=== PATIENT | female | born 1940 | race Caucasian/White ===

== ENCOUNTER 2016-08-16 11:20 | Outpatient (RCR) | payer MEDICARE, OTHER ==
[~2016-08-16] VITALS: Ht 160 cm; Wt 77.1 kg
[~2016-08-16 11:20] MED LIST: ASCO-281 PO; ASCO500T20 PO; ASP325T; ASP81TEC PO; ATRV10T; ATRV10T PO; C250T; CALC600T; CEPH500C PO; CLD600T PO; CYAN10006 PO; CYAN500L PO; DCS100C PO; DULA1.5P2 SQ; EZET10TA5 PO; FENO145T2; FENO48TA2; FRSM40T PO; FURO40TA4; FURO40TA4 PO; LEVO25TA5 PO; LORA1TAB59 PO; LOSA25TA21 PO; LRT10T; LVT.05T PO; METF-380 PO; MNTL10T PO; MTF500T; MTF500T PO; MTP25TSR PO; MULT-963 PO; NF-ESOM40C; NF-ESOM40C PO; NF-PILO5T PO; OMG1KC; OMG1KC PO; OXAZ10CA25 PO; PILOCARPINE HCL 5 MG; POTA10CA43 PO; PROBIOTIC1 EACH PO; RMP2.5C; ROSU5TAB PO; SCR1T1; VENL150C53 PO; VENL150T PO; VENL75CA93 PO; VENL75TA2 PO; VNL75T; VRP240TCR; [UNRECOGNIZED DRUG - OTHER]
== END 2016-11-14 | disposition home or self-care (01) ==
LOC: DSME 11:20
PROVIDERS: ATTEND Nurse Practitioner Family
DX: E11.65 Type 2 diabetes mellitus with hyperglycemia (principal); I10 Essential (primary) hypertension

== ENCOUNTER → 2016-11-06 | Outpatient (CLI) | payer MEDICARE, OTHER ==
[~2016-11-06] VITALS: Ht 160 cm; Wt 75.7 kg
[~2016-11-06] MED LIST changes: +NS IV 1000 ML 1,000 ML IV NR; +NS IV 1000 ML 1,000 ML ONE
[2016-11-06 17:05] VITALS: BP 134/71
[2016-11-06 17:12] VITALS: BP 134/71
[2016-11-06 17:31] VITALS: BP 134/71
--- NOTE | 2016-11-06 17:37 | Diagnostic Imaging Report ---
INDICATION: Malaise, fatigue, dehydration. FINDINGS: The lungs are clear. Heart size and vascularity are within normal limits. There is no failure, effusion, or pneumothorax. No free air beneath the diaphragms. No change from study of 04/11/2016. IMPRESSION: Stable negative chest. Dictated by: Dictated on workstation # [id number]
[2016-11-06 17:38] LABS: MEAN PLATELET VOLUME 9.6 FL (7.4-10.4); RED BLOOD COUNT 4.95 10^6/uL (4.35-5.85); RED CELL DISTRIBUTION WIDTH 15.1 % (10.0-14.5); WHITE BLOOD COUNT 7.2 10^3/uL (4.3-11.0)
[2016-11-06 17:58] LABS: ALBUMIN 4.5 G/DL (3.2-4.5); BILIRUBIN,TOTAL 0.4 MG/DL (0.1-1.0); CALCIUM 10.4 MG/DL (8.5-10.1); CREATININE SERUM 1.18 MG/DL (0.60-1.30); POTASSIUM 3.9 MMOL/L (3.6-5.0); TOTAL PROTEIN 7.3 G/DL (6.4-8.2)
[2016-11-06 18:12] LABS: BILIRUBIN,URINE NEGATIVE (NEGATIVE); KETONES,URINE NEGATIVE (NEGATIVE); LEUKOCYTE ESTERASE ,URINE NEGATIVE (NEGATIVE); NITRITE,URINE NEGATIVE (NEGATIVE); PH,URINE 6.5 (5-9); PROTEIN,URINE NEGATIVE (NEGATIVE); UROBILINOGEN,URINE NORMAL (NORMAL)
[2016-11-06 18:20] LABS: SQUAMOUS EPITHELIAL CELL,UR RARE /HPF
[2016-11-06 18:35] VITALS: BP 134/71
== END ==
LOC: SDC 16:51
PROVIDERS: ATTEND Nurse Practitioner Family
DX: E86.0 Dehydration (principal); R53.81 Other malaise; R53.83 Other fatigue
CPT/HCPCS: 36415; 71020; 80053; 81000; 82607; 83735; 85027; 96361; 96365

== ENCOUNTER → 2018-01-14 | Outpatient (CLI) | payer MEDICARE, OTHER ==
[~2018-01-14] MED LIST changes: -NS IV 1000 ML 1,000 ML IV NR; -NS IV 1000 ML 1,000 ML ONE
== END ==
LOC: CARD 14:38
PROVIDERS: ATTEND Internal Medicine Cardiovascular Disease
DX: R00.2 Palpitations (principal); R06.02 Shortness of breath
CPT/HCPCS: 93225; 93226

== ENCOUNTER 2018-04-16 19:48 | Outpatient (CLI) | payer MEDICARE, OTHER ==
[~2018-04-16 19:48] MED LIST changes: -LOSA25TA21 PO; +LOSA25TA6 PO
== END 2018-04-17 06:15 | disposition home or self-care (01) ==
LOC: SLEEP 19:48
PROVIDERS: ATTEND Family Medicine
DX: G47.33 Obstructive sleep apnea (adult) (pediatric) (principal); G47.36 Sleep related hypoventilation in conditions classified elsewhere; R06.83 Snoring; I10 Essential (primary) hypertension; G47.10 Hypersomnia, unspecified
CPT/HCPCS: 95810

== ENCOUNTER → 2018-05-27 | Outpatient (CLI) | payer MEDICARE, OTHER ==
--- NOTE | 2018-05-27 11:26 | Diagnostic Imaging Report ---
INDICATION: Cough. PA and lateral views of the chest were obtained. FINDINGS: Heart size is normal. Mediastinum is unremarkable. Lungs are clear. There is no pleural effusion or pneumothorax. IMPRESSION: No acute cardiopulmonary abnormality. Mild cardiomegaly. Dictated by: Dictated on workstation # [id number]
== END ==
LOC: RAD 10:49
PROVIDERS: ATTEND Nurse Practitioner Family
DX: I51.7 Cardiomegaly (principal); R05 Cough
CPT/HCPCS: 71046

== ENCOUNTER → 2018-12-23 | Outpatient (CLI) | payer MEDICARE, OTHER ==
[~2018-12-23] MED LIST changes: +LOSA25TA41 PO; -LOSA25TA6 PO
--- NOTE | 2018-12-23 17:12 | Diagnostic Imaging Report ---
INDICATION: Fall. Pain. COMPARISON: None. FINDINGS: Frontal and lateral views of the thoracic spine were obtained. Visualization of the upper thoracic spine is limited on the lateral projection. Alignment and vertebral heights are maintained. There is no fracture or destructive process. There are no large paraspinal masses. Mild multilevel degenerative disease is noted in the thoracic spine. Limited views of the lungs are clear. IMPRESSION: 1. No acute fracture or dislocation of the thoracic spine. 2. Mild multilevel degenerative changes. Dictated by: Dictated on workstation # [id number]
--- NOTE | 2018-12-23 17:14 | Diagnostic Imaging Report ---
INDICATION: Fall. Pain. COMPARISON: None. FINDINGS: Three views of the right ribs were obtained. There is no fracture, dislocation, or other acute bony abnormality identified. Visualized portions of the right lung are clear. The surrounding soft tissues appear unremarkable. No radiopaque foreign bodies are seen. IMPRESSION: No healing or displaced right-sided rib fractures. Dictated by: Dictated on workstation # [id number]
== END ==
LOC: RAD 14:12
PROVIDERS: ATTEND Family Medicine
DX: M47.814 Spondylosis without myelopathy or radiculopathy, thoracic region (principal); R07.81 Pleurodynia; W19.XXXA Unspecified fall, initial encounter
CPT/HCPCS: 71100; 72072

== ENCOUNTER 2019-05-07 12:48 | Outpatient (RCR) | payer MEDICARE, OTHER ==
[~2019-05-07 12:48] MED LIST changes: +CYAN-41 PO; -CYAN10006 PO
== END 2019-08-05 | disposition home or self-care (01) ==
LOC: CARD 12:48
PROVIDERS: ATTEND Physician Assistant
DX: I07.1 Rheumatic tricuspid insufficiency (principal); I10 Essential (primary) hypertension; E78.2 Mixed hyperlipidemia; R00.2 Palpitations
CPT/HCPCS: 93306

== ENCOUNTER 2019-07-18 13:27 | Emergency (ER) | payer MEDICARE, OTHER ==
[~2019-07-18] VITALS: Ht 163 cm; Wt 75.0 kg
--- NOTE | 2019-07-18 13:57 | ED Fall/Injury ---
General Chief Complaint: Trauma-Non Activation Stated Complaint: FALL Nursing Triage Note: Patient reports falling and hitting her head. she is unsure of what caused her to fall or the events that happened after. Source: patient Exam Limitations: no limitations History of Present Illness Date Seen by Provider: Jul 18, 2019 Time Seen by Provider: 13:33 Initial Comments Patient presents to ER by EMS, [place] with chief complaint of a fall. She does not remember the fall. She is never going up to pay a water bill and then woke up to people standing over her. No history of syncope. No chest pain shortness of breath nausea but she did lose continence of bowel and bladder. No history of epilepsy. EMS reports she has a large hematoma over her left eyebrow. She is on aspirin but no other blood thinners. She denies dysuria, fevers, chills. She has a history of cervical spinal surgery with rods placed. Dr. Jacobo was the surgeon. Allergies and Home Medications Allergies Coded Allergies: ramipril (Unverified Allergy, Mild, 01/22/09) No Known Drug Allergies (Verified , 02/26/08) Home Medications Ascorbic Acid 1,000 Mg Tablet, 1,000 MG PO DAILY, (Reported) Aspirin 81 Mg Tablet, 81 MG PO DAILY, (Reported) Cyanocobalamin (Vitamin B-12) 1,000 Mcg Tablet, 2,000 MCG PO DAILY, (Reported) Docusate Sodium 100 Mg Capsule, 100 MG PO HS, (Reported) Dulaglutide 1.5 Mg/0.5 Ml Pen.injctr, 1.5 MG SQ Th, (Reported) Esomeprazole Mag Trihydrate 40 Mg Capsule.dr, 40 MG PO BID, (Reported) Ezetimibe 10 Mg Tablet, 10 MG PO HS, (Reported) Furosemide 40 Mg Tablet, 40 MG PO Q48H, (Reported) Furosemide 40 Mg Tablet, 20 MG PO Q48H, (Reported) TAKES 1/2 (40MG) TABLET Levothyroxine Sodium 25 Mcg Tablet, 25 MCG PO DAILY, (Reported) Loratadine/Pseudoephedrine Sul 1 Each Tab.sr.12h, 1 TAB PO BID, (Reported) Losartan Potassium 25 Mg Tablet, 25 MG PO HS, (Reported) Metoprolol Succinate 25 Mg Tab.sr.24h, 25 MG PO HS, (Reported) Montelukast Sodium 10 Mg Tablet, 10 MG PO DAILY, (Reported) Multivitamin 1 Each Tablet, 1 TAB PO DAILY, (Reported) Alpine 3 Polyunsat Fatty Acids 1,000 Mg Cap, 2,000 MG PO BID, (Reported) TAKES 2 (1000MG) CAPSULES Pilocarpine Hcl 5 Mg Tablet, 5 MG PO BID, (Reported) Potassium Chloride 10 Meq Capsule.sa, 10 MEQ PO DAILY, (Reported) Venlafaxine HCl 75 Mg Cap.er.24h, 75 MG PO DAILY, (Reported) Patient Home Medication List Home Medication List Reviewed: Yes Review of Systems Review of Systems Constitutional: No chills, No fever Eyes: Denies Blindness, Denies Blurred Vision Ears, Nose, Mouth, Throat: denies ear pain, denies ear discharge Respiratory: No cough, No short of breath Cardiovascular: No chest pain, No edema, No Hx of Intervention, No palpitations Gastrointestinal: No abdominal pain, No constipation, No diarrhea, No nausea, No vomiting Genitourinary: No discharge, No dysuria Musculoskeletal: see HPI, back pain; No neck pain Skin: No pruritus, No rash Psychiatric/Neurological: Denies Anxiety, Denies Depressed All Other Systems Reviewed Negative Unless Noted: Yes Past Fmbijbv-Oolcsc-Qpydcd Hx Patient Social History Alcohol Use: Denies Use Recreational Drug Use: No Smoking Status: Never a Smoker Former Smoker, Quit: Apr 11, 1993 Recent Foreign Travel: No Contact w/Someone Who Travel: No Recent Infectious Disease Expo: No Recent Hopitalizations: Yes Immunizations Up To Date Date of Pneumonia Vaccine: Apr 11, 2013 Date of Influenza Vaccine: Sep 07, 2016 Past Medical History Surgeries: Yes (HYSTERECTOMY,R ROTATOR CUFF,IMPLANTS IN GUMS) Respiratory: No Cardiac: Yes Neurological: Yes Reproductive Disorders: No Gastrointestinal: No Colitis Musculoskeletal: Yes Endocrine: Yes Cancer: Yes (breast) Breast Psychosocial: Yes Blood Disorders: Yes Physical Exam Vital Signs Vital Signs - First Documented 07/18/19 13:44 Temp 36.8 Pulse 72 Resp 18 B/P (MAP) 122/65 (84) Pulse Ox 95 Capillary Refill : Less Than 3 Seconds Height, Weight, BMI Height: 5'3.00" Weight: 167lbs. 0.0oz. 75.559696rw; 28.00 BMI Method: General Appearance: WD/WN, mild distress HEENT: PERRL/EOMI (3 mm bilateral, symmetric), normal ENT inspection, TMs normal, pharynx normal, other (negative for Myrick sign or hemotympanum. She has a large soft tissue hematoma on the superior lateral portion of her left orbit) Neck: non-tender, other (c-collar precautions are in place) Cardiovascular: normal peripheral pulses, regular rate, rhythm Respiratory: chest non-tender, lungs clear, normal breath sounds, no respiratory distress, no accessory muscle use Peripheral Pulses: 2+ Dorsalis Pedis (R), 2+ Left Dors-Pedis (L), 2+ Radial Pulses (R), 2+ Radial Pulses (L) Gastrointestinal: normal bowel sounds, non tender, soft Back: normal inspection, vertebral tenderness (mild midline tenderness in the thoracic and upper lumbar spine) Neurologic/Psychiatric: transmission operator II-XII nml as tested, no motor/sensory deficits, alert, normal mood/affect, oriented x 3, other (GCS 14. Eyes closed at rest) Skin: ecchymosis (left orbit) Eden Coma Score Best Eye Response: (3) Open to Voice Best Verbal Response: (5) Oriented Best Motor Response: (6) Obeys Commands Progress/Results/Core Measures Results/Orders Lab Results Laboratory Tests Test 07/18/19 13:50 07/18/19 13:52 Range/Units White Blood Count 5.4 4.3-11.0 10^3/uL Red Blood Count 4.04 L 4.35-5.85 10^6/uL Hemoglobin 11.1 L 11.5-16.0 G/DL Hematocrit 33 L 35-52 % Mean Corpuscular Volume 83 80-99 FL Mean Corpuscular Hemoglobin 27 25-34 PG Mean Corpuscular Hemoglobin Concent 33 32-36 G/DL Red Cell Distribution Width 15.1 H 10.0-14.5 % Platelet Count 291 130-400 10^3/uL Mean Platelet Volume 8.8 7.4-10.4 FL Neutrophils (%) (Auto) 74 42-75 % Lymphocytes (%) (Auto) 18 12-44 % Monocytes (%) (Auto) 7 0-12 % Eosinophils (%) (Auto) 1 0-10 % Basophils (%) (Auto) 1 0-10 % Neutrophils # (Auto) 4.0 1.8-7.8 X 10^3 Lymphocytes # (Auto) 1.0 1.0-4.0 X 10^3 Monocytes # (Auto) 0.4 0.0-1.0 X 10^3 Eosinophils # (Auto) 0.1 0.0-0.3 10^3/uL Basophils # (Auto) 0.0 0.0-0.1 10^3/uL Sodium Level 141 135-145 MMOL/L Potassium Level 4.1 3.6-5.0 MMOL/L Chloride Level 105 98-107 MMOL/L Carbon Dioxide Level 27 21-32 MMOL/L Anion Gap 9 5-14 MMOL/L Blood Urea Nitrogen 15 7-18 MG/DL Creatinine 1.06 0.60-1.30 MG/DL Estimat Glomerular Filtration Rate 50 BUN/Creatinine Ratio 14 Glucose Level 100 70-105 MG/DL Calcium Level 10.0 8.5-10.1 MG/DL Corrected Calcium 9.7 8.5-10.1 MG/DL Total Bilirubin 0.3 0.1-1.0 MG/DL Aspartate Amino Transf (AST/SGOT) 18 5-34 U/L Alanine Aminotransferase (ALT/SGPT) 15 0-55 U/L Alkaline Phosphatase 45 40-136 U/L Troponin I < 0.028 <0.028 NG/ML C-Reactive Protein High Sensitivity 0.11 0.00-0.50 MG/DL B-Type Natriuretic Peptide 38.0 <100.0 PG/ML Total Protein 6.8 6.4-8.2 GM/DL Albumin 4.4 3.2-4.5 GM/DL Serum Alcohol < 10 <10 MG/DL Glucometer 104 70-110 MG/DL My Orders Orders - DANA CANCINO Ct Thoracic/Lumbar Spine Wo (07/18/19 13:50) Ed Iv/Invasive Line Start (07/18/19 13:50) Chest 1 View, Ap/Pa Only (07/18/19 13:50) Alcohol (07/18/19 13:50) BNP (07/18/19 13:50) Cbc With Automated Diff (07/18/19 13:50) Comprehensive Metabolic Panel (07/18/19 13:50) Hs C Reactive Protein (07/18/19 13:50) Drug Screen Stat (Urine) (07/18/19 13:50) Ua Culture If Indicated (07/18/19 13:50) Troponin I (07/18/19 13:50) Ekg Tracing (07/18/19 13:50) Continuous Ekg Monitoring (07/18/19 13:50) Accucheck Stat ONCE (07/18/19 13:50) Ct Head/Face/Cervical Wo (07/18/19 14:03) Dipht,Pertuss(Acell),Tet Adult (Boostrix (07/18/19 15:45) Fentanyl Injection (Sublimaze Injection (07/18/19 15:45) Ondansetron Injection (Zofran Injectio (07/18/19 15:52) Vital Signs/I&O 07/18/19 07/18/19 13:44 16:03 Temp 36.8 Pulse 72 79 Resp 18 12 B/P (MAP) 122/65 (84) 119/68 Pulse Ox 95 98 Blood Pressure Mean: 84 POS Progress Progress Note #1: Time: 14:[address] of the head, C-spine and facial bones. CT of the thoracic and lumbar spine as well as x-ray of the chest. She is resting comfortably with family at her bedside. We'll check urine and blood including a BNP, troponin, EKG as a syncopal workup potentially. Unknown whether she had a syncopal episode and then fell or she fell and then had a syncopal episode. No one saw any seizure like activity. Progress Note #2: Time: 15:30 Progress Note C-collar removed by clinical and radiologic exam. Patient is still neurovascularly intact GCS 15. Family at bedside and updated. Discussed transit to [place] for neurosurgery consult and she agrees to do this. Dr. García is the surgeon who did her neck. She's having a headache related to the swelling and bruising of her left face over to give her an ice pack and a 50 g dose of fentanyl. We will get her up-to-date with her tetanus shot. We'll clean up the small skin tear on her left hand ulnar side. Initial ECG Impression Date: Jul 18, 2019 Initial ECG Impression Time: 13:45 Initial ECG Rate: 81 Initial ECG Intervals: PA (252) Initial ECG Impression: Nonspecific Changes Comment First-degree AV block with QTC of [address] elevation or depression. Diagnostic Imaging Diagonstic Imaging: Xray Plain Films/CT/US/NM/MRI: chest (1v) Comments NAME: NICKOLAS DEE [facility] REC#: [id number] PT STATUS: REG ER : 1940 PHYSICIAN: DANA CANCINO MD ADMIT DATE: 07/18/19/ER Signed POSDate of Exam:07/18/19 CHEST 1 VIEW, AP/PA ONLY EXAMINATION: Chest 1 view HISTORY: Fall. Mid thoracic pain. COMPARISON: 05/27/2018. FINDINGS: The lung volumes are normal. No focal consolidation is seen. No large pleural effusion or pneumothorax is seen. The cardiomediastinal silhouette is normal in size and contour. No acute osseous abnormality is seen. IMPRESSION: 1. No acute pleuroparenchymal process. Dictated by: Dictated on workstation # [id number] Dict: 07/18/19 1504 Trans: 07/18/19 1504 [facility] [id number] Interpreted by: HÉCTOR ROJAS DO Electronically signed by: HÉCTOR ROJAS DO 07/18/19 1504 Reviewed: Reviewed by Nc Diagonstic Imaging: CT (without IV contrast) Plain Films/CT/US/NM/MRI: facial bones, c-spine, head Comments NAME: NICKOLAS DEE [facility] REC#: [id number] PT STATUS: [facility] ER : 1940 PHYSICIAN: DANA CANCINO MD ADMIT DATE: 07/18/19/ER Draft POSDate of Exam:07/18/19 CT HEAD/FACE/CERVICAL WO PROCEDURE: CT head, face, and cervical spine without contrast. TECHNIQUE: Multiple contiguous axial images were obtained through the head, neck, and facial bones without the use of intravenous contrast. Sagittal and coronal reformations through the cervical spine and facial bones were also performed. Auto Exposure Controls were utilized during the CT exam to meet ALARA standards for radiation dose reduction. INDICATION: Fall. Head and neck injury. Facial pain. COMPARISON: None. CT head: There is a tiny bilateral superior parietal subarachnoid hemorrhage. There is likely a tiny focus of subarachnoid hemorrhage in the left anterior frontal lobe. The ventricular size is normal. No extra-axial fluid collection is identified. There is no midline shift or mass effect. Large left frontal scalp hematoma is seen. There is no underlying skull fracture. Visualized globes are intact. Paranasal sinuses and mastoids are clear. IMPRESSION: 1. Left frontal and biparietal trace subarachnoid hemorrhage. The pattern is compatible with trauma. 2. No midline shift, mass effect or extra-axial fluid collection. 3. No skull fracture. CT face: Nasal septum is well aligned. The orbits are symmetric. No facial fracture is seen. There is minimal mucosal thickening in the maxillary sinuses. The mandible is intact. IMPRESSION: No facial fracture identified. CT cervical spine: Alignment is normal. There are postoperative changes involving the left lamina at C4, C5 and C6. Moderate degenerative changes are present. There is no osseous lesion or paraspinous mass. IMPRESSION: No traumatic malalignment or fracture. Report called to the Emergency Room. Dictated on workstation # [id number] Dict: 07/18/19 1446 Trans: 07/18/19 1457 [facility] [id number] Interpreted by: SABINO KEYS Electronically signed by: Reviewed: Reviewed by Me Diagonstic Imaging: CT Plain Films/CT/US/NM/MRI: other (thoracolumbar spine) Comments NAME: NICKOLAS DEE [facility] REC#: [id number] PT STATUS: REG ER : 1940 PHYSICIAN: DANA CANCINO MD ADMIT DATE: 07/18/19/ER Signed POSDate of Exam:07/18/19 CHEST 1 VIEW, AP/PA ONLY EXAMINATION: Chest 1 view HISTORY: Fall. Mid thoracic pain. COMPARISON: 05/27/2018. FINDINGS: The lung volumes are normal. No focal consolidation is seen. No large pleural effusion or pneumothorax is seen. The cardiomediastinal silhouette is normal in size and contour. No acute osseous abnormality is seen. IMPRESSION: 1. No acute pleuroparenchymal process. Dictated by: Dictated on workstation # [id number] Dict: 07/18/19 1504 Trans: 07/18/19 1504 PC1 [id number] Interpreted by: HÉCTOR ROJAS DO Electronically signed by: HÉCTOR ROJAS DO 07/18/19 1504 Reviewed: Reviewed by Me Consults : Consulting Physician: JULIÁN DE PAZ MD Consults Notes Discussed case lab imaging findings with Dr. De Paz, trauma surgery and he agrees with transfer to appropriate facility with neurology such as [facility]. Departure Impression Primary Impression: Fall Qualified Codes: W19.XXXA - Unspecified fall, initial encounter Additional Impressions: Amnesia (retrograde) Syncope Qualified Codes: R55 - Syncope and collapse Traumatic hematoma of face Qualified Codes: S00.83XA - Contusion of other part of head, initial encounter Disposition: 02 XFER SHT-TRM HOSP Condition: Stable Transfer Transfer Reason: Exceeds level of care (Neurosurgery Consult) Time Spoke to Accepting Phy: 15:20 Transfer Progress Notes 1505: Paged Dr García, Neurosurgery. [facility] [place] 1512: Discussed with [facility] and they accepted to ER. ED Dr Edmond. 1520: Discussed case with Dr. Germain, ED doctor and he agrees to accept the patient. Transfer Time: 16:20 [place] [facility] [place] Method of Transfer: [facility] Departure-Patient Inst. Referrals: VINOD SERNA MD (PCP/Family) Primary Care Physician DANA CANCINO Jul 18, 2019 13:57 POS
[2019-07-18 14:01] LABS: BASOPHILS % (AUTO) 1 % (0-10); EOSINOPHILS # (AUTO) 0.1 10^3/uL (0.0-0.3); EOSINOPHILS % (AUTO) 1 % (0-10); HEMATOCRIT 33 % (35-52); HEMOGLOBIN 11.1 G/DL (11.5-16.0); LYMPHOCYTES % (AUTO) 18 % (12-44); MEAN CORPUSCULAR HGB CONC 33 G/DL (32-36); MEAN CORPUSCULAR VOLUME 83 FL (80-99); MEAN PLATELET VOLUME 8.8 FL (7.4-10.4); MONOCYTES # (AUTO) 0.4 X 10^3 (0.0-1.0); MONOCYTES % (AUTO) 7 % (0-12); NEUTROPHILS % (AUTO) 74 % (42-75); PLATELET COUNT 291 10^3/uL (130-400); RED CELL DISTRIBUTION WIDTH 15.1 % (10.0-14.5); WHITE BLOOD COUNT 5.4 10^3/uL (4.3-11.0)
[2019-07-18 14:06] LABS: MEAN CORPUSCULAR HEMOGLOBIN 27 PG (25-34)
[2019-07-18 14:23] LABS: ALANINE AMINOTRANSFERASE 15 U/L (0-55); ALBUMIN 4.4 GM/DL (3.2-4.5); ALKALINE PHOSPHATASE 45 U/L (40-136); BILIRUBIN,TOTAL 0.3 MG/DL (0.1-1.0); BUN/CREATININE RATIO 14; CARBON DIOXIDE 27 MMOL/L (21-32); CHLORIDE 105 MMOL/L (98-107); CREATININE SERUM 1.06 MG/DL (0.60-1.30); GFR ESTIMATED 50; GLUCOSE 100 MG/DL (70-105); POTASSIUM 4.1 MMOL/L (3.6-5.0); SODIUM 141 MMOL/L (135-145); TOTAL PROTEIN 6.8 GM/DL (6.4-8.2)
--- NOTE | 2019-07-18 14:58 | Diagnostic Imaging Report ---
PROCEDURE: CT head, face, and cervical spine without contrast. TECHNIQUE: Multiple contiguous axial images were obtained through the head, neck, and facial bones without the use of intravenous contrast. Sagittal and coronal reformations through the cervical spine and facial bones were also performed. Auto Exposure Controls were utilized during the CT exam to meet ALARA standards for radiation dose reduction. INDICATION: Fall. Head and neck injury. Facial pain. COMPARISON: None. CT head: There is a tiny bilateral superior parietal subarachnoid hemorrhage. There is likely a tiny focus of subarachnoid hemorrhage in the left anterior frontal lobe. The ventricular size is normal. No extra-axial fluid collection is identified. There is no midline shift or mass effect. Large left frontal scalp hematoma is seen. There is no underlying skull fracture. Visualized globes are intact. Paranasal sinuses and mastoids are clear. IMPRESSION: 1. Left frontal and biparietal trace subarachnoid hemorrhage. The pattern is compatible with trauma. 2. No midline shift, mass effect or extra-axial fluid collection. 3. No skull fracture. CT face: Nasal septum is well aligned. The orbits are symmetric. No facial fracture is seen. There is minimal mucosal thickening in the maxillary sinuses. The mandible is intact. IMPRESSION: No facial fracture identified. CT cervical spine: Alignment is normal. There are postoperative changes involving the left lamina at C4, C5 and C6. Moderate degenerative changes are present. There is no osseous lesion or paraspinous mass. IMPRESSION: No traumatic malalignment or fracture. Report called to the Emergency Room. Dictated by: Dictated on workstation # [id number]
--- NOTE | 2019-07-18 15:06 | Diagnostic Imaging Report ---
EXAMINATION: Chest 1 view HISTORY: Fall. Mid thoracic pain. COMPARISON: 05/27/2018. FINDINGS: The lung volumes are normal. No focal consolidation is seen. No large pleural effusion or pneumothorax is seen. The cardiomediastinal silhouette is normal in size and contour. No acute osseous abnormality is seen. IMPRESSION: 1. No acute pleuroparenchymal process. Dictated by: Dictated on workstation # [id number]
--- NOTE | 2019-07-18 15:23 | Diagnostic Imaging Report ---
PROCEDURE: CT thoracic and lumbar spine without contrast. TECHNIQUE: Multiple contiguous axial images were obtained through the thoracic and lumbar spine without the use of intravenous contrast. Sagittal and coronal reformations were then performed. INDICATION: Fall. Back pain. Subarachnoid hemorrhage. COMPARISON: None. FINDINGS: Alignment of the thoracolumbar column is normal. There is no subluxation or fracture. No osseous lesion is seen. Postoperative changes are seen involving the lamina on the left at C7. No paraspinous mass is identified. Central canal is grossly normal. [id number] degenerative changes are present. The SI joints are symmetric. IMPRESSION: No traumatic malalignment or fracture. Please note sagittal and coronal images of the lumbar spine were not provided. If there is concern for a lumbar compression deformity, consider additional imaging. Dictated by: Dictated on workstation # [id number]
[2019-07-18] MEDS ORDERED: fentaNYL INJECTION 100 MCG/2 ML AMP IVP ONE (15:45)
[2019-07-18] MEDS ORDERED: TETANUS,DIPTH,PERTUSS P/F (BOOSTRIX) 0.5 ML VIAL IM ONE (15:45)
[2019-07-18] MEDS ORDERED: ONDANSETRON 4 MG/2 ML (SDV) Z0FRAN ONE (15:52)
[2019-07-18 16:03] VITALS: BP 119/68
--- OUTSIDE RECORDS SUMMARY | 2019-08-12 22:37 | XMS REPORT | CCD ---
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 Name Role Phone PP Unavailable CCM Unavailable Summary Purpose Interface Exchange Insurance Providers Payer name Policy type / Coverage type Covered libertarian ID Effective Begin Date Effective End Date WPS Medicare Part B Medicare Part B [id number] Unknown GEHA Medicare Part B [id number] Unknown Family history Father Diagnosis Age At Onset No Family Disease Entered N/A Daughter Diagnosis Age At Onset No Family Disease Entered N/A Daughter Diagnosis Age At Onset No Family Disease Entered N/A Daughter Diagnosis Age At Onset No Family Disease Entered N/A Mother Diagnosis Age At Onset No Family Disease Entered N/A Sister Diagnosis Age At Onset No Family Disease Entered N/A Brother Diagnosis Age At Onset No Family Disease Entered N/A Sister Diagnosis Age At Onset No Family Disease Entered N/A Social History Social History Element Codes Description Effective Dates Marital status Unknown W idowed 11/23/2015 Living arrangements Unknown House 06/17/2011 Employment Unknown Retir ed 06/17/2011 Allergies, Adverse Reactions, Alerts Substance Reaction Codes Entered Date Inactivated Date Status * NO KNOWN DRUG JOLENE RGIES Unknown 06/05/2011 No Inactive Date Active * NO KNOWN FOOD JOLENE RGIES Unknown 06/09/2012 No Inactive Date Active Seasonal Unknown 04/14/2014 No In active Date Active Past Medical History Illness Codes Condition Status Onset Date Resolved Date Essential (primary) hypertension ICD-9: 401.1 ICD-10: I10 Active 11/15/2016 Unknown Major depressive dis order, recurrent, mild ICD-9: 296.31 ICD-10: F33.0 Active 02/16/2019 Unknown Other allergic rhinitis ICD-9: 477.9 ICD-10: J30.89 Active 02/16/2019 Unknown 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 ICD-9: 250.00 ICD-10: E11.9 Active 11/15/2016 Unknown Benign paroxysmal ve rtigo, bilateral ICD-9: 386.11 ICD-10: H81.13 Active 02/10/2019 Unknown Dizziness and giddiness ICD-9: 780.4 ICD-10: R42 Active 02/10/2019 Unknown Muscle spasm of back ICD-9: 724.8 ICD-10: M62.830 Active 02/10/2019 Unknown Other allergic rhinitis ICD-9: 477.8 ICD-10: J30.89 Active 02/10/2019 Unknown Pain in thoracic spine ICD-9: 724.1 ICD-10: M54.6 Active 12/23/2018 Unknown Pleurodynia ICD-9: 786.50 ICD-10: R07.81 Active 12/23/2018 Unknown Gastro-esophageal re flux disease without esophagitis ICD-9: 530.81 ICD-10: K21.9 Active 05/26/2018 Unknown Type 2 diabetes quinten itus with hyperglycemia ICD-9: 250.02 ICD-10: E11.65 Active 04/14/2014 Unknown Cough ICD-9: 786.2 ICD-10: R05 Active 05/26/2018 Unknown 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 Active 04/01/2018 Unknown Obstructive sleep ap lorie (adult) (pediatric) ICD-9: 327.23 ICD-10: G47.33 Active 04/01/2018 Unknown Candidal stomatitis ICD- 9: 112.0 ICD-10: B37.0 Active 03/29/2017 Unknown Mixed hyperlipidemia ICD-9: 272.4 ICD-10: E78.2 Active 09/18/2017 Unknown Encounter for immuni zation ICD-9: V06.6 ICD-10: Z23 Active 05/02/2017 Unknown Hypothyroidism, unsp ecified ICD-9: 244.9 ICD-10: E03.9 Active 06/03/2016 Unknown Other fatigue ICD-9: 780.79 ICD-10: R53.83 Active 11/06/2016 Unknown Other malaise ICD-9: 780.79 ICD-10: R53.81 Active 11/06/2016 Unknown Weakness ICD-9: 780.79 ICD-10: R53.1 Active 11/06/2016 Unknown Essential (primary) hypertension ICD-9: 401.9 ICD-10: I10 Active 04/14/2014 Unknown Gastroparesis ICD-9: 536.3 ICD-10: K31.84 Active 07/01/2016 Unknown Adjustment disorder with mixed anxiety and depressed mood ICD-9: 309.28 ICD-10: F43.23 Active 11/22/2015 Unknown Panic disorder [epis odic paroxysmal anxiety] without agoraphobia ICD-9: 300.01 ICD-10: F41.0 Active 10/13/2015 Unknown ESOPHAGEAL REFLUX ICD-9: 530.81 Active 03/30/2015 Unknown DEPRESSIVE DISORDER NEC ICD-9: 311 Active 08/31/2014 Unknown Abdominal pain ICD-9: 789.00 Active 08/10/2014 Unknown Constipation - funct ional ICD-9: 564.09 Active Unknown DIABETES TYPE II ICD-9: 250.00 Active 08/10/2014 Unknown Chronic allergic rhi nitis ICD-9: 477.9 Active 04/19 Unknown Flu vaccine need ICD-9: V04.81 Active 05/06/2014 Unknown DM W/O COMPLICATION TYPE II, UNCONTROLLED ICD-9: 250.02 Active 04/14/2014 Unknown ESSENTIAL HYPERTENSION ICD-9: 401.9 Active 04/14/2014 Unknown GENERALIZED ANXIETY DISEASE ICD-9: 300.02 Active Unknown Neck pain ICD-9: 723.1 Active 04/14/2014 Unknow n Iliotibial band synd lukas ICD-9: 728.89 Active Unknown ENCNTR LONG-RX USE NEC ICD-9: V58.69 Active 01/26/2013 Unknown Polymyalgia ICD-9: 725 Active 12/23/2012 Unknow n Bruising ICD-9: 924.9 Active 10/22/2012 Unknow n Hip pain ICD-9: 719.45 Active 10/22/2012 Unknow n Acute sinusitis ICD-9: 461.9 Active 02/12/2012 Unknown Hemorrhoids ICD-9: 455.6 Active 02/05/2012 Unknow n Otalgia of both ears ICD-9: 388.70 Active 02/05/2012 Unknown Rectal or anal pain ICD- 9: 569.42 Active 02/05/2012 Unknown Dysuria ICD-9: 788.1 Active 11/14/2011 Unknow n FEVER NOS ICD-9: 780.60 Active 10/08/2011 Unknow n IMPACTED CERUMEN ICD-9: 380.4 Active 08/28/2011 Unknown Recurrent sinusitis ICD- 9: 473.9 Active 08/28/2011 Unknown Back pain ICD-9: 724.5 Active 08/27/2011 Unknow n Acute maxillary sinu sitis ICD-9: 461.0 Inactive Unknown Cough ICD-9: 786.2 Inactive 08/27/2011 Unkn own HYPERLIPIDEMIA ICD-9: 272.4 Active 07/24/2011 Unknown Hematochezia ICD-9: 578.1 Active 06/19/2011 Unknown Breast cancer Unknown Active 06/05/2011 Unknow n Depression Unknown Active 06/05/2011 Unknow n Diabetes Unknown Active 06/05/2011 Unknow n Gastroesophageal ref lux disease Unknown Active 1 Unknown Hyperlipidemia Unknown Active 06/05/2011 Unknow n Hypertension Unknown Active 06/05/2011 Unknow n Hypothryroidism Unknown Active 06/05/2011 Unknow n Migraines Unknown Active 06/05/2011 Unknow n other Unknown Active 06/05/2011 Unknow n shingles Unknown Active 06/05/2011 Unknow n Peripheral neuropath y, secondary to drugs or chemicals ICD-9: 357.7 Active 06/05/2011 Unknown Problems Condition Codes Effectiv e Dates Condition Status Essential (primary) hypertension ICD-9: 401.1 ICD-10: I10 11/15/2016 Active Major depressive dis order, recurrent, mild ICD-9: 296.31 ICD-10: F33.0 02/16/2019 Active Other allergic rhinitis ICD-9: 477.9 ICD-10: J30.89 02/16/2019 Active 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 ICD-9: 250.00 ICD-10: E11.9 11/15/2016 Active Benign paroxysmal ve rtigo, bilateral ICD-9: 386.11 ICD-10: H81.13 02/10/2019 Active Dizziness and giddiness ICD-9: 780.4 ICD-10: R42 02/10/2019 Active Muscle spasm of back ICD-9: 724.8 ICD-10: M62.830 02/10/2019 Active Other allergic rhinitis ICD-9: 477.8 ICD-10: J30.89 02/10/2019 Active Pain in thoracic spine ICD-9: 724.1 ICD-10: M54.6 12/23/2018 Active Pleurodynia ICD-9: 786.50 ICD-10: R07.81 12/23/2018 Active Gastro-esophageal re flux disease without esophagitis ICD-9: 530.81 ICD-10: K21.9 05/26/2018 Active Type 2 diabetes quinten itus with hyperglycemia ICD-9: 250.02 ICD-10: E11.65 04/14/2014 Active Cough ICD-9: 786.2 ICD-10: R05 05/26/2018 Active 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 04/01/2018 Active Obstructive sleep ap lorie (adult) (pediatric) ICD-9: 327.23 ICD-10: G47.33 04/01/2018 Active Candidal stomatitis ICD- 9: 112.0 ICD-10: B37.0 03/29/2017 Active Mixed hyperlipidemia ICD-9: 272.4 ICD-10: E78.2 09/18/2017 Active Encounter for immuni zation ICD-9: V06.6 ICD-10: Z23 05/02/2017 Active Hypothyroidism, unsp ecified ICD-9: 244.9 ICD-10: E03.9 06/03/2016 Active Other fatigue ICD-9: 780.79 ICD-10: R53.83 11/06/2016 Active Other malaise ICD-9: 780.79 ICD-10: R53.81 11/06/2016 Active Weakness ICD-9: 780.79 ICD-10: R53.1 11/06/2016 Active Essential (primary) hypertension ICD-9: 401.9 ICD-10: I10 04/14/2014 Active Gastroparesis ICD-9: 536.3 ICD-10: K31.84 07/01/2016 Active Adjustment disorder with mixed anxiety and depressed mood ICD-9: 309.28 ICD-10: F43.23 11/22/2015 Active Panic disorder [epis odic paroxysmal anxiety] without agoraphobia ICD-9: 300.01 ICD-10: F41.0 10/13/2015 Active ESOPHAGEAL REFLUX ICD-9: 530.81 03/30/2015 Active DEPRESSIVE DISORDER NEC ICD-9: 311 08/31/2014 Active Abdominal pain ICD-9: 789.00 08/10/2014 Active Constipation - funct ional ICD-9: 564.09 08/10/2014 Active DIABETES TYPE II ICD-9: 250.00 08/10/2014 Active Chronic allergic rhi nitis ICD-9: 477.9 05/06/2014 Active Flu vaccine need ICD-9: V04.81 05/06/2014 Active DM W/O COMPLICATION TYPE II, UNCONTROLLED ICD-9: 250.02 04/14/2014 Active ESSENTIAL HYPERTENSION ICD-9: 401.9 04/14/2014 Active GENERALIZED ANXIETY DISEASE ICD-9: 300.02 04/14/2014 Active Neck pain ICD-9: 723.1 04/14/2014 Active Iliotibial band synd lukas ICD-9: 728.89 11/10/2013 Active ENCNTR LONG-RX USE NEC ICD-9: V58.69 01/26/2013 Active Polymyalgia ICD-9: 725 12/23/2012 Active Bruising ICD-9: 924.9 10/22/2012 Active Hip pain ICD-9: 719.45 10/22/2012 Active Acute sinusitis ICD-9: 461.9 02/12/2012 Active Hemorrhoids ICD-9: 455.6 02/05/2012 Active Otalgia of both ears ICD-9: 388.70 02/05/2012 Active Rectal or anal pain ICD- 9: 569.42 02/05/2012 Active Dysuria ICD-9: 788.1 11/14/2011 Active FEVER NOS ICD-9: 780.60 10/08/2011 Active IMPACTED CERUMEN ICD-9: 380.4 08/28/2011 Active Recurrent sinusitis ICD- 9: 473.9 08/28/2011 Active Back pain ICD-9: 724.5 08/27/2011 Active Acute maxillary sinu sitis ICD-9: 461.0 08/27/2011 Inactive Cough ICD-9: 786.2 08/27/2011 Inactive HYPERLIPIDEMIA ICD-9: 272.4 07/24/2011 Active Hematochezia ICD-9: 578.1 06/19/2011 Active Breast cancer Unknown 06/05/2011 Active Depression Unknown 06/05/2011 Active Diabetes Unknown 06/05/2011 Active Gastroesophageal ref lux disease Unknown 06/05/2011 Activ e Hyperlipidemia Unknown 06/05/2011 Active Hypertension Unknown 06/05/2011 Active Hypothryroidism Unknown 06/05/2011 Active Migraines Unknown 06/05/2011 Active other Unknown 06/05/2011 Active shingles Unknown 06/05/2011 Active Peripheral neuropath y, secondary to drugs or chemicals ICD-9: 357.7 06/05/2011 Active Medications Medication Codes Instruc tions Start Date Stop Date Sta tus Fill Instructions Trulicity 1.5 mg/0.5 mL subcutaneous pen injector RxNorm: 6379828 Milliliter(s) INJECT 0.5ML SUBCUTANEOUSLY EVERY WEEK 04/09/2019 07/01/2020 Active 90 day supply fluticasone propiona te 50 mcg/actuation nasal spray,suspension RxNorm: 5379063 [place] USE ONE SPRAY IN EACH NOSTRIL TWICE A DAY 04/09/2019 04/02/2020 Active 90 day supply cyclobenzaprine 5 mg tablet RxNorm: 467407 1 Tablet(s) PO TID x 3 days then as needed for muscle spasms 02/10/2019 02/19/2019 Inactive meclizine 25 mg tablet RxNorm: 980471 1 Tablet(s) PO TID as needed Dizziness 02/10/2019 02/19/2019 In active prednisone 20 mg tablet RxNorm: 676895 2 Tablet(s) PO daily 02/10/2019 02/14/2019 Inactive fluticasone propiona te 50 mcg/actuation nasal spray,suspension RxNorm: 1018146 [place] USE ONE SPRAY IN EACH NOSTRIL TWICE A DAY 02/10/2019 04/08/2019 Inactive levothyroxine 25 mcg tablet RxNorm: 546977 Tablet(s) TAKE 1 TABL ET DAILY 01/16/2019 07/14/2019 Ac tive mesalamine 800 mg ta blet,delayed release RxNorm: 842896 Tablet(s) TAKE 1 TABL ET TWICE A DAY 01/15/2019 01/09/2020 Active metformin 500 mg tablet RxNorm: 826313 TAKE 1 AND 1/2 TABLETS TWICE DAILY 01/15/2019 01/09/2020 Ac tive Nexium 40 mg capsule ,delayed release RxNorm: 556790 TAKE 1 CAPSULE TWICE DAILY 01/15/2019 01/09/2020 Ac tive Lialda 1.2 gram tabl et,delayed release RxNorm: 502594 2 Tablet(s) PO daily 12/23/2018 No Stop Date Active Kenalog 40 mg/mL elizabeth pension for injection RxNorm: 8978708 Milliliter(s) Inj 12/23/2018 12/23/2018 In active cyclobenzaprine 5 mg tablet RxNorm: 326048 1 Tablet(s) PO TID x 3 days then as needed for muscle spasms 12/23/2018 01/01/2019 Inactive furosemide 40 mg tablet RxNorm: 894028 TAKE 1 TABLET DAILY 12/01/2018 08/27/2019 Active Effexor XR 75 mg cap alma,extended release RxNorm: 969957 1 Capsule(s) PO daily 09/16/2018 09/10/2019 Ac tive levothyroxine 25 mcg tablet RxNorm: 123444 Tablet(s) TAKE 1 TABL ET DAILY 08/26/2018 01/15/2019 In active montelukast 10 mg ta blet RxNorm: 049125 TAKE 1 TABLET DAILY 07/21/2018 07/15/2019 Active Augmentin 500 mg-125 mg tablet RxNorm: 745296 1 Tablet(s) PO TID 05/27/2018 05/26/2018 Inactive Augmentin 500 mg-125 mg tablet RxNorm: 232917 1 Tablet(s) PO TID 05/27/2018 06/02/2018 Inactive Kenalog 40 mg/mL elizabeth pension for injection RxNorm: 0086422 1 Milliliter(s) Inj 05/26/2018 05/26/2018 In active pilocarpine 5 mg tablet RxNorm: 5540567 Tablet(s) TAKE 4 TABLETS DAILY 04/22/2018 07/15/2019 Ac tive Trulicity 1.5 mg/0.5 mL subcutaneous pen injector RxNorm: 0579230 INJECT 0.5ML SUBCUTANEOUSLY EVERY WEEK 02/24/2018 04/08/2019 Inactive levothyroxine 25 mcg tablet RxNorm: 728827 TAKE 1 TABLET DAILY 02/13/2018 08/11/2018 Inactive mesalamine 800 mg ta blet,delayed release RxNorm: 126573 TAKE 1 TABLET TWICE A DAY 12/10/2017 12/03/2018 In active metformin 500 mg tablet RxNorm: 472930 1.5 Tablet(s) PO BID 11/25/2017 11/19/2018 Inactive levothyroxine 25 mcg tablet RxNorm: 889983 TAKE 1 TABLET DAILY 11/19/2017 02/12/2018 Inactive Nexium 40 mg capsule ,delayed release RxNorm: 580827 TAKE 1 CAPSULE TWICE DAILY 11/15/2017 11/09/2018 In active Effexor XR 75 mg cap alma,extended release RxNorm: 030969 1 Capsule(s) PO daily 10/14/2017 09/15/2018 In active Bactroban 2 % topica l cream RxNorm: 733098 1 Application TOP TID 09/18/2017 09/27/2017 Inactive nystatin 100,000 uni t/mL oral suspension RxNorm: 328207 5 Milliliter(s) PO TI D 09/18/2017 09/27/2017 In active oxazepam 10 mg capsule RxNorm: 699618 1 Capsule(s) PO TID as needed anxiety 09/02/2017 02/28/2018 In active oxazepam 10 mg capsule RxNorm: 033777 1 Capsule(s) PO TID as needed anxiety 08/29/2017 09/01/2017 In active fluticasone 50 mcg/a ctuation nasal spray,suspension RxNorm: 7752809 [place] USE ONE SPRAY IN EACH NOSTRIL TWICE A DAY 08/29/2017 12/26/2017 Inactive furosemide 40 mg tablet RxNorm: 088480 TAKE 1 TABLET DAILY 08/26/2017 08/20/2018 Inactive pilocarpine 5 mg tablet RxNorm: 6732398 TAKE 4 TABLETS DAILY 08/26/2017 04/21/2018 Inactive metformin 500 mg tablet RxNorm: 685531 TAKE 1 TABLET TWICE A DAY 08/20/2017 11/24/2017 Inactive Claritin-D 12 Hour 5 mg-120 mg tablet,extended release RxNorm: 6209454 Tablet(s) TAKE ONE (1) TABLET BY MOUTH TWICE DAILY 07/29/2017 12/22/2018 Inactive fluticasone 50 mcg/a ctuation nasal spray,suspension RxNorm: 4363923 [place] USE ONE SPRAY IN EACH NOSTRIL TWICE A DAY 07/25/2017 07/24/2017 Inactive fluticasone 50 mcg/a ctuation nasal spray,suspension RxNorm: 8299775 [place] USE ONE SPRAY IN EACH NOSTRIL TWICE A DAY 07/25/2017 08/28/2017 Inactive fluticasone 50 mcg/a ctuation nasal spray,suspension RxNorm: 5180757 [place] USE ONE SPRAY IN EACH NOSTRIL TWICE A DAY 06/04/2017 07/24/2017 Inactive montelukast 10 mg ta blet RxNorm: 819418 TAKE 1 TABLET DAILY 06/03/2017 05/28/2018 Inactive levothyroxine 25 mcg tablet RxNorm: 825778 TAKE 1 TABLET DAILY 05/13/2017 11/08/2017 Inactive Voltaren 1 % topical gel RxNorm: 901542 2 Gram(s) TOP QID 05/02/2017 2017 Inactive nystatin 100,000 uni t/mL oral suspension RxNorm: 796281 5 Milliliter(s) PO QI D 03/29/2017 04/11/2017 In active Diflucan 150 mg tablet RxNorm: 743567 1 Tablet(s) PO daily 03/29/2017 05/01/2017 Inactive Trulicity 1.5 mg/0.5 mL subcutaneous pen injector RxNorm: 2518312 INJECT 0.5ML SUBCUTANEOUSLY EVERY WEEK 02/28/2017 01/29/2018 Inactive levothyroxine 25 mcg tablet RxNorm: 717842 1 Tablet(s) PO daily 11/19/2016 11/18/2016 Inactive levothyroxine 25 mcg tablet RxNorm: 677658 1 Tablet(s) PO daily 11/19/2016 05/12/2017 Inactive Claritin 10 mg tablet RxNorm: 166704 1 Tablet(s) PO daily 11/07/2016 11/06/2016 Inactive Claritin 10 mg tablet RxNorm: 796184 1 Tablet(s) PO daily 11/07/2016 12/06/2016 Inactive Zithromax Z-Ankit 250 mg tablet RxNorm: 587689 1 Tablet(s) PO UD 11/07/2016 05/01/2017 Inactive oxazepam 10 mg capsule RxNorm: 792499 1 Capsule(s) PO TID as needed anxiety 11/01/2016 12/30/2016 In active Nexium 40 mg capsule ,delayed release RxNorm: 725381 1 Capsule(s) PO BID 10/25/2016 10/19/2017 In active Claritin-D 12 Hour 5 mg-120 mg tablet,extended release RxNorm: 1576718 Tablet(s) TAKE ONE (1) TABLET BY MOUTH TWICE DAILY 10/25/2016 12/23/2016 Inactive mesalamine 800 mg ta blet,delayed release RxNorm: 861051 1 Tablet(s) PO BID 09/18/2016 09/17/2016 In active mesalamine 800 mg ta blet,delayed release RxNorm: 858752 1 Tablet(s) PO BID 09/18/2016 06/14/2017 In active Effexor XR 75 mg cap alma,extended release RxNorm: 085967 1 Capsule(s) PO daily 08/30/2016 08/24/2017 In active metformin 500 mg tablet RxNorm: 081564 1 Tablet(s) PO BID 08/17/2016 08/11/2017 Inactive oxazepam 10 mg capsule RxNorm: 299646 1 Capsule(s) PO TID as needed anxiety 08/17/2016 10/15/2016 In active Claritin-D 12 Hour 5 mg-120 mg tablet,extended release RxNorm: 7857391 TAKE ONE (1) TABLET BY MOUTH TWICE DAILY... 08/16/2016 10/24/2016 Inactive furosemide 40 mg tablet RxNorm: 715582 1 Tablet(s) daily TAKE 1 TABLET DAILY 08/14/2016 08/08/2017 In active Effexor XR 75 mg cap alma,extended release RxNorm: 423828 1 Capsule(s) PO daily 08/14/2016 08/29/2016 In active pilocarpine 5 mg tablet RxNorm: 5737399 4 Tablet(s) PO daily TAKE 4 TABLETS YARI Y 08/14/2016 08/08/2017 In active metoclopramide 5 mg tablet RxNorm: 295140 1/2 to 1 Tablet(s) PO TID for nause and GI dysmotility 07/02/2016 11/14/2016 Inactive Effexor XR 75 mg cap alma,extended release RxNorm: 753417 1 Capsule(s) PO daily 07/02/2016 08/13/2016 In active metformin 500 mg tablet RxNorm: 971543 1/2 TABLET(S) PO BID X2 WEEKS THEN INCRE ASE TO 1 TABLET PO BID THEREAFTER 06/26/2016 08/16/2016 Inactive 30 day supply Claritin-D 12 Hour 5 mg-120 mg tablet,extended release RxNorm: 3321164 1 Tablet(s) PO BID 06/18/2016 08/15/2016 Inactive montelukast 10 mg ta blet RxNorm: 939544 1 Tablet(s) PO daily 06/13/2016 06/02/2017 Inactive metformin 500 mg tablet RxNorm: 643251 1/2 Tablet(s) PO BID x2 weeks then incre ase to 1 Tablet PO BID thereafter 06/07/2016 06/06/2016 Inactive 30 day supply metformin 500 mg tablet RxNorm: 617691 1/2 Tablet(s) PO BID x2 weeks then incre ase to 1 Tablet PO BID thereafter 06/07/2016 06/25/2016 Inactive 30 day supply Diflucan 150 mg tablet RxNorm: 841832 1 Tablet(s) PO daily 03/27/2016 04/02/2016 Inactive nystatin 100,000 uni t/mL oral suspension RxNorm: 082766 5 Milliliter(s) PO QI D 03/27/2016 04/05/2016 In active nystatin 100,000 uni t/mL oral suspension RxNorm: 374640 5 Milliliter(s) PO QI D 03/27/2016 03/26/2016 In active Diflucan 150 mg tablet RxNorm: 411742 1 Tablet(s) PO daily 03/27/2016 03/26/2016 Inactive Effexor XR 75 mg cap alma,extended release RxNorm: 334773 1 Capsule(s) PO daily 03/26/2016 07/01/2016 In active this replaces the 150mg dose - we are we aning down her dose Trulicity 1.5 mg/0.5 mL subcutaneous pen injector RxNorm: 9163629 0.5 Milliliter(s) SQ QW 03/26/2016 02/27/2017 Inactive Trulicity 0.75 mg/0. 5 mL subcutaneous pen injector RxNorm: 7751432 1 injection SQ QW 03/13/2016 06/03/2016 Inactive Trulicity 0.75 mg/0. 5 mL subcutaneous pen injector RxNorm: 6576696 1/2 Milliliter(s) SQ QW 03/13/2016 03/12/2016 Inactive glyburide 2.5 mg tablet RxNorm: 733704 1/2 Tablet(s) PO BID 03/13/2016 03/25/2016 Inactive glyburide 2.5 mg tablet RxNorm: 568294 1/2 Tablet(s) PO BID 03/13/2016 03/12/2016 Inactive Claritin-D 12 Hour 5 mg-120 mg tablet,extended release RxNorm: 4853478 1 Tablet(s) PO BID 02/03/2016 10/24/2016 Inactive Synthroid 25 mcg tablet RxNorm: 875978 1 Tablet(s) PO daily 01/23/2016 11/18/2016 Inactive Synthroid 25 mcg tablet RxNorm: 005096 1 Tablet(s) PO daily 01/23/2016 01/22/2016 Inactive Claritin-D 12 Hour 5 mg-120 mg tablet,extended release RxNorm: 8152235 1 Tablet(s) PO BID 12/05/2015 05/31/2016 Inactive Effexor XR 150 mg ca psule,extended release RxNorm: 379068 TAKE 1 CAPSULE DAILY 12/05/2015 03/25/2016 In active Bydureon 2 mg/0.65 m L subcutaneous pen injector RxNorm: 0634572 2 Milligram(s) SQ QW 10/14/2015 03/12/2016 Inactive oxazepam 10 mg capsule RxNorm: 516883 1 Capsule(s) PO TID PRN as needed anxiet y 10/14/2015 04/10/2016 In active Nexium 40 mg capsule ,delayed release RxNorm: 933635 1 Capsule(s) BID TAKE 1 CAPSULE DAILY 10/14/2015 10/07/2016 Inactive this is a new RX - fill the twice daily dose instead of once daily dose Effexor XR 150 mg ca psule,extended release RxNorm: 531418 1 Capsule(s) PO daily TAKE 1 CAPSULE DAILY 10/03/2015 03/25/2016 Inactive pilocarpine 5 mg tablet RxNorm: 3532319 4 Tablet(s) PO daily TAKE 4 TABLETS YARI Y 08/09/2015 02/04/2016 In active pilocarpine 5 mg tablet RxNorm: 9233584 4 Tablet(s) PO daily TAKE 4 TABLETS YARI Y 07/26/2015 08/08/2015 In active Claritin-D 12 Hour 5 mg-120 mg tablet,extended release RxNorm: 9265836 1 Tablet(s) PO BID 05/02/2015 10/24/2016 Inactive furosemide 40 mg tablet RxNorm: 790675 1 Tablet(s) daily TAKE 1 TABLET DAILY 03/31/2015 03/24/2016 In active Nexium 40 mg capsule ,delayed release RxNorm: 172175 1 Capsule(s) BID TAKE 1 CAPSULE DAILY 03/31/2015 10/13/2015 Inactive this is a new RX - fill the twice daily dose instead of once daily dose Nexium 40 mg capsule ,delayed release RxNorm: 775516 1 Capsule(s) daily TA KE 1 CAPSULE DAILY 03/31/2015 03/30/2015 Inactive montelukast 10 mg ta blet RxNorm: 828062 1 Tablet(s) PO daily 03/31/2015 03/24/2016 Inactive Synthroid 25 mcg tablet RxNorm: 981825 1 Tablet(s) PO daily 01/17/2015 01/11/2016 Inactive Synthroid 25 mcg tablet RxNorm: 305004 1 Tablet(s) PO daily 01/03/2015 01/16/2015 Inactive Claritin-D 12 Hour 5 mg-120 mg tablet,extended release RxNorm: 9604746 1 Tablet(s) PO BID 12/29/2014 05/01/2015 Inactive Synthroid 25 mcg tablet RxNorm: 154831 1 Tablet(s) PO daily 12/20/2014 01/02/2015 Inactive Synthroid 25 mcg tablet RxNorm: 875007 1 Tablet(s) PO daily 12/07/2014 12/19/2014 Inactive Effexor XR 150 mg ca psule,extended release RxNorm: 016581 1 Capsule(s) PO daily TAKE 1 CAPSULE DAILY 11/30/2014 10/02/2015 Inactive Nexium 40 mg capsule ,delayed release RxNorm: 695917 Capsule(s) TAKE 1 CAP ALMA DAILY 11/30/2014 03/30/2015 In active fenofibric acid (cho line) 135 mg capsule,delayed release RxNorm: 953873 1 Capsule(s) PO daily 08/31/2014 08/25/2015 Inactive Bydureon 2 mg subcut aneous extended release suspension RxNorm: 1936065 1 injection SQ QW 07/21/2014 07/15/2015 Inactive fluticasone 50 mcg/a ctuation nasal spray,suspension RxNorm: 9657236 USE ONE SPRAY IN EACH NOSTRIL TWICE A DAY 07/06/2014 06/03/2017 Inactive Lipitor 10 mg tablet RxNorm: 500878 TAKE 1 TABLET AT BEDTIME 06/15/2014 10/13/2015 Inactive furosemide 40 mg tablet RxNorm: 682054 TAKE 1 TABLET DAILY 06/15/2014 03/30/2015 Inactive oxazepam 10 mg capsule RxNorm: 858547 1 Capsule(s) PO TID PRN as needed anxiet y 06/11/2014 12/07/2014 In active montelukast 10 mg ta blet RxNorm: 755159 1 Tablet(s) PO daily 05/25/2014 03/30/2015 Inactive oxazepam 10 mg capsule RxNorm: 823054 1 Capsule(s) PO TID PRN as needed anxiet y 05/06/2014 06/10/2014 In active montelukast 10 mg ta blet RxNorm: 333370 1 Tablet(s) PO daily 05/04/2014 05/24/2014 Inactive Nexium 40 mg capsule ,delayed release RxNorm: 151923 TAKE 1 CAPSULE DAILY 03/25/2014 11/29/2014 In active Nexium 40 mg capsule ,delayed release RxNorm: 338029 1 Capsule(s) PO daily TAKE 1 CAPSULE DAILY 03/02/2014 03/24/2014 Inactive oxazepam 10 mg capsule RxNorm: 365779 1 Capsule(s) PO TID PRN as needed 02/24/2014 04/24/2014 In active pilocarpine 5 mg tablet RxNorm: 8841041 TAKE 4 TABLETS DAILY 02/01/2014 07/25/2015 Inactive Claritin-D 12 Hour 5 mg-120 mg tablet,extended release RxNorm: 2669309 1 Tablet(s) PO BID 12/24/2013 10/24/2016 Inactive Effexor XR 150 mg ca psule,extended release RxNorm: 000390 1 Capsule(s) PO daily TAKE 1 CAPSULE DAILY 12/24/2013 11/29/2014 Inactive Klor-Con 10 mEq tabl et,extended release RxNorm: 351548 1 Tablet(s) PO daily 12/24/2013 10/13/2015 In active Bydureon 2 mg subcut aneous extended release suspension RxNorm: 3087045 1 injection SQ QW 12/07/2013 07/20/2014 Inactive Synthroid 25 mcg tablet RxNorm: 148416 1 Tablet(s) PO daily 12/02/2013 11/26/2014 Inactive Klor-Con 10 mEq tabl et,extended release RxNorm: 913261 1 Tablet(s) PO daily take 2 daily x 1 week then one daily thereafter 12/02/2013 12/23/2013 Inactive oxazepam 10 mg capsule RxNorm: 141723 1 Capsule(s) PO TID PRN 11/10/2013 01/08/2014 Inactive omeprazole 20 mg cap [place],delayed release RxNorm: 980680 1 Capsule(s) PO daily 11/10/2013 04/13/2014 In active Synthroid 50 mcg tablet RxNorm: 649047 Tablet(s) PO TAKE 1 TABLET DAILY 09/21/2013 12/01/2013 In active furosemide 40 mg tablet RxNorm: 957048 Tablet(s) PO TAKE 1 TABLET DAILY 09/21/2013 06/14/2014 In active Bydureon 2 mg subcut aneous extended release suspension RxNorm: 8530794 1 injection SQ QW 07/22/2013 12/06/2013 Inactive Bydureon 2 mg subcut aneous extended release suspension RxNorm: 2773082 1 injection SQ QW 07/14/2013 07/21/2013 Inactive Nexium 40 mg capsule ,delayed release RxNorm: 704068 Capsule(s) PO TAKE 1 CAPSULE DAILY 06/18/2013 11/09/2013 Inactive fluticasone 50 mcg/a ctuation nasal spray,suspension RxNorm: 532506 1 [place] NASAL BID 06/18/2013 07/05/2014 Inactive Lipitor 10 mg tablet RxNorm: 369725 Tablet(s) PO every other day 1 tablet qo d 06/18/2013 06/12/2014 In active losartan 25 mg tablet RxNorm: 316935 1 Tablet(s) PO daily 1 daily for blood p ressure 06/18/2013 10/15/2013 Inactive Toprol XL 25 mg tabl et,extended release RxNorm: 048503 1 Tablet(s) PO daily 06/18/2013 06/12/2014 In active Toprol XL 25 mg tabl et,extended release RxNorm: 502311 1 Tablet(s) PO daily 06/12/2013 06/17/2013 In active losartan 25 mg tablet RxNorm: 602128 1 Tablet(s) PO daily 1 daily for blood p ressure 06/12/2013 06/17/2013 Inactive Lipitor 10 mg tablet RxNorm: 017140 Tablet(s) PO every other day 1 tablet qo d 06/12/2013 06/17/2013 In active Effexor XR 150 mg ca psule,extended release RxNorm: 488177 1 Capsule(s) PO daily TAKE 1 CAPSULE DAILY 05/27/2013 12/23/2013 Inactive Bydureon 2 mg subcut aneous extended release suspension RxNorm: 8610009 1 injection SQ QW 05/20/2013 07/13/2013 Inactive Lipitor 10 mg tablet RxNorm: 886667 Tablet(s) PO every other day 1 tablet qo d 05/20/2013 06/11/2013 In active Pen Needle 32 x 5/32" RxNorm: Miscellaneous use with byetta pen 05/07/2013 09/03/2013 Inactive Effexor XR 150 mg ca psule,extended release RxNorm: 135775 1 Capsule(s) PO daily TAKE 1 CAPSULE DAILY 05/07/2013 05/26/2013 Inactive Pen Needle 32 x 5/32" RxNorm: Miscellaneous use with byetta pen 05/06/2013 05/06/2013 Inactive Pen Needle 32 x 5/32" RxNorm: Miscellaneous use with byetta pen 05/06/2013 05/05/2013 Inactive Byetta 5 mcg/0.02 mL per dose Sub-Q Pen Injector RxNorm: 834439 1 Unit Dose SQ BID 04/29/2013 05/19/2013 In active metformin ER 500 mg tablet,extended release 24 hr RxNorm: 911388 1 Tablet(s) PO BID 04/28/2013 06/19/2013 In active Byetta 5 mcg/0.02 mL per dose Sub-Q Pen Injector RxNorm: 649876 1 Unit Dose SQ BID 04/28/2013 04/27/2013 In active Byetta 5 mcg/0.02 mL per dose Sub-Q Pen Injector RxNorm: 910161 1 Unit Dose SQ BID 04/28/2013 04/28/2013 In active Influenza Virus Vacc ine 0.5 mL RxNorm: IM 04/27/2013 04/27/2013 Inactive glyburide 2.5 mg tablet RxNorm: 973304 1 Tablet(s) PO BID 04/27/2013 04/27/2013 Inactive glyburide 2.5 mg tablet RxNorm: 127186 1/2 Tablet(s) PO daily 04/13/2013 04/26/2013 Inactive glyburide 2.5 mg tablet RxNorm: 996800 1 Tablet(s) PO daily 04/09/2013 04/12/2013 Inactive metformin ER 500 mg tablet,extended release 24 hr RxNorm: 072514 2 Tablet(s) PO BID 04/09/2013 04/27/2013 In active Lipitor 10 mg tablet RxNorm: 026891 Tablet(s) PO TAKE 1 TABLET AT BEDTIME 03/17/2013 05/19/2013 In active losartan 25 mg tablet RxNorm: 159701 1 Tablet(s) PO daily 02/12/2013 06/11/2013 Inactive montelukast 10 mg ta blet RxNorm: 725926 1 Tablet(s) PO daily 02/09/2013 02/08/2013 Inactive montelukast 10 mg ta blet RxNorm: 050684 1 Tablet(s) PO daily 02/09/2013 02/03/2014 Inactive losartan 25 mg tablet RxNorm: 955417 1 Tablet(s) PO daily 02/09/2013 02/11/2013 Inactive losartan 25 mg tablet RxNorm: 911060 1 Tablet(s) PO daily 01/26/2013 02/08/2013 Inactive Effexor XR 150 mg ca psule,extended release RxNorm: 590331 Capsule(s) PO TAKE 1 CAPSULE DAILY 12/24/2012 05/06/2013 Inactive metformin ER 500 mg tablet,extended release 24 hr RxNorm: 153250 Tablet(s) PO TAKE 2 TABLETS TWICE A DAY 12/24/2012 04/08/2013 Inactive pilocarpine 5 mg tablet RxNorm: 8882173 Tablet(s) PO TAKE 4 TABLETS DAILY 12/24/2012 01/31/2014 In active levofloxacin 500 mg tablet RxNorm: 519266 1 Tablet(s) PO daily 12/15/2012 12/19/2012 Inactive Nexium 40 mg capsule ,delayed release RxNorm: 586036 Capsule(s) PO daily T MILO 1 CAPSULE DAILY 11/03/2012 06/17/2013 Inactive Claritin-D 12 Hour 5 mg-120 mg tablet,extended release RxNorm: 0188697 1 Tablet(s) PO BID 10/29/2012 10/23/2013 Inactive TAKE 1 TABLET BY MOUTH TWICE DAILY fluticasone 50 mcg/a ctuation nasal spray,suspension RxNorm: 7852624 1 [place] NASAL BID 10/08/2012 06/17/2013 Inactive Claritin-D 12 Hour 5 mg-120 mg tablet,extended release RxNorm: 4319063 1 Tablet(s) PO BID 09/09/2012 2012 Inactive TAKE 1 TABLET BY MOUTH TWICE DAILY montelukast 10 mg ta blet RxNorm: 077608 1 Tablet(s) PO daily 08/20/2012 02/08/2013 Inactive Synthroid 50 mcg tablet RxNorm: 798565 Tablet(s) PO TAKE 1 TABLET DAILY 08/18/2012 09/20/2013 In active Nexium 40 mg capsule ,delayed release RxNorm: 321792 Capsule(s) PO TAKE 1 CAPSULE DAILY 08/18/2012 11/02/2012 Inactive furosemide 40 mg tablet RxNorm: 025109 Tablet(s) PO TAKE 1 TABLET DAILY 08/18/2012 09/20/2013 In active Klor-Con 10 mEq tabl et,extended release RxNorm: 773869 Tablet(s) PO TAKE 1 T ABLET DAILY 08/18/2012 12/01/2013 Inactive Xanax 0.5 mg tablet RxNorm: 500153 1 Tablet(s) PO Q6 PRN 07/17/2012 10/13/2015 Inactive Zithromax 250 mg tablet RxNorm: 212406 Tablet(s) PO 07/14/2012 11/10/2013 Inactive disp one z ankit fluticasone 50 mcg/a ctuation Nasal [place], Susp RxNorm: 3211329 1 [place] NASAL BID 06/27/2012 10/07/2012 In active Anusol-HC 25 mg Supp ository RxNorm: 2182482 1 Suppository RTL QD AY PRN 06/09/2012 12/22/2018 In active daily x 3 days then prnno longer than 10 days in row use Claritin-D 12 Hour 5 mg-120 mg tablet,extended release RxNorm: 3165471 1 Tablet(s) PO BID 05/22/2012 05/22/2012 Inactive TAKE 1 TABLET BY MOUTH TWICE DAILY Claritin-D 12 Hour 5 mg-120 mg tablet,extended release RxNorm: 5726007 Tablet(s) PO 05/12/2012 05/21/2012 In active TAKE 1 TABLET BY MOUTH TWICE DAILY fluticasone 50 mcg/a ctuation Nasal [place], Susp RxNorm: 0878994 1 [place] NASAL BID 05/06/2012 06/26/2012 In active Rocephin 500 mg Solu tion for Injection RxNorm: 9850870 Inj 01/1802/12/2012 Inactive metronidazole 500 mg Tab RxNorm: 479241 1 Tablet(s) PO TID 02/12/2012 02/18/2012 Inactive Kenalog 40 mg/mL [place] p for Injection RxNorm: 0559116 Milliliter(s) Inj 02/12/2012 02/12/2012 In active fluticasone 50 mcg/a ctuation Nasal [place], Susp RxNorm: 6805131 1 [place] NASAL BID 02/12/2012 05/05/2012 In active cefdinir 300 mg Cap RxNorm: 677941 1 Capsule(s) PO BID 02/12/2012 02/21/2012 Inactive Effexor XR 150 mg ca psule,extended release RxNorm: 061182 1 Capsule(s) PO daily 12/17/2011 12/10/2012 In active metformin ER 500 mg tablet,extended release 24 hr RxNorm: 731558 2 Tablet(s) PO BID 12/17/2011 05/14/2012 In active pilocarpine 5 mg tablet RxNorm: 7521924 4 Tablet(s) PO daily 12/17/2011 03/15/2012 Inactive Singulair 10 mg Tab RxNorm: 616086 1 Tablet(s) PO daily 11/27/2011 08/19/2012 Inactive Nexium 40 mg capsule ,delayed release RxNorm: 991260 1 Capsule(s) PO daily 11/26/2011 03/24/2012 In active Claritin-D 12 Hour 5 mg-120 mg tablet,extended release RxNorm: 8813347 1 Tablet(s) PO BID 11/14/2011 05/11/2012 Inactive Claritin-D 12 Hour 5 mg-120 mg Tab RxNorm: 3629425 1 Tablet(s) PO BID 10/31/2011 11/13/2011 In active Claritin-D 12 Hour 5 mg-120 mg Tab RxNorm: 3095192 1 Tablet(s) PO BID 10/29/2011 2011 In active Claritin-D 12 Hour 5 mg-120 mg Tab RxNorm: 8103437 1 Tablet(s) PO BID 10/29/2011 10/30/2011 In active Claritin-D 24 Hour 1 0 mg-240 mg Tab RxNorm: 7348121 1 Tablet(s) PO daily 10/23/2011 2011 In active levofloxacin 500 mg Tab RxNorm: 719453 1 Tablet(s) PO daily 08/28/2011 09/03/2011 Inactive Nasonex 50 mcg/actua tion [place] RxNorm: 339248 1 [place] NASAL BID 08/28/2011 11/25/2011 Inactive promethazine 25 mg/m L Injection RxNorm: 920081 1 Millil[place](s) Inj 08/23/2011 07/14/2013 Inactive glyburide 2.5 mg tablet RxNorm: 001245 1 Tablet(s) PO daily 08/23/2011 04/08/2013 Inactive Rocephin 500 mg Solu tion for Injection RxNorm: 5029437 1 Milliliter(s) Inj 08/23/2011 08/28/2011 In active Klor-Con 10 10 mEq t ablet,extended release RxNorm: 750834 1 Tablet(s) PO daily 08/06/2011 07/30/2012 In active Nexium 40 mg Capsule , delayed release RxNorm: 134160 1 Capsule(s) PO daily 08/06/2011 11/25/2011 In active furosemide 40 mg tablet RxNorm: 107914 1 Tablet(s) PO daily 08/06/2011 07/30/2012 Inactive Cymbalta 30 mg Cap RxNorm: 901341 1 Capsule(s) PO daily 07/26/2011 08/28/2011 Inactive Synthroid 50 mcg tablet RxNorm: 387437 Tablet(s) PO 06/21/2011 08/17/2012 Inactive TAKE 1 TABLET DAILY Neurontin 100 mg Cap RxNorm: 305237 2 Capsule(s) PO TID 06/19/2011 08/28/2011 Inactive ciprofloxacin 500 mg Tab RxNorm: 056771 1 Tablet(s) PO BID 06/19/2011 08/28/2011 Inactive Neurontin 100 mg Cap RxNorm: 758347 1 Capsule(s) PO QID 06/05/2011 06/18/2011 Inactive oxazepam 10 mg Cap RxNorm: 212823 1 Capsule(s) PO Q6 PRN 06/05/2011 10/02/2011 Inactive Influenza Virus Vacc ine 0.5 mL RxNorm: IM 06/05/2011 06/05/2011 Inactive hydrocodone-acetamin ophen 5 mg-500 mg Tab RxNorm: 841797 1 Tablet(s) PO Q6 PRN No Start Date Active Fish Oil 1,000 mg Cap RxNorm: 2 Capsule(s) PO BID No Start Date Active Zenpep 40,000-136,00 0-218,000 unit capsule,delayed release RxNorm: 5975111 1 Capsule(s) PO QID No Start Date Active Multiple Vitamins ch ewable tablet RxNorm: 1 Tablet(s) PO daily No Start Date Active mesalamine 4 gram/60 mL enema RxNorm: 217343 1 Milliliter(s) RTL d aily No Start Date Active aspirin 81 mg Cap, D elayed Release RxNorm: 929697 1 Capsule(s) PO daily No Start Date Active Vitamin B-12 1,000 m cg Tab RxNorm: 596819 2 Tablet(s) PO daily No Start Date Active Vitamin C With Darlyn Hips 1,000 mg Tab RxNorm: 045775 1 Tablet(s) PO daily No Start Date Active Lipitor 10 mg Tab RxNorm: 564877 1 Tablet(s) PO HS No Start Date 04/10/2011 Inactive EnteraGam 5 gram ora l powder packet RxNorm: 1 PO daily No S tart Date 12/22/2018 Inactive Lipitor 20 mg Tab RxNorm: 223190 1 Tablet(s) PO HS No Start Date 08/28/2011 Inactive Zithromax 250 mg tablet RxNorm: 070416 Tablet(s) PO No Start Date 07/13/2012 Inactive disp one z ankit Effexor XR 150 mg 24 hr Cap RxNorm: 373693 1 Capsule(s) PO daily No Start Date 12/16/2011 Inactive Bydureon 2 mg/0.65 m L subcutaneous pen injector RxNorm: 8869555 Milliliter(s) SQ QW No Start Date 10/13/2015 Inactive Centrum Ultra Women' s 18 mg-400 mcg Tab RxNorm: 1 Tablet(s) PO daily No Start Date 12/22/2018 Inactive furosemide 40 mg Tab RxNorm: 523763 1 Tablet(s) PO daily No Start Date 08/05/2011 Inactive Synthroid 25 mcg tablet RxNorm: 923091 1 Tablet(s) PO daily No Start Date 12/01/2013 Inactive Januvia 50 mg tablet RxNorm: 567611 1 Tablet(s) PO daily samples No Start Date 04/27/2013 Inactive Lipitor 10 mg tablet RxNorm: 905221 1 Tablet(s) PO daily No Start Date 03/16/2013 Inactive Crestor 10 mg tablet RxNorm: 530695 1 Tablet(s) PO QHS No Start Date 03/25/2016 Inactive Asacol HD 800 mg Tab RxNorm: 039560 2 Tablet(s) PO daily No Start Date 10/13/2015 Inactive pilocarpine 5 mg Tab RxNorm: 4576795 4 Tablet(s) PO daily No Start Date 12/16/2011 Inactive glyburide 2.5 mg Tab RxNorm: 510786 1 Tablet(s) PO BID No Start Date 08/22/2011 Inactive Claritin-D 24 Hour 1 0 mg-240 mg Tab RxNorm: 6312648 1 Tablet(s) PO daily No Start Date 10/22/2011 Inactive Vitamin D 1,000 unit Tab RxNorm: 166406 1 Tablet(s) PO daily No Start Date 10/13/2015 Inactive Tricor 145 mg Tab RxNorm: 117385 1 Tablet(s) PO daily No Start Date 10/14/2015 Inactive Zithromax Z-Ankit 250 mg tablet RxNorm: 623449 1 Tablet(s) PO UD No Start Date 11/06/2016 Inactive Synthroid 25 mcg tablet RxNorm: 711842 1 Tablet(s) PO daily No Start Date 05/01/2017 Inactive Claritin-D 12 Hour 5 mg-120 mg tablet,extended release RxNorm: 0319802 1 Tablet(s) PO BID No Start Date 12/23/2013 Inactive Singulair 10 mg Tab RxNorm: 565926 1 Tablet(s) PO daily No Start Date 11/26/2011 Inactive Linzess 290 mcg capsule RxNorm: 4981890 1 Capsule(s) PO daily No Start Date 12/22/2018 Inactive Calcium 600 + D(3) 6 00 mg (1,500)-200 unit Tab RxNorm: 053412 1 Tablet(s) PO daily No Start Date 10/13/2015 Inactive Lialda 1.2 gram tabl et,delayed release RxNorm: 339690 2 Tablet(s) PO daily No Start Date 09/17/2016 Inactive Effexor XR 150 mg 24 hr Cap RxNorm: 773754 1 Capsule(s) PO daily No Start Date 08/28/2011 Inactive aspirin 325 mg Tab RxNorm: 142468 1 Tablet(s) PO daily No Start Date 08/28/2011 Inactive Toprol XL 25 mg tabl et,extended release RxNorm: 366800 1 Tablet(s) PO daily No Start Date 06/11/2013 Inactive lisinopril 10 mg tablet RxNorm: 738989 1 Tablet(s) PO daily No Start Date 01/25/2013 Inactive Cymbalta 60 mg Cap RxNorm: 216546 1 Capsule(s) PO daily No Start Date 08/28/2011 Inactive Nexium 40 mg Cap RxNorm: 326858 1 Capsule(s) PO daily No Start Date 08/05/2011 Inactive dicyclomine 10 mg Cap RxNorm: 135763 1 Capsule(s) PO daily No Start Date 07/13/2013 Inactive Synthroid 50 mcg Tab RxNorm: 140225 1 Tablet(s) PO daily No Start Date 06/20/2011 Inactive metformin ER 500 mg 24 hr Tab RxNorm: 292218 2 Tablet(s) PO BID No Start Date 12/16/2011 Inactive Anusol-HC 25 mg Supp ository RxNorm: 6779223 1 Suppository RTL No Start Date 06/08/2012 Inactive daily x 3 days then prnno longer than 10 days in row use Medication Administered Medication Codes Instruc tions Start Date Status Kenalog 40 mg/mL suspension for injection RxNorm: 0014238 Milliliter 12/23/2018 No longer Active Kenalog 40 mg/mL suspension for injection RxNorm: 6183246 1Milliliter 05/26/2018 N o longer Active Influenza Virus Vaccine 0.5 mL RxNorm: 04/27/2013 No longer Active Rocephin 500 mg Solution for Injection RxNorm: 9700003 02/12/2012 No longer A ctive Kenalog 40 mg/mL Susp for Injection RxNorm: 2092780 Milliliter 02/12/2012 No longer Active Influenza Virus Vaccine 0.5 mL RxNorm: 06/05/2011 No longer Active Immunizations Vaccine Codes Date Status Influenza CVX: 141 05/02 completed Pneumococcal (Adult) CVX: 133 05/02/2017 completed Influenza CVX: 141 05/06 completed Influenza CVX: 141 04/27 completed Influenza CVX: 141 08/28 completed Influenza CVX: 141 06/05 completed Pneumococcal CVX: 33 completed Assessments Condition Codes Effectiv e Dates Other allergic rhinitis ICD-10: J30. 89 ICD-9: 477.9 02/16/2019 Major depressive disorder, recurrent, mild ICD-10: F33.0 ICD-9: 296.31 02/16/2019 Benign paroxysmal vertigo, bilateral ICD-10: H81.13 ICD-9: 386.11 02/10/2019 Other allergic rhinitis ICD-10: J30. 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 ICD-10: F51.13 ICD-9: 327.15 04/01/2018 Type 2 diabetes mell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 ICD-10: E11.9 ICD-9: 250.00 04/01/2018 Obstructive sleep apnea (adult) (pediatric) ICD-10: G47.33 ICD-9: 327.23 04/01/2018 Type 2 diabetes mellitus with hyperglycemia ICD-10: E11.65 ICD-9: 250.02 03/31/2018 Candidal stomatitis ICD-10: B37.0 ICD-9: 112.0 09/18/2017 Mixed hyperlipidemia ICD-10: E78.2 ICD-9: 272.4 09/18/2017 Encounter for immunization ICD-10: Z 23 ICD-9: V06.6 05/02/2017 Other malaise ICD-10: R53.81 ICD-9: 780.79 11/06/2016 Other fatigue ICD-10: R53.83 ICD-9: 780.79 11/06/2016 Weakness ICD-10: R53.1 ICD-9: 780.79 11/06/2016 Essential (primary) hypertension ICD -10: I10 ICD-9: 401.9 09/19/2016 Hypothyroidism, unspecified ICD-10: E03.9 ICD-9: 244.9 09/19/2016 Gastroparesis ICD-10: K31.84 ICD-9: 536.3 07/02/2016 Adjustment disorder with mixed anxiety and depressed m ood ICD- 10: F43.23 ICD-9: 309.28 11/23/2015 Panic disorder [episodic paroxysmal anxi ety] without agoraphobia ICD-10: F41.0 ICD-9: 300.01 10/14/2015 GENERALIZED ANXIETY DISEASE ICD-9: 300.02 03/31/2015 DIABETES TYPE II ICD-9: 250.00 03/31/2015 ESOPHAGEAL REFLUX ICD-9: 530.81 03/31/2015 ESSENTIAL HYPERTENSION ICD-9: 401.9 03/31/2015 DEPRESSIVE DISORDER NEC ICD-9: 311 08/31/2014 DM W/O COMPLICATION TYPE II, UNCONTROLLED ICD-9: 250.02 08/31/2014 Constipation - functional ICD-9: 564.09 08/10/2014 Abdominal pain ICD-9: 789.00 08/10/2014 Chronic allergic rhinitis ICD-9: 477.9 05/06/2014 Flu vaccine need ICD-9: V04.81 05/06/2014 Neck pain ICD-9: 723.1 0 05/06/2014 Iliotibial band syndrome ICD-9: 728.89 11/10/2013 HYPERLIPIDEMIA ICD-9: 272.4 04/09/2013 IMPACTED CERUMEN ICD-9: 380.4 01/26/2013 ENCNTR LONG-RX USE NEC ICD-9: V58.69 01/26/2013 Polymyalgia ICD-9: 725 0 12/23/2012 ACUTE MAXILLARY SINUSITIS ICD-9: 461.0 12/15/2012 COUGH ICD-9: 786.2 12/15 Hip pain ICD-9: 719.45 0 10/22/2012 ANAL OR RECTAL PAIN ICD-9: 569.42 10/22/2012 Bruising ICD-9: 924.9 Acute sinusitis ICD-9: 461.9 02/12/2012 FEVER NOS ICD-9: 780.60 02/12/2012 Hemorrhoids ICD-9: 455.6 02/05/2012 Otalgia of both ears ICD-9: 388.70 02/05/2012 CHRONIC SINUSITIS ICD-9: 473.9 02/05/2012 Dysuria ICD-9: 788.1 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 07/24/2011 Hematochezia ICD-9: 578.1 06/19/2011 Back pain ICD-9: 724.5 1 08/19/2010 Reason For Visit Reason For Visit Effective Dates Notes dizziness 02/16/2019 dizziness 02/10/2019 back pain 12/23/2018 cough 06/12/2018 cough 05/26/2018 diabetes mellitus 04/01/2018 diabetes mellitus 11/25/2017 diabetes mellitus 09/18/2017 diabetes mellitus 05/02/2017 oral pain 03/29/2017 shortness of breath 11/15/2016 shortness of breath 11/06/2016 diabetes mellitus 08/01/2016 diabetes mellitus 07/02/2016 diabetes mellitus 06/04/2016 bleeding from the rectum hypertension 03/26/2016 bleeding from the rectum hypertension 11/23/2015 diabetes mellitus 10/14/2015 diabetes mellitus 03/31/2015 stiff neck diabetes mellitus 08/31/2014 stiff neck diabetes mellitus 08/10/2014 [facility] nurse advised her to get Mag Citrate, but she hasnt done that yet. neck pain 05/06/2014 hip pain 04/14/2014 hip pain 11/10/2013 diabetes mellitus 07/14/2013 diabetes mellitus 06/12/2013 diabetes mellitus 05/20/2013 vaccination against influenza 04/27/2013 pain, generalized 04/09/2013 cough 01/26/2013 hip pain 12/23/2012 cough 12/15/2012 pain, generalized 10/22/2012 diabetes mellitus 08/21/2012 diabetes mellitus 07/17/2012 disturbances of memory 07/08/2012 hypertension 06/09/2012 diabetes mellitus 02/12/2012 dizziness, ears feel full, throat sore, cough earache 02/05/2012 sore throat 11/14/2011 p t takes claritin d daily cough 10/08/2011 constipation 08/28/2011 nasal discharge 08/23/2011 diabetes mellitus 07/24/2011 sinusitis 06/19/2011 hand pain 06/05/2011 Results Observation Observation Code Item Item Code Result Date Metabolic Ord15 NA 140 mEq/L 04/24/2019 Metabolic Ord15 K 4.1 mEq/L 04/24/2019 Metabolic Ord15 CL 101 mEq/L 04/24/2019 Metabolic Ord15 CO2 32.0 mEq/L 04/24/2019 Metabolic Ord15 GLUCOSE 74 mg/dL 04/24/2019 Metabolic Ord15 BUN 17 mg/dL 04/24/2019 Metabolic Ord15 Creat 0.9 mg/dL 04/24/2019 Metabolic Ord15 B/C Ratio 20.0 Ratio 04/24/2019 Metabolic Ord15 eGFR 68 ml/min/1.73m2 04/24/2019 Metabolic Ord15 Osmo 280 mOsmo 04/24/2019 Metabolic Ord15 ANION GAP 11 04/24/2019 Metabolic Ord15 CALCIUM 10.0 mg/dL 04/24/2019 %Hba1C Oyc647 % HbA1c 26694-8 6.6 % 04/01/2018 %Hba1C Iqe945 Gluc Ave 143 mg/dL 04/01/2018 Lipid Ord30 CHOL 178 mg/dL 04/01/2018 Lipid Ord30 HDL 50.0 mg/dl 04/01/2018 Lipid Ord30 TRIG 221 mg/dL 04/01/2018 Lipid Ord30 LDL 84 mg/dL 04/01/2018 Lipid Ord30 C/HDL 3.6 Ratio 04/01/2018 %Hba1C Orq570 % HbA1c 32143-8 6.7 % 11/25/2017 %Hba1C Fnl213 Gluc Ave 146 mg/dL 11/25/2017 Comp Metabolic Tig805 NA 144 mEq/L 04/30/2017 Comp Metabolic Ftb321 K 4.3 mEq/L 04/30/2017 Comp Metabolic Irm629 CL 105 mEq/L 04/30/2017 Comp Metabolic Zcu418 CO2 29.0 mEq/L 04/30/2017 Comp Metabolic Sqs258 AN ION GAP 14 04/30/2017 Comp Metabolic Nvm462 GL UCOSE 109 mg/dL 04/30/2017 Comp Metabolic Gwa408 Cr eat 1.0 mg/dL 04/30/2017 Comp Metabolic Vwi782 eG FR 58 ml/min/1.73m2 04/30 Comp Metabolic Cwx333 BUN 17 mg/dL 04/30/2017 Comp Metabolic Amn778 B/ C Ratio 17.3 Ratio 04/30/2017 Comp Metabolic Hrs791 CA LCIUM 10.1 mg/dL 04/30/2017 Comp Metabolic Hhq594 AL K PHOS 47 U/L 04/30/2017 Comp Metabolic Hff343 T(SGOT) 16 U/L 04/30/2017 Comp Metabolic Ntt957 AL T(SGPT) 16 U/L 04/30/2017 Comp Metabolic Lzd484 BI LI T 0.4 mg/dL 04/30/2017 Comp Metabolic Ykp025 AL BUMIN 4.5 g/dL 04/30/2017 Comp Metabolic Tte325 TP RO 6.7 g/dL 04/30/2017 Comp Metabolic Dpf299 GL OB 2.2 g/dL 04/30/2017 Comp Metabolic Bwl439 A/ G Ratio 2.0 Ratio 04/30/2017 Comp Metabolic Tut625 Os mo 289 mOsmo 04/30/2017 Cbc With Differential Ord2 WBC 3.68 K/ul 04/30/2017 Cbc With Differential Ord2 RBC 4.39 M/ul 04/30/2017 Cbc With Differential Ord2 HGB 12.4 g/dl 04/30/2017 Cbc With Differential Ord2 HCT 37.9 % 04/30/2017 Cbc With Differential Ord2 Neut% 60.7 % 04/30/2017 Cbc With Differential Ord2 MCV 86.3 fl 04/30/2017 Cbc With Differential Ord2 Lymph% 30.4 % 04/30/2017 Cbc With Differential Ord2 MCH 28.2 pg 04/30/2017 Cbc With Differential Ord2 Long% 6.5 % 04/30/2017 Cbc With Differential Ord2 MCHC 32.7 pg 04/30/2017 Cbc With Differential Ord2 Eos% 1.6 % 04/30/2017 Cbc With Differential Ord2 PLT 289 K/ul 04/30/2017 Cbc With Differential Ord2 Baso% 0.8 % 04/30/2017 Cbc With Differential Ord2 RDW 15.2 % 04/30/2017 Cbc With Differential Ord2 Neut ABS# 2.23 K/ul 04/30/2017 Cbc With Differential Ord2 Lymph ABS# 1.12 K/ul 04/30/2017 Cbc With Differential Ord2 Long ABS# 0.2 K/ul 04/30/2017 Cbc With Differential Ord2 Eos ABS# 0.1 K/ul 04/30/2017 Cbc With Differential Ord2 Baso ABS# 0.0 K/ul 04/30/2017 %Hba1C Tze793 % HbA1c 65463-9 6.7 % 04/30/2017 %Hba1C Vpt791 Gluc Ave 146 mg/dL 04/30/2017 Tsh Ord6 hTSH II 1.36 uIU/mL 04/30/2017 Lipid Ord30 CHOL 160 mg/dL 04/30/2017 Lipid Ord30 HDL 51.0 mg/dl 04/30/2017 Lipid Ord30 TRIG 195 mg/dL 04/30/2017 Lipid Ord30 LDL 70 mg/dL 04/30/2017 Lipid Ord30 C/HDL 3.1 Ratio 04/30/2017 Free T4 Ray639 FREE T4 0.75 ng/dL 04/30/2017 Ferritin Ord22 FERRITIN 89.9 ng/mL 11/09/2016 Parathyroid Hormone Mni747 PTH 36.20 pg/ml 11/09/2016 Tibc Ord40 Iron 75 ug/dl 11/08/2016 Tibc Ord40 UIBC 325 ug/dL 11/08/2016 Tibc Ord40 TIBC 400 ug/dL 11/08/2016 Tibc Ord40 Fe-%Sat 18.8 % 11/08/2016 Comp Metabolic Ufj170 NA 139 mEq/L 09/25/2016 Comp Metabolic Qwu467 K 4.3 mEq/L 09/25/2016 Comp Metabolic Oeq640 CL 101 mEq/L 09/25/2016 Comp Metabolic Mxk546 CO2 31.0 mEq/L 09/25/2016 Comp Metabolic Qcz521 AN ION GAP 11 09/25/2016 Comp Metabolic Ery696 GL UCOSE 116 mg/dL 09/25/2016 Comp Metabolic Fdn655 Cr eat 1.1 mg/dL 09/25/2016 Comp Metabolic Pjn926 eG FR 53 ml/min/1.73m2 09/25 Comp Metabolic Veh196 BUN 22 mg/dL 09/25/2016 Comp Metabolic Kde532 B/ C Ratio 20.8 Ratio 09/25/2016 Comp Metabolic Njg749 CA LCIUM 10.3 mg/dL 09/25/2016 Comp Metabolic Fzn840 AL K PHOS 52 U/L 09/25/2016 Comp Metabolic Phf162 T(SGOT) 16 U/L 09/25/2016 Comp Metabolic Qdf213 AL T(SGPT) 17 U/L 09/25/2016 Comp Metabolic Cem879 BI LI T 0.3 mg/dL 09/25/2016 Comp Metabolic Ewq447 AL BUMIN 4.7 g/dL 09/25/2016 Comp Metabolic Fnq423 TP RO 6.9 g/dL 09/25/2016 Comp Metabolic Cuw620 GL OB 2.2 g/dL 09/25/2016 Comp Metabolic Pgw695 A/ G Ratio 2.1 Ratio 09/25/2016 Comp Metabolic Jxe642 Os mo 282 mOsmo 09/25/2016 Lipid Ord30 CHOL 182 mg/dL 09/25/2016 Lipid Ord30 HDL 55.0 mg/dl 09/25/2016 Lipid Ord30 TRIG 168 mg/dL 09/25/2016 Lipid Ord30 LDL 93 mg/dL 09/25/2016 Lipid Ord30 C/HDL 3.3 Ratio 09/25/2016 %Hba1C Rxr731 % HbA1c 71633-4 7.0 % 09/25/2016 %Hba1C Nvb148 Gluc Ave 154 mg/dL 09/25/2016 Free T4 Rah721 FREE T4 0.80 ng/dL 09/25/2016 Cbc With Differential Ord2 WBC 4.16 K/ul 09/25/2016 Cbc With Differential Ord2 RBC 4.63 M/ul 09/25/2016 Cbc With Differential Ord2 HGB 13.1 g/dl 09/25/2016 Cbc With Differential Ord2 HCT 39.5 % 09/25/2016 Cbc With Differential Ord2 Neut% 59.9 % 09/25/2016 Cbc With Differential Ord2 MCV 85.3 fl 09/25/2016 Cbc With Differential Ord2 Lymph% 31.0 % 09/25/2016 Cbc With Differential Ord2 MCH 28.3 pg 09/25/2016 Cbc With Differential Ord2 Long% 8.2 % 09/25/2016 Cbc With Differential Ord2 MCHC 33.2 pg 09/25/2016 Cbc With Differential Ord2 Eos% 0.2 % 09/25/2016 Cbc With Differential Ord2 PLT 294 K/ul 09/25/2016 Cbc With Differential Ord2 Baso% 0.7 % 09/25/2016 Cbc With Differential Ord2 RDW 14.9 % 09/25/2016 Cbc With Differential Ord2 Neut ABS# 2.49 K/ul 09/25/2016 Cbc With Differential Ord2 Lymph ABS# 1.29 K/ul 09/25/2016 Cbc With Differential Ord2 Long ABS# 0.3 K/ul 09/25/2016 Cbc With Differential Ord2 Eos ABS# 0.0 K/ul 09/25/2016 Cbc With Differential Ord2 Baso ABS# 0.0 K/ul 09/25/2016 Tsh Ord6 hTSH II 1.01 uIU/mL 09/25/2016 Tsh Ord6 hTSH II 1.35 uIU/mL 06/04/2016 Comp Metabolic Azc731 NA 135 mEq/L 06/04/2016 Comp Metabolic Voj742 K 3.8 mEq/L 06/04/2016 Comp Metabolic Eja195 CL 99 mEq/L 06/04/2016 Comp Metabolic Xim670 CO2 30.0 mEq/L 06/04/2016 Comp Metabolic Rww547 AN ION GAP 10 06/04/2016 Comp Metabolic Ihk518 GL UCOSE 171 mg/dL 06/04/2016 Comp Metabolic Bop865 Cr eat 1.0 mg/dL 06/04/2016 Comp Metabolic Dva201 eG FR 59 ml/min/1.73m2 06/04 Comp Metabolic Urg393 BUN 22 mg/dL 06/04/2016 Comp Metabolic Gpc540 B/ C Ratio 22.4 Ratio 06/04/2016 Comp Metabolic Fvt227 CA LCIUM 10.4 mg/dL 06/04/2016 Comp Metabolic Bbl566 AL K PHOS 68 U/L 06/04/2016 Comp Metabolic Xrl715 T(SGOT) 22 U/L 06/04/2016 Comp Metabolic Xql084 AL T(SGPT) 25 U/L 06/04/2016 Comp Metabolic Chd320 BI LI T 0.4 mg/dL 06/04/2016 Comp Metabolic Qha396 AL BUMIN 4.5 g/dL 06/04/2016 Comp Metabolic Zkp520 TP RO 7.0 g/dL 06/04/2016 Comp Metabolic Lpi375 GL OB 2.5 g/dL 06/04/2016 Comp Metabolic Sfb678 A/ G Ratio 1.8 Ratio 06/04/2016 Comp Metabolic Qoi676 Os mo 277 mOsmo 06/04/2016 Cbc With Differential Ord2 WBC 6.57 K/ul 06/04/2016 Cbc With Differential Ord2 RBC 4.47 M/ul 06/04/2016 Cbc With Differential Ord2 HGB 13.0 g/dl 06/04/2016 Cbc With Differential Ord2 HCT 38.7 % 06/04/2016 Cbc With Differential Ord2 Neut% 66.4 % 06/04/2016 Cbc With Differential Ord2 MCV 86.6 fl 06/04/2016 Cbc With Differential Ord2 Lymph% 24.0 % 06/04/2016 Cbc With Differential Ord2 MCH 29.1 pg 06/04/2016 Cbc With Differential Ord2 Long% 7.9 % 06/04/2016 Cbc With Differential Ord2 MCHC 33.6 pg 06/04/2016 Cbc With Differential Ord2 Eos% 0.8 % 06/04/2016 Cbc With Differential Ord2 PLT 289 K/ul 06/04/2016 Cbc With Differential Ord2 Baso% 0.9 % 06/04/2016 Cbc With Differential Ord2 RDW 15.3 % 06/04/2016 Cbc With Differential Ord2 Neut ABS# 4.36 K/ul 06/04/2016 Cbc With Differential Ord2 Lymph ABS# 1.58 K/ul 06/04/2016 Cbc With Differential Ord2 Long ABS# 0.5 K/ul 06/04/2016 Cbc With Differential Ord2 Eos ABS# 0.1 K/ul 06/04/2016 Cbc With Differential Ord2 Baso ABS# 0.1 K/ul 06/04/2016 %Hba1C Lcu099 % HbA1c 07690-3 8.7 % 06/04/2016 %Hba1C Bed618 Gluc Ave 203 mg/dL 06/04/2016 Free T4 Iwn877 FREE T4 0.84 ng/dL 06/04/2016 Lipid Ord30 CHOL 111 mg/dL 06/04/2016 Lipid Ord30 HDL 51.0 mg/dl 06/04/2016 Lipid Ord30 TRIG 185 mg/dL 06/04/2016 Lipid Ord30 LDL 23 mg/dL 06/04/2016 Lipid Ord30 C/HDL 2.2 Ratio 06/04/2016 Microalbumin Jqx505 Micr oAlb <0.7 mg/dL 06/04/2016 Comp Metabolic Hon886 NA 142 mEq/L 03/12/2016 Comp Metabolic Xsg065 K 4.1 mEq/L 03/12/2016 Comp Metabolic Lyp537 CL 103 mEq/L 03/12/2016 Comp Metabolic Ypm049 CO2 30.0 mEq/L 03/12/2016 Comp Metabolic Twc907 AN ION GAP 13 03/12/2016 Comp Metabolic Leo875 GL UCOSE 138 mg/dL 03/12/2016 Comp Metabolic Tns441 Cr eat 0.8 mg/dL 03/12/2016 Comp Metabolic Qal221 eG FR 75 ml/min/1.73m2 03/12 Comp Metabolic Jcv528 BUN 18 mg/dL 03/12/2016 Comp Metabolic Qll430 B/ C Ratio 22.8 Ratio 03/12/2016 Comp Metabolic Pis314 CA LCIUM 9.8 mg/dL 03/12/2016 Comp Metabolic Gwb108 AL K PHOS 83 U/L 03/12/2016 Comp Metabolic Xrr694 T(SGOT) 15 U/L 03/12/2016 Comp Metabolic Imy602 AL T(SGPT) 20 U/L 03/12/2016 Comp Metabolic Kga428 BI LI T 0.4 mg/dL 03/12/2016 Comp Metabolic Jdb146 AL BUMIN 4.2 g/dL 03/12/2016 Comp Metabolic Htd124 TP RO 6.4 g/dL 03/12/2016 Comp Metabolic Hoo612 GL OB 2.2 g/dL 03/12/2016 Comp Metabolic Oog583 A/ G Ratio 1.9 Ratio 03/12/2016 Comp Metabolic Zwk303 Os mo 287 mOsmo 03/12/2016 %Hba1C Jrp645 % HbA1c 63204-2 7.2 % 03/12/2016 %Hba1C Pbt184 Gluc Ave 160 mg/dL 03/12/2016 Comp Metabolic Jro288 NA 138 mEq/L 10/18/2015 Comp Metabolic Pqk359 K 4.1 mEq/L 10/18/2015 Comp Metabolic Vra031 CL 97 mEq/L 10/18/2015 Comp Metabolic Zlr947 CO2 32.0 mEq/L 10/18/2015 Comp Metabolic Fay847 AN ION GAP 13 10/18/2015 Comp Metabolic Woa317 GL UCOSE 145 mg/dL 10/18/2015 Comp Metabolic Cbx604 Cr eat 1.1 mg/dL 10/18/2015 Comp Metabolic Cce254 eG FR 50 ml/min/1.73m2 10/17 Comp Metabolic Bwa191 BUN 23 mg/dL 10/18/2015 Comp Metabolic Cqc693 B/ C Ratio 20.4 Ratio 10/18/2015 Comp Metabolic Oco994 CA LCIUM 10.3 mg/dL 10/18/2015 Comp Metabolic Oka179 AL K PHOS 59 U/L 10/18/2015 Comp Metabolic Iyl793 T(SGOT) 17 U/L 10/18/2015 Comp Metabolic Rkg440 AL T(SGPT) 21 U/L 10/18/2015 Comp Metabolic Pop442 BI LI T 0.4 mg/dL 10/18/2015 Comp Metabolic Bbd113 AL BUMIN 4.6 g/dL 10/18/2015 Comp Metabolic Ynn840 TP RO 7.1 g/dL 10/18/2015 Comp Metabolic Led430 GL OB 2.5 g/dL 10/18/2015 Comp Metabolic Sce881 A/ G Ratio 1.9 Ratio 10/18/2015 Comp Metabolic Nho713 Os mo 282 mOsmo 10/18/2015 Tsh Ord6 hTSH II 1.81 uIU/mL 10/18/2015 %Hba1C Wyl319 % HbA1c 19474-8 7.3 % 10/18/2015 %Hba1C Kae912 Gluc Ave 163 mg/dL 10/18/2015 Iron Ord72 Iron 90 ug/dl 10/18/2015 Free T4 Oti543 FREE T4 0.75 ng/dL 10/18/2015 Cbc With Differential Ord2 WBC 7.37 K/ul 10/18/2015 Cbc With Differential Ord2 RBC 4.59 M/ul 10/18/2015 Cbc With Differential Ord2 HGB 13.3 g/dl 10/18/2015 Cbc With Differential Ord2 HCT 40.6 % 10/18/2015 Cbc With Differential Ord2 Neut% 63.3 % 10/18/2015 Cbc With Differential Ord2 MCV 88.5 fl 10/18/2015 Cbc With Differential Ord2 Lymph% 26.2 % 10/18/2015 Cbc With Differential Ord2 MCH 29.0 pg 10/18/2015 Cbc With Differential Ord2 Long% 6.8 % 10/18/2015 Cbc With Differential Ord2 MCHC 32.8 pg 10/18/2015 Cbc With Differential Ord2 Eos% 3.0 % 10/18/2015 Cbc With Differential Ord2 PLT 360 K/ul 10/18/2015 Cbc With Differential Ord2 Baso% 0.7 % 10/18/2015 Cbc With Differential Ord2 RDW 14.9 % 10/18/2015 Cbc With Differential Ord2 Neut ABS# 4.67 K/ul 10/18/2015 Cbc With Differential Ord2 Lymph ABS# 1.93 K/ul 10/18/2015 Cbc With Differential Ord2 Long ABS# 0.5 K/ul 10/18/2015 Cbc With Differential Ord2 Eos ABS# 0.2 K/ul 10/18/2015 Cbc With Differential Ord2 Baso ABS# 0.1 K/ul 10/18/2015 Cbc With Differential Ord2 New Analyzer Notice Please note new ref ranges s tarting 08-31-2015 due to implemntation of new five part differential hematolgy analyzer. 10/18/2015 Lipid Ord30 CHOL 140 mg/dL 10/18/2015 Lipid Ord30 HDL 60.0 mg/dl 10/18/2015 Lipid Ord30 TRIG 206 mg/dL 10/18/2015 Lipid Ord30 LDL 39 mg/dL 10/18/2015 Lipid Ord30 C/HDL 2.3 Ratio 10/18/2015 TSH 4026469 TSH 1.042 uIU/ML 12/24/2012 A1C HPLC [id number] A1C HPLC 60086-9 7.6 % 12/24/2012 ESR 1181774 ESR 2 MM/HR 12/23/2012 CHEM 14 5220653 AST 20 U/L 12/23/2012 CHEM 14 3370426 ALT 24 IU/L 12/23/2012 CHEM 14 5846888 BUN 16 MG/DL 12/23/2012 CHEM 14 2595620 ALBUMIN 4.7 GM/DL 12/23/2012 CHEM 14 7941116 CHLORIDE 102 MMOL/L 12/23/2012 CHEM 14 1700533 BILI TOT 0.3 MG/DL 12/23/2012 CHEM 14 5423930 ALK PHOS 109 U/L 12/23/2012 CHEM 14 7503936 SODIUM 142 MMOL/L 12/23/2012 CHEM 14 2355623 CREATINI NE 0.93 MG/DL 12/23/2012 CHEM 14 1194227 CALCIUM 10.0 MG/DL 12/23/2012 CHEM 14 5088864 POTASSIUM 3.7 MMOL/L 12/23/2012 CHEM 14 8903122 PROT TOT 7.2 GM/DL 12/23/2012 CHEM 14 4105738 GLUCOSE 116 MG/DL 12/23/2012 CHEM 14 2217321 BICARB 32 MMOL/L 12/23/2012 CHEM 14 9729966 ANION GAP 8 MEQ/L 12/23/2012 GFR CALC 0828234 GFR AA >60 ML/MIN 12/23/2012 GFR CALC 4310288 GFR NON -AA 59.0L ML/MIN 3 CBC 6823920 WBC 5.5 10e9/L 12/23/2012 CBC 7420758 RBC 4.90 10e12/L 12/23/2012 CBC 6519357 HGB 14.1 g/dL 12/23/2012 CBC 3409593 HCT DET 42.4 % 12/23/2012 CBC [id number] MCV 86.5 fL 12/23/2012 CBC 9781915 MCH 28.8 pg 12/23/2012 CBC 6004737 MCHC 33.3 g/dL 12/23/2012 CBC 8925363 PLT 320 10e9/L 12/23/2012 CBC 6660552 MPV 9.9 fL 12/23/2012 CBC 4873360 BRANDIE % 63.7 % 12/23/2012 CBC 0030958 LY % 24.6 % 12/23/2012 CBC 1193892 MON % 6.3 % 12/23/2012 CBC 5043984 EOS % 4.7 % 12/23/2012 CBC 0854544 BASO % 0.7 % 12/23/2012 CBC 0662686 RDW 15.0 % 12/23/2012 CBC 9662697 ABS BRANDIE 3.50 10e9/L 12/23/2012 CBC 1505449 ABS LYMPH 1.35 10e9/L 12/23/2012 CBC [id number] ABS MONO 0.35 10e9/L 12/23/2012 CBC [id number] ABS EOS 0.26 10e9/L 12/23/2012 CBC 5807770 ABS BASO 0.04 10e9/L 12/23/2012 CBC 3942504 RDW-SD 47.1 fL 12/23/2012 CRP 20071212 CRP 0.1 MG/DL 12/23/2012 URINALYSIS NONAUTO W/O SCOPE 31067 Specific Baker 1.005 DateTime(Free Text in Aprima) URINALYSIS NONAUTO W/O SCOPE 80350 PH 7.5 DateTime(Free Mina t in Aprima) URINALYSIS NONAUTO W/O SCOPE 08275 GLUCOSE NEG DateTime(Free Mina t in Apr) URINALYSIS NONAUTO W/O SCOPE 53035 Protein NEG DateTime(Free Mina t in Apr) URINALYSIS NONAUTO W/O SCOPE 87011 Blood NEG DateTime(Free Mina t in Apr) URINALYSIS NONAUTO W/O SCOPE 22905 Bilirubin NEG DateTime(Free Mina t in Apr) URINALYSIS NONAUTO W/O SCOPE 60179 Ketones NEG DateTime(Free Mina t in Apr) URINALYSIS NONAUTO W/O SCOPE 41802 Urobilinogen NEG DateTime(Free Text in Apr) URINALYSIS NONAUTO W/O SCOPE 23465 Nitrite NEG DateTime(Free Mnia t in ) URINALYSIS NONAUTO W/O SCOPE 74713 Leukocytes NEG DateTime(Free Text in ) Review of Systems System Result Effective Dates Constitutional recent illness 02/16/2019 Constitutional No chills 02/16/2019 Constitutional No diaphoresis 02/16/2019 Constitutional No fever 02/16/2019 Eyes No blindness 2018 Ears/Nose/Throat/Neck dizziness 02/16/2019 Ears/Nose/Throat/Neck nasal allergies 02/16/2019 Ears/Nose/Throat/Neck nasal discharge 02/16/2019 Ears/Nose/Throat/Neck postnasal drip 02/16/2019 Ears/Nose/Throat/Neck No sore throat 02/16/2019 Cardiovascular No chest pain/pressure 02/16/2019 Cardiovascular No dyspnea 02/16/2019 Respiratory No chest congestion 02/16/2019 Respiratory cough 2018 Respiratory No dyspnea 0 02/16/2019 Gastrointestinal No abdominal pain 02/16/2019 Gastrointestinal No constipation 02/16/2019 Gastrointestinal No diarrhea 02/16/2019 Gastrointestinal No nausea 02/16/2019 Gastrointestinal No vomiting 02/16/2019 Dermatologic No rash 08/2018 Neurologic No alteration of consciousness 02/16/2019 Neurologic No mental status change 02/16/2019 Psychiatric No anxiety 0 02/16/2019 Psychiatric depression 0 02/16/2019 Musculoskeletal No stiffness 02/16/2019 Musculoskeletal No back pain 02/16/2019 Constitutional recent illness 02/10/2019 Constitutional No chills 02/10/2019 Constitutional No diaphoresis 02/10/2019 Constitutional No fever 02/10/2019 Eyes No eye erythema Ears/Nose/Throat/Neck nasal allergies 02/10/2019 Ears/Nose/Throat/Neck nasal discharge 02/10/2019 Ears/Nose/Throat/Neck postnasal drip 02/10/2019 Ears/Nose/Throat/Neck No sore throat 02/10/2019 Cardiovascular No chest pain/pressure 02/10/2019 Cardiovascular No dyspnea 02/10/2019 Respiratory No chest congestion 02/10/2019 Respiratory cough 2018 Respiratory No dyspnea 0 02/10/2019 Gastrointestinal No abdominal pain 02/10/2019 Gastrointestinal No constipation 02/10/2019 Gastrointestinal No diarrhea 02/10/2019 Gastrointestinal No nausea 02/10/2019 Gastrointestinal No vomiting 02/10/2019 Dermatologic No rash Neurologic No alteration of consciousness 02/10/2019 Neurologic No mental status change 02/10/2019 Ears/Nose/Throat/Neck dizziness 02/10/2019 Constitutional No recent illness 12/23/2018 Constitutional No fatigue 12/23/2018 Constitutional No fever 12/23/2018 Musculoskeletal stiffness 12/23/2018 Musculoskeletal back pain 12/23/2018 Psychiatric No anxiety 0 12/23/2018 Psychiatric No depression 12/23/2018 Dermatologic No sores Dermatologic No rash 02/2019 Dermatologic ecchymosis 12/23/2018 Respiratory No cough 02/2019 Respiratory No chest tightness 12/23/2018 Respiratory No wheezing 12/23/2018 Respiratory No stridor 0 12/23/2018 Respiratory pleuritic pain 12/23/2018 Cardiovascular No dyspnea 12/23/2018 Cardiovascular No fatigue 12/23/2018 Constitutional No night sweats 06/12/2018 Constitutional No chills 06/12/2018 Constitutional No diaphoresis 06/12/2018 Constitutional fatigue 1 Constitutional No fever 06/12/2018 Constitutional No insomnia 06/12/2018 Constitutional malaise 1 Eyes No blindness 2017 Eyes No eye discharge Eyes No eye erythema Eyes No vision change Ears/Nose/Throat/Neck No dental pain 06/12/2018 Ears/Nose/Throat/Neck No dizziness 06/12/2018 Ears/Nose/Throat/Neck No dysphagia 06/12/2018 Ears/Nose/Throat/Neck No headache 06/12/2018 Ears/Nose/Throat/Neck No hearing loss 06/12/2018 Ears/Nose/Throat/Neck No nasal allergies 06/12/2018 Ears/Nose/Throat/Neck No sore throat 06/12/2018 Ears/Nose/Throat/Neck No postnasal drip 06/12/2018 Ears/Nose/Throat/Neck No sinus congestion 06/12/2018 Ears/Nose/Throat/Neck No sinusitis 06/12/2018 Cardiovascular No chest pain/pressure 06/12/2018 Cardiovascular No dyspnea 06/12/2018 Cardiovascular No edema 06/12/2018 Cardiovascular No exercise intolerance 06/12/2018 Cardiovascular fatigue 1 Cardiovascular No near-syncope/dizziness 06/12/2018 Respiratory No productive sputum 06/12/2018 Respiratory apneic events 06/12/2018 Respiratory No chest congestion 06/12/2018 Respiratory No chest tightness 06/12/2018 Respiratory No cigarette smoking 06/12/2018 Respiratory cough 2017 Respiratory No dyspnea 1 Respiratory No pedal edema 06/12/2018 Respiratory snoring 05/20 Respiratory No wheezing 06/12/2018 Gastrointestinal abdominal pain 06/12/2018 Gastrointestinal No constipation 06/12/2018 Gastrointestinal No diarrhea 06/12/2018 Gastrointestinal dyspepsia 06/12/2018 Gastrointestinal gastroesophageal reflux 06/12/2018 Gastrointestinal No melena 06/12/2018 Gastrointestinal No nausea 06/12/2018 Gastrointestinal No vomiting 06/12/2018 Genitourinary/Nephrology No nocturia 06/12/2018 Musculoskeletal No stiffness 06/12/2018 Musculoskeletal No swelling 06/12/2018 Musculoskeletal bone pain 06/12/2018 Musculoskeletal No muscle weakness 06/12/2018 Musculoskeletal No myalgias 06/12/2018 Dermatologic No rash Neurologic No ataxia Neurologic No dizziness 06/12/2018 Neurologic No pain, facial 06/12/2018 Neurologic No syncope Psychiatric anxiety 05/20 Psychiatric depression 1 Endocrine diabetes mellitus type 2 06/12/2018 Constitutional recent illness 06/12/2018 Constitutional recent illness 05/26/2018 Constitutional No anorexia 05/26/2018 Constitutional No night sweats 05/26/2018 Constitutional No chills 05/26/2018 Constitutional No diaphoresis 05/26/2018 Constitutional fatigue 1 Constitutional No fever 05/26/2018 Constitutional No insomnia 05/26/2018 Constitutional No malaise 05/26/2018 Constitutional No weight loss 05/26/2018 Constitutional No weight gain 05/26/2018 Eyes No eye discharge Eyes No eye erythema 03/2018 Ears/Nose/Throat/Neck headache 05/26/2018 Ears/Nose/Throat/Neck nasal allergies 05/26/2018 Ears/Nose/Throat/Neck No otalgia 05/26/2018 Ears/Nose/Throat/Neck sinus congestion 05/26/2018 Cardiovascular No chest pain/pressure 05/26/2018 Respiratory No productive sputum 05/26/2018 Respiratory chest congestion 05/26/2018 Respiratory cough 2017 Gastrointestinal gastroesophageal reflux 05/26/2018 Gastrointestinal No abdominal pain 05/26/2018 Gastrointestinal constipation 05/26/2018 Gastrointestinal No diarrhea 05/26/2018 Genitourinary/Nephrology No dysuria 05/26/2018 Musculoskeletal No joint complaint 05/26/2018 Dermatologic No rash 03/2018 Neurologic No alteration of consciousness 05/26/2018 Constitutional No night sweats 04/01/2018 Constitutional No chills 04/01/2018 Constitutional No diaphoresis 04/01/2018 Constitutional fatigue 0 04/01/2018 Constitutional No fever 04/01/2018 Constitutional No insomnia 04/01/2018 Constitutional malaise 0 04/01/2018 Eyes No blindness 2017 Eyes No eye discharge Eyes No eye erythema Eyes No vision change Ears/Nose/Throat/Neck No dental pain 04/01/2018 Ears/Nose/Throat/Neck No dizziness 04/01/2018 Ears/Nose/Throat/Neck No dysphagia 04/01/2018 Ears/Nose/Throat/Neck No headache 04/01/2018 Ears/Nose/Throat/Neck No hearing loss 04/01/2018 Ears/Nose/Throat/Neck No nasal allergies 04/01/2018 Ears/Nose/Throat/Neck No sore throat 04/01/2018 Ears/Nose/Throat/Neck No postnasal drip 04/01/2018 Ears/Nose/Throat/Neck No sinus congestion 04/01/2018 Ears/Nose/Throat/Neck No sinusitis 04/01/2018 Cardiovascular No chest pain/pressure 04/01/2018 Cardiovascular No dyspnea 04/01/2018 Cardiovascular No edema 04/01/2018 Cardiovascular No exercise intolerance 04/01/2018 Cardiovascular fatigue 0 04/01/2018 Cardiovascular No near-syncope/dizziness 04/01/2018 Respiratory No productive sputum 04/01/2018 Respiratory No chest congestion 04/01/2018 Respiratory No chest tightness 04/01/2018 Respiratory No cigarette smoking 04/01/2018 Respiratory cough 2017 Respiratory No dyspnea 0 04/01/2018 Respiratory No pedal edema 04/01/2018 Respiratory snoring 03/19 Respiratory No wheezing 04/01/2018 Gastrointestinal abdominal pain 04/01/2018 Gastrointestinal No constipation 04/01/2018 Gastrointestinal No diarrhea 04/01/2018 Gastrointestinal dyspepsia 04/01/2018 Gastrointestinal gastroesophageal reflux 04/01/2018 Gastrointestinal No melena 04/01/2018 Gastrointestinal No nausea 04/01/2018 Gastrointestinal No vomiting 04/01/2018 Genitourinary/Nephrology No dysuria 04/01/2018 Genitourinary/Nephrology No nocturia 04/01/2018 Genitourinary/Nephrology No urinary incontinence 04/01/2018 Musculoskeletal No stiffness 04/01/2018 Musculoskeletal No swelling 04/01/2018 Musculoskeletal bone pain 04/01/2018 Musculoskeletal No muscle weakness 04/01/2018 Musculoskeletal No myalgias 04/01/2018 Dermatologic No rash Neurologic No ataxia Neurologic No dizziness 04/01/2018 Neurologic No pain, facial 04/01/2018 Neurologic No syncope Psychiatric anxiety 03/19 Psychiatric depression 0 04/01/2018 Endocrine diabetes mellitus type 2 04/01/2018 Respiratory apneic events 04/01/2018 Constitutional No night sweats 11/25/2017 Constitutional No chills 11/25/2017 Constitutional No diaphoresis 11/25/2017 Constitutional fatigue 0 11/25/2017 Constitutional No fever 11/25/2017 Constitutional No insomnia 11/25/2017 Constitutional malaise 0 11/25/2017 Eyes No blindness 2017 Eyes No eye discharge Eyes No eye erythema 04/2018 Eyes No vision change Ears/Nose/Throat/Neck No dental pain 11/25/2017 Ears/Nose/Throat/Neck No dizziness 11/25/2017 Ears/Nose/Throat/Neck No dysphagia 11/25/2017 Ears/Nose/Throat/Neck No headache 11/25/2017 Ears/Nose/Throat/Neck No hearing loss 11/25/2017 Ears/Nose/Throat/Neck No nasal allergies 11/25/2017 Ears/Nose/Throat/Neck No sore throat 11/25/2017 Ears/Nose/Throat/Neck No postnasal drip 11/25/2017 Ears/Nose/Throat/Neck No sinus congestion 11/25/2017 Ears/Nose/Throat/Neck No sinusitis 11/25/2017 Cardiovascular No chest pain/pressure 11/25/2017 Cardiovascular No dyspnea 11/25/2017 Cardiovascular No edema 11/25/2017 Cardiovascular No exercise intolerance 11/25/2017 Cardiovascular fatigue 0 11/25/2017 Cardiovascular No near-syncope/dizziness 11/25/2017 Respiratory No productive sputum 11/25/2017 Respiratory No chest congestion 11/25/2017 Respiratory No chest tightness 11/25/2017 Respiratory No cigarette smoking 11/25/2017 Respiratory cough 2017 Respiratory No dyspnea 0 11/25/2017 Respiratory No pedal edema 11/25/2017 Respiratory No snoring 0 11/25/2017 Respiratory No wheezing 11/25/2017 Gastrointestinal abdominal pain 11/25/2017 Gastrointestinal No constipation 11/25/2017 Gastrointestinal No diarrhea 11/25/2017 Gastrointestinal dyspepsia 11/25/2017 Gastrointestinal gastroesophageal reflux 11/25/2017 Gastrointestinal No melena 11/25/2017 Gastrointestinal No nausea 11/25/2017 Gastrointestinal No vomiting 11/25/2017 Genitourinary/Nephrology No dysuria 11/25/2017 Genitourinary/Nephrology No nocturia 11/25/2017 Genitourinary/Nephrology No urinary incontinence 11/25/2017 Musculoskeletal No stiffness 11/25/2017 Musculoskeletal No swelling 11/25/2017 Musculoskeletal bone pain 11/25/2017 Musculoskeletal No muscle weakness 11/25/2017 Musculoskeletal No myalgias 11/25/2017 Dermatologic No rash 04/2018 Neurologic No ataxia 04/2018 Neurologic No dizziness 11/25/2017 Neurologic No pain, facial 11/25/2017 Neurologic No syncope Psychiatric anxiety 04/04/2018 Psychiatric depression 0 11/25/2017 Endocrine diabetes mellitus type 2 11/25/2017 Constitutional No night sweats 09/18/2017 Constitutional No chills 09/18/2017 Constitutional No diaphoresis 09/18/2017 Constitutional fatigue 0 09/18/2017 Constitutional No fever 09/18/2017 Constitutional No insomnia 09/18/2017 Constitutional malaise 0 09/18/2017 Eyes No blindness 2017 Eyes No eye discharge Eyes No eye erythema Eyes No vision change Ears/Nose/Throat/Neck No dental pain 09/18/2017 Ears/Nose/Throat/Neck No dizziness 09/18/2017 Ears/Nose/Throat/Neck No dysphagia 09/18/2017 Ears/Nose/Throat/Neck No headache 09/18/2017 Ears/Nose/Throat/Neck No hearing loss 09/18/2017 Ears/Nose/Throat/Neck No nasal allergies 09/18/2017 Ears/Nose/Throat/Neck sore throat 09/18/2017 Ears/Nose/Throat/Neck No postnasal drip 09/18/2017 Ears/Nose/Throat/Neck No sinus congestion 09/18/2017 Ears/Nose/Throat/Neck No sinusitis 09/18/2017 Cardiovascular No chest pain/pressure 09/18/2017 Cardiovascular No dyspnea 09/18/2017 Cardiovascular No edema 09/18/2017 Cardiovascular No exercise intolerance 09/18/2017 Cardiovascular fatigue 0 09/18/2017 Cardiovascular No near-syncope/dizziness 09/18/2017 Respiratory No productive sputum 09/18/2017 Respiratory No chest congestion 09/18/2017 Respiratory No chest tightness 09/18/2017 Respiratory No cigarette smoking 09/18/2017 Respiratory cough 2017 Respiratory No dyspnea 0 09/18/2017 Respiratory No pedal edema 09/18/2017 Respiratory No snoring 0 09/18/2017 Respiratory No wheezing 09/18/2017 Gastrointestinal abdominal pain 09/18/2017 Gastrointestinal No constipation 09/18/2017 Gastrointestinal No diarrhea 09/18/2017 Gastrointestinal dyspepsia 09/18/2017 Gastrointestinal gastroesophageal reflux 09/18/2017 Gastrointestinal No melena 09/18/2017 Gastrointestinal No nausea 09/18/2017 Gastrointestinal No vomiting 09/18/2017 Genitourinary/Nephrology No dysuria 09/18/2017 Genitourinary/Nephrology No nocturia 09/18/2017 Genitourinary/Nephrology No urinary incontinence 09/18/2017 Musculoskeletal No stiffness 09/18/2017 Musculoskeletal No swelling 09/18/2017 Musculoskeletal bone pain 09/18/2017 Musculoskeletal No muscle weakness 09/18/2017 Musculoskeletal No myalgias 09/18/2017 Dermatologic No rash Neurologic No ataxia Neurologic No dizziness 09/18/2017 Neurologic No pain, facial 09/18/2017 Neurologic No syncope Psychiatric anxiety 08/21 Psychiatric depression 0 09/18/2017 Endocrine diabetes mellitus type 2 09/18/2017 Constitutional No night sweats 05/02/2017 Constitutional No chills 05/02/2017 Constitutional No diaphoresis 05/02/2017 Constitutional fatigue 0 05/02/2017 Constitutional No fever 05/02/2017 Constitutional No insomnia 05/02/2017 Constitutional malaise 0 05/02/2017 Eyes No blindness 2016 Eyes No eye discharge Eyes No eye erythema Eyes No vision change Ears/Nose/Throat/Neck No dental pain 05/02/2017 Ears/Nose/Throat/Neck No dizziness 05/02/2017 Ears/Nose/Throat/Neck No dysphagia 05/02/2017 Ears/Nose/Throat/Neck No headache 05/02/2017 Ears/Nose/Throat/Neck No hearing loss 05/02/2017 Ears/Nose/Throat/Neck No nasal allergies 05/02/2017 Ears/Nose/Throat/Neck No sore throat 05/02/2017 Ears/Nose/Throat/Neck No postnasal drip 05/02/2017 Ears/Nose/Throat/Neck No sinus congestion 05/02/2017 Ears/Nose/Throat/Neck No sinusitis 05/02/2017 Cardiovascular No chest pain/pressure 05/02/2017 Cardiovascular No dyspnea 05/02/2017 Cardiovascular No edema 05/02/2017 Cardiovascular No exercise intolerance 05/02/2017 Cardiovascular fatigue 0 05/02/2017 Cardiovascular No near-syncope/dizziness 05/02/2017 Respiratory No productive sputum 05/02/2017 Respiratory No chest congestion 05/02/2017 Respiratory No chest tightness 05/02/2017 Respiratory No cigarette smoking 05/02/2017 Respiratory cough 2016 Respiratory No dyspnea 0 05/02/2017 Respiratory No pedal edema 05/02/2017 Respiratory No snoring 0 05/02/2017 Respiratory No wheezing 05/02/2017 Gastrointestinal abdominal pain 05/02/2017 Gastrointestinal No constipation 05/02/2017 Gastrointestinal No diarrhea 05/02/2017 Gastrointestinal dyspepsia 05/02/2017 Gastrointestinal gastroesophageal reflux 05/02/2017 Gastrointestinal No melena 05/02/2017 Gastrointestinal No nausea 05/02/2017 Gastrointestinal No vomiting 05/02/2017 Genitourinary/Nephrology No dysuria 05/02/2017 Genitourinary/Nephrology No nocturia 05/02/2017 Genitourinary/Nephrology No urinary incontinence 05/02/2017 Musculoskeletal No stiffness 05/02/2017 Musculoskeletal No swelling 05/02/2017 Musculoskeletal bone pain 05/02/2017 Musculoskeletal No muscle weakness 05/02/2017 Musculoskeletal No myalgias 05/02/2017 Dermatologic No rash Neurologic No ataxia Neurologic No dizziness 05/02/2017 Neurologic No pain, facial 05/02/2017 Neurologic No syncope Psychiatric anxiety 04/19 Psychiatric depression 0 05/02/2017 Endocrine diabetes mellitus type 2 05/02/2017 Constitutional recent illness 03/29/2017 Constitutional No anorexia 03/29/2017 Constitutional No night sweats 03/29/2017 Constitutional No chills 03/29/2017 Constitutional No diaphoresis 03/29/2017 Constitutional fatigue 0 03/29/2017 Constitutional No fever 03/29/2017 Constitutional No insomnia 03/29/2017 Constitutional No malaise 03/29/2017 Constitutional No weight loss 03/29/2017 Constitutional No weight gain 03/29/2017 Ears/Nose/Throat/Neck nasal allergies 03/29/2017 Ears/Nose/Throat/Neck oral pain 03/29/2017 Respiratory cough 2016 Gastrointestinal No abdominal pain 03/29/2017 Genitourinary/Nephrology No dysuria 03/29/2017 Musculoskeletal No joint complaint 03/29/2017 Dermatologic No rash 06/2017 Dermatologic No sores Neurologic No alteration of consciousness 03/29/2017 Constitutional No night sweats 11/15/2016 Constitutional No chills 11/15/2016 Constitutional No diaphoresis 11/15/2016 Constitutional fatigue 0 11/15/2016 Constitutional No fever 11/15/2016 Constitutional No insomnia 11/15/2016 Constitutional malaise 0 11/15/2016 Eyes No blindness 2016 Eyes No eye discharge Eyes No eye erythema Eyes No vision change Ears/Nose/Throat/Neck No dental pain 11/15/2016 Ears/Nose/Throat/Neck No dizziness 11/15/2016 Ears/Nose/Throat/Neck No dysphagia 11/15/2016 Ears/Nose/Throat/Neck No headache 11/15/2016 Ears/Nose/Throat/Neck No hearing loss 11/15/2016 Ears/Nose/Throat/Neck No nasal allergies 11/15/2016 Ears/Nose/Throat/Neck No sore throat 11/15/2016 Ears/Nose/Throat/Neck No postnasal drip 11/15/2016 Ears/Nose/Throat/Neck No sinus congestion 11/15/2016 Ears/Nose/Throat/Neck No sinusitis 11/15/2016 Cardiovascular No chest pain/pressure 11/15/2016 Cardiovascular No dyspnea 11/15/2016 Cardiovascular No edema 11/15/2016 Cardiovascular No exercise intolerance 11/15/2016 Cardiovascular fatigue 0 11/15/2016 Cardiovascular No near-syncope/dizziness 11/15/2016 Respiratory No productive sputum 11/15/2016 Respiratory No chest congestion 11/15/2016 Respiratory No chest tightness 11/15/2016 Respiratory No cigarette smoking 11/15/2016 Respiratory cough 2016 Respiratory No dyspnea 0 11/15/2016 Respiratory No pedal edema 11/15/2016 Respiratory No snoring 0 11/15/2016 Respiratory No wheezing 11/15/2016 Gastrointestinal abdominal pain 11/15/2016 Gastrointestinal No constipation 11/15/2016 Gastrointestinal No diarrhea 11/15/2016 Gastrointestinal dyspepsia 11/15/2016 Gastrointestinal gastroesophageal reflux 11/15/2016 Gastrointestinal No melena 11/15/2016 Gastrointestinal No nausea 11/15/2016 Gastrointestinal No vomiting 11/15/2016 Genitourinary/Nephrology No dysuria 11/15/2016 Genitourinary/Nephrology No nocturia 11/15/2016 Genitourinary/Nephrology No urinary incontinence 11/15/2016 Musculoskeletal No stiffness 11/15/2016 Musculoskeletal No swelling 11/15/2016 Musculoskeletal bone pain 11/15/2016 Musculoskeletal No muscle weakness 11/15/2016 Musculoskeletal No myalgias 11/15/2016 Dermatologic No rash Neurologic No ataxia Neurologic No dizziness 11/15/2016 Neurologic No pain, facial 11/15/2016 Neurologic No syncope Psychiatric anxiety 10/19 Psychiatric depression 0 11/15/2016 Endocrine diabetes mellitus type 2 11/15/2016 Constitutional No chills 11/06/2016 Constitutional diaphoresis 11/06/2016 Constitutional fatigue 0 11/06/2016 Constitutional No fever 11/06/2016 Constitutional malaise 0 11/06/2016 Eyes No eye erythema Eyes No eye discharge Eyes No eye erythema Eyes No vision change Ears/Nose/Throat/Neck nasal allergies 11/06/2016 Ears/Nose/Throat/Neck No sinusitis 11/06/2016 Cardiovascular No chest pain/pressure 11/06/2016 Cardiovascular fatigue 0 11/06/2016 Respiratory No chest congestion 11/06/2016 Respiratory cough 2016 Respiratory No dyspnea 0 11/06/2016 Gastrointestinal No vomiting 11/06/2016 Dermatologic No rash Psychiatric anxiety 10/18 Psychiatric depression 0 11/06/2016 Endocrine diabetes mellitus type 2 11/06/2016 Ears/Nose/Throat/Neck No nasal discharge 11/06/2016 Respiratory dyspnea on exertion 11/06/2016 Gastrointestinal No nausea 11/06/2016 Gastrointestinal No constipation 11/06/2016 Genitourinary/Nephrology No dysuria 11/06/2016 Neurologic No alteration of consciousness 11/06/2016 Neurologic No mental status change 11/06/2016 Constitutional No night sweats 08/01/2016 Constitutional No chills 08/01/2016 Constitutional No diaphoresis 08/01/2016 Constitutional fatigue 1 10/02/2015 Constitutional No fever 08/01/2016 Constitutional No insomnia 08/01/2016 Constitutional malaise 1 10/02/2015 Eyes No blindness 2015 Eyes No eye discharge Eyes No eye erythema Eyes No vision change Ears/Nose/Throat/Neck No dental pain 08/01/2016 Ears/Nose/Throat/Neck No dizziness 08/01/2016 Ears/Nose/Throat/Neck No dysphagia 08/01/2016 Ears/Nose/Throat/Neck No headache 08/01/2016 Ears/Nose/Throat/Neck No hearing loss 08/01/2016 Ears/Nose/Throat/Neck No nasal allergies 08/01/2016 Ears/Nose/Throat/Neck No sore throat 08/01/2016 Ears/Nose/Throat/Neck No postnasal drip 08/01/2016 Ears/Nose/Throat/Neck No sinus congestion 08/01/2016 Ears/Nose/Throat/Neck No sinusitis 08/01/2016 Cardiovascular No chest pain/pressure 08/01/2016 Cardiovascular No dyspnea 08/01/2016 Cardiovascular No edema 08/01/2016 Cardiovascular No exercise intolerance 08/01/2016 Cardiovascular fatigue 1 10/02/2015 Cardiovascular No near-syncope/dizziness 08/01/2016 Respiratory No productive sputum 08/01/2016 Respiratory No chest congestion 08/01/2016 Respiratory No chest tightness 08/01/2016 Respiratory No cigarette smoking 08/01/2016 Respiratory cough 2015 Respiratory No dyspnea 1 10/02/2015 Respiratory No pedal edema 08/01/2016 Respiratory No snoring 1 10/02/2015 Respiratory No wheezing 08/01/2016 Gastrointestinal abdominal pain 08/01/2016 Gastrointestinal No constipation 08/01/2016 Gastrointestinal No diarrhea 08/01/2016 Gastrointestinal dyspepsia 08/01/2016 Gastrointestinal gastroesophageal reflux 08/01/2016 Gastrointestinal No melena 08/01/2016 Gastrointestinal No nausea 08/01/2016 Gastrointestinal No vomiting 08/01/2016 Genitourinary/Nephrology No dysuria 08/01/2016 Genitourinary/Nephrology No nocturia 08/01/2016 Genitourinary/Nephrology No urinary incontinence 08/01/2016 Musculoskeletal No stiffness 08/01/2016 Musculoskeletal No swelling 08/01/2016 Musculoskeletal bone pain 08/01/2016 Musculoskeletal No muscle weakness 08/01/2016 Musculoskeletal No myalgias 08/01/2016 Dermatologic No rash Neurologic No ataxia Neurologic No dizziness 08/01/2016 Neurologic No pain, facial 08/01/2016 Neurologic No syncope Psychiatric anxiety 07/19 Psychiatric depression 1 10/02/2015 Endocrine diabetes mellitus type 2 08/01/2016 Constitutional No night sweats 07/02/2016 Constitutional No chills 07/02/2016 Constitutional No diaphoresis 07/02/2016 Constitutional fatigue 1 09/01/2015 Constitutional No fever 07/02/2016 Constitutional No insomnia 07/02/2016 Constitutional malaise 1 09/01/2015 Eyes No eye erythema Eyes No vision change Ears/Nose/Throat/Neck No dental pain 07/02/2016 Ears/Nose/Throat/Neck No dizziness 07/02/2016 Ears/Nose/Throat/Neck No dysphagia 07/02/2016 Ears/Nose/Throat/Neck No headache 07/02/2016 Ears/Nose/Throat/Neck No hearing loss 07/02/2016 Ears/Nose/Throat/Neck No nasal allergies 07/02/2016 Ears/Nose/Throat/Neck No sore throat 07/02/2016 Ears/Nose/Throat/Neck No postnasal drip 07/02/2016 Ears/Nose/Throat/Neck No sinus congestion 07/02/2016 Ears/Nose/Throat/Neck No sinusitis 07/02/2016 Cardiovascular No chest pain/pressure 07/02/2016 Cardiovascular No dyspnea 07/02/2016 Cardiovascular No edema 07/02/2016 Cardiovascular No exercise intolerance 07/02/2016 Cardiovascular fatigue 1 09/01/2015 Cardiovascular No near-syncope/dizziness 07/02/2016 Respiratory No productive sputum 07/02/2016 Respiratory No chest congestion 07/02/2016 Respiratory No chest tightness 07/02/2016 Respiratory No cigarette smoking 07/02/2016 Respiratory cough 2015 Respiratory No dyspnea 1 09/01/2015 Respiratory No pedal edema 07/02/2016 Respiratory No snoring 1 09/01/2015 Respiratory No wheezing 07/02/2016 Gastrointestinal abdominal pain 07/02/2016 Gastrointestinal dyspepsia 07/02/2016 Gastrointestinal gastroesophageal reflux 07/02/2016 Gastrointestinal No melena 07/02/2016 Gastrointestinal nausea 07/02/2016 Gastrointestinal No vomiting 07/02/2016 Genitourinary/Nephrology No dysuria 07/02/2016 Genitourinary/Nephrology No nocturia 07/02/2016 Genitourinary/Nephrology No urinary incontinence 07/02/2016 Musculoskeletal No stiffness 07/02/2016 Musculoskeletal No swelling 07/02/2016 Musculoskeletal bone pain 07/02/2016 Musculoskeletal No muscle weakness 07/02/2016 Musculoskeletal No myalgias 07/02/2016 Neurologic No alteration of consciousness 07/02/2016 Neurologic No ataxia Neurologic No dizziness 07/02/2016 Neurologic headache 06/19 Neurologic No pain, facial 07/02/2016 Neurologic neck pain Neurologic No syncope Psychiatric anxiety 06/19 Psychiatric depression 1 09/01/2015 Endocrine diabetes mellitus type 2 07/02/2016 Constitutional No night sweats 06/04/2016 Constitutional No chills 06/04/2016 Constitutional No diaphoresis 06/04/2016 Constitutional fatigue 1 Constitutional No fever 06/04/2016 Constitutional No insomnia 06/04/2016 Constitutional malaise 1 Eyes No blindness 2015 Eyes No eye discharge Eyes No eye erythema Eyes No vision change Ears/Nose/Throat/Neck No dental pain 06/04/2016 Ears/Nose/Throat/Neck No dizziness 06/04/2016 Ears/Nose/Throat/Neck No dysphagia 06/04/2016 Ears/Nose/Throat/Neck No headache 06/04/2016 Ears/Nose/Throat/Neck No hearing loss 06/04/2016 Ears/Nose/Throat/Neck No nasal allergies 06/04/2016 Ears/Nose/Throat/Neck No sore throat 06/04/2016 Ears/Nose/Throat/Neck No postnasal drip 06/04/2016 Ears/Nose/Throat/Neck No sinus congestion 06/04/2016 Ears/Nose/Throat/Neck No sinusitis 06/04/2016 Cardiovascular No chest pain/pressure 06/04/2016 Cardiovascular No dyspnea 06/04/2016 Cardiovascular No edema 06/04/2016 Cardiovascular No exercise intolerance 06/04/2016 Cardiovascular fatigue 1 Cardiovascular No near-syncope/dizziness 06/04/2016 Respiratory No productive sputum 06/04/2016 Respiratory No chest congestion 06/04/2016 Respiratory No chest tightness 06/04/2016 Respiratory No cigarette smoking 06/04/2016 Respiratory cough 2015 Respiratory No dyspnea 1 Respiratory No pedal edema 06/04/2016 Respiratory No snoring 1 Respiratory No wheezing 06/04/2016 Gastrointestinal abdominal pain 06/04/2016 Gastrointestinal No constipation 06/04/2016 Gastrointestinal No diarrhea 06/04/2016 Gastrointestinal dyspepsia 06/04/2016 Gastrointestinal gastroesophageal reflux 06/04/2016 Gastrointestinal No melena 06/04/2016 Gastrointestinal No nausea 06/04/2016 Gastrointestinal No vomiting 06/04/2016 Genitourinary/Nephrology No dysuria 06/04/2016 Genitourinary/Nephrology No nocturia 06/04/2016 Genitourinary/Nephrology No urinary incontinence 06/04/2016 Musculoskeletal No stiffness 06/04/2016 Musculoskeletal No swelling 06/04/2016 Musculoskeletal bone pain 06/04/2016 Musculoskeletal No muscle weakness 06/04/2016 Musculoskeletal No myalgias 06/04/2016 Dermatologic No rash Neurologic No alteration of consciousness 06/04/2016 Neurologic No ataxia Neurologic No dizziness 06/04/2016 Neurologic headache 05/19 Neurologic No pain, facial 06/04/2016 Neurologic neck pain Neurologic No syncope Psychiatric anxiety 05/19 Psychiatric depression 1 Endocrine diabetes mellitus type 2 06/04/2016 Constitutional No night sweats 03/26/2016 Constitutional No chills 03/26/2016 Constitutional No diaphoresis 03/26/2016 Constitutional fatigue 0 03/26/2016 Constitutional No fever 03/26/2016 Constitutional No insomnia 03/26/2016 Constitutional malaise 0 03/26/2016 Eyes No blindness 2015 Eyes No eye discharge Eyes No eye erythema 03/2016 Eyes No vision change Ears/Nose/Throat/Neck No dental pain 03/26/2016 Ears/Nose/Throat/Neck No dizziness 03/26/2016 Ears/Nose/Throat/Neck No dysphagia 03/26/2016 Ears/Nose/Throat/Neck No headache 03/26/2016 Ears/Nose/Throat/Neck No hearing loss 03/26/2016 Ears/Nose/Throat/Neck No nasal allergies 03/26/2016 Ears/Nose/Throat/Neck No sore throat 03/26/2016 Ears/Nose/Throat/Neck No postnasal drip 03/26/2016 Ears/Nose/Throat/Neck No sinus congestion 03/26/2016 Ears/Nose/Throat/Neck No sinusitis 03/26/2016 Cardiovascular No chest pain/pressure 03/26/2016 Cardiovascular No dyspnea 03/26/2016 Cardiovascular No edema 03/26/2016 Cardiovascular No exercise intolerance 03/26/2016 Cardiovascular fatigue 0 03/26/2016 Cardiovascular No near-syncope/dizziness 03/26/2016 Respiratory No productive sputum 03/26/2016 Respiratory No chest congestion 03/26/2016 Respiratory No chest tightness 03/26/2016 Respiratory No cigarette smoking 03/26/2016 Respiratory cough 2015 Respiratory No dyspnea 0 03/26/2016 Respiratory No pedal edema 03/26/2016 Respiratory No snoring 0 03/26/2016 Respiratory No wheezing 03/26/2016 Gastrointestinal abdominal pain 03/26/2016 Gastrointestinal No constipation 03/26/2016 Gastrointestinal No diarrhea 03/26/2016 Gastrointestinal dyspepsia 03/26/2016 Gastrointestinal gastroesophageal reflux 03/26/2016 Gastrointestinal No melena 03/26/2016 Gastrointestinal No nausea 03/26/2016 Gastrointestinal No vomiting 03/26/2016 Genitourinary/Nephrology No dysuria 03/26/2016 Genitourinary/Nephrology No nocturia 03/26/2016 Genitourinary/Nephrology No urinary incontinence 03/26/2016 Musculoskeletal No stiffness 03/26/2016 Musculoskeletal No swelling 03/26/2016 Musculoskeletal bone pain 03/26/2016 Musculoskeletal No muscle weakness 03/26/2016 Musculoskeletal No myalgias 03/26/2016 Dermatologic No rash 03/2016 Neurologic No alteration of consciousness 03/26/2016 Neurologic No ataxia 03/2016 Neurologic No dizziness 03/26/2016 Neurologic headache 0 03/2016 Neurologic No pain, facial 03/26/2016 Neurologic neck pain 03/2016 Neurologic No syncope Psychiatric anxiety 03/2016 Psychiatric depression 0 03/26/2016 Endocrine diabetes mellitus type 2 03/26/2016 Constitutional No night sweats 11/23/2015 Constitutional No chills 11/23/2015 Constitutional No diaphoresis 11/23/2015 Constitutional fatigue 0 11/23/2015 Constitutional No fever 11/23/2015 Constitutional No insomnia 11/23/2015 Constitutional malaise 0 11/23/2015 Eyes No blindness 2015 Eyes No eye discharge Eyes No eye erythema 01/2016 Eyes No vision change Ears/Nose/Throat/Neck No dental pain 11/23/2015 Ears/Nose/Throat/Neck No dizziness 11/23/2015 Ears/Nose/Throat/Neck No dysphagia 11/23/2015 Ears/Nose/Throat/Neck No headache 11/23/2015 Ears/Nose/Throat/Neck No hearing loss 11/23/2015 Ears/Nose/Throat/Neck No nasal allergies 11/23/2015 Ears/Nose/Throat/Neck No sore throat 11/23/2015 Ears/Nose/Throat/Neck No postnasal drip 11/23/2015 Ears/Nose/Throat/Neck No sinus congestion 11/23/2015 Ears/Nose/Throat/Neck No sinusitis 11/23/2015 Cardiovascular No chest pain/pressure 11/23/2015 Cardiovascular No dyspnea 11/23/2015 Cardiovascular No edema 11/23/2015 Cardiovascular No exercise intolerance 11/23/2015 Cardiovascular fatigue 0 11/23/2015 Cardiovascular No near-syncope/dizziness 11/23/2015 Respiratory No productive sputum 11/23/2015 Respiratory No chest congestion 11/23/2015 Respiratory No chest tightness 11/23/2015 Respiratory No cigarette smoking 11/23/2015 Respiratory cough 2015 Respiratory No dyspnea 0 11/23/2015 Respiratory No pedal edema 11/23/2015 Respiratory No snoring 0 11/23/2015 Respiratory No wheezing 11/23/2015 Gastrointestinal abdominal pain 11/23/2015 Gastrointestinal No constipation 11/23/2015 Gastrointestinal No diarrhea 11/23/2015 Gastrointestinal dyspepsia 11/23/2015 Gastrointestinal gastroesophageal reflux 11/23/2015 Gastrointestinal No melena 11/23/2015 Gastrointestinal No nausea 11/23/2015 Gastrointestinal No vomiting 11/23/2015 Genitourinary/Nephrology No dysuria 11/23/2015 Genitourinary/Nephrology No nocturia 11/23/2015 Genitourinary/Nephrology No urinary incontinence 11/23/2015 Musculoskeletal No stiffness 11/23/2015 Musculoskeletal No swelling 11/23/2015 Musculoskeletal bone pain 11/23/2015 Musculoskeletal No muscle weakness 11/23/2015 Musculoskeletal No myalgias 11/23/2015 Dermatologic No rash 01/2016 Neurologic No alteration of consciousness 11/23/2015 Neurologic No ataxia 01/2016 Neurologic No dizziness 11/23/2015 Neurologic headache 04/0 01/2016 Neurologic No pain, facial 11/23/2015 Neurologic neck pain 01/2016 Neurologic No syncope Psychiatric anxiety 04/0 01/2016 Psychiatric depression 0 11/23/2015 Endocrine diabetes mellitus type 2 11/23/2015 Constitutional No night sweats 10/14/2015 Constitutional No chills 10/14/2015 Constitutional No diaphoresis 10/14/2015 Constitutional fatigue 0 10/14/2015 Constitutional No fever 10/14/2015 Constitutional No insomnia 10/14/2015 Constitutional malaise 0 10/14/2015 Eyes No blindness 2015 Eyes No eye discharge Eyes No eye erythema Eyes No vision change Ears/Nose/Throat/Neck No dental pain 10/14/2015 Ears/Nose/Throat/Neck No dizziness 10/14/2015 Ears/Nose/Throat/Neck No dysphagia 10/14/2015 Ears/Nose/Throat/Neck No headache 10/14/2015 Ears/Nose/Throat/Neck No hearing loss 10/14/2015 Ears/Nose/Throat/Neck No nasal allergies 10/14/2015 Ears/Nose/Throat/Neck No sore throat 10/14/2015 Ears/Nose/Throat/Neck No postnasal drip 10/14/2015 Ears/Nose/Throat/Neck No sinus congestion 10/14/2015 Ears/Nose/Throat/Neck No sinusitis 10/14/2015 Cardiovascular No chest pain/pressure 10/14/2015 Cardiovascular No dyspnea 10/14/2015 Cardiovascular No edema 10/14/2015 Cardiovascular No exercise intolerance 10/14/2015 Cardiovascular fatigue 0 10/14/2015 Cardiovascular No near-syncope/dizziness 10/14/2015 Respiratory No productive sputum 10/14/2015 Respiratory No chest congestion 10/14/2015 Respiratory No chest tightness 10/14/2015 Respiratory No cigarette smoking 10/14/2015 Respiratory cough 2015 Respiratory No dyspnea 0 10/14/2015 Respiratory No pedal edema 10/14/2015 Respiratory No snoring 0 10/14/2015 Respiratory No wheezing 10/14/2015 Gastrointestinal abdominal pain 10/14/2015 Gastrointestinal No constipation 10/14/2015 Gastrointestinal No diarrhea 10/14/2015 Gastrointestinal dyspepsia 10/14/2015 Gastrointestinal gastroesophageal reflux 10/14/2015 Gastrointestinal No melena 10/14/2015 Gastrointestinal No nausea 10/14/2015 Gastrointestinal No vomiting 10/14/2015 Genitourinary/Nephrology No dysuria 10/14/2015 Genitourinary/Nephrology No nocturia 10/14/2015 Genitourinary/Nephrology No urinary incontinence 10/14/2015 Musculoskeletal No stiffness 10/14/2015 Musculoskeletal No swelling 10/14/2015 Musculoskeletal bone pain 10/14/2015 Musculoskeletal No muscle weakness 10/14/2015 Musculoskeletal No myalgias 10/14/2015 Dermatologic No rash Neurologic No alteration of consciousness 10/14/2015 Neurologic No ataxia Neurologic No dizziness 10/14/2015 Neurologic headache 09/20 Neurologic No pain, facial 10/14/2015 Neurologic neck pain Neurologic No syncope Psychiatric anxiety 09/20 Psychiatric depression 0 10/14/2015 Endocrine diabetes mellitus type 2 10/14/2015 Constitutional No night sweats 03/31/2015 Constitutional No chills 03/31/2015 Constitutional No diaphoresis 03/31/2015 Constitutional fatigue 0 03/31/2015 Constitutional No fever 03/31/2015 Constitutional No insomnia 03/31/2015 Constitutional malaise 0 03/31/2015 Eyes No blindness 2014 Eyes No eye discharge Eyes No eye erythema Eyes No vision change Ears/Nose/Throat/Neck No dental pain 03/31/2015 Ears/Nose/Throat/Neck No dizziness 03/31/2015 Ears/Nose/Throat/Neck No dysphagia 03/31/2015 Ears/Nose/Throat/Neck No headache 03/31/2015 Ears/Nose/Throat/Neck No hearing loss 03/31/2015 Ears/Nose/Throat/Neck No nasal allergies 03/31/2015 Ears/Nose/Throat/Neck No sore throat 03/31/2015 Ears/Nose/Throat/Neck No postnasal drip 03/31/2015 Ears/Nose/Throat/Neck No sinus congestion 03/31/2015 Ears/Nose/Throat/Neck No sinusitis 03/31/2015 Cardiovascular No chest pain/pressure 03/31/2015 Cardiovascular No dyspnea 03/31/2015 Cardiovascular No edema 03/31/2015 Cardiovascular No exercise intolerance 03/31/2015 Cardiovascular fatigue 0 03/31/2015 Cardiovascular No near-syncope/dizziness 03/31/2015 Respiratory No productive sputum 03/31/2015 Respiratory No chest congestion 03/31/2015 Respiratory No chest tightness 03/31/2015 Respiratory No cigarette smoking 03/31/2015 Respiratory cough 2014 Respiratory No dyspnea 0 03/31/2015 Respiratory No pedal edema 03/31/2015 Respiratory No snoring 0 03/31/2015 Respiratory No wheezing 03/31/2015 Gastrointestinal abdominal pain 03/31/2015 Gastrointestinal No constipation 03/31/2015 Gastrointestinal No diarrhea 03/31/2015 Gastrointestinal dyspepsia 03/31/2015 Gastrointestinal gastroesophageal reflux 03/31/2015 Gastrointestinal No melena 03/31/2015 Gastrointestinal No nausea 03/31/2015 Gastrointestinal No vomiting 03/31/2015 Genitourinary/Nephrology No dysuria 03/31/2015 Genitourinary/Nephrology No nocturia 03/31/2015 Genitourinary/Nephrology No urinary incontinence 03/31/2015 Musculoskeletal No stiffness 03/31/2015 Musculoskeletal No swelling 03/31/2015 Musculoskeletal bone pain 03/31/2015 Musculoskeletal No muscle weakness 03/31/2015 Musculoskeletal No myalgias 03/31/2015 Dermatologic No rash Neurologic No alteration of consciousness 03/31/2015 Neurologic No ataxia Neurologic No dizziness 03/31/2015 Neurologic headache 03/19 Neurologic No pain, facial 03/31/2015 Neurologic neck pain Neurologic No syncope Psychiatric anxiety 03/19 Psychiatric depression 0 03/31/2015 Endocrine diabetes mellitus type 2 03/31/2015 Constitutional recent illness 08/31/2014 Constitutional No anorexia 08/31/2014 Constitutional No night sweats 08/31/2014 Constitutional No chills 08/31/2014 Constitutional No diaphoresis 08/31/2014 Constitutional No fatigue 08/31/2014 Constitutional No fever 08/31/2014 Constitutional No insomnia 08/31/2014 Constitutional No malaise 08/31/2014 Eyes No blindness 2014 Eyes No eye discharge Eyes No eye erythema Eyes No vision change Ears/Nose/Throat/Neck No dental pain 08/31/2014 Ears/Nose/Throat/Neck No dizziness 08/31/2014 Ears/Nose/Throat/Neck No dysphagia 08/31/2014 Ears/Nose/Throat/Neck No headache 08/31/2014 Ears/Nose/Throat/Neck No hearing loss 08/31/2014 Ears/Nose/Throat/Neck No nasal allergies 08/31/2014 Ears/Nose/Throat/Neck No sore throat 08/31/2014 Ears/Nose/Throat/Neck No postnasal drip 08/31/2014 Ears/Nose/Throat/Neck No sinus congestion 08/31/2014 Ears/Nose/Throat/Neck No sinusitis 08/31/2014 Cardiovascular No chest pain/pressure 08/31/2014 Cardiovascular No dyspnea 08/31/2014 Cardiovascular No edema 08/31/2014 Cardiovascular No exercise intolerance 08/31/2014 Cardiovascular No fatigue 08/31/2014 Cardiovascular No near-syncope/dizziness 08/31/2014 Cardiovascular No syncope 08/31/2014 Respiratory No productive sputum 08/31/2014 Respiratory No chest congestion 08/31/2014 Respiratory No chest tightness 08/31/2014 Respiratory No cigarette smoking 08/31/2014 Respiratory No cough Respiratory No dyspnea 0 08/31/2014 Respiratory No pedal edema 08/31/2014 Respiratory No snoring 0 08/31/2014 Respiratory No wheezing 08/31/2014 Gastrointestinal No hemorrhoids 08/31/2014 Gastrointestinal No abdominal pain 08/31/2014 Gastrointestinal No constipation 08/31/2014 Gastrointestinal No diarrhea 08/31/2014 Gastrointestinal No dyspepsia 08/31/2014 Gastrointestinal No gastroesophageal reflu x 08/31/2014 Gastrointestinal No melena 08/31/2014 Gastrointestinal No nausea 08/31/2014 Gastrointestinal No vomiting 08/31/2014 Genitourinary/Nephrology No dysuria 08/31/2014 Genitourinary/Nephrology No nocturia 08/31/2014 Genitourinary/Nephrology No urinary incontinence 08/31/2014 Musculoskeletal No stiffness 08/31/2014 Musculoskeletal No swelling 08/31/2014 Musculoskeletal bone pain 08/31/2014 Musculoskeletal No muscle weakness 08/31/2014 Musculoskeletal No myalgias 08/31/2014 Dermatologic No rash Neurologic No alteration of consciousness 08/31/2014 Neurologic No ataxia Neurologic No dizziness 08/31/2014 Neurologic headache 08/19 Neurologic No pain, facial 08/31/2014 Neurologic neck pain Neurologic No syncope Psychiatric anxiety 08/19 Psychiatric depression 0 08/31/2014 Constitutional No anorexia 08/10/2014 Constitutional No night sweats 08/10/2014 Constitutional No chills 08/10/2014 Constitutional No diaphoresis 08/10/2014 Constitutional No fatigue 08/10/2014 Constitutional No fever 08/10/2014 Constitutional No insomnia 08/10/2014 Constitutional No malaise 08/10/2014 Eyes No blindness 2013 Eyes No eye discharge Eyes No eye erythema Eyes No vision change Ears/Nose/Throat/Neck No dental pain 08/10/2014 Ears/Nose/Throat/Neck No dizziness 08/10/2014 Ears/Nose/Throat/Neck No dysphagia 08/10/2014 Ears/Nose/Throat/Neck No headache 08/10/2014 Ears/Nose/Throat/Neck No hearing loss 08/10/2014 Ears/Nose/Throat/Neck No nasal allergies 08/10/2014 Ears/Nose/Throat/Neck No sore throat 08/10/2014 Ears/Nose/Throat/Neck No postnasal drip 08/10/2014 Ears/Nose/Throat/Neck No sinus congestion 08/10/2014 Ears/Nose/Throat/Neck No sinusitis 08/10/2014 Cardiovascular No chest pain/pressure 08/10/2014 Cardiovascular No dyspnea 08/10/2014 Cardiovascular No edema 08/10/2014 Cardiovascular No exercise intolerance 08/10/2014 Cardiovascular No fatigue 08/10/2014 Cardiovascular No near-syncope/dizziness 08/10/2014 Cardiovascular No syncope 08/10/2014 Respiratory No productive sputum 08/10/2014 Respiratory No chest congestion 08/10/2014 Respiratory No chest tightness 08/10/2014 Respiratory No cigarette smoking 08/10/2014 Respiratory No cough Respiratory No dyspnea 1 10/11/2013 Respiratory No pedal edema 08/10/2014 Respiratory No snoring 1 10/11/2013 Respiratory No wheezing 08/10/2014 Gastrointestinal No hemorrhoids 08/10/2014 Gastrointestinal abdominal pain 08/10/2014 Gastrointestinal constipation 08/10/2014 Gastrointestinal No diarrhea 08/10/2014 Gastrointestinal dyspepsia 08/10/2014 Gastrointestinal No gastroesophageal reflu x 08/10/2014 Gastrointestinal No melena 08/10/2014 Gastrointestinal No nausea 08/10/2014 Gastrointestinal No vomiting 08/10/2014 Genitourinary/Nephrology No dysuria 08/10/2014 Genitourinary/Nephrology No nocturia 08/10/2014 Genitourinary/Nephrology No urinary incontinence 08/10/2014 Musculoskeletal No stiffness 08/10/2014 Musculoskeletal No swelling 08/10/2014 Musculoskeletal bone pain 08/10/2014 Musculoskeletal No muscle weakness 08/10/2014 Musculoskeletal No myalgias 08/10/2014 Dermatologic No rash Neurologic No alteration of consciousness 08/10/2014 Neurologic No ataxia Neurologic No dizziness 08/10/2014 Neurologic headache 07/20 Neurologic No pain, facial 08/10/2014 Neurologic neck pain Neurologic No syncope Psychiatric anxiety 07/20 Psychiatric depression 1 10/11/2013 Constitutional recent illness 05/06/2014 Constitutional No anorexia 05/06/2014 Constitutional No night sweats 05/06/2014 Constitutional No chills 05/06/2014 Constitutional No diaphoresis 05/06/2014 Constitutional No fatigue 05/06/2014 Constitutional No fever 05/06/2014 Constitutional No insomnia 05/06/2014 Constitutional No malaise 05/06/2014 Eyes No blindness 2013 Eyes No eye discharge Eyes No eye erythema Eyes No vision change Ears/Nose/Throat/Neck No dental pain 05/06/2014 Ears/Nose/Throat/Neck No dizziness 05/06/2014 Ears/Nose/Throat/Neck No dysphagia 05/06/2014 Ears/Nose/Throat/Neck No headache 05/06/2014 Ears/Nose/Throat/Neck No hearing loss 05/06/2014 Ears/Nose/Throat/Neck No nasal allergies 05/06/2014 Ears/Nose/Throat/Neck No sore throat 05/06/2014 Ears/Nose/Throat/Neck No postnasal drip 05/06/2014 Ears/Nose/Throat/Neck No sinus congestion 05/06/2014 Ears/Nose/Throat/Neck No sinusitis 05/06/2014 Cardiovascular No chest pain/pressure 05/06/2014 Cardiovascular No dyspnea 05/06/2014 Cardiovascular No edema 05/06/2014 Cardiovascular No exercise intolerance 05/06/2014 Cardiovascular No fatigue 05/06/2014 Cardiovascular No near-syncope/dizziness 05/06/2014 Cardiovascular No syncope 05/06/2014 Respiratory No productive sputum 05/06/2014 Respiratory No chest congestion 05/06/2014 Respiratory No chest tightness 05/06/2014 Respiratory No cigarette smoking 05/06/2014 Respiratory No cough Respiratory No dyspnea 0 05/06/2014 Respiratory No pedal edema 05/06/2014 Respiratory No snoring 0 05/06/2014 Respiratory No wheezing 05/06/2014 Gastrointestinal No hemorrhoids 05/06/2014 Gastrointestinal No abdominal pain 05/06/2014 Gastrointestinal No constipation 05/06/2014 Gastrointestinal No diarrhea 05/06/2014 Gastrointestinal No dyspepsia 05/06/2014 Gastrointestinal No gastroesophageal reflu x 05/06/2014 Gastrointestinal No melena 05/06/2014 Gastrointestinal No nausea 05/06/2014 Gastrointestinal No vomiting 05/06/2014 Genitourinary/Nephrology No dysuria 05/06/2014 Genitourinary/Nephrology No nocturia 05/06/2014 Genitourinary/Nephrology No urinary incontinence 05/06/2014 Musculoskeletal No stiffness 05/06/2014 Musculoskeletal No swelling 05/06/2014 Musculoskeletal bone pain 05/06/2014 Musculoskeletal No muscle weakness 05/06/2014 Musculoskeletal No myalgias 05/06/2014 Dermatologic No rash Neurologic No alteration of consciousness 05/06/2014 Neurologic No ataxia Neurologic No dizziness 05/06/2014 Neurologic headache 04/19 Neurologic No pain, facial 05/06/2014 Neurologic neck pain Neurologic No syncope Psychiatric anxiety 04/19 Psychiatric depression 0 05/06/2014 Constitutional No anorexia 04/14/2014 Constitutional No night sweats 04/14/2014 Constitutional No chills 04/14/2014 Constitutional No diaphoresis 04/14/2014 Constitutional No fatigue 04/14/2014 Constitutional No fever 04/14/2014 Eyes No eye discharge Eyes No eye erythema Ears/Nose/Throat/Neck No sinusitis 04/14/2014 Cardiovascular No chest pain/pressure 04/14/2014 Cardiovascular No dyspnea 04/14/2014 Cardiovascular No edema 04/14/2014 Cardiovascular No fatigue 04/14/2014 Cardiovascular No syncope 04/14/2014 Respiratory No productive sputum 04/14/2014 Respiratory No chest congestion 04/14/2014 Respiratory No chest tightness 04/14/2014 Respiratory No cigarette smoking 04/14/2014 Respiratory No cough Respiratory No dyspnea 0 04/14/2014 Respiratory No wheezing 04/14/2014 Gastrointestinal No abdominal pain 04/14/2014 Gastrointestinal No constipation 04/14/2014 Gastrointestinal No diarrhea 04/14/2014 Gastrointestinal No dyspepsia 04/14/2014 Gastrointestinal No nausea 04/14/2014 Gastrointestinal No vomiting 04/14/2014 Dermatologic No rash Neurologic No alteration of consciousness 04/14/2014 Neurologic No ataxia Neurologic No dizziness 04/14/2014 Neurologic No pain, facial 04/14/2014 Neurologic headache 03/20 Neurologic neck pain Neurologic No syncope Constitutional recent illness 04/14/2014 Constitutional No insomnia 04/14/2014 Constitutional No malaise 04/14/2014 Eyes No blindness 2013 Eyes No vision change Ears/Nose/Throat/Neck No dental pain 04/14/2014 Ears/Nose/Throat/Neck No dizziness 04/14/2014 Ears/Nose/Throat/Neck No dysphagia 04/14/2014 Ears/Nose/Throat/Neck No headache 04/14/2014 Ears/Nose/Throat/Neck No hearing loss 04/14/2014 Ears/Nose/Throat/Neck No nasal allergies 04/14/2014 Ears/Nose/Throat/Neck No sore throat 04/14/2014 Ears/Nose/Throat/Neck No postnasal drip 04/14/2014 Ears/Nose/Throat/Neck No sinus congestion 04/14/2014 Cardiovascular No exercise intolerance 04/14/2014 Cardiovascular No near-syncope/dizziness 04/14/2014 Respiratory No pedal edema 04/14/2014 Respiratory No snoring 0 04/14/2014 Gastrointestinal No hemorrhoids 04/14/2014 Gastrointestinal No gastroesophageal reflu x 04/14/2014 Gastrointestinal No melena 04/14/2014 Genitourinary/Nephrology No dysuria 04/14/2014 Genitourinary/Nephrology No nocturia 04/14/2014 Genitourinary/Nephrology No urinary incontinence 04/14/2014 Musculoskeletal No stiffness 04/14/2014 Musculoskeletal No swelling 04/14/2014 Musculoskeletal No muscle weakness 04/14/2014 Musculoskeletal No myalgias 04/14/2014 Musculoskeletal bone pain 04/14/2014 Psychiatric anxiety 03/20 Psychiatric depression 0 04/14/2014 Constitutional No anorexia 11/10/2013 Constitutional No night sweats 11/10/2013 Constitutional No chills 11/10/2013 Constitutional No diaphoresis 11/10/2013 Constitutional No fatigue 11/10/2013 Constitutional No fever 11/10/2013 Eyes No eye discharge Eyes No eye erythema Ears/Nose/Throat/Neck No sinusitis 11/10/2013 Cardiovascular No chest pain/pressure 11/10/2013 Cardiovascular No dyspnea 11/10/2013 Cardiovascular No edema 11/10/2013 Cardiovascular No fatigue 11/10/2013 Cardiovascular No syncope 11/10/2013 Respiratory No productive sputum 11/10/2013 Respiratory No chest congestion 11/10/2013 Respiratory No chest tightness 11/10/2013 Respiratory No cigarette smoking 11/10/2013 Respiratory No cough Respiratory No dyspnea 0 11/10/2013 Respiratory No wheezing 11/10/2013 Gastrointestinal No abdominal pain 11/10/2013 Gastrointestinal No constipation 11/10/2013 Gastrointestinal No diarrhea 11/10/2013 Gastrointestinal No dyspepsia 11/10/2013 Gastrointestinal No nausea 11/10/2013 Gastrointestinal No vomiting 11/10/2013 Dermatologic No rash Neurologic No alteration of consciousness 11/10/2013 Neurologic No ataxia Neurologic No dizziness 11/10/2013 Neurologic No pain, facial 11/10/2013 Constitutional No anorexia 07/14/2013 Constitutional No night sweats 07/14/2013 Constitutional No chills 07/14/2013 Constitutional No diaphoresis 07/14/2013 Constitutional No fatigue 07/14/2013 Constitutional No fever 07/14/2013 Eyes No eye discharge Eyes No eye erythema Ears/Nose/Throat/Neck No sinusitis 07/14/2013 Cardiovascular No chest pain/pressure 07/14/2013 Cardiovascular No dyspnea 07/14/2013 Cardiovascular No edema 07/14/2013 Cardiovascular No fatigue 07/14/2013 Cardiovascular No syncope 07/14/2013 Respiratory No productive sputum 07/14/2013 Respiratory No chest congestion 07/14/2013 Respiratory No chest tightness 07/14/2013 Respiratory No cigarette smoking 07/14/2013 Respiratory No cough Respiratory No dyspnea 1 09/13/2012 Respiratory No wheezing 07/14/2013 Gastrointestinal No abdominal pain 07/14/2013 Gastrointestinal No constipation 07/14/2013 Gastrointestinal No diarrhea 07/14/2013 Gastrointestinal No dyspepsia 07/14/2013 Gastrointestinal No nausea 07/14/2013 Gastrointestinal No vomiting 07/14/2013 Dermatologic No rash Neurologic No alteration of consciousness 07/14/2013 Neurologic No ataxia Neurologic No dizziness 07/14/2013 Neurologic No pain, facial 07/14/2013 Constitutional No anorexia 06/12/2013 Constitutional No night sweats 06/12/2013 Constitutional No chills 06/12/2013 Constitutional No diaphoresis 06/12/2013 Constitutional No fatigue 06/12/2013 Constitutional No fever 06/12/2013 Eyes No eye discharge Eyes No eye erythema Ears/Nose/Throat/Neck No sinusitis 06/12/2013 Cardiovascular No chest pain/pressure 06/12/2013 Cardiovascular No dyspnea 06/12/2013 Cardiovascular No edema 06/12/2013 Cardiovascular No fatigue 06/12/2013 Cardiovascular No syncope 06/12/2013 Respiratory No productive sputum 06/12/2013 Respiratory No chest congestion 06/12/2013 Respiratory No chest tightness 06/12/2013 Respiratory No cigarette smoking 06/12/2013 Respiratory No cough Respiratory No dyspnea 1 Respiratory No wheezing 06/12/2013 Gastrointestinal No abdominal pain 06/12/2013 Gastrointestinal No constipation 06/12/2013 Gastrointestinal No diarrhea 06/12/2013 Gastrointestinal No dyspepsia 06/12/2013 Gastrointestinal No nausea 06/12/2013 Gastrointestinal No vomiting 06/12/2013 Dermatologic No rash Neurologic No alteration of consciousness 06/12/2013 Neurologic No ataxia Neurologic No dizziness 06/12/2013 Neurologic No pain, facial 06/12/2013 Constitutional No anorexia 05/20/2013 Constitutional No night sweats 05/20/2013 Constitutional No chills 05/20/2013 Constitutional No diaphoresis 05/20/2013 Constitutional No fatigue 05/20/2013 Constitutional No fever 05/20/2013 Eyes No eye discharge Eyes No eye erythema 09/2012 Ears/Nose/Throat/Neck No sinusitis 05/20/2013 Cardiovascular No chest pain/pressure 05/20/2013 Cardiovascular No dyspnea 05/20/2013 Cardiovascular No edema 05/20/2013 Cardiovascular No fatigue 05/20/2013 Cardiovascular No syncope 05/20/2013 Respiratory No productive sputum 05/20/2013 Respiratory No chest congestion 05/20/2013 Respiratory No chest tightness 05/20/2013 Respiratory No cigarette smoking 05/20/2013 Respiratory No cough 09/2012 Respiratory No dyspnea 1 Respiratory No wheezing 05/20/2013 Gastrointestinal No abdominal pain 05/20/2013 Gastrointestinal No constipation 05/20/2013 Gastrointestinal No diarrhea 05/20/2013 Gastrointestinal No dyspepsia 05/20/2013 Gastrointestinal No nausea 05/20/2013 Gastrointestinal No vomiting 05/20/2013 Dermatologic No rash 09/2012 Neurologic No alteration of consciousness 05/20/2013 Neurologic No ataxia 09/2012 Neurologic No dizziness 05/20/2013 Neurologic No pain, facial 05/20/2013 Constitutional No anorexia 04/09/2013 Constitutional No night sweats 04/09/2013 Constitutional No chills 04/09/2013 Constitutional No diaphoresis 04/09/2013 Constitutional No fatigue 04/09/2013 Constitutional No fever 04/09/2013 Eyes No eye discharge Eyes No eye erythema Ears/Nose/Throat/Neck No sinusitis 04/09/2013 Cardiovascular No chest pain/pressure 04/09/2013 Cardiovascular No dyspnea 04/09/2013 Cardiovascular No edema 04/09/2013 Cardiovascular No fatigue 04/09/2013 Cardiovascular No syncope 04/09/2013 Respiratory No productive sputum 04/09/2013 Respiratory No chest congestion 04/09/2013 Respiratory No chest tightness 04/09/2013 Respiratory No cigarette smoking 04/09/2013 Respiratory No cough Respiratory No dyspnea 0 04/09/2013 Respiratory No wheezing 04/09/2013 Gastrointestinal No abdominal pain 04/09/2013 Gastrointestinal No constipation 04/09/2013 Gastrointestinal No diarrhea 04/09/2013 Gastrointestinal No dyspepsia 04/09/2013 Gastrointestinal No nausea 04/09/2013 Gastrointestinal No vomiting 04/09/2013 Dermatologic No rash Neurologic No alteration of consciousness 04/09/2013 Neurologic No ataxia Neurologic No dizziness 04/09/2013 Neurologic No pain, facial 04/09/2013 Constitutional recent illness 01/26/2013 Constitutional No anorexia 01/26/2013 Constitutional No night sweats 01/26/2013 Constitutional No chills 01/26/2013 Constitutional No diaphoresis 01/26/2013 Constitutional No fatigue 01/26/2013 Constitutional No fever 01/26/2013 Eyes No eye discharge Eyes No eye erythema 05/2013 Ears/Nose/Throat/Neck No sinusitis 01/26/2013 Cardiovascular No chest pain/pressure 01/26/2013 Cardiovascular No dyspnea 01/26/2013 Cardiovascular No edema 01/26/2013 Cardiovascular No fatigue 01/26/2013 Cardiovascular No syncope 01/26/2013 Gastrointestinal No abdominal pain 01/26/2013 Gastrointestinal No constipation 01/26/2013 Gastrointestinal No diarrhea 01/26/2013 Gastrointestinal No dyspepsia 01/26/2013 Gastrointestinal No nausea 01/26/2013 Gastrointestinal No vomiting 01/26/2013 Dermatologic No rash 05/2013 Neurologic No alteration of consciousness 01/26/2013 Neurologic No ataxia 05/2013 Neurologic No dizziness 01/26/2013 Neurologic No pain, facial 01/26/2013 Constitutional recent illness 12/23/2012 Constitutional No anorexia 12/23/2012 Constitutional No night sweats 12/23/2012 Constitutional No chills 12/23/2012 Constitutional No diaphoresis 12/23/2012 Constitutional No fatigue 12/23/2012 Constitutional No fever 12/23/2012 Neurologic No dizziness 12/23/2012 Neurologic No pain, facial 12/23/2012 Eyes No eye discharge Eyes No eye erythema 02/2013 Ears/Nose/Throat/Neck No sinusitis 12/23/2012 Cardiovascular No chest pain/pressure 12/23/2012 Cardiovascular No dyspnea 12/23/2012 Cardiovascular No edema 12/23/2012 Cardiovascular No fatigue 12/23/2012 Cardiovascular No syncope 12/23/2012 Respiratory No productive sputum 12/23/2012 Respiratory No chest congestion 12/23/2012 Respiratory No chest tightness 12/23/2012 Respiratory No cigarette smoking 12/23/2012 Respiratory No cough 02/2013 Respiratory No dyspnea 0 12/23/2012 Respiratory No wheezing 12/23/2012 Gastrointestinal No abdominal pain 12/23/2012 Gastrointestinal No constipation 12/23/2012 Gastrointestinal No diarrhea 12/23/2012 Gastrointestinal No dyspepsia 12/23/2012 Gastrointestinal No nausea 12/23/2012 Gastrointestinal No vomiting 12/23/2012 Dermatologic No rash 02/2013 Neurologic No alteration of consciousness 12/23/2012 Neurologic No ataxia 02/2013 Constitutional recent illness 12/15/2012 Constitutional No chills 12/15/2012 Constitutional fatigue 0 12/15/2012 Constitutional No fever 12/15/2012 Constitutional malaise 0 12/15/2012 Eyes No vision change Cardiovascular No chest pain/pressure 12/15/2012 Cardiovascular No dyspnea 12/15/2012 Cardiovascular No edema 12/15/2012 Respiratory chest congestion 12/15/2012 Respiratory chest tightness 12/15/2012 Respiratory cough 2012 Gastrointestinal No abdominal pain 12/15/2012 Gastrointestinal No constipation 12/15/2012 Gastrointestinal No diarrhea 12/15/2012 Musculoskeletal No stiffness 12/15/2012 Musculoskeletal No arthralgia(s) 12/15/2012 Musculoskeletal muscle weakness 12/15/2012 Musculoskeletal myalgias 12/15/2012 Neurologic paresthesia 0 12/15/2012 Neurologic weakness 11/18 Psychiatric No anxiety 0 12/15/2012 Psychiatric depression 0 12/15/2012 Constitutional No anorexia 10/22/2012 Constitutional No night sweats 10/22/2012 Constitutional No chills 10/22/2012 Constitutional No fatigue 10/22/2012 Constitutional No fever 10/22/2012 Cardiovascular No chest pain/pressure 10/22/2012 Cardiovascular No dyspnea 10/22/2012 Cardiovascular No edema 10/22/2012 Cardiovascular No fatigue 10/22/2012 Cardiovascular No syncope 10/22/2012 Respiratory No productive sputum 10/22/2012 Respiratory No chest congestion 10/22/2012 Respiratory No chest tightness 10/22/2012 Respiratory No cigarette smoking 10/22/2012 Respiratory No cough 01/2013 Respiratory No dyspnea 0 10/22/2012 Respiratory No wheezing 10/22/2012 Gastrointestinal No abdominal pain 10/22/2012 Gastrointestinal No constipation 10/22/2012 Gastrointestinal No diarrhea 10/22/2012 Gastrointestinal No dyspepsia 10/22/2012 Gastrointestinal No nausea 10/22/2012 Gastrointestinal No vomiting 10/22/2012 Dermatologic No rash 01/2013 Constitutional recent illness 08/21/2012 Constitutional No anorexia 08/21/2012 Constitutional No night sweats 08/21/2012 Constitutional No chills 08/21/2012 Constitutional No diaphoresis 08/21/2012 Constitutional No fatigue 08/21/2012 Constitutional No fever 08/21/2012 Eyes No eye discharge Eyes No eye erythema 10/2012 Ears/Nose/Throat/Neck No sinusitis 08/21/2012 Cardiovascular No chest pain/pressure 08/21/2012 Cardiovascular No dyspnea 08/21/2012 Cardiovascular No edema 08/21/2012 Cardiovascular No fatigue 08/21/2012 Cardiovascular No syncope 08/21/2012 Respiratory No productive sputum 08/21/2012 Respiratory No chest congestion 08/21/2012 Respiratory No chest tightness 08/21/2012 Respiratory No cigarette smoking 08/21/2012 Respiratory No cough 10/2012 Respiratory No dyspnea 0 08/21/2012 Respiratory No wheezing 08/21/2012 Gastrointestinal No abdominal pain 08/21/2012 Gastrointestinal No constipation 08/21/2012 Gastrointestinal No diarrhea 08/21/2012 Gastrointestinal No dyspepsia 08/21/2012 Gastrointestinal No nausea 08/21/2012 Gastrointestinal No vomiting 08/21/2012 Musculoskeletal No muscle weakness 08/21/2012 Musculoskeletal No myalgias 08/21/2012 Dermatologic No rash 10/2012 Neurologic No alteration of consciousness 08/21/2012 Neurologic No ataxia 10/2012 Neurologic No dizziness 08/21/2012 Neurologic No pain, facial 08/21/2012 Cardiovascular No dyspnea 07/17/2012 Cardiovascular No edema 07/17/2012 Cardiovascular No fatigue 07/17/2012 Cardiovascular No syncope 07/17/2012 Constitutional recent illness 07/17/2012 Constitutional No anorexia 07/17/2012 Constitutional No night sweats 07/17/2012 Constitutional No chills 07/17/2012 Constitutional No diaphoresis 07/17/2012 Constitutional No fatigue 07/17/2012 Constitutional No fever 07/17/2012 Ears/Nose/Throat/Neck No sinusitis 07/17/2012 Gastrointestinal No constipation 07/17/2012 Gastrointestinal No dyspepsia 07/17/2012 Musculoskeletal No muscle weakness 07/17/2012 Musculoskeletal No myalgias 07/17/2012 Neurologic No ataxia Neurologic No dizziness 07/17/2012 Neurologic No pain, facial 07/17/2012 Respiratory No chest tightness 07/17/2012 Respiratory No cigarette smoking 07/17/2012 Respiratory No dyspnea 1 09/16/2011 Respiratory No wheezing 07/17/2012 Eyes No eye discharge Eyes No eye erythema Cardiovascular No chest pain/pressure 07/17/2012 Respiratory No productive sputum 07/17/2012 Respiratory No chest congestion 07/17/2012 Respiratory No cough Gastrointestinal No abdominal pain 07/17/2012 Gastrointestinal No diarrhea 07/17/2012 Gastrointestinal No nausea 07/17/2012 Gastrointestinal No vomiting 07/17/2012 Dermatologic No rash Neurologic No alteration of consciousness 07/17/2012 Constitutional recent illness 07/08/2012 Constitutional No anorexia 07/08/2012 Constitutional No night sweats 07/08/2012 Constitutional No chills 07/08/2012 Constitutional No diaphoresis 07/08/2012 Constitutional No fatigue 07/08/2012 Constitutional No fever 07/08/2012 Eyes No eye discharge Eyes No eye erythema Ears/Nose/Throat/Neck No sinusitis 07/08/2012 Respiratory No productive sputum 07/08/2012 Respiratory No chest congestion 07/08/2012 Respiratory No chest tightness 07/08/2012 Respiratory No cigarette smoking 07/08/2012 Respiratory No cough Respiratory No dyspnea 1 09/07/2011 Respiratory No wheezing 07/08/2012 Gastrointestinal No abdominal pain 07/08/2012 Gastrointestinal No constipation 07/08/2012 Gastrointestinal No diarrhea 07/08/2012 Gastrointestinal No dyspepsia 07/08/2012 Gastrointestinal No nausea 07/08/2012 Gastrointestinal No vomiting 07/08/2012 Musculoskeletal No muscle weakness 07/08/2012 Musculoskeletal No myalgias 07/08/2012 Dermatologic No rash Neurologic No alteration of consciousness 07/08/2012 Neurologic No ataxia Neurologic No dizziness 07/08/2012 Neurologic No pain, facial 07/08/2012 Constitutional No anorexia 06/09/2012 Constitutional No chills 06/09/2012 Constitutional insomnia 06/09/2012 Respiratory No chest congestion 06/09/2012 Respiratory No chest tightness 06/09/2012 Respiratory No cough Gastrointestinal abdominal pain 06/09/2012 Gastrointestinal diarrhea 06/09/2012 Gastrointestinal hematochezia 06/09/2012 Genitourinary/Nephrology No urinary urgenc y 06/09/2012 Genitourinary/Nephrology No urinary frequency 06/09/2012 Musculoskeletal arthralgia(s) 06/09/2012 Musculoskeletal myalgias 06/09/2012 Dermatologic No rash Dermatologic No sores Neurologic paresthesia 1 Psychiatric anxiety 05/20 Psychiatric depression 1 Constitutional night sweats 02/12/2012 Constitutional No chills 02/12/2012 Constitutional fatigue 0 02/12/2012 Constitutional No fever 02/12/2012 Eyes No vision change Cardiovascular No chest pain/pressure 02/12/2012 Cardiovascular No dyspnea 02/12/2012 Cardiovascular No edema 02/12/2012 Respiratory chest congestion 02/12/2012 Respiratory chest tightness 02/12/2012 Respiratory cough 2011 Musculoskeletal No stiffness 02/12/2012 Musculoskeletal No arthralgia(s) 02/12/2012 Psychiatric No anxiety 0 02/12/2012 Psychiatric depression 0 02/12/2012 Constitutional recent illness 02/12/2012 Constitutional malaise 0 02/12/2012 Gastrointestinal No abdominal pain 02/12/2012 Gastrointestinal No constipation 02/12/2012 Gastrointestinal No diarrhea 02/12/2012 Musculoskeletal muscle weakness 02/12/2012 Musculoskeletal myalgias 02/12/2012 Neurologic paresthesia 0 02/12/2012 Neurologic weakness 01/18 Constitutional No night sweats 02/05/2012 Constitutional No chills 02/05/2012 Constitutional No fatigue 02/05/2012 Cardiovascular No chest pain/pressure 02/05/2012 Cardiovascular No dyspnea 02/05/2012 Cardiovascular No edema 02/05/2012 Cardiovascular No fatigue 02/05/2012 Respiratory No chest congestion 02/05/2012 Respiratory No chest tightness 02/05/2012 Respiratory No cough Genitourinary/Nephrology No dysuria 02/05/2012 Genitourinary/Nephrology No urinary urgenc y 02/05/2012 Genitourinary/Nephrology No urinary frequency 02/05/2012 Genitourinary/Nephrology No urinary incontinence 02/05/2012 Genitourinary/Nephrology No urinary retention/hesitancy 02/05/2012 Genitourinary/Nephrology No vaginal discharge 02/05/2012 Musculoskeletal No arthralgia(s) 02/05/2012 Musculoskeletal back pain 02/05/2012 Neurologic No ataxia Neurologic No dizziness 02/05/2012 Neurologic No headache 0 02/05/2012 Psychiatric anxiety 01/17 Psychiatric No depression 02/05/2012 Cardiovascular No fatigue 11/14/2011 Cardiovascular No syncope 11/14/2011 Respiratory No chest tightness 11/14/2011 Respiratory No cigarette smoking 11/14/2011 Respiratory No dyspnea 0 11/14/2011 Respiratory No wheezing 11/14/2011 Gastrointestinal No constipation 11/14/2011 Gastrointestinal No dyspepsia 11/14/2011 Musculoskeletal No muscle weakness 11/14/2011 Musculoskeletal No myalgias 11/14/2011 Neurologic No ataxia Neurologic No dizziness 11/14/2011 Neurologic No pain, facial 11/14/2011 Psychiatric No anxiety 0 11/14/2011 Psychiatric No depression 11/14/2011 Constitutional No anorexia 11/14/2011 Constitutional No night sweats 11/14/2011 Constitutional No chills 11/14/2011 Constitutional No diaphoresis 11/14/2011 Constitutional No fever 11/14/2011 Eyes No eye discharge Eyes No eye erythema Respiratory No productive sputum 11/14/2011 Respiratory No chest congestion 11/14/2011 Gastrointestinal No abdominal pain 11/14/2011 Gastrointestinal No vomiting 11/14/2011 Neurologic No alteration of consciousness 11/14/2011 Constitutional recent illness 11/14/2011 Constitutional No fatigue 11/14/2011 Cardiovascular No chest pain/pressure 11/14/2011 Respiratory No cough Gastrointestinal No diarrhea 11/14/2011 Gastrointestinal No nausea 11/14/2011 Dermatologic No rash Ears/Nose/Throat/Neck No sinusitis 11/14/2011 Cardiovascular No dyspnea 11/14/2011 Cardiovascular No edema 11/14/2011 Constitutional recent illness 10/08/2011 Constitutional night sweats 10/08/2011 Constitutional chills Constitutional fatigue 0 10/08/2011 Constitutional fever Constitutional malaise 0 10/08/2011 Ears/Nose/Throat/Neck No dizziness 10/08/2011 Ears/Nose/Throat/Neck No headache 10/08/2011 Ears/Nose/Throat/Neck sore throat 10/08/2011 Ears/Nose/Throat/Neck postnasal drip 10/08/2011 Ears/Nose/Throat/Neck sinus congestion 10/08/2011 Cardiovascular No chest pain/pressure 10/08/2011 Cardiovascular No dyspnea 10/08/2011 Gastrointestinal No abdominal pain 10/08/2011 Gastrointestinal No constipation 10/08/2011 Gastrointestinal No diarrhea 10/08/2011 Psychiatric No anxiety 0 10/08/2011 Psychiatric depression 0 10/08/2011 Musculoskeletal No arthralgia(s) 10/08/2011 Musculoskeletal myalgias 10/08/2011 Musculoskeletal muscle weakness 10/08/2011 Neurologic weakness 09/20 Neurologic paresthesia 0 10/08/2011 Constitutional night sweats 08/28/2011 Constitutional No chills 08/28/2011 Constitutional fatigue 0 08/28/2011 Constitutional No fever 08/28/2011 Eyes No vision change Cardiovascular No chest pain/pressure 08/28/2011 Cardiovascular No dyspnea 08/28/2011 Cardiovascular No edema 08/28/2011 Respiratory chest congestion 08/28/2011 Respiratory chest tightness 08/28/2011 Respiratory cough 2011 Musculoskeletal No stiffness 08/28/2011 Musculoskeletal No arthralgia(s) 08/28/2011 Psychiatric anxiety 08/19 Psychiatric depression 0 08/28/2011 Constitutional night sweats 08/23/2011 Constitutional No chills 08/23/2011 Constitutional fatigue 0 08/23/2011 Constitutional No fever 08/23/2011 Eyes No vision change Cardiovascular No chest pain/pressure 08/23/2011 Cardiovascular No dyspnea 08/23/2011 Cardiovascular No edema 08/23/2011 Respiratory cough 2011 Respiratory chest tightness 08/23/2011 Respiratory chest congestion 08/23/2011 Psychiatric anxiety 12/2011 Psychiatric depression 0 08/23/2011 Musculoskeletal No stiffness 08/23/2011 Musculoskeletal No arthralgia(s) 08/23/2011 Constitutional No anorexia 07/24/2011 Constitutional No chills 07/24/2011 Gastrointestinal diarrhea 07/24/2011 Gastrointestinal abdominal pain 07/24/2011 Gastrointestinal hematochezia 07/24/2011 Cardiovascular No chest pain/pressure 07/24/2011 Cardiovascular No dyspnea 07/24/2011 Cardiovascular No edema 07/24/2011 Respiratory No chest congestion 07/24/2011 Respiratory No chest tightness 07/24/2011 Respiratory No cough 01/2011 Genitourinary/Nephrology No urinary urgenc y 07/24/2011 Genitourinary/Nephrology No urinary frequency 07/24/2011 Dermatologic No rash 01/2011 Dermatologic No sores Psychiatric anxiety 12/0 01/2011 Musculoskeletal arthralgia(s) 07/24/2011 Musculoskeletal myalgias 07/24/2011 Psychiatric depression 1 09/24/2010 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 Neurologic paresthesia 1 09/24/2010 Neurologic No dizziness 06/19/2011 Neurologic No headache 1 08/19/2010 Psychiatric anxiety 11/0 08/2010 Psychiatric No depression 06/19/2011 Constitutional No night sweats 06/19/2011 Constitutional No chills 06/19/2011 Constitutional No fatigue 06/19/2011 Cardiovascular No chest pain/pressure 06/19/2011 Cardiovascular No dyspnea 06/19/2011 Cardiovascular No edema 06/19/2011 Cardiovascular No fatigue 06/19/2011 Respiratory No chest congestion 06/19/2011 Respiratory No chest tightness 06/19/2011 Respiratory No cough 08/2010 Genitourinary/Nephrology No urinary urgenc y 06/19/2011 Genitourinary/Nephrology No urinary frequency 06/19/2011 Genitourinary/Nephrology No urinary incontinence 06/19/2011 Genitourinary/Nephrology No urinary retention/hesitancy 06/19/2011 Genitourinary/Nephrology No vaginal discharge 06/19/2011 Genitourinary/Nephrology No dysuria 06/19/2011 Musculoskeletal back pain 06/19/2011 Musculoskeletal No arthralgia(s) 06/19/2011 Neurologic No ataxia 08/2010 Constitutional No anorexia 06/05/2011 Constitutional No chills 06/05/2011 Constitutional No fatigue 06/05/2011 Musculoskeletal stiffness 06/05/2011 Musculoskeletal swelling 06/05/2011 Musculoskeletal arthralgia(s) 06/05/2011 Musculoskeletal bone pain 06/05/2011 Cardiovascular No chest pain/pressure 06/05/2011 Cardiovascular No dyspnea 06/05/2011 Cardiovascular No edema 06/05/2011 Cardiovascular No fatigue 06/05/2011 Respiratory No chest congestion 06/05/2011 Respiratory No chest tightness 06/05/2011 Respiratory No cough Gastrointestinal No constipation 06/05/2011 Gastrointestinal No diarrhea 06/05/2011 Neurologic No dizziness 06/05/2011 Psychiatric No depression 06/05/2011 Psychiatric No anxiety 1 Physical Exam Exam Name System Name It em Name Status Result Effective Dates Notes Full Exam - General 1994 Constitutional general appearance Overall: well developed 02/16/2019 None Full Exam - General 1994 Constitutional general appearance Overall: in no acute distress 02/16/2019 None Full Exam - General 1994 Constitutional general appearance Overall: well nourished 02/16/2019 None Full Exam - General 1994 Eyes pupils and irises Overall: pupils equal, round, reactive to light and accomodation 02/16/2019 None Full Exam - General 1994 Ears/Nose/Throat otoscopic exam Overall: external auditory canals clear 02/16/2019 None Full Exam - General 1994 Ears/Nose/Throat otoscopic exam Overall: tympanic membranes clear 02/16/2019 None Full Exam - General 1994 Ears/Nose/Throat oral cavity/pharynx/larynx Overall: oral mucosa clear 02/16/2019 None Full Exam - General 1995 Ears/Nose/Throat oral cavity/pharynx/larynx Overall: oropharyngeal mucosa clear 02/16/2019 None Full Exam - General 1994 Ears/Nose/Throat oral cavity/pharynx/larynx Overall: no masses 02/16/2019 None Full Exam - General 1994 Respiratory auscultation Overall: breath sounds clear bilaterally 02/16/2019 None Full Exam - General 1994 Respiratory respiratory effort/rhythm Overall: no retractions 02/16/2019 None Full Exam - General 1994 Respiratory respiratory effort/rhythm Overall: normal rate 02/16/2019 None Full Exam - General 1994 Cardiovascular auscultation of heart Overall: regular rate 02/16/2019 None Full Exam - General 1994 Cardiovascular auscultation of heart Overall: normal heart sounds 02/16/2019 None Full Exam - General 1994 Cardiovascular auscultation of heart Overall: no murmurs 02/16/2019 None Full Exam - General 1994 Abdomen abdominal exam Overall: no tenderness 02/16/2019 None Full Exam - General 1994 Abdomen abdominal exam Overall: normal bowel sounds 02/16/2019 None Full Exam - General 1994 Lymphatic neck nodes Overall: anterior cervical chain benign 02/16/2019 None Full Exam - General 1994 Lymphatic neck nodes Overall: posterior cervical chain benign 02/16/2019 None Full Exam - General 1994 Neurologic gait Overall: no ataxia, no unsteadiness 02/16/2019 None Full Exam - General 1994 Psychiatric orientation/consciousness Overall: oriented to person, place and time 02/16/2019 None Full Exam - General 1994 Psychiatric mood and affect Mood: depressed 02/16/2019 None Full Exam - General 1994 Psychiatric mood and affect Affect: mood congruent 02/16/2019 None Full Exam - ENT Constitutional general appearance Overall: well nourished 02/10/2019 None Full Exam - ENT Constitutional general appearance Overall: well developed 02/10/2019 None Full Exam - ENT Constitutional general appearance Overall: in no acute distress 02/10/2019 None Full Exam - ENT Ears/Nose/Throat otoscopic exam Overall: external auditory canals normal 02/10/2019 None Full Exam - ENT Ears/Nose/Throat otoscopic exam Left tympanic membrane: air-fluid le emiliano 02/10/2019 None Full Exam - ENT Ears/Nose/Throat otoscopic exam Right tympanic membrane: air-fluid level 02/10/2019 None Full Exam - ENT Ears/Nose/Throat nasal mucosa, septum, turbinates Drainage: clear 02/10/2019 None Full Exam - ENT Ears/Nose/Throat nasal mucosa, septum, turbinates Drainage: yellow 02/10/2019 None Full Exam - ENT Ears/Nose/Throat lips/teeth/gingiva Overall: benign lips 02/10/2019 None Full Exam - ENT Ears/Nose/Throat oropharynx Posterior Pharynx: clear post nasal drainage 02/10/2019 None Full Exam - ENT Face and Head palpation Left maxillary sinus: tender 02/10/2019 None Full Exam - ENT Face and Head palpation Right maxillary sinus: tender 02/10/2019 None Full Exam - ENT Respiratory inspection Overall: no retractions 02/10/2019 None Full Exam - ENT Respiratory inspection Overall: normal rate None Full Exam - ENT Respiratory auscultation Overall: breath sounds clear bilater ally 02/10/2019 None Full Exam - ENT Cardiovascular auscultation of heart Overall: regular rate 02/10/2019 None Full Exam - ENT Cardiovascular auscultation of heart Overall: normal heart sounds 02/10/2019 None Full Exam - ENT Lymphatic palpation of lymph nodes Overall: anterior cervical chain benign 02/10/2019 None Full Exam - ENT Lymphatic palpation of lymph nodes Overall: posterior cervical chain benign 02/10/2019 None Full Exam - ENT Neurologic mood and affect Overall: normal mood 02/10/2019 None Full Exam - ENT Neurologic mood and affect Overall: normal affect 02/10/2019 None Full Exam - ENT Neurologic orientation Overall: oriented to person, place a nd time 02/10/2019 None Full Exam - General 1994 Constitutional general appearance Overall: well nourished 12/23/2018 None Full Exam - General 1994 Constitutional general appearance Overall: well developed 12/23/2018 None Full Exam - General 1994 Constitutional general appearance Overall: in no acute distress 12/23/2018 None Full Exam - General 1994 Ears/Nose/Throat oral cavity/pharynx/larynx Overall: oropharyngeal mucosa clear 12/23/2018 None Full Exam - General 1994 Ears/Nose/Throat oral cavity/pharynx/larynx Overall: no masses 12/23/2018 None Full Exam - General 1994 Ears/Nose/Throat oral cavity/pharynx/larynx Overall: oral mucosa clear 12/23/2018 None Full Exam - General 1994 Respiratory auscultation Overall: breath sounds clear bilaterally 12/23/2018 None Full Exam - General 1994 Respiratory respiratory effort/rhythm Overall: normal rate 12/23/2018 None Full Exam - General 1994 Respiratory respiratory effort/rhythm Overall: no retractions 12/23/2018 None Full Exam - General 1994 Cardiovascular auscultation of heart Overall: regular rate 12/23/2018 None Full Exam - General 1994 Cardiovascular auscultation of heart Overall: normal heart sounds 12/23/2018 None Full Exam - General 1994 Cardiovascular auscultation of heart Overall: no murmurs 12/23/2018 None Full Exam - General 1994 Psychiatric orientation/consciousness Overall: oriented to person, place and time 12/23/2018 None Full Exam - General 1994 Psychiatric mood and affect Mood: happy 12/23/2018 None Full Exam - General 1994 Psychiatric mood and affect Overall: normal mood and affect 12/23/2018 None Full Exam - General 1994 Musculoskeletal spine, ribs and pelvis Posture: lordosis 12/23/2018 None Full Exam - General 1994 Musculoskeletal spine, ribs and pelvis Spine: tender @ thoracic spine 12/23/2018 aroudn T3 - near scapula Full Exam - General 1994 Musculoskeletal head and neck Overall: head atraumatic 12/23/2018 None Full Exam - General 1994 Musculoskeletal head and neck Overall: cervical spine benign 12/23/2018 None Full Exam - General 1994 Constitutional general appearance Overall: well developed 06/12/2018 None Full Exam - General 1994 Constitutional general appearance Overall: in no acute distress 06/12/2018 None Full Exam - General 1994 Constitutional general appearance Overall: well nourished 06/12/2018 None Full Exam - General 1994 Eyes pupils and irises Overall: pupils equal, round, reactive to light and accomodation 06/12/2018 None Full Exam - General 1994 Ears/Nose/Throat external ear Overall: normal appearance 06/12/2018 None Full Exam - General 1994 Ears/Nose/Throat otoscopic exam Overall: external auditory canals clear 06/12/2018 None Full Exam - General 1994 Ears/Nose/Throat otoscopic exam Overall: tympanic membranes clear 06/12/2018 None Full Exam - General 1994 Ears/Nose/Throat oral cavity/pharynx/larynx Overall: oral mucosa clear 06/12/2018 None Full Exam - General 1994 Ears/Nose/Throat oral cavity/pharynx/larynx Overall: oropharyngeal mucosa clear 06/12/2018 None Full Exam - General 1994 Ears/Nose/Throat oral cavity/pharynx/larynx Overall: no masses 06/12/2018 None Full Exam - General 1994 Respiratory auscultation Overall: breath sounds clear bilaterally 06/12/2018 None Full Exam - General 1994 Respiratory respiratory effort/rhythm Overall: no retractions 06/12/2018 None Full Exam - General 1994 Respiratory respiratory effort/rhythm Overall: normal rate 06/12/2018 None Full Exam - General 1994 Cardiovascular auscultation of heart Overall: regular rate 06/12/2018 None Full Exam - General 1994 Cardiovascular auscultation of heart Overall: normal heart sounds 06/12/2018 None Full Exam - General 1994 Cardiovascular auscultation of heart Overall: no murmurs 06/12/2018 None Full Exam - General 1994 Abdomen abdominal exam Overall: no tenderness 06/12/2018 None Full Exam - General 1994 Abdomen abdominal exam Overall: normal bowel sounds 06/12/2018 None Full Exam - General 1994 Neurologic gait Overall: no ataxia, no unsteadiness 06/12/2018 None Full Exam - General 1994 Psychiatric orientation/consciousness Overall: oriented to person, place and time 06/12/2018 None Full Exam - General 1994 Psychiatric mood and affect Mood: depressed 06/12/2018 None Full Exam - General 1994 Psychiatric mood and affect Affect: mood congruent 06/12/2018 None Full Exam - General 1994 Constitutional general appearance Overall: well developed 05/26/2018 None Full Exam - General 1994 Constitutional general appearance Overall: in no acute distress 05/26/2018 None Full Exam - General 1994 Constitutional general appearance Overall: well nourished 05/26/2018 None Full Exam - General 1994 Eyes pupils and irises Overall: pupils equal, round, reactive to light and accomodation 05/26/2018 None Full Exam - General 1994 Ears/Nose/Throat external ear Overall: normal appearance 05/26/2018 None Full Exam - General 1994 Ears/Nose/Throat otoscopic exam Overall: external auditory canals clear 05/26/2018 None Full Exam - General 1994 Ears/Nose/Throat otoscopic exam Overall: tympanic membranes clear 05/26/2018 None Full Exam - General 1994 Ears/Nose/Throat oral cavity/pharynx/larynx Overall: oral mucosa clear 05/26/2018 None Full Exam - General 1994 Ears/Nose/Throat oral cavity/pharynx/larynx Overall: oropharyngeal mucosa clear 05/26/2018 None Full Exam - General 1994 Ears/Nose/Throat oral cavity/pharynx/larynx Overall: no masses 05/26/2018 None Full Exam - General 1994 Respiratory auscultation Overall: breath sounds clear bilaterally 05/26/2018 None Full Exam - General 1994 Respiratory respiratory effort/rhythm Overall: no retractions 05/26/2018 None Full Exam - General 1994 Respiratory respiratory effort/rhythm Overall: normal rate 05/26/2018 None Full Exam - General 1994 Cardiovascular auscultation of heart Overall: regular rate 05/26/2018 None Full Exam - General 1994 Cardiovascular auscultation of heart Overall: normal heart sounds 05/26/2018 None Full Exam - General 1994 Cardiovascular auscultation of heart Overall: no murmurs 05/26/2018 None Full Exam - General 1994 Abdomen abdominal exam Overall: no tenderness 05/26/2018 None Full Exam - General 1994 Abdomen abdominal exam Overall: normal bowel sounds 05/26/2018 None Full Exam - General 1994 Lymphatic neck nodes Overall: anterior cervical chain benign 05/26/2018 None Full Exam - General 1994 Lymphatic neck nodes Overall: posterior cervical chain benign 05/26/2018 None Full Exam - General 1994 Neurologic gait Overall: no ataxia, no unsteadiness 05/26/2018 None Full Exam - General 1994 Psychiatric orientation/consciousness Overall: oriented to person, place and time 05/26/2018 None Full Exam - General 1994 Psychiatric mood and affect Mood: depressed 05/26/2018 None Full Exam - General 1994 Psychiatric mood and affect Affect: mood congruent 05/26/2018 None Full Exam - General 1994 Constitutional general appearance Overall: well developed 04/01/2018 None Full Exam - General 1994 Constitutional general appearance Overall: in no acute distress 04/01/2018 None Full Exam - General 1994 Constitutional general appearance Overall: well nourished 04/01/2018 None Full Exam - General 1994 Eyes pupils and irises Overall: pupils equal, round, reactive to light and accomodation 04/01/2018 None Full Exam - General 1994 Ears/Nose/Throat external ear Overall: normal appearance 04/01/2018 None Full Exam - General 1994 Ears/Nose/Throat otoscopic exam Overall: external auditory canals clear 04/01/2018 None Full Exam - General 1994 Ears/Nose/Throat otoscopic exam Overall: tympanic membranes clear 04/01/2018 None Full Exam - General 1994 Ears/Nose/Throat oral cavity/pharynx/larynx Overall: oral mucosa clear 04/01/2018 None Full Exam - General 1994 Ears/Nose/Throat oral cavity/pharynx/larynx Overall: oropharyngeal mucosa clear 04/01/2018 None Full Exam - General 1994 Ears/Nose/Throat oral cavity/pharynx/larynx Overall: no masses 04/01/2018 None Full Exam - General 1994 Respiratory auscultation Overall: breath sounds clear bilaterally 04/01/2018 None Full Exam - General 1994 Respiratory respiratory effort/rhythm Overall: no retractions 04/01/2018 None Full Exam - General 1994 Respiratory respiratory effort/rhythm Overall: normal rate 04/01/2018 None Full Exam - General 1994 Cardiovascular auscultation of heart Overall: regular rate 04/01/2018 None Full Exam - General 1994 Cardiovascular auscultation of heart Overall: normal heart sounds 04/01/2018 None Full Exam - General 1994 Cardiovascular auscultation of heart Overall: no murmurs 04/01/2018 None Full Exam - General 1994 Abdomen abdominal exam Overall: no tenderness 04/01/2018 None Full Exam - General 1994 Abdomen abdominal exam Overall: normal bowel sounds 04/01/2018 None Full Exam - General 1994 Lymphatic neck nodes Overall: anterior cervical chain benign 04/01/2018 None Full Exam - General 1994 Lymphatic neck nodes Overall: posterior cervical chain benign 04/01/2018 None Full Exam - General 1994 Neurologic gait Overall: no ataxia, no unsteadiness 04/01/2018 None Full Exam - General 1994 Psychiatric orientation/consciousness Overall: oriented to person, place and time 04/01/2018 None Full Exam - General 1994 Psychiatric mood and affect Mood: depressed 04/01/2018 None Full Exam - General 1994 Psychiatric mood and affect Affect: mood congruent 04/01/2018 None Full Exam - General 1994 Constitutional general appearance Overall: well developed 11/25/2017 None Full Exam - General 1994 Constitutional general appearance Overall: in no acute distress 11/25/2017 None Full Exam - General 1994 Constitutional general appearance Overall: well nourished 11/25/2017 None Full Exam - General 1994 Eyes pupils and irises Overall: pupils equal, round, reactive to light and accomodation 11/25/2017 None Full Exam - General 1994 Ears/Nose/Throat external ear Overall: normal appearance 11/25/2017 None Full Exam - General 1994 Ears/Nose/Throat otoscopic exam Overall: external auditory canals clear 11/25/2017 None Full Exam - General 1994 Ears/Nose/Throat otoscopic exam Overall: tympanic membranes clear 11/25/2017 None Full Exam - General 1994 Ears/Nose/Throat oral cavity/pharynx/larynx Overall: oral mucosa clear 11/25/2017 None Full Exam - General 1994 Ears/Nose/Throat oral cavity/pharynx/larynx Overall: oropharyngeal mucosa clear 11/25/2017 None Full Exam - General 1994 Ears/Nose/Throat oral cavity/pharynx/larynx Overall: no masses 11/25/2017 None Full Exam - General 1994 Respiratory auscultation Overall: breath sounds clear bilaterally 11/25/2017 None Full Exam - General 1994 Respiratory respiratory effort/rhythm Overall: no retractions 11/25/2017 None Full Exam - General 1994 Respiratory respiratory effort/rhythm Overall: normal rate 11/25/2017 None Full Exam - General 1994 Cardiovascular auscultation of heart Overall: regular rate 11/25/2017 None Full Exam - General 1994 Cardiovascular auscultation of heart Overall: normal heart sounds 11/25/2017 None Full Exam - General 1994 Cardiovascular auscultation of heart Overall: no murmurs 11/25/2017 None Full Exam - General 1994 Abdomen abdominal exam Overall: no tenderness 11/25/2017 None Full Exam - General 1994 Abdomen abdominal exam Overall: normal bowel sounds 11/25/2017 None Full Exam - General 1994 Lymphatic neck nodes Overall: anterior cervical chain benign 11/25/2017 None Full Exam - General 1994 Lymphatic neck nodes Overall: posterior cervical chain benign 11/25/2017 None Full Exam - General 1994 Neurologic gait Overall: no ataxia, no unsteadiness 11/25/2017 None Full Exam - General 1994 Psychiatric orientation/consciousness Overall: oriented to person, place and time 11/25/2017 None Full Exam - General 1994 Psychiatric mood and affect Mood: depressed 11/25/2017 None Full Exam - General 1994 Psychiatric mood and affect Affect: mood congruent 11/25/2017 None Full Exam - General 1994 Constitutional general appearance Overall: well developed 09/18/2017 None Full Exam - General 1994 Constitutional general appearance Overall: in no acute distress 09/18/2017 None Full Exam - General 1994 Constitutional general appearance Overall: well nourished 09/18/2017 None Full Exam - General 1994 Eyes pupils and irises Overall: pupils equal, round, reactive to light and accomodation 09/18/2017 None Full Exam - General 1994 Ears/Nose/Throat external ear Overall: normal appearance 09/18/2017 None Full Exam - General 1994 Ears/Nose/Throat otoscopic exam Overall: external auditory canals clear 09/18/2017 None Full Exam - General 1994 Ears/Nose/Throat otoscopic exam Overall: tympanic membranes clear 09/18/2017 None Full Exam - General 1994 Ears/Nose/Throat oral cavity/pharynx/larynx Overall: no masses 09/18/2017 None Full Exam - General 1994 Respiratory auscultation Overall: breath sounds clear bilaterally 09/18/2017 None Full Exam - General 1994 Respiratory respiratory effort/rhythm Overall: no retractions 09/18/2017 None Full Exam - General 1994 Respiratory respiratory effort/rhythm Overall: normal rate 09/18/2017 None Full Exam - General 1994 Cardiovascular auscultation of heart Overall: regular rate 09/18/2017 None Full Exam - General 1994 Cardiovascular auscultation of heart Overall: normal heart sounds 09/18/2017 None Full Exam - General 1994 Cardiovascular auscultation of heart Overall: no murmurs 09/18/2017 None Full Exam - General 1994 Abdomen abdominal exam Overall: no tenderness 09/18/2017 None Full Exam - General 1994 Abdomen abdominal exam Overall: normal bowel sounds 09/18/2017 None Full Exam - General 1994 Lymphatic neck nodes Overall: anterior cervical chain benign 09/18/2017 None Full Exam - General 1994 Lymphatic neck nodes Overall: posterior cervical chain benign 09/18/2017 None Full Exam - General 1994 Neurologic gait Overall: no ataxia, no unsteadiness 09/18/2017 None Full Exam - General 1994 Psychiatric orientation/consciousness Overall: oriented to person, place and time 09/18/2017 None Full Exam - General 1994 Psychiatric mood and affect Mood: depressed 09/18/2017 None Full Exam - General 1994 Psychiatric mood and affect Affect: mood congruent 09/18/2017 None Full Exam - General 1994 Ears/Nose/Throat oral cavity/pharynx/larynx Oral mucosa: dry 09/18/2017 None Full Exam - General 1994 Constitutional general appearance Overall: well developed 05/02/2017 None Full Exam - General 1994 Constitutional general appearance Overall: in no acute distress 05/02/2017 None Full Exam - General 1994 Constitutional general appearance Overall: well nourished 05/02/2017 None Full Exam - General 1994 Eyes pupils and irises Overall: pupils equal, round, reactive to light and accomodation 05/02/2017 None Full Exam - General 1994 Ears/Nose/Throat external ear Overall: normal appearance 05/02/2017 None Full Exam - General 1994 Ears/Nose/Throat otoscopic exam Overall: external auditory canals clear 05/02/2017 None Full Exam - General 1994 Ears/Nose/Throat otoscopic exam Overall: tympanic membranes clear 05/02/2017 None Full Exam - General 1994 Ears/Nose/Throat oral cavity/pharynx/larynx Overall: oral mucosa clear 05/02/2017 None Full Exam - General 1994 Ears/Nose/Throat oral cavity/pharynx/larynx Overall: oropharyngeal mucosa clear 05/02/2017 None Full Exam - General 1994 Ears/Nose/Throat oral cavity/pharynx/larynx Overall: no masses 05/02/2017 None Full Exam - General 1994 Respiratory auscultation Overall: breath sounds clear bilaterally 05/02/2017 None Full Exam - General 1994 Respiratory respiratory effort/rhythm Overall: no retractions 05/02/2017 None Full Exam - General 1994 Respiratory respiratory effort/rhythm Overall: normal rate 05/02/2017 None Full Exam - General 1994 Cardiovascular auscultation of heart Overall: regular rate 05/02/2017 None Full Exam - General 1994 Cardiovascular auscultation of heart Overall: normal heart sounds 05/02/2017 None Full Exam - General 1994 Cardiovascular auscultation of heart Overall: no murmurs 05/02/2017 None Full Exam - General 1994 Abdomen abdominal exam Overall: no tenderness 05/02/2017 None Full Exam - General 1994 Abdomen abdominal exam Overall: normal bowel sounds 05/02/2017 None Full Exam - General 1994 Lymphatic neck nodes Overall: anterior cervical chain benign 05/02/2017 None Full Exam - General 1994 Lymphatic neck nodes Overall: posterior cervical chain benign 05/02/2017 None Full Exam - General 1994 Neurologic gait Overall: no ataxia, no unsteadiness 05/02/2017 None Full Exam - General 1994 Psychiatric orientation/consciousness Overall: oriented to person, place and time 05/02/2017 None Full Exam - General 1994 Psychiatric mood and affect Mood: depressed 05/02/2017 None Full Exam - General 1994 Psychiatric mood and affect Affect: mood congruent 05/02/2017 None Full Exam - ENT Constitutional general appearance Overall: well nourished 03/29/2017 None Full Exam - ENT Constitutional general appearance Overall: well developed 03/29/2017 None Full Exam - ENT Constitutional general appearance Overall: in no acute distress 03/29/2017 None Full Exam - ENT Neurologic orientation Overall: oriented to person, place a nd time 03/29/2017 None Full Exam - ENT Integument inspection of skin Overall: no rash, lesions 03/29/2017 None Full Exam - ENT Ears/Nose/Throat otoscopic exam Overall: tympanic membranes normal 03/29/2017 None Full Exam - ENT Ears/Nose/Throat otoscopic exam Overall: external auditory canals normal 03/29/2017 None Full Exam - ENT Ears/Nose/Throat oropharynx Oral mucosa: thrush 03/29/2017 None Full Exam - ENT Respiratory auscultation Overall: breath sounds clear bilater ally 03/29/2017 None Full Exam - ENT Respiratory inspection Overall: no retractions 03/29/2017 None Full Exam - ENT Respiratory inspection Overall: normal rate 06/2017 None Full Exam - ENT Cardiovascular auscultation of heart Overall: regular rate 03/29/2017 None Full Exam - ENT Cardiovascular auscultation of heart Overall: normal heart sounds 03/29/2017 None Full Exam - ENT Cardiovascular auscultation of heart Overall: no murmurs 03/29/2017 None Full Exam - General 1994 Constitutional general appearance Overall: well developed 11/15/2016 None Full Exam - General 1994 Constitutional general appearance Overall: in no acute distress 11/15/2016 None Full Exam - General 1994 Constitutional general appearance Overall: well nourished 11/15/2016 None Full Exam - General 1994 Eyes pupils and irises Overall: pupils equal, round, reactive to light and accomodation 11/15/2016 None Full Exam - General 1994 Ears/Nose/Throat external ear Overall: normal appearance 11/15/2016 None Full Exam - General 1994 Ears/Nose/Throat otoscopic exam Overall: external auditory canals clear 11/15/2016 None Full Exam - General 1994 Ears/Nose/Throat otoscopic exam Overall: tympanic membranes clear 11/15/2016 None Full Exam - General 1994 Ears/Nose/Throat oral cavity/pharynx/larynx Overall: oral mucosa clear 11/15/2016 None Full Exam - General 1994 Ears/Nose/Throat oral cavity/pharynx/larynx Overall: oropharyngeal mucosa clear 11/15/2016 None Full Exam - General 1994 Ears/Nose/Throat oral cavity/pharynx/larynx Overall: no masses 11/15/2016 None Full Exam - General 1994 Respiratory auscultation Overall: breath sounds clear bilaterally 11/15/2016 None Full Exam - General 1994 Respiratory respiratory effort/rhythm Overall: no retractions 11/15/2016 None Full Exam - General 1994 Respiratory respiratory effort/rhythm Overall: normal rate 11/15/2016 None Full Exam - General 1994 Cardiovascular auscultation of heart Overall: regular rate 11/15/2016 None Full Exam - General 1994 Cardiovascular auscultation of heart Overall: normal heart sounds 11/15/2016 None Full Exam - General 1994 Cardiovascular auscultation of heart Overall: no murmurs 11/15/2016 None Full Exam - General 1994 Abdomen abdominal exam Overall: no tenderness 11/15/2016 None Full Exam - General 1994 Abdomen abdominal exam Overall: normal bowel sounds 11/15/2016 None Full Exam - General 1994 Neurologic gait Overall: no ataxia, no unsteadiness 11/15/2016 None Full Exam - General 1994 Psychiatric orientation/consciousness Overall: oriented to person, place and time 11/15/2016 None Full Exam - General 1994 Psychiatric mood and affect Mood: depressed 11/15/2016 None Full Exam - General 1994 Psychiatric mood and affect Affect: mood congruent 11/15/2016 None Full Exam - General 1994 Lymphatic neck nodes Overall: anterior cervical chain benign 11/15/2016 None Full Exam - General 1994 Lymphatic neck nodes Overall: posterior cervical chain benign 11/15/2016 None Full Exam - General 1994 Constitutional general appearance Overall: well developed 11/06/2016 None Full Exam - General 1994 Constitutional general appearance Overall: in no acute distress 11/06/2016 None Full Exam - General 1994 Constitutional general appearance Overall: well nourished 11/06/2016 None Full Exam - General 1994 Ears/Nose/Throat otoscopic exam Overall: external auditory canals clear 11/06/2016 None Full Exam - General 1994 Ears/Nose/Throat otoscopic exam Overall: tympanic membranes clear 11/06/2016 None Full Exam - General 1994 Ears/Nose/Throat oral cavity/pharynx/larynx Overall: oral mucosa clear 11/06/2016 None Full Exam - General 1994 Ears/Nose/Throat oral cavity/pharynx/larynx Overall: oropharyngeal mucosa clear 11/06/2016 None Full Exam - General 1994 Respiratory auscultation Overall: breath sounds clear bilaterally 11/06/2016 None Full Exam - General 1994 Respiratory respiratory effort/rhythm Overall: no retractions 11/06/2016 None Full Exam - General 1994 Respiratory respiratory effort/rhythm Overall: normal rate 11/06/2016 None Full Exam - General 1994 Cardiovascular auscultation of heart Overall: regular rate 11/06/2016 None Full Exam - General 1994 Cardiovascular auscultation of heart Overall: normal heart sounds 11/06/2016 None Full Exam - General 1994 Abdomen abdominal exam Overall: no tenderness 11/06/2016 None Full Exam - General 1994 Abdomen abdominal exam Overall: normal bowel sounds 11/06/2016 None Full Exam - General 1994 Lymphatic neck nodes Overall: anterior cervical chain benign 11/06/2016 None Full Exam - General 1994 Lymphatic neck nodes Overall: posterior cervical chain benign 11/06/2016 None Full Exam - General 1994 Neurologic gait Overall: no ataxia, no unsteadiness 11/06/2016 None Full Exam - General 1994 Psychiatric orientation/consciousness Overall: oriented to person, place and time 11/06/2016 None Full Exam - General 1994 Psychiatric mood and affect Mood: depressed 11/06/2016 None Full Exam - General 1994 Psychiatric mood and affect Affect: mood congruent 11/06/2016 None Full Exam - General 1994 Eyes conjunctiva/eyelids Overall: conjunctiva clear 11/06/2016 None Full Exam - General 1994 Eyes conjunctiva/eyelids Overall: eyelids normal 11/06/2016 None Full Exam - General 1994 Ears/Nose/Throat lips/teeth/gingiva Overall: benign lips 11/06/2016 None Full Exam - General 1994 Constitutional general appearance Overall: well developed 08/01/2016 None Full Exam - General 1994 Constitutional general appearance Overall: in no acute distress 08/01/2016 None Full Exam - General 1994 Constitutional general appearance Overall: well nourished 08/01/2016 None Full Exam - General 1994 Eyes pupils and irises Overall: pupils equal, round, reactive to light and accomodation 08/01/2016 None Full Exam - General 1994 Ears/Nose/Throat external ear Overall: normal appearance 08/01/2016 None Full Exam - General 1994 Ears/Nose/Throat otoscopic exam Overall: external auditory canals clear 08/01/2016 None Full Exam - General 1994 Ears/Nose/Throat otoscopic exam Overall: tympanic membranes clear 08/01/2016 None Full Exam - General 1994 Ears/Nose/Throat oral cavity/pharynx/larynx Overall: oral mucosa clear 08/01/2016 None Full Exam - General 1994 Ears/Nose/Throat oral cavity/pharynx/larynx Overall: oropharyngeal mucosa clear 08/01/2016 None Full Exam - General 1994 Ears/Nose/Throat oral cavity/pharynx/larynx Overall: no masses 08/01/2016 None Full Exam - General 1994 Respiratory auscultation Overall: breath sounds clear bilaterally 08/01/2016 None Full Exam - General 1994 Respiratory respiratory effort/rhythm Overall: no retractions 08/01/2016 None Full Exam - General 1994 Respiratory respiratory effort/rhythm Overall: normal rate 08/01/2016 None Full Exam - General 1994 Cardiovascular auscultation of heart Overall: regular rate 08/01/2016 None Full Exam - General 1994 Cardiovascular auscultation of heart Overall: normal heart sounds 08/01/2016 None Full Exam - General 1994 Cardiovascular auscultation of heart Overall: no murmurs 08/01/2016 None Full Exam - General 1994 Abdomen abdominal exam Overall: no tenderness 08/01/2016 None Full Exam - General 1994 Abdomen abdominal exam Overall: normal bowel sounds 08/01/2016 None Full Exam - General 1994 Neurologic gait Overall: no ataxia, no unsteadiness 08/01/2016 None Full Exam - General 1994 Psychiatric orientation/consciousness Overall: oriented to person, place and time 08/01/2016 None Full Exam - General 1994 Psychiatric mood and affect Mood: depressed 08/01/2016 None Full Exam - General 1994 Psychiatric mood and affect Affect: mood congruent 08/01/2016 None Full Exam - General 1994 Constitutional general appearance Overall: well developed 07/02/2016 None Full Exam - General 1994 Constitutional general appearance Overall: in no acute distress 07/02/2016 None Full Exam - General 1994 Constitutional general appearance Overall: well nourished 07/02/2016 None Full Exam - General 1994 Eyes pupils and irises Overall: pupils equal, round, reactive to light and accomodation 07/02/2016 None Full Exam - General 1994 Ears/Nose/Throat external ear Overall: normal appearance 07/02/2016 None Full Exam - General 1994 Ears/Nose/Throat otoscopic exam Overall: external auditory canals clear 07/02/2016 None Full Exam - General 1994 Ears/Nose/Throat otoscopic exam Overall: tympanic membranes clear 07/02/2016 None Full Exam - General 1994 Ears/Nose/Throat oral cavity/pharynx/larynx Overall: oral mucosa clear 07/02/2016 None Full Exam - General 1994 Ears/Nose/Throat oral cavity/pharynx/larynx Overall: oropharyngeal mucosa clear 07/02/2016 None Full Exam - General 1994 Ears/Nose/Throat oral cavity/pharynx/larynx Overall: no masses 07/02/2016 None Full Exam - General 1994 Respiratory auscultation Overall: breath sounds clear bilaterally 07/02/2016 None Full Exam - General 1994 Respiratory respiratory effort/rhythm Overall: no retractions 07/02/2016 None Full Exam - General 1994 Respiratory respiratory effort/rhythm Overall: normal rate 07/02/2016 None Full Exam - General 1994 Cardiovascular auscultation of heart Overall: regular rate 07/02/2016 None Full Exam - General 1994 Cardiovascular auscultation of heart Overall: normal heart sounds 07/02/2016 None Full Exam - General 1994 Cardiovascular auscultation of heart Overall: no murmurs 07/02/2016 None Full Exam - General 1994 Abdomen abdominal exam Overall: no tenderness 07/02/2016 None Full Exam - General 1994 Abdomen abdominal exam Overall: normal bowel sounds 07/02/2016 None Full Exam - General 1994 Musculoskeletal head and neck Overall: head atraumatic 07/02/2016 None Full Exam - General 1994 Musculoskeletal head and neck Cervical Spine: tender 07/02/2016 along musculature of neck Full Exam - General 1994 Musculoskeletal head and neck Cervical Spine: presence of a scar 07/02/2016 None Full Exam - General 1994 Musculoskeletal head and neck Cervical Spine: decreased flexion 07/02/2016 None Full Exam - General 1994 Musculoskeletal head and neck Cervical Spine: decreased extension 07/02/2016 None Full Exam - General 1994 Neurologic deep tendon reflexes Overall: deep tendon reflexes intact 07/02/2016 None Full Exam - General 1994 Neurologic sensation Overall: intact to touch, pin, proprioception 07/02/2016 None Full Exam - General 1994 Neurologic gait Overall: no ataxia, no unsteadiness 07/02/2016 None Full Exam - General 1994 Psychiatric orientation/consciousness Overall: oriented to person, place and time 07/02/2016 None Full Exam - General 1994 Psychiatric mood and affect Mood: depressed 07/02/2016 None Full Exam - General 1994 Psychiatric mood and affect Affect: mood congruent 07/02/2016 None Full Exam - General 1994 Constitutional general appearance Overall: well developed 06/04/2016 None Full Exam - General 1994 Constitutional general appearance Overall: in no acute distress 06/04/2016 None Full Exam - General 1994 Constitutional general appearance Overall: well nourished 06/04/2016 None Full Exam - General 1994 Eyes pupils and irises Overall: pupils equal, round, reactive to light and accomodation 06/04/2016 None Full Exam - General 1994 Ears/Nose/Throat external ear Overall: normal appearance 06/04/2016 None Full Exam - General 1994 Ears/Nose/Throat otoscopic exam Overall: external auditory canals clear 06/04/2016 None Full Exam - General 1994 Ears/Nose/Throat otoscopic exam Overall: tympanic membranes clear 06/04/2016 None Full Exam - General 1994 Ears/Nose/Throat oral cavity/pharynx/larynx Overall: oral mucosa clear 06/04/2016 None Full Exam - General 1994 Ears/Nose/Throat oral cavity/pharynx/larynx Overall: oropharyngeal mucosa clear 06/04/2016 None Full Exam - General 1994 Ears/Nose/Throat oral cavity/pharynx/larynx Overall: no masses 06/04/2016 None Full Exam - General 1994 Respiratory auscultation Overall: breath sounds clear bilaterally 06/04/2016 None Full Exam - General 1994 Respiratory respiratory effort/rhythm Overall: no retractions 06/04/2016 None Full Exam - General 1994 Respiratory respiratory effort/rhythm Overall: normal rate 06/04/2016 None Full Exam - General 1994 Cardiovascular auscultation of heart Overall: regular rate 06/04/2016 None Full Exam - General 1994 Cardiovascular auscultation of heart Overall: normal heart sounds 06/04/2016 None Full Exam - General 1994 Cardiovascular auscultation of heart Overall: no murmurs 06/04/2016 None Full Exam - General 1994 Abdomen abdominal exam Overall: no tenderness 06/04/2016 None Full Exam - General 1994 Abdomen abdominal exam Overall: normal bowel sounds 06/04/2016 None Full Exam - General 1994 Musculoskeletal head and neck Overall: head atraumatic 06/04/2016 None Full Exam - General 1994 Musculoskeletal head and neck Cervical Spine: tender 06/04/2016 along musculature of neck Full Exam - General 1994 Musculoskeletal head and neck Cervical Spine: presence of a scar 06/04/2016 None Full Exam - General 1994 Musculoskeletal head and neck Cervical Spine: decreased flexion 06/04/2016 None Full Exam - General 1994 Musculoskeletal head and neck Cervical Spine: decreased extension 06/04/2016 None Full Exam - General 1994 Neurologic deep tendon reflexes Overall: deep tendon reflexes intact 06/04/2016 None Full Exam - General 1994 Neurologic sensation Overall: intact to touch, pin, proprioception 06/04/2016 None Full Exam - General 1994 Neurologic gait Overall: no ataxia, no unsteadiness 06/04/2016 None Full Exam - General 1994 Psychiatric orientation/consciousness Overall: oriented to person, place and time 06/04/2016 None Full Exam - General 1994 Psychiatric mood and affect Mood: depressed 06/04/2016 None Full Exam - General 1994 Psychiatric mood and affect Affect: mood congruent 06/04/2016 None Full Exam - General 1994 Constitutional general appearance Overall: well developed 03/26/2016 None Full Exam - General 1994 Constitutional general appearance Overall: in no acute distress 03/26/2016 None Full Exam - General 1994 Constitutional general appearance Overall: well nourished 03/26/2016 None Full Exam - General 1994 Eyes pupils and irises Overall: pupils equal, round, reactive to light and accomodation 03/26/2016 None Full Exam - General 1994 Ears/Nose/Throat external ear Overall: normal appearance 03/26/2016 None Full Exam - General 1994 Ears/Nose/Throat otoscopic exam Overall: external auditory canals clear 03/26/2016 None Full Exam - General 1994 Ears/Nose/Throat otoscopic exam Overall: tympanic membranes clear 03/26/2016 None Full Exam - General 1994 Ears/Nose/Throat oral cavity/pharynx/larynx Overall: oral mucosa clear 03/26/2016 None Full Exam - General 1994 Ears/Nose/Throat oral cavity/pharynx/larynx Overall: oropharyngeal mucosa clear 03/26/2016 None Full Exam - General 1994 Ears/Nose/Throat oral cavity/pharynx/larynx Overall: no masses 03/26/2016 None Full Exam - General 1994 Respiratory auscultation Overall: breath sounds clear bilaterally 03/26/2016 None Full Exam - General 1994 Respiratory respiratory effort/rhythm Overall: no retractions 03/26/2016 None Full Exam - General 1994 Respiratory respiratory effort/rhythm Overall: normal rate 03/26/2016 None Full Exam - General 1994 Cardiovascular auscultation of heart Overall: regular rate 03/26/2016 None Full Exam - General 1994 Cardiovascular auscultation of heart Overall: normal heart sounds 03/26/2016 None Full Exam - General 1994 Cardiovascular auscultation of heart Overall: no murmurs 03/26/2016 None Full Exam - General 1994 Abdomen abdominal exam Overall: no tenderness 03/26/2016 None Full Exam - General 1994 Abdomen abdominal exam Overall: normal bowel sounds 03/26/2016 None Full Exam - General 1994 Musculoskeletal head and neck Overall: head atraumatic 03/26/2016 None Full Exam - General 1994 Musculoskeletal head and neck Cervical Spine: tender 03/26/2016 along musculature of neck Full Exam - General 1994 Musculoskeletal head and neck Cervical Spine: presence of a scar 03/26/2016 None Full Exam - General 1994 Musculoskeletal head and neck Cervical Spine: decreased flexion 03/26/2016 None Full Exam - General 1994 Musculoskeletal head and neck Cervical Spine: decreased extension 03/26/2016 None Full Exam - General 1994 Neurologic deep tendon reflexes Overall: deep tendon reflexes intact 03/26/2016 None Full Exam - General 1994 Neurologic sensation Overall: intact to touch, pin, proprioception 03/26/2016 None Full Exam - General 1994 Neurologic gait Overall: no ataxia, no unsteadiness 03/26/2016 None Full Exam - General 1994 Psychiatric orientation/consciousness Overall: oriented to person, place and time 03/26/2016 None Full Exam - General 1994 Psychiatric mood and affect Mood: depressed 03/26/2016 None Full Exam - General 1994 Psychiatric mood and affect Affect: mood congruent 03/26/2016 None Full Exam - General 1994 Constitutional general appearance Overall: well developed 11/23/2015 None Full Exam - General 1994 Constitutional general appearance Overall: in no acute distress 11/23/2015 None Full Exam - General 1994 Constitutional general appearance Overall: well nourished 11/23/2015 None Full Exam - General 1994 Eyes pupils and irises Overall: pupils equal, round, reactive to light and accomodation 11/23/2015 None Full Exam - General 1994 Ears/Nose/Throat external ear Overall: normal appearance 11/23/2015 None Full Exam - General 1994 Ears/Nose/Throat otoscopic exam Overall: external auditory canals clear 11/23/2015 None Full Exam - General 1994 Ears/Nose/Throat otoscopic exam Overall: tympanic membranes clear 11/23/2015 None Full Exam - General 1994 Ears/Nose/Throat oral cavity/pharynx/larynx Overall: oral mucosa clear 11/23/2015 None Full Exam - General 1994 Ears/Nose/Throat oral cavity/pharynx/larynx Overall: oropharyngeal mucosa clear 11/23/2015 None Full Exam - General 1994 Ears/Nose/Throat oral cavity/pharynx/larynx Overall: no masses 11/23/2015 None Full Exam - General 1994 Respiratory auscultation Overall: breath sounds clear bilaterally 11/23/2015 None Full Exam - General 1994 Respiratory respiratory effort/rhythm Overall: no retractions 11/23/2015 None Full Exam - General 1994 Respiratory respiratory effort/rhythm Overall: normal rate 11/23/2015 None Full Exam - General 1994 Cardiovascular auscultation of heart Overall: regular rate 11/23/2015 None Full Exam - General 1994 Cardiovascular auscultation of heart Overall: normal heart sounds 11/23/2015 None Full Exam - General 1994 Cardiovascular auscultation of heart Overall: no murmurs 11/23/2015 None Full Exam - General 1994 Abdomen abdominal exam Overall: no tenderness 11/23/2015 None Full Exam - General 1994 Abdomen abdominal exam Overall: normal bowel sounds 11/23/2015 None Full Exam - General 1994 Musculoskeletal head and neck Overall: head atraumatic 11/23/2015 None Full Exam - General 1994 Musculoskeletal head and neck Cervical Spine: tender 11/23/2015 along musculature of neck Full Exam - General 1994 Musculoskeletal head and neck Cervical Spine: presence of a scar 11/23/2015 None Full Exam - General 1994 Musculoskeletal head and neck Cervical Spine: decreased flexion 11/23/2015 None Full Exam - General 1994 Musculoskeletal head and neck Cervical Spine: decreased extension 11/23/2015 None Full Exam - General 1994 Neurologic deep tendon reflexes Overall: deep tendon reflexes intact 11/23/2015 None Full Exam - General 1994 Neurologic sensation Overall: intact to touch, pin, proprioception 11/23/2015 None Full Exam - General 1994 Neurologic gait Overall: no ataxia, no unsteadiness 11/23/2015 None Full Exam - General 1994 Psychiatric orientation/consciousness Overall: oriented to person, place and time 11/23/2015 None Full Exam - General 1994 Psychiatric mood and affect Mood: depressed 11/23/2015 None Full Exam - General 1994 Psychiatric mood and affect Affect: mood congruent 11/23/2015 None Full Exam - General 1994 Constitutional general appearance Overall: well developed 10/14/2015 None Full Exam - General 1994 Constitutional general appearance Overall: in no acute distress 10/14/2015 None Full Exam - General 1994 Constitutional general appearance Overall: well nourished 10/14/2015 None Full Exam - General 1994 Eyes pupils and irises Overall: pupils equal, round, reactive to light and accomodation 10/14/2015 None Full Exam - General 1994 Ears/Nose/Throat external ear Overall: normal appearance 10/14/2015 None Full Exam - General 1994 Ears/Nose/Throat otoscopic exam Overall: external auditory canals clear 10/14/2015 None Full Exam - General 1994 Ears/Nose/Throat otoscopic exam Overall: tympanic membranes clear 10/14/2015 None Full Exam - General 1994 Ears/Nose/Throat oral cavity/pharynx/larynx Overall: oral mucosa clear 10/14/2015 None Full Exam - General 1994 Ears/Nose/Throat oral cavity/pharynx/larynx Overall: oropharyngeal mucosa clear 10/14/2015 None Full Exam - General 1994 Ears/Nose/Throat oral cavity/pharynx/larynx Overall: no masses 10/14/2015 None Full Exam - General 1994 Respiratory auscultation Overall: breath sounds clear bilaterally 10/14/2015 None Full Exam - General 1994 Respiratory respiratory effort/rhythm Overall: no retractions 10/14/2015 None Full Exam - General 1994 Respiratory respiratory effort/rhythm Overall: normal rate 10/14/2015 None Full Exam - General 1994 Cardiovascular auscultation of heart Overall: regular rate 10/14/2015 None Full Exam - General 1994 Cardiovascular auscultation of heart Overall: normal heart sounds 10/14/2015 None Full Exam - General 1994 Cardiovascular auscultation of heart Overall: no murmurs 10/14/2015 None Full Exam - General 1994 Abdomen abdominal exam Overall: no tenderness 10/14/2015 None Full Exam - General 1994 Abdomen abdominal exam Overall: normal bowel sounds 10/14/2015 None Full Exam - General 1994 Musculoskeletal head and neck Overall: head atraumatic 10/14/2015 None Full Exam - General 1994 Musculoskeletal head and neck Cervical Spine: tender 10/14/2015 along musculature of neck Full Exam - General 1994 Musculoskeletal head and neck Cervical Spine: presence of a scar 10/14/2015 None Full Exam - General 1994 Musculoskeletal head and neck Cervical Spine: decreased flexion 10/14/2015 None Full Exam - General 1994 Musculoskeletal head and neck Cervical Spine: decreased extension 10/14/2015 None Full Exam - General 1994 Neurologic deep tendon reflexes Overall: deep tendon reflexes intact 10/14/2015 None Full Exam - General 1994 Neurologic sensation Overall: intact to touch, pin, proprioception 10/14/2015 None Full Exam - General 1994 Neurologic gait Overall: no ataxia, no unsteadiness 10/14/2015 None Full Exam - General 1994 Psychiatric orientation/consciousness Overall: oriented to person, place and time 10/14/2015 None Full Exam - General 1994 Psychiatric mood and affect Mood: depressed 10/14/2015 None Full Exam - General 1994 Psychiatric mood and affect Affect: mood congruent 10/14/2015 None Full Exam - General 1994 Constitutional general appearance Overall: well developed 03/31/2015 None Full Exam - General 1994 Constitutional general appearance Overall: in no acute distress 03/31/2015 None Full Exam - General 1994 Constitutional general appearance Overall: well nourished 03/31/2015 None Full Exam - General 1994 Eyes pupils and irises Overall: pupils equal, round, reactive to light and accomodation 03/31/2015 None Full Exam - General 1994 Ears/Nose/Throat external ear Overall: normal appearance 03/31/2015 None Full Exam - General 1994 Ears/Nose/Throat otoscopic exam Overall: external auditory canals clear 03/31/2015 None Full Exam - General 1994 Ears/Nose/Throat otoscopic exam Overall: tympanic membranes clear 03/31/2015 None Full Exam - General 1994 Ears/Nose/Throat oral cavity/pharynx/larynx Overall: oral mucosa clear 03/31/2015 None Full Exam - General 1994 Ears/Nose/Throat oral cavity/pharynx/larynx Overall: oropharyngeal mucosa clear 03/31/2015 None Full Exam - General 1994 Ears/Nose/Throat oral cavity/pharynx/larynx Overall: no masses 03/31/2015 None Full Exam - General 1994 Respiratory auscultation Overall: breath sounds clear bilaterally 03/31/2015 None Full Exam - General 1994 Respiratory respiratory effort/rhythm Overall: no retractions 03/31/2015 None Full Exam - General 1994 Respiratory respiratory effort/rhythm Overall: normal rate 03/31/2015 None Full Exam - General 1994 Cardiovascular auscultation of heart Overall: regular rate 03/31/2015 None Full Exam - General 1994 Cardiovascular auscultation of heart Overall: normal heart sounds 03/31/2015 None Full Exam - General 1994 Cardiovascular auscultation of heart Overall: no murmurs 03/31/2015 None Full Exam - General 1994 Abdomen abdominal exam Overall: no tenderness 03/31/2015 None Full Exam - General 1994 Abdomen abdominal exam Overall: normal bowel sounds 03/31/2015 None Full Exam - General 1994 Musculoskeletal head and neck Overall: head atraumatic 03/31/2015 None Full Exam - General 1994 Musculoskeletal head and neck Cervical Spine: tender 03/31/2015 along musculature of neck Full Exam - General 1994 Musculoskeletal head and neck Cervical Spine: presence of a scar 03/31/2015 None Full Exam - General 1994 Musculoskeletal head and neck Cervical Spine: decreased flexion 03/31/2015 None Full Exam - General 1994 Musculoskeletal head and neck Cervical Spine: decreased extension 03/31/2015 None Full Exam - General 1994 Neurologic deep tendon reflexes Overall: deep tendon reflexes intact 03/31/2015 None Full Exam - General 1994 Neurologic sensation Overall: intact to touch, pin, proprioception 03/31/2015 None Full Exam - General 1994 Neurologic gait Overall: no ataxia, no unsteadiness 03/31/2015 None Full Exam - General 1994 Psychiatric orientation/consciousness Overall: oriented to person, place and time 03/31/2015 None Full Exam - General 1994 Psychiatric mood and affect Mood: depressed 03/31/2015 None Full Exam - General 1994 Psychiatric mood and affect Affect: mood congruent 03/31/2015 None Full Exam - General 1994 Constitutional general appearance Overall: well developed 08/31/2014 None Full Exam - General 1994 Constitutional general appearance Overall: in no acute distress 08/31/2014 None Full Exam - General 1994 Constitutional general appearance Overall: well nourished 08/31/2014 None Full Exam - General 1994 Eyes pupils and irises Overall: pupils equal, round, reactive to light and accomodation 08/31/2014 None Full Exam - General 1994 Ears/Nose/Throat external ear Overall: normal appearance 08/31/2014 None Full Exam - General 1994 Ears/Nose/Throat otoscopic exam Overall: external auditory canals clear 08/31/2014 None Full Exam - General 1994 Ears/Nose/Throat otoscopic exam Overall: tympanic membranes clear 08/31/2014 None Full Exam - General 1994 Ears/Nose/Throat oral cavity/pharynx/larynx Overall: oral mucosa clear 08/31/2014 None Full Exam - General 1994 Ears/Nose/Throat oral cavity/pharynx/larynx Overall: oropharyngeal mucosa clear 08/31/2014 None Full Exam - General 1994 Ears/Nose/Throat oral cavity/pharynx/larynx Overall: no masses 08/31/2014 None Full Exam - General 1994 Respiratory auscultation Overall: breath sounds clear bilaterally 08/31/2014 None Full Exam - General 1994 Respiratory respiratory effort/rhythm Overall: no retractions 08/31/2014 None Full Exam - General 1994 Respiratory respiratory effort/rhythm Overall: normal rate 08/31/2014 None Full Exam - General 1994 Cardiovascular auscultation of heart Overall: regular rate 08/31/2014 None Full Exam - General 1994 Cardiovascular auscultation of heart Overall: normal heart sounds 08/31/2014 None Full Exam - General 1994 Cardiovascular auscultation of heart Overall: no murmurs 08/31/2014 None Full Exam - General 1994 Abdomen abdominal exam Overall: no tenderness 08/31/2014 None Full Exam - General 1994 Abdomen abdominal exam Overall: normal bowel sounds 08/31/2014 None Full Exam - General 1994 Musculoskeletal head and neck Overall: head atraumatic 08/31/2014 None Full Exam - General 1994 Musculoskeletal head and neck Cervical Spine: tender 08/31/2014 along musculature of neck Full Exam - General 1994 Musculoskeletal head and neck Cervical Spine: presence of a scar 08/31/2014 None Full Exam - General 1994 Musculoskeletal head and neck Cervical Spine: decreased flexion 08/31/2014 None Full Exam - General 1994 Musculoskeletal head and neck Cervical Spine: decreased extension 08/31/2014 None Full Exam - General 1994 Neurologic deep tendon reflexes Overall: deep tendon reflexes intact 08/31/2014 None Full Exam - General 1994 Neurologic sensation Overall: intact to touch, pin, proprioception 08/31/2014 None Full Exam - General 1994 Neurologic gait Overall: no ataxia, no unsteadiness 08/31/2014 None Full Exam - General 1994 Psychiatric orientation/consciousness Overall: oriented to person, place and time 08/31/2014 None Full Exam - General 1994 Psychiatric mood and affect Mood: depressed 08/31/2014 None Full Exam - General 1994 Psychiatric mood and affect Affect: mood congruent 08/31/2014 None Full Exam - General 1994 Constitutional general appearance Overall: well developed 08/10/2014 None Full Exam - General 1994 Constitutional general appearance Overall: in no acute distress 08/10/2014 None Full Exam - General 1994 Constitutional general appearance Overall: well nourished 08/10/2014 None Full Exam - General 1994 Eyes pupils and irises Overall: pupils equal, round, reactive to light and accomodation 08/10/2014 None Full Exam - General 1994 Ears/Nose/Throat external ear Overall: normal appearance 08/10/2014 None Full Exam - General 1994 Ears/Nose/Throat otoscopic exam Overall: external auditory canals clear 08/10/2014 None Full Exam - General 1994 Ears/Nose/Throat otoscopic exam Overall: tympanic membranes clear 08/10/2014 None Full Exam - General 1994 Ears/Nose/Throat oral cavity/pharynx/larynx Overall: oral mucosa clear 08/10/2014 None Full Exam - General 1994 Ears/Nose/Throat oral cavity/pharynx/larynx Overall: oropharyngeal mucosa clear 08/10/2014 None Full Exam - General 1994 Ears/Nose/Throat oral cavity/pharynx/larynx Overall: no masses 08/10/2014 None Full Exam - General 1994 Respiratory auscultation Overall: breath sounds clear bilaterally 08/10/2014 None Full Exam - General 1994 Respiratory respiratory effort/rhythm Overall: no retractions 08/10/2014 None Full Exam - General 1994 Respiratory respiratory effort/rhythm Overall: normal rate 08/10/2014 None Full Exam - General 1994 Cardiovascular auscultation of heart Overall: regular rate 08/10/2014 None Full Exam - General 1994 Cardiovascular auscultation of heart Overall: normal heart sounds 08/10/2014 None Full Exam - General 1994 Cardiovascular auscultation of heart Overall: no murmurs 08/10/2014 None Full Exam - General 1994 Abdomen abdominal exam Overall: no tenderness 08/10/2014 None Full Exam - General 1994 Abdomen abdominal exam Overall: normal bowel sounds 08/10/2014 None Full Exam - General 1994 Musculoskeletal head and neck Overall: head atraumatic 08/10/2014 None Full Exam - General 1994 Musculoskeletal head and neck Cervical Spine: tender 08/10/2014 along musculature of neck Full Exam - General 1994 Musculoskeletal head and neck Cervical Spine: presence of a scar 08/10/2014 None Full Exam - General 1994 Musculoskeletal head and neck Cervical Spine: decreased flexion 08/10/2014 None Full Exam - General 1994 Musculoskeletal head and neck Cervical Spine: decreased extension 08/10/2014 None Full Exam - General 1994 Neurologic deep tendon reflexes Overall: deep tendon reflexes intact 08/10/2014 None Full Exam - General 1994 Neurologic sensation Overall: intact to touch, pin, proprioception 08/10/2014 None Full Exam - General 1994 Neurologic gait Overall: no ataxia, no unsteadiness 08/10/2014 None Full Exam - General 1994 Psychiatric orientation/consciousness Overall: oriented to person, place and time 08/10/2014 None Full Exam - General 1994 Psychiatric mood and affect Mood: depressed 08/10/2014 None Full Exam - General 1994 Psychiatric mood and affect Affect: mood congruent 08/10/2014 None Full Exam - General 1994 Constitutional general appearance Overall: well developed 05/06/2014 None Full Exam - General 1994 Constitutional general appearance Overall: in no acute distress 05/06/2014 None Full Exam - General 1994 Constitutional general appearance Overall: well nourished 05/06/2014 None Full Exam - General 1994 Eyes pupils and irises Overall: pupils equal, round, reactive to light and accomodation 05/06/2014 None Full Exam - General 1994 Ears/Nose/Throat external ear Overall: normal appearance 05/06/2014 None Full Exam - General 1994 Ears/Nose/Throat otoscopic exam Overall: external auditory canals clear 05/06/2014 None Full Exam - General 1994 Ears/Nose/Throat otoscopic exam Overall: tympanic membranes clear 05/06/2014 None Full Exam - General 1994 Ears/Nose/Throat oral cavity/pharynx/larynx Overall: oral mucosa clear 05/06/2014 None Full Exam - General 1994 Ears/Nose/Throat oral cavity/pharynx/larynx Overall: oropharyngeal mucosa clear 05/06/2014 None Full Exam - General 1994 Ears/Nose/Throat oral cavity/pharynx/larynx Overall: no masses 05/06/2014 None Full Exam - General 1994 Respiratory auscultation Overall: breath sounds clear bilaterally 05/06/2014 None Full Exam - General 1994 Respiratory respiratory effort/rhythm Overall: no retractions 05/06/2014 None Full Exam - General 1994 Respiratory respiratory effort/rhythm Overall: normal rate 05/06/2014 None Full Exam - General 1994 Cardiovascular auscultation of heart Overall: regular rate 05/06/2014 None Full Exam - General 1994 Cardiovascular auscultation of heart Overall: normal heart sounds 05/06/2014 None Full Exam - General 1994 Cardiovascular auscultation of heart Overall: no murmurs 05/06/2014 None Full Exam - General 1994 Abdomen abdominal exam Overall: no tenderness 05/06/2014 None Full Exam - General 1994 Abdomen abdominal exam Overall: normal bowel sounds 05/06/2014 None Full Exam - General 1994 Musculoskeletal head and neck Overall: head atraumatic 05/06/2014 None Full Exam - General 1994 Musculoskeletal head and neck Cervical Spine: tender 05/06/2014 along musculature of neck Full Exam - General 1994 Musculoskeletal head and neck Cervical Spine: presence of a scar 05/06/2014 None Full Exam - General 1994 Musculoskeletal head and neck Cervical Spine: decreased flexion 05/06/2014 None Full Exam - General 1994 Musculoskeletal head and neck Cervical Spine: decreased extension 05/06/2014 None Full Exam - General 1994 Neurologic deep tendon reflexes Overall: deep tendon reflexes intact 05/06/2014 None Full Exam - General 1994 Neurologic sensation Overall: intact to touch, pin, proprioception 05/06/2014 None Full Exam - General 1994 Neurologic gait Overall: no ataxia, no unsteadiness 05/06/2014 None Full Exam - General 1994 Psychiatric orientation/consciousness Overall: oriented to person, place and time 05/06/2014 None Full Exam - General 1994 Psychiatric mood and affect Mood: depressed 05/06/2014 None Full Exam - General 1994 Psychiatric mood and affect Affect: mood congruent 05/06/2014 None Full Exam - General 1994 Constitutional general appearance Overall: well developed 04/14/2014 None Full Exam - General 1994 Constitutional general appearance Overall: in no acute distress 04/14/2014 None Full Exam - General 1994 Constitutional general appearance Overall: well nourished 04/14/2014 None Full Exam - General 1994 Eyes pupils and irises Overall: pupils equal, round, reactive to light and accomodation 04/14/2014 None Full Exam - General 1994 Ears/Nose/Throat otoscopic exam Overall: external auditory canals clear 04/14/2014 None Full Exam - General 1994 Ears/Nose/Throat otoscopic exam Overall: tympanic membranes clear 04/14/2014 None Full Exam - General 1994 Ears/Nose/Throat oral cavity/pharynx/larynx Overall: oral mucosa clear 04/14/2014 None Full Exam - General 1994 Ears/Nose/Throat oral cavity/pharynx/larynx Overall: oropharyngeal mucosa clear 04/14/2014 None Full Exam - General 1994 Ears/Nose/Throat oral cavity/pharynx/larynx Overall: no masses 04/14/2014 None Full Exam - General 1994 Respiratory auscultation Overall: breath sounds clear bilaterally 04/14/2014 None Full Exam - General 1994 Respiratory respiratory effort/rhythm Overall: no retractions 04/14/2014 None Full Exam - General 1994 Respiratory respiratory effort/rhythm Overall: normal rate 04/14/2014 None Full Exam - General 1994 Cardiovascular auscultation of heart Overall: regular rate 04/14/2014 None Full Exam - General 1994 Cardiovascular auscultation of heart Overall: normal heart sounds 04/14/2014 None Full Exam - General 1994 Cardiovascular auscultation of heart Overall: no murmurs 04/14/2014 None Full Exam - General 1994 Abdomen abdominal exam Overall: no tenderness 04/14/2014 None Full Exam - General 1994 Abdomen abdominal exam Overall: normal bowel sounds 04/14/2014 None Full Exam - General 1994 Musculoskeletal head and neck Overall: head atraumatic 04/14/2014 None Full Exam - General 1994 Neurologic deep tendon reflexes Overall: deep tendon reflexes intact 04/14/2014 None Full Exam - General 1994 Neurologic sensation Overall: intact to touch, pin, proprioception 04/14/2014 None Full Exam - General 1994 Neurologic gait Overall: no ataxia, no unsteadiness 04/14/2014 None Full Exam - General 1994 Psychiatric orientation/consciousness Overall: oriented to person, place and time 04/14/2014 None Full Exam - General 1994 Psychiatric mood and affect Mood: depressed 04/14/2014 None Full Exam - General 1994 Psychiatric mood and affect Affect: mood congruent 04/14/2014 None Full Exam - General 1994 Ears/Nose/Throat external ear Overall: normal appearance 04/14/2014 None Full Exam - General 1994 Musculoskeletal head and neck Cervical Spine: presence of a scar 04/14/2014 None Full Exam - General 1994 Musculoskeletal head and neck Cervical Spine: decreased flexion 04/14/2014 None Full Exam - General 1994 Musculoskeletal head and neck Cervical Spine: decreased extension 04/14/2014 None Full Exam - General 1994 Musculoskeletal head and neck Cervical Spine: tender 04/14/2014 along musculature of neck Full Exam - General 1994 Constitutional general appearance Overall: well developed 11/10/2013 None Full Exam - General 1994 Constitutional general appearance Overall: in no acute distress 11/10/2013 None Full Exam - General 1994 Constitutional general appearance Overall: well nourished 11/10/2013 None Full Exam - General 1994 Eyes pupils and irises Overall: pupils equal, round, reactive to light and accomodation 11/10/2013 None Full Exam - General 1994 Ears/Nose/Throat otoscopic exam Overall: external auditory canals clear 11/10/2013 None Full Exam - General 1994 Ears/Nose/Throat otoscopic exam Overall: tympanic membranes clear 11/10/2013 None Full Exam - General 1994 Ears/Nose/Throat oral cavity/pharynx/larynx Overall: oral mucosa clear 11/10/2013 None Full Exam - General 1994 Ears/Nose/Throat oral cavity/pharynx/larynx Overall: oropharyngeal mucosa clear 11/10/2013 None Full Exam - General 1994 Ears/Nose/Throat oral cavity/pharynx/larynx Overall: no masses 11/10/2013 None Full Exam - General 1994 Respiratory auscultation Overall: breath sounds clear bilaterally 11/10/2013 None Full Exam - General 1994 Respiratory respiratory effort/rhythm Overall: no retractions 11/10/2013 None Full Exam - General 1994 Respiratory respiratory effort/rhythm Overall: normal rate 11/10/2013 None Full Exam - General 1994 Cardiovascular auscultation of heart Overall: regular rate 11/10/2013 None Full Exam - General 1994 Cardiovascular auscultation of heart Overall: normal heart sounds 11/10/2013 None Full Exam - General 1994 Cardiovascular auscultation of heart Overall: no murmurs 11/10/2013 None Full Exam - General 1994 Abdomen abdominal exam Overall: no tenderness 11/10/2013 None Full Exam - General 1994 Abdomen abdominal exam Overall: normal bowel sounds 11/10/2013 None Full Exam - General 1994 Musculoskeletal spine, ribs and pelvis Overall: ribs benign 11/10/2013 None Full Exam - General 1994 Musculoskeletal spine, ribs and pelvis Overall: spine benign 11/10/2013 None Full Exam - General 1994 Musculoskeletal head and neck Overall: head atraumatic 11/10/2013 None Full Exam - General 1994 Musculoskeletal head and neck Overall: cervical spine benign 11/10/2013 None Full Exam - General 1994 Neurologic deep tendon reflexes Overall: deep tendon reflexes intact 11/10/2013 None Full Exam - General 1994 Neurologic gait Overall: no ataxia, no unsteadiness 11/10/2013 None Full Exam - General 1994 Psychiatric orientation/consciousness Overall: oriented to person, place and time 11/10/2013 None Full Exam - General 1994 Psychiatric mood and affect Mood: depressed 11/10/2013 None Full Exam - General 1994 Psychiatric mood and affect Affect: mood congruent 11/10/2013 None Full Exam - General 1994 Musculoskeletal spine, ribs and pelvis Palpation: tender along femur 11/10/2013 lateral over greater trochanter and iliotibial band region from hip to knee bilaterally Full Exam - General 1994 Neurologic sensation Overall: intact to touch, pin, proprioception 11/10/2013 None Full Exam - General 1994 Constitutional general appearance Overall: well developed 07/14/2013 None Full Exam - General 1994 Constitutional general appearance Overall: in no acute distress 07/14/2013 None Full Exam - General 1994 Constitutional general appearance Overall: well nourished 07/14/2013 None Full Exam - General 1994 Eyes pupils and irises Overall: pupils equal, round, reactive to light and accomodation 07/14/2013 None Full Exam - General 1994 Ears/Nose/Throat otoscopic exam Overall: external auditory canals clear 07/14/2013 None Full Exam - General 1994 Ears/Nose/Throat otoscopic exam Overall: tympanic membranes clear 07/14/2013 None Full Exam - General 1994 Ears/Nose/Throat oral cavity/pharynx/larynx Overall: oral mucosa clear 07/14/2013 None Full Exam - General 1994 Ears/Nose/Throat oral cavity/pharynx/larynx Overall: oropharyngeal mucosa clear 07/14/2013 None Full Exam - General 1994 Ears/Nose/Throat oral cavity/pharynx/larynx Overall: no masses 07/14/2013 None Full Exam - General 1994 Respiratory auscultation Overall: breath sounds clear bilaterally 07/14/2013 None Full Exam - General 1994 Respiratory respiratory effort/rhythm Overall: no retractions 07/14/2013 None Full Exam - General 1994 Respiratory respiratory effort/rhythm Overall: normal rate 07/14/2013 None Full Exam - General 1994 Cardiovascular auscultation of heart Overall: regular rate 07/14/2013 None Full Exam - General 1994 Cardiovascular auscultation of heart Overall: normal heart sounds 07/14/2013 None Full Exam - General 1994 Cardiovascular auscultation of heart Overall: no murmurs 07/14/2013 None Full Exam - General 1994 Abdomen abdominal exam Overall: no tenderness 07/14/2013 None Full Exam - General 1994 Abdomen abdominal exam Overall: normal bowel sounds 07/14/2013 None Full Exam - General 1994 Musculoskeletal spine, ribs and pelvis Overall: ribs benign 07/14/2013 None Full Exam - General 1994 Musculoskeletal spine, ribs and pelvis Overall: spine benign 07/14/2013 None Full Exam - General 1994 Musculoskeletal spine, ribs and pelvis Overall: good posture 07/14/2013 None Full Exam - General 1994 Musculoskeletal head and neck Overall: head atraumatic 07/14/2013 None Full Exam - General 1994 Musculoskeletal head and neck Overall: cervical spine benign 07/14/2013 None Full Exam - General 1994 Neurologic deep tendon reflexes Overall: deep tendon reflexes intact 07/14/2013 None Full Exam - General 1994 Neurologic gait Overall: no ataxia, no unsteadiness 07/14/2013 None Full Exam - General 1994 Psychiatric orientation/consciousness Overall: oriented to person, place and time 07/14/2013 None Full Exam - General 1994 Psychiatric mood and affect Mood: depressed 07/14/2013 None Full Exam - General 1994 Psychiatric mood and affect Affect: mood congruent 07/14/2013 None Full Exam - General 1994 Constitutional general appearance Overall: well developed 06/12/2013 None Full Exam - General 1994 Constitutional general appearance Overall: in no acute distress 06/12/2013 None Full Exam - General 1994 Constitutional general appearance Overall: well nourished 06/12/2013 None Full Exam - General 1994 Eyes pupils and irises Overall: pupils equal, round, reactive to light and accomodation 06/12/2013 None Full Exam - General 1995 Ears/Nose/Throat otoscopic exam Overall: external auditory canals clear 06/12/2013 None Full Exam - General 1995 Ears/Nose/Throat otoscopic exam Overall: tympanic membranes clear 06/12/2013 None Full Exam - General 1994 Ears/Nose/Throat oral cavity/pharynx/larynx Overall: oral mucosa clear 06/12/2013 None Full Exam - General 1995 Ears/Nose/Throat oral cavity/pharynx/larynx Overall: oropharyngeal mucosa clear 06/12/2013 None Full Exam - General 1994 Ears/Nose/Throat oral cavity/pharynx/larynx Overall: no masses 06/12/2013 None Full Exam - General 1994 Respiratory auscultation Overall: breath sounds clear bilaterally 06/12/2013 None Full Exam - General 1994 Respiratory respiratory effort/rhythm Overall: no retractions 06/12/2013 None Full Exam - General 1994 Respiratory respiratory effort/rhythm Overall: normal rate 06/12/2013 None Full Exam - General 1994 Cardiovascular auscultation of heart Overall: regular rate 06/12/2013 None Full Exam - General 1994 Cardiovascular auscultation of heart Overall: normal heart sounds 06/12/2013 None Full Exam - General 1994 Cardiovascular auscultation of heart Overall: no murmurs 06/12/2013 None Full Exam - General 1994 Abdomen abdominal exam Overall: no tenderness 06/12/2013 None Full Exam - General 1994 Abdomen abdominal exam Overall: normal bowel sounds 06/12/2013 None Full Exam - General 1994 Musculoskeletal spine, ribs and pelvis Overall: ribs benign 06/12/2013 None Full Exam - General 1994 Musculoskeletal spine, ribs and pelvis Overall: spine benign 06/12/2013 None Full Exam - General 1994 Musculoskeletal spine, ribs and pelvis Overall: good posture 06/12/2013 None Full Exam - General 1994 Musculoskeletal head and neck Overall: head atraumatic 06/12/2013 None Full Exam - General 1994 Musculoskeletal head and neck Overall: cervical spine benign 06/12/2013 None Full Exam - General 1994 Neurologic deep tendon reflexes Overall: deep tendon reflexes intact 06/12/2013 None Full Exam - General 1994 Neurologic gait Overall: no ataxia, no unsteadiness 06/12/2013 None Full Exam - General 1994 Psychiatric orientation/consciousness Overall: oriented to person, place and time 06/12/2013 None Full Exam - General 1994 Psychiatric mood and affect Mood: depressed 06/12/2013 None Full Exam - General 1994 Psychiatric mood and affect Affect: mood congruent 06/12/2013 None Full Exam - General 1994 Constitutional general appearance Overall: well developed 05/20/2013 None Full Exam - General 1994 Constitutional general appearance Overall: in no acute distress 05/20/2013 None Full Exam - General 1994 Constitutional general appearance Overall: well nourished 05/20/2013 None Full Exam - General 1994 Eyes pupils and irises Overall: pupils equal, round, reactive to light and accomodation 05/20/2013 None Full Exam - General 1994 Ears/Nose/Throat otoscopic exam Overall: external auditory canals clear 05/20/2013 None Full Exam - General 1994 Ears/Nose/Throat otoscopic exam Overall: tympanic membranes clear 05/20/2013 None Full Exam - General 1994 Ears/Nose/Throat oral cavity/pharynx/larynx Overall: oral mucosa clear 05/20/2013 None Full Exam - General 1994 Ears/Nose/Throat oral cavity/pharynx/larynx Overall: oropharyngeal mucosa clear 05/20/2013 None Full Exam - General 1994 Ears/Nose/Throat oral cavity/pharynx/larynx Overall: no masses 05/20/2013 None Full Exam - General 1994 Respiratory auscultation Overall: breath sounds clear bilaterally 05/20/2013 None Full Exam - General 1995 Respiratory respiratory effort/rhythm Overall: no retractions 05/20/2013 None Full Exam - General 1995 Respiratory respiratory effort/rhythm Overall: normal rate 05/20/2013 None Full Exam - General 1995 Cardiovascular auscultation of heart Overall: regular rate 05/20/2013 None Full Exam - General 1995 Cardiovascular auscultation of heart Overall: normal heart sounds 05/20/2013 None Full Exam - General 1994 Cardiovascular auscultation of heart Overall: no murmurs 05/20/2013 None Full Exam - General 1995 Abdomen abdominal exam Overall: no tenderness 05/20/2013 None Full Exam - General 1995 Abdomen abdominal exam Overall: normal bowel sounds 05/20/2013 None Full Exam - General 1995 Musculoskeletal spine, ribs and pelvis Overall: ribs benign 05/20/2013 None Full Exam - General 1994 Musculoskeletal spine, ribs and pelvis Overall: spine benign 05/20/2013 None Full Exam - General 1994 Musculoskeletal spine, ribs and pelvis Overall: good posture 05/20/2013 None Full Exam - General 1994 Musculoskeletal head and neck Overall: head atraumatic 05/20/2013 None Full Exam - General 1994 Musculoskeletal head and neck Overall: cervical spine benign 05/20/2013 None Full Exam - General 1994 Neurologic deep tendon reflexes Overall: deep tendon reflexes intact 05/20/2013 None Full Exam - General 1994 Neurologic gait Overall: no ataxia, no unsteadiness 05/20/2013 None Full Exam - General 1994 Psychiatric orientation/consciousness Overall: oriented to person, place and time 05/20/2013 None Full Exam - General 1994 Psychiatric mood and affect Overall: normal mood and affect 05/20/2013 None Full Exam - General 1994 Constitutional general appearance Overall: well developed 04/09/2013 None Full Exam - General 1994 Constitutional general appearance Overall: in no acute distress 04/09/2013 None Full Exam - General 1994 Constitutional general appearance Overall: well nourished 04/09/2013 None Full Exam - General 1994 Eyes pupils and irises Overall: pupils equal, round, reactive to light and accomodation 04/09/2013 None Full Exam - General 1994 Ears/Nose/Throat otoscopic exam Overall: external auditory canals clear 04/09/2013 None Full Exam - General 1994 Ears/Nose/Throat otoscopic exam Overall: tympanic membranes clear 04/09/2013 None Full Exam - General 1994 Ears/Nose/Throat oral cavity/pharynx/larynx Overall: oral mucosa clear 04/09/2013 None Full Exam - General 1995 Ears/Nose/Throat oral cavity/pharynx/larynx Overall: oropharyngeal mucosa clear 04/09/2013 None Full Exam - General 1995 Ears/Nose/Throat oral cavity/pharynx/larynx Overall: no masses 04/09/2013 None Full Exam - General 1994 Respiratory auscultation Overall: breath sounds clear bilaterally 04/09/2013 None Full Exam - General 1994 Respiratory respiratory effort/rhythm Overall: no retractions 04/09/2013 None Full Exam - General 1994 Respiratory respiratory effort/rhythm Overall: normal rate 04/09/2013 None Full Exam - General 1994 Cardiovascular auscultation of heart Overall: regular rate 04/09/2013 None Full Exam - General 1994 Cardiovascular auscultation of heart Overall: normal heart sounds 04/09/2013 None Full Exam - General 1994 Cardiovascular auscultation of heart Overall: no murmurs 04/09/2013 None Full Exam - General 1994 Abdomen abdominal exam Overall: no tenderness 04/09/2013 None Full Exam - General 1994 Abdomen abdominal exam Overall: normal bowel sounds 04/09/2013 None Full Exam - General 1994 Musculoskeletal spine, ribs and pelvis Overall: ribs benign 04/09/2013 None Full Exam - General 1994 Musculoskeletal spine, ribs and pelvis Overall: spine benign 04/09/2013 None Full Exam - General 1994 Musculoskeletal spine, ribs and pelvis Overall: good posture 04/09/2013 None Full Exam - General 1994 Musculoskeletal head and neck Overall: head atraumatic 04/09/2013 None Full Exam - General 1994 Musculoskeletal head and neck Overall: cervical spine benign 04/09/2013 None Full Exam - General 1994 Neurologic deep tendon reflexes Overall: deep tendon reflexes intact 04/09/2013 None Full Exam - General 1994 Neurologic gait Overall: no ataxia, no unsteadiness 04/09/2013 None Full Exam - General 1994 Psychiatric orientation/consciousness Overall: oriented to person, place and time 04/09/2013 None Full Exam - General 1994 Psychiatric mood and affect Overall: normal mood and affect 04/09/2013 None Full Exam - General 1994 Constitutional general appearance Overall: well developed 01/26/2013 None Full Exam - General 1994 Constitutional general appearance Overall: in no acute distress 01/26/2013 None Full Exam - General 1994 Constitutional general appearance Overall: well nourished 01/26/2013 None Full Exam - General 1994 Eyes pupils and irises Overall: pupils equal, round, reactive to light and accomodation 01/26/2013 None Full Exam - General 1995 Ears/Nose/Throat otoscopic exam Overall: tympanic membranes clear 01/26/2013 None Full Exam - General 1995 Ears/Nose/Throat oral cavity/pharynx/larynx Overall: oral mucosa clear 01/26/2013 None Full Exam - General 1995 Ears/Nose/Throat oral cavity/pharynx/larynx Overall: oropharyngeal mucosa clear 01/26/2013 None Full Exam - General 1995 Ears/Nose/Throat oral cavity/pharynx/larynx Overall: no masses 01/26/2013 None Full Exam - General 1994 Respiratory auscultation Overall: breath sounds clear bilaterally 01/26/2013 None Full Exam - General 1994 Respiratory respiratory effort/rhythm Overall: no retractions 01/26/2013 None Full Exam - General 1994 Respiratory respiratory effort/rhythm Overall: normal rate 01/26/2013 None Full Exam - General 1994 Cardiovascular auscultation of heart Overall: regular rate 01/26/2013 None Full Exam - General 1994 Cardiovascular auscultation of heart Overall: normal heart sounds 01/26/2013 None Full Exam - General 1994 Cardiovascular auscultation of heart Overall: no murmurs 01/26/2013 None Full Exam - General 1994 Abdomen abdominal exam Overall: no tenderness 01/26/2013 None Full Exam - General 1994 Abdomen abdominal exam Overall: normal bowel sounds 01/26/2013 None Full Exam - General 1994 Musculoskeletal spine, ribs and pelvis Overall: ribs benign 01/26/2013 None Full Exam - General 1994 Musculoskeletal spine, ribs and pelvis Overall: spine benign 01/26/2013 None Full Exam - General 1994 Musculoskeletal spine, ribs and pelvis Overall: good posture 01/26/2013 None Full Exam - General 1994 Musculoskeletal head and neck Overall: head atraumatic 01/26/2013 None Full Exam - General 1994 Musculoskeletal head and neck Overall: cervical spine benign 01/26/2013 None Full Exam - General 1994 Neurologic deep tendon reflexes Overall: deep tendon reflexes intact 01/26/2013 None Full Exam - General 1994 Neurologic gait Overall: no ataxia, no unsteadiness 01/26/2013 None Full Exam - General 1994 Psychiatric orientation/consciousness Overall: oriented to person, place and time 01/26/2013 None Full Exam - General 1994 Psychiatric mood and affect Overall: normal mood and affect 01/26/2013 None Full Exam - General 1995 Ears/Nose/Throat otoscopic exam External auditory canal: partial cerumen occlusion 01/26/2013 None Full Exam - General 1995 Musculoskeletal spine, ribs and pelvis Overall: spine benign 12/23/2012 None Full Exam - General 1995 Musculoskeletal spine, ribs and pelvis Overall: good posture 12/23/2012 None Full Exam - General 1995 Musculoskeletal head and neck Overall: head atraumatic 12/23/2012 None Full Exam - General 1994 Musculoskeletal head and neck Overall: cervical spine benign 12/23/2012 None Full Exam - General 1995 Neurologic deep tendon reflexes Overall: deep tendon reflexes intact 12/23/2012 None Full Exam - General 1994 Neurologic gait Overall: no ataxia, no unsteadiness 12/23/2012 None Full Exam - General 1994 Psychiatric orientation/consciousness Overall: oriented to person, place and time 12/23/2012 None Full Exam - General 1994 Psychiatric mood and affect Overall: normal mood and affect 12/23/2012 None Full Exam - General 1994 Ears/Nose/Throat otoscopic exam Overall: external auditory canals clear 12/23/2012 None Full Exam - General 1995 Ears/Nose/Throat otoscopic exam Overall: tympanic membranes clear 12/23/2012 None Full Exam - General 1995 Ears/Nose/Throat oral cavity/pharynx/larynx Overall: oral mucosa clear 12/23/2012 None Full Exam - General 1995 Ears/Nose/Throat oral cavity/pharynx/larynx Overall: oropharyngeal mucosa clear 12/23/2012 None Full Exam - General 1995 Ears/Nose/Throat oral cavity/pharynx/larynx Overall: no masses 12/23/2012 None Full Exam - General 1994 Respiratory auscultation Overall: breath sounds clear bilaterally 12/23/2012 None Full Exam - General 1994 Respiratory respiratory effort/rhythm Overall: no retractions 12/23/2012 None Full Exam - General 1994 Respiratory respiratory effort/rhythm Overall: normal rate 12/23/2012 None Full Exam - General 1994 Cardiovascular auscultation of heart Overall: regular rate 12/23/2012 None Full Exam - General 1994 Cardiovascular auscultation of heart Overall: normal heart sounds 12/23/2012 None Full Exam - General 1994 Cardiovascular auscultation of heart Overall: no murmurs 12/23/2012 None Full Exam - General 1994 Abdomen abdominal exam Overall: no tenderness 12/23/2012 None Full Exam - General 1994 Abdomen abdominal exam Overall: normal bowel sounds 12/23/2012 None Full Exam - General 1994 Musculoskeletal spine, ribs and pelvis Overall: ribs benign 12/23/2012 None Full Exam - General 1994 Constitutional general appearance Overall: well developed 12/23/2012 None Full Exam - General 1994 Constitutional general appearance Overall: in no acute distress 12/23/2012 None Full Exam - General 1994 Constitutional general appearance Overall: well nourished 12/23/2012 None Full Exam - General 1994 Eyes pupils and irises Overall: pupils equal, round, reactive to light and accomodation 12/23/2012 None Full Exam - General 1994 Constitutional general appearance Overall: well developed 12/15/2012 None Full Exam - General 1994 Constitutional general appearance Overall: in no acute distress 12/15/2012 None Full Exam - General 1994 Constitutional general appearance Overall: well nourished 12/15/2012 None Full Exam - General 1994 Eyes pupils and irises Overall: pupils equal, round, reactive to light and accomodation 12/15/2012 None Full Exam - General 1994 Ears/Nose/Throat otoscopic exam Overall: external auditory canals clear 12/15/2012 None Full Exam - General 1995 Ears/Nose/Throat otoscopic exam Tympanic membrane: air-fluid level 12/15/2012 None Full Exam - General 1994 Ears/Nose/Throat oral cavity/pharynx/larynx Overall: oral mucosa clear 12/15/2012 None Full Exam - General 1995 Ears/Nose/Throat oral cavity/pharynx/larynx Overall: oropharyngeal mucosa clear 12/15/2012 None Full Exam - General 1994 Ears/Nose/Throat oral cavity/pharynx/larynx Overall: no masses 12/15/2012 None Full Exam - General 1994 Respiratory auscultation Upper lung field: a normal exam 12/15/2012 None Full Exam - General 1994 Respiratory auscultation Lower lung field: crackles 12/15/2012 None Full Exam - General 1994 Respiratory respiratory effort/rhythm Overall: no retractions 12/15/2012 None Full Exam - General 1994 Respiratory respiratory effort/rhythm Overall: normal rate 12/15/2012 None Full Exam - General 1994 Cardiovascular extremities Overall: no clubbing 12/15/2012 None Full Exam - General 1994 Cardiovascular auscultation of heart Overall: regular rate 12/15/2012 None Full Exam - General 1994 Cardiovascular auscultation of heart Overall: normal heart sounds 12/15/2012 None Full Exam - General 1995 Cardiovascular auscultation of heart Overall: no murmurs 12/15/2012 None Full Exam - General 1995 Lymphatic neck nodes Overall: shotty lymphadenopathy 12/15/2012 None Full Exam - General 1995 Musculoskeletal head and neck Cervical Spine: tender 12/15/2012 bilaterally Full Exam - General 1995 Integument inspection of skin Overall: no rash, lesions 12/15/2012 None Full Exam - General 1995 Psychiatric orientation/consciousness Overall: oriented to person, place and time 12/15/2012 None Full Exam - General 1995 Psychiatric mood and affect Overall: normal mood and affect 12/15/2012 None Full Exam - General 1995 Psychiatric mood and affect Mood: happy 12/15/2012 None Full Exam - General 1995 Constitutional general appearance Overall: well developed 10/22/2012 None Full Exam - General 1995 Constitutional general appearance Overall: in no acute distress 10/22/2012 None Full Exam - General 1995 Constitutional general appearance Overall: well nourished 10/22/2012 None Full Exam - General 1994 Eyes pupils and irises Overall: pupils equal, round, reactive to light and accomodation 10/22/2012 None Full Exam - General 1995 Ears/Nose/Throat otoscopic exam Overall: external auditory canals clear 10/22/2012 None Full Exam - General 1995 Ears/Nose/Throat otoscopic exam Overall: tympanic membranes clear 10/22/2012 None Full Exam - General 1995 Ears/Nose/Throat oral cavity/pharynx/larynx Overall: oral mucosa clear 10/22/2012 None Full Exam - General 1995 Ears/Nose/Throat oral cavity/pharynx/larynx Overall: oropharyngeal mucosa clear 10/22/2012 None Full Exam - General 1995 Ears/Nose/Throat oral cavity/pharynx/larynx Overall: no masses 10/22/2012 None Full Exam - General 1994 Respiratory auscultation Overall: breath sounds clear bilaterally 10/22/2012 None Full Exam - General 1994 Respiratory respiratory effort/rhythm Overall: no retractions 10/22/2012 None Full Exam - General 1995 Respiratory respiratory effort/rhythm Overall: normal rate 10/22/2012 None Full Exam - General 1994 Cardiovascular auscultation of heart Overall: regular rate 10/22/2012 None Full Exam - General 1994 Cardiovascular auscultation of heart Overall: normal heart sounds 10/22/2012 None Full Exam - General 1994 Cardiovascular auscultation of heart Overall: no murmurs 10/22/2012 None Full Exam - General 1995 Abdomen abdominal exam Overall: no tenderness 10/22/2012 None Full Exam - General 1995 Abdomen abdominal exam Overall: normal bowel sounds 10/22/2012 None Full Exam - General 1995 Musculoskeletal spine, ribs and pelvis Overall: ribs benign 10/22/2012 None Full Exam - General 1995 Musculoskeletal spine, ribs and pelvis Overall: spine benign 10/22/2012 None Full Exam - General 1995 Musculoskeletal spine, ribs and pelvis Overall: good posture 10/22/2012 None Full Exam - General 1995 Musculoskeletal head and neck Overall: head atraumatic 10/22/2012 None Full Exam - General 1995 Musculoskeletal head and neck Overall: cervical spine benign 10/22/2012 None Full Exam - General 1995 Neurologic deep tendon reflexes Overall: deep tendon reflexes intact 10/22/2012 None Full Exam - General 1994 Neurologic gait Overall: no ataxia, no unsteadiness 10/22/2012 None Full Exam - General 1994 Psychiatric orientation/consciousness Overall: oriented to person, place and time 10/22/2012 None Full Exam - General 1994 Psychiatric mood and affect Overall: normal mood and affect 10/22/2012 None Full Exam - General 1994 Constitutional general appearance Overall: well developed 08/21/2012 None Full Exam - General 1994 Constitutional general appearance Overall: in no acute distress 08/21/2012 None Full Exam - General 1994 Constitutional general appearance Overall: well nourished 08/21/2012 None Full Exam - General 1994 Eyes pupils and irises Overall: pupils equal, round, reactive to light and accomodation 08/21/2012 None Full Exam - General 1994 Ears/Nose/Throat otoscopic exam Overall: external auditory canals clear 08/21/2012 None Full Exam - General 1995 Ears/Nose/Throat otoscopic exam Overall: tympanic membranes clear 08/21/2012 None Full Exam - General 1994 Ears/Nose/Throat oral cavity/pharynx/larynx Overall: oral mucosa clear 08/21/2012 None Full Exam - General 1995 Ears/Nose/Throat oral cavity/pharynx/larynx Overall: oropharyngeal mucosa clear 08/21/2012 None Full Exam - General 1995 Ears/Nose/Throat oral cavity/pharynx/larynx Overall: no masses 08/21/2012 None Full Exam - General 1994 Respiratory auscultation Overall: breath sounds clear bilaterally 08/21/2012 None Full Exam - General 1995 Respiratory respiratory effort/rhythm Overall: no retractions 08/21/2012 None Full Exam - General 1995 Respiratory respiratory effort/rhythm Overall: normal rate 08/21/2012 None Full Exam - General 1995 Cardiovascular auscultation of heart Overall: regular rate 08/21/2012 None Full Exam - General 1995 Cardiovascular auscultation of heart Overall: normal heart sounds 08/21/2012 None Full Exam - General 1994 Cardiovascular auscultation of heart Overall: no murmurs 08/21/2012 None Full Exam - General 1995 Abdomen abdominal exam Overall: no tenderness 08/21/2012 None Full Exam - General 1995 Abdomen abdominal exam Overall: normal bowel sounds 08/21/2012 None Full Exam - General 1995 Musculoskeletal spine, ribs and pelvis Overall: ribs benign 08/21/2012 None Full Exam - General 1995 Musculoskeletal spine, ribs and pelvis Overall: spine benign 08/21/2012 None Full Exam - General 1995 Musculoskeletal spine, ribs and pelvis Overall: good posture 08/21/2012 None Full Exam - General 1994 Musculoskeletal head and neck Overall: head atraumatic 08/21/2012 None Full Exam - General 1994 Musculoskeletal head and neck Overall: cervical spine benign 08/21/2012 None Full Exam - General 1994 Neurologic deep tendon reflexes Overall: deep tendon reflexes intact 08/21/2012 None Full Exam - General 1994 Neurologic gait Overall: no ataxia, no unsteadiness 08/21/2012 None Full Exam - General 1994 Psychiatric orientation/consciousness Overall: oriented to person, place and time 08/21/2012 None Full Exam - General 1994 Psychiatric mood and affect Overall: normal mood and affect 08/21/2012 None Full Exam - General 1994 Constitutional general appearance Overall: well nourished 07/17/2012 None Full Exam - General 1994 Constitutional general appearance Overall: well developed 07/17/2012 None Full Exam - General 1994 Constitutional general appearance Overall: in no acute distress 07/17/2012 None Full Exam - General 1994 Eyes pupils and irises Overall: pupils equal, round, reactive to light and accomodation 07/17/2012 None Full Exam - General 1994 Ears/Nose/Throat otoscopic exam Overall: external auditory canals clear 07/17/2012 None Full Exam - General 1994 Ears/Nose/Throat otoscopic exam Overall: tympanic membranes clear 07/17/2012 None Full Exam - General 1994 Ears/Nose/Throat oral cavity/pharynx/larynx Overall: oral mucosa clear 07/17/2012 None Full Exam - General 1994 Ears/Nose/Throat oral cavity/pharynx/larynx Overall: oropharyngeal mucosa clear 07/17/2012 None Full Exam - General 1994 Ears/Nose/Throat oral cavity/pharynx/larynx Overall: no masses 07/17/2012 None Full Exam - General 1994 Respiratory auscultation Overall: breath sounds clear bilaterally 07/17/2012 None Full Exam - General 1994 Neurologic gait Overall: no ataxia, no unsteadiness 07/17/2012 None Full Exam - General 1994 Psychiatric orientation/consciousness Overall: oriented to person, place and time 07/17/2012 None Full Exam - General 1994 Psychiatric mood and affect Overall: normal mood and affect 07/17/2012 None Full Exam - General 1994 Respiratory respiratory effort/rhythm Overall: no retractions 07/17/2012 None Full Exam - General 1994 Respiratory respiratory effort/rhythm Overall: normal rate 07/17/2012 None Full Exam - General 1994 Cardiovascular auscultation of heart Overall: regular rate 07/17/2012 None Full Exam - General 1994 Cardiovascular auscultation of heart Overall: normal heart sounds 07/17/2012 None Full Exam - General 1994 Cardiovascular auscultation of heart Overall: no murmurs 07/17/2012 None Full Exam - General 1994 Abdomen abdominal exam Overall: no tenderness 07/17/2012 None Full Exam - General 1994 Abdomen abdominal exam Overall: normal bowel sounds 07/17/2012 None Full Exam - General 1994 Musculoskeletal head and neck Overall: head atraumatic 07/17/2012 None Full Exam - General 1994 Musculoskeletal head and neck Overall: cervical spine benign 07/17/2012 None Full Exam - General 1994 Musculoskeletal spine, ribs and pelvis Overall: good posture 07/17/2012 None Full Exam - General 1994 Musculoskeletal spine, ribs and pelvis Overall: ribs benign 07/17/2012 None Full Exam - General 1994 Musculoskeletal spine, ribs and pelvis Overall: spine benign 07/17/2012 None Full Exam - General 1994 Neurologic deep tendon reflexes Overall: deep tendon reflexes intact 07/17/2012 None Full Exam - General 1994 Constitutional general appearance Overall: well developed 07/08/2012 None Full Exam - General 1994 Constitutional general appearance Overall: in no acute distress 07/08/2012 None Full Exam - General 1994 Constitutional general appearance Overall: well nourished 07/08/2012 None Full Exam - General 1994 Eyes pupils and irises Overall: pupils equal, round, reactive to light and accomodation 07/08/2012 None Full Exam - General 1994 Ears/Nose/Throat otoscopic exam Overall: external auditory canals clear 07/08/2012 None Full Exam - General 1994 Ears/Nose/Throat otoscopic exam Overall: tympanic membranes clear 07/08/2012 None Full Exam - General 1994 Ears/Nose/Throat oral cavity/pharynx/larynx Overall: oral mucosa clear 07/08/2012 None Full Exam - General 1994 Ears/Nose/Throat oral cavity/pharynx/larynx Overall: oropharyngeal mucosa clear 07/08/2012 None Full Exam - General 1994 Ears/Nose/Throat oral cavity/pharynx/larynx Overall: no masses 07/08/2012 None Full Exam - General 1994 Respiratory auscultation Overall: breath sounds clear bilaterally 07/08/2012 None Full Exam - General 1994 Respiratory respiratory effort/rhythm Overall: no retractions 07/08/2012 None Full Exam - General 1994 Respiratory respiratory effort/rhythm Overall: normal rate 07/08/2012 None Full Exam - General 1994 Cardiovascular auscultation of heart Overall: regular rate 07/08/2012 None Full Exam - General 1994 Cardiovascular auscultation of heart Overall: normal heart sounds 07/08/2012 None Full Exam - General 1994 Cardiovascular auscultation of heart Overall: no murmurs 07/08/2012 None Full Exam - General 1994 Abdomen abdominal exam Overall: no tenderness 07/08/2012 None Full Exam - General 1994 Abdomen abdominal exam Overall: normal bowel sounds 07/08/2012 None Full Exam - General 1994 Musculoskeletal spine, ribs and pelvis Overall: ribs benign 07/08/2012 None Full Exam - General 1994 Musculoskeletal spine, ribs and pelvis Overall: spine benign 07/08/2012 None Full Exam - General 1994 Musculoskeletal spine, ribs and pelvis Overall: good posture 07/08/2012 None Full Exam - General 1994 Musculoskeletal head and neck Overall: head atraumatic 07/08/2012 None Full Exam - General 1994 Musculoskeletal head and neck Overall: cervical spine benign 07/08/2012 None Full Exam - General 1994 Neurologic deep tendon reflexes Overall: deep tendon reflexes intact 07/08/2012 None Full Exam - General 1994 Neurologic gait Overall: no ataxia, no unsteadiness 07/08/2012 None Full Exam - General 1994 Psychiatric orientation/consciousness Overall: oriented to person, place and time 07/08/2012 None Full Exam - General 1994 Psychiatric mood and affect Overall: normal mood and affect 07/08/2012 None Full Exam - General 1994 Constitutional general appearance Overall: well nourished 06/09/2012 None Full Exam - General 1994 Constitutional general appearance Overall: well developed 06/09/2012 None Full Exam - General 1994 Constitutional general appearance Overall: in no acute distress 06/09/2012 None Full Exam - General 1994 Eyes pupils and irises Overall: pupils equal, round, reactive to light and accomodation 06/09/2012 None Full Exam - General 1994 Ears/Nose/Throat otoscopic exam Overall: external auditory canals clear 06/09/2012 None Full Exam - General 1994 Ears/Nose/Throat otoscopic exam Overall: tympanic membranes clear 06/09/2012 None Full Exam - General 1994 Ears/Nose/Throat oral cavity/pharynx/larynx Overall: oral mucosa clear 06/09/2012 None Full Exam - General 1994 Ears/Nose/Throat oral cavity/pharynx/larynx Overall: oropharyngeal mucosa clear 06/09/2012 None Full Exam - General 1994 Ears/Nose/Throat oral cavity/pharynx/larynx Overall: no masses 06/09/2012 None Full Exam - General 1994 Respiratory auscultation Overall: breath sounds clear bilaterally 06/09/2012 None Full Exam - General 1994 Respiratory respiratory effort/rhythm Overall: no retractions 06/09/2012 None Full Exam - General 1994 Respiratory respiratory effort/rhythm Overall: normal rate 06/09/2012 None Full Exam - General 1994 Cardiovascular auscultation of heart Overall: regular rate 06/09/2012 None Full Exam - General 1994 Cardiovascular auscultation of heart Overall: normal heart sounds 06/09/2012 None Full Exam - General 1994 Cardiovascular auscultation of heart Overall: no murmurs 06/09/2012 None Full Exam - General 1994 Abdomen abdominal exam Overall: no tenderness 06/09/2012 None Full Exam - General 1994 Abdomen abdominal exam Overall: normal bowel sounds 06/09/2012 None Full Exam - General 1994 Musculoskeletal head and neck Overall: head atraumatic 06/09/2012 None Full Exam - General 1994 Musculoskeletal head and neck Overall: cervical spine benign 06/09/2012 None Full Exam - General 1994 Musculoskeletal spine, ribs and pelvis Overall: good posture 06/09/2012 None Full Exam - General 1994 Musculoskeletal spine, ribs and pelvis Overall: ribs benign 06/09/2012 None Full Exam - General 1995 Musculoskeletal spine, ribs and pelvis Overall: spine benign 06/09/2012 None Full Exam - General 1995 Neurologic deep tendon reflexes Overall: deep tendon reflexes intact 06/09/2012 None Full Exam - General 1995 Neurologic gait Overall: no ataxia, no unsteadiness 06/09/2012 None Full Exam - General 1995 Psychiatric orientation/consciousness Overall: oriented to person, place and time 06/09/2012 None Full Exam - General 1994 Psychiatric mood and affect Overall: normal mood and affect 06/09/2012 None Full Exam - General 1995 Constitutional general appearance Overall: well nourished 02/12/2012 None Full Exam - General 1995 Constitutional general appearance Overall: well developed 02/12/2012 None Full Exam - General 1994 Constitutional general appearance Overall: in no acute distress 02/12/2012 None Full Exam - General 1994 Eyes pupils and irises Overall: pupils equal, round, reactive to light and accomodation 02/12/2012 None Full Exam - General 1995 Ears/Nose/Throat oral cavity/pharynx/larynx Overall: oral mucosa clear 02/12/2012 None Full Exam - General 1995 Ears/Nose/Throat oral cavity/pharynx/larynx Overall: oropharyngeal mucosa clear 02/12/2012 None Full Exam - General 1995 Ears/Nose/Throat oral cavity/pharynx/larynx Overall: no masses 02/12/2012 None Full Exam - General 1994 Respiratory respiratory effort/rhythm Overall: no retractions 02/12/2012 None Full Exam - General 1994 Respiratory respiratory effort/rhythm Overall: normal rate 02/12/2012 None Full Exam - General 1994 Cardiovascular auscultation of heart Overall: regular rate 02/12/2012 None Full Exam - General 1994 Cardiovascular auscultation of heart Overall: normal heart sounds 02/12/2012 None Full Exam - General 1994 Cardiovascular auscultation of heart Overall: no murmurs 02/12/2012 None Full Exam - General 1994 Cardiovascular extremities Overall: no clubbing 02/12/2012 None Full Exam - General 1994 Lymphatic neck nodes Overall: shotty lymphadenopathy 02/12/2012 None Full Exam - General 1994 Musculoskeletal head and neck Cervical Spine: tender 02/12/2012 bilaterally Full Exam - General 1994 Psychiatric orientation/consciousness Overall: oriented to person, place and time 02/12/2012 None Full Exam - General 1994 Psychiatric mood and affect Overall: normal mood and affect 02/12/2012 None Full Exam - General 1994 Ears/Nose/Throat otoscopic exam Overall: external auditory canals clear 02/12/2012 None Full Exam - General 1994 Ears/Nose/Throat otoscopic exam Tympanic membrane: air-fluid level 02/12/2012 None Full Exam - General 1994 Respiratory auscultation Upper lung field: a normal exam 02/12/2012 None Full Exam - General 1994 Respiratory auscultation Lower lung field: crackles 02/12/2012 None Full Exam - General 1994 Integument inspection of skin Overall: no rash, lesions 02/12/2012 None Full Exam - General 1994 Psychiatric mood and affect Mood: happy 02/12/2012 None Full Exam - General 1994 Abdomen abdominal exam Overall: normal bowel sounds 02/05/2012 None Full Exam - General 1994 Abdomen stool sample obtained Overall: normal appearance 02/05/2012 None Full Exam - General 1994 Abdomen stool sample obtained Overall: occult blood negative 02/05/2012 None Full Exam - General 1994 Neurologic gait Overall: no ataxia, no unsteadiness 02/05/2012 None Full Exam - General 1994 Psychiatric orientation/consciousness Overall: oriented to person, place and time 02/05/2012 None Full Exam - General 1994 Psychiatric mood and affect Overall: normal mood and affect 02/05/2012 None Full Exam - General 1994 Abdomen rectal exam Palpation: tenderness 02/05/2012 None Full Exam - General 1994 Abdomen rectal exam Inspection: inflammation 02/05/2012 None Full Exam - General 1994 Abdomen rectal exam Inspection: hemorrhoid 02/05/2012 unable to see a band around any of the h emorroids, Full Exam - General 1994 Ears/Nose/Throat otoscopic exam Tympanic membrane: bulging 02/05/2012 None Full Exam - General 1994 Constitutional general appearance Overall: in no acute distress 02/05/2012 None Full Exam - General 1994 Eyes pupils and irises Overall: pupils equal, round, reactive to light and accomodation 02/05/2012 None Full Exam - General 1994 Ears/Nose/Throat otoscopic exam Overall: external auditory canals clear 02/05/2012 None Full Exam - General 1994 Ears/Nose/Throat oral cavity/pharynx/larynx Overall: oral mucosa clear 02/05/2012 None Full Exam - General 1994 Ears/Nose/Throat oral cavity/pharynx/larynx Overall: oropharyngeal mucosa clear 02/05/2012 None Full Exam - General 1994 Ears/Nose/Throat oral cavity/pharynx/larynx Overall: no masses 02/05/2012 None Full Exam - General 1994 Respiratory auscultation Overall: breath sounds clear bilaterally 02/05/2012 None Full Exam - General 1994 Respiratory respiratory effort/rhythm Overall: no retractions 02/05/2012 None Full Exam - General 1994 Respiratory respiratory effort/rhythm Overall: normal rate 02/05/2012 None Full Exam - General 1994 Cardiovascular auscultation of heart Overall: regular rate 02/05/2012 None Full Exam - General 1994 Cardiovascular auscultation of heart Overall: normal heart sounds 02/05/2012 None Full Exam - General 1994 Cardiovascular auscultation of heart Overall: no murmurs 02/05/2012 None Full Exam - General 1994 Abdomen abdominal exam Overall: no tenderness 02/05/2012 None Full Exam - General 1994 Constitutional general appearance Overall: well nourished 02/05/2012 None Full Exam - General 1994 Constitutional general appearance Overall: well developed 02/05/2012 None Full Exam - Cardiology Psychiatric orientation/consciousness Overall: oriented to person, place and time 11/14/2011 None Full Exam - Cardiology Psychiatric mood and affect Overall: normal mood and affect 11/14/2011 None Full Exam - Cardiology Eyes conjunctiva/eyelids Overall: conjunctiva clear 11/14/2011 None Full Exam - Cardiology Constitutional general appearance Overall: well nourished 11/14/2011 None Full Exam - Cardiology Constitutional general appearance Overall: well developed 11/14/2011 None Full Exam - Cardiology Constitutional general appearance Overall: in no acute distress 11/14/2011 None Full Exam - Cardiology Constitutional general appearance Nourishment: well nourished 11/14/2011 None Full Exam - Cardiology Ears/Nose/Throat teeth/gingiva/palate Overall: normal dentition 11/14/2011 None Full Exam - Cardiology Ears/Nose/Throat oral mucosa Oral mucosa: moist 11/14/2011 None Full Exam - Cardiology Respiratory respiratory effort/rhythm Overall: no retractions 11/14/2011 None Full Exam - Cardiology Respiratory auscultation Overall: breath sounds clear bilaterally 11/14/2011 None Full Exam - Cardiology Cardiovascular auscultation of heart Overall: regular rate 11/14/2011 None Full Exam - Cardiology Cardiovascular auscultation of heart Overall: normal heart sounds 11/14/2011 None Full Exam - Cardiology Cardiovascular extremities Overall: no clubbing 11/14/2011 None Full Exam - Cardiology Lymphatic neck nodes Overall: shotty lymphadenopathy 11/14/2011 None Full Exam - Cardiology Musculoskeletal gait and station Overall: normal gait 11/14/2011 None Full Exam - General 1995 Constitutional general appearance Overall: well nourished 10/08/2011 None Full Exam - General 1995 Constitutional general appearance Overall: well developed 10/08/2011 None Full Exam - General 1994 Constitutional general appearance Overall: in no acute distress 10/08/2011 None Full Exam - General 1995 Eyes pupils and irises Overall: pupils equal, round, reactive to light and accomodation 10/08/2011 None Full Exam - General 1995 Ears/Nose/Throat otoscopic exam Overall: external auditory canals clear 10/08/2011 None Full Exam - General 1995 Ears/Nose/Throat otoscopic exam Tympanic membrane: air-fluid level 10/08/2011 None Full Exam - General 1994 Respiratory auscultation Lower lung field: crackles 10/08/2011 None Full Exam - General 1994 Respiratory auscultation Upper lung field: a normal exam 10/08/2011 None Full Exam - General 1994 Respiratory respiratory effort/rhythm Overall: no retractions 10/08/2011 None Full Exam - General 1995 Respiratory respiratory effort/rhythm Overall: normal rate 10/08/2011 None Full Exam - General 1994 Cardiovascular auscultation of heart Overall: regular rate 10/08/2011 None Full Exam - General 1994 Cardiovascular auscultation of heart Overall: normal heart sounds 10/08/2011 None Full Exam - General 1994 Abdomen abdominal exam Overall: no tenderness 10/08/2011 None Full Exam - General 1994 Abdomen abdominal exam Overall: normal bowel sounds 10/08/2011 None Full Exam - General 1994 Lymphatic neck nodes Overall: shotty lymphadenopathy 10/08/2011 None Full Exam - General 1994 Integument inspection of skin Overall: no rash, lesions 10/08/2011 None Full Exam - General 1994 Psychiatric orientation/consciousness Overall: oriented to person, place and time 10/08/2011 None Full Exam - General 1994 Psychiatric mood and affect Mood: happy 10/08/2011 None Full Exam - General 1994 Psychiatric mood and affect Overall: normal mood and affect 10/08/2011 None Full Exam - General 1994 Constitutional general appearance Overall: well nourished 08/28/2011 None Full Exam - General 1994 Constitutional general appearance Overall: well developed 08/28/2011 None Full Exam - General 1995 Constitutional general appearance Overall: in no acute distress 08/28/2011 None Full Exam - General 1995 Eyes pupils and irises Overall: pupils equal, round, reactive to light and accomodation 08/28/2011 None Full Exam - General 1995 Ears/Nose/Throat otoscopic exam External auditory canal: complete cerumen impaction 08/28/2011 None Full Exam - General 1995 Ears/Nose/Throat otoscopic exam Tympanic membrane: not visualized 08/28/2011 due to cerumen impaction Full Exam - General 1995 Ears/Nose/Throat oral cavity/pharynx/larynx Overall: oral mucosa clear 08/28/2011 None Full Exam - General 1995 Ears/Nose/Throat oral cavity/pharynx/larynx Overall: oropharyngeal mucosa clear 08/28/2011 None Full Exam - General 1995 Ears/Nose/Throat oral cavity/pharynx/larynx Overall: no masses 08/28/2011 None Full Exam - General 1994 Respiratory auscultation Overall: breath sounds clear bilaterally 08/28/2011 None Full Exam - General 1994 Respiratory respiratory effort/rhythm Overall: no retractions 08/28/2011 None Full Exam - General 1995 Respiratory respiratory effort/rhythm Overall: normal rate 08/28/2011 None Full Exam - General 1995 Cardiovascular auscultation of heart Overall: regular rate 08/28/2011 None Full Exam - General 1995 Cardiovascular auscultation of heart Overall: normal heart sounds 08/28/2011 None Full Exam - General 1995 Cardiovascular auscultation of heart Overall: no murmurs 08/28/2011 None Full Exam - General 1994 Cardiovascular extremities Overall: no clubbing 08/28/2011 None Full Exam - General 1994 Lymphatic neck nodes Overall: shotty lymphadenopathy 08/28/2011 None Full Exam - General 1994 Musculoskeletal head and neck Cervical Spine: tender 08/28/2011 bilaterally Full Exam - General 1994 Psychiatric orientation/consciousness Overall: oriented to person, place and time 08/28/2011 None Full Exam - General 1994 Psychiatric mood and affect Overall: normal mood and affect 08/28/2011 None Full Exam - General 1994 Constitutional general appearance Overall: well nourished 08/23/2011 None Full Exam - General 1995 Constitutional general appearance Overall: well developed 08/23/2011 None Full Exam - General 1994 Constitutional general appearance Overall: in no acute distress 08/23/2011 None Full Exam - General 1994 Eyes pupils and irises Overall: pupils equal, round, reactive to light and accomodation 08/23/2011 None Full Exam - General 1995 Ears/Nose/Throat otoscopic exam External auditory canal: complete cerumen impaction 08/23/2011 None Full Exam - General 1994 Psychiatric mood and affect Overall: normal mood and affect 08/23/2011 None Full Exam - General 1994 Lymphatic neck nodes Overall: shotty lymphadenopathy 08/23/2011 None Full Exam - General 1995 Ears/Nose/Throat otoscopic exam Tympanic membrane: not visualized 08/23/2011 due to cerumen impaction Full Exam - General 1995 Ears/Nose/Throat oral cavity/pharynx/larynx Overall: oropharyngeal mucosa clear 08/23/2011 None Full Exam - General 1995 Ears/Nose/Throat oral cavity/pharynx/larynx Overall: no masses 08/23/2011 None Full Exam - General 1995 Ears/Nose/Throat oral cavity/pharynx/larynx Overall: oral mucosa clear 08/23/2011 None Full Exam - General 1994 Respiratory respiratory effort/rhythm Overall: normal rate 08/23/2011 None Full Exam - General 1994 Respiratory respiratory effort/rhythm Overall: no retractions 08/23/2011 None Full Exam - General 1994 Respiratory auscultation Overall: breath sounds clear bilaterally 08/23/2011 None Full Exam - General 1994 Cardiovascular extremities Overall: no clubbing 08/23/2011 None Full Exam - General 1994 Cardiovascular auscultation of heart Overall: regular rate 08/23/2011 None Full Exam - General 1994 Cardiovascular auscultation of heart Overall: normal heart sounds 08/23/2011 None Full Exam - General 1994 Cardiovascular auscultation of heart Overall: no murmurs 08/23/2011 None Full Exam - General 1994 Musculoskeletal head and neck Cervical Spine: tender 08/23/2011 bilaterally Full Exam - General 1994 Psychiatric orientation/consciousness Overall: oriented to person, place and time 08/23/2011 None Full Exam - General 1994 Constitutional general appearance Overall: well nourished 07/24/2011 None Full Exam - General 1994 Constitutional general appearance Overall: well developed 07/24/2011 None Full Exam - General 1994 Constitutional general appearance Overall: in no acute distress 07/24/2011 None Full Exam - General 1994 Eyes pupils and irises Overall: pupils equal, round, reactive to light and accomodation 07/24/2011 None Full Exam - General 1994 Ears/Nose/Throat otoscopic exam Overall: external auditory canals clear 07/24/2011 None Full Exam - General 1994 Ears/Nose/Throat otoscopic exam Overall: tympanic membranes clear 07/24/2011 None Full Exam - General 1994 Ears/Nose/Throat oral cavity/pharynx/larynx Overall: oral mucosa clear 07/24/2011 None Full Exam - General 1994 Ears/Nose/Throat oral cavity/pharynx/larynx Overall: oropharyngeal mucosa clear 07/24/2011 None Full Exam - General 1994 Ears/Nose/Throat oral cavity/pharynx/larynx Overall: no masses 07/24/2011 None Full Exam - General 1994 Respiratory auscultation Overall: breath sounds clear bilaterally 07/24/2011 None Full Exam - General 1994 Respiratory respiratory effort/rhythm Overall: no retractions 07/24/2011 None Full Exam - General 1994 Respiratory respiratory effort/rhythm Overall: normal rate 07/24/2011 None Full Exam - General 1994 Cardiovascular auscultation of heart Overall: regular rate 07/24/2011 None Full Exam - General 1994 Cardiovascular auscultation of heart Overall: normal heart sounds 07/24/2011 None Full Exam - General 1994 Cardiovascular auscultation of heart Overall: no murmurs 07/24/2011 None Full Exam - General 1994 Abdomen abdominal exam Overall: no tenderness 07/24/2011 None Full Exam - General 1994 Abdomen abdominal exam Overall: normal bowel sounds 07/24/2011 None Full Exam - General 1994 Musculoskeletal head and neck Overall: head atraumatic 07/24/2011 None Full Exam - General 1994 Musculoskeletal head and neck Overall: cervical spine benign 07/24/2011 None Full Exam - General 1994 Musculoskeletal spine, ribs and pelvis Overall: good posture 07/24/2011 None Full Exam - General 1994 Musculoskeletal spine, ribs and pelvis Overall: ribs benign 07/24/2011 None Full Exam - General 1994 Musculoskeletal spine, ribs and pelvis Overall: spine benign 07/24/2011 None Full Exam - General 1994 Neurologic deep tendon reflexes Overall: deep tendon reflexes intact 07/24/2011 None Full Exam - General 1994 Neurologic gait Overall: no ataxia, no unsteadiness 07/24/2011 None Full Exam - General 1994 Psychiatric orientation/consciousness Overall: oriented to person, place and time 07/24/2011 None Full Exam - General 1994 Psychiatric mood and affect Overall: normal mood and affect 07/24/2011 None Full Exam - General 1994 Cardiovascular auscultation of heart Overall: no murmurs 06/19/2011 None Full Exam - General 1994 Abdomen abdominal exam Overall: no tenderness 06/19/2011 None Full Exam - General 1994 Abdomen abdominal exam Overall: normal bowel sounds 06/19/2011 None Full Exam - General 1994 Neurologic gait Overall: no ataxia, no unsteadiness 06/19/2011 None Full Exam - General 1994 Psychiatric orientation/consciousness Overall: oriented to person, place and time 06/19/2011 None Full Exam - General 1994 Psychiatric mood and affect Overall: normal mood and affect 06/19/2011 None Full Exam - General 1994 Constitutional general appearance Overall: well nourished 06/19/2011 None Full Exam - General 1994 Constitutional general appearance Overall: well developed 06/19/2011 None Full Exam - General 1994 Constitutional general appearance Overall: in no acute distress 06/19/2011 None Full Exam - General 1994 Eyes pupils and irises Overall: pupils equal, round, reactive to light and accomodation 06/19/2011 None Full Exam - General 1994 Ears/Nose/Throat otoscopic exam Overall: external auditory canals clear 06/19/2011 None Full Exam - General 1994 Ears/Nose/Throat otoscopic exam Overall: tympanic membranes clear 06/19/2011 None Full Exam - General 1994 Ears/Nose/Throat oral cavity/pharynx/larynx Overall: oral mucosa clear 06/19/2011 None Full Exam - General 1994 Genitourinary labia and vagina Overall: no lesions 06/19/2011 None Full Exam - General 1994 Genitourinary urethra Overall: no masses 06/19/2011 None Full Exam - General 1994 Abdomen stool sample obtained Overall: occult blood negative 06/19/2011 None Full Exam - General 1994 Abdomen stool sample obtained Overall: normal appearance 06/19/2011 None Full Exam - General 1994 Abdomen rectal exam Overall: good sphincter tone, no mas ses, no lesions 06/19/2011 None Full Exam - General 1994 Ears/Nose/Throat oral cavity/pharynx/larynx Overall: oropharyngeal mucosa clear 06/19/2011 None Full Exam - General 1994 Ears/Nose/Throat oral cavity/pharynx/larynx Overall: no masses 06/19/2011 None Full Exam - General 1994 Respiratory auscultation Overall: breath sounds clear bilaterally 06/19/2011 None Full Exam - General 1994 Respiratory respiratory effort/rhythm Overall: no retractions 06/19/2011 None Full Exam - General 1994 Respiratory respiratory effort/rhythm Overall: normal rate 06/19/2011 None Full Exam - General 1994 Cardiovascular auscultation of heart Overall: regular rate 06/19/2011 None Full Exam - General 1994 Cardiovascular auscultation of heart Overall: normal heart sounds 06/19/2011 None Full Exam - General 1994 Psychiatric mood and affect Overall: normal mood and affect 06/05/2011 None Full Exam - General 1994 Psychiatric orientation/consciousness Overall: oriented to person, place and time 06/05/2011 None Full Exam - General 1994 Neurologic gait Overall: no ataxia, no unsteadiness 06/05/2011 None Full Exam - General 1994 Neurologic deep tendon reflexes Overall: deep tendon reflexes intact 06/05/2011 None Full Exam - General 1994 Musculoskeletal head and neck Overall: cervical spine benign 06/05/2011 None Full Exam - General 1994 Musculoskeletal head and neck Overall: head atraumatic 06/05/2011 None Full Exam - General 1994 Musculoskeletal spine, ribs and pelvis Overall: ribs benign 06/05/2011 None Full Exam - General 1994 Musculoskeletal spine, ribs and pelvis Overall: good posture 06/05/2011 None Full Exam - General 1994 Musculoskeletal spine, ribs and pelvis Overall: spine benign 06/05/2011 None Full Exam - General 1994 Abdomen abdominal exam Overall: no tenderness 06/05/2011 None Full Exam - General 1994 Abdomen abdominal exam Overall: normal bowel sounds 06/05/2011 None Full Exam - General 1994 Constitutional general appearance Overall: well developed 06/05/2011 None Full Exam - General 1994 Constitutional general appearance Overall: in no acute distress 06/05/2011 None Full Exam - General 1994 Cardiovascular auscultation of heart Overall: regular rate 06/05/2011 None Full Exam - General 1994 Eyes pupils and irises Overall: pupils equal, round, reactive to light and accomodation 06/05/2011 None Full Exam - General 1994 Cardiovascular auscultation of heart Overall: normal heart sounds 06/05/2011 None Full Exam - General 1994 Cardiovascular auscultation of heart Overall: no murmurs 06/05/2011 None Full Exam - General 1994 Respiratory auscultation Overall: breath sounds clear bilaterally 06/05/2011 None Full Exam - General 1994 Respiratory respiratory effort/rhythm Overall: normal rate 06/05/2011 None Full Exam - General 1994 Respiratory respiratory effort/rhythm Overall: no retractions 06/05/2011 None Full Exam - General 1994 Ears/Nose/Throat otoscopic exam Overall: tympanic membranes clear 06/05/2011 None Full Exam - General 1994 Ears/Nose/Throat otoscopic exam Overall: external auditory canals clear 06/05/2011 None Full Exam - General 1994 Ears/Nose/Throat oral cavity/pharynx/larynx Overall: oropharyngeal mucosa clear 06/05/2011 None Full Exam - General 1994 Ears/Nose/Throat oral cavity/pharynx/larynx Overall: no masses 06/05/2011 None Full Exam - General 1994 Ears/Nose/Throat oral cavity/pharynx/larynx Overall: oral mucosa clear 06/05/2011 None Full Exam - General 1994 Constitutional general appearance Overall: well nourished 06/05/2011 None Procedures Procedure Codes Date THER/PROPH/DIAG INJ SC/IM CPT-4: 31408 12/23/2018 TRIAMCINOLONE ACET I [place] NOS CPT-4: J3301 12/23/2018 THER/PROPH/DIAG INJ SC/IM CPT-4: 31553 05/26/2018 TRIAMCINOLONE ACET I [place] NOS CPT-4: J3301 05/26/2018 FLU VAC NO PRSV 4 VA L 3 YRS+ CPT-4: 16433 05/02/2017 ADMIN INFLUENZA VIRU S VAC CPT-4: G0008 05/02/2017 ADMIN PNEUMOCOCCAL V ACCINE SNOMED CT: 28022749 CPT-4: G0009 05/02/2017 PNEUMOCOCCAL VACC [address]: 46118599 CPT-4: 28478 05/02/2017 FLU VAC NO PRSV 4 VA L 3 YRS+ CPT-4: 26782 05/06/2014 ADMIN PNEUMOCOCCAL V ACCINE SNOMED CT: 31805172 CPT-4: G0009 05/06/2014 PRESCRIP TRANSMIT A ERX SY CPT-4: G8553 06/12/2013 PRESCRIP TRANSMIT A ERX SY CPT-4: G8553 05/20/2013 ADMIN INFLUENZA VIRU S VAC CPT-4: G0008 04/27/2013 FLULAVAL VACC, 3 YRS & >, IM CPT-4: Q2036 04/27/2013 PRESCRIP TRANSMIT A ERX SY CPT-4: G8553 04/09/2013 PRESCRIP TRANSMIT A ERX SY CPT-4: G8553 01/26/2013 ROUTINE VENIPUNCTURE CPT-4: 96379 12/23/2012 PRESCRIP TRANSMIT A ERX SY CPT-4: G8553 06/09/2012 ROCEPHIN, PER 250 MG CPT-4: J0696 02/12/2012 TRIAMCINOLONE ACET I [place] NOS CPT-4: J3301 02/12/2012 PRESCRIP TRANSMIT A ERX SY CPT-4: G8553 02/12/2012 ROCEPHIN, PER 250 MG CPT-4: J0696 02/05/2012 URINALYSIS NONAUTO W /O SCOPE CPT-4: 05408 11/14/2011 REMOVE IMPACTED EAR WAX UNI CPT-4: 92720 08/28/2011 PRESCRIP TRANSMIT A ERX SY CPT-4: G8553 08/28/2011 ROCEPHIN, PER 250 MG CPT-4: J0696 08/23/2011 TRIAMCINOLONE ACET I [place] NOS CPT-4: J3301 08/23/2011 THER/PROPH/DIAG INJ SC/IM CPT-4: 83932 08/23/2011 PRESCRIP TRANSMIT A ERX SY CPT-4: G8553 08/23/2011 OCCULT BLOOD FECES CPT- 4: 05803 06/19/2011 URINALYSIS NONAUTO W /O SCOPE CPT-4: 07591 06/19/2011 PRESCRIP TRANSMIT A ERX SY CPT-4: G8553 06/19/2011 ADMIN INFLUENZA VIRU S VAC CPT-4: G0008 06/05/2011 FLULAVAL VACC, 3 YRS & >, IM CPT-4: Q2036 06/05/2011 Vital Signs Date Vital 02/16/2019 Blood Pressure 1: 126/60 Code: 8480-6 BMI: 28.4 Code: 41962-1 Heart Rate 1: 86 bpm Height: 5'3" SpO2: 98% Weight: 163 lbs 02/10/2019 Blood Pressure 1: 152/88 Code: 8480-6 Heart Rate 1: 82 bpm Height: SpO2: 96% Weight: 12/23/2018 Blood Pressure 1: 150/82 Code: 8480-6 Heart Rate 1: 89 bpm Height: SpO2: 95% Weight: 06/12/2018 Blood Pressure 1: 142/68 Code: 8480-6 BMI: 30.0 Code: 16837-2 Heart Rate 1: 91 bpm Height: 5'3" SpO2: 96% Weight: 172 lbs 05/26/2018 Blood Pressure 1: 142/72 Code: 8480-6 BMI: 30.0 Code: 58572-0 Heart Rate 1: 92 bpm Height: 5'3" SpO2: 96% Weight: 172 lbs 04/01/2018 Blood Pressure 1: 120/58 Code: 8480-6 BMI: 29.1 Code: 25876-0 Heart Rate 1: 83 bpm Height: 5'3" Respiratory Rate: 18 bpm SpO2: 95% Weight: 167 lbs 11/25/2017 Blood Pressure 1: 128/58 Code: 8480-6 BMI: 29.8 Code: 82168-9 Heart Rate 1: 83 bpm Height: 5'3" SpO2: 99% Weight: 171 lbs 09/18/2017 Blood Pressure 1: 140/72 Code: 8480-6 BMI: 30.3 Code: 65569-7 Heart Rate 1: 99 bpm Height: 5'3" SpO2: 97% Weight: 174 lbs 05/02/2017 Blood Pressure 1: 122/64 Code: 8480-6 BMI: 29.5 Code: 05650-6 Heart Rate 1: 81 bpm Height: 5'3" SpO2: 97% Weight: 169 lbs 03/29/2017 Blood Pressure 1: 134/68 Code: 8480-6 BMI: 30.0 Code: 85411-3 Heart Rate 1: 89 bpm Height: 5'3" SpO2: 98% Weight: 172 lbs 11/15/2016 Blood Pressure 1: 148/72 Code: 8480-6 BMI: 29.5 Code: 85044-3 Heart Rate 1: 102 bpm Height: 5'3" SpO2: 98% Weight: 169 lbs 11/06/2016 Blood Pressure 1: 140/78 Code: 8480-6 BMI: 29.8 Code: 70001-0 Heart Rate 1: 100 bpm Height: 5'3" SpO2: 97% Weight: 171 lbs 08/01/2016 Blood Pressure 1: 128/56 Code: 8480-6 BMI: 30.3 Code: 94276-2 Heart Rate 1: 88 bpm Height: 5'3" SpO2: 97% Weight: 174 lbs 07/02/2016 Blood Pressure 1: 126/62 Code: 8480-6 BMI: 31.0 Code: 99164-6 Heart Rate 1: 101 bpm Height: 5'3" SpO2: 97% Weight: 178 lbs 06/04/2016 Blood Pressure 1: 136/72 Code: 8480-6 BMI: 31.4 Code: 83556-5 Heart Rate 1: 103 bpm Height: 5'3" SpO2: 98% Weight: 180 lbs 03/26/2016 Blood Pressure 1: 134/74 Code: 8480-6 BMI: 30.7 Code: 36213-4 Heart Rate 1: 93 bpm Height: 5'3" SpO2: 98% Weight: 176 lbs 11/23/2015 Blood Pressure 1: 128/77 Code: 8480-6 BMI: 30.2 Code: 24765-5 Heart Rate 1: 74 bpm Height: 5'3" SpO2: 96% Weight: 173 lbs 10/14/2015 Blood Pressure 1: 122/72 Code: 8480-6 BMI: 30.3 Code: 53753-3 Heart Rate 1: 76 bpm Height: 5'3" SpO2: 97% Weight: 174 lbs 03/31/2015 Blood Pressure 1: 140/68 Code: 8480-6 BMI: 30.0 Code: 47223-3 Heart Rate 1: 93 bpm Height: 5'3" SpO2: 94% Weight: 172 lbs 08/31/2014 Blood Pressure 1: 122/74 Code: 8480-6 BMI: 31.2 Code: 73890-2 Heart Rate 1: 76 bpm Height: 5'3" Weight: 179 lbs 08/10/2014 Blood Pressure 1: 138/62 Code: 8480-6 BMI: 31.0 Code: 32456-0 Heart Rate 1: 80 bpm Height: 5'3" Weight: 178 lbs 05/06/2014 BMI: 31.2 Code: 18664-1 Height: 5'3" Weight: 179 lbs 04/14/2014 Blood Pressure 1: 136/68 Code: 8480-6 BMI: 31.4 Code: 75627-9 Heart Rate 1: 74 bpm Height: 5'3" Weight: 180 lbs 11/10/2013 Blood Pressure 1: 102/50 Code: 8480-6 BMI: 30.7 Code: 54968-3 Heart Rate 1: 76 bpm Height: 5'3" Weight: 176 lbs 07/14/2013 Blood Pressure 1: 136/80 Code: 8480-6 BMI: 30.3 Code: 11421-7 Heart Rate 1: 70 bpm Height: 5'3" Weight: 174 lbs 06/12/2013 Blood Pressure 1: 142/82 Code: 8480-6 BMI: 30.9 Code: 26294-4 Heart Rate 1: 72 bpm Height: 5'3" Weight: 177 lbs 05/20/2013 Blood Pressure 1: 132/70 Code: 8480-6 BMI: 31.2 Code: 73317-7 Heart Rate 1: 88 bpm Height: 5'3" Weight: 179 lbs 04/09/2013 Blood Pressure 1: 136/70 Code: 8480-6 BMI: 31.0 Code: 66636-6 Heart Rate 1: 100 bpm Height: 5'3" Weight: 178 lbs 01/26/2013 Blood Pressure 1: 118/56 Code: 8480-6 BMI: 30.7 Code: 11477-3 Heart Rate 1: 87 bpm Height: 5'3" Weight: 176 lbs 12/23/2012 Blood Pressure 1: 136/76 Code: 8480-6 Heart Rate 1: 104 bpm Respiratory Rate: 20 bpm Weight: 178 lbs 12/15/2012 Blood Pressure 1: 150/82 Code: 8480-6 Heart Rate 1: 100 bpm Temperature: 36.7 (C) / 98.1 (F) Weight: 178 lbs 10/22/2012 Blood Pressure 1: 138/82 Code: 8480-6 BMI: 30.2 Code: 66310-9 Heart Rate 1: 100 bpm Height: 5'3" Weight: 173 lbs 08/21/2012 Blood Pressure 1: 136/70 Code: 8480-6 BMI: 30.6 Code: 22993-8 Heart Rate 1: 98 bpm Height: 5'3" Weight: 175 lbs 8 oz 07/17/2012 Blood Pressure 1: 152/68 Code: 8480-6 BMI: 29.9 Code: 73037-6 Heart Rate 1: 92 bpm Height: 5'3" Weight: 171 lbs 8 oz 07/08/2012 Blood Pressure 1: 142/84 Code: 8480-6 Heart Rate 1: 93 bpm Respiratory Rate: 16 bpm Weight: 171 lbs 06/09/2012 Blood Pressure 1: 138/80 Code: 8480-6 Heart Rate 1: 92 bpm Weight: 167 lbs 02/12/2012 Blood Pressure 1: 118/70 Code: 8480-6 Heart Rate 1: 94 bpm Respiratory Rate: 20 bpm Temperature: 37.2 (C) / 98.9 (F) Weight: 02/05/2012 Blood Pressure 1: 154/88 Code: 8480-6 Heart Rate 1: 102 bpm SpO2: 96% Weight: 166 lbs 11/14/2011 Blood Pressure 1: 122/68 Code: 8480-6 BMI: 29.5 Code: 62435-0 Heart Rate 1: 96 bpm Height: 5'3" Respiratory Rate: 16 bpm Temperature: 37.0 (C ) / 98.6 (F) Weight: 169 lbs 10/08/2011 Blood Pressure 1: 100/52 Code: 8480-6 Heart Rate 1: 96 bpm Respiratory Rate: 20 bpm Temperature: 37.3 (C) / 99.2 (F) 08/28/2011 Blood Pressure 1: 122/68 Code: 8480-6 Heart Rate 1: 100 bpm Respiratory Rate: 16 bpm Weight: 174 lbs 08/23/2011 Blood Pressure 1: 120/70 Code: 8480-6 Heart Rate 1: 96 bpm Temperature: 36.9 (C) / 98.4 (F) Weight: 172 lbs 07/24/2011 Blood Pressure 1: 130/72 Code: 8480-6 BMI: 30.4 Code: 64404-8 Heart Rate 1: 92 bpm Height: 5'3" Respiratory Rate: 16 bpm Weight: 174 lbs 8 oz 06/19/2011 Blood Pressure 1: 122/70 Code: 8480-6 BMI: 30.2 Code: 60577-3 Heart Rate 1: 104 bpm Height: 5'3" Weight: 173 lbs 06/05/2011 Blood Pressure 1: 100/50 Code: 8480-6 BMI: 29.6 Code: 73700-2 Heart Rate 1: 96 bpm Height: 5'3" Respiratory Rate: 16 bpm Weight: 170 lbs Functional Status No Functional Status data History of Present Illness Symptom Name Status Resu lt Effective Date Notes Quality feelings of un steadiness 02/16/2019 None Quality acute 02/16/2019 None Onset and Resolution o ngoing 02/16/2019 None Triggers head turning 02/16/2019 None Triggers position change 02/16/2019 None Quality chronic 02/16/2019 None Quality intermittent 02/16/2019 None Onset and Resolution o ngoing 02/16/2019 None Onset of Symptom leroy hs ago 02/16/2019 None Frequency of Episodes daily 02/16/2019 None Pertinent Findings Den ies sputum production 02/16/2019 None Quality worsening 02/16/2019 None Frequency of Episodes increasing 02/16/2019 None Triggers of fami ly member or close friend 02/16/2019 None Alleviating Factors me dication 02/16/2019 None Quality spinning 02/16/2019 None Onset and Resolution s udden in onset 02/16/2019 None Pertinent Findings Den ies dyspnea 02/16/2019 None Pertinent Findings Den ies fever 02/16/2019 None Quality feelings of un steadiness 02/10/2019 None Quality spinning 02/10/2019 None Onset and Resolution s udden in onset 02/10/2019 None Pertinent Findings Den ies fever 02/10/2019 None Pertinent Findings Den ies dyspnea 02/10/2019 None Location in the right lower back area 12/23/2018 None Location lumbar-sacral spine 12/23/2018 None Quality acute 12/23/2018 None Quality stabbing 12/23/2018 None Quality sharp 12/23/2018 None Onset and Resolution s udden in onset 12/23/2018 None Onset of Symptom 1 wee ks ago 12/23/2018 None Mechanism of injury fa ll from height 12/23/2018 None Limitation on Activities moderately limits activities 12/23/2018 None Pertinent Findings Den ies extremity numbness 12/23/2018 None Pertinent Findings Den ies extremity weakness 12/23/2018 None Pertinent Findings mor megan stiffness 12/23/2018 None Pertinent Findings sle ep disturbance 12/23/2018 None cough Location in the th roat 06/12/2018 None cough Limitation on Activities does not limit activities 06/12/2018 None cough Frequency of Episodes daily 06/12/2018 None cough Pertinent Findings chest discomfort 06/12/2018 midsternal cough Pertinent Findings Denies fever 06/12/2018 None sinus congestion Frequency of Episodes daily 06/12/2018 None sinus congestion Pertinent Findings cough 06/12/2018 None sinus congestion Pertinent Findings decreased energy level 06/12/2018 None sinus congestion Pertinent Findings Denies fever 06/12/2018 None gastroesophageal reflux Quality heartburn 06/12/2018 None gastroesophageal reflux Onset and Re solution ongoing 06/12/2018 None gastroesophageal reflux Onset of Symptom 2-3 weeks ago 06/12/2018 None gastroesophageal reflux Pertinent Findings cough 06/12/2018 None gastroesophageal reflux Pertinent Findings facial pain 06/12/2018 None gastroesophageal reflux Pertinent Findings heartburn 06/12/2018 None cough Onset and Resolution ongoing 06/12/2018 None cough Quality dry 06/12/2018 None sinus congestion Onset and Resolution resolved 06/12/2018 None cough Location in the th roat 05/26/2018 None cough Quality productive 05/26/2018 x1 2 days ago cough Onset and Resolution gradual in onset 05/26/2018 None cough Onset of Symptom 1 weeks ago 05/26/2018 None cough Limitation on Activities does not limit activities 05/26/2018 None cough Frequency of Episodes daily 05/26/2018 None cough Pertinent Findings chest discomfort 05/26/2018 midsternal cough Pertinent Findings Denies fever 05/26/2018 None sinus congestion Onset and Resolution gradual in onset 05/26/2018 None sinus congestion Onset of Symptom 2 days ago 05/26/2018 None sinus congestion Frequency of Episodes daily 05/26/2018 None sinus congestion Pertinent Findings cough 05/26/2018 None sinus congestion Pertinent Findings decreased energy level 05/26/2018 None sinus congestion Pertinent Findings Denies fever 05/26/2018 None gastroesophageal reflux Quality heartburn 05/26/2018 None gastroesophageal reflux Onset and Re solution ongoing 05/26/2018 None gastroesophageal reflux Onset of Symptom 2-3 weeks ago 05/26/2018 None gastroesophageal reflux Pertinent Findings cough 05/26/2018 None gastroesophageal reflux Pertinent Findings facial pain 05/26/2018 None gastroesophageal reflux Pertinent Findings heartburn 05/26/2018 None diabetes mellitus Onset of Symptom onset as an adult 04/01/2018 None diabetes mellitus Quality non-insulin dependent 04/01/2018 None diabetes mellitus Severity moderate 04/01/2018 None diabetes mellitus Alleviating Factors medication 04/01/2018 None diabetes mellitus Exacerbating Factors diet 04/01/2018 None diabetes mellitus Nutrition ADA diet 04/01/2018 None diabetes mellitus Pertinent Findings Denies nausea 04/01/2018 None hypertension Quality nadia jin hypertension 04/01/2018 None hypertension Onset and Resolution ongoing 04/01/2018 None hypertension Onset of Symptom during adulthood 04/01/2018 None hypertension Blood Pressure Values not checking blood pressure at home 04/01/2018 None hypertension Pertinent Findings Denies dizziness 04/01/2018 None diabetes mellitus Onset of Symptom onset as an adult 11/25/2017 None diabetes mellitus Quality non-insulin dependent 11/25/2017 None diabetes mellitus Severity moderate 11/25/2017 None diabetes mellitus Alleviating Factors medication 11/25/2017 None diabetes mellitus Exacerbating Factors diet 11/25/2017 None diabetes mellitus Nutrition ADA diet 11/25/2017 None diabetes mellitus Pertinent Findings Denies nausea 11/25/2017 None hypertension Quality nadia abdi hypertension 11/25/2017 None hypertension Onset and Resolution ongoing 11/25/2017 None hypertension Onset of Symptom during adulthood 11/25/2017 None hypertension Pertinent Findings Denies dizziness 11/25/2017 None diabetes mellitus Test results Pt checking blood glucose readings, did not bring results to clinic 11/25/2017 None diabetes mellitus Glucose monitoring daily 11/25/2017 in the morning hypertension Blood Pressure Values not checking blood pressure at home 11/25/2017 None diabetes mellitus Onset of Symptom onset as an adult 09/18/2017 None diabetes mellitus Quality non-insulin dependent 09/18/2017 None diabetes mellitus Severity moderate 09/18/2017 None diabetes mellitus Alleviating Factors medication 09/18/2017 None diabetes mellitus Exacerbating Factors diet 09/18/2017 None diabetes mellitus Nutrition ADA diet 09/18/2017 None diabetes mellitus Pertinent Findings Denies nausea 09/18/2017 None hypertension Quality nadia abdi hypertension 09/18/2017 None hypertension Onset and Resolution ongoing 09/18/2017 None hypertension Onset of Symptom during adulthood 09/18/2017 None hypertension Pertinent Findings Denies dizziness 09/18/2017 None hypertension Pertinent Findings dyspnea 09/18/2017 a little since she has garcia d the flu hypertension Pertinent Findings Denies edema 09/18/2017 None sore throat Quality acute 09/18/2017 None sore throat Onset and Resolution sudden in onset 09/18/2017 None sore throat Pertinent Findings Denies fever 09/18/2017 None sore throat Pertinent Findings cough 09/18/2017 None sore throat Pertinent Findings nasal congestion 09/18/2017 None hypertension Blood Pressure Values patient checking blood pressure at home - did not bring in readings 09/18/2017 -Checks occasionally diabetes mellitus Test results Pt checking blood glucose readings, did not bring results to clinic 09/18/2017 None diabetes mellitus Glucose monitoring daily 09/18/2017 or every other day diabetes mellitus Onset of Symptom onset as an adult 05/02/2017 None diabetes mellitus Quality non-insulin dependent 05/02/2017 None diabetes mellitus Severity moderate 05/02/2017 None diabetes mellitus Alleviating Factors medication 05/02/2017 None diabetes mellitus Exacerbating Factors diet 05/02/2017 None diabetes mellitus Nutrition ADA diet 05/02/2017 None hypertension Quality nadia jin hypertension 05/02/2017 None hypertension Onset and Resolution ongoing 05/02/2017 None hypertension Onset of Symptom during adulthood 05/02/2017 None hypertension Blood Pressure Values not checking blood pressure at home 05/02/2017 None hypertension Pertinent Findings Denies dizziness 05/02/2017 None hypertension Pertinent Findings dyspnea 05/02/2017 -depending on her activit y level hypertension Pertinent Findings edema 05/02/2017 "not any more than usual" diabetes mellitus Test results Pt checking blood glucose readings, did not bring results to clinic 05/02/2017 None diabetes mellitus Glucose monitoring daily 05/02/2017 (once or twice) diabetes mellitus Pertinent Findings Denies nausea 05/02/2017 None neck pain Location on ami th sides 05/02/2017 None neck pain Quality aching 05/02/2017 None neck pain Quality interm ittent 05/02/2017 None neck pain Onset and Resolution ongoing 05/02/2017 None neck pain Frequency of Episodes daily 05/02/2017 None neck pain Limitation on Activities moderately limits activities 05/02/2017 None neck pain Exacerbating Factors activity 05/02/2017 None oral pain Location diffu sely 03/29/2017 None oral pain Quality aching 03/29/2017 None oral pain Quality burning 03/29/2017 None oral pain Quality consta nt 03/29/2017 None oral pain Onset and Resolution sudden in onset 03/29/2017 None oral pain Onset of Symptom 10 days ago 03/29/2017 None oral pain Frequency of Episodes daily 03/29/2017 None oral pain Pertinent Findings pain with oral intake 03/29/2017 None oral pain Triggers no kn own associated factors 03/29/2017 None shortness of breath Quality breathlessness 11/15/2016 None shortness of breath Onset and Resolution sudden in onset 11/15/2016 None shortness of breath Onset of Symptom 5 days ago 11/15/2016 None diabetes mellitus Onset of Symptom onset as an adult 11/15/2016 None diabetes mellitus Quality non-insulin dependent 11/15/2016 None diabetes mellitus Severity moderate 11/15/2016 None diabetes mellitus Alleviating Factors medication 11/15/2016 None diabetes mellitus Exacerbating Factors diet 11/15/2016 and GI medications diabetes mellitus Nutrition ADA diet 11/15/2016 None diabetes mellitus Test results Pt checking blood glucose readings, did not bring results to clinic 11/15/2016 None diabetes mellitus Glucose monitoring daily 11/15/2016 168 this AM diabetes mellitus Pertinent Findings numbness 11/15/2016 hands diabetes mellitus Pertinent Findings Denies tingling 11/15/2016 None diabetes mellitus Pertinent Findings dyspnea 11/15/2016 None weakness Onset and Resolution ongoing 11/15/2016 None weakness Onset of Symptom during adulthood 11/15/2016 None weakness Pertinent Findings Denies fever 11/15/2016 None weakness Pertinent Findings lethargy 11/15/2016 None shortness of breath Quality breathlessness 11/06/2016 None shortness of breath Onset and Resolution sudden in onset 11/06/2016 None shortness of breath Onset of Symptom 5 days ago 11/06/2016 None palpitations Quality rubio reness of heartbeat 11/06/2016 None palpitations Onset and Resolution sudden in onset 11/06/2016 None palpitations Onset of Symptom 1 days ago 11/06/2016 None diaphoresis Quality cons tant 11/06/2016 None diaphoresis Onset and Resolution sudden in onset 11/06/2016 None diaphoresis Onset of Symptom 5 days ago 11/06/2016 None diabetes mellitus Onset of Symptom onset as an adult 08/01/2016 None diabetes mellitus Severity moderate 08/01/2016 None diabetes mellitus Nutrition ADA diet 08/01/2016 None diabetes mellitus Quality non-insulin dependent 08/01/2016 None diabetes mellitus Blood glucose levels greater than 120 08/01/2016 None diabetes mellitus Glucose monitoring daily 08/01/2016 None diabetes mellitus Alleviating Factors medication 08/01/2016 None diabetes mellitus Exacerbating Factors diet 08/01/2016 and GI medications diabetes mellitus Onset of Symptom onset as an adult 07/02/2016 None diabetes mellitus Severity moderate 07/02/2016 None diabetes mellitus Test results HgbA1c level 8.7 07/02/2016 None diabetes mellitus Glucose monitoring twice daily 07/02/2016 None diabetes mellitus Nutrition ADA diet 07/02/2016 None diabetes mellitus Exercise minimal exercise 07/02/2016 None diabetes mellitus Quality insulin dependent 06/04/2016 None diabetes mellitus Alleviating Factors insulin 06/04/2016 None diabetes mellitus Exacerbating Factors diet 06/04/2016 None ~generic Onset and Resolution ongoing 06/04/2016 None diabetes mellitus Test results Pt checking blood glucose readings, did not bring results to clinic 06/04/2016 None diabetes mellitus Glucose monitoring daily 06/04/2016 None earache Location both ea rs 06/04/2016 None earache Quality acute 06/04/2016 None earache Onset and Resolution ongoing 06/04/2016 None earache Triggers allergi es 06/04/2016 None hypertension Quality chr onic 03/26/2016 None hypertension Onset and Resolution ongoing 03/26/2016 None hypertension Onset of Symptom during adulthood 03/26/2016 None hypertension Blood Pressure Values not checking blood pressure at home 03/26/2016 None hypertension Severity mi ld 03/26/2016 None hypertension Alleviating Factors medication 03/26/2016 None hypertension Pertinent Findings Denies dizziness 03/26/2016 None hypertension Pertinent Findings Denies edema 03/26/2016 None hypertension Exacerbating Factors stress 03/26/2016 None headache Location in the right posterior area 03/26/2016 None headache Quality intermi ttent 03/26/2016 None headache Onset and Resolution ongoing 03/26/2016 None headache Alleviating Factors medication 03/26/2016 (tylenol) headache Triggers stress 03/26/2016 None headache Triggers positi on change 03/26/2016 None hypertension Pertinent Findings Denies dyspnea 03/26/2016 None diabetes mellitus Quality insulin dependent 03/26/2016 None diabetes mellitus Test results Pt checking blood glucose readings, did not bring results to clinic 03/26/2016 None diabetes mellitus Glucose monitoring daily 03/26/2016 (several times per day) diabetes mellitus Alleviating Factors insulin 03/26/2016 None diabetes mellitus Exacerbating Factors diet 03/26/2016 None ~generic Onset and Resolution ongoing 03/26/2016 None hypertension Quality chr onic 11/23/2015 None hypertension Onset and Resolution ongoing 11/23/2015 None hypertension Onset of Symptom during adulthood 11/23/2015 None hypertension Blood Pressure Values not checking blood pressure at home 11/23/2015 None hypertension Severity mi ld 11/23/2015 None hypertension Pertinent Findings Denies edema 11/23/2015 None hypertension Pertinent Findings Denies dizziness 11/23/2015 None hypertension Alleviating Factors medication 11/23/2015 None diabetes mellitus Onset of Symptom onset as an adult 10/14/2015 None diabetes mellitus Quality non-insulin dependent 10/14/2015 None diabetes mellitus Pertinent Findings dizziness 10/14/2015 -from lack of sleep and stress diabetes mellitus Pertinent Findings nausea 10/14/2015 -from stress and nervousn ess hypertension Quality chr onic 10/14/2015 None hypertension Onset and Resolution ongoing 10/14/2015 None hypertension Onset of Symptom during adulthood 10/14/2015 None hypertension Severity mi ld 10/14/2015 None hypertension Pertinent Findings Denies edema 10/14/2015 None diabetes mellitus Glucose monitoring does not test 10/14/2015 None diabetes mellitus Alleviating Factors insulin 10/14/2015 None diabetes mellitus Pertinent Findings dyspnea 10/14/2015 -from lack of sleep and s tress hypertension Blood Pressure Values not checking blood pressure at home 10/14/2015 None hypothyroid Onset and Resolution ongoing 10/14/2015 None hypothyroid Alleviating Factors medication 10/14/2015 None hyperlipidemia Onset and Resolution ongoing 10/14/2015 None hyperlipidemia Alleviating Factors medication 10/14/2015 None hyperlipidemia Exacerbating Factors diet 10/14/2015 None diabetes mellitus Onset of Symptom onset as an adult 03/31/2015 None diabetes mellitus Quality non-insulin dependent 03/31/2015 None diabetes mellitus Pertinent Findings dizziness 03/31/2015 is better diabetes mellitus Pertinent Findings nausea 03/31/2015 None hypertension Quality chr onic 03/31/2015 None hypertension Onset and Resolution ongoing 03/31/2015 None hypertension Onset of Symptom during adulthood 03/31/2015 None hypertension Blood Pressure Values patient checking blood pressure at home - did not bring in readings 03/31/2015 None hypertension Severity mi ld 03/31/2015 None hypertension Pertinent Findings Denies dyspnea 03/31/2015 None hypertension Pertinent Findings Denies edema 03/31/2015 None ~generic Location diffus cheryl 03/31/2015 reports stiff neck which she is going to see Dr. García on for her neck pain - diabetes mellitus Test results Pt checking blood glucose readings, did not bring results to clinic 03/31/2015 None diabetes mellitus Glucose monitoring daily 03/31/2015 None anxiety Onset and Resolution ongoing 03/31/2015 None anxiety Onset of Symptom during adulthood 03/31/2015 None depression Onset and Resolution ongoing 03/31/2015 None depression Onset of Symptom during adulthood 03/31/2015 None cough Location in the th roat 03/31/2015 None cough Quality dry 03/31/2015 None cough Quality constant 03/31/2015 None cough Quality intermitte nt 03/31/2015 None cough Onset and Resolution ongoing 03/31/2015 None cough Onset of Symptom 3 weeks ago 03/31/2015 None cough Triggers no known associated factors 03/31/2015 None diabetes mellitus Onset of Symptom onset as an adult 08/31/2014 None diabetes mellitus Quality non-insulin dependent 08/31/2014 None diabetes mellitus Pertinent Findings dizziness 08/31/2014 is better diabetes mellitus Pertinent Findings nausea 08/31/2014 None hypertension Quality chr onic 08/31/2014 None hypertension Onset and Resolution ongoing 08/31/2014 None hypertension Onset of Symptom during adulthood 08/31/2014 None hypertension Blood Pressure Values patient checking blood pressure at home - did not bring in readings 08/31/2014 None hypertension Severity mi ld 08/31/2014 None hypertension Pertinent Findings Denies dyspnea 08/31/2014 None hypertension Pertinent Findings Denies edema 08/31/2014 None ~generic Location diffus cheryl 08/31/2014 reports stiff neck which she is going to see Dr. García on for her neck pain - diabetes mellitus Blood glucose levels between 60 and 120 08/31/2014 None diabetes mellitus Onset of Symptom onset as an adult 08/10/2014 None diabetes mellitus Quality non-insulin dependent 08/10/2014 None hypertension Quality chr onic 08/10/2014 None hypertension Onset and Resolution ongoing 08/10/2014 None hypertension Onset of Symptom during adulthood 08/10/2014 None hypertension Blood Pressure Values patient checking blood pressure at home - did not bring in readings 08/10/2014 None hypertension Severity mi ld 08/10/2014 None hypertension Pertinent Findings Denies dyspnea 08/10/2014 None hypertension Pertinent Findings Denies edema 08/10/2014 None hypertension Pertinent Findings palpitations 08/10/2014 None diabetes mellitus Blood glucose levels between 60 and 120 08/10/2014 Patient reports that her bs have been running 75 the last week. diabetes mellitus Pertinent Findings dizziness 08/10/2014 None diabetes mellitus Pertinent Findings nausea 08/10/2014 Is due to take her weekly shot tonight constipation Onset of Symptom 10 days ago 08/10/2014 Hasnt had a real BM x 10 days, is having small soft stools intermittent since constipation Pertinent Findings bloating 08/10/2014 None constipation Pertinent Findings nausea 08/10/2014 pain under right rib constipation Onset and Resolution gradual in onset 08/10/2014 None constipation Quality les s than 1 stool per week 08/10/2014 None constipation Severity mo derate 08/10/2014 None neck pain Location in th e cervical spine 05/06/2014 None neck pain Quality aching 05/06/2014 None neck pain Quality stabbi ng 05/06/2014 /shooting pain in her nec k and up behind her ear. Pt states that she has some pain in her ears as well, and sometimes the neck pain will end up causing "sick headaches". She reports that she will wake up with neck pain and a headache. neck pain Triggers no kn own associated factors 05/06/2014 None neck pain Exacerbating Factors turning head to the right 05/06/2014 None neck pain Exacerbating Factors neck extension 05/06/2014 None neck pain Severity moder ate 05/06/2014 None hip pain Location on the left 04/14/2014 None hip pain Location on the right 04/14/2014 None hip pain Quality dull ac he 04/14/2014 None hip pain Onset and Resolution improved during the day 04/14/2014 None hip pain Limitation on Activities moderately limits activities 04/14/2014 None hip pain Severity modera te 04/14/2014 None hip pain Radiating radia suki down the leg to the foot 04/14/2014 None hip pain Pertinent Findings Denies decreased range of motion 04/14/2014 None hip pain Pertinent Findings pain at rest 04/14/2014 None hip pain Pertinent Findings pain with movement 04/14/2014 None hip pain Pertinent Findings Denies redness 04/14/2014 None hip pain Pertinent Findings Denies stiffness 04/14/2014 None hip pain Pertinent Findings Denies swelling 04/14/2014 None diabetes mellitus Onset of Symptom onset as an adult 04/14/2014 None diabetes mellitus Quality non-insulin dependent 04/14/2014 None diabetes mellitus Pertinent Findings Denies dizziness 04/14/2014 None diabetes mellitus Pertinent Findings Denies nausea 04/14/2014 None hypertension Quality chr onic 04/14/2014 None hypertension Onset and Resolution ongoing 04/14/2014 None hypertension Onset of Symptom during adulthood 04/14/2014 None hypertension Blood Pressure Values patient checking blood pressure at home - did not bring in readings 04/14/2014 None hypertension Severity mi ld 04/14/2014 None hypertension Pertinent Findings Denies dizziness 04/14/2014 None hypertension Pertinent Findings Denies dyspnea 04/14/2014 None hypertension Pertinent Findings Denies edema 04/14/2014 None hypertension Pertinent Findings palpitations 04/14/2014 None headache Quality sharp 04/14/2014 None headache Quality intermi ttent 04/14/2014 occ relieved by heat & me ds (ibuprofen, tylenol) headache Pertinent Findings awakens from sleep 04/14/2014 None headache Pertinent Findings Denies dizziness 04/14/2014 None headache Pertinent Findings Denies nausea 04/14/2014 None headache Pertinent Findings Denies sleep disturbance 04/14/2014 None diabetes mellitus Test results Pt checking blood glucose readings, did not bring results to clinic 04/14/2014 BS depends on time of day- 100-140 headache Location in the right occipital area 04/14/2014 None headache Onset of Symptom 1 year ago 04/14/2014 None headache Frequency of Episodes increasing 04/14/2014 None hypertension Blood Pressure Values patient checking blood pressure at home - did not bring in readings 11/10/2013 None hypertension Pertinent Findings Denies dizziness 11/10/2013 None hypertension Pertinent Findings Denies dyspnea 11/10/2013 None hypertension Pertinent Findings Denies edema 11/10/2013 None hypertension Pertinent Findings palpitations 11/10/2013 None diabetes mellitus Test results Pt checking blood glucose readings, did not bring results to clinic 11/10/2013 None diabetes mellitus Blood glucose levels greater than 120 11/10/2013 None hip pain Location on the right 11/10/2013 None hip pain Location on the left 11/10/2013 None hip pain Quality dull ac he 11/10/2013 None hip pain Severity modera te 11/10/2013 None hip pain Limitation on Activities moderately limits activities 11/10/2013 None hip pain Radiating radia suki down the leg to the foot 11/10/2013 None hip pain Pertinent Findings pain with movement 11/10/2013 None hip pain Pertinent Findings pain at rest 11/10/2013 None hip pain Pertinent Findings decreased range of motion 11/10/2013 None hip pain Pertinent Findings stiffness 11/10/2013 None hip pain Pertinent Findings Denies redness 11/10/2013 None hip pain Pertinent Findings Denies swelling 11/10/2013 None diabetes mellitus Quality non-insulin dependent 11/10/2013 None diabetes mellitus Onset of Symptom onset as an adult 11/10/2013 None diabetes mellitus Pertinent Findings Denies nausea 11/10/2013 None diabetes mellitus Pertinent Findings Denies dizziness 11/10/2013 None hypertension Quality chr onic 11/10/2013 None hypertension Onset and Resolution ongoing 11/10/2013 None hypertension Onset of Symptom during adulthood 11/10/2013 None hypertension Severity mi ld 11/10/2013 None hip pain Onset and Resolution improved during the day 11/10/2013 pt states that she is wondering if she needs an mri of her hips. diabetes mellitus Test results Pt checking blood glucose at home, see scanned readings 07/14/2013 None diabetes mellitus Blood glucose levels greater than 120 07/14/2013 None diabetes mellitus Quality non-insulin dependent 07/14/2013 patient is using bydureon. is out of samples. diabetes mellitus Pertinent Findings Denies dizziness 07/14/2013 None diabetes mellitus Pertinent Findings Denies lethargy 07/14/2013 None diabetes mellitus Pertinent Findings nausea 07/14/2013 None diabetes mellitus Exercise no exercise 07/14/2013 None diabetes mellitus Quality chronic 06/12/2013 None diabetes mellitus Quality worsening 06/12/2013 None diabetes mellitus Glucose monitoring before meals 06/12/2013 None blood pressure followup Onset and Re solution ongoing 06/12/2013 None blood pressure followup Onset of Symptom during adulthood 06/12/2013 None blood pressure followup Blood Pressu re Values pt checking blood pressure - see scanned document 06/12/2013 None blood pressure followup Frequency of Episodes increasing 06/12/2013 No ne blood pressure followup Significant Family History cerebrovascular accident 06/12/2013 None blood pressure followup Significant Family History heart disease 06/12/2013 None blood pressure followup Significant Family History stroke 06/12/2013 None blood pressure followup Significant Family History hypertension 06/12/2013 None blood pressure followup Triggers stress 06/12/2013 None blood pressure followup Alleviating Factor s medication 06/12/2013 ran out of toprol and losartan diabetes mellitus Test results Pt checking blood glucose readings, did not bring results to clinic 06/12/2013 Doesn't think she is giving the bydureon correctly. diabetes mellitus Alleviating Factors medication 06/12/2013 None diabetes mellitus Exacerbating Factors diet 06/12/2013 None diabetes mellitus Nutrition ADA diet 06/12/2013 None diabetes mellitus Exercise no exercise 06/12/2013 None diabetes mellitus Quality chronic 05/20/2013 started Byyohana recently. stating her blood sugar is dropping randomly. diabetes mellitus Test results Pt checking blood glucose at home, see scanned readings 05/20/2013 None urinary urgency Quality acute 05/20/2013 None urinary urgency Onset and Resolution sudden in onset 05/20/2013 None urinary urgency Onset of Symptom 3 days ago 05/20/2013 None urinary urgency Pertinent Findings Denies nocturia 05/20/2013 None diabetes mellitus Severity moderate 05/20/2013 None diabetes mellitus Exercise no exercise 05/20/2013 None diabetes mellitus Pertinent Findings Denies dehydration 05/20/2013 None diabetes mellitus Pertinent Findings Denies dizziness 05/20/2013 None diabetes mellitus Pertinent Findings Denies dyspnea 05/20/2013 None diabetes mellitus Pertinent Findings Denies nausea 05/20/2013 None diabetes mellitus Pertinent Findings Denies nocturia 05/20/2013 None diabetes mellitus Pertinent Findings Denies numbness 05/20/2013 None pain, generalized Location diffusely 04/09/2013 patient states she is ach y all over. pain, generalized Onset of Symptom 4 weeks ago 04/09/2013 None pain, generalized Triggers no known associated factors 04/09/2013 patient started lipitor last month pain, generalized Pertinent Findings Denies focal numbness 04/09/2013 None pain, generalized Pertinent Findings Denies focal weakness 04/09/2013 None pain, generalized Pertinent Findings Denies mental status change 04/09/2013 None pain, generalized Pertinent Findings Denies psychiatric symptoms 04/09/2013 None pain, generalized Alleviating Factors medication 04/09/2013 pt relates it to lipitor pain, generalized Limitation on Activities moderately limits activities 04/09/2013 None pain, generalized Quality aching 04/09/2013 None pain, generalized Onset and Resolution ongoing 04/09/2013 None cough Quality dry 01/26/2013 None cough Location in the th roat 01/26/2013 None cough Onset and Resolution ongoing 01/26/2013 patient has started lisin opril and toprol recently, has noticed cough since starting meds. cough Onset of Symptom 2 weeks ago 01/26/2013 None cough Pertinent Findings Denies chest discomfort 01/26/2013 None cough Pertinent Findings hoarseness 01/26/2013 None cough Pertinent Findings Denies nasal congestion 01/26/2013 None cough Significant Medical Conditions cardiac disease 01/26/2013 None hip pain Location on the right 12/23/2012 None hip pain Quality dull ac he 12/23/2012 None hip pain Quality worseni ng 12/23/2012 None hip pain Limitation on Activities moderately limits activities 12/23/2012 None hand pain Quality numbne ss 12/23/2012 None hand pain Location on th e right 12/23/2012 None hand pain Quality worsen ing 12/23/2012 None hip pain Significant Medical Conditions advancing age 0512/23/2012 None hip pain Significant Medical Conditions diabetes 12/23/2012 None hip pain Pertinent Findings pain at rest 12/23/2012 None hip pain Pertinent Findings pain with movement 12/23/2012 None hip pain Pertinent Findings stiffness 12/23/2012 None cough Location in the moon ng 12/15/2012 None cough Quality productive 12/15/2012 None cough Quality interrupts sleep 12/15/2012 None cough Pertinent Findings lethargy 12/15/2012 family member ordered a z ankit for her cough Pertinent Findings nasal congestion 12/15/2012 sore throat pain, generalized Location diffusely 10/22/2012 None pain, generalized Quality intermittent 10/22/2012 None pain, generalized Onset and Resolution ongoing 10/22/2012 started after she fell at home in the shower pain, generalized Limitation on Activities moderately limits activities 10/22/2012 pt states that her right hip and down into her leg - hurts after she had the fall in her shower, started a few days ago. pain, generalized Pertinent Findings Denies focal numbness 10/22/2012 None pain, generalized Pertinent Findings muscle cramping 10/22/2012 None diabetes mellitus Onset of Symptom onset as an adult 08/21/2012 None diabetes mellitus Quality chronic 08/21/2012 None diabetes mellitus Severity mild 08/21/2012 None depression Quality chron ic 08/21/2012 None depression Quality worse megan 08/21/2012 None depression Limitation on Activities moderately limits activities 08/21/2012 None depression Triggers stre ss 08/21/2012 Pt states that her husban d is the largest cause of her stress. He has always been a loving spouse, but he is very loud and very verbal with curse words, at home and in public. He has "explosions" to p erceived wrongs to his person or to those who he identifies with - an example of which is that he yells and rants at the TV when watching sports, or he exlplodes and curses at himself when he drops stuff, or has road rage. She states that things are getting to a breaking point for her and she is thinking about staying with her DTR when he is home on the weekends to avoid the confrontations. depression Alleviating Factors therapy 08/21/2012 Pt has recently started s eeking counseling from her floor waxer. depression Pertinent Findings anxiety 08/21/2012 None depression Pertinent Findings depressed mood 08/21/2012 None depression Pertinent Findings difficulty concentrating 08/21/2012 None depression Pertinent Findings guilt 08/21/2012 None hypertension Quality chr onic 08/21/2012 None hypertension Onset and Resolution ongoing 08/21/2012 None hypertension Quality sta ble 08/21/2012 None hypertension Blood Pressure Values patient checking blood pressure at home - did not bring in readings 08/21/2012 None hypertension Severity mi ld 08/21/2012 None hypertension Exacerbating Factors stress 08/21/2012 None hypertension Pertinent Findings anxiety 08/21/2012 None hypertension Pertinent Findings Denies muscle weakness 08/21/2012 None hypertension Pertinent Findings Denies nervousness 08/21/2012 None diabetes mellitus Quality chronic 07/17/2012 None diabetes mellitus Onset of Symptom onset as an adult 07/17/2012 None diabetes mellitus Severity mild 07/17/2012 None diabetes mellitus Test results Pt checking blood glucose readings, did not bring results to clinic 07/17/2012 None depression Quality chron ic 07/17/2012 None depression Quality worse megan 07/17/2012 None depression Limitation on Activities moderately limits activities 07/17/2012 None depression Triggers stre ss 07/17/2012 Pt states that her husban d is the largest cause of her stress. He has always been a loving spouse, but he is very loud and very verbal with curse words, at home and in public. He has "explosions" to p erceived wrongs to his person or to those who he identifies with - an example of which is that he yells and rants at the TV when watching sports, or he exlplodes and curses at himself when he drops stuff, or has road rage. She states that things are getting to a breaking point for her and she is thinking about staying with her DTR when he is home on the weekends to avoid the confrontations. depression Alleviating Factors therapy 07/17/2012 Pt has recently started s eeking counseling from her floor waxer. depression Pertinent Findings anxiety 07/17/2012 None depression Pertinent Findings depressed mood 07/17/2012 None depression Pertinent Findings difficulty concentrating 07/17/2012 None depression Pertinent Findings guilt 07/17/2012 None disturbances of memory Onset and Resolutio n gradual in onset 07/08/2012 None disturbances of memory Onset and Resolutio n ongoing 07/08/2012 None chest pain/pressure Onset of Symptom 1 days ago 07/08/2012 None chest pain/pressure Quality stabbing 07/08/2012 None chest pain/pressure Onset and Resolution sudden in onset 07/08/2012 took 's nitro and it was relieved in 30 min disturbances of memory Onset of Symptom during adulthood 07/08/2012 None disturbances of memory Quality chronic 07/08/2012 None disturbances of memory Pertinent Findings anxiety 07/08/2012 None disturbances of memory Pertinent Findings Denies seizure 07/08/2012 None disturbances of memory Pertinent Findings Denies lapses in consciousness 07/08/2012 None disturbances of memory Pertinent Findings depressed mood 07/08/2012 None disturbances of memory Pertinent Findings Denies behavioral changes 07/08/2012 None hypertension Quality sta ble 06/09/2012 None hypertension Onset and Resolution ongoing 06/09/2012 None diabetes mellitus Quality non-insulin dependent 06/09/2012 None hyperlipidemia Onset and Resolution ongoing 06/09/2012 None diabetes mellitus Onset of Symptom onset as an adult 06/09/2012 None diabetes mellitus Severity mild 06/09/2012 None diabetes mellitus Pertinent Findings Denies dizziness 06/09/2012 None diabetes mellitus Pertinent Findings Denies lethargy 06/09/2012 None diabetes mellitus Pertinent Findings Denies nausea 06/09/2012 None diabetes mellitus Exercise minimal exercise 06/09/2012 None diabetes mellitus Alleviating Factors medication 06/09/2012 None hypertension Blood Pressure Values patient checking blood pressure at home - did not bring in readings 06/09/2012 None hypertension Severity mi ld 06/09/2012 None hypertension Pertinent Findings anxiety 06/09/2012 None hypertension Pertinent Findings Denies muscle weakness 06/09/2012 None hypertension Pertinent Findings Denies nervousness 06/09/2012 None hypertension Exacerbating Factors stress 06/09/2012 None hyperlipidemia Onset of Symptom during adulthood 06/09/2012 None hyperlipidemia Severity mild 06/09/2012 None hyperlipidemia Quality c hronic 06/09/2012 None diabetes mellitus Test results Pt checking blood glucose readings, did not bring results to clinic 02/12/2012 None sinus congestion Quality worsening 02/12/2012 None diabetes mellitus Severity mild 02/12/2012 None diabetes mellitus Alleviating Factors medication 02/12/2012 None diabetes mellitus Alleviating Factors diet 02/12/2012 None diabetes mellitus Exacerbating Factors diet 02/12/2012 None diabetes mellitus Pertinent Findings Denies behavioral changes 02/12/2012 None diabetes mellitus Pertinent Findings lethargy 02/12/2012 None diabetes mellitus Quality non-insulin dependent 02/12/2012 None diabetes mellitus Pertinent Findings Denies dizziness 02/12/2012 None diabetes mellitus Pertinent Findings Denies nausea 02/12/2012 None diabetes mellitus Onset of Symptom onset as an adult 02/12/2012 None earache Location both ea rs 02/05/2012 None earache Quality acute 02/05/2012 None earache Onset and Resolution ongoing 02/05/2012 None earache Onset of Symptom 5 days ago 02/05/2012 None earache Frequency of Episodes increasing 02/05/2012 None earache Significant Medical Conditions allergic rhinitis 02/05/2012 None earache Triggers no know n triggers 02/05/2012 None hemorrhoids Quality acute 02/05/2012 None earache Severity moderate 02/05/2012 pressure and fullness in both ears and s tates she can't hear. States it got worse over the weekend. Dizzy as well. hemorrhoids Onset and Resolution ongoing 02/05/2012 States she had a rectal p rolapse repair and removal of internal and external hemorrhoids. Surgery 01/29/12. hemorrhoids Severity mod erate 02/05/2012 None hemorrhoids Limitation on Activities moderately limits activities 02/05/2012 None hemorrhoids Significant Medications stool softeners 02/05/2012 None hemorrhoids Significant Medications laxitive 02/05/2012 None hemorrhoids Pertinent Findings Denies chills 02/05/2012 None hemorrhoids Pertinent Findings Denies pain 02/05/2012 None earache Quality acute 11/14/2011 None earache Onset and Resolution ongoing 11/14/2011 None earache Severity moderate 11/14/2011 None earache Frequency of Episodes increasing 11/14/2011 None earache Significant Medical Conditions allergic rhinitis 11/14/2011 None earache Significant Medications antihistamine 11/14/2011 None earache Triggers allergi es 11/14/2011 None sinusitis Location in th e bilateral frontal sinuses 11/14/2011 None sinusitis Location in th e bilateral maxillary sinuses 11/14/2011 None sinusitis Onset and Resolution gradual in onset 11/14/2011 None sinusitis Onset and Resolution ongoing 11/14/2011 None sinusitis Pertinent Findings Denies facial pain 11/14/2011 None sinusitis Pertinent Findings Denies fatigue 11/14/2011 None sinusitis Pertinent Findings Denies headache 11/14/2011 None sinusitis Pertinent Findings Denies sinus pain 11/14/2011 None sinusitis Pertinent Findings Denies sinus pressure 11/14/2011 None sinusitis Quality acute 11/14/2011 None sinus congestion Frequency of Episodes increasing 11/14/2011 None sinus congestion Timing of Episodes all day long 11/14/2011 None sinus congestion Significant Medical Conditions allergic rhinitis 11/14/2011 None sinusitis Quality pain 11/14/2011 None sinusitis Quality pressu re 11/14/2011 None sinus congestion Significant Medications decongestants 11/14/2011 -claritin d sinus congestion Triggers allergens 11/14/2011 None sinusitis Severity moder ate 11/14/2011 None sore throat Onset of Symptom 2 days ago 11/14/2011 None sinus congestion Onset of Symptom 2 days ago 11/14/2011 None sore throat Quality burn ing 11/14/2011 None earache Location both ea rs 11/14/2011 None earache Onset of Symptom 2 days ago 11/14/2011 None sore throat Location dif fusely 11/14/2011 None sore throat Onset and Resolution ongoing 11/14/2011 None sore throat Quality acute 11/14/2011 None sore throat Limitation on Activities does not limit oral intake 11/14/2011 None sore throat Frequency of Episodes unchanged 11/14/2011 None sore throat Significant Medical Conditions allergic rhinitis 11/14/2011 None sore throat Triggers all ergens 11/14/2011 States she is using the n kalee pot and claritin d twice daily. sinus congestion Quality acute 11/14/2011 None sinus congestion Onset and Resolution ongoing 11/14/2011 None sinus congestion Severity moderate 11/14/2011 None cough Location in the moon ng 10/08/2011 None cough Quality hacking 10/08/2011 None cough Onset and Resolution sudden in onset 10/08/2011 None fever Quality acute 10/08/2011 None fever Onset and Resolution sudden in onset 10/08/2011 None fever Onset of Symptom 3 days ago 10/08/2011 None diabetes mellitus Test results Pt checking blood glucose at home, see scanned readings 10/08/2011 None cough Onset of Symptom 3 -4 days ago 10/08/2011 None cough Frequency of Episodes increasing 10/08/2011 None cough Limitation on Activities moderately limits activities 10/08/2011 None diabetes mellitus Severity mild 10/08/2011 None diabetes mellitus Test results fasting glucose >140 10/08/2011 None diabetes mellitus Quality non-insulin dependent 10/08/2011 None diabetes mellitus Pertinent Findings Denies behavioral changes 10/08/2011 None diabetes mellitus Pertinent Findings Denies dizziness 10/08/2011 None diabetes mellitus Pertinent Findings lethargy 10/08/2011 None diabetes mellitus Alleviating Factors medication 10/08/2011 None diabetes mellitus Alleviating Factors diet 10/08/2011 None diabetes mellitus Exacerbating Factors diet 10/08/2011 None cough Triggers ill conta cts 10/08/2011 None cough Triggers post nasa l drip 10/08/2011 None cough Pertinent Findings Denies chest discomfort 10/08/2011 None cough Pertinent Findings chills 10/08/2011 None cough Pertinent Findings Denies tachypnea 10/08/2011 None cough Pertinent Findings Denies stridor 10/08/2011 None cough Pertinent Findings sputum production 10/08/2011 None cerumen Location in the left ear 08/28/2011 None cerumen Onset and Resolution ongoing 08/28/2011 has been using ear gtts a s instructed nasal discharge Location in both nares 08/28/2011 alternating clear and ye llow, nasal discharge Onset and Resolution ongoing 08/28/2011 None nasal discharge Severity moderate 08/28/2011 None nasal discharge Alleviating Factors medication 08/28/2011 taking claritin D cough Location in the la rynx 08/28/2011 taking mucinex cough Quality acute 08/28/2011 None cough Onset and Resolution sudden in onset 08/28/2011 None constipation Quality chr onic 08/28/2011 wants to go back on stool softner nasal discharge Location in both nares 08/23/2011 alternating clear and ye llow, cough Location in the la rynx 08/23/2011 taking mucinex nasal discharge Alleviating Factors medication 08/23/2011 taking claritin D nasal discharge Onset and Resolution ongoing 08/23/2011 None nasal discharge Onset of Symptom 1 weeks ago 08/23/2011 None nasal discharge Severity moderate 08/23/2011 None cough Quality acute 08/23/2011 None cough Onset and Resolution sudden in onset 08/23/2011 None cough Onset of Symptom 1 weeks ago 08/23/2011 None cough Triggers ill conta cts 08/23/2011 grandson cough Alleviating Factors OTC medications 08/23/2011 None diabetes mellitus Quality non-insulin dependent 07/24/2011 None diabetes mellitus Onset of Symptom onset as an adult 07/24/2011 None diabetes mellitus Severity mild 07/24/2011 None diabetes mellitus Blood glucose levels greater than 120 07/24/2011 160 to 180 for two weeks while having diarrhea, but now her fsbs are in the 128 range diabetes mellitus Exercise no exercise 07/24/2011 None diabetes mellitus Pertinent Findings Denies dizziness 07/24/2011 None diabetes mellitus Pertinent Findings Denies lethargy 07/24/2011 None diabetes mellitus Pertinent Findings Denies nausea 07/24/2011 None hematochezia Quality acu te 06/19/2011 None hematochezia Quality blo od-streaked stool 06/19/2011 very soft stools, some mu cus and some signs of blood on her toilet paper and pantyliner sinusitis Location diffu sely 06/19/2011 None sinusitis Quality acute 06/19/2011 None sinusitis Quality chronic 06/19/2011 None sinusitis Onset and Resolution ongoing 06/19/2011 None sinusitis Severity moder ate 06/19/2011 None sinusitis Significant Medical Conditions allergic rhinitis 06/19/2011 None sinusitis Triggers no kn own associated factors 06/19/2011 None hematochezia Onset and Resolution ongoing 06/19/2011 None hematochezia Onset of Symptom 7-10 days ago 06/19/2011 None hematochezia Severity mi ld 06/19/2011 None hematochezia Frequency of Episodes unchanged 06/19/2011 with bowel movements hematochezia Triggers st raining at stool 06/19/2011 None hematochezia Pertinent Findings Denies abdominal distension 06/19/2011 None hematochezia Pertinent Findings Denies painful stools 06/19/2011 None hematochezia Pertinent Findings Denies UGI bleed 06/19/2011 None hand pain Quality throbb ing 06/05/2011 Dr Cortez started her on ga bapentin 100mg bid. wondering about increasing as pain not controlled hand pain Quality burnin g sensation 06/05/2011 None hand pain Onset and Resolution ongoing 06/05/2011 None hand pain Onset of Symptom 2 months ago 06/05/2011 None hand pain Frequency of Episodes daily 06/05/2011 None hand pain Limitation on Activities moderately limits activities 06/05/2011 None hand pain Severity moder ate 06/05/2011 None hand pain Pertinent Findings numbness 06/05/2011 None hand pain Pertinent Findings stiffness 06/05/2011 None hand pain Pertinent Findings tingling 06/05/2011 None Advance Directives No Advance Directive data Encounters Encounter Performer Loca tion Codes Date ([id number]) [id number] EST. P ATIENT, LEVEL III Diagnosis: Other allergic rhinitis[ICD10: J30.89] Diagnosis: Major depressive disorder, recurrent, mild[ICD10: F33.0] Amy Cheung MD, C CPT-4: 50041 02/16/2019 84555 EST. PATIENT, LEVEL III Diagnosis: Other allergic rhinitis[ICD10: J30.89] Diagnosis: Benign paroxysmal vertigo, bilateral[ICD10: H81.13] Diagnosis: Dizziness and giddiness[ICD10: R42] Diagnosis: Muscle spasm of back[ICD10: M62.830] Mariana Cheung MD, [facility] CPT- 4: 36682 02/10/2019 ([id number]) 81371 EST. P ATIENT, LEVEL III Diagnosis: Pleurodynia[ICD10: R07.81] Diagnosis: Pain in thoracic spine[ICD10: M54.6] Amy Cheung MD, [facility] CPT-4: 63190 12/23/2018 ([id number]) 79508 EST. P ATIENT, LEVEL III Diagnosis: Gastro-esophageal reflux disease without esophagitis[ICD10: K21.9] Amy Cheung MD, [facility] CPT-4: 91730 06/12/2018 ([id number]) 07387 EST. P ATIENT, LEVEL III Diagnosis: Gastro-esophageal reflux disease without esophagitis[ICD10: K21.9] Diagnosis: Cough[ICD10: R05] Riya Cheung MD, [facility] CPT-4: 35222 05/26/2018 ([id number]) 43358 EST. 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 P ATIENT, LEVEL IV Diagnosis: Type 2 diabetes mellitus with hyperglycemia[ICD10: E11.65] Diagnosis: Essential (primary) hypertension[ICD10: I10] Amy Cheung MD, C CPT-4: 92952 11/25/2017 ([id number]) 46208 EST. P ATIENT, LEVEL IV Diagnosis: Type 2 diabetes mell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[ICD10: E11.9] Diagnosis: Mixed hyperlipidemia[ICD10: E78.2] Diagnosis: Candidal stomatitis[ICD10: B37.0] Amy Cheung MD, [facility] CPT-4: 12660 09/18/2017 ([id number]) 71997 EST. P ATIENT, LEVEL IV Diagnosis: Type 2 diabetes mell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[ICD10: E11.9] Diagnosis: Mixed hyperlipidemia[ICD10: E78.2] Diagnosis: Essential (primary) hypertension[ICD10: I10] Diagnosis: Encounter for immunization[ICD10: Z23] Amy Cheung MD, [facility] CPT-4: 46531 05/02/2017 ([id number]) 63688 EST. P ATIENT, LEVEL III Diagnosis: Candidal stomatitis[ICD10: B37.0] Riya Cheung MD, [facility] CPT- 4: 81917 03/29/2017 ([id number]) 65910 EST. P ATIENT, LEVEL IV Diagnosis: Essential (primary) hypertension[ICD10: I10] Diagnosis: Type 2 diabetes mell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[ICD10: E11.9] Amy Cheung MD, [facility] CPT-4: 16160 11/15/2016 05276 EST. PATIENT, LEVEL III Diagnosis: Other malaise[ICD10: R53.81] Diagnosis: Other fatigue[ICD10: R53.83] Diagnosis: Type 2 diabetes mellitus with hyperglycemia[ICD10: E11.65] Diagnosis: Essential (primary) hypertension[ICD10: I10] Diagnosis: Weakness[ICD10: R53.1] Mariana Cheung MD, [facility] CPT-4: 99272 11/06/2016 ([id number]) 60445 EST. P ATIENT, LEVEL III Diagnosis: Type 2 diabetes mellitus with hyperglycemia[ICD10: E11.65] Amy Cheung MD, [facility] CPT-4: 58101 08/01/2016 ([id number]) 92023 EST. P ATIENT, LEVEL III Diagnosis: Type 2 diabetes mellitus with hyperglycemia[ICD10: E11.65] Diagnosis: Gastroparesis[ICD10: K31.84] Amy Cheung MD, [facility] CPT-4: 92997 07/02/2016 ([id number]) 83335 EST. P ATIENT, LEVEL IV Diagnosis: Type 2 diabetes mellitus with hyperglycemia[ICD10: E11.65] Diagnosis: Hypothyroidism, unspecified[ICD10: E03.9] Amy Cheung MD, [facility] CPT-4: 85783 06/04/2016 ([id number]) 49979 EST. P ATIENT, LEVEL IV Diagnosis: Type 2 diabetes mellitus with hyperglycemia[ICD10: E11.65] Diagnosis: Mixed hyperlipidemia[ICD10: E78.2] Diagnosis: Essential (primary) hypertension[ICD10: I10] Amy Cheung MD, [facility] CPT-4: 48490 03/26/2016 ([id number]) 16408 EST. P ATIENT, LEVEL III Diagnosis: Essential (primary) hypertension[ICD10: I10] Diagnosis: Adjustment disorder with mixed anxiety and depressed mood[ICD10: F43.23] Amy Cheung MD, [facility] CPT-4: 30466 11/23/2015 ([id number]) 51669 EST. P ATIENT, LEVEL IV Diagnosis: Type 2 diabetes mellitus with hyperglycemia[ICD10: E11.65] Diagnosis: Panic disorder [episodic paroxysmal anxiety] without agoraphobia[ICD10: F41.0] Diagnosis: Adjustment disorder with mixed anxiety and depressed mood[ICD10: F43.23] Diagnosis: Essential (primary) hypertension[ICD10: I10] Amy Cheung MD, [facility] CPT-4: 33464 10/14/2015 ([id number]) 02800 EST. P ATIENT, LEVEL IV Diagnosis: DIABETES TYPE II[ICD9: 250.00] Diagnosis: GENERALIZED ANXIETY DISEASE[ICD9: 300.02] Diagnosis: ESSENTIAL HYPERTENSION[ICD9: 401.9] Diagnosis: ESOPHAGEAL REFLUX[ICD9: 530.81] Amy Cheung MD, [facility] CPT-4: 92618 03/31/2015 ([id number]) 71933 EST. P ATIENT, LEVEL IV Diagnosis: DM W/O COMPLICATION TYPE II, UNCONTROLLED[ICD9: 250.02] Diagnosis: ESSENTIAL HYPERTENSION[ICD9: 401.9] Diagnosis: DEPRESSIVE DISORDER NEC[ICD9: 311] Diagnosis: GENERALIZED ANXIETY DISEASE[ICD9: 300.02] Amy Cheung MD, [facility] CPT-4: 31601 08/31/2014 ([id number]) 91342 EST. P ATIENT, LEVEL IV Diagnosis: ESSENTIAL HYPERTENSION[ICD9: 401.9] Diagnosis: DIABETES TYPE II[ICD9: 250.00] Diagnosis: Constipation - functional[ICD9: 564.09] Diagnosis: Abdominal pain[ICD9: 789.00] Amy Cheung MD, [facility] CPT-4: 78295 08/10/2014 ([id number]) 26162 EST. P ATIENT, LEVEL III Diagnosis: Flu vaccine need[ICD9: V04.81] Diagnosis: Neck pain[ICD9: 723.1] Diagnosis: Chronic allergic rhinitis[ICD9: 477.9] Amy Cheung MD, [facility] CPT-4: 99647 05/06/2014 ([id number]) 35789 EST. P ATIENT, LEVEL IV Diagnosis: DM W/O COMPLICATION TYPE II, UNCONTROLLED[ICD9: 250.02] Diagnosis: GENERALIZED ANXIETY DISEASE[ICD9: 300.02] Diagnosis: ESSENTIAL HYPERTENSION[ICD9: 401.9] Diagnosis: Neck pain[ICD9: 723.1] Amy Cheung MD, [facility] CPT-4: 01444 04/14/2014 ([id number]) 77779 EST. P ATIENT, LEVEL IV Diagnosis: ESSENTIAL HYPERTENSION[SNOMED: 23010906] Diagnosis: DIABETES TYPE II[SNOMED: 395742222] Diagnosis: Iliotibial band syndrome[ICD9: 728.89] Diagnosis: DEPRESSIVE DISORDER NEC[ICD9: 311] Diagnosis: GENERALIZED ANXIETY DISEASE[ICD9: 300.02] Amy Cheung MD, [facility] CPT-4: 48205 11/10/2013 ([id number]) 30129 EST. P ATIENT, LEVEL III Diagnosis: DIABETES TYPE II[SNOMED: 084337586] Amy Cheung MD, [facility] CPT- 4: 47409 07/14/2013 ([id number]) 62297 EST. P ATIENT, LEVEL IV Diagnosis: ESSENTIAL HYPERTENSION[SNOMED: 28614961] Diagnosis: DM W/O COMPLICATION TYPE II, UNCONTROLLED[SNOMED: 64221581] Amy Cheung MD, [facility] CPT-4: 54989 06/12/2013 ([id number]) 36277 EST. P ATIENT, LEVEL III Diagnosis: DIABETES TYPE II[SNOMED: 845863025] Amy Cheung MD, [facility] CPT- 4: 37922 05/20/2013 ([id number]) 04843 EST. P ATIENT, LEVEL IV Diagnosis: ESSENTIAL HYPERTENSION[SNOMED: 17600818] Diagnosis: HYPERLIPIDEMIA[ICD9: 272.4] Diagnosis: Type II diabetes mellitus, uncontrolled[SNOMED: 37792268] Amy Cheung MD, [facility] CPT-4: 21920 04/09/2013 ([id number]) 53743 EST. P ATIENT, LEVEL III Diagnosis: ESSENTIAL HYPERTENSION[SNOMED: 34037472] Diagnosis: ENCNTR LONG-RX USE NEC[ICD9: V58.69] Diagnosis: IMPACTED CERUMEN[ICD9: 380.4] Amy Chueng MD, [facility] CPT-4: 67753 01/26/2013 ([id number]) 14668 EST. P ATIENT, LEVEL IV Diagnosis: DIABETES TYPE II[SNOMED: 005962794] Diagnosis: ESSENTIAL HYPERTENSION[SNOMED: 80632298] Diagnosis: Polymyalgia[ICD9: 725] Amy Cheung MD, [facility] CPT-4: 91335 12/23/2012 ([id number]) 26698 EST. P ATIENT, LEVEL III Diagnosis: ACUTE MAXILLARY SINUSITIS[ICD9: 461.0] Diagnosis: COUGH[ICD9: 786.2] Amy Cheung MD, [facility] CPT-4: 35847 12/15/2012 ([id number]) 70963 EST. P ATIENT, LEVEL III Diagnosis: ANAL OR RECTAL PAIN[ICD9: 569.42] Diagnosis: Bruising[ICD9: 924.9] Diagnosis: Hip pain[ICD9: 719.45] Amy Cheung MD, [facility] CPT-4: 56436 10/22/2012 ([id number]) 63624 EST. P ATIENT, LEVEL IV Diagnosis: ESSENTIAL HYPERTENSION[SNOMED: 31151540] Diagnosis: DIABETES TYPE II[SNOMED: 922052645] Amy Cheung MD, [facility] CPT- 4: 10260 08/21/2012 ([id number]) 11116 EST. P ATIENT, LEVEL IV Diagnosis: DIABETES TYPE II[SNOMED: 070089128] Diagnosis: DEPRESSIVE DISORDER NEC[ICD9: 311] Amy Cheung MD [facility] CPT- 4: 10068 07/17/2012 ([id number]) 95747 EST. P ATIENT, LEVEL III Diagnosis: ESSENTIAL HYPERTENSION[SNOMED: 54588985] Diagnosis: DEPRESSIVE DISORDER NEC[ICD9: 311] Amy Cheung MD, [facility] CPT- 4: 92885 07/08/2012 [id number] EST. PATIENT, LEVEL IV Diagnosis: ESSENTIAL HYPERTENSION[SNOMED: 04962302] Diagnosis: DIABETES TYPE II[SNOMED: 476470818] Amy Cheung MD [facility] CPT- 4: 17884 06/09/2012 ([id number]) 66659 EST. P ATIENT, LEVEL III Diagnosis: Acute sinusitis[ICD9: 461.9] Diagnosis: FEVER NOS[ICD9: 780.60] Amy Cheung MD, [facility] CPT-4: 56381 02/12/2012 ([id number]) 67269 EST. P ATIENT, LEVEL III Diagnosis: Otalgia of both ears[ICD9: 388.70] Diagnosis: Hemorrhoids[ICD9: 455.6] Diagnosis: Rectal or anal pain[ICD9: 569.42] Amy Cheung MD [facility] CPT-4: 05079 02/05/2012 ([id number]) 31725 EST. P ATIENT, LEVEL IV Diagnosis: Dysuria[ICD9: 788.1] Diagnosis: ACUTE MAXILLARY SINUSITIS[ICD9: 461.0] Diagnosis: Allergic rhinitis[ICD9: 477.9] Amy Cheung MD, [facility] CPT-4: 75099 11/14/2011 ([id number]) 88696 EST. P ATIENT, LEVEL IV Diagnosis: DIABETES TYPE II[SNOMED: 865211024] Diagnosis: Cough[ICD9: 786.2] Diagnosis: FEVER NOS[ICD9: 780.60] Amy Cheung MD, [facility] CPT-4: 44660 10/08/2011 84028 EST. PATIENT, LEVEL IV Diagnosis: OTHER CONSTIPATION[ICD9: 564.09] Diagnosis: IMPACTED CERUMEN[ICD9: 380.4] Diagnosis: Recurrent sinusitis[ICD9: 473.9] Amy Cheung MD, [facility] CPT-4: 72747 08/28/2011 31969 EST. PATIENT, LEVEL IV Diagnosis: Neck pain, acute[ICD9: 723.1] Diagnosis: Cough[ICD9: 786.2] Diagnosis: Cerumen impaction[ICD9: 380.4] Amy Cheung MD, [facility] CPT-4: 87379 08/23/2011 47625 EST. PATIENT, LEVEL IV Diagnosis: ESSENTIAL HYPERTENSION[SNOMED: 61662436] Diagnosis: HYPERLIPIDEMIA[ICD9: 272.4] Diagnosis: DIABETES TYPE II[SNOMED: 642693253] Diagnosis: DEPRESSIVE DISORDER NEC[ICD9: 311] Diagnosis: 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[ICD9: 357.7] Amy Cheung MD, [facility] CPT-4: 87935 07/24/2011 63599 EST. PATIENT, LEVEL IV Diagnosis: Abdominal pain[ICD9: 789.00] Diagnosis: Hematochezia[ICD9: 578.1] Diagnosis: Back pain[ICD9: 724.5] Amy Cheung MD, [facility] CPT-4: 15612 06/19/2011 73352 EST. 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 Pt has been counseled as to the appropriate use of the medication. Pt to call if allergy symptoms are not controlled with th e medication. If using nasal spray, instructions as follows: Nasal spray- use twice daily, one spray per nostril twice daily, after 30 minutes, rinse out nose with saline spray.. Use opposite hand per nostril to spray in the nasal steroid allergy spray. Chronic Depression and anxiety - the pt has symptoms of chronic anxiety and depression that have been fairly well controlled since the last office visit. The pt has expected periods of exacerbation with abatement of the symptoms with change in situational exposure. No change in current medications. 02/16/2019 Patient Education: Patient Medication Summary Completed 02/16/2019 Patient Education: Depression Completed 02/16/2019 Patient Education: Diabetes Completed 02/16/2019 Visit Plan: BPPV - Benign Paroxysma l Positional Vertigo - discussed diagnosis with the patient, offered the pt the appropriate additional information in hand-out. Pt instructed in home exercises to help alleviate and prevent future recurrent episodes of vertigo. Pt informed that if symptoms worsen, call the office for further instructions/medication interventions.Allergies - chronic - recommended pt to use allergy medication as prescribed. Pt has been counseled as to the appropriate use of the medication. Pt to call if allergy symptoms are not controlled with the medication. If using nasal spray, instructions as follows: Nasal spray- use twice daily, one spray per nostril twice daily, after 30 minutes, rinse out nose with saline spray.. Use opposite hand per nostril to spray in the nasal steroid allergy spray. BPPV - Benign Paroxysmal Positional Vertigo - discussed diagnosis with the patient, offered the pt the appropriate additional information in hand-out. Pt instructed in home exercises to help alleviate and prevent future recurrent episodes of vertigo. Pt informed that if symptoms worsen, call the office for further instructions/medication interventions. Muscle spasms - will send RX 02/10/2019 Appointment[phone] [id number] (15 min) Moderate 02/10/2019 Patient Education: Patient Medication Summary Completed 02/10/2019 Visit Plan: Rib pain and thoracic s pine pain - status post fall at home - discussed with pt - need to check xrays - okay to keep using her back brace. Rx for muscle relaxer sent to patient's pharmacy. Kenalog shot given in clinic today. 12/23/2018 Appointment: Amy Cheung WPtel: [phone] [facility] (15 min) Moderate 12/23/2018 Patient Education: Patient Medication Summary Completed 12/23/2018 Care Plan: X-RAY EXAM THORAC SPINE 2VWS LOINC : 40041-9 Pending 12/23/2018 Visit Plan: Esophageal Reflux - the patient has been counseled against excessive intake of caffeine, spicy foods, peppermint, and cinnamon - all of which can exacerbate esophageal reflux. The patient is to take medications as prescribed and call the office if the symptoms are not improving. Advised pt to use lactaid pills 06/12/2018 Appointment: Amy hCeung WPtel: [phone] [phone] (15 min) Moderate 06/12/2018 Appointment: Riya Sheikh WPtel: [phone] [phone] [facility] - Annual Wellness Visit 06/12/2018 Patient Education: Patient Medication Summary Completed 06/12/2018 Visit Plan: Esophageal Reflux - the patient has been counseled against excessive intake of caffeine, spicy foods, peppermint, and cinnamon - all of which can exacerbate esophageal reflux. The patient is to take medications as prescribed and call the office if the symptoms are not improving. Kwgog-[id number] injection today in the office -start claritin 10mg daily 05/26/2018 Appointment: (15 min) Moderate 05/26/2018 Patient Education: Patient Medication Summary Completed 05/26/2018 Visit Plan: Hypertension - well con trolled - continue with current medications, continue with no added salt diet. Pt has been encouraged to exercise daily. The pt has been advised to call the office if there are any acute concerns about change in blood pressure readings at home. Pt reports daytime sleepiness, observed apneas - recommended sleep study to be done. Diabetes Mellitus - controlled - per recent FSBS reports. I have recommended for the patient to have follow up labs prior to the next office visit. The patient has been instructed to continue with current medications as previously directed, continue with regular FSBS monitoring to assure continued control of diabetes. Pt to call for any acute concerns, complaints, or if the blood glucose readings are starting to become less controlled. 04/01/2018 Appointment: [phone] [facility] (15 min) Moderate 04/01/2018 Patient Education: Patient Medication Summary Completed 04/01/2018 Patient Education: Patient Medication Summary Completed 03/31/2018 Appointment: Amy Cheung WPtel: [phone] [facility] (15 min) Moderate 01/15/2018 Visit Plan: Diabetes Mellitus - Unc ontrolled - per recent FSBS reports. I have recommended for the patient to have follow up labs prior to the next office visit. The patient has been instructed to continue with current medications as previously directed, continue with regular FSBS monitoring to assure continued control of diabetes. Pt to call for any acute concerns, complaints, or if the blood glucose readings are starting to become less controlled. I have recommended for the patient to follow more strictly to the diabetic diet as discussed in clinic to allow for greater blood glucose control. Increase the metformin to 1.5 tablets twice daily. Hypertension - well controlled - continue with current medications, continue with no added salt diet. Pt has been encouraged to exercise daily. The pt has been advised to call the office if there are any acute concerns about change in blood pressure readings at home. 11/25/2017 Appointment: [phone] (15 min) Moderate 11/25/2017 Patient Education: Patient Medication Summary Completed 11/25/2017 Patient Education: Patient Medication Summary Completed 11/22/2017 Visit Plan: Diabetes Mellitus - con trolled - per recent FSBS reports. I have recommended for the patient to have follow up labs prior to the next office visit. The patient has been instructed to continue with current medications as previously directed, continue with regular FSBS monitoring to assure continued control of diabetes. Pt to call for any acute concerns, complaints, or if the blood glucose readings are starting to become less controlled. Hypertension - well controlled - continue with current medications, continue with no added salt diet. Pt has been encouraged to exercise daily. The pt has been advised to call the office if there are any acute concerns about change in blood pressure readings at home. Dry mouth - supsect candidal stomatitis - continue with plans for nystatin 09/18/2017 Appointment: [facility]el[phone] [facility] (15 min) Moderate 09/18/2017 Patient Education: Patient Medication Summary Completed 09/18/2017 Visit Plan: Diabetes Mellitus - con meredith - per recent FSBS reports. I have recommended for the patient to have follow up labs prior to the next office visit. The patient has been instructed to continue with current medications as previously directed, continue with regular FSBS monitoring to assure continued control of diabetes. Pt to call for any acute concerns, complaints, or if the blood glucose readings are starting to become less controlled. Hypertension - well controlled - continue with current medications, continue with no added salt diet. Pt has been encouraged to exercise daily. The pt has been advised to call the office if there are any acute concerns about change in blood pressure readings at home. Hyperlipidemia - pt has been counseled about appropriate diet, exercise, and need for low fat food choices. I have discussed the need for the patient to take medications as prescribed. If the patient has negative side effects from the medication, they are to CALL the office and not abruptly discontinue the medication without discussion with a practitioner in the office. We will check labs in 3-6 months for follow up on the patient's chronic medical problem and to assure normal liver response to me dications. prevnar and flu shot today 05/02/2017 Appointment: Amy Cheung WPtel: [phone] [facility] (15 min) Moderate 05/02/2017 Patient Education: Patient Medication Summary Completed 05/02/2017 Appointment: [facility]el[phone] [facility] (15 min) Moderate 04/15/2017 Visit Plan: Thrush-discussed natura l and expected course of this diagnosis and to alert me if symptoms do not follow expected course, or if any worse. RX sent to patient's pharmacy. Patient verbalized understanding of plan. 03/29/2017 Appointment: Riya Sheikh WPtel: [phone] [id number] [place] (30 min) Complex 03/29/2017 Patient Education: Patient Medication Summary Completed 03/29/2017 Patient Education: Obesity Completed 03/29/2017 Appointment: [facility]el: [phone] [facility] (15 min) Moderate 03/14/2017 Visit Plan: Diabetes Mellitus - eleuterio harper - per recent FSBS reports. I have recommended for the patient to have follow up labs prior to the next office visit. The patient has been instructed to continue with current medications as previously directed, continue with regular FSBS monitoring to assure continued control of diabetes. Pt to call for any acute concerns, complaints, or if the blood glucose readings are starting to become less controlled. Hypertension - well controlled - continue with current medications, continue with no added salt diet. Pt has been encouraged to exercise daily. The pt has been advised to call the office if there are any acute concerns about change in blood pressure readings at home. 11/15/2016 Appointment: [facility]Ptel: [phone] [facility] (15 min) Moderate 11/15/2016 Patient Education: Patient Medication Summary Completed 11/15/2016 Appointment: Amy Cheung WPtel: [phone] [facility] (15 min) Moderate 11/07/2016 Visit Plan: Fatigue, malaise, diaph oresis, weakness - will check labs, will send for IV fluids, pt is to notify clinic if symptoms do not improve, if they worsen, or with any questions or concerns. Hypertension - The patient has been counseled to cut back on salt in diet for a no added salt diet, low fat diet, start an exercise program with low weight bearing exercises and higher aerobic activity for heart health. The patient is to check blood pressure readings as an outpatient and either fax, call, or email the readings to the office next week for practitioner to review. The pt is to call for acute concerns. Diabetes Mellitus - I have recommended for the patient to have follow up labs prior to the next office visit. The patient has been instructed to continue with current medications as previously directed, continue with regular FSBS monitoring to assure continued control of diabetes. Pt to call for any acute concerns, complaints, or if the blood glucose readings are starting to become less controlled. I have recommended for the patient to follow more strictly to the diabetic diet as discussed in clinic to allow for greater blood glucose control. 11/06/2016 Appointment[phone] (30 min) Complex 11/06/2016 Patient Education: Patient Medication Summary Completed 11/06/2016 Patient Education: Patient Medication Summary Completed 09/19/2016 Patient Education: Patient Medication Summary Completed 08/22/2016 Care Plan: Comp Metabolic Pending 08/22/2016 Care Plan: %Hba1C she can have drawn anytime after 09/04/16 LOINC : 64176-6 Pending 08/22/2016 Visit Plan: Diabetes Mellitus - imp roved control - per recent FSBS reports. I have recommended for the patient to have follow up labs prior to the next office visit. The patient has been instructed to continue with current medications as previously directed, continue with regular FSBS monitoring to assure continued control of diabetes. Pt to call for any acute concerns, complaints, or if the blood glucose readings are starting to become less controlled. No new medications or medication changes today - recommended pt to keep on the Trulicity and monitor FSBS at home, bring in copy to clinic. 08/01/2016 Appointment: Amy Cheung WPtel: [phone] [facility] (15 min) Moderate 08/01/2016 Patient Education: Patient Medication Summary Completed 08/01/2016 Appointment: Amy Cheung WPtel: [facility] (15 min) Moderate 07/09/2016 Visit Plan: Diabetes Mellitus - con trolled - per recent FSBS reports. I have recommended for the patient to have follow up labs prior to the next office visit. The patient has been instructed to continue with current medications as previously directed, continue with regular FSBS monitoring to assure continued control of diabetes. Pt to call for any acute concerns, complaints, or if the blood glucose readings are starting to become less controlled. Gastroparesis - continue with reglan for GI motility 07/02/2016 Appointment: Amy Cheung WPtel: [phone] [facility] (15 min) Moderate 07/02/2016 Patient Education: Patient Medication Summary Completed 07/02/2016 Patient Education: Obesity Completed 07/02/2016 Visit Plan: Diabetes Mellitus - con trolled - per recent FSBS reports. I have recommended for the patient to have follow up labs prior to the next office visit. The patient has been instructed to continue with current medications as previously directed, continue with regular FSBS monitoring to assure continued control of diabetes. Pt to call for any acute concerns, complaints, or if the blood glucose readings are starting to become less controlled. Hypothyroidism - pt with chronic hypothyroidism, continue with current medication, will monitor pt to signs or symptoms of lack of adequate supplementation. Pt is to continue with current dose of medication unless directed otherwise. Check labs at regular intervals wither q 3 months or q 6 months based on previous levels of control. 06/04/2016 Appointment: Amy Cheung WPtel: [phone] [facility] (15 min) Moderate 06/04/2016 Patient Education: Patient Medication Summary Completed 06/04/2016 Visit Plan: Diabetes Mellitus - Unc ontrolled - per recent FSBS reports. I have recommended for the patient to have follow up labs prior to the next office visit. The patient has been instructed to continue with current medications as previously directed, continue with regular FSBS monitoring to assure continued control of diabetes. Pt to call for any acute concerns, complaints, or if the blood glucose readings are starting to become less controlled. I have recommended for the patient to follow more strictly to the diabetic diet as discussed in clinic to allow for greater blood glucose control. Increase Trulicity from 0.75mg dose to 1.5mg dose. Hypertension - well controlled - continue with current medications, continue with no added salt diet. Pt has been encouraged to exercise daily. The pt has been advised to call the office if there are any acute concerns about change in blood pressure readings at home. Hyperlipidemia - pt has been counseled about appropriate diet, exercise, and need for low fat food choices. I have discussed the need for the patient to take medications as prescribed. If the patient has negative side effects from the medication, they are to CALL the office and not abruptly discontinue the medication without discussion with a practitioner in the office. We will check labs in 3-6 months for follow up on the patient's chronic medical problem and to assure normal liver response to medications. 03/26/2016 Appointment: Amy Cheung WPtel: [phone] [facility] [place] (15 min) Moderate 03/26/2016 Patient Education: Patient Medication Summary Completed 03/26/2016 Patient Education: Obesity Completed 03/26/2016 Patient Education: Patient Medication Summary Completed 03/09/2016 Visit Plan: Hypertension - well con trolled - continue with current medications, continue with no added salt diet. Pt has been encouraged to exercise daily. The pt has been advised to call the office if there are any acute concerns about change in blood pressure readings at home. Depression and Anxiety - due to of spouse - continue with current treatment. 11/23/2015 Patient Education: Patient Medication Summary Completed 11/23/2015 Patient Education: Obesity Completed 11/23/2015 Patient Education: Hypertension Completed 11/23/2015 Appointment: (30 min) Complex 11/11/2015 Patient Education: Patient Medication Summary Completed 10/18/2015 Visit Plan: Hypertension - well con trolled - continue with current medications, continue with no added salt diet. Pt has been encouraged to exercise daily. The pt has been advised to call the office if there are any acute concerns about change in blood pressure readings at home. Diabetes Mellitus - controlled - per recent FSBS reports. I have recommended for the patient to have follow up labs prior to the next office visit. The patient has been instructed to continue with current medications as previously directed, continue with regular FSBS monitoring to assure continued control of diabetes. Pt to call for any acute concerns, complaints, or if the blood glucose readings are starting to become less controlled. Depression and anxiety - pt has recently lost spouse to cancer - she has anxiety and depression chronically - but she reports that she feels stable. 10/14/2015 Patient Education: Patient Medication Summary Completed 10/14/2015 Patient Education: Hypertension Completed 10/14/2015 Appointment: Amy Cheung WPtel: [phone] [facility] [place] (15 min) Moderate 10/13/2015 Appointment: Amy Cheung WPtel: [phone] [facility] [place] (15 min) Moderate 05/09/2015 Visit Plan: Diabetes Mellitus - con trolled - per recent FSBS reports. I have recommended for the patient to have follow up labs prior to the next office visit. The patient has been instructed to continue with current medications as previously directed, continue with regular FSBS monitoring to assure continued control of diabetes. Pt to call for any acute concerns, complaints, or if the blood glucose readings are starting to become less controlled. Hypertension - well controlled - continue with current medications, continue with no added salt diet. Pt has been encouraged to exercise daily. The pt has been advised to call the office if there are any acute concerns about change in blood pressure readings at home. Uncontrolled reflux - with regurgitation and dyspnea - pt to increase the nexium to twice daily. Anxiety and Depression - due to situation with her having esophageal cancer. 03/31/2015 Appointment: Amy Cheung WPtel: [phone] [facility] (15 min) Moderate 03/31/2015 Patient Education: Patient Medication Summary Completed 03/31/2015 Patient Education: Hypertension Completed 03/31/2015 Appointment: (15 min) Moderate 02/11/2015 Appointment: Amy Cheung WPtel: [phone] [facility] Sick 09/29/2014 Visit Plan: Diabetes Mellitus - con trolled - per recent FSBS reports. I have recommended for the patient to have follow up labs prior to the next office visit. The patient has been instructed to continue with current medications as previously directed, continue with regular FSBS monitoring to assure continued control of diabetes. Pt to call for any acute concerns, complaints, or if the blood glucose readings are starting to become less controlled. Hypertension - well controlled - continue with current medications, continue with no added salt diet. Pt has been encouraged to exercise daily. The pt has been advised to call the office if there are any acute concerns about change in blood pressure readings at home. Anxiety/Depression - pt has recently had a close family friend pass away and she was at the house almost every day x 9 months. 08/31/2014 Appointment: Amy Cheung WPtel: [phone] [facility] [place] Follow up 08/31/2014 Patient Education: Patient Medication Summary Completed 08/31/2014 Patient Education: Hypertension Completed 08/31/2014 Visit Plan: Hypertension - well con trolled - continue with current medications, continue with no added salt diet. Pt has been encouraged to exercise daily. The pt has been advised to call the office if there are any acute concerns about change in blood pressure readings at home. Diabetes Mellitus - controlled - per recent FSBS reports. I have recommended for the patient to have follow up labs prior to the next office visit. The patient has been instructed to continue with current medications as previously directed, continue with regular FSBS monitoring to assure continued control of diabetes. Pt to call for any acute concerns, complaints, or if the blood glucose readings are starting to become less controlled. Constipation - uncontrolled - I have discussed with the patient the need for adequate fiber and water intake to facilitate soft, easily passed stools. The pt noted understanding of our conversation. I have given the patient a recipe for "power pudding" - equal parts, bran flakes, prune juice, and apple sauce. The pt is to call if symptoms not improved on this regimen. 08/10/2014 Patient Education: Patient Medication Summary Completed 08/10/2014 Patient Education: Hypertension Completed 08/10/2014 Appointment: Amy Cheung WPtel: [address] [place], [place] [id number] Follow up 05/10/2014 Visit Plan: Allergies - chronic - r ecommended pt to use allergy medication as prescribed. Pt has been counseled as to the appropriate use of the medication. Pt to call if allergy symptoms are not controlled with th e medication. If using nasal spray, instructions as follows: Nasal spray- use twice daily, one spray per nostril twice daily, after 30 minutes, rinse out nose with saline spray.. Use opposite hand per nostril to spray in the nasal steroid allergy spray. pt wants written rx for claritin and singulair, Neck pain - MRI to be ordered. 05/06/2014 Appointment: Amy Cheung WPtel: [facility]2 [facility] [place] Follow up 05/06/2014 Patient Education: Patient Medication Summary Completed 05/06/2014 Patient Education: .Cervicalgia Neck Pain Completed 05/06/2014 Appointment: Amy Cheung WPtel: [phone] [facility] [place] Follow up 05/05/2014 Visit Plan: Hypertension - well con trolled - continue with current medications, continue with no added salt diet. Pt has been encouraged to exercise daily. The pt has been advised to call the office if there are any acute concerns about change in blood pressure readings at home. Diabetes Mellitus - controlled - per recent FSBS reports. I have recommended for the patient to have follow up labs prior to the next office visit. The patient has been instructed to continue with current medications as previously directed, continue with regular FSBS monitoring to assure continued control of diabetes. Pt to call for any acute concerns, complaints, or if the blood glucose readings are starting to become less controlled. Anxiety - pt has been taking oxazepam - prn - feels as if she is doing well - pt is to continue with prn use. Neck pain - recommended pt to see Dr. García for evaluation of the neck. 04/14/2014 Appointment: Amy Cheung WPtel: [phone] [facility] Follow up 04/14/2014 Patient Education: Patient Medication Summary Completed 04/14/2014 Patient Education: Hypertension Completed 04/14/2014 Patient Education: .Cervicalgia Neck Pain Completed 04/14/2014 Visit Plan: Hypertension - well con trolled - continue with current medications, continue with no added salt diet. Pt has been encouraged to exercise daily. The pt has been advised to call the office if there are any acute concerns about change in blood pressure readings at home. Diabetes Mellitus - controlled - per recent FSBS reports. I have recommended for the patient to have follow up labs prior to the next office visit. The patient has been instructed to continue with current medications as previously directed, continue with regular FSBS monitoring to assure continued control of diabetes. Pt to call for any acute concerns, complaints, or if the blood glucose readings are starting to become less controlled. Anxiety - pt has been taking oxazepam - prn - feels as if she is doing well - pt is to continue with prn use. Ilitibial band syndrome- recommended use of antiinflammatories and pt given handout on Ilitibial band exercises. 11/10/2013 Appointment: Amy Cheung WPtel: [phone] [facility] Other 11/10/2013 Patient Education: Patient Medication Summary Completed 11/10/2013 Patient Education: Hypertension Completed 11/10/2013 Visit Plan: Diabetes Mellitus - con trolled - per recent FSBS reports. I have recommended for the patient to have follow up labs prior to the next office visit. The patient has been instructed to continue with current medications as previously directed, continue with regular FSBS monitoring to assure continued control of diabetes. Pt to call for any acute concerns, complaints, or if the blood glucose readings are starting to become less controlled. Pt with improved control on the bydureon - monitor symptoms. 07/14/2013 Appointment: Amy Cheung WPtel: [facility]5 [facility] Other 07/14/2013 Patient Education: Patient Medication Summary Completed 07/14/2013 Appointment: Riya Sheikh WPtel: [facility]5 [phone] Follow up 07/13/2013 Visit Plan: Hypertension - uncontro lled - the patient's medications have been modified as documented in the visit note. The patient has been counseled to cut back on salt in diet for a no added salt diet, low fat d iet, start an exercise program with low weight bearing exercises and higher aerobic activity for heart health. The patient is to check blood pressure readings as an outpatient and either fax, call, or email the readings to the office next week for practicioner to review. The pt is to call for acute concerns. Diabetes Mellitus - Uncontrolled - per recent FSBS reports. I have recommended for the patient to have follow up labs prior to the next office visit. The patient has been instructed to continue with current medications as previously directed, continue with regular FSBS monitoring to assure continued control of diabetes. Pt to call for any acute concerns, complaints, or if the blood glucose readings are starting to become less controlled. I have recommended for the patient to follow more strictly to the diabetic diet as discussed in clinic to allow for greater blood glucose control. 06/12/2013 Appointment: Riya Sheikh WPtel: [phone] [place] 06/12/2013 Patient Education: Patient Medication Summary Completed 06/12/2013 Patient Education: Hypertension Completed 06/12/2013 Visit Plan: Diabetes Mellitus - Unc ontrolled - per recent FSBS reports. I have recommended for the patient to have follow up labs prior to the next office visit. The patient has been instructed to continue with current medications as previously directed, continue with regular FSBS monitoring to assure continued control of diabetes. Pt to call for any acute concerns, complaints, or if the blood glucose readings are starting to become less controlled. I have recommended for the patient to follow more strictly to the diabetic diet as discussed in clinic to allow for greater blood glucose control. pt to use bydureon 1 injection every week - samples given to patient. 05/20/2013 Appointment: Amy Cheung WPtel: [facility]5 [facility] Follow up 05/20/2013 Patient Education: Patient Medication Summary Completed 05/20/2013 Appointment: Amy Cheung WPtel: [facility]5 [facility] Follow up 05/07/2013 Appointment: Amy Cheung WPtel: [facility]5 [facility] Lab Draw 04/27/2013 Patient Education: Patient Medication Summary Completed 04/27/2013 Visit Plan: Hyperlipidemia - pt has been counseled about appropriate diet, exercise, and need for low fat food choices. I have discussed the need for the patient to take medications as prescribed. If the patient has negative side effects from the medication, they are to CALL the office and not abruptly discontinue the medication without discussion with a practicioner in the office. We will check labs in 3-6 months for follow up on the patient's chronic medical problem and to assure normal liver response to medications. Pt complaining of aching and fatigue - she thinks it may be related to lipitor. I have recommended holding the lipitor x 4 days, then restarting the lipitor to 10mg every other day. I will send a copy of this note to her Web Knitter - Dr. Kraus as he will ultimately be managing her lipid disease. Hypertension - well controlled - continue with current medications, continue with no added salt diet. Pt has been encouraged to exercise daily. The pt has been advised to call the office if there are any acute concerns about change in blood pressure readings at home. Diabetes Mellitus - Uncontrolled - per recent FSBS reports. I have recommended for the patient to have follow up labs prior to the next office visit. The patient has been instructed to continue with current medications as previously directed, continue with regular FSBS monitoring to assure continued control of diabetes. Pt to call for any acute concerns, complaints, or if the blood glucose readings are starting to become less controlled. I have recommended for the patient to follow more strictly to the diabetic diet as discussed in clinic to allow for greater blood glucose control. Glyburide restarted. 04/09/2013 Appointment: Amy Cheung WPtel: [facility]5 [id number] Follow up 04/09/2013 Patient Education: Patient Medication Summary Completed 04/09/2013 Patient Education: Hypertension Completed 04/09/2013 Appointment: Amy Cheung WPtel: [address] [place], [place] [id number] Follow up 03/30/2013 Visit Plan: Hypertension - well con trolled - continue with current medications, except for lisinopril ( due to cough) will start on cozaar 25mg daily, and continue with no added salt diet. Pt has been encouraged to exercise daily. The pt has been advised to call the office if there are any acute concerns about change in blood pressure readings at home. Cough - due to lisinopril, will have pt stop the medication and start on cozaar 25mg daily. Cerumen impaction - pt had cerumen removal with warm water today 01/26/2013 Appointment: Amy Cheung WPtel: [id number] [id number] Other 01/26/2013 Patient Education: Patient Medication Summary Completed 01/26/2013 Patient Education: Hypertension Completed 01/26/2013 Visit Plan: Diabetes Mellitus - con trolled - per recent FSBS reports. I have recommended for the patient to have follow up labs prior to the next office visit. The patient has been instructed to continue with current medications as previously directed, continue with regular FSBS monitoring to assure continued control of diabetes. Pt to call for any acute concerns, complaints, or if the blood glucose readings are starting to become less controlled. PMR - pt has been counseled about healthy diet, exercise, and adequate rest in the evening/nighttime for optimal health and improvement of the symptoms. Pt is to use medication for pain control and symptom management sparingly. Hypertension - well controlled - continue with current medications, continue with no added salt diet. Pt has been encouraged to exercise daily. The pt has been advised to call the office if there are any acute concerns about change in blood pressure readings at home. 12/23/2012 Appointment: Amy Cheung WPtel: [address] [place], [place] [id number] Follow up 12/23/2012 Patient Education: Patient Medication Summary Completed 12/23/2012 Patient Education: Hypertension Completed 12/23/2012 Visit Plan: Sinusitis - Pt has acut e infection - pain in face, maxillary region, Pt informed to use decongestant, RX given to patient, sinus rinses also recommended. Call if symptoms do not show improvement. 12/15/2012 Appointment: Amy Cheung WPtel: [address] [place], [place] [phone] Sick 12/15/2012 Patient Education: Patient Medication Summary Completed 12/15/2012 Visit Plan: Bruising and pain post fall- with hip pain - recommended pt to have xray of hips and pelvis and lumbar spine as she is having the pain in her hips post fall. 10/22/2012 Appointment: Amy Cheung WPtel: [address] [place], [place] [id number] Other 10/22/2012 Patient Education: Patient Medication Summary Completed 10/22/2012 Appointment: Amy Cheung WPtel: [address] [place], [place] [phone] Follow up 09/30/2012 Visit Plan: Hypertension - well con trolled - continue with current medications, continue with no added salt diet. Pt has been encouraged to exercise daily. The pt has been advised to call the office if there are any acute concerns about change in blood pressure readings at home. Diabetes Mellitus - controlled - per recent FSBS reports. I have recommended for the patient to have follow up labs prior to the next office visit. The patient has been instructed to continue with current medications as previously directed, continue with regular FSBS monitoring to assure continued control of diabetes. Pt to call for any acute concerns, complaints, or if the blood glucose readings are starting to become less controlled. 08/21/2012 Appointment: [facility] Follow [facility] 08/21/2012 Patient Education: Patient Medication Summary Completed 08/21/2012 Patient Education: Hypertension Completed 08/21/2012 Visit Plan: Diabetes Mellitus - con galileolled - per recent FSBS reports. I have recommended for the patient to have follow up labs prior to the next office visit. The patient has been instructed to continue with current medications as previously directed, continue with regular FSBS monitoring to assure continued control of diabetes. Pt to call for any acute concerns, complaints, or if the blood glucose readings are starting to become less controlled. Depression - spousal dysfunction - recommended for Pat to approach Angel about sounseling and give him space to start improving his behaviors so that she can have an environment in the medical centerh they can grow and change together. No change to Pat's medications today. Time based documentation -I spent over 40 minutes with the patient in discussion of the disease process, expected course, and overall prognosis for the patient's disease state. The patient/family expressed understanding. 07/17/2012 Appointment: [facility]el[phone] [facility] Follow up 07/17/2012 Patient Education: Patient Medication Summary Completed 07/17/2012 Visit Plan: Hypertension - well con galileolled - continue with current medications, continue with no added salt diet. Pt has been encouraged to exercise daily. The pt has been advised to call the office if there are any acute concerns about change in blood pressure readings at home. Depression - pt states that she has a lot of "stress" but did not have time to discuss all of the issues today. 07/08/2012 Appointment: Amy Cheung WPtel: [phone] [facility] [facility] 07/08/2012 Patient Education: Patient Medication Summary Completed 07/08/2012 Patient Education: Hypertension Completed 07/08/2012 Visit Plan: Diabetes Mellitus - eleuterio gurrolabibigerardo - per recent FSBS reports. I have recommended for the patient to have follow up labs prior to the next office visit. The patient has been instructed to continue with current medications as previously directed, continue with regular FSBS monitoring to assure continued control of diabetes. Pt to call for any acute concerns, complaints, or if the blood glucose readings are starting to become less controlled. Hypertension - well controlled - continue with current medications, continue with no added salt diet. Pt has been encouraged to exercise daily. The pt has been advised to call the office if there are any acute concerns about change in blood pressure readings at home. Hyperlipidemia - pt needs to have labs checked. 06/09/2012 Appointment: Amy Cheung WPtel: [address] [place] [address] Other 06/09/2012 Patient Education: Patient Medication Summary Completed 06/09/2012 Patient Education: High Blood Pressure: Essential Hypertension Completed 06/09/2012 Visit Plan: Sinusitis - Pt has acut e infection - pain in face, maxillary region, Pt informed to use decongestant, RX given to patient, sinus rinses also recommended. Call if symptoms do not show improvement. 02/12/2012 Appointment: Amy Cheung WPtel: [address] [place] [address] Other 02/12/2012 Patient Education: Patient Medication Summary Completed 02/12/2012 Visit Plan: Sinusitis - Pt has acut e infection - pain in face, maxillary region, Pt informed to use decongestant, RX given to patient, sinus rinses also recommended. Call if symptoms do not show improvement.ciprofl oxacin 500 mg bid x10 days Recommended pt to talk to her surgeon about her hemorroids - the bands appear to be gone, but the hemorrhoid is enlarged and painful. She is to continue to use the hemorrhoid cream as directed by ehr surgeon and I have recommended that she us a pad over the hemorrhoid to keep the medication in place. 02/05/2012 Appointment: Amy Cheung WPtel: [address] [place] [address] [place] Other 02/05/2012 Patient Education: Patient Medication Summary Completed 02/05/2012 Visit Plan: Sinusitis - Pt has acut e infection - pain in face, maxillary region, Pt informed to use decongestant, RX given to patient, sinus rinses also recommended. Call if symptoms do not show improvement. DX sin usitis - discussed expected course with the patient, pt advised to call for worsening symptoms, or lack of improvement on prescribed treatment course. Singulair samples-10mg po daily. Call if you allergy symptosm do not improve, or if any worse. Check your thyroid labs at [facility]-we will call you with the results. Allergies - chronic - recommended pt to use allergy medication as prescribed. Pt has been counseled as the the appropriate use of the medication. Pt to call if allergy symptoms are not controlled with the medication. Dysuria - UA negative 11/14/2011 Appointment: Amy Cheung WPtel: [address] [place] [address] [place] Other 11/14/2011 Appointment: Amy Cheung WPtel: [address] [place] [address] [place] Other 11/14/2011 Patient Education: Patient Medication Summary Completed 11/14/2011 Visit Plan: Diabetes Mellitus - con galileolled - per recent FSBS reports. I have recommended for the patient to have follow up labs prior to the next office visit. The patient has been instructed to continue with current medications as previously directed, continue with regular FSBS monitoring to assure continued control of diabetes. Pt to call for any acute concerns, complaints, or if the blood glucose readings are starting to become less controlled. URI/FLU - sent pt for Influenza swab and will call out RX for appropriate treatment, if flu is +, will call out tamiflu, if not +, then will call out antibiotics. Cough - RX for phenergan with codeine given to patient today. 10/08/2011 Appointment: Amy Cheung WPtel: [address] [place] [address] Other 10/08/2011 Patient Education: Patient Medication Summary Completed 10/08/2011 Visit Plan: Constipation - uncontro lled - I have discussed with the patient the need for adequate fiber and water intake to facilitate soft, easily passed stools. The pt noted understanding of our conversation. Pt advised to start on benefiber daily, if it does not improve, then start on miralax. Pt has been advised that due to her current severe constipation, she may take colace for thr next two days to liberate her constipation. Persistance sinusitis- levaquin rx called for pt. Cerumen Impaction - The impacted cerumen was removed with the use of the ear currette. The patient tolerated the procedure without incident and had improvement in hearing. The wax was removed by the practicioner due to the wax being more complicated to remove, and staff was needed to assit the removal of the wax by holding the ear, and keepig patient stabilized during the removal process. 08/28/2011 Appointment: Amy Cheung WPtel: [address] [place], [place] [id number] Other 08/28/2011 Patient Education: Patient Medication Summary Completed 08/28/2011 Visit Plan: Sinusitis - Pt has acut e infection - pain in face, maxillary region, Pt informed to use decongestant, RX given to patient, sinus rinses also recommended. Call if symptoms do not show improvement. Pt has been advised to start on mucinex twice daily - for the first 3 days take 1200mg twice daily, then back down to 600mg twice daily. Pt is to use vaseline in the nose to keep it moist - for the next 5 days, then use as needed if the nose is dry and bleeding when blowing the nose. Cerumen impaction -too dry to be removed at this time. Pt has been advised to use sweet oil in the ears at bedtime nightly for the next week, then will attempt to remove the cerumen at her appt next week. Cough - use prn cough medication. 08/23/2011 Patient Education: Patient Medication Summary Completed 08/23/2011 Visit Plan: Hypertension - well con trolled - continue with current medications, continue with no added salt diet. Pt has been encouraged to exercise daily. The pt has been advised to call the office if there are any acute concerns about change in blood pressure readings at home. Hyperlipidemia - pt has been counseled about appropriate diet, exercise, and need for low fat food choices. I have discussed the need for the patient to take medications as prescribed. If the patient has negative side effects from the medication, they are to CALL the office and not abruptly discontinue the medication without discussion with a practicioner in the office. We will check labs in 3-6 months for follow up on the patient's chronic medical problem and to assure normal liver response to medications. PT HAS BEEN INSTRUCTED TO RESTART HER LIPITOR AND TRICOR. PT IS ALSO TO RESTART HER Fish oil. Depression/ Anxiety / Peripheral Neuropathy - I AGREE WITH THE ONCOLOGIST THAT DECREASING THE EFFEXOR TO OFF AND DECREASING THE NEURONTIN TO OFF IS A GOOD IDEA IF WE CAN COUPLE THAT WITH STARTING ON A MEDICATION THAT WILL HAVE DUAL EFFECTS ON THE DIFFERENT DISEASES. DM - controlled per pt report - continue to monitor - bring in readings. 07/24/2011 Appointment: Amy Cheung WPtel: [facility] [address] Other 07/24/2011 Patient Education: Patient Medication Summary Completed 07/24/2011 Patient Education: High Blood Pressure: Essential Hypertension Completed 07/24/2011 Visit Plan: Abdominal pain - discus sed need to keep stool soft, keep cleared of feces to prevent constipation and large bowel movements which may be leading to anal fissures. Hematochezia - discussed investigation plan with the patient, she may need to see surgeon for consideration of colonoscopy or other procedure. Back pain - UA negative - recommended exercises and heat to lower back. 06/19/2011 Appointment: Amy Cheung WPtel: [facility] Other 06/19/2011 Patient Education: Patient Medication Summary Completed 06/19/2011 Visit Plan: Diabetes Mellitus - con trolled - per recent FSBS reports. I have recommended for the patient to have follow up labs prior to the next office visit. The patient has been instructed to continue with current medications as previously directed, continue with regular FSBS monitoring to assure continued control of diabetes. Pt to call for any acute concerns, complaints, or if the blood glucose readings are starting to become less controlled. dEPRESSION AND Anxiety - the patient has fairly well controlled depression and anxiety and will continue to benefit from an SSRI on a daily basis to attempt control of the symptoms of anxiety (tachycardia, overwhelming sensations, stress, insomnia, etc). I also believe that the patient will benefit from very low dose of prn benzodiazepine. Pt is aware of the risks and benefits of treament with the above medications. Peripheral neuropathy- continue with gabapentin, may increase dose to three times a day, then increase to two pills bid and may increase up to 300mg tid if needed for neuropathic symptoms. 06/05/2011 Appointment: Skye Amy WPtel: [id number] Other 06/05/2011 Patient Education: Patient Medication Summary Completed 06/05/2011 Instructions Comment . Sinusitis - Pt has acute infection - pain in face, maxillary region, Pt informed to use decongestant, RX given to patient, sinus rinses also recommended. Call if symptoms do not show improvement. . Hypertension - wel l controlled - continue with current medications, continue with no added salt diet. Pt has been encouraged to exercise daily. The pt has been advised to call the office if there are any acute concerns about change in blood pressure readings at home. Depression - pt states that she has a lot of "stress" but did not have time to discuss all of the issues today. . Hypertension - wel l controlled - continue with current medications, continue with no added salt diet. Pt has been encouraged to exercise daily. The pt has been advised to call the office if there are any acute concerns about change in blood pressure readings at home. Diabetes Mellitus - controlled - per recent FSBS reports. I have recommended for the patient to have follow up labs prior to the next office visit. The patient has been instructed to continue with current medications as previously directed, continue with regular FSBS monitoring to assure continued control of diabetes. Pt to call for any acute concerns, complaints, or if the blood glucose readings are starting to become less controlled. . Thrush-discussed n atural and expected course of this diagnosis and to alert me if symptoms do not follow expected course, or if any worse. RX sent to patient's pharmacy. Patient verbalized understanding of plan. . Diabetes Mellitus - controlled - per recent FSBS reports. I have recommended for the patient to have follow up labs prior to the next office visit. The patient has been instructed to continue with current medications as previously directed, continue with regular FSBS monitoring to assure continued control of diabetes. Pt to call for any acute concerns, complaints, or if the blood glucose readings are starting to become less controlled. URI/FLU - sent pt for Influenza swab and will call out RX for appropriate treatment, if flu is +, will call out tamiflu, if not +, then will call out antibiotics. Cough - RX for phenergan with codeine given to patient today. . Diabetes Mellitus - controlled - per recent FSBS reports. I have recommended for the patient to have follow up labs prior to the next office visit. The patient has been instructed to continue with current medications as previously directed, continue with regular FSBS monitoring to assure continued control of diabetes. Pt to call for any acute concerns, complaints, or if the blood glucose readings are starting to become less controlled. Gastroparesis - continue with reglan for GI motility . Fatigue, malaise, diaphoresis, weakness - will check labs, will send for IV fluids, pt is to notify clinic if symptoms do not improve, if they worsen, or with any questions or concerns. Hypertension - The patient has been counseled to cut back on salt in diet for a no added salt diet, low fat diet, start an exercise program with low weight bearing exercises and higher aerobic activity for heart health. The patient is to check blood pressure readings as an outpatient and either fax, call, or email the readings to the office next week for practitioner to review. The pt is to call for acute concerns. Diabetes Mellitus - I have recommended for the patient to have follow up labs prior to the next office visit. The patient has been instructed to continue with current medications as previously directed, continue with regular FSBS monitoring to assure continued control of diabetes. Pt to call for any acute concerns, complaints, or if the blood glucose readings are starting to become less controlled. I have recommended for the patient to follow more strictly to the diabetic diet as discussed in clinic to allow for greater blood glucose control. . Allergies - chronic - recommended pt to use allergy medication as prescribed. Pt has been counseled as to the appropriate use of the medication. Pt to call if allergy symptoms are not controlled with the medication. If using nasal spray, instructions as follows: Nasal spray- use twice daily, one spray per nostril twice daily, after 30 minutes, rinse out nose with saline spray.. Use opposite hand per nostril to spray in the nasal steroid allergy spray. Chronic Depression and anxiety - the pt has symptoms of chronic anxiety and depression that have been fairly well controlled since the last office visit. The pt has expected periods of exacerbation with abatement of the symptoms with change in situational exposure. No change in current medications. . Diabetes Mellitus - controlled - per recent FSBS reports. I have recommended for the patient to have follow up labs prior to the next office visit. The patient has been instructed to continue with current medications as previously directed, continue with regular FSBS monitoring to assure continued control of diabetes. Pt to call for any acute concerns, complaints, or if the blood glucose readings are starting to become less controlled. Hypertension - well controlled - continue with current medications, continue with no added salt diet. Pt has been encouraged to exercise daily. The pt has been advised to call the office if there are any acute concerns about change in blood pressure readings at home. . Hypertension - wel l controlled - continue with current medications, continue with no added salt diet. Pt has been encouraged to exercise daily. The pt has been advised to call the office if there are any acute concerns about change in blood pressure readings at home. Diabetes Mellitus - controlled - per recent FSBS reports. I have recommended for the patient to have follow up labs prior to the next office visit. The patient has been instructed to continue with current medications as previously directed, continue with regular FSBS monitoring to assure continued control of diabetes. Pt to call for any acute concerns, complaints, or if the blood glucose readings are starting to become less controlled. Anxiety - pt has been taking oxazepam - prn - feels as if she is doing well - pt is to continue with prn use. Ilitibial band syndrome- recommended use of antiinflammatories and pt given handout on Ilitibial band exercises. . Diabetes Mellitus - controlled - per recent FSBS reports. I have recommended for the patient to have follow up labs prior to the next office visit. The patient has been instructed to continue with current medications as previously directed, continue with regular FSBS monitoring to assure continued control of diabetes. Pt to call for any acute concerns, complaints, or if the blood glucose readings are starting to become less controlled. PMR - pt has been counseled about healthy diet, exercise, and adequate rest in the evening/nighttime for optimal health and improvement of the symptoms. Pt is to use medication for pain control and symptom management sparingly. Hypertension - well controlled - continue with current medications, continue with no added salt diet. Pt has been encouraged to exercise daily. The pt has been advised to call the office if there are any acute concerns about change in blood pressure readings at home. . Rib pain and thora cic spine pain - status post fall at home - discussed with pt - need to check xrays - okay to keep using her back brace. Rx for muscle relaxer sent to patient's pharmacy. Kenalog shot given in clinic today. . Hypertension - wel l controlled - continue with current medications, continue with no added salt diet. Pt has been encouraged to exercise daily. The pt has been advised to call the office if there are any acute concerns about change in blood pressure readings at home. Diabetes Mellitus - controlled - per recent FSBS reports. I have recommended for the patient to have follow up labs prior to the next office visit. The patient has been instructed to continue with current medications as previously directed, continue with regular FSBS monitoring to assure continued control of diabetes. Pt to call for any acute concerns, complaints, or if the blood glucose readings are starting to become less controlled. Depression and anxiety - pt has recently lost spouse to cancer - she has anxiety and depression chronically - but she reports that she feels stable. . Hyperlipidemia - pt has been counseled about appropriate diet, exercise, and need for low fat food choices. I have discussed the need for the patient to take medications as prescribed. If the patient has negative side effects from the medication, they are to CALL the office and not abruptly discontinue the medication without discussion with a practicioner in the office. We will check labs in 3-6 months for follow up on the patient's chronic medical problem and to assure normal liver response to medications. Pt complaining of aching and fatigue - she thinks it may be related to lipitor. I have recommended holding the lipitor x 4 days, then restarting the lipitor to 10mg every other day. I will send a copy of this note to her Web Knitter - Dr. Kraus as he will ultimately be managing her lipid disease. Hypertension - well controlled - continue with current medications, continue with no added salt diet. Pt has been encouraged to exercise daily. The pt has been advised to call the office if there are any acute concerns about change in blood pressure readings at home. Diabetes Mellitus - Uncontrolled - per recent FSBS reports. I have recommended for the patient to have follow up labs prior to the next office visit. The patient has been instructed to continue with current medications as previously directed, continue with regular FSBS monitoring to assure continued control of diabetes. Pt to call for any acute concerns, complaints, or if the blood glucose readings are starting to become less controlled. I have recommended for the patient to follow more strictly to the diabetic diet as discussed in clinic to allow for greater blood glucose control. Glyburide restarted. . Constipation - unc ontrolled - I have discussed with the patient the need for adequate fiber and water intake to facilitate soft, easily passed stools. The pt noted understanding of our conversation. Pt advised to start on benefiber daily, if it does not improve, then start on miralax. Pt has been advised that due to her current severe constipation, she may take colace for thr next two days to liberate her constipation. Persistance sinusitis- levaquin rx called for pt. Cerumen Impaction - The impacted cerumen was removed with the use of the ear currette. The patient tolerated the procedure without incident and had improvement in hearing. The wax was removed by the practicioner due to the wax being more complicated to remove, and staff was needed to assit the removal of the wax by holding the ear, and keepig patient stabilized during the removal process. . Hypertension - wel l controlled - continue with current medications, continue with no added salt diet. Pt has been encouraged to exercise daily. The pt has been advised to call the office if there are any acute concerns about change in blood pressure readings at home. Depression and Anxiety - due to of spouse - continue with current treatment. . Diabetes Mellitus - improved control - per recent FSBS reports. I have recommended for the patient to have follow up labs prior to the next office visit. The patient has been instructed to continue with current medications as previously directed, continue with regular FSBS monitoring to assure continued control of diabetes. Pt to call for any acute concerns, complaints, or if the blood glucose readings are starting to become less controlled. No new medications or medication changes today - recommended pt to keep on the Trulicity and monitor FSBS at home, bring in copy to clinic. DX sinusitis - discu ssed expected course with the patient, pt advised to call for worsening symptoms, or lack of improvement on prescribed treatment course. Singulair samples-10mg po daily. Call if you allergy symptosm do not improve, or if any worse. Check your thyroid labs at [facility]-we will call you with the results. . Sinusitis - Pt has acute infection - p ain in face, maxillary region, Pt informed to use decongestant, RX given to patient, sinus rinses also recommended. Call if symptoms do not show improvement. DX sinusitis - discussed expected course with the patient, pt advised to call for worsening symptoms, or lack of improvement on prescribed treatment course. Singulair samples-10mg po daily. Call if you allergy symptosm do not improve, or if any worse. Check your thyroid labs at [facility]-we will call you with the results. Allergies - chronic - recommended pt to use allergy medication as prescribed. Pt has been counseled as the the appropriate use of the medication. Pt to call if allergy symptoms are not controlled with the medication. Dysuria - UA negative . Hypertension - wel l controlled - continue with current medications, continue with no added salt diet. Pt has been encouraged to exercise daily. The pt has been advised to call the office if there are any acute concerns about change in blood pressure readings at home. Diabetes Mellitus - controlled - per recent FSBS reports. I have recommended for the patient to have follow up labs prior to the next office visit. The patient has been instructed to continue with current medications as previously directed, continue with regular FSBS monitoring to assure continued control of diabetes. Pt to call for any acute concerns, complaints, or if the blood glucose readings are starting to become less controlled. Anxiety - pt has been taking oxazepam - prn - feels as if she is doing well - pt is to continue with prn use. Neck pain - recommended pt to see Dr. García for evaluation of the neck. . Hypertension - wel l controlled - continue with current medications, except for lisinopril ( due to cough) will start on cozaar 25mg daily, and continue with no added salt diet. Pt has been encouraged to exercise daily. The pt has been advised to call the office if there are any acute concerns about change in blood pressure readings at home. Cough - due to lisinopril, will have pt stop the medication and start on cozaar 25mg daily. Cerumen impaction - pt had cerumen removal with warm water today . Hypertension - wel l controlled - continue with current medications, continue with no added salt diet. Pt has been encouraged to exercise daily. The pt has been advised to call the office if there are any acute concerns about change in blood pressure readings at home. Pt reports daytime sleepiness, observed apneas - recommended sleep study to be done. Diabetes Mellitus - controlled - per recent FSBS reports. I have recommended for the patient to have follow up labs prior to the next office visit. The patient has been instructed to continue with current medications as previously directed, continue with regular FSBS monitoring to assure continued control of diabetes. Pt to call for any acute concerns, complaints, or if the blood glucose readings are starting to become less controlled. I sent prescriptions to [facility] for the following medications: LOSARTAN 25MG DAILY TOPROL XL 25MG DAILY LIPITOR 10MG EVERY OTHER DAY Monitor you blood sugars as directed at home, record, and bring to the office at your next appointment, or as directed. Monitor your blood sugars at different times throughout the day-fasting, 30 minutes before a meal, 2 hours after a meal, or bedtime are good times to monitor your blood sugars. . Hypertension - uncontrolled - the patient's medications have been modified as documented in the visit note. The patient has been counseled to cut back on salt in diet for a no added salt diet, low fat diet, start an exercise program with low weight bearing exercises and higher aerobic activity for heart health. The patient is to check blood pressure readings as an outpatient and either fax, call, or email the readings to the office next week for practicioner to review. The pt is to call for acute concerns. Diabetes Mellitus - Uncontrolled - per recent FSBS reports. I have recommended for the patient to have follow up labs prior to the next office visit. The patient has been instructed to continue with current medications as previously directed, continue with regular FSBS monitoring to assure continued control of diabetes. Pt to call for any acute concerns, complaints, or if the blood glucose readings are starting to become less controlled. I have recommended for the patient to follow more strictly to the diabetic diet as discussed in clinic to allow for greater blood glucose control. you are due for a re gular pneumovax shot - the every 5 year pneumonia shot come back to get it in the middle of June. . Esophageal Reflux - the patient has be en counseled against excessive intake of caffeine, spicy foods, peppermint, and cinnamon - all of which can exacerbate esophageal reflux. The patient is to take medications as prescribed and call the office if the symptoms are not improving. Advised pt to use lactaid pills increase trulicity d ose to 1.5mg weekly . Diabetes Mellitus - Uncontrolled - per recent FSBS reports. I have recommended for the patient to have follow up labs prior to the next office visit. The patient has been instructed to continue with current medications as previously directed, continue with regular FSBS monitoring to assure continued control of diabetes. Pt to call for any acute concerns, complaints, or if the blood glucose readings are starting to become less controlled. I have recommended for the patient to follow more strictly to the diabetic diet as discussed in clinic to allow for greater blood glucose control. Increase Trulicity from 0.75mg dose to 1.5mg dose. Hypertension - well controlled - continue with current medications, continue with no added salt diet. Pt has been encouraged to exercise daily. The pt has been advised to call the office if there are any acute concerns about change in blood pressure readings at home. Hyperlipidemia - pt has been counseled about appropriate diet, exercise, and need for low fat food choices. I have discussed the need for the patient to take medications as prescribed. If the patient has negative side effects from the medication, they are to CALL the office and not abruptly discontinue the medication without discussion with a practitioner in the office. We will check labs in 3-6 months for follow up on the patient's chronic medical problem and to assure normal liver response to medications. increase the metform in to 1.5 tablets twice daily - continue with the current dose of the trulicity . Diabetes Mellitus - Uncontrolled - per recent FSBS reports. I have recommended for the patient to have follow up labs prior to the next office visit. The patient has been instructed to continue with current medications as previously directed, continue with regular FSBS monitoring to assure continued control of diabetes. Pt to call for any acute concerns, complaints, or if the blood glucose readings are starting to become less controlled. I have recommended for the patient to follow more strictly to the diabetic diet as discussed in clinic to allow for greater blood glucose control. Increase the metformin to 1.5 tablets twice daily. Hypertension - well controlled - continue with current medications, continue with no added salt diet. Pt has been encouraged to exercise daily. The pt has been advised to call the office if there are any acute concerns about change in blood pressure readings at home. . Bruising and pain post fall- with hip pain - recommended pt to have xray of hips and pelvis and lumbar spine as she is having the pain in her hips post fall. . Sinusitis - Pt has acute infection - pain in face, maxillary region, Pt informed to use decongestant, RX given to patient, sinus rinses also recommended. Call if symptoms do not show improvement. . Diabetes Mellitus - controlled - per recent FSBS reports. I have recommended for the patient to have follow up labs prior to the next office visit. The patient has been instructed to continue with current medications as previously directed, continue with regular FSBS monitoring to assure continued control of diabetes. Pt to call for any acute concerns, complaints, or if the blood glucose readings are starting to become less controlled. dEPRESSION AND Anxiety - the patient has fairly well controlled depression and anxiety and will continue to benefit from an SSRI on a daily basis to attempt control of the symptoms of anxiety (tachycardia, overwhelming sensations, stress, insomnia, etc). I also believe that the patient will benefit from very low dose of prn benzodiazepine. Pt is aware of the risks and benefits of treament with the above medications. Peripheral neuropathy- continue with gabapentin, may increase dose to three times a day, then increase to two pills bid and may increase up to 300mg tid if needed for neuropathic symptoms. . Diabetes Mellitus - Uncontrolled - per recent FSBS reports. I have recommended for the patient to have follow up labs prior to the next office visit. The patient has been instructed to continue with current medications as previously directed, continue with regular FSBS monitoring to assure continued control of diabetes. Pt to call for any acute concerns, complaints, or if the blood glucose readings are starting to become less controlled. I have recommended for the patient to follow more strictly to the diabetic diet as discussed in clinic to allow for greater blood glucose control. pt to use bydureon 1 injection every week - samples given to patient. . Diabetes Mellitus - controlled - per recent FSBS reports. I have recommended for the patient to have follow up labs prior to the next office visit. The patient has been instructed to continue with current medications as previously directed, continue with regular FSBS monitoring to assure continued control of diabetes. Pt to call for any acute concerns, complaints, or if the blood glucose readings are starting to become less controlled. Depression - spousal dysfunction - recommended for Pat to approach Angel about sounseling and give him space to start improving his behaviors so that she can have an environment in the medical center[facility] they can grow and change together. No change to Pat's medications today. Time based documentation -I spent over 40 minutes with the patient in discussion of the disease process, expected course, and overall prognosis for the patient's disease state. The patient/family expressed understanding. . Diabetes Mellitus - controlled - per recent FSBS reports. I have recommended for the patient to have follow up labs prior to the next office visit. The patient has been instructed to continue with current medications as previously directed, continue with regular FSBS monitoring to assure continued control of diabetes. Pt to call for any acute concerns, complaints, or if the blood glucose readings are starting to become less controlled. Hypertension - well controlled - continue with current medications, continue with no added salt diet. Pt has been encouraged to exercise daily. The pt has been advised to call the office if there are any acute concerns about change in blood pressure readings at home. Hyperlipidemia - pt needs to have labs checked. steroid shot today meclizine - dizzy pill - as needed prednisone to start tomorrow if needed flonase over the counter nasal spray continue claritin. BPPV - Benign Paroxysmal Positional Vertigo - discussed diagnosis with the patient, offered the pt the appropriate additional information in hand-out. Pt instructed in home exercises to help alleviate and prevent future recurrent episodes of vertigo. Pt informed that if symptoms worsen, call the office for further instructions/medication interventions.Allergies - chronic - recommended pt to use allergy medication as prescribed. Pt has been counseled as to the appropriate use of the medication. Pt to call if allergy symptoms are not controlled with the medication. If using nasal spray, instructions as follows: Nasal spray- use twice daily, one spray per nostril twice daily, after 30 minutes, rinse out nose with saline spray.. Use opposite hand per nostril to spray in the nasal steroid allergy spray. BPPV - Benign Paroxysmal Positional Vertigo - discussed diagnosis with the patient, offered the pt the appropriate additional information in hand-out. Pt instructed in home exercises to help alleviate and prevent future recurrent episodes of vertigo. Pt informed that if symptoms worsen, call the office for further instructions/medication interventions. Muscle spasms - will send RX take 1/2 bottle of m agnesium citrate - if no movement, then take the other 1/2 of the bottle in 4 hours. . Hypertension - well controlled - tisha nue with current medications, continue with no added salt diet. Pt has been encouraged to exercise daily. The pt has been advised to call the office if there are any acute concerns about change in blood pressure readings at home. Diabetes Mellitus - controlled - per recent FSBS reports. I have recommended for the patient to have follow up labs prior to the next office visit. The patient has been instructed to continue with current medications as previously directed, continue with regular FSBS monitoring to assure continued control of diabetes. Pt to call for any acute concerns, complaints, or if the blood glucose readings are starting to become less controlled. Constipation - uncontrolled - I have discussed with the patient the need for adequate fiber and water intake to facilitate soft, easily passed stools. The pt noted understanding of our conversation. I have given the patient a recipe for "power pudding" - equal parts, bran flakes, prune juice, and apple sauce. The pt is to call if symptoms not improved on this regimen. . Diabetes Mellitus - controlled - per recent FSBS reports. I have recommended for the patient to have follow up labs prior to the next office visit. The patient has been instructed to continue with current medications as previously directed, continue with regular FSBS monitoring to assure continued control of diabetes. Pt to call for any acute concerns, complaints, or if the blood glucose readings are starting to become less controlled. Pt with improved control on the bydureon - monitor symptoms. . Diabetes Mellitus - controlled - per recent FSBS reports. I have recommended for the patient to have follow up labs prior to the next office visit. The patient has been instructed to continue with current medications as previously directed, continue with regular FSBS monitoring to assure continued control of diabetes. Pt to call for any acute concerns, complaints, or if the blood glucose readings are starting to become less controlled. Hypothyroidism - pt with chronic hypothyroidism, continue with current medication, will monitor pt to signs or symptoms of lack of adequate supplementation. Pt is to continue with current dose of medication unless directed otherwise. Check labs at regular intervals wither q 3 months or q 6 months based on previous levels of control. . Abdominal pain - d iscussed need to keep stool soft, keep cleared of feces to prevent constipation and large bowel movements which may be leading to anal fissures. Hematochezia - discussed investigation plan with the patient, she may need to see surgeon for consideration of colonoscopy or other procedure. Back pain - UA negative - recommended exercises and heat to lower back. decrease claritin to 1/2 a tablet twice daily. . Diabetes Mellitus - controlled - per r ecent FSBS reports. I have recommended for the patient to have follow up labs prior to the next office visit. The patient has been instructed to continue with current medications as previously directed, continue with regular FSBS monitoring to assure continued control of diabetes. Pt to call for any acute concerns, complaints, or if the blood glucose readings are starting to become less controlled. Hypertension - well controlled - continue with current medications, continue with no added salt diet. Pt has been encouraged to exercise daily. The pt has been advised to call the office if there are any acute concerns about change in blood pressure readings at home. Hyperlipidemia - pt has been counseled about appropriate diet, exercise, and need for low fat food choices. I have discussed the need for the patient to take medications as prescribed. If the patient has negative side effects from the medication, they are to CALL the office and not abruptly discontinue the medication without discussion with a practitioner in the office. We will check labs in 3-6 months for follow up on the patient's chronic medical problem and to assure normal liver response to medications. prevnar and flu shot today . Sinusitis - Pt has acute infection - pain in face, maxillary region, Pt informed to use decongestant, RX given to patient, sinus rinses also recommended. Call if symptoms do not show improvement. Pt has been advised to start on mucinex twice daily - for the first 3 days take 1200mg twice daily, then back down to 600mg twice daily. Pt is to use vaseline in the nose to keep it moist - for the next 5 days, then use as needed if the nose is dry and bleeding when blowing the nose. Cerumen impaction -too dry to be removed at this time. Pt has been advised to use sweet oil in the ears at bedtime nightly for the next week, then will attempt to remove the cerumen at her appt next week. Cough - use prn cough medication. Nexium 40mg daily continue zantac kenalog injection today claritin 10mg daily call if reflux is not better . Esophageal Reflux - the patient has be en counseled against excessive intake of caffeine, spicy foods, peppermint, and cinnamon - all of which can exacerbate esophageal reflux. The patient is to take medications as prescribed and call the office if the symptoms are not improving. Sbhzy-ehtfkuhgb-urmnrae injection today in the office -start claritin 10mg daily . Diabetes Mellitus - controlled - per recent FSBS reports. I have recommended for the patient to have follow up labs prior to the next office visit. The patient has been instructed to continue with current medications as previously directed, continue with regular FSBS monitoring to assure continued control of diabetes. Pt to call for any acute concerns, complaints, or if the blood glucose readings are starting to become less controlled. Hypertension - well controlled - continue with current medications, continue with no added salt diet. Pt has been encouraged to exercise daily. The pt has been advised to call the office if there are any acute concerns about change in blood pressure readings at home. Uncontrolled reflux - with regurgitation and dyspnea - pt to increase the nexium to twice daily. Anxiety and Depression - due to situation with her having esophageal cancer. . Diabetes Mellitus - controlled - per recent FSBS reports. I have recommended for the patient to have follow up labs prior to the next office visit. The patient has been instructed to continue with current medications as previously directed, continue with regular FSBS monitoring to assure continued control of diabetes. Pt to call for any acute concerns, complaints, or if the blood glucose readings are starting to become less controlled. Hypertension - well controlled - continue with current medications, continue with no added salt diet. Pt has been encouraged to exercise daily. The pt has been advised to call the office if there are any acute concerns about change in blood pressure readings at home. Dry mouth - supsect candidal stomatitis - continue with plans for nystatin . Sinusitis - Pt garcia s acute infection - pain in face, maxillary region, Pt informed to use decongestant, RX given to patient, sinus rinses also recommended. Call if symptoms do not show improvement.ciprofloxacin 500 mg bid x10 days Recommended pt to talk to her surgeon about her hemorroids - the bands appear to be gone, but the hemorrhoid is enlarged and painful. She is to continue to use the hemorrhoid cream as directed by ehr surgeon and I have recommended that she us a pad over the hemorrhoid to keep the medication in place. . Hypertension - wel l controlled - continue with current medications, continue with no added salt diet. Pt has been encouraged to exercise daily. The pt has been advised to call the office if there are any acute concerns about change in blood pressure readings at home. Hyperlipidemia - pt has been counseled about appropriate diet, exercise, and need for low fat food choices. I have discussed the need for the patient to take medications as prescribed. If the patient has negative side effects from the medication, they are to CALL the office and not abruptly discontinue the medication without discussion with a practicioner in the office. We will check labs in 3-6 months for follow up on the patient's chronic medical problem and to assure normal liver response to medications. PT HAS BEEN INSTRUCTED TO RESTART HER LIPITOR AND TRICOR. PT IS ALSO TO RESTART HER Fish oil. Depression/ Anxiety / Peripheral Neuropathy - I AGREE WITH THE ONCOLOGIST THAT DECREASING THE EFFEXOR TO OFF AND DECREASING THE NEURONTIN TO OFF IS A GOOD IDEA IF WE CAN COUPLE THAT WITH STARTING ON A MEDICATION THAT WILL HAVE DUAL EFFECTS ON THE DIFFERENT DISEASES. DM - controlled per pt report - continue to monitor - bring in readings. . Diabetes Mellitus - controlled - per recent FSBS reports. I have recommended for the patient to have follow up labs prior to the next office visit. The patient has been instructed to continue with current medications as previously directed, continue with regular FSBS monitoring to assure continued control of diabetes. Pt to call for any acute concerns, complaints, or if the blood glucose readings are starting to become less controlled. Hypertension - well controlled - continue with current medications, continue with no added salt diet. Pt has been encouraged to exercise daily. The pt has been advised to call the office if there are any acute concerns about change in blood pressure readings at home. Anxiety/Depression - pt has recently had a close family friend pass away and she was at the house almost every day x 9 months. george lux . Allergies - chronic - recommended pt t o use allergy medication as prescribed. Pt has been counseled as to the appropriate use of the medication. Pt to call if allergy symptoms are not controlled with the medication. If using nasal spray, instructions as follows: Nasal spray- use twice daily, one spray per nostril twice daily, after 30 minutes, rinse out nose with saline spray.. Use opposite hand per nostril to spray in the nasal steroid allergy spray. pt wants written rx for claritin and singulair, Neck pain - MRI to be ordered.
--- OUTSIDE RECORDS SUMMARY | 2019-08-12 22:41 | XMS REPORT | CCD ---
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 Name Role Phone PP Unavailable CCM Unavailable Summary Purpose Interface Exchange Insurance Providers Payer name Policy type / Coverage type Covered constitution party ID Effective Begin Date Effective End Date WPS Medicare Part B Medicare Part B [id number] Unknown GEHA Medicare Part B [id number] Unknown Family history Father Diagnosis Age At [...] Date Stop Date Sta tus Fill Instructions cyclobenzaprine 5 mg tablet RxNorm: 754382 1 Tablet(s) PO TID x 3 days then as needed for muscle spasms 02/10/2019 02/19/2019 Active meclizine 25 mg tablet RxNorm: 248066 1 Tablet(s) PO TID as needed Dizziness 02/10/2019 02/19/2019 Ac tive fluticasone propiona te 50 mcg/actuation nasal spray,suspension RxNorm: 2661566 [place] USE ONE SPRAY IN EACH NOSTRIL TWICE A DAY 02/10/2019 06/09/2019 Active prednisone 20 mg tablet RxNorm: 636625 2 Tablet(s) PO daily 02/10/2019 02/14/2019 Inactive levothyroxine 25 mcg tablet RxNorm: 895892 Tablet(s) TAKE 1 TABL ET DAILY 01/16/2019 07/14/2019 Ac tive mesalamine 800 mg ta blet,delayed release RxNorm: 330551 Tablet(s) TAKE 1 TABL ET TWICE A DAY 01/15/2019 01/09/2020 Active metformin 500 mg tablet RxNorm: 000696 TAKE 1 AND 1/2 TABLETS TWICE DAILY 01/15/2019 01/09/2020 Ac tive Nexium 40 mg capsule ,delayed release RxNorm: 155667 TAKE 1 CAPSULE TWICE DAILY 01/15/2019 01/09/2020 Ac tive Lialda 1.2 gram tabl et,delayed release RxNorm: 014708 2 Tablet(s) PO daily 12/23/2018 No Stop Date Active Kenalog 40 mg/mL [place] pension for injection RxNorm: 8911568 Milliliter(s) Inj 12/23/2018 12/23/2018 In active cyclobenzaprine 5 mg tablet RxNorm: 372330 1 Tablet(s) PO TID x 3 days then as needed for muscle spasms 12/23/2018 01/01/2019 Inactive furosemide 40 mg tablet RxNorm: 611166 TAKE 1 TABLET DAILY 12/01/2018 08/27/2019 Active Effexor XR 75 mg cap alma,extended release RxNorm: 895851 1 Capsule(s) PO daily 09/16/2018 09/10/2019 Ac tive levothyroxine 25 mcg tablet RxNorm: 303506 Tablet(s) TAKE 1 TABL ET DAILY 08/26/2018 01/15/2019 In active montelukast 10 mg ta blet RxNorm: 358475 TAKE 1 TABLET DAILY 07/21/2018 07/15/2019 Active Augmentin 500 mg-125 mg tablet RxNorm: 392121 1 Tablet(s) PO TID 05/27/2018 05/26/2018 Inactive Augmentin 500 mg-125 mg tablet RxNorm: 777861 1 Tablet(s) PO TID 05/27/2018 06/02/2018 Inactive Kenalog 40 mg/mL [place] pension for injection RxNorm: 2511901 1 Milliliter(s) Inj 05/26/2018 05/26/2018 In active pilocarpine 5 mg tablet RxNorm: 6799496 Tablet(s) TAKE 4 TABLETS DAILY 04/22/2018 07/15/2019 Ac tive Trulicity 1.5 mg/0.5 mL subcutaneous pen injector RxNorm: 2502839 INJECT 0.5ML SUBCUTANEOUSLY EVERY WEEK 02/24/2018 04/29/2019 Active levothyroxine 25 mcg tablet RxNorm: 302303 TAKE 1 TABLET DAILY 02/13/2018 08/11/2018 Inactive mesalamine 800 mg ta blet,delayed release RxNorm: 111085 TAKE 1 TABLET TWICE A DAY 12/10/2017 12/03/2018 In active metformin 500 mg tablet RxNorm: 678612 1.5 Tablet(s) PO BID 11/25/2017 11/19/2018 Inactive levothyroxine 25 mcg tablet RxNorm: 046390 TAKE 1 TABLET DAILY 11/19/2017 02/12/2018 Inactive Nexium 40 mg capsule ,delayed release RxNorm: 351718 TAKE 1 CAPSULE TWICE DAILY 11/15/2017 11/09/2018 In active Effexor XR 75 mg cap alma,extended release RxNorm: 415869 1 Capsule(s) PO daily 10/14/2017 09/15/2018 In active Bactroban 2 % topica l cream RxNorm: 974037 1 Application TOP TID 09/18/2017 09/27/2017 Inactive nystatin 100,000 uni t/mL oral suspension RxNorm: 336139 5 Milliliter(s) PO TI D 09/18/2017 09/27/2017 In active oxazepam 10 mg capsule RxNorm: 450955 1 Capsule(s) PO TID as needed anxiety 09/02/2017 02/28/2018 In active oxazepam 10 mg capsule RxNorm: 756027 1 Capsule(s) PO TID as needed anxiety 08/29/2017 09/01/2017 In active fluticasone 50 mcg/a ctuation nasal spray,suspension RxNorm: 9003568 [place] USE ONE SPRAY IN EACH NOSTRIL TWICE A DAY 08/29/2017 12/26/2017 Inactive furosemide 40 mg tablet RxNorm: 817273 TAKE 1 TABLET DAILY 08/26/2017 08/20/2018 Inactive pilocarpine 5 mg tablet RxNorm: 1637121 TAKE 4 TABLETS DAILY 08/26/2017 04/21/2018 Inactive metformin 500 mg tablet RxNorm: 666590 TAKE 1 TABLET TWICE A DAY 08/20/2017 11/24/2017 Inactive Claritin-D 12 Hour 5 mg-120 mg tablet,extended release RxNorm: 5025389 Tablet(s) TAKE ONE (1) TABLET BY MOUTH TWICE DAILY 07/29/2017 12/22/2018 Inactive fluticasone 50 mcg/a ctuation nasal spray,suspension RxNorm: 2374050 [place] USE ONE SPRAY IN EACH NOSTRIL TWICE A DAY 07/25/2017 07/24/2017 Inactive fluticasone 50 mcg/a ctuation nasal spray,suspension RxNorm: 4315921 [place] USE ONE SPRAY IN EACH NOSTRIL TWICE A DAY 07/25/2017 08/28/2017 Inactive fluticasone 50 mcg/a ctuation nasal spray,suspension RxNorm: 1049199 [place] USE ONE SPRAY IN EACH NOSTRIL TWICE A DAY 06/04/2017 07/24/2017 Inactive montelukast 10 mg ta blet RxNorm: 143736 TAKE 1 TABLET DAILY 06/03/2017 05/28/2018 Inactive levothyroxine 25 mcg tablet RxNorm: 207440 TAKE 1 TABLET DAILY 05/13/2017 11/08/2017 Inactive Voltaren 1 % topical gel RxNorm: 227996 2 Gram(s) TOP QID 05/02/2017 2017 Inactive nystatin 100,000 uni t/mL oral suspension RxNorm: 160292 5 Milliliter(s) PO QI D 03/29/2017 04/11/2017 In active Diflucan 150 mg tablet RxNorm: 848221 1 Tablet(s) PO daily 03/29/2017 05/01/2017 Inactive Trulicity 1.5 mg/0.5 mL subcutaneous pen injector RxNorm: 0521223 INJECT 0.5ML SUBCUTANEOUSLY EVERY WEEK 02/28/2017 01/29/2018 Inactive levothyroxine 25 mcg tablet RxNorm: 461412 1 Tablet(s) PO daily 11/19/2016 11/18/2016 Inactive levothyroxine 25 mcg tablet RxNorm: 200098 1 Tablet(s) PO daily 11/19/2016 05/12/2017 Inactive Claritin 10 mg tablet RxNorm: 726782 1 Tablet(s) PO daily 11/07/2016 11/06/2016 Inactive Claritin 10 mg tablet RxNorm: 626928 1 Tablet(s) PO daily 11/07/2016 12/06/2016 Inactive Zithromax Z-Ankit 250 mg tablet RxNorm: 131724 1 Tablet(s) PO UD 11/07/2016 05/01/2017 Inactive oxazepam 10 mg capsule RxNorm: 721422 1 Capsule(s) PO TID as needed anxiety 11/01/2016 12/30/2016 In active Nexium 40 mg capsule ,delayed release RxNorm: 382991 1 Capsule(s) PO BID 10/25/2016 10/19/2017 In active Claritin-D 12 Hour 5 mg-120 mg tablet,extended release RxNorm: 8258103 Tablet(s) TAKE ONE (1) TABLET BY MOUTH TWICE DAILY 10/25/2016 12/23/2016 Inactive mesalamine 800 mg ta blet,delayed release RxNorm: 051718 1 Tablet(s) PO BID 09/18/2016 09/17/2016 In active mesalamine 800 mg ta blet,delayed release RxNorm: 718373 1 Tablet(s) PO BID 09/18/2016 06/14/2017 In active Effexor XR 75 mg cap alma,extended release RxNorm: 267832 1 Capsule(s) PO daily 08/30/2016 08/24/2017 In active metformin 500 mg tablet RxNorm: 318277 1 Tablet(s) PO BID 08/17/2016 08/11/2017 Inactive oxazepam 10 mg capsule RxNorm: 259669 1 Capsule(s) PO TID as needed anxiety 08/17/2016 10/15/2016 In active Claritin-D 12 Hour 5 mg-120 mg tablet,extended release RxNorm: 7493941 TAKE ONE (1) TABLET BY MOUTH TWICE DAILY... 08/16/2016 10/24/2016 Inactive furosemide 40 mg tablet RxNorm: 672198 1 Tablet(s) daily TAKE 1 TABLET DAILY 08/14/2016 08/08/2017 In active Effexor XR 75 mg cap alma,extended release RxNorm: 363910 1 Capsule(s) PO daily 08/14/2016 08/29/2016 In active pilocarpine 5 mg tablet RxNorm: 3067048 4 Tablet(s) PO daily TAKE 4 TABLETS YARI Y 08/14/2016 08/08/2017 In active metoclopramide 5 mg tablet RxNorm: 339001 1/2 to 1 Tablet(s) PO TID for nause and GI dysmotility 07/02/2016 11/14/2016 Inactive Effexor XR 75 mg cap alma,extended release RxNorm: 422655 1 Capsule(s) PO daily 07/02/2016 08/13/2016 In active metformin 500 mg tablet RxNorm: 169683 1/2 TABLET(S) PO BID X2 WEEKS THEN INCRE ASE TO 1 TABLET PO BID THEREAFTER 06/26/2016 08/16/2016 Inactive 30 day supply Claritin-D 12 Hour 5 mg-120 mg tablet,extended release RxNorm: 9422281 1 Tablet(s) PO BID 06/18/2016 08/15/2016 Inactive montelukast 10 mg ta blet RxNorm: 269095 1 Tablet(s) PO daily 06/13/2016 06/02/2017 Inactive metformin 500 mg tablet RxNorm: 855717 1/2 Tablet(s) PO BID x2 weeks then incre ase to 1 Tablet PO BID thereafter 06/07/2016 06/06/2016 Inactive 30 day supply metformin 500 mg tablet RxNorm: 371000 1/2 Tablet(s) PO BID x2 weeks then incre ase to 1 Tablet PO BID thereafter 06/07/2016 06/25/2016 Inactive 30 day supply Diflucan 150 mg tablet RxNorm: 892633 1 Tablet(s) PO daily 03/27/2016 04/02/2016 Inactive nystatin 100,000 uni t/mL oral suspension RxNorm: 987989 5 Milliliter(s) PO QI D 03/27/2016 04/05/2016 In active nystatin 100,000 uni t/mL oral suspension RxNorm: 190061 5 Milliliter(s) PO QI D 03/27/2016 03/26/2016 In active Diflucan 150 mg tablet RxNorm: 608439 1 Tablet(s) PO daily 03/27/2016 03/26/2016 Inactive Effexor XR 75 mg cap alma,extended release RxNorm: 005249 1 Capsule(s) PO daily 03/26/2016 07/01/2016 In active this replaces the 150mg dose - we are we aning down her dose Trulicity 1.5 mg/0.5 mL subcutaneous pen injector RxNorm: 2444255 0.5 Milliliter(s) SQ QW 03/26/2016 02/27/2017 Inactive Trulicity 0.75 mg/0. 5 mL subcutaneous pen injector RxNorm: 6027691 1 injection SQ QW 03/13/2016 06/03/2016 Inactive Trulicity 0.75 mg/0. 5 mL subcutaneous pen injector RxNorm: 7284249 1/2 Milliliter(s) SQ QW 03/13/2016 03/12/2016 Inactive glyburide 2.5 mg tablet RxNorm: 873172 1/2 Tablet(s) PO BID 03/13/2016 03/25/2016 Inactive glyburide 2.5 mg tablet RxNorm: 853615 1/2 Tablet(s) PO BID 03/13/2016 03/12/2016 Inactive Claritin-D 12 Hour 5 mg-120 mg tablet,extended release RxNorm: 4053636 1 Tablet(s) PO BID 02/03/2016 10/24/2016 Inactive Synthroid 25 mcg tablet RxNorm: 088102 1 Tablet(s) PO daily 01/23/2016 11/18/2016 Inactive Synthroid 25 mcg tablet RxNorm: 603704 1 Tablet(s) PO daily 01/23/2016 01/22/2016 Inactive Claritin-D 12 Hour 5 mg-120 mg tablet,extended release RxNorm: 2982281 1 Tablet(s) PO BID 12/05/2015 05/31/2016 Inactive Effexor XR 150 mg ca psule,extended release RxNorm: 811274 TAKE 1 CAPSULE DAILY 12/05/2015 03/25/2016 In active Bydureon 2 mg/0.65 m L subcutaneous pen injector RxNorm: 2279768 2 Milligram(s) SQ QW 10/14/2015 03/12/2016 Inactive oxazepam 10 mg capsule RxNorm: 569897 1 Capsule(s) PO TID PRN as needed anxiet y 10/14/2015 04/10/2016 In active Nexium 40 mg capsule ,delayed release RxNorm: 161565 1 Capsule(s) BID TAKE 1 CAPSULE DAILY 10/14/2015 10/07/2016 Inactive this is a new RX - fill the twice daily dose instead of once daily dose Effexor XR 150 mg ca psule,extended release RxNorm: 740076 1 Capsule(s) PO daily TAKE 1 CAPSULE DAILY 10/03/2015 03/25/2016 Inactive pilocarpine 5 mg tablet RxNorm: 9293765 4 Tablet(s) PO daily TAKE 4 TABLETS YARI Y 08/09/2015 02/04/2016 In active pilocarpine 5 mg tablet RxNorm: 1579958 4 Tablet(s) PO daily TAKE 4 TABLETS YARI Y 07/26/2015 08/08/2015 In active Claritin-D 12 Hour 5 mg-120 mg tablet,extended release RxNorm: 4341588 1 Tablet(s) PO BID 05/02/2015 10/24/2016 Inactive furosemide 40 mg tablet RxNorm: 762450 1 Tablet(s) daily TAKE 1 TABLET DAILY 03/31/2015 03/24/2016 In active Nexium 40 mg capsule ,delayed release RxNorm: 621418 1 Capsule(s) BID TAKE 1 CAPSULE DAILY 03/31/2015 10/13/2015 Inactive this is a new RX - fill the twice daily dose instead of once daily dose Nexium 40 mg capsule ,delayed release RxNorm: 563701 1 Capsule(s) daily TA KE 1 CAPSULE DAILY 03/31/2015 03/30/2015 Inactive montelukast 10 mg ta blet RxNorm: 958876 1 Tablet(s) PO daily 03/31/2015 03/24/2016 Inactive Synthroid 25 mcg tablet RxNorm: 177696 1 Tablet(s) PO daily 01/17/2015 01/11/2016 Inactive Synthroid 25 mcg tablet RxNorm: 145477 1 Tablet(s) PO daily 01/03/2015 01/16/2015 Inactive Claritin-D 12 Hour 5 mg-120 mg tablet,extended release RxNorm: 7397369 1 Tablet(s) PO BID 12/29/2014 05/01/2015 Inactive Synthroid 25 mcg tablet RxNorm: 563189 1 Tablet(s) PO daily 12/20/2014 01/02/2015 Inactive Synthroid 25 mcg tablet RxNorm: 629886 1 Tablet(s) PO daily 12/07/2014 12/19/2014 Inactive Effexor XR 150 mg ca psule,extended release RxNorm: 680985 1 Capsule(s) PO daily TAKE 1 CAPSULE DAILY 11/30/2014 10/02/2015 Inactive Nexium 40 mg capsule ,delayed release RxNorm: 796047 Capsule(s) TAKE 1 CAP ALMA DAILY 11/30/2014 03/30/2015 In active fenofibric acid (cho line) 135 mg capsule,delayed release RxNorm: 465952 1 Capsule(s) PO daily 08/31/2014 08/25/2015 Inactive Bydureon 2 mg subcut aneous extended release suspension RxNorm: 8541914 1 injection SQ QW 07/21/2014 07/15/2015 Inactive fluticasone 50 mcg/a ctuation nasal spray,suspension RxNorm: 2349176 USE ONE SPRAY IN EACH NOSTRIL TWICE A DAY 07/06/2014 06/03/2017 Inactive Lipitor 10 mg tablet RxNorm: 381993 TAKE 1 TABLET AT BEDTIME 06/15/2014 10/13/2015 Inactive furosemide 40 mg tablet RxNorm: 039389 TAKE 1 TABLET DAILY 06/15/2014 03/30/2015 Inactive oxazepam 10 mg capsule RxNorm: 174942 1 Capsule(s) PO TID PRN as needed anxiet y 06/11/2014 12/07/2014 In active montelukast 10 mg ta blet RxNorm: 547061 1 Tablet(s) PO daily 05/25/2014 03/30/2015 Inactive oxazepam 10 mg capsule RxNorm: 476687 1 Capsule(s) PO TID PRN as needed anxiet y 05/06/2014 06/10/2014 In active montelukast 10 mg ta blet RxNorm: 847205 1 Tablet(s) PO daily 05/04/2014 05/24/2014 Inactive Nexium 40 mg capsule ,delayed release RxNorm: 098969 TAKE 1 CAPSULE DAILY 03/25/2014 11/29/2014 In active Nexium 40 mg capsule ,delayed release RxNorm: 567309 1 Capsule(s) PO daily TAKE 1 CAPSULE DAILY 03/02/2014 03/24/2014 Inactive oxazepam 10 mg capsule RxNorm: 440783 1 Capsule(s) PO TID PRN as needed 02/24/2014 04/24/2014 In active pilocarpine 5 mg tablet RxNorm: 0386528 TAKE 4 TABLETS DAILY 02/01/2014 07/25/2015 Inactive Claritin-D 12 Hour 5 mg-120 mg tablet,extended release RxNorm: 0946940 1 Tablet(s) PO BID 12/24/2013 10/24/2016 Inactive Effexor XR 150 mg ca psule,extended release RxNorm: 429061 1 Capsule(s) PO daily TAKE 1 CAPSULE DAILY 12/24/2013 11/29/2014 Inactive Klor-Con 10 mEq tabl et,extended release RxNorm: 854769 1 Tablet(s) PO daily 12/24/2013 10/13/2015 In active Bydureon 2 mg subcut aneous extended release suspension RxNorm: 0442596 1 injection SQ QW 12/07/2013 07/20/2014 Inactive Synthroid 25 mcg tablet RxNorm: 933586 1 Tablet(s) PO daily 12/02/2013 11/26/2014 Inactive Klor-Con 10 mEq tabl et,extended release RxNorm: 548620 1 Tablet(s) PO daily take 2 daily x 1 week then one daily thereafter 12/02/2013 12/23/2013 Inactive oxazepam 10 mg capsule RxNorm: 907199 1 Capsule(s) PO TID PRN 11/10/2013 01/08/2014 Inactive omeprazole 20 mg cap alma,delayed release RxNorm: 658823 1 Capsule(s) PO daily 11/10/2013 04/13/2014 In active Synthroid 50 mcg tablet RxNorm: 272060 Tablet(s) PO TAKE 1 TABLET DAILY 09/21/2013 12/01/2013 In active furosemide 40 mg tablet RxNorm: 243506 Tablet(s) PO TAKE 1 TABLET DAILY 09/21/2013 06/14/2014 In active Bydureon 2 mg subcut aneous extended release suspension RxNorm: 8117725 1 injection SQ QW 07/22/2013 12/06/2013 Inactive Bydureon 2 mg subcut aneous extended release suspension RxNorm: 9673644 1 injection SQ QW 07/14/2013 07/21/2013 Inactive Nexium 40 mg capsule ,delayed release RxNorm: 789281 Capsule(s) PO TAKE 1 CAPSULE DAILY 06/18/2013 11/09/2013 Inactive fluticasone 50 mcg/a ctuation nasal spray,suspension RxNorm: 314708 1 [place] NASAL BID 06/18/2013 07/05/2014 Inactive Lipitor 10 mg tablet RxNorm: 145643 Tablet(s) PO every other day 1 tablet qo d 06/18/2013 06/12/2014 In active losartan 25 mg tablet RxNorm: 749724 1 Tablet(s) PO daily 1 daily for blood p ressure 06/18/2013 10/15/2013 Inactive Toprol XL 25 mg tabl et,extended release RxNorm: 650537 1 Tablet(s) PO daily 06/18/2013 06/12/2014 In active Toprol XL 25 mg tabl et,extended release RxNorm: 308109 1 Tablet(s) PO daily 06/12/2013 06/17/2013 In active losartan 25 mg tablet RxNorm: 745803 1 Tablet(s) PO daily 1 daily for blood p ressure 06/12/2013 06/17/2013 Inactive Lipitor 10 mg tablet RxNorm: 247983 Tablet(s) PO every other day 1 tablet qo d 06/12/2013 06/17/2013 In active Effexor XR 150 mg ca psule,extended release RxNorm: 052304 1 Capsule(s) PO daily TAKE 1 CAPSULE DAILY 05/27/2013 12/23/2013 Inactive Bydureon 2 mg subcut aneous extended release suspension RxNorm: 9773465 1 injection SQ QW 05/20/2013 07/13/2013 Inactive Lipitor 10 mg tablet RxNorm: 294573 Tablet(s) PO every other day 1 tablet qo d 05/20/2013 06/11/2013 In active Pen Needle 32 x 5/32" RxNorm: Miscellaneous use with byetta pen 05/07/2013 09/03/2013 Inactive Effexor XR 150 mg ca psule,extended release RxNorm: 497684 1 Capsule(s) PO daily TAKE 1 CAPSULE DAILY 05/07/2013 05/26/2013 Inactive Pen Needle 32 x 5/32" RxNorm: Miscellaneous use with byetta pen 05/06/2013 05/06/2013 Inactive Pen Needle 32 x 5/32" RxNorm: Miscellaneous use with byetta pen 05/06/2013 05/05/2013 Inactive Byetta 5 mcg/0.02 mL per dose Sub-Q Pen Injector RxNorm: 058181 1 Unit Dose SQ BID 04/29/2013 05/19/2013 In active metformin ER 500 mg tablet,extended release 24 hr RxNorm: 813338 1 Tablet(s) PO BID 04/28/2013 06/19/2013 In active Byetta 5 mcg/0.02 mL per dose Sub-Q Pen Injector RxNorm: 977163 1 Unit Dose SQ BID 04/28/2013 04/27/2013 In active Byetta 5 mcg/0.02 mL per dose Sub-Q Pen Injector RxNorm: 406192 1 Unit Dose SQ BID 04/28/2013 04/28/2013 In active Influenza Virus Vacc ine 0.5 mL RxNorm: IM 04/27/2013 04/27/2013 Inactive glyburide 2.5 mg tablet RxNorm: 822676 1 Tablet(s) PO BID 04/27/2013 04/27/2013 Inactive glyburide 2.5 mg tablet RxNorm: 890007 1/2 Tablet(s) PO daily 04/13/2013 04/26/2013 Inactive glyburide 2.5 mg tablet RxNorm: 421585 1 Tablet(s) PO daily 04/09/2013 04/12/2013 Inactive metformin ER 500 mg tablet,extended release 24 hr RxNorm: 807122 2 Tablet(s) PO BID 04/09/2013 04/27/2013 In active Lipitor 10 mg tablet RxNorm: 424205 Tablet(s) PO TAKE 1 TABLET AT BEDTIME 03/17/2013 05/19/2013 In active losartan 25 mg tablet RxNorm: 105038 1 Tablet(s) PO daily 02/12/2013 06/11/2013 Inactive montelukast 10 mg ta blet RxNorm: 523394 1 Tablet(s) PO daily 02/09/2013 02/08/2013 Inactive montelukast 10 mg ta blet RxNorm: 158831 1 Tablet(s) PO daily 02/09/2013 02/03/2014 Inactive losartan 25 mg tablet RxNorm: 993406 1 Tablet(s) PO daily 02/09/2013 02/11/2013 Inactive losartan 25 mg tablet RxNorm: 320408 1 Tablet(s) PO daily 01/26/2013 02/08/2013 Inactive Effexor XR 150 mg ca psule,extended release RxNorm: 033425 Capsule(s) PO TAKE 1 CAPSULE DAILY 12/24/2012 05/06/2013 Inactive metformin ER 500 mg tablet,extended release 24 hr RxNorm: 272014 Tablet(s) PO TAKE 2 TABLETS TWICE A DAY 12/24/2012 04/08/2013 Inactive pilocarpine 5 mg tablet RxNorm: 3948092 Tablet(s) PO TAKE 4 TABLETS DAILY 12/24/2012 01/31/2014 In active levofloxacin 500 mg tablet RxNorm: 999138 1 Tablet(s) PO daily 12/15/2012 12/19/2012 Inactive Nexium 40 mg capsule ,delayed release RxNorm: 213593 Capsule(s) PO daily T MILO 1 CAPSULE DAILY 11/03/2012 06/17/2013 Inactive Claritin-D 12 Hour 5 mg-120 mg tablet,extended release RxNorm: 6672947 1 Tablet(s) PO BID 10/29/2012 10/23/2013 Inactive TAKE 1 TABLET BY MOUTH TWICE DAILY fluticasone 50 mcg/a ctuation nasal spray,suspension RxNorm: 1210399 1 [place] NASAL BID 10/08/2012 06/17/2013 Inactive Claritin-D 12 Hour 5 mg-120 mg tablet,extended release RxNorm: 7266791 1 Tablet(s) PO BID 09/09/2012 2012 Inactive TAKE 1 TABLET BY MOUTH TWICE DAILY montelukast 10 mg ta blet RxNorm: 352365 1 Tablet(s) PO daily 08/20/2012 02/08/2013 Inactive Synthroid 50 mcg tablet RxNorm: 612653 Tablet(s) PO TAKE 1 TABLET DAILY 08/18/2012 09/20/2013 In active Nexium 40 mg capsule ,delayed release RxNorm: 091650 Capsule(s) PO TAKE 1 CAPSULE DAILY 08/18/2012 11/02/2012 Inactive furosemide 40 mg tablet RxNorm: 541190 Tablet(s) PO TAKE 1 TABLET DAILY 08/18/2012 09/20/2013 In active Klor-Con 10 mEq tabl et,extended release RxNorm: 858443 Tablet(s) PO TAKE 1 T ABLET DAILY 08/18/2012 12/01/2013 Inactive Xanax 0.5 mg tablet RxNorm: 996807 1 Tablet(s) PO Q6 PRN 07/17/2012 10/13/2015 Inactive Zithromax 250 mg tablet RxNorm: 754944 Tablet(s) PO 07/14/2012 11/10/2013 Inactive disp one z ankit fluticasone 50 mcg/a ctuation Nasal [place], Susp RxNorm: 9786512 1 [place] NASAL BID 06/27/2012 10/07/2012 In active Anusol-HC 25 mg Supp ository RxNorm: 4085218 1 Suppository RTL QD AY PRN 06/09/2012 12/22/2018 In active daily x 3 days then prnno longer than 10 days in row use Claritin-D 12 Hour 5 mg-120 mg tablet,extended release RxNorm: 8061176 1 Tablet(s) PO BID 05/22/2012 05/22/2012 Inactive TAKE 1 TABLET BY MOUTH TWICE DAILY Claritin-D 12 Hour 5 mg-120 mg tablet,extended release RxNorm: 7295770 Tablet(s) PO 05/12/2012 05/21/2012 In active TAKE 1 TABLET BY MOUTH TWICE DAILY fluticasone 50 mcg/a ctuation Nasal [place], Susp RxNorm: 4686067 1 [place] NASAL BID 05/06/2012 06/26/2012 In active Rocephin 500 mg Solu tion for Injection RxNorm: 0026878 Inj 01/1802/12/2012 Inactive metronidazole 500 mg Tab RxNorm: 907959 1 Tablet(s) PO TID 02/12/2012 02/18/2012 Inactive Kenalog 40 mg/mL [place] p for Injection RxNorm: 1061225 Milliliter(s) Inj 02/12/2012 02/12/2012 In active fluticasone 50 mcg/a ctuation Nasal [place], Susp RxNorm: 2492769 1 [place] NASAL BID 02/12/2012 05/05/2012 In active cefdinir 300 mg Cap RxNorm: 320451 1 Capsule(s) PO BID 02/12/2012 02/21/2012 Inactive Effexor XR 150 mg ca psule,extended release RxNorm: 123771 1 Capsule(s) PO daily 12/17/2011 12/10/2012 In active metformin ER 500 mg tablet,extended release 24 hr RxNorm: 075351 2 Tablet(s) PO BID 12/17/2011 05/14/2012 In active pilocarpine 5 mg tablet RxNorm: 6081287 4 Tablet(s) PO daily 12/17/2011 03/15/2012 Inactive Singulair 10 mg Tab RxNorm: 603352 1 Tablet(s) PO daily 11/27/2011 08/19/2012 Inactive Nexium 40 mg capsule ,delayed release RxNorm: 147207 1 Capsule(s) PO daily 11/26/2011 03/24/2012 In active Claritin-D 12 Hour 5 mg-120 mg tablet,extended release RxNorm: 9940613 1 Tablet(s) PO BID 11/14/2011 05/11/2012 Inactive Claritin-D 12 Hour 5 mg-120 mg Tab RxNorm: 8333764 1 Tablet(s) PO BID 10/31/2011 11/13/2011 In active Claritin-D 12 Hour 5 mg-120 mg Tab RxNorm: 1294770 1 Tablet(s) PO BID 10/29/2011 2011 In active Claritin-D 12 Hour 5 mg-120 mg Tab RxNorm: 6249749 1 Tablet(s) PO BID 10/29/2011 10/30/2011 In active Claritin-D 24 Hour 1 0 mg-240 mg Tab RxNorm: 9519015 1 Tablet(s) PO daily 10/23/2011 2011 In active levofloxacin 500 mg Tab RxNorm: 694495 1 Tablet(s) PO daily 08/28/2011 09/03/2011 Inactive Nasonex 50 mcg/actua tion [place] RxNorm: 737084 1 [place] NASAL BID 08/28/2011 11/25/2011 Inactive promethazine 25 mg/m L Injection RxNorm: 281178 1 Milliliter(s) Inj 08/23/2011 07/14/2013 Inactive glyburide 2.5 mg tablet RxNorm: 194844 1 Tablet(s) PO daily 08/23/2011 04/08/2013 Inactive Rocephin 500 mg Solu tion for Injection RxNorm: 1478969 1 Milliliter(s) Inj 08/23/2011 08/28/2011 In active Klor-Con 10 10 mEq t ablet,extended release RxNorm: 403052 1 Tablet(s) PO daily 08/06/2011 07/30/2012 In active Nexium 40 mg Capsule , delayed release RxNorm: 766839 1 Capsule(s) PO daily 08/06/2011 11/25/2011 In active furosemide 40 mg tablet RxNorm: 386808 1 Tablet(s) PO daily 08/06/2011 07/30/2012 Inactive Cymbalta 30 mg Cap RxNorm: 227889 1 Capsule(s) PO daily 07/26/2011 08/28/2011 Inactive Synthroid 50 mcg tablet RxNorm: 798510 Tablet(s) PO 06/21/2011 08/17/2012 Inactive TAKE 1 TABLET DAILY Neurontin 100 mg Cap RxNorm: 836279 2 Capsule(s) PO TID 06/19/2011 08/28/2011 Inactive ciprofloxacin 500 mg Tab RxNorm: 324144 1 Tablet(s) PO BID 06/19/2011 08/28/2011 Inactive Neurontin 100 mg Cap RxNorm: 820935 1 Capsule(s) PO QID 06/05/2011 06/18/2011 Inactive oxazepam 10 mg Cap RxNorm: 251718 1 Capsule(s) PO Q6 PRN 06/05/2011 10/02/2011 Inactive Influenza Virus Vacc ine 0.5 mL RxNorm: IM 06/05/2011 06/05/2011 Inactive hydrocodone-acetamin ophen 5 mg-500 mg Tab RxNorm: 576233 1 Tablet(s) PO Q6 PRN No Start Date Active Fish Oil 1,000 mg Cap RxNorm: 2 Capsule(s) PO BID No Start Date Active Zenpep 40,000-136,00 0-218,000 unit capsule,delayed release RxNorm: 0157350 1 Capsule(s) PO QID No Start Date Active Multiple Vitamins ch ewable tablet RxNorm: 1 Tablet(s) PO daily No Start Date Active mesalamine 4 gram/60 mL enema RxNorm: 024642 1 Milliliter(s) RTL d aily No Start Date Active aspirin 81 mg Cap, D elayed Release RxNorm: 144730 1 Capsule(s) PO daily No Start Date Active Vitamin B-12 1,000 m cg Tab RxNorm: 466479 2 Tablet(s) PO daily No Start Date Active Vitamin C With Darlyn Hips 1,000 mg Tab RxNorm: 472917 1 Tablet(s) PO daily No Start Date Active Lipitor 10 mg Tab RxNorm: 923594 1 Tablet(s) PO HS No Start Date 04/10/2011 Inactive EnteraGam 5 gram ora l powder packet RxNorm: 1 PO daily No S tart Date 12/22/2018 Inactive Lipitor 20 mg Tab RxNorm: 223915 1 Tablet(s) PO HS No Start Date 08/28/2011 Inactive Zithromax 250 mg tablet RxNorm: 062129 Tablet(s) PO No Start Date 07/13/2012 Inactive disp one z ankit Effexor XR 150 mg 24 hr Cap RxNorm: 210336 1 Capsule(s) PO daily No Start Date 12/16/2011 Inactive Bydureon 2 mg/0.65 m L subcutaneous pen injector RxNorm: 8428697 Milliliter(s) SQ QW No Start Date 10/13/2015 Inactive Centrum Ultra Women' s 18 mg-400 mcg Tab RxNorm: 1 Tablet(s) PO daily No Start Date 12/22/2018 Inactive furosemide 40 mg Tab RxNorm: 856603 1 Tablet(s) PO daily No Start Date 08/05/2011 Inactive Synthroid 25 mcg tablet RxNorm: 959382 1 Tablet(s) PO daily No Start Date 12/01/2013 Inactive Januvia 50 mg tablet RxNorm: 252673 1 Tablet(s) PO daily samples No Start Date 04/27/2013 Inactive Lipitor 10 mg tablet RxNorm: 864571 1 Tablet(s) PO daily No Start Date 03/16/2013 Inactive Crestor 10 mg tablet RxNorm: 931681 1 Tablet(s) PO QHS No Start Date 03/25/2016 Inactive Asacol HD 800 mg Tab RxNorm: 111281 2 Tablet(s) PO daily No Start Date 10/13/2015 Inactive pilocarpine 5 mg Tab RxNorm: 7828272 4 Tablet(s) PO daily No Start Date 12/16/2011 Inactive glyburide 2.5 mg Tab RxNorm: 781848 1 Tablet(s) PO BID No Start Date 08/22/2011 Inactive Claritin-D 24 Hour 1 0 mg-240 mg Tab RxNorm: 3618777 1 Tablet(s) PO daily No Start Date 10/22/2011 Inactive Vitamin D 1,000 unit Tab RxNorm: 825372 1 Tablet(s) PO daily No Start Date 10/13/2015 Inactive Tricor 145 mg Tab RxNorm: 345225 1 Tablet(s) PO daily No Start Date 10/14/2015 Inactive Zithromax Z-Ankit 250 mg tablet RxNorm: 396962 1 Tablet(s) PO UD No Start Date 11/06/2016 Inactive Synthroid 25 mcg tablet RxNorm: 531308 1 Tablet(s) PO daily No Start Date 05/01/2017 Inactive Claritin-D 12 Hour 5 mg-120 mg tablet,extended release RxNorm: 0849153 1 Tablet(s) PO BID No Start Date 12/23/2013 Inactive Singulair 10 mg Tab RxNorm: 414145 1 Tablet(s) PO daily No Start Date 11/26/2011 Inactive Linzess 290 mcg capsule RxNorm: 2300120 1 Capsule(s) PO daily No Start Date 12/22/2018 Inactive Calcium 600 + D(3) 6 00 mg (1,500)-200 unit Tab RxNorm: 509688 1 Tablet(s) PO daily No Start Date 10/13/2015 Inactive Lialda 1.2 gram tabl et,delayed release RxNorm: 312682 2 Tablet(s) PO daily No Start Date 09/17/2016 Inactive Effexor XR 150 mg 24 hr Cap RxNorm: 893077 1 Capsule(s) PO daily No Start Date 08/28/2011 Inactive aspirin 325 mg Tab RxNorm: 625303 1 Tablet(s) PO daily No Start Date 08/28/2011 Inactive Toprol XL 25 mg tabl et,extended release RxNorm: 545241 1 Tablet(s) PO daily No Start Date 06/11/2013 Inactive lisinopril 10 mg tablet RxNorm: 925407 1 Tablet(s) PO daily No Start Date 01/25/2013 Inactive Cymbalta 60 mg Cap RxNorm: 098719 1 Capsule(s) PO daily No Start Date 08/28/2011 Inactive Nexium 40 mg Cap RxNorm: 453214 1 Capsule(s) PO daily No Start Date 08/05/2011 Inactive dicyclomine 10 mg Cap RxNorm: 860660 1 Capsule(s) PO daily No Start Date 07/13/2013 Inactive Synthroid 50 mcg Tab RxNorm: 589108 1 Tablet(s) PO daily No Start Date 06/20/2011 Inactive metformin ER 500 mg 24 hr Tab RxNorm: 580689 2 Tablet(s) PO BID No Start Date 12/16/2011 Inactive Anusol-HC 25 mg Supp ository RxNorm: 0944734 1 Suppository RTL No Start Date 06/08/2012 Inactive daily x 3 days then prnno longer than 10 days in row use Medication Administered Medication Codes Instruc tions Start Date Status Kenalog 40 mg/mL suspension for injection RxNorm: 2481649 Milliliter 12/23/2018 No longer Active Kenalog 40 mg/mL suspension for injection RxNorm: 3395980 1Milliliter 05/26/2018 N o longer Active Influenza Virus Vaccine 0.5 mL RxNorm: 04/27/2013 No longer Active Rocephin 500 mg Solution for Injection RxNorm: 5422290 02/12/2012 No longer A ctive Kenalog 40 mg/mL Susp for Injection RxNorm: 0850337 Milliliter 02/12/2012 No longer Active Influenza Virus [...] mellitus 08/31/2014 stiff neck diabetes mellitus 08/10/2014 Kenyon's nurse advised her to get Mag Citrate, [...] Observation Code Item Item Code Result Date %Hba1C Sri058 % HbA1c 60592-0 6.6 % 04/01/2018 %Hba1C Kdx547 Gluc Ave 143 mg/dL 04/01/2018 Lipid Ord30 CHOL 178 mg/dL 04/01/2018 Lipid Ord30 HDL 50.0 mg/dl 04/01/2018 Lipid Ord30 TRIG 221 mg/dL 04/01/2018 Lipid Ord30 LDL 84 mg/dL 04/01/2018 Lipid Ord30 C/HDL 3.6 Ratio 04/01/2018 %Hba1C Fql806 % HbA1c 70307-9 6.7 % 11/25/2017 %Hba1C Ala870 Gluc Ave 146 mg/dL 11/25/2017 Comp Metabolic Rln754 NA 144 mEq/L 04/30/2017 Comp Metabolic Onp337 K 4.3 mEq/L 04/30/2017 Comp Metabolic Ron133 CL 105 mEq/L 04/30/2017 Comp Metabolic Ryu773 CO2 29.0 mEq/L 04/30/2017 Comp Metabolic Ahb482 AN ION GAP 14 04/30/2017 Comp Metabolic Qyi462 GL UCOSE 109 mg/dL 04/30/2017 Comp Metabolic Xfv247 Cr eat 1.0 mg/dL 04/30/2017 Comp Metabolic Kvx485 eG FR 58 ml/min/1.73m2 04/30 Comp Metabolic Wno342 BUN 17 mg/dL 04/30/2017 Comp Metabolic Alg466 B/ C Ratio 17.3 Ratio 04/30/2017 Comp Metabolic Ejp487 CA LCIUM 10.1 mg/dL 04/30/2017 Comp Metabolic Zfo920 AL K PHOS 47 U/L 04/30/2017 Comp Metabolic Wwq417 T(SGOT) 16 U/L 04/30/2017 Comp Metabolic Hrz473 AL T(SGPT) 16 U/L 04/30/2017 Comp Metabolic Dvt195 BI LI T 0.4 mg/dL 04/30/2017 Comp Metabolic Ljc091 AL BUMIN 4.5 g/dL 04/30/2017 Comp Metabolic Jbo046 TP RO 6.7 g/dL 04/30/2017 Comp Metabolic Ofh207 GL OB 2.2 g/dL 04/30/2017 Comp Metabolic Hzf337 A/ G Ratio 2.0 Ratio 04/30/2017 Comp Metabolic Sbk293 Os mo 289 mOsmo 04/30/2017 Cbc With [...] 28.2 pg 04/30/2017 Cbc With Differential Ord2 Estill% 6.5 % 04/30/2017 Cbc With Differential Ord2 [...] 1.12 K/ul 04/30/2017 Cbc With Differential Ord2 Estill ABS# 0.2 K/ul 04/30/2017 Cbc With Differential Ord2 Eos ABS# 0.1 K/ul 04/30/2017 Cbc With Differential Ord2 Baso ABS# 0.0 K/ul 04/30/2017 %Hba1C Aip338 % HbA1c 21922-8 6.7 % 04/30/2017 %Hba1C Jph748 Gluc Ave 146 mg/dL 04/30/2017 Tsh Ord6 hTSH II 1.36 uIU/mL 04/30/2017 Lipid Ord30 CHOL 160 mg/dL 04/30/2017 Lipid Ord30 HDL 51.0 mg/dl 04/30/2017 Lipid Ord30 TRIG 195 mg/dL 04/30/2017 Lipid Ord30 LDL 70 mg/dL 04/30/2017 Lipid Ord30 C/HDL 3.1 Ratio 04/30/2017 Free T4 Pbk298 FREE T4 0.75 ng/dL 04/30/2017 Ferritin Ord22 FERRITIN 89.9 ng/mL 11/09/2016 Parathyroid Hormone Ayd293 PTH 36.20 pg/ml 11/09/2016 Tibc Ord40 Iron 75 ug/dl 11/08/2016 Tibc Ord40 UIBC 325 ug/dL 11/08/2016 Tibc Ord40 TIBC 400 ug/dL 11/08/2016 Tibc Ord40 Fe-%Sat 18.8 % 11/08/2016 Comp Metabolic Elb450 NA 139 mEq/L 09/25/2016 Comp Metabolic Rmk072 K 4.3 mEq/L 09/25/2016 Comp Metabolic Lba809 CL 101 mEq/L 09/25/2016 Comp Metabolic Lnw128 CO2 31.0 mEq/L 09/25/2016 Comp Metabolic Mus590 AN ION GAP 11 09/25/2016 Comp Metabolic Qla239 GL UCOSE 116 mg/dL 09/25/2016 Comp Metabolic Cbo501 Cr eat 1.1 mg/dL 09/25/2016 Comp Metabolic Jut724 eG FR 53 ml/min/1.73m2 09/25 Comp Metabolic Qeq928 BUN 22 mg/dL 09/25/2016 Comp Metabolic Qfx933 B/ C Ratio 20.8 Ratio 09/25/2016 Comp Metabolic Zsw717 CA LCIUM 10.3 mg/dL 09/25/2016 Comp Metabolic Lcl574 AL K PHOS 52 U/L 09/25/2016 Comp Metabolic Sng849 T(SGOT) 16 U/L 09/25/2016 Comp Metabolic Gkb792 AL T(SGPT) 17 U/L 09/25/2016 Comp Metabolic Wej981 BI LI T 0.3 mg/dL 09/25/2016 Comp Metabolic Emk411 AL BUMIN 4.7 g/dL 09/25/2016 Comp Metabolic Mfe013 TP RO 6.9 g/dL 09/25/2016 Comp Metabolic Pds881 GL OB 2.2 g/dL 09/25/2016 Comp Metabolic Nml998 A/ G Ratio 2.1 Ratio 09/25/2016 Comp Metabolic Vdy006 Os mo 282 mOsmo 09/25/2016 Lipid Ord30 CHOL 182 mg/dL 09/25/2016 Lipid Ord30 HDL 55.0 mg/dl 09/25/2016 Lipid Ord30 TRIG 168 mg/dL 09/25/2016 Lipid Ord30 LDL 93 mg/dL 09/25/2016 Lipid Ord30 C/HDL 3.3 Ratio 09/25/2016 %Hba1C Pjx932 % HbA1c 50276-3 7.0 % 09/25/2016 %Hba1C Iij249 Gluc Ave 154 mg/dL 09/25/2016 Free T4 Lls079 FREE T4 0.80 ng/dL 09/25/2016 Cbc With [...] 28.3 pg 09/25/2016 Cbc With Differential Ord2 Estill% 8.2 % 09/25/2016 Cbc With Differential Ord2 [...] 1.29 K/ul 09/25/2016 Cbc With Differential Ord2 Estill ABS# 0.3 K/ul 09/25/2016 Cbc With Differential Ord2 Eos ABS# 0.0 K/ul 09/25/2016 Cbc With Differential Ord2 Baso ABS# 0.0 K/ul 09/25/2016 Tsh Ord6 hTSH II 1.01 uIU/mL 09/25/2016 Tsh Ord6 hTSH II 1.35 uIU/mL 06/04/2016 Comp Metabolic Okw071 NA 135 mEq/L 06/04/2016 Comp Metabolic Fys015 K 3.8 mEq/L 06/04/2016 Comp Metabolic Gcn927 CL 99 mEq/L 06/04/2016 Comp Metabolic Jbc642 CO2 30.0 mEq/L 06/04/2016 Comp Metabolic Wfc555 AN ION GAP 10 06/04/2016 Comp Metabolic Kdy539 GL UCOSE 171 mg/dL 06/04/2016 Comp Metabolic Cff022 Cr eat 1.0 mg/dL 06/04/2016 Comp Metabolic Gvg575 eG FR 59 ml/min/1.73m2 06/04 Comp Metabolic Uju003 BUN 22 mg/dL 06/04/2016 Comp Metabolic Ypi908 B/ C Ratio 22.4 Ratio 06/04/2016 Comp Metabolic Zwk667 CA LCIUM 10.4 mg/dL 06/04/2016 Comp Metabolic Ibv543 AL K PHOS 68 U/L 06/04/2016 Comp Metabolic Auc903 T(SGOT) 22 U/L 06/04/2016 Comp Metabolic Fre695 AL T(SGPT) 25 U/L 06/04/2016 Comp Metabolic Iyh139 BI LI T 0.4 mg/dL 06/04/2016 Comp Metabolic Lbc250 AL BUMIN 4.5 g/dL 06/04/2016 Comp Metabolic Vld445 TP RO 7.0 g/dL 06/04/2016 Comp Metabolic Zhi067 GL OB 2.5 g/dL 06/04/2016 Comp Metabolic Bpe870 A/ G Ratio 1.8 Ratio 06/04/2016 Comp Metabolic Pxd304 Os mo 277 mOsmo 06/04/2016 Cbc With [...] 29.1 pg 06/04/2016 Cbc With Differential Ord2 Estill% 7.9 % 06/04/2016 Cbc With Differential Ord2 [...] 1.58 K/ul 06/04/2016 Cbc With Differential Ord2 Estill ABS# 0.5 K/ul 06/04/2016 Cbc With Differential Ord2 Eos ABS# 0.1 K/ul 06/04/2016 Cbc With Differential Ord2 Baso ABS# 0.1 K/ul 06/04/2016 %Hba1C Npt178 % HbA1c 48193-7 8.7 % 06/04/2016 %Hba1C Spu879 Gluc Ave 203 mg/dL 06/04/2016 Free T4 Ron858 FREE T4 0.84 ng/dL 06/04/2016 Lipid Ord30 CHOL 111 mg/dL 06/04/2016 Lipid Ord30 HDL 51.0 mg/dl 06/04/2016 Lipid Ord30 TRIG 185 mg/dL 06/04/2016 Lipid Ord30 LDL 23 mg/dL 06/04/2016 Lipid Ord30 C/HDL 2.2 Ratio 06/04/2016 Microalbumin Yqx678 Micr oAlb <0.7 mg/dL 06/04/2016 Comp Metabolic Eqn434 NA 142 mEq/L 03/12/2016 Comp Metabolic Tfa830 K 4.1 mEq/L 03/12/2016 Comp Metabolic Eic685 CL 103 mEq/L 03/12/2016 Comp Metabolic Gnp289 CO2 30.0 mEq/L 03/12/2016 Comp Metabolic Yzq335 AN ION GAP 13 03/12/2016 Comp Metabolic Iel800 GL UCOSE 138 mg/dL 03/12/2016 Comp Metabolic Idk119 Cr eat 0.8 mg/dL 03/12/2016 Comp Metabolic Daz142 eG FR 75 ml/min/1.73m2 03/12 Comp Metabolic Bda599 BUN 18 mg/dL 03/12/2016 Comp Metabolic Hzv477 B/ C Ratio 22.8 Ratio 03/12/2016 Comp Metabolic Gkp256 CA LCIUM 9.8 mg/dL 03/12/2016 Comp Metabolic Drl371 AL K PHOS 83 U/L 03/12/2016 Comp Metabolic Evt168 T(SGOT) 15 U/L 03/12/2016 Comp Metabolic Erm136 AL T(SGPT) 20 U/L 03/12/2016 Comp Metabolic Lag889 BI LI T 0.4 mg/dL 03/12/2016 Comp Metabolic Scs879 AL BUMIN 4.2 g/dL 03/12/2016 Comp Metabolic Klo709 TP RO 6.4 g/dL 03/12/2016 Comp Metabolic Kbr019 GL OB 2.2 g/dL 03/12/2016 Comp Metabolic Tyg871 A/ G Ratio 1.9 Ratio 03/12/2016 Comp Metabolic Ano776 Os mo 287 mOsmo 03/12/2016 %Hba1C Wlp231 % HbA1c 30735-5 7.2 % 03/12/2016 %Hba1C Uqf920 Gluc Ave 160 mg/dL 03/12/2016 Comp Metabolic Req049 NA 138 mEq/L 10/18/2015 Comp Metabolic Wtt110 K 4.1 mEq/L 10/18/2015 Comp Metabolic Phq292 CL 97 mEq/L 10/18/2015 Comp Metabolic Pvl812 CO2 32.0 mEq/L 10/18/2015 Comp Metabolic Hmd162 AN ION GAP 13 10/18/2015 Comp Metabolic Afq610 GL UCOSE 145 mg/dL 10/18/2015 Comp Metabolic Znh030 Cr eat 1.1 mg/dL 10/18/2015 Comp Metabolic Ngo696 eG FR 50 ml/min/1.73m2 10/17 Comp Metabolic Qxi979 BUN 23 mg/dL 10/18/2015 Comp Metabolic Bqy613 B/ C Ratio 20.4 Ratio 10/18/2015 Comp Metabolic Wqy828 CA LCIUM 10.3 mg/dL 10/18/2015 Comp Metabolic Yhc766 AL K PHOS 59 U/L 10/18/2015 Comp Metabolic Fdc132 T(SGOT) 17 U/L 10/18/2015 Comp Metabolic Epo875 AL T(SGPT) 21 U/L 10/18/2015 Comp Metabolic Whe184 BI LI T 0.4 mg/dL 10/18/2015 Comp Metabolic Vtd013 AL BUMIN 4.6 g/dL 10/18/2015 Comp Metabolic Krj688 TP RO 7.1 g/dL 10/18/2015 Comp Metabolic Xec032 GL OB 2.5 g/dL 10/18/2015 Comp Metabolic Nhg237 A/ G Ratio 1.9 Ratio 10/18/2015 Comp Metabolic Lsd162 Os mo 282 mOsmo 10/18/2015 Tsh Ord6 hTSH II 1.81 uIU/mL 10/18/2015 %Hba1C Els322 % HbA1c 64918-2 7.3 % 10/18/2015 %Hba1C Ceu758 Gluc Ave 163 mg/dL 10/18/2015 Iron Ord72 Iron 90 ug/dl 10/18/2015 Free T4 Tdj513 FREE T4 0.75 ng/dL 10/18/2015 Cbc With [...] 29.0 pg 10/18/2015 Cbc With Differential Ord2 Estill% 6.8 % 10/18/2015 Cbc With Differential Ord2 [...] 1.93 K/ul 10/18/2015 Cbc With Differential Ord2 Estill ABS# 0.5 K/ul 10/18/2015 Cbc With Differential [...] Lipid Ord30 C/HDL 2.3 Ratio 10/18/2015 TSH 9440816 TSH 1.042 uIU/ML 12/24/2012 A1C HPLC 3670079 A1C HPLC 26855-6 7.6 % 12/24/2012 ESR 7841640 ESR 2 MM/HR 12/23/2012 CHEM 14 8702745 AST 20 U/L 12/23/2012 CHEM 14 8514714 ALT 24 IU/L 12/23/2012 CHEM 14 8265260 BUN 16 MG/DL 12/23/2012 CHEM 14 2347201 ALBUMIN 4.7 GM/DL 12/23/2012 CHEM 14 9317997 CHLORIDE 102 MMOL/L 12/23/2012 CHEM 14 4887027 BILI TOT 0.3 MG/DL 12/23/2012 CHEM 14 0912652 ALK PHOS 109 U/L 12/23/2012 CHEM 14 7157789 SODIUM 142 MMOL/L 12/23/2012 CHEM 14 1913280 CREATINI NE 0.93 MG/DL 12/23/2012 CHEM 14 5441812 CALCIUM 10.0 MG/DL 12/23/2012 CHEM 14 1569315 POTASSIUM 3.7 MMOL/L 12/23/2012 CHEM 14 2734396 PROT TOT 7.2 GM/DL 12/23/2012 CHEM 14 0615340 GLUCOSE 116 MG/DL 12/23/2012 CHEM 14 2636294 BICARB 32 MMOL/L 12/23/2012 CHEM 14 2498617 ANION GAP 8 MEQ/L 12/23/2012 GFR CALC 1049404 GFR AA >60 ML/MIN 12/23/2012 GFR CALC 9742395 GFR NON -AA 59.0L ML/MIN 3 CBC 7545428 WBC 5.5 10e9/L 12/23/2012 CBC 1874927 RBC 4.90 10e12/L 12/23/2012 CBC 0857564 HGB 14.1 g/dL 12/23/2012 CBC 7635695 HCT DET 42.4 % 12/23/2012 CBC 2390323 MCV 86.5 fL 12/23/2012 CBC 3552985 MCH 28.8 pg 12/23/2012 CBC 6756186 MCHC 33.3 g/dL 12/23/2012 CBC 4283486 PLT 320 10e9/L 12/23/2012 CBC 2374637 MPV 9.9 fL 12/23/2012 CBC 4845771 BRANDIE % 63.7 % 12/23/2012 CBC 0024571 LY % 24.6 % 12/23/2012 CBC 9368638 MON % 6.3 % 12/23/2012 CBC 5574388 EOS % 4.7 % 12/23/2012 CBC 7340234 BASO % 0.7 % 12/23/2012 CBC 4450095 RDW 15.0 % 12/23/2012 CBC 1033506 ABS BRANDIE 3.50 10e9/L 12/23/2012 CBC 5531193 ABS LYMPH 1.35 10e9/L 12/23/2012 CBC 9914110 ABS MONO 0.35 10e9/L 12/23/2012 CBC 7243432 ABS EOS 0.26 10e9/L 12/23/2012 CBC 3652628 ABS BASO 0.04 10e9/L 12/23/2012 CBC 6927800 RDW-SD 47.1 fL 12/23/2012 CRP 20071212 CRP 0.1 MG/DL 12/23/2012 URINALYSIS NONAUTO W/O SCOPE 26385 Specific Brandon 1.005 DateTime(Free Text in ) URINALYSIS NONAUTO W/O SCOPE 74995 PH 7.5 DateTime(Free Mina t in ) URINALYSIS NONAUTO W/O SCOPE 68470 GLUCOSE NEG DateTime(Free Mina t in ) URINALYSIS NONAUTO W/O SCOPE 95807 Protein NEG DateTime(Free Mina t in Apr) URINALYSIS NONAUTO W/O SCOPE 93897 Blood NEG DateTime(Free Mina t in ) URINALYSIS NONAUTO W/O SCOPE 54852 Bilirubin NEG DateTime(Free Mina t in ) URINALYSIS NONAUTO W/O SCOPE 53840 Ketones NEG DateTime(Free Mina t in Aprima) URINALYSIS NONAUTO W/O SCOPE 33599 Urobilinogen NEG DateTime(Free Text in Aprima) URINALYSIS NONAUTO W/O SCOPE 77083 Nitrite NEG DateTime(Free Mina t in Aprima) URINALYSIS NONAUTO W/O SCOPE 32085 Leukocytes NEG DateTime(Free Text in Aprima) Review of Systems System Result Effective Dates [...] facial 11/25/2017 Neurologic No syncope Psychiatric anxiety 0404/2018 Psychiatric depression 0 11/25/2017 Endocrine diabetes mellitus [...] 03/2016 Neurologic No dizziness 03/26/2016 Neurologic headache 08/0 03/2016 Neurologic No pain, facial 03/26/2016 Neurologic neck pain 03/2016 Neurologic No syncope Psychiatric anxiety 08/0 03/2016 Psychiatric depression 0 03/26/2016 Endocrine diabetes [...] pain 01/2016 Neurologic No syncope Psychiatric anxiety 0 01/2016 Psychiatric depression 0 11/23/2015 Endocrine diabetes [...] rash 01/2011 Dermatologic No sores Psychiatric anxiety 01/2011 Musculoskeletal arthralgia(s) 07/24/2011 Musculoskeletal myalgias 07/24/2011 Psychiatric depression 1 09/24/2010 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 Neurologic paresthesia 1 09/24/2010 Neurologic No dizziness 06/19/2011 Neurologic No headache 1 08/19/2010 Psychiatric anxiety 08/2010 Psychiatric No depression 06/19/2011 Constitutional No [...] accomodation 06/12/2013 None Full Exam - General 1994 [...] developed 05/20/2013 None Full Exam - General 1995 Constitutional general appearance Overall: in no acute distress 05/20/2013 None Full Exam - General 1995 Constitutional general appearance Overall: well nourished 05/20/2013 None Full Exam - General 1994 Eyes pupils and irises Overall: pupils equal, round, reactive to light and accomodation 05/20/2013 None Full Exam - General 1995 Ears/Nose/Throat otoscopic exam Overall: external auditory canals clear 05/20/2013 None Full Exam - General 1995 Ears/Nose/Throat otoscopic exam Overall: tympanic membranes clear 05/20/2013 None Full Exam - General 1995 Ears/Nose/Throat oral cavity/pharynx/larynx Overall: oral mucosa clear 05/20/2013 None Full Exam - General 1995 Ears/Nose/Throat oral cavity/pharynx/larynx Overall: oropharyngeal mucosa clear 05/20/2013 None Full Exam - General 1995 Ears/Nose/Throat oral cavity/pharynx/larynx Overall: no masses 05/20/2013 None Full Exam - General 1994 Respiratory auscultation Overall: breath sounds clear bilaterally 05/20/2013 None Full Exam - General 1994 Respiratory respiratory effort/rhythm Overall: no retractions 05/20/2013 None Full Exam - General 1994 Respiratory respiratory effort/rhythm Overall: normal rate 05/20/2013 None Full Exam - General 1994 Cardiovascular auscultation of heart Overall: regular rate 05/20/2013 None Full Exam - General 1994 Cardiovascular auscultation of heart Overall: normal heart sounds 05/20/2013 None Full Exam - General 1994 Cardiovascular auscultation of heart Overall: no murmurs 05/20/2013 None Full Exam - General 1994 Abdomen abdominal exam Overall: no tenderness 05/20/2013 None Full Exam - General 1994 Abdomen [...] benign 04/09/2013 None Full Exam - General 1995 Musculoskeletal [...] accomodation 01/26/2013 None Full Exam - General 1994 Ears/Nose/Throat otoscopic exam Overall: tympanic membranes clear 01/26/2013 None Full Exam - General 1994 Ears/Nose/Throat oral cavity/pharynx/larynx Overall: oral mucosa clear 01/26/2013 None Full Exam - General 1994 Ears/Nose/Throat oral cavity/pharynx/larynx Overall: oropharyngeal mucosa clear 01/26/2013 None Full Exam - General 1994 Ears/Nose/Throat oral cavity/pharynx/larynx Overall: no masses 01/26/2013 [...] murmurs 01/26/2013 None Full Exam - General 1995 Abdomen abdominal exam Overall: no tenderness 01/26/2013 None Full Exam - General 1995 Abdomen abdominal exam Overall: normal bowel sounds 01/26/2013 None Full Exam - General 1995 Musculoskeletal spine, ribs and pelvis Overall: ribs benign 01/26/2013 None Full Exam - General 1995 Musculoskeletal spine, ribs and pelvis Overall: spine benign 01/26/2013 None Full Exam - General 1995 Musculoskeletal spine, ribs and pelvis Overall: good posture 01/26/2013 None Full Exam - General 1995 Musculoskeletal head and neck Overall: head atraumatic 01/26/2013 None Full Exam - General 1995 Musculoskeletal head and neck Overall: cervical spine benign 01/26/2013 None Full Exam - General 1995 Neurologic [...] posture 12/23/2012 None Full Exam - General 1994 [...] clear 12/23/2012 None Full Exam - General 1994 Ears/Nose/Throat otoscopic exam Overall: tympanic membranes clear 12/23/2012 None Full Exam - General 1995 Ears/Nose/Throat oral cavity/pharynx/larynx Overall: oral mucosa clear 12/23/2012 None Full Exam - General 1994 [...] level 12/15/2012 None Full Exam - General 1995 Ears/Nose/Throat oral cavity/pharynx/larynx Overall: oral mucosa clear 12/15/2012 None Full Exam - General 1995 Ears/Nose/Throat oral cavity/pharynx/larynx Overall: oropharyngeal mucosa clear 12/15/2012 None Full Exam - General 1995 Ears/Nose/Throat oral cavity/pharynx/larynx Overall: no masses 12/15/2012 None Full Exam - General 1995 Respiratory auscultation Upper lung field: a normal exam 12/15/2012 None Full Exam - General 1995 Respiratory auscultation Lower lung field: crackles 12/15/2012 None Full Exam - General 1995 Respiratory respiratory effort/rhythm Overall: no retractions 12/15/2012 None Full Exam - General 1995 Respiratory respiratory effort/rhythm Overall: normal rate 12/15/2012 None Full Exam - General 1995 Cardiovascular extremities Overall: no clubbing 12/15/2012 None Full Exam - General 1995 [...] tender 12/15/2012 bilaterally Full Exam - General 1994 Integument inspection of skin Overall: no rash, lesions 12/15/2012 None Full Exam - General 1994 Psychiatric orientation/consciousness Overall: oriented to person, place and time 12/15/2012 None Full Exam - General 1994 Psychiatric mood and affect Overall: normal mood and affect 12/15/2012 None Full Exam - General 1994 Psychiatric mood and affect Mood: happy 12/15/2012 None Full Exam - General 1994 Constitutional general appearance Overall: well developed 10/22/2012 None Full Exam - General 1994 Constitutional general appearance Overall: in no acute distress 10/22/2012 None Full Exam - General 1994 Constitutional general appearance Overall: well nourished 10/22/2012 [...] masses 10/22/2012 None Full Exam - General 1995 Respiratory auscultation Overall: breath sounds clear bilaterally 10/22/2012 None Full Exam - General 1995 Respiratory respiratory effort/rhythm Overall: no retractions 10/22/2012 [...] murmurs 10/22/2012 None Full Exam - General 1994 Abdomen abdominal exam Overall: no tenderness 10/22/2012 None Full Exam - General 1995 Abdomen abdominal exam Overall: normal bowel sounds 10/22/2012 None Full Exam - General 1995 Musculoskeletal spine, ribs and pelvis Overall: ribs benign 10/22/2012 None Full Exam - General 1995 Musculoskeletal spine, ribs and pelvis Overall: spine benign 10/22/2012 None Full Exam - General 1994 Musculoskeletal spine, ribs and pelvis Overall: good posture 10/22/2012 None Full Exam - General 1994 Musculoskeletal head and neck Overall: head atraumatic 10/22/2012 None Full Exam - General 1994 Musculoskeletal head and neck Overall: cervical spine benign 10/22/2012 None Full Exam - General 1994 [...] developed 08/21/2012 None Full Exam - General 1995 Constitutional general appearance Overall: in no acute distress 08/21/2012 None Full Exam - General 1995 Constitutional general appearance Overall: well nourished 08/21/2012 None Full Exam - General 1994 Eyes pupils and irises Overall: pupils equal, round, reactive to light and accomodation 08/21/2012 None Full Exam - General 1995 [...] bilaterally 08/21/2012 None Full Exam - General 1994 Respiratory respiratory effort/rhythm Overall: no retractions 08/21/2012 None Full Exam - General 1994 Respiratory respiratory effort/rhythm Overall: normal rate 08/21/2012 None Full Exam - General 1994 Cardiovascular auscultation of heart Overall: regular rate 08/21/2012 None Full Exam - General 1994 Cardiovascular auscultation of heart Overall: normal heart sounds 08/21/2012 None Full Exam - General 1994 Cardiovascular auscultation of heart Overall: no murmurs 08/21/2012 None Full Exam - General 1994 Abdomen abdominal exam Overall: no tenderness 08/21/2012 None Full Exam - General 1994 Abdomen [...] sounds 07/08/2012 None Full Exam - General 1995 Musculoskeletal [...] 06/09/2012 None Full Exam - General 1994 Neurologic deep tendon reflexes Overall: deep tendon reflexes intact 06/09/2012 None Full Exam - General 1994 Neurologic gait Overall: no ataxia, no unsteadiness 06/09/2012 None Full Exam - General 1994 Psychiatric orientation/consciousness Overall: oriented to person, place and time 06/09/2012 None Full Exam - General 1994 Psychiatric mood and affect Overall: normal mood and affect 06/09/2012 None Full Exam - General 1994 Constitutional general appearance Overall: well nourished 02/12/2012 None Full Exam - General 1994 Constitutional general appearance Overall: well developed 02/12/2012 None Full Exam - General 1994 Constitutional general appearance Overall: in no acute distress 02/12/2012 None Full Exam - General 1994 Eyes pupils and irises Overall: pupils equal, round, reactive to light and accomodation 02/12/2012 None Full Exam - General 1994 Ears/Nose/Throat oral cavity/pharynx/larynx Overall: oral mucosa clear 02/12/2012 None Full Exam - General 1994 Ears/Nose/Throat oral cavity/pharynx/larynx Overall: oropharyngeal mucosa clear 02/12/2012 None Full Exam - General 1995 Ears/Nose/Throat oral cavity/pharynx/larynx Overall: no masses 02/12/2012 None Full Exam - General 1995 Respiratory respiratory effort/rhythm Overall: no retractions 02/12/2012 None Full Exam - General 1995 Respiratory respiratory effort/rhythm Overall: normal rate 02/12/2012 None Full Exam - General 1995 Cardiovascular auscultation of heart Overall: regular rate 02/12/2012 None Full Exam - General 1994 Cardiovascular auscultation of heart Overall: normal heart sounds 02/12/2012 None Full Exam - General 1994 Cardiovascular auscultation of heart Overall: no murmurs 02/12/2012 None Full Exam - General 1995 Cardiovascular extremities Overall: no clubbing 02/12/2012 None [...] gait 11/14/2011 None Full Exam - General 1994 Constitutional general appearance Overall: well nourished 10/08/2011 None Full Exam - General 1994 Constitutional general appearance Overall: well developed 10/08/2011 None Full Exam - General 1994 Constitutional general appearance Overall: in no acute distress 10/08/2011 None Full Exam - General 1994 Eyes pupils and irises Overall: pupils equal, round, reactive to light and accomodation 10/08/2011 None Full Exam - General 1994 Ears/Nose/Throat otoscopic exam Overall: external auditory canals clear 10/08/2011 None Full Exam - General 1994 Ears/Nose/Throat otoscopic exam Tympanic membrane: air-fluid level 10/08/2011 None Full Exam - General 1994 Respiratory auscultation Lower lung field: crackles 10/08/2011 None Full Exam - General 1994 Respiratory auscultation Upper lung field: a normal exam 10/08/2011 None Full Exam - General 1994 Respiratory respiratory effort/rhythm Overall: no retractions 10/08/2011 None Full Exam - General 1994 Respiratory respiratory effort/rhythm Overall: normal rate 10/08/2011 None Full Exam - General 1995 Cardiovascular auscultation of heart Overall: regular rate 10/08/2011 None Full Exam - General 1995 Cardiovascular auscultation of heart Overall: normal heart sounds 10/08/2011 None Full Exam - General 1995 Abdomen abdominal exam Overall: no tenderness 10/08/2011 None Full Exam - General 1995 Abdomen abdominal exam Overall: normal bowel sounds 10/08/2011 None Full Exam - General 1995 Lymphatic neck nodes Overall: shotty lymphadenopathy 10/08/2011 None Full Exam - General 1995 Integument inspection of skin Overall: no rash, lesions 10/08/2011 None Full Exam - General 1995 Psychiatric orientation/consciousness Overall: oriented to person, place and time 10/08/2011 None Full Exam - General 1995 Psychiatric mood and affect Mood: happy 10/08/2011 None Full Exam - General 1995 Psychiatric mood and affect Overall: normal mood and affect 10/08/2011 None Full Exam - General 1995 Constitutional general appearance Overall: well nourished 08/28/2011 None Full Exam - General 1995 Constitutional general appearance Overall: well developed 08/28/2011 None Full Exam - General 1995 Constitutional general appearance Overall: in no acute distress 08/28/2011 None Full Exam - General 1994 Eyes [...] retractions 08/28/2011 None Full Exam - General 1994 Respiratory respiratory effort/rhythm Overall: normal rate 08/28/2011 None Full Exam - General 1995 Cardiovascular auscultation of heart Overall: regular rate 08/28/2011 None Full Exam - General 1995 Cardiovascular auscultation of heart Overall: normal heart sounds 08/28/2011 None Full Exam - General 1995 Cardiovascular auscultation of heart Overall: no murmurs 08/28/2011 None Full Exam - General 1995 Cardiovascular extremities Overall: no clubbing 08/28/2011 None Full Exam - General 1994 Lymphatic neck nodes Overall: shotty lymphadenopathy 08/28/2011 None Full Exam - General 1994 Musculoskeletal head and neck Cervical Spine: tender 08/28/2011 bilaterally Full Exam - General 1994 Psychiatric orientation/consciousness Overall: oriented to person, place and time 08/28/2011 None Full Exam - General 1995 Psychiatric mood and affect Overall: normal mood and affect 08/28/2011 None Full Exam - General 1995 Constitutional general appearance Overall: well nourished 08/23/2011 None Full Exam - General 1995 Constitutional general appearance Overall: well developed 08/23/2011 None Full Exam - General 1994 Constitutional general appearance Overall: in no acute distress 08/23/2011 None Full Exam - General 1994 Eyes pupils and irises Overall: pupils equal, round, reactive to light and accomodation 08/23/2011 None Full Exam - General 1994 Ears/Nose/Throat otoscopic exam External auditory canal: complete cerumen impaction 08/23/2011 None Full Exam - General 1994 Psychiatric mood and affect Overall: normal mood and affect 08/23/2011 None Full Exam - General 1995 Lymphatic neck nodes Overall: shotty lymphadenopathy 08/23/2011 None Full Exam - General 1994 Ears/Nose/Throat otoscopic exam Tympanic membrane: not visualized [...] Procedure Codes Date THER/PROPH/DIAG INJ SC/IM CPT-4: 89346 12/23/2018 TRIAMCINOLONE ACET I [place] NOS CPT-4: J3301 12/23/2018 THER/PROPH/DIAG INJ SC/IM CPT-4: 83215 05/26/2018 TRIAMCINOLONE ACET I [place] NOS CPT-4: J3301 05/26/2018 FLU VAC NO PRSV 4 VA L 3 YRS+ CPT-4: 82462 05/02/2017 ADMIN INFLUENZA VIRU S VAC CPT-4: G0008 05/02/2017 ADMIN PNEUMOCOCCAL V ACCINE SNOMED CT: 76950429 CPT-4: G0009 05/02/2017 PNEUMOCOCCAL VACC [address]: 45402086 CPT-4: 27766 05/02/2017 FLU VAC NO PRSV 4 VA L 3 YRS+ CPT-4: 42438 05/06/2014 ADMIN PNEUMOCOCCAL V ACCINE SNOMED CT: 27654264 CPT-4: G0009 05/06/2014 PRESCRIP TRANSMIT A ERX SY CPT-4: G8553 06/12/2013 PRESCRIP TRANSMIT A ERX SY CPT-4: G8553 05/20/2013 ADMIN INFLUENZA VIRU S VAC CPT-4: G0008 04/27/2013 FLULAVAL VACC, 3 YRS & >, IM CPT-4: Q2036 04/27/2013 PRESCRIP TRANSMIT A ERX SY CPT-4: G8553 04/09/2013 PRESCRIP TRANSMIT A ERX SY CPT-4: G8553 01/26/2013 ROUTINE VENIPUNCTURE CPT-4: 77175 12/23/2012 PRESCRIP TRANSMIT A ERX SY CPT-4: G8553 06/09/2012 ROCEPHIN, PER 250 MG CPT-4: J0696 02/12/2012 TRIAMCINOLONE ACET I [place] NOS CPT-4: J3301 02/12/2012 PRESCRIP TRANSMIT A ERX SY CPT-4: G8553 02/12/2012 ROCEPHIN, PER 250 MG CPT-4: J0696 02/05/2012 URINALYSIS NONAUTO W /O SCOPE CPT-4: 90804 11/14/2011 REMOVE IMPACTED EAR WAX UNI CPT-4: 64255 08/28/2011 PRESCRIP TRANSMIT A ERX SY CPT-4: G8553 08/28/2011 ROCEPHIN, PER 250 MG CPT-4: J0696 08/23/2011 TRIAMCINOLONE ACET I [place] NOS CPT-4: J3301 08/23/2011 THER/PROPH/DIAG INJ SC/IM CPT-4: 28325 08/23/2011 PRESCRIP TRANSMIT A ERX SY CPT-4: G8553 08/23/2011 OCCULT BLOOD FECES CPT- 4: 99998 06/19/2011 URINALYSIS NONAUTO W /O SCOPE CPT-4: 77663 06/19/2011 PRESCRIP TRANSMIT A ERX SY CPT-4: G8553 06/19/2011 ADMIN INFLUENZA VIRU S VAC CPT-4: G0008 06/05/2011 FLULAVAL VACC, 3 YRS & >, IM CPT-4: Q2036 06/05/2011 Vital Signs Date Vital 02/16/2019 Blood Pressure 1: 126/60 Code: 8480-6 BMI: 28.4 Code: 49845-2 Heart Rate 1: 86 bpm Height: 5'3" SpO2: 98% Weight: 163 lbs 02/10/2019 Blood Pressure 1: 152/88 Code: 8480-6 Heart Rate 1: 82 bpm Height: SpO2: 96% Weight: 12/23/2018 Blood Pressure 1: 150/82 Code: 8480-6 Heart Rate 1: 89 bpm Height: SpO2: 95% Weight: 06/12/2018 Blood Pressure 1: 142/68 Code: 8480-6 BMI: 30.0 Code: 49256-6 Heart Rate 1: 91 bpm Height: 5'3" SpO2: 96% Weight: 172 lbs 05/26/2018 Blood Pressure 1: 142/72 Code: 8480-6 BMI: 30.0 Code: 50117-0 Heart Rate 1: 92 bpm Height: 5'3" SpO2: 96% Weight: 172 lbs 04/01/2018 Blood Pressure 1: 120/58 Code: 8480-6 BMI: 29.1 Code: 22524-4 Heart Rate 1: 83 bpm Height: 5'3" Respiratory Rate: 18 bpm SpO2: 95% Weight: 167 lbs 11/25/2017 Blood Pressure 1: 128/58 Code: 8480-6 BMI: 29.8 Code: 18411-5 Heart Rate 1: 83 bpm Height: 5'3" SpO2: 99% Weight: 171 lbs 09/18/2017 Blood Pressure 1: 140/72 Code: 8480-6 BMI: 30.3 Code: 72539-2 Heart Rate 1: 99 bpm Height: 5'3" SpO2: 97% Weight: 174 lbs 05/02/2017 Blood Pressure 1: 122/64 Code: 8480-6 BMI: 29.5 Code: 25108-0 Heart Rate 1: 81 bpm Height: 5'3" SpO2: 97% Weight: 169 lbs 03/29/2017 Blood Pressure 1: 134/68 Code: 8480-6 BMI: 30.0 Code: 66076-8 Heart Rate 1: 89 bpm Height: 5'3" SpO2: 98% Weight: 172 lbs 11/15/2016 Blood Pressure 1: 148/72 Code: 8480-6 BMI: 29.5 Code: 04533-4 Heart Rate 1: 102 bpm Height: 5'3" SpO2: 98% Weight: 169 lbs 11/06/2016 Blood Pressure 1: 140/78 Code: 8480-6 BMI: 29.8 Code: 36258-4 Heart Rate 1: 100 bpm Height: 5'3" SpO2: 97% Weight: 171 lbs 08/01/2016 Blood Pressure 1: 128/56 Code: 8480-6 BMI: 30.3 Code: 39774-1 Heart Rate 1: 88 bpm Height: 5'3" SpO2: 97% Weight: 174 lbs 07/02/2016 Blood Pressure 1: 126/62 Code: 8480-6 BMI: 31.0 Code: 82751-2 Heart Rate 1: 101 bpm Height: 5'3" SpO2: 97% Weight: 178 lbs 06/04/2016 Blood Pressure 1: 136/72 Code: 8480-6 BMI: 31.4 Code: 90651-4 Heart Rate 1: 103 bpm Height: 5'3" SpO2: 98% Weight: 180 lbs 03/26/2016 Blood Pressure 1: 134/74 Code: 8480-6 BMI: 30.7 Code: 42313-3 Heart Rate 1: 93 bpm Height: 5'3" SpO2: 98% Weight: 176 lbs 11/23/2015 Blood Pressure 1: 128/77 Code: 8480-6 BMI: 30.2 Code: 50634-5 Heart Rate 1: 74 bpm Height: 5'3" SpO2: 96% Weight: 173 lbs 10/14/2015 Blood Pressure 1: 122/72 Code: 8480-6 BMI: 30.3 Code: 21314-5 Heart Rate 1: 76 bpm Height: 5'3" SpO2: 97% Weight: 174 lbs 03/31/2015 Blood Pressure 1: 140/68 Code: 8480-6 BMI: 30.0 Code: 08719-5 Heart Rate 1: 93 bpm Height: 5'3" SpO2: 94% Weight: 172 lbs 08/31/2014 Blood Pressure 1: 122/74 Code: 8480-6 BMI: 31.2 Code: 21709-8 Heart Rate 1: 76 bpm Height: 5'3" Weight: 179 lbs 08/10/2014 Blood Pressure 1: 138/62 Code: 8480-6 BMI: 31.0 Code: 64752-5 Heart Rate 1: 80 bpm Height: 5'3" Weight: 178 lbs 05/06/2014 BMI: 31.2 Code: 65475-0 Height: 5'3" Weight: 179 lbs 04/14/2014 Blood Pressure 1: 136/68 Code: 8480-6 BMI: 31.4 Code: 23560-3 Heart Rate 1: 74 bpm Height: 5'3" Weight: 180 lbs 11/10/2013 Blood Pressure 1: 102/50 Code: 8480-6 BMI: 30.7 Code: 15203-3 Heart Rate 1: 76 bpm Height: 5'3" Weight: 176 lbs 07/14/2013 Blood Pressure 1: 136/80 Code: 8480-6 BMI: 30.3 Code: 01798-7 Heart Rate 1: 70 bpm Height: 5'3" Weight: 174 lbs 06/12/2013 Blood Pressure 1: 142/82 Code: 8480-6 BMI: 30.9 Code: 87841-8 Heart Rate 1: 72 bpm Height: 5'3" Weight: 177 lbs 05/20/2013 Blood Pressure 1: 132/70 Code: 8480-6 BMI: 31.2 Code: 31853-3 Heart Rate 1: 88 bpm Height: 5'3" Weight: 179 lbs 04/09/2013 Blood Pressure 1: 136/70 Code: 8480-6 BMI: 31.0 Code: 37659-0 Heart Rate 1: 100 bpm Height: 5'3" Weight: 178 lbs 01/26/2013 Blood Pressure 1: 118/56 Code: 8480-6 BMI: 30.7 Code: 74958-5 Heart Rate 1: 87 bpm Height: 5'3" Weight: 176 lbs 12/23/2012 Blood Pressure 1: 136/76 Code: 8480-6 Heart Rate 1: 104 bpm Respiratory Rate: 20 bpm Weight: 178 lbs 12/15/2012 Blood Pressure 1: 150/82 Code: 8480-6 Heart Rate 1: 100 bpm Temperature: 36.7 (C) / 98.1 (F) Weight: 178 lbs 10/22/2012 Blood Pressure 1: 138/82 Code: 8480-6 BMI: 30.2 Code: 75379-3 Heart Rate 1: 100 bpm Height: 5'3" Weight: 173 lbs 08/21/2012 Blood Pressure 1: 136/70 Code: 8480-6 BMI: 30.6 Code: 17581-6 Heart Rate 1: 98 bpm Height: 5'3" Weight: 175 lbs 8 oz 07/17/2012 Blood Pressure 1: 152/68 Code: 8480-6 BMI: 29.9 Code: 18088-6 Heart Rate 1: 92 bpm Height: 5'3" [...] 1: 122/68 Code: 8480-6 BMI: 29.5 Code: 37843-0 Heart Rate 1: 96 bpm Height: 5'3" [...] 1: 130/72 Code: 8480-6 BMI: 30.4 Code: 15836-5 Heart Rate 1: 92 bpm Height: 5'3" Respiratory Rate: 16 bpm Weight: 174 lbs 8 oz 06/19/2011 Blood Pressure 1: 122/70 Code: 8480-6 BMI: 30.2 Code: 72722-9 Heart Rate 1: 104 bpm Height: 5'3" Weight: 173 lbs 06/05/2011 Blood Pressure 1: 100/50 Code: 8480-6 BMI: 29.6 Code: 93161-2 Heart Rate 1: 96 bpm Height: 5'3" [...] Denies nausea 04/01/2018 None hypertension Quality nadia abdi hypertension 04/01/2018 None hypertension Onset and Resolution [...] recently started s eeking counseling from her janitorial assistant. depression Pertinent Findings anxiety 08/21/2012 None depression [...] recently started s eeking counseling from her janitorial assistant. depression Pertinent Findings anxiety 07/17/2012 None depression [...] Encounters Encounter Performer Loca tion Codes Date ([id number]) 14836 EST. P ATIENT, LEVEL III Diagnosis: Other allergic rhinitis[ICD10: J30.89] Diagnosis: Major depressive disorder, recurrent, mild[ICD10: F33.0] Amy Cheung MD, [facility] CPT-4: 69680 02/16/2019 99991 EST. PATIENT, LEVEL III Diagnosis: Other allergic rhinitis[ICD10: J30.89] Diagnosis: Benign paroxysmal vertigo, bilateral[ICD10: H81.13] Diagnosis: Dizziness and giddiness[ICD10: R42] Diagnosis: Muscle spasm of back[ICD10: M62.830] Mariana Cheung MD, [facility] CPT- 4: 91885 02/10/2019 ([id number]) 42223 EST. P ATIENT, LEVEL III Diagnosis: Pleurodynia[ICD10: R07.81] Diagnosis: Pain in thoracic spine[ICD10: M54.6] Amy Cheung MD, [facility] CPT-4: 36813 12/23/2018 ([id number]) 34567 EST. P ATIENT, LEVEL III Diagnosis: Gastro-esophageal reflux disease without esophagitis[ICD10: K21.9] Amy Cheung MD, [facility] CPT-4: 64790 06/12/2018 ([id number]) 92453 EST. P ATIENT, LEVEL III Diagnosis: Gastro-esophageal reflux disease without esophagitis[ICD10: K21.9] Diagnosis: Cough[ICD10: R05] Riya Cheung MD, [facility] CPT-4: 40508 05/26/2018 ([id number]) 31328 EST. 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 P ATIENT, LEVEL IV Diagnosis: Type 2 diabetes mellitus with hyperglycemia[ICD10: E11.65] Diagnosis: Essential (primary) hypertension[ICD10: I10] Amy Cheung MD, [facility] CPT-4: 60914 11/25/2017 ([id number]) 29421 EST. P ATIENT, LEVEL IV Diagnosis: Type 2 diabetes mell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[ICD10: E11.9] Diagnosis: Mixed hyperlipidemia[ICD10: E78.2] Diagnosis: Candidal stomatitis[ICD10: B37.0] Amy Cheung MD [facility] CPT-4: 45798 09/18/2017 ([id number]) 84722 EST. P ATIENT, LEVEL IV Diagnosis: Type 2 diabetes mell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[ICD10: E11.9] Diagnosis: Mixed hyperlipidemia[ICD10: E78.2] Diagnosis: Essential (primary) hypertension[ICD10: I10] Diagnosis: Encounter for immunization[ICD10: Z23] Amy Cheung MD [facility] CPT-4: 26483 05/02/2017 ([id number]) 40053 EST. P ATIENT, LEVEL III Diagnosis: Candidal stomatitis[ICD10: B37.0] Riya Cheung MD [facility] CPT- 4: 02672 03/29/2017 ([id number]) 69289 EST. P ATIENT, LEVEL IV Diagnosis: Essential (primary) hypertension[ICD10: I10] Diagnosis: Type 2 diabetes mell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[ICD10: E11.9] Amy Cheung MD [facility] CPT-4: 63828 11/15/2016 [id number] EST. PATIENT, LEVEL III Diagnosis: Other malaise[ICD10: R53.81] Diagnosis: Other fatigue[ICD10: R53.83] Diagnosis: Type 2 diabetes mellitus with hyperglycemia[ICD10: E11.65] Diagnosis: Essential (primary) hypertension[ICD10: I10] Diagnosis: Weakness[ICD10: R53.1] Mariana Cheung MD, [facility] CPT-4: 61811 11/06/2016 ([id number]) 75341 EST. P ATIENT, LEVEL III Diagnosis: Type 2 diabetes mellitus with hyperglycemia[ICD10: E11.65] Amy Cheung MD, C CPT-4: 27597 08/01/2016 ([id number]) 97411 EST. P ATIENT, LEVEL III Diagnosis: Type 2 diabetes mellitus with hyperglycemia[ICD10: E11.65] Diagnosis: Gastroparesis[ICD10: K31.84] Amy Cheung MD, [facility] CPT-4: 36627 07/02/2016 ([id number]) 18356 EST. P ATIENT, LEVEL IV Diagnosis: Type 2 diabetes mellitus with hyperglycemia[ICD10: E11.65] Diagnosis: Hypothyroidism, unspecified[ICD10: E03.9] Amy Cheung MD, [facility] CPT-4: 58281 06/04/2016 ([id number]) 59351 EST. P ATIENT, LEVEL IV Diagnosis: Type 2 diabetes mellitus with hyperglycemia[ICD10: E11.65] Diagnosis: Mixed hyperlipidemia[ICD10: E78.2] Diagnosis: Essential (primary) hypertension[ICD10: I10] Amy Cheung MD, [facility] CPT-4: 30029 03/26/2016 ([id number]) 51888 EST. P ATIENT, LEVEL III Diagnosis: Essential (primary) hypertension[ICD10: I10] Diagnosis: Adjustment disorder with mixed anxiety and depressed mood[ICD10: F43.23] Amy Cheung MD, [facility] CPT-4: 48760 11/23/2015 ([id number]) 49723 EST. P ATIENT, LEVEL IV Diagnosis: Type 2 diabetes mellitus with hyperglycemia[ICD10: E11.65] Diagnosis: Panic disorder [episodic paroxysmal anxiety] without agoraphobia[ICD10: F41.0] Diagnosis: Adjustment disorder with mixed anxiety and depressed mood[ICD10: F43.23] Diagnosis: Essential (primary) hypertension[ICD10: I10] Amy Cheung MD, [facility] CPT-4: 69894 10/14/2015 ([id number]) 27028 EST. P ATIENT, LEVEL IV Diagnosis: DIABETES TYPE II[ICD9: 250.00] Diagnosis: GENERALIZED ANXIETY DISEASE[ICD9: 300.02] Diagnosis: ESSENTIAL HYPERTENSION[ICD9: 401.9] Diagnosis: ESOPHAGEAL REFLUX[ICD9: 530.81] Amy Cheung MD, [facility] CPT-4: 29200 03/31/2015 ([id number]) 23175 EST. P ATIENT, LEVEL IV Diagnosis: DM W/O COMPLICATION TYPE II, UNCONTROLLED[ICD9: 250.02] Diagnosis: ESSENTIAL HYPERTENSION[ICD9: 401.9] Diagnosis: DEPRESSIVE DISORDER NEC[ICD9: 311] Diagnosis: GENERALIZED ANXIETY DISEASE[ICD9: 300.02] Amy Cheung MD, [facility] CPT-4: 73333 08/31/2014 ([id number]) 59255 EST. P ATIENT, LEVEL IV Diagnosis: ESSENTIAL HYPERTENSION[ICD9: 401.9] Diagnosis: DIABETES TYPE II[ICD9: 250.00] Diagnosis: Constipation - functional[ICD9: 564.09] Diagnosis: Abdominal pain[ICD9: 789.00] Amy Cheung MD, [facility] CPT-4: 93841 08/10/2014 ([id number]) 41710 EST. P ATIENT, LEVEL III Diagnosis: Flu vaccine need[ICD9: V04.81] Diagnosis: Neck pain[ICD9: 723.1] Diagnosis: Chronic allergic rhinitis[ICD9: 477.9] Amy Cheung MD, [facility] CPT-4: 86082 05/06/2014 ([id number]) 14484 EST. P ATIENT, LEVEL IV Diagnosis: DM W/O COMPLICATION TYPE II, UNCONTROLLED[ICD9: 250.02] Diagnosis: GENERALIZED ANXIETY DISEASE[ICD9: 300.02] Diagnosis: ESSENTIAL HYPERTENSION[ICD9: 401.9] Diagnosis: Neck pain[ICD9: 723.1] Amy Cheung MD, [facility] CPT-4: 97726 04/14/2014 ([id number]) 21731 EST. P ATIENT, LEVEL IV Diagnosis: ESSENTIAL HYPERTENSION[SNOMED: 49309157] Diagnosis: DIABETES TYPE II[SNOMED: 102536710] Diagnosis: Iliotibial band syndrome[ICD9: 728.89] Diagnosis: DEPRESSIVE DISORDER NEC[ICD9: 311] Diagnosis: GENERALIZED ANXIETY DISEASE[ICD9: 300.02] Amy Cheung MD, [facility] CPT-4: 48579 11/10/2013 ([id number]) 70875 EST. P ATIENT, LEVEL III Diagnosis: DIABETES TYPE II[SNOMED: 411880353] Amy Cheung MD, [facility] CPT- 4: 56770 07/14/2013 ([id number]) 89382 EST. P ATIENT, LEVEL IV Diagnosis: ESSENTIAL HYPERTENSION[SNOMED: 94182466] Diagnosis: DM W/O COMPLICATION TYPE II, UNCONTROLLED[SNOMED: 81834167] Amy Cheung MD, [facility] CPT-4: 02584 06/12/2013 ([id number]) 80596 EST. P ATIENT, LEVEL III Diagnosis: DIABETES TYPE II[SNOMED: 575282439] Amy Cheung MD, [facility] CPT- 4: 02078 05/20/2013 ([id number]) 48228 EST. P ATIENT, LEVEL IV Diagnosis: ESSENTIAL HYPERTENSION[SNOMED: 95454385] Diagnosis: HYPERLIPIDEMIA[ICD9: 272.4] Diagnosis: Type II diabetes mellitus, uncontrolled[SNOMED: 76894178] Amy Cheung MD, [facility] CPT-4: 77782 04/09/2013 ([id number]) 08850 EST. P ATIENT, LEVEL III Diagnosis: ESSENTIAL HYPERTENSION[SNOMED: 21681409] Diagnosis: ENCNTR LONG-RX USE NEC[ICD9: V58.69] Diagnosis: IMPACTED CERUMEN[ICD9: 380.4] Amy Cheung MD, [facility] CPT-4: 11746 01/26/2013 ([id number]) 22865 EST. P ATIENT, LEVEL IV Diagnosis: DIABETES TYPE II[SNOMED: 713907595] Diagnosis: ESSENTIAL HYPERTENSION[SNOMED: 85525567] Diagnosis: Polymyalgia[ICD9: 725] Amy Cheung MD, [facility] CPT-4: 38359 12/23/2012 ([id number]) 08617 EST. P ATIENT, LEVEL III Diagnosis: ACUTE MAXILLARY SINUSITIS[ICD9: 461.0] Diagnosis: COUGH[ICD9: 786.2] Amy Cheung MD, [facility] CPT-4: 27495 12/15/2012 ([id number]) 90448 EST. P ATIENT, LEVEL III Diagnosis: ANAL OR RECTAL PAIN[ICD9: 569.42] Diagnosis: Bruising[ICD9: 924.9] Diagnosis: Hip pain[ICD9: 719.45] Amy Cheung MD, [facility] CPT-4: 14462 10/22/2012 ([id number]) 13240 EST. P ATIENT, LEVEL IV Diagnosis: ESSENTIAL HYPERTENSION[SNOMED: 86108282] Diagnosis: DIABETES TYPE II[SNOMED: 824887880] Amy Cheung MD, [facility] CPT- 4: 43629 08/21/2012 ([id number]) 77351 EST. P ATIENT, LEVEL IV Diagnosis: DIABETES TYPE II[SNOMED: 121321716] Diagnosis: DEPRESSIVE DISORDER NEC[ICD9: 311] Amy Cheung MD, [facility] CPT- 4: 33810 07/17/2012 ([id number]) 41711 EST. P ATIENT, LEVEL III Diagnosis: ESSENTIAL HYPERTENSION[SNOMED: 13141035] Diagnosis: DEPRESSIVE DISORDER NEC[ICD9: 311] Amy Cheung MD, [facility] CPT- 4: 87563 07/08/2012 14881 EST. PATIENT, LEVEL IV Diagnosis: ESSENTIAL HYPERTENSION[SNOMED: 02369357] Diagnosis: DIABETES TYPE II[SNOMED: 886808191] [facility] CPT- 4: 79262 06/09/2012 ([id number]) 41432 EST. P ATIENT, LEVEL III Diagnosis: Acute sinusitis[ICD9: 461.9] Diagnosis: FEVER NOS[ICD9: 780.60] [facility] CPT-4: 46820 02/12/2012 ([id number]) 92628 EST. P ATIENT, LEVEL III Diagnosis: Otalgia of both ears[ICD9: 388.70] Diagnosis: Hemorrhoids[ICD9: 455.6] Diagnosis: Rectal or anal pain[ICD9: 569.42] Amy Cheung MD [facility] CPT-4: 66547 02/05/2012 ([id number]) 36272 EST. P ATIENT, LEVEL IV Diagnosis: Dysuria[ICD9: 788.1] Diagnosis: ACUTE MAXILLARY SINUSITIS[ICD9: 461.0] Diagnosis: Allergic rhinitis[ICD9: 477.9] Amy Cheung MD, [facility] CPT-4: 42012 11/14/2011 ([id number]) 20373 EST. P ATIENT, LEVEL IV Diagnosis: DIABETES TYPE II[SNOMED: 776166749] Diagnosis: Cough[ICD9: 786.2] Diagnosis: FEVER NOS[ICD9: 780.60] Amy Cheung MD [facility] CPT-4: 52904 10/08/2011 26456 EST. PATIENT, LEVEL IV Diagnosis: OTHER CONSTIPATION[ICD9: 564.09] Diagnosis: IMPACTED CERUMEN[ICD9: 380.4] Diagnosis: Recurrent sinusitis[ICD9: 473.9] Amy Cheung MD [facility] CPT-4: 31007 08/28/2011 37084 EST. PATIENT, LEVEL IV Diagnosis: Neck pain, acute[ICD9: 723.1] Diagnosis: Cough[ICD9: 786.2] Diagnosis: Cerumen impaction[ICD9: 380.4] Amy Cheung MD [facility] CPT-4: 32262 08/23/2011 48820 EST. PATIENT, LEVEL IV Diagnosis: ESSENTIAL HYPERTENSION[SNOMED: 74985613] Diagnosis: HYPERLIPIDEMIA[ICD9: 272.4] Diagnosis: DIABETES TYPE II[SNOMED: 898280255] Diagnosis: DEPRESSIVE DISORDER NEC[ICD9: 311] Diagnosis: 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[ICD9: 357.7] Amy Cheung MD, [facility] CPT-4: 54253 07/24/2011 22338 EST. PATIENT, LEVEL IV Diagnosis: Abdominal pain[ICD9: 789.00] Diagnosis: Hematochezia[ICD9: 578.1] Diagnosis: Back pain[ICD9: 724.5] [facility] CPT-4: 78592 06/19/2011 65376 EST. 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] Diagnosis: VACCIN FOR INFLUENZA[ICD9: V04.81] Diagnosis: DEPRESSIVE DISORDER NEC[ICD9: 311] Diagnosis: DIABETES TYPE II[SNOMED: 668305443] [facility] CPT- 4: 16399 06/05/2011 Plan of Care Planned Activity Notes C odes Status Date Visit Plan: Allergies - chronic - r [...] send RX 02/10/2019 Appointment: Mariana Issa WPtel: [facility] (15 min) Moderate 02/10/2019 Patient Education: Patient Medication Summary Completed 02/10/2019 Visit Plan: Rib pain and thoracic s pine pain - status post fall at home - discussed with pt - need to check xrays - okay to keep using her back brace. Rx for muscle relaxer sent to patient's pharmacy. Kenalog shot given in clinic today. 12/23/2018 Appointment: Amy Cheung WPtel: [facility]1 [facility] ([facility] Moderate 12/23/2018 Patient Education: Patient Medication Summary Completed 12/23/2018 Care Plan: X-RAY EXAM THORAC SPINE 2VWS LOINC : [id number] Pending 12/23/2018 Visit Plan: Esophageal Reflux - the patient has been counseled against excessive intake of caffeine, spicy foods, peppermint, and cinnamon - all of which can exacerbate esophageal reflux. The patient is to take medications as prescribed and call the office if the symptoms are not improving. Advised pt to use lactaid pills 06/12/2018 Appointment: Amy Cheung WPtel: [facility]4 [facility] ([facility] min) Moderate 06/12/2018 Appointment: Riya Sheikh WPtel: [facility]0 [phone] [facility] - Annual Wellness Visit 06/12/2018 Patient Education: Patient Medication Summary Completed 06/12/2018 Visit Plan: Esophageal Reflux - the patient has been counseled against excessive intake of caffeine, spicy foods, peppermint, and cinnamon - all of which can exacerbate esophageal reflux. The patient is to take medications as prescribed and call the office if the symptoms are not improving. Wudfs-jvxxmehuw-qduhcnj injection today in the office -start claritin [...] controlled. 04/01/2018 Appointment: Amy Cheung WPtel: [phone] [facility] (15 min) Moderate 04/01/2018 Patient Education: Patient Medication Summary Completed 04/01/2018 Patient Education: Patient Medication Summary Completed 03/31/2018 Appointment: [facility]el[phone] [place] (15 min) Moderate 01/15/2018 Visit Plan: Diabetes [...] home. 11/25/2017 Appointment: Amy Cheung WPtel: [phone] [place] (15 min) Moderate 11/25/2017 Patient Education: Patient [...] for nystatin 09/18/2017 Appointment: Amy Cheung WPtel: [phone] (15 min) Moderate 09/18/2017 Patient Education: Patient Medication Summary Completed 09/18/2017 Visit Plan: Diabetes Mellitus - con trolled [...] shot today 05/02/2017 Appointment: Amy Cheung WPtel: [phone] [place] (15 min) Moderate 05/02/2017 Patient Education: Patient Medication Summary Completed 05/02/2017 Appointment: Amy Cheung WPtel: [phone] [facility] (15 min) Moderate 04/15/2017 Visit Plan: Thrush-discussed natura l and expected course of this diagnosis and to alert me if symptoms do not follow expected course, or if any worse. RX sent to patient's pharmacy. Patient verbalized understanding of plan. 03/29/2017 Appointment: Riya Sheikh WPtel: [phone] [phone] [place] (30 min) Complex 03/29/2017 Patient Education: Patient Medication Summary Completed 03/29/2017 Patient Education: Obesity Completed 03/29/2017 Appointment: Amy Cheung WPtel: [facility]4 [facility] (15 min) Moderate 03/14/2017 Visit Plan: Diabetes Mellitus - con trolled [...] at home. 11/15/2016 Appointment: Amy Cheung WPtel: [phone] [facility] [place] (15 min) Moderate 11/15/2016 Patient Education: Patient Medication Summary Completed 11/15/2016 Appointment: Amy Cheung WPtel: [phone] [facility] [place] (15 min) Moderate 11/07/2016 Visit Plan: Fatigue, [...] control. 11/06/2016 Appointment: [phone] (30 min) Complex 11/06/2016 Patient Education: Patient Medication Summary Completed 11/06/2016 Patient Education: Patient Medication Summary Completed 09/19/2016 Patient Education: Patient Medication Summary Completed 08/22/2016 Care Plan: Comp Metabolic Pending 08/22/2016 Care Plan: %Hba1C she can have drawn anytime after 09/04/16 LOINC : 50387-0 Pending 08/22/2016 Visit Plan: Diabetes Mellitus - [...] clinic. 08/01/2016 Appointment: Amy Cheung WPtel: [phone] [place] (15 min) Moderate 08/01/2016 Patient Education: Patient Medication Summary Completed 08/01/2016 Appointment: Amy Cheung WPtel: [phone] [place] (15 min) Moderate 07/09/2016 Visit Plan: Diabetes [...] motility 07/02/2016 Appointment: Amy Cheung WPtel: [phone] [place] (15 min) Moderate 07/02/2016 Patient Education: Patient [...] previous levels of control. 06/04/2016 Appointment: Amy Cheugn WPtel: [phone] [place] (15 min) Moderate 06/04/2016 Patient Education: Patient [...] to medications. 03/26/2016 Appointment: Amy Cheung WPtel: [address] [place] [address] (15 min) Moderate 03/26/2016 Patient Education: Patient [...] Hypertension Completed 10/14/2015 Appointment: Amy Cheung WPtel: [phone] [facility] (15 min) Moderate 10/13/2015 Appointment: Amy Cheung WPtel: [phone] [facility] (15 min) Moderate 05/09/2015 Visit Plan: Diabetes [...] esophageal cancer. 03/31/2015 Appointment: Amy Cheung WPtel: [phone] [place] (15 min) Moderate 03/31/2015 Patient Education: Patient Medication Summary Completed 03/31/2015 Patient Education: Hypertension Completed 03/31/2015 Appointment: (15 min) Moderate 02/11/2015 Appointment: Amy Cheung WPtel: [phone] [place] Sick 09/29/2014 Visit Plan: Diabetes Mellitus - [...] 9 months. 08/31/2014 Appointment: Amy Cheung WPtel: [phone] Follow up 08/31/2014 Patient Education: Patient Medication [...] Hypertension Completed 08/10/2014 Appointment: Amy Cheung WPtel: [phone] Follow up 05/10/2014 Visit Plan: Allergies - [...] be ordered. 05/06/2014 Appointment: Amy Cheung WPtel: [facility]3 [facility] Follow up 05/06/2014 Patient Education: Patient Medication Summary Completed 05/06/2014 Patient Education: .Cervicalgia Neck Pain Completed 05/06/2014 Appointment: Amy Cheung WPtel: [facility]9 [facility] Follow up 05/05/2014 Visit Plan: Hypertension - [...] the neck. 04/14/2014 Appointment: Amy Cheung WPtel: [phone] [facility] [place] Follow up 04/14/2014 Patient Education: Patient Medication [...] band exercises. 11/10/2013 Appointment: Amy Cheung WPtel: [address] [place] [address] Other 11/10/2013 Patient Education: Patient Medication Summary [...] monitor symptoms. 07/14/2013 Appointment: Amy Cheung WPtel: [address] [place], [place] [id number] [place] Other 07/14/2013 Patient Education: Patient Medication Summary Completed 07/14/2013 Appointment: Riya Sheikh WPtel: [address] [place], [place] [phone] Follow up 07/13/2013 Visit Plan: Hypertension - [...] glucose control. 06/12/2013 Appointment: Riya Sheikh WPtel: [id number] Other 06/12/2013 Patient Education: Patient Medication Summary [...] to patient. 05/20/2013 Appointment: Amy Cheung WPtel: [facility]5 [facility] [place] Follow up 05/20/2013 Patient Education: Patient Medication Summary Completed 05/20/2013 Appointment: Amy Cheung WPtel: [facility]5 [facility] [place] Follow up 05/07/2013 Appointment: Amy Cheung WPtel: [address] [place], [place] [phone] [place] Lab Draw 04/27/2013 Patient Education: Patient Medication [...] a copy of this note to her Commercial Hvac Technician - Dr. Kraus as he will ultimately [...] Glyburide restarted. 04/09/2013 Appointment: Amy Cheung WPtel: [phone] Follow up 04/09/2013 Patient Education: Patient Medication Summary Completed 04/09/2013 Patient Education: Hypertension Completed 04/09/2013 Appointment: Amy Cheung WPtel: [phone] Follow up 03/30/2013 Visit Plan: Hypertension - [...] water today 01/26/2013 Appointment: Amy Cheung WPtel: [facility]5 [facility] Other 01/26/2013 Patient Education: Patient Medication Summary Completed 01/26/2013 Patient Education: Hypertension Completed 01/26/2013 Visit Plan: Diabetes Mellitus - con meredith [...] at home. 12/23/2012 Appointment: Amy Cheung WPtel: [facility]5 [facility] Follow up 12/23/2012 Patient Education: Patient Medication Summary Completed 12/23/2012 Patient Education: Hypertension Completed 12/23/2012 Visit Plan: Sinusitis - Pt has acut e infection - pain in face, maxillary region, Pt informed to use decongestant, RX given to patient, sinus rinses also recommended. Call if symptoms do not show improvement. 12/15/2012 Appointment: Amy Cheung WPtel: [phone] [facility] Sick 12/15/2012 Patient Education: Patient Medication Summary Completed 12/15/2012 Visit Plan: Bruising and pain post fall- with hip pain - recommended pt to have xray of hips and pelvis and lumbar spine as she is having the pain in her hips post fall. 10/22/2012 Appointment: Amy Cheung WPtel: [phone] [facility] Other 10/22/2012 Patient Education: Patient Medication Summary Completed 10/22/2012 Appointment: Amy Cheung WPtel: [phone] [facility] Follow up 09/30/2012 Visit Plan: Hypertension - [...] starting to become less controlled. 08/21/2012 Appointment: Amy Cheung WPtel: [phone] [facility] Follow up 08/21/2012 Patient Education: Patient Medication Summary Completed 08/21/2012 Patient Education: Hypertension Completed 08/21/2012 Visit Plan: Diabetes Mellitus - con trolled [...] that she can have an environment in chich they can grow and change together. No change to Pat's medications today. Time based documentation -I spent over 40 minutes with the patient in discussion of the disease process, expected course, and overall prognosis for the patient's disease state. The patient/family expressed understanding. 07/17/2012 Appointment: Amy Cheung WPtel: [address] [place], [place] [phone] Follow up 07/17/2012 Patient Education: Patient Medication Summary Completed 07/17/2012 Visit Plan: Hypertension - well con trolled [...] issues today. 07/08/2012 Appointment: Amy Cheung WPtel: [address] [place] [address] Other 07/08/2012 Patient Education: Patient Medication Summary Completed 07/08/2012 Patient Education: Hypertension Completed 07/08/2012 Visit Plan: Diabetes Mellitus - con galileolled [...] labs checked. 06/09/2012 Appointment: Amy Cheung WPtel: [facility]8 [facility] [place] Other 06/09/2012 Patient Education: Patient Medication Summary Completed 06/09/2012 Patient Education: High Blood Pressure: Essential Hypertension Completed 06/09/2012 Visit Plan: Sinusitis - Pt has acut e infection - pain in face, maxillary region, Pt informed to use decongestant, RX given to patient, sinus rinses also recommended. Call if symptoms do not show improvement. 02/12/2012 Appointment: Amy Cheung WPtel: [facility]4 [place] [phone] Other 02/12/2012 Patient Education: Patient Medication Summary [...] in place. 02/05/2012 Appointment: Amy Cheung WPtel: [address] [place] [address] Other 02/05/2012 Patient Education: Patient Medication Summary [...] any worse. Check your thyroid labs at [facility]-we will call you with the results. Allergies - chronic - recommended pt to use allergy medication as prescribed. Pt has been counseled as the the appropriate use of the medication. Pt to call if allergy symptoms are not controlled with the medication. Dysuria - UA negative 11/14/2011 Appointment: Amy Cheung WPtel: [address] [place], [place] [phone] [place] Other 11/14/2011 Appointment: Amy Cheung WPtel: [address] [place] [address] Other 11/14/2011 Patient Education: Patient Medication Summary Completed 11/14/2011 Visit Plan: Diabetes Mellitus - con trolled [...] patient today. 10/08/2011 Appointment: Amy Cheung WPtel: [phone] [facility] Other 10/08/2011 Patient Education: Patient Medication Summary [...] removal process. 08/28/2011 Appointment: Amy Cheung WPtel: [phone] Other 08/28/2011 Patient Education: Patient Medication Summary [...] in readings. 07/24/2011 Appointment: Amy Cheung WPtel: [address] [place] [id number] Other 07/24/2011 Patient Education: Patient Medication Summary [...] lower back. 06/19/2011 Appointment: Amy Cheung WPtel: [phone] Other 06/19/2011 Patient Education: Patient Medication Summary Completed 06/19/2011 Visit Plan: Diabetes Mellitus - con myriamed - per recent FSBS reports. I have [...] if needed for neuropathic symptoms. 06/05/2011 Appointment: Amy Cheung WPtel: [phone] [facility] Other 06/05/2011 Patient Education: Patient Medication Summary Completed 06/05/2011 Instructions Comment . Hypertension - wel l controlled - [...] cerumen removal with warm water today . Diabetes Mellitus - improved control - [...] at home, bring in copy to clinic. . Hyperlipidemia - pt has been counseled [...] a copy of this note to her Commercial Hvac Technician - Dr. Kraus as he will ultimately [...] greater blood glucose control. Glyburide restarted. . Rib pain and thora cic spine pain - status post fall at home - discussed with pt - need to check xrays - okay to keep using her back brace. Rx for muscle relaxer sent to patient's pharmacy. Kenalog shot given in clinic today. . Diabetes Mellitus - controlled - [...] in blood pressure readings at home. . Sinusitis - Pt has acute infection [...] given handout on Ilitibial band exercises. . Hypertension - wel l controlled - [...] are starting to become less controlled. . Allergies - chronic - recommended pt [...] continue with reglan for GI motility . Thrush-discussed n atural and expected course [...] control on the bydureon - monitor symptoms. take 1/2 bottle of m agnesium citrate [...] if symptoms not improved on this regimen. steroid shot today meclizine - dizzy pill [...] interventions. Muscle spasms - will send RX . Diabetes Mellitus - controlled - per [...] - pt needs to have labs checked. . Diabetes Mellitus - controlled - per [...] that she can have an environment in chich they can grow and change together. No change to Pat's medications today. Time based documentation -I spent over 40 minutes with the patient in discussion of the disease process, expected course, and overall prognosis for the patient's disease state. The patient/family expressed understanding. . Diabetes Mellitus - Uncontrolled - per [...] tid if needed for neuropathic symptoms. . Sinusitis - Pt has acute infection [...] with codeine given to patient today. . Bruising and pain post fall- with hip pain - recommended pt to have xray of hips and pelvis and lumbar spine as she is having the pain in her hips post fall. increase the metform in to 1.5 tablets [...] change in blood pressure readings at home. you are due for a re gular [...] improving. Advised pt to use lactaid pills I sent prescriptions to [facility] for the following medications: LOSARTAN 25MG [...] allow for greater blood glucose control. . Hypertension - wel l controlled - [...] are starting to become less controlled. . Fatigue, malaise, diaphoresis, weakness - will [...] allow for greater blood glucose control. . Diabetes Mellitus - controlled - per [...] recommended exercises and heat to lower back. . Diabetes Mellitus - controlled - per [...] change in blood pressure readings at home. decrease claritin to 1/2 a tablet twice daily. . Diabetes Mellitus - controlled - per r lola FSBS reports. I have recommended for the [...] week. Cough - use prn cough medication. . Hypertension - wel l controlled - [...] but she reports that she feels stable. Nexium 40mg daily continue zantac kenalog injection today claritin 10mg daily call if reflux is not better . Esophageal Reflux - the patient has be en counseled against excessive intake of caffeine, spicy foods, peppermint, and cinnamon - all of which can exacerbate esophageal reflux. The patient is to take medications as prescribed and call the office if the symptoms are not improving. Owonb-zesqdbdvg-twmdgzy injection today in the office -start claritin 10mg daily . Constipation - unc ontrolled - I [...] with current treatment. . Diabetes Mellitus - controlled - per [...] to situation with her having esophageal cancer. DX sinusitis - discu ssed expected course with the patient, pt advised to call for worsening symptoms, or lack of improvement on prescribed treatment course. Singulair samples-10mg po daily. Call if you allergy symptosm do not improve, or if any worse. Check your thyroid labs at [facility]-we will call you with the results. [...] any worse. Check your thyroid labs at [facility]-we will call you with the results. [...] García for evaluation of the neck. . Diabetes Mellitus - controlled - per [...] Neck pain - MRI to be ordered. . Diabetes Mellitus - controlled - per [...] hemorrhoid to keep the medication in place. increase trulicity d ose to 1.5mg weekly [...] to assure normal liver response to medications. . Hypertension - wel l controlled - [...]
--- OUTSIDE RECORDS SUMMARY | 2019-08-12 22:43 | XMS REPORT | CCD ---
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 Name Role Phone PP Unavailable CCM Unavailable Summary Purpose Interface Exchange Insurance Providers Payer name Policy type / Coverage type Covered alliance party ID Effective Begin Date Effective End Date WPS Medicare Part B Medicare Part B [id number] Unknown GEHA Medicare Part B [id number] Unknown Family history Father Diagnosis Age At [...] Fill Instructions cyclobenzaprine 5 mg tablet RxNorm: 722467 1 Tablet(s) PO TID x 3 days then as needed for muscle spasms 02/10/2019 02/19/2019 Active meclizine 25 mg tablet RxNorm: 311544 1 Tablet(s) PO TID as needed Dizziness 02/10/2019 02/19/2019 Ac tive fluticasone propiona te 50 mcg/actuation nasal spray,suspension RxNorm: 6070988 [place] USE ONE SPRAY IN EACH NOSTRIL TWICE A DAY 02/10/2019 06/09/2019 Active prednisone 20 mg tablet RxNorm: 934121 2 Tablet(s) PO daily 02/10/2019 02/14/2019 Inactive levothyroxine 25 mcg tablet RxNorm: 981063 Tablet(s) TAKE 1 TABL ET DAILY 01/16/2019 07/14/2019 Ac tive mesalamine 800 mg ta blet,delayed release RxNorm: 234018 Tablet(s) TAKE 1 TABL ET TWICE A DAY 01/15/2019 01/09/2020 Active metformin 500 mg tablet RxNorm: 890393 TAKE 1 AND 1/2 TABLETS TWICE DAILY 01/15/2019 01/09/2020 Ac tive Nexium 40 mg capsule ,delayed release RxNorm: 642474 TAKE 1 CAPSULE TWICE DAILY 01/15/2019 01/09/2020 Ac tive Lialda 1.2 gram tabl et,delayed release RxNorm: 156666 2 Tablet(s) PO daily 12/23/2018 No Stop Date Active Kenalog 40 mg/mL [place] pension for injection RxNorm: 8704654 Milliliter(s) Inj 12/23/2018 12/23/2018 In active cyclobenzaprine 5 mg tablet RxNorm: 396272 1 Tablet(s) PO TID x 3 days then as needed for muscle spasms 12/23/2018 01/01/2019 Inactive furosemide 40 mg tablet RxNorm: 884158 TAKE 1 TABLET DAILY 12/01/2018 08/27/2019 Active Effexor XR 75 mg cap alma,extended release RxNorm: 914804 1 Capsule(s) PO daily 09/16/2018 09/10/2019 Ac tive levothyroxine 25 mcg tablet RxNorm: 778505 Tablet(s) TAKE 1 TABL ET DAILY 08/26/2018 01/15/2019 In active montelukast 10 mg ta blet RxNorm: 251952 TAKE 1 TABLET DAILY 07/21/2018 07/15/2019 Active Augmentin 500 mg-125 mg tablet RxNorm: 603640 1 Tablet(s) PO TID 05/27/2018 05/26/2018 Inactive Augmentin 500 mg-125 mg tablet RxNorm: 333228 1 Tablet(s) PO TID 05/27/2018 06/02/2018 Inactive Kenalog 40 mg/mL [place] pension for injection RxNorm: 2110835 1 Milliliter(s) Inj 05/26/2018 05/26/2018 In active pilocarpine 5 mg tablet RxNorm: 7309869 Tablet(s) TAKE 4 TABLETS DAILY 04/22/2018 07/15/2019 Ac tive Trulicity 1.5 mg/0.5 mL subcutaneous pen injector RxNorm: 4857412 INJECT 0.5ML SUBCUTANEOUSLY EVERY WEEK 02/24/2018 04/29/2019 Active levothyroxine 25 mcg tablet RxNorm: 987712 TAKE 1 TABLET DAILY 02/13/2018 08/11/2018 Inactive mesalamine 800 mg ta blet,delayed release RxNorm: 050506 TAKE 1 TABLET TWICE A DAY 12/10/2017 12/03/2018 In active metformin 500 mg tablet RxNorm: 175970 1.5 Tablet(s) PO BID 11/25/2017 11/19/2018 Inactive levothyroxine 25 mcg tablet RxNorm: 014703 TAKE 1 TABLET DAILY 11/19/2017 02/12/2018 Inactive Nexium 40 mg capsule ,delayed release RxNorm: 072134 TAKE 1 CAPSULE TWICE DAILY 11/15/2017 11/09/2018 In active Effexor XR 75 mg cap alma,extended release RxNorm: 869766 1 Capsule(s) PO daily 10/14/2017 09/15/2018 In active Bactroban 2 % topica l cream RxNorm: 721607 1 Application TOP TID 09/18/2017 09/27/2017 Inactive nystatin 100,000 uni t/mL oral suspension RxNorm: 983199 5 Milliliter(s) PO TI D 09/18/2017 09/27/2017 In active oxazepam 10 mg capsule RxNorm: 615490 1 Capsule(s) PO TID as needed anxiety 09/02/2017 02/28/2018 In active oxazepam 10 mg capsule RxNorm: 894996 1 Capsule(s) PO TID as needed anxiety 08/29/2017 09/01/2017 In active fluticasone 50 mcg/a ctuation nasal spray,suspension RxNorm: 5124497 [place] USE ONE SPRAY IN EACH NOSTRIL TWICE A DAY 08/29/2017 12/26/2017 Inactive furosemide 40 mg tablet RxNorm: 826112 TAKE 1 TABLET DAILY 08/26/2017 08/20/2018 Inactive pilocarpine 5 mg tablet RxNorm: 8354710 TAKE 4 TABLETS DAILY 08/26/2017 04/21/2018 Inactive metformin 500 mg tablet RxNorm: 478795 TAKE 1 TABLET TWICE A DAY 08/20/2017 11/24/2017 Inactive Claritin-D 12 Hour 5 mg-120 mg tablet,extended release RxNorm: 0574354 Tablet(s) TAKE ONE (1) TABLET BY MOUTH TWICE DAILY 07/29/2017 12/22/2018 Inactive fluticasone 50 mcg/a ctuation nasal spray,suspension RxNorm: 1065258 [place] USE ONE SPRAY IN EACH NOSTRIL TWICE A DAY 07/25/2017 07/24/2017 Inactive fluticasone 50 mcg/a ctuation nasal spray,suspension RxNorm: 4969486 [place] USE ONE SPRAY IN EACH NOSTRIL TWICE A DAY 07/25/2017 08/28/2017 Inactive fluticasone 50 mcg/a ctuation nasal spray,suspension RxNorm: 6651537 [place] USE ONE SPRAY IN EACH NOSTRIL TWICE A DAY 06/04/2017 07/24/2017 Inactive montelukast 10 mg ta blet RxNorm: 480000 TAKE 1 TABLET DAILY 06/03/2017 05/28/2018 Inactive levothyroxine 25 mcg tablet RxNorm: 321168 TAKE 1 TABLET DAILY 05/13/2017 11/08/2017 Inactive Voltaren 1 % topical gel RxNorm: 824772 2 Gram(s) TOP QID 05/02/2017 2017 Inactive nystatin 100,000 uni t/mL oral suspension RxNorm: 719803 5 Milliliter(s) PO QI D 03/29/2017 04/11/2017 In active Diflucan 150 mg tablet RxNorm: 401422 1 Tablet(s) PO daily 03/29/2017 05/01/2017 Inactive Trulicity 1.5 mg/0.5 mL subcutaneous pen injector RxNorm: 1179128 INJECT 0.5ML SUBCUTANEOUSLY EVERY WEEK 02/28/2017 01/29/2018 Inactive levothyroxine 25 mcg tablet RxNorm: 315433 1 Tablet(s) PO daily 11/19/2016 11/18/2016 Inactive levothyroxine 25 mcg tablet RxNorm: 003652 1 Tablet(s) PO daily 11/19/2016 05/12/2017 Inactive Claritin 10 mg tablet RxNorm: 012560 1 Tablet(s) PO daily 11/07/2016 11/06/2016 Inactive Claritin 10 mg tablet RxNorm: 173603 1 Tablet(s) PO daily 11/07/2016 12/06/2016 Inactive Zithromax Z-Ankit 250 mg tablet RxNorm: 481431 1 Tablet(s) PO UD 11/07/2016 05/01/2017 Inactive oxazepam 10 mg capsule RxNorm: 295508 1 Capsule(s) PO TID as needed anxiety 11/01/2016 12/30/2016 In active Nexium 40 mg capsule ,delayed release RxNorm: 968788 1 Capsule(s) PO BID 10/25/2016 10/19/2017 In active Claritin-D 12 Hour 5 mg-120 mg tablet,extended release RxNorm: 1080303 Tablet(s) TAKE ONE (1) TABLET BY MOUTH TWICE DAILY 10/25/2016 12/23/2016 Inactive mesalamine 800 mg ta blet,delayed release RxNorm: 671101 1 Tablet(s) PO BID 09/18/2016 09/17/2016 In active mesalamine 800 mg ta blet,delayed release RxNorm: 798583 1 Tablet(s) PO BID 09/18/2016 06/14/2017 In active Effexor XR 75 mg cap alma,extended release RxNorm: 653999 1 Capsule(s) PO daily 08/30/2016 08/24/2017 In active metformin 500 mg tablet RxNorm: 182231 1 Tablet(s) PO BID 08/17/2016 08/11/2017 Inactive oxazepam 10 mg capsule RxNorm: 544754 1 Capsule(s) PO TID as needed anxiety 08/17/2016 10/15/2016 In active Claritin-D 12 Hour 5 mg-120 mg tablet,extended release RxNorm: 2666390 TAKE ONE (1) TABLET BY MOUTH TWICE DAILY... 08/16/2016 10/24/2016 Inactive furosemide 40 mg tablet RxNorm: 390860 1 Tablet(s) daily TAKE 1 TABLET DAILY 08/14/2016 08/08/2017 In active Effexor XR 75 mg cap alma,extended release RxNorm: 860631 1 Capsule(s) PO daily 08/14/2016 08/29/2016 In active pilocarpine 5 mg tablet RxNorm: 4107986 4 Tablet(s) PO daily TAKE 4 TABLETS YARI Y 08/14/2016 08/08/2017 In active metoclopramide 5 mg tablet RxNorm: 869144 1/2 to 1 Tablet(s) PO TID for nause and GI dysmotility 07/02/2016 11/14/2016 Inactive Effexor XR 75 mg cap alma,extended release RxNorm: 668788 1 Capsule(s) PO daily 07/02/2016 08/13/2016 In active metformin 500 mg tablet RxNorm: 886478 1/2 TABLET(S) PO BID X2 WEEKS THEN INCRE ASE TO 1 TABLET PO BID THEREAFTER 06/26/2016 08/16/2016 Inactive 30 day supply Claritin-D 12 Hour 5 mg-120 mg tablet,extended release RxNorm: 4504575 1 Tablet(s) PO BID 06/18/2016 08/15/2016 Inactive montelukast 10 mg ta blet RxNorm: 089985 1 Tablet(s) PO daily 06/13/2016 06/02/2017 Inactive metformin 500 mg tablet RxNorm: 883388 1/2 Tablet(s) PO BID x2 weeks then incre ase to 1 Tablet PO BID thereafter 06/07/2016 06/06/2016 Inactive 30 day supply metformin 500 mg tablet RxNorm: 915795 1/2 Tablet(s) PO BID x2 weeks then incre ase to 1 Tablet PO BID thereafter 06/07/2016 06/25/2016 Inactive 30 day supply Diflucan 150 mg tablet RxNorm: 350961 1 Tablet(s) PO daily 03/27/2016 04/02/2016 Inactive nystatin 100,000 uni t/mL oral suspension RxNorm: 235993 5 Milliliter(s) PO QI D 03/27/2016 04/05/2016 In active nystatin 100,000 uni t/mL oral suspension RxNorm: 872692 5 Milliliter(s) PO QI D 03/27/2016 03/26/2016 In active Diflucan 150 mg tablet RxNorm: 949424 1 Tablet(s) PO daily 03/27/2016 03/26/2016 Inactive Effexor XR 75 mg cap alma,extended release RxNorm: 720447 1 Capsule(s) PO daily 03/26/2016 07/01/2016 In active this replaces the 150mg dose - we are we aning down her dose Trulicity 1.5 mg/0.5 mL subcutaneous pen injector RxNorm: 8317716 0.5 Milliliter(s) SQ QW 03/26/2016 02/27/2017 Inactive Trulicity 0.75 mg/0. 5 mL subcutaneous pen injector RxNorm: 5309400 1 injection SQ QW 03/13/2016 06/03/2016 Inactive Trulicity 0.75 mg/0. 5 mL subcutaneous pen injector RxNorm: 1122775 1/2 Milliliter(s) SQ QW 03/13/2016 03/12/2016 Inactive glyburide 2.5 mg tablet RxNorm: 844905 1/2 Tablet(s) PO BID 03/13/2016 03/25/2016 Inactive glyburide 2.5 mg tablet RxNorm: 950245 1/2 Tablet(s) PO BID 03/13/2016 03/12/2016 Inactive Claritin-D 12 Hour 5 mg-120 mg tablet,extended release RxNorm: 2826775 1 Tablet(s) PO BID 02/03/2016 10/24/2016 Inactive Synthroid 25 mcg tablet RxNorm: 765481 1 Tablet(s) PO daily 01/23/2016 11/18/2016 Inactive Synthroid 25 mcg tablet RxNorm: 843243 1 Tablet(s) PO daily 01/23/2016 01/22/2016 Inactive Claritin-D 12 Hour 5 mg-120 mg tablet,extended release RxNorm: 7148947 1 Tablet(s) PO BID 12/05/2015 05/31/2016 Inactive Effexor XR 150 mg ca psule,extended release RxNorm: 285862 TAKE 1 CAPSULE DAILY 12/05/2015 03/25/2016 In active Bydureon 2 mg/0.65 m L subcutaneous pen injector RxNorm: 4033143 2 Milligram(s) SQ QW 10/14/2015 03/12/2016 Inactive oxazepam 10 mg capsule RxNorm: 995533 1 Capsule(s) PO TID PRN as needed anxiet y 10/14/2015 04/10/2016 In active Nexium 40 mg capsule ,delayed release RxNorm: 841777 1 Capsule(s) BID TAKE 1 CAPSULE DAILY 10/14/2015 10/07/2016 Inactive this is a new RX - fill the twice daily dose instead of once daily dose Effexor XR 150 mg ca psule,extended release RxNorm: 831942 1 Capsule(s) PO daily TAKE 1 CAPSULE DAILY 10/03/2015 03/25/2016 Inactive pilocarpine 5 mg tablet RxNorm: 0068737 4 Tablet(s) PO daily TAKE 4 TABLETS YARI Y 08/09/2015 02/04/2016 In active pilocarpine 5 mg tablet RxNorm: 1222045 4 Tablet(s) PO daily TAKE 4 TABLETS YARI Y 07/26/2015 08/08/2015 In active Claritin-D 12 Hour 5 mg-120 mg tablet,extended release RxNorm: 4366520 1 Tablet(s) PO BID 05/02/2015 10/24/2016 Inactive furosemide 40 mg tablet RxNorm: 900388 1 Tablet(s) daily TAKE 1 TABLET DAILY 03/31/2015 03/24/2016 In active Nexium 40 mg capsule ,delayed release RxNorm: 553371 1 Capsule(s) BID TAKE 1 CAPSULE DAILY 03/31/2015 10/13/2015 Inactive this is a new RX - fill the twice daily dose instead of once daily dose Nexium 40 mg capsule ,delayed release RxNorm: 054694 1 Capsule(s) daily TA KE 1 CAPSULE DAILY 03/31/2015 03/30/2015 Inactive montelukast 10 mg ta blet RxNorm: 152008 1 Tablet(s) PO daily 03/31/2015 03/24/2016 Inactive Synthroid 25 mcg tablet RxNorm: 320325 1 Tablet(s) PO daily 01/17/2015 01/11/2016 Inactive Synthroid 25 mcg tablet RxNorm: 277848 1 Tablet(s) PO daily 01/03/2015 01/16/2015 Inactive Claritin-D 12 Hour 5 mg-120 mg tablet,extended release RxNorm: 7890097 1 Tablet(s) PO BID 12/29/2014 05/01/2015 Inactive Synthroid 25 mcg tablet RxNorm: 879567 1 Tablet(s) PO daily 12/20/2014 01/02/2015 Inactive Synthroid 25 mcg tablet RxNorm: 765487 1 Tablet(s) PO daily 12/07/2014 12/19/2014 Inactive Effexor XR 150 mg ca psule,extended release RxNorm: 722637 1 Capsule(s) PO daily TAKE 1 CAPSULE DAILY 11/30/2014 10/02/2015 Inactive Nexium 40 mg capsule ,delayed release RxNorm: 961027 Capsule(s) TAKE 1 CAP ALMA DAILY 11/30/2014 03/30/2015 In active fenofibric acid (cho line) 135 mg capsule,delayed release RxNorm: 782283 1 Capsule(s) PO daily 08/31/2014 08/25/2015 Inactive Bydureon 2 mg subcut aneous extended release suspension RxNorm: 1841243 1 injection SQ QW 07/21/2014 07/15/2015 Inactive fluticasone 50 mcg/a ctuation nasal spray,suspension RxNorm: 9449134 USE ONE SPRAY IN EACH NOSTRIL TWICE A DAY 07/06/2014 06/03/2017 Inactive Lipitor 10 mg tablet RxNorm: 052938 TAKE 1 TABLET AT BEDTIME 06/15/2014 10/13/2015 Inactive furosemide 40 mg tablet RxNorm: 993346 TAKE 1 TABLET DAILY 06/15/2014 03/30/2015 Inactive oxazepam 10 mg capsule RxNorm: 858960 1 Capsule(s) PO TID PRN as needed anxiet y 06/11/2014 12/07/2014 In active montelukast 10 mg ta blet RxNorm: 302174 1 Tablet(s) PO daily 05/25/2014 03/30/2015 Inactive oxazepam 10 mg capsule RxNorm: 561841 1 Capsule(s) PO TID PRN as needed anxiet y 05/06/2014 06/10/2014 In active montelukast 10 mg ta blet RxNorm: 554920 1 Tablet(s) PO daily 05/04/2014 05/24/2014 Inactive Nexium 40 mg capsule ,delayed release RxNorm: 491178 TAKE 1 CAPSULE DAILY 03/25/2014 11/29/2014 In active Nexium 40 mg capsule ,delayed release RxNorm: 167230 1 Capsule(s) PO daily TAKE 1 CAPSULE DAILY 03/02/2014 03/24/2014 Inactive oxazepam 10 mg capsule RxNorm: 417710 1 Capsule(s) PO TID PRN as needed 02/24/2014 04/24/2014 In active pilocarpine 5 mg tablet RxNorm: 3906242 TAKE 4 TABLETS DAILY 02/01/2014 07/25/2015 Inactive Claritin-D 12 Hour 5 mg-120 mg tablet,extended release RxNorm: 9847810 1 Tablet(s) PO BID 12/24/2013 10/24/2016 Inactive Effexor XR 150 mg ca psule,extended release RxNorm: 934536 1 Capsule(s) PO daily TAKE 1 CAPSULE DAILY 12/24/2013 11/29/2014 Inactive Klor-Con 10 mEq tabl et,extended release RxNorm: 870912 1 Tablet(s) PO daily 12/24/2013 10/13/2015 In active Bydureon 2 mg subcut aneous extended release suspension RxNorm: 7991514 1 injection SQ QW 12/07/2013 07/20/2014 Inactive Synthroid 25 mcg tablet RxNorm: 221232 1 Tablet(s) PO daily 12/02/2013 11/26/2014 Inactive Klor-Con 10 mEq tabl et,extended release RxNorm: 385830 1 Tablet(s) PO daily take 2 daily x 1 week then one daily thereafter 12/02/2013 12/23/2013 Inactive oxazepam 10 mg capsule RxNorm: 692039 1 Capsule(s) PO TID PRN 11/10/2013 01/08/2014 Inactive omeprazole 20 mg cap alma,delayed release RxNorm: 825260 1 Capsule(s) PO daily 11/10/2013 04/13/2014 In active Synthroid 50 mcg tablet RxNorm: 051050 Tablet(s) PO TAKE 1 TABLET DAILY 09/21/2013 12/01/2013 In active furosemide 40 mg tablet RxNorm: 640580 Tablet(s) PO TAKE 1 TABLET DAILY 09/21/2013 06/14/2014 In active Bydureon 2 mg subcut aneous extended release suspension RxNorm: 7196135 1 injection SQ QW 07/22/2013 12/06/2013 Inactive Bydureon 2 mg subcut aneous extended release suspension RxNorm: 4712203 1 injection SQ QW 07/14/2013 07/21/2013 Inactive Nexium 40 mg capsule ,delayed release RxNorm: 246723 Capsule(s) PO TAKE 1 CAPSULE DAILY 06/18/2013 11/09/2013 Inactive fluticasone 50 mcg/a ctuation nasal spray,suspension RxNorm: 330472 1 [place] NASAL BID 06/18/2013 07/05/2014 Inactive Lipitor 10 mg tablet RxNorm: 272981 Tablet(s) PO every other day 1 tablet qo d 06/18/2013 06/12/2014 In active losartan 25 mg tablet RxNorm: 056663 1 Tablet(s) PO daily 1 daily for blood p ressure 06/18/2013 10/15/2013 Inactive Toprol XL 25 mg tabl et,extended release RxNorm: 182090 1 Tablet(s) PO daily 06/18/2013 06/12/2014 In active Toprol XL 25 mg tabl et,extended release RxNorm: 231209 1 Tablet(s) PO daily 06/12/2013 06/17/2013 In active losartan 25 mg tablet RxNorm: 190589 1 Tablet(s) PO daily 1 daily for blood p ressure 06/12/2013 06/17/2013 Inactive Lipitor 10 mg tablet RxNorm: 806821 Tablet(s) PO every other day 1 tablet qo d 06/12/2013 06/17/2013 In active Effexor XR 150 mg ca psule,extended release RxNorm: 733921 1 Capsule(s) PO daily TAKE 1 CAPSULE DAILY 05/27/2013 12/23/2013 Inactive Bydureon 2 mg subcut aneous extended release suspension RxNorm: 5196034 1 injection SQ QW 05/20/2013 07/13/2013 Inactive Lipitor 10 mg tablet RxNorm: 692836 Tablet(s) PO every other day 1 tablet qo d 05/20/2013 06/11/2013 In active Pen Needle 32 x 5/32" RxNorm: Miscellaneous use with byetta pen 05/07/2013 09/03/2013 Inactive Effexor XR 150 mg ca psule,extended release RxNorm: 393022 1 Capsule(s) PO daily TAKE 1 CAPSULE DAILY 05/07/2013 05/26/2013 Inactive Pen Needle 32 x 5/32" RxNorm: Miscellaneous use with byetta pen 05/06/2013 05/06/2013 Inactive Pen Needle 32 x 5/32" RxNorm: Miscellaneous use with byetta pen 05/06/2013 05/05/2013 Inactive Byetta 5 mcg/0.02 mL per dose Sub-Q Pen Injector RxNorm: 622344 1 Unit Dose SQ BID 04/29/2013 05/19/2013 In active metformin ER 500 mg tablet,extended release 24 hr RxNorm: 983611 1 Tablet(s) PO BID 04/28/2013 06/19/2013 In active Byetta 5 mcg/0.02 mL per dose Sub-Q Pen Injector RxNorm: 709670 1 Unit Dose SQ BID 04/28/2013 04/27/2013 In active Byetta 5 mcg/0.02 mL per dose Sub-Q Pen Injector RxNorm: 288217 1 Unit Dose SQ BID 04/28/2013 04/28/2013 In active Influenza Virus Vacc ine 0.5 mL RxNorm: IM 04/27/2013 04/27/2013 Inactive glyburide 2.5 mg tablet RxNorm: 998269 1 Tablet(s) PO BID 04/27/2013 04/27/2013 Inactive glyburide 2.5 mg tablet RxNorm: 779223 1/2 Tablet(s) PO daily 04/13/2013 04/26/2013 Inactive glyburide 2.5 mg tablet RxNorm: 987496 1 Tablet(s) PO daily 04/09/2013 04/12/2013 Inactive metformin ER 500 mg tablet,extended release 24 hr RxNorm: 731570 2 Tablet(s) PO BID 04/09/2013 04/27/2013 In active Lipitor 10 mg tablet RxNorm: 099754 Tablet(s) PO TAKE 1 TABLET AT BEDTIME 03/17/2013 05/19/2013 In active losartan 25 mg tablet RxNorm: 908286 1 Tablet(s) PO daily 02/12/2013 06/11/2013 Inactive montelukast 10 mg ta blet RxNorm: 040302 1 Tablet(s) PO daily 02/09/2013 02/08/2013 Inactive montelukast 10 mg ta blet RxNorm: 907653 1 Tablet(s) PO daily 02/09/2013 02/03/2014 Inactive losartan 25 mg tablet RxNorm: 544540 1 Tablet(s) PO daily 02/09/2013 02/11/2013 Inactive losartan 25 mg tablet RxNorm: 046556 1 Tablet(s) PO daily 01/26/2013 02/08/2013 Inactive Effexor XR 150 mg ca psule,extended release RxNorm: 258594 Capsule(s) PO TAKE 1 CAPSULE DAILY 12/24/2012 05/06/2013 Inactive metformin ER 500 mg tablet,extended release 24 hr RxNorm: 393719 Tablet(s) PO TAKE 2 TABLETS TWICE A DAY 12/24/2012 04/08/2013 Inactive pilocarpine 5 mg tablet RxNorm: 5335627 Tablet(s) PO TAKE 4 TABLETS DAILY 12/24/2012 01/31/2014 In active levofloxacin 500 mg tablet RxNorm: 396918 1 Tablet(s) PO daily 12/15/2012 12/19/2012 Inactive Nexium 40 mg capsule ,delayed release RxNorm: 752416 Capsule(s) PO daily T MILO 1 CAPSULE DAILY 11/03/2012 06/17/2013 Inactive Claritin-D 12 Hour 5 mg-120 mg tablet,extended release RxNorm: 1681112 1 Tablet(s) PO BID 10/29/2012 10/23/2013 Inactive TAKE 1 TABLET BY MOUTH TWICE DAILY fluticasone 50 mcg/a ctuation nasal spray,suspension RxNorm: 0612635 1 [place] NASAL BID 10/08/2012 06/17/2013 Inactive Claritin-D 12 Hour 5 mg-120 mg tablet,extended release RxNorm: 7793991 1 Tablet(s) PO BID 09/09/2012 2012 Inactive TAKE 1 TABLET BY MOUTH TWICE DAILY montelukast 10 mg ta blet RxNorm: 319338 1 Tablet(s) PO daily 08/20/2012 02/08/2013 Inactive Synthroid 50 mcg tablet RxNorm: 756871 Tablet(s) PO TAKE 1 TABLET DAILY 08/18/2012 09/20/2013 In active Nexium 40 mg capsule ,delayed release RxNorm: 201124 Capsule(s) PO TAKE 1 CAPSULE DAILY 08/18/2012 11/02/2012 Inactive furosemide 40 mg tablet RxNorm: 502585 Tablet(s) PO TAKE 1 TABLET DAILY 08/18/2012 09/20/2013 In active Klor-Con 10 mEq tabl et,extended release RxNorm: 459961 Tablet(s) PO TAKE 1 T ABLET DAILY 08/18/2012 12/01/2013 Inactive Xanax 0.5 mg tablet RxNorm: 787065 1 Tablet(s) PO Q6 PRN 07/17/2012 10/13/2015 Inactive Zithromax 250 mg tablet RxNorm: 767908 Tablet(s) PO 07/14/2012 11/10/2013 Inactive disp one z ankit fluticasone 50 mcg/a ctuation Nasal [place], Susp RxNorm: 0504137 1 [place] NASAL BID 06/27/2012 10/07/2012 In active Anusol-HC 25 mg Supp ository RxNorm: 9875967 1 Suppository RTL QD AY PRN 06/09/2012 12/22/2018 In active daily x 3 days then prnno longer than 10 days in row use Claritin-D 12 Hour 5 mg-120 mg tablet,extended release RxNorm: 4259425 1 Tablet(s) PO BID 05/22/2012 05/22/2012 Inactive TAKE 1 TABLET BY MOUTH TWICE DAILY Claritin-D 12 Hour 5 mg-120 mg tablet,extended release RxNorm: 1813613 Tablet(s) PO 05/12/2012 05/21/2012 In active TAKE 1 TABLET BY MOUTH TWICE DAILY fluticasone 50 mcg/a ctuation Nasal [place], Susp RxNorm: 0656147 1 [place] NASAL BID 05/06/2012 06/26/2012 In active Rocephin 500 mg Solu tion for Injection RxNorm: 5771118 Inj 01/1802/12/2012 Inactive metronidazole 500 mg Tab RxNorm: 057893 1 Tablet(s) PO TID 02/12/2012 02/18/2012 Inactive Kenalog 40 mg/mL [place] p for Injection RxNorm: 6514806 Milliliter(s) Inj 02/12/2012 02/12/2012 In active fluticasone 50 mcg/a ctuation Nasal [place], Susp RxNorm: 6574466 1 [place] NASAL BID 02/12/2012 05/05/2012 In active cefdinir 300 mg Cap RxNorm: 078555 1 Capsule(s) PO BID 02/12/2012 02/21/2012 Inactive Effexor XR 150 mg ca psule,extended release RxNorm: 518987 1 Capsule(s) PO daily 12/17/2011 12/10/2012 In active metformin ER 500 mg tablet,extended release 24 hr RxNorm: 771534 2 Tablet(s) PO BID 12/17/2011 05/14/2012 In active pilocarpine 5 mg tablet RxNorm: 8169202 4 Tablet(s) PO daily 12/17/2011 03/15/2012 Inactive Singulair 10 mg Tab RxNorm: 038247 1 Tablet(s) PO daily 11/27/2011 08/19/2012 Inactive Nexium 40 mg capsule ,delayed release RxNorm: 308857 1 Capsule(s) PO daily 11/26/2011 03/24/2012 In active Claritin-D 12 Hour 5 mg-120 mg tablet,extended release RxNorm: 0840032 1 Tablet(s) PO BID 11/14/2011 05/11/2012 Inactive Claritin-D 12 Hour 5 mg-120 mg Tab RxNorm: 7104274 1 Tablet(s) PO BID 10/31/2011 11/13/2011 In active Claritin-D 12 Hour 5 mg-120 mg Tab RxNorm: 5389563 1 Tablet(s) PO BID 10/29/2011 2011 In active Claritin-D 12 Hour 5 mg-120 mg Tab RxNorm: 7134249 1 Tablet(s) PO BID 10/29/2011 10/30/2011 In active Claritin-D 24 Hour 1 0 mg-240 mg Tab RxNorm: 0038009 1 Tablet(s) PO daily 10/23/2011 2011 In active levofloxacin 500 mg Tab RxNorm: 266053 1 Tablet(s) PO daily 08/28/2011 09/03/2011 Inactive Nasonex 50 mcg/actua tion [place] RxNorm: 123364 1 [place] NASAL BID 08/28/2011 11/25/2011 Inactive promethazine 25 mg/m L Injection RxNorm: 285086 1 Milliliter(s) Inj 08/23/2011 07/14/2013 Inactive glyburide 2.5 mg tablet RxNorm: 686730 1 Tablet(s) PO daily 08/23/2011 04/08/2013 Inactive Rocephin 500 mg Solu tion for Injection RxNorm: 7276434 1 Milliliter(s) Inj 08/23/2011 08/28/2011 In active Klor-Con 10 10 mEq t ablet,extended release RxNorm: 797720 1 Tablet(s) PO daily 08/06/2011 07/30/2012 In active Nexium 40 mg Capsule , delayed release RxNorm: 435054 1 Capsule(s) PO daily 08/06/2011 11/25/2011 In active furosemide 40 mg tablet RxNorm: 623542 1 Tablet(s) PO daily 08/06/2011 07/30/2012 Inactive Cymbalta 30 mg Cap RxNorm: 122891 1 Capsule(s) PO daily 07/26/2011 08/28/2011 Inactive Synthroid 50 mcg tablet RxNorm: 520974 Tablet(s) PO 06/21/2011 08/17/2012 Inactive TAKE 1 TABLET DAILY Neurontin 100 mg Cap RxNorm: 183060 2 Capsule(s) PO TID 06/19/2011 08/28/2011 Inactive ciprofloxacin 500 mg Tab RxNorm: 441735 1 Tablet(s) PO BID 06/19/2011 08/28/2011 Inactive Neurontin 100 mg Cap RxNorm: 861370 1 Capsule(s) PO QID 06/05/2011 06/18/2011 Inactive oxazepam 10 mg Cap RxNorm: 179334 1 Capsule(s) PO Q6 PRN 06/05/2011 10/02/2011 Inactive Influenza Virus Vacc ine 0.5 mL RxNorm: IM 06/05/2011 06/05/2011 Inactive hydrocodone-acetamin ophen 5 mg-500 mg Tab RxNorm: 213560 1 Tablet(s) PO Q6 PRN No Start Date Active Fish Oil 1,000 mg Cap RxNorm: 2 Capsule(s) PO BID No Start Date Active Zenpep 40,000-136,00 0-218,000 unit capsule,delayed release RxNorm: 6273560 1 Capsule(s) PO QID No Start Date Active Multiple Vitamins ch ewable tablet RxNorm: 1 Tablet(s) PO daily No Start Date Active mesalamine 4 gram/60 mL enema RxNorm: 044498 1 Milliliter(s) RTL d aily No Start Date Active aspirin 81 mg Cap, D elayed Release RxNorm: 877453 1 Capsule(s) PO daily No Start Date Active Vitamin B-12 1,000 m cg Tab RxNorm: 947774 2 Tablet(s) PO daily No Start Date Active Vitamin C With Darlyn Hips 1,000 mg Tab RxNorm: 209874 1 Tablet(s) PO daily No Start Date Active Lipitor 10 mg Tab RxNorm: 778899 1 Tablet(s) PO HS No Start Date 04/10/2011 Inactive EnteraGam 5 gram ora l powder packet RxNorm: 1 PO daily No S tart Date 12/22/2018 Inactive Lipitor 20 mg Tab RxNorm: 054955 1 Tablet(s) PO HS No Start Date 08/28/2011 Inactive Zithromax 250 mg tablet RxNorm: 719477 Tablet(s) PO No Start Date 07/13/2012 Inactive disp one z ankit Effexor XR 150 mg 24 hr Cap RxNorm: 751752 1 Capsule(s) PO daily No Start Date 12/16/2011 Inactive Bydureon 2 mg/0.65 m L subcutaneous pen injector RxNorm: 7559855 Milliliter(s) SQ QW No Start Date 10/13/2015 Inactive Centrum Ultra Women' s 18 mg-400 mcg Tab RxNorm: 1 Tablet(s) PO daily No Start Date 12/22/2018 Inactive furosemide 40 mg Tab RxNorm: 059470 1 Tablet(s) PO daily No Start Date 08/05/2011 Inactive Synthroid 25 mcg tablet RxNorm: 930909 1 Tablet(s) PO daily No Start Date 12/01/2013 Inactive Januvia 50 mg tablet RxNorm: 089228 1 Tablet(s) PO daily samples No Start Date 04/27/2013 Inactive Lipitor 10 mg tablet RxNorm: 557537 1 Tablet(s) PO daily No Start Date 03/16/2013 Inactive Crestor 10 mg tablet RxNorm: 954283 1 Tablet(s) PO QHS No Start Date 03/25/2016 Inactive Asacol HD 800 mg Tab RxNorm: 192547 2 Tablet(s) PO daily No Start Date 10/13/2015 Inactive pilocarpine 5 mg Tab RxNorm: 5631633 4 Tablet(s) PO daily No Start Date 12/16/2011 Inactive glyburide 2.5 mg Tab RxNorm: 595454 1 Tablet(s) PO BID No Start Date 08/22/2011 Inactive Claritin-D 24 Hour 1 0 mg-240 mg Tab RxNorm: 7146702 1 Tablet(s) PO daily No Start Date 10/22/2011 Inactive Vitamin D 1,000 unit Tab RxNorm: 415756 1 Tablet(s) PO daily No Start Date 10/13/2015 Inactive Tricor 145 mg Tab RxNorm: 416195 1 Tablet(s) PO daily No Start Date 10/14/2015 Inactive Zithromax Z-Ankit 250 mg tablet RxNorm: 476854 1 Tablet(s) PO UD No Start Date 11/06/2016 Inactive Synthroid 25 mcg tablet RxNorm: 380253 1 Tablet(s) PO daily No Start Date 05/01/2017 Inactive Claritin-D 12 Hour 5 mg-120 mg tablet,extended release RxNorm: 1313026 1 Tablet(s) PO BID No Start Date 12/23/2013 Inactive Singulair 10 mg Tab RxNorm: 940069 1 Tablet(s) PO daily No Start Date 11/26/2011 Inactive Linzess 290 mcg capsule RxNorm: 7745603 1 Capsule(s) PO daily No Start Date 12/22/2018 Inactive Calcium 600 + D(3) 6 00 mg (1,500)-200 unit Tab RxNorm: 574051 1 Tablet(s) PO daily No Start Date 10/13/2015 Inactive Lialda 1.2 gram tabl et,delayed release RxNorm: 326639 2 Tablet(s) PO daily No Start Date 09/17/2016 Inactive Effexor XR 150 mg 24 hr Cap RxNorm: 182333 1 Capsule(s) PO daily No Start Date 08/28/2011 Inactive aspirin 325 mg Tab RxNorm: 738873 1 Tablet(s) PO daily No Start Date 08/28/2011 Inactive Toprol XL 25 mg tabl et,extended release RxNorm: 073423 1 Tablet(s) PO daily No Start Date 06/11/2013 Inactive lisinopril 10 mg tablet RxNorm: 108106 1 Tablet(s) PO daily No Start Date 01/25/2013 Inactive Cymbalta 60 mg Cap RxNorm: 475201 1 Capsule(s) PO daily No Start Date 08/28/2011 Inactive Nexium 40 mg Cap RxNorm: 016943 1 Capsule(s) PO daily No Start Date 08/05/2011 Inactive dicyclomine 10 mg Cap RxNorm: 641844 1 Capsule(s) PO daily No Start Date 07/13/2013 Inactive Synthroid 50 mcg Tab RxNorm: 835976 1 Tablet(s) PO daily No Start Date 06/20/2011 Inactive metformin ER 500 mg 24 hr Tab RxNorm: 986284 2 Tablet(s) PO BID No Start Date 12/16/2011 Inactive Anusol-HC 25 mg Supp ository RxNorm: 0692599 1 Suppository RTL No Start Date 06/08/2012 Inactive daily x 3 days then prnno longer than 10 days in row use Medication Administered Medication Codes Instruc tions Start Date Status Kenalog 40 mg/mL suspension for injection RxNorm: 3931986 Milliliter 12/23/2018 No longer Active Kenalog 40 mg/mL suspension for injection RxNorm: 8538402 1Milliliter 05/26/2018 N o longer Active Influenza Virus Vaccine 0.5 mL RxNorm: 04/27/2013 No longer Active Rocephin 500 mg Solution for Injection RxNorm: 3157374 02/12/2012 No longer A ctive Kenalog 40 mg/mL Susp for Injection RxNorm: 2945771 Milliliter 02/12/2012 No longer Active Influenza Virus [...] Code Item Item Code Result Date %Hba1C Oqx059 % HbA1c 99771-7 6.6 % 04/01/2018 %Hba1C Bem693 Gluc Ave 143 mg/dL 04/01/2018 Lipid Ord30 CHOL 178 mg/dL 04/01/2018 Lipid Ord30 HDL 50.0 mg/dl 04/01/2018 Lipid Ord30 TRIG 221 mg/dL 04/01/2018 Lipid Ord30 LDL 84 mg/dL 04/01/2018 Lipid Ord30 C/HDL 3.6 Ratio 04/01/2018 %Hba1C End533 % HbA1c 94888-7 6.7 % 11/25/2017 %Hba1C Tei975 Gluc Ave 146 mg/dL 11/25/2017 Comp Metabolic Gte257 NA 144 mEq/L 04/30/2017 Comp Metabolic Gby376 K 4.3 mEq/L 04/30/2017 Comp Metabolic Pno496 CL 105 mEq/L 04/30/2017 Comp Metabolic Xqa669 CO2 29.0 mEq/L 04/30/2017 Comp Metabolic Pyq565 AN ION GAP 14 04/30/2017 Comp Metabolic Tzt558 GL UCOSE 109 mg/dL 04/30/2017 Comp Metabolic Cxj572 Cr eat 1.0 mg/dL 04/30/2017 Comp Metabolic Lsd331 eG FR 58 ml/min/1.73m2 04/30 Comp Metabolic Ega439 BUN 17 mg/dL 04/30/2017 Comp Metabolic Znm528 B/ C Ratio 17.3 Ratio 04/30/2017 Comp Metabolic Ber183 CA LCIUM 10.1 mg/dL 04/30/2017 Comp Metabolic Dtm252 AL K PHOS 47 U/L 04/30/2017 Comp Metabolic Nrb304 T(SGOT) 16 U/L 04/30/2017 Comp Metabolic Daa138 AL T(SGPT) 16 U/L 04/30/2017 Comp Metabolic Xqw758 BI LI T 0.4 mg/dL 04/30/2017 Comp Metabolic Pgi050 AL BUMIN 4.5 g/dL 04/30/2017 Comp Metabolic Ujr584 TP RO 6.7 g/dL 04/30/2017 Comp Metabolic Ndd473 GL OB 2.2 g/dL 04/30/2017 Comp Metabolic Vhf137 A/ G Ratio 2.0 Ratio 04/30/2017 Comp Metabolic Fvn633 Os mo 289 mOsmo 04/30/2017 Cbc With [...] 28.2 pg 04/30/2017 Cbc With Differential Ord2 [place]% 6.5 % 04/30/2017 Cbc With Differential Ord2 [...] 1.12 K/ul 04/30/2017 Cbc With Differential Ord2 [place] ABS# 0.2 K/ul 04/30/2017 Cbc With Differential Ord2 Eos ABS# 0.1 K/ul 04/30/2017 Cbc With Differential Ord2 Baso ABS# 0.0 K/ul 04/30/2017 %Hba1C Uoz916 % HbA1c 11312-8 6.7 % 04/30/2017 %Hba1C Nhp327 Gluc Ave 146 mg/dL 04/30/2017 Tsh Ord6 hTSH II 1.36 uIU/mL 04/30/2017 Lipid Ord30 CHOL 160 mg/dL 04/30/2017 Lipid Ord30 HDL 51.0 mg/dl 04/30/2017 Lipid Ord30 TRIG 195 mg/dL 04/30/2017 Lipid Ord30 LDL 70 mg/dL 04/30/2017 Lipid Ord30 C/HDL 3.1 Ratio 04/30/2017 Free T4 Qpj760 FREE T4 0.75 ng/dL 04/30/2017 Ferritin Ord22 FERRITIN 89.9 ng/mL 11/09/2016 Parathyroid Hormone Nqe391 PTH 36.20 pg/ml 11/09/2016 Tibc Ord40 Iron 75 ug/dl 11/08/2016 Tibc Ord40 UIBC 325 ug/dL 11/08/2016 Tibc Ord40 TIBC 400 ug/dL 11/08/2016 Tibc Ord40 Fe-%Sat 18.8 % 11/08/2016 Comp Metabolic Ubo147 NA 139 mEq/L 09/25/2016 Comp Metabolic Wdo711 K 4.3 mEq/L 09/25/2016 Comp Metabolic Uml590 CL 101 mEq/L 09/25/2016 Comp Metabolic Raw339 CO2 31.0 mEq/L 09/25/2016 Comp Metabolic Zek119 AN ION GAP 11 09/25/2016 Comp Metabolic Rqs569 GL UCOSE 116 mg/dL 09/25/2016 Comp Metabolic Rde331 Cr eat 1.1 mg/dL 09/25/2016 Comp Metabolic Wpm291 eG FR 53 ml/min/1.73m2 09/25 Comp Metabolic Ehb325 BUN 22 mg/dL 09/25/2016 Comp Metabolic Xrl137 B/ C Ratio 20.8 Ratio 09/25/2016 Comp Metabolic Hvk047 CA LCIUM 10.3 mg/dL 09/25/2016 Comp Metabolic Ntp681 AL K PHOS 52 U/L 09/25/2016 Comp Metabolic Tnc299 T(SGOT) 16 U/L 09/25/2016 Comp Metabolic Wqo880 AL T(SGPT) 17 U/L 09/25/2016 Comp Metabolic Pkn029 BI LI T 0.3 mg/dL 09/25/2016 Comp Metabolic Hrb041 AL BUMIN 4.7 g/dL 09/25/2016 Comp Metabolic Swq121 TP RO 6.9 g/dL 09/25/2016 Comp Metabolic Kdi737 GL OB 2.2 g/dL 09/25/2016 Comp Metabolic Fia007 A/ G Ratio 2.1 Ratio 09/25/2016 Comp Metabolic Uky849 Os mo 282 mOsmo 09/25/2016 Lipid Ord30 CHOL 182 mg/dL 09/25/2016 Lipid Ord30 HDL 55.0 mg/dl 09/25/2016 Lipid Ord30 TRIG 168 mg/dL 09/25/2016 Lipid Ord30 LDL 93 mg/dL 09/25/2016 Lipid Ord30 C/HDL 3.3 Ratio 09/25/2016 %Hba1C Dce738 % HbA1c 13607-1 7.0 % 09/25/2016 %Hba1C Vcj052 Gluc Ave 154 mg/dL 09/25/2016 Free T4 Gbn336 FREE T4 0.80 ng/dL 09/25/2016 Cbc With [...] 28.3 pg 09/25/2016 Cbc With Differential Ord2 [place]% 8.2 % 09/25/2016 Cbc With Differential Ord2 [...] 1.29 K/ul 09/25/2016 Cbc With Differential Ord2 [place] ABS# 0.3 K/ul 09/25/2016 Cbc With Differential Ord2 Eos ABS# 0.0 K/ul 09/25/2016 Cbc With Differential Ord2 Baso ABS# 0.0 K/ul 09/25/2016 Tsh Ord6 hTSH II 1.01 uIU/mL 09/25/2016 Tsh Ord6 hTSH II 1.35 uIU/mL 06/04/2016 Comp Metabolic Sln707 NA 135 mEq/L 06/04/2016 Comp Metabolic Eab922 K 3.8 mEq/L 06/04/2016 Comp Metabolic Hhw857 CL 99 mEq/L 06/04/2016 Comp Metabolic Uqc079 CO2 30.0 mEq/L 06/04/2016 Comp Metabolic Xru255 AN ION GAP 10 06/04/2016 Comp Metabolic Lck315 GL UCOSE 171 mg/dL 06/04/2016 Comp Metabolic Ofc655 Cr eat 1.0 mg/dL 06/04/2016 Comp Metabolic Kst749 eG FR 59 ml/min/1.73m2 06/04 Comp Metabolic Hyk399 BUN 22 mg/dL 06/04/2016 Comp Metabolic Fkg716 B/ C Ratio 22.4 Ratio 06/04/2016 Comp Metabolic Tjh556 CA LCIUM 10.4 mg/dL 06/04/2016 Comp Metabolic Azd286 AL K PHOS 68 U/L 06/04/2016 Comp Metabolic Hvf458 T(SGOT) 22 U/L 06/04/2016 Comp Metabolic Bqi703 AL T(SGPT) 25 U/L 06/04/2016 Comp Metabolic Jpo054 BI LI T 0.4 mg/dL 06/04/2016 Comp Metabolic Wlj795 AL BUMIN 4.5 g/dL 06/04/2016 Comp Metabolic Nac419 TP RO 7.0 g/dL 06/04/2016 Comp Metabolic Ikf054 GL OB 2.5 g/dL 06/04/2016 Comp Metabolic Bjw067 A/ G Ratio 1.8 Ratio 06/04/2016 Comp Metabolic Aea507 Os mo 277 mOsmo 06/04/2016 Cbc With [...] 29.1 pg 06/04/2016 Cbc With Differential Ord2 [place]% 7.9 % 06/04/2016 Cbc With Differential Ord2 [...] 1.58 K/ul 06/04/2016 Cbc With Differential Ord2 [place] ABS# 0.5 K/ul 06/04/2016 Cbc With Differential Ord2 Eos ABS# 0.1 K/ul 06/04/2016 Cbc With Differential Ord2 Baso ABS# 0.1 K/ul 06/04/2016 %Hba1C Kfz403 % HbA1c 80882-1 8.7 % 06/04/2016 %Hba1C Rug150 Gluc Ave 203 mg/dL 06/04/2016 Free T4 Ajd520 FREE T4 0.84 ng/dL 06/04/2016 Lipid Ord30 CHOL 111 mg/dL 06/04/2016 Lipid Ord30 HDL 51.0 mg/dl 06/04/2016 Lipid Ord30 TRIG 185 mg/dL 06/04/2016 Lipid Ord30 LDL 23 mg/dL 06/04/2016 Lipid Ord30 C/HDL 2.2 Ratio 06/04/2016 Microalbumin Msk774 Micr oAlb <0.7 mg/dL 06/04/2016 Comp Metabolic Got030 NA 142 mEq/L 03/12/2016 Comp Metabolic Unz053 K 4.1 mEq/L 03/12/2016 Comp Metabolic Sul339 CL 103 mEq/L 03/12/2016 Comp Metabolic Msv473 CO2 30.0 mEq/L 03/12/2016 Comp Metabolic Yjz652 AN ION GAP 13 03/12/2016 Comp Metabolic Krr240 GL UCOSE 138 mg/dL 03/12/2016 Comp Metabolic Wez625 Cr eat 0.8 mg/dL 03/12/2016 Comp Metabolic Zin818 eG FR 75 ml/min/1.73m2 03/12 Comp Metabolic Mmn745 BUN 18 mg/dL 03/12/2016 Comp Metabolic Fgp936 B/ C Ratio 22.8 Ratio 03/12/2016 Comp Metabolic Gkm380 CA LCIUM 9.8 mg/dL 03/12/2016 Comp Metabolic Ops262 AL K PHOS 83 U/L 03/12/2016 Comp Metabolic Sna866 T(SGOT) 15 U/L 03/12/2016 Comp Metabolic Krm695 AL T(SGPT) 20 U/L 03/12/2016 Comp Metabolic Gjs814 BI LI T 0.4 mg/dL 03/12/2016 Comp Metabolic Ina130 AL BUMIN 4.2 g/dL 03/12/2016 Comp Metabolic Zzq523 TP RO 6.4 g/dL 03/12/2016 Comp Metabolic Cwy987 GL OB 2.2 g/dL 03/12/2016 Comp Metabolic Ksc611 A/ G Ratio 1.9 Ratio 03/12/2016 Comp Metabolic Den767 Os mo 287 mOsmo 03/12/2016 %Hba1C Ykx010 % HbA1c 31397-7 7.2 % 03/12/2016 %Hba1C Siy304 Gluc Ave 160 mg/dL 03/12/2016 Comp Metabolic Qgn944 NA 138 mEq/L 10/18/2015 Comp Metabolic Zvo848 K 4.1 mEq/L 10/18/2015 Comp Metabolic Ptb314 CL 97 mEq/L 10/18/2015 Comp Metabolic Vxj209 CO2 32.0 mEq/L 10/18/2015 Comp Metabolic Ztr981 AN ION GAP 13 10/18/2015 Comp Metabolic Mpe919 GL UCOSE 145 mg/dL 10/18/2015 Comp Metabolic Ppq578 Cr eat 1.1 mg/dL 10/18/2015 Comp Metabolic Vjn027 eG FR 50 ml/min/1.73m2 10/17 Comp Metabolic Iyq454 BUN 23 mg/dL 10/18/2015 Comp Metabolic Yhi842 B/ C Ratio 20.4 Ratio 10/18/2015 Comp Metabolic Lef368 CA LCIUM 10.3 mg/dL 10/18/2015 Comp Metabolic Xup249 AL K PHOS 59 U/L 10/18/2015 Comp Metabolic Dtz666 T(SGOT) 17 U/L 10/18/2015 Comp Metabolic Cth531 AL T(SGPT) 21 U/L 10/18/2015 Comp Metabolic Lpl009 BI LI T 0.4 mg/dL 10/18/2015 Comp Metabolic Qbm113 AL BUMIN 4.6 g/dL 10/18/2015 Comp Metabolic Cpd083 TP RO 7.1 g/dL 10/18/2015 Comp Metabolic Zpl859 GL OB 2.5 g/dL 10/18/2015 Comp Metabolic Qwk065 A/ G Ratio 1.9 Ratio 10/18/2015 Comp Metabolic Abt626 Os mo 282 mOsmo 10/18/2015 Tsh Ord6 hTSH II 1.81 uIU/mL 10/18/2015 %Hba1C Ixh228 % HbA1c 39420-3 7.3 % 10/18/2015 %Hba1C Kxf165 Gluc Ave 163 mg/dL 10/18/2015 Iron Ord72 Iron 90 ug/dl 10/18/2015 Free T4 Ykc123 FREE T4 0.75 ng/dL 10/18/2015 Cbc With [...] 29.0 pg 10/18/2015 Cbc With Differential Ord2 [place]% 6.8 % 10/18/2015 Cbc With Differential Ord2 [...] 1.93 K/ul 10/18/2015 Cbc With Differential Ord2 [place] ABS# 0.5 K/ul 10/18/2015 Cbc With Differential [...] Lipid Ord30 C/HDL 2.3 Ratio 10/18/2015 TSH 2861987 TSH 1.042 uIU/ML 12/24/2012 A1C HPLC 2090677 A1C HPLC 37926-7 7.6 % 12/24/2012 ESR 9944435 ESR 2 MM/HR 12/23/2012 CHEM 14 9147265 AST 20 U/L 12/23/2012 CHEM 14 3197658 ALT 24 IU/L 12/23/2012 CHEM 14 2604272 BUN 16 MG/DL 12/23/2012 CHEM 14 1761217 ALBUMIN 4.7 GM/DL 12/23/2012 CHEM 14 9982126 CHLORIDE 102 MMOL/L 12/23/2012 CHEM 14 1815177 BILI TOT 0.3 MG/DL 12/23/2012 CHEM 14 3408318 ALK PHOS 109 U/L 12/23/2012 CHEM 14 7232988 SODIUM 142 MMOL/L 12/23/2012 CHEM 14 4206665 CREATINI NE 0.93 MG/DL 12/23/2012 CHEM 14 0477712 CALCIUM 10.0 MG/DL 12/23/2012 CHEM 14 8132312 POTASSIUM 3.7 MMOL/L 12/23/2012 CHEM 14 8234329 PROT TOT 7.2 GM/DL 12/23/2012 CHEM 14 1655318 GLUCOSE 116 MG/DL 12/23/2012 CHEM 14 1057909 BICARB 32 MMOL/L 12/23/2012 CHEM 14 3351828 ANION GAP 8 MEQ/L 12/23/2012 GFR CALC 6909601 GFR AA >60 ML/MIN 12/23/2012 GFR CALC 5281174 GFR NON -AA 59.0L ML/MIN 3 CBC 6192926 WBC 5.5 10e9/L 12/23/2012 CBC 6823219 RBC 4.90 10e12/L 12/23/2012 CBC 7268732 HGB 14.1 g/dL 12/23/2012 CBC 4960655 HCT DET 42.4 % 12/23/2012 CBC 5102736 MCV 86.5 fL 12/23/2012 CBC 7226659 MCH 28.8 pg 12/23/2012 CBC 5263989 MCHC 33.3 g/dL 12/23/2012 CBC 3187560 PLT 320 10e9/L 12/23/2012 CBC 0258489 MPV 9.9 fL 12/23/2012 CBC 5359588 BRANDIE % 63.7 % 12/23/2012 CBC 1798028 LY % 24.6 % 12/23/2012 CBC 2012970 MON % 6.3 % 12/23/2012 CBC 2453389 EOS % 4.7 % 12/23/2012 CBC 8498298 BASO % 0.7 % 12/23/2012 CBC 7361554 RDW 15.0 % 12/23/2012 CBC 9391110 ABS BRANDIE 3.50 10e9/L 12/23/2012 CBC 5644620 ABS LYMPH 1.35 10e9/L 12/23/2012 CBC 2793103 ABS MONO 0.35 10e9/L 12/23/2012 CBC 5856309 ABS EOS 0.26 10e9/L 12/23/2012 CBC 4170766 ABS BASO 0.04 10e9/L 12/23/2012 CBC 1026178 RDW-SD 47.1 fL 12/23/2012 CRP 20071212 CRP 0.1 MG/DL 12/23/2012 URINALYSIS NONAUTO W/O SCOPE 66343 Specific [place] 1.005 DateTime(Free Text in ) URINALYSIS NONAUTO W/O SCOPE 27289 PH 7.5 DateTime(Free Mina t in ) URINALYSIS NONAUTO W/O SCOPE 87378 GLUCOSE NEG DateTime(Free Mina t in ) URINALYSIS NONAUTO W/O SCOPE 10878 Protein NEG DateTime(Free Mina t in Apr) URINALYSIS NONAUTO W/O SCOPE 65220 Blood NEG DateTime(Free Mina t in ) URINALYSIS NONAUTO W/O SCOPE 85915 Bilirubin NEG DateTime(Free Mina t in ) URINALYSIS NONAUTO W/O SCOPE 98945 Ketones NEG DateTime(Free Mina t in Aprima) URINALYSIS NONAUTO W/O SCOPE 38836 Urobilinogen NEG DateTime(Free Text in Aprima) URINALYSIS NONAUTO W/O SCOPE 28903 Nitrite NEG DateTime(Free Mina t in Aprima) URINALYSIS NONAUTO W/O SCOPE 05138 Leukocytes NEG DateTime(Free Text in Aprima) Review [...] Procedure Codes Date THER/PROPH/DIAG INJ SC/IM CPT-4: 07641 12/23/2018 TRIAMCINOLONE ACET I [place] NOS CPT-4: J3301 12/23/2018 THER/PROPH/DIAG INJ SC/IM CPT-4: 30953 05/26/2018 TRIAMCINOLONE ACET I [place] NOS CPT-4: J3301 05/26/2018 FLU VAC NO PRSV 4 VA L 3 YRS+ CPT-4: 45564 05/02/2017 ADMIN INFLUENZA VIRU S VAC CPT-4: G0008 05/02/2017 ADMIN PNEUMOCOCCAL V ACCINE SNOMED CT: 82232622 CPT-4: G0009 05/02/2017 PNEUMOCOCCAL VACC [address]: 39579427 CPT-4: 89723 05/02/2017 FLU VAC NO PRSV 4 VA L 3 YRS+ CPT-4: 78025 05/06/2014 ADMIN PNEUMOCOCCAL V ACCINE SNOMED CT: 42664164 CPT-4: G0009 05/06/2014 PRESCRIP TRANSMIT A ERX SY CPT-4: G8553 06/12/2013 PRESCRIP TRANSMIT A ERX SY CPT-4: G8553 05/20/2013 ADMIN INFLUENZA VIRU S VAC CPT-4: G0008 04/27/2013 FLULAVAL VACC, 3 YRS & >, IM CPT-4: Q2036 04/27/2013 PRESCRIP TRANSMIT A ERX SY CPT-4: G8553 04/09/2013 PRESCRIP TRANSMIT A ERX SY CPT-4: G8553 01/26/2013 ROUTINE VENIPUNCTURE CPT-4: 53439 12/23/2012 PRESCRIP TRANSMIT A ERX SY CPT-4: G8553 06/09/2012 ROCEPHIN, PER 250 MG CPT-4: J0696 02/12/2012 TRIAMCINOLONE ACET I [place] NOS CPT-4: J3301 02/12/2012 PRESCRIP TRANSMIT A ERX SY CPT-4: G8553 02/12/2012 ROCEPHIN, PER 250 MG CPT-4: J0696 02/05/2012 URINALYSIS NONAUTO W /O SCOPE CPT-4: 26295 11/14/2011 REMOVE IMPACTED EAR WAX UNI CPT-4: 71436 08/28/2011 PRESCRIP TRANSMIT A ERX SY CPT-4: G8553 08/28/2011 ROCEPHIN, PER 250 MG CPT-4: J0696 08/23/2011 TRIAMCINOLONE ACET I [place] NOS CPT-4: J3301 08/23/2011 THER/PROPH/DIAG INJ SC/IM CPT-4: 00253 08/23/2011 PRESCRIP TRANSMIT A ERX SY CPT-4: G8553 08/23/2011 OCCULT BLOOD FECES CPT- 4: 47334 06/19/2011 URINALYSIS NONAUTO W /O SCOPE CPT-4: 44118 06/19/2011 PRESCRIP TRANSMIT A ERX SY CPT-4: G8553 06/19/2011 ADMIN INFLUENZA VIRU S VAC CPT-4: G0008 06/05/2011 FLULAVAL VACC, 3 YRS & >, IM CPT-4: Q2036 06/05/2011 Vital Signs Date Vital 02/16/2019 Blood Pressure 1: 126/60 Code: 8480-6 BMI: 28.4 Code: 03164-5 Heart Rate 1: 86 bpm Height: 5'3" SpO2: 98% Weight: 163 lbs 02/10/2019 Blood Pressure 1: 152/88 Code: 8480-6 Heart Rate 1: 82 bpm Height: SpO2: 96% Weight: 12/23/2018 Blood Pressure 1: 150/82 Code: 8480-6 Heart Rate 1: 89 bpm Height: SpO2: 95% Weight: 06/12/2018 Blood Pressure 1: 142/68 Code: 8480-6 BMI: 30.0 Code: 44521-2 Heart Rate 1: 91 bpm Height: 5'3" SpO2: 96% Weight: 172 lbs 05/26/2018 Blood Pressure 1: 142/72 Code: 8480-6 BMI: 30.0 Code: 21110-4 Heart Rate 1: 92 bpm Height: 5'3" SpO2: 96% Weight: 172 lbs 04/01/2018 Blood Pressure 1: 120/58 Code: 8480-6 BMI: 29.1 Code: 43165-5 Heart Rate 1: 83 bpm Height: 5'3" Respiratory Rate: 18 bpm SpO2: 95% Weight: 167 lbs 11/25/2017 Blood Pressure 1: 128/58 Code: 8480-6 BMI: 29.8 Code: 68307-3 Heart Rate 1: 83 bpm Height: 5'3" SpO2: 99% Weight: 171 lbs 09/18/2017 Blood Pressure 1: 140/72 Code: 8480-6 BMI: 30.3 Code: 26455-3 Heart Rate 1: 99 bpm Height: 5'3" SpO2: 97% Weight: 174 lbs 05/02/2017 Blood Pressure 1: 122/64 Code: 8480-6 BMI: 29.5 Code: 99096-3 Heart Rate 1: 81 bpm Height: 5'3" SpO2: 97% Weight: 169 lbs 03/29/2017 Blood Pressure 1: 134/68 Code: 8480-6 BMI: 30.0 Code: 42924-5 Heart Rate 1: 89 bpm Height: 5'3" SpO2: 98% Weight: 172 lbs 11/15/2016 Blood Pressure 1: 148/72 Code: 8480-6 BMI: 29.5 Code: 51511-6 Heart Rate 1: 102 bpm Height: 5'3" SpO2: 98% Weight: 169 lbs 11/06/2016 Blood Pressure 1: 140/78 Code: 8480-6 BMI: 29.8 Code: 86060-0 Heart Rate 1: 100 bpm Height: 5'3" SpO2: 97% Weight: 171 lbs 08/01/2016 Blood Pressure 1: 128/56 Code: 8480-6 BMI: 30.3 Code: 76294-0 Heart Rate 1: 88 bpm Height: 5'3" SpO2: 97% Weight: 174 lbs 07/02/2016 Blood Pressure 1: 126/62 Code: 8480-6 BMI: 31.0 Code: 10539-5 Heart Rate 1: 101 bpm Height: 5'3" SpO2: 97% Weight: 178 lbs 06/04/2016 Blood Pressure 1: 136/72 Code: 8480-6 BMI: 31.4 Code: 35395-2 Heart Rate 1: 103 bpm Height: 5'3" SpO2: 98% Weight: 180 lbs 03/26/2016 Blood Pressure 1: 134/74 Code: 8480-6 BMI: 30.7 Code: 79969-8 Heart Rate 1: 93 bpm Height: 5'3" SpO2: 98% Weight: 176 lbs 11/23/2015 Blood Pressure 1: 128/77 Code: 8480-6 BMI: 30.2 Code: 73021-1 Heart Rate 1: 74 bpm Height: 5'3" SpO2: 96% Weight: 173 lbs 10/14/2015 Blood Pressure 1: 122/72 Code: 8480-6 BMI: 30.3 Code: 47639-0 Heart Rate 1: 76 bpm Height: 5'3" SpO2: 97% Weight: 174 lbs 03/31/2015 Blood Pressure 1: 140/68 Code: 8480-6 BMI: 30.0 Code: 90575-5 Heart Rate 1: 93 bpm Height: 5'3" SpO2: 94% Weight: 172 lbs 08/31/2014 Blood Pressure 1: 122/74 Code: 8480-6 BMI: 31.2 Code: 74603-8 Heart Rate 1: 76 bpm Height: 5'3" Weight: 179 lbs 08/10/2014 Blood Pressure 1: 138/62 Code: 8480-6 BMI: 31.0 Code: 79347-6 Heart Rate 1: 80 bpm Height: 5'3" Weight: 178 lbs 05/06/2014 BMI: 31.2 Code: 63192-6 Height: 5'3" Weight: 179 lbs 04/14/2014 Blood Pressure 1: 136/68 Code: 8480-6 BMI: 31.4 Code: 10969-5 Heart Rate 1: 74 bpm Height: 5'3" Weight: 180 lbs 11/10/2013 Blood Pressure 1: 102/50 Code: 8480-6 BMI: 30.7 Code: 42040-8 Heart Rate 1: 76 bpm Height: 5'3" Weight: 176 lbs 07/14/2013 Blood Pressure 1: 136/80 Code: 8480-6 BMI: 30.3 Code: 94335-2 Heart Rate 1: 70 bpm Height: 5'3" Weight: 174 lbs 06/12/2013 Blood Pressure 1: 142/82 Code: 8480-6 BMI: 30.9 Code: 52682-9 Heart Rate 1: 72 bpm Height: 5'3" Weight: 177 lbs 05/20/2013 Blood Pressure 1: 132/70 Code: 8480-6 BMI: 31.2 Code: 16594-3 Heart Rate 1: 88 bpm Height: 5'3" Weight: 179 lbs 04/09/2013 Blood Pressure 1: 136/70 Code: 8480-6 BMI: 31.0 Code: 19126-1 Heart Rate 1: 100 bpm Height: 5'3" Weight: 178 lbs 01/26/2013 Blood Pressure 1: 118/56 Code: 8480-6 BMI: 30.7 Code: 74203-1 Heart Rate 1: 87 bpm Height: 5'3" Weight: 176 lbs 12/23/2012 Blood Pressure 1: 136/76 Code: 8480-6 Heart Rate 1: 104 bpm Respiratory Rate: 20 bpm Weight: 178 lbs 12/15/2012 Blood Pressure 1: 150/82 Code: 8480-6 Heart Rate 1: 100 bpm Temperature: 36.7 (C) / 98.1 (F) Weight: 178 lbs 10/22/2012 Blood Pressure 1: 138/82 Code: 8480-6 BMI: 30.2 Code: 57325-9 Heart Rate 1: 100 bpm Height: 5'3" Weight: 173 lbs 08/21/2012 Blood Pressure 1: 136/70 Code: 8480-6 BMI: 30.6 Code: 72918-8 Heart Rate 1: 98 bpm Height: 5'3" Weight: 175 lbs 8 oz 07/17/2012 Blood Pressure 1: 152/68 Code: 8480-6 BMI: 29.9 Code: 05422-3 Heart Rate 1: 92 bpm Height: 5'3" [...] 1: 122/68 Code: 8480-6 BMI: 29.5 Code: 84753-5 Heart Rate 1: 96 bpm Height: 5'3" [...] 1: 130/72 Code: 8480-6 BMI: 30.4 Code: 28942-5 Heart Rate 1: 92 bpm Height: 5'3" Respiratory Rate: 16 bpm Weight: 174 lbs 8 oz 06/19/2011 Blood Pressure 1: 122/70 Code: 8480-6 BMI: 30.2 Code: 27763-6 Heart Rate 1: 104 bpm Height: 5'3" Weight: 173 lbs 06/05/2011 Blood Pressure 1: 100/50 Code: 8480-6 BMI: 29.6 Code: 24010-9 Heart Rate 1: 96 bpm Height: 5'3" [...] 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 depression Pertinent Findings anxiety 08/21/2012 None depression [...] 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 depression Pertinent Findings anxiety 07/17/2012 None depression [...] 11/14/2011 States she is using the n klaee pot and claritin d twice daily. sinus [...] Encounters Encounter Performer Loca tion Codes Date ([id number]) 11522 EST. P ATIENT, LEVEL III Diagnosis: Other allergic rhinitis[ICD10: J30.89] Diagnosis: Major depressive disorder, recurrent, mild[ICD10: F33.0] Amy Cheung MD, [facility] CPT-4: 55495 02/16/2019 [id number] EST. PATIENT, LEVEL III Diagnosis: Other allergic rhinitis[ICD10: J30.89] Diagnosis: Benign paroxysmal vertigo, bilateral[ICD10: H81.13] Diagnosis: Dizziness and giddiness[ICD10: R42] Diagnosis: Muscle spasm of back[ICD10: M62.830] Mariana Cheung MD, [facility] CPT- 4: 81129 02/10/2019 ([id number]) 56184 EST. P ATIENT, LEVEL III Diagnosis: Pleurodynia[ICD10: R07.81] Diagnosis: Pain in thoracic spine[ICD10: M54.6] Amy Cheung MD, [facility] CPT-4: 13256 12/23/2018 ([id number]) 33629 EST. P ATIENT, LEVEL III Diagnosis: Gastro-esophageal reflux disease without esophagitis[ICD10: K21.9] Amy Cheung MD, [facility] CPT-4: 80915 06/12/2018 ([id number]) 95748 EST. P ATIENT, LEVEL III Diagnosis: Gastro-esophageal reflux disease without esophagitis[ICD10: K21.9] Diagnosis: Cough[ICD10: R05] Riya Cheung MD, [facility] CPT-4: 59258 05/26/2018 ([id number]) 13657 EST. 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 P ATIENT, LEVEL IV Diagnosis: Type 2 diabetes mellitus with hyperglycemia[ICD10: E11.65] Diagnosis: Essential (primary) hypertension[ICD10: I10] Amy Cheung MD, [facility] CPT-4: 37727 11/25/2017 ([id number]) 62125 EST. P ATIENT, LEVEL IV Diagnosis: Type 2 diabetes mell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[ICD10: E11.9] Diagnosis: Mixed hyperlipidemia[ICD10: E78.2] Diagnosis: Candidal stomatitis[ICD10: B37.0] Amy Cheung MD [facility] CPT-4: 86297 09/18/2017 ([id number]) 15806 EST. P ATIENT, LEVEL IV Diagnosis: Type 2 diabetes mell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[ICD10: E11.9] Diagnosis: Mixed hyperlipidemia[ICD10: E78.2] Diagnosis: Essential (primary) hypertension[ICD10: I10] Diagnosis: Encounter for immunization[ICD10: Z23] Amy Cheung MD [facility] CPT-4: 63988 05/02/2017 ([id number]) 73003 EST. P ATIENT, LEVEL III Diagnosis: Candidal stomatitis[ICD10: B37.0] Riya Cheung MD [facility] CPT- 4: 94776 03/29/2017 ([id number]) 77131 EST. P ATIENT, LEVEL IV Diagnosis: Essential (primary) hypertension[ICD10: I10] Diagnosis: Type 2 diabetes mell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[ICD10: E11.9] Amy Cheung MD [facility] CPT-4: 44956 11/15/2016 32915 EST. PATIENT, LEVEL III Diagnosis: Other malaise[ICD10: R53.81] Diagnosis: Other fatigue[ICD10: R53.83] Diagnosis: Type 2 diabetes mellitus with hyperglycemia[ICD10: E11.65] Diagnosis: Essential (primary) hypertension[ICD10: I10] Diagnosis: Weakness[ICD10: R53.1] Mariana Cheung MD, [facility] CPT-4: 33929 11/06/2016 ([id number]) 12618 EST. P ATIENT, LEVEL III Diagnosis: Type 2 diabetes mellitus with hyperglycemia[ICD10: E11.65] Amy Cheung MD, C CPT-4: 02313 08/01/2016 ([id number]) 04128 EST. P ATIENT, LEVEL III Diagnosis: Type 2 diabetes mellitus with hyperglycemia[ICD10: E11.65] Diagnosis: Gastroparesis[ICD10: K31.84] Amy Cheung MD, [facility] CPT-4: 94141 07/02/2016 ([id number]) 53558 EST. P ATIENT, LEVEL IV Diagnosis: Type 2 diabetes mellitus with hyperglycemia[ICD10: E11.65] Diagnosis: Hypothyroidism, unspecified[ICD10: E03.9] Amy Cheung MD, C CPT-4: 30277 06/04/2016 ([id number]) 85369 EST. P ATIENT, LEVEL IV Diagnosis: Type 2 diabetes mellitus with hyperglycemia[ICD10: E11.65] Diagnosis: Mixed hyperlipidemia[ICD10: E78.2] Diagnosis: Essential (primary) hypertension[ICD10: I10] Amy Cheung MD, C CPT-4: 20840 03/26/2016 ([id number]) 49068 EST. P ATIENT, LEVEL III Diagnosis: Essential (primary) hypertension[ICD10: I10] Diagnosis: Adjustment disorder with mixed anxiety and depressed mood[ICD10: F43.23] Amy Cheung MD, [facility] CPT-4: 01255 11/23/2015 ([id number]) 60317 EST. P ATIENT, LEVEL IV Diagnosis: Type 2 diabetes mellitus with hyperglycemia[ICD10: E11.65] Diagnosis: Panic disorder [episodic paroxysmal anxiety] without agoraphobia[ICD10: F41.0] Diagnosis: Adjustment disorder with mixed anxiety and depressed mood[ICD10: F43.23] Diagnosis: Essential (primary) hypertension[ICD10: I10] Amy Cheung MD, [facility] CPT-4: 78934 10/14/2015 ([id number]) 66361 EST. P ATIENT, LEVEL IV Diagnosis: DIABETES TYPE II[ICD9: 250.00] Diagnosis: GENERALIZED ANXIETY DISEASE[ICD9: 300.02] Diagnosis: ESSENTIAL HYPERTENSION[ICD9: 401.9] Diagnosis: ESOPHAGEAL REFLUX[ICD9: 530.81] Amy Cheung MD, [facility] CPT-4: 81813 03/31/2015 ([id number]) 75902 EST. P ATIENT, LEVEL IV Diagnosis: DM W/O COMPLICATION TYPE II, UNCONTROLLED[ICD9: 250.02] Diagnosis: ESSENTIAL HYPERTENSION[ICD9: 401.9] Diagnosis: DEPRESSIVE DISORDER NEC[ICD9: 311] Diagnosis: GENERALIZED ANXIETY DISEASE[ICD9: 300.02] Amy Cheung MD, [facility] CPT-4: 68428 08/31/2014 ([id number]) 99004 EST. P ATIENT, LEVEL IV Diagnosis: ESSENTIAL HYPERTENSION[ICD9: 401.9] Diagnosis: DIABETES TYPE II[ICD9: 250.00] Diagnosis: Constipation - functional[ICD9: 564.09] Diagnosis: Abdominal pain[ICD9: 789.00] Amy Cheung MD, [facility] CPT-4: 81816 08/10/2014 ([id number]) 80842 EST. P ATIENT, LEVEL III Diagnosis: Flu vaccine need[ICD9: V04.81] Diagnosis: Neck pain[ICD9: 723.1] Diagnosis: Chronic allergic rhinitis[ICD9: 477.9] Amy Cheung MD, [facility] CPT-4: 90080 05/06/2014 ([id number]) 55317 EST. P ATIENT, LEVEL IV Diagnosis: DM W/O COMPLICATION TYPE II, UNCONTROLLED[ICD9: 250.02] Diagnosis: GENERALIZED ANXIETY DISEASE[ICD9: 300.02] Diagnosis: ESSENTIAL HYPERTENSION[ICD9: 401.9] Diagnosis: Neck pain[ICD9: 723.1] Amy Cheung MD, [facility] CPT-4: 94803 04/14/2014 ([id number]) 51055 EST. P ATIENT, LEVEL IV Diagnosis: ESSENTIAL HYPERTENSION[SNOMED: 57609777] Diagnosis: DIABETES TYPE II[SNOMED: 815073596] Diagnosis: Iliotibial band syndrome[ICD9: 728.89] Diagnosis: DEPRESSIVE DISORDER NEC[ICD9: 311] Diagnosis: GENERALIZED ANXIETY DISEASE[ICD9: 300.02] Amy Cheung MD, [facility] CPT-4: 62404 11/10/2013 ([id number]) 40775 EST. P ATIENT, LEVEL III Diagnosis: DIABETES TYPE II[SNOMED: 774738740] Amy Cheung MD, [facility] CPT- 4: 24323 07/14/2013 ([id number]) 29526 EST. P ATIENT, LEVEL IV Diagnosis: ESSENTIAL HYPERTENSION[SNOMED: 92006177] Diagnosis: DM W/O COMPLICATION TYPE II, UNCONTROLLED[SNOMED: 13472601] Amy Cheung MD, [facility] CPT-4: 78187 06/12/2013 ([id number]) 04622 EST. P ATIENT, LEVEL III Diagnosis: DIABETES TYPE II[SNOMED: 174286901] Amy Cheung MD, [facility] CPT- 4: 96453 05/20/2013 ([id number]) 21230 EST. P ATIENT, LEVEL IV Diagnosis: ESSENTIAL HYPERTENSION[SNOMED: 83807574] Diagnosis: HYPERLIPIDEMIA[ICD9: 272.4] Diagnosis: Type II diabetes mellitus, uncontrolled[SNOMED: 78074010] Amy Cheung MD, [facility] CPT-4: 25500 04/09/2013 ([id number]) 95816 EST. P ATIENT, LEVEL III Diagnosis: ESSENTIAL HYPERTENSION[SNOMED: 88545385] Diagnosis: ENCNTR LONG-RX USE NEC[ICD9: V58.69] Diagnosis: IMPACTED CERUMEN[ICD9: 380.4] Amy Cheung MD, [facility] CPT-4: 32471 01/26/2013 ([id number]) 23434 EST. P ATIENT, LEVEL IV Diagnosis: DIABETES TYPE II[SNOMED: 410083506] Diagnosis: ESSENTIAL HYPERTENSION[SNOMED: 38431716] Diagnosis: Polymyalgia[ICD9: 725] Amy Cheung MD, [facility] CPT-4: 96605 12/23/2012 ([id number]) 45727 EST. P ATIENT, LEVEL III Diagnosis: ACUTE MAXILLARY SINUSITIS[ICD9: 461.0] Diagnosis: COUGH[ICD9: 786.2] Amy Cheung MD, [facility] CPT-4: 86687 12/15/2012 ([id number]) 90811 EST. P ATIENT, LEVEL III Diagnosis: ANAL OR RECTAL PAIN[ICD9: 569.42] Diagnosis: Bruising[ICD9: 924.9] Diagnosis: Hip pain[ICD9: 719.45] Amy Cheung MD, [facility] CPT-4: 99656 10/22/2012 ([id number]) 06843 EST. P ATIENT, LEVEL IV Diagnosis: ESSENTIAL HYPERTENSION[SNOMED: 69990467] Diagnosis: DIABETES TYPE II[SNOMED: 618777898] Amy Cheung MD, [facility] CPT- 4: 74466 08/21/2012 ([id number]) 32996 EST. P ATIENT, LEVEL IV Diagnosis: DIABETES TYPE II[SNOMED: 987367962] Diagnosis: DEPRESSIVE DISORDER NEC[ICD9: 311] Amy Cheung MD, [facility] CPT- 4: 45500 07/17/2012 ([id number]) 95902 EST. P ATIENT, LEVEL III Diagnosis: ESSENTIAL HYPERTENSION[SNOMED: 17477157] Diagnosis: DEPRESSIVE DISORDER NEC[ICD9: 311] Amy Cheung MD, [facility] CPT- 4: 86066 07/08/2012 89209 EST. PATIENT, LEVEL IV Diagnosis: ESSENTIAL HYPERTENSION[SNOMED: 77800451] Diagnosis: DIABETES TYPE II[SNOMED: 926438313] [facility] CPT- 4: 90081 06/09/2012 ([id number]) 51632 EST. P ATIENT, LEVEL III Diagnosis: Acute sinusitis[ICD9: 461.9] Diagnosis: FEVER NOS[ICD9: 780.60] [facility] CPT-4: 94846 02/12/2012 ([id number]) 23335 EST. P ATIENT, LEVEL III Diagnosis: Otalgia of both ears[ICD9: 388.70] Diagnosis: Hemorrhoids[ICD9: 455.6] Diagnosis: Rectal or anal pain[ICD9: 569.42] Amy Cheung MD [facility] CPT-4: 34816 02/05/2012 ([id number]) 36827 EST. P ATIENT, LEVEL IV Diagnosis: Dysuria[ICD9: 788.1] Diagnosis: ACUTE MAXILLARY SINUSITIS[ICD9: 461.0] Diagnosis: Allergic rhinitis[ICD9: 477.9] Amy Cheung MD, [facility] CPT-4: 05562 11/14/2011 ([id number]) 13775 EST. P ATIENT, LEVEL IV Diagnosis: DIABETES TYPE II[SNOMED: 474506320] Diagnosis: Cough[ICD9: 786.2] Diagnosis: FEVER NOS[ICD9: 780.60] Amy Cheung MD [facility] CPT-4: 89567 10/08/2011 42615 EST. PATIENT, LEVEL IV Diagnosis: OTHER CONSTIPATION[ICD9: 564.09] Diagnosis: IMPACTED CERUMEN[ICD9: 380.4] Diagnosis: Recurrent sinusitis[ICD9: 473.9] Amy Cheung MD [facility] CPT-4: 12067 08/28/2011 41045 EST. PATIENT, LEVEL IV Diagnosis: Neck pain, acute[ICD9: 723.1] Diagnosis: Cough[ICD9: 786.2] Diagnosis: Cerumen impaction[ICD9: 380.4] Amy Cheung MD [facility] CPT-4: 76827 08/23/2011 57378 EST. PATIENT, LEVEL IV Diagnosis: ESSENTIAL HYPERTENSION[SNOMED: 08815442] Diagnosis: HYPERLIPIDEMIA[ICD9: 272.4] Diagnosis: DIABETES TYPE II[SNOMED: 437579472] Diagnosis: DEPRESSIVE DISORDER NEC[ICD9: 311] Diagnosis: 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[ICD9: 357.7] Amy Cheung MD, [facility] CPT-4: 40063 07/24/2011 21056 EST. PATIENT, LEVEL IV Diagnosis: Abdominal pain[ICD9: 789.00] Diagnosis: Hematochezia[ICD9: 578.1] Diagnosis: Back pain[ICD9: 724.5] [facility] CPT-4: 61952 06/19/2011 19289 EST. 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5 [facility]66[facility] (15 min) Moderate 02/10/2019 Patient Education: Patient Medication Summary Completed 02/10/2019 Visit Plan: Rib pain and thoracic s pine pain - status post fall at home - discussed with pt - need to check xrays - okay to keep using her back brace. Rx for muscle relaxer sent to patient's pharmacy. Kenalog shot given in clinic today. 12/23/2018 Appointment: Amy Cheung WPtel: [facility]0 [facility]6[address] (15 min) Moderate 12/23/2018 Patient Education: Patient Medication Summary Completed 12/23/2018 Care Plan: X-RAY EXAM THORAC SPINE 2VWS LOINC : 14256-8 Pending 12/23/2018 Visit Plan: Esophageal Reflux - the patient has been counseled against excessive intake of caffeine, spicy foods, peppermint, and cinnamon - all of which can exacerbate esophageal reflux. The patient is to take medications as prescribed and call the office if the symptoms are not improving. Advised pt to use lactaid pills 06/12/2018 Appointment: Amy Cheung WPtel: [facility]4 [facility]6[address] (15 min) Moderate 06/12/2018 Appointment: Riya Sheikh WPtel: [facility]3 [phone] [facility] - Annual Wellness Visit 06/12/2018 Patient Education: Patient Medication Summary Completed 06/12/2018 Visit Plan: Esophageal Reflux - the patient has been counseled against excessive intake of caffeine, spicy foods, peppermint, and cinnamon - all of which can exacerbate esophageal reflux. The patient is to take medications as prescribed and call the office if the symptoms are not improving. Rmxyq-vzpskgobl-bsvtrpd injection today in the office -start claritin [...] controlled. 04/01/2018 Appointment: Amy Cheung WPtel: [phone] [facility] (15 min) Moderate 04/01/2018 Patient Education: Patient Medication Summary Completed 04/01/2018 Patient Education: Patient Medication Summary Completed 03/31/2018 App[facility]ment: [phone] [place] (15 min) Moderate 01/15/2018 Visit Plan: [...] home. 11/25/2017 Appointment: [phone] [place] (15 min) Moderate 11/25/2017 Patient Education: [...] for nystatin 09/18/2017 Appointment: [facility]el[phone] (15 min) Moderate 09/18/2017 Patient Education: Patient [...] shot today 05/02/2017 Appointment: [phone] [place] (15 min) Moderate 05/02/2017 Patient Education: Patient Medication Summary Completed 05/02/2017 Appointment: Amy Cheung WPtel: [phone] [facility] (15 min) Moderate 04/15/2017 Visit Plan: Thrush-discussed natura l and expected course of this diagnosis and to alert me if symptoms do not follow expected course, or if any worse. RX sent to patient's pharmacy. Patient verbalized understanding of plan. 03/29/2017 Appointment: Riya Sheikh WPtel: [phone] [phone] [place] (30 min) Complex 03/29/2017 Patient Education: Patient Medication Summary Completed 03/29/2017 Patient Education: Obesity Completed 03/29/2017 Appointment: Amy Cheung WPtel: [facility]8 [facility] (15 min) Moderate 03/14/2017 Visit Plan: Diabetes [...] at home. 11/15/2016 Appointment: Amy Cheung WPtel: [phone] [facility] [place] (15 min) Moderate 11/15/2016 Patient Education: Patient Medication Summary Completed 11/15/2016 Appointment: Amy Cheung WPtel: [phone] [facility] [place] (15 min) Moderate 11/07/2016 Visit Plan: [...] control. 11/06/2016 Appointment: [phone] [facility] (30 min) Complex 11/06/2016 Patient Education: Patient Medication Summary Completed 11/06/2016 Patient Education: Patient Medication Summary Completed 09/19/2016 Patient Education: Patient Medication Summary Completed 08/22/2016 Care Plan: Comp Metabolic Pending 08/22/2016 Care Plan: %Hba1C she can have drawn anytime after 09/04/16 LOINC : 22016-7 Pending 08/22/2016 Visit Plan: Diabetes Mellitus - [...] clinic. 08/01/2016 Appointment: [facility] Che[facility]el[phone] [place] (15 min) Moderate 08/01/2016 Patient Education: Patient Medication Summary Completed 08/01/2016 Appointment: [facility] Che[facility]Ptel[phone] [place] (15 min) Moderate 07/09/2016 Visit Plan: [...] motility 07/02/2016 Appointment: [facility] Che[facility]Ptel[phone] [place] (15 min) Moderate 07/02/2016 Patient Education: [...] of control. 06/04/2016 Appointment: Amy Cheung [facility]Ptel: [phone] [place] (15 min) Moderate 06/04/2016 Patient Education: [...] to medications. 03/26/2016 Appointment: Amy Cheung WPtel: [address] [place], [place] [address] (15 min) Moderate 03/26/2016 Patient Education: Patient [...] Completed 10/14/2015 Appointment: Amy Cheung WPtel: [phone] [facility] (15 min) Moderate 10/13/2015 Appointment: Amy Cheung WPtel: [phone] [facility] (15 min) Moderate 05/09/2015 Visit Plan: Diabetes [...] esophageal cancer. 03/31/2015 Appointment: Amy Cheung [facility]Ptel: [phone] [place] (15 min) Moderate 03/31/2015 Patient Education: Patient Medication Summary Completed 03/31/2015 Patient Education: Hypertension Completed 03/31/2015 Appointment: (15 min) Moderate 02/11/2015 Appointment: Amy Cheung [facility]Ptel: [phone] [place] Sick 09/29/2014 Visit Plan: Diabetes Mellitus [...] 9 months. 08/31/2014 Appointment: [facility]Ptel[phone] Follow up 08/31/2014 Patient Education: Patient Medication [...] Hypertension Completed 08/10/2014 Appointment: [facility] Cheung [facility]Ptel: [phone] Follow up 05/10/2014 Visit Plan: Allergies - [...] be ordered. 05/06/2014 Appointment: Amy Cheung WPtel: [facility]1 [facility] Follow up 05/06/2014 Patient Education: Patient Medication Summary Completed 05/06/2014 Patient Education: .Cervicalgia Neck Pain Completed 05/06/2014 Appointment: Amy Cheung WPtel: [facility]6 [facility] Follow up 05/05/2014 Visit Plan: Hypertension - [...] the neck. 04/14/2014 Appointment: Amy Cheung WPtel: [phone] [facility] [place] Follow up 04/14/2014 Patient Education: Patient [...] band exercises. 11/10/2013 Appointment: Amy Cheung WPtel: [address] [place] [address] Other 11/10/2013 Patient Education: Patient Medication Summary [...] monitor symptoms. 07/14/2013 Appointment: Amy Cheung WPtel: [address] [place], [place] [phone] [place] Other 07/14/2013 Patient Education: Patient Medication Summary Completed 07/14/2013 Appointment: Riya Sheikh WPtel: [address] [place], [place] [phone] Follow up 07/13/2013 Visit Plan: Hypertension - [...] glucose control. 06/12/2013 Appointment: Riya Sheikh WPtel: [facility] Other 06/12/2013 Patient Education: Patient [...] to patient. 05/20/2013 Appointment: Amy Cheung WPtel: [facility] [place] Follow up 05/20/2013 Patient Education: Patient Medication Summary Completed 05/20/2013 Appointment: Amy Cheung WPtel: [facility]5 [facility] [place] Follow up 05/07/2013 Appointment: Amy Cheung WPtel: [address] [place], [place] [phone] [place] Lab Draw 04/27/2013 Patient Education: Patient [...] a copy of this note to her Inspector General - Dr. Kraus as he will ultimately [...] restarted. 04/09/2013 Appointment: Amy Cheung [facility]Ptel: [phone] Follow up 04/09/2013 Patient Education: Patient Medication Summary Completed 04/09/2013 Patient Education: Hypertension Completed 04/09/2013 Appointment: Amy Cheung [facility]Ptel: [phone] Follow up 03/30/2013 Visit Plan: Hypertension - [...] water today 01/26/2013 Appointment: Amy Cheung WPtel: [facility]5 [facility] Other 01/26/2013 Patient Education: Patient Medication Summary [...] at home. 12/23/2012 Appointment: Amy Cheung WPtel: [facility]5 [facility] Follow up 12/23/2012 Patient Education: Patient Medication Summary Completed 12/23/2012 Patient Education: Hypertension Completed 12/23/2012 Visit Plan: Sinusitis - Pt has acut e infection - pain in face, maxillary region, Pt informed to use decongestant, RX given to patient, sinus rinses also recommended. Call if symptoms do not show improvement. 12/15/2012 Appointment: Amy Cheung WPtel: [phone] [facility] Sick 12/15/2012 Patient Education: Patient Medication Summary Completed 12/15/2012 Visit Plan: Bruising and pain post fall- with hip pain - recommended pt to have xray of hips and pelvis and lumbar spine as she is having the pain in her hips post fall. 10/22/2012 Appointment: Amy Cheung WPtel: [phone] [facility] Other 10/22/2012 Patient Education: Patient Medication Summary Completed 10/22/2012 Appointment: Amy Cheung WPtel: [phone] [facility] Follow up 09/30/2012 Visit Plan: Hypertension - [...] controlled. 08/21/2012 Appointment: Amy Cheung WPtel: [phone] [facility] Follow up 08/21/2012 Patient Education: Patient Medication [...] expressed understanding. 07/17/2012 Appointment: Amy Cheung WPtel: [address] [place], [place] [phone] Follow up 07/17/2012 Patient Education: Patient Medication [...] issues today. 07/08/2012 Appointment: Amy Cheung WPtel: [address] [place] [address] Other 07/08/2012 Patient Education: Patient Medication Summary [...] labs checked. 06/09/2012 Appointment: Amy Cheung WPtel: [facility] [place] Other 06/09/2012 Patient Education: Patient Medication Summary Completed 06/09/2012 Patient Education: High Blood Pressure: Essential Hypertension Completed 06/09/2012 Visit Plan: Sinusitis - Pt has acut e infection - pain in face, maxillary region, Pt informed to use decongestant, RX given to patient, sinus rinses also recommended. Call if symptoms do not show improvement. 02/12/2012 Appointment: Amy Cheung WPtel: [facility]9 [place] [phone] Other 02/12/2012 Patient Education: Patient Medication Summary [...] in place. 02/05/2012 Appointment: Amy Cheung WPtel: [address] [place] [address] Other 02/05/2012 Patient Education: Patient Medication Summary [...] any worse. Check your thyroid labs at [facility]-we will call you with the results. Allergies - chronic - recommended pt to use allergy medication as prescribed. Pt has been counseled as the the appropriate use of the medication. Pt to call if allergy symptoms are not controlled with the medication. Dysuria - UA negative 11/14/2011 Appointment: Amy Cheung WPtel: [address] [place], [place] [phone] [place] Other 11/14/2011 Appointment: Amy Cheung WPtel: [address] [place] [address] Other 11/14/2011 Patient Education: Patient Medication Summary [...] today. 10/08/2011 Appointment: Amy Cheung WPtel: [phone] [facility] Other 10/08/2011 Patient Education: Patient Medication Summary [...] process. 08/28/2011 Appointment: [facility]Ptel: [phone] Other 08/28/2011 Patient Education: Patient Medication Summary [...] in readings. 07/24/2011 Appointment: Amy Cheung WPtel: [address] [place], [place] [address] Other 07/24/2011 Patient Education: Patient Medication Summary [...] back. 06/19/2011 Appointment: [facility]Ptel: [phone] Other 06/19/2011 Patient Education: Patient Medication Summary [...] symptoms. 06/05/2011 Appointment: Amy Cheung WPtel: [phone] [facility]6[address] Other 06/05/2011 Patient Education: Patient Medication Summary [...] a copy of this note to her Inspector General - Dr. Kraus as he will ultimately [...] use lactaid pills I sent prescriptions to [facility] for the following medications: LOSARTAN 25MG DAILY [...] office if the symptoms are not improving. Rzpyy-tuyvjwzon-fdqnwqr injection today in the office -start claritin [...] any worse. Check your thyroid labs at [facility]-we will call you with the results. [...] any worse. Check your thyroid labs at [facility]-we will call you with the results. [...]
--- OUTSIDE RECORDS SUMMARY | 2019-08-12 22:46 | XMS REPORT | CCD ---
Author Author Veronica Cheung Organization Amy Cheung MD, [facility] Address [address] [place] [address] Phone Care Team Providers Care C Software Engineer Name Role Phone PP Unavailable CCM Unavailable Summary Purpose Interface Exchange Insurance Providers Payer name Policy type / Coverage type Covered libertarian ID Effective Begin Date Effective End Date WPS Medicare Part B Medicare Part B [id number] Unknown GEHA Medicare Part B [id number] Unknown Family history Father Diagnosis Age At [...] Codes Condition Status Onset Date Resolved Date Benign paroxysmal ve rtigo, bilateral ICD-9: 386.11 [...] ICD-9: 786.2 ICD-10: R05 Active 05/26/2018 Unknown Essential (primary) hypertension ICD-9: 401.1 ICD-10: I10 Active 11/15/2016 Unknown 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 Active 04/01/2018 Unknown Obstructive sleep ap lorie (adult) (pediatric) ICD-9: 327.23 ICD-10: G47.33 Active 04/01/2018 Unknown 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 ICD-9: 250.00 ICD-10: E11.9 Active 11/15/2016 Unknown Candidal stomatitis ICD- 9: 112.0 ICD-10: [...] Condition Codes Effectiv e Dates Condition Status Benign paroxysmal ve rtigo, bilateral ICD-9: 386.11 [...] Cough ICD-9: 786.2 ICD-10: R05 05/26/2018 Active Essential (primary) hypertension ICD-9: 401.1 ICD-10: I10 11/15/2016 Active 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 04/01/2018 Active Obstructive sleep ap lorie (adult) (pediatric) ICD-9: 327.23 ICD-10: G47.33 04/01/2018 Active 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 ICD-9: 250.00 ICD-10: E11.9 11/15/2016 Active Candidal stomatitis ICD- 9: 112.0 ICD-10: [...] Fill Instructions cyclobenzaprine 5 mg tablet RxNorm: 485620 1 Tablet(s) PO TID x 3 days then as needed for muscle spasms 02/10/2019 02/19/2019 Active meclizine 25 mg tablet RxNorm: 972061 1 Tablet(s) PO TID as needed Dizziness 02/10/2019 02/19/2019 Ac tive prednisone 20 mg tablet RxNorm: 335120 2 Tablet(s) PO daily 02/10/2019 02/14/2019 Active fluticasone propiona te 50 mcg/actuation nasal spray,suspension RxNorm: 1647526 [place] USE ONE SPRAY IN EACH NOSTRIL TWICE A DAY 02/10/2019 06/09/2019 Active levothyroxine 25 mcg tablet RxNorm: 887093 Tablet(s) TAKE 1 TABL ET DAILY 01/16/2019 07/14/2019 Ac tive mesalamine 800 mg ta blet,delayed release RxNorm: 595887 Tablet(s) TAKE 1 TABL ET TWICE A DAY 01/15/2019 01/09/2020 Active metformin 500 mg tablet RxNorm: 828725 TAKE 1 AND 1/2 TABLETS TWICE DAILY 01/15/2019 01/09/2020 Ac tive Nexium 40 mg capsule ,delayed release RxNorm: 417968 TAKE 1 CAPSULE TWICE DAILY 01/15/2019 01/09/2020 Ac tive Lialda 1.2 gram tabl et,delayed release RxNorm: 196068 2 Tablet(s) PO daily 12/23/2018 No Stop Date Active Kenalog 40 mg/mL elizabeth pension for injection RxNorm: 8058414 Milliliter(s) Inj 12/23/2018 12/23/2018 In active cyclobenzaprine 5 mg tablet RxNorm: 247852 1 Tablet(s) PO TID x 3 days then as needed for muscle spasms 12/23/2018 01/01/2019 Inactive furosemide 40 mg tablet RxNorm: 972607 TAKE 1 TABLET DAILY 12/01/2018 08/27/2019 Active Effexor XR 75 mg cap alma,extended release RxNorm: 668059 1 Capsule(s) PO daily 09/16/2018 09/10/2019 Ac tive levothyroxine 25 mcg tablet RxNorm: 801827 Tablet(s) TAKE 1 TABL ET DAILY 08/26/2018 01/15/2019 In active montelukast 10 mg ta blet RxNorm: 785047 TAKE 1 TABLET DAILY 07/21/2018 07/15/2019 Active Augmentin 500 mg-125 mg tablet RxNorm: 874117 1 Tablet(s) PO TID 05/27/2018 05/26/2018 Inactive Augmentin 500 mg-125 mg tablet RxNorm: 494180 1 Tablet(s) PO TID 05/27/2018 06/02/2018 Inactive Kenalog 40 mg/mL elizabeth pension for injection RxNorm: 6570605 1 Milliliter(s) Inj 05/26/2018 05/26/2018 In active pilocarpine 5 mg tablet RxNorm: 6439316 Tablet(s) TAKE 4 TABLETS DAILY 04/22/2018 07/15/2019 Ac tive Trulicity 1.5 mg/0.5 mL subcutaneous pen injector RxNorm: 5187187 INJECT 0.5ML SUBCUTANEOUSLY EVERY WEEK 02/24/2018 04/29/2019 Active levothyroxine 25 mcg tablet RxNorm: 996511 TAKE 1 TABLET DAILY 02/13/2018 08/11/2018 Inactive mesalamine 800 mg ta blet,delayed release RxNorm: 302872 TAKE 1 TABLET TWICE A DAY 12/10/2017 12/03/2018 In active metformin 500 mg tablet RxNorm: 431216 1.5 Tablet(s) PO BID 11/25/2017 11/19/2018 Inactive levothyroxine 25 mcg tablet RxNorm: 692458 TAKE 1 TABLET DAILY 11/19/2017 02/12/2018 Inactive Nexium 40 mg capsule ,delayed release RxNorm: 806206 TAKE 1 CAPSULE TWICE DAILY 11/15/2017 11/09/2018 In active Effexor XR 75 mg cap alma,extended release RxNorm: 949625 1 Capsule(s) PO daily 10/14/2017 09/15/2018 In active Bactroban 2 % topica l cream RxNorm: 475802 1 Application TOP TID 09/18/2017 09/27/2017 Inactive nystatin 100,000 uni t/mL oral suspension RxNorm: 778666 5 Milliliter(s) PO TI D 09/18/2017 09/27/2017 In active oxazepam 10 mg capsule RxNorm: 331493 1 Capsule(s) PO TID as needed anxiety 09/02/2017 02/28/2018 In active oxazepam 10 mg capsule RxNorm: 039229 1 Capsule(s) PO TID as needed anxiety 08/29/2017 09/01/2017 In active fluticasone 50 mcg/a ctuation nasal spray,suspension RxNorm: 5918141 [place] USE ONE SPRAY IN EACH NOSTRIL TWICE A DAY 08/29/2017 12/26/2017 Inactive furosemide 40 mg tablet RxNorm: 554917 TAKE 1 TABLET DAILY 08/26/2017 08/20/2018 Inactive pilocarpine 5 mg tablet RxNorm: 7483310 TAKE 4 TABLETS DAILY 08/26/2017 04/21/2018 Inactive metformin 500 mg tablet RxNorm: 695015 TAKE 1 TABLET TWICE A DAY 08/20/2017 11/24/2017 Inactive Claritin-D 12 Hour 5 mg-120 mg tablet,extended release RxNorm: 6453550 Tablet(s) TAKE ONE (1) TABLET BY MOUTH TWICE DAILY 07/29/2017 12/22/2018 Inactive fluticasone 50 mcg/a ctuation nasal spray,suspension RxNorm: 2158721 [place] USE ONE SPRAY IN EACH NOSTRIL TWICE A DAY 07/25/2017 07/24/2017 Inactive fluticasone 50 mcg/a ctuation nasal spray,suspension RxNorm: 7593869 [place] USE ONE SPRAY IN EACH NOSTRIL TWICE A DAY 07/25/2017 08/28/2017 Inactive fluticasone 50 mcg/a ctuation nasal spray,suspension RxNorm: 5692666 [place] USE ONE SPRAY IN EACH NOSTRIL TWICE A DAY 06/04/2017 07/24/2017 Inactive montelukast 10 mg ta blet RxNorm: 752969 TAKE 1 TABLET DAILY 06/03/2017 05/28/2018 Inactive levothyroxine 25 mcg tablet RxNorm: 686727 TAKE 1 TABLET DAILY 05/13/2017 11/08/2017 Inactive Voltaren 1 % topical gel RxNorm: 381585 2 Gram(s) TOP QID 05/02/2017 2017 Inactive nystatin 100,000 uni t/mL oral suspension RxNorm: 799273 5 Milliliter(s) PO QI D 03/29/2017 04/11/2017 In active Diflucan 150 mg tablet RxNorm: 593686 1 Tablet(s) PO daily 03/29/2017 05/01/2017 Inactive Trulicity 1.5 mg/0.5 mL subcutaneous pen injector RxNorm: 2415708 INJECT 0.5ML SUBCUTANEOUSLY EVERY WEEK 02/28/2017 01/29/2018 Inactive levothyroxine 25 mcg tablet RxNorm: 599031 1 Tablet(s) PO daily 11/19/2016 11/18/2016 Inactive levothyroxine 25 mcg tablet RxNorm: 762779 1 Tablet(s) PO daily 11/19/2016 05/12/2017 Inactive Claritin 10 mg tablet RxNorm: 556349 1 Tablet(s) PO daily 11/07/2016 11/06/2016 Inactive Claritin 10 mg tablet RxNorm: 318237 1 Tablet(s) PO daily 11/07/2016 12/06/2016 Inactive Zithromax Z-Ankit 250 mg tablet RxNorm: 443472 1 Tablet(s) PO UD 11/07/2016 05/01/2017 Inactive oxazepam 10 mg capsule RxNorm: 447888 1 Capsule(s) PO TID as needed anxiety 11/01/2016 12/30/2016 In active Nexium 40 mg capsule ,delayed release RxNorm: 095645 1 Capsule(s) PO BID 10/25/2016 10/19/2017 In active Claritin-D 12 Hour 5 mg-120 mg tablet,extended release RxNorm: 9223839 Tablet(s) TAKE ONE (1) TABLET BY MOUTH TWICE DAILY 10/25/2016 12/23/2016 Inactive mesalamine 800 mg ta blet,delayed release RxNorm: 975074 1 Tablet(s) PO BID 09/18/2016 09/17/2016 In active mesalamine 800 mg ta blet,delayed release RxNorm: 905503 1 Tablet(s) PO BID 09/18/2016 06/14/2017 In active Effexor XR 75 mg cap alam,extended release RxNorm: 545628 1 Capsule(s) PO daily 08/30/2016 08/24/2017 In active metformin 500 mg tablet RxNorm: 275000 1 Tablet(s) PO BID 08/17/2016 08/11/2017 Inactive oxazepam 10 mg capsule RxNorm: 214268 1 Capsule(s) PO TID as needed anxiety 08/17/2016 10/15/2016 In active Claritin-D 12 Hour 5 mg-120 mg tablet,extended release RxNorm: 4046975 TAKE ONE (1) TABLET BY MOUTH TWICE DAILY... 08/16/2016 10/24/2016 Inactive furosemide 40 mg tablet RxNorm: 475326 1 Tablet(s) daily TAKE 1 TABLET DAILY 08/14/2016 08/08/2017 In active Effexor XR 75 mg cap alma,extended release RxNorm: 577026 1 Capsule(s) PO daily 08/14/2016 08/29/2016 In active pilocarpine 5 mg tablet RxNorm: 1235103 4 Tablet(s) PO daily TAKE 4 TABLETS YARI Y 08/14/2016 08/08/2017 In active metoclopramide 5 mg tablet RxNorm: 462424 1/2 to 1 Tablet(s) PO TID for nause and GI dysmotility 07/02/2016 11/14/2016 Inactive Effexor XR 75 mg cap alma,extended release RxNorm: 490306 1 Capsule(s) PO daily 07/02/2016 08/13/2016 In active metformin 500 mg tablet RxNorm: 920798 1/2 TABLET(S) PO BID X2 WEEKS THEN INCRE ASE TO 1 TABLET PO BID THEREAFTER 06/26/2016 08/16/2016 Inactive 30 day supply Claritin-D 12 Hour 5 mg-120 mg tablet,extended release RxNorm: 5592920 1 Tablet(s) PO BID 06/18/2016 08/15/2016 Inactive montelukast 10 mg ta blet RxNorm: 024600 1 Tablet(s) PO daily 06/13/2016 06/02/2017 Inactive metformin 500 mg tablet RxNorm: 660846 1/2 Tablet(s) PO BID x2 weeks then incre ase to 1 Tablet PO BID thereafter 06/07/2016 06/06/2016 Inactive 30 day supply metformin 500 mg tablet RxNorm: 922168 1/2 Tablet(s) PO BID x2 weeks then incre ase to 1 Tablet PO BID thereafter 06/07/2016 06/25/2016 Inactive 30 day supply Diflucan 150 mg tablet RxNorm: 408305 1 Tablet(s) PO daily 03/27/2016 04/02/2016 Inactive nystatin 100,000 uni t/mL oral suspension RxNorm: 612685 5 Milliliter(s) PO QI D 03/27/2016 04/05/2016 In active nystatin 100,000 uni t/mL oral suspension RxNorm: 113573 5 Milliliter(s) PO QI D 03/27/2016 03/26/2016 In active Diflucan 150 mg tablet RxNorm: 467198 1 Tablet(s) PO daily 03/27/2016 03/26/2016 Inactive Effexor XR 75 mg cap alma,extended release RxNorm: 284681 1 Capsule(s) PO daily 03/26/2016 07/01/2016 In active this replaces the 150mg dose - we are we aning down her dose Trulicity 1.5 mg/0.5 mL subcutaneous pen injector RxNorm: 1830618 0.5 Milliliter(s) SQ QW 03/26/2016 02/27/2017 Inactive Trulicity 0.75 mg/0. 5 mL subcutaneous pen injector RxNorm: 2842919 1 injection SQ QW 03/13/2016 06/03/2016 Inactive Trulicity 0.75 mg/0. 5 mL subcutaneous pen injector RxNorm: 7260450 1/2 Milliliter(s) SQ QW 03/13/2016 03/12/2016 Inactive glyburide 2.5 mg tablet RxNorm: 810822 1/2 Tablet(s) PO BID 03/13/2016 03/25/2016 Inactive glyburide 2.5 mg tablet RxNorm: 705828 1/2 Tablet(s) PO BID 03/13/2016 03/12/2016 Inactive Claritin-D 12 Hour 5 mg-120 mg tablet,extended release RxNorm: 6682499 1 Tablet(s) PO BID 02/03/2016 10/24/2016 Inactive Synthroid 25 mcg tablet RxNorm: 173763 1 Tablet(s) PO daily 01/23/2016 11/18/2016 Inactive Synthroid 25 mcg tablet RxNorm: 263429 1 Tablet(s) PO daily 01/23/2016 01/22/2016 Inactive Claritin-D 12 Hour 5 mg-120 mg tablet,extended release RxNorm: 8578689 1 Tablet(s) PO BID 12/05/2015 05/31/2016 Inactive Effexor XR 150 mg ca psule,extended release RxNorm: 983493 TAKE 1 CAPSULE DAILY 12/05/2015 03/25/2016 In active Bydureon 2 mg/0.65 m L subcutaneous pen injector RxNorm: 9733677 2 Milligram(s) SQ QW 10/14/2015 03/12/2016 Inactive oxazepam 10 mg capsule RxNorm: 599410 1 Capsule(s) PO TID PRN as needed anxiet y 10/14/2015 04/10/2016 In active Nexium 40 mg capsule ,delayed release RxNorm: 200989 1 Capsule(s) BID TAKE 1 CAPSULE DAILY 10/14/2015 10/07/2016 Inactive this is a new RX - fill the twice daily dose instead of once daily dose Effexor XR 150 mg ca psule,extended release RxNorm: 068751 1 Capsule(s) PO daily TAKE 1 CAPSULE DAILY 10/03/2015 03/25/2016 Inactive pilocarpine 5 mg tablet RxNorm: 4580177 4 Tablet(s) PO daily TAKE 4 TABLETS YARI Y 08/09/2015 02/04/2016 In active pilocarpine 5 mg tablet RxNorm: 8738353 4 Tablet(s) PO daily TAKE 4 TABLETS YARI Y 07/26/2015 08/08/2015 In active Claritin-D 12 Hour 5 mg-120 mg tablet,extended release RxNorm: 9740405 1 Tablet(s) PO BID 05/02/2015 10/24/2016 Inactive furosemide 40 mg tablet RxNorm: 318744 1 Tablet(s) daily TAKE 1 TABLET DAILY 03/31/2015 03/24/2016 In active Nexium 40 mg capsule ,delayed release RxNorm: 261660 1 Capsule(s) BID TAKE 1 CAPSULE DAILY 03/31/2015 10/13/2015 Inactive this is a new RX - fill the twice daily dose instead of once daily dose Nexium 40 mg capsule ,delayed release RxNorm: 242263 1 Capsule(s) daily TA KE 1 CAPSULE DAILY 03/31/2015 03/30/2015 Inactive montelukast 10 mg ta blet RxNorm: 422162 1 Tablet(s) PO daily 03/31/2015 03/24/2016 Inactive Synthroid 25 mcg tablet RxNorm: 916588 1 Tablet(s) PO daily 01/17/2015 01/11/2016 Inactive Synthroid 25 mcg tablet RxNorm: 236099 1 Tablet(s) PO daily 01/03/2015 01/16/2015 Inactive Claritin-D 12 Hour 5 mg-120 mg tablet,extended release RxNorm: 4489293 1 Tablet(s) PO BID 12/29/2014 05/01/2015 Inactive Synthroid 25 mcg tablet RxNorm: 886833 1 Tablet(s) PO daily 12/20/2014 01/02/2015 Inactive Synthroid 25 mcg tablet RxNorm: 431573 1 Tablet(s) PO daily 12/07/2014 12/19/2014 Inactive Effexor XR 150 mg ca psule,extended release RxNorm: 420242 1 Capsule(s) PO daily TAKE 1 CAPSULE DAILY 11/30/2014 10/02/2015 Inactive Nexium 40 mg capsule ,delayed release RxNorm: 553806 Capsule(s) TAKE 1 CAP ALMA DAILY 11/30/2014 03/30/2015 In active fenofibric acid (cho line) 135 mg capsule,delayed release RxNorm: 573822 1 Capsule(s) PO daily 08/31/2014 08/25/2015 Inactive Bydureon 2 mg subcut aneous extended release suspension RxNorm: 8038600 1 injection SQ QW 07/21/2014 07/15/2015 Inactive fluticasone 50 mcg/a ctuation nasal spray,suspension RxNorm: 2234684 USE ONE SPRAY IN EACH NOSTRIL TWICE A DAY 07/06/2014 06/03/2017 Inactive Lipitor 10 mg tablet RxNorm: 202897 TAKE 1 TABLET AT BEDTIME 06/15/2014 10/13/2015 Inactive furosemide 40 mg tablet RxNorm: 585481 TAKE 1 TABLET DAILY 06/15/2014 03/30/2015 Inactive oxazepam 10 mg capsule RxNorm: 442637 1 Capsule(s) PO TID PRN as needed anxiet y 06/11/2014 12/07/2014 In active montelukast 10 mg ta blet RxNorm: 255612 1 Tablet(s) PO daily 05/25/2014 03/30/2015 Inactive oxazepam 10 mg capsule RxNorm: 536044 1 Capsule(s) PO TID PRN as needed anxiet y 05/06/2014 06/10/2014 In active montelukast 10 mg ta blet RxNorm: 127096 1 Tablet(s) PO daily 05/04/2014 05/24/2014 Inactive Nexium 40 mg capsule ,delayed release RxNorm: 002985 TAKE 1 CAPSULE DAILY 03/25/2014 11/29/2014 In active Nexium 40 mg capsule ,delayed release RxNorm: 303098 1 Capsule(s) PO daily TAKE 1 CAPSULE DAILY 03/02/2014 03/24/2014 Inactive oxazepam 10 mg capsule RxNorm: 419426 1 Capsule(s) PO TID PRN as needed 02/24/2014 04/24/2014 In active pilocarpine 5 mg tablet RxNorm: 6459935 TAKE 4 TABLETS DAILY 02/01/2014 07/25/2015 Inactive Claritin-D 12 Hour 5 mg-120 mg tablet,extended release RxNorm: 3051947 1 Tablet(s) PO BID 12/24/2013 10/24/2016 Inactive Effexor XR 150 mg ca psule,extended release RxNorm: 719486 1 Capsule(s) PO daily TAKE 1 CAPSULE DAILY 12/24/2013 11/29/2014 Inactive Klor-Con 10 mEq tabl et,extended release RxNorm: 728151 1 Tablet(s) PO daily 12/24/2013 10/13/2015 In active Bydureon 2 mg subcut aneous extended release suspension RxNorm: 9323537 1 injection SQ QW 12/07/2013 07/20/2014 Inactive Synthroid 25 mcg tablet RxNorm: 283254 1 Tablet(s) PO daily 12/02/2013 11/26/2014 Inactive Klor-Con 10 mEq tabl et,extended release RxNorm: 585018 1 Tablet(s) PO daily take 2 daily x 1 week then one daily thereafter 12/02/2013 12/23/2013 Inactive oxazepam 10 mg capsule RxNorm: 754437 1 Capsule(s) PO TID PRN 11/10/2013 01/08/2014 Inactive omeprazole 20 mg cap alma,delayed release RxNorm: 153405 1 Capsule(s) PO daily 11/10/2013 04/13/2014 In active Synthroid 50 mcg tablet RxNorm: 388291 Tablet(s) PO TAKE 1 TABLET DAILY 09/21/2013 12/01/2013 In active furosemide 40 mg tablet RxNorm: 686901 Tablet(s) PO TAKE 1 TABLET DAILY 09/21/2013 06/14/2014 In active Bydureon 2 mg subcut aneous extended release suspension RxNorm: 1058697 1 injection SQ QW 07/22/2013 12/06/2013 Inactive Bydureon 2 mg subcut aneous extended release suspension RxNorm: 5399244 1 injection SQ QW 07/14/2013 07/21/2013 Inactive Nexium 40 mg capsule ,delayed release RxNorm: 174232 Capsule(s) PO TAKE 1 CAPSULE DAILY 06/18/2013 11/09/2013 Inactive fluticasone 50 mcg/a ctuation nasal spray,suspension RxNorm: 941999 1 [place] NASAL BID 06/18/2013 07/05/2014 Inactive Lipitor 10 mg tablet RxNorm: 369293 Tablet(s) PO every other day 1 tablet qo d 06/18/2013 06/12/2014 In active losartan 25 mg tablet RxNorm: 544468 1 Tablet(s) PO daily 1 daily for blood p ressure 06/18/2013 10/15/2013 Inactive Toprol XL 25 mg tabl et,extended release RxNorm: 640066 1 Tablet(s) PO daily 06/18/2013 06/12/2014 In active Toprol XL 25 mg tabl et,extended release RxNorm: 868416 1 Tablet(s) PO daily 06/12/2013 06/17/2013 In active losartan 25 mg tablet RxNorm: 526940 1 Tablet(s) PO daily 1 daily for blood p ressure 06/12/2013 06/17/2013 Inactive Lipitor 10 mg tablet RxNorm: 546853 Tablet(s) PO every other day 1 tablet qo d 06/12/2013 06/17/2013 In active Effexor XR 150 mg ca psule,extended release RxNorm: 490425 1 Capsule(s) PO daily TAKE 1 CAPSULE DAILY 05/27/2013 12/23/2013 Inactive Bydureon 2 mg subcut aneous extended release suspension RxNorm: 4937446 1 injection SQ QW 05/20/2013 07/13/2013 Inactive Lipitor 10 mg tablet RxNorm: 788019 Tablet(s) PO every other day 1 tablet qo d 05/20/2013 06/11/2013 In active Pen Needle 32 x 5/32" RxNorm: Miscellaneous use with byetta pen 05/07/2013 09/03/2013 Inactive Effexor XR 150 mg ca psule,extended release RxNorm: 674611 1 Capsule(s) PO daily TAKE 1 CAPSULE DAILY 05/07/2013 05/26/2013 Inactive Pen Needle 32 x 5/32" RxNorm: Miscellaneous use with byetta pen 05/06/2013 05/06/2013 Inactive Pen Needle 32 x 5/32" RxNorm: Miscellaneous use with byetta pen 05/06/2013 05/05/2013 Inactive Byetta 5 mcg/0.02 mL per dose Sub-Q Pen Injector RxNorm: 961571 1 Unit Dose SQ BID 04/29/2013 05/19/2013 In active metformin ER 500 mg tablet,extended release 24 hr RxNorm: 867495 1 Tablet(s) PO BID 04/28/2013 06/19/2013 In active Byetta 5 mcg/0.02 mL per dose Sub-Q Pen Injector RxNorm: 732589 1 Unit Dose SQ BID 04/28/2013 04/27/2013 In active Byetta 5 mcg/0.02 mL per dose Sub-Q Pen Injector RxNorm: 900858 1 Unit Dose SQ BID 04/28/2013 04/28/2013 In active Influenza Virus Vacc ine 0.5 mL RxNorm: IM 04/27/2013 04/27/2013 Inactive glyburide 2.5 mg tablet RxNorm: 146153 1 Tablet(s) PO BID 04/27/2013 04/27/2013 Inactive glyburide 2.5 mg tablet RxNorm: 439608 1/2 Tablet(s) PO daily 04/13/2013 04/26/2013 Inactive glyburide 2.5 mg tablet RxNorm: 008551 1 Tablet(s) PO daily 04/09/2013 04/12/2013 Inactive metformin ER 500 mg tablet,extended release 24 hr RxNorm: 122965 2 Tablet(s) PO BID 04/09/2013 04/27/2013 In active Lipitor 10 mg tablet RxNorm: 221628 Tablet(s) PO TAKE 1 TABLET AT BEDTIME 03/17/2013 05/19/2013 In active losartan 25 mg tablet RxNorm: 577614 1 Tablet(s) PO daily 02/12/2013 06/11/2013 Inactive montelukast 10 mg ta blet RxNorm: 609750 1 Tablet(s) PO daily 02/09/2013 02/08/2013 Inactive montelukast 10 mg ta blet RxNorm: 233612 1 Tablet(s) PO daily 02/09/2013 02/03/2014 Inactive losartan 25 mg tablet RxNorm: 966432 1 Tablet(s) PO daily 02/09/2013 02/11/2013 Inactive losartan 25 mg tablet RxNorm: 854625 1 Tablet(s) PO daily 01/26/2013 02/08/2013 Inactive Effexor XR 150 mg ca psule,extended release RxNorm: 682044 Capsule(s) PO TAKE 1 CAPSULE DAILY 12/24/2012 05/06/2013 Inactive metformin ER 500 mg tablet,extended release 24 hr RxNorm: 110137 Tablet(s) PO TAKE 2 TABLETS TWICE A DAY 12/24/2012 04/08/2013 Inactive pilocarpine 5 mg tablet RxNorm: 5254002 Tablet(s) PO TAKE 4 TABLETS DAILY 12/24/2012 01/31/2014 In active levofloxacin 500 mg tablet RxNorm: 942008 1 Tablet(s) PO daily 12/15/2012 12/19/2012 Inactive Nexium 40 mg capsule ,delayed release RxNorm: 039159 Capsule(s) PO daily T MILO 1 CAPSULE DAILY 11/03/2012 06/17/2013 Inactive Claritin-D 12 Hour 5 mg-120 mg tablet,extended release RxNorm: 8040552 1 Tablet(s) PO BID 10/29/2012 10/23/2013 Inactive TAKE 1 TABLET BY MOUTH TWICE DAILY fluticasone 50 mcg/a ctuation nasal spray,suspension RxNorm: 3359808 1 [place] NASAL BID 10/08/2012 06/17/2013 Inactive Claritin-D 12 Hour 5 mg-120 mg tablet,extended release RxNorm: 1328756 1 Tablet(s) PO BID 09/09/2012 2012 Inactive TAKE 1 TABLET BY MOUTH TWICE DAILY montelukast 10 mg ta blet RxNorm: 333286 1 Tablet(s) PO daily 08/20/2012 02/08/2013 Inactive Synthroid 50 mcg tablet RxNorm: 246686 Tablet(s) PO TAKE 1 TABLET DAILY 08/18/2012 09/20/2013 In active Nexium 40 mg capsule ,delayed release RxNorm: 033660 Capsule(s) PO TAKE 1 CAPSULE DAILY 08/18/2012 11/02/2012 Inactive furosemide 40 mg tablet RxNorm: 156021 Tablet(s) PO TAKE 1 TABLET DAILY 08/18/2012 09/20/2013 In active Klor-Con 10 mEq tabl et,extended release RxNorm: 575931 Tablet(s) PO TAKE 1 T ABLET DAILY 08/18/2012 12/01/2013 Inactive Xanax 0.5 mg tablet RxNorm: 760567 1 Tablet(s) PO Q6 PRN 07/17/2012 10/13/2015 Inactive Zithromax 250 mg tablet RxNorm: 434190 Tablet(s) PO 07/14/2012 11/10/2013 Inactive disp one z ankit fluticasone 50 mcg/a ctuation Nasal [place], Susp RxNorm: 8697973 1 [place] NASAL BID 06/27/2012 10/07/2012 In active Anusol-HC 25 mg Supp ository RxNorm: 5920420 1 Suppository RTL QD AY PRN 06/09/2012 12/22/2018 In active daily x 3 days then prnno longer than 10 days in row use Claritin-D 12 Hour 5 mg-120 mg tablet,extended release RxNorm: 0416827 1 Tablet(s) PO BID 05/22/2012 05/22/2012 Inactive TAKE 1 TABLET BY MOUTH TWICE DAILY Claritin-D 12 Hour 5 mg-120 mg tablet,extended release RxNorm: 0531104 Tablet(s) PO 05/12/2012 05/21/2012 In active TAKE 1 TABLET BY MOUTH TWICE DAILY fluticasone 50 mcg/a ctuation Nasal [place], Susp RxNorm: 4146930 1 [place] NASAL BID 05/06/2012 06/26/2012 In active Rocephin 500 mg Solu tion for Injection RxNorm: 0356097 Inj 01/1802/12/2012 Inactive metronidazole 500 mg Tab RxNorm: 878280 1 Tablet(s) PO TID 02/12/2012 02/18/2012 Inactive Kenalog 40 mg/mL Elizabeth p for Injection RxNorm: 0574565 Milliliter(s) Inj 02/12/2012 02/12/2012 In active fluticasone 50 mcg/a ctuation Nasal [place], Susp RxNorm: 4546969 1 [place] NASAL BID 02/12/2012 05/05/2012 In active cefdinir 300 mg Cap RxNorm: 444488 1 Capsule(s) PO BID 02/12/2012 02/21/2012 Inactive Effexor XR 150 mg ca psule,extended release RxNorm: 183495 1 Capsule(s) PO daily 12/17/2011 12/10/2012 In active metformin ER 500 mg tablet,extended release 24 hr RxNorm: 100224 2 Tablet(s) PO BID 12/17/2011 05/14/2012 In active pilocarpine 5 mg tablet RxNorm: 9068210 4 Tablet(s) PO daily 12/17/2011 03/15/2012 Inactive Singulair 10 mg Tab RxNorm: 638213 1 Tablet(s) PO daily 11/27/2011 08/19/2012 Inactive Nexium 40 mg capsule ,delayed release RxNorm: 251912 1 Capsule(s) PO daily 11/26/2011 03/24/2012 In active Claritin-D 12 Hour 5 mg-120 mg tablet,extended release RxNorm: 9903427 1 Tablet(s) PO BID 11/14/2011 05/11/2012 Inactive Claritin-D 12 Hour 5 mg-120 mg Tab RxNorm: 3811243 1 Tablet(s) PO BID 10/31/2011 11/13/2011 In active Claritin-D 12 Hour 5 mg-120 mg Tab RxNorm: 9182278 1 Tablet(s) PO BID 10/29/2011 2011 In active Claritin-D 12 Hour 5 mg-120 mg Tab RxNorm: 2522301 1 Tablet(s) PO BID 10/29/2011 10/30/2011 In active Claritin-D 24 Hour 1 0 mg-240 mg Tab RxNorm: 9697626 1 Tablet(s) PO daily 10/23/2011 2011 In active levofloxacin 500 mg Tab RxNorm: 890978 1 Tablet(s) PO daily 08/28/2011 09/03/2011 Inactive Nasonex 50 mcg/actua tion [place] RxNorm: 008189 1 [place] NASAL BID 08/28/2011 11/25/2011 Inactive promethazine 25 mg/m L Injection RxNorm: 877094 1 Milliliter(s) Inj 08/23/2011 07/14/2013 Inactive glyburide 2.5 mg tablet RxNorm: 870904 1 Tablet(s) PO daily 08/23/2011 04/08/2013 Inactive Rocephin 500 mg Solu tion for Injection RxNorm: 8389523 1 Milliliter(s) Inj 08/23/2011 08/28/2011 In active Klor-Con 10 10 mEq t ablet,extended release RxNorm: 309834 1 Tablet(s) PO daily 08/06/2011 07/30/2012 In active Nexium 40 mg Capsule , delayed release RxNorm: 304493 1 Capsule(s) PO daily 08/06/2011 11/25/2011 In active furosemide 40 mg tablet RxNorm: 895619 1 Tablet(s) PO daily 08/06/2011 07/30/2012 Inactive Cymbalta 30 mg Cap RxNorm: 783655 1 Capsule(s) PO daily 07/26/2011 08/28/2011 Inactive Synthroid 50 mcg tablet RxNorm: 939540 Tablet(s) PO 06/21/2011 08/17/2012 Inactive TAKE 1 TABLET DAILY Neurontin 100 mg Cap RxNorm: 665167 2 Capsule(s) PO TID 06/19/2011 08/28/2011 Inactive ciprofloxacin 500 mg Tab RxNorm: 954827 1 Tablet(s) PO BID 06/19/2011 08/28/2011 Inactive Neurontin 100 mg Cap RxNorm: 064007 1 Capsule(s) PO QID 06/05/2011 06/18/2011 Inactive oxazepam 10 mg Cap RxNorm: 314987 1 Capsule(s) PO Q6 PRN 06/05/2011 10/02/2011 Inactive Influenza Virus Vacc ine 0.5 mL RxNorm: IM 06/05/2011 06/05/2011 Inactive hydrocodone-acetamin ophen 5 mg-500 mg Tab RxNorm: 406586 1 Tablet(s) PO Q6 PRN No Start Date Active Fish Oil 1,000 mg Cap RxNorm: 2 Capsule(s) PO BID No Start Date Active Zenpep 40,000-136,00 0-218,000 unit capsule,delayed release RxNorm: 7596555 1 Capsule(s) PO QID No Start Date Active Multiple Vitamins ch ewable tablet RxNorm: 1 Tablet(s) PO daily No Start Date Active mesalamine 4 gram/60 mL enema RxNorm: 159659 1 Milliliter(s) RTL d aily No Start Date Active aspirin 81 mg Cap, D elayed Release RxNorm: 444901 1 Capsule(s) PO daily No Start Date Active Vitamin B-12 1,000 m cg Tab RxNorm: 946247 2 Tablet(s) PO daily No Start Date Active Vitamin C With Darlyn Hips 1,000 mg Tab RxNorm: 705229 1 Tablet(s) PO daily No Start Date Active Lipitor 10 mg Tab RxNorm: 352954 1 Tablet(s) PO HS No Start Date 04/10/2011 Inactive EnteraGam 5 gram ora l powder packet RxNorm: 1 PO daily No S tart Date 12/22/2018 Inactive Lipitor 20 mg Tab RxNorm: 491652 1 Tablet(s) PO HS No Start Date 08/28/2011 Inactive Zithromax 250 mg tablet RxNorm: 924925 Tablet(s) PO No Start Date 07/13/2012 Inactive disp one z ankit Effexor XR 150 mg 24 hr Cap RxNorm: 910817 1 Capsule(s) PO daily No Start Date 12/16/2011 Inactive Bydureon 2 mg/0.65 m L subcutaneous pen injector RxNorm: 5713150 Milliliter(s) SQ QW No Start Date 10/13/2015 Inactive Centrum Ultra Women' s 18 mg-400 mcg Tab RxNorm: 1 Tablet(s) PO daily No Start Date 12/22/2018 Inactive furosemide 40 mg Tab RxNorm: 084155 1 Tablet(s) PO daily No Start Date 08/05/2011 Inactive Synthroid 25 mcg tablet RxNorm: 769643 1 Tablet(s) PO daily No Start Date 12/01/2013 Inactive Januvia 50 mg tablet RxNorm: 158251 1 Tablet(s) PO daily samples No Start Date 04/27/2013 Inactive Lipitor 10 mg tablet RxNorm: 826221 1 Tablet(s) PO daily No Start Date 03/16/2013 Inactive Crestor 10 mg tablet RxNorm: 435868 1 Tablet(s) PO QHS No Start Date 03/25/2016 Inactive Asacol HD 800 mg Tab RxNorm: 722689 2 Tablet(s) PO daily No Start Date 10/13/2015 Inactive pilocarpine 5 mg Tab RxNorm: 1219849 4 Tablet(s) PO daily No Start Date 12/16/2011 Inactive glyburide 2.5 mg Tab RxNorm: 847890 1 Tablet(s) PO BID No Start Date 08/22/2011 Inactive Claritin-D 24 Hour 1 0 mg-240 mg Tab RxNorm: 3863007 1 Tablet(s) PO daily No Start Date 10/22/2011 Inactive Vitamin D 1,000 unit Tab RxNorm: 257688 1 Tablet(s) PO daily No Start Date 10/13/2015 Inactive Tricor 145 mg Tab RxNorm: 557250 1 Tablet(s) PO daily No Start Date 10/14/2015 Inactive Zithromax Z-Ankit 250 mg tablet RxNorm: 543813 1 Tablet(s) PO UD No Start Date 11/06/2016 Inactive Synthroid 25 mcg tablet RxNorm: 000893 1 Tablet(s) PO daily No Start Date 05/01/2017 Inactive Claritin-D 12 Hour 5 mg-120 mg tablet,extended release RxNorm: 7924698 1 Tablet(s) PO BID No Start Date 12/23/2013 Inactive Singulair 10 mg Tab RxNorm: 560991 1 Tablet(s) PO daily No Start Date 11/26/2011 Inactive Linzess 290 mcg capsule RxNorm: 1294688 1 Capsule(s) PO daily No Start Date 12/22/2018 Inactive Calcium 600 + D(3) 6 00 mg (1,500)-200 unit Tab RxNorm: 597052 1 Tablet(s) PO daily No Start Date 10/13/2015 Inactive Lialda 1.2 gram tabl et,delayed release RxNorm: 341252 2 Tablet(s) PO daily No Start Date 09/17/2016 Inactive Effexor XR 150 mg 24 hr Cap RxNorm: 732560 1 Capsule(s) PO daily No Start Date 08/28/2011 Inactive aspirin 325 mg Tab RxNorm: 938353 1 Tablet(s) PO daily No Start Date 08/28/2011 Inactive Toprol XL 25 mg tabl et,extended release RxNorm: 794688 1 Tablet(s) PO daily No Start Date 06/11/2013 Inactive lisinopril 10 mg tablet RxNorm: 503842 1 Tablet(s) PO daily No Start Date 01/25/2013 Inactive Cymbalta 60 mg Cap RxNorm: 557884 1 Capsule(s) PO daily No Start Date 08/28/2011 Inactive Nexium 40 mg Cap RxNorm: 813880 1 Capsule(s) PO daily No Start Date 08/05/2011 Inactive dicyclomine 10 mg Cap RxNorm: 076347 1 Capsule(s) PO daily No Start Date 07/13/2013 Inactive Synthroid 50 mcg Tab RxNorm: 247512 1 Tablet(s) PO daily No Start Date 06/20/2011 Inactive metformin ER 500 mg 24 hr Tab RxNorm: 154267 2 Tablet(s) PO BID No Start Date 12/16/2011 Inactive Anusol-HC 25 mg Supp ository RxNorm: 4824889 1 Suppository RTL No Start Date 06/08/2012 Inactive daily x 3 days then prnno longer than 10 days in row use Medication Administered Medication Codes Instruc tions Start Date Status Kenalog 40 mg/mL suspension for injection RxNorm: 4446177 Milliliter 12/23/2018 No longer Active Kenalog 40 mg/mL suspension for injection RxNorm: 9390304 1Milliliter 05/26/2018 N o longer Active Influenza Virus Vaccine 0.5 mL RxNorm: 04/27/2013 No longer Active Rocephin 500 mg Solution for Injection RxNorm: 8585905 02/12/2012 No longer A ctive Kenalog 40 mg/mL Susp for Injection RxNorm: 3109031 Milliliter 02/12/2012 No longer Active Influenza Virus Vaccine 0.5 mL RxNorm: 06/05/2011 No longer Active Immunizations Vaccine Codes Date Status Influenza CVX: 141 05/02 completed Pneumococcal (Adult) CVX: 133 05/02/2017 completed Influenza CVX: 141 05/06 completed Influenza CVX: 141 04/27 completed Influenza CVX: 141 08/28 completed Influenza CVX: 141 06/05 completed Pneumococcal CVX: 33 completed Assessments Condition Codes Effectiv e Dates Benign paroxysmal vertigo, bilateral ICD-10: H81.13 ICD-9: [...] Reason For Visit Effective Dates Notes dizziness 02/10/2019 back pain 12/23/2018 cough 06/12/2018 [...] Code Item Item Code Result Date %Hba1C Gxv516 % HbA1c 00423-4 6.6 % 04/01/2018 %Hba1C Xsm425 Gluc Ave 143 mg/dL 04/01/2018 Lipid Ord30 CHOL 178 mg/dL 04/01/2018 Lipid Ord30 HDL 50.0 mg/dl 04/01/2018 Lipid Ord30 TRIG 221 mg/dL 04/01/2018 Lipid Ord30 LDL 84 mg/dL 04/01/2018 Lipid Ord30 C/HDL 3.6 Ratio 04/01/2018 %Hba1C Wvf373 % HbA1c 10324-1 6.7 % 11/25/2017 %Hba1C Gzf903 Gluc Ave 146 mg/dL 11/25/2017 Comp Metabolic Nni952 NA 144 mEq/L 04/30/2017 Comp Metabolic Hdh892 K 4.3 mEq/L 04/30/2017 Comp Metabolic Ysd578 CL 105 mEq/L 04/30/2017 Comp Metabolic Vgq247 CO2 29.0 mEq/L 04/30/2017 Comp Metabolic Jxs701 AN ION GAP 14 04/30/2017 Comp Metabolic Pmm354 GL UCOSE 109 mg/dL 04/30/2017 Comp Metabolic Axx597 Cr eat 1.0 mg/dL 04/30/2017 Comp Metabolic Obk434 eG FR 58 ml/min/1.73m2 04/30 Comp Metabolic Kla840 BUN 17 mg/dL 04/30/2017 Comp Metabolic Cuh551 B/ C Ratio 17.3 Ratio 04/30/2017 Comp Metabolic Ezy995 CA LCIUM 10.1 mg/dL 04/30/2017 Comp Metabolic Ljr435 AL K PHOS 47 U/L 04/30/2017 Comp Metabolic Duc161 T(SGOT) 16 U/L 04/30/2017 Comp Metabolic Uku837 AL T(SGPT) 16 U/L 04/30/2017 Comp Metabolic Edm678 BI LI T 0.4 mg/dL 04/30/2017 Comp Metabolic Kvo283 AL BUMIN 4.5 g/dL 04/30/2017 Comp Metabolic Cll381 TP RO 6.7 g/dL 04/30/2017 Comp Metabolic Kwh135 GL OB 2.2 g/dL 04/30/2017 Comp Metabolic Fro328 A/ G Ratio 2.0 Ratio 04/30/2017 Comp Metabolic Zhp048 Os mo 289 mOsmo 04/30/2017 Cbc With [...] 28.2 pg 04/30/2017 Cbc With Differential Ord2 [place]% 6.5 % 04/30/2017 Cbc With Differential Ord2 [...] 1.12 K/ul 04/30/2017 Cbc With Differential Ord2 [place] ABS# 0.2 K/ul 04/30/2017 Cbc With Differential Ord2 Eos ABS# 0.1 K/ul 04/30/2017 Cbc With Differential Ord2 Baso ABS# 0.0 K/ul 04/30/2017 %Hba1C Hpr351 % HbA1c 91469-2 6.7 % 04/30/2017 %Hba1C Efm864 Gluc Ave 146 mg/dL 04/30/2017 Tsh Ord6 hTSH II 1.36 uIU/mL 04/30/2017 Lipid Ord30 CHOL 160 mg/dL 04/30/2017 Lipid Ord30 HDL 51.0 mg/dl 04/30/2017 Lipid Ord30 TRIG 195 mg/dL 04/30/2017 Lipid Ord30 LDL 70 mg/dL 04/30/2017 Lipid Ord30 C/HDL 3.1 Ratio 04/30/2017 Free T4 Uos274 FREE T4 0.75 ng/dL 04/30/2017 Ferritin Ord22 FERRITIN 89.9 ng/mL 11/09/2016 Parathyroid Hormone Hdz233 PTH 36.20 pg/ml 11/09/2016 Tibc Ord40 Iron 75 ug/dl 11/08/2016 Tibc Ord40 UIBC 325 ug/dL 11/08/2016 Tibc Ord40 TIBC 400 ug/dL 11/08/2016 Tibc Ord40 Fe-%Sat 18.8 % 11/08/2016 Comp Metabolic Cyc094 NA 139 mEq/L 09/25/2016 Comp Metabolic Cpk881 K 4.3 mEq/L 09/25/2016 Comp Metabolic Jxt616 CL 101 mEq/L 09/25/2016 Comp Metabolic Zgt320 CO2 31.0 mEq/L 09/25/2016 Comp Metabolic Fbx457 AN ION GAP 11 09/25/2016 Comp Metabolic Xuq072 GL UCOSE 116 mg/dL 09/25/2016 Comp Metabolic Yth120 Cr eat 1.1 mg/dL 09/25/2016 Comp Metabolic Qoh797 eG FR 53 ml/min/1.73m2 09/25 Comp Metabolic Hpi499 BUN 22 mg/dL 09/25/2016 Comp Metabolic Ath575 B/ C Ratio 20.8 Ratio 09/25/2016 Comp Metabolic Ntj790 CA LCIUM 10.3 mg/dL 09/25/2016 Comp Metabolic Dez589 AL K PHOS 52 U/L 09/25/2016 Comp Metabolic Bva240 T(SGOT) 16 U/L 09/25/2016 Comp Metabolic Qbn948 AL T(SGPT) 17 U/L 09/25/2016 Comp Metabolic Xxu390 BI LI T 0.3 mg/dL 09/25/2016 Comp Metabolic Hbe785 AL BUMIN 4.7 g/dL 09/25/2016 Comp Metabolic Fjl405 TP RO 6.9 g/dL 09/25/2016 Comp Metabolic Eja007 GL OB 2.2 g/dL 09/25/2016 Comp Metabolic Uid090 A/ G Ratio 2.1 Ratio 09/25/2016 Comp Metabolic Psj479 Os mo 282 mOsmo 09/25/2016 Lipid Ord30 CHOL 182 mg/dL 09/25/2016 Lipid Ord30 HDL 55.0 mg/dl 09/25/2016 Lipid Ord30 TRIG 168 mg/dL 09/25/2016 Lipid Ord30 LDL 93 mg/dL 09/25/2016 Lipid Ord30 C/HDL 3.3 Ratio 09/25/2016 %Hba1C Oiw413 % HbA1c 27218-0 7.0 % 09/25/2016 %Hba1C Ouo192 Gluc Ave 154 mg/dL 09/25/2016 Free T4 Jfe751 FREE T4 0.80 ng/dL 09/25/2016 Cbc With [...] 28.3 pg 09/25/2016 Cbc With Differential Ord2 [place]% 8.2 % 09/25/2016 Cbc With Differential Ord2 [...] 1.29 K/ul 09/25/2016 Cbc With Differential Ord2 [place] ABS# 0.3 K/ul 09/25/2016 Cbc With Differential Ord2 Eos ABS# 0.0 K/ul 09/25/2016 Cbc With Differential Ord2 Baso ABS# 0.0 K/ul 09/25/2016 Tsh Ord6 hTSH II 1.01 uIU/mL 09/25/2016 Tsh Ord6 hTSH II 1.35 uIU/mL 06/04/2016 Comp Metabolic Tjy333 NA 135 mEq/L 06/04/2016 Comp Metabolic Xuy877 K 3.8 mEq/L 06/04/2016 Comp Metabolic Gjq235 CL 99 mEq/L 06/04/2016 Comp Metabolic Iae211 CO2 30.0 mEq/L 06/04/2016 Comp Metabolic Wpt065 AN ION GAP 10 06/04/2016 Comp Metabolic Dpo293 GL UCOSE 171 mg/dL 06/04/2016 Comp Metabolic Eqs277 Cr eat 1.0 mg/dL 06/04/2016 Comp Metabolic Rpb550 eG FR 59 ml/min/1.73m2 06/04 Comp Metabolic Div681 BUN 22 mg/dL 06/04/2016 Comp Metabolic Ldr163 B/ C Ratio 22.4 Ratio 06/04/2016 Comp Metabolic Eqh407 CA LCIUM 10.4 mg/dL 06/04/2016 Comp Metabolic Ygz525 AL K PHOS 68 U/L 06/04/2016 Comp Metabolic Zat797 T(SGOT) 22 U/L 06/04/2016 Comp Metabolic Otg672 AL T(SGPT) 25 U/L 06/04/2016 Comp Metabolic Nam067 BI LI T 0.4 mg/dL 06/04/2016 Comp Metabolic Liy228 AL BUMIN 4.5 g/dL 06/04/2016 Comp Metabolic Qzh836 TP RO 7.0 g/dL 06/04/2016 Comp Metabolic Yqq702 GL OB 2.5 g/dL 06/04/2016 Comp Metabolic Tjo987 A/ G Ratio 1.8 Ratio 06/04/2016 Comp Metabolic Lkg120 Os mo 277 mOsmo 06/04/2016 Cbc With [...] 29.1 pg 06/04/2016 Cbc With Differential Ord2 [place]% 7.9 % 06/04/2016 Cbc With Differential Ord2 [...] 1.58 K/ul 06/04/2016 Cbc With Differential Ord2 [place] ABS# 0.5 K/ul 06/04/2016 Cbc With Differential Ord2 Eos ABS# 0.1 K/ul 06/04/2016 Cbc With Differential Ord2 Baso ABS# 0.1 K/ul 06/04/2016 %Hba1C Uhu701 % HbA1c 46714-4 8.7 % 06/04/2016 %Hba1C Snr872 Gluc Ave 203 mg/dL 06/04/2016 Free T4 Bqy138 FREE T4 0.84 ng/dL 06/04/2016 Lipid Ord30 CHOL 111 mg/dL 06/04/2016 Lipid Ord30 HDL 51.0 mg/dl 06/04/2016 Lipid Ord30 TRIG 185 mg/dL 06/04/2016 Lipid Ord30 LDL 23 mg/dL 06/04/2016 Lipid Ord30 C/HDL 2.2 Ratio 06/04/2016 Microalbumin Ndk384 Micr oAlb <0.7 mg/dL 06/04/2016 Comp Metabolic Sjn275 NA 142 mEq/L 03/12/2016 Comp Metabolic Tcg629 K 4.1 mEq/L 03/12/2016 Comp Metabolic Bhh409 CL 103 mEq/L 03/12/2016 Comp Metabolic Lsq603 CO2 30.0 mEq/L 03/12/2016 Comp Metabolic Bza871 AN ION GAP 13 03/12/2016 Comp Metabolic Wub135 GL UCOSE 138 mg/dL 03/12/2016 Comp Metabolic Czi725 Cr eat 0.8 mg/dL 03/12/2016 Comp Metabolic Hhy122 eG FR 75 ml/min/1.73m2 03/12 Comp Metabolic Qre665 BUN 18 mg/dL 03/12/2016 Comp Metabolic Itj664 B/ C Ratio 22.8 Ratio 03/12/2016 Comp Metabolic Xtw469 CA LCIUM 9.8 mg/dL 03/12/2016 Comp Metabolic Zqy679 AL K PHOS 83 U/L 03/12/2016 Comp Metabolic Nmz633 T(SGOT) 15 U/L 03/12/2016 Comp Metabolic Ozs235 AL T(SGPT) 20 U/L 03/12/2016 Comp Metabolic Hmz284 BI LI T 0.4 mg/dL 03/12/2016 Comp Metabolic Hfq652 AL BUMIN 4.2 g/dL 03/12/2016 Comp Metabolic Fvj524 TP RO 6.4 g/dL 03/12/2016 Comp Metabolic Fui177 GL OB 2.2 g/dL 03/12/2016 Comp Metabolic Hmn104 A/ G Ratio 1.9 Ratio 03/12/2016 Comp Metabolic Kzt518 Os mo 287 mOsmo 03/12/2016 %Hba1C Iks708 % HbA1c 87703-5 7.2 % 03/12/2016 %Hba1C Mnn556 Gluc Ave 160 mg/dL 03/12/2016 Comp Metabolic Hph703 NA 138 mEq/L 10/18/2015 Comp Metabolic Ayw982 K 4.1 mEq/L 10/18/2015 Comp Metabolic Kcn441 CL 97 mEq/L 10/18/2015 Comp Metabolic Lvl694 CO2 32.0 mEq/L 10/18/2015 Comp Metabolic Sln286 AN ION GAP 13 10/18/2015 Comp Metabolic Gxj642 GL UCOSE 145 mg/dL 10/18/2015 Comp Metabolic Ito530 Cr eat 1.1 mg/dL 10/18/2015 Comp Metabolic Kil619 eG FR 50 ml/min/1.73m2 10/17 Comp Metabolic Puz741 BUN 23 mg/dL 10/18/2015 Comp Metabolic Gcg340 B/ C Ratio 20.4 Ratio 10/18/2015 Comp Metabolic Sny752 CA LCIUM 10.3 mg/dL 10/18/2015 Comp Metabolic Wzh623 AL K PHOS 59 U/L 10/18/2015 Comp Metabolic Lwp300 T(SGOT) 17 U/L 10/18/2015 Comp Metabolic Jar895 AL T(SGPT) 21 U/L 10/18/2015 Comp Metabolic Bsv460 BI LI T 0.4 mg/dL 10/18/2015 Comp Metabolic Uhu606 AL BUMIN 4.6 g/dL 10/18/2015 Comp Metabolic Sex939 TP RO 7.1 g/dL 10/18/2015 Comp Metabolic Xfp120 GL OB 2.5 g/dL 10/18/2015 Comp Metabolic Rkt944 A/ G Ratio 1.9 Ratio 10/18/2015 Comp Metabolic Vts760 Os mo 282 mOsmo 10/18/2015 Tsh Ord6 hTSH II 1.81 uIU/mL 10/18/2015 %Hba1C Tfj249 % HbA1c 60222-7 7.3 % 10/18/2015 %Hba1C Unn824 Gluc Ave 163 mg/dL 10/18/2015 Iron Ord72 Iron 90 ug/dl 10/18/2015 Free T4 Vtr612 FREE T4 0.75 ng/dL 10/18/2015 Cbc With [...] 29.0 pg 10/18/2015 Cbc With Differential Ord2 [place]% 6.8 % 10/18/2015 Cbc With Differential Ord2 [...] 1.93 K/ul 10/18/2015 Cbc With Differential Ord2 [place] ABS# 0.5 K/ul 10/18/2015 Cbc With Differential [...] Lipid Ord30 C/HDL 2.3 Ratio 10/18/2015 TSH 6494005 TSH 1.042 uIU/ML 12/24/2012 A1C HPLC 4738845 A1C HPLC 45759-4 7.6 % 12/24/2012 ESR 0307934 ESR 2 MM/HR 12/23/2012 CHEM 14 0195513 AST 20 U/L 12/23/2012 CHEM 14 0143162 ALT 24 IU/L 12/23/2012 CHEM 14 1940421 BUN 16 MG/DL 12/23/2012 CHEM 14 7455967 ALBUMIN 4.7 GM/DL 12/23/2012 CHEM 14 4273612 CHLORIDE 102 MMOL/L 12/23/2012 CHEM 14 7332652 BILI TOT 0.3 MG/DL 12/23/2012 CHEM 14 8031798 ALK PHOS 109 U/L 12/23/2012 CHEM 14 5765012 SODIUM 142 MMOL/L 12/23/2012 CHEM 14 4035236 CREATINI NE 0.93 MG/DL 12/23/2012 CHEM 14 0792469 CALCIUM 10.0 MG/DL 12/23/2012 CHEM 14 9906672 POTASSIUM 3.7 MMOL/L 12/23/2012 CHEM 14 9247293 PROT TOT 7.2 GM/DL 12/23/2012 CHEM 14 1280358 GLUCOSE 116 MG/DL 12/23/2012 CHEM 14 7182019 BICARB 32 MMOL/L 12/23/2012 CHEM 14 8769267 ANION GAP 8 MEQ/L 12/23/2012 GFR CALC 3807786 GFR AA >60 ML/MIN 12/23/2012 GFR CALC GFR NON -AA 59.0L ML/MIN 3 CBC 3299477 WBC 5.5 10e9/L 12/23/2012 CBC 7559917 RBC 4.90 10e12/L 12/23/2012 CBC 5474500 HGB 14.1 g/dL 12/23/2012 CBC 0726341 HCT DET 42.4 % 12/23/2012 CBC 7101167 MCV 86.5 fL 12/23/2012 CBC 9773567 MCH 28.8 pg 12/23/2012 CBC 4819663 MCHC 33.3 g/dL 12/23/2012 CBC 9453580 PLT 320 10e9/L 12/23/2012 CBC 3173598 MPV 9.9 fL 12/23/2012 CBC 4590070 BRANDIE % 63.7 % 12/23/2012 CBC 3747208 LY % 24.6 % 12/23/2012 CBC 9536686 MON % 6.3 % 12/23/2012 CBC 6637735 EOS % 4.7 % 12/23/2012 CBC 9786091 BASO % 0.7 % 12/23/2012 CBC 3196154 RDW 15.0 % 12/23/2012 CBC 9446848 ABS BRANDIE 3.50 10e9/L 12/23/2012 CBC 7860440 ABS LYMPH 1.35 10e9/L 12/23/2012 CBC 6348364 ABS MONO 0.35 10e9/L 12/23/2012 CBC 4675216 ABS EOS 0.26 10e9/L 12/23/2012 CBC 1053022 ABS BASO 0.04 10e9/L 12/23/2012 CBC 4660068 RDW-SD 47.1 fL 12/23/2012 CRP 0943892 CRP 0.1 MG/DL 12/23/2012 URINALYSIS NONAUTO W/O SCOPE 37486 Specific Bailey 1.005 DateTime(Free Text in Aprima) URINALYSIS NONAUTO W/O SCOPE 59580 PH 7.5 DateTime(Free Mina t in Apr) URINALYSIS NONAUTO W/O SCOPE 21981 GLUCOSE NEG DateTime(Free Mina t in Aprima) URINALYSIS NONAUTO W/O SCOPE 34479 Protein NEG DateTime(Free Mina t in Aprima) URINALYSIS NONAUTO W/O SCOPE 41656 Blood NEG DateTime(Free Mina t in Aprima) URINALYSIS NONAUTO W/O SCOPE 75726 Bilirubin NEG DateTime(Free Mina t in Aprima) URINALYSIS NONAUTO W/O SCOPE 10073 Ketones NEG DateTime(Free Mina t in Apr) URINALYSIS NONAUTO W/O SCOPE 36794 Urobilinogen NEG DateTime(Free Text in Apr[employer]) URINALYSIS NONAUTO W/O SCOPE 01371 Nitrite NEG DateTime(Free Mina t in Apr) URINALYSIS NONAUTO W/O SCOPE 24641 Leukocytes NEG DateTime(Free Text in ) Review of Systems System Result Effective Dates Constitutional recent illness 02/10/2019 Constitutional No chills [...] 01/2016 Neurologic No dizziness 11/23/2015 Neurologic headache 01/2016 Neurologic No pain, facial 11/23/2015 Neurologic neck pain 01/2016 Neurologic No syncope Psychiatric anxiety 01/2016 Psychiatric depression 0 11/23/2015 Endocrine diabetes [...] Result Effective Dates Notes Full Exam - ENT Constitutional general appearance [...] sounds 11/10/2013 None Full Exam - General 1995 Musculoskeletal [...] clear 07/14/2013 None Full Exam - General 1995 Ears/Nose/Throat oral cavity/pharynx/larynx Overall: no masses 07/14/2013 [...] 1995 Ears/Nose/Throat oral cavity/pharynx/larynx Overall: no masses 06/12/2013 [...] affect 05/20/2013 None Full Exam - General 1995 Constitutional general appearance Overall: well developed 04/09/2013 None Full Exam - General 1995 Constitutional [...] sounds 04/09/2013 None Full Exam - General 1995 [...] rate 01/26/2013 None Full Exam - General 1995 Cardiovascular [...] unsteadiness 01/26/2013 None Full Exam - General 1995 Psychiatric orientation/consciousness Overall: oriented to person, place and time 01/26/2013 None Full Exam - General 1995 Psychiatric [...] sounds 12/15/2012 None Full Exam - General 1994 Cardiovascular auscultation of heart Overall: no murmurs 12/15/2012 None Full Exam - General 1994 Lymphatic neck nodes Overall: shotty lymphadenopathy 12/15/2012 None Full Exam - General 1994 Musculoskeletal [...] retractions 10/22/2012 None Full Exam - General 1994 Respiratory respiratory effort/rhythm Overall: normal rate 10/22/2012 [...] tenderness 10/22/2012 None Full Exam - General 1994 [...] time 10/22/2012 None Full Exam - General 1995 Psychiatric mood and affect Overall: normal mood and affect 10/22/2012 None Full Exam - General 1995 Constitutional general appearance Overall: well developed 08/21/2012 [...] atraumatic 08/21/2012 None Full Exam - General 1995 Musculoskeletal head and neck Overall: cervical spine benign 08/21/2012 None Full Exam - General 1994 Neurologic deep tendon reflexes Overall: deep tendon reflexes intact 08/21/2012 None Full Exam - General 1994 Neurologic gait Overall: no ataxia, no unsteadiness 08/21/2012 None Full Exam - General 1995 Psychiatric orientation/consciousness Overall: oriented to person, place and time 08/21/2012 None Full Exam - General 1994 Psychiatric mood and affect Overall: normal mood and affect 08/21/2012 None Full Exam - General 1995 Constitutional general appearance Overall: well nourished 07/17/2012 None Full Exam - General 1995 Constitutional general appearance Overall: well developed 07/17/2012 None Full Exam - General 1994 Constitutional general appearance Overall: in no acute distress 07/17/2012 None Full Exam - General 1994 Eyes pupils and irises Overall: pupils equal, round, reactive to light and accomodation 07/17/2012 None Full Exam - General 1994 Ears/Nose/Throat otoscopic exam Overall: external auditory canals clear 07/17/2012 None Full Exam - General 1995 Ears/Nose/Throat otoscopic exam Overall: tympanic membranes clear 07/17/2012 None Full Exam - General 1995 Ears/Nose/Throat oral cavity/pharynx/larynx Overall: oral mucosa clear 07/17/2012 None Full Exam - General 1995 Ears/Nose/Throat oral cavity/pharynx/larynx Overall: oropharyngeal mucosa clear 07/17/2012 None Full Exam - General 1995 Ears/Nose/Throat oral cavity/pharynx/larynx Overall: no masses 07/17/2012 [...] 1994 Ears/Nose/Throat oral cavity/pharynx/larynx Overall: no masses 02/12/2012 [...] clear 02/05/2012 None Full Exam - General 1995 Ears/Nose/Throat oral cavity/pharynx/larynx Overall: oropharyngeal mucosa clear 02/05/2012 None Full Exam - General 1995 Ears/Nose/Throat oral cavity/pharynx/larynx Overall: no masses 02/05/2012 [...] developed 08/28/2011 None Full Exam - General 1994 Constitutional general appearance Overall: in no acute distress 08/28/2011 None Full Exam - General 1994 Eyes pupils and irises Overall: pupils equal, round, reactive to light and accomodation 08/28/2011 None Full Exam - General 1994 Ears/Nose/Throat otoscopic exam External auditory canal: complete cerumen impaction 08/28/2011 None Full Exam - General 1994 Ears/Nose/Throat otoscopic exam Tympanic membrane: not visualized 08/28/2011 due to cerumen impaction Full Exam - General 1994 Ears/Nose/Throat oral cavity/pharynx/larynx Overall: oral mucosa clear 08/28/2011 None Full Exam - General 1994 Ears/Nose/Throat oral cavity/pharynx/larynx Overall: oropharyngeal mucosa clear 08/28/2011 None Full Exam - General 1994 Ears/Nose/Throat oral cavity/pharynx/larynx Overall: no masses 08/28/2011 None Full Exam - General 1994 Respiratory auscultation Overall: breath sounds clear bilaterally 08/28/2011 None Full Exam - General 1995 Respiratory respiratory effort/rhythm Overall: no retractions 08/28/2011 [...] clubbing 08/28/2011 None Full Exam - General 1995 Lymphatic neck nodes Overall: shotty lymphadenopathy 08/28/2011 [...] developed 08/23/2011 None Full Exam - General 1995 [...] Procedure Codes Date THER/PROPH/DIAG INJ SC/IM CPT-4: 32457 12/23/2018 TRIAMCINOLONE ACET I [place] NOS CPT-4: J3301 12/23/2018 THER/PROPH/DIAG INJ SC/IM CPT-4: 12336 05/26/2018 TRIAMCINOLONE ACET I [place] NOS CPT-4: J3301 05/26/2018 FLU VAC NO PRSV 4 VA L 3 YRS+ CPT-4: 32944 05/02/2017 ADMIN INFLUENZA VIRU S VAC CPT-4: G0008 05/02/2017 ADMIN PNEUMOCOCCAL V ACCINE SNOMED CT: 60343131 CPT-4: G0009 05/02/2017 PNEUMOCOCCAL VACC [address]: 28559666 CPT-4: 90085 05/02/2017 FLU VAC NO PRSV 4 VA L 3 YRS+ CPT-4: 52493 05/06/2014 ADMIN PNEUMOCOCCAL V ACCINE SNOMED CT: 52248068 CPT-4: G0009 05/06/2014 PRESCRIP TRANSMIT A ERX SY CPT-4: G8553 06/12/2013 PRESCRIP TRANSMIT A ERX SY CPT-4: G8553 05/20/2013 ADMIN INFLUENZA VIRU S VAC CPT-4: G0008 04/27/2013 FLULAVAL VACC, 3 YRS & >, IM CPT-4: Q2036 04/27/2013 PRESCRIP TRANSMIT A ERX SY CPT-4: G8553 04/09/2013 PRESCRIP TRANSMIT A ERX SY CPT-4: G8553 01/26/2013 ROUTINE VENIPUNCTURE CPT-4: 08138 12/23/2012 PRESCRIP TRANSMIT A ERX SY CPT-4: G8553 06/09/2012 ROCEPHIN, PER 250 MG CPT-4: J0696 02/12/2012 TRIAMCINOLONE ACET I [place] NOS CPT-4: J3301 02/12/2012 PRESCRIP TRANSMIT A ERX SY CPT-4: G8553 02/12/2012 ROCEPHIN, PER 250 MG CPT-4: J0696 02/05/2012 URINALYSIS NONAUTO W /O SCOPE CPT-4: 14011 11/14/2011 REMOVE IMPACTED EAR WAX UNI CPT-4: 24926 08/28/2011 PRESCRIP TRANSMIT A ERX SY CPT-4: G8553 08/28/2011 ROCEPHIN, PER 250 MG CPT-4: J0696 08/23/2011 TRIAMCINOLONE ACET I [place] NOS CPT-4: J3301 08/23/2011 THER/PROPH/DIAG INJ SC/IM CPT-4: 53063 08/23/2011 PRESCRIP TRANSMIT A ERX SY CPT-4: G8553 08/23/2011 OCCULT BLOOD FECES CPT- 4: 58028 06/19/2011 URINALYSIS NONAUTO W /O SCOPE CPT-4: 25014 06/19/2011 PRESCRIP TRANSMIT A ERX SY CPT-4: G8553 06/19/2011 ADMIN INFLUENZA VIRU S VAC CPT-4: G0008 06/05/2011 FLULAVAL VACC, 3 YRS & >, IM CPT-4: Q2036 06/05/2011 Vital Signs Date Vital 02/10/2019 Blood Pressure 1: 152/88 Code: 8480-6 Heart Rate 1: 82 bpm Height: SpO2: 96% Weight: 12/23/2018 Blood Pressure 1: 150/82 Code: 8480-6 Heart Rate 1: 89 bpm Height: SpO2: 95% Weight: 06/12/2018 Blood Pressure 1: 142/68 Code: 8480-6 BMI: 30.0 Code: 35850-4 Heart Rate 1: 91 bpm Height: 5'3" SpO2: 96% Weight: 172 lbs 05/26/2018 Blood Pressure 1: 142/72 Code: 8480-6 BMI: 30.0 Code: 60211-6 Heart Rate 1: 92 bpm Height: 5'3" SpO2: 96% Weight: 172 lbs 04/01/2018 Blood Pressure 1: 120/58 Code: 8480-6 BMI: 29.1 Code: 67088-0 Heart Rate 1: 83 bpm Height: 5'3" Respiratory Rate: 18 bpm SpO2: 95% Weight: 167 lbs 11/25/2017 Blood Pressure 1: 128/58 Code: 8480-6 BMI: 29.8 Code: 19839-1 Heart Rate 1: 83 bpm Height: 5'3" SpO2: 99% Weight: 171 lbs 09/18/2017 Blood Pressure 1: 140/72 Code: 8480-6 BMI: 30.3 Code: 79335-9 Heart Rate 1: 99 bpm Height: 5'3" SpO2: 97% Weight: 174 lbs 05/02/2017 Blood Pressure 1: 122/64 Code: 8480-6 BMI: 29.5 Code: 36840-4 Heart Rate 1: 81 bpm Height: 5'3" SpO2: 97% Weight: 169 lbs 03/29/2017 Blood Pressure 1: 134/68 Code: 8480-6 BMI: 30.0 Code: 04211-3 Heart Rate 1: 89 bpm Height: 5'3" SpO2: 98% Weight: 172 lbs 11/15/2016 Blood Pressure 1: 148/72 Code: 8480-6 BMI: 29.5 Code: 49674-5 Heart Rate 1: 102 bpm Height: 5'3" SpO2: 98% Weight: 169 lbs 11/06/2016 Blood Pressure 1: 140/78 Code: 8480-6 BMI: 29.8 Code: 02317-3 Heart Rate 1: 100 bpm Height: 5'3" SpO2: 97% Weight: 171 lbs 08/01/2016 Blood Pressure 1: 128/56 Code: 8480-6 BMI: 30.3 Code: 36955-6 Heart Rate 1: 88 bpm Height: 5'3" SpO2: 97% Weight: 174 lbs 07/02/2016 Blood Pressure 1: 126/62 Code: 8480-6 BMI: 31.0 Code: 06818-7 Heart Rate 1: 101 bpm Height: 5'3" SpO2: 97% Weight: 178 lbs 06/04/2016 Blood Pressure 1: 136/72 Code: 8480-6 BMI: 31.4 Code: 74676-7 Heart Rate 1: 103 bpm Height: 5'3" SpO2: 98% Weight: 180 lbs 03/26/2016 Blood Pressure 1: 134/74 Code: 8480-6 BMI: 30.7 Code: 93497-0 Heart Rate 1: 93 bpm Height: 5'3" SpO2: 98% Weight: 176 lbs 11/23/2015 Blood Pressure 1: 128/77 Code: 8480-6 BMI: 30.2 Code: 54183-0 Heart Rate 1: 74 bpm Height: 5'3" SpO2: 96% Weight: 173 lbs 10/14/2015 Blood Pressure 1: 122/72 Code: 8480-6 BMI: 30.3 Code: 05822-9 Heart Rate 1: 76 bpm Height: 5'3" SpO2: 97% Weight: 174 lbs 03/31/2015 Blood Pressure 1: 140/68 Code: 8480-6 BMI: 30.0 Code: 17273-1 Heart Rate 1: 93 bpm Height: 5'3" SpO2: 94% Weight: 172 lbs 08/31/2014 Blood Pressure 1: 122/74 Code: 8480-6 BMI: 31.2 Code: 40511-8 Heart Rate 1: 76 bpm Height: 5'3" Weight: 179 lbs 08/10/2014 Blood Pressure 1: 138/62 Code: 8480-6 BMI: 31.0 Code: 75764-1 Heart Rate 1: 80 bpm Height: 5'3" Weight: 178 lbs 05/06/2014 BMI: 31.2 Code: 48121-1 Height: 5'3" Weight: 179 lbs 04/14/2014 Blood Pressure 1: 136/68 Code: 8480-6 BMI: 31.4 Code: 03494-9 Heart Rate 1: 74 bpm Height: 5'3" Weight: 180 lbs 11/10/2013 Blood Pressure 1: 102/50 Code: 8480-6 BMI: 30.7 Code: 98920-6 Heart Rate 1: 76 bpm Height: 5'3" Weight: 176 lbs 07/14/2013 Blood Pressure 1: 136/80 Code: 8480-6 BMI: 30.3 Code: 37191-5 Heart Rate 1: 70 bpm Height: 5'3" Weight: 174 lbs 06/12/2013 Blood Pressure 1: 142/82 Code: 8480-6 BMI: 30.9 Code: 88431-2 Heart Rate 1: 72 bpm Height: 5'3" Weight: 177 lbs 05/20/2013 Blood Pressure 1: 132/70 Code: 8480-6 BMI: 31.2 Code: 23095-2 Heart Rate 1: 88 bpm Height: 5'3" Weight: 179 lbs 04/09/2013 Blood Pressure 1: 136/70 Code: 8480-6 BMI: 31.0 Code: 73304-2 Heart Rate 1: 100 bpm Height: 5'3" Weight: 178 lbs 01/26/2013 Blood Pressure 1: 118/56 Code: 8480-6 BMI: 30.7 Code: 12957-3 Heart Rate 1: 87 bpm Height: 5'3" Weight: 176 lbs 12/23/2012 Blood Pressure 1: 136/76 Code: 8480-6 Heart Rate 1: 104 bpm Respiratory Rate: 20 bpm Weight: 178 lbs 12/15/2012 Blood Pressure 1: 150/82 Code: 8480-6 Heart Rate 1: 100 bpm Temperature: 36.7 (C) / 98.1 (F) Weight: 178 lbs 10/22/2012 Blood Pressure 1: 138/82 Code: 8480-6 BMI: 30.2 Code: 55516-2 Heart Rate 1: 100 bpm Height: 5'3" Weight: 173 lbs 08/21/2012 Blood Pressure 1: 136/70 Code: 8480-6 BMI: 30.6 Code: 77471-0 Heart Rate 1: 98 bpm Height: 5'3" Weight: 175 lbs 8 oz 07/17/2012 Blood Pressure 1: 152/68 Code: 8480-6 BMI: 29.9 Code: 59248-4 Heart Rate 1: 92 bpm Height: 5'3" [...] 1: 122/68 Code: 8480-6 BMI: 29.5 Code: 23207-4 Heart Rate 1: 96 bpm Height: 5'3" [...] 1: 130/72 Code: 8480-6 BMI: 30.4 Code: 77888-7 Heart Rate 1: 92 bpm Height: 5'3" Respiratory Rate: 16 bpm Weight: 174 lbs 8 oz 06/19/2011 Blood Pressure 1: 122/70 Code: 8480-6 BMI: 30.2 Code: 48941-6 Heart Rate 1: 104 bpm Height: 5'3" Weight: 173 lbs 06/05/2011 Blood Pressure 1: 100/50 Code: 8480-6 BMI: 29.6 Code: 17401-5 Heart Rate 1: 96 bpm Height: 5'3" Respiratory Rate: 16 bpm Weight: 170 lbs Functional Status No Functional Status data History of Present Illness Symptom Name Status Resu lt Effective Date Notes Quality feelings of un steadiness 02/10/2019 None [...] None diabetes mellitus Quality chronic 05/20/2013 started [place] recently. stating her blood sugar is dropping [...] recently started s eeking counseling from her step down specialist. depression Pertinent Findings anxiety 08/21/2012 None depression [...] recently started s eeking counseling from her step down specialist. depression Pertinent Findings anxiety 07/17/2012 None depression [...] Encounters Encounter Performer Loca tion Codes Date [id number] EST. PATIENT, LEVEL III Diagnosis: Other allergic rhinitis[ICD10: J30.89] Diagnosis: Benign paroxysmal vertigo, bilateral[ICD10: H81.13] Diagnosis: Dizziness and giddiness[ICD10: R42] Diagnosis: Muscle spasm of back[ICD10: M62.830] Mariana Cheung MD, [facility] CPT- 4: 64075 02/10/2019 ([id number]) 16290 EST. P ATIENT, LEVEL III Diagnosis: Pleurodynia[ICD10: R07.81] Diagnosis: Pain in thoracic spine[ICD10: M54.6] Amy Cheung MD, [facility] CPT-4: 21574 12/23/2018 ([id number]) 05123 EST. P ATIENT, LEVEL III Diagnosis: Gastro-esophageal reflux disease without esophagitis[ICD10: K21.9] Amy Cheung MD, [facility] CPT-4: 33602 06/12/2018 ([id number]) 92932 EST. P ATIENT, LEVEL III Diagnosis: Gastro-esophageal reflux disease without esophagitis[ICD10: K21.9] Diagnosis: Cough[ICD10: R05] Riya Cheung MD, [facility] CPT-4: 11251 05/26/2018 ([id number]) 62975 EST. 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 P ATIENT, LEVEL IV Diagnosis: Type 2 diabetes mellitus with hyperglycemia[ICD10: E11.65] Diagnosis: Essential (primary) hypertension[ICD10: I10] Amy Cheung MD, C CPT-4: 15812 11/25/2017 ([id number]) 82685 EST. P ATIENT, LEVEL IV Diagnosis: Type 2 diabetes mell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[ICD10: E11.9] Diagnosis: Mixed hyperlipidemia[ICD10: E78.2] Diagnosis: Candidal stomatitis[ICD10: B37.0] Amy Cheung MD, [facility] CPT-4: 57696 09/18/2017 ([id number]) 97653 EST. P ATIENT, LEVEL IV Diagnosis: Type 2 diabetes mell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[ICD10: E11.9] Diagnosis: Mixed hyperlipidemia[ICD10: E78.2] Diagnosis: Essential (primary) hypertension[ICD10: I10] Diagnosis: Encounter for immunization[ICD10: Z23] Amy Cheung MD, [facility] CPT-4: 47023 05/02/2017 ([id number]) 43353 EST. P ATIENT, LEVEL III Diagnosis: Candidal stomatitis[ICD10: B37.0] Riya Cheung MD, [facility] CPT- 4: 24864 03/29/2017 ([id number]) 02688 EST. P ATIENT, LEVEL IV Diagnosis: Essential (primary) hypertension[ICD10: I10] Diagnosis: Type 2 diabetes mell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[ICD10: E11.9] Amy Cheung MD, [facility] CPT-4: 74356 11/15/2016 21524 EST. PATIENT, LEVEL III Diagnosis: Other malaise[ICD10: R53.81] Diagnosis: Other fatigue[ICD10: R53.83] Diagnosis: Type 2 diabetes mellitus with hyperglycemia[ICD10: E11.65] Diagnosis: Essential (primary) hypertension[ICD10: I10] Diagnosis: Weakness[ICD10: R53.1] Mariana Cheung MD, [facility] CPT-4: 49561 11/06/2016 ([id number]) 56834 EST. P ATIENT, LEVEL III Diagnosis: Type 2 diabetes mellitus with hyperglycemia[ICD10: E11.65] Amy Cheung MD, C CPT-4: 98235 08/01/2016 ([id number]) 62748 EST. P ATIENT, LEVEL III Diagnosis: Type 2 diabetes mellitus with hyperglycemia[ICD10: E11.65] Diagnosis: Gastroparesis[ICD10: K31.84] Amy Cheung MD, [facility] CPT-4: 18706 07/02/2016 ([id number]) 41655 EST. P ATIENT, LEVEL IV Diagnosis: Type 2 diabetes mellitus with hyperglycemia[ICD10: E11.65] Diagnosis: Hypothyroidism, unspecified[ICD10: E03.9] Amy Cheung MD, C CPT-4: 91506 06/04/2016 ([id number]) 71644 EST. P ATIENT, LEVEL IV Diagnosis: Type 2 diabetes mellitus with hyperglycemia[ICD10: E11.65] Diagnosis: Mixed hyperlipidemia[ICD10: E78.2] Diagnosis: Essential (primary) hypertension[ICD10: I10] Amy Cheung MD, C CPT-4: 96830 03/26/2016 ([id number]) 75231 EST. P ATIENT, LEVEL III Diagnosis: Essential (primary) hypertension[ICD10: I10] Diagnosis: Adjustment disorder with mixed anxiety and depressed mood[ICD10: F43.23] Amy Cheung MD, [facility] CPT-4: 33434 11/23/2015 ([id number]) 56746 EST. P ATIENT, LEVEL IV Diagnosis: Type 2 diabetes mellitus with hyperglycemia[ICD10: E11.65] Diagnosis: Panic disorder [episodic paroxysmal anxiety] without agoraphobia[ICD10: F41.0] Diagnosis: Adjustment disorder with mixed anxiety and depressed mood[ICD10: F43.23] Diagnosis: Essential (primary) hypertension[ICD10: I10] Amy Cheung MD, C CPT-4: 81893 10/14/2015 ([id number]) 08122 EST. P ATIENT, LEVEL IV Diagnosis: DIABETES TYPE II[ICD9: 250.00] Diagnosis: GENERALIZED ANXIETY DISEASE[ICD9: 300.02] Diagnosis: ESSENTIAL HYPERTENSION[ICD9: 401.9] Diagnosis: ESOPHAGEAL REFLUX[ICD9: 530.81] Amy Cheung MD, [facility] CPT-4: 96616 03/31/2015 ([id number]) 22934 EST. P ATIENT, LEVEL IV Diagnosis: DM W/O COMPLICATION TYPE II, UNCONTROLLED[ICD9: 250.02] Diagnosis: ESSENTIAL HYPERTENSION[ICD9: 401.9] Diagnosis: DEPRESSIVE DISORDER NEC[ICD9: 311] Diagnosis: GENERALIZED ANXIETY DISEASE[ICD9: 300.02] Amy Cheung MD, C CPT-4: 05923 08/31/2014 ([id number]) 81229 EST. P ATIENT, LEVEL IV Diagnosis: ESSENTIAL HYPERTENSION[ICD9: 401.9] Diagnosis: DIABETES TYPE II[ICD9: 250.00] Diagnosis: Constipation - functional[ICD9: 564.09] Diagnosis: Abdominal pain[ICD9: 789.00] Amy Cheung MD, [facility] CPT-4: 40946 08/10/2014 ([id number]) 69598 EST. P ATIENT, LEVEL III Diagnosis: Flu vaccine need[ICD9: V04.81] Diagnosis: Neck pain[ICD9: 723.1] Diagnosis: Chronic allergic rhinitis[ICD9: 477.9] Amy Cheung MD, [facility] CPT-4: 70209 05/06/2014 ([id number]) 09447 EST. P ATIENT, LEVEL IV Diagnosis: DM W/O COMPLICATION TYPE II, UNCONTROLLED[ICD9: 250.02] Diagnosis: GENERALIZED ANXIETY DISEASE[ICD9: 300.02] Diagnosis: ESSENTIAL HYPERTENSION[ICD9: 401.9] Diagnosis: Neck pain[ICD9: 723.1] Amy Cheung MD, [facility] CPT-4: 53254 04/14/2014 ([id number]) 73267 EST. P ATIENT, LEVEL IV Diagnosis: ESSENTIAL HYPERTENSION[SNOMED: 92289490] Diagnosis: DIABETES TYPE II[SNOMED: 928363731] Diagnosis: Iliotibial band syndrome[ICD9: 728.89] Diagnosis: DEPRESSIVE DISORDER NEC[ICD9: 311] Diagnosis: GENERALIZED ANXIETY DISEASE[ICD9: 300.02] Amy Cheung MD [facility] CPT-4: 73205 11/10/2013 ([id number]) 73018 EST. P ATIENT, LEVEL III Diagnosis: DIABETES TYPE II[SNOMED: 576945066] Amy Cheung MD, [facility] CPT- 4: 95363 07/14/2013 ([id number]) 16057 EST. P ATIENT, LEVEL IV Diagnosis: ESSENTIAL HYPERTENSION[SNOMED: 53067666] Diagnosis: DM W/O COMPLICATION TYPE II, UNCONTROLLED[SNOMED: 62545850] Amy Cheung MD, [facility] CPT-4: 75650 06/12/2013 ([id number]) 19589 EST. P ATIENT, LEVEL III Diagnosis: DIABETES TYPE II[SNOMED: 772404605] Amy Cheung MD, [facility] CPT- 4: 60710 05/20/2013 ([id number]) 34061 EST. P ATIENT, LEVEL IV Diagnosis: ESSENTIAL HYPERTENSION[SNOMED: 89271378] Diagnosis: HYPERLIPIDEMIA[ICD9: 272.4] Diagnosis: Type II diabetes mellitus, uncontrolled[SNOMED: 23902166] Amy Cheung MD, [facility] CPT-4: 94574 04/09/2013 ([id number]) 92087 EST. P ATIENT, LEVEL III Diagnosis: ESSENTIAL HYPERTENSION[SNOMED: 89736296] Diagnosis: ENCNTR LONG-RX USE NEC[ICD9: V58.69] Diagnosis: IMPACTED CERUMEN[ICD9: 380.4] Amy Cheung MD, [facility] CPT-4: 49955 01/26/2013 ([id number]) 62409 EST. P ATIENT, LEVEL IV Diagnosis: DIABETES TYPE II[SNOMED: 696869825] Diagnosis: ESSENTIAL HYPERTENSION[SNOMED: 38097104] Diagnosis: Polymyalgia[ICD9: 725] Amy Cheung MD, [facility] CPT-4: 06313 12/23/2012 ([id number]) 98675 EST. P ATIENT, LEVEL III Diagnosis: ACUTE MAXILLARY SINUSITIS[ICD9: 461.0] Diagnosis: COUGH[ICD9: 786.2] Amy Cheung MD, [facility] CPT-4: 26660 12/15/2012 ([id number]) 81289 EST. P ATIENT, LEVEL III Diagnosis: ANAL OR RECTAL PAIN[ICD9: 569.42] Diagnosis: Bruising[ICD9: 924.9] Diagnosis: Hip pain[ICD9: 719.45] Amy Cheung MD, [facility] CPT-4: 91329 10/22/2012 ([id number]) 59516 EST. P ATIENT, LEVEL IV Diagnosis: ESSENTIAL HYPERTENSION[SNOMED: 20950738] Diagnosis: DIABETES TYPE II[SNOMED: 184918540] Amy Cheung MD, [facility] CPT- 4: 37548 08/21/2012 ([id number]) 27292 EST. P ATIENT, LEVEL IV Diagnosis: DIABETES TYPE II[SNOMED: 328734773] Diagnosis: DEPRESSIVE DISORDER NEC[ICD9: 311] Aym Cheung MD, [facility] CPT- 4: 81524 07/17/2012 ([id number]) 22174 EST. P ATIENT, LEVEL III Diagnosis: ESSENTIAL HYPERTENSION[SNOMED: 26111518] Diagnosis: DEPRESSIVE DISORDER NEC[ICD9: 311] Amy Cheung MD [facility] CPT- 4: 64316 07/08/2012 71879 EST. PATIENT, LEVEL IV Diagnosis: ESSENTIAL HYPERTENSION[SNOMED: 78366661] Diagnosis: DIABETES TYPE II[SNOMED: 799521403] Amy Cheung MD [facility] CPT- 4: 30236 06/09/2012 ([id number]) 98049 EST. P ATIENT, LEVEL III Diagnosis: Acute sinusitis[ICD9: 461.9] Diagnosis: FEVER NOS[ICD9: 780.60] Amy Cheung MD [facility] CPT-4: 77974 02/12/2012 ([id number]) 04116 EST. P ATIENT, LEVEL III Diagnosis: Otalgia of both ears[ICD9: 388.70] Diagnosis: Hemorrhoids[ICD9: 455.6] Diagnosis: Rectal or anal pain[ICD9: 569.42] Amy Cheung MD [facility] CPT-4: 08323 02/05/2012 ([id number]) 19071 EST. P ATIENT, LEVEL IV Diagnosis: Dysuria[ICD9: 788.1] Diagnosis: ACUTE MAXILLARY SINUSITIS[ICD9: 461.0] Diagnosis: Allergic rhinitis[ICD9: 477.9] Amy Cheung MD [facility] CPT-4: 67815 11/14/2011 ([id number]) 74086 EST. P ATIENT, LEVEL IV Diagnosis: DIABETES TYPE II[SNOMED: 432909808] Diagnosis: Cough[ICD9: 786.2] Diagnosis: FEVER NOS[ICD9: 780.60] Aym Cheung MD [facility] CPT-4: 24338 10/08/2011 56831 EST. PATIENT, LEVEL IV Diagnosis: OTHER CONSTIPATION[ICD9: 564.09] Diagnosis: IMPACTED CERUMEN[ICD9: 380.4] Diagnosis: Recurrent sinusitis[ICD9: 473.9] Amy Cheung MD [facility] CPT-4: 91741 08/28/2011 31132 EST. PATIENT, LEVEL IV Diagnosis: Neck pain, acute[ICD9: 723.1] Diagnosis: Cough[ICD9: 786.2] Diagnosis: Cerumen impaction[ICD9: 380.4] Amy Cheung MD, [facility] CPT-4: 12226 08/23/2011 09602 EST. PATIENT, LEVEL IV Diagnosis: ESSENTIAL HYPERTENSION[SNOMED: 13242949] Diagnosis: HYPERLIPIDEMIA[ICD9: 272.4] Diagnosis: DIABETES TYPE II[SNOMED: 139506243] Diagnosis: DEPRESSIVE DISORDER NEC[ICD9: 311] Diagnosis: 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[ICD9: 357.7] Amy Cheung MD [facility] CPT-4: 20685 07/24/2011 84147 EST. PATIENT, LEVEL IV Diagnosis: Abdominal pain[ICD9: 789.00] Diagnosis: Hematochezia[ICD9: 578.1] Diagnosis: Back pain[ICD9: 724.5] Amy Cheung MD [facility] CPT-4: 51699 06/19/2011 35690 EST. 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] Diagnosis: VACCIN FOR INFLUENZA[ICD9: V04.81] Diagnosis: DEPRESSIVE DISORDER NEC[ICD9: 311] Diagnosis: DIABETES TYPE II[SNOMED: 556821710] Amy Cheung MD, [facility] CPT- 4: 82854 06/05/2011 Plan of Care Planned Activity Notes C odes Status Date Visit Plan: BPPV - Benign Paroxysma l [...] send RX 02/10/2019 Appointment: Mariana Issa WPtel: [address] [place] [address] (15 min) Moderate 02/10/2019 Patient Education: Patient Medication Summary Completed 02/10/2019 Visit Plan: Rib pain and thoracic s pine pain - status post fall at home - discussed with pt - need to check xrays - okay to keep using her back brace. Rx for muscle relaxer sent to patient's pharmacy. Kenalog shot given in clinic today. 12/23/2018 Appointment: Amy Cheung WPtel: [address] [place] [address] (15 min) Moderate 12/23/2018 Patient Education: Patient Medication Summary Completed 12/23/2018 Care Plan: X-RAY EXAM THORAC SPINE 2VWS LOINC : 54865-3 Pending 12/23/2018 Visit Plan: Esophageal Reflux - the patient has been counseled against excessive intake of caffeine, spicy foods, peppermint, and cinnamon - all of which can exacerbate esophageal reflux. The patient is to take medications as prescribed and call the office if the symptoms are not improving. Advised pt to use lactaid pills 06/12/2018 Appointment: Amy Cheung WPtel: [facility] (15 min) Moderate 06/12/2018 Appointment: Riya Sheikh WPtel: [phone] [facility] - Annual Wellness Visit 06/12/2018 Patient Education: Patient Medication Summary Completed 06/12/2018 Visit Plan: Esophageal Reflux - the patient has been counseled against excessive intake of caffeine, spicy foods, peppermint, and cinnamon - all of which can exacerbate esophageal reflux. The patient is to take medications as prescribed and call the office if the symptoms are not improving. Assur-cqnoaipuy-vznurgs injection today in the office -start claritin [...] less controlled. 04/01/2018 Appointment: Amy Cheung WPtel: [address] [place], [place] [address] (15 min) Moderate 04/01/2018 Patient Education: Patient Medication Summary Completed 04/01/2018 Patient Education: Patient Medication Summary Completed 03/31/2018 Appointment: Amy Cheung WPtel: [address] [place], [place] [address] (15 min) Moderate 01/15/2018 Visit Plan: Diabetes [...] home. 11/25/2017 Appointment: Amy Cheung WPtel: [phone] [facility] (15 min) Moderate 11/25/2017 Patient Education: Patient [...] for nystatin 09/18/2017 Appointment: Amy Cheung WPtel: [phone] [facility] (15 min) Moderate 09/18/2017 Patient Education: Patient [...] today 05/02/2017 Appointment: Amy Cheung WPtel: [phone] [facility] [place] (15 min) Moderate 05/02/2017 Patient Education: Patient Medication Summary Completed 05/02/2017 Appointment: Amy Cheung WPtel: [phone] [facility] [place] (15 min) Moderate 04/15/2017 Visit Plan: Thrush-discussed natura l and expected course of this diagnosis and to alert me if symptoms do not follow expected course, or if any worse. RX sent to patient's pharmacy. Patient verbalized understanding of plan. 03/29/2017 Appointment: Riya Sheikh WPtel: [phone] [phone] [place] (30 min) Complex 03/29/2017 Patient Education: Patient Medication Summary Completed 03/29/2017 Patient Education: Obesity Completed 03/29/2017 [facility]ment: [phone] [facility] [place] (15 min) Moderate 03/14/2017 Visit Plan: Diabetes [...] at home. 11/15/2016 Appointment: Amy Cheung WPtel: [phone] [facility] [place] (15 min) Moderate 11/15/2016 Patient Education: Patient Medication Summary Completed 11/15/2016 Appointment: Amy Cheung WPtel: [phone] [facility] [place] (15 min) Moderate 11/07/2016 Visit Plan: [...] control. 11/06/2016 [facility]ment[phone] ([facility] min) Complex 11/06/2016 Patient Education: Patient Medication Summary Completed 11/06/2016 Patient Education: Patient Medication Summary Completed 09/19/2016 Patient Education: Patient Medication Summary Completed 08/22/2016 Care Plan: Comp Metabolic Pending 08/22/2016 Care Plan: %Hba1C she can have drawn anytime after 09/04/16 LOINC : 61884-6 Pending 08/22/2016 Visit Plan: Diabetes Mellitus - [...] to clinic. 08/01/2016 Appointment: [phone] [facility] [place] (15 min) Moderate 08/01/2016 Patient Education: Patient Medication Summary Completed 08/01/2016 Appointment: Amy Cheung WPtel: [phone] [facility] [place] (15 min) Moderate 07/09/2016 Visit Plan: [...] GI motility 07/02/2016 Appointment: Amy Cheung WPtel: [phone] [facility] (15 min) Moderate 07/02/2016 Patient Education: Patient [...] of control. 06/04/2016 Appointment: [facility] [phone] [facility] [place] (15 min) Moderate 06/04/2016 Patient Education: [...] to medications. 03/26/2016 Appointment: [facility]el[facility] (15 min) Moderate 03/26/2016 Patient Education: Patient [...] Completed 10/14/2015 Appointment: Amy Cheung WPtel: [address] [facility] (15 min) Moderate 10/13/2015 Appointment: Amy Cheung WPtel: [phone] [facility] (15 min) Moderate 05/09/2015 Visit Plan: Diabetes [...] esophageal cancer. 03/31/2015 Appointment: Amy Cheung WPtel: [phone] [facility] [place] (15 min) Moderate 03/31/2015 Patient Education: Patient Medication Summary Completed 03/31/2015 Patient Education: Hypertension Completed 03/31/2015 Appointment: (15 min) Moderate 02/11/2015 Appointment: Amy Cheung WPtel: [phone] [facility] [place] Sick 09/29/2014 Visit Plan: Diabetes Mellitus [...] 9 months. 08/31/2014 Appointment: Amy Cheung WPtel: [phone] [facility] Follow up 08/31/2014 Patient Education: Patient Medication [...] Hypertension Completed 08/10/2014 Appointment: Amy Cheung WPtel: [address] [place], [place] [phone] Follow up 05/10/2014 Visit Plan: Allergies - [...] be ordered. 05/06/2014 Appointment: Amy Cheung WPtel: [address] [place], [place] [phone] Follow up 05/06/2014 Patient Education: Patient Medication Summary Completed 05/06/2014 Patient Education: .Cervicalgia Neck Pain Completed 05/06/2014 Appointment: Amy Cheung WPtel: [address] [place] [address] Follow up 05/05/2014 Visit Plan: Hypertension - [...] the neck. 04/14/2014 Appointment: Amy Cheung WPtel: [facility] Follow up 04/14/2014 Patient Education: Patient Medication [...] band exercises. 11/10/2013 Appointment: Amy Cheung WPtel: [address] [place], [place] [id number] Other 11/10/2013 Patient Education: Patient Medication Summary [...] monitor symptoms. 07/14/2013 Appointment: Amy Cheung WPtel: [facility] [place] Other 07/14/2013 Patient Education: Patient Medication Summary Completed 07/14/2013 Appointment: Riya Sheikh WPtel: [phone] [place] Follow up 07/13/2013 Visit Plan: Hypertension - [...] glucose control. 06/12/2013 Appointment: Riya Sheikh WPtel: [phone] [place] Other 06/12/2013 Patient Education: Patient Medication Summary [...] to patient. 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 Kraus as he will ultimately [...] glucose control. Glyburide restarted. 04/09/2013 Appointment: Amy Cheugn [facility]Ptel[facility] [phone] [facility] [place] Follow up 04/09/2013 Patient Education: Patient Medication Summary Completed 04/09/2013 Patient Education: Hypertension Completed 04/09/2013 Appointment: [facility]el[facility] [phone] [facility] [place] Follow up 03/30/2013 Visit Plan: Hypertension - [...] water today 01/26/2013 Appointment: Amy Cheung WPtel: [phone] [facility] Other 01/26/2013 Patient Education: Patient Medication Summary Completed 01/26/2013 Patient Education: Hypertension Completed 01/26/2013 Visit Plan: Diabetes Mellitus - eleuterio harper [...] at home. 12/23/2012 Appointment: [facility] [phone] [facility] Follow up 12/23/2012 Patient Education: Patient Medication Summary Completed 12/23/2012 Patient Education: Hypertension Completed 12/23/2012 Visit Plan: Sinusitis - Pt has acut e infection - pain in face, maxillary region, Pt informed to use decongestant, RX given to patient, sinus rinses also recommended. Call if symptoms do not show improvement. 12/15/2012 Appointment: Amy Cheung WPtel: [phone] [id number] Sick 12/15/2012 Patient Education: Patient Medication Summary Completed 12/15/2012 Visit Plan: Bruising and pain post fall- with hip pain - recommended pt to have xray of hips and pelvis and lumbar spine as she is having the pain in her hips post fall. 10/22/2012 Appointment: Amy Cheung WPtel: [facility]5 [facility] [place] Other 10/22/2012 Patient Education: Patient Medication Summary Completed 10/22/2012 Appointment: Amy Cheung WPtel: [address] [place], [place] [id number] Follow up 09/30/2012 Visit Plan: Hypertension - [...] less controlled. 08/21/2012 Appointment: Amy Cheung WPtel: [address] [place], [place] [phone] Follow up 08/21/2012 Patient Education: Patient Medication [...] that [facility] can [facility] and change [facility]. No change to Pat's medications today. Time based documentation -I spent over 40 minutes with the patient in discussion of the disease process, expected course, and overall prognosis for the patient's disease state. The patient/family expressed understanding. 07/17/2012 Appointment: Amy Cheung WPtel: [facility]6 [place] [id number] Follow up 07/17/2012 Patient Education: Patient Medication [...] issues today. 07/08/2012 Appointment: Amy Cheung WPtel: [facility] Other 07/08/2012 Patient Education: Patient Medication Summary Completed 07/08/2012 Patient Education: Hypertension Completed 07/08/2012 Visit Plan: Diabetes Mellitus - con trolled [...] labs checked. 06/09/2012 Appointment: Amy Cheung WPtel: [facility]1 [facility] [place] Other 06/09/2012 Patient Education: Patient Medication Summary Completed 06/09/2012 Patient Education: High Blood Pressure: Essential Hypertension Completed 06/09/2012 Visit Plan: Sinusitis - Pt has acut e infection - pain in face, maxillary region, Pt informed to use decongestant, RX given to patient, sinus rinses also recommended. Call if symptoms do not show improvement. 02/12/2012 Appointment: Amy Cheung WPtel: [address] [place], [place] [phone] [place] Other 02/12/2012 Patient Education: Patient Medication Summary [...] in place. 02/05/2012 Appointment: Amy Cheung WPtel: [facility] Other 02/05/2012 Patient Education: Patient Medication Summary [...] any worse. Check your [place] labs [place] [facility] will call you with the results. Allergies - chronic - recommended pt to use allergy medication as prescribed. Pt has been counseled as the the appropriate use of the medication. Pt to call if allergy symptoms are not controlled with the medication. Dysuria - UA negative 11/14/2011 Appointment: Amy Cheung WPtel: [address] [place], [place] [phone] [place] Other 11/14/2011 Appointment: Amy Cheung WPtel: [address] [place], [place] [id number] Other 11/14/2011 Patient Education: Patient Medication Summary [...] patient today. 10/08/2011 Appointment: Amy Cheung WPtel: [phone] [facility] Other 10/08/2011 Patient Education: Patient Medication Summary [...] removal process. 08/28/2011 App[facility]ment: [id number] [place] Other 08/28/2011 Patient Education: Patient Medication Summary [...] in readings. 07/24/2011 Appointment: Amy Cheung WPtel: [address] [place], [place] [id number] Other 07/24/2011 Patient Education: Patient Medication Summary [...] and heat to lower back. 06/19/2011 Appointment: Mina Cheungy WPtel: [phone] Other 06/19/2011 Patient Education: Patient Medication [...] if needed for neuropathic symptoms. 06/05/2011 Appointment: Abie Amy WPtel: [facility] Other 06/05/2011 Patient Education: Patient Medication Summary [...] pt given handout on Ilitibial band exercises. take 1/2 bottle of m agnesium citrate [...] interventions. Muscle spasms - will send RX I sent prescriptions to [facility] for the following medications: LOSARTAN [...] on the bydureon - monitor symptoms. . Thrush-discussed n atural and expected course [...] continue with reglan for GI motility . Hypertension - wel l controlled - [...] are starting to become less controlled. . Hypertension - wel l controlled - [...] discuss all of the issues today. . Sinusitis - Pt has acute infection - pain in face, maxillary region, Pt informed to use decongestant, RX given to patient, sinus rinses also recommended. Call if symptoms do not show improvement. . Sinusitis - Pt has acute infection [...] Cough - use prn cough medication. . Diabetes Mellitus - controlled - per [...] Kenalog shot given in clinic today. . Hyperlipidemia - pt has been counseled [...] a copy of this note to her [employer] Operator - Dr. Kraus as he will ultimately [...] greater blood glucose control. Glyburide restarted. . Diabetes Mellitus - improved control - [...] home, bring in copy to clinic. . Hypertension - wel l controlled - [...] García for evaluation of the neck. . Fatigue, malaise, diaphoresis, weakness - will [...] readings are starting to become less controlled. you are due for a re gular [...] improving. Advised pt to use lactaid pills . Diabetes Mellitus - controlled - per [...] stomatitis - continue with plans for nystatin increase the metform in to 1.5 tablets [...] pain in her hips post fall. . Diabetes Mellitus - controlled - per [...] with codeine given to patient today. . Sinusitis - Pt has acute infection [...] that she can have an [facility] can [facility] and change together. No [...] medications. prevnar and flu shot today . Hypertension - wel l controlled [...] office if the symptoms are not improving. [id number] injection today in the office -start claritin [...] to situation with her having esophageal cancer. george lux . Allergies - chronic - [...] pain - MRI to be ordered. . Sinusitis - Pt garcia s acute [...] continue to monitor - bring in readings. DX sinusitis - discu ssed expected course with the patient, pt advised to call for worsening symptoms, or lack of improvement on prescribed treatment course. Singulair samples-10mg po daily. Call if you allergy symptosm do not improve, or if any worse. [place] your [place] labs [place] [facility] will call you with the results. [...] any worse. Check your [facility] labs at [facility]-we will call you with the results. Allergies - chronic - recommended pt to use allergy medication as prescribed. Pt has been counseled as the the appropriate use of the medication. Pt to call if allergy symptoms are not controlled with the medication. Dysuria - UA negative . Diabetes Mellitus - controlled - per [...]
--- OUTSIDE RECORDS SUMMARY | 2019-08-12 22:49 | XMS REPORT | CCD ---
Author Author Veronica Cheung Organization Amy Cheung MD, [facility] Address [address] [place] [address] Phone Care Team Providers Care Cleaner Name Role Phone PP Unavailable CCM Unavailable Summary Purpose Interface Exchange Insurance Providers Payer name Policy type / Coverage type Covered alliance party ID Effective Begin Date Effective End Date WPS Medicare Part B Medicare Part B [id number] Unknown GEHA Medicare Part B [id number] Unknown Family history Father Diagnosis Age At [...] Codes Condition Status Onset Date Resolved Date Pain in thoracic spine ICD-9: 724.1 ICD-10: [...] Condition Codes Effectiv e Dates Condition Status Pain in thoracic spine ICD-9: 724.1 ICD-10: [...] Date Stop Date Sta tus Fill Instructions levothyroxine 25 mcg tablet RxNorm: 460221 Tablet(s) TAKE 1 TABL ET DAILY 01/16/2019 07/14/2019 Ac tive mesalamine 800 mg ta blet,delayed release RxNorm: 979241 Tablet(s) TAKE 1 TABL ET TWICE A DAY 01/15/2019 01/09/2020 Active metformin 500 mg tablet RxNorm: 769153 TAKE 1 AND 1/2 TABLETS TWICE DAILY 01/15/2019 01/09/2020 Ac tive Nexium 40 mg capsule ,delayed release RxNorm: 244367 TAKE 1 CAPSULE TWICE DAILY 01/15/2019 01/09/2020 Ac tive Lialda 1.2 gram tabl et,delayed release RxNorm: 884220 2 Tablet(s) PO daily 12/23/2018 No Stop Date Active Kenalog 40 mg/mL eilzabeth pension for injection RxNorm: 5332782 Milliliter(s) Inj 12/23/2018 12/23/2018 In active cyclobenzaprine 5 mg tablet RxNorm: 261769 1 Tablet(s) PO TID x 3 days then as needed for muscle spasms 12/23/2018 01/01/2019 Inactive furosemide 40 mg tablet RxNorm: 475637 TAKE 1 TABLET DAILY 12/01/2018 08/27/2019 Active Effexor XR 75 mg cap alma,extended release RxNorm: 620186 1 Capsule(s) PO daily 09/16/2018 09/10/2019 Ac tive levothyroxine 25 mcg tablet RxNorm: 267605 Tablet(s) TAKE 1 TABL ET DAILY 08/26/2018 01/15/2019 In active montelukast 10 mg ta blet RxNorm: 430282 TAKE 1 TABLET DAILY 07/21/2018 07/15/2019 Active Augmentin 500 mg-125 mg tablet RxNorm: 898541 1 Tablet(s) PO TID 05/27/2018 05/26/2018 Inactive Augmentin 500 mg-125 mg tablet RxNorm: 300681 1 Tablet(s) PO TID 05/27/2018 06/02/2018 Inactive Kenalog 40 mg/mL elizabeth pension for injection RxNorm: 9902869 1 Milliliter(s) Inj 05/26/2018 05/26/2018 In active pilocarpine 5 mg tablet RxNorm: 5049640 Tablet(s) TAKE 4 TABLETS DAILY 04/22/2018 07/15/2019 Ac tive Trulicity 1.5 mg/0.5 mL subcutaneous pen injector RxNorm: 6787733 INJECT 0.5ML SUBCUTANEOUSLY EVERY WEEK 02/24/2018 04/29/2019 Active levothyroxine 25 mcg tablet RxNorm: 096467 TAKE 1 TABLET DAILY 02/13/2018 08/11/2018 Inactive mesalamine 800 mg ta blet,delayed release RxNorm: 406343 TAKE 1 TABLET TWICE A DAY 12/10/2017 12/03/2018 In active metformin 500 mg tablet RxNorm: 288591 1.5 Tablet(s) PO BID 11/25/2017 11/19/2018 Inactive levothyroxine 25 mcg tablet RxNorm: 257453 TAKE 1 TABLET DAILY 11/19/2017 02/12/2018 Inactive Nexium 40 mg capsule ,delayed release RxNorm: 481896 TAKE 1 CAPSULE TWICE DAILY 11/15/2017 11/09/2018 In active Effexor XR 75 mg cap alma,extended release RxNorm: 697132 1 Capsule(s) PO daily 10/14/2017 09/15/2018 In active Bactroban 2 % topica l cream RxNorm: 516341 1 Application TOP TID 09/18/2017 09/27/2017 Inactive nystatin 100,000 uni t/mL oral suspension RxNorm: 466373 5 Milliliter(s) PO TI D 09/18/2017 09/27/2017 In active oxazepam 10 mg capsule RxNorm: 512846 1 Capsule(s) PO TID as needed anxiety 09/02/2017 02/28/2018 In active fluticasone 50 mcg/a ctuation nasal spray,suspension RxNorm: 3428821 [place] USE ONE SPRAY IN EACH NOSTRIL TWICE A DAY 08/29/2017 12/26/2017 Inactive oxazepam 10 mg capsule RxNorm: 426353 1 Capsule(s) PO TID as needed anxiety 08/29/2017 09/01/2017 In active furosemide 40 mg tablet RxNorm: 632722 TAKE 1 TABLET DAILY 08/26/2017 08/20/2018 Inactive pilocarpine 5 mg tablet RxNorm: 1721306 TAKE 4 TABLETS DAILY 08/26/2017 04/21/2018 Inactive metformin 500 mg tablet RxNorm: 830097 TAKE 1 TABLET TWICE A DAY 08/20/2017 11/24/2017 Inactive Claritin-D 12 Hour 5 mg-120 mg tablet,extended release RxNorm: 0490613 Tablet(s) TAKE ONE (1) TABLET BY MOUTH TWICE DAILY 07/29/2017 12/22/2018 Inactive fluticasone 50 mcg/a ctuation nasal spray,suspension RxNorm: 7387033 [place] USE ONE SPRAY IN EACH NOSTRIL TWICE A DAY 07/25/2017 07/24/2017 Inactive fluticasone 50 mcg/a ctuation nasal spray,suspension RxNorm: 0817625 [place] USE ONE SPRAY IN EACH NOSTRIL TWICE A DAY 07/25/2017 08/28/2017 Inactive fluticasone 50 mcg/a ctuation nasal spray,suspension RxNorm: 2725149 [place] USE ONE SPRAY IN EACH NOSTRIL TWICE A DAY 06/04/2017 07/24/2017 Inactive montelukast 10 mg ta blet RxNorm: 724993 TAKE 1 TABLET DAILY 06/03/2017 05/28/2018 Inactive levothyroxine 25 mcg tablet RxNorm: 790831 TAKE 1 TABLET DAILY 05/13/2017 11/08/2017 Inactive Voltaren 1 % topical gel RxNorm: 260724 2 Gram(s) TOP QID 05/02/2017 2017 Inactive nystatin 100,000 uni t/mL oral suspension RxNorm: 783228 5 Milliliter(s) PO QI D 03/29/2017 04/11/2017 In active Diflucan 150 mg tablet RxNorm: 304651 1 Tablet(s) PO daily 03/29/2017 05/01/2017 Inactive Trulicity 1.5 mg/0.5 mL subcutaneous pen injector RxNorm: 5476833 INJECT 0.5ML SUBCUTANEOUSLY EVERY WEEK 02/28/2017 01/29/2018 Inactive levothyroxine 25 mcg tablet RxNorm: 424339 1 Tablet(s) PO daily 11/19/2016 11/18/2016 Inactive levothyroxine 25 mcg tablet RxNorm: 673722 1 Tablet(s) PO daily 11/19/2016 05/12/2017 Inactive Claritin 10 mg tablet RxNorm: 501974 1 Tablet(s) PO daily 11/07/2016 11/06/2016 Inactive Claritin 10 mg tablet RxNorm: 617024 1 Tablet(s) PO daily 11/07/2016 12/06/2016 Inactive Zithromax Z-Ankit 250 mg tablet RxNorm: 960188 1 Tablet(s) PO UD 11/07/2016 05/01/2017 Inactive oxazepam 10 mg capsule RxNorm: 695521 1 Capsule(s) PO TID as needed anxiety 11/01/2016 12/30/2016 In active Nexium 40 mg capsule ,delayed release RxNorm: 896188 1 Capsule(s) PO BID 10/25/2016 10/19/2017 In active Claritin-D 12 Hour 5 mg-120 mg tablet,extended release RxNorm: 1666963 Tablet(s) TAKE ONE (1) TABLET BY MOUTH TWICE DAILY 10/25/2016 12/23/2016 Inactive mesalamine 800 mg ta blet,delayed release RxNorm: 906811 1 Tablet(s) PO BID 09/18/2016 09/17/2016 In active mesalamine 800 mg ta blet,delayed release RxNorm: 715550 1 Tablet(s) PO BID 09/18/2016 06/14/2017 In active Effexor XR 75 mg cap alma,extended release RxNorm: 661050 1 Capsule(s) PO daily 08/30/2016 08/24/2017 In active metformin 500 mg tablet RxNorm: 773452 1 Tablet(s) PO BID 08/17/2016 08/11/2017 Inactive oxazepam 10 mg capsule RxNorm: 336272 1 Capsule(s) PO TID as needed anxiety 08/17/2016 10/15/2016 In active Claritin-D 12 Hour 5 mg-120 mg tablet,extended release RxNorm: 6590030 TAKE ONE (1) TABLET BY MOUTH TWICE DAILY... 08/16/2016 10/24/2016 Inactive furosemide 40 mg tablet RxNorm: 230053 1 Tablet(s) daily TAKE 1 TABLET DAILY 08/14/2016 08/08/2017 In active Effexor XR 75 mg cap alma,extended release RxNorm: 338746 1 Capsule(s) PO daily 08/14/2016 08/29/2016 In active pilocarpine 5 mg tablet RxNorm: 4025578 4 Tablet(s) PO daily TAKE 4 TABLETS YARI Y 08/14/2016 08/08/2017 In active metoclopramide 5 mg tablet RxNorm: 588612 1/2 to 1 Tablet(s) PO TID for nause and GI dysmotility 07/02/2016 11/14/2016 Inactive Effexor XR 75 mg cap alma,extended release RxNorm: 731689 1 Capsule(s) PO daily 07/02/2016 08/13/2016 In active metformin 500 mg tablet RxNorm: 135825 1/2 TABLET(S) PO BID X2 WEEKS THEN INCRE ASE TO 1 TABLET PO BID THEREAFTER 06/26/2016 08/16/2016 Inactive 30 day supply Claritin-D 12 Hour 5 mg-120 mg tablet,extended release RxNorm: 4322747 1 Tablet(s) PO BID 06/18/2016 08/15/2016 Inactive montelukast 10 mg ta blet RxNorm: 063669 1 Tablet(s) PO daily 06/13/2016 06/02/2017 Inactive metformin 500 mg tablet RxNorm: 225683 1/2 Tablet(s) PO BID x2 weeks then incre ase to 1 Tablet PO BID thereafter 06/07/2016 06/06/2016 Inactive 30 day supply metformin 500 mg tablet RxNorm: 569835 1/2 Tablet(s) PO BID x2 weeks then incre ase to 1 Tablet PO BID thereafter 06/07/2016 06/25/2016 Inactive 30 day supply Diflucan 150 mg tablet RxNorm: 505243 1 Tablet(s) PO daily 03/27/2016 04/02/2016 Inactive nystatin 100,000 uni t/mL oral suspension RxNorm: 435788 5 Milliliter(s) PO QI D 03/27/2016 04/05/2016 In active nystatin 100,000 uni t/mL oral suspension RxNorm: 023903 5 Milliliter(s) PO QI D 03/27/2016 03/26/2016 In active Diflucan 150 mg tablet RxNorm: 365532 1 Tablet(s) PO daily 03/27/2016 03/26/2016 Inactive Effexor XR 75 mg cap alma,extended release RxNorm: 458333 1 Capsule(s) PO daily 03/26/2016 07/01/2016 In active this replaces the 150mg dose - we are we aning down her dose Trulicity 1.5 mg/0.5 mL subcutaneous pen injector RxNorm: 0584014 0.5 Milliliter(s) SQ QW 03/26/2016 02/27/2017 Inactive Trulicity 0.75 mg/0. 5 mL subcutaneous pen injector RxNorm: 5170099 1 injection SQ QW 03/13/2016 06/03/2016 Inactive Trulicity 0.75 mg/0. 5 mL subcutaneous pen injector RxNorm: 9170204 1/2 Milliliter(s) SQ QW 03/13/2016 03/12/2016 Inactive glyburide 2.5 mg tablet RxNorm: 006913 1/2 Tablet(s) PO BID 03/13/2016 03/25/2016 Inactive glyburide 2.5 mg tablet RxNorm: 767664 1/2 Tablet(s) PO BID 03/13/2016 03/12/2016 Inactive Claritin-D 12 Hour 5 mg-120 mg tablet,extended release RxNorm: 0297793 1 Tablet(s) PO BID 02/03/2016 10/24/2016 Inactive Synthroid 25 mcg tablet RxNorm: 881385 1 Tablet(s) PO daily 01/23/2016 11/18/2016 Inactive Synthroid 25 mcg tablet RxNorm: 256685 1 Tablet(s) PO daily 01/23/2016 01/22/2016 Inactive Claritin-D 12 Hour 5 mg-120 mg tablet,extended release RxNorm: 6827723 1 Tablet(s) PO BID 12/05/2015 05/31/2016 Inactive Effexor XR 150 mg ca psule,extended release RxNorm: 034757 TAKE 1 CAPSULE DAILY 12/05/2015 03/25/2016 In active Bydureon 2 mg/0.65 m L subcutaneous pen injector RxNorm: 1470381 2 Milligram(s) SQ QW 10/14/2015 03/12/2016 Inactive oxazepam 10 mg capsule RxNorm: 768947 1 Capsule(s) PO TID PRN as needed anxiet y 10/14/2015 04/10/2016 In active Nexium 40 mg capsule ,delayed release RxNorm: 333955 1 Capsule(s) BID TAKE 1 CAPSULE DAILY 10/14/2015 10/07/2016 Inactive this is a new RX - fill the twice daily dose instead of once daily dose Effexor XR 150 mg ca psule,extended release RxNorm: 527627 1 Capsule(s) PO daily TAKE 1 CAPSULE DAILY 10/03/2015 03/25/2016 Inactive pilocarpine 5 mg tablet RxNorm: 4982048 4 Tablet(s) PO daily TAKE 4 TABLETS YARI Y 08/09/2015 02/04/2016 In active pilocarpine 5 mg tablet RxNorm: 2935953 4 Tablet(s) PO daily TAKE 4 TABLETS YARI Y 07/26/2015 08/08/2015 In active Claritin-D 12 Hour 5 mg-120 mg tablet,extended release RxNorm: 2342610 1 Tablet(s) PO BID 05/02/2015 10/24/2016 Inactive furosemide 40 mg tablet RxNorm: 677404 1 Tablet(s) daily TAKE 1 TABLET DAILY 03/31/2015 03/24/2016 In active Nexium 40 mg capsule ,delayed release RxNorm: 989544 1 Capsule(s) BID TAKE 1 CAPSULE DAILY 03/31/2015 10/13/2015 Inactive this is a new RX - fill the twice daily dose instead of once daily dose Nexium 40 mg capsule ,delayed release RxNorm: 428613 1 Capsule(s) daily TA KE 1 CAPSULE DAILY 03/31/2015 03/30/2015 Inactive montelukast 10 mg ta blet RxNorm: 437251 1 Tablet(s) PO daily 03/31/2015 03/24/2016 Inactive Synthroid 25 mcg tablet RxNorm: 906457 1 Tablet(s) PO daily 01/17/2015 01/11/2016 Inactive Synthroid 25 mcg tablet RxNorm: 071060 1 Tablet(s) PO daily 01/03/2015 01/16/2015 Inactive Claritin-D 12 Hour 5 mg-120 mg tablet,extended release RxNorm: 0167195 1 Tablet(s) PO BID 12/29/2014 05/01/2015 Inactive Synthroid 25 mcg tablet RxNorm: 020044 1 Tablet(s) PO daily 12/20/2014 01/02/2015 Inactive Synthroid 25 mcg tablet RxNorm: 264792 1 Tablet(s) PO daily 12/07/2014 12/19/2014 Inactive Effexor XR 150 mg ca psule,extended release RxNorm: 109310 1 Capsule(s) PO daily TAKE 1 CAPSULE DAILY 11/30/2014 10/02/2015 Inactive Nexium 40 mg capsule ,delayed release RxNorm: 960515 Capsule(s) TAKE 1 CAP ALMA DAILY 11/30/2014 03/30/2015 In active fenofibric acid (cho line) 135 mg capsule,delayed release RxNorm: 943967 1 Capsule(s) PO daily 08/31/2014 08/25/2015 Inactive Bydureon 2 mg subcut aneous extended release suspension RxNorm: 2835775 1 injection SQ QW 07/21/2014 07/15/2015 Inactive fluticasone 50 mcg/a ctuation nasal spray,suspension RxNorm: 6891654 USE ONE SPRAY IN EACH NOSTRIL TWICE A DAY 07/06/2014 06/03/2017 Inactive Lipitor 10 mg tablet RxNorm: 323576 TAKE 1 TABLET AT BEDTIME 06/15/2014 10/13/2015 Inactive furosemide 40 mg tablet RxNorm: 262675 TAKE 1 TABLET DAILY 06/15/2014 03/30/2015 Inactive oxazepam 10 mg capsule RxNorm: 372953 1 Capsule(s) PO TID PRN as needed anxiet y 06/11/2014 12/07/2014 In active montelukast 10 mg ta blet RxNorm: 599485 1 Tablet(s) PO daily 05/25/2014 03/30/2015 Inactive oxazepam 10 mg capsule RxNorm: 232672 1 Capsule(s) PO TID PRN as needed anxiet y 05/06/2014 06/10/2014 In active montelukast 10 mg ta blet RxNorm: 242112 1 Tablet(s) PO daily 05/04/2014 05/24/2014 Inactive Nexium 40 mg capsule ,delayed release RxNorm: 652486 TAKE 1 CAPSULE DAILY 03/25/2014 11/29/2014 In active Nexium 40 mg capsule ,delayed release RxNorm: 462589 1 Capsule(s) PO daily TAKE 1 CAPSULE DAILY 03/02/2014 03/24/2014 Inactive oxazepam 10 mg capsule RxNorm: 175176 1 Capsule(s) PO TID PRN as needed 02/24/2014 04/24/2014 In active pilocarpine 5 mg tablet RxNorm: 4286993 TAKE 4 TABLETS DAILY 02/01/2014 07/25/2015 Inactive Claritin-D 12 Hour 5 mg-120 mg tablet,extended release RxNorm: 0223165 1 Tablet(s) PO BID 12/24/2013 10/24/2016 Inactive Effexor XR 150 mg ca psule,extended release RxNorm: 486246 1 Capsule(s) PO daily TAKE 1 CAPSULE DAILY 12/24/2013 11/29/2014 Inactive Klor-Con 10 mEq tabl et,extended release RxNorm: 708130 1 Tablet(s) PO daily 12/24/2013 10/13/2015 In active Bydureon 2 mg subcut aneous extended release suspension RxNorm: 9843909 1 injection SQ QW 12/07/2013 07/20/2014 Inactive Synthroid 25 mcg tablet RxNorm: 085633 1 Tablet(s) PO daily 12/02/2013 11/26/2014 Inactive Klor-Con 10 mEq tabl et,extended release RxNorm: 645330 1 Tablet(s) PO daily take 2 daily x 1 week then one daily thereafter 12/02/2013 12/23/2013 Inactive oxazepam 10 mg capsule RxNorm: 147851 1 Capsule(s) PO TID PRN 11/10/2013 01/08/2014 Inactive omeprazole 20 mg cap alma,delayed release RxNorm: 417947 1 Capsule(s) PO daily 11/10/2013 04/13/2014 In active Synthroid 50 mcg tablet RxNorm: 818716 Tablet(s) PO TAKE 1 TABLET DAILY 09/21/2013 12/01/2013 In active furosemide 40 mg tablet RxNorm: 552715 Tablet(s) PO TAKE 1 TABLET DAILY 09/21/2013 06/14/2014 In active Bydureon 2 mg subcut aneous extended release suspension RxNorm: 8026769 1 injection SQ QW 07/22/2013 12/06/2013 Inactive Bydureon 2 mg subcut aneous extended release suspension RxNorm: 2155821 1 injection SQ QW 07/14/2013 07/21/2013 Inactive Nexium 40 mg capsule ,delayed release RxNorm: 384922 Capsule(s) PO TAKE 1 CAPSULE DAILY 06/18/2013 11/09/2013 Inactive fluticasone 50 mcg/a ctuation nasal spray,suspension RxNorm: 313517 1 [place] NASAL BID 06/18/2013 07/05/2014 Inactive Lipitor 10 mg tablet RxNorm: 599392 Tablet(s) PO every other day 1 tablet qo d 06/18/2013 06/12/2014 In active losartan 25 mg tablet RxNorm: 504295 1 Tablet(s) PO daily 1 daily for blood p ressure 06/18/2013 10/15/2013 Inactive Toprol XL 25 mg tabl et,extended release RxNorm: 288032 1 Tablet(s) PO daily 06/18/2013 06/12/2014 In active Toprol XL 25 mg tabl et,extended release RxNorm: 245936 1 Tablet(s) PO daily 06/12/2013 06/17/2013 In active losartan 25 mg tablet RxNorm: 507972 1 Tablet(s) PO daily 1 daily for blood p ressure 06/12/2013 06/17/2013 Inactive Lipitor 10 mg tablet RxNorm: 907722 Tablet(s) PO every other day 1 tablet qo d 06/12/2013 06/17/2013 In active Effexor XR 150 mg ca psule,extended release RxNorm: 949065 1 Capsule(s) PO daily TAKE 1 CAPSULE DAILY 05/27/2013 12/23/2013 Inactive Bydureon 2 mg subcut aneous extended release suspension RxNorm: 4062727 1 injection SQ QW 05/20/2013 07/13/2013 Inactive Lipitor 10 mg tablet RxNorm: 411848 Tablet(s) PO every other day 1 tablet qo d 05/20/2013 06/11/2013 In active Pen Needle 32 x 5/32" RxNorm: Miscellaneous use with byetta pen 05/07/2013 09/03/2013 Inactive Effexor XR 150 mg ca psule,extended release RxNorm: 565083 1 Capsule(s) PO daily TAKE 1 CAPSULE DAILY 05/07/2013 05/26/2013 Inactive Pen Needle 32 x 5/32" RxNorm: Miscellaneous use with byetta pen 05/06/2013 05/06/2013 Inactive Pen Needle 32 x 5/32" RxNorm: Miscellaneous use with byetta pen 05/06/2013 05/05/2013 Inactive Byetta 5 mcg/0.02 mL per dose Sub-Q Pen Injector RxNorm: 602123 1 Unit Dose SQ BID 04/29/2013 05/19/2013 In active metformin ER 500 mg tablet,extended release 24 hr RxNorm: 140867 1 Tablet(s) PO BID 04/28/2013 06/19/2013 In active Byetta 5 mcg/0.02 mL per dose Sub-Q Pen Injector RxNorm: 297323 1 Unit Dose SQ BID 04/28/2013 04/27/2013 In active Byetta 5 mcg/0.02 mL per dose Sub-Q Pen Injector RxNorm: 879718 1 Unit Dose SQ BID 04/28/2013 04/28/2013 In active Influenza Virus Vacc ine 0.5 mL RxNorm: IM 04/27/2013 04/27/2013 Inactive glyburide 2.5 mg tablet RxNorm: 811234 1 Tablet(s) PO BID 04/27/2013 04/27/2013 Inactive glyburide 2.5 mg tablet RxNorm: 610696 1/2 Tablet(s) PO daily 04/13/2013 04/26/2013 Inactive glyburide 2.5 mg tablet RxNorm: 301950 1 Tablet(s) PO daily 04/09/2013 04/12/2013 Inactive metformin ER 500 mg tablet,extended release 24 hr RxNorm: 079867 2 Tablet(s) PO BID 04/09/2013 04/27/2013 In active Lipitor 10 mg tablet RxNorm: 025907 Tablet(s) PO TAKE 1 TABLET AT BEDTIME 03/17/2013 05/19/2013 In active losartan 25 mg tablet RxNorm: 942533 1 Tablet(s) PO daily 02/12/2013 06/11/2013 Inactive montelukast 10 mg ta blet RxNorm: 822400 1 Tablet(s) PO daily 02/09/2013 02/08/2013 Inactive montelukast 10 mg ta blet RxNorm: 548307 1 Tablet(s) PO daily 02/09/2013 02/03/2014 Inactive losartan 25 mg tablet RxNorm: 024206 1 Tablet(s) PO daily 02/09/2013 02/11/2013 Inactive losartan 25 mg tablet RxNorm: 413155 1 Tablet(s) PO daily 01/26/2013 02/08/2013 Inactive Effexor XR 150 mg ca psule,extended release RxNorm: 779707 Capsule(s) PO TAKE 1 CAPSULE DAILY 12/24/2012 05/06/2013 Inactive metformin ER 500 mg tablet,extended release 24 hr RxNorm: 239121 Tablet(s) PO TAKE 2 TABLETS TWICE A DAY 12/24/2012 04/08/2013 Inactive pilocarpine 5 mg tablet RxNorm: 4177507 Tablet(s) PO TAKE 4 TABLETS DAILY 12/24/2012 01/31/2014 In active levofloxacin 500 mg tablet RxNorm: 391920 1 Tablet(s) PO daily 12/15/2012 12/19/2012 Inactive Nexium 40 mg capsule ,delayed release RxNorm: 012707 Capsule(s) PO daily T MILO 1 CAPSULE DAILY 11/03/2012 06/17/2013 Inactive Claritin-D 12 Hour 5 mg-120 mg tablet,extended release RxNorm: 2315520 1 Tablet(s) PO BID 10/29/2012 10/23/2013 Inactive TAKE 1 TABLET BY MOUTH TWICE DAILY fluticasone 50 mcg/a ctuation nasal spray,suspension RxNorm: 2250806 1 [place] NASAL BID 10/08/2012 06/17/2013 Inactive Claritin-D 12 Hour 5 mg-120 mg tablet,extended release RxNorm: 3286216 1 Tablet(s) PO BID 09/09/2012 2012 Inactive TAKE 1 TABLET BY MOUTH TWICE DAILY montelukast 10 mg ta blet RxNorm: 982410 1 Tablet(s) PO daily 08/20/2012 02/08/2013 Inactive Synthroid 50 mcg tablet RxNorm: 992242 Tablet(s) PO TAKE 1 TABLET DAILY 08/18/2012 09/20/2013 In active Nexium 40 mg capsule ,delayed release RxNorm: 025444 Capsule(s) PO TAKE 1 CAPSULE DAILY 08/18/2012 11/02/2012 Inactive furosemide 40 mg tablet RxNorm: 314297 Tablet(s) PO TAKE 1 TABLET DAILY 08/18/2012 09/20/2013 In active Klor-Con 10 mEq tabl et,extended release RxNorm: 946261 Tablet(s) PO TAKE 1 T ABLET DAILY 08/18/2012 12/01/2013 Inactive Xanax 0.5 mg tablet RxNorm: 599791 1 Tablet(s) PO Q6 PRN 07/17/2012 10/13/2015 Inactive Zithromax 250 mg tablet RxNorm: 593873 Tablet(s) PO 07/14/2012 11/10/2013 Inactive disp one z ankit fluticasone 50 mcg/a ctuation Nasal [place], Susp RxNorm: 0689039 1 [place] NASAL BID 06/27/2012 10/07/2012 In active Anusol-HC 25 mg Supp ository RxNorm: 0944211 1 Suppository RTL QD AY PRN 06/09/2012 12/22/2018 In active daily x 3 days then prnno longer than 10 days in row use Claritin-D 12 Hour 5 mg-120 mg tablet,extended release RxNorm: 6564220 1 Tablet(s) PO BID 05/22/2012 05/22/2012 Inactive TAKE 1 TABLET BY MOUTH TWICE DAILY Claritin-D 12 Hour 5 mg-120 mg tablet,extended release RxNorm: 8370726 Tablet(s) PO 05/12/2012 05/21/2012 In active TAKE 1 TABLET BY MOUTH TWICE DAILY fluticasone 50 mcg/a ctuation Nasal [place], Susp RxNorm: 6529669 1 [place] NASAL BID 05/06/2012 06/26/2012 In active Rocephin 500 mg Solu tion for Injection RxNorm: 9114786 Inj 01/1802/12/2012 Inactive metronidazole 500 mg Tab RxNorm: 575323 1 Tablet(s) PO TID 02/12/2012 02/18/2012 Inactive Kenalog 40 mg/mL Elizabeth p for Injection RxNorm: 6317994 Milliliter(s) Inj 02/12/2012 02/12/2012 In active fluticasone 50 mcg/a ctuation Nasal [place], Susp RxNorm: 3091350 1 [place] NASAL BID 02/12/2012 05/05/2012 In active cefdinir 300 mg Cap RxNorm: 732291 1 Capsule(s) PO BID 02/12/2012 02/21/2012 Inactive Effexor XR 150 mg ca psule,extended release RxNorm: 536369 1 Capsule(s) PO daily 12/17/2011 12/10/2012 In active metformin ER 500 mg tablet,extended release 24 hr RxNorm: 530941 2 Tablet(s) PO BID 12/17/2011 05/14/2012 In active pilocarpine 5 mg tablet RxNorm: 3947222 4 Tablet(s) PO daily 12/17/2011 03/15/2012 Inactive Singulair 10 mg Tab RxNorm: 793042 1 Tablet(s) PO daily 11/27/2011 08/19/2012 Inactive Nexium 40 mg capsule ,delayed release RxNorm: 062911 1 Capsule(s) PO daily 11/26/2011 03/24/2012 In active Claritin-D 12 Hour 5 mg-120 mg tablet,extended release RxNorm: 2777322 1 Tablet(s) PO BID 11/14/2011 05/11/2012 Inactive Claritin-D 12 Hour 5 mg-120 mg Tab RxNorm: 8891196 1 Tablet(s) PO BID 10/31/2011 11/13/2011 In active Claritin-D 12 Hour 5 mg-120 mg Tab RxNorm: 0666872 1 Tablet(s) PO BID 10/29/2011 2011 In active Claritin-D 12 Hour 5 mg-120 mg Tab RxNorm: 9313334 1 Tablet(s) PO BID 10/29/2011 10/30/2011 In active Claritin-D 24 Hour 1 0 mg-240 mg Tab RxNorm: 6692149 1 Tablet(s) PO daily 10/23/2011 2011 In active levofloxacin 500 mg Tab RxNorm: 987652 1 Tablet(s) PO daily 08/28/2011 09/03/2011 Inactive Nasonex 50 mcg/actua tion [place] RxNorm: 302951 1 [place] NASAL BID 08/28/2011 11/25/2011 Inactive promethazine 25 mg/m L Injection RxNorm: 557646 1 Milliliter(s) Inj 08/23/2011 07/14/2013 Inactive glyburide 2.5 mg tablet RxNorm: 547567 1 Tablet(s) PO daily 08/23/2011 04/08/2013 Inactive Rocephin 500 mg Solu tion for Injection RxNorm: 9031458 1 Milliliter(s) Inj 08/23/2011 08/28/2011 In active Klor-Con 10 10 mEq t ablet,extended release RxNorm: 326778 1 Tablet(s) PO daily 08/06/2011 07/30/2012 In active Nexium 40 mg Capsule , delayed release RxNorm: 284534 1 Capsule(s) PO daily 08/06/2011 11/25/2011 In active furosemide 40 mg tablet RxNorm: 752756 1 Tablet(s) PO daily 08/06/2011 07/30/2012 Inactive Cymbalta 30 mg Cap RxNorm: 134383 1 Capsule(s) PO daily 07/26/2011 08/28/2011 Inactive Synthroid 50 mcg tablet RxNorm: 798457 Tablet(s) PO 06/21/2011 08/17/2012 Inactive TAKE 1 TABLET DAILY Neurontin 100 mg Cap RxNorm: 234237 2 Capsule(s) PO TID 06/19/2011 08/28/2011 Inactive ciprofloxacin 500 mg Tab RxNorm: 235458 1 Tablet(s) PO BID 06/19/2011 08/28/2011 Inactive Neurontin 100 mg Cap RxNorm: 189078 1 Capsule(s) PO QID 06/05/2011 06/18/2011 Inactive oxazepam 10 mg Cap RxNorm: 870624 1 Capsule(s) PO Q6 PRN 06/05/2011 10/02/2011 Inactive Influenza Virus Vacc ine 0.5 mL RxNorm: IM 06/05/2011 06/05/2011 Inactive hydrocodone-acetamin ophen 5 mg-500 mg Tab RxNorm: 551157 1 Tablet(s) PO Q6 PRN No Start Date Active Fish Oil 1,000 mg Cap RxNorm: 2 Capsule(s) PO BID No Start Date Active Zenpep 40,000-136,00 0-218,000 unit capsule,delayed release RxNorm: 5247703 1 Capsule(s) PO QID No Start Date Active Multiple Vitamins ch ewable tablet RxNorm: 1 Tablet(s) PO daily No Start Date Active mesalamine 4 gram/60 mL enema RxNorm: 878479 1 Milliliter(s) RTL d aily No Start Date Active aspirin 81 mg Cap, D elayed Release RxNorm: 884751 1 Capsule(s) PO daily No Start Date Active Vitamin B-12 1,000 m cg Tab RxNorm: 589790 2 Tablet(s) PO daily No Start Date Active Vitamin C With Darlyn Hips 1,000 mg Tab RxNorm: 838137 1 Tablet(s) PO daily No Start Date Active Lipitor 10 mg Tab RxNorm: 474943 1 Tablet(s) PO HS No Start Date 04/10/2011 Inactive EnteraGam 5 gram ora l powder packet RxNorm: 1 PO daily No S tart Date 12/22/2018 Inactive Lipitor 20 mg Tab RxNorm: 847826 1 Tablet(s) PO HS No Start Date 08/28/2011 Inactive Zithromax 250 mg tablet RxNorm: 927117 Tablet(s) PO No Start Date 07/13/2012 Inactive disp one z ankit Effexor XR 150 mg 24 hr Cap RxNorm: 992970 1 Capsule(s) PO daily No Start Date 12/16/2011 Inactive Bydureon 2 mg/0.65 m L subcutaneous pen injector RxNorm: 7716023 Milliliter(s) SQ QW No Start Date 10/13/2015 Inactive Centrum Ultra Women' s 18 mg-400 mcg Tab RxNorm: 1 Tablet(s) PO daily No Start Date 12/22/2018 Inactive furosemide 40 mg Tab RxNorm: 818378 1 Tablet(s) PO daily No Start Date 08/05/2011 Inactive Synthroid 25 mcg tablet RxNorm: 592990 1 Tablet(s) PO daily No Start Date 12/01/2013 Inactive Januvia 50 mg tablet RxNorm: 770578 1 Tablet(s) PO daily samples No Start Date 04/27/2013 Inactive Lipitor 10 mg tablet RxNorm: 264351 1 Tablet(s) PO daily No Start Date 03/16/2013 Inactive Crestor 10 mg tablet RxNorm: 183773 1 Tablet(s) PO QHS No Start Date 03/25/2016 Inactive Asacol HD 800 mg Tab RxNorm: 236599 2 Tablet(s) PO daily No Start Date 10/13/2015 Inactive pilocarpine 5 mg Tab RxNorm: 0372986 4 Tablet(s) PO daily No Start Date 12/16/2011 Inactive glyburide 2.5 mg Tab RxNorm: 238176 1 Tablet(s) PO BID No Start Date 08/22/2011 Inactive Claritin-D 24 Hour 1 0 mg-240 mg Tab RxNorm: 2895654 1 Tablet(s) PO daily No Start Date 10/22/2011 Inactive Vitamin D 1,000 unit Tab RxNorm: 180391 1 Tablet(s) PO daily No Start Date 10/13/2015 Inactive Tricor 145 mg Tab RxNorm: 463706 1 Tablet(s) PO daily No Start Date 10/14/2015 Inactive Zithromax Z-Ankit 250 mg tablet RxNorm: 460154 1 Tablet(s) PO UD No Start Date 11/06/2016 Inactive Synthroid 25 mcg tablet RxNorm: 146458 1 Tablet(s) PO daily No Start Date 05/01/2017 Inactive Claritin-D 12 Hour 5 mg-120 mg tablet,extended release RxNorm: 0447966 1 Tablet(s) PO BID No Start Date 12/23/2013 Inactive Singulair 10 mg Tab RxNorm: 335285 1 Tablet(s) PO daily No Start Date 11/26/2011 Inactive Linzess 290 mcg capsule RxNorm: 2178390 1 Capsule(s) PO daily No Start Date 12/22/2018 Inactive Calcium 600 + D(3) 6 00 mg (1,500)-200 unit Tab RxNorm: 610966 1 Tablet(s) PO daily No Start Date 10/13/2015 Inactive Lialda 1.2 gram tabl et,delayed release RxNorm: 731845 2 Tablet(s) PO daily No Start Date 09/17/2016 Inactive Effexor XR 150 mg 24 hr Cap RxNorm: 815702 1 Capsule(s) PO daily No Start Date 08/28/2011 Inactive aspirin 325 mg Tab RxNorm: 241919 1 Tablet(s) PO daily No Start Date 08/28/2011 Inactive Toprol XL 25 mg tabl et,extended release RxNorm: 479520 1 Tablet(s) PO daily No Start Date 06/11/2013 Inactive lisinopril 10 mg tablet RxNorm: 577713 1 Tablet(s) PO daily No Start Date 01/25/2013 Inactive Cymbalta 60 mg Cap RxNorm: 216270 1 Capsule(s) PO daily No Start Date 08/28/2011 Inactive Nexium 40 mg Cap RxNorm: 186762 1 Capsule(s) PO daily No Start Date 08/05/2011 Inactive dicyclomine 10 mg Cap RxNorm: 183201 1 Capsule(s) PO daily No Start Date 07/13/2013 Inactive Synthroid 50 mcg Tab RxNorm: 820346 1 Tablet(s) PO daily No Start Date 06/20/2011 Inactive metformin ER 500 mg 24 hr Tab RxNorm: 680373 2 Tablet(s) PO BID No Start Date 12/16/2011 Inactive Anusol-HC 25 mg Supp ository RxNorm: 5463006 1 Suppository RTL No Start Date 06/08/2012 Inactive daily x 3 days then prnno longer than 10 days in row use Medication Administered Medication Codes Instruc tions Start Date Status Kenalog 40 mg/mL suspension for injection RxNorm: 7813469 Milliliter 12/23/2018 No longer Active Kenalog 40 mg/mL suspension for injection RxNorm: 9431291 1Milliliter 05/26/2018 N o longer Active Influenza Virus Vaccine 0.5 mL RxNorm: 04/27/2013 No longer Active Rocephin 500 mg Solution for Injection RxNorm: 6868275 02/12/2012 No longer A ctive Kenalog 40 mg/mL Susp for Injection RxNorm: 3335078 Milliliter 02/12/2012 No longer Active Influenza Virus Vaccine 0.5 mL RxNorm: 06/05/2011 No longer Active Immunizations Vaccine Codes Date Status Influenza CVX: 141 05/02 completed Pneumococcal (Adult) CVX: 133 05/02/2017 completed Influenza CVX: 141 05/06 completed Influenza CVX: 141 04/27 completed Influenza CVX: 141 08/28 completed Influenza CVX: 141 06/05 completed Pneumococcal CVX: 33 completed Assessments Condition Codes Effectiv e Dates Pain in thoracic spine ICD-10: M54.6 ICD-9: [...] Visit Reason For Visit Effective Dates Notes back pain 12/23/2018 cough 06/12/2018 cough 05/26/2018 [...] Code Item Item Code Result Date %Hba1C Fxn342 % HbA1c 40101-3 6.6 % 04/01/2018 %Hba1C Tvk035 Gluc Ave 143 mg/dL 04/01/2018 Lipid Ord30 CHOL 178 mg/dL 04/01/2018 Lipid Ord30 HDL 50.0 mg/dl 04/01/2018 Lipid Ord30 TRIG 221 mg/dL 04/01/2018 Lipid Ord30 LDL 84 mg/dL 04/01/2018 Lipid Ord30 C/HDL 3.6 Ratio 04/01/2018 %Hba1C Sng171 % HbA1c 09794-8 6.7 % 11/25/2017 %Hba1C Swz332 Gluc Ave 146 mg/dL 11/25/2017 Comp Metabolic Und900 NA 144 mEq/L 04/30/2017 Comp Metabolic Elh786 K 4.3 mEq/L 04/30/2017 Comp Metabolic Pnp140 CL 105 mEq/L 04/30/2017 Comp Metabolic Xfp004 CO2 29.0 mEq/L 04/30/2017 Comp Metabolic Rnw609 AN ION GAP 14 04/30/2017 Comp Metabolic Ehe933 GL UCOSE 109 mg/dL 04/30/2017 Comp Metabolic Ojb785 Cr eat 1.0 mg/dL 04/30/2017 Comp Metabolic Dep962 eG FR 58 ml/min/1.73m2 04/30 Comp Metabolic Iwq618 BUN 17 mg/dL 04/30/2017 Comp Metabolic Not088 B/ C Ratio 17.3 Ratio 04/30/2017 Comp Metabolic Xtk941 CA LCIUM 10.1 mg/dL 04/30/2017 Comp Metabolic Fex520 AL K PHOS 47 U/L 04/30/2017 Comp Metabolic Kmu213 T(SGOT) 16 U/L 04/30/2017 Comp Metabolic Yas855 AL T(SGPT) 16 U/L 04/30/2017 Comp Metabolic Pqn125 BI LI T 0.4 mg/dL 04/30/2017 Comp Metabolic Iim954 AL BUMIN 4.5 g/dL 04/30/2017 Comp Metabolic Gcu039 TP RO 6.7 g/dL 04/30/2017 Comp Metabolic Xzb782 GL OB 2.2 g/dL 04/30/2017 Comp Metabolic Eqq673 A/ G Ratio 2.0 Ratio 04/30/2017 Comp Metabolic Zgf785 Os mo 289 mOsmo 04/30/2017 Cbc With [...] 28.2 pg 04/30/2017 Cbc With Differential Ord2 Placer% 6.5 % 04/30/2017 Cbc With Differential Ord2 [...] 1.12 K/ul 04/30/2017 Cbc With Differential Ord2 Placer ABS# 0.2 K/ul 04/30/2017 Cbc With Differential Ord2 Eos ABS# 0.1 K/ul 04/30/2017 Cbc With Differential Ord2 Baso ABS# 0.0 K/ul 04/30/2017 %Hba1C Xsm812 % HbA1c 41441-2 6.7 % 04/30/2017 %Hba1C Buq616 Gluc Ave 146 mg/dL 04/30/2017 Tsh Ord6 hTSH II 1.36 uIU/mL 04/30/2017 Lipid Ord30 CHOL 160 mg/dL 04/30/2017 Lipid Ord30 HDL 51.0 mg/dl 04/30/2017 Lipid Ord30 TRIG 195 mg/dL 04/30/2017 Lipid Ord30 LDL 70 mg/dL 04/30/2017 Lipid Ord30 C/HDL 3.1 Ratio 04/30/2017 Free T4 Vok198 FREE T4 0.75 ng/dL 04/30/2017 Ferritin Ord22 FERRITIN 89.9 ng/mL 11/09/2016 Parathyroid Hormone Epw144 PTH 36.20 pg/ml 11/09/2016 Tibc Ord40 Iron 75 ug/dl 11/08/2016 Tibc Ord40 UIBC 325 ug/dL 11/08/2016 Tibc Ord40 TIBC 400 ug/dL 11/08/2016 Tibc Ord40 Fe-%Sat 18.8 % 11/08/2016 Comp Metabolic Aqk997 NA 139 mEq/L 09/25/2016 Comp Metabolic Zgg708 K 4.3 mEq/L 09/25/2016 Comp Metabolic Zpq877 CL 101 mEq/L 09/25/2016 Comp Metabolic Rnm616 CO2 31.0 mEq/L 09/25/2016 Comp Metabolic Ywp019 AN ION GAP 11 09/25/2016 Comp Metabolic Sjs718 GL UCOSE 116 mg/dL 09/25/2016 Comp Metabolic Vjg501 Cr eat 1.1 mg/dL 09/25/2016 Comp Metabolic Fvj226 eG FR 53 ml/min/1.73m2 09/25 Comp Metabolic Gix025 BUN 22 mg/dL 09/25/2016 Comp Metabolic Xxp863 B/ C Ratio 20.8 Ratio 09/25/2016 Comp Metabolic Fxh638 CA LCIUM 10.3 mg/dL 09/25/2016 Comp Metabolic Yxj282 AL K PHOS 52 U/L 09/25/2016 Comp Metabolic Maz310 T(SGOT) 16 U/L 09/25/2016 Comp Metabolic Yex446 AL T(SGPT) 17 U/L 09/25/2016 Comp Metabolic Avo819 BI LI T 0.3 mg/dL 09/25/2016 Comp Metabolic Ikf101 AL BUMIN 4.7 g/dL 09/25/2016 Comp Metabolic Bsx058 TP RO 6.9 g/dL 09/25/2016 Comp Metabolic Opd205 GL OB 2.2 g/dL 09/25/2016 Comp Metabolic Dfy038 A/ G Ratio 2.1 Ratio 09/25/2016 Comp Metabolic Dpe816 Os mo 282 mOsmo 09/25/2016 Lipid Ord30 CHOL 182 mg/dL 09/25/2016 Lipid Ord30 HDL 55.0 mg/dl 09/25/2016 Lipid Ord30 TRIG 168 mg/dL 09/25/2016 Lipid Ord30 LDL 93 mg/dL 09/25/2016 Lipid Ord30 C/HDL 3.3 Ratio 09/25/2016 %Hba1C Cjf363 % HbA1c 08174-9 7.0 % 09/25/2016 %Hba1C Tat844 Gluc Ave 154 mg/dL 09/25/2016 Free T4 Iqw404 FREE T4 0.80 ng/dL 09/25/2016 Cbc With [...] 28.3 pg 09/25/2016 Cbc With Differential Ord2 Placer% 8.2 % 09/25/2016 Cbc With Differential Ord2 [...] 1.29 K/ul 09/25/2016 Cbc With Differential Ord2 Placer ABS# 0.3 K/ul 09/25/2016 Cbc With Differential Ord2 Eos ABS# 0.0 K/ul 09/25/2016 Cbc With Differential Ord2 Baso ABS# 0.0 K/ul 09/25/2016 Tsh Ord6 hTSH II 1.01 uIU/mL 09/25/2016 Tsh Ord6 hTSH II 1.35 uIU/mL 06/04/2016 Comp Metabolic Iaf004 NA 135 mEq/L 06/04/2016 Comp Metabolic Clm510 K 3.8 mEq/L 06/04/2016 Comp Metabolic Zef099 CL 99 mEq/L 06/04/2016 Comp Metabolic Pby092 CO2 30.0 mEq/L 06/04/2016 Comp Metabolic Ceq754 AN ION GAP 10 06/04/2016 Comp Metabolic Omr276 GL UCOSE 171 mg/dL 06/04/2016 Comp Metabolic Awz023 Cr eat 1.0 mg/dL 06/04/2016 Comp Metabolic Esh674 eG FR 59 ml/min/1.73m2 06/04 Comp Metabolic Irv321 BUN 22 mg/dL 06/04/2016 Comp Metabolic Slh332 B/ C Ratio 22.4 Ratio 06/04/2016 Comp Metabolic Tot380 CA LCIUM 10.4 mg/dL 06/04/2016 Comp Metabolic Mod063 AL K PHOS 68 U/L 06/04/2016 Comp Metabolic Wzq091 T(SGOT) 22 U/L 06/04/2016 Comp Metabolic Wfx374 AL T(SGPT) 25 U/L 06/04/2016 Comp Metabolic Eey016 BI LI T 0.4 mg/dL 06/04/2016 Comp Metabolic Owp693 AL BUMIN 4.5 g/dL 06/04/2016 Comp Metabolic Xti878 TP RO 7.0 g/dL 06/04/2016 Comp Metabolic Qyc410 GL OB 2.5 g/dL 06/04/2016 Comp Metabolic Afm850 A/ G Ratio 1.8 Ratio 06/04/2016 Comp Metabolic Gty986 Os mo 277 mOsmo 06/04/2016 Cbc With [...] 29.1 pg 06/04/2016 Cbc With Differential Ord2 Placer% 7.9 % 06/04/2016 Cbc With Differential Ord2 [...] 1.58 K/ul 06/04/2016 Cbc With Differential Ord2 Placer ABS# 0.5 K/ul 06/04/2016 Cbc With Differential Ord2 Eos ABS# 0.1 K/ul 06/04/2016 Cbc With Differential Ord2 Baso ABS# 0.1 K/ul 06/04/2016 %Hba1C Myd285 % HbA1c 89843-1 8.7 % 06/04/2016 %Hba1C Lfy441 Gluc Ave 203 mg/dL 06/04/2016 Free T4 Emu991 FREE T4 0.84 ng/dL 06/04/2016 Lipid Ord30 CHOL 111 mg/dL 06/04/2016 Lipid Ord30 HDL 51.0 mg/dl 06/04/2016 Lipid Ord30 TRIG 185 mg/dL 06/04/2016 Lipid Ord30 LDL 23 mg/dL 06/04/2016 Lipid Ord30 C/HDL 2.2 Ratio 06/04/2016 Microalbumin Mrv118 Micr oAlb <0.7 mg/dL 06/04/2016 Comp Metabolic Jzv963 NA 142 mEq/L 03/12/2016 Comp Metabolic Vic228 K 4.1 mEq/L 03/12/2016 Comp Metabolic Mft561 CL 103 mEq/L 03/12/2016 Comp Metabolic Mgs439 CO2 30.0 mEq/L 03/12/2016 Comp Metabolic Nrr514 AN ION GAP 13 03/12/2016 Comp Metabolic Xdf068 GL UCOSE 138 mg/dL 03/12/2016 Comp Metabolic Qds306 Cr eat 0.8 mg/dL 03/12/2016 Comp Metabolic Njg091 eG FR 75 ml/min/1.73m2 03/12 Comp Metabolic Ntw918 BUN 18 mg/dL 03/12/2016 Comp Metabolic Qgj046 B/ C Ratio 22.8 Ratio 03/12/2016 Comp Metabolic Unk029 CA LCIUM 9.8 mg/dL 03/12/2016 Comp Metabolic Kxo967 AL K PHOS 83 U/L 03/12/2016 Comp Metabolic Msq944 T(SGOT) 15 U/L 03/12/2016 Comp Metabolic Ltf131 AL T(SGPT) 20 U/L 03/12/2016 Comp Metabolic Izl010 BI LI T 0.4 mg/dL 03/12/2016 Comp Metabolic Oqw412 AL BUMIN 4.2 g/dL 03/12/2016 Comp Metabolic Jac319 TP RO 6.4 g/dL 03/12/2016 Comp Metabolic Cdy446 GL OB 2.2 g/dL 03/12/2016 Comp Metabolic Zfl101 A/ G Ratio 1.9 Ratio 03/12/2016 Comp Metabolic Ngc616 Os mo 287 mOsmo 03/12/2016 %Hba1C Kuz174 % HbA1c 29606-8 7.2 % 03/12/2016 %Hba1C Vhu569 Gluc Ave 160 mg/dL 03/12/2016 Comp Metabolic Xxz936 NA 138 mEq/L 10/18/2015 Comp Metabolic Sdp592 K 4.1 mEq/L 10/18/2015 Comp Metabolic Rts287 CL 97 mEq/L 10/18/2015 Comp Metabolic Iwz522 CO2 32.0 mEq/L 10/18/2015 Comp Metabolic Ziy627 AN ION GAP 13 10/18/2015 Comp Metabolic Vnd376 GL UCOSE 145 mg/dL 10/18/2015 Comp Metabolic Hqa763 Cr eat 1.1 mg/dL 10/18/2015 Comp Metabolic Bzh063 eG FR 50 ml/min/1.73m2 10/17 Comp Metabolic Cth993 BUN 23 mg/dL 10/18/2015 Comp Metabolic Xrg554 B/ C Ratio 20.4 Ratio 10/18/2015 Comp Metabolic Emb610 CA LCIUM 10.3 mg/dL 10/18/2015 Comp Metabolic Kbw025 AL K PHOS 59 U/L 10/18/2015 Comp Metabolic Xgh627 T(SGOT) 17 U/L 10/18/2015 Comp Metabolic Qhn222 AL T(SGPT) 21 U/L 10/18/2015 Comp Metabolic Fdt418 BI LI T 0.4 mg/dL 10/18/2015 Comp Metabolic Gwq951 AL BUMIN 4.6 g/dL 10/18/2015 Comp Metabolic Pmb790 TP RO 7.1 g/dL 10/18/2015 Comp Metabolic Psq622 GL OB 2.5 g/dL 10/18/2015 Comp Metabolic Muq377 A/ G Ratio 1.9 Ratio 10/18/2015 Comp Metabolic Brk401 Os mo 282 mOsmo 10/18/2015 Tsh Ord6 hTSH II 1.81 uIU/mL 10/18/2015 %Hba1C Xxk449 % HbA1c 28693-0 7.3 % 10/18/2015 %Hba1C Vjy799 Gluc Ave 163 mg/dL 10/18/2015 Iron Ord72 Iron 90 ug/dl 10/18/2015 Free T4 Tus323 FREE T4 0.75 ng/dL 10/18/2015 Cbc With [...] 29.0 pg 10/18/2015 Cbc With Differential Ord2 Placer% 6.8 % 10/18/2015 Cbc With Differential Ord2 [...] 1.93 K/ul 10/18/2015 Cbc With Differential Ord2 Placer ABS# 0.5 K/ul 10/18/2015 Cbc With Differential [...] Lipid Ord30 C/HDL 2.3 Ratio 10/18/2015 TSH 8698768 TSH 1.042 uIU/ML 12/24/2012 A1C HPLC 6283192 A1C HPLC 22139-7 7.6 % 12/24/2012 ESR 0128912 ESR 2 MM/HR 12/23/2012 CHEM 14 7027244 AST 20 U/L 12/23/2012 CHEM 14 3901618 ALT 24 IU/L 12/23/2012 CHEM 14 2097223 BUN 16 MG/DL 12/23/2012 CHEM 14 7945869 ALBUMIN 4.7 GM/DL 12/23/2012 CHEM 14 1291975 CHLORIDE 102 MMOL/L 12/23/2012 CHEM 14 7942784 BILI TOT 0.3 MG/DL 12/23/2012 CHEM 14 7503564 ALK PHOS 109 U/L 12/23/2012 CHEM 14 8462065 SODIUM 142 MMOL/L 12/23/2012 CHEM 14 1124684 CREATINI NE 0.93 MG/DL 12/23/2012 CHEM 14 9967821 CALCIUM 10.0 MG/DL 12/23/2012 CHEM 14 2517820 POTASSIUM 3.7 MMOL/L 12/23/2012 CHEM 14 3965605 PROT TOT 7.2 GM/DL 12/23/2012 CHEM 14 3955263 GLUCOSE 116 MG/DL 12/23/2012 CHEM 14 6447060 BICARB 32 MMOL/L 12/23/2012 CHEM 14 7590517 ANION GAP 8 MEQ/L 12/23/2012 GFR CALC 9968486 GFR AA >60 ML/MIN 12/23/2012 GFR CALC 8875351 GFR NON -AA 59.0L ML/MIN 3 CBC 7661253 WBC 5.5 10e9/L 12/23/2012 CBC 7197788 RBC 4.90 10e12/L 12/23/2012 CBC 0685471 HGB 14.1 g/dL 12/23/2012 CBC 0211647 HCT DET 42.4 % 12/23/2012 CBC 0529077 MCV 86.5 fL 12/23/2012 CBC 1144916 MCH 28.8 pg 12/23/2012 CBC 6309028 MCHC 33.3 g/dL 12/23/2012 CBC 2665145 PLT 320 10e9/L 12/23/2012 CBC 4617733 MPV 9.9 fL 12/23/2012 CBC 4947039 BRANDIE % 63.7 % 12/23/2012 CBC 1732858 LY % 24.6 % 12/23/2012 CBC 7774303 MON % 6.3 % 12/23/2012 CBC 6904562 EOS % 4.7 % 12/23/2012 CBC 1222286 BASO % 0.7 % 12/23/2012 CBC 2358204 RDW 15.0 % 12/23/2012 CBC 5202464 ABS BRANDIE 3.50 10e9/L 12/23/2012 CBC 8172116 ABS LYMPH 1.35 10e9/L 12/23/2012 CBC 0055028 ABS MONO 0.35 10e9/L 12/23/2012 CBC 5682587 ABS EOS 0.26 10e9/L 12/23/2012 CBC 8501558 ABS BASO 0.04 10e9/L 12/23/2012 CBC 9646464 RDW-SD 47.1 fL 12/23/2012 CRP 20071212 CRP 0.1 MG/DL 12/23/2012 URINALYSIS NONAUTO W/O SCOPE 78785 Specific [place] 1.005 DateTime(Free Text in ) URINALYSIS NONAUTO W/O SCOPE 01340 PH 7.5 DateTime(Free Mina t in Apr) URINALYSIS NONAUTO W/O SCOPE 81729 GLUCOSE NEG DateTime(Free Mina t in ) URINALYSIS NONAUTO W/O SCOPE 88610 Protein NEG DateTime(Free Mina t in Apr) URINALYSIS NONAUTO W/O SCOPE 83986 Blood NEG DateTime(Free Mina t in Apr) URINALYSIS NONAUTO W/O SCOPE 97733 Bilirubin NEG DateTime(Free Mina t in ) URINALYSIS NONAUTO W/O SCOPE 81359 Ketones NEG DateTime(Free Mina t in ) URINALYSIS NONAUTO W/O SCOPE 67014 Urobilinogen NEG DateTime(Free Text in ) URINALYSIS NONAUTO W/O SCOPE 06003 Nitrite NEG DateTime(Free Mina t in ) URINALYSIS NONAUTO W/O SCOPE 16918 Leukocytes NEG DateTime(Free Text in ) Review of Systems System Result Effective Dates Constitutional No recent illness 12/23/2018 Constitutional No [...] facial 11/25/2017 Neurologic No syncope Psychiatric anxiety 04/0 04/2018 Psychiatric depression 0 11/25/2017 Endocrine diabetes mellitus [...] rash 01/2011 Dermatologic No sores Psychiatric anxiety 120 01/2011 Musculoskeletal arthralgia(s) 07/24/2011 Musculoskeletal myalgias 07/24/2011 [...] sounds 07/14/2013 None Full Exam - General 1995 Musculoskeletal [...] tenderness 06/12/2013 None Full Exam - General 1995 Abdomen abdominal exam Overall: normal bowel sounds 06/12/2013 None Full Exam - General 1995 Musculoskeletal [...] masses 05/20/2013 None Full Exam - General 1995 [...] 1994 Ears/Nose/Throat oral cavity/pharynx/larynx Overall: no masses 04/09/2013 [...] intact 01/26/2013 None Full Exam - General 1995 [...] affect 12/23/2012 None Full Exam - General 1995 [...] 1994 Ears/Nose/Throat oral cavity/pharynx/larynx Overall: no masses 12/23/2012 [...] accomodation 10/22/2012 None Full Exam - General 1994 Ears/Nose/Throat otoscopic exam Overall: external auditory canals clear 10/22/2012 None Full Exam - General 1994 Ears/Nose/Throat otoscopic exam Overall: tympanic membranes clear 10/22/2012 None Full Exam - General 1994 Ears/Nose/Throat [...] rate 10/22/2012 None Full Exam - General 1995 Cardiovascular auscultation of heart Overall: regular rate 10/22/2012 None Full Exam - General 1995 Cardiovascular auscultation of heart Overall: normal heart sounds 10/22/2012 None Full Exam - General 1995 Cardiovascular [...] unsteadiness 10/22/2012 None Full Exam - General 1995 [...] masses 08/21/2012 None Full Exam - General 1995 [...] rate 08/28/2011 None Full Exam - General 1994 Cardiovascular auscultation of heart Overall: regular rate 08/28/2011 None Full Exam - General 1994 Cardiovascular auscultation of heart Overall: normal heart sounds 08/28/2011 None Full Exam - General 1994 [...] impaction 08/23/2011 None Full Exam - General 1995 Psychiatric [...] 08/23/2011 None Full Exam - General 1995 Respiratory respiratory effort/rhythm Overall: normal rate 08/23/2011 [...] time 08/23/2011 None Full Exam - General 1995 Constitutional general appearance Overall: well nourished 07/24/2011 [...] Procedure Codes Date THER/PROPH/DIAG INJ SC/IM CPT-4: 09347 12/23/2018 TRIAMCINOLONE ACET I [place] NOS CPT-4: J3301 12/23/2018 THER/PROPH/DIAG INJ SC/IM CPT-4: 28444 05/26/2018 TRIAMCINOLONE ACET I [place] NOS CPT-4: J3301 05/26/2018 FLU VAC NO PRSV 4 VA L 3 YRS+ CPT-4: 34117 05/02/2017 ADMIN INFLUENZA VIRU S VAC CPT-4: G0008 05/02/2017 ADMIN PNEUMOCOCCAL V ACCINE SNOMED CT: 19031221 CPT-4: G0009 05/02/2017 PNEUMOCOCCAL VACC [address]: 24938930 CPT-4: 07506 05/02/2017 FLU VAC NO PRSV 4 VA L 3 YRS+ CPT-4: 12651 05/06/2014 ADMIN PNEUMOCOCCAL V ACCINE SNOMED CT: 80253033 CPT-4: G0009 05/06/2014 PRESCRIP TRANSMIT A ERX SY CPT-4: G8553 06/12/2013 PRESCRIP TRANSMIT A ERX SY CPT-4: G8553 05/20/2013 ADMIN INFLUENZA VIRU S VAC CPT-4: G0008 04/27/2013 FLULAVAL VACC, 3 YRS & >, IM CPT-4: Q2036 04/27/2013 PRESCRIP TRANSMIT A ERX SY CPT-4: G8553 04/09/2013 PRESCRIP TRANSMIT A ERX SY CPT-4: G8553 01/26/2013 ROUTINE VENIPUNCTURE CPT-4: 63165 12/23/2012 PRESCRIP TRANSMIT A ERX SY CPT-4: G8553 06/09/2012 ROCEPHIN, PER 250 MG CPT-4: J0696 02/12/2012 TRIAMCINOLONE ACET I [place] NOS CPT-4: J3301 02/12/2012 PRESCRIP TRANSMIT A ERX SY CPT-4: G8553 02/12/2012 ROCEPHIN, PER 250 MG CPT-4: J0696 02/05/2012 URINALYSIS NONAUTO W /O SCOPE CPT-4: 58300 11/14/2011 REMOVE IMPACTED EAR WAX UNI CPT-4: 03462 08/28/2011 PRESCRIP TRANSMIT A ERX SY CPT-4: G8553 08/28/2011 ROCEPHIN, PER 250 MG CPT-4: J0696 08/23/2011 TRIAMCINOLONE ACET I [place] NOS CPT-4: J3301 08/23/2011 THER/PROPH/DIAG INJ SC/IM CPT-4: 09711 08/23/2011 PRESCRIP TRANSMIT A ERX SY CPT-4: G8553 08/23/2011 OCCULT BLOOD FECES CPT- 4: 53287 06/19/2011 URINALYSIS NONAUTO W /O SCOPE CPT-4: 17684 06/19/2011 PRESCRIP TRANSMIT A ERX SY CPT-4: G8553 06/19/2011 ADMIN INFLUENZA VIRU S VAC CPT-4: G0008 06/05/2011 FLULAVAL VACC, 3 YRS & >, IM CPT-4: Q2036 06/05/2011 Vital Signs Date Vital 12/23/2018 Blood Pressure 1: 150/82 Code: 8480-6 Heart Rate 1: 89 bpm Height: SpO2: 95% Weight: 06/12/2018 Blood Pressure 1: 142/68 Code: 8480-6 BMI: 30.0 Code: 58455-3 Heart Rate 1: 91 bpm Height: 5'3" SpO2: 96% Weight: 172 lbs 05/26/2018 Blood Pressure 1: 142/72 Code: 8480-6 BMI: 30.0 Code: 16793-4 Heart Rate 1: 92 bpm Height: 5'3" SpO2: 96% Weight: 172 lbs 04/01/2018 Blood Pressure 1: 120/58 Code: 8480-6 BMI: 29.1 Code: 56138-0 Heart Rate 1: 83 bpm Height: 5'3" Respiratory Rate: 18 bpm SpO2: 95% Weight: 167 lbs 11/25/2017 Blood Pressure 1: 128/58 Code: 8480-6 BMI: 29.8 Code: 82583-3 Heart Rate 1: 83 bpm Height: 5'3" SpO2: 99% Weight: 171 lbs 09/18/2017 Blood Pressure 1: 140/72 Code: 8480-6 BMI: 30.3 Code: 08318-1 Heart Rate 1: 99 bpm Height: 5'3" SpO2: 97% Weight: 174 lbs 05/02/2017 Blood Pressure 1: 122/64 Code: 8480-6 BMI: 29.5 Code: 61993-6 Heart Rate 1: 81 bpm Height: 5'3" SpO2: 97% Weight: 169 lbs 03/29/2017 Blood Pressure 1: 134/68 Code: 8480-6 BMI: 30.0 Code: 64375-5 Heart Rate 1: 89 bpm Height: 5'3" SpO2: 98% Weight: 172 lbs 11/15/2016 Blood Pressure 1: 148/72 Code: 8480-6 BMI: 29.5 Code: 96387-2 Heart Rate 1: 102 bpm Height: 5'3" SpO2: 98% Weight: 169 lbs 11/06/2016 Blood Pressure 1: 140/78 Code: 8480-6 BMI: 29.8 Code: 17442-9 Heart Rate 1: 100 bpm Height: 5'3" SpO2: 97% Weight: 171 lbs 08/01/2016 Blood Pressure 1: 128/56 Code: 8480-6 BMI: 30.3 Code: 31936-1 Heart Rate 1: 88 bpm Height: 5'3" SpO2: 97% Weight: 174 lbs 07/02/2016 Blood Pressure 1: 126/62 Code: 8480-6 BMI: 31.0 Code: 31616-3 Heart Rate 1: 101 bpm Height: 5'3" SpO2: 97% Weight: 178 lbs 06/04/2016 Blood Pressure 1: 136/72 Code: 8480-6 BMI: 31.4 Code: 94823-0 Heart Rate 1: 103 bpm Height: 5'3" SpO2: 98% Weight: 180 lbs 03/26/2016 Blood Pressure 1: 134/74 Code: 8480-6 BMI: 30.7 Code: 14803-1 Heart Rate 1: 93 bpm Height: 5'3" SpO2: 98% Weight: 176 lbs 11/23/2015 Blood Pressure 1: 128/77 Code: 8480-6 BMI: 30.2 Code: 34531-9 Heart Rate 1: 74 bpm Height: 5'3" SpO2: 96% Weight: 173 lbs 10/14/2015 Blood Pressure 1: 122/72 Code: 8480-6 BMI: 30.3 Code: 25157-1 Heart Rate 1: 76 bpm Height: 5'3" SpO2: 97% Weight: 174 lbs 03/31/2015 Blood Pressure 1: 140/68 Code: 8480-6 BMI: 30.0 Code: 19046-3 Heart Rate 1: 93 bpm Height: 5'3" SpO2: 94% Weight: 172 lbs 08/31/2014 Blood Pressure 1: 122/74 Code: 8480-6 BMI: 31.2 Code: 03103-3 Heart Rate 1: 76 bpm Height: 5'3" Weight: 179 lbs 08/10/2014 Blood Pressure 1: 138/62 Code: 8480-6 BMI: 31.0 Code: 26082-9 Heart Rate 1: 80 bpm Height: 5'3" Weight: 178 lbs 05/06/2014 BMI: 31.2 Code: 78679-5 Height: 5'3" Weight: 179 lbs 04/14/2014 Blood Pressure 1: 136/68 Code: 8480-6 BMI: 31.4 Code: 35352-0 Heart Rate 1: 74 bpm Height: 5'3" Weight: 180 lbs 11/10/2013 Blood Pressure 1: 102/50 Code: 8480-6 BMI: 30.7 Code: 57828-1 Heart Rate 1: 76 bpm Height: 5'3" Weight: 176 lbs 07/14/2013 Blood Pressure 1: 136/80 Code: 8480-6 BMI: 30.3 Code: 16428-2 Heart Rate 1: 70 bpm Height: 5'3" Weight: 174 lbs 06/12/2013 Blood Pressure 1: 142/82 Code: 8480-6 BMI: 30.9 Code: 32553-9 Heart Rate 1: 72 bpm Height: 5'3" Weight: 177 lbs 05/20/2013 Blood Pressure 1: 132/70 Code: 8480-6 BMI: 31.2 Code: 28560-7 Heart Rate 1: 88 bpm Height: 5'3" Weight: 179 lbs 04/09/2013 Blood Pressure 1: 136/70 Code: 8480-6 BMI: 31.0 Code: 82219-6 Heart Rate 1: 100 bpm Height: 5'3" Weight: 178 lbs 01/26/2013 Blood Pressure 1: 118/56 Code: 8480-6 BMI: 30.7 Code: 82396-4 Heart Rate 1: 87 bpm Height: 5'3" Weight: 176 lbs 12/23/2012 Blood Pressure 1: 136/76 Code: 8480-6 Heart Rate 1: 104 bpm Respiratory Rate: 20 bpm Weight: 178 lbs 12/15/2012 Blood Pressure 1: 150/82 Code: 8480-6 Heart Rate 1: 100 bpm Temperature: 36.7 (C) / 98.1 (F) Weight: 178 lbs 10/22/2012 Blood Pressure 1: 138/82 Code: 8480-6 BMI: 30.2 Code: 19812-3 Heart Rate 1: 100 bpm Height: 5'3" Weight: 173 lbs 08/21/2012 Blood Pressure 1: 136/70 Code: 8480-6 BMI: 30.6 Code: 66762-2 Heart Rate 1: 98 bpm Height: 5'3" Weight: 175 lbs 8 oz 07/17/2012 Blood Pressure 1: 152/68 Code: 8480-6 BMI: 29.9 Code: 05827-5 Heart Rate 1: 92 bpm Height: 5'3" [...] 1: 122/68 Code: 8480-6 BMI: 29.5 Code: 83809-5 Heart Rate 1: 96 bpm Height: 5'3" [...] 1: 130/72 Code: 8480-6 BMI: 30.4 Code: 35999-1 Heart Rate 1: 92 bpm Height: 5'3" Respiratory Rate: 16 bpm Weight: 174 lbs 8 oz 06/19/2011 Blood Pressure 1: 122/70 Code: 8480-6 BMI: 30.2 Code: 44933-4 Heart Rate 1: 104 bpm Height: 5'3" Weight: 173 lbs 06/05/2011 Blood Pressure 1: 100/50 Code: 8480-6 BMI: 29.6 Code: 45227-5 Heart Rate 1: 96 bpm Height: 5'3" Respiratory Rate: 16 bpm Weight: 170 lbs Functional Status No Functional Status data History of Present Illness Symptom Name Status Resu lt Effective Date Notes Location in the right lower back area [...] recently started s eeking counseling from her ledge man. depression Pertinent Findings anxiety 08/21/2012 None depression [...] recently started s eeking counseling from her ledge man. depression Pertinent Findings anxiety 07/17/2012 None depression [...] Encounters Encounter Performer Loca tion Codes Date ([id number]) 33046 EST. P ATIENT, LEVEL III Diagnosis: Pleurodynia[ICD10: R07.81] Diagnosis: Pain in thoracic spine[ICD10: M54.6] Amy Cheung MD, [facility] CPT-4: 55619 12/23/2018 ([id number] 14165 EST. P ATIENT, LEVEL III Diagnosis: Gastro-esophageal reflux disease without esophagitis[ICD10: K21.9] Amy Cheung MD, [facility] CPT-4: 94532 06/12/2018 ([id number] 67889 EST. P ATIENT, LEVEL III Diagnosis: Gastro-esophageal reflux disease without esophagitis[ICD10: K21.9] Diagnosis: Cough[ICD10: R05] Riya Cheung MD, [facility] CPT-4: 81685 05/26/2018 ([id number]) 02571 EST. 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 P ATIENT, LEVEL IV Diagnosis: Type 2 diabetes mellitus with hyperglycemia[ICD10: E11.65] Diagnosis: Essential (primary) hypertension[ICD10: I10] Amy Cheung MD, [facility] CPT-4: 96916 11/25/2017 ([id number]) 92881 EST. P ATIENT, LEVEL IV Diagnosis: Type 2 diabetes mell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[ICD10: E11.9] Diagnosis: Mixed hyperlipidemia[ICD10: E78.2] Diagnosis: Candidal stomatitis[ICD10: B37.0] Amy Cheung MD, [facility] CPT-4: 63036 09/18/2017 ([id number]) 99263 EST. P ATIENT, LEVEL IV Diagnosis: Type 2 diabetes mell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[ICD10: E11.9] Diagnosis: Mixed hyperlipidemia[ICD10: E78.2] Diagnosis: Essential (primary) hypertension[ICD10: I10] Diagnosis: Encounter for immunization[ICD10: Z23] Amy Cheung MD, [facility] CPT-4: 85967 05/02/2017 ([id number]) 21948 EST. P ATIENT, LEVEL III Diagnosis: Candidal stomatitis[ICD10: B37.0] Riya Cheung MD, [facility] CPT- 4: 98739 03/29/2017 ([id number]) 80819 EST. P ATIENT, LEVEL IV Diagnosis: Essential (primary) hypertension[ICD10: I10] Diagnosis: Type 2 diabetes mell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[ICD10: E11.9] Amy Cheung MD, [facility] CPT-4: 05034 11/15/2016 01817 EST. PATIENT, LEVEL III Diagnosis: Other malaise[ICD10: R53.81] Diagnosis: Other fatigue[ICD10: R53.83] Diagnosis: Type 2 diabetes mellitus with hyperglycemia[ICD10: E11.65] Diagnosis: Essential (primary) hypertension[ICD10: I10] Diagnosis: Weakness[ICD10: R53.1] Mariana Cheung MD, [facility] CPT-4: 23712 11/06/2016 ([id number]) 04897 EST. P ATIENT, LEVEL III Diagnosis: Type 2 diabetes mellitus with hyperglycemia[ICD10: E11.65] Amy Cheung MD, [facility] CPT-4: 47419 08/01/2016 ([id number]) 14738 EST. P ATIENT, LEVEL III Diagnosis: Type 2 diabetes mellitus with hyperglycemia[ICD10: E11.65] Diagnosis: Gastroparesis[ICD10: K31.84] Amy Cheung MD, [facility] CPT-4: 34535 07/02/2016 ([id number]) 80177 EST. P ATIENT, LEVEL IV Diagnosis: Type 2 diabetes mellitus with hyperglycemia[ICD10: E11.65] Diagnosis: Hypothyroidism, unspecified[ICD10: E03.9] Amy Cheung MD, [facility] CPT-4: 78179 06/04/2016 ([id number]) 49239 EST. P ATIENT, LEVEL IV Diagnosis: Type 2 diabetes mellitus with hyperglycemia[ICD10: E11.65] Diagnosis: Mixed hyperlipidemia[ICD10: E78.2] Diagnosis: Essential (primary) hypertension[ICD10: I10] Amy Cheung MD, [facility] CPT-4: 72911 03/26/2016 ([id number]) 58790 EST. P ATIENT, LEVEL III Diagnosis: Essential (primary) hypertension[ICD10: I10] Diagnosis: Adjustment disorder with mixed anxiety and depressed mood[ICD10: F43.23] Amy Cheung MD, [facility] CPT-4: 89654 11/23/2015 ([id number]) 65590 EST. P ATIENT, LEVEL IV Diagnosis: Type 2 diabetes mellitus with hyperglycemia[ICD10: E11.65] Diagnosis: Panic disorder [episodic paroxysmal anxiety] without agoraphobia[ICD10: F41.0] Diagnosis: Adjustment disorder with mixed anxiety and depressed mood[ICD10: F43.23] Diagnosis: Essential (primary) hypertension[ICD10: I10] Amy Cheung MD, [facility] CPT-4: 34425 10/14/2015 ([id number]) 27678 EST. P ATIENT, LEVEL IV Diagnosis: DIABETES TYPE II[ICD9: 250.00] Diagnosis: GENERALIZED ANXIETY DISEASE[ICD9: 300.02] Diagnosis: ESSENTIAL HYPERTENSION[ICD9: 401.9] Diagnosis: ESOPHAGEAL REFLUX[ICD9: 530.81] Amy Cheung MD, [facility] CPT-4: 68468 03/31/2015 ([id number]) 11840 EST. P ATIENT, LEVEL IV Diagnosis: DM W/O COMPLICATION TYPE II, UNCONTROLLED[ICD9: 250.02] Diagnosis: ESSENTIAL HYPERTENSION[ICD9: 401.9] Diagnosis: DEPRESSIVE DISORDER NEC[ICD9: 311] Diagnosis: GENERALIZED ANXIETY DISEASE[ICD9: 300.02] Amy Cheung MD, [facility] CPT-4: 04658 08/31/2014 ([id number]) 10798 EST. P ATIENT, LEVEL IV Diagnosis: ESSENTIAL HYPERTENSION[ICD9: 401.9] Diagnosis: DIABETES TYPE II[ICD9: 250.00] Diagnosis: Constipation - functional[ICD9: 564.09] Diagnosis: Abdominal pain[ICD9: 789.00] Amy Cheung MD, [facility] CPT-4: 57113 08/10/2014 ([id number]) 83079 EST. P ATIENT, LEVEL III Diagnosis: Flu vaccine need[ICD9: V04.81] Diagnosis: Neck pain[ICD9: 723.1] Diagnosis: Chronic allergic rhinitis[ICD9: 477.9] Amy Cheung MD, [facility] CPT-4: 90159 05/06/2014 ([id number]) 14613 EST. P ATIENT, LEVEL IV Diagnosis: DM W/O COMPLICATION TYPE II, UNCONTROLLED[ICD9: 250.02] Diagnosis: GENERALIZED ANXIETY DISEASE[ICD9: 300.02] Diagnosis: ESSENTIAL HYPERTENSION[ICD9: 401.9] Diagnosis: Neck pain[ICD9: 723.1] Amy Cheung MD, [facility] CPT-4: 97732 04/14/2014 ([id number]) 43591 EST. P ATIENT, LEVEL IV Diagnosis: ESSENTIAL HYPERTENSION[SNOMED: 45668300] Diagnosis: DIABETES TYPE II[SNOMED: 164708481] Diagnosis: Iliotibial band syndrome[ICD9: 728.89] Diagnosis: DEPRESSIVE DISORDER NEC[ICD9: 311] Diagnosis: GENERALIZED ANXIETY DISEASE[ICD9: 300.02] Amy Cheung MD, [facility] CPT-4: 08226 11/10/2013 ([id number]) 74103 EST. P ATIENT, LEVEL III Diagnosis: DIABETES TYPE II[SNOMED: 964505246] Amy Cheung MD, [facility] CPT- 4: 92031 07/14/2013 ([id number]) 28655 EST. P ATIENT, LEVEL IV Diagnosis: ESSENTIAL HYPERTENSION[SNOMED: 60376399] Diagnosis: DM W/O COMPLICATION TYPE II, UNCONTROLLED[SNOMED: 47046284] Amy Cheung MD, [facility] CPT-4: 57753 06/12/2013 ([id number]) 72295 EST. P ATIENT, LEVEL III Diagnosis: DIABETES TYPE II[SNOMED: 269693598] Amy Cheung MD, [facility] CPT- 4: 28285 05/20/2013 ([id number]) 39784 EST. P ATIENT, LEVEL IV Diagnosis: ESSENTIAL HYPERTENSION[SNOMED: 37485899] Diagnosis: HYPERLIPIDEMIA[ICD9: 272.4] Diagnosis: Type II diabetes mellitus, uncontrolled[SNOMED: 14751592] Amy Cheung MD, [facility] CPT-4: 95045 04/09/2013 ([id number]) 02363 EST. P ATIENT, LEVEL III Diagnosis: ESSENTIAL HYPERTENSION[SNOMED: 57018008] Diagnosis: ENCNTR LONG-RX USE NEC[ICD9: V58.69] Diagnosis: IMPACTED CERUMEN[ICD9: 380.4] Amy Cheung MD, [facility] CPT-4: 73227 01/26/2013 ([id number]) 04012 EST. P ATIENT, LEVEL IV Diagnosis: DIABETES TYPE II[SNOMED: 964974651] Diagnosis: ESSENTIAL HYPERTENSION[SNOMED: 13951054] Diagnosis: Polymyalgia[ICD9: 725] Amy Cheung MD, [facility] CPT-4: 27400 12/23/2012 ([id number]) 71482 EST. P ATIENT, LEVEL III Diagnosis: ACUTE MAXILLARY SINUSITIS[ICD9: 461.0] Diagnosis: COUGH[ICD9: 786.2] Amy Cheung MD, [facility] CPT-4: 26375 12/15/2012 ([id number]) 25636 EST. P ATIENT, LEVEL III Diagnosis: ANAL OR RECTAL PAIN[ICD9: 569.42] Diagnosis: Bruising[ICD9: 924.9] Diagnosis: Hip pain[ICD9: 719.45] Amy Cheung MD, [facility] CPT-4: 32421 10/22/2012 ([id number]) 81677 EST. P ATIENT, LEVEL IV Diagnosis: ESSENTIAL HYPERTENSION[SNOMED: 43088362] Diagnosis: DIABETES TYPE II[SNOMED: 414194005] Amy Cheung MD, [facility] CPT- 4: 58139 08/21/2012 ([id number]) 29101 EST. P ATIENT, LEVEL IV Diagnosis: DIABETES TYPE II[SNOMED: 340982885] Diagnosis: DEPRESSIVE DISORDER NEC[ICD9: 311] Amy Cheung MD, [facility] CPT- 4: 48694 07/17/2012 ([id number]) 63807 EST. P ATIENT, LEVEL III Diagnosis: ESSENTIAL HYPERTENSION[SNOMED: 14569225] Diagnosis: DEPRESSIVE DISORDER NEC[ICD9: 311] Amy Cheung MD, [facility] CPT- 4: 19432 07/08/2012 74932 EST. PATIENT, LEVEL IV Diagnosis: ESSENTIAL HYPERTENSION[SNOMED: 91800618] Diagnosis: DIABETES TYPE II[SNOMED: 204882957] Amy Cheung MD, [facility] CPT- 4: 27366 06/09/2012 ([id number]) 87828 EST. P ATIENT, LEVEL III Diagnosis: Acute sinusitis[ICD9: 461.9] Diagnosis: FEVER NOS[ICD9: 780.60] Amy Cheung MD, [facility] CPT-4: 70635 02/12/2012 ([id number]) 99092 EST. P ATIENT, LEVEL III Diagnosis: Otalgia of both ears[ICD9: 388.70] Diagnosis: Hemorrhoids[ICD9: 455.6] Diagnosis: Rectal or anal pain[ICD9: 569.42] Amy Cheung MD, [facility] CPT-4: 77623 02/05/2012 ([id number]) 32242 EST. P ATIENT, LEVEL IV Diagnosis: Dysuria[ICD9: 788.1] Diagnosis: ACUTE MAXILLARY SINUSITIS[ICD9: 461.0] Diagnosis: Allergic rhinitis[ICD9: 477.9] Amy Cheung MD, [facility] CPT-4: 23770 11/14/2011 ([id number]) 59827 EST. P ATIENT, LEVEL IV Diagnosis: DIABETES TYPE II[SNOMED: 556461911] Diagnosis: Cough[ICD9: 786.2] Diagnosis: FEVER NOS[ICD9: 780.60] Amy Cheung MD, [facility] CPT-4: 75990 10/08/2011 89879 EST. PATIENT, LEVEL IV Diagnosis: OTHER CONSTIPATION[ICD9: 564.09] Diagnosis: IMPACTED CERUMEN[ICD9: 380.4] Diagnosis: Recurrent sinusitis[ICD9: 473.9] Amy Cheung MD, [facility] CPT-4: 89067 08/28/2011 [id number] EST. PATIENT, LEVEL IV Diagnosis: Neck pain, acute[ICD9: 723.1] Diagnosis: Cough[ICD9: 786.2] Diagnosis: Cerumen impaction[ICD9: 380.4] Amy Cheung MD, [facility] CPT-4: 06994 08/23/2011 01094 EST. PATIENT, LEVEL IV Diagnosis: ESSENTIAL HYPERTENSION[SNOMED: 78779171] Diagnosis: HYPERLIPIDEMIA[ICD9: 272.4] Diagnosis: DIABETES TYPE II[SNOMED: 023029438] Diagnosis: DEPRESSIVE DISORDER NEC[ICD9: 311] Diagnosis: 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[ICD9: 357.7] Amy Cheung MD, [facility] CPT-4: 00794 07/24/2011 48498 EST. PATIENT, LEVEL IV Diagnosis: Abdominal pain[ICD9: 789.00] Diagnosis: Hematochezia[ICD9: 578.1] Diagnosis: Back pain[ICD9: 724.5] Amy Cheung MD, [facility] CPT-4: 83818 06/19/2011 47811 EST. 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 Rx for muscle relaxer sent to patient's pharmacy. Kenalog shot given in clinic today. 12/23/2018 Appointment: Amy Cheung WPtel: [phone] [phone] (15 min) Moderate 12/23/2018 Patient Education: Patient Medication Summary Completed 12/23/2018 Care Plan: X-RAY EXAM THORAC SPINE 2VWS LOINC : 55500-3 Pending 12/23/2018 Visit Plan: Esophageal Reflux - the patient has been counseled against excessive intake of caffeine, spicy foods, peppermint, and cinnamon - all of which can exacerbate esophageal reflux. The patient is to take medications as prescribed and call the office if the symptoms are not improving. Advised pt to use lactaid pills 06/12/2018 Appointment: Amy Cheung WPtel: [phone] [phone] (15 min) Moderate 06/12/2018 [facility]ointment: [phone] [facility] - Annual Wellness Visit 06/12/2018 Patient Education: Patient Medication Summary Completed 06/12/2018 Visit Plan: Esophageal Reflux - the patient has been counseled against excessive intake of caffeine, spicy foods, peppermint, and cinnamon - all of which can exacerbate esophageal reflux. The patient is to take medications as prescribed and call the office if the symptoms are not improving. Hsala-gwmgeelgp-dycsuow injection today in the office -start claritin [...] to become less controlled. 04/01/2018 Appointment: Amy Cehung WPtel: [phone] [phone] (15 min) Moderate 04/01/2018 Patient Education: Patient Medication Summary Completed 04/01/2018 Patient Education: Patient Medication Summary Completed 03/31/2018 Appointment: Amy Cheung WPtel: [phone] [facility] (15 min) Moderate 01/15/2018 Visit Plan: Diabetes [...] home. 11/25/2017 Appointment: Amy Cheung WPtel: [phone] [facility] [place] (15 min) Moderate 11/25/2017 Patient Education: [...] for nystatin 09/18/2017 Appointment: Amy Cheung WPtel: [phone] [facility] (15 min) Moderate 09/18/2017 Patient Education: Patient [...] shot today 05/02/2017 [facility]ment[phone] [place] (15 min) Moderate 05/02/2017 Patient Education: Patient Medication Summary Completed 05/02/2017 Appointment: Amy Cheung WPtel: [phone] [facility] (15 min) Moderate 04/15/2017 Visit Plan: Thrush-discussed natura l and expected course of this diagnosis and to alert me if symptoms do not follow expected course, or if any worse. RX sent to patient's pharmacy. Patient verbalized understanding of plan. 03/29/2017 Appointment: Aguilar Riya WPtel: [phone] [phone] [place] (30 min) Complex 03/29/2017 Patient Education: Patient Medication Summary Completed 03/29/2017 Patient Education: Obesity Completed 03/29/2017 Appointment: Amy Cheung WPtel: [facility]5 [facility] (15 min) Moderate 03/14/2017 Visit Plan: Diabetes Mellitus - con trobibied - per recent FSBS reports. I have [...] home. 11/15/2016 Appointment: Amy Cheung WPtel: [phone] [phone] (15 min) Moderate 11/15/2016 Patient Education: Patient Medication Summary Completed 11/15/2016 Appointment: Amy Cheung WPtel: [phone] [facility] (15 min) Moderate 11/07/2016 Visit Plan: Fatigue, [...] control. 11/06/2016 Appointment: [phone] ([facility] min) Complex 11/06/2016 Patient Education: Patient Medication Summary Completed 11/06/2016 Patient Education: Patient Medication Summary Completed 09/19/2016 Patient Education: Patient Medication Summary Completed 08/22/2016 Care Plan: Comp Metabolic Pending 08/22/2016 Care Plan: %Hba1C she can have drawn anytime after 09/04/16 LOINC : 56071-7 Pending 08/22/2016 Visit Plan: Diabetes Mellitus - [...] clinic. 08/01/2016 Appointment: [phone] (15 min) Moderate 08/01/2016 Patient Education: Patient Medication Summary Completed 08/01/2016 Appointment: [phone] (15 min) Moderate 07/09/2016 Visit Plan: Diabetes [...] motility 07/02/2016 Appointment: [phone] (15 min) Moderate 07/02/2016 Patient Education: Patient [...] control. 06/04/2016 Appointment: [phone] (15 min) Moderate 06/04/2016 Patient Education: Patient [...] medications. 03/26/2016 Appointment: [phone] (15 min) Moderate 03/26/2016 Patient Education: [...] Completed 10/14/2015 Appointment: Amy Cheung WPtel: [phone] [phone] (15 min) Moderate 10/13/2015 Appointment: Amy Cheung WPtel: [facility]5 [facility] (15 min) Moderate 05/09/2015 Visit Plan: Diabetes [...] esophageal cancer. 03/31/2015 Appointment: Amy Cheung WPtel: [facility]5 [facility] (15 min) Moderate 03/31/2015 Patient Education: Patient Medication Summary Completed 03/31/2015 Patient Education: Hypertension Completed 03/31/2015 Appointment: (15 min) Moderate 02/11/2015 Appointment: Amy Cheung WPtel: [facility]2 [facility] Sick 09/29/2014 Visit Plan: Diabetes Mellitus - [...] 9 months. 08/31/2014 Appointment: Amy Cheung WPtel: [phone] [facility] Follow up 08/31/2014 Patient Education: Patient Medication [...] Hypertension Completed 08/10/2014 Appointment: [phone] Follow up 05/10/2014 Visit Plan: Allergies - [...] be ordered. 05/06/2014 Appointment: Amy Cheung WPtel: [phone] [facility] Follow up 05/06/2014 Patient Education: Patient Medication Summary Completed 05/06/2014 Patient Education: .Cervicalgia Neck Pain Completed 05/06/2014 Appointment: Amy Cheung WPtel: [facility]5 [facility] Follow up 05/05/2014 Visit Plan: Hypertension - [...] the neck. 04/14/2014 Appointment: Amy Cheung WPtel: [address] [place], [place] [phone] Follow up 04/14/2014 Patient Education: Patient Medication [...] exercises. 11/10/2013 Appointment: Amy Cheung WPtel: [phone] [phone] Other 11/10/2013 Patient Education: Patient Medication Summary [...] Amy Cheung WPtel: [facility]5 [facility] Other 07/14/2013 Patient Education: Patient Medication Summary Completed 07/14/2013 Appointment: Riya Sheikh WPtel: [facility]5 [phone] Follow up 07/13/2013 Visit Plan: Hypertension [...] glucose control. 06/12/2013 Appointment: Riya Sheikh WPtel: [phone] [phone] Other 06/12/2013 Patient Education: Patient Medication Summary [...] Amy Cheung WPtel: [facility] Follow up 05/20/2013 Patient Education: Patient Medication Summary Completed 05/20/2013 Appointment: Amy Cheugn WPtel: [facility]5 [facility] Follow up 05/07/2013 Appointment: Amy Cheung WPtel: [facility]5 [facility] Lab Draw 04/27/2013 Patient Education: Patient Medication [...] a copy of this note to her Construction Electrician - Dr. Kraus as he will ultimately [...] Amy Cheung WPtel: [facility]5 [place] [phone] Follow up 04/09/2013 Patient Education: Patient Medication Summary Completed 04/09/2013 Patient Education: Hypertension Completed 04/09/2013 Appointment: Amy Cheung WPtel: [address] [place], [place] [phone] Follow up 03/30/2013 Visit Plan: Hypertension - [...] water today 01/26/2013 Appointment: Amy Cheung WPtel: [phone] [phone] Other 01/26/2013 Patient Education: Patient Medication Summary [...] at home. 12/23/2012 Appointment: Amy Cheung WPtel: [address] [place], [place] [phone] Follow up 12/23/2012 Patient Education: Patient Medication Summary Completed 12/23/2012 Patient Education: Hypertension Completed 12/23/2012 Visit Plan: Sinusitis - Pt has acut e infection - pain in face, maxillary region, Pt informed to use decongestant, RX given to patient, sinus rinses also recommended. Call if symptoms do not show improvement. 12/15/2012 Appointment: Amy Cheung WPtel: [address] [place], [place] [phone] Sick 12/15/2012 Patient Education: Patient Medication Summary Completed 12/15/2012 Visit Plan: Bruising and pain post fall- with hip pain - recommended pt to have xray of hips and pelvis and lumbar spine as she is having the pain in her hips post fall. 10/22/2012 Appointment: Amy Cheung WPtel: [address] [place], [place] [phone] Other 10/22/2012 Patient Education: Patient Medication Summary Completed 10/22/2012 Appointment: Amy Cheung WPtel: [address] [place], [place] [phone] Follow up 09/30/2012 Visit Plan: Hypertension - well con galileobibied - continue with current medications, continue with [...] controlled. 08/21/2012 Appointment: [facility]el[phone] Follow up 08/21/2012 Patient Education: Patient Medication [...] that [facility] and [facility]. No change to Pat's medications today. Time based documentation -I spent over 40 minutes with the patient in discussion of the disease process, expected course, and overall prognosis for the patient's disease state. The patient/family expressed understanding. 07/17/2012 Appointment: [facility]el[phone] Follow up 07/17/2012 Patient Education: Patient Medication Summary Completed 07/17/2012 Visit Plan: Hypertension - well eleuterio harper - continue with current medications, continue with [...] issues today. 07/08/2012 Appointment: Amy Cheung WPtel: [facility] Other 07/08/2012 Patient Education: Patient Medication Summary Completed 07/08/2012 Patient Education: Hypertension Completed 07/08/2012 Visit Plan: Diabetes Mellitus - con myriamed [...] labs checked. 06/09/2012 Appointment: Amy Cheung WPtel: [facility]5 [address] Other 06/09/2012 Patient Education: Patient Medication Summary Completed 06/09/2012 Patient Education: High Blood Pressure: Essential Hypertension Completed 06/09/2012 Visit Plan: Sinusitis - Pt has acut e infection - pain in face, maxillary region, Pt informed to use decongestant, RX given to patient, sinus rinses also recommended. Call if symptoms do not show improvement. 02/12/2012 Appointment: Amy Cheung WPtel: [facility] Other 02/12/2012 Patient Education: Patient Medication Summary [...] in place. 02/05/2012 Appointment: Amy Cheung WPtel: [address] [place] [address] Other 02/05/2012 Patient Education: Patient Medication Summary [...] any worse. Check your thyroid labs at [facility]-we will call you with the results. Allergies - chronic - recommended pt to use allergy medication as prescribed. Pt has been counseled as the the appropriate use of the medication. Pt to call if allergy symptoms are not controlled with the medication. Dysuria - UA negative 11/14/2011 Appointment: Amy Cheung WPtel: [address] [place] [address] Other 11/14/2011 Appointment: Amy Cheung WPtel: [address] [place] [address] Other 11/14/2011 Patient Education: Patient Medication Summary Completed 11/14/2011 Visit Plan: Diabetes Mellitus - con meredith [...] patient today. 10/08/2011 Appointment: Amy Cheung WPtel: [facility] [address] Other 10/08/2011 Patient Education: Patient Medication Summary [...] process. 08/28/2011 Appointment: [phone] Other 08/28/2011 Patient Education: Patient Medication Summary [...] in readings. 07/24/2011 Appointment: Amy Cheung WPtel: [phone] [facility] Other 07/24/2011 Patient Education: Patient Medication Summary [...] lower back. 06/19/2011 Appointment: [facility]el[phone] Other 06/19/2011 Patient Education: Patient Medication Summary [...] neuropathic symptoms. 06/05/2011 Appointment: Amy Cheung WPtel: [facility] Other 06/05/2011 Patient Education: Patient Medication Summary Completed 06/05/2011 Instructions Comment . Diabetes Mellitus - controlled - per [...] discuss all of the issues today. . Diabetes Mellitus - Uncontrolled - per [...] tid if needed for neuropathic symptoms. . Bruising and pain post fall- with [...] in blood pressure readings at home. . Abdominal pain - d iscussed need [...] exercises and heat to lower back. . Fatigue, malaise, diaphoresis, weakness - will [...] become less controlled. I sent prescriptions to [facility] for the following medications: LOSARTAN 25MG DAILY [...] phenergan with codeine given to patient today. Nexium 40mg daily continue zantac kenalog injection today claritin 10mg daily call if reflux is not better . Esophageal Reflux - the patient has be en counseled against excessive intake of caffeine, spicy foods, peppermint, and cinnamon - all of which can exacerbate esophageal reflux. The patient is to take medications as prescribed and call the office if the symptoms are not improving. Ejvtr-aygeyjpym-iedtsnr injection today in the office -start claritin [...] patient stabilized during the removal process. . Sinusitis - Pt has acute infection [...] - pt needs to have labs checked. take 1/2 bottle of m agnesium citrate [...] given handout on Ilitibial band exercises. . Sinusitis - Pt has acute infection - pain in face, maxillary region, Pt informed to use decongestant, RX given to patient, sinus rinses also recommended. Call if symptoms do not show improvement. increase trulicity d ose to 1.5mg weekly [...] assure normal liver response to medications. . Rib pain and thora cic spine [...] a copy of this note to her Construction Electrician - Dr. Kraus as he will ultimately [...] warm water today . Diabetes Mellitus - controlled - per [...] in blood pressure readings at home. . Diabetes Mellitus - controlled - per [...] months based on previous levels of control. decrease claritin to 1/2 a tablet twice [...] she reports that she feels stable. . Hypertension - wel l controlled - [...] any worse. Check your thyroid labs at [facility]-we will call you with [...] any worse. Check your thyroid labs at [facility]-we will call you with [...]
--- OUTSIDE RECORDS SUMMARY | 2019-08-12 22:51 | XMS REPORT | CCD ---
Author Author Veronica Cheung Organization Amy Cheung MD, [facility] Address [address] [place] [address] Phone Care Team Providers Care Computer Help Desk Representative Name Role Phone PP Unavailable CCM Unavailable Summary Purpose Interface Exchange Insurance Providers Payer name Policy type / Coverage type Covered green party ID Effective Begin Date Effective End Date WPS Medicare Part B Medicare Part B [id number] Unknown GEHA Medicare Part B [id number] Unknown Family history Father Diagnosis Age At [...] Date Stop Date Sta tus Fill Instructions mesalamine 800 mg ta blet,delayed release RxNorm: 624837 Tablet(s) TAKE 1 TABL ET TWICE A DAY 01/15/2019 01/09/2020 Active metformin 500 mg tablet RxNorm: 038384 TAKE 1 AND 1/2 TABLETS TWICE DAILY 01/15/2019 01/09/2020 Ac tive Nexium 40 mg capsule ,delayed release RxNorm: 195831 TAKE 1 CAPSULE TWICE DAILY 01/15/2019 01/09/2020 Ac tive Lialda 1.2 gram tabl et,delayed release RxNorm: 287137 2 Tablet(s) PO daily 12/23/2018 No Stop Date Active Kenalog 40 mg/mL elizabeth pension for injection RxNorm: 1051897 Milliliter(s) Inj 12/23/2018 12/23/2018 In active cyclobenzaprine 5 mg tablet RxNorm: 991646 1 Tablet(s) PO TID x 3 days then as needed for muscle spasms 12/23/2018 01/01/2019 Inactive furosemide 40 mg tablet RxNorm: 447931 TAKE 1 TABLET DAILY 12/01/2018 08/27/2019 Active Effexor XR 75 mg cap alma,extended release RxNorm: 632629 1 Capsule(s) PO daily 09/16/2018 09/10/2019 Ac tive levothyroxine 25 mcg tablet RxNorm: 463702 Tablet(s) TAKE 1 TABL ET DAILY 08/26/2018 02/21/2019 Ac tive montelukast 10 mg ta blet RxNorm: 750876 TAKE 1 TABLET DAILY 07/21/2018 07/15/2019 Active Augmentin 500 mg-125 mg tablet RxNorm: 512918 1 Tablet(s) PO TID 05/27/2018 05/26/2018 Inactive Augmentin 500 mg-125 mg tablet RxNorm: 879931 1 Tablet(s) PO TID 05/27/2018 06/02/2018 Inactive Kenalog 40 mg/mL elizabeth pension for injection RxNorm: 7506268 1 Milliliter(s) Inj 05/26/2018 05/26/2018 In active pilocarpine 5 mg tablet RxNorm: 0210400 Tablet(s) TAKE 4 TABLETS DAILY 04/22/2018 07/15/2019 Ac tive Trulicity 1.5 mg/0.5 mL subcutaneous pen injector RxNorm: 6159900 INJECT 0.5ML SUBCUTANEOUSLY EVERY WEEK 02/24/2018 04/29/2019 Active levothyroxine 25 mcg tablet RxNorm: 788664 TAKE 1 TABLET DAILY 02/13/2018 08/11/2018 Inactive mesalamine 800 mg ta blet,delayed release RxNorm: 574976 TAKE 1 TABLET TWICE A DAY 12/10/2017 12/03/2018 In active metformin 500 mg tablet RxNorm: 920004 1.5 Tablet(s) PO BID 11/25/2017 11/19/2018 Inactive levothyroxine 25 mcg tablet RxNorm: 951776 TAKE 1 TABLET DAILY 11/19/2017 02/12/2018 Inactive Nexium 40 mg capsule ,delayed release RxNorm: 609835 TAKE 1 CAPSULE TWICE DAILY 11/15/2017 11/09/2018 In active Effexor XR 75 mg cap alma,extended release RxNorm: 071902 1 Capsule(s) PO daily 10/14/2017 09/15/2018 In active Bactroban 2 % topica l cream RxNorm: 874909 1 Application TOP TID 09/18/2017 09/27/2017 Inactive nystatin 100,000 uni t/mL oral suspension RxNorm: 142569 5 Milliliter(s) PO TI D 09/18/2017 09/27/2017 In active oxazepam 10 mg capsule RxNorm: 233495 1 Capsule(s) PO TID as needed anxiety 09/02/2017 02/28/2018 In active fluticasone 50 mcg/a ctuation nasal spray,suspension RxNorm: 2445718 Star USE ONE SPRAY IN EACH NOSTRIL TWICE A DAY 08/29/2017 12/26/2017 Inactive oxazepam 10 mg capsule RxNorm: 786226 1 Capsule(s) PO TID as needed anxiety 08/29/2017 09/01/2017 In active furosemide 40 mg tablet RxNorm: 302167 TAKE 1 TABLET DAILY 08/26/2017 08/20/2018 Inactive pilocarpine 5 mg tablet RxNorm: 3963293 TAKE 4 TABLETS DAILY 08/26/2017 04/21/2018 Inactive metformin 500 mg tablet RxNorm: 110457 TAKE 1 TABLET TWICE A DAY 08/20/2017 11/24/2017 Inactive Claritin-D 12 Hour 5 mg-120 mg tablet,extended release RxNorm: 0974247 Tablet(s) TAKE ONE (1) TABLET BY MOUTH TWICE DAILY 07/29/2017 12/22/2018 Inactive fluticasone 50 mcg/a ctuation nasal spray,suspension RxNorm: 3559355 Star USE ONE SPRAY IN EACH NOSTRIL TWICE A DAY 07/25/2017 07/24/2017 Inactive fluticasone 50 mcg/a ctuation nasal spray,suspension RxNorm: 8866813 Star USE ONE SPRAY IN EACH NOSTRIL TWICE A DAY 07/25/2017 08/28/2017 Inactive fluticasone 50 mcg/a ctuation nasal spray,suspension RxNorm: 3534850 Star USE ONE SPRAY IN EACH NOSTRIL TWICE A DAY 06/04/2017 07/24/2017 Inactive montelukast 10 mg ta blet RxNorm: 917190 TAKE 1 TABLET DAILY 06/03/2017 05/28/2018 Inactive levothyroxine 25 mcg tablet RxNorm: 333663 TAKE 1 TABLET DAILY 05/13/2017 11/08/2017 Inactive Voltaren 1 % topical gel RxNorm: 457085 2 Gram(s) TOP QID 05/02/2017 2017 Inactive nystatin 100,000 uni t/mL oral suspension RxNorm: 109378 5 Milliliter(s) PO QI D 03/29/2017 04/11/2017 In active Diflucan 150 mg tablet RxNorm: 354765 1 Tablet(s) PO daily 03/29/2017 05/01/2017 Inactive Trulicity 1.5 mg/0.5 mL subcutaneous pen injector RxNorm: 3492780 INJECT 0.5ML SUBCUTANEOUSLY EVERY WEEK 02/28/2017 01/29/2018 Inactive levothyroxine 25 mcg tablet RxNorm: 482310 1 Tablet(s) PO daily 11/19/2016 11/18/2016 Inactive levothyroxine 25 mcg tablet RxNorm: 673276 1 Tablet(s) PO daily 11/19/2016 05/12/2017 Inactive Claritin 10 mg tablet RxNorm: 358785 1 Tablet(s) PO daily 11/07/2016 11/06/2016 Inactive Claritin 10 mg tablet RxNorm: 353759 1 Tablet(s) PO daily 11/07/2016 12/06/2016 Inactive Zithromax Z-Ankit 250 mg tablet RxNorm: 146292 1 Tablet(s) PO UD 11/07/2016 05/01/2017 Inactive oxazepam 10 mg capsule RxNorm: 507094 1 Capsule(s) PO TID as needed anxiety 11/01/2016 12/30/2016 In active Nexium 40 mg capsule ,delayed release RxNorm: 393246 1 Capsule(s) PO BID 10/25/2016 10/19/2017 In active Claritin-D 12 Hour 5 mg-120 mg tablet,extended release RxNorm: 6955580 Tablet(s) TAKE ONE (1) TABLET BY MOUTH TWICE DAILY 10/25/2016 12/23/2016 Inactive mesalamine 800 mg ta blet,delayed release RxNorm: 071081 1 Tablet(s) PO BID 09/18/2016 09/17/2016 In active mesalamine 800 mg ta blet,delayed release RxNorm: 092904 1 Tablet(s) PO BID 09/18/2016 06/14/2017 In active Effexor XR 75 mg cap alma,extended release RxNorm: 076415 1 Capsule(s) PO daily 08/30/2016 08/24/2017 In active metformin 500 mg tablet RxNorm: 222185 1 Tablet(s) PO BID 08/17/2016 08/11/2017 Inactive oxazepam 10 mg capsule RxNorm: 146977 1 Capsule(s) PO TID as needed anxiety 08/17/2016 10/15/2016 In active Claritin-D 12 Hour 5 mg-120 mg tablet,extended release RxNorm: 6387293 TAKE ONE (1) TABLET BY MOUTH TWICE DAILY... 08/16/2016 10/24/2016 Inactive furosemide 40 mg tablet RxNorm: 720408 1 Tablet(s) daily TAKE 1 TABLET DAILY 08/14/2016 08/08/2017 In active Effexor XR 75 mg cap alma,extended release RxNorm: 687381 1 Capsule(s) PO daily 08/14/2016 08/29/2016 In active pilocarpine 5 mg tablet RxNorm: 4100286 4 Tablet(s) PO daily TAKE 4 TABLETS YARI Y 08/14/2016 08/08/2017 In active metoclopramide 5 mg tablet RxNorm: 794455 1/2 to 1 Tablet(s) PO TID for nause and GI dysmotility 07/02/2016 11/14/2016 Inactive Effexor XR 75 mg cap alma,extended release RxNorm: 596223 1 Capsule(s) PO daily 07/02/2016 08/13/2016 In active metformin 500 mg tablet RxNorm: 805669 1/2 TABLET(S) PO BID X2 WEEKS THEN INCRE ASE TO 1 TABLET PO BID THEREAFTER 06/26/2016 08/16/2016 Inactive 30 day supply Claritin-D 12 Hour 5 mg-120 mg tablet,extended release RxNorm: 8901508 1 Tablet(s) PO BID 06/18/2016 08/15/2016 Inactive montelukast 10 mg ta blet RxNorm: 865135 1 Tablet(s) PO daily 06/13/2016 06/02/2017 Inactive metformin 500 mg tablet RxNorm: 030627 1/2 Tablet(s) PO BID x2 weeks then incre ase to 1 Tablet PO BID thereafter 06/07/2016 06/06/2016 Inactive 30 day supply metformin 500 mg tablet RxNorm: 394100 1/2 Tablet(s) PO BID x2 weeks then incre ase to 1 Tablet PO BID thereafter 06/07/2016 06/25/2016 Inactive 30 day supply Diflucan 150 mg tablet RxNorm: 330251 1 Tablet(s) PO daily 03/27/2016 04/02/2016 Inactive nystatin 100,000 uni t/mL oral suspension RxNorm: 297903 5 Milliliter(s) PO QI D 03/27/2016 04/05/2016 In active nystatin 100,000 uni t/mL oral suspension RxNorm: 651189 5 Milliliter(s) PO QI D 03/27/2016 03/26/2016 In active Diflucan 150 mg tablet RxNorm: 752478 1 Tablet(s) PO daily 03/27/2016 03/26/2016 Inactive Effexor XR 75 mg cap alma,extended release RxNorm: 688966 1 Capsule(s) PO daily 03/26/2016 07/01/2016 In active this replaces the 150mg dose - we are we aning down her dose Trulicity 1.5 mg/0.5 mL subcutaneous pen injector RxNorm: 6006909 0.5 Milliliter(s) SQ QW 03/26/2016 02/27/2017 Inactive Trulicity 0.75 mg/0. 5 mL subcutaneous pen injector RxNorm: 6970971 1 injection SQ QW 03/13/2016 06/03/2016 Inactive Trulicity 0.75 mg/0. 5 mL subcutaneous pen injector RxNorm: 8104881 1/2 Milliliter(s) SQ QW 03/13/2016 03/12/2016 Inactive glyburide 2.5 mg tablet RxNorm: 284960 1/2 Tablet(s) PO BID 03/13/2016 03/25/2016 Inactive glyburide 2.5 mg tablet RxNorm: 538309 1/2 Tablet(s) PO BID 03/13/2016 03/12/2016 Inactive Claritin-D 12 Hour 5 mg-120 mg tablet,extended release RxNorm: 1486370 1 Tablet(s) PO BID 02/03/2016 10/24/2016 Inactive Synthroid 25 mcg tablet RxNorm: 559532 1 Tablet(s) PO daily 01/23/2016 11/18/2016 Inactive Synthroid 25 mcg tablet RxNorm: 289841 1 Tablet(s) PO daily 01/23/2016 01/22/2016 Inactive Claritin-D 12 Hour 5 mg-120 mg tablet,extended release RxNorm: 1603450 1 Tablet(s) PO BID 12/05/2015 05/31/2016 Inactive Effexor XR 150 mg ca psule,extended release RxNorm: 674663 TAKE 1 CAPSULE DAILY 12/05/2015 03/25/2016 In active Bydureon 2 mg/0.65 m L subcutaneous pen injector RxNorm: 3345968 2 Milligram(s) SQ QW 10/14/2015 03/12/2016 Inactive oxazepam 10 mg capsule RxNorm: 818296 1 Capsule(s) PO TID PRN as needed anxiet y 10/14/2015 04/10/2016 In active Nexium 40 mg capsule ,delayed release RxNorm: 648507 1 Capsule(s) BID TAKE 1 CAPSULE DAILY 10/14/2015 10/07/2016 Inactive this is a new RX - fill the twice daily dose instead of once daily dose Effexor XR 150 mg ca psule,extended release RxNorm: 356260 1 Capsule(s) PO daily TAKE 1 CAPSULE DAILY 10/03/2015 03/25/2016 Inactive pilocarpine 5 mg tablet RxNorm: 7061221 4 Tablet(s) PO daily TAKE 4 TABLETS YARI Y 08/09/2015 02/04/2016 In active pilocarpine 5 mg tablet RxNorm: 0131264 4 Tablet(s) PO daily TAKE 4 TABLETS YARI Y 07/26/2015 08/08/2015 In active Claritin-D 12 Hour 5 mg-120 mg tablet,extended release RxNorm: 2107500 1 Tablet(s) PO BID 05/02/2015 10/24/2016 Inactive furosemide 40 mg tablet RxNorm: 545162 1 Tablet(s) daily TAKE 1 TABLET DAILY 03/31/2015 03/24/2016 In active Nexium 40 mg capsule ,delayed release RxNorm: 567330 1 Capsule(s) BID TAKE 1 CAPSULE DAILY 03/31/2015 10/13/2015 Inactive this is a new RX - fill the twice daily dose instead of once daily dose Nexium 40 mg capsule ,delayed release RxNorm: 756691 1 Capsule(s) daily TA KE 1 CAPSULE DAILY 03/31/2015 03/30/2015 Inactive montelukast 10 mg ta blet RxNorm: 656451 1 Tablet(s) PO daily 03/31/2015 03/24/2016 Inactive Synthroid 25 mcg tablet RxNorm: 235888 1 Tablet(s) PO daily 01/17/2015 01/11/2016 Inactive Synthroid 25 mcg tablet RxNorm: 609724 1 Tablet(s) PO daily 01/03/2015 01/16/2015 Inactive Claritin-D 12 Hour 5 mg-120 mg tablet,extended release RxNorm: 9731879 1 Tablet(s) PO BID 12/29/2014 05/01/2015 Inactive Synthroid 25 mcg tablet RxNorm: 996780 1 Tablet(s) PO daily 12/20/2014 01/02/2015 Inactive Synthroid 25 mcg tablet RxNorm: 796360 1 Tablet(s) PO daily 12/07/2014 12/19/2014 Inactive Effexor XR 150 mg ca psule,extended release RxNorm: 682664 1 Capsule(s) PO daily TAKE 1 CAPSULE DAILY 11/30/2014 10/02/2015 Inactive Nexium 40 mg capsule ,delayed release RxNorm: 833760 Capsule(s) TAKE 1 CAP ALMA DAILY 11/30/2014 03/30/2015 In active fenofibric acid (cho line) 135 mg capsule,delayed release RxNorm: 720874 1 Capsule(s) PO daily 08/31/2014 08/25/2015 Inactive Bydureon 2 mg subcut aneous extended release suspension RxNorm: 0298587 1 injection SQ QW 07/21/2014 07/15/2015 Inactive fluticasone 50 mcg/a ctuation nasal spray,suspension RxNorm: 7143116 USE ONE SPRAY IN EACH NOSTRIL TWICE A DAY 07/06/2014 06/03/2017 Inactive Lipitor 10 mg tablet RxNorm: 560593 TAKE 1 TABLET AT BEDTIME 06/15/2014 10/13/2015 Inactive furosemide 40 mg tablet RxNorm: 692237 TAKE 1 TABLET DAILY 06/15/2014 03/30/2015 Inactive oxazepam 10 mg capsule RxNorm: 476015 1 Capsule(s) PO TID PRN as needed anxiet y 06/11/2014 12/07/2014 In active montelukast 10 mg ta blet RxNorm: 189064 1 Tablet(s) PO daily 05/25/2014 03/30/2015 Inactive oxazepam 10 mg capsule RxNorm: 806571 1 Capsule(s) PO TID PRN as needed anxiet y 05/06/2014 06/10/2014 In active montelukast 10 mg ta blet RxNorm: 434950 1 Tablet(s) PO daily 05/04/2014 05/24/2014 Inactive Nexium 40 mg capsule ,delayed release RxNorm: 739930 TAKE 1 CAPSULE DAILY 03/25/2014 11/29/2014 In active Nexium 40 mg capsule ,delayed release RxNorm: 943547 1 Capsule(s) PO daily TAKE 1 CAPSULE DAILY 03/02/2014 03/24/2014 Inactive oxazepam 10 mg capsule RxNorm: 840855 1 Capsule(s) PO TID PRN as needed 02/24/2014 04/24/2014 In active pilocarpine 5 mg tablet RxNorm: 8865437 TAKE 4 TABLETS DAILY 02/01/2014 07/25/2015 Inactive Claritin-D 12 Hour 5 mg-120 mg tablet,extended release RxNorm: 3835643 1 Tablet(s) PO BID 12/24/2013 10/24/2016 Inactive Effexor XR 150 mg ca psule,extended release RxNorm: 747203 1 Capsule(s) PO daily TAKE 1 CAPSULE DAILY 12/24/2013 11/29/2014 Inactive Klor-Con 10 mEq tabl et,extended release RxNorm: 506277 1 Tablet(s) PO daily 12/24/2013 10/13/2015 In active Bydureon 2 mg subcut aneous extended release suspension RxNorm: 7976609 1 injection SQ QW 12/07/2013 07/20/2014 Inactive Synthroid 25 mcg tablet RxNorm: 794161 1 Tablet(s) PO daily 12/02/2013 11/26/2014 Inactive Klor-Con 10 mEq tabl et,extended release RxNorm: 805684 1 Tablet(s) PO daily take 2 daily x 1 week then one daily thereafter 12/02/2013 12/23/2013 Inactive oxazepam 10 mg capsule RxNorm: 259086 1 Capsule(s) PO TID PRN 11/10/2013 01/08/2014 Inactive omeprazole 20 mg cap alma,delayed release RxNorm: 188730 1 Capsule(s) PO daily 11/10/2013 04/13/2014 In active Synthroid 50 mcg tablet RxNorm: 343156 Tablet(s) PO TAKE 1 TABLET DAILY 09/21/2013 12/01/2013 In active furosemide 40 mg tablet RxNorm: 573471 Tablet(s) PO TAKE 1 TABLET DAILY 09/21/2013 06/14/2014 In active Bydureon 2 mg subcut aneous extended release suspension RxNorm: 8049706 1 injection SQ QW 07/22/2013 12/06/2013 Inactive Bydureon 2 mg subcut aneous extended release suspension RxNorm: 8602246 1 injection SQ QW 07/14/2013 07/21/2013 Inactive Nexium 40 mg capsule ,delayed release RxNorm: 771564 Capsule(s) PO TAKE 1 CAPSULE DAILY 06/18/2013 11/09/2013 Inactive fluticasone 50 mcg/a ctuation nasal spray,suspension RxNorm: 202014 1 Star NASAL BID 06/18/2013 07/05/2014 Inactive Lipitor 10 mg tablet RxNorm: 751423 Tablet(s) PO every other day 1 tablet qo d 06/18/2013 06/12/2014 In active losartan 25 mg tablet RxNorm: 726550 1 Tablet(s) PO daily 1 daily for blood p ressure 06/18/2013 10/15/2013 Inactive Toprol XL 25 mg tabl et,extended release RxNorm: 238476 1 Tablet(s) PO daily 06/18/2013 06/12/2014 In active Toprol XL 25 mg tabl et,extended release RxNorm: 778184 1 Tablet(s) PO daily 06/12/2013 06/17/2013 In active losartan 25 mg tablet RxNorm: 521940 1 Tablet(s) PO daily 1 daily for blood p ressure 06/12/2013 06/17/2013 Inactive Lipitor 10 mg tablet RxNorm: 862869 Tablet(s) PO every other day 1 tablet qo d 06/12/2013 06/17/2013 In active Effexor XR 150 mg ca psule,extended release RxNorm: 109752 1 Capsule(s) PO daily TAKE 1 CAPSULE DAILY 05/27/2013 12/23/2013 Inactive Bydureon 2 mg subcut aneous extended release suspension RxNorm: 2240467 1 injection SQ QW 05/20/2013 07/13/2013 Inactive Lipitor 10 mg tablet RxNorm: 421830 Tablet(s) PO every other day 1 tablet qo d 05/20/2013 06/11/2013 In active Pen Needle 32 x 5/32" RxNorm: Miscellaneous use with byetta pen 05/07/2013 09/03/2013 Inactive Effexor XR 150 mg ca psule,extended release RxNorm: 503394 1 Capsule(s) PO daily TAKE 1 CAPSULE DAILY 05/07/2013 05/26/2013 Inactive Pen Needle 32 x 5/32" RxNorm: Miscellaneous use with byetta pen 05/06/2013 05/06/2013 Inactive Pen Needle 32 x 5/32" RxNorm: Miscellaneous use with byetta pen 05/06/2013 05/05/2013 Inactive Byetta 5 mcg/0.02 mL per dose Sub-Q Pen Injector RxNorm: 177996 1 Unit Dose SQ BID 04/29/2013 05/19/2013 In active metformin ER 500 mg tablet,extended release 24 hr RxNorm: 114081 1 Tablet(s) PO BID 04/28/2013 06/19/2013 In active Byetta 5 mcg/0.02 mL per dose Sub-Q Pen Injector RxNorm: 114679 1 Unit Dose SQ BID 04/28/2013 04/27/2013 In active Byetta 5 mcg/0.02 mL per dose Sub-Q Pen Injector RxNorm: 228675 1 Unit Dose SQ BID 04/28/2013 04/28/2013 In active Influenza Virus Vacc ine 0.5 mL RxNorm: IM 04/27/2013 04/27/2013 Inactive glyburide 2.5 mg tablet RxNorm: 557106 1 Tablet(s) PO BID 04/27/2013 04/27/2013 Inactive glyburide 2.5 mg tablet RxNorm: 409085 1/2 Tablet(s) PO daily 04/13/2013 04/26/2013 Inactive glyburide 2.5 mg tablet RxNorm: 581574 1 Tablet(s) PO daily 04/09/2013 04/12/2013 Inactive metformin ER 500 mg tablet,extended release 24 hr RxNorm: 225087 2 Tablet(s) PO BID 04/09/2013 04/27/2013 In active Lipitor 10 mg tablet RxNorm: 099433 Tablet(s) PO TAKE 1 TABLET AT BEDTIME 03/17/2013 05/19/2013 In active losartan 25 mg tablet RxNorm: 485408 1 Tablet(s) PO daily 02/12/2013 06/11/2013 Inactive montelukast 10 mg ta blet RxNorm: 790798 1 Tablet(s) PO daily 02/09/2013 02/08/2013 Inactive montelukast 10 mg ta blet RxNorm: 060941 1 Tablet(s) PO daily 02/09/2013 02/03/2014 Inactive losartan 25 mg tablet RxNorm: 967402 1 Tablet(s) PO daily 02/09/2013 02/11/2013 Inactive losartan 25 mg tablet RxNorm: 964864 1 Tablet(s) PO daily 01/26/2013 02/08/2013 Inactive Effexor XR 150 mg ca psule,extended release RxNorm: 890940 Capsule(s) PO TAKE 1 CAPSULE DAILY 12/24/2012 05/06/2013 Inactive metformin ER 500 mg tablet,extended release 24 hr RxNorm: 378823 Tablet(s) PO TAKE 2 TABLETS TWICE A DAY 12/24/2012 04/08/2013 Inactive pilocarpine 5 mg tablet RxNorm: 3201206 Tablet(s) PO TAKE 4 TABLETS DAILY 12/24/2012 01/31/2014 In active levofloxacin 500 mg tablet RxNorm: 273786 1 Tablet(s) PO daily 12/15/2012 12/19/2012 Inactive Nexium 40 mg capsule ,delayed release RxNorm: 372916 Capsule(s) PO daily T MILO 1 CAPSULE DAILY 11/03/2012 06/17/2013 Inactive Claritin-D 12 Hour 5 mg-120 mg tablet,extended release RxNorm: 8828407 1 Tablet(s) PO BID 10/29/2012 10/23/2013 Inactive TAKE 1 TABLET BY MOUTH TWICE DAILY fluticasone 50 mcg/a ctuation nasal spray,suspension RxNorm: 9904943 1 Star NASAL BID 10/08/2012 06/17/2013 Inactive Claritin-D 12 Hour 5 mg-120 mg tablet,extended release RxNorm: 0950076 1 Tablet(s) PO BID 09/09/2012 2012 Inactive TAKE 1 TABLET BY MOUTH TWICE DAILY montelukast 10 mg ta blet RxNorm: 511664 1 Tablet(s) PO daily 08/20/2012 02/08/2013 Inactive Synthroid 50 mcg tablet RxNorm: 987241 Tablet(s) PO TAKE 1 TABLET DAILY 08/18/2012 09/20/2013 In active Nexium 40 mg capsule ,delayed release RxNorm: 695849 Capsule(s) PO TAKE 1 CAPSULE DAILY 08/18/2012 11/02/2012 Inactive furosemide 40 mg tablet RxNorm: 464724 Tablet(s) PO TAKE 1 TABLET DAILY 08/18/2012 09/20/2013 In active Klor-Con 10 mEq tabl et,extended release RxNorm: 330894 Tablet(s) PO TAKE 1 T ABLET DAILY 08/18/2012 12/01/2013 Inactive Xanax 0.5 mg tablet RxNorm: 566852 1 Tablet(s) PO Q6 PRN 07/17/2012 10/13/2015 Inactive Zithromax 250 mg tablet RxNorm: 503003 Tablet(s) PO 07/14/2012 11/10/2013 Inactive disp one z ankit fluticasone 50 mcg/a ctuation Nasal Star, Susp RxNorm: 2453487 1 Star NASAL BID 06/27/2012 10/07/2012 In active Anusol-HC 25 mg Supp ository RxNorm: 5684168 1 Suppository RTL QD AY PRN 06/09/2012 12/22/2018 In active daily x 3 days then prnno longer than 10 days in row use Claritin-D 12 Hour 5 mg-120 mg tablet,extended release RxNorm: 4039827 1 Tablet(s) PO BID 05/22/2012 05/22/2012 Inactive TAKE 1 TABLET BY MOUTH TWICE DAILY Claritin-D 12 Hour 5 mg-120 mg tablet,extended release RxNorm: 5871505 Tablet(s) PO 05/12/2012 05/21/2012 In active TAKE 1 TABLET BY MOUTH TWICE DAILY fluticasone 50 mcg/a ctuation Nasal Star, Susp RxNorm: 3865092 1 Star NASAL BID 05/06/2012 06/26/2012 In active Rocephin 500 mg Solu tion for Injection RxNorm: 0594477 Inj 01/1802/12/2012 Inactive metronidazole 500 mg Tab RxNorm: 815038 1 Tablet(s) PO TID 02/12/2012 02/18/2012 Inactive Kenalog 40 mg/mL Elizabeth p for Injection RxNorm: 2421992 Milliliter(s) Inj 02/12/2012 02/12/2012 In active fluticasone 50 mcg/a ctuation Nasal Star, Susp RxNorm: 4105301 1 Star NASAL BID 02/12/2012 05/05/2012 In active cefdinir 300 mg Cap RxNorm: 066139 1 Capsule(s) PO BID 02/12/2012 02/21/2012 Inactive Effexor XR 150 mg ca psule,extended release RxNorm: 783956 1 Capsule(s) PO daily 12/17/2011 12/10/2012 In active metformin ER 500 mg tablet,extended release 24 hr RxNorm: 875618 2 Tablet(s) PO BID 12/17/2011 05/14/2012 In active pilocarpine 5 mg tablet RxNorm: 6347686 4 Tablet(s) PO daily 12/17/2011 03/15/2012 Inactive Singulair 10 mg Tab RxNorm: 472036 1 Tablet(s) PO daily 11/27/2011 08/19/2012 Inactive Nexium 40 mg capsule ,delayed release RxNorm: 556966 1 Capsule(s) PO daily 11/26/2011 03/24/2012 In active Claritin-D 12 Hour 5 mg-120 mg tablet,extended release RxNorm: 8375700 1 Tablet(s) PO BID 11/14/2011 05/11/2012 Inactive Claritin-D 12 Hour 5 mg-120 mg Tab RxNorm: 9643124 1 Tablet(s) PO BID 10/31/2011 11/13/2011 In active Claritin-D 12 Hour 5 mg-120 mg Tab RxNorm: 7221185 1 Tablet(s) PO BID 10/29/2011 2011 In active Claritin-D 12 Hour 5 mg-120 mg Tab RxNorm: 9357874 1 Tablet(s) PO BID 10/29/2011 10/30/2011 In active Claritin-D 24 Hour 1 0 mg-240 mg Tab RxNorm: 8436308 1 Tablet(s) PO daily 10/23/2011 2011 In active levofloxacin 500 mg Tab RxNorm: 683967 1 Tablet(s) PO daily 08/28/2011 09/03/2011 Inactive Nasonex 50 mcg/actua tion Star RxNorm: 337447 1 Star NASAL BID 08/28/2011 11/25/2011 Inactive promethazine 25 mg/m L Injection RxNorm: 870268 1 Milliliter(s) Inj 08/23/2011 07/14/2013 Inactive glyburide 2.5 mg tablet RxNorm: 440606 1 Tablet(s) PO daily 08/23/2011 04/08/2013 Inactive Rocephin 500 mg Solu tion for Injection RxNorm: 4976081 1 Milliliter(s) Inj 08/23/2011 08/28/2011 In active Klor-Con 10 10 mEq t ablet,extended release RxNorm: 144709 1 Tablet(s) PO daily 08/06/2011 07/30/2012 In active Nexium 40 mg Capsule , delayed release RxNorm: 759910 1 Capsule(s) PO daily 08/06/2011 11/25/2011 In active furosemide 40 mg tablet RxNorm: 719643 1 Tablet(s) PO daily 08/06/2011 07/30/2012 Inactive Cymbalta 30 mg Cap RxNorm: 520168 1 Capsule(s) PO daily 07/26/2011 08/28/2011 Inactive Synthroid 50 mcg tablet RxNorm: 606499 Tablet(s) PO 06/21/2011 08/17/2012 Inactive TAKE 1 TABLET DAILY Neurontin 100 mg Cap RxNorm: 135103 2 Capsule(s) PO TID 06/19/2011 08/28/2011 Inactive ciprofloxacin 500 mg Tab RxNorm: 865158 1 Tablet(s) PO BID 06/19/2011 08/28/2011 Inactive Neurontin 100 mg Cap RxNorm: 484854 1 Capsule(s) PO QID 06/05/2011 06/18/2011 Inactive oxazepam 10 mg Cap RxNorm: 229078 1 Capsule(s) PO Q6 PRN 06/05/2011 10/02/2011 Inactive Influenza Virus Vacc ine 0.5 mL RxNorm: IM 06/05/2011 06/05/2011 Inactive hydrocodone-acetamin ophen 5 mg-500 mg Tab RxNorm: 564728 1 Tablet(s) PO Q6 PRN No Start Date Active Fish Oil 1,000 mg Cap RxNorm: 2 Capsule(s) PO BID No Start Date Active Zenpep 40,000-136,00 0-218,000 unit capsule,delayed release RxNorm: 6316497 1 Capsule(s) PO QID No Start Date Active Multiple Vitamins ch ewable tablet RxNorm: 1 Tablet(s) PO daily No Start Date Active mesalamine 4 gram/60 mL enema RxNorm: 819252 1 Milliliter(s) RTL d aily No Start Date Active aspirin 81 mg Cap, D elayed Release RxNorm: 064420 1 Capsule(s) PO daily No Start Date Active Vitamin B-12 1,000 m cg Tab RxNorm: 587163 2 Tablet(s) PO daily No Start Date Active Vitamin C With Darlyn Hips 1,000 mg Tab RxNorm: 570351 1 Tablet(s) PO daily No Start Date Active Lipitor 10 mg Tab RxNorm: 044129 1 Tablet(s) PO HS No Start Date 04/10/2011 Inactive EnteraGam 5 gram ora l powder packet RxNorm: 1 PO daily No S tart Date 12/22/2018 Inactive Lipitor 20 mg Tab RxNorm: 457674 1 Tablet(s) PO HS No Start Date 08/28/2011 Inactive Zithromax 250 mg tablet RxNorm: 823736 Tablet(s) PO No Start Date 07/13/2012 Inactive disp one z ankit Effexor XR 150 mg 24 hr Cap RxNorm: 014490 1 Capsule(s) PO daily No Start Date 12/16/2011 Inactive Bydureon 2 mg/0.65 m L subcutaneous pen injector RxNorm: 0238611 Milliliter(s) SQ QW No Start Date 10/13/2015 Inactive Centrum Ultra Women' s 18 mg-400 mcg Tab RxNorm: 1 Tablet(s) PO daily No Start Date 12/22/2018 Inactive furosemide 40 mg Tab RxNorm: 211078 1 Tablet(s) PO daily No Start Date 08/05/2011 Inactive Synthroid 25 mcg tablet RxNorm: 361459 1 Tablet(s) PO daily No Start Date 12/01/2013 Inactive Januvia 50 mg tablet RxNorm: 652238 1 Tablet(s) PO daily samples No Start Date 04/27/2013 Inactive Lipitor 10 mg tablet RxNorm: 073584 1 Tablet(s) PO daily No Start Date 03/16/2013 Inactive Crestor 10 mg tablet RxNorm: 608702 1 Tablet(s) PO QHS No Start Date 03/25/2016 Inactive Asacol HD 800 mg Tab RxNorm: 332540 2 Tablet(s) PO daily No Start Date 10/13/2015 Inactive pilocarpine 5 mg Tab RxNorm: 9607231 4 Tablet(s) PO daily No Start Date 12/16/2011 Inactive glyburide 2.5 mg Tab RxNorm: 118491 1 Tablet(s) PO BID No Start Date 08/22/2011 Inactive Claritin-D 24 Hour 1 0 mg-240 mg Tab RxNorm: 1146826 1 Tablet(s) PO daily No Start Date 10/22/2011 Inactive Vitamin D 1,000 unit Tab RxNorm: 375034 1 Tablet(s) PO daily No Start Date 10/13/2015 Inactive Tricor 145 mg Tab RxNorm: 721740 1 Tablet(s) PO daily No Start Date 10/14/2015 Inactive Zithromax Z-Ankit 250 mg tablet RxNorm: 008524 1 Tablet(s) PO UD No Start Date 11/06/2016 Inactive Synthroid 25 mcg tablet RxNorm: 988148 1 Tablet(s) PO daily No Start Date 05/01/2017 Inactive Claritin-D 12 Hour 5 mg-120 mg tablet,extended release RxNorm: 7282215 1 Tablet(s) PO BID No Start Date 12/23/2013 Inactive Singulair 10 mg Tab RxNorm: 026219 1 Tablet(s) PO daily No Start Date 11/26/2011 Inactive Linzess 290 mcg capsule RxNorm: 6539647 1 Capsule(s) PO daily No Start Date 12/22/2018 Inactive Calcium 600 + D(3) 6 00 mg (1,500)-200 unit Tab RxNorm: 305345 1 Tablet(s) PO daily No Start Date 10/13/2015 Inactive Lialda 1.2 gram tabl et,delayed release RxNorm: 654798 2 Tablet(s) PO daily No Start Date 09/17/2016 Inactive Effexor XR 150 mg 24 hr Cap RxNorm: 507009 1 Capsule(s) PO daily No Start Date 08/28/2011 Inactive aspirin 325 mg Tab RxNorm: 182666 1 Tablet(s) PO daily No Start Date 08/28/2011 Inactive Toprol XL 25 mg tabl et,extended release RxNorm: 726454 1 Tablet(s) PO daily No Start Date 06/11/2013 Inactive lisinopril 10 mg tablet RxNorm: 576226 1 Tablet(s) PO daily No Start Date 01/25/2013 Inactive Cymbalta 60 mg Cap RxNorm: 562450 1 Capsule(s) PO daily No Start Date 08/28/2011 Inactive Nexium 40 mg Cap RxNorm: 056958 1 Capsule(s) PO daily No Start Date 08/05/2011 Inactive dicyclomine 10 mg Cap RxNorm: 026891 1 Capsule(s) PO daily No Start Date 07/13/2013 Inactive Synthroid 50 mcg Tab RxNorm: 297171 1 Tablet(s) PO daily No Start Date 06/20/2011 Inactive metformin ER 500 mg 24 hr Tab RxNorm: 226283 2 Tablet(s) PO BID No Start Date 12/16/2011 Inactive Anusol-HC 25 mg Supp ository RxNorm: 1935737 1 Suppository RTL No Start Date 06/08/2012 Inactive daily x 3 days then prnno longer than 10 days in row use Medication Administered Medication Codes Instruc tions Start Date Status Kenalog 40 mg/mL suspension for injection RxNorm: 6599138 Milliliter 12/23/2018 No longer Active Kenalog 40 mg/mL suspension for injection RxNorm: 2319681 1Milliliter 05/26/2018 N o longer Active Influenza Virus Vaccine 0.5 mL RxNorm: 04/27/2013 No longer Active Rocephin 500 mg Solution for Injection RxNorm: 0315992 02/12/2012 No longer A ctive Kenalog 40 mg/mL Susp for Injection RxNorm: 2215067 Milliliter 02/12/2012 No longer Active Influenza Virus [...] mellitus 08/31/2014 stiff neck diabetes mellitus 08/10/2014 Elie's nurse advised her to get Mag Citrate, [...] Code Item Item Code Result Date %Hba1C Sza597 % HbA1c 43453-8 6.6 % 04/01/2018 %Hba1C Fhf411 Gluc Ave 143 mg/dL 04/01/2018 Lipid Ord30 CHOL 178 mg/dL 04/01/2018 Lipid Ord30 HDL 50.0 mg/dl 04/01/2018 Lipid Ord30 TRIG 221 mg/dL 04/01/2018 Lipid Ord30 LDL 84 mg/dL 04/01/2018 Lipid Ord30 C/HDL 3.6 Ratio 04/01/2018 %Hba1C Lwz442 % HbA1c 55258-8 6.7 % 11/25/2017 %Hba1C Puv120 Gluc Ave 146 mg/dL 11/25/2017 Comp Metabolic Xre750 NA 144 mEq/L 04/30/2017 Comp Metabolic Ide800 K 4.3 mEq/L 04/30/2017 Comp Metabolic Alr409 CL 105 mEq/L 04/30/2017 Comp Metabolic Ytu093 CO2 29.0 mEq/L 04/30/2017 Comp Metabolic Kbs967 AN ION GAP 14 04/30/2017 Comp Metabolic Tel251 GL UCOSE 109 mg/dL 04/30/2017 Comp Metabolic Rah944 Cr eat 1.0 mg/dL 04/30/2017 Comp Metabolic Hfi645 eG FR 58 ml/min/1.73m2 04/30 Comp Metabolic Hpw617 BUN 17 mg/dL 04/30/2017 Comp Metabolic Owm788 B/ C Ratio 17.3 Ratio 04/30/2017 Comp Metabolic Fyb462 CA LCIUM 10.1 mg/dL 04/30/2017 Comp Metabolic Fti995 AL K PHOS 47 U/L 04/30/2017 Comp Metabolic Vfo305 T(SGOT) 16 U/L 04/30/2017 Comp Metabolic Chz709 AL T(SGPT) 16 U/L 04/30/2017 Comp Metabolic Def255 BI LI T 0.4 mg/dL 04/30/2017 Comp Metabolic Ywf799 AL BUMIN 4.5 g/dL 04/30/2017 Comp Metabolic Osi518 TP RO 6.7 g/dL 04/30/2017 Comp Metabolic Ejc088 GL OB 2.2 g/dL 04/30/2017 Comp Metabolic Dco322 A/ G Ratio 2.0 Ratio 04/30/2017 Comp Metabolic Ppf551 Os mo 289 mOsmo 04/30/2017 Cbc With [...] 28.2 pg 04/30/2017 Cbc With Differential Ord2 [place]% 6.5 % 04/30/2017 Cbc With Differential Ord2 [...] 1.12 K/ul 04/30/2017 Cbc With Differential Ord2 [place] ABS# 0.2 K/ul 04/30/2017 Cbc With Differential Ord2 Eos ABS# 0.1 K/ul 04/30/2017 Cbc With Differential Ord2 Baso ABS# 0.0 K/ul 04/30/2017 %Hba1C Sbf451 % HbA1c 43642-4 6.7 % 04/30/2017 %Hba1C Hxi362 Gluc Ave 146 mg/dL 04/30/2017 Tsh Ord6 hTSH II 1.36 uIU/mL 04/30/2017 Lipid Ord30 CHOL 160 mg/dL 04/30/2017 Lipid Ord30 HDL 51.0 mg/dl 04/30/2017 Lipid Ord30 TRIG 195 mg/dL 04/30/2017 Lipid Ord30 LDL 70 mg/dL 04/30/2017 Lipid Ord30 C/HDL 3.1 Ratio 04/30/2017 Free T4 Xsk145 FREE T4 0.75 ng/dL 04/30/2017 Ferritin Ord22 FERRITIN 89.9 ng/mL 11/09/2016 Parathyroid Hormone Utr776 PTH 36.20 pg/ml 11/09/2016 Tibc Ord40 Iron 75 ug/dl 11/08/2016 Tibc Ord40 UIBC 325 ug/dL 11/08/2016 Tibc Ord40 TIBC 400 ug/dL 11/08/2016 Tibc Ord40 Fe-%Sat 18.8 % 11/08/2016 Comp Metabolic Qax721 NA 139 mEq/L 09/25/2016 Comp Metabolic Csn687 K 4.3 mEq/L 09/25/2016 Comp Metabolic Qdx516 CL 101 mEq/L 09/25/2016 Comp Metabolic Qeq943 CO2 31.0 mEq/L 09/25/2016 Comp Metabolic Zbw236 AN ION GAP 11 09/25/2016 Comp Metabolic Zsq974 GL UCOSE 116 mg/dL 09/25/2016 Comp Metabolic Mbx403 Cr eat 1.1 mg/dL 09/25/2016 Comp Metabolic Ing745 eG FR 53 ml/min/1.73m2 09/25 Comp Metabolic Upy119 BUN 22 mg/dL 09/25/2016 Comp Metabolic Uax158 B/ C Ratio 20.8 Ratio 09/25/2016 Comp Metabolic Gnh717 CA LCIUM 10.3 mg/dL 09/25/2016 Comp Metabolic Xwt446 AL K PHOS 52 U/L 09/25/2016 Comp Metabolic Qvv925 T(SGOT) 16 U/L 09/25/2016 Comp Metabolic Bhf857 AL T(SGPT) 17 U/L 09/25/2016 Comp Metabolic Fbl545 BI LI T 0.3 mg/dL 09/25/2016 Comp Metabolic Ysk663 AL BUMIN 4.7 g/dL 09/25/2016 Comp Metabolic Nbx552 TP RO 6.9 g/dL 09/25/2016 Comp Metabolic Zsh308 GL OB 2.2 g/dL 09/25/2016 Comp Metabolic Lge770 A/ G Ratio 2.1 Ratio 09/25/2016 Comp Metabolic Wlc701 Os mo 282 mOsmo 09/25/2016 Lipid Ord30 CHOL 182 mg/dL 09/25/2016 Lipid Ord30 HDL 55.0 mg/dl 09/25/2016 Lipid Ord30 TRIG 168 mg/dL 09/25/2016 Lipid Ord30 LDL 93 mg/dL 09/25/2016 Lipid Ord30 C/HDL 3.3 Ratio 09/25/2016 %Hba1C Ugy799 % HbA1c 43360-1 7.0 % 09/25/2016 %Hba1C Ezo928 Gluc Ave 154 mg/dL 09/25/2016 Free T4 Hcy128 FREE T4 0.80 ng/dL 09/25/2016 Cbc With [...] 28.3 pg 09/25/2016 Cbc With Differential Ord2 [place]% 8.2 % 09/25/2016 Cbc With Differential Ord2 [...] 1.29 K/ul 09/25/2016 Cbc With Differential Ord2 [place] ABS# 0.3 K/ul 09/25/2016 Cbc With Differential Ord2 Eos ABS# 0.0 K/ul 09/25/2016 Cbc With Differential Ord2 Baso ABS# 0.0 K/ul 09/25/2016 Tsh Ord6 hTSH II 1.01 uIU/mL 09/25/2016 Tsh Ord6 hTSH II 1.35 uIU/mL 06/04/2016 Comp Metabolic Ggz755 NA 135 mEq/L 06/04/2016 Comp Metabolic Odd690 K 3.8 mEq/L 06/04/2016 Comp Metabolic Upo008 CL 99 mEq/L 06/04/2016 Comp Metabolic Wfp349 CO2 30.0 mEq/L 06/04/2016 Comp Metabolic Mji531 AN ION GAP 10 06/04/2016 Comp Metabolic Hty640 GL UCOSE 171 mg/dL 06/04/2016 Comp Metabolic Zha736 Cr eat 1.0 mg/dL 06/04/2016 Comp Metabolic Lcj005 eG FR 59 ml/min/1.73m2 06/04 Comp Metabolic Bih645 BUN 22 mg/dL 06/04/2016 Comp Metabolic Zoj221 B/ C Ratio 22.4 Ratio 06/04/2016 Comp Metabolic Qxu422 CA LCIUM 10.4 mg/dL 06/04/2016 Comp Metabolic Cic777 AL K PHOS 68 U/L 06/04/2016 Comp Metabolic Rcz089 T(SGOT) 22 U/L 06/04/2016 Comp Metabolic Uyo545 AL T(SGPT) 25 U/L 06/04/2016 Comp Metabolic Jdc851 BI LI T 0.4 mg/dL 06/04/2016 Comp Metabolic Ipe885 AL BUMIN 4.5 g/dL 06/04/2016 Comp Metabolic Ahm061 TP RO 7.0 g/dL 06/04/2016 Comp Metabolic Idf449 GL OB 2.5 g/dL 06/04/2016 Comp Metabolic Hap256 A/ G Ratio 1.8 Ratio 06/04/2016 Comp Metabolic Oxf604 Os mo 277 mOsmo 06/04/2016 Cbc With [...] 29.1 pg 06/04/2016 Cbc With Differential Ord2 [place]% 7.9 % 06/04/2016 Cbc With Differential Ord2 [...] 1.58 K/ul 06/04/2016 Cbc With Differential Ord2 [place] ABS# 0.5 K/ul 06/04/2016 Cbc With Differential Ord2 Eos ABS# 0.1 K/ul 06/04/2016 Cbc With Differential Ord2 Baso ABS# 0.1 K/ul 06/04/2016 %Hba1C Ivp205 % HbA1c 96898-4 8.7 % 06/04/2016 %Hba1C Cyy175 Gluc Ave 203 mg/dL 06/04/2016 Free T4 Xww523 FREE T4 0.84 ng/dL 06/04/2016 Lipid Ord30 CHOL 111 mg/dL 06/04/2016 Lipid Ord30 HDL 51.0 mg/dl 06/04/2016 Lipid Ord30 TRIG 185 mg/dL 06/04/2016 Lipid Ord30 LDL 23 mg/dL 06/04/2016 Lipid Ord30 C/HDL 2.2 Ratio 06/04/2016 Microalbumin Xpo777 Micr oAlb <0.7 mg/dL 06/04/2016 Comp Metabolic Cof966 NA 142 mEq/L 03/12/2016 Comp Metabolic Cyw477 K 4.1 mEq/L 03/12/2016 Comp Metabolic Elo187 CL 103 mEq/L 03/12/2016 Comp Metabolic Byn168 CO2 30.0 mEq/L 03/12/2016 Comp Metabolic Zfh387 AN ION GAP 13 03/12/2016 Comp Metabolic Cex434 GL UCOSE 138 mg/dL 03/12/2016 Comp Metabolic Tdy758 Cr eat 0.8 mg/dL 03/12/2016 Comp Metabolic Rxc603 eG FR 75 ml/min/1.73m2 03/12 Comp Metabolic Wqu672 BUN 18 mg/dL 03/12/2016 Comp Metabolic Ysx988 B/ C Ratio 22.8 Ratio 03/12/2016 Comp Metabolic Yyc981 CA LCIUM 9.8 mg/dL 03/12/2016 Comp Metabolic Cht390 AL K PHOS 83 U/L 03/12/2016 Comp Metabolic Szx582 T(SGOT) 15 U/L 03/12/2016 Comp Metabolic Njs121 AL T(SGPT) 20 U/L 03/12/2016 Comp Metabolic Sam729 BI LI T 0.4 mg/dL 03/12/2016 Comp Metabolic Mko535 AL BUMIN 4.2 g/dL 03/12/2016 Comp Metabolic Qep891 TP RO 6.4 g/dL 03/12/2016 Comp Metabolic Byd715 GL OB 2.2 g/dL 03/12/2016 Comp Metabolic Rhm865 A/ G Ratio 1.9 Ratio 03/12/2016 Comp Metabolic Jpo151 Os mo 287 mOsmo 03/12/2016 %Hba1C Zlh381 % HbA1c 65132-1 7.2 % 03/12/2016 %Hba1C Tmz323 Gluc Ave 160 mg/dL 03/12/2016 Comp Metabolic Six314 NA 138 mEq/L 10/18/2015 Comp Metabolic Nsf402 K 4.1 mEq/L 10/18/2015 Comp Metabolic Lju045 CL 97 mEq/L 10/18/2015 Comp Metabolic Hef980 CO2 32.0 mEq/L 10/18/2015 Comp Metabolic Zeg361 AN ION GAP 13 10/18/2015 Comp Metabolic Nvx881 GL UCOSE 145 mg/dL 10/18/2015 Comp Metabolic Hoi161 Cr eat 1.1 mg/dL 10/18/2015 Comp Metabolic Ueg040 eG FR 50 ml/min/1.73m2 10/17 Comp Metabolic Lni840 BUN 23 mg/dL 10/18/2015 Comp Metabolic Lvf116 B/ C Ratio 20.4 Ratio 10/18/2015 Comp Metabolic Bhh049 CA LCIUM 10.3 mg/dL 10/18/2015 Comp Metabolic Qrg228 AL K PHOS 59 U/L 10/18/2015 Comp Metabolic Nhs315 T(SGOT) 17 U/L 10/18/2015 Comp Metabolic Dak617 AL T(SGPT) 21 U/L 10/18/2015 Comp Metabolic Yus150 BI LI T 0.4 mg/dL 10/18/2015 Comp Metabolic Bif010 AL BUMIN 4.6 g/dL 10/18/2015 Comp Metabolic Grx042 TP RO 7.1 g/dL 10/18/2015 Comp Metabolic Jqd588 GL OB 2.5 g/dL 10/18/2015 Comp Metabolic Cgi998 A/ G Ratio 1.9 Ratio 10/18/2015 Comp Metabolic Vrq490 Os mo 282 mOsmo 10/18/2015 Tsh Ord6 hTSH II 1.81 uIU/mL 10/18/2015 %Hba1C Zhq869 % HbA1c 80989-0 7.3 % 10/18/2015 %Hba1C Oxb185 Gluc Ave 163 mg/dL 10/18/2015 Iron Ord72 Iron 90 ug/dl 10/18/2015 Free T4 Dln997 FREE T4 0.75 ng/dL 10/18/2015 Cbc With [...] 29.0 pg 10/18/2015 Cbc With Differential Ord2 [place]% 6.8 % 10/18/2015 Cbc With Differential Ord2 [...] 1.93 K/ul 10/18/2015 Cbc With Differential Ord2 [place] ABS# 0.5 K/ul 10/18/2015 Cbc With Differential [...] Lipid Ord30 C/HDL 2.3 Ratio 10/18/2015 TSH 3357174 TSH 1.042 uIU/ML 12/24/2012 A1C HPLC 8488549 A1C HPLC 89378-6 7.6 % 12/24/2012 ESR 9701838 ESR 2 MM/HR 12/23/2012 CHEM 14 2641610 AST 20 U/L 12/23/2012 CHEM 14 9197798 ALT 24 IU/L 12/23/2012 CHEM 14 6497509 BUN 16 MG/DL 12/23/2012 CHEM 14 8270731 ALBUMIN 4.7 GM/DL 12/23/2012 CHEM 14 1499870 CHLORIDE 102 MMOL/L 12/23/2012 CHEM 14 3890572 BILI TOT 0.3 MG/DL 12/23/2012 CHEM 14 4543033 ALK PHOS 109 U/L 12/23/2012 CHEM 14 4256066 SODIUM 142 MMOL/L 12/23/2012 CHEM 14 3704629 CREATINI NE 0.93 MG/DL 12/23/2012 CHEM 14 4112042 CALCIUM 10.0 MG/DL 12/23/2012 CHEM 14 0035218 POTASSIUM 3.7 MMOL/L 12/23/2012 CHEM 14 1794240 PROT TOT 7.2 GM/DL 12/23/2012 CHEM 14 4318732 GLUCOSE 116 MG/DL 12/23/2012 CHEM 14 6756864 BICARB 32 MMOL/L 12/23/2012 CHEM 14 2680961 ANION GAP 8 MEQ/L 12/23/2012 GFR CALC GFR AA >60 ML/MIN 12/23/2012 GFR CALC GFR NON -AA 59.0L ML/MIN 3 CBC 6342331 WBC 5.5 10e9/L 12/23/2012 CBC 9873654 RBC 4.90 10e12/L 12/23/2012 CBC 7415111 HGB 14.1 g/dL 12/23/2012 CBC 5419647 HCT DET 42.4 % 12/23/2012 CBC 8719617 MCV 86.5 fL 12/23/2012 CBC 3925259 MCH 28.8 pg 12/23/2012 CBC 0630519 MCHC 33.3 g/dL 12/23/2012 CBC 0798580 PLT 320 10e9/L 12/23/2012 CBC 4244462 MPV 9.9 fL 12/23/2012 CBC 6841724 BRANDIE % 63.7 % 12/23/2012 CBC 2716034 LY % 24.6 % 12/23/2012 CBC 7103629 MON % 6.3 % 12/23/2012 CBC 0437491 EOS % 4.7 % 12/23/2012 CBC 0722827 BASO % 0.7 % 12/23/2012 CBC 0817517 RDW 15.0 % 12/23/2012 CBC 4329456 ABS BRANDIE 3.50 10e9/L 12/23/2012 CBC 7157041 ABS LYMPH 1.35 10e9/L 12/23/2012 CBC 7987134 ABS MONO 0.35 10e9/L 12/23/2012 CBC 4394198 ABS EOS 0.26 10e9/L 12/23/2012 CBC 3894115 ABS BASO 0.04 10e9/L 12/23/2012 CBC 4627872 RDW-SD 47.1 fL 12/23/2012 CRP 8828866 CRP 0.1 MG/DL 12/23/2012 URINALYSIS NONAUTO W/O SCOPE 24243 Specific [place] 1.005 DateTime(Free Text in Apr) URINALYSIS NONAUTO W/O SCOPE 99657 PH 7.5 DateTime(Free Mina t in Apr) URINALYSIS NONAUTO W/O SCOPE 24258 GLUCOSE NEG DateTime(Free Mina t in Apr) URINALYSIS NONAUTO W/O SCOPE 06349 Protein NEG DateTime(Free Mina t in Aprima) URINALYSIS NONAUTO W/O SCOPE 44673 Blood NEG DateTime(Free Mina t in Apr) URINALYSIS NONAUTO W/O SCOPE 93622 Bilirubin NEG DateTime(Free Mina t in Apr) URINALYSIS NONAUTO W/O SCOPE 91274 Ketones NEG DateTime(Free Mina t in ) URINALYSIS NONAUTO W/O SCOPE 34458 Urobilinogen NEG DateTime(Free Text in ) URINALYSIS NONAUTO W/O SCOPE 18545 Nitrite NEG DateTime(Free Mian t in ) URINALYSIS NONAUTO W/O SCOPE 34761 Leukocytes NEG DateTime(Free Text in ) Review [...] 03/2016 Neurologic No dizziness 03/26/2016 Neurologic headache 03/2016 Neurologic No pain, facial 03/26/2016 Neurologic [...] rash 01/2011 Dermatologic No sores Psychiatric anxiety 1201/2011 Musculoskeletal arthralgia(s) 07/24/2011 Musculoskeletal myalgias 07/24/2011 Psychiatric depression 1 09/24/2010 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 Neurologic paresthesia 1 09/24/2010 Neurologic No dizziness 06/19/2011 Neurologic No headache 1 08/19/2010 Psychiatric anxiety 110 08/2010 Psychiatric No depression 06/19/2011 Constitutional No [...] masses 12/23/2018 None Full Exam - General 1995 Ears/Nose/Throat [...] rate 06/12/2013 None Full Exam - General 1995 Cardiovascular auscultation of heart Overall: normal heart sounds 06/12/2013 None Full Exam - General 1995 Cardiovascular auscultation of heart Overall: no murmurs 06/12/2013 None Full Exam - General 1995 Abdomen abdominal exam Overall: no tenderness 06/12/2013 None Full Exam - General 1995 Abdomen abdominal exam Overall: normal bowel sounds 06/12/2013 None Full Exam - General 1995 Musculoskeletal spine, ribs and pelvis Overall: ribs benign 06/12/2013 None Full Exam - General 1995 Musculoskeletal spine, ribs and pelvis Overall: spine benign 06/12/2013 None Full Exam - General 1995 Musculoskeletal spine, ribs and pelvis Overall: good posture 06/12/2013 None Full Exam - General 1995 [...] atraumatic 06/09/2012 None Full Exam - General 1995 Musculoskeletal head and neck Overall: cervical spine benign 06/09/2012 None Full Exam - General 1995 Musculoskeletal spine, ribs and pelvis Overall: good posture 06/09/2012 None Full Exam - General 1995 [...] masses 08/28/2011 None Full Exam - General 1995 [...] distress 08/23/2011 None Full Exam - General 1995 Eyes [...] Procedure Codes Date THER/PROPH/DIAG INJ SC/IM CPT-4: 46599 12/23/2018 TRIAMCINOLONE ACET I [place] NOS CPT-4: J3301 12/23/2018 THER/PROPH/DIAG INJ SC/IM CPT-4: 45993 05/26/2018 TRIAMCINOLONE ACET I [place] NOS CPT-4: J3301 05/26/2018 FLU VAC NO PRSV 4 VA L 3 YRS+ CPT-4: 05944 05/02/2017 ADMIN INFLUENZA VIRU S VAC CPT-4: G0008 05/02/2017 ADMIN PNEUMOCOCCAL V ACCINE SNOMED CT: 22596849 CPT-4: G0009 05/02/2017 PNEUMOCOCCAL VACC [address]: 23315617 CPT-4: 37883 05/02/2017 FLU VAC NO PRSV 4 VA L 3 YRS+ CPT-4: 48613 05/06/2014 ADMIN PNEUMOCOCCAL V ACCINE SNOMED CT: 71233669 CPT-4: G0009 05/06/2014 PRESCRIP TRANSMIT A ERX SY CPT-4: G8553 06/12/2013 PRESCRIP TRANSMIT A ERX SY CPT-4: G8553 05/20/2013 ADMIN INFLUENZA VIRU S VAC CPT-4: G0008 04/27/2013 FLULAVAL VACC, 3 YRS & >, IM CPT-4: Q2036 04/27/2013 PRESCRIP TRANSMIT A ERX SY CPT-4: G8553 04/09/2013 PRESCRIP TRANSMIT A ERX SY CPT-4: G8553 01/26/2013 ROUTINE VENIPUNCTURE CPT-4: 05502 12/23/2012 PRESCRIP TRANSMIT A ERX SY CPT-4: G8553 06/09/2012 ROCEPHIN, PER 250 MG CPT-4: J0696 02/12/2012 TRIAMCINOLONE ACET I [place] NOS CPT-4: J3301 02/12/2012 PRESCRIP TRANSMIT A ERX SY CPT-4: G8553 02/12/2012 ROCEPHIN, PER 250 MG CPT-4: J0696 02/05/2012 URINALYSIS NONAUTO W /O SCOPE CPT-4: 40463 11/14/2011 REMOVE IMPACTED EAR WAX UNI CPT-4: 79766 08/28/2011 PRESCRIP TRANSMIT A ERX SY CPT-4: G8553 08/28/2011 ROCEPHIN, PER 250 MG CPT-4: J0696 08/23/2011 TRIAMCINOLONE ACET I [place] NOS CPT-4: J3301 08/23/2011 THER/PROPH/DIAG INJ SC/IM CPT-4: 38052 08/23/2011 PRESCRIP TRANSMIT A ERX SY CPT-4: G8553 08/23/2011 OCCULT BLOOD FECES CPT- 4: 53819 06/19/2011 URINALYSIS NONAUTO W /O SCOPE CPT-4: 86879 06/19/2011 PRESCRIP TRANSMIT A ERX SY CPT-4: G8553 06/19/2011 ADMIN INFLUENZA VIRU S VAC CPT-4: G0008 06/05/2011 FLULAVAL VACC, 3 YRS & >, IM CPT-4: Q2036 06/05/2011 Vital Signs Date Vital 12/23/2018 Blood Pressure 1: 150/82 Code: 8480-6 Heart Rate 1: 89 bpm Height: SpO2: 95% Weight: 06/12/2018 Blood Pressure 1: 142/68 Code: 8480-6 BMI: 30.0 Code: 36049-9 Heart Rate 1: 91 bpm Height: 5'3" SpO2: 96% Weight: 172 lbs 05/26/2018 Blood Pressure 1: 142/72 Code: 8480-6 BMI: 30.0 Code: 76065-4 Heart Rate 1: 92 bpm Height: 5'3" SpO2: 96% Weight: 172 lbs 04/01/2018 Blood Pressure 1: 120/58 Code: 8480-6 BMI: 29.1 Code: 57710-1 Heart Rate 1: 83 bpm Height: 5'3" Respiratory Rate: 18 bpm SpO2: 95% Weight: 167 lbs 11/25/2017 Blood Pressure 1: 128/58 Code: 8480-6 BMI: 29.8 Code: 69656-3 Heart Rate 1: 83 bpm Height: 5'3" SpO2: 99% Weight: 171 lbs 09/18/2017 Blood Pressure 1: 140/72 Code: 8480-6 BMI: 30.3 Code: 75081-1 Heart Rate 1: 99 bpm Height: 5'3" SpO2: 97% Weight: 174 lbs 05/02/2017 Blood Pressure 1: 122/64 Code: 8480-6 BMI: 29.5 Code: 81492-5 Heart Rate 1: 81 bpm Height: 5'3" SpO2: 97% Weight: 169 lbs 03/29/2017 Blood Pressure 1: 134/68 Code: 8480-6 BMI: 30.0 Code: 03690-7 Heart Rate 1: 89 bpm Height: 5'3" SpO2: 98% Weight: 172 lbs 11/15/2016 Blood Pressure 1: 148/72 Code: 8480-6 BMI: 29.5 Code: 27808-4 Heart Rate 1: 102 bpm Height: 5'3" SpO2: 98% Weight: 169 lbs 11/06/2016 Blood Pressure 1: 140/78 Code: 8480-6 BMI: 29.8 Code: 87443-5 Heart Rate 1: 100 bpm Height: 5'3" SpO2: 97% Weight: 171 lbs 08/01/2016 Blood Pressure 1: 128/56 Code: 8480-6 BMI: 30.3 Code: 55148-5 Heart Rate 1: 88 bpm Height: 5'3" SpO2: 97% Weight: 174 lbs 07/02/2016 Blood Pressure 1: 126/62 Code: 8480-6 BMI: 31.0 Code: 02434-3 Heart Rate 1: 101 bpm Height: 5'3" SpO2: 97% Weight: 178 lbs 06/04/2016 Blood Pressure 1: 136/72 Code: 8480-6 BMI: 31.4 Code: 55531-5 Heart Rate 1: 103 bpm Height: 5'3" SpO2: 98% Weight: 180 lbs 03/26/2016 Blood Pressure 1: 134/74 Code: 8480-6 BMI: 30.7 Code: 66062-3 Heart Rate 1: 93 bpm Height: 5'3" SpO2: 98% Weight: 176 lbs 11/23/2015 Blood Pressure 1: 128/77 Code: 8480-6 BMI: 30.2 Code: 92168-0 Heart Rate 1: 74 bpm Height: 5'3" SpO2: 96% Weight: 173 lbs 10/14/2015 Blood Pressure 1: 122/72 Code: 8480-6 BMI: 30.3 Code: 05147-7 Heart Rate 1: 76 bpm Height: 5'3" SpO2: 97% Weight: 174 lbs 03/31/2015 Blood Pressure 1: 140/68 Code: 8480-6 BMI: 30.0 Code: 02409-9 Heart Rate 1: 93 bpm Height: 5'3" SpO2: 94% Weight: 172 lbs 08/31/2014 Blood Pressure 1: 122/74 Code: 8480-6 BMI: 31.2 Code: 39778-9 Heart Rate 1: 76 bpm Height: 5'3" Weight: 179 lbs 08/10/2014 Blood Pressure 1: 138/62 Code: 8480-6 BMI: 31.0 Code: 29724-3 Heart Rate 1: 80 bpm Height: 5'3" Weight: 178 lbs 05/06/2014 BMI: 31.2 Code: 54863-2 Height: 5'3" Weight: 179 lbs 04/14/2014 Blood Pressure 1: 136/68 Code: 8480-6 BMI: 31.4 Code: 97357-6 Heart Rate 1: 74 bpm Height: 5'3" Weight: 180 lbs 11/10/2013 Blood Pressure 1: 102/50 Code: 8480-6 BMI: 30.7 Code: 09485-1 Heart Rate 1: 76 bpm Height: 5'3" Weight: 176 lbs 07/14/2013 Blood Pressure 1: 136/80 Code: 8480-6 BMI: 30.3 Code: 24173-8 Heart Rate 1: 70 bpm Height: 5'3" Weight: 174 lbs 06/12/2013 Blood Pressure 1: 142/82 Code: 8480-6 BMI: 30.9 Code: 49878-6 Heart Rate 1: 72 bpm Height: 5'3" Weight: 177 lbs 05/20/2013 Blood Pressure 1: 132/70 Code: 8480-6 BMI: 31.2 Code: 56577-1 Heart Rate 1: 88 bpm Height: 5'3" Weight: 179 lbs 04/09/2013 Blood Pressure 1: 136/70 Code: 8480-6 BMI: 31.0 Code: 40831-7 Heart Rate 1: 100 bpm Height: 5'3" Weight: 178 lbs 01/26/2013 Blood Pressure 1: 118/56 Code: 8480-6 BMI: 30.7 Code: 45831-8 Heart Rate 1: 87 bpm Height: 5'3" Weight: 176 lbs 12/23/2012 Blood Pressure 1: 136/76 Code: 8480-6 Heart Rate 1: 104 bpm Respiratory Rate: 20 bpm Weight: 178 lbs 12/15/2012 Blood Pressure 1: 150/82 Code: 8480-6 Heart Rate 1: 100 bpm Temperature: 36.7 (C) / 98.1 (F) Weight: 178 lbs 10/22/2012 Blood Pressure 1: 138/82 Code: 8480-6 BMI: 30.2 Code: 44139-7 Heart Rate 1: 100 bpm Height: 5'3" Weight: 173 lbs 08/21/2012 Blood Pressure 1: 136/70 Code: 8480-6 BMI: 30.6 Code: 48166-3 Heart Rate 1: 98 bpm Height: 5'3" Weight: 175 lbs 8 oz 07/17/2012 Blood Pressure 1: 152/68 Code: 8480-6 BMI: 29.9 Code: 38587-3 Heart Rate 1: 92 bpm Height: 5'3" [...] 1: 122/68 Code: 8480-6 BMI: 29.5 Code: 75475-0 Heart Rate 1: 96 bpm Height: 5'3" [...] 1: 130/72 Code: 8480-6 BMI: 30.4 Code: 23157-0 Heart Rate 1: 92 bpm Height: 5'3" Respiratory Rate: 16 bpm Weight: 174 lbs 8 oz 06/19/2011 Blood Pressure 1: 122/70 Code: 8480-6 BMI: 30.2 Code: 20976-8 Heart Rate 1: 104 bpm Height: 5'3" Weight: 173 lbs 06/05/2011 Blood Pressure 1: 100/50 Code: 8480-6 BMI: 29.6 Code: 53513-2 Heart Rate 1: 96 bpm Height: 5'3" [...] Findings Denies edema 08/31/2014 None ~generic Location kasey luna 08/31/2014 reports stiff neck which she is [...] recently started s eeking counseling from her [employer] faculty member. 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 depression Pertinent Findings anxiety 07/17/2012 None depression [...] None cough Triggers ill conta cts 08/23/2011 yesica cough Alleviating Factors OTC medications 08/23/2011 None [...] Encounters Encounter Performer Loca tion Codes Date () [id number] EST. P ATIENT, LEVEL III Diagnosis: Pleurodynia[ICD10: R07.81] Diagnosis: Pain in thoracic spine[ICD10: M54.6] Amy Cheung MD, [facility] CPT-4: 72386 12/23/2018 ([id number]) [id number] EST. P ATIENT, LEVEL III Diagnosis: Gastro-esophageal reflux disease without esophagitis[ICD10: K21.9] Amy Cheung MD, [facility] CPT-4: 70685 06/12/2018 [id number]) [id number] EST. P ATIENT, LEVEL III Diagnosis: Gastro-esophageal reflux disease without esophagitis[ICD10: K21.9] Diagnosis: Cough[ICD10: R05] Riya Cheung MD, [facility] CPT-4: 88747 05/26/2018 ([id number]) 45247 EST. 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 P ATIENT, LEVEL IV Diagnosis: Type 2 diabetes mellitus with hyperglycemia[ICD10: E11.65] Diagnosis: Essential (primary) hypertension[ICD10: I10] Amy Cheung MD, [facility] CPT-4: 68540 11/25/2017 ([id number]) 23461 EST. P ATIENT, LEVEL IV Diagnosis: Type 2 diabetes mell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[ICD10: E11.9] Diagnosis: Mixed hyperlipidemia[ICD10: E78.2] Diagnosis: Candidal stomatitis[ICD10: B37.0] Amy Cheung MD, [facility] CPT-4: 75863 09/18/2017 ([id number]) 66785 EST. P ATIENT, LEVEL IV Diagnosis: Type 2 diabetes mell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[ICD10: E11.9] Diagnosis: Mixed hyperlipidemia[ICD10: E78.2] Diagnosis: Essential (primary) hypertension[ICD10: I10] Diagnosis: Encounter for immunization[ICD10: Z23] Amy Cheung MD, [facility] CPT-4: 73450 05/02/2017 ([id number]) 44131 EST. P ATIENT, LEVEL III Diagnosis: Candidal stomatitis[ICD10: B37.0] Riya Cheung MD, [facility] CPT- 4: 22100 03/29/2017 ([id number]) 10060 EST. P ATIENT, LEVEL IV Diagnosis: Essential (primary) hypertension[ICD10: I10] Diagnosis: Type 2 diabetes mell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[ICD10: E11.9] Amy Cheung MD, [facility] CPT-4: 66148 11/15/2016 90003 EST. PATIENT, LEVEL III Diagnosis: Other malaise[ICD10: R53.81] Diagnosis: Other fatigue[ICD10: R53.83] Diagnosis: Type 2 diabetes mellitus with hyperglycemia[ICD10: E11.65] Diagnosis: Essential (primary) hypertension[ICD10: I10] Diagnosis: Weakness[ICD10: R53.1] Mariana Cheung MD, [facility] CPT-4: 08033 11/06/2016 ([id number]) 53567 EST. P ATIENT, LEVEL III Diagnosis: Type 2 diabetes mellitus with hyperglycemia[ICD10: E11.65] Amy Cheung MD, [facility] CPT-4: 91323 08/01/2016 ([id number]) 95498 EST. P ATIENT, LEVEL III Diagnosis: Type 2 diabetes mellitus with hyperglycemia[ICD10: E11.65] Diagnosis: Gastroparesis[ICD10: K31.84] Amy Cheung MD, [facility] CPT-4: 84333 07/02/2016 ([id number]) 75048 EST. P ATIENT, LEVEL IV Diagnosis: Type 2 diabetes mellitus with hyperglycemia[ICD10: E11.65] Diagnosis: Hypothyroidism, unspecified[ICD10: E03.9] Amy Cheung MD, C CPT-4: 43035 06/04/2016 ([id number]) 70706 EST. P ATIENT, LEVEL IV Diagnosis: Type 2 diabetes mellitus with hyperglycemia[ICD10: E11.65] Diagnosis: Mixed hyperlipidemia[ICD10: E78.2] Diagnosis: Essential (primary) hypertension[ICD10: I10] Amy Cheung MD, [facility] CPT-4: 07778 03/26/2016 ([id number]) 43369 EST. P ATIENT, LEVEL III Diagnosis: Essential (primary) hypertension[ICD10: I10] Diagnosis: Adjustment disorder with mixed anxiety and depressed mood[ICD10: F43.23] Amy Cheung MD, [facility] CPT-4: 74905 11/23/2015 ([id number]) 95491 EST. P ATIENT, LEVEL IV Diagnosis: Type 2 diabetes mellitus with hyperglycemia[ICD10: E11.65] Diagnosis: Panic disorder [episodic paroxysmal anxiety] without agoraphobia[ICD10: F41.0] Diagnosis: Adjustment disorder with mixed anxiety and depressed mood[ICD10: F43.23] Diagnosis: Essential (primary) hypertension[ICD10: I10] Amy Cheung MD, [facility] CPT-4: 29829 10/14/2015 ([id number]) 90268 EST. P ATIENT, LEVEL IV Diagnosis: DIABETES TYPE II[ICD9: 250.00] Diagnosis: GENERALIZED ANXIETY DISEASE[ICD9: 300.02] Diagnosis: ESSENTIAL HYPERTENSION[ICD9: 401.9] Diagnosis: ESOPHAGEAL REFLUX[ICD9: 530.81] Amy Cheung MD, [facility] CPT-4: 70047 03/31/2015 ([id number]) 75650 EST. P ATIENT, LEVEL IV Diagnosis: DM W/O COMPLICATION TYPE II, UNCONTROLLED[ICD9: 250.02] Diagnosis: ESSENTIAL HYPERTENSION[ICD9: 401.9] Diagnosis: DEPRESSIVE DISORDER NEC[ICD9: 311] Diagnosis: GENERALIZED ANXIETY DISEASE[ICD9: 300.02] Amy Cheung MD, C CPT-4: 00160 08/31/2014 ([id number]) 77098 EST. P ATIENT, LEVEL IV Diagnosis: ESSENTIAL HYPERTENSION[ICD9: 401.9] Diagnosis: DIABETES TYPE II[ICD9: 250.00] Diagnosis: Constipation - functional[ICD9: 564.09] Diagnosis: Abdominal pain[ICD9: 789.00] Amy Cheung MD, [facility] CPT-4: 61687 08/10/2014 ([id number]) 84803 EST. P ATIENT, LEVEL III Diagnosis: Flu vaccine need[ICD9: V04.81] Diagnosis: Neck pain[ICD9: 723.1] Diagnosis: Chronic allergic rhinitis[ICD9: 477.9] Amy Cheung MD, [facility] CPT-4: 57433 05/06/2014 ([id number]) 62365 EST. P ATIENT, LEVEL IV Diagnosis: DM W/O COMPLICATION TYPE II, UNCONTROLLED[ICD9: 250.02] Diagnosis: GENERALIZED ANXIETY DISEASE[ICD9: 300.02] Diagnosis: ESSENTIAL HYPERTENSION[ICD9: 401.9] Diagnosis: Neck pain[ICD9: 723.1] Amy Cheung MD, [facility] CPT-4: 74458 04/14/2014 ([id number]) 20146 EST. P ATIENT, LEVEL IV Diagnosis: ESSENTIAL HYPERTENSION[SNOMED: 01917840] Diagnosis: DIABETES TYPE II[SNOMED: 173967874] Diagnosis: Iliotibial band syndrome[ICD9: 728.89] Diagnosis: DEPRESSIVE DISORDER NEC[ICD9: 311] Diagnosis: GENERALIZED ANXIETY DISEASE[ICD9: 300.02] Amy Cheung MD, [facility] CPT-4: 38121 11/10/2013 ([id number]) 67148 EST. P ATIENT, LEVEL III Diagnosis: DIABETES TYPE II[SNOMED: 980382143] Amy Cheung MD, [facility] CPT- 4: 54758 07/14/2013 ([id number]) 62001 EST. P ATIENT, LEVEL IV Diagnosis: ESSENTIAL HYPERTENSION[SNOMED: 97501536] Diagnosis: DM W/O COMPLICATION TYPE II, UNCONTROLLED[SNOMED: 32855651] Amy Cheung MD, [facility] CPT-4: 74470 06/12/2013 ([id number]) 26648 EST. P ATIENT, LEVEL III Diagnosis: DIABETES TYPE II[SNOMED: 871052273] Amy Cheung MD, [facility] CPT- 4: 60251 05/20/2013 ([id number]) 46982 EST. P ATIENT, LEVEL IV Diagnosis: ESSENTIAL HYPERTENSION[SNOMED: 79369385] Diagnosis: HYPERLIPIDEMIA[ICD9: 272.4] Diagnosis: Type II diabetes mellitus, uncontrolled[SNOMED: 17681342] Amy Cheung MD, [facility] CPT-4: 09997 04/09/2013 ([id number]) 33656 EST. P ATIENT, LEVEL III Diagnosis: ESSENTIAL HYPERTENSION[SNOMED: 00414183] Diagnosis: ENCNTR LONG-RX USE NEC[ICD9: V58.69] Diagnosis: IMPACTED CERUMEN[ICD9: 380.4] Amy Cheung MD, [facility] CPT-4: 35335 01/26/2013 ([id number]) 98335 EST. P ATIENT, LEVEL IV Diagnosis: DIABETES TYPE II[SNOMED: 044797567] Diagnosis: ESSENTIAL HYPERTENSION[SNOMED: 01646783] Diagnosis: Polymyalgia[ICD9: 725] Amy Cheung MD, [facility] CPT-4: 07935 12/23/2012 ([id number]) 79764 EST. P ATIENT, LEVEL III Diagnosis: ACUTE MAXILLARY SINUSITIS[ICD9: 461.0] Diagnosis: COUGH[ICD9: 786.2] Amy Cheung MD, [facility] CPT-4: 98096 12/15/2012 ([id number]) 15265 EST. P ATIENT, LEVEL III Diagnosis: ANAL OR RECTAL PAIN[ICD9: 569.42] Diagnosis: Bruising[ICD9: 924.9] Diagnosis: Hip pain[ICD9: 719.45] Amy Cheung MD, [facility] CPT-4: 85709 10/22/2012 ([id number]) 92690 EST. P ATIENT, LEVEL IV Diagnosis: ESSENTIAL HYPERTENSION[SNOMED: 52347852] Diagnosis: DIABETES TYPE II[SNOMED: 988887207] Amy Cheung MD, [facility] CPT- 4: 07482 08/21/2012 ([id number]) 43583 EST. P ATIENT, LEVEL IV Diagnosis: DIABETES TYPE II[SNOMED: 931089923] Diagnosis: DEPRESSIVE DISORDER NEC[ICD9: 311] [facility] CPT- 4: 05780 07/17/2012 ([id number]) 70735 EST. P ATIENT, LEVEL III Diagnosis: ESSENTIAL HYPERTENSION[SNOMED: 51406067] Diagnosis: DEPRESSIVE DISORDER NEC[ICD9: 311] [facility] CPT- 4: 72932 07/08/2012 39695 EST. PATIENT, LEVEL IV Diagnosis: ESSENTIAL HYPERTENSION[SNOMED: 34595769] Diagnosis: DIABETES TYPE II[SNOMED: 830208421] Amy Cheung MD, [facility] CPT- 4: 00932 06/09/2012 ([id number]) 17152 EST. P ATIENT, LEVEL III Diagnosis: Acute sinusitis[ICD9: 461.9] Diagnosis: FEVER NOS[ICD9: 780.60] Amy Cheung MD, [facility] CPT-4: 24269 02/12/2012 ([id number]) 39580 EST. P ATIENT, LEVEL III Diagnosis: Otalgia of both ears[ICD9: 388.70] Diagnosis: Hemorrhoids[ICD9: 455.6] Diagnosis: Rectal or anal pain[ICD9: 569.42] [facility] CPT-4: 93043 02/05/2012 ([id number]) 77692 EST. P ATIENT, LEVEL IV Diagnosis: Dysuria[ICD9: 788.1] Diagnosis: ACUTE MAXILLARY SINUSITIS[ICD9: 461.0] Diagnosis: Allergic rhinitis[ICD9: 477.9] [facility] CPT-4: 56408 11/14/2011 ([id number]) 59721 EST. P ATIENT, LEVEL IV Diagnosis: DIABETES TYPE II[SNOMED: 779241599] Diagnosis: Cough[ICD9: 786.2] Diagnosis: FEVER NOS[ICD9: 780.60] Amy Cheung MD, [facility] CPT-4: 00220 10/08/2011 19035 EST. PATIENT, LEVEL IV Diagnosis: OTHER CONSTIPATION[ICD9: 564.09] Diagnosis: IMPACTED CERUMEN[ICD9: 380.4] Diagnosis: Recurrent sinusitis[ICD9: 473.9] Amy Cheung MD, [facility] CPT-4: 01913 08/28/2011 74875 EST. PATIENT, LEVEL IV Diagnosis: Neck pain, acute[ICD9: 723.1] Diagnosis: Cough[ICD9: 786.2] Diagnosis: Cerumen impaction[ICD9: 380.4] Amy Cheung MD, [facility] CPT-4: 73490 08/23/2011 20202 EST. PATIENT, LEVEL IV Diagnosis: ESSENTIAL HYPERTENSION[SNOMED: 64096355] Diagnosis: HYPERLIPIDEMIA[ICD9: 272.4] Diagnosis: DIABETES TYPE II[SNOMED: 721267083] Diagnosis: DEPRESSIVE DISORDER NEC[ICD9: 311] Diagnosis: 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[ICD9: 357.7] Amy Cheung MD, [facility] CPT-4: 91724 07/24/2011 22032 EST. PATIENT, LEVEL IV Diagnosis: Abdominal pain[ICD9: 789.00] Diagnosis: Hematochezia[ICD9: 578.1] Diagnosis: Back pain[ICD9: 724.5] Amy Cheung MD, [facility] CPT-4: 61764 06/19/2011 33915 EST. 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 Rx for muscle relaxer sent to patient's pharmacy. Kenalog shot given in clinic today. 12/23/2018 Appointment: Amy Cheung WPtel: [phone] [facility] (15 min) Moderate 12/23/2018 Patient Education: Patient Medication Summary Completed 12/23/2018 Care Plan: X-RAY EXAM THORAC SPINE 2VWS LOINC : 17991-5 Pending 12/23/2018 Visit Plan: Esophageal Reflux - the patient has been counseled against excessive intake of caffeine, spicy foods, peppermint, and cinnamon - all of which can exacerbate esophageal reflux. The patient is to take medications as prescribed and call the office if the symptoms are not improving. Advised pt to use lactaid pills 06/12/2018 Appointment: Amy Cheung WPtel: [phone] [facility] (15 min) Moderate 06/12/2018 Appointment: Riya Sheikh WPtel: [phone] [facility] - Annual Wellness Visit 06/12/2018 Patient Education: Patient Medication Summary Completed 06/12/2018 Visit Plan: Esophageal Reflux - the patient has been counseled against excessive intake of caffeine, spicy foods, peppermint, and cinnamon - all of which can exacerbate esophageal reflux. The patient is to take medications as prescribed and call the office if the symptoms are not improving. Fkcfm-hgbdpqupx-gjbahbu injection today in the office -start claritin [...] controlled. 04/01/2018 Appointment: Amy Cheung WPtel: [phone] [facility] [place] (15 min) Moderate 04/01/2018 Patient Education: Patient Medication Summary Completed 04/01/2018 Patient Education: Patient Medication Summary Completed 03/31/2018 Appointment: Amy Cheung WPtel: [phone] [facility] [place] (15 min) Moderate 01/15/2018 Visit Plan: [...] home. 11/25/2017 [facility]ment[phone] [place] ([facility] min) Moderate 11/25/2017 Patient Education: [...] nystatin 09/18/2017 Appointment: Amy Cheung WPtel: [phone] [facility] (15 min) Moderate 09/18/2017 Patient Education: Patient [...] shot today 05/02/2017 Appointment: Amy Cheung WPtel: [phone] [facility] (15 min) Moderate 05/02/2017 Patient Education: Patient Medication Summary Completed 05/02/2017 Appointment: Amy Cheung WPtel: [phone] [facility] (15 min) Moderate 04/15/2017 Visit Plan: Thrush-discussed natura l and expected course of this diagnosis and to alert me if symptoms do not follow expected course, or if any worse. RX sent to patient's pharmacy. Patient verbalized understanding of plan. 03/29/2017 Appointment: Riya Sheikh WPtel: [phone] [phone] [place] (30 min) Complex 03/29/2017 Patient Education: Patient Medication Summary Completed 03/29/2017 Patient Education: Obesity Completed 03/29/2017 Appointment: [facility]ung [facility]el[phone] (15 min) Moderate 03/14/2017 Visit Plan: Diabetes [...] at home. 11/15/2016 Appointment: Amy Cheung WPtel: [facility] [place] (15 min) Moderate 11/15/2016 Patient Education: Patient Medication Summary Completed 11/15/2016 Appointment: Amy Cheung WPtel: [facility] [place] (15 min) Moderate 11/07/2016 Visit Plan: [...] control. 11/06/2016 [phone] ([facility] Complex 11/06/2016 Patient Education: Patient Medication Summary Completed 11/06/2016 Patient Education: Patient Medication Summary Completed 09/19/2016 Patient Education: Patient Medication Summary Completed 08/22/2016 Care Plan: Comp Metabolic Pending 08/22/2016 Care Plan: %Hba1C she can have drawn anytime after 09/04/16 LOINC : 74100-9 Pending 08/22/2016 Visit Plan: Diabetes Mellitus - [...] bring in copy to clinic. 08/01/2016 Appointment: mAy Cheung [facility]Ptel: [phone] (15 min) Moderate 08/01/2016 Patient Education: Patient Medication Summary Completed 08/01/2016 Appointment: Amy Cheung WPtel: [phone] [place] (15 min) Moderate 07/09/2016 Visit Plan: [...] GI motility 07/02/2016 Appointment: Amy Cheung [facility]Ptel[phone] (15 min) Moderate 07/02/2016 Patient Education: Patient [...] of control. 06/04/2016 Appointment: [facility] Cheung WPtel[phone] (15 min) Moderate 06/04/2016 Patient Education: Patient [...] to medications. 03/26/2016 Appointment: Amy Cheung WPtel: [phone] (15 min) Moderate 03/26/2016 Patient Education: Patient [...] Hypertension Completed 10/14/2015 Appointment: Amy Cheung WPtel: [phone] [place] (15 min) Moderate 10/13/2015 Appointment: Amy Cheung WPtel: [phone] [facility] (15 min) Moderate 05/09/2015 Visit Plan: Diabetes [...] cancer. 03/31/2015 Appointment: Amy Cheung WPtel: [address] (15 min) Moderate 03/31/2015 Patient Education: Patient Medication Summary Completed 03/31/2015 Patient Education: Hypertension Completed 03/31/2015 Appointment: (15 min) Moderate 02/11/2015 Appointment: Amy Cheung WPtel: [phone] [facility] Sick 09/29/2014 Visit Plan: Diabetes Mellitus [...] months. 08/31/2014 Appointment: [facility]Ptel: [phone] Follow up 08/31/2014 Patient Education: Patient Medication [...] Hypertension Completed 08/10/2014 Appointment: Amy Cheung WPtel: [phone] [facility] Follow up 05/10/2014 Visit Plan: Allergies - [...] be ordered. 05/06/2014 Appointment: Amy Cheung WPtel: [address] [facility] Follow up 05/06/2014 Patient Education: Patient Medication Summary Completed 05/06/2014 Patient Education: .Cervicalgia Neck Pain Completed 05/06/2014 Appointment: Amy Cheung [facility]Ptel: [phone] Follow up 05/05/2014 Visit Plan: Hypertension - [...] neck. 04/14/2014 Appointment: Amy Cheung WPtel: [phone] Follow up 04/14/2014 Patient Education: Patient Medication [...] handout on Ilitibial band exercises. 11/10/2013 Appointment: Skye Amy WPtel: [phone] [facility] Other 11/10/2013 Patient Education: Patient Medication [...] monitor symptoms. 07/14/2013 Appointment: Amy Cheung WPtel: [facility] Other 07/14/2013 Patient Education: Patient Medication Summary Completed 07/14/2013 Appointment: [phone] Follow up 07/13/2013 Visit Plan: Hypertension - [...] control. 06/12/2013 Appointment: Riya Sheikh WPtel: [phone] [phone] Other 06/12/2013 Patient Education: Patient Medication [...] to patient. 05/20/2013 Appointment: Amy Cheung WPtel: [facility] Follow up 05/20/2013 Patient Education: Patient Medication Summary Completed 05/20/2013 Appointment: Amy Cheung WPtel: [facility] Follow up 05/07/2013 Appointment: Amy Cheung WPtel: [facility] [place] Lab Draw 04/27/2013 Patient Education: Patient [...] a copy of this note to her Coin Wrapping Machine Operator - Dr. Kraus as he will [...] Glyburide restarted. 04/09/2013 Appointment: Amy Cheung WPtel: [address] [place], [place] [phone] Follow up 04/09/2013 Patient Education: Patient Medication Summary Completed 04/09/2013 Patient Education: Hypertension Completed 04/09/2013 Appointment: Amy Cheung WPtel: [address] [place], [place] [phone] [place] Follow up 03/30/2013 Visit Plan: Hypertension [...] water today 01/26/2013 Appointment: Amy Cheung WPtel: [facility] Other 01/26/2013 Patient Education: Patient Medication [...] at home. 12/23/2012 Appointment: Amy Cheung WPtel: [address] [place], [place] [phone] Follow up 12/23/2012 Patient Education: Patient Medication Summary Completed 12/23/2012 Patient Education: Hypertension Completed 12/23/2012 Visit Plan: Sinusitis - Pt has acut e infection - pain in face, maxillary region, Pt informed to use decongestant, RX given to patient, sinus rinses also recommended. Call if symptoms do not show improvement. 12/15/2012 Appointment: Amy Cheung WPtel: [address] [place], [place] [phone] Sick 12/15/2012 Patient Education: Patient Medication Summary Completed 12/15/2012 Visit Plan: Bruising and pain post fall- with hip pain - recommended pt to have xray of hips and pelvis and lumbar spine as she is having the pain in her hips post fall. 10/22/2012 Appointment: Amy Cheung WPtel: [facility] Other 10/22/2012 Patient Education: Patient Medication Summary Completed 10/22/2012 Appointment: Amy Cheung WPtel: [address] [place], [place] [phone] Follow up 09/30/2012 Visit Plan: Hypertension - [...] controlled. 08/21/2012 Appointment: [facility] Cheung [facility]Ptel: [phone] Follow up 08/21/2012 Patient Education: Patient Medication [...] that [facility] can [facility] can [facility] and change together. No change to Pat's medications today. Time based documentation -I spent over 40 minutes with the patient in discussion of the disease process, expected course, and overall prognosis for the patient's disease state. The patient/family expressed understanding. 07/17/2012 Appointment: Amy Cheung WPtel: [phone] Follow up 07/17/2012 Patient Education: Patient Medication [...] today. 07/08/2012 Appointment: Amy Cheung WPtel: [phone] Other 07/08/2012 Patient Education: Patient Medication Summary Completed 07/08/2012 Patient Education: Hypertension Completed 07/08/2012 Visit Plan: Diabetes Mellitus - eleuterio harper [...] labs checked. 06/09/2012 Appointment: Amy Cheung WPtel: [address] [place] [address] Other 06/09/2012 Patient Education: Patient Medication Summary Completed 06/09/2012 Patient Education: High Blood Pressure: Essential Hypertension Completed 06/09/2012 Visit Plan: Sinusitis - Pt has acut e infection - pain in face, maxillary region, Pt informed to use decongestant, RX given to patient, sinus rinses also recommended. Call if symptoms do not show improvement. 02/12/2012 Appointment: Amy Cheung WPtel: [address] [place] [address] Other 02/12/2012 Patient Education: Patient Medication Summary [...] in place. 02/05/2012 Appointment: Amy Cheung WPtel: [address] [facility] Other 02/05/2012 Patient Education: Patient Medication Summary [...] any worse. [place] [facility] you with the results. Allergies - chronic - recommended pt to use allergy medication as prescribed. Pt has been counseled as the the appropriate use of the medication. Pt to call if allergy symptoms are not controlled with the medication. Dysuria - UA negative 11/14/2011 Appointment: Amy Cheung WPtel: [address] [place] [address] Other 11/14/2011 Appointment: Amy Cheung WPtel: [address] [place] [address] Other 11/14/2011 Patient Education: Patient Medication Summary [...] patient today. 10/08/2011 Appointment: Amy Cheung WPtel: [facility] Other 10/08/2011 Patient Education: Patient Medication Summary [...] removal process. 08/28/2011 Appointment: Amy Cheung WPtel: [address] [place] [address] Other 08/28/2011 Patient Education: Patient Medication Summary [...] in readings. 07/24/2011 Appointment: Amy Cheung WPtel: [address] [place] [address] Other 07/24/2011 Patient Education: Patient Medication Summary [...] lower back. 06/19/2011 Appointment: Amy Cheung WPtel: [address] [place] [address] Other 06/19/2011 Patient Education: Patient Medication Summary [...] neuropathic symptoms. 06/05/2011 Appointment: Amy Cheung WPtel: [address] [place] [address] Other 06/05/2011 Patient Education: Patient Medication Summary [...] a copy of this note to her Coin Wrapping Machine Operator - Dr. Kraus as he will [...] are starting to become less controlled. . Diabetes Mellitus - controlled - per [...] Depression - spousal dysfunction - recommended for Char to approach Angel about sounseling and give him space to start improving his behaviors so that she can have an environment [facility] can [facility] and change together. No change to Char's medications today. Time based documentation -I spent [...] use lactaid pills I [facility] [...] office if the symptoms are not improving. Rzvyj-hzacacmuj-yatfejs injection today in the office -start claritin [...] any worse. [place] [facility] you with the results. [...] any worse. Check your thyroid labs [place] [facility] call you with the results. [...] almost every day x 9 months. george [email or web address] . Allergies - chronic - recommended pt [...]
--- OUTSIDE RECORDS SUMMARY | 2019-08-12 22:54 | XMS REPORT | CCD ---
Author Author Veronica Cheung Organization Amy Cheung MD, [facility] Address [address] [place] [address] Phone Care Team Providers Care Data Entry Representative Name Role Phone PP Unavailable CCM Unavailable Summary Purpose Interface Exchange Insurance Providers Payer name Policy type / Coverage type Covered constitution party ID Effective Begin Date Effective End Date WPS Medicare Part B Medicare Part B [id number] Unknown GEHA Medicare Part B [id number] Unknown Family history Father Diagnosis Age At [...] Date Stop Date Sta tus Fill Instructions Nexium 40 mg capsule ,delayed release RxNorm: 964282 TAKE 1 CAPSULE TWICE DAILY 01/15/2019 01/09/2020 Ac tive Lialda 1.2 gram tabl et,delayed release RxNorm: 464622 2 Tablet(s) PO daily 12/23/2018 No Stop Date Active Kenalog 40 mg/mL elizabeth pension for injection RxNorm: 8689749 Milliliter(s) Inj 12/23/2018 12/23/2018 In active cyclobenzaprine 5 mg tablet RxNorm: 859959 1 Tablet(s) PO TID x 3 days then as needed for muscle spasms 12/23/2018 01/01/2019 Inactive furosemide 40 mg tablet RxNorm: 099242 TAKE 1 TABLET DAILY 12/01/2018 08/27/2019 Active Effexor XR 75 mg cap alma,extended release RxNorm: 465736 1 Capsule(s) PO daily 09/16/2018 09/10/2019 Ac tive levothyroxine 25 mcg tablet RxNorm: 156561 Tablet(s) TAKE 1 TABL ET DAILY 08/26/2018 02/21/2019 Ac tive montelukast 10 mg ta blet RxNorm: 222528 TAKE 1 TABLET DAILY 07/21/2018 07/15/2019 Active Augmentin 500 mg-125 mg tablet RxNorm: 712110 1 Tablet(s) PO TID 05/27/2018 05/26/2018 Inactive Augmentin 500 mg-125 mg tablet RxNorm: 855054 1 Tablet(s) PO TID 05/27/2018 06/02/2018 Inactive Kenalog 40 mg/mL elizabeth pension for injection RxNorm: 3139406 1 Milliliter(s) Inj 05/26/2018 05/26/2018 In active pilocarpine 5 mg tablet RxNorm: 6414010 Tablet(s) TAKE 4 TABLETS DAILY 04/22/2018 07/15/2019 Ac tive Trulicity 1.5 mg/0.5 mL subcutaneous pen injector RxNorm: 0619647 INJECT 0.5ML SUBCUTANEOUSLY EVERY WEEK 02/24/2018 04/29/2019 Active levothyroxine 25 mcg tablet RxNorm: 142560 TAKE 1 TABLET DAILY 02/13/2018 08/11/2018 Inactive mesalamine 800 mg ta blet,delayed release RxNorm: 753628 TAKE 1 TABLET TWICE A DAY 12/10/2017 12/04/2018 In active metformin 500 mg tablet RxNorm: 997356 1.5 Tablet(s) PO BID 11/25/2017 11/19/2018 Inactive levothyroxine 25 mcg tablet RxNorm: 584990 TAKE 1 TABLET DAILY 11/19/2017 02/12/2018 Inactive Nexium 40 mg capsule ,delayed release RxNorm: 537367 TAKE 1 CAPSULE TWICE DAILY 11/15/2017 11/09/2018 In active Effexor XR 75 mg cap alma,extended release RxNorm: 157721 1 Capsule(s) PO daily 10/14/2017 09/15/2018 In active Bactroban 2 % topica l cream RxNorm: 477428 1 Application TOP TID 09/18/2017 09/27/2017 Inactive nystatin 100,000 uni t/mL oral suspension RxNorm: 509562 5 Milliliter(s) PO TI D 09/18/2017 09/27/2017 In active oxazepam 10 mg capsule RxNorm: 603243 1 Capsule(s) PO TID as needed anxiety 09/02/2017 02/28/2018 In active fluticasone 50 mcg/a ctuation nasal spray,suspension RxNorm: 8805075 [place] USE ONE SPRAY IN EACH NOSTRIL TWICE A DAY 08/29/2017 12/26/2017 Inactive oxazepam 10 mg capsule RxNorm: 808080 1 Capsule(s) PO TID as needed anxiety 08/29/2017 09/01/2017 In active furosemide 40 mg tablet RxNorm: 327487 TAKE 1 TABLET DAILY 08/26/2017 08/20/2018 Inactive pilocarpine 5 mg tablet RxNorm: 2638545 TAKE 4 TABLETS DAILY 08/26/2017 04/21/2018 Inactive metformin 500 mg tablet RxNorm: 416915 TAKE 1 TABLET TWICE A DAY 08/20/2017 11/24/2017 Inactive Claritin-D 12 Hour 5 mg-120 mg tablet,extended release RxNorm: 0594598 Tablet(s) TAKE ONE (1) TABLET BY MOUTH TWICE DAILY 07/29/2017 12/22/2018 Inactive fluticasone 50 mcg/a ctuation nasal spray,suspension RxNorm: 6905069 [place] USE ONE SPRAY IN EACH NOSTRIL TWICE A DAY 07/25/2017 07/24/2017 Inactive fluticasone 50 mcg/a ctuation nasal spray,suspension RxNorm: 9484865 [place] USE ONE SPRAY IN EACH NOSTRIL TWICE A DAY 07/25/2017 08/28/2017 Inactive fluticasone 50 mcg/a ctuation nasal spray,suspension RxNorm: 6017387 [place] USE ONE SPRAY IN EACH NOSTRIL TWICE A DAY 06/04/2017 07/24/2017 Inactive montelukast 10 mg ta blet RxNorm: 130119 TAKE 1 TABLET DAILY 06/03/2017 05/28/2018 Inactive levothyroxine 25 mcg tablet RxNorm: 966522 TAKE 1 TABLET DAILY 05/13/2017 11/08/2017 Inactive Voltaren 1 % topical gel RxNorm: 130217 2 Gram(s) TOP QID 05/02/2017 2017 Inactive nystatin 100,000 uni t/mL oral suspension RxNorm: 826622 5 Milliliter(s) PO QI D 03/29/2017 04/11/2017 In active Diflucan 150 mg tablet RxNorm: 431364 1 Tablet(s) PO daily 03/29/2017 05/01/2017 Inactive Trulicity 1.5 mg/0.5 mL subcutaneous pen injector RxNorm: 8711826 INJECT 0.5ML SUBCUTANEOUSLY EVERY WEEK 02/28/2017 01/29/2018 Inactive levothyroxine 25 mcg tablet RxNorm: 669484 1 Tablet(s) PO daily 11/19/2016 11/18/2016 Inactive levothyroxine 25 mcg tablet RxNorm: 619731 1 Tablet(s) PO daily 11/19/2016 05/12/2017 Inactive Claritin 10 mg tablet RxNorm: 812521 1 Tablet(s) PO daily 11/07/2016 11/06/2016 Inactive Claritin 10 mg tablet RxNorm: 335727 1 Tablet(s) PO daily 11/07/2016 12/06/2016 Inactive Zithromax Z-Ankit 250 mg tablet RxNorm: 136457 1 Tablet(s) PO UD 11/07/2016 05/01/2017 Inactive oxazepam 10 mg capsule RxNorm: 053077 1 Capsule(s) PO TID as needed anxiety 11/01/2016 12/30/2016 In active Nexium 40 mg capsule ,delayed release RxNorm: 627860 1 Capsule(s) PO BID 10/25/2016 10/19/2017 In active Claritin-D 12 Hour 5 mg-120 mg tablet,extended release RxNorm: 2250784 Tablet(s) TAKE ONE (1) TABLET BY MOUTH TWICE DAILY 10/25/2016 12/23/2016 Inactive mesalamine 800 mg ta blet,delayed release RxNorm: 220879 1 Tablet(s) PO BID 09/18/2016 09/17/2016 In active mesalamine 800 mg ta blet,delayed release RxNorm: 534793 1 Tablet(s) PO BID 09/18/2016 06/14/2017 In active Effexor XR 75 mg cap alma,extended release RxNorm: 314465 1 Capsule(s) PO daily 08/30/2016 08/24/2017 In active metformin 500 mg tablet RxNorm: 627116 1 Tablet(s) PO BID 08/17/2016 08/11/2017 Inactive oxazepam 10 mg capsule RxNorm: 146735 1 Capsule(s) PO TID as needed anxiety 08/17/2016 10/15/2016 In active Claritin-D 12 Hour 5 mg-120 mg tablet,extended release RxNorm: 3997754 TAKE ONE (1) TABLET BY MOUTH TWICE DAILY... 08/16/2016 10/24/2016 Inactive furosemide 40 mg tablet RxNorm: 719067 1 Tablet(s) daily TAKE 1 TABLET DAILY 08/14/2016 08/08/2017 In active Effexor XR 75 mg cap alma,extended release RxNorm: 027432 1 Capsule(s) PO daily 08/14/2016 08/29/2016 In active pilocarpine 5 mg tablet RxNorm: 2159578 4 Tablet(s) PO daily TAKE 4 TABLETS YARI Y 08/14/2016 08/08/2017 In active metoclopramide 5 mg tablet RxNorm: 180094 1/2 to 1 Tablet(s) PO TID for nause and GI dysmotility 07/02/2016 11/14/2016 Inactive Effexor XR 75 mg cap alma,extended release RxNorm: 952507 1 Capsule(s) PO daily 07/02/2016 08/13/2016 In active metformin 500 mg tablet RxNorm: 600225 1/2 TABLET(S) PO BID X2 WEEKS THEN INCRE ASE TO 1 TABLET PO BID THEREAFTER 06/26/2016 08/16/2016 Inactive 30 day supply Claritin-D 12 Hour 5 mg-120 mg tablet,extended release RxNorm: 6896131 1 Tablet(s) PO BID 06/18/2016 08/15/2016 Inactive montelukast 10 mg ta blet RxNorm: 440141 1 Tablet(s) PO daily 06/13/2016 06/02/2017 Inactive metformin 500 mg tablet RxNorm: 717405 1/2 Tablet(s) PO BID x2 weeks then incre ase to 1 Tablet PO BID thereafter 06/07/2016 06/06/2016 Inactive 30 day supply metformin 500 mg tablet RxNorm: 621167 1/2 Tablet(s) PO BID x2 weeks then incre ase to 1 Tablet PO BID thereafter 06/07/2016 06/25/2016 Inactive 30 day supply Diflucan 150 mg tablet RxNorm: 620240 1 Tablet(s) PO daily 03/27/2016 04/02/2016 Inactive nystatin 100,000 uni t/mL oral suspension RxNorm: 716326 5 Milliliter(s) PO QI D 03/27/2016 04/05/2016 In active nystatin 100,000 uni t/mL oral suspension RxNorm: 181688 5 Milliliter(s) PO QI D 03/27/2016 03/26/2016 In active Diflucan 150 mg tablet RxNorm: 327267 1 Tablet(s) PO daily 03/27/2016 03/26/2016 Inactive Effexor XR 75 mg cap alma,extended release RxNorm: 076983 1 Capsule(s) PO daily 03/26/2016 07/01/2016 In active this replaces the 150mg dose - we are we aning down her dose Trulicity 1.5 mg/0.5 mL subcutaneous pen injector RxNorm: 0231652 0.5 Milliliter(s) SQ QW 03/26/2016 02/27/2017 Inactive Trulicity 0.75 mg/0. 5 mL subcutaneous pen injector RxNorm: 0116562 1 injection SQ QW 03/13/2016 06/03/2016 Inactive Trulicity 0.75 mg/0. 5 mL subcutaneous pen injector RxNorm: 2072627 1/2 Milliliter(s) SQ QW 03/13/2016 03/12/2016 Inactive glyburide 2.5 mg tablet RxNorm: 108809 1/2 Tablet(s) PO BID 03/13/2016 03/25/2016 Inactive glyburide 2.5 mg tablet RxNorm: 115147 1/2 Tablet(s) PO BID 03/13/2016 03/12/2016 Inactive Claritin-D 12 Hour 5 mg-120 mg tablet,extended release RxNorm: 6082067 1 Tablet(s) PO BID 02/03/2016 10/24/2016 Inactive Synthroid 25 mcg tablet RxNorm: 643578 1 Tablet(s) PO daily 01/23/2016 11/18/2016 Inactive Synthroid 25 mcg tablet RxNorm: 707924 1 Tablet(s) PO daily 01/23/2016 01/22/2016 Inactive Claritin-D 12 Hour 5 mg-120 mg tablet,extended release RxNorm: 4578790 1 Tablet(s) PO BID 12/05/2015 05/31/2016 Inactive Effexor XR 150 mg ca psule,extended release RxNorm: 431080 TAKE 1 CAPSULE DAILY 12/05/2015 03/25/2016 In active Bydureon 2 mg/0.65 m L subcutaneous pen injector RxNorm: 9014300 2 Milligram(s) SQ QW 10/14/2015 03/12/2016 Inactive oxazepam 10 mg capsule RxNorm: 745916 1 Capsule(s) PO TID PRN as needed anxiet y 10/14/2015 04/10/2016 In active Nexium 40 mg capsule ,delayed release RxNorm: 556796 1 Capsule(s) BID TAKE 1 CAPSULE DAILY 10/14/2015 10/07/2016 Inactive this is a new RX - fill the twice daily dose instead of once daily dose Effexor XR 150 mg ca psule,extended release RxNorm: 115683 1 Capsule(s) PO daily TAKE 1 CAPSULE DAILY 10/03/2015 03/25/2016 Inactive pilocarpine 5 mg tablet RxNorm: 7216820 4 Tablet(s) PO daily TAKE 4 TABLETS YARI Y 08/09/2015 02/04/2016 In active pilocarpine 5 mg tablet RxNorm: 7456948 4 Tablet(s) PO daily TAKE 4 TABLETS YARI Y 07/26/2015 08/08/2015 In active Claritin-D 12 Hour 5 mg-120 mg tablet,extended release RxNorm: 6043517 1 Tablet(s) PO BID 05/02/2015 10/24/2016 Inactive furosemide 40 mg tablet RxNorm: 728100 1 Tablet(s) daily TAKE 1 TABLET DAILY 03/31/2015 03/24/2016 In active Nexium 40 mg capsule ,delayed release RxNorm: 216419 1 Capsule(s) BID TAKE 1 CAPSULE DAILY 03/31/2015 10/13/2015 Inactive this is a new RX - fill the twice daily dose instead of once daily dose Nexium 40 mg capsule ,delayed release RxNorm: 124746 1 Capsule(s) daily TA KE 1 CAPSULE DAILY 03/31/2015 03/30/2015 Inactive montelukast 10 mg ta blet RxNorm: 997211 1 Tablet(s) PO daily 03/31/2015 03/24/2016 Inactive Synthroid 25 mcg tablet RxNorm: 579167 1 Tablet(s) PO daily 01/17/2015 01/11/2016 Inactive Synthroid 25 mcg tablet RxNorm: 608692 1 Tablet(s) PO daily 01/03/2015 01/16/2015 Inactive Claritin-D 12 Hour 5 mg-120 mg tablet,extended release RxNorm: 6320139 1 Tablet(s) PO BID 12/29/2014 05/01/2015 Inactive Synthroid 25 mcg tablet RxNorm: 102718 1 Tablet(s) PO daily 12/20/2014 01/02/2015 Inactive Synthroid 25 mcg tablet RxNorm: 256711 1 Tablet(s) PO daily 12/07/2014 12/19/2014 Inactive Effexor XR 150 mg ca psule,extended release RxNorm: 307482 1 Capsule(s) PO daily TAKE 1 CAPSULE DAILY 11/30/2014 10/02/2015 Inactive Nexium 40 mg capsule ,delayed release RxNorm: 508914 Capsule(s) TAKE 1 CAP ALMA DAILY 11/30/2014 03/30/2015 In active fenofibric acid (cho line) 135 mg capsule,delayed release RxNorm: 770387 1 Capsule(s) PO daily 08/31/2014 08/25/2015 Inactive Bydureon 2 mg subcut aneous extended release suspension RxNorm: 6652859 1 injection SQ QW 07/21/2014 07/15/2015 Inactive fluticasone 50 mcg/a ctuation nasal spray,suspension RxNorm: 3561503 USE ONE SPRAY IN EACH NOSTRIL TWICE A DAY 07/06/2014 06/03/2017 Inactive Lipitor 10 mg tablet RxNorm: 886929 TAKE 1 TABLET AT BEDTIME 06/15/2014 10/13/2015 Inactive furosemide 40 mg tablet RxNorm: 979771 TAKE 1 TABLET DAILY 06/15/2014 03/30/2015 Inactive oxazepam 10 mg capsule RxNorm: 947752 1 Capsule(s) PO TID PRN as needed anxiet y 06/11/2014 12/07/2014 In active montelukast 10 mg ta blet RxNorm: 977646 1 Tablet(s) PO daily 05/25/2014 03/30/2015 Inactive oxazepam 10 mg capsule RxNorm: 399943 1 Capsule(s) PO TID PRN as needed anxiet y 05/06/2014 06/10/2014 In active montelukast 10 mg ta blet RxNorm: 313845 1 Tablet(s) PO daily 05/04/2014 05/24/2014 Inactive Nexium 40 mg capsule ,delayed release RxNorm: 335020 TAKE 1 CAPSULE DAILY 03/25/2014 11/29/2014 In active Nexium 40 mg capsule ,delayed release RxNorm: 208534 1 Capsule(s) PO daily TAKE 1 CAPSULE DAILY 03/02/2014 03/24/2014 Inactive oxazepam 10 mg capsule RxNorm: 991834 1 Capsule(s) PO TID PRN as needed 02/24/2014 04/24/2014 In active pilocarpine 5 mg tablet RxNorm: 0324076 TAKE 4 TABLETS DAILY 02/01/2014 07/25/2015 Inactive Claritin-D 12 Hour 5 mg-120 mg tablet,extended release RxNorm: 7363429 1 Tablet(s) PO BID 12/24/2013 10/24/2016 Inactive Effexor XR 150 mg ca psule,extended release RxNorm: 758177 1 Capsule(s) PO daily TAKE 1 CAPSULE DAILY 12/24/2013 11/29/2014 Inactive Klor-Con 10 mEq tabl et,extended release RxNorm: 511824 1 Tablet(s) PO daily 12/24/2013 10/13/2015 In active Bydureon 2 mg subcut aneous extended release suspension RxNorm: 5915918 1 injection SQ QW 12/07/2013 07/20/2014 Inactive Synthroid 25 mcg tablet RxNorm: 899383 1 Tablet(s) PO daily 12/02/2013 11/26/2014 Inactive Klor-Con 10 mEq tabl et,extended release RxNorm: 705892 1 Tablet(s) PO daily take 2 daily x 1 week then one daily thereafter 12/02/2013 12/23/2013 Inactive oxazepam 10 mg capsule RxNorm: 425571 1 Capsule(s) PO TID PRN 11/10/2013 01/08/2014 Inactive omeprazole 20 mg cap alma,delayed release RxNorm: 597354 1 Capsule(s) PO daily 11/10/2013 04/13/2014 In active Synthroid 50 mcg tablet RxNorm: 348685 Tablet(s) PO TAKE 1 TABLET DAILY 09/21/2013 12/01/2013 In active furosemide 40 mg tablet RxNorm: 188279 Tablet(s) PO TAKE 1 TABLET DAILY 09/21/2013 06/14/2014 In active Bydureon 2 mg subcut aneous extended release suspension RxNorm: 2390191 1 injection SQ QW 07/22/2013 12/06/2013 Inactive Bydureon 2 mg subcut aneous extended release suspension RxNorm: 1331499 1 injection SQ QW 07/14/2013 07/21/2013 Inactive Nexium 40 mg capsule ,delayed release RxNorm: 515813 Capsule(s) PO TAKE 1 CAPSULE DAILY 06/18/2013 11/09/2013 Inactive fluticasone 50 mcg/a ctuation nasal spray,suspension RxNorm: 619965 1 [place] NASAL BID 06/18/2013 07/05/2014 Inactive Lipitor 10 mg tablet RxNorm: 607584 Tablet(s) PO every other day 1 tablet qo d 06/18/2013 06/12/2014 In active losartan 25 mg tablet RxNorm: 037404 1 Tablet(s) PO daily 1 daily for blood p ressure 06/18/2013 10/15/2013 Inactive Toprol XL 25 mg tabl et,extended release RxNorm: 316682 1 Tablet(s) PO daily 06/18/2013 06/12/2014 In active Toprol XL 25 mg tabl et,extended release RxNorm: 699236 1 Tablet(s) PO daily 06/12/2013 06/17/2013 In active losartan 25 mg tablet RxNorm: 059271 1 Tablet(s) PO daily 1 daily for blood p ressure 06/12/2013 06/17/2013 Inactive Lipitor 10 mg tablet RxNorm: 746101 Tablet(s) PO every other day 1 tablet qo d 06/12/2013 06/17/2013 In active Effexor XR 150 mg ca psule,extended release RxNorm: 279302 1 Capsule(s) PO daily TAKE 1 CAPSULE DAILY 05/27/2013 12/23/2013 Inactive Bydureon 2 mg subcut aneous extended release suspension RxNorm: 9918665 1 injection SQ QW 05/20/2013 07/13/2013 Inactive Lipitor 10 mg tablet RxNorm: 759057 Tablet(s) PO every other day 1 tablet qo d 05/20/2013 06/11/2013 In active Pen Needle 32 x 5/32" RxNorm: Miscellaneous use with byetta pen 05/07/2013 09/03/2013 Inactive Effexor XR 150 mg ca psule,extended release RxNorm: 171688 1 Capsule(s) PO daily TAKE 1 CAPSULE DAILY 05/07/2013 05/26/2013 Inactive Pen Needle 32 x 5/32" RxNorm: Miscellaneous use with byetta pen 05/06/2013 05/06/2013 Inactive Pen Needle 32 x 5/32" RxNorm: Miscellaneous use with byetta pen 05/06/2013 05/05/2013 Inactive Byetta 5 mcg/0.02 mL per dose Sub-Q Pen Injector RxNorm: 800502 1 Unit Dose SQ BID 04/29/2013 05/19/2013 In active metformin ER 500 mg tablet,extended release 24 hr RxNorm: 458831 1 Tablet(s) PO BID 04/28/2013 06/19/2013 In active Byetta 5 mcg/0.02 mL per dose Sub-Q Pen Injector RxNorm: 059309 1 Unit Dose SQ BID 04/28/2013 04/27/2013 In active Byetta 5 mcg/0.02 mL per dose Sub-Q Pen Injector RxNorm: 560133 1 Unit Dose SQ BID 04/28/2013 04/28/2013 In active Influenza Virus Vacc ine 0.5 mL RxNorm: IM 04/27/2013 04/27/2013 Inactive glyburide 2.5 mg tablet RxNorm: 413912 1 Tablet(s) PO BID 04/27/2013 04/27/2013 Inactive glyburide 2.5 mg tablet RxNorm: 647966 1/2 Tablet(s) PO daily 04/13/2013 04/26/2013 Inactive glyburide 2.5 mg tablet RxNorm: 035173 1 Tablet(s) PO daily 04/09/2013 04/12/2013 Inactive metformin ER 500 mg tablet,extended release 24 hr RxNorm: 127938 2 Tablet(s) PO BID 04/09/2013 04/27/2013 In active Lipitor 10 mg tablet RxNorm: 797793 Tablet(s) PO TAKE 1 TABLET AT BEDTIME 03/17/2013 05/19/2013 In active losartan 25 mg tablet RxNorm: 813217 1 Tablet(s) PO daily 02/12/2013 06/11/2013 Inactive montelukast 10 mg ta blet RxNorm: 281760 1 Tablet(s) PO daily 02/09/2013 02/08/2013 Inactive montelukast 10 mg ta blet RxNorm: 509195 1 Tablet(s) PO daily 02/09/2013 02/03/2014 Inactive losartan 25 mg tablet RxNorm: 079755 1 Tablet(s) PO daily 02/09/2013 02/11/2013 Inactive losartan 25 mg tablet RxNorm: 621399 1 Tablet(s) PO daily 01/26/2013 02/08/2013 Inactive Effexor XR 150 mg ca psule,extended release RxNorm: 037192 Capsule(s) PO TAKE 1 CAPSULE DAILY 12/24/2012 05/06/2013 Inactive metformin ER 500 mg tablet,extended release 24 hr RxNorm: 848799 Tablet(s) PO TAKE 2 TABLETS TWICE A DAY 12/24/2012 04/08/2013 Inactive pilocarpine 5 mg tablet RxNorm: 7832952 Tablet(s) PO TAKE 4 TABLETS DAILY 12/24/2012 01/31/2014 In active levofloxacin 500 mg tablet RxNorm: 226176 1 Tablet(s) PO daily 12/15/2012 12/19/2012 Inactive Nexium 40 mg capsule ,delayed release RxNorm: 227506 Capsule(s) PO daily T MILO 1 CAPSULE DAILY 11/03/2012 06/17/2013 Inactive Claritin-D 12 Hour 5 mg-120 mg tablet,extended release RxNorm: 9272936 1 Tablet(s) PO BID 10/29/2012 10/23/2013 Inactive TAKE 1 TABLET BY MOUTH TWICE DAILY fluticasone 50 mcg/a ctuation nasal spray,suspension RxNorm: 7324083 1 [place] NASAL BID 10/08/2012 06/17/2013 Inactive Claritin-D 12 Hour 5 mg-120 mg tablet,extended release RxNorm: 2890610 1 Tablet(s) PO BID 09/09/2012 2012 Inactive TAKE 1 TABLET BY MOUTH TWICE DAILY montelukast 10 mg ta blet RxNorm: 256192 1 Tablet(s) PO daily 08/20/2012 02/08/2013 Inactive Synthroid 50 mcg tablet RxNorm: 340227 Tablet(s) PO TAKE 1 TABLET DAILY 08/18/2012 09/20/2013 In active Nexium 40 mg capsule ,delayed release RxNorm: 881747 Capsule(s) PO TAKE 1 CAPSULE DAILY 08/18/2012 11/02/2012 Inactive furosemide 40 mg tablet RxNorm: 635901 Tablet(s) PO TAKE 1 TABLET DAILY 08/18/2012 09/20/2013 In active Klor-Con 10 mEq tabl et,extended release RxNorm: 524305 Tablet(s) PO TAKE 1 T ABLET DAILY 08/18/2012 12/01/2013 Inactive Xanax 0.5 mg tablet RxNorm: 485445 1 Tablet(s) PO Q6 PRN 07/17/2012 10/13/2015 Inactive Zithromax 250 mg tablet RxNorm: 089215 Tablet(s) PO 07/14/2012 11/10/2013 Inactive disp one z ankit fluticasone 50 mcg/a ctuation Nasal [place], Susp RxNorm: 9181375 1 [place] NASAL BID 06/27/2012 10/07/2012 In active Anusol-HC 25 mg Supp ository RxNorm: 7800605 1 Suppository RTL QD AY PRN 06/09/2012 12/22/2018 In active daily x 3 days then prnno longer than 10 days in row use Claritin-D 12 Hour 5 mg-120 mg tablet,extended release RxNorm: 7656620 1 Tablet(s) PO BID 05/22/2012 05/22/2012 Inactive TAKE 1 TABLET BY MOUTH TWICE DAILY Claritin-D 12 Hour 5 mg-120 mg tablet,extended release RxNorm: 3971910 Tablet(s) PO 05/12/2012 05/21/2012 In active TAKE 1 TABLET BY MOUTH TWICE DAILY fluticasone 50 mcg/a ctuation Nasal [place], Susp RxNorm: 4247803 1 [place] NASAL BID 05/06/2012 06/26/2012 In active Rocephin 500 mg Solu tion for Injection RxNorm: 1670999 Inj 01/1802/12/2012 Inactive metronidazole 500 mg Tab RxNorm: 507814 1 Tablet(s) PO TID 02/12/2012 02/18/2012 Inactive Kenalog 40 mg/mL Elizabeth p for Injection RxNorm: 1187514 Milliliter(s) Inj 02/12/2012 02/12/2012 In active fluticasone 50 mcg/a ctuation Nasal [place], Susp RxNorm: 0763175 1 [place] NASAL BID 02/12/2012 05/05/2012 In active cefdinir 300 mg Cap RxNorm: 924119 1 Capsule(s) PO BID 02/12/2012 02/21/2012 Inactive Effexor XR 150 mg ca psule,extended release RxNorm: 529778 1 Capsule(s) PO daily 12/17/2011 12/10/2012 In active metformin ER 500 mg tablet,extended release 24 hr RxNorm: 971358 2 Tablet(s) PO BID 12/17/2011 05/14/2012 In active pilocarpine 5 mg tablet RxNorm: 9752019 4 Tablet(s) PO daily 12/17/2011 03/15/2012 Inactive Singulair 10 mg Tab RxNorm: 513326 1 Tablet(s) PO daily 11/27/2011 08/19/2012 Inactive Nexium 40 mg capsule ,delayed release RxNorm: 825889 1 Capsule(s) PO daily 11/26/2011 03/24/2012 In active Claritin-D 12 Hour 5 mg-120 mg tablet,extended release RxNorm: 4499102 1 Tablet(s) PO BID 11/14/2011 05/11/2012 Inactive Claritin-D 12 Hour 5 mg-120 mg Tab RxNorm: 8993606 1 Tablet(s) PO BID 10/31/2011 11/13/2011 In active Claritin-D 12 Hour 5 mg-120 mg Tab RxNorm: 6260542 1 Tablet(s) PO BID 10/29/2011 2011 In active Claritin-D 12 Hour 5 mg-120 mg Tab RxNorm: 1407719 1 Tablet(s) PO BID 10/29/2011 10/30/2011 In active Claritin-D 24 Hour 1 0 mg-240 mg Tab RxNorm: 7757189 1 Tablet(s) PO daily 10/23/2011 2011 In active levofloxacin 500 mg Tab RxNorm: 210983 1 Tablet(s) PO daily 08/28/2011 09/03/2011 Inactive Nasonex 50 mcg/actua tion [place] RxNorm: 429706 1 [place] NASAL BID 08/28/2011 11/25/2011 Inactive promethazine 25 mg/m L Injection RxNorm: 966988 1 Milliliter(s) Inj 08/23/2011 07/14/2013 Inactive glyburide 2.5 mg tablet RxNorm: 952066 1 Tablet(s) PO daily 08/23/2011 04/08/2013 Inactive Rocephin 500 mg Solu tion for Injection RxNorm: 9488186 1 Milliliter(s) Inj 08/23/2011 08/28/2011 In active Klor-Con 10 10 mEq t ablet,extended release RxNorm: 435822 1 Tablet(s) PO daily 08/06/2011 07/30/2012 In active Nexium 40 mg Capsule , delayed release RxNorm: 815869 1 Capsule(s) PO daily 08/06/2011 11/25/2011 In active furosemide 40 mg tablet RxNorm: 617170 1 Tablet(s) PO daily 08/06/2011 07/30/2012 Inactive Cymbalta 30 mg Cap RxNorm: 727225 1 Capsule(s) PO daily 07/26/2011 08/28/2011 Inactive Synthroid 50 mcg tablet RxNorm: 903416 Tablet(s) PO 06/21/2011 08/17/2012 Inactive TAKE 1 TABLET DAILY Neurontin 100 mg Cap RxNorm: 459443 2 Capsule(s) PO TID 06/19/2011 08/28/2011 Inactive ciprofloxacin 500 mg Tab RxNorm: 507090 1 Tablet(s) PO BID 06/19/2011 08/28/2011 Inactive Neurontin 100 mg Cap RxNorm: 627573 1 Capsule(s) PO QID 06/05/2011 06/18/2011 Inactive oxazepam 10 mg Cap RxNorm: 484528 1 Capsule(s) PO Q6 PRN 06/05/2011 10/02/2011 Inactive Influenza Virus Vacc ine 0.5 mL RxNorm: IM 06/05/2011 06/05/2011 Inactive hydrocodone-acetamin ophen 5 mg-500 mg Tab RxNorm: 470467 1 Tablet(s) PO Q6 PRN No Start Date Active Fish Oil 1,000 mg Cap RxNorm: 2 Capsule(s) PO BID No Start Date Active Zenpep 40,000-136,00 0-218,000 unit capsule,delayed release RxNorm: 2119430 1 Capsule(s) PO QID No Start Date Active Multiple Vitamins ch ewable tablet RxNorm: 1 Tablet(s) PO daily No Start Date Active mesalamine 4 gram/60 mL enema RxNorm: 902577 1 Milliliter(s) RTL d aily No Start Date Active aspirin 81 mg Cap, D elayed Release RxNorm: 765653 1 Capsule(s) PO daily No Start Date Active Vitamin B-12 1,000 m cg Tab RxNorm: 298309 2 Tablet(s) PO daily No Start Date Active Vitamin C With Darlyn Hips 1,000 mg Tab RxNorm: 253111 1 Tablet(s) PO daily No Start Date Active Lipitor 10 mg Tab RxNorm: 939010 1 Tablet(s) PO HS No Start Date 04/10/2011 Inactive EnteraGam 5 gram ora l powder packet RxNorm: 1 PO daily No S tart Date 12/22/2018 Inactive Lipitor 20 mg Tab RxNorm: 791901 1 Tablet(s) PO HS No Start Date 08/28/2011 Inactive Zithromax 250 mg tablet RxNorm: 930433 Tablet(s) PO No Start Date 07/13/2012 Inactive disp one z ankit Effexor XR 150 mg 24 hr Cap RxNorm: 322070 1 Capsule(s) PO daily No Start Date 12/16/2011 Inactive Bydureon 2 mg/0.65 m L subcutaneous pen injector RxNorm: 4426765 Milliliter(s) SQ QW No Start Date 10/13/2015 Inactive Centrum Ultra Women' s 18 mg-400 mcg Tab RxNorm: 1 Tablet(s) PO daily No Start Date 12/22/2018 Inactive furosemide 40 mg Tab RxNorm: 645731 1 Tablet(s) PO daily No Start Date 08/05/2011 Inactive Synthroid 25 mcg tablet RxNorm: 302508 1 Tablet(s) PO daily No Start Date 12/01/2013 Inactive Januvia 50 mg tablet RxNorm: 346352 1 Tablet(s) PO daily samples No Start Date 04/27/2013 Inactive Lipitor 10 mg tablet RxNorm: 235560 1 Tablet(s) PO daily No Start Date 03/16/2013 Inactive Crestor 10 mg tablet RxNorm: 715752 1 Tablet(s) PO QHS No Start Date 03/25/2016 Inactive Asacol HD 800 mg Tab RxNorm: 988074 2 Tablet(s) PO daily No Start Date 10/13/2015 Inactive pilocarpine 5 mg Tab RxNorm: 5945836 4 Tablet(s) PO daily No Start Date 12/16/2011 Inactive glyburide 2.5 mg Tab RxNorm: 749879 1 Tablet(s) PO BID No Start Date 08/22/2011 Inactive Claritin-D 24 Hour 1 0 mg-240 mg Tab RxNorm: 2849744 1 Tablet(s) PO daily No Start Date 10/22/2011 Inactive Vitamin D 1,000 unit Tab RxNorm: 841223 1 Tablet(s) PO daily No Start Date 10/13/2015 Inactive Tricor 145 mg Tab RxNorm: 101305 1 Tablet(s) PO daily No Start Date 10/14/2015 Inactive Zithromax Z-Ankit 250 mg tablet RxNorm: 064732 1 Tablet(s) PO UD No Start Date 11/06/2016 Inactive Synthroid 25 mcg tablet RxNorm: 923486 1 Tablet(s) PO daily No Start Date 05/01/2017 Inactive Claritin-D 12 Hour 5 mg-120 mg tablet,extended release RxNorm: 3066037 1 Tablet(s) PO BID No Start Date 12/23/2013 Inactive Singulair 10 mg Tab RxNorm: 112044 1 Tablet(s) PO daily No Start Date 11/26/2011 Inactive Linzess 290 mcg capsule RxNorm: 5042022 1 Capsule(s) PO daily No Start Date 12/22/2018 Inactive Calcium 600 + D(3) 6 00 mg (1,500)-200 unit Tab RxNorm: 745381 1 Tablet(s) PO daily No Start Date 10/13/2015 Inactive Lialda 1.2 gram tabl et,delayed release RxNorm: 399202 2 Tablet(s) PO daily No Start Date 09/17/2016 Inactive Effexor XR 150 mg 24 hr Cap RxNorm: 108599 1 Capsule(s) PO daily No Start Date 08/28/2011 Inactive aspirin 325 mg Tab RxNorm: 467316 1 Tablet(s) PO daily No Start Date 08/28/2011 Inactive Toprol XL 25 mg tabl et,extended release RxNorm: 677508 1 Tablet(s) PO daily No Start Date 06/11/2013 Inactive lisinopril 10 mg tablet RxNorm: 756779 1 Tablet(s) PO daily No Start Date 01/25/2013 Inactive Cymbalta 60 mg Cap RxNorm: 571630 1 Capsule(s) PO daily No Start Date 08/28/2011 Inactive Nexium 40 mg Cap RxNorm: 554060 1 Capsule(s) PO daily No Start Date 08/05/2011 Inactive dicyclomine 10 mg Cap RxNorm: 839845 1 Capsule(s) PO daily No Start Date 07/13/2013 Inactive Synthroid 50 mcg Tab RxNorm: 696277 1 Tablet(s) PO daily No Start Date 06/20/2011 Inactive metformin ER 500 mg 24 hr Tab RxNorm: 705234 2 Tablet(s) PO BID No Start Date 12/16/2011 Inactive Anusol-HC 25 mg Supp ository RxNorm: 9154065 1 Suppository RTL No Start Date 06/08/2012 Inactive daily x 3 days then prnno longer than 10 days in row use Medication Administered Medication Codes Instruc tions Start Date Status Kenalog 40 mg/mL suspension for injection RxNorm: 9023351 Milliliter 12/23/2018 No longer Active Kenalog 40 mg/mL suspension for injection RxNorm: 5808338 1Milliliter 05/26/2018 N o longer Active Influenza Virus Vaccine 0.5 mL RxNorm: 04/27/2013 No longer Active Rocephin 500 mg Solution for Injection RxNorm: 0707702 02/12/2012 No longer A ctive Kenalog 40 mg/mL Susp for Injection RxNorm: 8067198 Milliliter 02/12/2012 No longer Active Influenza Virus [...] Code Item Item Code Result Date %Hba1C Jnp636 % HbA1c 93012-2 6.6 % 04/01/2018 %Hba1C Lld717 Gluc Ave 143 mg/dL 04/01/2018 Lipid Ord30 CHOL 178 mg/dL 04/01/2018 Lipid Ord30 HDL 50.0 mg/dl 04/01/2018 Lipid Ord30 TRIG 221 mg/dL 04/01/2018 Lipid Ord30 LDL 84 mg/dL 04/01/2018 Lipid Ord30 C/HDL 3.6 Ratio 04/01/2018 %Hba1C Rnz641 % HbA1c 65807-7 6.7 % 11/25/2017 %Hba1C Axt769 Gluc Ave 146 mg/dL 11/25/2017 Comp Metabolic Kqz789 NA 144 mEq/L 04/30/2017 Comp Metabolic Zdi787 K 4.3 mEq/L 04/30/2017 Comp Metabolic Mvn855 CL 105 mEq/L 04/30/2017 Comp Metabolic Ale534 CO2 29.0 mEq/L 04/30/2017 Comp Metabolic Paq770 AN ION GAP 14 04/30/2017 Comp Metabolic Jpd158 GL UCOSE 109 mg/dL 04/30/2017 Comp Metabolic Smw656 Cr eat 1.0 mg/dL 04/30/2017 Comp Metabolic Blz210 eG FR 58 ml/min/1.73m2 04/30 Comp Metabolic Use311 BUN 17 mg/dL 04/30/2017 Comp Metabolic Vkq191 B/ C Ratio 17.3 Ratio 04/30/2017 Comp Metabolic Myn344 CA LCIUM 10.1 mg/dL 04/30/2017 Comp Metabolic Csw340 AL K PHOS 47 U/L 04/30/2017 Comp Metabolic Tgn966 T(SGOT) 16 U/L 04/30/2017 Comp Metabolic Zty421 AL T(SGPT) 16 U/L 04/30/2017 Comp Metabolic Kto297 BI LI T 0.4 mg/dL 04/30/2017 Comp Metabolic Zug080 AL BUMIN 4.5 g/dL 04/30/2017 Comp Metabolic Npq061 TP RO 6.7 g/dL 04/30/2017 Comp Metabolic Wfb354 GL OB 2.2 g/dL 04/30/2017 Comp Metabolic Uvg349 A/ G Ratio 2.0 Ratio 04/30/2017 Comp Metabolic Ezd378 Os mo 289 mOsmo 04/30/2017 Cbc With [...] 28.2 pg 04/30/2017 Cbc With Differential Ord2 [place]% 6.5 % 04/30/2017 Cbc With Differential Ord2 [...] 1.12 K/ul 04/30/2017 Cbc With Differential Ord2 [place] ABS# 0.2 K/ul 04/30/2017 Cbc With Differential Ord2 Eos ABS# 0.1 K/ul 04/30/2017 Cbc With Differential Ord2 Baso ABS# 0.0 K/ul 04/30/2017 %Hba1C Xdj719 % HbA1c 13047-4 6.7 % 04/30/2017 %Hba1C Hdt512 Gluc Ave 146 mg/dL 04/30/2017 Tsh Ord6 hTSH II 1.36 uIU/mL 04/30/2017 Lipid Ord30 CHOL 160 mg/dL 04/30/2017 Lipid Ord30 HDL 51.0 mg/dl 04/30/2017 Lipid Ord30 TRIG 195 mg/dL 04/30/2017 Lipid Ord30 LDL 70 mg/dL 04/30/2017 Lipid Ord30 C/HDL 3.1 Ratio 04/30/2017 Free T4 Ynf937 FREE T4 0.75 ng/dL 04/30/2017 Ferritin Ord22 FERRITIN 89.9 ng/mL 11/09/2016 Parathyroid Hormone Xpl843 PTH 36.20 pg/ml 11/09/2016 Tibc Ord40 Iron 75 ug/dl 11/08/2016 Tibc Ord40 UIBC 325 ug/dL 11/08/2016 Tibc Ord40 TIBC 400 ug/dL 11/08/2016 Tibc Ord40 Fe-%Sat 18.8 % 11/08/2016 Comp Metabolic Wje113 NA 139 mEq/L 09/25/2016 Comp Metabolic Kdd652 K 4.3 mEq/L 09/25/2016 Comp Metabolic Ppu544 CL 101 mEq/L 09/25/2016 Comp Metabolic Xqb317 CO2 31.0 mEq/L 09/25/2016 Comp Metabolic Ayy818 AN ION GAP 11 09/25/2016 Comp Metabolic Jya197 GL UCOSE 116 mg/dL 09/25/2016 Comp Metabolic Gba185 Cr eat 1.1 mg/dL 09/25/2016 Comp Metabolic Whv164 eG FR 53 ml/min/1.73m2 09/25 Comp Metabolic Usp280 BUN 22 mg/dL 09/25/2016 Comp Metabolic Bbt838 B/ C Ratio 20.8 Ratio 09/25/2016 Comp Metabolic Toc359 CA LCIUM 10.3 mg/dL 09/25/2016 Comp Metabolic Qpv292 AL K PHOS 52 U/L 09/25/2016 Comp Metabolic Kak480 T(SGOT) 16 U/L 09/25/2016 Comp Metabolic Wfb852 AL T(SGPT) 17 U/L 09/25/2016 Comp Metabolic Wup197 BI LI T 0.3 mg/dL 09/25/2016 Comp Metabolic Nof513 AL BUMIN 4.7 g/dL 09/25/2016 Comp Metabolic Awj654 TP RO 6.9 g/dL 09/25/2016 Comp Metabolic Raw830 GL OB 2.2 g/dL 09/25/2016 Comp Metabolic Mde748 A/ G Ratio 2.1 Ratio 09/25/2016 Comp Metabolic Ekl105 Os mo 282 mOsmo 09/25/2016 Lipid Ord30 CHOL 182 mg/dL 09/25/2016 Lipid Ord30 HDL 55.0 mg/dl 09/25/2016 Lipid Ord30 TRIG 168 mg/dL 09/25/2016 Lipid Ord30 LDL 93 mg/dL 09/25/2016 Lipid Ord30 C/HDL 3.3 Ratio 09/25/2016 %Hba1C Wlu853 % HbA1c 02775-2 7.0 % 09/25/2016 %Hba1C Kzg544 Gluc Ave 154 mg/dL 09/25/2016 Free T4 Rtg009 FREE T4 0.80 ng/dL 09/25/2016 Cbc With [...] 28.3 pg 09/25/2016 Cbc With Differential Ord2 [place]% 8.2 % 09/25/2016 Cbc With Differential Ord2 [...] 1.29 K/ul 09/25/2016 Cbc With Differential Ord2 [place] ABS# 0.3 K/ul 09/25/2016 Cbc With Differential Ord2 Eos ABS# 0.0 K/ul 09/25/2016 Cbc With Differential Ord2 Baso ABS# 0.0 K/ul 09/25/2016 Tsh Ord6 hTSH II 1.01 uIU/mL 09/25/2016 Tsh Ord6 hTSH II 1.35 uIU/mL 06/04/2016 Comp Metabolic Qfq675 NA 135 mEq/L 06/04/2016 Comp Metabolic Sod828 K 3.8 mEq/L 06/04/2016 Comp Metabolic Aem872 CL 99 mEq/L 06/04/2016 Comp Metabolic Wbq859 CO2 30.0 mEq/L 06/04/2016 Comp Metabolic Cwt682 AN ION GAP 10 06/04/2016 Comp Metabolic Ifo706 GL UCOSE 171 mg/dL 06/04/2016 Comp Metabolic Kuu209 Cr eat 1.0 mg/dL 06/04/2016 Comp Metabolic Gdz521 eG FR 59 ml/min/1.73m2 06/04 Comp Metabolic Ehm667 BUN 22 mg/dL 06/04/2016 Comp Metabolic Mnv373 B/ C Ratio 22.4 Ratio 06/04/2016 Comp Metabolic Hcu661 CA LCIUM 10.4 mg/dL 06/04/2016 Comp Metabolic Cip638 AL K PHOS 68 U/L 06/04/2016 Comp Metabolic Ndi644 T(SGOT) 22 U/L 06/04/2016 Comp Metabolic Gxl772 AL T(SGPT) 25 U/L 06/04/2016 Comp Metabolic Zuw006 BI LI T 0.4 mg/dL 06/04/2016 Comp Metabolic Kxi981 AL BUMIN 4.5 g/dL 06/04/2016 Comp Metabolic Qbu720 TP RO 7.0 g/dL 06/04/2016 Comp Metabolic Wyy672 GL OB 2.5 g/dL 06/04/2016 Comp Metabolic Kwp525 A/ G Ratio 1.8 Ratio 06/04/2016 Comp Metabolic Qzl943 Os mo 277 mOsmo 06/04/2016 Cbc With [...] 29.1 pg 06/04/2016 Cbc With Differential Ord2 [place]% 7.9 % 06/04/2016 Cbc With Differential Ord2 [...] 1.58 K/ul 06/04/2016 Cbc With Differential Ord2 [place] ABS# 0.5 K/ul 06/04/2016 Cbc With Differential Ord2 Eos ABS# 0.1 K/ul 06/04/2016 Cbc With Differential Ord2 Baso ABS# 0.1 K/ul 06/04/2016 %Hba1C Rdh953 % HbA1c 62377-7 8.7 % 06/04/2016 %Hba1C Qtd734 Gluc Ave 203 mg/dL 06/04/2016 Free T4 Tcw107 FREE T4 0.84 ng/dL 06/04/2016 Lipid Ord30 CHOL 111 mg/dL 06/04/2016 Lipid Ord30 HDL 51.0 mg/dl 06/04/2016 Lipid Ord30 TRIG 185 mg/dL 06/04/2016 Lipid Ord30 LDL 23 mg/dL 06/04/2016 Lipid Ord30 C/HDL 2.2 Ratio 06/04/2016 Microalbumin Gaa145 Micr oAlb <0.7 mg/dL 06/04/2016 Comp Metabolic Pvs215 NA 142 mEq/L 03/12/2016 Comp Metabolic Qou261 K 4.1 mEq/L 03/12/2016 Comp Metabolic Mee644 CL 103 mEq/L 03/12/2016 Comp Metabolic Yco043 CO2 30.0 mEq/L 03/12/2016 Comp Metabolic Lvr564 AN ION GAP 13 03/12/2016 Comp Metabolic Kgr157 GL UCOSE 138 mg/dL 03/12/2016 Comp Metabolic Tmw005 Cr eat 0.8 mg/dL 03/12/2016 Comp Metabolic Zmw985 eG FR 75 ml/min/1.73m2 03/12 Comp Metabolic Qnf329 BUN 18 mg/dL 03/12/2016 Comp Metabolic Ata485 B/ C Ratio 22.8 Ratio 03/12/2016 Comp Metabolic Qcv302 CA LCIUM 9.8 mg/dL 03/12/2016 Comp Metabolic Wju898 AL K PHOS 83 U/L 03/12/2016 Comp Metabolic Isf578 T(SGOT) 15 U/L 03/12/2016 Comp Metabolic Gmx350 AL T(SGPT) 20 U/L 03/12/2016 Comp Metabolic Mao757 BI LI T 0.4 mg/dL 03/12/2016 Comp Metabolic Kte525 AL BUMIN 4.2 g/dL 03/12/2016 Comp Metabolic Nmv957 TP RO 6.4 g/dL 03/12/2016 Comp Metabolic Ivs346 GL OB 2.2 g/dL 03/12/2016 Comp Metabolic Xab061 A/ G Ratio 1.9 Ratio 03/12/2016 Comp Metabolic Qhs775 Os mo 287 mOsmo 03/12/2016 %Hba1C Ocv534 % HbA1c 68463-2 7.2 % 03/12/2016 %Hba1C Fbb301 Gluc Ave 160 mg/dL 03/12/2016 Comp Metabolic Aos627 NA 138 mEq/L 10/18/2015 Comp Metabolic Tsl087 K 4.1 mEq/L 10/18/2015 Comp Metabolic Trn769 CL 97 mEq/L 10/18/2015 Comp Metabolic Npo907 CO2 32.0 mEq/L 10/18/2015 Comp Metabolic Mqb412 AN ION GAP 13 10/18/2015 Comp Metabolic Jek708 GL UCOSE 145 mg/dL 10/18/2015 Comp Metabolic Ape877 Cr eat 1.1 mg/dL 10/18/2015 Comp Metabolic Xkj386 eG FR 50 ml/min/1.73m2 10/17 Comp Metabolic Adq039 BUN 23 mg/dL 10/18/2015 Comp Metabolic Fxo893 B/ C Ratio 20.4 Ratio 10/18/2015 Comp Metabolic Nrz887 CA LCIUM 10.3 mg/dL 10/18/2015 Comp Metabolic Fxs779 AL K PHOS 59 U/L 10/18/2015 Comp Metabolic Rig075 T(SGOT) 17 U/L 10/18/2015 Comp Metabolic Ncq356 AL T(SGPT) 21 U/L 10/18/2015 Comp Metabolic Ycn590 BI LI T 0.4 mg/dL 10/18/2015 Comp Metabolic Foj286 AL BUMIN 4.6 g/dL 10/18/2015 Comp Metabolic Ltu728 TP RO 7.1 g/dL 10/18/2015 Comp Metabolic Sxx206 GL OB 2.5 g/dL 10/18/2015 Comp Metabolic Tkt575 A/ G Ratio 1.9 Ratio 10/18/2015 Comp Metabolic Yir838 Os mo 282 mOsmo 10/18/2015 Tsh Ord6 hTSH II 1.81 uIU/mL 10/18/2015 %Hba1C Oop786 % HbA1c 15106-4 7.3 % 10/18/2015 %Hba1C Xqq169 Gluc Ave 163 mg/dL 10/18/2015 Iron Ord72 Iron 90 ug/dl 10/18/2015 Free T4 Jqs207 FREE T4 0.75 ng/dL 10/18/2015 Cbc With [...] 29.0 pg 10/18/2015 Cbc With Differential Ord2 [place]% 6.8 % 10/18/2015 Cbc With Differential Ord2 [...] 1.93 K/ul 10/18/2015 Cbc With Differential Ord2 [place] ABS# 0.5 K/ul 10/18/2015 Cbc With Differential [...] Lipid Ord30 C/HDL 2.3 Ratio 10/18/2015 TSH 0324897 TSH 1.042 uIU/ML 12/24/2012 A1C HPLC 0470444 A1C HPLC 75587-1 7.6 % 12/24/2012 ESR 7095643 ESR 2 MM/HR 12/23/2012 CHEM 14 1309278 AST 20 U/L 12/23/2012 CHEM 14 3758432 ALT 24 IU/L 12/23/2012 CHEM 14 6777951 BUN 16 MG/DL 12/23/2012 CHEM 14 1083320 ALBUMIN 4.7 GM/DL 12/23/2012 CHEM 14 8410821 CHLORIDE 102 MMOL/L 12/23/2012 CHEM 14 2349127 BILI TOT 0.3 MG/DL 12/23/2012 CHEM 14 4512739 ALK PHOS 109 U/L 12/23/2012 CHEM 14 6906685 SODIUM 142 MMOL/L 12/23/2012 CHEM 14 5766683 CREATINI NE 0.93 MG/DL 12/23/2012 CHEM 14 6978183 CALCIUM 10.0 MG/DL 12/23/2012 CHEM 14 5539645 POTASSIUM 3.7 MMOL/L 12/23/2012 CHEM 14 3667527 PROT TOT 7.2 GM/DL 12/23/2012 CHEM 14 0261857 GLUCOSE 116 MG/DL 12/23/2012 CHEM 14 1181149 BICARB 32 MMOL/L 12/23/2012 CHEM 14 4457289 ANION GAP 8 MEQ/L 12/23/2012 GFR CALC 2051705 GFR AA >60 ML/MIN 12/23/2012 GFR CALC 9685326 GFR NON -AA 59.0L ML/MIN 3 CBC 7196915 WBC 5.5 10e9/L 12/23/2012 CBC 4462460 RBC 4.90 10e12/L 12/23/2012 CBC 2329017 HGB 14.1 g/dL 12/23/2012 CBC 8056810 HCT DET 42.4 % 12/23/2012 CBC 2464328 MCV 86.5 fL 12/23/2012 CBC 9259963 MCH 28.8 pg 12/23/2012 CBC 0924369 MCHC 33.3 g/dL 12/23/2012 CBC 9854894 PLT 320 10e9/L 12/23/2012 CBC 0236447 MPV 9.9 fL 12/23/2012 CBC 7206533 BRANDIE % 63.7 % 12/23/2012 CBC 2171513 LY % 24.6 % 12/23/2012 CBC 6396964 MON % 6.3 % 12/23/2012 CBC 3224723 EOS % 4.7 % 12/23/2012 CBC 4586116 BASO % 0.7 % 12/23/2012 CBC 0394909 RDW 15.0 % 12/23/2012 CBC 3381333 ABS BRANDIE 3.50 10e9/L 12/23/2012 CBC 6115930 ABS LYMPH 1.35 10e9/L 12/23/2012 CBC 7510191 ABS MONO 0.35 10e9/L 12/23/2012 CBC 8074352 ABS EOS 0.26 10e9/L 12/23/2012 CBC 2931051 ABS BASO 0.04 10e9/L 12/23/2012 CBC 1236797 RDW-SD 47.1 fL 12/23/2012 CRP 9417925 CRP 0.1 MG/DL 12/23/2012 URINALYSIS NONAUTO W/O SCOPE 33868 Specific [place] 1.005 DateTime(Free Text in Apr) URINALYSIS NONAUTO W/O SCOPE 71678 PH 7.5 DateTime(Free Mina t in Aprima) URINALYSIS NONAUTO W/O SCOPE 69478 GLUCOSE NEG DateTime(Free Mina t in Apr) URINALYSIS NONAUTO W/O SCOPE 22264 Protein NEG DateTime(Free Mina t in Apr) URINALYSIS NONAUTO W/O SCOPE 06878 Blood NEG DateTime(Free Mina t in ) URINALYSIS NONAUTO W/O SCOPE 31214 Bilirubin NEG DateTime(Free Mina t in ) URINALYSIS NONAUTO W/O SCOPE 26476 Ketones NEG DateTime(Free Mina t in Apr) URINALYSIS NONAUTO W/O SCOPE 87861 Urobilinogen NEG DateTime(Free Text in ) URINALYSIS NONAUTO W/O SCOPE 32620 Nitrite NEG DateTime(Free Mina t in Apr) URINALYSIS NONAUTO W/O SCOPE 34174 Leukocytes NEG DateTime(Free Text in ) Review [...] facial 11/25/2017 Neurologic No syncope Psychiatric anxiety 04/2018 Psychiatric depression 0 11/25/2017 Endocrine diabetes [...] 01/2016 Neurologic No dizziness 11/23/2015 Neurologic headache 0 01/2016 Neurologic No pain, facial 11/23/2015 Neurologic [...] clear 11/15/2016 None Full Exam - General 1995 Ears/Nose/Throat oral cavity/pharynx/larynx Overall: no masses 11/15/2016 [...] clear 11/10/2013 None Full Exam - General 1995 Ears/Nose/Throat [...] benign 05/20/2013 None Full Exam - General 1995 Musculoskeletal spine, ribs and pelvis Overall: spine benign 05/20/2013 None Full Exam - General 1995 [...] accomodation 04/09/2013 None Full Exam - General 1995 [...] affect 01/26/2013 None Full Exam - General 1994 Ears/Nose/Throat otoscopic exam External auditory canal: partial [...] distress 12/23/2012 None Full Exam - General 1995 Constitutional general appearance Overall: well nourished 12/23/2012 [...] accomodation 07/17/2012 None Full Exam - General 1995 [...] developed 10/08/2011 None Full Exam - General 1995 [...] Procedure Codes Date THER/PROPH/DIAG INJ SC/IM CPT-4: 98808 12/23/2018 TRIAMCINOLONE ACET I [place] NOS CPT-4: J3301 12/23/2018 THER/PROPH/DIAG INJ SC/IM CPT-4: 04153 05/26/2018 TRIAMCINOLONE ACET I [place] NOS CPT-4: J3301 05/26/2018 FLU VAC NO PRSV 4 VA L 3 YRS+ CPT-4: 19109 05/02/2017 ADMIN INFLUENZA VIRU S VAC CPT-4: G0008 05/02/2017 ADMIN PNEUMOCOCCAL V ACCINE SNOMED CT: 33267686 CPT-4: G0009 05/02/2017 PNEUMOCOCCAL VACC [address]: 11713968 CPT-4: 51363 05/02/2017 FLU VAC NO PRSV 4 VA L 3 YRS+ CPT-4: 81260 05/06/2014 ADMIN PNEUMOCOCCAL V ACCINE SNOMED CT: 31214346 CPT-4: G0009 05/06/2014 PRESCRIP TRANSMIT A ERX SY CPT-4: G8553 06/12/2013 PRESCRIP TRANSMIT A ERX SY CPT-4: G8553 05/20/2013 ADMIN INFLUENZA VIRU S VAC CPT-4: G0008 04/27/2013 FLULAVAL VACC, 3 YRS & >, IM CPT-4: Q2036 04/27/2013 PRESCRIP TRANSMIT A ERX SY CPT-4: G8553 04/09/2013 PRESCRIP TRANSMIT A ERX SY CPT-4: G8553 01/26/2013 ROUTINE VENIPUNCTURE CPT-4: 91278 12/23/2012 PRESCRIP TRANSMIT A ERX SY CPT-4: G8553 06/09/2012 ROCEPHIN, PER 250 MG CPT-4: J0696 02/12/2012 TRIAMCINOLONE ACET I [place] NOS CPT-4: J3301 02/12/2012 PRESCRIP TRANSMIT A ERX SY CPT-4: G8553 02/12/2012 ROCEPHIN, PER 250 MG CPT-4: J0696 02/05/2012 URINALYSIS NONAUTO W /O SCOPE CPT-4: 19143 11/14/2011 REMOVE IMPACTED EAR WAX UNI CPT-4: 39817 08/28/2011 PRESCRIP TRANSMIT A ERX SY CPT-4: G8553 08/28/2011 ROCEPHIN, PER 250 MG CPT-4: J0696 08/23/2011 TRIAMCINOLONE ACET I [place] NOS CPT-4: J3301 08/23/2011 THER/PROPH/DIAG INJ SC/IM CPT-4: 90721 08/23/2011 PRESCRIP TRANSMIT A ERX SY CPT-4: G8553 08/23/2011 OCCULT BLOOD FECES CPT- 4: 61013 06/19/2011 URINALYSIS NONAUTO W /O SCOPE CPT-4: 72102 06/19/2011 PRESCRIP TRANSMIT A ERX SY CPT-4: G8553 06/19/2011 ADMIN INFLUENZA VIRU S VAC CPT-4: G0008 06/05/2011 FLULAVAL VACC, 3 YRS & >, IM CPT-4: Q2036 06/05/2011 Vital Signs Date Vital 12/23/2018 Blood Pressure 1: 150/82 Code: 8480-6 Heart Rate 1: 89 bpm Height: SpO2: 95% Weight: 06/12/2018 Blood Pressure 1: 142/68 Code: 8480-6 BMI: 30.0 Code: 99917-1 Heart Rate 1: 91 bpm Height: 5'3" SpO2: 96% Weight: 172 lbs 05/26/2018 Blood Pressure 1: 142/72 Code: 8480-6 BMI: 30.0 Code: 47204-2 Heart Rate 1: 92 bpm Height: 5'3" SpO2: 96% Weight: 172 lbs 04/01/2018 Blood Pressure 1: 120/58 Code: 8480-6 BMI: 29.1 Code: 02844-3 Heart Rate 1: 83 bpm Height: 5'3" Respiratory Rate: 18 bpm SpO2: 95% Weight: 167 lbs 11/25/2017 Blood Pressure 1: 128/58 Code: 8480-6 BMI: 29.8 Code: 09137-9 Heart Rate 1: 83 bpm Height: 5'3" SpO2: 99% Weight: 171 lbs 09/18/2017 Blood Pressure 1: 140/72 Code: 8480-6 BMI: 30.3 Code: 68256-5 Heart Rate 1: 99 bpm Height: 5'3" SpO2: 97% Weight: 174 lbs 05/02/2017 Blood Pressure 1: 122/64 Code: 8480-6 BMI: 29.5 Code: 36426-2 Heart Rate 1: 81 bpm Height: 5'3" SpO2: 97% Weight: 169 lbs 03/29/2017 Blood Pressure 1: 134/68 Code: 8480-6 BMI: 30.0 Code: 92316-4 Heart Rate 1: 89 bpm Height: 5'3" SpO2: 98% Weight: 172 lbs 11/15/2016 Blood Pressure 1: 148/72 Code: 8480-6 BMI: 29.5 Code: 33465-8 Heart Rate 1: 102 bpm Height: 5'3" SpO2: 98% Weight: 169 lbs 11/06/2016 Blood Pressure 1: 140/78 Code: 8480-6 BMI: 29.8 Code: 47453-1 Heart Rate 1: 100 bpm Height: 5'3" SpO2: 97% Weight: 171 lbs 08/01/2016 Blood Pressure 1: 128/56 Code: 8480-6 BMI: 30.3 Code: 50149-5 Heart Rate 1: 88 bpm Height: 5'3" SpO2: 97% Weight: 174 lbs 07/02/2016 Blood Pressure 1: 126/62 Code: 8480-6 BMI: 31.0 Code: 03721-9 Heart Rate 1: 101 bpm Height: 5'3" SpO2: 97% Weight: 178 lbs 06/04/2016 Blood Pressure 1: 136/72 Code: 8480-6 BMI: 31.4 Code: 56819-7 Heart Rate 1: 103 bpm Height: 5'3" SpO2: 98% Weight: 180 lbs 03/26/2016 Blood Pressure 1: 134/74 Code: 8480-6 BMI: 30.7 Code: 61158-1 Heart Rate 1: 93 bpm Height: 5'3" SpO2: 98% Weight: 176 lbs 11/23/2015 Blood Pressure 1: 128/77 Code: 8480-6 BMI: 30.2 Code: 19381-2 Heart Rate 1: 74 bpm Height: 5'3" SpO2: 96% Weight: 173 lbs 10/14/2015 Blood Pressure 1: 122/72 Code: 8480-6 BMI: 30.3 Code: 95748-1 Heart Rate 1: 76 bpm Height: 5'3" SpO2: 97% Weight: 174 lbs 03/31/2015 Blood Pressure 1: 140/68 Code: 8480-6 BMI: 30.0 Code: 40589-0 Heart Rate 1: 93 bpm Height: 5'3" SpO2: 94% Weight: 172 lbs 08/31/2014 Blood Pressure 1: 122/74 Code: 8480-6 BMI: 31.2 Code: 48650-5 Heart Rate 1: 76 bpm Height: 5'3" Weight: 179 lbs 08/10/2014 Blood Pressure 1: 138/62 Code: 8480-6 BMI: 31.0 Code: 32829-5 Heart Rate 1: 80 bpm Height: 5'3" Weight: 178 lbs 05/06/2014 BMI: 31.2 Code: 13949-1 Height: 5'3" Weight: 179 lbs 04/14/2014 Blood Pressure 1: 136/68 Code: 8480-6 BMI: 31.4 Code: 54696-6 Heart Rate 1: 74 bpm Height: 5'3" Weight: 180 lbs 11/10/2013 Blood Pressure 1: 102/50 Code: 8480-6 BMI: 30.7 Code: 04431-4 Heart Rate 1: 76 bpm Height: 5'3" Weight: 176 lbs 07/14/2013 Blood Pressure 1: 136/80 Code: 8480-6 BMI: 30.3 Code: 79090-8 Heart Rate 1: 70 bpm Height: 5'3" Weight: 174 lbs 06/12/2013 Blood Pressure 1: 142/82 Code: 8480-6 BMI: 30.9 Code: 42553-9 Heart Rate 1: 72 bpm Height: 5'3" Weight: 177 lbs 05/20/2013 Blood Pressure 1: 132/70 Code: 8480-6 BMI: 31.2 Code: 79838-6 Heart Rate 1: 88 bpm Height: 5'3" Weight: 179 lbs 04/09/2013 Blood Pressure 1: 136/70 Code: 8480-6 BMI: 31.0 Code: 49999-8 Heart Rate 1: 100 bpm Height: 5'3" Weight: 178 lbs 01/26/2013 Blood Pressure 1: 118/56 Code: 8480-6 BMI: 30.7 Code: 88522-1 Heart Rate 1: 87 bpm Height: 5'3" Weight: 176 lbs 12/23/2012 Blood Pressure 1: 136/76 Code: 8480-6 Heart Rate 1: 104 bpm Respiratory Rate: 20 bpm Weight: 178 lbs 12/15/2012 Blood Pressure 1: 150/82 Code: 8480-6 Heart Rate 1: 100 bpm Temperature: 36.7 (C) / 98.1 (F) Weight: 178 lbs 10/22/2012 Blood Pressure 1: 138/82 Code: 8480-6 BMI: 30.2 Code: 45470-7 Heart Rate 1: 100 bpm Height: 5'3" Weight: 173 lbs 08/21/2012 Blood Pressure 1: 136/70 Code: 8480-6 BMI: 30.6 Code: 79913-4 Heart Rate 1: 98 bpm Height: 5'3" Weight: 175 lbs 8 oz 07/17/2012 Blood Pressure 1: 152/68 Code: 8480-6 BMI: 29.9 Code: 47224-8 Heart Rate 1: 92 bpm Height: 5'3" [...] 1: 122/68 Code: 8480-6 BMI: 29.5 Code: 43684-6 Heart Rate 1: 96 bpm Height: 5'3" [...] 1: 130/72 Code: 8480-6 BMI: 30.4 Code: 49347-6 Heart Rate 1: 92 bpm Height: 5'3" Respiratory Rate: 16 bpm Weight: 174 lbs 8 oz 06/19/2011 Blood Pressure 1: 122/70 Code: 8480-6 BMI: 30.2 Code: 06250-5 Heart Rate 1: 104 bpm Height: 5'3" Weight: 173 lbs 06/05/2011 Blood Pressure 1: 100/50 Code: 8480-6 BMI: 29.6 Code: 57853-4 Heart Rate 1: 96 bpm Height: 5'3" [...] None diabetes mellitus Quality chronic 05/20/2013 started [place] recently. stating her blood sugar is dropping [...] recently started s eeking counseling from her acid etch operator. depression Pertinent Findings anxiety 08/21/2012 None depression [...] stre ss 07/17/2012 Pt states that her sherine d is the largest cause of her [...] recently started s eeking counseling from her acid etch operator. depression Pertinent Findings anxiety 07/17/2012 None depression [...] Encounters Encounter Performer Loca tion Codes Date ([id number]) 10675 EST. P ATIENT, LEVEL III Diagnosis: Pleurodynia[ICD10: R07.81] Diagnosis: Pain in thoracic spine[ICD10: M54.6] Amy Cheung MD, [facility] CPT-4: 76182 12/23/2018 ([id number]) 39972 EST. P ATIENT, LEVEL III Diagnosis: Gastro-esophageal reflux disease without esophagitis[ICD10: K21.9] Amy Cheung MD, [facility] CPT-4: 08487 06/12/2018 ([id number]) 50355 EST. P ATIENT, LEVEL III Diagnosis: Gastro-esophageal reflux disease without esophagitis[ICD10: K21.9] Diagnosis: Cough[ICD10: R05] Riya Cheung MD, [facility] CPT-4: 35915 05/26/2018 ([id number]) 14845 EST. 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 P ATIENT, LEVEL IV Diagnosis: Type 2 diabetes mellitus with hyperglycemia[ICD10: E11.65] Diagnosis: Essential (primary) hypertension[ICD10: I10] Amy Cheung MD, C CPT-4: 20896 11/25/2017 ([id number]) 21527 EST. P ATIENT, LEVEL IV Diagnosis: Type 2 diabetes mell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[ICD10: E11.9] Diagnosis: Mixed hyperlipidemia[ICD10: E78.2] Diagnosis: Candidal stomatitis[ICD10: B37.0] Amy Cheung MD, [facility] CPT-4: 73329 09/18/2017 ([id number]) 27065 EST. P ATIENT, LEVEL IV Diagnosis: Type 2 diabetes mell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[ICD10: E11.9] Diagnosis: Mixed hyperlipidemia[ICD10: E78.2] Diagnosis: Essential (primary) hypertension[ICD10: I10] Diagnosis: Encounter for immunization[ICD10: Z23] Amy Cheung MD, [facility] CPT-4: 11947 05/02/2017 ([id number]) 06596 EST. P ATIENT, LEVEL III Diagnosis: Candidal stomatitis[ICD10: B37.0] Riya Cheung MD, [facility] CPT- 4: 97563 03/29/2017 ([id number]) 52487 EST. P ATIENT, LEVEL IV Diagnosis: Essential (primary) hypertension[ICD10: I10] Diagnosis: Type 2 diabetes mell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[ICD10: E11.9] Amy Cheung MD, [facility] CPT-4: 82246 11/15/2016 [id number] EST. PATIENT, LEVEL III Diagnosis: Other malaise[ICD10: R53.81] Diagnosis: Other fatigue[ICD10: R53.83] Diagnosis: Type 2 diabetes mellitus with hyperglycemia[ICD10: E11.65] Diagnosis: Essential (primary) hypertension[ICD10: I10] Diagnosis: Weakness[ICD10: R53.1] Mariana Cheung MD, [facility] CPT-4: 33796 11/06/2016 ([id number]) 95047 EST. P ATIENT, LEVEL III Diagnosis: Type 2 diabetes mellitus with hyperglycemia[ICD10: E11.65] Amy Cheung MD, [facility] CPT-4: 33631 08/01/2016 ([id number]) 58254 EST. P ATIENT, LEVEL III Diagnosis: Type 2 diabetes mellitus with hyperglycemia[ICD10: E11.65] Diagnosis: Gastroparesis[ICD10: K31.84] Amy Cheung MD, [facility] CPT-4: 44606 07/02/2016 ([id number]) 30439 EST. P ATIENT, LEVEL IV Diagnosis: Type 2 diabetes mellitus with hyperglycemia[ICD10: E11.65] Diagnosis: Hypothyroidism, unspecified[ICD10: E03.9] Amy Cheung MD, C CPT-4: 53629 06/04/2016 ([id number]) 89162 EST. P ATIENT, LEVEL IV Diagnosis: Type 2 diabetes mellitus with hyperglycemia[ICD10: E11.65] Diagnosis: Mixed hyperlipidemia[ICD10: E78.2] Diagnosis: Essential (primary) hypertension[ICD10: I10] Amy Cheung MD, [facility] CPT-4: 67360 03/26/2016 ([id number]) 01161 EST. P ATIENT, LEVEL III Diagnosis: Essential (primary) hypertension[ICD10: I10] Diagnosis: Adjustment disorder with mixed anxiety and depressed mood[ICD10: F43.23] Amy Cheung MD, [facility] CPT-4: 32622 11/23/2015 ([id number]) 29603 EST. P ATIENT, LEVEL IV Diagnosis: Type 2 diabetes mellitus with hyperglycemia[ICD10: E11.65] Diagnosis: Panic disorder [episodic paroxysmal anxiety] without agoraphobia[ICD10: F41.0] Diagnosis: Adjustment disorder with mixed anxiety and depressed mood[ICD10: F43.23] Diagnosis: Essential (primary) hypertension[ICD10: I10] Amy Cheung MD, C CPT-4: 78044 10/14/2015 ([id number]) 49872 EST. P ATIENT, LEVEL IV Diagnosis: DIABETES TYPE II[ICD9: 250.00] Diagnosis: GENERALIZED ANXIETY DISEASE[ICD9: 300.02] Diagnosis: ESSENTIAL HYPERTENSION[ICD9: 401.9] Diagnosis: ESOPHAGEAL REFLUX[ICD9: 530.81] Amy Cheung MD, [facility] CPT-4: 75628 03/31/2015 ([id number]) 86158 EST. P ATIENT, LEVEL IV Diagnosis: DM W/O COMPLICATION TYPE II, UNCONTROLLED[ICD9: 250.02] Diagnosis: ESSENTIAL HYPERTENSION[ICD9: 401.9] Diagnosis: DEPRESSIVE DISORDER NEC[ICD9: 311] Diagnosis: GENERALIZED ANXIETY DISEASE[ICD9: 300.02] Amy Cheung MD, C CPT-4: 82783 08/31/2014 ([id number]) 30937 EST. P ATIENT, LEVEL IV Diagnosis: ESSENTIAL HYPERTENSION[ICD9: 401.9] Diagnosis: DIABETES TYPE II[ICD9: 250.00] Diagnosis: Constipation - functional[ICD9: 564.09] Diagnosis: Abdominal pain[ICD9: 789.00] Amy Cheung MD, [facility] CPT-4: 46753 08/10/2014 ([id number]) 57827 EST. P ATIENT, LEVEL III Diagnosis: Flu vaccine need[ICD9: V04.81] Diagnosis: Neck pain[ICD9: 723.1] Diagnosis: Chronic allergic rhinitis[ICD9: 477.9] Amy Cheung MD, [facility] CPT-4: 95116 05/06/2014 ([id number]) 35505 EST. P ATIENT, LEVEL IV Diagnosis: DM W/O COMPLICATION TYPE II, UNCONTROLLED[ICD9: 250.02] Diagnosis: GENERALIZED ANXIETY DISEASE[ICD9: 300.02] Diagnosis: ESSENTIAL HYPERTENSION[ICD9: 401.9] Diagnosis: Neck pain[ICD9: 723.1] Amy Cheung MD, [facility] CPT-4: 08115 04/14/2014 ([id number]) 76891 EST. P ATIENT, LEVEL IV Diagnosis: ESSENTIAL HYPERTENSION[SNOMED: 13060933] Diagnosis: DIABETES TYPE II[SNOMED: 885193434] Diagnosis: Iliotibial band syndrome[ICD9: 728.89] Diagnosis: DEPRESSIVE DISORDER NEC[ICD9: 311] Diagnosis: GENERALIZED ANXIETY DISEASE[ICD9: 300.02] Amy Cheung MD, [facility] CPT-4: 58596 11/10/2013 ([id number]) 00966 EST. P ATIENT, LEVEL III Diagnosis: DIABETES TYPE II[SNOMED: 798945767] Amy Cheung MD, [facility] CPT- 4: 30310 07/14/2013 ([id number]) 15171 EST. P ATIENT, LEVEL IV Diagnosis: ESSENTIAL HYPERTENSION[SNOMED: 06464380] Diagnosis: DM W/O COMPLICATION TYPE II, UNCONTROLLED[SNOMED: 29022981] Amy Cheung MD, [facility] CPT-4: 68174 06/12/2013 ([id number]) 56729 EST. P ATIENT, LEVEL III Diagnosis: DIABETES TYPE II[SNOMED: 880873429] Amy Cheung MD, [facility] CPT- 4: 83172 05/20/2013 ([id number]) 91332 EST. P ATIENT, LEVEL IV Diagnosis: ESSENTIAL HYPERTENSION[SNOMED: 82400062] Diagnosis: HYPERLIPIDEMIA[ICD9: 272.4] Diagnosis: Type II diabetes mellitus, uncontrolled[SNOMED: 11496265] Amy Cheung MD, [facility] CPT-4: 79306 04/09/2013 ([id number]) 03190 EST. P ATIENT, LEVEL III Diagnosis: ESSENTIAL HYPERTENSION[SNOMED: 62913160] Diagnosis: ENCNTR LONG-RX USE NEC[ICD9: V58.69] Diagnosis: IMPACTED CERUMEN[ICD9: 380.4] Amy Cheung MD, [facility] CPT-4: 43186 01/26/2013 ([id number]) 33067 EST. P ATIENT, LEVEL IV Diagnosis: DIABETES TYPE II[SNOMED: 878275823] Diagnosis: ESSENTIAL HYPERTENSION[SNOMED: 93639836] Diagnosis: Polymyalgia[ICD9: 725] Amy Cheung MD, [facility] CPT-4: 05854 12/23/2012 ([id number]) 74706 EST. P ATIENT, LEVEL III Diagnosis: ACUTE MAXILLARY SINUSITIS[ICD9: 461.0] Diagnosis: COUGH[ICD9: 786.2] Amy Cheung MD, [facility] CPT-4: 96314 12/15/2012 ([id number]) 41096 EST. P ATIENT, LEVEL III Diagnosis: ANAL OR RECTAL PAIN[ICD9: 569.42] Diagnosis: Bruising[ICD9: 924.9] Diagnosis: Hip pain[ICD9: 719.45] Amy Cheung MD, [facility] CPT-4: 75893 10/22/2012 ([id number]) 97095 EST. P ATIENT, LEVEL IV Diagnosis: ESSENTIAL HYPERTENSION[SNOMED: 51896611] Diagnosis: DIABETES TYPE II[SNOMED: 197222110] Amy Cheung MD, [facility] CPT- 4: 94720 08/21/2012 ([id number]) 53295 EST. P ATIENT, LEVEL IV Diagnosis: DIABETES TYPE II[SNOMED: 895021328] Diagnosis: DEPRESSIVE DISORDER NEC[ICD9: 311] Amy Cheung MD, [facility] CPT- 4: 68711 07/17/2012 ([id number]) 95678 EST. P ATIENT, LEVEL III Diagnosis: ESSENTIAL HYPERTENSION[SNOMED: 59247878] Diagnosis: DEPRESSIVE DISORDER NEC[ICD9: 311] Amy Cheung MD, [facility] CPT- 4: 36343 07/08/2012 87761 EST. PATIENT, LEVEL IV Diagnosis: ESSENTIAL HYPERTENSION[SNOMED: 91210535] Diagnosis: DIABETES TYPE II[SNOMED: 145305321] Amy Cheung MD, [facility] CPT- 4: 25801 06/09/2012 ([id number]) 73774 EST. P ATIENT, LEVEL III Diagnosis: Acute sinusitis[ICD9: 461.9] Diagnosis: FEVER NOS[ICD9: 780.60] Amy Cheung MD, [facility] CPT-4: 21222 02/12/2012 ([id number]) 48432 EST. P ATIENT, LEVEL III Diagnosis: Otalgia of both ears[ICD9: 388.70] Diagnosis: Hemorrhoids[ICD9: 455.6] Diagnosis: Rectal or anal pain[ICD9: 569.42] Amy Cheung MD, [facility] CPT-4: 63077 02/05/2012 ([id number]) 61189 EST. P ATIENT, LEVEL IV Diagnosis: Dysuria[ICD9: 788.1] Diagnosis: ACUTE MAXILLARY SINUSITIS[ICD9: 461.0] Diagnosis: Allergic rhinitis[ICD9: 477.9] Amy Cheung MD, [facility] CPT-4: 03273 11/14/2011 ([id number]) 64662 EST. P ATIENT, LEVEL IV Diagnosis: DIABETES TYPE II[SNOMED: 653711255] Diagnosis: Cough[ICD9: 786.2] Diagnosis: FEVER NOS[ICD9: 780.60] Amy Cheung MD, [facility] CPT-4: 53518 10/08/2011 18730 EST. PATIENT, LEVEL IV Diagnosis: OTHER CONSTIPATION[ICD9: 564.09] Diagnosis: IMPACTED CERUMEN[ICD9: 380.4] Diagnosis: Recurrent sinusitis[ICD9: 473.9] Amy Cheung MD, [facility] CPT-4: 72914 08/28/2011 93455 EST. PATIENT, LEVEL IV Diagnosis: Neck pain, acute[ICD9: 723.1] Diagnosis: Cough[ICD9: 786.2] Diagnosis: Cerumen impaction[ICD9: 380.4] Amy Cheung MD, [facility] CPT-4: 21436 08/23/2011 84467 EST. PATIENT, LEVEL IV Diagnosis: ESSENTIAL HYPERTENSION[SNOMED: 52311598] Diagnosis: HYPERLIPIDEMIA[ICD9: 272.4] Diagnosis: DIABETES TYPE II[SNOMED: 393370046] Diagnosis: DEPRESSIVE DISORDER NEC[ICD9: 311] Diagnosis: 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[ICD9: 357.7] Amy Cheung MD, [facility] CPT-4: 04098 07/24/2011 20536 EST. PATIENT, LEVEL IV Diagnosis: Abdominal pain[ICD9: 789.00] Diagnosis: Hematochezia[ICD9: 578.1] Diagnosis: Back pain[ICD9: 724.5] Amy Cheung MD, [facility] CPT-4: 84117 06/19/2011 24333 EST. 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 Rx for muscle relaxer sent to patient's pharmacy. Kenalog shot given in clinic today. 12/23/2018 Appointment: Amy Cheung WPtel: [address] [place], [place] [phone] (15 min) Moderate 12/23/2018 Patient Education: Patient Medication Summary Completed 12/23/2018 Care Plan: X-RAY EXAM THORAC SPINE 2VWS LOINC : 51351-9 Pending 12/23/2018 Visit Plan: Esophageal Reflux - the patient has been counseled against excessive intake of caffeine, spicy foods, peppermint, and cinnamon - all of which can exacerbate esophageal reflux. The patient is to take medications as prescribed and call the office if the symptoms are not improving. Advised pt to use lactaid pills 06/12/2018 Appointment: Amy Cheung WPtel: [address] [facility] [place] (15 min) Moderate 06/12/2018 Appointment: Riya Sheikh WPtel: [phone] [phone] [facility] - Annual Wellness Visit 06/12/2018 Patient Education: Patient Medication Summary Completed 06/12/2018 Visit Plan: Esophageal Reflux - the patient has been counseled against excessive intake of caffeine, spicy foods, peppermint, and cinnamon - all of which can exacerbate esophageal reflux. The patient is to take medications as prescribed and call the office if the symptoms are not improving. Gdebf-xgbaclhcy-qkagoph injection today in the office -start claritin [...] less controlled. 04/01/2018 Appointment: Amy Cheung WPtel: [phone] [facility] [place] (15 min) Moderate 04/01/2018 Patient Education: Patient Medication Summary Completed 04/01/2018 Patient Education: Patient Medication Summary Completed 03/31/2018 Appointment: [facility]el[phone] (15 min) Moderate 01/15/2018 Visit Plan: Diabetes [...] at home. 11/25/2017 Appointment: [facility]Ptel[phone] [facility] (15 min) Moderate 11/25/2017 Patient Education: Patient [...] for nystatin 09/18/2017 Appointment: Amy Cheung [facility]Ptel: [phone] [facility] (15 min) Moderate 09/18/2017 Patient Education: Patient Medication Summary Completed 09/18/2017 Visit Plan: Diabetes Mellitus - eleuterio harper [...] today 05/02/2017 Appointment: Amy [facility]Ptel[phone] [facility] (15 min) Moderate 05/02/2017 Patient Education: Patient Medication Summary Completed 05/02/2017 Appointment: Amy Cheung WPtel: [phone] [facility] (15 min) Moderate 04/15/2017 Visit Plan: Thrush-discussed natura l and expected course of this diagnosis and to alert me if symptoms do not follow expected course, or if any worse. RX sent to patient's pharmacy. Patient verbalized understanding of plan. 03/29/2017 Appointment: Riya Sheikh WPtel: [phone] [phone] [place] (30 min) Complex 03/29/2017 Patient Education: Patient Medication Summary Completed 03/29/2017 Patient Education: Obesity Completed 03/29/2017 Appointment: Amy Cheung WPtel: [phone] [facility] (15 min) Moderate 03/14/2017 Visit Plan: Diabetes [...] home. 11/15/2016 Appointment: Amy Cheung WPtel: [phone] [facility] (15 min) Moderate 11/15/2016 Patient Education: Patient Medication Summary Completed 11/15/2016 Appointment: Amy Cheung WPtel: [phone] [facility] (15 min) Moderate 11/07/2016 Visit Plan: Fatigue, [...] have drawn anytime after 09/04/16 LOINC : 11698-3 Pending 08/22/2016 Visit Plan: Diabetes Mellitus - [...] clinic. 08/01/2016 Appointment: Amy Cheung WPtel: [phone] [facility] (15 min) Moderate 08/01/2016 Patient Education: Patient Medication Summary Completed 08/01/2016 Appointment: Amy Cheung WPtel: [facility] (15 min) Moderate 07/09/2016 Visit Plan: [...] GI motility 07/02/2016 Appointment: Amy Cheung WPtel: [facility] (15 min) Moderate 07/02/2016 Patient Education: Patient [...] control. 06/04/2016 Appointment: Amy Cheung WPtel: [phone] [facility] (15 min) Moderate 06/04/2016 Patient Education: [...] medications. 03/26/2016 Appointment: Amy Cheung WPtel: [phone] [facility] (15 min) Moderate 03/26/2016 Patient Education: [...] Completed 10/14/2015 Appointment: Amy Cheung WPtel: [phone] [facility] (15 min) Moderate 10/13/2015 Appointment: Amy Cheung WPtel: [phone] [facility] (15 min) Moderate 05/09/2015 Visit Plan: Diabetes [...] esophageal cancer. 03/31/2015 Appointment: Amy Cheung WPtel: [facility] (15 min) Moderate 03/31/2015 Patient Education: Patient Medication Summary Completed 03/31/2015 Patient Education: Hypertension Completed 03/31/2015 Appointment: (15 min) Moderate 02/11/2015 Appointment: Amy Cheung WPtel: [facility] Sick 09/29/2014 Visit Plan: Diabetes Mellitus - [...] 9 months. 08/31/2014 Appointment: Amy Cheung WPtel: [facility] Follow up 08/31/2014 Patient Education: Patient Medication [...] Hypertension Completed 08/10/2014 Appointment: Amy Cheung WPtel: [address] [place], [place] [phone] Follow up 05/10/2014 Visit Plan: Allergies - [...] be ordered. 05/06/2014 Appointment: Amy Cheung WPtel: [facility] [place] Follow up 05/06/2014 Patient Education: Patient Medication Summary Completed 05/06/2014 Patient Education: .Cervicalgia Neck Pain Completed 05/06/2014 Appointment: Amy Cheung WPtel: [facility] [place] Follow up 05/05/2014 Visit Plan: Hypertension [...] neck. 04/14/2014 Appointment: Amy Cheung WPtel: [phone] [facility] Follow up 04/14/2014 Patient Education: Patient Medication [...] exercises. 11/10/2013 Appointment: Amy Cheung WPtel: [phone] Other 11/10/2013 Patient Education: Patient Medication Summary [...] monitor symptoms. 07/14/2013 Appointment: Amy Cheung WPtel: [phone] [facility] [place] Other 07/14/2013 Patient Education: Patient Medication Summary Completed 07/14/2013 Appointment: Riya Sheikh WPtel: [phone] [phone] [place] Follow up 07/13/2013 Visit Plan: [...] glucose control. 06/12/2013 Appointment: Ri[facility] Sheikh [facility]Ptel: [facility] [place] Other 06/12/2013 Patient Education: Patient Medication [...] to patient. 05/20/2013 Appointment: Amy Cheung WPtel: [phone] [facility] Follow up 05/20/2013 Patient Education: Patient Medication Summary Completed 05/20/2013 Appointment: Amy Cheung WPtel: [phone] Follow up 05/07/2013 Appointment: Amy Chueng WPtel: [facility] Lab Draw 04/27/2013 Patient Education: Patient Medication [...] a copy of this note to her Legal Investigator - Dr. Kraus as he will ultimately [...] Glyburide restarted. 04/09/2013 Appointment: Amy Cheung WPtel: [facility] Follow up 04/09/2013 Patient Education: Patient Medication Summary Completed 04/09/2013 Patient Education: Hypertension Completed 04/09/2013 Appointment: Amy Cheung WPtel: [address] [place] [address] Follow up 03/30/2013 Visit Plan: Hypertension - [...] Amy Cheung WPtel: [facility] Other 01/26/2013 Patient Education: Patient Medication Summary [...] at home. 12/23/2012 Appointment: Amy Cheung WPtel: [address] [place], [place] [phone] Follow up 12/23/2012 Patient Education: Patient Medication Summary Completed 12/23/2012 Patient Education: Hypertension Completed 12/23/2012 Visit Plan: Sinusitis - Pt has acut e infection - pain in face, maxillary region, Pt informed to use decongestant, RX given to patient, sinus rinses also recommended. Call if symptoms do not show improvement. 12/15/2012 Appointment: Amy Cheung WPtel: [address] [place], [place] [phone] Sick 12/15/2012 Patient Education: Patient Medication Summary Completed 12/15/2012 Visit Plan: Bruising and pain post fall- with hip pain - recommended pt to have xray of hips and pelvis and lumbar spine as she is having the pain in her hips post fall. 10/22/2012 Appointment: Amy Cheung WPtel: [address] [place], [place] [phone] Other 10/22/2012 Patient Education: Patient Medication Summary Completed 10/22/2012 Appointment: Amy Cheung WPtel: [address] [place], [place] [phone] Follow up 09/30/2012 Visit Plan: Hypertension - [...] less controlled. 08/21/2012 Appointment: Amy Cheung WPtel: [facility] Follow up 08/21/2012 Patient Education: Patient [...] that [facility] can have an [facility] can grow and change together. No change to Pat's medications today. Time based documentation -I spent over 40 minutes with the patient in discussion of the disease process, expected course, and overall prognosis for the patient's disease state. The patient/family expressed understanding. 07/17/2012 Appointment: Amy Cheung WPtel: [facility] Follow up 07/17/2012 Patient Education: Patient [...] issues today. 07/08/2012 Appointment: Amy Cheung WPtel: [facility] Other 07/08/2012 Patient Education: Patient Medication Summary [...] labs checked. 06/09/2012 Appointment: Amy Cheung WPtel: [address] [facility] Other 06/09/2012 Patient Education: Patient Medication Summary Completed 06/09/2012 Patient Education: High Blood Pressure: Essential Hypertension Completed 06/09/2012 Visit Plan: Sinusitis - Pt has acut e infection - pain in face, maxillary region, Pt informed to use decongestant, RX given to patient, sinus rinses also recommended. Call if symptoms do not show improvement. 02/12/2012 Appointment: Amy Cheung WPtel: [facility] Other 02/12/2012 Patient Education: Patient Medication Summary [...] in place. 02/05/2012 Appointment: Amy Cheung WPtel: [facility] [place] Other 02/05/2012 Patient Education: Patient Medication [...] any worse. Check your thyroid labs at [facility]-we will call you with the results. Allergies - chronic - recommended pt to use allergy medication as prescribed. Pt has been counseled as the the appropriate use of the medication. Pt to call if allergy symptoms are not controlled with the medication. Dysuria - UA negative 11/14/2011 Appointment: Amy Cheung WPtel: [address] [place] [address] [place] Other 11/14/2011 Appointment: Amy Cheung WPtel: [facility] [address] Other 11/14/2011 Patient Education: Patient Medication Summary Completed 11/14/2011 Visit Plan: Diabetes Mellitus - eleuterio harper [...] Amy Cheung WPtel: [facility] [address] Other 10/08/2011 Patient Education: Patient Medication [...] removal process. 08/28/2011 Appointment: Amy Cheung WPtel: [facility] Other 08/28/2011 Patient Education: Patient Medication [...] readings. 07/24/2011 Appointment: Amy Cheung WPtel: [phone] Other 07/24/2011 Patient Education: Patient Medication [...] lower back. 06/19/2011 Appointment: Amy Cheung WPtel: [phone] [facility]66[facility] Other 06/19/2011 Patient Education: Patient Medication Summary [...] neuropathic symptoms. 06/05/2011 Appointment: Amy Cheung WPtel: [facility] Other 06/05/2011 Patient Education: Patient Medication [...] - monitor symptoms. . Diabetes Mellitus - Uncontrolled - [...] pain in her hips post fall. . Fatigue, malaise, diaphoresis, weakness - will [...] patient's disease state. The patient/family expressed understanding. decrease claritin to 1/2 a tablet twice [...] medications. prevnar and flu shot today . Diabetes Mellitus - controlled - [...] pt needs to have labs checked. . Sinusitis - Pt has acute infection [...] week. Cough - use prn cough medication. take 1/2 bottle of m agnesium citrate [...] symptoms not improved on this regimen. . Thrush-discussed n atural and expected course of this diagnosis and to alert me if symptoms do not follow expected course, or if any worse. RX sent to patient's pharmacy. Patient verbalized understanding of plan. Nexium 40mg daily continue zantac kenalog injection today claritin 10mg daily call if reflux is not better . Esophageal Reflux - the patient has be en counseled against excessive intake of caffeine, spicy foods, peppermint, and cinnamon - all of which can exacerbate esophageal reflux. The patient is to take medications as prescribed and call the office if the symptoms are not improving. Bwyvo-yxqtqraqy-cpgqwbn injection today in the office -start claritin [...] patient stabilized during the removal process. . Diabetes Mellitus - controlled - per [...] house almost every day x 9 months. . Hypertension - wel l controlled - [...] Ilitibial band exercises. . Sinusitis - Pt garcia s acute [...] to keep the medication in place. . Rib pain and thora cic spine pain - status post fall at home - discussed with pt - need to check xrays - okay to keep using her back brace. Rx for muscle relaxer sent to patient's pharmacy. Kenalog shot given in clinic today. increase trulicity d ose to 1.5mg weekly [...] assure normal liver response to medications. . Hyperlipidemia - pt has been counseled [...] a copy of this note to her Legal Investigator - Dr. Kraus as he will ultimately [...] based on previous levels of control. . Hypertension - wel l controlled [...] become less controlled. I sent prescriptions to [facility] for the following medications: LOSARTAN 25MG [...] Advised pt to use lactaid pills increase the metform in to 1.5 tablets [...] with the medication. Dysuria - UA negative tiger balm . Allergies - chronic - recommended pt [...] - continue with plans for nystatin . Hypertension - wel l controlled - [...]
--- OUTSIDE RECORDS SUMMARY | 2019-08-12 22:56 | XMS REPORT | CCD ---
Author Author Veronica Cheung Organization Amy Cheung MD, [facility] Address [address] [place] [address] Phone Care Team Providers Care Intelligence Analyst Name Role Phone PP Unavailable CCM Unavailable Summary Purpose Interface Exchange Insurance Providers Payer name Policy type / Coverage type Covered alliance party ID Effective Begin Date Effective End Date WPS Medicare Part B Medicare Part B [id number] Unknown GEHA Medicare Part B [id number] Unknown Family history Father Diagnosis Age At [...] Inactivated Date Status * NO KNOWN DRUG JOLEEN RGIES Unknown 06/05/2011 No Inactive Date Active [...] Date Stop Date Sta tus Fill Instructions Kenalog 40 mg/mL elizabeth pension for injection RxNorm: 3207663 Milliliter(s) Inj 12/23/2018 12/23/2018 In active Lialda 1.2 gram tabl et,delayed release RxNorm: 488364 2 Tablet(s) PO daily 12/23/2018 No Stop Date Active cyclobenzaprine 5 mg tablet RxNorm: 279771 1 Tablet(s) PO TID x 3 days then as needed for muscle spasms 12/23/2018 01/01/2019 Active furosemide 40 mg tablet RxNorm: 951600 TAKE 1 TABLET DAILY 12/01/2018 08/27/2019 Active Effexor XR 75 mg cap alma,extended release RxNorm: 910096 1 Capsule(s) PO daily 09/16/2018 09/10/2019 Ac tive levothyroxine 25 mcg tablet RxNorm: 498719 Tablet(s) TAKE 1 TABL ET DAILY 08/26/2018 02/21/2019 Ac tive montelukast 10 mg ta blet RxNorm: 447872 TAKE 1 TABLET DAILY 07/21/2018 07/15/2019 Active Augmentin 500 mg-125 mg tablet RxNorm: 567586 1 Tablet(s) PO TID 05/27/2018 05/26/2018 Inactive Augmentin 500 mg-125 mg tablet RxNorm: 250008 1 Tablet(s) PO TID 05/27/2018 06/02/2018 Inactive Kenalog 40 mg/mL [place]izabeth pension for injection RxNorm: 7542658 1 Milliliter(s) Inj 05/26/2018 05/26/2018 In active pilocarpine 5 mg tablet RxNorm: 8927969 Tablet(s) TAKE 4 TABLETS DAILY 04/22/2018 07/15/2019 Ac tive Trulicity 1.5 mg/0.5 mL subcutaneous pen injector RxNorm: 8747418 INJECT 0.5ML SUBCUTANEOUSLY EVERY WEEK 02/24/2018 04/29/2019 Active levothyroxine 25 mcg tablet RxNorm: 782825 TAKE 1 TABLET DAILY 02/13/2018 08/11/2018 Inactive mesalamine 800 mg ta blet,delayed release RxNorm: 274810 TAKE 1 TABLET TWICE A DAY 12/10/2017 12/04/2018 In active metformin 500 mg tablet RxNorm: 695422 1.5 Tablet(s) PO BID 11/25/2017 11/19/2018 Inactive levothyroxine 25 mcg tablet RxNorm: 234351 TAKE 1 TABLET DAILY 11/19/2017 02/12/2018 Inactive Nexium 40 mg capsule ,delayed release RxNorm: 009432 TAKE 1 CAPSULE TWICE DAILY 11/15/2017 11/09/2018 In active Effexor XR 75 mg cap alma,extended release RxNorm: 210935 1 Capsule(s) PO daily 10/14/2017 09/15/2018 In active Bactroban 2 % topica l cream RxNorm: 829696 1 Application TOP TID 09/18/2017 09/27/2017 Inactive nystatin 100,000 uni t/mL oral suspension RxNorm: 349270 5 Milliliter(s) PO TI D 09/18/2017 09/27/2017 In active oxazepam 10 mg capsule RxNorm: 967524 1 Capsule(s) PO TID as needed anxiety 09/02/2017 02/28/2018 In active fluticasone 50 mcg/a ctuation nasal spray,suspension RxNorm: 2852933 [place] USE ONE SPRAY IN EACH NOSTRIL TWICE A DAY 08/29/2017 12/26/2017 Inactive oxazepam 10 mg capsule RxNorm: 726909 1 Capsule(s) PO TID as needed anxiety 08/29/2017 09/01/2017 In active furosemide 40 mg tablet RxNorm: 664820 TAKE 1 TABLET DAILY 08/26/2017 08/20/2018 Inactive pilocarpine 5 mg tablet RxNorm: 6139857 TAKE 4 TABLETS DAILY 08/26/2017 04/21/2018 Inactive metformin 500 mg tablet RxNorm: 997151 TAKE 1 TABLET TWICE A DAY 08/20/2017 11/24/2017 Inactive Claritin-D 12 Hour 5 mg-120 mg tablet,extended release RxNorm: 5166558 Tablet(s) TAKE ONE (1) TABLET BY MOUTH TWICE DAILY 07/29/2017 12/22/2018 Inactive fluticasone 50 mcg/a ctuation nasal spray,suspension RxNorm: 0022485 [place] USE ONE SPRAY IN EACH NOSTRIL TWICE A DAY 07/25/2017 07/24/2017 Inactive fluticasone 50 mcg/a ctuation nasal spray,suspension RxNorm: 1826019 [place] USE ONE SPRAY IN EACH NOSTRIL TWICE A DAY 07/25/2017 08/28/2017 Inactive fluticasone 50 mcg/a ctuation nasal spray,suspension RxNorm: 2693163 [place] USE ONE SPRAY IN EACH NOSTRIL TWICE A DAY 06/04/2017 07/24/2017 Inactive montelukast 10 mg ta blet RxNorm: 441157 TAKE 1 TABLET DAILY 06/03/2017 05/28/2018 Inactive levothyroxine 25 mcg tablet RxNorm: 840921 TAKE 1 TABLET DAILY 05/13/2017 11/08/2017 Inactive Voltaren 1 % topical gel RxNorm: 689227 2 Gram(s) TOP QID 05/02/2017 2017 Inactive nystatin 100,000 uni t/mL oral suspension RxNorm: 283512 5 Milliliter(s) PO QI D 03/29/2017 04/11/2017 In active Diflucan 150 mg tablet RxNorm: 541442 1 Tablet(s) PO daily 03/29/2017 05/01/2017 Inactive Trulicity 1.5 mg/0.5 mL subcutaneous pen injector RxNorm: 4669546 INJECT 0.5ML SUBCUTANEOUSLY EVERY WEEK 02/28/2017 01/29/2018 Inactive levothyroxine 25 mcg tablet RxNorm: 123375 1 Tablet(s) PO daily 11/19/2016 11/18/2016 Inactive levothyroxine 25 mcg tablet RxNorm: 587973 1 Tablet(s) PO daily 11/19/2016 05/12/2017 Inactive Claritin 10 mg tablet RxNorm: 723563 1 Tablet(s) PO daily 11/07/2016 11/06/2016 Inactive Claritin 10 mg tablet RxNorm: 119715 1 Tablet(s) PO daily 11/07/2016 12/06/2016 Inactive Zithromax Z-Ankit 250 mg tablet RxNorm: 996293 1 Tablet(s) PO UD 11/07/2016 05/01/2017 Inactive oxazepam 10 mg capsule RxNorm: 914951 1 Capsule(s) PO TID as needed anxiety 11/01/2016 12/30/2016 In active Nexium 40 mg capsule ,delayed release RxNorm: 247157 1 Capsule(s) PO BID 10/25/2016 10/19/2017 In active Claritin-D 12 Hour 5 mg-120 mg tablet,extended release RxNorm: 3716503 Tablet(s) TAKE ONE (1) TABLET BY MOUTH TWICE DAILY 10/25/2016 12/23/2016 Inactive mesalamine 800 mg ta blet,delayed release RxNorm: 705048 1 Tablet(s) PO BID 09/18/2016 09/17/2016 In active mesalamine 800 mg ta blet,delayed release RxNorm: 628409 1 Tablet(s) PO BID 09/18/2016 06/14/2017 In active Effexor XR 75 mg cap alma,extended release RxNorm: 055271 1 Capsule(s) PO daily 08/30/2016 08/24/2017 In active metformin 500 mg tablet RxNorm: 371670 1 Tablet(s) PO BID 08/17/2016 08/11/2017 Inactive oxazepam 10 mg capsule RxNorm: 588503 1 Capsule(s) PO TID as needed anxiety 08/17/2016 10/15/2016 In active Claritin-D 12 Hour 5 mg-120 mg tablet,extended release RxNorm: 9398703 TAKE ONE (1) TABLET BY MOUTH TWICE DAILY... 08/16/2016 10/24/2016 Inactive furosemide 40 mg tablet RxNorm: 912664 1 Tablet(s) daily TAKE 1 TABLET DAILY 08/14/2016 08/08/2017 In active Effexor XR 75 mg cap alma,extended release RxNorm: 021224 1 Capsule(s) PO daily 08/14/2016 08/29/2016 In active pilocarpine 5 mg tablet RxNorm: 0729338 4 Tablet(s) PO daily TAKE 4 TABLETS YARI Y 08/14/2016 08/08/2017 In active metoclopramide 5 mg tablet RxNorm: 764829 1/2 to 1 Tablet(s) PO TID for nause and GI dysmotility 07/02/2016 11/14/2016 Inactive Effexor XR 75 mg cap alma,extended release RxNorm: 416344 1 Capsule(s) PO daily 07/02/2016 08/13/2016 In active metformin 500 mg tablet RxNorm: 229995 1/2 TABLET(S) PO BID X2 WEEKS THEN INCRE ASE TO 1 TABLET PO BID THEREAFTER 06/26/2016 08/16/2016 Inactive 30 day supply Claritin-D 12 Hour 5 mg-120 mg tablet,extended release RxNorm: 3004669 1 Tablet(s) PO BID 06/18/2016 08/15/2016 Inactive montelukast 10 mg ta blet RxNorm: 413948 1 Tablet(s) PO daily 06/13/2016 06/02/2017 Inactive metformin 500 mg tablet RxNorm: 474274 1/2 Tablet(s) PO BID x2 weeks then incre ase to 1 Tablet PO BID thereafter 06/07/2016 06/06/2016 Inactive 30 day supply metformin 500 mg tablet RxNorm: 803399 1/2 Tablet(s) PO BID x2 weeks then incre ase to 1 Tablet PO BID thereafter 06/07/2016 06/25/2016 Inactive 30 day supply Diflucan 150 mg tablet RxNorm: 898308 1 Tablet(s) PO daily 03/27/2016 04/02/2016 Inactive nystatin 100,000 uni t/mL oral suspension RxNorm: 195687 5 Milliliter(s) PO QI D 03/27/2016 04/05/2016 In active nystatin 100,000 uni t/mL oral suspension RxNorm: 085212 5 Milliliter(s) PO QI D 03/27/2016 03/26/2016 In active Diflucan 150 mg tablet RxNorm: 509741 1 Tablet(s) PO daily 03/27/2016 03/26/2016 Inactive Effexor XR 75 mg cap alma,extended release RxNorm: 743365 1 Capsule(s) PO daily 03/26/2016 07/01/2016 In active this replaces the 150mg dose - we are we aning down her dose Trulicity 1.5 mg/0.5 mL subcutaneous pen injector RxNorm: 1723933 0.5 Milliliter(s) SQ QW 03/26/2016 02/27/2017 Inactive Trulicity 0.75 mg/0. 5 mL subcutaneous pen injector RxNorm: 0081672 1 injection SQ QW 03/13/2016 06/03/2016 Inactive Trulicity 0.75 mg/0. 5 mL subcutaneous pen injector RxNorm: 4280685 1/2 Milliliter(s) SQ QW 03/13/2016 03/12/2016 Inactive glyburide 2.5 mg tablet RxNorm: 648532 1/2 Tablet(s) PO BID 03/13/2016 03/25/2016 Inactive glyburide 2.5 mg tablet RxNorm: 671451 1/2 Tablet(s) PO BID 03/13/2016 03/12/2016 Inactive Claritin-D 12 Hour 5 mg-120 mg tablet,extended release RxNorm: 5623108 1 Tablet(s) PO BID 02/03/2016 10/24/2016 Inactive Synthroid 25 mcg tablet RxNorm: 657606 1 Tablet(s) PO daily 01/23/2016 11/18/2016 Inactive Synthroid 25 mcg tablet RxNorm: 235595 1 Tablet(s) PO daily 01/23/2016 01/22/2016 Inactive Claritin-D 12 Hour 5 mg-120 mg tablet,extended release RxNorm: 5804122 1 Tablet(s) PO BID 12/05/2015 05/31/2016 Inactive Effexor XR 150 mg ca psule,extended release RxNorm: 437634 TAKE 1 CAPSULE DAILY 12/05/2015 03/25/2016 In active Bydureon 2 mg/0.65 m L subcutaneous pen injector RxNorm: 8380366 2 Milligram(s) SQ QW 10/14/2015 03/12/2016 Inactive oxazepam 10 mg capsule RxNorm: 928146 1 Capsule(s) PO TID PRN as needed anxiet y 10/14/2015 04/10/2016 In active Nexium 40 mg capsule ,delayed release RxNorm: 504744 1 Capsule(s) BID TAKE 1 CAPSULE DAILY 10/14/2015 10/07/2016 Inactive this is a new RX - fill the twice daily dose instead of once daily dose Effexor XR 150 mg ca psule,extended release RxNorm: 615708 1 Capsule(s) PO daily TAKE 1 CAPSULE DAILY 10/03/2015 03/25/2016 Inactive pilocarpine 5 mg tablet RxNorm: 8703587 4 Tablet(s) PO daily TAKE 4 TABLETS YARI Y 08/09/2015 02/04/2016 In active pilocarpine 5 mg tablet RxNorm: 3344417 4 Tablet(s) PO daily TAKE 4 TABLETS YARI Y 07/26/2015 08/08/2015 In active Claritin-D 12 Hour 5 mg-120 mg tablet,extended release RxNorm: 4234470 1 Tablet(s) PO BID 05/02/2015 10/24/2016 Inactive furosemide 40 mg tablet RxNorm: 632840 1 Tablet(s) daily TAKE 1 TABLET DAILY 03/31/2015 03/24/2016 In active Nexium 40 mg capsule ,delayed release RxNorm: 167693 1 Capsule(s) BID TAKE 1 CAPSULE DAILY 03/31/2015 10/13/2015 Inactive this is a new RX - fill the twice daily dose instead of once daily dose Nexium 40 mg capsule ,delayed release RxNorm: 788839 1 Capsule(s) daily TA KE 1 CAPSULE DAILY 03/31/2015 03/30/2015 Inactive montelukast 10 mg ta blet RxNorm: 881600 1 Tablet(s) PO daily 03/31/2015 03/24/2016 Inactive Synthroid 25 mcg tablet RxNorm: 194701 1 Tablet(s) PO daily 01/17/2015 01/11/2016 Inactive Synthroid 25 mcg tablet RxNorm: 929956 1 Tablet(s) PO daily 01/03/2015 01/16/2015 Inactive Claritin-D 12 Hour 5 mg-120 mg tablet,extended release RxNorm: 7552823 1 Tablet(s) PO BID 12/29/2014 05/01/2015 Inactive Synthroid 25 mcg tablet RxNorm: 432721 1 Tablet(s) PO daily 12/20/2014 01/02/2015 Inactive Synthroid 25 mcg tablet RxNorm: 276175 1 Tablet(s) PO daily 12/07/2014 12/19/2014 Inactive Effexor XR 150 mg ca psule,extended release RxNorm: 789162 1 Capsule(s) PO daily TAKE 1 CAPSULE DAILY 11/30/2014 10/02/2015 Inactive Nexium 40 mg capsule ,delayed release RxNorm: 789588 Capsule(s) TAKE 1 CAP ALMA DAILY 11/30/2014 03/30/2015 In active fenofibric acid (cho line) 135 mg capsule,delayed release RxNorm: 118416 1 Capsule(s) PO daily 08/31/2014 08/25/2015 Inactive Bydureon 2 mg subcut aneous extended release suspension RxNorm: 2190356 1 injection SQ QW 07/21/2014 07/15/2015 Inactive fluticasone 50 mcg/a ctuation nasal spray,suspension RxNorm: 9939799 USE ONE SPRAY IN EACH NOSTRIL TWICE A DAY 07/06/2014 06/03/2017 Inactive Lipitor 10 mg tablet RxNorm: 265089 TAKE 1 TABLET AT BEDTIME 06/15/2014 10/13/2015 Inactive furosemide 40 mg tablet RxNorm: 476043 TAKE 1 TABLET DAILY 06/15/2014 03/30/2015 Inactive oxazepam 10 mg capsule RxNorm: 223433 1 Capsule(s) PO TID PRN as needed anxiet y 06/11/2014 12/07/2014 In active montelukast 10 mg ta blet RxNorm: 805514 1 Tablet(s) PO daily 05/25/2014 03/30/2015 Inactive oxazepam 10 mg capsule RxNorm: 299468 1 Capsule(s) PO TID PRN as needed anxiet y 05/06/2014 06/10/2014 In active montelukast 10 mg ta blet RxNorm: 713339 1 Tablet(s) PO daily 05/04/2014 05/24/2014 Inactive Nexium 40 mg capsule ,delayed release RxNorm: 309933 TAKE 1 CAPSULE DAILY 03/25/2014 11/29/2014 In active Nexium 40 mg capsule ,delayed release RxNorm: 233629 1 Capsule(s) PO daily TAKE 1 CAPSULE DAILY 03/02/2014 03/24/2014 Inactive oxazepam 10 mg capsule RxNorm: 859020 1 Capsule(s) PO TID PRN as needed 02/24/2014 04/24/2014 In active pilocarpine 5 mg tablet RxNorm: 0990733 TAKE 4 TABLETS DAILY 02/01/2014 07/25/2015 Inactive Claritin-D 12 Hour 5 mg-120 mg tablet,extended release RxNorm: 4035147 1 Tablet(s) PO BID 12/24/2013 10/24/2016 Inactive Effexor XR 150 mg ca psule,extended release RxNorm: 267142 1 Capsule(s) PO daily TAKE 1 CAPSULE DAILY 12/24/2013 11/29/2014 Inactive Klor-Con 10 mEq tabl et,extended release RxNorm: 809667 1 Tablet(s) PO daily 12/24/2013 10/13/2015 In active Bydureon 2 mg subcut aneous extended release suspension RxNorm: 3812196 1 injection SQ QW 12/07/2013 07/20/2014 Inactive Synthroid 25 mcg tablet RxNorm: 595776 1 Tablet(s) PO daily 12/02/2013 11/26/2014 Inactive Klor-Con 10 mEq tabl et,extended release RxNorm: 614792 1 Tablet(s) PO daily take 2 daily x 1 week then one daily thereafter 12/02/2013 12/23/2013 Inactive oxazepam 10 mg capsule RxNorm: 383844 1 Capsule(s) PO TID PRN 11/10/2013 01/08/2014 Inactive omeprazole 20 mg cap alma,delayed release RxNorm: 300693 1 Capsule(s) PO daily 11/10/2013 04/13/2014 In active Synthroid 50 mcg tablet RxNorm: 068478 Tablet(s) PO TAKE 1 TABLET DAILY 09/21/2013 12/01/2013 In active furosemide 40 mg tablet RxNorm: 010899 Tablet(s) PO TAKE 1 TABLET DAILY 09/21/2013 06/14/2014 In active Bydureon 2 mg subcut aneous extended release suspension RxNorm: 7909658 1 injection SQ QW 07/22/2013 12/06/2013 Inactive Bydureon 2 mg subcut aneous extended release suspension RxNorm: 6287987 1 injection SQ QW 07/14/2013 07/21/2013 Inactive Nexium 40 mg capsule ,delayed release RxNorm: 360999 Capsule(s) PO TAKE 1 CAPSULE DAILY 06/18/2013 11/09/2013 Inactive fluticasone 50 mcg/a ctuation nasal spray,suspension RxNorm: 661230 1 [place] NASAL BID 06/18/2013 07/05/2014 Inactive Lipitor 10 mg tablet RxNorm: 497923 Tablet(s) PO every other day 1 tablet qo d 06/18/2013 06/12/2014 In active losartan 25 mg tablet RxNorm: 592979 1 Tablet(s) PO daily 1 daily for blood p ressure 06/18/2013 10/15/2013 Inactive Toprol XL 25 mg tabl et,extended release RxNorm: 741772 1 Tablet(s) PO daily 06/18/2013 06/12/2014 In active Toprol XL 25 mg tabl et,extended release RxNorm: 342375 1 Tablet(s) PO daily 06/12/2013 06/17/2013 In active losartan 25 mg tablet RxNorm: 605629 1 Tablet(s) PO daily 1 daily for blood p ressure 06/12/2013 06/17/2013 Inactive Lipitor 10 mg tablet RxNorm: 450063 Tablet(s) PO every other day 1 tablet qo d 06/12/2013 06/17/2013 In active Effexor XR 150 mg ca psule,extended release RxNorm: 454387 1 Capsule(s) PO daily TAKE 1 CAPSULE DAILY 05/27/2013 12/23/2013 Inactive Bydureon 2 mg subcut aneous extended release suspension RxNorm: 8075995 1 injection SQ QW 05/20/2013 07/13/2013 Inactive Lipitor 10 mg tablet RxNorm: 284021 Tablet(s) PO every other day 1 tablet qo d 05/20/2013 06/11/2013 In active Pen Needle 32 x 5/32" RxNorm: Miscellaneous use with byetta pen 05/07/2013 09/03/2013 Inactive Effexor XR 150 mg ca psule,extended release RxNorm: 553422 1 Capsule(s) PO daily TAKE 1 CAPSULE DAILY 05/07/2013 05/26/2013 Inactive Pen Needle 32 x 5/32" RxNorm: Miscellaneous use with byetta pen 05/06/2013 05/06/2013 Inactive Pen Needle 32 x 5/32" RxNorm: Miscellaneous use with byetta pen 05/06/2013 05/05/2013 Inactive Byetta 5 mcg/0.02 mL per dose Sub-Q Pen Injector RxNorm: 567344 1 Unit Dose SQ BID 04/29/2013 05/19/2013 In active metformin ER 500 mg tablet,extended release 24 hr RxNorm: 165963 1 Tablet(s) PO BID 04/28/2013 06/19/2013 In active Byetta 5 mcg/0.02 mL per dose Sub-Q Pen Injector RxNorm: 144084 1 Unit Dose SQ BID 04/28/2013 04/27/2013 In active [place] 5 mcg/0.02 mL per dose Sub-Q Pen Injector RxNorm: 787920 1 Unit Dose SQ BID 04/28/2013 04/28/2013 In active Influenza Virus Vacc ine 0.5 mL RxNorm: IM 04/27/2013 04/27/2013 Inactive glyburide 2.5 mg tablet RxNorm: 172486 1 Tablet(s) PO BID 04/27/2013 04/27/2013 Inactive glyburide 2.5 mg tablet RxNorm: 607295 1/2 Tablet(s) PO daily 04/13/2013 04/26/2013 Inactive glyburide 2.5 mg tablet RxNorm: 671660 1 Tablet(s) PO daily 04/09/2013 04/12/2013 Inactive metformin ER 500 mg tablet,extended release 24 hr RxNorm: 899341 2 Tablet(s) PO BID 04/09/2013 04/27/2013 In active Lipitor 10 mg tablet RxNorm: 539189 Tablet(s) PO TAKE 1 TABLET AT BEDTIME 03/17/2013 05/19/2013 In active losartan 25 mg tablet RxNorm: 391822 1 Tablet(s) PO daily 02/12/2013 06/11/2013 Inactive montelukast 10 mg ta blet RxNorm: 722396 1 Tablet(s) PO daily 02/09/2013 02/08/2013 Inactive montelukast 10 mg ta blet RxNorm: 458429 1 Tablet(s) PO daily 02/09/2013 02/03/2014 Inactive losartan 25 mg tablet RxNorm: 013514 1 Tablet(s) PO daily 02/09/2013 02/11/2013 Inactive losartan 25 mg tablet RxNorm: 622021 1 Tablet(s) PO daily 01/26/2013 02/08/2013 Inactive Effexor XR 150 mg ca psule,extended release RxNorm: 107295 Capsule(s) PO TAKE 1 CAPSULE DAILY 12/24/2012 05/06/2013 Inactive metformin ER 500 mg tablet,extended release 24 hr RxNorm: 216620 Tablet(s) PO TAKE 2 TABLETS TWICE A DAY 12/24/2012 04/08/2013 Inactive pilocarpine 5 mg tablet RxNorm: 9520754 Tablet(s) PO TAKE 4 TABLETS DAILY 12/24/2012 01/31/2014 In active levofloxacin 500 mg tablet RxNorm: 518243 1 Tablet(s) PO daily 12/15/2012 12/19/2012 Inactive Nexium 40 mg capsule ,delayed release RxNorm: 433749 Capsule(s) PO daily T MILO 1 CAPSULE DAILY 11/03/2012 06/17/2013 Inactive Claritin-D 12 Hour 5 mg-120 mg tablet,extended release RxNorm: 0234399 1 Tablet(s) PO BID 10/29/2012 10/23/2013 Inactive TAKE 1 TABLET BY MOUTH TWICE DAILY fluticasone 50 mcg/a ctuation nasal spray,suspension RxNorm: 1858825 1 [place] NASAL BID 10/08/2012 06/17/2013 Inactive Claritin-D 12 Hour 5 mg-120 mg tablet,extended release RxNorm: 0561008 1 Tablet(s) PO BID 09/09/2012 2012 Inactive TAKE 1 TABLET BY MOUTH TWICE DAILY montelukast 10 mg ta blet RxNorm: 116252 1 Tablet(s) PO daily 08/20/2012 02/08/2013 Inactive Synthroid 50 mcg tablet RxNorm: 640968 Tablet(s) PO TAKE 1 TABLET DAILY 08/18/2012 09/20/2013 In active Nexium 40 mg capsule ,delayed release RxNorm: 696174 Capsule(s) PO TAKE 1 CAPSULE DAILY 08/18/2012 11/02/2012 Inactive furosemide 40 mg tablet RxNorm: 872609 Tablet(s) PO TAKE 1 TABLET DAILY 08/18/2012 09/20/2013 In active Klor-Con 10 mEq tabl et,extended release RxNorm: 654434 Tablet(s) PO TAKE 1 T ABLET DAILY 08/18/2012 12/01/2013 Inactive Xanax 0.5 mg tablet RxNorm: 005168 1 Tablet(s) PO Q6 PRN 07/17/2012 10/13/2015 Inactive Zithromax 250 mg tablet RxNorm: 354475 Tablet(s) PO 07/14/2012 11/10/2013 Inactive disp one z ankit fluticasone 50 mcg/a ctuation Nasal [place], Susp RxNorm: 2956586 1 [place] NASAL BID 06/27/2012 10/07/2012 In active Anusol-HC 25 mg Supp ository RxNorm: 8664183 1 Suppository RTL QD AY PRN 06/09/2012 12/22/2018 In active daily x 3 days then prnno longer than 10 days in row use Claritin-D 12 Hour 5 mg-120 mg tablet,extended release RxNorm: 1573821 1 Tablet(s) PO BID 05/22/2012 05/22/2012 Inactive TAKE 1 TABLET BY MOUTH TWICE DAILY Claritin-D 12 Hour 5 mg-120 mg tablet,extended release RxNorm: 3684268 Tablet(s) PO 05/12/2012 05/21/2012 In active TAKE 1 TABLET BY MOUTH TWICE DAILY fluticasone 50 mcg/a ctuation Nasal [place], Susp RxNorm: 9450018 1 [place] NASAL BID 05/06/2012 06/26/2012 In active Rocephin 500 mg Solu tion for Injection RxNorm: 7491567 Inj 01/1802/12/2012 Inactive metronidazole 500 mg Tab RxNorm: 672365 1 Tablet(s) PO TID 02/12/2012 02/18/2012 Inactive Kenalog 40 mg/mL [place] p for Injection RxNorm: 5699974 Milliliter(s) Inj 02/12/2012 02/12/2012 In active fluticasone 50 mcg/a ctuation Nasal [place], Susp RxNorm: 5525705 1 [place] NASAL BID 02/12/2012 05/05/2012 In active cefdinir 300 mg Cap RxNorm: 541517 1 Capsule(s) PO BID 02/12/2012 02/21/2012 Inactive Effexor XR 150 mg ca psule,extended release RxNorm: 978395 1 Capsule(s) PO daily 12/17/2011 12/10/2012 In active metformin ER 500 mg tablet,extended release 24 hr RxNorm: 887950 2 Tablet(s) PO BID 12/17/2011 05/14/2012 In active pilocarpine 5 mg tablet RxNorm: 4752368 4 Tablet(s) PO daily 12/17/2011 03/15/2012 Inactive Singulair 10 mg Tab RxNorm: 086709 1 Tablet(s) PO daily 11/27/2011 08/19/2012 Inactive Nexium 40 mg capsule ,delayed release RxNorm: 325694 1 Capsule(s) PO daily 11/26/2011 03/24/2012 In active Claritin-D 12 Hour 5 mg-120 mg tablet,extended release RxNorm: 9647607 1 Tablet(s) PO BID 11/14/2011 05/11/2012 Inactive Claritin-D 12 Hour 5 mg-120 mg Tab RxNorm: 2245347 1 Tablet(s) PO BID 10/31/2011 11/13/2011 In active Claritin-D 12 Hour 5 mg-120 mg Tab RxNorm: 8301354 1 Tablet(s) PO BID 10/29/2011 2011 In active Claritin-D 12 Hour 5 mg-120 mg Tab RxNorm: 2513649 1 Tablet(s) PO BID 10/29/2011 10/30/2011 In active Claritin-D 24 Hour 1 0 mg-240 mg Tab RxNorm: 9107159 1 Tablet(s) PO daily 10/23/2011 2011 In active levofloxacin 500 mg Tab RxNorm: 604568 1 Tablet(s) PO daily 08/28/2011 09/03/2011 Inactive Nasonex 50 mcg/actua tion [place] RxNorm: 633104 1 [place] NASAL BID 08/28/2011 11/25/2011 Inactive promethazine 25 mg/m L Injection RxNorm: 549406 1 Milliliter(s) Inj 08/23/2011 07/14/2013 Inactive glyburide 2.5 mg tablet RxNorm: 092790 1 Tablet(s) PO daily 08/23/2011 04/08/2013 Inactive Rocephin 500 mg Solu tion for Injection RxNorm: 8137690 1 Milliliter(s) Inj 08/23/2011 08/28/2011 In active Klor-Con 10 10 mEq t ablet,extended release RxNorm: 422679 1 Tablet(s) PO daily 08/06/2011 07/30/2012 In active Nexium 40 mg Capsule , delayed release RxNorm: 025794 1 Capsule(s) PO daily 08/06/2011 11/25/2011 In active furosemide 40 mg tablet RxNorm: 077968 1 Tablet(s) PO daily 08/06/2011 07/30/2012 Inactive Cymbalta 30 mg Cap RxNorm: 119131 1 Capsule(s) PO daily 07/26/2011 08/28/2011 Inactive Synthroid 50 mcg tablet RxNorm: 063411 Tablet(s) PO 06/21/2011 08/17/2012 Inactive TAKE 1 TABLET DAILY Neurontin 100 mg Cap RxNorm: 629040 2 Capsule(s) PO TID 06/19/2011 08/28/2011 Inactive ciprofloxacin 500 mg Tab RxNorm: 668604 1 Tablet(s) PO BID 06/19/2011 08/28/2011 Inactive Neurontin 100 mg Cap RxNorm: 508906 1 Capsule(s) PO QID 06/05/2011 06/18/2011 Inactive oxazepam 10 mg Cap RxNorm: 035017 1 Capsule(s) PO Q6 PRN 06/05/2011 10/02/2011 Inactive Influenza Virus Vacc ine 0.5 mL RxNorm: IM 06/05/2011 06/05/2011 Inactive hydrocodone-acetamin ophen 5 mg-500 mg Tab RxNorm: 569073 1 Tablet(s) PO Q6 PRN No Start Date Active Fish Oil 1,000 mg Cap RxNorm: 2 Capsule(s) PO BID No Start Date Active Zenpep 40,000-136,00 0-218,000 unit capsule,delayed release RxNorm: 0819802 1 Capsule(s) PO QID No Start Date Active Multiple Vitamins ch ewable tablet RxNorm: 1 Tablet(s) PO daily No Start Date Active mesalamine 4 gram/60 mL enema RxNorm: 459694 1 Milliliter(s) RTL d aily No Start Date Active aspirin 81 mg Cap, D elayed Release RxNorm: 570717 1 Capsule(s) PO daily No Start Date Active Vitamin B-12 1,000 m cg Tab RxNorm: 917559 2 Tablet(s) PO daily No Start Date Active Vitamin C With Darlyn Hips 1,000 mg Tab RxNorm: 734691 1 Tablet(s) PO daily No Start Date Active Lipitor 10 mg Tab RxNorm: 496353 1 Tablet(s) PO HS No Start Date 04/10/2011 Inactive EnteraGam 5 gram ora l powder packet RxNorm: 1 PO daily No S tart Date 12/22/2018 Inactive Lipitor 20 mg Tab RxNorm: 704968 1 Tablet(s) PO HS No Start Date 08/28/2011 Inactive Zithromax 250 mg tablet RxNorm: 776074 Tablet(s) PO No Start Date 07/13/2012 Inactive disp one z ankit Effexor XR 150 mg 24 hr Cap RxNorm: 086352 1 Capsule(s) PO daily No Start Date 12/16/2011 Inactive Bydureon 2 mg/0.65 m L subcutaneous pen injector RxNorm: 5014934 Milliliter(s) SQ QW No Start Date 10/13/2015 Inactive Centrum Ultra Women' s 18 mg-400 mcg Tab RxNorm: 1 Tablet(s) PO daily No Start Date 12/22/2018 Inactive furosemide 40 mg Tab RxNorm: 787902 1 Tablet(s) PO daily No Start Date 08/05/2011 Inactive Synthroid 25 mcg tablet RxNorm: 540791 1 Tablet(s) PO daily No Start Date 12/01/2013 Inactive Januvia 50 mg tablet RxNorm: 558503 1 Tablet(s) PO daily samples No Start Date 04/27/2013 Inactive Lipitor 10 mg tablet RxNorm: 265839 1 Tablet(s) PO daily No Start Date 03/16/2013 Inactive Crestor 10 mg tablet RxNorm: 803575 1 Tablet(s) PO QHS No Start Date 03/25/2016 Inactive Asacol HD 800 mg Tab RxNorm: 163797 2 Tablet(s) PO daily No Start Date 10/13/2015 Inactive pilocarpine 5 mg Tab RxNorm: 4831199 4 Tablet(s) PO daily No Start Date 12/16/2011 Inactive glyburide 2.5 mg Tab RxNorm: 307404 1 Tablet(s) PO BID No Start Date 08/22/2011 Inactive Claritin-D 24 Hour 1 0 mg-240 mg Tab RxNorm: 4147073 1 Tablet(s) PO daily No Start Date 10/22/2011 Inactive Vitamin D 1,000 unit Tab RxNorm: 127580 1 Tablet(s) PO daily No Start Date 10/13/2015 Inactive Tricor 145 mg Tab RxNorm: 028994 1 Tablet(s) PO daily No Start Date 10/14/2015 Inactive Zithromax Z-Ankit 250 mg tablet RxNorm: 047007 1 Tablet(s) PO UD No Start Date 11/06/2016 Inactive Synthroid 25 mcg tablet RxNorm: 818209 1 Tablet(s) PO daily No Start Date 05/01/2017 Inactive Claritin-D 12 Hour 5 mg-120 mg tablet,extended release RxNorm: 5656684 1 Tablet(s) PO BID No Start Date 12/23/2013 Inactive Singulair 10 mg Tab RxNorm: 741879 1 Tablet(s) PO daily No Start Date 11/26/2011 Inactive Linzess 290 mcg capsule RxNorm: 0355917 1 Capsule(s) PO daily No Start Date 12/22/2018 Inactive Calcium 600 + D(3) 6 00 mg (1,500)-200 unit Tab RxNorm: 443316 1 Tablet(s) PO daily No Start Date 10/13/2015 Inactive Lialda 1.2 gram tabl et,delayed release RxNorm: 004410 2 Tablet(s) PO daily No Start Date 09/17/2016 Inactive Effexor XR 150 mg 24 hr Cap RxNorm: 201453 1 Capsule(s) PO daily No Start Date 08/28/2011 Inactive aspirin 325 mg Tab RxNorm: 287571 1 Tablet(s) PO daily No Start Date 08/28/2011 Inactive Toprol XL 25 mg tabl et,extended release RxNorm: 750391 1 Tablet(s) PO daily No Start Date 06/11/2013 Inactive lisinopril 10 mg tablet RxNorm: 749219 1 Tablet(s) PO daily No Start Date 01/25/2013 Inactive Cymbalta 60 mg Cap RxNorm: 100592 1 Capsule(s) PO daily No Start Date 08/28/2011 Inactive Nexium 40 mg Cap RxNorm: 910574 1 Capsule(s) PO daily No Start Date 08/05/2011 Inactive dicyclomine 10 mg Cap RxNorm: 801892 1 Capsule(s) PO daily No Start Date 07/13/2013 Inactive Synthroid 50 mcg Tab RxNorm: 941925 1 Tablet(s) PO daily No Start Date 06/20/2011 Inactive metformin ER 500 mg 24 hr Tab RxNorm: 358145 2 Tablet(s) PO BID No Start Date 12/16/2011 Inactive Anusol-HC 25 mg Supp ository RxNorm: 9648589 1 Suppository RTL No Start Date 06/08/2012 Inactive daily x 3 days then prnno longer than 10 days in row use Medication Administered Medication Codes Instruc tions Start Date Status Kenalog 40 mg/mL suspension for injection RxNorm: 0701579 Milliliter 12/23/2018 Ac tive Kenalog 40 mg/mL suspension for injection RxNorm: 2902209 1Milliliter 05/26/2018 N o longer Active Influenza Virus Vaccine 0.5 mL RxNorm: 04/27/2013 No longer Active Rocephin 500 mg Solution for Injection RxNorm: 0083150 02/12/2012 No longer A ctive Kenalog 40 mg/mL Susp for Injection RxNorm: 9510698 Milliliter 02/12/2012 No longer Active Influenza Virus [...] Code Item Item Code Result Date %Hba1C Bnj717 % HbA1c 21643-4 6.6 % 04/01/2018 %Hba1C Zxn541 Gluc Ave 143 mg/dL 04/01/2018 Lipid Ord30 CHOL 178 mg/dL 04/01/2018 Lipid Ord30 HDL 50.0 mg/dl 04/01/2018 Lipid Ord30 TRIG 221 mg/dL 04/01/2018 Lipid Ord30 LDL 84 mg/dL 04/01/2018 Lipid Ord30 C/HDL 3.6 Ratio 04/01/2018 %Hba1C Boq225 % HbA1c 33899-7 6.7 % 11/25/2017 %Hba1C Cui689 Gluc Ave 146 mg/dL 11/25/2017 Comp Metabolic Sjo320 NA 144 mEq/L 04/30/2017 Comp Metabolic Iwg346 K 4.3 mEq/L 04/30/2017 Comp Metabolic Ivi565 CL 105 mEq/L 04/30/2017 Comp Metabolic Msq472 CO2 29.0 mEq/L 04/30/2017 Comp Metabolic Bes408 AN ION GAP 14 04/30/2017 Comp Metabolic Jzi522 GL UCOSE 109 mg/dL 04/30/2017 Comp Metabolic Qqi329 Cr eat 1.0 mg/dL 04/30/2017 Comp Metabolic Sje886 eG FR 58 ml/min/1.73m2 04/30 Comp Metabolic Nbr089 BUN 17 mg/dL 04/30/2017 Comp Metabolic Isg441 B/ C Ratio 17.3 Ratio 04/30/2017 Comp Metabolic Fwx800 CA LCIUM 10.1 mg/dL 04/30/2017 Comp Metabolic Mrp861 AL K PHOS 47 U/L 04/30/2017 Comp Metabolic Njq621 T(SGOT) 16 U/L 04/30/2017 Comp Metabolic Lie281 AL T(SGPT) 16 U/L 04/30/2017 Comp Metabolic Zax436 BI LI T 0.4 mg/dL 04/30/2017 Comp Metabolic Mfp061 AL BUMIN 4.5 g/dL 04/30/2017 Comp Metabolic Fvh367 TP RO 6.7 g/dL 04/30/2017 Comp Metabolic Jrv117 GL OB 2.2 g/dL 04/30/2017 Comp Metabolic Pbp897 A/ G Ratio 2.0 Ratio 04/30/2017 Comp Metabolic Akv266 Os mo 289 mOsmo 04/30/2017 Cbc With [...] 28.2 pg 04/30/2017 Cbc With Differential Ord2 Banner% 6.5 % 04/30/2017 Cbc With Differential Ord2 [...] 1.12 K/ul 04/30/2017 Cbc With Differential Ord2 Banner ABS# 0.2 K/ul 04/30/2017 Cbc With Differential Ord2 Eos ABS# 0.1 K/ul 04/30/2017 Cbc With Differential Ord2 Baso ABS# 0.0 K/ul 04/30/2017 %Hba1C Ynh671 % HbA1c 48172-3 6.7 % 04/30/2017 %Hba1C Cqx740 Gluc Ave 146 mg/dL 04/30/2017 Tsh Ord6 hTSH II 1.36 uIU/mL 04/30/2017 Lipid Ord30 CHOL 160 mg/dL 04/30/2017 Lipid Ord30 HDL 51.0 mg/dl 04/30/2017 Lipid Ord30 TRIG 195 mg/dL 04/30/2017 Lipid Ord30 LDL 70 mg/dL 04/30/2017 Lipid Ord30 C/HDL 3.1 Ratio 04/30/2017 Free T4 Xrx613 FREE T4 0.75 ng/dL 04/30/2017 Ferritin Ord22 FERRITIN 89.9 ng/mL 11/09/2016 Parathyroid Hormone Gkf741 PTH 36.20 pg/ml 11/09/2016 Tibc Ord40 Iron 75 ug/dl 11/08/2016 Tibc Ord40 UIBC 325 ug/dL 11/08/2016 Tibc Ord40 TIBC 400 ug/dL 11/08/2016 Tibc Ord40 Fe-%Sat 18.8 % 11/08/2016 Comp Metabolic Cro031 NA 139 mEq/L 09/25/2016 Comp Metabolic Dih619 K 4.3 mEq/L 09/25/2016 Comp Metabolic Hgd586 CL 101 mEq/L 09/25/2016 Comp Metabolic Taq802 CO2 31.0 mEq/L 09/25/2016 Comp Metabolic Ngf321 AN ION GAP 11 09/25/2016 Comp Metabolic Tqx567 GL UCOSE 116 mg/dL 09/25/2016 Comp Metabolic Jbq873 Cr eat 1.1 mg/dL 09/25/2016 Comp Metabolic Hjm852 eG FR 53 ml/min/1.73m2 09/25 Comp Metabolic Aoy850 BUN 22 mg/dL 09/25/2016 Comp Metabolic Aje022 B/ C Ratio 20.8 Ratio 09/25/2016 Comp Metabolic Geo336 CA LCIUM 10.3 mg/dL 09/25/2016 Comp Metabolic Yfb448 AL K PHOS 52 U/L 09/25/2016 Comp Metabolic Hpu215 T(SGOT) 16 U/L 09/25/2016 Comp Metabolic Egk598 AL T(SGPT) 17 U/L 09/25/2016 Comp Metabolic Efr972 BI LI T 0.3 mg/dL 09/25/2016 Comp Metabolic Sym676 AL BUMIN 4.7 g/dL 09/25/2016 Comp Metabolic Qdt753 TP RO 6.9 g/dL 09/25/2016 Comp Metabolic Olc322 GL OB 2.2 g/dL 09/25/2016 Comp Metabolic Xcd252 A/ G Ratio 2.1 Ratio 09/25/2016 Comp Metabolic Tuy665 Os mo 282 mOsmo 09/25/2016 Lipid Ord30 CHOL 182 mg/dL 09/25/2016 Lipid Ord30 HDL 55.0 mg/dl 09/25/2016 Lipid Ord30 TRIG 168 mg/dL 09/25/2016 Lipid Ord30 LDL 93 mg/dL 09/25/2016 Lipid Ord30 C/HDL 3.3 Ratio 09/25/2016 %Hba1C Abh878 % HbA1c 20824-4 7.0 % 09/25/2016 %Hba1C Wns227 Gluc Ave 154 mg/dL 09/25/2016 Free T4 Gfl620 FREE T4 0.80 ng/dL 09/25/2016 Cbc With [...] 28.3 pg 09/25/2016 Cbc With Differential Ord2 Banner% 8.2 % 09/25/2016 Cbc With Differential Ord2 [...] 1.29 K/ul 09/25/2016 Cbc With Differential Ord2 Banner ABS# 0.3 K/ul 09/25/2016 Cbc With Differential Ord2 Eos ABS# 0.0 K/ul 09/25/2016 Cbc With Differential Ord2 Baso ABS# 0.0 K/ul 09/25/2016 Tsh Ord6 hTSH II 1.01 uIU/mL 09/25/2016 Tsh Ord6 hTSH II 1.35 uIU/mL 06/04/2016 Comp Metabolic Zvu489 NA 135 mEq/L 06/04/2016 Comp Metabolic Bni448 K 3.8 mEq/L 06/04/2016 Comp Metabolic Ifk803 CL 99 mEq/L 06/04/2016 Comp Metabolic Egs480 CO2 30.0 mEq/L 06/04/2016 Comp Metabolic Drk781 AN ION GAP 10 06/04/2016 Comp Metabolic Wvr429 GL UCOSE 171 mg/dL 06/04/2016 Comp Metabolic Aib725 Cr eat 1.0 mg/dL 06/04/2016 Comp Metabolic Fci208 eG FR 59 ml/min/1.73m2 06/04 Comp Metabolic Oze348 BUN 22 mg/dL 06/04/2016 Comp Metabolic Qdf245 B/ C Ratio 22.4 Ratio 06/04/2016 Comp Metabolic Kay329 CA LCIUM 10.4 mg/dL 06/04/2016 Comp Metabolic Egp482 AL K PHOS 68 U/L 06/04/2016 Comp Metabolic Dcw780 T(SGOT) 22 U/L 06/04/2016 Comp Metabolic Naa750 AL T(SGPT) 25 U/L 06/04/2016 Comp Metabolic Bmi887 BI LI T 0.4 mg/dL 06/04/2016 Comp Metabolic Kif266 AL BUMIN 4.5 g/dL 06/04/2016 Comp Metabolic Nyb977 TP RO 7.0 g/dL 06/04/2016 Comp Metabolic Ikj048 GL OB 2.5 g/dL 06/04/2016 Comp Metabolic Crt470 A/ G Ratio 1.8 Ratio 06/04/2016 Comp Metabolic Oou019 Os mo 277 mOsmo 06/04/2016 Cbc With [...] 29.1 pg 06/04/2016 Cbc With Differential Ord2 Banner% 7.9 % 06/04/2016 Cbc With Differential Ord2 [...] 1.58 K/ul 06/04/2016 Cbc With Differential Ord2 Banner ABS# 0.5 K/ul 06/04/2016 Cbc With Differential Ord2 Eos ABS# 0.1 K/ul 06/04/2016 Cbc With Differential Ord2 Baso ABS# 0.1 K/ul 06/04/2016 %Hba1C Lzl767 % HbA1c 71098-1 8.7 % 06/04/2016 %Hba1C Moy094 Gluc Ave 203 mg/dL 06/04/2016 Free T4 Lej409 FREE T4 0.84 ng/dL 06/04/2016 Lipid Ord30 CHOL 111 mg/dL 06/04/2016 Lipid Ord30 HDL 51.0 mg/dl 06/04/2016 Lipid Ord30 TRIG 185 mg/dL 06/04/2016 Lipid Ord30 LDL 23 mg/dL 06/04/2016 Lipid Ord30 C/HDL 2.2 Ratio 06/04/2016 Microalbumin Ipl721 Micr oAlb <0.7 mg/dL 06/04/2016 Comp Metabolic Lgw973 NA 142 mEq/L 03/12/2016 Comp Metabolic Byq077 K 4.1 mEq/L 03/12/2016 Comp Metabolic Jlk221 CL 103 mEq/L 03/12/2016 Comp Metabolic Gnn916 CO2 30.0 mEq/L 03/12/2016 Comp Metabolic Zmr787 AN ION GAP 13 03/12/2016 Comp Metabolic Czw736 GL UCOSE 138 mg/dL 03/12/2016 Comp Metabolic Rkf622 Cr eat 0.8 mg/dL 03/12/2016 Comp Metabolic Ofa362 eG FR 75 ml/min/1.73m2 03/12 Comp Metabolic Exp999 BUN 18 mg/dL 03/12/2016 Comp Metabolic Udx326 B/ C Ratio 22.8 Ratio 03/12/2016 Comp Metabolic Prh789 CA LCIUM 9.8 mg/dL 03/12/2016 Comp Metabolic Oqc588 AL K PHOS 83 U/L 03/12/2016 Comp Metabolic Vxn113 T(SGOT) 15 U/L 03/12/2016 Comp Metabolic Cnv661 AL T(SGPT) 20 U/L 03/12/2016 Comp Metabolic Ktu420 BI LI T 0.4 mg/dL 03/12/2016 Comp Metabolic Voc865 AL BUMIN 4.2 g/dL 03/12/2016 Comp Metabolic Sjm288 TP RO 6.4 g/dL 03/12/2016 Comp Metabolic Kwy202 GL OB 2.2 g/dL 03/12/2016 Comp Metabolic Yoy846 A/ G Ratio 1.9 Ratio 03/12/2016 Comp Metabolic Lef836 Os mo 287 mOsmo 03/12/2016 %Hba1C Ovg573 % HbA1c 26802-3 7.2 % 03/12/2016 %Hba1C Wis214 Gluc Ave 160 mg/dL 03/12/2016 Comp Metabolic Kux656 NA 138 mEq/L 10/18/2015 Comp Metabolic Xwu351 K 4.1 mEq/L 10/18/2015 Comp Metabolic Ljd516 CL 97 mEq/L 10/18/2015 Comp Metabolic Jre357 CO2 32.0 mEq/L 10/18/2015 Comp Metabolic Eqp949 AN ION GAP 13 10/18/2015 Comp Metabolic Wqo171 GL UCOSE 145 mg/dL 10/18/2015 Comp Metabolic Ffn566 Cr eat 1.1 mg/dL 10/18/2015 Comp Metabolic Mcl753 eG FR 50 ml/min/1.73m2 10/17 Comp Metabolic Wpw241 BUN 23 mg/dL 10/18/2015 Comp Metabolic Jhd672 B/ C Ratio 20.4 Ratio 10/18/2015 Comp Metabolic Kzb393 CA LCIUM 10.3 mg/dL 10/18/2015 Comp Metabolic Upi243 AL K PHOS 59 U/L 10/18/2015 Comp Metabolic Iab238 T(SGOT) 17 U/L 10/18/2015 Comp Metabolic Glr573 AL T(SGPT) 21 U/L 10/18/2015 Comp Metabolic Xry377 BI LI T 0.4 mg/dL 10/18/2015 Comp Metabolic Dix121 AL BUMIN 4.6 g/dL 10/18/2015 Comp Metabolic Sak299 TP RO 7.1 g/dL 10/18/2015 Comp Metabolic Bva404 GL OB 2.5 g/dL 10/18/2015 Comp Metabolic Bib805 A/ G Ratio 1.9 Ratio 10/18/2015 Comp Metabolic Qfj232 Os mo 282 mOsmo 10/18/2015 Tsh Ord6 hTSH II 1.81 uIU/mL 10/18/2015 %Hba1C Jkd238 % HbA1c 71226-1 7.3 % 10/18/2015 %Hba1C Lel476 Gluc Ave 163 mg/dL 10/18/2015 Iron Ord72 Iron 90 ug/dl 10/18/2015 Free T4 Ynr533 FREE T4 0.75 ng/dL 10/18/2015 Cbc With [...] 29.0 pg 10/18/2015 Cbc With Differential Ord2 Banner% 6.8 % 10/18/2015 Cbc With Differential Ord2 [...] 1.93 K/ul 10/18/2015 Cbc With Differential Ord2 Banner ABS# 0.5 K/ul 10/18/2015 Cbc With Differential [...] Lipid Ord30 C/HDL 2.3 Ratio 10/18/2015 TSH 2110999 TSH 1.042 uIU/ML 12/24/2012 A1C HPLC 7829049 A1C HPLC 84671-4 7.6 % 12/24/2012 ESR 9783480 ESR 2 MM/HR 12/23/2012 CHEM 14 1317849 AST 20 U/L 12/23/2012 CHEM 14 4362011 ALT 24 IU/L 12/23/2012 CHEM 14 5287427 BUN 16 MG/DL 12/23/2012 CHEM 14 2320489 ALBUMIN 4.7 GM/DL 12/23/2012 CHEM 14 2031571 CHLORIDE 102 MMOL/L 12/23/2012 CHEM 14 6438345 BILI TOT 0.3 MG/DL 12/23/2012 CHEM 14 8720674 ALK PHOS 109 U/L 12/23/2012 CHEM 14 8034238 SODIUM 142 MMOL/L 12/23/2012 CHEM 14 7641077 CREATINI NE 0.93 MG/DL 12/23/2012 CHEM 14 4868894 CALCIUM 10.0 MG/DL 12/23/2012 CHEM 14 9703010 POTASSIUM 3.7 MMOL/L 12/23/2012 CHEM 14 6664833 PROT TOT 7.2 GM/DL 12/23/2012 CHEM 14 3660706 GLUCOSE 116 MG/DL 12/23/2012 CHEM 14 2014863 BICARB 32 MMOL/L 12/23/2012 CHEM 14 4897185 ANION GAP 8 MEQ/L 12/23/2012 GFR CALC 2751760 GFR AA >60 ML/MIN 12/23/2012 GFR CALC 5892017 GFR NON -AA 59.0L ML/MIN 201 3 CBC 6991527 WBC 5.5 10e9/L 12/23/2012 CBC 5630805 RBC 4.90 10e12/L 12/23/2012 CBC 9602682 HGB 14.1 g/dL 12/23/2012 CBC 2664651 HCT DET 42.4 % 12/23/2012 CBC 2203933 MCV 86.5 fL 12/23/2012 CBC 2345668 MCH 28.8 pg 12/23/2012 CBC 1537265 MCHC 33.3 g/dL 12/23/2012 CBC 8871746 PLT 320 10e9/L 12/23/2012 CBC 3662031 MPV 9.9 fL 12/23/2012 CBC 1962376 BRANDIE % 63.7 % 12/23/2012 CBC 2904482 LY % 24.6 % 12/23/2012 CBC 1494080 MON % 6.3 % 12/23/2012 CBC 6927820 EOS % 4.7 % 12/23/2012 CBC 6701018 BASO % 0.7 % 12/23/2012 CBC 1902031 RDW 15.0 % 12/23/2012 CBC 2427291 ABS BRANDIE 3.50 10e9/L 12/23/2012 CBC 2440908 ABS LYMPH 1.35 10e9/L 12/23/2012 CBC 7914101 ABS MONO 0.35 10e9/L 12/23/2012 CBC 5970997 ABS EOS 0.26 10e9/L 12/23/2012 CBC 0404701 ABS BASO 0.04 10e9/L 12/23/2012 CBC 1481353 RDW-SD 47.1 fL 12/23/2012 CRP 0429170 CRP 0.1 MG/DL 12/23/2012 URINALYSIS NONAUTO W/O SCOPE 99761 Specific [place] 1.005 DateTime(Free Text in Apr) URINALYSIS NONAUTO W/O SCOPE 88595 PH 7.5 DateTime(Free Mina t in Apr) URINALYSIS NONAUTO W/O SCOPE 43348 GLUCOSE NEG DateTime(Free Mina t in Aprima) URINALYSIS NONAUTO W/O SCOPE 27888 Protein NEG DateTime(Free Mina t in Aprima) URINALYSIS NONAUTO W/O SCOPE 49975 Blood NEG DateTime(Free Mina t in Aprima) URINALYSIS NONAUTO W/O SCOPE 12553 Bilirubin NEG DateTime(Free Mina t in ) URINALYSIS NONAUTO W/O SCOPE 69438 Ketones NEG DateTime(Free Mina t in ) URINALYSIS NONAUTO W/O SCOPE 73118 Urobilinogen NEG DateTime(Free Text in ) URINALYSIS NONAUTO W/O SCOPE 02330 Nitrite NEG DateTime(Free Mina t in ) URINALYSIS NONAUTO W/O SCOPE 35021 Leukocytes NEG DateTime(Free Text in ) Review [...] Neurologic No headache 1 08/19/2010 Psychiatric anxiety 0 08/2010 Psychiatric No depression 06/19/2011 Constitutional No [...] retractions 01/26/2013 None Full Exam - General 1995 Respiratory respiratory effort/rhythm Overall: normal rate 01/26/2013 [...] occlusion 01/26/2013 None Full Exam - General 1994 [...] distress 12/15/2012 None Full Exam - General 1995 Constitutional general appearance Overall: well nourished 12/15/2012 [...] intact 10/22/2012 None Full Exam - General 1995 [...] 1994 Ears/Nose/Throat oral cavity/pharynx/larynx Overall: no masses 08/21/2012 [...] posture 08/21/2012 None Full Exam - General 1995 [...] clear 07/08/2012 None Full Exam - General 1995 Ears/Nose/Throat otoscopic exam Overall: tympanic membranes clear 07/08/2012 None Full Exam - General 1994 Ears/Nose/Throat oral cavity/pharynx/larynx Overall: oral mucosa clear 07/08/2012 None Full Exam - General 1995 Ears/Nose/Throat [...] nourished 08/23/2011 None Full Exam - General 1994 Constitutional general appearance Overall: well developed 08/23/2011 [...] Procedure Codes Date THER/PROPH/DIAG INJ SC/IM CPT-4: 05324 12/23/2018 TRIAMCINOLONE ACET I [place] NOS CPT-4: J3301 12/23/2018 THER/PROPH/DIAG INJ SC/IM CPT-4: 45093 05/26/2018 TRIAMCINOLONE ACET I [place] NOS CPT-4: J3301 05/26/2018 FLU VAC NO PRSV 4 VA L 3 YRS+ CPT-4: 84845 05/02/2017 ADMIN INFLUENZA VIRU S VAC CPT-4: G0008 05/02/2017 ADMIN PNEUMOCOCCAL V ACCINE SNOMED CT: 15924374 CPT-4: G0009 05/02/2017 PNEUMOCOCCAL VACC [address]: 56539769 CPT-4: 34229 05/02/2017 FLU VAC NO PRSV 4 VA L 3 YRS+ CPT-4: 84249 05/06/2014 ADMIN PNEUMOCOCCAL V ACCINE SNOMED CT: 92934750 CPT-4: G0009 05/06/2014 PRESCRIP TRANSMIT A ERX SY CPT-4: G8553 06/12/2013 PRESCRIP TRANSMIT A ERX SY CPT-4: G8553 05/20/2013 ADMIN INFLUENZA VIRU S VAC CPT-4: G0008 04/27/2013 FLULAVAL VACC, 3 YRS & >, IM CPT-4: Q2036 04/27/2013 PRESCRIP TRANSMIT A ERX SY CPT-4: G8553 04/09/2013 PRESCRIP TRANSMIT A ERX SY CPT-4: G8553 01/26/2013 ROUTINE VENIPUNCTURE CPT-4: 53959 12/23/2012 PRESCRIP TRANSMIT A ERX SY CPT-4: G8553 06/09/2012 ROCEPHIN, PER 250 MG CPT-4: J0696 02/12/2012 TRIAMCINOLONE ACET I [place] NOS CPT-4: J3301 02/12/2012 PRESCRIP TRANSMIT A ERX SY CPT-4: G8553 02/12/2012 ROCEPHIN, PER 250 MG CPT-4: J0696 02/05/2012 URINALYSIS NONAUTO W /O SCOPE CPT-4: 98824 11/14/2011 REMOVE IMPACTED EAR WAX UNI CPT-4: 75512 08/28/2011 PRESCRIP TRANSMIT A ERX SY CPT-4: G8553 08/28/2011 ROCEPHIN, PER 250 MG CPT-4: J0696 08/23/2011 TRIAMCINOLONE ACET I [place] NOS CPT-4: J3301 08/23/2011 THER/PROPH/DIAG INJ SC/IM CPT-4: 92337 08/23/2011 PRESCRIP TRANSMIT A ERX SY CPT-4: G8553 08/23/2011 OCCULT BLOOD FECES CPT- 4: 86016 06/19/2011 URINALYSIS NONAUTO W /O SCOPE CPT-4: 58858 06/19/2011 PRESCRIP TRANSMIT A ERX SY CPT-4: G8553 06/19/2011 ADMIN INFLUENZA VIRU S VAC CPT-4: G0008 06/05/2011 FLULAVAL VACC, 3 YRS & >, IM CPT-4: Q2036 06/05/2011 Vital Signs Date Vital 12/23/2018 Blood Pressure 1: 150/82 Code: 8480-6 Heart Rate 1: 89 bpm Height: SpO2: 95% Weight: 06/12/2018 Blood Pressure 1: 142/68 Code: 8480-6 BMI: 30.0 Code: 01307-1 Heart Rate 1: 91 bpm Height: 5'3" SpO2: 96% Weight: 172 lbs 05/26/2018 Blood Pressure 1: 142/72 Code: 8480-6 BMI: 30.0 Code: 48226-5 Heart Rate 1: 92 bpm Height: 5'3" SpO2: 96% Weight: 172 lbs 04/01/2018 Blood Pressure 1: 120/58 Code: 8480-6 BMI: 29.1 Code: 28915-5 Heart Rate 1: 83 bpm Height: 5'3" Respiratory Rate: 18 bpm SpO2: 95% Weight: 167 lbs 11/25/2017 Blood Pressure 1: 128/58 Code: 8480-6 BMI: 29.8 Code: 37219-0 Heart Rate 1: 83 bpm Height: 5'3" SpO2: 99% Weight: 171 lbs 09/18/2017 Blood Pressure 1: 140/72 Code: 8480-6 BMI: 30.3 Code: 28611-2 Heart Rate 1: 99 bpm Height: 5'3" SpO2: 97% Weight: 174 lbs 05/02/2017 Blood Pressure 1: 122/64 Code: 8480-6 BMI: 29.5 Code: 51283-5 Heart Rate 1: 81 bpm Height: 5'3" SpO2: 97% Weight: 169 lbs 03/29/2017 Blood Pressure 1: 134/68 Code: 8480-6 BMI: 30.0 Code: 99110-7 Heart Rate 1: 89 bpm Height: 5'3" SpO2: 98% Weight: 172 lbs 11/15/2016 Blood Pressure 1: 148/72 Code: 8480-6 BMI: 29.5 Code: 59765-7 Heart Rate 1: 102 bpm Height: 5'3" SpO2: 98% Weight: 169 lbs 11/06/2016 Blood Pressure 1: 140/78 Code: 8480-6 BMI: 29.8 Code: 19409-2 Heart Rate 1: 100 bpm Height: 5'3" SpO2: 97% Weight: 171 lbs 08/01/2016 Blood Pressure 1: 128/56 Code: 8480-6 BMI: 30.3 Code: 82546-5 Heart Rate 1: 88 bpm Height: 5'3" SpO2: 97% Weight: 174 lbs 07/02/2016 Blood Pressure 1: 126/62 Code: 8480-6 BMI: 31.0 Code: 07101-7 Heart Rate 1: 101 bpm Height: 5'3" SpO2: 97% Weight: 178 lbs 06/04/2016 Blood Pressure 1: 136/72 Code: 8480-6 BMI: 31.4 Code: 39469-7 Heart Rate 1: 103 bpm Height: 5'3" SpO2: 98% Weight: 180 lbs 03/26/2016 Blood Pressure 1: 134/74 Code: 8480-6 BMI: 30.7 Code: 86160-3 Heart Rate 1: 93 bpm Height: 5'3" SpO2: 98% Weight: 176 lbs 11/23/2015 Blood Pressure 1: 128/77 Code: 8480-6 BMI: 30.2 Code: 90330-3 Heart Rate 1: 74 bpm Height: 5'3" SpO2: 96% Weight: 173 lbs 10/14/2015 Blood Pressure 1: 122/72 Code: 8480-6 BMI: 30.3 Code: 96061-6 Heart Rate 1: 76 bpm Height: 5'3" SpO2: 97% Weight: 174 lbs 03/31/2015 Blood Pressure 1: 140/68 Code: 8480-6 BMI: 30.0 Code: 63816-3 Heart Rate 1: 93 bpm Height: 5'3" SpO2: 94% Weight: 172 lbs 08/31/2014 Blood Pressure 1: 122/74 Code: 8480-6 BMI: 31.2 Code: 48682-7 Heart Rate 1: 76 bpm Height: 5'3" Weight: 179 lbs 08/10/2014 Blood Pressure 1: 138/62 Code: 8480-6 BMI: 31.0 Code: 48550-7 Heart Rate 1: 80 bpm Height: 5'3" Weight: 178 lbs 05/06/2014 BMI: 31.2 Code: 48551-2 Height: 5'3" Weight: 179 lbs 04/14/2014 Blood Pressure 1: 136/68 Code: 8480-6 BMI: 31.4 Code: 43967-2 Heart Rate 1: 74 bpm Height: 5'3" Weight: 180 lbs 11/10/2013 Blood Pressure 1: 102/50 Code: 8480-6 BMI: 30.7 Code: 25675-3 Heart Rate 1: 76 bpm Height: 5'3" Weight: 176 lbs 07/14/2013 Blood Pressure 1: 136/80 Code: 8480-6 BMI: 30.3 Code: 71149-6 Heart Rate 1: 70 bpm Height: 5'3" Weight: 174 lbs 06/12/2013 Blood Pressure 1: 142/82 Code: 8480-6 BMI: 30.9 Code: 60583-2 Heart Rate 1: 72 bpm Height: 5'3" Weight: 177 lbs 05/20/2013 Blood Pressure 1: 132/70 Code: 8480-6 BMI: 31.2 Code: 69547-5 Heart Rate 1: 88 bpm Height: 5'3" Weight: 179 lbs 04/09/2013 Blood Pressure 1: 136/70 Code: 8480-6 BMI: 31.0 Code: 84404-5 Heart Rate 1: 100 bpm Height: 5'3" Weight: 178 lbs 01/26/2013 Blood Pressure 1: 118/56 Code: 8480-6 BMI: 30.7 Code: 24640-2 Heart Rate 1: 87 bpm Height: 5'3" Weight: 176 lbs 12/23/2012 Blood Pressure 1: 136/76 Code: 8480-6 Heart Rate 1: 104 bpm Respiratory Rate: 20 bpm Weight: 178 lbs 12/15/2012 Blood Pressure 1: 150/82 Code: 8480-6 Heart Rate 1: 100 bpm Temperature: 36.7 (C) / 98.1 (F) Weight: 178 lbs 10/22/2012 Blood Pressure 1: 138/82 Code: 8480-6 BMI: 30.2 Code: 33327-0 Heart Rate 1: 100 bpm Height: 5'3" Weight: 173 lbs 08/21/2012 Blood Pressure 1: 136/70 Code: 8480-6 BMI: 30.6 Code: 75586-3 Heart Rate 1: 98 bpm Height: 5'3" Weight: 175 lbs 8 oz 07/17/2012 Blood Pressure 1: 152/68 Code: 8480-6 BMI: 29.9 Code: 87623-4 Heart Rate 1: 92 bpm Height: 5'3" [...] 1: 122/68 Code: 8480-6 BMI: 29.5 Code: 55146-9 Heart Rate 1: 96 bpm Height: 5'3" [...] 1: 130/72 Code: 8480-6 BMI: 30.4 Code: 37881-3 Heart Rate 1: 92 bpm Height: 5'3" Respiratory Rate: 16 bpm Weight: 174 lbs 8 oz 06/19/2011 Blood Pressure 1: 122/70 Code: 8480-6 BMI: 30.2 Code: 75410-0 Heart Rate 1: 104 bpm Height: 5'3" Weight: 173 lbs 06/05/2011 Blood Pressure 1: 100/50 Code: 8480-6 BMI: 29.6 Code: 90301-1 Heart Rate 1: 96 bpm Height: 5'3" [...] adulthood 03/31/2015 None cough Location in the roat 03/31/2015 None cough Quality dry 03/31/2015 [...] recently started s eeking counseling from her chief of staff doctor. depression Pertinent Findings anxiety 08/21/2012 None depression [...] recently started s eeking counseling from her chief of staff doctor. depression Pertinent Findings anxiety 07/17/2012 None depression [...] Encounters Encounter Performer Loca tion Codes Date ([id number]) [id number] EST. P ATIENT, LEVEL III Diagnosis: Pleurodynia[ICD10: R07.81] Diagnosis: Pain in thoracic spine[ICD10: M54.6] Amy Cheung MD, [facility] CPT-4: 22065 12/23/2018 ([id number]) [id number] EST. P ATIENT, LEVEL III Diagnosis: Gastro-esophageal reflux disease without esophagitis[ICD10: K21.9] Amy Cheung MD, [facility] CPT-4: 44788 06/12/2018 ([id number]) 76650 EST. P ATIENT, LEVEL III Diagnosis: Gastro-esophageal reflux disease without esophagitis[ICD10: K21.9] Diagnosis: Cough[ICD10: R05] Riya Cheung MD, [facility] CPT-4: 84426 05/26/2018 ([id number]) 00353 EST. 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 P ATIENT, LEVEL IV Diagnosis: Type 2 diabetes mellitus with hyperglycemia[ICD10: E11.65] Diagnosis: Essential (primary) hypertension[ICD10: I10] Amy Cheung MD, C CPT-4: 07299 11/25/2017 ([id number]) 98328 EST. P ATIENT, LEVEL IV Diagnosis: Type 2 diabetes mell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[ICD10: E11.9] Diagnosis: Mixed hyperlipidemia[ICD10: E78.2] Diagnosis: Candidal stomatitis[ICD10: B37.0] Amy Cheung MD, [facility] CPT-4: 45141 09/18/2017 ([id number]) 92242 EST. P ATIENT, LEVEL IV Diagnosis: Type 2 diabetes mell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[ICD10: E11.9] Diagnosis: Mixed hyperlipidemia[ICD10: E78.2] Diagnosis: Essential (primary) hypertension[ICD10: I10] Diagnosis: Encounter for immunization[ICD10: Z23] Amy Cheung MD, [facility] CPT-4: 03684 05/02/2017 ([id number]) 10269 EST. P ATIENT, LEVEL III Diagnosis: Candidal stomatitis[ICD10: B37.0] Riya Cheung MD, [facility] CPT- 4: 28156 03/29/2017 ([id number]) 92240 EST. P ATIENT, LEVEL IV Diagnosis: Essential (primary) hypertension[ICD10: I10] Diagnosis: Type 2 diabetes mell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[ICD10: E11.9] Amy Cheung MD, [facility] CPT-4: 19272 11/15/2016 12732 EST. PATIENT, LEVEL III Diagnosis: Other malaise[ICD10: R53.81] Diagnosis: Other fatigue[ICD10: R53.83] Diagnosis: Type 2 diabetes mellitus with hyperglycemia[ICD10: E11.65] Diagnosis: Essential (primary) hypertension[ICD10: I10] Diagnosis: Weakness[ICD10: R53.1] Mariana Cheung MD, [facility] CPT-4: 11331 11/06/2016 ([id number]) 80187 EST. P ATIENT, LEVEL III Diagnosis: Type 2 diabetes mellitus with hyperglycemia[ICD10: E11.65] Amy Cheung MD, C CPT-4: 04944 08/01/2016 ([id number]) 49215 EST. P ATIENT, LEVEL III Diagnosis: Type 2 diabetes mellitus with hyperglycemia[ICD10: E11.65] Diagnosis: Gastroparesis[ICD10: K31.84] Amy Cheung MD, [facility] CPT-4: 50341 07/02/2016 ([id number]) 27160 EST. P ATIENT, LEVEL IV Diagnosis: Type 2 diabetes mellitus with hyperglycemia[ICD10: E11.65] Diagnosis: Hypothyroidism, unspecified[ICD10: E03.9] Amy Cheung MD, C CPT-4: 47379 06/04/2016 ([id number]) 21453 EST. P ATIENT, LEVEL IV Diagnosis: Type 2 diabetes mellitus with hyperglycemia[ICD10: E11.65] Diagnosis: Mixed hyperlipidemia[ICD10: E78.2] Diagnosis: Essential (primary) hypertension[ICD10: I10] Amy Cheung MD, C CPT-4: 45342 03/26/2016 ([id number]) 09297 EST. P ATIENT, LEVEL III Diagnosis: Essential (primary) hypertension[ICD10: I10] Diagnosis: Adjustment disorder with mixed anxiety and depressed mood[ICD10: F43.23] Amy Cheung MD, [facility] CPT-4: 93152 11/23/2015 ([id number]) 53532 EST. P ATIENT, LEVEL IV Diagnosis: Type 2 diabetes mellitus with hyperglycemia[ICD10: E11.65] Diagnosis: Panic disorder [episodic paroxysmal anxiety] without agoraphobia[ICD10: F41.0] Diagnosis: Adjustment disorder with mixed anxiety and depressed mood[ICD10: F43.23] Diagnosis: Essential (primary) hypertension[ICD10: I10] Amy Cheung MD, [facility] CPT-4: 68533 10/14/2015 ([id number]) 62083 EST. P ATIENT, LEVEL IV Diagnosis: DIABETES TYPE II[ICD9: 250.00] Diagnosis: GENERALIZED ANXIETY DISEASE[ICD9: 300.02] Diagnosis: ESSENTIAL HYPERTENSION[ICD9: 401.9] Diagnosis: ESOPHAGEAL REFLUX[ICD9: 530.81] Amy Cheung MD, [facility] CPT-4: 40882 03/31/2015 ([id number]) 57223 EST. P ATIENT, LEVEL IV Diagnosis: DM W/O COMPLICATION TYPE II, UNCONTROLLED[ICD9: 250.02] Diagnosis: ESSENTIAL HYPERTENSION[ICD9: 401.9] Diagnosis: DEPRESSIVE DISORDER NEC[ICD9: 311] Diagnosis: GENERALIZED ANXIETY DISEASE[ICD9: 300.02] Amy Cheung MD, C CPT-4: 33360 08/31/2014 ([id number]) 36973 EST. P ATIENT, LEVEL IV Diagnosis: ESSENTIAL HYPERTENSION[ICD9: 401.9] Diagnosis: DIABETES TYPE II[ICD9: 250.00] Diagnosis: Constipation - functional[ICD9: 564.09] Diagnosis: Abdominal pain[ICD9: 789.00] Amy Cheung MD, [facility] CPT-4: 32083 08/10/2014 ([id number]) 40043 EST. P ATIENT, LEVEL III Diagnosis: Flu vaccine need[ICD9: V04.81] Diagnosis: Neck pain[ICD9: 723.1] Diagnosis: Chronic allergic rhinitis[ICD9: 477.9] Amy Cheung MD, [facility] CPT-4: 34244 05/06/2014 ([id number]) 39627 EST. P ATIENT, LEVEL IV Diagnosis: DM W/O COMPLICATION TYPE II, UNCONTROLLED[ICD9: 250.02] Diagnosis: GENERALIZED ANXIETY DISEASE[ICD9: 300.02] Diagnosis: ESSENTIAL HYPERTENSION[ICD9: 401.9] Diagnosis: Neck pain[ICD9: 723.1] Amy Cheung MD, [facility] CPT-4: 34928 04/14/2014 ([id number]) 93246 EST. P ATIENT, LEVEL IV Diagnosis: ESSENTIAL HYPERTENSION[SNOMED: 56724921] Diagnosis: DIABETES TYPE II[SNOMED: 110249622] Diagnosis: Iliotibial band syndrome[ICD9: 728.89] Diagnosis: DEPRESSIVE DISORDER NEC[ICD9: 311] Diagnosis: GENERALIZED ANXIETY DISEASE[ICD9: 300.02] Amy Cheung MD, [facility] CPT-4: 68961 11/10/2013 ([id number]) 85354 EST. P ATIENT, LEVEL III Diagnosis: DIABETES TYPE II[SNOMED: 864070431] Amy Cheung MD, [facility] CPT- 4: 39900 07/14/2013 ([id number]) 57735 EST. P ATIENT, LEVEL IV Diagnosis: ESSENTIAL HYPERTENSION[SNOMED: 94628300] Diagnosis: DM W/O COMPLICATION TYPE II, UNCONTROLLED[SNOMED: 38377718] Amy Cheung MD, [facility] CPT-4: 31381 06/12/2013 ([id number]) 02713 EST. P ATIENT, LEVEL III Diagnosis: DIABETES TYPE II[SNOMED: 461831949] Amy Cheung MD, [facility] CPT- 4: 29293 05/20/2013 ([id number]) 01616 EST. P ATIENT, LEVEL IV Diagnosis: ESSENTIAL HYPERTENSION[SNOMED: 47752994] Diagnosis: HYPERLIPIDEMIA[ICD9: 272.4] Diagnosis: Type II diabetes mellitus, uncontrolled[SNOMED: 81372394] Amy Cheung MD, [facility] CPT-4: 21299 04/09/2013 ([id number]) 96526 EST. P ATIENT, LEVEL III Diagnosis: ESSENTIAL HYPERTENSION[SNOMED: 08263497] Diagnosis: ENCNTR LONG-RX USE NEC[ICD9: V58.69] Diagnosis: IMPACTED CERUMEN[ICD9: 380.4] Amy Cheung MD, [facility] CPT-4: 80134 01/26/2013 ([id number]) 73344 EST. P ATIENT, LEVEL IV Diagnosis: DIABETES TYPE II[SNOMED: 790577638] Diagnosis: ESSENTIAL HYPERTENSION[SNOMED: 54543317] Diagnosis: Polymyalgia[ICD9: 725] Amy Cheung MD, [facility] CPT-4: 71070 12/23/2012 ([id number]) 52831 EST. P ATIENT, LEVEL III Diagnosis: ACUTE MAXILLARY SINUSITIS[ICD9: 461.0] Diagnosis: COUGH[ICD9: 786.2] Amy Cheung MD, [facility] CPT-4: 25736 12/15/2012 ([id number]) 66007 EST. P ATIENT, LEVEL III Diagnosis: ANAL OR RECTAL PAIN[ICD9: 569.42] Diagnosis: Bruising[ICD9: 924.9] Diagnosis: Hip pain[ICD9: 719.45] Amy Cheung MD, [facility] CPT-4: 37657 10/22/2012 ([id number]) 08404 EST. P ATIENT, LEVEL IV Diagnosis: ESSENTIAL HYPERTENSION[SNOMED: 23043700] Diagnosis: DIABETES TYPE II[SNOMED: 945221119] Amy Cheung MD, [facility] CPT- 4: 67615 08/21/2012 ([id number]) 72720 EST. P ATIENT, LEVEL IV Diagnosis: DIABETES TYPE II[SNOMED: 093428559] Diagnosis: DEPRESSIVE DISORDER NEC[ICD9: 311] Amy Cheung MD, [facility] CPT- 4: 02014 07/17/2012 ([id number]) 28304 EST. P ATIENT, LEVEL III Diagnosis: ESSENTIAL HYPERTENSION[SNOMED: 07269846] Diagnosis: DEPRESSIVE DISORDER NEC[ICD9: 311] Amy Cheung MD [facility] CPT- 4: 59096 07/08/2012 47541 EST. PATIENT, LEVEL IV Diagnosis: ESSENTIAL HYPERTENSION[SNOMED: 79131389] Diagnosis: DIABETES TYPE II[SNOMED: 261050166] Amy Cheung MD [facility] CPT- 4: 36999 06/09/2012 ([id number]) 69980 EST. P ATIENT, LEVEL III Diagnosis: Acute sinusitis[ICD9: 461.9] Diagnosis: FEVER NOS[ICD9: 780.60] Amy Cheung MD [facility] CPT-4: 92254 02/12/2012 ([id number]) 51797 EST. P ATIENT, LEVEL III Diagnosis: Otalgia of both ears[ICD9: 388.70] Diagnosis: Hemorrhoids[ICD9: 455.6] Diagnosis: Rectal or anal pain[ICD9: 569.42] Amy Cheung MD [facility] CPT-4: 77688 02/05/2012 ([id number]) 34424 EST. P ATIENT, LEVEL IV Diagnosis: Dysuria[ICD9: 788.1] Diagnosis: ACUTE MAXILLARY SINUSITIS[ICD9: 461.0] Diagnosis: Allergic rhinitis[ICD9: 477.9] Amy Cheung MD [facility] CPT-4: 85346 11/14/2011 ([id number]) 70541 EST. P ATIENT, LEVEL IV Diagnosis: DIABETES TYPE II[SNOMED: 064885323] Diagnosis: Cough[ICD9: 786.2] Diagnosis: FEVER NOS[ICD9: 780.60] Amy Cheung MD, [facility] CPT-4: 13846 10/08/2011 34387 EST. PATIENT, LEVEL IV Diagnosis: OTHER CONSTIPATION[ICD9: 564.09] Diagnosis: IMPACTED CERUMEN[ICD9: 380.4] Diagnosis: Recurrent sinusitis[ICD9: 473.9] Amy Cheung MD, [facility] CPT-4: 89909 08/28/2011 67042 EST. PATIENT, LEVEL IV Diagnosis: Neck pain, acute[ICD9: 723.1] Diagnosis: Cough[ICD9: 786.2] Diagnosis: Cerumen impaction[ICD9: 380.4] Amy Cheung MD, [facility] CPT-4: 91153 08/23/2011 42153 EST. PATIENT, LEVEL IV Diagnosis: ESSENTIAL HYPERTENSION[SNOMED: 90880226] Diagnosis: HYPERLIPIDEMIA[ICD9: 272.4] Diagnosis: DIABETES TYPE II[SNOMED: 710183207] Diagnosis: DEPRESSIVE DISORDER NEC[ICD9: 311] Diagnosis: 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[ICD9: 357.7] Amy Cheung MD, [facility] CPT-4: 84253 07/24/2011 03287 EST. PATIENT, LEVEL IV Diagnosis: Abdominal pain[ICD9: 789.00] Diagnosis: Hematochezia[ICD9: 578.1] Diagnosis: Back pain[ICD9: 724.5] Amy Cheung MD, [facility] CPT-4: 13979 06/19/2011 55903 EST. 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 CPT- 4: 32094 06/05/2011 Plan of Care Planned Activity Notes C odes Status Date Visit Plan: Rib pain and thoracic s pine pain - status post fall at home - discussed with pt - need to check xrays - okay to keep using her back brace. Rx for muscle relaxer sent to patient's pharmacy. Kenalog shot given in clinic today. 12/23/2018 Patient Education: Patient Medication Summary Completed 12/23/2018 Care Plan: X-RAY EXAM THORAC SPINE 2VWS LOINC : 56583-5 Pending 12/23/2018 Visit Plan: Esophageal Reflux - the patient has been counseled against excessive intake of caffeine, spicy foods, peppermint, and cinnamon - all of which can exacerbate esophageal reflux. The patient is to take medications as prescribed and call the office if the symptoms are not improving. Advised pt to use lactaid pills 06/12/2018 Appointment: Amy Cheung WPtel: [phone] [facility] (15 min) Moderate 06/12/2018 Appointment: [phone] [facility] - Annual Wellness Visit 06/12/2018 Patient Education: Patient Medication Summary Completed 06/12/2018 Visit Plan: Esophageal Reflux - the patient has been counseled against excessive intake of caffeine, spicy foods, peppermint, and cinnamon - all of which can exacerbate esophageal reflux. The patient is to take medications as prescribed and call the office if the symptoms are not improving. Hdggq-zcmtvfmfm-vrrxyyf injection today in the office -start claritin [...] controlled. 04/01/2018 Appointment: Amy Cheung WPtel: [phone] [facility] (15 min) Moderate 04/01/2018 Patient Education: Patient Medication Summary Completed 04/01/2018 Patient Education: Patient Medication Summary Completed 03/31/2018 Appointment: Amy Cheung WPtel: [phone] [facility] (15 min) Moderate 01/15/2018 Visit Plan: Diabetes [...] at home. 11/25/2017 Appointment: [phone] ([facility] min) Moderate 11/25/2017 Patient Education: Patient [...] nystatin 09/18/2017 Appointment: [facility]ung [facility]Ptel: [phone] (15 min) Moderate 09/18/2017 Patient Education: Patient [...] shot today 05/02/2017 Appointment: Amy Cheung WPtel: [phone] [facility] ([facility] Moderate 05/02/2017 Patient Education: Patient Medication Summary Completed 05/02/2017 Appointment: Amy Cheung WPtel: [phone] [facility] (15 min) Moderate 04/15/2017 Visit Plan: Thrush-discussed natura l and expected course of this diagnosis and to alert me if symptoms do not follow expected course, or if any worse. RX sent to patient's pharmacy. Patient verbalized understanding of plan. 03/29/2017 Appointment: Riya Sheikh WPtel: [phone] [phone] [place] (30 min) Complex 03/29/2017 Patient Education: Patient Medication Summary Completed 03/29/2017 Patient Education: Obesity Completed 03/29/2017 Appointment: Amy Cheung WPtel: [facility] (15 min) Moderate 03/14/2017 Visit Plan: Diabetes Mellitus - con myriamed [...] home. 11/15/2016 Appointment: Amy Cheung WPtel: [phone] [facility] (15 min) Moderate 11/15/2016 Patient Education: Patient Medication Summary Completed 11/15/2016 Appointment: Amy Cheung WPtel: [phone] [facility] (15 min) Moderate 11/07/2016 Visit Plan: Fatigue, [...] Appointment: Mar[facility]el[phone] (30 min) Complex 11/06/2016 Patient Education: Patient Medication Summary Completed 11/06/2016 Patient Education: Patient Medication Summary Completed 09/19/2016 Patient Education: Patient Medication Summary Completed 08/22/2016 Care Plan: Comp Metabolic Pending 08/22/2016 Care Plan: %Hba1C she can have drawn anytime after 09/04/16 [facility] : [address]8627-7 Pending 08/22/2016 Visit Plan: Diabetes Mellitus - [...] to clinic. 08/01/2016 Appointment: Amy Cheung WPtel: [phone] [facility] (15 min) Moderate 08/01/2016 Patient Education: Patient Medication Summary Completed 08/01/2016 Appointment: Amy Cheung WPtel: [phone] [facility] (15 min) Moderate 07/09/2016 Visit Plan: Diabetes [...] GI motility 07/02/2016 Appointment: [facility]el[phone] [place] (15 min) Moderate 07/02/2016 Patient Education: [...] of control. 06/04/2016 Appointment: Amy Cheung [facility]Ptel: [phone] (15 min) Moderate 06/04/2016 Patient Education: Patient [...] to medications. 03/26/2016 Appointment: Amy Cheung WPtel: [phone] [place] (15 min) Moderate 03/26/2016 Patient Education: [...] Appointment: Amy Che[facility]Ptel: [phone] (15 min) Moderate 10/13/2015 Appointment: Amy Che[facility]Ptel: [phone] (15 min) Moderate 05/09/2015 Visit Plan: Diabetes [...] cancer. 03/31/2015 Appointment: Amy Cheung WPtel: [phone] [facility] (15 min) Moderate 03/31/2015 Patient Education: Patient Medication Summary Completed 03/31/2015 Patient Education: Hypertension Completed 03/31/2015 Appointment: (15 min) Moderate 02/11/2015 Appointment: Amy Cheung WPtel: [facility]6 [facility] Sick 09/29/2014 Visit Plan: Diabetes Mellitus - [...] 9 months. 08/31/2014 Appointment: Amy Cheung WPtel: [facility]0 [facility] Follow up 08/31/2014 Patient Education: Patient Medication [...] Hypertension Completed 08/10/2014 Appointment: Amy Cheung WPtel: [address] [place] [address] Follow up 05/10/2014 Visit Plan: Allergies - [...] ordered. 05/06/2014 Appointment: Amy Cheung WPtel: [address] [place], [place] [phone] Follow up 05/06/2014 Patient Education: Patient Medication Summary Completed 05/06/2014 Patient Education: .Cervicalgia Neck Pain Completed 05/06/2014 Appointment: Amy Cheung WPtel: [address] [place], [place] [phone] [place] Follow up 05/05/2014 Visit Plan: Hypertension [...] the neck. 04/14/2014 Appointment: Amy Cheung WPtel: [facility]5 [facility] Follow up 04/14/2014 Patient Education: Patient Medication [...] band exercises. 11/10/2013 Appointment: Amy Cheung [facility]Ptel: [phone] Other 11/10/2013 Patient Education: Patient Medication Summary [...] the bydureon - monitor symptoms. 07/14/2013 Appointment: AltonAmy WPtel: [address] [place] [address] Other 07/14/2013 Patient Education: Patient Medication Summary Completed 07/14/2013 Appointment: Riya Sheikh WPtel: [address] [place] [address] Follow up 07/13/2013 Visit Plan: Hypertension - [...] glucose control. 06/12/2013 Appointment: Riya Sheikh WPtel: [address] [place], [place] [id number] [place] [address] Other 06/12/2013 Patient Education: Patient Medication Summary [...] to patient. 05/20/2013 Appointment: Amy Cheung WPtel: [phone] [facility] Follow up 05/20/2013 Patient Education: Patient Medication Summary Completed 05/20/2013 Appointment: Amy Cheung WPtel: 101 [facility] Follow up 05/07/2013 Appointment: Amy Cheung WPtel: [phone] [facility] Lab Draw 04/27/2013 Patient Education: Patient Medication [...] a copy of this note to her Rn Cardiac Rehab - Dr. Kraus as he will ultimately [...] Glyburide restarted. 04/09/2013 Appointment: Amy Cheung WPtel: [facility]5 [facility] Follow up 04/09/2013 Patient Education: Patient Medication Summary Completed 04/09/2013 Patient Education: Hypertension Completed 04/09/2013 Appointment: Amy Cheung WPtel: [facility]5 [facility] Follow up 03/30/2013 Visit Plan: Hypertension - [...] today 01/26/2013 Appointment: Amy Cheung WPtel: [phone] [facility] Other 01/26/2013 Patient Education: Patient Medication Summary [...] at home. 12/23/2012 Appointment: Amy Cheung WPtel: [address] [place], [place] [phone] Follow up 12/23/2012 Patient Education: Patient Medication Summary Completed 12/23/2012 Patient Education: Hypertension Completed 12/23/2012 Visit Plan: Sinusitis - Pt has acut e infection - pain in face, maxillary region, Pt informed to use decongestant, RX given to patient, sinus rinses also recommended. Call if symptoms do not show improvement. 12/15/2012 Appointment: Amy Cheung WPtel: [facility]5 [facility] Sick 12/15/2012 Patient Education: Patient Medication Summary Completed 12/15/2012 Visit Plan: Bruising and pain post fall- with hip pain - recommended pt to have xray of hips and pelvis and lumbar spine as she is having the pain in her hips post fall. 10/22/2012 Appointment: Amy Cheung WPtel: [address] [place], [place] [phone] Other 10/22/2012 Patient Education: Patient Medication Summary Completed 10/22/2012 Appointment: Amy Cheung WPtel: [address] [place], [place] [phone] Follow up 09/30/2012 Visit Plan: Hypertension - [...] less controlled. 08/21/2012 Appointment: Amy Cheung WPtel: [facility]6 [facility] Follow up 08/21/2012 Patient Education: Patient Medication [...] that [facility] can [facility] can [facility] and change together. No change to Pat's medications today. Time based documentation -I spent over 40 minutes with the patient in discussion of the disease process, expected course, and overall prognosis for the patient's disease state. The patient/family expressed understanding. 07/17/2012 Appointment: Amy Cheung WPtel: [phone] [facility] Follow up 07/17/2012 Patient Education: Patient Medication [...] issues today. 07/08/2012 Appointment: Amy Cheung WPtel: [phone] [facility] Other 07/08/2012 Patient Education: Patient Medication Summary [...] labs checked. 06/09/2012 Appointment: Amy Cheung WPtel: [address] [place] [address] Other 06/09/2012 Patient Education: Patient Medication Summary Completed 06/09/2012 Patient Education: High Blood Pressure: Essential Hypertension Completed 06/09/2012 Visit Plan: Sinusitis - Pt has acut e infection - pain in face, maxillary region, Pt informed to use decongestant, RX given to patient, sinus rinses also recommended. Call if symptoms do not show improvement. 02/12/2012 Appointment: Amy Cheung WPtel: [facility]8 [address] Other 02/12/2012 Patient Education: Patient Medication [...] in place. 02/05/2012 Appointment: Amy Cheung WPtel: [address] [place] [address] [place] Other 02/05/2012 Patient Education: Patient Medication [...] any worse. Check your thyroid labs at [facility]-we will call you with the results. Allergies - chronic - recommended pt to use allergy medication as prescribed. Pt has been counseled as the the appropriate use of the medication. Pt to call if allergy symptoms are not controlled with the medication. Dysuria - UA negative 11/14/2011 Appointment: Alton Amy WPtel: [facility]7 [address] Other 11/14/2011 Appointment: Amy Cheung WPtel: [address] [place] [address] Other 11/14/2011 Patient Education: Patient Medication Summary [...] patient today. 10/08/2011 Appointment: Amy Cheung WPtel: [facility]2 [address] Other 10/08/2011 Patient Education: Patient Medication [...] removal process. 08/28/2011 Appointment: Amy Cheung WPtel: [facility]5 [facility] Other 08/28/2011 Patient Education: Patient Medication Summary [...] in readings. 07/24/2011 Appointment: Amy Cheung WPtel: [facility] [address] Other 07/24/2011 Patient Education: Patient Medication [...] lower back. 06/19/2011 Appointment: Amy Cheung WPtel: [facility]0 [address] Other 06/19/2011 Patient Education: Patient Medication [...] neuropathic symptoms. 06/05/2011 Appointment: Amy Cheung WPtel: [facility]3 [address] Other 06/05/2011 Patient Education: Patient Medication Summary Completed 06/05/2011 Instructions Comment . Hyperlipidemia - pt has been counseled [...] a copy of this note to her Rn Cardiac Rehab - Dr. Kraus as he will ultimately [...] have labs checked. . Diabetes Mellitus - Uncontrolled - per [...] week - samples given to patient. . Sinusitis - Pt has acute infection [...] phenergan with codeine given to patient today. increase the metform in to 1.5 tablets [...] change in blood pressure readings at home. I sent prescriptions to [facility] for the following medications: LOSARTAN 25MG [...] are starting to become less controlled. . Abdominal pain - d iscussed need [...] based on previous levels of control. . Fatigue, malaise, diaphoresis, weakness - will [...] Advised pt to use lactaid pills . Bruising and pain post fall- with [...] for neuropathic symptoms. . Diabetes Mellitus - controlled - [...] that she can have an environment [facility] can [facility] and change together. No change to Pat's medications today. Time based documentation -I spent over 40 minutes with the patient in discussion of the disease process, expected course, and overall prognosis for the patient's disease state. The patient/family expressed understanding. take 1/2 bottle of m agnesium citrate [...] to monitor - bring in readings. . Hypertension - wel l controlled - [...] readings at home. . Diabetes Mellitus - improved control - [...] had cerumen removal with warm water today Nexium 40mg daily continue zantac kenalog injection today claritin 10mg daily call if reflux is not better . Esophageal Reflux - the patient has be en counseled against excessive intake of caffeine, spicy foods, peppermint, and cinnamon - all of which can exacerbate esophageal reflux. The patient is to take medications as prescribed and call the office if the symptoms are not improving. Pruvy-cxrbdsjrz-ebuizmm injection today in the office -start claritin 10mg daily . Hypertension - wel l controlled - [...] she reports that she feels stable. . Sinusitis - Pt has acute infection [...] week. Cough - use prn cough medication. decrease claritin to 1/2 a tablet twice daily. . Diabetes Mellitus - controlled - per r ent FSBS reports. I have recommended for the [...] medications. prevnar and flu shot today . Constipation - unc ontrolled - I [...] any worse. Check your thyroid labs at [facility]-we will call you with the results. [...] any worse. Check your thyroid labs at [facility]-we will call you with the results. [...]
--- OUTSIDE RECORDS SUMMARY | 2019-08-12 22:58 | XMS REPORT | CCD ---
Author Author Veronica Cheung Organization [facility] Address [address] [place] [address] Phone Care Team Providers Care Postal Supervisor Name Role Phone PP Unavailable CCM Unavailable Summary Purpose Interface Exchange Insurance Providers Payer name Policy type / Coverage type Covered democrat ID Effective Begin Date Effective End Date WPS Medicare Part B Medicare Part B [id number] Unknown GEHA Medicare Part B [id number] Unknown Family history Father Diagnosis Age At [...] Retir ed 06/17/2011 Allergies, Adverse Reactions, Alerts Allergies, Adverse Reactions, Alerts data not found Past Medical History Illness Codes Condition Status Onset Date Resolved Date Essential (primary) hypertension ICD-9: 401.1 ICD-10: I10 Active 11/15/2016 11/06/2016 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 ICD-9: 250.00 ICD-10: E11.9 Active 11/15/2016 Unknown Hypothyroidism, unsp ecified ICD-9: 244.9 ICD-10: E03.9 Active 06/03/2016 Unknown Other fatigue ICD-9: 780.79 ICD-10: R53.83 Active 11/06/2016 Unknown Other malaise ICD-9: 780.79 ICD-10: R53.81 Active 11/06/2016 Unknown Type 2 diabetes [place] with hyperglycemia ICD-9: 250.02 ICD-10: E11.65 Active 04/14/2014 Unknown Weakness ICD-9: 780.79 ICD-10: R53.1 Active 11/06/2016 Unknown Essential (primary) hypertension ICD-9: 401.9 ICD-10: I10 Active 04/14/2014 Unknown Mixed hyperlipidemia ICD-9: 272.4 ICD-10: E78.2 Active 09/19/2016 Unknown Gastroparesis ICD-9: 536.3 ICD-10: K31.84 Active [...] hypertension ICD-9: 401.1 ICD-10: I10 11/15/2016 Active 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 ICD-9: 250.00 ICD-10: E11.9 11/15/2016 Active Hypothyroidism, unsp ecified ICD-9: 244.9 ICD-10: E03.9 06/03/2016 Active Other fatigue ICD-9: 780.79 ICD-10: R53.83 11/06/2016 Active Other malaise ICD-9: 780.79 ICD-10: R53.81 11/06/2016 Active Type 2 diabetes quinten [place] with hyperglycemia ICD-9: 250.02 ICD-10: E11.65 04/14/2014 Active Weakness ICD-9: 780.79 ICD-10: R53.1 11/06/2016 Active Essential (primary) hypertension ICD-9: 401.9 ICD-10: I10 04/14/2014 Active Mixed hyperlipidemia ICD-9: 272.4 ICD-10: E78.2 09/19/2016 Active Gastroparesis ICD-9: 536.3 ICD-10: K31.84 07/01/2016 [...] Instruc tions Start Date Stop Date Sta s Fill Instructions Trulicity 1.5 mg/0.5 mL subcutaneous pen injector RxNorm: 6838664 INJECT 0.5ML SUBCUTANEOUSLY EVERY WEEK 02/28/2017 01/29/2018 Active levothyroxine 25 mcg tablet RxNorm: 464558 1 Tablet(s) PO daily 11/19/2016 05/17/2017 Active levothyroxine 25 mcg tablet RxNorm: 451099 1 Tablet(s) PO daily 11/19/2016 11/18/2016 Inactive Zithromax Z-Ankit 250 mg tablet RxNorm: 781171 1 Tablet(s) PO UD 11/07/2016 No Stop Date Active Claritin 10 mg tablet RxNorm: 333299 1 Tablet(s) PO daily 11/07/2016 11/06/2016 Inactive Claritin 10 mg tablet RxNorm: 009434 1 Tablet(s) PO daily 11/07/2016 12/06/2016 Inactive oxazepam 10 mg capsule RxNorm: 294800 1 Capsule(s) PO TID as needed anxiety 11/01/2016 12/30/2016 In active Nexium 40 mg capsule ,delayed release RxNorm: 495479 1 Capsule(s) PO BID 10/25/2016 10/19/2017 Ac tive Claritin-D 12 Hour 5 mg-120 mg tablet,extended release RxNorm: 6136945 Tablet(s) TAKE ONE (1) TABLET BY MOUTH TWICE DAILY 10/25/2016 12/23/2016 Inactive mesalamine 800 mg ta blet,delayed release RxNorm: 231044 1 Tablet(s) PO BID 09/18/2016 06/14/2017 Ac tive mesalamine 800 mg ta blet,delayed release RxNorm: 488200 1 Tablet(s) PO BID 09/18/2016 09/17/2016 In active Effexor XR 75 mg cap alma,extended release RxNorm: 184608 1 Capsule(s) PO daily 08/30/2016 08/24/2017 Ac tive metformin 500 mg tablet RxNorm: 411720 1 Tablet(s) PO BID 08/17/2016 08/11/2017 Active oxazepam 10 mg capsule RxNorm: 120090 1 Capsule(s) PO TID as needed anxiety 08/17/2016 10/15/2016 In active Claritin-D 12 Hour 5 mg-120 mg tablet,extended release RxNorm: 4199074 TAKE ONE (1) TABLET BY MOUTH TWICE DAILY... 08/16/2016 10/24/2016 Inactive furosemide 40 mg tablet RxNorm: 138842 1 Tablet(s) daily TAKE 1 TABLET DAILY 08/14/2016 08/08/2017 Ac tive pilocarpine 5 mg tablet RxNorm: 9209594 4 Tablet(s) PO daily TAKE 4 TABLETS YARI Y 08/14/2016 08/08/2017 Ac tive Effexor XR 75 mg cap alma,extended release RxNorm: 234185 1 Capsule(s) PO daily 08/14/2016 08/29/2016 In active metoclopramide 5 mg tablet RxNorm: 842043 1/2 to 1 Tablet(s) PO TID for nause and GI dysmotility 07/02/2016 11/14/2016 Inactive Effexor XR 75 mg cap alma,extended release RxNorm: 622353 1 Capsule(s) PO daily 07/02/2016 08/13/2016 In active metformin 500 mg tablet RxNorm: 655499 1/2 TABLET(S) PO BID X2 WEEKS THEN INCRE ASE TO 1 TABLET PO BID THEREAFTER 06/26/2016 08/16/2016 Inactive 30 day supply Claritin-D 12 Hour 5 mg-120 mg tablet,extended release RxNorm: 9076146 1 Tablet(s) PO BID 06/18/2016 08/15/2016 Inactive montelukast 10 mg ta blet RxNorm: 791651 1 Tablet(s) PO daily 06/13/2016 06/07/2017 Active metformin 500 mg tablet RxNorm: 008525 1/2 Tablet(s) PO BID x2 weeks then incre ase to 1 Tablet PO BID thereafter 06/07/2016 06/06/2016 Inactive 30 day supply metformin 500 mg tablet RxNorm: 320837 1/2 Tablet(s) PO BID x2 weeks then incre ase to 1 Tablet PO BID thereafter 06/07/2016 06/25/2016 Inactive 30 day supply Diflucan 150 mg tablet RxNorm: 246823 1 Tablet(s) PO daily 03/27/2016 04/02/2016 Inactive nystatin 100,000 uni t/mL oral suspension RxNorm: 290025 5 Milliliter(s) PO QI D 03/27/2016 04/05/2016 In active nystatin 100,000 uni t/mL oral suspension RxNorm: 450636 5 Milliliter(s) PO QI D 03/27/2016 03/26/2016 In active Diflucan 150 mg tablet RxNorm: 733126 1 Tablet(s) PO daily 03/27/2016 03/26/2016 Inactive Effexor XR 75 mg cap alma,extended release RxNorm: 532933 1 Capsule(s) PO daily 03/26/2016 07/01/2016 In active this replaces the 150mg dose - we are we aning down her dose Trulicity 1.5 mg/0.5 mL subcutaneous pen injector RxNorm: 4442087 0.5 Milliliter(s) SQ QW 03/26/2016 02/27/2017 Inactive Trulicity 0.75 mg/0. 5 mL subcutaneous pen injector RxNorm: 0770856 1 injection SQ QW 03/13/2016 06/03/2016 Inactive Trulicity 0.75 mg/0. 5 mL subcutaneous pen injector RxNorm: 4831126 1/2 Milliliter(s) SQ QW 03/13/2016 03/12/2016 Inactive glyburide 2.5 mg tablet RxNorm: 570539 1/2 Tablet(s) PO BID 03/13/2016 03/25/2016 Inactive glyburide 2.5 mg tablet RxNorm: 100669 1/2 Tablet(s) PO BID 03/13/2016 03/12/2016 Inactive Claritin-D 12 Hour 5 mg-120 mg tablet,extended release RxNorm: 3135953 1 Tablet(s) PO BID 02/03/2016 10/24/2016 Inactive Synthroid 25 mcg tablet RxNorm: 687944 1 Tablet(s) PO daily 01/23/2016 11/18/2016 Inactive Synthroid 25 mcg tablet RxNorm: 278347 1 Tablet(s) PO daily 01/23/2016 01/22/2016 Inactive Claritin-D 12 Hour 5 mg-120 mg tablet,extended release RxNorm: 7131330 1 Tablet(s) PO BID 12/05/2015 05/31/2016 Inactive Effexor XR 150 mg ca psule,extended release RxNorm: 648245 TAKE 1 CAPSULE DAILY 12/05/2015 03/25/2016 In active Bydureon 2 mg/0.65 m L subcutaneous pen injector RxNorm: 2349980 2 Milligram(s) SQ QW 10/14/2015 03/12/2016 Inactive oxazepam 10 mg capsule RxNorm: 455496 1 Capsule(s) PO TID PRN as needed anxiet y 10/14/2015 04/10/2016 In active Nexium 40 mg capsule ,delayed release RxNorm: 225662 1 Capsule(s) BID TAKE 1 CAPSULE DAILY 10/14/2015 10/07/2016 Inactive this is a new RX - fill the twice daily dose instead of once daily dose Effexor XR 150 mg ca psule,extended release RxNorm: 962013 1 Capsule(s) PO daily TAKE 1 CAPSULE DAILY 10/03/2015 03/25/2016 Inactive pilocarpine 5 mg tablet RxNorm: 5477360 4 Tablet(s) PO daily TAKE 4 TABLETS YARI Y 08/09/2015 02/04/2016 In active pilocarpine 5 mg tablet RxNorm: 1940611 4 Tablet(s) PO daily TAKE 4 TABLETS YARI Y 07/26/2015 08/08/2015 In active Claritin-D 12 Hour 5 mg-120 mg tablet,extended release RxNorm: 8560738 1 Tablet(s) PO BID 05/02/2015 10/24/2016 Inactive furosemide 40 mg tablet RxNorm: 146880 1 Tablet(s) daily TAKE 1 TABLET DAILY 03/31/2015 03/24/2016 In active Nexium 40 mg capsule ,delayed release RxNorm: 517823 1 Capsule(s) BID TAKE 1 CAPSULE DAILY 03/31/2015 10/13/2015 Inactive this is a new RX - fill the twice daily dose instead of once daily dose Nexium 40 mg capsule ,delayed release RxNorm: 939757 1 Capsule(s) daily TA KE 1 CAPSULE DAILY 03/31/2015 03/30/2015 Inactive montelukast 10 mg ta blet RxNorm: 817957 1 Tablet(s) PO daily 03/31/2015 03/24/2016 Inactive Synthroid 25 mcg tablet RxNorm: 079721 1 Tablet(s) PO daily 01/17/2015 01/11/2016 Inactive Synthroid 25 mcg tablet RxNorm: 988879 1 Tablet(s) PO daily 01/03/2015 01/16/2015 Inactive Claritin-D 12 Hour 5 mg-120 mg tablet,extended release RxNorm: 2255452 1 Tablet(s) PO BID 12/29/2014 05/01/2015 Inactive Synthroid 25 mcg tablet RxNorm: 320744 1 Tablet(s) PO daily 12/20/2014 01/02/2015 Inactive Synthroid 25 mcg tablet RxNorm: 222309 1 Tablet(s) PO daily 12/07/2014 12/19/2014 Inactive Effexor XR 150 mg ca psule,extended release RxNorm: 953062 1 Capsule(s) PO daily TAKE 1 CAPSULE DAILY 11/30/2014 10/02/2015 Inactive Nexium 40 mg capsule ,delayed release RxNorm: 193029 Capsule(s) TAKE 1 CAP ALMA DAILY 11/30/2014 03/30/2015 In active fenofibric acid (cho line) 135 mg capsule,delayed release RxNorm: 134978 1 Capsule(s) PO daily 08/31/2014 08/25/2015 Inactive Bydureon 2 mg subcut aneous extended release suspension RxNorm: 8789399 1 injection SQ QW 07/21/2014 07/15/2015 Inactive fluticasone 50 mcg/a ctuation nasal spray,suspension RxNorm: 149506 USE ONE SPRAY IN EACH NOSTRIL TWICE A DAY 07/06/2014 No Stop Date Active Lipitor 10 mg tablet RxNorm: 613589 TAKE 1 TABLET AT BEDTIME 06/15/2014 10/13/2015 Inactive furosemide 40 mg tablet RxNorm: 980218 TAKE 1 TABLET DAILY 06/15/2014 03/30/2015 Inactive oxazepam 10 mg capsule RxNorm: 774503 1 Capsule(s) PO TID PRN as needed anxiet y 06/11/2014 12/07/2014 In active montelukast 10 mg ta blet RxNorm: 317773 1 Tablet(s) PO daily 05/25/2014 03/30/2015 Inactive oxazepam 10 mg capsule RxNorm: 538238 1 Capsule(s) PO TID PRN as needed anxiet y 05/06/2014 06/10/2014 In active montelukast 10 mg ta blet RxNorm: 153009 1 Tablet(s) PO daily 05/04/2014 05/24/2014 Inactive Nexium 40 mg capsule ,delayed release RxNorm: 480667 TAKE 1 CAPSULE DAILY 03/25/2014 11/29/2014 In active Nexium 40 mg capsule ,delayed release RxNorm: 755450 1 Capsule(s) PO daily TAKE 1 CAPSULE DAILY 03/02/2014 03/24/2014 Inactive oxazepam 10 mg capsule RxNorm: 147153 1 Capsule(s) PO TID PRN as needed 02/24/2014 04/24/2014 In active pilocarpine 5 mg tablet RxNorm: 8289527 TAKE 4 TABLETS DAILY 02/01/2014 07/25/2015 Inactive Claritin-D 12 Hour 5 mg-120 mg tablet,extended release RxNorm: 2618808 1 Tablet(s) PO BID 12/24/2013 10/24/2016 Inactive Effexor XR 150 mg ca psule,extended release RxNorm: 884695 1 Capsule(s) PO daily TAKE 1 CAPSULE DAILY 12/24/2013 11/29/2014 Inactive Klor-Con 10 mEq tabl et,extended release RxNorm: 616215 1 Tablet(s) PO daily 12/24/2013 10/13/2015 In active Bydureon 2 mg subcut aneous extended release suspension RxNorm: 7201205 1 injection SQ QW 12/07/2013 07/20/2014 Inactive Synthroid 25 mcg tablet RxNorm: 189075 1 Tablet(s) PO daily 12/02/2013 11/26/2014 Inactive Klor-Con 10 mEq tabl et,extended release RxNorm: 644003 1 Tablet(s) PO daily take 2 daily x 1 week then one daily thereafter 12/02/2013 12/23/2013 Inactive oxazepam 10 mg capsule RxNorm: 004614 1 Capsule(s) PO TID PRN 11/10/2013 01/08/2014 Inactive omeprazole 20 mg cap alma,delayed release RxNorm: 002156 1 Capsule(s) PO daily 11/10/2013 04/13/2014 In active Synthroid 50 mcg tablet RxNorm: 628660 Tablet(s) PO TAKE 1 TABLET DAILY 09/21/2013 12/01/2013 In active furosemide 40 mg tablet RxNorm: 236472 Tablet(s) PO TAKE 1 TABLET DAILY 09/21/2013 06/14/2014 In active Bydureon 2 mg subcut aneous extended release suspension RxNorm: 3331436 1 injection SQ QW 07/22/2013 12/06/2013 Inactive Bydureon 2 mg subcut aneous extended release suspension RxNorm: 9397009 1 injection SQ QW 07/14/2013 07/21/2013 Inactive Nexium 40 mg capsule ,delayed release RxNorm: 315767 Capsule(s) PO TAKE 1 CAPSULE DAILY 06/18/2013 11/09/2013 Inactive fluticasone 50 mcg/a ctuation nasal spray,suspension RxNorm: 821378 1 [place] NASAL BID 06/18/2013 07/05/2014 Inactive Lipitor 10 mg tablet RxNorm: 041223 Tablet(s) PO every other day 1 tablet qo d 06/18/2013 06/12/2014 In active losartan 25 mg tablet RxNorm: 991396 1 Tablet(s) PO daily 1 daily for blood p ressure 06/18/2013 10/15/2013 Inactive Toprol XL 25 mg tabl et,extended release RxNorm: 549609 1 Tablet(s) PO daily 06/18/2013 06/12/2014 In active Toprol XL 25 mg tabl et,extended release RxNorm: 078214 1 Tablet(s) PO daily 06/12/2013 06/17/2013 In active losartan 25 mg tablet RxNorm: 810516 1 Tablet(s) PO daily 1 daily for blood p ressure 06/12/2013 06/17/2013 Inactive Lipitor 10 mg tablet RxNorm: 287265 Tablet(s) PO every other day 1 tablet qo d 06/12/2013 06/17/2013 In active Effexor XR 150 mg ca psule,extended release RxNorm: 772934 1 Capsule(s) PO daily TAKE 1 CAPSULE DAILY 05/27/2013 12/23/2013 Inactive Bydureon 2 mg subcut aneous extended release suspension RxNorm: 0760477 1 injection SQ QW 05/20/2013 07/13/2013 Inactive Lipitor 10 mg tablet RxNorm: 173520 Tablet(s) PO every other day 1 tablet qo d 05/20/2013 06/11/2013 In active Pen Needle 32 x 5/32" RxNorm: Miscellaneous use with byetta pen 05/07/2013 09/03/2013 Inactive Effexor XR 150 mg ca psule,extended release RxNorm: 316048 1 Capsule(s) PO daily TAKE 1 CAPSULE DAILY 05/07/2013 05/26/2013 Inactive Pen Needle 32 x 5/32" RxNorm: Miscellaneous use with [place]etta pen 05/06/2013 05/06/2013 Inactive Pen Needle 32 x 5/32" RxNorm: Miscellaneous use with byetta pen 05/06/2013 05/05/2013 Inactive Byetta 5 mcg/0.02 mL per dose Sub-Q Pen Injector RxNorm: 529421 1 Unit Dose SQ BID 04/29/2013 05/19/2013 In active metformin ER 500 mg tablet,extended release 24 hr RxNorm: 786753 1 Tablet(s) PO BID 04/28/2013 06/19/2013 In active Byetta 5 mcg/0.02 mL per dose Sub-Q Pen Injector RxNorm: 867681 1 Unit Dose SQ BID 04/28/2013 04/27/2013 In active [place]etta 5 mcg/0.02 mL per dose Sub-Q Pen Injector RxNorm: 177676 1 Unit Dose SQ BID 04/28/2013 04/28/2013 In active Influenza Virus Vacc ine 0.5 mL RxNorm: IM 04/27/2013 04/27/2013 Inactive glyburide 2.5 mg tablet RxNorm: 225914 1 Tablet(s) PO BID 04/27/2013 04/27/2013 Inactive glyburide 2.5 mg tablet RxNorm: 907200 1/2 Tablet(s) PO daily 04/13/2013 04/26/2013 Inactive glyburide 2.5 mg tablet RxNorm: 523722 1 Tablet(s) PO daily 04/09/2013 04/12/2013 Inactive metformin ER 500 mg tablet,extended release 24 hr RxNorm: 582673 2 Tablet(s) PO BID 04/09/2013 04/27/2013 In active Lipitor 10 mg tablet RxNorm: 628473 Tablet(s) PO TAKE 1 TABLET AT BEDTIME 03/17/2013 05/19/2013 In active losartan 25 mg tablet RxNorm: 333935 1 Tablet(s) PO daily 02/12/2013 06/11/2013 Inactive montelukast 10 mg ta blet RxNorm: 843467 1 Tablet(s) PO daily 02/09/2013 02/08/2013 Inactive montelukast 10 mg ta blet RxNorm: 699633 1 Tablet(s) PO daily 02/09/2013 02/03/2014 Inactive losartan 25 mg tablet RxNorm: 057922 1 Tablet(s) PO daily 02/09/2013 02/11/2013 Inactive losartan 25 mg tablet RxNorm: 531245 1 Tablet(s) PO daily 01/26/2013 02/08/2013 Inactive Effexor XR 150 mg ca psule,extended release RxNorm: 222201 Capsule(s) PO TAKE 1 CAPSULE DAILY 12/24/2012 05/06/2013 Inactive metformin ER 500 mg tablet,extended release 24 hr RxNorm: 373158 Tablet(s) PO TAKE 2 TABLETS TWICE A DAY 12/24/2012 04/08/2013 Inactive pilocarpine 5 mg tablet RxNorm: 2965015 Tablet(s) PO TAKE 4 TABLETS DAILY 12/24/2012 01/31/2014 In active levofloxacin 500 mg tablet RxNorm: 304218 1 Tablet(s) PO daily 12/15/2012 12/19/2012 Inactive Nexium 40 mg capsule ,delayed release RxNorm: 703195 Capsule(s) PO daily T MILO 1 CAPSULE DAILY 11/03/2012 06/17/2013 Inactive Claritin-D 12 Hour 5 mg-120 mg tablet,extended release RxNorm: 9864247 1 Tablet(s) PO BID 10/29/2012 10/23/2013 Inactive TAKE 1 TABLET BY MOUTH TWICE DAILY fluticasone 50 mcg/a ctuation nasal spray,suspension RxNorm: 4153325 1 [place] NASAL BID 10/08/2012 06/17/2013 Inactive Claritin-D 12 Hour 5 mg-120 mg tablet,extended release RxNorm: 0937551 1 Tablet(s) PO BID 09/09/2012 2012 Inactive TAKE 1 TABLET BY MOUTH TWICE DAILY montelukast 10 mg ta blet RxNorm: 429733 1 Tablet(s) PO daily 08/20/2012 02/08/2013 Inactive Synthroid 50 mcg tablet RxNorm: 701223 Tablet(s) PO TAKE 1 TABLET DAILY 08/18/2012 09/20/2013 In active Nexium 40 mg capsule ,delayed release RxNorm: 380046 Capsule(s) PO TAKE 1 CAPSULE DAILY 08/18/2012 11/02/2012 Inactive furosemide 40 mg tablet RxNorm: 788069 Tablet(s) PO TAKE 1 TABLET DAILY 08/18/2012 09/20/2013 In active Klor-Con 10 mEq tabl et,extended release RxNorm: 368634 Tablet(s) PO TAKE 1 T ABLET DAILY 08/18/2012 12/01/2013 Inactive Xanax 0.5 mg tablet RxNorm: 642816 1 Tablet(s) PO Q6 PRN 07/17/2012 10/13/2015 Inactive Zithromax 250 mg tablet RxNorm: 686754 Tablet(s) PO 07/14/2012 11/10/2013 Inactive disp one z ankit fluticasone 50 mcg/a ctuation Nasal [place], Susp RxNorm: 1259651 1 [place] NASAL BID 06/27/2012 10/07/2012 In active Anusol-HC 25 mg Supp ository RxNorm: 3025532 1 Suppository RTL QD AY PRN 06/09/2012 01/04/2013 In active daily x 3 days then prnno longer than 10 days in row use Claritin-D 12 Hour 5 mg-120 mg tablet,extended release RxNorm: 2855442 1 Tablet(s) PO BID 05/22/2012 05/22/2012 Inactive TAKE 1 TABLET BY MOUTH TWICE DAILY Claritin-D 12 Hour 5 mg-120 mg tablet,extended release RxNorm: 9820996 Tablet(s) PO 05/12/2012 05/21/2012 In active TAKE 1 TABLET BY MOUTH TWICE DAILY fluticasone 50 mcg/a ctuation Nasal [place], Susp RxNorm: 5458161 1 [place] NASAL BID 05/06/2012 06/26/2012 In active Rocephin 500 mg Solu tion for Injection RxNorm: 914896 Inj 02/1102/12/2012 Inactive metronidazole 500 mg Tab RxNorm: 525782 1 Tablet(s) PO TID 02/12/2012 02/18/2012 Inactive Kenalog 40 mg/mL [place] p for Injection RxNorm: 3753037 Milliliter(s) Inj 02/12/2012 02/12/2012 In active fluticasone 50 mcg/a ctuation Nasal [place], Susp RxNorm: 5983234 1 [place] NASAL BID 02/12/2012 05/05/2012 In active cefdinir 300 mg Cap RxNorm: 640252 1 Capsule(s) PO BID 02/12/2012 02/21/2012 Inactive Effexor XR 150 mg ca psule,extended release RxNorm: 722569 1 Capsule(s) PO daily 12/17/2011 12/10/2012 In active metformin ER 500 mg tablet,extended release 24 hr RxNorm: 620072 2 Tablet(s) PO BID 12/17/2011 05/14/2012 In active pilocarpine 5 mg tablet RxNorm: 3560604 4 Tablet(s) PO daily 12/17/2011 03/15/2012 Inactive Singulair 10 mg Tab RxNorm: 989684 1 Tablet(s) PO daily 11/27/2011 08/19/2012 Inactive Nexium 40 mg capsule ,delayed release RxNorm: 605654 1 Capsule(s) PO daily 11/26/2011 03/24/2012 In active Claritin-D 12 Hour 5 mg-120 mg tablet,extended release RxNorm: 2876563 1 Tablet(s) PO BID 11/14/2011 05/11/2012 Inactive Claritin-D 12 Hour 5 mg-120 mg Tab RxNorm: 3755497 1 Tablet(s) PO BID 10/31/2011 11/13/2011 In active Claritin-D 12 Hour 5 mg-120 mg Tab RxNorm: 4796010 1 Tablet(s) PO BID 10/29/2011 2011 In active Claritin-D 12 Hour 5 mg-120 mg Tab RxNorm: 3530457 1 Tablet(s) PO BID 10/29/2011 10/30/2011 In active Claritin-D 24 Hour 1 0 mg-240 mg Tab RxNorm: 7758031 1 Tablet(s) PO daily 10/23/2011 2011 In active levofloxacin 500 mg Tab RxNorm: 477655 1 Tablet(s) PO daily 08/28/2011 09/03/2011 Inactive Nasonex 50 mcg/actua tion [place] RxNorm: 839233 1 [place] NASAL BID 08/28/2011 11/25/2011 Inactive promethazine 25 mg/m L Injection RxNorm: 282416 1 Milliliter(s) Inj 08/23/2011 07/14/2013 Inactive glyburide 2.5 mg tablet RxNorm: 310161 1 Tablet(s) PO daily 08/23/2011 04/08/2013 Inactive Rocephin 500 mg Solu tion for Injection RxNorm: 200336 1 Milliliter(s) Inj 08/23/2011 08/28/2011 In active Klor-Con 10 10 mEq t ablet,extended release RxNorm: 082399 1 Tablet(s) PO daily 08/06/2011 07/30/2012 In active Nexium 40 mg Capsule , delayed release RxNorm: 312638 1 Capsule(s) PO daily 08/06/2011 11/25/2011 In active furosemide 40 mg tablet RxNorm: 464122 1 Tablet(s) PO daily 08/06/2011 07/30/2012 Inactive Cymbalta 30 mg Cap RxNorm: 199560 1 Capsule(s) PO daily 07/26/2011 08/28/2011 Inactive Synthroid 50 mcg tablet RxNorm: 763175 Tablet(s) PO 06/21/2011 08/17/2012 Inactive TAKE 1 TABLET DAILY Neurontin 100 mg Cap RxNorm: 370970 2 Capsule(s) PO TID 06/19/2011 08/28/2011 Inactive ciprofloxacin 500 mg Tab RxNorm: 782233 1 Tablet(s) PO BID 06/19/2011 08/28/2011 Inactive Neurontin 100 mg Cap RxNorm: 141370 1 Capsule(s) PO QID 06/05/2011 06/18/2011 Inactive oxazepam 10 mg Cap RxNorm: 113688 1 Capsule(s) PO Q6 PRN 06/05/2011 10/02/2011 Inactive Influenza Virus Vacc ine 0.5 mL RxNorm: IM 06/05/2011 06/05/2011 Inactive EnteraGam 5 gram ora l powder packet RxNorm: 1 PO daily No S tart Date Active hydrocodone-acetamin ophen 5 mg-500 mg Tab RxNorm: 610117 1 Tablet(s) PO Q6 PRN No Start Date Active Centrum Ultra Women' s 18 mg-400 mcg Tab RxNorm: 1 Tablet(s) PO daily No Start Date Active Fish Oil 1,000 mg Cap RxNorm: 2 Capsule(s) PO BID No Start Date Active Zenpep 40,000-136,00 0-218,000 unit capsule,delayed release RxNorm: 5115623 1 Capsule(s) PO QID No Start Date Active Synthroid 25 mcg tablet RxNorm: 998534 1 Tablet(s) PO daily No Start Date Active mesalamine 4 gram/60 mL enema RxNorm: 184386 1 Milliliter(s) RTL d aily No Start Date Active Linzess 290 mcg capsule RxNorm: 4660715 1 Capsule(s) PO daily No Start Date Active aspirin 81 mg Cap, D elayed Release RxNorm: 647681 1 Capsule(s) PO daily No Start Date Active Vitamin B-12 1,000 m cg Tab RxNorm: 045761 2 Tablet(s) PO daily No Start Date Active Vitamin C With Darlyn Hips 1,000 mg Tab RxNorm: 517474 1 Tablet(s) PO daily No Start Date Active Lipitor 10 mg Tab RxNorm: 389341 1 Tablet(s) PO HS No Start Date 04/10/2011 Inactive Lipitor 20 mg Tab RxNorm: 774539 1 Tablet(s) PO HS No Start Date 08/28/2011 Inactive Zithromax 250 mg tablet RxNorm: 791808 Tablet(s) PO No Start Date 07/13/2012 Inactive disp one z ankit Effexor XR 150 mg 24 hr Cap RxNorm: 927969 1 Capsule(s) PO daily No Start Date 12/16/2011 Inactive Bydureon 2 mg/0.65 m L subcutaneous pen injector RxNorm: 9127383 Milliliter(s) SQ QW No Start Date 10/13/2015 Inactive furosemide 40 mg Tab RxNorm: 706241 1 Tablet(s) PO daily No Start Date 08/05/2011 Inactive Synthroid 25 mcg tablet RxNorm: 532181 1 Tablet(s) PO daily No Start Date 12/01/2013 Inactive Januvia 50 mg tablet RxNorm: 227927 1 Tablet(s) PO daily samples No Start Date 04/27/2013 Inactive Lipitor 10 mg tablet RxNorm: 307403 1 Tablet(s) PO daily No Start Date 03/16/2013 Inactive Crestor 10 mg tablet RxNorm: 757463 1 Tablet(s) PO QHS No Start Date 03/25/2016 Inactive Asacol HD 800 mg Tab RxNorm: 645181 2 Tablet(s) PO daily No Start Date 10/13/2015 Inactive pilocarpine 5 mg Tab RxNorm: 3930824 4 Tablet(s) PO daily No Start Date 12/16/2011 Inactive glyburide 2.5 mg Tab RxNorm: 587451 1 Tablet(s) PO BID No Start Date 08/22/2011 Inactive Claritin-D 24 Hour 1 0 mg-240 mg Tab RxNorm: 0576119 1 Tablet(s) PO daily No Start Date 10/22/2011 Inactive Vitamin D 1,000 unit Tab RxNorm: 700803 1 Tablet(s) PO daily No Start Date 10/13/2015 Inactive Tricor 145 mg Tab RxNorm: 073397 1 Tablet(s) PO daily No Start Date 10/14/2015 Inactive Zithromax Z-Ankit 250 mg tablet RxNorm: 852774 1 Tablet(s) PO UD No Start Date 11/06/2016 Inactive Claritin-D 12 Hour 5 mg-120 mg tablet,extended release RxNorm: 0095399 1 Tablet(s) PO BID No Start Date 12/23/2013 Inactive Singulair 10 mg Tab RxNorm: 476775 1 Tablet(s) PO daily No Start Date 11/26/2011 Inactive Calcium 600 + D(3) 6 00 mg (1,500)-200 unit Tab RxNorm: 374328 1 Tablet(s) PO daily No Start Date 10/13/2015 Inactive Lialda 1.2 gram tabl et,delayed release RxNorm: 997092 2 Tablet(s) PO daily No Start Date 09/17/2016 Inactive Effexor XR 150 mg 24 hr Cap RxNorm: 734631 1 Capsule(s) PO daily No Start Date 08/28/2011 Inactive aspirin 325 mg Tab RxNorm: 894851 1 Tablet(s) PO daily No Start Date 08/28/2011 Inactive Toprol XL 25 mg tabl et,extended release RxNorm: 300672 1 Tablet(s) PO daily No Start Date 06/11/2013 Inactive lisinopril 10 mg tablet RxNorm: 487190 1 Tablet(s) PO daily No Start Date 01/25/2013 Inactive Cymbalta 60 mg Cap RxNorm: 635378 1 Capsule(s) PO daily No Start Date 08/28/2011 Inactive Nexium 40 mg Cap RxNorm: 312911 1 Capsule(s) PO daily No Start Date 08/05/2011 Inactive dicyclomine 10 mg Cap RxNorm: 021333 1 Capsule(s) PO daily No Start Date 07/13/2013 Inactive Synthroid 50 mcg Tab RxNorm: 960952 1 Tablet(s) PO daily No Start Date 06/20/2011 Inactive metformin ER 500 mg 24 hr Tab RxNorm: 488367 2 Tablet(s) PO BID No Start Date 12/16/2011 Inactive Anusol-HC 25 mg Supp ository RxNorm: 6684088 1 Suppository RTL No Start Date 06/08/2012 Inactive daily x 3 days then prnno longer than 10 days in row use Medication Administered Medication Codes Instruc tions Start Date Status Influenza Virus Vaccine 0.5 mL RxNorm: 04/27/2013 No longer Active Rocephin 500 mg Solution for Injection RxNorm: 145950 02/12/2012 No longer A ctive Kenalog 40 mg/mL Susp for Injection RxNorm: 8546943 Milliliter 02/12/2012 No longer Active Influenza Virus Vaccine 0.5 mL RxNorm: 06/05/2011 No longer Active Immunizations Vaccine Codes Date Status Influenza CVX: 141 05/06 completed Influenza CVX: 141 04/27 completed Influenza CVX: 141 08/28 completed Influenza CVX: 141 06/05 completed Assessments Condition Codes Effectiv e Dates Essential (primary) hypertension ICD -10: I10 ICD-9: 401.1 11/15/2016 Type 2 diabetes mell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 ICD-10: E11.9 ICD-9: 250.00 11/15/2016 Other malaise ICD-10: R53.81 ICD-9: 780.79 11/06/2016 Other fatigue ICD-10: R53.83 ICD-9: 780.79 11/06/2016 Weakness ICD-10: R53.1 ICD-9: 780.79 11/06/2016 Type 2 diabetes mellitus with hyperglycemia ICD-10: E11.65 ICD-9: 250.02 11/06/2016 Mixed hyperlipidemia ICD-10: E78.2 ICD-9: 272.4 09/19/2016 Essential (primary) hypertension ICD -10: I10 ICD-9: [...] ICD-9: 780.60 02/12/2012 Hemorrhoids ICD-9: 455.6 02/05/2012 CHRONIC SINUSITIS ICD-9: 473.9 02/05/2012 Otalgia of both ears ICD-9: 388.70 02/05/2012 Dysuria ICD-9: 788.1 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 07/24/2011 Back pain ICD-9: 724.5 1 08/19/2010 Hematochezia ICD-9: 578.1 06/19/2011 Reason For Visit Reason For Visit Effective Dates Notes shortness of breath 11/15/2016 shortness of breath [...] Observation Code Item Item Code Result Date Ferritin Ord22 FERRITIN 89.9 ng/mL 11/09/2016 Parathyroid Hormone Zim813 PTH 36.20 pg/ml 11/09/2016 Tibc Ord40 Iron 75 ug/dl 11/08/2016 Tibc Ord40 UIBC 325 ug/dL 11/08/2016 Tibc Ord40 TIBC 400 ug/dL 11/08/2016 Tibc Ord40 Fe-%Sat 18.8 % 11/08/2016 Comp Metabolic Fvd144 NA 139 mEq/L 09/25/2016 Comp Metabolic Jry169 K 4.3 mEq/L 09/25/2016 Comp Metabolic Aws384 CL 101 mEq/L 09/25/2016 Comp Metabolic Qop178 CO2 31.0 mEq/L 09/25/2016 Comp Metabolic Jef087 AN ION GAP 11 09/25/2016 Comp Metabolic Oon987 GL UCOSE 116 mg/dL 09/25/2016 Comp Metabolic Rbc563 Cr eat 1.1 mg/dL 09/25/2016 Comp Metabolic Fpb717 eG FR 53 ml/min/1.73m2 09/25 Comp Metabolic Zaa817 BUN 22 mg/dL 09/25/2016 Comp Metabolic Eog048 B/ C Ratio 20.8 Ratio 09/25/2016 Comp Metabolic Wgo002 CA LCIUM 10.3 mg/dL 09/25/2016 Comp Metabolic Mht148 AL K PHOS 52 U/L 09/25/2016 Comp Metabolic Yri227 T(SGOT) 16 U/L 09/25/2016 Comp Metabolic Vjt404 AL T(SGPT) 17 U/L 09/25/2016 Comp Metabolic Dwv826 BI LI T 0.3 mg/dL 09/25/2016 Comp Metabolic Foe094 AL BUMIN 4.7 g/dL 09/25/2016 Comp Metabolic Anh124 TP RO 6.9 g/dL 09/25/2016 Comp Metabolic Zmp742 GL OB 2.2 g/dL 09/25/2016 Comp Metabolic Kli105 A/ G Ratio 2.1 Ratio 09/25/2016 Comp Metabolic Kvj559 Os mo 282 mOsmo 09/25/2016 Lipid Ord30 CHOL 182 mg/dL 09/25/2016 Lipid Ord30 HDL 55.0 mg/dl 09/25/2016 Lipid Ord30 TRIG 168 mg/dL 09/25/2016 Lipid Ord30 LDL 93 mg/dL 09/25/2016 Lipid Ord30 C/HDL 3.3 Ratio 09/25/2016 %Hba1C Qis209 % HbA1c 49894-0 7.0 % 09/25/2016 %Hba1C Dxl848 Gluc Ave 154 mg/dL 09/25/2016 Free T4 Ygm672 FREE T4 0.80 ng/dL 09/25/2016 Cbc With [...] 31.0 % 09/25/2016 Cbc With Differential Ord2 Mercer% 8.2 % 09/25/2016 Cbc With Differential Ord2 MCH 28.3 pg 09/25/2016 Cbc With Differential Ord2 MCHC 33.2 pg 09/25/2016 Cbc With Differential Ord2 Eos% 0.2 % 09/25/2016 Cbc With Differential Ord2 Baso% 0.7 % 09/25/2016 Cbc With Differential Ord2 PLT 294 K/ul 09/25/2016 Cbc With Differential Ord2 Neut ABS# 2.49 K/ul 09/25/2016 Cbc With Differential Ord2 RDW 14.9 % 09/25/2016 Cbc With Differential Ord2 Lymph ABS# 1.29 K/ul 09/25/2016 Cbc With Differential Ord2 Mercer ABS# 0.3 K/ul 09/25/2016 Cbc With Differential Ord2 Eos ABS# 0.0 K/ul 09/25/2016 Cbc With Differential Ord2 Baso ABS# 0.0 K/ul 09/25/2016 Tsh Ord6 hTSH II 1.01 uIU/mL 09/25/2016 Tsh Ord6 hTSH II 1.35 uIU/mL 06/04/2016 Comp Metabolic Wro171 NA 135 mEq/L 06/04/2016 Comp Metabolic Vqc275 K 3.8 mEq/L 06/04/2016 Comp Metabolic Rwu473 CL 99 mEq/L 06/04/2016 Comp Metabolic Yeh148 CO2 30.0 mEq/L 06/04/2016 Comp Metabolic Qox178 AN ION GAP 10 06/04/2016 Comp Metabolic Ybu221 GL UCOSE 171 mg/dL 06/04/2016 Comp Metabolic Yeq544 Cr eat 1.0 mg/dL 06/04/2016 Comp Metabolic Mvf811 eG FR 59 ml/min/1.73m2 06/04 Comp Metabolic Rfr089 BUN 22 mg/dL 06/04/2016 Comp Metabolic Ktw300 B/ C Ratio 22.4 Ratio 06/04/2016 Comp Metabolic Frr888 CA LCIUM 10.4 mg/dL 06/04/2016 Comp Metabolic Igs829 AL K PHOS 68 U/L 06/04/2016 Comp Metabolic Pis031 T(SGOT) 22 U/L 06/04/2016 Comp Metabolic Jck315 AL T(SGPT) 25 U/L 06/04/2016 Comp Metabolic Eym372 BI LI T 0.4 mg/dL 06/04/2016 Comp Metabolic Gou192 AL BUMIN 4.5 g/dL 06/04/2016 Comp Metabolic Wmq504 TP RO 7.0 g/dL 06/04/2016 Comp Metabolic Olj197 GL OB 2.5 g/dL 06/04/2016 Comp Metabolic Ery590 A/ G Ratio 1.8 Ratio 06/04/2016 Comp Metabolic Jya753 Os mo 277 mOsmo 06/04/2016 Cbc With Differential Ord2 WBC 6.57 K/ul 06/04/2016 Cbc With Differential Ord2 RBC 4.47 M/ul 06/04/2016 Cbc With Differential Ord2 HGB 13.0 g/dl 06/04/2016 Cbc With Differential Ord2 HCT 38.7 % 06/04/2016 Cbc With Differential Ord2 Neut% 66.4 % 06/04/2016 Cbc With Differential Ord2 Lymph% 24.0 % 06/04/2016 Cbc With Differential Ord2 MCV 86.6 fl 06/04/2016 Cbc With Differential Ord2 Mercer% 7.9 % 06/04/2016 Cbc With Differential Ord2 MCH 29.1 pg 06/04/2016 Cbc With Differential Ord2 MCHC 33.6 pg 06/04/2016 Cbc With Differential Ord2 Eos% 0.8 % 06/04/2016 Cbc With Differential Ord2 PLT 289 K/ul 06/04/2016 Cbc With Differential Ord2 Baso% 0.9 % 06/04/2016 Cbc With Differential Ord2 Neut ABS# 4.36 K/ul 06/04/2016 Cbc With Differential Ord2 RDW 15.3 % 06/04/2016 Cbc With Differential Ord2 Lymph ABS# 1.58 K/ul 06/04/2016 Cbc With Differential Ord2 Mercer ABS# 0.5 K/ul 06/04/2016 Cbc With Differential Ord2 Eos ABS# 0.1 K/ul 06/04/2016 Cbc With Differential Ord2 Baso ABS# 0.1 K/ul 06/04/2016 %Hba1C Ltp141 % HbA1c 63633-4 8.7 % 06/04/2016 %Hba1C Spo435 Gluc Ave 203 mg/dL 06/04/2016 Free T4 Zjn766 FREE T4 0.84 ng/dL 06/04/2016 Lipid Ord30 CHOL 111 mg/dL 06/04/2016 Lipid Ord30 HDL 51.0 mg/dl 06/04/2016 Lipid Ord30 TRIG 185 mg/dL 06/04/2016 Lipid Ord30 LDL 23 mg/dL 06/04/2016 Lipid Ord30 C/HDL 2.2 Ratio 06/04/2016 Microalbumin Dyo526 Micr oAlb <0.7 mg/dL 06/04/2016 Comp Metabolic Keo817 NA 142 mEq/L 03/12/2016 Comp Metabolic Vmg380 K 4.1 mEq/L 03/12/2016 Comp Metabolic Wec209 CL 103 mEq/L 03/12/2016 Comp Metabolic Kft251 CO2 30.0 mEq/L 03/12/2016 Comp Metabolic Oqe581 AN ION GAP 13 03/12/2016 Comp Metabolic Ctu572 GL UCOSE 138 mg/dL 03/12/2016 Comp Metabolic Hmc061 Cr eat 0.8 mg/dL 03/12/2016 Comp Metabolic Thj111 eG FR 75 ml/min/1.73m2 03/12 Comp Metabolic Fiq609 BUN 18 mg/dL 03/12/2016 Comp Metabolic Wsl136 B/ C Ratio 22.8 Ratio 03/12/2016 Comp Metabolic Rdf457 CA LCIUM 9.8 mg/dL 03/12/2016 Comp Metabolic Cbd183 AL K PHOS 83 U/L 03/12/2016 Comp Metabolic Lac580 T(SGOT) 15 U/L 03/12/2016 Comp Metabolic Ljc926 AL T(SGPT) 20 U/L 03/12/2016 Comp Metabolic Hxc122 BI LI T 0.4 mg/dL 03/12/2016 Comp Metabolic Ope712 AL BUMIN 4.2 g/dL 03/12/2016 Comp Metabolic Xup992 TP RO 6.4 g/dL 03/12/2016 Comp Metabolic Rxh946 GL OB 2.2 g/dL 03/12/2016 Comp Metabolic Rbs042 A/ G Ratio 1.9 Ratio 03/12/2016 Comp Metabolic Dha474 Os mo 287 mOsmo 03/12/2016 %Hba1C Iwh947 % HbA1c 65352-5 7.2 % 03/12/2016 %Hba1C Qdz153 Gluc Ave 160 mg/dL 03/12/2016 Comp Metabolic Unb110 NA 138 mEq/L 10/18/2015 Comp Metabolic Djg840 K 4.1 mEq/L 10/18/2015 Comp Metabolic Tub389 CL 97 mEq/L 10/18/2015 Comp Metabolic Qwp198 CO2 32.0 mEq/L 10/18/2015 Comp Metabolic Mjg478 AN ION GAP 13 10/18/2015 Comp Metabolic Nmv267 GL UCOSE 145 mg/dL 10/18/2015 Comp Metabolic Zqb234 Cr eat 1.1 mg/dL 10/18/2015 Comp Metabolic Qhc545 eG FR 50 ml/min/1.73m2 10/17 Comp Metabolic Svj661 BUN 23 mg/dL 10/18/2015 Comp Metabolic Tuj264 B/ C Ratio 20.4 Ratio 10/18/2015 Comp Metabolic Paz622 CA LCIUM 10.3 mg/dL 10/18/2015 Comp Metabolic Sse869 AL K PHOS 59 U/L 10/18/2015 Comp Metabolic Ssg025 T(SGOT) 17 U/L 10/18/2015 Comp Metabolic Tjt246 AL T(SGPT) 21 U/L 10/18/2015 Comp Metabolic Iti602 BI LI T 0.4 mg/dL 10/18/2015 Comp Metabolic Wcv407 AL BUMIN 4.6 g/dL 10/18/2015 Comp Metabolic Lgl946 TP RO 7.1 g/dL 10/18/2015 Comp Metabolic Kcw941 GL OB 2.5 g/dL 10/18/2015 Comp Metabolic Hxw547 A/ G Ratio 1.9 Ratio 10/18/2015 Comp Metabolic Yzg198 Os mo 282 mOsmo 10/18/2015 Tsh Ord6 hTSH II 1.81 uIU/mL 10/18/2015 %Hba1C Zge074 % HbA1c 54749-0 7.3 % 10/18/2015 %Hba1C Ovg409 Gluc Ave 163 mg/dL 10/18/2015 Iron Ord72 Iron 90 ug/dl 10/18/2015 Free T4 Gbh999 FREE T4 0.75 ng/dL 10/18/2015 Cbc With Differential Ord2 WBC 7.37 K/ul 10/18/2015 Cbc With Differential Ord2 RBC 4.59 M/ul 10/18/2015 Cbc With Differential Ord2 HGB 13.3 g/dl 10/18/2015 Cbc With Differential Ord2 Neut% 63.3 % 10/18/2015 Cbc With Differential Ord2 HCT 40.6 % 10/18/2015 Cbc With Differential Ord2 MCV 88.5 fl 10/18/2015 Cbc With Differential Ord2 Lymph% 26.2 % 10/18/2015 Cbc With Differential Ord2 MCH 29.0 pg 10/18/2015 Cbc With Differential Ord2 Mercer% 6.8 % 10/18/2015 Cbc With Differential Ord2 Eos% 3.0 % 10/18/2015 Cbc With Differential Ord2 MCHC 32.8 pg 10/18/2015 Cbc With Differential Ord2 Baso% 0.7 % 10/18/2015 Cbc With Differential Ord2 PLT 360 K/ul 10/18/2015 Cbc With Differential Ord2 Neut ABS# 4.67 K/ul 10/18/2015 Cbc With Differential Ord2 RDW 14.9 % 10/18/2015 Cbc With Differential Ord2 Lymph ABS# 1.93 K/ul 10/18/2015 Cbc With Differential Ord2 Mercer ABS# 0.5 K/ul 10/18/2015 Cbc With Differential [...] Lipid Ord30 C/HDL 2.3 Ratio 10/18/2015 TSH 8543036 TSH 1.042 uIU/ML 12/24/2012 A1C HPLC 3797086 A1C HPLC 76749-9 7.6 % 12/24/2012 ESR 4575331 ESR 2 MM/HR 12/23/2012 CHEM 14 2634397 AST 20 U/L 12/23/2012 CHEM 14 9703926 ALT 24 IU/L 12/23/2012 CHEM 14 0858241 BUN 16 MG/DL 12/23/2012 CHEM 14 2041894 ALBUMIN 4.7 GM/DL 12/23/2012 CHEM 14 1699073 CHLORIDE 102 MMOL/L 12/23/2012 CHEM 14 3895783 BILI TOT 0.3 MG/DL 12/23/2012 CHEM 14 5771461 ALK PHOS 109 U/L 12/23/2012 CHEM 14 7829538 SODIUM 142 MMOL/L 12/23/2012 CHEM 14 4064347 CREATINI NE 0.93 MG/DL 12/23/2012 CHEM 14 2752835 CALCIUM 10.0 MG/DL 12/23/2012 CHEM 14 1106420 POTASSIUM 3.7 MMOL/L 12/23/2012 CHEM 14 5729360 PROT TOT 7.2 GM/DL 12/23/2012 CHEM 14 2440364 GLUCOSE 116 MG/DL 12/23/2012 CHEM 14 4623413 BICARB 32 MMOL/L 12/23/2012 CHEM 14 7040411 ANION GAP 8 MEQ/L 12/23/2012 GFR CALC 3482688 GFR AA >60 ML/MIN 12/23/2012 GFR CALC 4508441 GFR NON -AA 59.0L ML/MIN 3 CBC 5586776 WBC 5.5 10e9/L 12/23/2012 CBC 7615527 RBC 4.90 10e12/L 12/23/2012 CBC 0149026 HGB 14.1 g/dL 12/23/2012 CBC 5403190 HCT DET 42.4 % 12/23/2012 CBC 9948816 MCV 86.5 fL 12/23/2012 CBC 4168816 MCH 28.8 pg 12/23/2012 CBC 7149691 MCHC 33.3 g/dL 12/23/2012 CBC 4314097 PLT 320 10e9/L 12/23/2012 CBC 7808691 MPV 9.9 fL 12/23/2012 CBC 2332171 BRANDIE % 63.7 % 12/23/2012 CBC 2099455 LY % 24.6 % 12/23/2012 CBC 4919661 MON % 6.3 % 12/23/2012 CBC 5670384 EOS % 4.7 % 12/23/2012 CBC 9255247 BASO % 0.7 % 12/23/2012 CBC 9137716 RDW 15.0 % 12/23/2012 CBC 9257336 ABS BRANDIE 3.50 10e9/L 12/23/2012 CBC 2327291 ABS LYMPH 1.35 10e9/L 12/23/2012 CBC 9569435 ABS MONO 0.35 10e9/L 12/23/2012 CBC 7176091 ABS EOS 0.26 10e9/L 12/23/2012 CBC 1045250 ABS BASO 0.04 10e9/L 12/23/2012 CBC 8651504 RDW-SD 47.1 fL 12/23/2012 CRP 3844160 CRP 0.1 MG/DL 12/23/2012 URINALYSIS NONAUTO W/O SCOPE 89201 Specific Pep 1.005 DateTime(Free Text in Apr) URINALYSIS NONAUTO W/O SCOPE 84814 PH 7.5 DateTime(Free Mina t in Apr) URINALYSIS NONAUTO W/O SCOPE 74236 GLUCOSE NEG DateTime(Free Mina t in Aprima) URINALYSIS NONAUTO W/O SCOPE 94469 Protein NEG DateTime(Free Mina t in Aprima) URINALYSIS NONAUTO W/O SCOPE 59463 Blood NEG DateTime(Free Mina t in Aprima) URINALYSIS NONAUTO W/O SCOPE 22995 Bilirubin NEG DateTime(Free Mina t in Aprima) URINALYSIS NONAUTO W/O SCOPE 36703 Ketones NEG DateTime(Free Mina t in ) URINALYSIS NONAUTO W/O SCOPE 88624 Urobilinogen NEG DateTime(Free Text in ) URINALYSIS NONAUTO W/O SCOPE 71879 Nitrite NEG DateTime(Free Mina t in ) URINALYSIS NONAUTO W/O SCOPE 36343 Leukocytes NEG DateTime(Free Text in ) Review of Systems System Result Effective Dates Constitutional No night sweats 11/15/2016 Constitutional No [...] 04/14/2014 Musculoskeletal bone pain 04/14/2014 Psychiatric anxiety 08/02/2014 Psychiatric depression 0 04/14/2014 Constitutional No anorexia [...] 08/23/2011 Respiratory chest congestion 08/23/2011 Psychiatric anxiety 0 12/2011 Psychiatric depression 0 08/23/2011 Musculoskeletal No [...] accomodation 12/15/2012 None Full Exam - General 1995 [...] nourished 06/05/2011 None Procedures Procedure Codes Date FLU VAC NO PRSV 4 VA L 3 YRS+ CPT-4: 99070Ywzzprw 05/06/2014 ADMIN PNEUMOCOCCAL V ACCINE SNOMED CT: 51489952 CPT-4: M1122Khbzvmo 05/06/2014 PRESCRIP TRANSMIT A ERX SY CPT-4: J1696Xeomyfj 06/12/2013 PRESCRIP TRANSMIT A ERX SY CPT-4: Z2015Njvahwt 05/20/2013 ADMIN INFLUENZA VIRU S VAC CPT-4: V2961Cgklwnb 04/27/2013 FLULAVAL VACC, 3 YRS & >, IM CPT-4: N3570Tcphgjr 04/27/2013 PRESCRIP TRANSMIT A ERX SY CPT-4: H1474Wynhbdl 04/09/2013 PRESCRIP TRANSMIT A ERX SY CPT-4: A4949Solcbpi 01/26/2013 ROUTINE VENIPUNCTURE CPT-4: 22294Bkgdqdm 12/23/2012 PRESCRIP TRANSMIT A ERX SY CPT-4: S9010Ubobyip 06/09/2012 ROCEPHIN, PER 250 MG CPT-4: Z5134Yykxhjh 02/12/2012 TRIAMCINOLONE ACET I [place] NOS CPT-4: F5029Ldjbbhk 02/12/2012 PRESCRIP TRANSMIT A ERX SY CPT-4: B2002Fgbplxf 02/12/2012 ROCEPHIN, PER 250 MG CPT-4: T2614Flnvebv 02/05/2012 URINALYSIS NONAUTO W /O SCOPE CPT-4: 75005Wyhheqm 11/14/2011 REMOVE IMPACTED EAR WAX UNI CPT-4: 82002Pdtlcly 08/28/2011 PRESCRIP TRANSMIT A ERX SY CPT-4: H9697Fijypbw 08/28/2011 ROCEPHIN, PER 250 MG CPT-4: P8884Ocfmkby 08/23/2011 TRIAMCINOLONE ACET I [place] NOS CPT-4: I9295Hfekjug 08/23/2011 THER/PROPH/DIAG INJ SC/IM CPT-4: 00561Ufwsjpl 08/23/2011 PRESCRIP TRANSMIT A ERX SY CPT-4: V2382Ahxdiwl 08/23/2011 OCCULT BLOOD FECES CPT-4: 49467Jsvsffz 06/19/2011 URINALYSIS NONAUTO W /O SCOPE CPT-4: 15039Ovxozgp 06/19/2011 PRESCRIP TRANSMIT A ERX SY CPT-4: Y1709Kuxdbsv 06/19/2011 ADMIN INFLUENZA VIRU S VAC CPT-4: A7962Mrrjnhq 06/05/2011 FLULAVAL VACC, 3 YRS & >, IM CPT-4: L5237Dhvhugv 06/05/2011 Vital Signs Date Vital 11/15/2016 Blood Pressure 1: 148/72 Code: 8480-6 BMI: 29.5 Code: 92915-9 Heart Rate 1: 102 bpm Height: 5'3" SpO2: 98% Weight: 169 lbs 11/06/2016 Blood Pressure 1: 140/78 Code: 8480-6 BMI: 29.8 Code: 88350-3 Heart Rate 1: 100 bpm Height: 5'3" SpO2: 97% Weight: 171 lbs 08/01/2016 Blood Pressure 1: 128/56 Code: 8480-6 BMI: 30.3 Code: 13257-6 Heart Rate 1: 88 bpm Height: 5'3" SpO2: 97% Weight: 174 lbs 07/02/2016 Blood Pressure 1: 126/62 Code: 8480-6 BMI: 31.0 Code: 80564-2 Heart Rate 1: 101 bpm Height: 5'3" SpO2: 97% Weight: 178 lbs 06/04/2016 Blood Pressure 1: 136/72 Code: 8480-6 BMI: 31.4 Code: 99134-6 Heart Rate 1: 103 bpm Height: 5'3" SpO2: 98% Weight: 180 lbs 03/26/2016 Blood Pressure 1: 134/74 Code: 8480-6 BMI: 30.7 Code: 24082-0 Heart Rate 1: 93 bpm Height: 5'3" SpO2: 98% Weight: 176 lbs 11/23/2015 Blood Pressure 1: 128/77 Code: 8480-6 BMI: 30.2 Code: 11096-7 Heart Rate 1: 74 bpm Height: 5'3" SpO2: 96% Weight: 173 lbs 10/14/2015 Blood Pressure 1: 122/72 Code: 8480-6 BMI: 30.3 Code: 79541-3 Heart Rate 1: 76 bpm Height: 5'3" SpO2: 97% Weight: 174 lbs 03/31/2015 Blood Pressure 1: 140/68 Code: 8480-6 BMI: 30.0 Code: 32440-4 Heart Rate 1: 93 bpm Height: 5'3" SpO2: 94% Weight: 172 lbs 08/31/2014 Blood Pressure 1: 122/74 Code: 8480-6 BMI: 31.2 Code: 51323-3 Heart Rate 1: 76 bpm Height: 5'3" Weight: 179 lbs 08/10/2014 Blood Pressure 1: 138/62 Code: 8480-6 BMI: 31.0 Code: 59088-7 Heart Rate 1: 80 bpm Height: 5'3" Weight: 178 lbs 05/06/2014 BMI: 31.2 Code: 83833-3 Height: 5'3" Weight: 179 lbs 04/14/2014 Blood Pressure 1: 136/68 Code: 8480-6 BMI: 31.4 Code: 50243-7 Heart Rate 1: 74 bpm Height: 5'3" Weight: 180 lbs 11/10/2013 Blood Pressure 1: 102/50 Code: 8480-6 BMI: 30.7 Code: 70665-1 Heart Rate 1: 76 bpm Height: 5'3" Weight: 176 lbs 07/14/2013 Blood Pressure 1: 136/80 Code: 8480-6 BMI: 30.3 Code: 61462-8 Heart Rate 1: 70 bpm Height: 5'3" Weight: 174 lbs 06/12/2013 Blood Pressure 1: 142/82 Code: 8480-6 BMI: 30.9 Code: 54380-6 Heart Rate 1: 72 bpm Height: 5'3" Weight: 177 lbs 05/20/2013 Blood Pressure 1: 132/70 Code: 8480-6 BMI: 31.2 Code: 00783-9 Heart Rate 1: 88 bpm Height: 5'3" Weight: 179 lbs 04/09/2013 Blood Pressure 1: 136/70 Code: 8480-6 BMI: 31.0 Code: 90847-2 Heart Rate 1: 100 bpm Height: 5'3" Weight: 178 lbs 01/26/2013 Blood Pressure 1: 118/56 Code: 8480-6 BMI: 30.7 Code: 11481-6 Heart Rate 1: 87 bpm Height: 5'3" Weight: 176 lbs 12/23/2012 Blood Pressure 1: 136/76 Code: 8480-6 Heart Rate 1: 104 bpm Respiratory Rate: 20 bpm Weight: 178 lbs 12/15/2012 Blood Pressure 1: 150/82 Code: 8480-6 Heart Rate 1: 100 bpm Temperature: 36.7 (C) / 98.1 (F) Weight: 178 lbs 10/22/2012 Blood Pressure 1: 138/82 Code: 8480-6 BMI: 30.2 Code: 44818-5 Heart Rate 1: 100 bpm Height: 5'3" Weight: 173 lbs 08/21/2012 Blood Pressure 1: 136/70 Code: 8480-6 BMI: 30.6 Code: 33762-0 Heart Rate 1: 98 bpm Height: 5'3" Weight: 175 lbs 8 oz 07/17/2012 Blood Pressure 1: 152/68 Code: 8480-6 BMI: 29.9 Code: 10086-1 Heart Rate 1: 92 bpm Height: 5'3" [...] 1: 122/68 Code: 8480-6 BMI: 29.5 Code: 62153-2 Heart Rate 1: 96 bpm Height: 5'3" [...] 1: 130/72 Code: 8480-6 BMI: 30.4 Code: 64786-4 Heart Rate 1: 92 bpm Height: 5'3" Respiratory Rate: 16 bpm Weight: 174 lbs 8 oz 06/19/2011 Blood Pressure 1: 122/70 Code: 8480-6 BMI: 30.2 Code: 37159-2 Heart Rate 1: 104 bpm Height: 5'3" Weight: 173 lbs 06/05/2011 Blood Pressure 1: 100/50 Code: 8480-6 BMI: 29.6 Code: 75227-1 Heart Rate 1: 96 bpm Height: 5'3" Respiratory Rate: 16 bpm Weight: 170 lbs Functional Status No Functional Status data History of Present Illness Symptom Name Status Resu lt Effective Date Notes shortness of breath Quality breathlessness 11/15/2016 None [...] Denies edema 03/31/2015 None ~generic Location diffus chreyl 03/31/2015 reports stiff neck which she is [...] 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 P ATIENT, LEVEL IV Diagnosis: Essential (primary) hypertension[ICD10: I10] Diagnosis: Type 2 diabetes mell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[ICD10: E11.9] Amy Cheung MD, [facility] CPT-4: 80263 11/15/2016 [id number] EST. PATIENT, LEVEL III Diagnosis: Other malaise[ICD10: R53.81] Diagnosis: Other fatigue[ICD10: R53.83] Diagnosis: Type 2 diabetes mellitus with hyperglycemia[ICD10: E11.65] Diagnosis: Essential (primary) hypertension[ICD10: I10] Diagnosis: Weakness[ICD10: R53.1] Mariana Cheung MD, [facility] CPT-4: 96132 11/06/2016 ([id number]) 49358 EST. P ATIENT, LEVEL III Diagnosis: Type 2 diabetes mellitus with hyperglycemia[ICD10: E11.65] Amy Cheung MD, [facility] CPT-4: 61823 08/01/2016 ([id number]) 90453 EST. P ATIENT, LEVEL III Diagnosis: Type 2 diabetes mellitus with hyperglycemia[ICD10: E11.65] Diagnosis: Gastroparesis[ICD10: K31.84] Amy Cheung MD, [facility] CPT-4: 62758 07/02/2016 ([id number]) 32238 EST. P ATIENT, LEVEL IV Diagnosis: Type 2 diabetes mellitus with hyperglycemia[ICD10: E11.65] Diagnosis: Hypothyroidism, unspecified[ICD10: E03.9] Amy Cheung MD, [facility] CPT-4: 97478 06/04/2016 ([id number]) 75509 EST. P ATIENT, LEVEL IV Diagnosis: Type 2 diabetes mellitus with hyperglycemia[ICD10: E11.65] Diagnosis: Mixed hyperlipidemia[ICD10: E78.2] Diagnosis: Essential (primary) hypertension[ICD10: I10] Amy Cheung MD, [facility] CPT-4: 62012 03/26/2016 ([id number]) 46463 EST. P ATIENT, LEVEL III Diagnosis: Essential (primary) hypertension[ICD10: I10] Diagnosis: Adjustment disorder with mixed anxiety and depressed mood[ICD10: F43.23] Amy Cheung MD, [facility] CPT-4: 31471 11/23/2015 ([id number]) 16409 EST. P ATIENT, LEVEL IV Diagnosis: Type 2 diabetes mellitus with hyperglycemia[ICD10: E11.65] Diagnosis: Panic disorder [episodic paroxysmal anxiety] without agoraphobia[ICD10: F41.0] Diagnosis: Adjustment disorder with mixed anxiety and depressed mood[ICD10: F43.23] Diagnosis: Essential (primary) hypertension[ICD10: I10] Amy Cheung MD, [facility] CPT-4: 27414 10/14/2015 ([id number]) 52549 EST. P ATIENT, LEVEL IV Diagnosis: DIABETES TYPE II[ICD9: 250.00] Diagnosis: GENERALIZED ANXIETY DISEASE[ICD9: 300.02] Diagnosis: ESSENTIAL HYPERTENSION[ICD9: 401.9] Diagnosis: ESOPHAGEAL REFLUX[ICD9: 530.81] Amy Cheung MD, [facility] CPT-4: 87031 03/31/2015 ([id number]) 81472 EST. P ATIENT, LEVEL IV Diagnosis: DM W/O COMPLICATION TYPE II, UNCONTROLLED[ICD9: 250.02] Diagnosis: ESSENTIAL HYPERTENSION[ICD9: 401.9] Diagnosis: DEPRESSIVE DISORDER NEC[ICD9: 311] Diagnosis: GENERALIZED ANXIETY DISEASE[ICD9: 300.02] Amy Cheung MD, [facility] CPT-4: 24177 08/31/2014 ([id number]) 16927 EST. P ATIENT, LEVEL IV Diagnosis: ESSENTIAL HYPERTENSION[ICD9: 401.9] Diagnosis: DIABETES TYPE II[ICD9: 250.00] Diagnosis: Constipation - functional[ICD9: 564.09] Diagnosis: Abdominal pain[ICD9: 789.00] Amy Cheung MD, [facility] CPT-4: 21295 08/10/2014 ([id number]) 52870 EST. P ATIENT, LEVEL III Diagnosis: Flu vaccine need[ICD9: V04.81] Diagnosis: Neck pain[ICD9: 723.1] Diagnosis: Chronic allergic rhinitis[ICD9: 477.9] Amy Cheung MD, [facility] CPT-4: 75398 05/06/2014 ([id number]) 98898 EST. P ATIENT, LEVEL IV Diagnosis: DM W/O COMPLICATION TYPE II, UNCONTROLLED[ICD9: 250.02] Diagnosis: GENERALIZED ANXIETY DISEASE[ICD9: 300.02] Diagnosis: ESSENTIAL HYPERTENSION[ICD9: 401.9] Diagnosis: Neck pain[ICD9: 723.1] Amy Cheung MD, [facility] CPT-4: 79749 04/14/2014 ([id number]) 70031 EST. P ATIENT, LEVEL IV Diagnosis: ESSENTIAL HYPERTENSION[SNOMED: 23137741] Diagnosis: DIABETES TYPE II[SNOMED: 809122113] Diagnosis: Iliotibial band syndrome[ICD9: 728.89] Diagnosis: DEPRESSIVE DISORDER NEC[ICD9: 311] Diagnosis: GENERALIZED ANXIETY DISEASE[ICD9: 300.02] Amy Cheung MD, [facility] CPT-4: 82091 11/10/2013 ([id number]) 04772 EST. P ATIENT, LEVEL III Diagnosis: DIABETES TYPE II[SNOMED: 981546562] Amy Cheung MD, [facility] CPT- 4: 31768 07/14/2013 ([id number]) 22257 EST. P ATIENT, LEVEL IV Diagnosis: ESSENTIAL HYPERTENSION[SNOMED: 94102183] Diagnosis: DM W/O COMPLICATION TYPE II, UNCONTROLLED[SNOMED: 06140172] Amy Cheung MD, [facility] CPT-4: 17078 06/12/2013 ([id number]) 93754 EST. P ATIENT, LEVEL III Diagnosis: DIABETES TYPE II[SNOMED: 741540061] Amy Cheung MD, [facility] CPT- 4: 84030 05/20/2013 ([id number]) 54788 EST. P ATIENT, LEVEL IV Diagnosis: ESSENTIAL HYPERTENSION[SNOMED: 83223181] Diagnosis: HYPERLIPIDEMIA[ICD9: 272.4] Diagnosis: Type II diabetes mellitus, uncontrolled[SNOMED: 68333828] Amy Cheung MD, [facility] CPT-4: 83884 04/09/2013 ([id number]) 37664 EST. P ATIENT, LEVEL III Diagnosis: ESSENTIAL HYPERTENSION[SNOMED: 32560744] Diagnosis: ENCNTR LONG-RX USE NEC[ICD9: V58.69] Diagnosis: IMPACTED CERUMEN[ICD9: 380.4] Amy Cheung MD, [facility] CPT-4: 73735 01/26/2013 ([id number]) 88994 EST. P ATIENT, LEVEL IV Diagnosis: DIABETES TYPE II[SNOMED: 944928030] Diagnosis: ESSENTIAL HYPERTENSION[SNOMED: 87368904] Diagnosis: Polymyalgia[ICD9: 725] Amy Cheung MD, [facility] CPT-4: 11979 12/23/2012 ([id number]) 33765 EST. P ATIENT, LEVEL III Diagnosis: ACUTE MAXILLARY SINUSITIS[ICD9: 461.0] Diagnosis: COUGH[ICD9: 786.2] Amy Cheung MD, [facility] CPT-4: 11542 12/15/2012 ([id number]) 12498 EST. P ATIENT, LEVEL III Diagnosis: ANAL OR RECTAL PAIN[ICD9: 569.42] Diagnosis: Bruising[ICD9: 924.9] Diagnosis: Hip pain[ICD9: 719.45] Amy Cheung MD, [facility] CPT-4: [address] 10/22/2012 ([id number]) 19709 EST. P ATIENT, LEVEL IV Diagnosis: ESSENTIAL HYPERTENSION[SNOMED: 14158467] Diagnosis: DIABETES TYPE II[SNOMED: 818025801] Amy Cheung MD, [facility] CPT- 4: 65697 08/21/2012 ([id number]) 04503 EST. P ATIENT, LEVEL IV Diagnosis: DIABETES TYPE II[SNOMED: 959936451] Diagnosis: DEPRESSIVE DISORDER NEC[ICD9: 311] Amy Cheung MD, [facility] CPT- 4: 23737 07/17/2012 ([id number]) 28112 EST. P ATIENT, LEVEL III Diagnosis: ESSENTIAL HYPERTENSION[SNOMED: 00328982] Diagnosis: DEPRESSIVE DISORDER NEC[ICD9: 311] Amy Cheung MD, [facility] CPT- 4: 11025 07/08/2012 22527 EST. PATIENT, LEVEL IV Diagnosis: ESSENTIAL HYPERTENSION[SNOMED: 23327971] Diagnosis: DIABETES TYPE II[SNOMED: 120188153] Amy Cheung MD, [facility] CPT- 4: 11909 06/09/2012 ([id number]) 19384 EST. P ATIENT, LEVEL III Diagnosis: Acute sinusitis[ICD9: 461.9] Diagnosis: FEVER NOS[ICD9: 780.60] Amy Cheung MD, [facility] CPT-4: 33599 02/12/2012 ([id number]) 08385 EST. P ATIENT, LEVEL III Diagnosis: Otalgia of both ears[ICD9: 388.70] Diagnosis: Hemorrhoids[ICD9: 455.6] Diagnosis: Rectal or anal pain[ICD9: 569.42] Amy Cheung MD, [facility] CPT-4: 93446 02/05/2012 ([id number]) 61594 EST. P ATIENT, LEVEL IV Diagnosis: Dysuria[ICD9: 788.1] Diagnosis: ACUTE MAXILLARY SINUSITIS[ICD9: 461.0] Diagnosis: Allergic rhinitis[ICD9: 477.9] Amy Cheung MD, [facility] CPT-4: 62869 11/14/2011 ([id number]) 90495 EST. P ATIENT, LEVEL IV Diagnosis: DIABETES TYPE II[SNOMED: 094542445] Diagnosis: Cough[ICD9: 786.2] Diagnosis: FEVER NOS[ICD9: 780.60] Amy Cheung MD, [facility] CPT-4: 14041 10/08/2011 [id number] EST. PATIENT, LEVEL IV Diagnosis: OTHER CONSTIPATION[ICD9: 564.09] Diagnosis: IMPACTED CERUMEN[ICD9: 380.4] Diagnosis: Recurrent sinusitis[ICD9: 473.9] Amy Cheung MD [facility] CPT-4: 87282 08/28/2011 78638 EST. PATIENT, LEVEL IV Diagnosis: Neck pain, acute[ICD9: 723.1] Diagnosis: Cough[ICD9: 786.2] Diagnosis: Cerumen impaction[ICD9: 380.4] Amy Cheung MD, [facility] CPT-4: 79277 08/23/2011 71588 EST. PATIENT, LEVEL IV Diagnosis: ESSENTIAL HYPERTENSION[SNOMED: 98670373] Diagnosis: HYPERLIPIDEMIA[ICD9: 272.4] Diagnosis: DIABETES TYPE II[SNOMED: 649847061] Diagnosis: DEPRESSIVE DISORDER NEC[ICD9: 311] Diagnosis: 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[ICD9: 357.7] Amy Cheung MD, [facility] CPT-4: 87450 07/24/2011 [id number] EST. PATIENT, LEVEL IV Diagnosis: Abdominal pain[ICD9: 789.00] Diagnosis: Hematochezia[ICD9: 578.1] Diagnosis: Back pain[ICD9: 724.5] Amy Cheung MD, [facility] CPT-4: 97698 06/19/2011 [id number] EST. 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 I have [...] glucose readings are starting to become less controlled.Hypertension - well controlled - continue with current medications, continue with no added salt diet. Pt has been encouraged to exercise daily.The pt has been advised to call the office if there are any acute concerns about change in blood pressure readings at home. 11/15/2016 App[facility]ment: [phone] (15 min) Moderate 11/15/2016 Patient Education: Patient Medication Summary Completed 11/15/2016 Appointment: Amy Cheung WPtel: [phone] [facility] (15 min) Moderate 11/07/2016 Visit Plan: Fatigue, malaise, diaphoresi s, weakness - will check labs, will send [...] the office next week for practitioner to review.The pt is to call for acute concerns.Diabetes Mellitus - I have recommended for the patient to have follow up labs prior to the next office visit. The patient has been instructed to continue with current medications as previously directed, continue with regular FSBS monitoring to assure continued control of diabetes. Pt to call for any acute concerns, complaints, or if the blood glucose readings are starting to become less co ntrolled.I have recommended for the patient to follow more strictly to the diabetic diet as discussed in clinic to allow for greater blood glucose control. 11/06/2016 Appointment: [phone] [place] (30 min) Complex 11/06/2016 Patient Education: Patient Medication Summary Completed 11/06/2016 Patient Education: Patient Medication Summary Completed 09/19/2016 Patient Education: Patient Medication Summary Completed 08/22/2016 Care Plan: Comp Metabolic Pending 08/22/2016 Care Plan: %Hba1C she can have drawn anytime after 09/04/16 INC : 26153-9 Pending 08/22/2016 Visit Plan: Diabetes Mellitus - improved control - per [...] glucose readings are starting to become less controlled.No new medications or medication changes today - recommended pt to keep on the Trulicity and monitor FSBS at home, bring in copy to clinic. 08/01/2016 Appointment: [facility]el[phone] [facility] (15 min) Moderate 08/01/2016 Patient Education: Patient Medication Summary Completed 08/01/2016 Appointment: [facility]el[phone] [facility] [place] (15 min) Moderate 07/09/2016 Visit Plan: Diabetes Mellitus - controll ed - per recent FSBS reports. I have [...] glucose readings are starting to become less controlled.Gastroparesis - continue with reglan for GI motility 07/02/2016 Appointment: [facility]el[phone] [facility] [place] (15 min) Moderate 07/02/2016 Patient Education: Patient Medication Summary Completed 07/02/2016 Patient Education: Obesity Completed 07/02/2016 Visit Plan: Diabetes Mellitus - controll ed - per recent FSBS reports. I have [...] glucose readings are starting to become less controlled.Hypothyroidism - pt with chronic hypothyroidism, continue with current medication, will monitor pt to signs or symptoms of lack of adequate supplementation. Pt is to continue with current dose of medication unless directed otherwise. Check labs at regular intervals wither q 3 months or q 6 months based on previous levels of control. 06/04/2016 Appointment: [facility]el[phone] [facility] (15 min) Moderate 06/04/2016 Patient Education: Patient Medication Summary Completed 06/04/2016 Visit Plan: Diabetes Mellitus - Uncontro lled - per recent FSBS reports. I have [...] glucose readings are starting to become less controlled.I have recommended for the patient to follow more strictly to the diabetic diet as discussed in clinic to allow for greater blood glucose control.Increase Trulicity from 0.75mg dose to 1.5mg dose.Hypertension - well controlled - continue with current medications, continue with no added salt diet. Pt has been encouraged to exercise daily.The pt has been advised to call the office if there are any acute concerns about change in blood pressure readings at home.Hyperlipidemia - pt has been counseled about appropriate [...] medications. 03/26/2016 Appointment: [facility]el[phone] [facility] (15 min) Moderate 03/26/2016 Patient Education: Patient Medication Summary Completed 03/26/2016 Patient Education: Obesity Completed 03/26/2016 Patient Education: Patient Medication Summary Completed 03/09/2016 Visit Plan: Hypertension - well controll ed - continue with current medications, continue with no added salt diet. Pt has been encouraged to exercise daily.The pt has been advised to call the office if there are any acute concerns about change in blood pressure readings at home.Depression and Anxiety - due to of spouse - continue with current treatment. 11/23/2015 Patient Education: Patient Medication Summary Completed 11/23/2015 Patient Education: Obesity Completed 11/23/2015 Patient Education: Hypertension Completed 11/23/2015 Appointment: (30 min) Complex 11/11/2015 Patient Education: Patient Medication Summary Completed 10/18/2015 Visit Plan: Hypertension - well controll ed - continue with current medications, continue with no added salt diet. Pt has been encouraged to exercise daily.The pt has been advised to call the office if there are any acute concerns about change in blood pressure readings at home.Diabetes Mellitus - controlled - per recent FSBS [...] glucose readings are starting to become less controlled.Depression and anxiety - pt has recently lost spouse to cancer - she has anxiety and depression chronically - but she reports that she feels stable. 10/14/2015 Patient Education: Patient Medication Summary Completed 10/14/2015 Patient Education: Hypertension Completed 10/14/2015 Appointment: [facility]el[phone] [facility] (15 min) Moderate 10/13/2015 Appointment: [facility]Ptel[phone] [facility] (15 min) Moderate 05/09/2015 Visit Plan: Diabetes Mellitus - controll ed - per recent FSBS reports. I have [...] glucose readings are starting to become less controlled.Hypertension - well controlled - continue with current medications, continue with no added salt diet. Pt has been encouraged to exercise daily.The pt has been advised to call the office if there are any acute concerns about change in blood pressure readings at home.Uncontrolled reflux - with regurgitation and dyspnea - pt to increase the nexium to twice daily.Anxiety and Depression - due to situation with her having esophageal cancer. 03/31/2015 Appointment: Amy Cheung WPtel: [phone] [facility] (15 min) Moderate 03/31/2015 Patient Education: Patient Medication Summary Completed 03/31/2015 Patient Education: Hypertension Completed 03/31/2015 Appointment: (15 min) Moderate 02/11/2015 Appointment: Amy Cheung WPtel: [facility] Sick 09/29/2014 Visit Plan: Diabetes Mellitus - controll ed - per recent FSBS reports. I have [...] glucose readings are starting to become less controlled.Hypertension - well controlled - continue with current medications, continue with no added salt diet. Pt has been encouraged to exercise daily.The pt has been advised to call the office if there are any acute concerns about change in blood pressure readings at home.Anxiety/Depression - pt has recently had a close family friend pass away and she was at the house almost every day x 9 months. 2014 Appointment: Amy Cheung WPtel: [facility]3 [facility] Follow up 08/31/2014 Patient Education: Patient Medication Summary Completed 08/31/2014 Patient Education: Hypertension Completed 08/31/2014 Visit Plan: Hypertension - well controll ed - continue with current medications, continue with no added salt diet. Pt has been encouraged to exercise daily.The pt has been advised to call the office if there are any acute concerns about change in blood pressure readings at home.Diabetes Mellitus - controlled - per recent FSBS [...] glucose readings are starting to become less controlled.Constipation - uncontrolled - I have discussed with [...] Hypertension Completed 08/10/2014 Appointment: Amy Cheung WPtel: [address] [place], [place] [id number] Follow up 05/10/2014 Visit Plan: Allergies - chronic - recomm ended pt to use allergy medication as prescribed. Pt has been counseled as to the appropriate use of the medication. Pt to call if allergy symptoms are not controlled with the medication.If using nasal spray, instructions as follows: Nasal spray- use twice daily, one spray per nostril twice daily, after 30 minutes, rinse out nose with saline spray.. Use opposite hand per nostril to spray in the nasal steroid allergy spray.pt wants written rx for claritin and singulair, Neck pain - MRI to be ordered. 05/06/2014 Appointment: Amy Cheung WPtel: [address] [place], [place] [phone] [place] Follow up 05/06/2014 Patient Education: Patient Medication Summary Completed 05/06/2014 Patient Education: .Cervicalgia Neck Pain Completed 05/06/2014 Appointment: Amy Cheung WPtel: [address] [place], [place] [phone] [place] Follow up 05/05/2014 Visit Plan: Hypertension - well controll ed - continue with current medications, continue with no added salt diet. Pt has been encouraged to exercise daily.The pt has been advised to call the [...] glucose readings are starting to become less controlled.Anxiety - pt has been taking oxazepam - prn - feels as if she is doing well - pt is to continue with prn use.Neck pain - recommended pt to see Dr. García for evaluation of the neck. 04/14/2014 Appointment: Amy Cheung WPtel: [phone] [facility] Follow up 04/14/2014 Patient Education: Patient Medication Summary Completed 04/14/2014 Patient Education: Hypertension Completed 04/14/2014 Patient Education: .Cervicalgia Neck Pain Completed 04/14/2014 Visit Plan: Hypertension - well controll ed - continue with current medications, continue with no added salt diet. Pt has been encouraged to exercise daily.The pt has been advised to call the [...] glucose readings are starting to become less controlled.Anxiety - pt has been taking oxazepam - prn - feels as if she is doing well - pt is to continue with prn use. Ilitibial band syndrome- recommended use of antiinflammatories and pt given handout on Ilitibial band exercises. 11/10/2013 Appointment: [facility]Ptel[phone] [place] 11/10/2013 Patient Education: Patient Medication Summary Completed 11/10/2013 Patient Education: Hypertension Completed 11/10/2013 Visit Plan: Diabetes Mellitus - controll ed - per recent FSBS reports. I have [...] glucose readings are starting to become less controlled.Pt with improved control on the bydureon - monitor symptoms. 07/14/2013 Appointment: Skye Amy WPtel: [facility]5 [facility] Other 07/14/2013 Patient Education: Patient Medication Summary Completed 07/14/2013 Appointment: Riya Sheikh WPtel: [facility]5 [facility] [place] [address] Follow up 07/13/2013 Visit Plan: Hypertension - uncontrolled - the patient's medications [...] the office next week for practicioner to review.The pt is to call for acute concerns. [...] glucose readings are starting to become less controlled.I have recommended for the patient to follow more strictly to the diabetic diet as discussed in clinic to allow for greater blood glucose control. 06/12/2013 Appointment: Riya Sheikh WPtel: [facility]5 [facility] [place] [address] Other 06/12/2013 Patient Education: Patient Medication Summary Completed 06/12/2013 Patient Education: Hypertension Completed 06/12/2013 Visit Plan: Diabetes Mellitus - Uncontr olled - per recent FSBS reports. I have [...] glucose readings are starting to become less controlled.I have recommended for the patient to follow more strictly to the diabetic diet as discussed in clinic to allow for greater blood glucose control.pt to use bydureon 1 injection every week - samples given to patient. 05/20/2013 Appointment: [facility]Ptel[phone] [facility] Follow up 05/20/2013 Patient Education: Patient Medication Summary Completed 05/20/2013 Appointment: [facility]Ptel[facility] [phone] [facility] Follow up 05/07/2013 Appointment: Amy Cheung WPtel: [phone] [facility] [place] Lab Draw 04/27/2013 Patient Education: Patient Medication Summary Completed 04/27/2013 Visit Plan: Hyperlipidemia - pt has be en counseled about appropriate diet, exercise, and need [...] and to assure normal liver response to medications.Pt complaining of aching and fatigue - she thinks it may be related to lipitor. I have recommended holding the lipitor x 4 days, then restarting the lipitor to 10mg every other day.I will send a copy of this note to her Director Apparel - Dr. Kraus as he will ultimately be managing her lipid disease. Hypertension - well controlled - continue with current medications, continue with no added salt diet. Pt has been encouraged to exercise daily.The pt has been advised to call the [...] glucose readings are starting to become less controlled.I have recommended for the patient to follow more strictly to the diabetic diet as discussed in clinic to allow for greater blood glucose control.Glyburide restarted. 2012 Appointment: Amy Cheung WPtel: [phone] [facility] Follow up 04/09/2013 Patient Education: Patient Medication Summary Completed 04/09/2013 Patient Education: Hypertension Completed 04/09/2013 Appointment: Amy Cheung WPtel: [facility]5 [facility] Follow up 03/30/2013 Visit Plan: Hypertension - well controll ed - continue with current medications, except for lisinopril ( due to cough) will start on cozaar 25mg daily, and continue with no added salt diet. Pt has been encouraged to exercise daily.The pt has been advised to call the office if there are any acute concerns about change in blood pressure readings at home.Cough - due to lisinopril, will have pt stop the medication and start on cozaar 25mg daily.Cerumen impaction - pt had cerumen removal with warm water today 01/26/2013 Appointment: [facility]Ptel[phone] [facility] 01/26/2013 Patient Education: Patient Medication Summary Completed 01/26/2013 Patient Education: Hypertension Completed 01/26/2013 Visit Plan: Diabetes Mellitus - controll ed - per recent FSBS reports. I have [...] diet. Pt has been encouraged to exercise daily.The pt has been advised to call the office if there are any acute concerns about change in blood pressure readings at home. 12/23/2012 Appointment: Amy Cheung WPtel: [address] [place], [place] [phone] Follow up 12/23/2012 Patient Education: Patient Medication Summary Completed 12/23/2012 Patient Education: Hypertension Completed 12/23/2012 Visit Plan: Sinusitis - Pt has acute inf ection - pain in face, maxillary region, Pt informed to use decongestant, RX given to patient, sinus rinses also recommended. Call if symptoms do not show improvement. 12/15/2012 Appointment: Amy Cheung WPtel: [facility]2 [facility] Sick 12/15/2012 Patient Education: Patient Medication Summary Completed 12/15/2012 Visit Plan: Bruising and pain post fall- with hip pain - recommended pt to have xray of hips and pelvis and lumbar spine as she is having the pain in her hips post fall. 10/22/2012 Appointment: Amy Cheung WPtel: [address] [place], [place] [phone] Other 10/22/2012 Patient Education: Patient Medication Summary Completed 10/22/2012 Appointment: Amy Cheung WPtel: [address] [place], [place] [phone] Follow up 09/30/2012 Visit Plan: Hypertension - well controll ed - continue with current medications, continue with no added salt diet. Pt has been encouraged to exercise daily.The pt has been advised to call the [...] less controlled. 08/21/2012 Appointment: Amy Cheung WPtel: [facility]8 [facility] Follow up 08/21/2012 Patient Education: Patient Medication Summary Completed 08/21/2012 Patient Education: Hypertension Completed 08/21/2012 Visit Plan: Diabetes Mellitus - controll ed - per recent FSBS reports. I have [...] glucose readings are starting to become less controlled.Depression - spousal dysfunction - recommended for Pat to approach Angel about sounseling and give him space to start improving his behaviors so that she can [facility] an [facility] and change [facility]. No change to Pat's medications today. Time based documentation -I spent over 40 minutes with the patient in discussion of the disease process, expected course, and overall prognosis for the patient's disease state. The patient/family expressed understanding. 07/17/2012 Appointment: Amy Cheung WPtel: [phone] [facility] Follow up 07/17/2012 Patient Education: Patient Medication Summary Completed 07/17/2012 Visit Plan: Hypertension - well controll ed - continue with current medications, continue with no added salt diet. Pt has been encouraged to exercise daily.The pt has been advised to call the office if there are any acute concerns about change in blood pressure readings at home.Depression - pt states that she has a lot of "stress" but did not have time to discuss all of the issues today. 2011 Appointment: Amy Cheung WPtel: [phone] [facility] [facility] 07/08/2012 Patient Education: Patient Medication Summary Completed 07/08/2012 Patient Education: Hypertension Completed 07/08/2012 Visit Plan: Diabetes Mellitus - controll ed - per recent FSBS reports. I have [...] diet. Pt has been encouraged to exercise daily.The pt has been advised to call the office if there are any acute concerns about change in blood pressure readings at home. Hyperlipidemia - pt needs to have labs checked. 2011 Appointment: Amy Cheung WPtel: [address] [place] [address] Other 06/09/2012 Patient Education: Patient Medication Summary Completed 06/09/2012 Patient Education: High Blood Pressure: Essential Hypertension Completed 06/09/2012 Visit Plan: Sinusitis - Pt has acute inf ection - pain in face, maxillary region, Pt informed to use decongestant, RX given to patient, sinus rinses also recommended. Call if symptoms do not show improvement. 02/12/2012 Appointment: Amy Cheung WPtel: [address] [place] [address] Other 02/12/2012 Patient Education: Patient Medication Summary Completed 02/12/2012 Visit Plan: Sinusitis - Pt has acute in fection - pain in face, maxillary region, Pt informed to use decongestant, RX given to patient, sinus rinses also recommended. Call if symptoms do not show improvement.ciprofloxacin 500 mg bid x10 daysRecommended pt to talk to her surgeon about her hemorroids - the bands appear to be gone, but the hemorrhoid is enlarged and painful. She is to continue to use the hemorrhoid cream as directed by ehr surgeon and I have recommended that she us a pad over the hemorrhoid to keep the medication in place. 02/05/2012 Appointment: Amy Cheung WPtel: [facility]4 [address] Other 02/05/2012 Patient Education: Patient Medication Summary Completed 02/05/2012 Visit Plan: Sinusitis - Pt has acute inf ection - pain in face, maxillary region, Pt informed to use decongestant, RX given to patient, sinus rinses also recommended. Call if symptoms do not show improvement.DX sinusitis - discussed expected course with the patient, pt advised to call for worsening symptoms, or lack of improvement on prescribed treatment course.Singulair samples-10mg po daily. Call if you allergy symptosm do not improve, or if any worse. Check your [facility] labs at [facility]-we will call you with the results. Allergies - chronic - recommended pt to use allergy medication as prescribed. Pt has been counseled as the the appropriate use of the medication. Pt to call if allergy symptoms are not controlled with the medication.Dysuria - UA negative 11/14/2011 Appointment: Amy Cheung WPtel: [address] Other 11/14/2011 Appointment: Amy Cheung WPtel: [address] [place] [address] Other 11/14/2011 Patient Education: Patient Medication Summary Completed 11/14/2011 Visit Plan: Diabetes Mellitus - controll ed - per recent FSBS reports. I have [...] glucose readings are starting to become less controlled.URI/FLU - sent pt for Influenza swab and will call out RX for appropriate treatment, if flu is +, will call out tamiflu, if not +, then will call out antibiotics. Cough - RX for phenergan with codeine given to patient today. 10/08/2011 Appointment: Amy Cheung WPtel: [facility] Other 10/08/2011 Patient Education: Patient Medication Summary Completed 10/08/2011 Visit Plan: Constipation - uncontrolled - I have discussed with the patient the need for adequate fiber and water intake to facilitate soft, easily passed stools. The pt noted understanding of our conversation.Pt advised to start on benefiber daily, if it does not improve, then start on miralax.Pt has been advised that due to her current severe constipation, she may take colace for thr next two days to liberate her constipation.Persistance sinusitis- levaquin rx called for pt. Cerumen Impaction - The impacted cerumen was removed with the use of the ear currette. The patient tolerated the procedure without incident and had improvement in hearing.The wax was removed by the practicioner due to the wax being more complicated to remove, and staff was needed to assit the removal of the wax by holding the ear, and keepig patient stabilized during the removal process. 08/28/2011 Appointment: Amy Cheung WPtel: [address] [place], [place] [id number] Other 08/28/2011 Patient Education: Patient Medication Summary Completed 08/28/2011 Visit Plan: Sinusitis - Pt has acute inf ection - pain in face, maxillary region, Pt informed to use decongestant, RX given to patient, sinus rinses also recommended. Call if symptoms do not show improvement.Pt has been advised to start on mucinex twice daily - for the first 3 days take 1200mg twice daily, then back down to 600mg twice daily.Pt is to use vaseline in the nose to keep it moist - for the next 5 days, then use as needed if the nose is dry and bleeding when blowing the nose.Cerumen impaction -too dry to be removed at this time. Pt has been advised to use sweet oil in the ears at bedtime nightly for the next week, then will attempt to remove the cerumen at her appt next week.Cough - use prn cough medication. 08/23/2011 Patient Education: Patient Medication Summary Completed 08/23/2011 Visit Plan: Hypertension - well controll ed - continue with current medications, continue with no added salt diet. Pt has been encouraged to exercise daily.The pt has been advised to call the [...] and to assure normal liver response to medications.PT HAS BEEN INSTRUCTED TO RESTART HER LIPITOR AND TRICOR.PT IS ALSO TO RESTART HER Fish oil.Depression/ Anxiety / Peripheral Neuropathy - I AGREE WITH THE ONCOLOGIST THAT DECREASING THE EFFEXOR TO OFF AND DECREASING THE NEURONTIN TO OFF IS A GOOD IDEA IF WE CAN COUPLE THAT WITH STARTING ON A MEDICATION THAT WILL HAVE DUAL EFFECTS ON THE DIFFERENT DISEASES.DM - controlled per pt report - continue to monitor - bring in readings. 07/24/2011 Appointment: Amy Cheung WPtel: [id number] Other 07/24/2011 Patient Education: Patient Medication Summary Completed 07/24/2011 Patient Education: High Blood Pressure: Essential Hypertension Completed 07/24/2011 Visit Plan: Abdominal pain - discussed n eed to keep stool soft, keep cleared of feces to prevent constipation and large bowel movements which may be leading to anal fissures.Hematochezia - discussed investigation plan with the patient, she may need to see surgeon for consideration of colonoscopy or other procedure.Back pain - UA negative - recommended exercises and heat to lower back. 2010 Appointment: Amy Cheung WPtel: [id number] Other 06/19/2011 Patient Education: Patient Medication Summary Completed 06/19/2011 Visit Plan: Diabetes Mellitus - controll ed - per recent FSBS reports. I have [...] and benefits of treament with the above medications.Peripheral neuropathy- continue with gabapentin, may increase dose to three times a day, then increase to two pills bid and may increase up to 300mg tid if needed for neuropathic symptoms. 06/05/2011 Appointment: Amy Cheung WPtel: [id number] Other 06/05/2011 Patient Education: Patient Medication Summary [...] warm water today . Diabetes Mellitus - Uncontrolled - per [...] of spouse - continue with current treatment. I sent prescriptions to [facility] for the following medications: LOSARTAN 25MG [...] allow for greater blood glucose control. . Bruising and pain post fall- with [...] in blood pressure readings at home. . Hyperlipidemia - pt has been counseled [...] a copy of this note to her Director Apparel - Dr. Kraus as he will ultimately [...] home, bring in copy to clinic. . Constipation - unc ontrolled - I [...] any worse. Check your thyroid labs at [facility]-we will call you with the results. [...] any worse. Check your thyroid labs at [facility]-we will call you with the results. [...]
--- OUTSIDE RECORDS SUMMARY | 2019-08-12 23:00 | XMS REPORT | CCD ---
Author Author Veronica Cheung Organization Amy Cheung MD, [facility] Address [address] [place] [address] Phone Care Team Providers Care Cuff Stitcher Name Role Phone PP Unavailable CCM Unavailable Summary Purpose Interface Exchange Insurance Providers Payer name Policy type / Coverage type Covered alliance party ID Effective Begin Date Effective End Date WPS Medicare Part B Medicare Part B [id number] Unknown GEHA Medicare Part B [id number] Unknown Family history Father Diagnosis Age At [...] Codes Condition Status Onset Date Resolved Date Gastro-esophageal re flux disease without esophagitis ICD-9: [...] Condition Codes Effectiv e Dates Condition Status Gastro-esophageal re flux disease without esophagitis ICD-9: [...] Date Stop Date Sta tus Fill Instructions furosemide 40 mg tablet RxNorm: 149132 TAKE 1 TABLET DAILY 12/01/2018 08/27/2019 Active Effexor XR 75 mg cap alma,extended release RxNorm: 905601 1 Capsule(s) PO daily 09/16/2018 09/10/2019 Ac tive levothyroxine 25 mcg tablet RxNorm: 822826 Tablet(s) TAKE 1 TABL ET DAILY 08/26/2018 02/21/2019 Ac tive montelukast 10 mg ta blet RxNorm: 673288 TAKE 1 TABLET DAILY 07/21/2018 07/15/2019 Active Augmentin 500 mg-125 mg tablet RxNorm: 763904 1 Tablet(s) PO TID 05/27/2018 05/26/2018 Inactive Augmentin 500 mg-125 mg tablet RxNorm: 604293 1 Tablet(s) PO TID 05/27/2018 06/02/2018 Inactive Kenalog 40 mg/mL elizabeth pension for injection RxNorm: 0242305 1 Milliliter(s) Inj 05/26/2018 05/26/2018 In active pilocarpine 5 mg tablet RxNorm: 8085010 Tablet(s) TAKE 4 TABLETS DAILY 04/22/2018 07/15/2019 Ac tive Trulicity 1.5 mg/0.5 mL subcutaneous pen injector RxNorm: 8035809 INJECT 0.5ML SUBCUTANEOUSLY EVERY WEEK 02/24/2018 04/29/2019 Active levothyroxine 25 mcg tablet RxNorm: 354826 TAKE 1 TABLET DAILY 02/13/2018 08/11/2018 Inactive mesalamine 800 mg ta blet,delayed release RxNorm: 928845 TAKE 1 TABLET TWICE A DAY 12/10/2017 12/04/2018 Ac tive metformin 500 mg tablet RxNorm: 574525 1.5 Tablet(s) PO BID 11/25/2017 11/19/2018 Inactive levothyroxine 25 mcg tablet RxNorm: 303549 TAKE 1 TABLET DAILY 11/19/2017 02/12/2018 Inactive Nexium 40 mg capsule ,delayed release RxNorm: 262571 TAKE 1 CAPSULE TWICE DAILY 11/15/2017 11/09/2018 In active Effexor XR 75 mg cap alma,extended release RxNorm: 049467 1 Capsule(s) PO daily 10/14/2017 09/15/2018 In active Bactroban 2 % topica l cream RxNorm: 651734 1 Application TOP TID 09/18/2017 09/27/2017 Inactive nystatin 100,000 uni t/mL oral suspension RxNorm: 334730 5 Milliliter(s) PO TI D 09/18/2017 09/27/2017 In active oxazepam 10 mg capsule RxNorm: 512556 1 Capsule(s) PO TID as needed anxiety 09/02/2017 02/28/2018 In active fluticasone 50 mcg/a ctuation nasal spray,suspension RxNorm: 8248876 [place] USE ONE SPRAY IN EACH NOSTRIL TWICE A DAY 08/29/2017 12/26/2017 Inactive oxazepam 10 mg capsule RxNorm: 880820 1 Capsule(s) PO TID as needed anxiety 08/29/2017 09/01/2017 In active furosemide 40 mg tablet RxNorm: 750856 TAKE 1 TABLET DAILY 08/26/2017 08/20/2018 Inactive pilocarpine 5 mg tablet RxNorm: 3551211 TAKE 4 TABLETS DAILY 08/26/2017 04/21/2018 Inactive metformin 500 mg tablet RxNorm: 138438 TAKE 1 TABLET TWICE A DAY 08/20/2017 11/24/2017 Inactive Claritin-D 12 Hour 5 mg-120 mg tablet,extended release RxNorm: 6897815 Tablet(s) TAKE ONE (1) TABLET BY MOUTH TWICE DAILY 07/29/2017 09/26/2017 Inactive fluticasone 50 mcg/a ctuation nasal spray,suspension RxNorm: 9634773 [place]man USE ONE SPRAY IN EACH NOSTRIL TWICE A DAY 07/25/2017 07/24/2017 Inactive fluticasone 50 mcg/a ctuation nasal spray,suspension RxNorm: 2849654 [place] USE ONE SPRAY IN EACH NOSTRIL TWICE A DAY 07/25/2017 08/28/2017 Inactive fluticasone 50 mcg/a ctuation nasal spray,suspension RxNorm: 8372857 [place] USE ONE SPRAY IN EACH NOSTRIL TWICE A DAY 06/04/2017 07/24/2017 Inactive montelukast 10 mg ta blet RxNorm: 917536 TAKE 1 TABLET DAILY 06/03/2017 05/28/2018 Inactive levothyroxine 25 mcg tablet RxNorm: 659412 TAKE 1 TABLET DAILY 05/13/2017 11/08/2017 Inactive Voltaren 1 % topical gel RxNorm: 302126 2 Gram(s) TOP QID 05/02/2017 2017 Inactive nystatin 100,000 uni t/mL oral suspension RxNorm: 939759 5 Milliliter(s) PO QI D 03/29/2017 04/11/2017 In active Diflucan 150 mg tablet RxNorm: 057384 1 Tablet(s) PO daily 03/29/2017 05/01/2017 Inactive Trulicity 1.5 mg/0.5 mL subcutaneous pen injector RxNorm: 7054843 INJECT 0.5ML SUBCUTANEOUSLY EVERY WEEK 02/28/2017 01/29/2018 Inactive levothyroxine 25 mcg tablet RxNorm: 846343 1 Tablet(s) PO daily 11/19/2016 11/18/2016 Inactive levothyroxine 25 mcg tablet RxNorm: 298092 1 Tablet(s) PO daily 11/19/2016 05/12/2017 Inactive Claritin 10 mg tablet RxNorm: 462790 1 Tablet(s) PO daily 11/07/2016 11/06/2016 Inactive Claritin 10 mg tablet RxNorm: 611014 1 Tablet(s) PO daily 11/07/2016 12/06/2016 Inactive Zithromax Z-Ankit 250 mg tablet RxNorm: 942770 1 Tablet(s) PO UD 11/07/2016 05/01/2017 Inactive oxazepam 10 mg capsule RxNorm: 901822 1 Capsule(s) PO TID as needed anxiety 11/01/2016 12/30/2016 In active Nexium 40 mg capsule ,delayed release RxNorm: 073629 1 Capsule(s) PO BID 10/25/2016 10/19/2017 In active Claritin-D 12 Hour 5 mg-120 mg tablet,extended release RxNorm: 4754194 Tablet(s) TAKE ONE (1) TABLET BY MOUTH TWICE DAILY 10/25/2016 12/23/2016 Inactive mesalamine 800 mg ta blet,delayed release RxNorm: 466506 1 Tablet(s) PO BID 09/18/2016 09/17/2016 In active mesalamine 800 mg ta blet,delayed release RxNorm: 121395 1 Tablet(s) PO BID 09/18/2016 06/14/2017 In active Effexor XR 75 mg cap alma,extended release RxNorm: 422228 1 Capsule(s) PO daily 08/30/2016 08/24/2017 In active metformin 500 mg tablet RxNorm: 776332 1 Tablet(s) PO BID 08/17/2016 08/11/2017 Inactive oxazepam 10 mg capsule RxNorm: 233420 1 Capsule(s) PO TID as needed anxiety 08/17/2016 10/15/2016 In active Claritin-D 12 Hour 5 mg-120 mg tablet,extended release RxNorm: 9355217 TAKE ONE (1) TABLET BY MOUTH TWICE DAILY... 08/16/2016 10/24/2016 Inactive furosemide 40 mg tablet RxNorm: 567127 1 Tablet(s) daily TAKE 1 TABLET DAILY 08/14/2016 08/08/2017 In active Effexor XR 75 mg cap alma,extended release RxNorm: 041316 1 Capsule(s) PO daily 08/14/2016 08/29/2016 In active pilocarpine 5 mg tablet RxNorm: 6218498 4 Tablet(s) PO daily TAKE 4 TABLETS YARI Y 08/14/2016 08/08/2017 In active metoclopramide 5 mg tablet RxNorm: 728719 1/2 to 1 Tablet(s) PO TID for nause and GI dysmotility 07/02/2016 11/14/2016 Inactive Effexor XR 75 mg cap alma,extended release RxNorm: 207882 1 Capsule(s) PO daily 07/02/2016 08/13/2016 In active metformin 500 mg tablet RxNorm: 122416 1/2 TABLET(S) PO BID X2 WEEKS THEN INCRE ASE TO 1 TABLET PO BID THEREAFTER 06/26/2016 08/16/2016 Inactive 30 day supply Claritin-D 12 Hour 5 mg-120 mg tablet,extended release RxNorm: 2199958 1 Tablet(s) PO BID 06/18/2016 08/15/2016 Inactive montelukast 10 mg ta blet RxNorm: 466443 1 Tablet(s) PO daily 06/13/2016 06/02/2017 Inactive metformin 500 mg tablet RxNorm: 533380 1/2 Tablet(s) PO BID x2 weeks then incre ase to 1 Tablet PO BID thereafter 06/07/2016 06/06/2016 Inactive 30 day supply metformin 500 mg tablet RxNorm: 543077 1/2 Tablet(s) PO BID x2 weeks then incre ase to 1 Tablet PO BID thereafter 06/07/2016 06/25/2016 Inactive 30 day supply Diflucan 150 mg tablet RxNorm: 705184 1 Tablet(s) PO daily 03/27/2016 04/02/2016 Inactive nystatin 100,000 uni t/mL oral suspension RxNorm: 924230 5 Milliliter(s) PO QI D 03/27/2016 04/05/2016 In active nystatin 100,000 uni t/mL oral suspension RxNorm: 960096 5 Milliliter(s) PO QI D 03/27/2016 03/26/2016 In active Diflucan 150 mg tablet RxNorm: 821704 1 Tablet(s) PO daily 03/27/2016 03/26/2016 Inactive Effexor XR 75 mg cap alma,extended release RxNorm: 262692 1 Capsule(s) PO daily 03/26/2016 07/01/2016 In active this replaces the 150mg dose - we are we aning down her dose Trulicity 1.5 mg/0.5 mL subcutaneous pen injector RxNorm: 3904705 0.5 Milliliter(s) SQ QW 03/26/2016 02/27/2017 Inactive Trulicity 0.75 mg/0. 5 mL subcutaneous pen injector RxNorm: 9462606 1 injection SQ QW 03/13/2016 06/03/2016 Inactive Trulicity 0.75 mg/0. 5 mL subcutaneous pen injector RxNorm: 8497688 1/2 Milliliter(s) SQ QW 03/13/2016 03/12/2016 Inactive glyburide 2.5 mg tablet RxNorm: 236064 1/2 Tablet(s) PO BID 03/13/2016 03/25/2016 Inactive glyburide 2.5 mg tablet RxNorm: 309406 1/2 Tablet(s) PO BID 03/13/2016 03/12/2016 Inactive Claritin-D 12 Hour 5 mg-120 mg tablet,extended release RxNorm: 5531305 1 Tablet(s) PO BID 02/03/2016 10/24/2016 Inactive Synthroid 25 mcg tablet RxNorm: 656081 1 Tablet(s) PO daily 01/23/2016 11/18/2016 Inactive Synthroid 25 mcg tablet RxNorm: 879483 1 Tablet(s) PO daily 01/23/2016 01/22/2016 Inactive Claritin-D 12 Hour 5 mg-120 mg tablet,extended release RxNorm: 6990648 1 Tablet(s) PO BID 12/05/2015 05/31/2016 Inactive Effexor XR 150 mg ca psule,extended release RxNorm: 526473 TAKE 1 CAPSULE DAILY 12/05/2015 03/25/2016 In active Bydureon 2 mg/0.65 m L subcutaneous pen injector RxNorm: 8987436 2 Milligram(s) SQ QW 10/14/2015 03/12/2016 Inactive oxazepam 10 mg capsule RxNorm: 167069 1 Capsule(s) PO TID PRN as needed anxiet y 10/14/2015 04/10/2016 In active Nexium 40 mg capsule ,delayed release RxNorm: 427952 1 Capsule(s) BID TAKE 1 CAPSULE DAILY 10/14/2015 10/07/2016 Inactive this is a new RX - fill the twice daily dose instead of once daily dose Effexor XR 150 mg ca psule,extended release RxNorm: 554227 1 Capsule(s) PO daily TAKE 1 CAPSULE DAILY 10/03/2015 03/25/2016 Inactive pilocarpine 5 mg tablet RxNorm: 2679047 4 Tablet(s) PO daily TAKE 4 TABLETS YARI Y 08/09/2015 02/04/2016 In active pilocarpine 5 mg tablet RxNorm: 3633691 4 Tablet(s) PO daily TAKE 4 TABLETS YARI Y 07/26/2015 08/08/2015 In active Claritin-D 12 Hour 5 mg-120 mg tablet,extended release RxNorm: 7917157 1 Tablet(s) PO BID 05/02/2015 10/24/2016 Inactive furosemide 40 mg tablet RxNorm: 885680 1 Tablet(s) daily TAKE 1 TABLET DAILY 03/31/2015 03/24/2016 In active Nexium 40 mg capsule ,delayed release RxNorm: 470374 1 Capsule(s) BID TAKE 1 CAPSULE DAILY 03/31/2015 10/13/2015 Inactive this is a new RX - fill the twice daily dose instead of once daily dose Nexium 40 mg capsule ,delayed release RxNorm: 180149 1 Capsule(s) daily TA KE 1 CAPSULE DAILY 03/31/2015 03/30/2015 Inactive montelukast 10 mg ta blet RxNorm: 804134 1 Tablet(s) PO daily 03/31/2015 03/24/2016 Inactive Synthroid 25 mcg tablet RxNorm: 316966 1 Tablet(s) PO daily 01/17/2015 01/11/2016 Inactive Synthroid 25 mcg tablet RxNorm: 684108 1 Tablet(s) PO daily 01/03/2015 01/16/2015 Inactive Claritin-D 12 Hour 5 mg-120 mg tablet,extended release RxNorm: 5695517 1 Tablet(s) PO BID 12/29/2014 05/01/2015 Inactive Synthroid 25 mcg tablet RxNorm: 959210 1 Tablet(s) PO daily 12/20/2014 01/02/2015 Inactive Synthroid 25 mcg tablet RxNorm: 438240 1 Tablet(s) PO daily 12/07/2014 12/19/2014 Inactive Effexor XR 150 mg ca psule,extended release RxNorm: 033559 1 Capsule(s) PO daily TAKE 1 CAPSULE DAILY 11/30/2014 10/02/2015 Inactive Nexium 40 mg capsule ,delayed release RxNorm: 248387 Capsule(s) TAKE 1 CAP ALMA DAILY 11/30/2014 03/30/2015 In active fenofibric acid (cho line) 135 mg capsule,delayed release RxNorm: 370924 1 Capsule(s) PO daily 08/31/2014 08/25/2015 Inactive Bydureon 2 mg subcut aneous extended release suspension RxNorm: 9434695 1 injection SQ QW 07/21/2014 07/15/2015 Inactive fluticasone 50 mcg/a ctuation nasal spray,suspension RxNorm: 8650411 USE ONE SPRAY IN EACH NOSTRIL TWICE A DAY 07/06/2014 06/03/2017 Inactive Lipitor 10 mg tablet RxNorm: 108173 TAKE 1 TABLET AT BEDTIME 06/15/2014 10/13/2015 Inactive furosemide 40 mg tablet RxNorm: 612341 TAKE 1 TABLET DAILY 06/15/2014 03/30/2015 Inactive oxazepam 10 mg capsule RxNorm: 769358 1 Capsule(s) PO TID PRN as needed anxiet y 06/11/2014 12/07/2014 In active montelukast 10 mg ta blet RxNorm: 749238 1 Tablet(s) PO daily 05/25/2014 03/30/2015 Inactive oxazepam 10 mg capsule RxNorm: 059030 1 Capsule(s) PO TID PRN as needed anxiet y 05/06/2014 06/10/2014 In active montelukast 10 mg ta blet RxNorm: 153792 1 Tablet(s) PO daily 05/04/2014 05/24/2014 Inactive Nexium 40 mg capsule ,delayed release RxNorm: 023384 TAKE 1 CAPSULE DAILY 03/25/2014 11/29/2014 In active Nexium 40 mg capsule ,delayed release RxNorm: 200407 1 Capsule(s) PO daily TAKE 1 CAPSULE DAILY 03/02/2014 03/24/2014 Inactive oxazepam 10 mg capsule RxNorm: 221890 1 Capsule(s) PO TID PRN as needed 02/24/2014 04/24/2014 In active pilocarpine 5 mg tablet RxNorm: 3278456 TAKE 4 TABLETS DAILY 02/01/2014 07/25/2015 Inactive Claritin-D 12 Hour 5 mg-120 mg tablet,extended release RxNorm: 6679422 1 Tablet(s) PO BID 12/24/2013 10/24/2016 Inactive Effexor XR 150 mg ca psule,extended release RxNorm: 480937 1 Capsule(s) PO daily TAKE 1 CAPSULE DAILY 12/24/2013 11/29/2014 Inactive Klor-Con 10 mEq tabl et,extended release RxNorm: 895103 1 Tablet(s) PO daily 12/24/2013 10/13/2015 In active Bydureon 2 mg subcut aneous extended release suspension RxNorm: 9871083 1 injection SQ QW 12/07/2013 07/20/2014 Inactive Synthroid 25 mcg tablet RxNorm: 221783 1 Tablet(s) PO daily 12/02/2013 11/26/2014 Inactive Klor-Con 10 mEq tabl et,extended release RxNorm: 796233 1 Tablet(s) PO daily take 2 daily x 1 week then one daily thereafter 12/02/2013 12/23/2013 Inactive oxazepam 10 mg capsule RxNorm: 539872 1 Capsule(s) PO TID PRN 11/10/2013 01/08/2014 Inactive omeprazole 20 mg cap alma,delayed release RxNorm: 966055 1 Capsule(s) PO daily 11/10/2013 04/13/2014 In active Synthroid 50 mcg tablet RxNorm: 678298 Tablet(s) PO TAKE 1 TABLET DAILY 09/21/2013 12/01/2013 In active furosemide 40 mg tablet RxNorm: 608490 Tablet(s) PO TAKE 1 TABLET DAILY 09/21/2013 06/14/2014 In active Bydureon 2 mg subcut aneous extended release suspension RxNorm: 2420638 1 injection SQ QW 07/22/2013 12/06/2013 Inactive Bydureon 2 mg subcut aneous extended release suspension RxNorm: 3612362 1 injection SQ QW 07/14/2013 07/21/2013 Inactive Nexium 40 mg capsule ,delayed release RxNorm: 751375 Capsule(s) PO TAKE 1 CAPSULE DAILY 06/18/2013 11/09/2013 Inactive fluticasone 50 mcg/a ctuation nasal spray,suspension RxNorm: 142067 1 [place] NASAL BID 06/18/2013 07/05/2014 Inactive Lipitor 10 mg tablet RxNorm: 048601 Tablet(s) PO every other day 1 tablet qo d 06/18/2013 06/12/2014 In active losartan 25 mg tablet RxNorm: 872026 1 Tablet(s) PO daily 1 daily for blood p ressure 06/18/2013 10/15/2013 Inactive Toprol XL 25 mg tabl et,extended release RxNorm: 571169 1 Tablet(s) PO daily 06/18/2013 06/12/2014 In active Toprol XL 25 mg tabl et,extended release RxNorm: 601789 1 Tablet(s) PO daily 06/12/2013 06/17/2013 In active losartan 25 mg tablet RxNorm: 652418 1 Tablet(s) PO daily 1 daily for blood p ressure 06/12/2013 06/17/2013 Inactive Lipitor 10 mg tablet RxNorm: 585603 Tablet(s) PO every other day 1 tablet qo d 06/12/2013 06/17/2013 In active Effexor XR 150 mg ca psule,extended release RxNorm: 096949 1 Capsule(s) PO daily TAKE 1 CAPSULE DAILY 05/27/2013 12/23/2013 Inactive Bydureon 2 mg subcut aneous extended release suspension RxNorm: 0765280 1 injection SQ QW 05/20/2013 07/13/2013 Inactive Lipitor 10 mg tablet RxNorm: 297979 Tablet(s) PO every other day 1 tablet qo d 05/20/2013 06/11/2013 In active Pen Needle 32 x 5/32" RxNorm: Miscellaneous use with byetta pen 05/07/2013 09/03/2013 Inactive Effexor XR 150 mg ca psule,extended release RxNorm: 796156 1 Capsule(s) PO daily TAKE 1 CAPSULE DAILY 05/07/2013 05/26/2013 Inactive Pen Needle 32 x 5/32" RxNorm: Miscellaneous use with byetta pen 05/06/2013 05/06/2013 Inactive Pen Needle 32 x 5/32" RxNorm: Miscellaneous use with byetta pen 05/06/2013 05/05/2013 Inactive Byetta 5 mcg/0.02 mL per dose Sub-Q Pen Injector RxNorm: 329830 1 Unit Dose SQ BID 04/29/2013 05/19/2013 In active metformin ER 500 mg tablet,extended release 24 hr RxNorm: 573219 1 Tablet(s) PO BID 04/28/2013 06/19/2013 In active Byetta 5 mcg/0.02 mL per dose Sub-Q Pen Injector RxNorm: 559294 1 Unit Dose SQ BID 04/28/2013 04/27/2013 In active Byetta 5 mcg/0.02 mL per dose Sub-Q Pen Injector RxNorm: 270408 1 Unit Dose SQ BID 04/28/2013 04/28/2013 In active Influenza Virus Vacc ine 0.5 mL RxNorm: IM 04/27/2013 04/27/2013 Inactive glyburide 2.5 mg tablet RxNorm: 918213 1 Tablet(s) PO BID 04/27/2013 04/27/2013 Inactive glyburide 2.5 mg tablet RxNorm: 673856 1/2 Tablet(s) PO daily 04/13/2013 04/26/2013 Inactive glyburide 2.5 mg tablet RxNorm: 567542 1 Tablet(s) PO daily 04/09/2013 04/12/2013 Inactive metformin ER 500 mg tablet,extended release 24 hr RxNorm: 289381 2 Tablet(s) PO BID 04/09/2013 04/27/2013 In active Lipitor 10 mg tablet RxNorm: 466000 Tablet(s) PO TAKE 1 TABLET AT BEDTIME 03/17/2013 05/19/2013 In active losartan 25 mg tablet RxNorm: 684009 1 Tablet(s) PO daily 02/12/2013 06/11/2013 Inactive montelukast 10 mg ta blet RxNorm: 077264 1 Tablet(s) PO daily 02/09/2013 02/08/2013 Inactive montelukast 10 mg ta blet RxNorm: 667436 1 Tablet(s) PO daily 02/09/2013 02/03/2014 Inactive losartan 25 mg tablet RxNorm: 580683 1 Tablet(s) PO daily 02/09/2013 02/11/2013 Inactive losartan 25 mg tablet RxNorm: 030576 1 Tablet(s) PO daily 01/26/2013 02/08/2013 Inactive Effexor XR 150 mg ca psule,extended release RxNorm: 736292 Capsule(s) PO TAKE 1 CAPSULE DAILY 12/24/2012 05/06/2013 Inactive metformin ER 500 mg tablet,extended release 24 hr RxNorm: 651304 Tablet(s) PO TAKE 2 TABLETS TWICE A DAY 12/24/2012 04/08/2013 Inactive pilocarpine 5 mg tablet RxNorm: 0528582 Tablet(s) PO TAKE 4 TABLETS DAILY 12/24/2012 01/31/2014 In active levofloxacin 500 mg tablet RxNorm: 812178 1 Tablet(s) PO daily 12/15/2012 12/19/2012 Inactive Nexium 40 mg capsule ,delayed release RxNorm: 303241 Capsule(s) PO daily T MILO 1 CAPSULE DAILY 11/03/2012 06/17/2013 Inactive Claritin-D 12 Hour 5 mg-120 mg tablet,extended release RxNorm: 0897435 1 Tablet(s) PO BID 10/29/2012 10/23/2013 Inactive TAKE 1 TABLET BY MOUTH TWICE DAILY fluticasone 50 mcg/a ctuation nasal spray,suspension RxNorm: 7656484 1 [place] NASAL BID 10/08/2012 06/17/2013 Inactive Claritin-D 12 Hour 5 mg-120 mg tablet,extended release RxNorm: 9992983 1 Tablet(s) PO BID 09/09/2012 2012 Inactive TAKE 1 TABLET BY MOUTH TWICE DAILY montelukast 10 mg ta blet RxNorm: 298199 1 Tablet(s) PO daily 08/20/2012 02/08/2013 Inactive Synthroid 50 mcg tablet RxNorm: 824319 Tablet(s) PO TAKE 1 TABLET DAILY 08/18/2012 09/20/2013 In active Nexium 40 mg capsule ,delayed release RxNorm: 629535 Capsule(s) PO TAKE 1 CAPSULE DAILY 08/18/2012 11/02/2012 Inactive furosemide 40 mg tablet RxNorm: 157544 Tablet(s) PO TAKE 1 TABLET DAILY 08/18/2012 09/20/2013 In active Klor-Con 10 mEq tabl et,extended release RxNorm: 561776 Tablet(s) PO TAKE 1 T ABLET DAILY 08/18/2012 12/01/2013 Inactive Xanax 0.5 mg tablet RxNorm: 040565 1 Tablet(s) PO Q6 PRN 07/17/2012 10/13/2015 Inactive Zithromax 250 mg tablet RxNorm: 597307 Tablet(s) PO 07/14/2012 11/10/2013 Inactive disp one z ankit fluticasone 50 mcg/a ctuation Nasal [place], Susp RxNorm: 6420651 1 [place] NASAL BID 06/27/2012 10/07/2012 In active Anusol-HC 25 mg Supp ository RxNorm: 2542517 1 Suppository RTL QD AY PRN 06/09/2012 01/04/2013 In active daily x 3 days then prnno longer than 10 days in row use Claritin-D 12 Hour 5 mg-120 mg tablet,extended release RxNorm: 4945066 1 Tablet(s) PO BID 05/22/2012 05/22/2012 Inactive TAKE 1 TABLET BY MOUTH TWICE DAILY Claritin-D 12 Hour 5 mg-120 mg tablet,extended release RxNorm: 2700734 Tablet(s) PO 05/12/2012 05/21/2012 In active TAKE 1 TABLET BY MOUTH TWICE DAILY fluticasone 50 mcg/a ctuation Nasal [place]man, Susp RxNorm: 5190515 1 [place] NASAL BID 05/06/2012 06/26/2012 In active Rocephin 500 mg Solu tion for Injection RxNorm: 2399141 Inj 01/1802/12/2012 Inactive metronidazole 500 mg Tab RxNorm: 977579 1 Tablet(s) PO TID 02/12/2012 02/18/2012 Inactive Kenalog 40 mg/mL Elizabeth p for Injection RxNorm: 2697069 Milliliter(s) Inj 02/12/2012 02/12/2012 In active fluticasone 50 mcg/a ctuation Nasal [place], Susp RxNorm: 9157958 1 [place] NASAL BID 02/12/2012 05/05/2012 In active cefdinir 300 mg Cap RxNorm: 484615 1 Capsule(s) PO BID 02/12/2012 02/21/2012 Inactive Effexor XR 150 mg ca psule,extended release RxNorm: 465477 1 Capsule(s) PO daily 12/17/2011 12/10/2012 In active metformin ER 500 mg tablet,extended release 24 hr RxNorm: 874048 2 Tablet(s) PO BID 12/17/2011 05/14/2012 In active pilocarpine 5 mg tablet RxNorm: 5330549 4 Tablet(s) PO daily 12/17/2011 03/15/2012 Inactive Singulair 10 mg Tab RxNorm: 550597 1 Tablet(s) PO daily 11/27/2011 08/19/2012 Inactive Nexium 40 mg capsule ,delayed release RxNorm: 156738 1 Capsule(s) PO daily 11/26/2011 03/24/2012 In active Claritin-D 12 Hour 5 mg-120 mg tablet,extended release RxNorm: 6780655 1 Tablet(s) PO BID 11/14/2011 05/11/2012 Inactive Claritin-D 12 Hour 5 mg-120 mg Tab RxNorm: 2450984 1 Tablet(s) PO BID 10/31/2011 11/13/2011 In active Claritin-D 12 Hour 5 mg-120 mg Tab RxNorm: 6759002 1 Tablet(s) PO BID 10/29/2011 2011 In active Claritin-D 12 Hour 5 mg-120 mg Tab RxNorm: 0493841 1 Tablet(s) PO BID 10/29/2011 10/30/2011 In active Claritin-D 24 Hour 1 0 mg-240 mg Tab RxNorm: 9111855 1 Tablet(s) PO daily 10/23/2011 2011 In active levofloxacin 500 mg Tab RxNorm: 491897 1 Tablet(s) PO daily 08/28/2011 09/03/2011 Inactive Nasonex 50 mcg/actua tion [place]man RxNorm: 323590 1 [place] NASAL BID 08/28/2011 11/25/2011 Inactive promethazine 25 mg/m L Injection RxNorm: 428159 1 Milliliter(s) Inj 08/23/2011 07/14/2013 Inactive glyburide 2.5 mg tablet RxNorm: 800111 1 Tablet(s) PO daily 08/23/2011 04/08/2013 Inactive Rocephin 500 mg Solu tion for Injection RxNorm: 3391556 1 Milliliter(s) Inj 08/23/2011 08/28/2011 In active Klor-Con 10 10 mEq t ablet,extended release RxNorm: 659589 1 Tablet(s) PO daily 08/06/2011 07/30/2012 In active Nexium 40 mg Capsule , delayed release RxNorm: 588037 1 Capsule(s) PO daily 08/06/2011 11/25/2011 In active furosemide 40 mg tablet RxNorm: 650065 1 Tablet(s) PO daily 08/06/2011 07/30/2012 Inactive Cymbalta 30 mg Cap RxNorm: 377526 1 Capsule(s) PO daily 07/26/2011 08/28/2011 Inactive Synthroid 50 mcg tablet RxNorm: 301742 Tablet(s) PO 06/21/2011 08/17/2012 Inactive TAKE 1 TABLET DAILY Neurontin 100 mg Cap RxNorm: 923102 2 Capsule(s) PO TID 06/19/2011 08/28/2011 Inactive ciprofloxacin 500 mg Tab RxNorm: 299722 1 Tablet(s) PO BID 06/19/2011 08/28/2011 Inactive Neurontin 100 mg Cap RxNorm: 253379 1 Capsule(s) PO QID 06/05/2011 06/18/2011 Inactive oxazepam 10 mg Cap RxNorm: 800582 1 Capsule(s) PO Q6 PRN 06/05/2011 10/02/2011 Inactive Influenza Virus Vacc ine 0.5 mL RxNorm: IM 06/05/2011 06/05/2011 Inactive EnteraGam 5 gram ora l powder packet RxNorm: 1 PO daily No S tart Date Active hydrocodone-acetamin ophen 5 mg-500 mg Tab RxNorm: 903642 1 Tablet(s) PO Q6 PRN No Start Date Active Centrum Ultra Women' s 18 mg-400 mcg Tab RxNorm: 1 Tablet(s) PO daily No Start Date Active Fish Oil 1,000 mg Cap RxNorm: 2 Capsule(s) PO BID No Start Date Active Zenpep 40,000-136,00 0-218,000 unit capsule,delayed release RxNorm: 5121377 1 Capsule(s) PO QID No Start Date Active mesalamine 4 gram/60 mL enema RxNorm: 485136 1 Milliliter(s) RTL d aily No Start Date Active Linzess 290 mcg capsule RxNorm: 6971379 1 Capsule(s) PO daily No Start Date Active aspirin 81 mg Cap, D elayed Release RxNorm: 079395 1 Capsule(s) PO daily No Start Date Active Vitamin B-12 1,000 m cg Tab RxNorm: 902170 2 Tablet(s) PO daily No Start Date Active Vitamin C With Darlyn Hips 1,000 mg Tab RxNorm: 469519 1 Tablet(s) PO daily No Start Date Active Lipitor 10 mg Tab RxNorm: 849916 1 Tablet(s) PO HS No Start Date 04/10/2011 Inactive Lipitor 20 mg Tab RxNorm: 203658 1 Tablet(s) PO HS No Start Date 08/28/2011 Inactive Zithromax 250 mg tablet RxNorm: 008151 Tablet(s) PO No Start Date 07/13/2012 Inactive disp one z ankit Effexor XR 150 mg 24 hr Cap RxNorm: 673395 1 Capsule(s) PO daily No Start Date 12/16/2011 Inactive Bydureon 2 mg/0.65 m L subcutaneous pen injector RxNorm: 4662046 Milliliter(s) SQ QW No Start Date 10/13/2015 Inactive furosemide 40 mg Tab RxNorm: 861043 1 Tablet(s) PO daily No Start Date 08/05/2011 Inactive Synthroid 25 mcg tablet RxNorm: 574841 1 Tablet(s) PO daily No Start Date 12/01/2013 Inactive Januvia 50 mg tablet RxNorm: 475221 1 Tablet(s) PO daily samples No Start Date 04/27/2013 Inactive Lipitor 10 mg tablet RxNorm: 429229 1 Tablet(s) PO daily No Start Date 03/16/2013 Inactive Crestor 10 mg tablet RxNorm: 556922 1 Tablet(s) PO QHS No Start Date 03/25/2016 Inactive Asacol HD 800 mg Tab RxNorm: 056297 2 Tablet(s) PO daily No Start Date 10/13/2015 Inactive pilocarpine 5 mg Tab RxNorm: 1447531 4 Tablet(s) PO daily No Start Date 12/16/2011 Inactive glyburide 2.5 mg Tab RxNorm: 880656 1 Tablet(s) PO BID No Start Date 08/22/2011 Inactive Claritin-D 24 Hour 1 0 mg-240 mg Tab RxNorm: 8510061 1 Tablet(s) PO daily No Start Date 10/22/2011 Inactive Vitamin D 1,000 unit Tab RxNorm: 431143 1 Tablet(s) PO daily No Start Date 10/13/2015 Inactive Tricor 145 mg Tab RxNorm: 189457 1 Tablet(s) PO daily No Start Date 10/14/2015 Inactive Zithromax Z-Ankit 250 mg tablet RxNorm: 460102 1 Tablet(s) PO UD No Start Date 11/06/2016 Inactive Synthroid 25 mcg tablet RxNorm: 822249 1 Tablet(s) PO daily No Start Date 05/01/2017 Inactive Claritin-D 12 Hour 5 mg-120 mg tablet,extended release RxNorm: 5834785 1 Tablet(s) PO BID No Start Date 12/23/2013 Inactive Singulair 10 mg Tab RxNorm: 354903 1 Tablet(s) PO daily No Start Date 11/26/2011 Inactive Calcium 600 + D(3) 6 00 mg (1,500)-200 unit Tab RxNorm: 168311 1 Tablet(s) PO daily No Start Date 10/13/2015 Inactive Lialda 1.2 gram tabl et,delayed release RxNorm: 323806 2 Tablet(s) PO daily No Start Date 09/17/2016 Inactive Effexor XR 150 mg 24 hr Cap RxNorm: 953517 1 Capsule(s) PO daily No Start Date 08/28/2011 Inactive aspirin 325 mg Tab RxNorm: 227565 1 Tablet(s) PO daily No Start Date 08/28/2011 Inactive Toprol XL 25 mg tabl et,extended release RxNorm: 412135 1 Tablet(s) PO daily No Start Date 06/11/2013 Inactive lisinopril 10 mg tablet RxNorm: 056419 1 Tablet(s) PO daily No Start Date 01/25/2013 Inactive Cymbalta 60 mg Cap RxNorm: 335475 1 Capsule(s) PO daily No Start Date 08/28/2011 Inactive Nexium 40 mg Cap RxNorm: 191822 1 Capsule(s) PO daily No Start Date 08/05/2011 Inactive dicyclomine 10 mg Cap RxNorm: 853621 1 Capsule(s) PO daily No Start Date 07/13/2013 Inactive Synthroid 50 mcg Tab RxNorm: 329099 1 Tablet(s) PO daily No Start Date 06/20/2011 Inactive metformin ER 500 mg 24 hr Tab RxNorm: 344309 2 Tablet(s) PO BID No Start Date 12/16/2011 Inactive Anusol-HC 25 mg Supp ository RxNorm: 1116012 1 Suppository RTL No Start Date 06/08/2012 Inactive daily x 3 days then prnno longer than 10 days in row use Medication Administered Medication Codes Instruc tions Start Date Status Kenalog 40 mg/mL suspension for injection RxNorm: 9820623 1Milliliter 05/26/2018 N o longer Active Influenza Virus Vaccine 0.5 mL RxNorm: 04/27/2013 No longer Active Rocephin 500 mg Solution for Injection RxNorm: 8057156 02/12/2012 No longer A ctive Kenalog 40 mg/mL Susp for Injection RxNorm: 4897578 Milliliter 02/12/2012 No longer Active Influenza Virus Vaccine 0.5 mL RxNorm: 06/05/2011 No longer Active Immunizations Vaccine Codes Date Status Influenza CVX: 141 05/02 completed Pneumococcal (Adult) CVX: 133 05/02/2017 completed Influenza CVX: 141 05/06 completed Influenza CVX: 141 04/27 completed Influenza CVX: 141 08/28 completed Influenza CVX: 141 06/05 completed Pneumococcal CVX: 33 completed Assessments Condition Codes Effectiv e Dates Gastro-esophageal reflux disease without esophagitis ICD-10: K21.9 [...] Visit Reason For Visit Effective Dates Notes cough 06/12/2018 cough 05/26/2018 diabetes mellitus 04/01/2018 [...] Code Item Item Code Result Date %Hba1C Qem552 % HbA1c 16712-8 6.6 % 04/01/2018 %Hba1C Zil655 Gluc Ave 143 mg/dL 04/01/2018 Lipid Ord30 CHOL 178 mg/dL 04/01/2018 Lipid Ord30 HDL 50.0 mg/dl 04/01/2018 Lipid Ord30 TRIG 221 mg/dL 04/01/2018 Lipid Ord30 LDL 84 mg/dL 04/01/2018 Lipid Ord30 C/HDL 3.6 Ratio 04/01/2018 %Hba1C Iuw217 % HbA1c 37510-6 6.7 % 11/25/2017 %Hba1C Vmx569 Gluc Ave 146 mg/dL 11/25/2017 Comp Metabolic Wxj824 NA 144 mEq/L 04/30/2017 Comp Metabolic Enb949 K 4.3 mEq/L 04/30/2017 Comp Metabolic Qst835 CL 105 mEq/L 04/30/2017 Comp Metabolic Xda873 CO2 29.0 mEq/L 04/30/2017 Comp Metabolic Vkx419 AN ION GAP 14 04/30/2017 Comp Metabolic Mlf039 GL UCOSE 109 mg/dL 04/30/2017 Comp Metabolic Rfz665 Cr eat 1.0 mg/dL 04/30/2017 Comp Metabolic Hyj740 eG FR 58 ml/min/1.73m2 04/30 Comp Metabolic Fmh201 BUN 17 mg/dL 04/30/2017 Comp Metabolic Wkx797 B/ C Ratio 17.3 Ratio 04/30/2017 Comp Metabolic Snl073 CA LCIUM 10.1 mg/dL 04/30/2017 Comp Metabolic Dho110 AL K PHOS 47 U/L 04/30/2017 Comp Metabolic Tys956 T(SGOT) 16 U/L 04/30/2017 Comp Metabolic Mnx427 AL T(SGPT) 16 U/L 04/30/2017 Comp Metabolic Wky841 BI LI T 0.4 mg/dL 04/30/2017 Comp Metabolic Fbj156 AL BUMIN 4.5 g/dL 04/30/2017 Comp Metabolic Tnq911 TP RO 6.7 g/dL 04/30/2017 Comp Metabolic Dyx327 GL OB 2.2 g/dL 04/30/2017 Comp Metabolic Ckl059 A/ G Ratio 2.0 Ratio 04/30/2017 Comp Metabolic Tlj451 Os mo 289 mOsmo 04/30/2017 Cbc With [...] 28.2 pg 04/30/2017 Cbc With Differential Ord2 Hand% 6.5 % 04/30/2017 Cbc With Differential Ord2 [...] 1.12 K/ul 04/30/2017 Cbc With Differential Ord2 Hand ABS# 0.2 K/ul 04/30/2017 Cbc With Differential Ord2 Eos ABS# 0.1 K/ul 04/30/2017 Cbc With Differential Ord2 Baso ABS# 0.0 K/ul 04/30/2017 %Hba1C Dpc368 % HbA1c 97313-1 6.7 % 04/30/2017 %Hba1C Mvz716 Gluc Ave 146 mg/dL 04/30/2017 Tsh Ord6 hTSH II 1.36 uIU/mL 04/30/2017 Lipid Ord30 CHOL 160 mg/dL 04/30/2017 Lipid Ord30 HDL 51.0 mg/dl 04/30/2017 Lipid Ord30 TRIG 195 mg/dL 04/30/2017 Lipid Ord30 LDL 70 mg/dL 04/30/2017 Lipid Ord30 C/HDL 3.1 Ratio 04/30/2017 Free T4 Tvp701 FREE T4 0.75 ng/dL 04/30/2017 Ferritin Ord22 FERRITIN 89.9 ng/mL 11/09/2016 Parathyroid Hormone Nbr464 PTH 36.20 pg/ml 11/09/2016 Tibc Ord40 Iron 75 ug/dl 11/08/2016 Tibc Ord40 UIBC 325 ug/dL 11/08/2016 Tibc Ord40 TIBC 400 ug/dL 11/08/2016 Tibc Ord40 Fe-%Sat 18.8 % 11/08/2016 Comp Metabolic Nyv410 NA 139 mEq/L 09/25/2016 Comp Metabolic Bii718 K 4.3 mEq/L 09/25/2016 Comp Metabolic Qlq791 CL 101 mEq/L 09/25/2016 Comp Metabolic Ger342 CO2 31.0 mEq/L 09/25/2016 Comp Metabolic Pjx136 AN ION GAP 11 09/25/2016 Comp Metabolic Nfr736 GL UCOSE 116 mg/dL 09/25/2016 Comp Metabolic Ear190 Cr eat 1.1 mg/dL 09/25/2016 Comp Metabolic Dxh507 eG FR 53 ml/min/1.73m2 09/25 Comp Metabolic Maj825 BUN 22 mg/dL 09/25/2016 Comp Metabolic Xiu835 B/ C Ratio 20.8 Ratio 09/25/2016 Comp Metabolic Khj738 CA LCIUM 10.3 mg/dL 09/25/2016 Comp Metabolic Fhh639 AL K PHOS 52 U/L 09/25/2016 Comp Metabolic Ijq319 T(SGOT) 16 U/L 09/25/2016 Comp Metabolic Qev776 AL T(SGPT) 17 U/L 09/25/2016 Comp Metabolic Uap706 BI LI T 0.3 mg/dL 09/25/2016 Comp Metabolic Iap151 AL BUMIN 4.7 g/dL 09/25/2016 Comp Metabolic Xak147 TP RO 6.9 g/dL 09/25/2016 Comp Metabolic Mww736 GL OB 2.2 g/dL 09/25/2016 Comp Metabolic Ajk984 A/ G Ratio 2.1 Ratio 09/25/2016 Comp Metabolic Dac441 Os mo 282 mOsmo 09/25/2016 Lipid Ord30 CHOL 182 mg/dL 09/25/2016 Lipid Ord30 HDL 55.0 mg/dl 09/25/2016 Lipid Ord30 TRIG 168 mg/dL 09/25/2016 Lipid Ord30 LDL 93 mg/dL 09/25/2016 Lipid Ord30 C/HDL 3.3 Ratio 09/25/2016 %Hba1C Ela630 % HbA1c 86638-4 7.0 % 09/25/2016 %Hba1C Vky142 Gluc Ave 154 mg/dL 09/25/2016 Free T4 Fkz877 FREE T4 0.80 ng/dL 09/25/2016 Cbc With [...] 28.3 pg 09/25/2016 Cbc With Differential Ord2 Hand% 8.2 % 09/25/2016 Cbc With Differential Ord2 [...] 1.29 K/ul 09/25/2016 Cbc With Differential Ord2 Hand ABS# 0.3 K/ul 09/25/2016 Cbc With Differential Ord2 Eos ABS# 0.0 K/ul 09/25/2016 Cbc With Differential Ord2 Baso ABS# 0.0 K/ul 09/25/2016 Tsh Ord6 hTSH II 1.01 uIU/mL 09/25/2016 Tsh Ord6 hTSH II 1.35 uIU/mL 06/04/2016 Comp Metabolic Lvx559 NA 135 mEq/L 06/04/2016 Comp Metabolic Yde681 K 3.8 mEq/L 06/04/2016 Comp Metabolic Cfc574 CL 99 mEq/L 06/04/2016 Comp Metabolic Taf708 CO2 30.0 mEq/L 06/04/2016 Comp Metabolic Zfl945 AN ION GAP 10 06/04/2016 Comp Metabolic Fph917 GL UCOSE 171 mg/dL 06/04/2016 Comp Metabolic Apd160 Cr eat 1.0 mg/dL 06/04/2016 Comp Metabolic Prq009 eG FR 59 ml/min/1.73m2 06/04 Comp Metabolic Ynx829 BUN 22 mg/dL 06/04/2016 Comp Metabolic Elf347 B/ C Ratio 22.4 Ratio 06/04/2016 Comp Metabolic Gku114 CA LCIUM 10.4 mg/dL 06/04/2016 Comp Metabolic Dts571 AL K PHOS 68 U/L 06/04/2016 Comp Metabolic Ibi349 T(SGOT) 22 U/L 06/04/2016 Comp Metabolic Bkk700 AL T(SGPT) 25 U/L 06/04/2016 Comp Metabolic Gsi520 BI LI T 0.4 mg/dL 06/04/2016 Comp Metabolic Paf967 AL BUMIN 4.5 g/dL 06/04/2016 Comp Metabolic Emm557 TP RO 7.0 g/dL 06/04/2016 Comp Metabolic Aoq994 GL OB 2.5 g/dL 06/04/2016 Comp Metabolic Piu661 A/ G Ratio 1.8 Ratio 06/04/2016 Comp Metabolic Qdb055 Os mo 277 mOsmo 06/04/2016 Cbc With [...] 29.1 pg 06/04/2016 Cbc With Differential Ord2 Hand% 7.9 % 06/04/2016 Cbc With Differential Ord2 [...] 1.58 K/ul 06/04/2016 Cbc With Differential Ord2 Hand ABS# 0.5 K/ul 06/04/2016 Cbc With Differential Ord2 Eos ABS# 0.1 K/ul 06/04/2016 Cbc With Differential Ord2 Baso ABS# 0.1 K/ul 06/04/2016 %Hba1C Bmh161 % HbA1c 83265-0 8.7 % 06/04/2016 %Hba1C Pss100 Gluc Ave 203 mg/dL 06/04/2016 Free T4 Ufj003 FREE T4 0.84 ng/dL 06/04/2016 Lipid Ord30 CHOL 111 mg/dL 06/04/2016 Lipid Ord30 HDL 51.0 mg/dl 06/04/2016 Lipid Ord30 TRIG 185 mg/dL 06/04/2016 Lipid Ord30 LDL 23 mg/dL 06/04/2016 Lipid Ord30 C/HDL 2.2 Ratio 06/04/2016 Microalbumin Nto948 Micr oAlb <0.7 mg/dL 06/04/2016 Comp Metabolic Cis766 NA 142 mEq/L 03/12/2016 Comp Metabolic Pry984 K 4.1 mEq/L 03/12/2016 Comp Metabolic Ack064 CL 103 mEq/L 03/12/2016 Comp Metabolic Mvs500 CO2 30.0 mEq/L 03/12/2016 Comp Metabolic Jbh543 AN ION GAP 13 03/12/2016 Comp Metabolic Rfq091 GL UCOSE 138 mg/dL 03/12/2016 Comp Metabolic Mto197 Cr eat 0.8 mg/dL 03/12/2016 Comp Metabolic Hpj667 eG FR 75 ml/min/1.73m2 03/12 Comp Metabolic Iil421 BUN 18 mg/dL 03/12/2016 Comp Metabolic Ekv552 B/ C Ratio 22.8 Ratio 03/12/2016 Comp Metabolic Uje425 CA LCIUM 9.8 mg/dL 03/12/2016 Comp Metabolic Mmr087 AL K PHOS 83 U/L 03/12/2016 Comp Metabolic Hgt853 T(SGOT) 15 U/L 03/12/2016 Comp Metabolic Ssc685 AL T(SGPT) 20 U/L 03/12/2016 Comp Metabolic Kvr617 BI LI T 0.4 mg/dL 03/12/2016 Comp Metabolic Zkb578 AL BUMIN 4.2 g/dL 03/12/2016 Comp Metabolic Lru312 TP RO 6.4 g/dL 03/12/2016 Comp Metabolic Ooo609 GL OB 2.2 g/dL 03/12/2016 Comp Metabolic Ger665 A/ G Ratio 1.9 Ratio 03/12/2016 Comp Metabolic Sqa500 Os mo 287 mOsmo 03/12/2016 %Hba1C Jpv269 % HbA1c 43295-0 7.2 % 03/12/2016 %Hba1C Hks104 Gluc Ave 160 mg/dL 03/12/2016 Comp Metabolic Crt253 NA 138 mEq/L 10/18/2015 Comp Metabolic Eiv003 K 4.1 mEq/L 10/18/2015 Comp Metabolic Yzd504 CL 97 mEq/L 10/18/2015 Comp Metabolic Pbv715 CO2 32.0 mEq/L 10/18/2015 Comp Metabolic Icn152 AN ION GAP 13 10/18/2015 Comp Metabolic Bvh385 GL UCOSE 145 mg/dL 10/18/2015 Comp Metabolic Kox313 Cr eat 1.1 mg/dL 10/18/2015 Comp Metabolic Wtg966 eG FR 50 ml/min/1.73m2 10/17 Comp Metabolic Tly566 BUN 23 mg/dL 10/18/2015 Comp Metabolic Ksq777 B/ C Ratio 20.4 Ratio 10/18/2015 Comp Metabolic Ssx482 CA LCIUM 10.3 mg/dL 10/18/2015 Comp Metabolic Zyz826 AL K PHOS 59 U/L 10/18/2015 Comp Metabolic Dvg886 T(SGOT) 17 U/L 10/18/2015 Comp Metabolic Ckv091 AL T(SGPT) 21 U/L 10/18/2015 Comp Metabolic Ljg988 BI LI T 0.4 mg/dL 10/18/2015 Comp Metabolic Tjj676 AL BUMIN 4.6 g/dL 10/18/2015 Comp Metabolic Vhq611 TP RO 7.1 g/dL 10/18/2015 Comp Metabolic Stc098 GL OB 2.5 g/dL 10/18/2015 Comp Metabolic Twz627 A/ G Ratio 1.9 Ratio 10/18/2015 Comp Metabolic Cbv794 Os mo 282 mOsmo 10/18/2015 Tsh Ord6 hTSH II 1.81 uIU/mL 10/18/2015 %Hba1C Urk249 % HbA1c 50322-3 7.3 % 10/18/2015 %Hba1C Oij653 Gluc Ave 163 mg/dL 10/18/2015 Iron Ord72 Iron 90 ug/dl 10/18/2015 Free T4 Rui459 FREE T4 0.75 ng/dL 10/18/2015 Cbc With [...] 29.0 pg 10/18/2015 Cbc With Differential Ord2 Hand% 6.8 % 10/18/2015 Cbc With Differential Ord2 [...] 1.93 K/ul 10/18/2015 Cbc With Differential Ord2 Hand ABS# 0.5 K/ul 10/18/2015 Cbc With Differential [...] Lipid Ord30 C/HDL 2.3 Ratio 10/18/2015 TSH 8448334 TSH 1.042 uIU/ML 12/24/2012 A1C HPLC 8366743 A1C HPLC 20926-7 7.6 % 12/24/2012 ESR 9127720 ESR 2 MM/HR 12/23/2012 CHEM 14 7288653 AST 20 U/L 12/23/2012 CHEM 14 8888246 ALT 24 IU/L 12/23/2012 CHEM 14 0638886 BUN 16 MG/DL 12/23/2012 CHEM 14 1812281 ALBUMIN 4.7 GM/DL 12/23/2012 CHEM 14 4848203 CHLORIDE 102 MMOL/L 12/23/2012 CHEM 14 20280221 BILI TOT 0.3 MG/DL 12/23/2012 CHEM 14 5973403 ALK PHOS 109 U/L 12/23/2012 CHEM 14 3179730 SODIUM 142 MMOL/L 12/23/2012 CHEM 14 6927105 CREATINI NE 0.93 MG/DL 12/23/2012 CHEM 14 7075805 CALCIUM 10.0 MG/DL 12/23/2012 CHEM 14 3644818 POTASSIUM 3.7 MMOL/L 12/23/2012 CHEM 14 2117308 PROT TOT 7.2 GM/DL 12/23/2012 CHEM 14 3021096 GLUCOSE 116 MG/DL 12/23/2012 CHEM 14 4203250 BICARB 32 MMOL/L 12/23/2012 CHEM 14 8318702 ANION GAP 8 MEQ/L 12/23/2012 GFR CALC 7789147 GFR AA >60 ML/MIN 12/23/2012 GFR CALC 4550827 GFR NON -AA 59.0L ML/MIN 3 CBC 6265029 WBC 5.5 10e9/L 12/23/2012 CBC 9439400 RBC 4.90 10e12/L 12/23/2012 CBC 7356386 HGB 14.1 g/dL 12/23/2012 CBC 7316079 HCT DET 42.4 % 12/23/2012 CBC 5689352 MCV 86.5 fL 12/23/2012 CBC 2299982 MCH 28.8 pg 12/23/2012 CBC 7021292 MCHC 33.3 g/dL 12/23/2012 CBC 8628164 PLT 320 10e9/L 12/23/2012 CBC 0777847 MPV 9.9 fL 12/23/2012 CBC 4622710 BRANDIE % 63.7 % 12/23/2012 CBC 6576873 LY % 24.6 % 12/23/2012 CBC 2138689 MON % 6.3 % 12/23/2012 CBC 5299181 EOS % 4.7 % 12/23/2012 CBC 4026001 BASO % 0.7 % 12/23/2012 CBC 4561878 RDW 15.0 % 12/23/2012 CBC 7267658 ABS BRANDIE 3.50 10e9/L 12/23/2012 CBC 5862687 ABS LYMPH 1.35 10e9/L 12/23/2012 CBC 7687504 ABS MONO 0.35 10e9/L 12/23/2012 CBC 6026296 ABS EOS 0.26 10e9/L 12/23/2012 CBC 2814596 ABS BASO 0.04 10e9/L 12/23/2012 CBC 8370497 RDW-SD 47.1 fL 12/23/2012 CRP 9886390 CRP 0.1 MG/DL 12/23/2012 URINALYSIS NONAUTO W/O SCOPE 03589 Specific Redig 1.005 DateTime(Free Text in ) URINALYSIS NONAUTO W/O SCOPE 43660 PH 7.5 DateTime(Free Mina t in ) URINALYSIS NONAUTO W/O SCOPE 48594 GLUCOSE NEG DateTime(Free Mina t in ) URINALYSIS NONAUTO W/O SCOPE 94940 Protein NEG DateTime(Free Mina t in ) URINALYSIS NONAUTO W/O SCOPE 43273 Blood NEG DateTime(Free Mina t in ) URINALYSIS NONAUTO W/O SCOPE 26812 Bilirubin NEG DateTime(Free Mina t in ) URINALYSIS NONAUTO W/O SCOPE 94590 Ketones NEG DateTime(Free Mina t in ) URINALYSIS NONAUTO W/O SCOPE 10768 Urobilinogen NEG DateTime(Free Text in ) URINALYSIS NONAUTO W/O SCOPE 14667 Nitrite NEG DateTime(Free Mina t in ) URINALYSIS NONAUTO W/O SCOPE 24713 Leukocytes NEG DateTime(Free Text in ) Review of Systems System Result Effective Dates Constitutional No night sweats 06/12/2018 Constitutional No [...] 02/12/2012 Neurologic paresthesia 0 02/12/2012 Neurologic weakness /01/2012 Constitutional No night sweats 02/05/2012 Constitutional No [...] clear 05/26/2018 None Full Exam - General 1995 Ears/Nose/Throat [...] atraumatic 06/12/2013 None Full Exam - General 1995 [...] atraumatic 05/20/2013 None Full Exam - General 1995 [...] nourished 10/22/2012 None Full Exam - General 1995 Eyes [...] Procedure Codes Date THER/PROPH/DIAG INJ SC/IM CPT-4: 87391 05/26/2018 TRIAMCINOLONE ACET I [place] NOS CPT-4: J3301 05/26/2018 FLU VAC NO PRSV 4 VA L 3 YRS+ CPT-4: 95574 05/02/2017 ADMIN INFLUENZA VIRU S VAC CPT-4: G0008 05/02/2017 ADMIN PNEUMOCOCCAL V ACCINE SNOMED CT: 16604438 CPT-4: G0009 05/02/2017 PNEUMOCOCCAL VACC [address]: 89934556 CPT-4: 27266 05/02/2017 FLU VAC NO PRSV 4 VA L 3 YRS+ CPT-4: 84535 05/06/2014 ADMIN PNEUMOCOCCAL V ACCINE SNOMED CT: 95111412 CPT-4: G0009 05/06/2014 PRESCRIP TRANSMIT A ERX SY CPT-4: G8553 06/12/2013 PRESCRIP TRANSMIT A ERX SY CPT-4: G8553 05/20/2013 ADMIN INFLUENZA VIRU S VAC CPT-4: G0008 04/27/2013 FLULAVAL VACC, 3 YRS & >, IM CPT-4: Q2036 04/27/2013 PRESCRIP TRANSMIT A ERX SY CPT-4: G8553 04/09/2013 PRESCRIP TRANSMIT A ERX SY CPT-4: G8553 01/26/2013 ROUTINE VENIPUNCTURE CPT-4: 18679 12/23/2012 PRESCRIP TRANSMIT A ERX SY CPT-4: G8553 06/09/2012 ROCEPHIN, PER 250 MG CPT-4: J0696 02/12/2012 TRIAMCINOLONE ACET I [place] NOS CPT-4: J3301 02/12/2012 PRESCRIP TRANSMIT A ERX SY CPT-4: G8553 02/12/2012 ROCEPHIN, PER 250 MG CPT-4: J0696 02/05/2012 URINALYSIS NONAUTO W /O SCOPE CPT-4: 84754 11/14/2011 REMOVE IMPACTED EAR WAX UNI CPT-4: 34224 08/28/2011 PRESCRIP TRANSMIT A ERX SY CPT-4: G8553 08/28/2011 ROCEPHIN, PER 250 MG CPT-4: J0696 08/23/2011 TRIAMCINOLONE ACET I [place] NOS CPT-4: J3301 08/23/2011 THER/PROPH/DIAG INJ SC/IM CPT-4: 65681 08/23/2011 PRESCRIP TRANSMIT A ERX SY CPT-4: G8553 08/23/2011 OCCULT BLOOD FECES CPT- 4: 73092 06/19/2011 URINALYSIS NONAUTO W /O SCOPE CPT-4: 59451 06/19/2011 PRESCRIP TRANSMIT A ERX SY CPT-4: G8553 06/19/2011 ADMIN INFLUENZA VIRU S VAC CPT-4: G0008 06/05/2011 FLULAVAL VACC, 3 YRS & >, IM CPT-4: Q2036 06/05/2011 Vital Signs Date Vital 06/12/2018 Blood Pressure 1: 142/68 Code: 8480-6 BMI: 30.0 Code: 80135-0 Heart Rate 1: 91 bpm Height: 5'3" SpO2: 96% Weight: 172 lbs 05/26/2018 Blood Pressure 1: 142/72 Code: 8480-6 BMI: 30.0 Code: 96912-1 Heart Rate 1: 92 bpm Height: 5'3" SpO2: 96% Weight: 172 lbs 04/01/2018 Blood Pressure 1: 120/58 Code: 8480-6 BMI: 29.1 Code: 99100-4 Heart Rate 1: 83 bpm Height: 5'3" Respiratory Rate: 18 bpm SpO2: 95% Weight: 167 lbs 11/25/2017 Blood Pressure 1: 128/58 Code: 8480-6 BMI: 29.8 Code: 52904-5 Heart Rate 1: 83 bpm Height: 5'3" SpO2: 99% Weight: 171 lbs 09/18/2017 Blood Pressure 1: 140/72 Code: 8480-6 BMI: 30.3 Code: 99638-8 Heart Rate 1: 99 bpm Height: 5'3" SpO2: 97% Weight: 174 lbs 05/02/2017 Blood Pressure 1: 122/64 Code: 8480-6 BMI: 29.5 Code: 07728-2 Heart Rate 1: 81 bpm Height: 5'3" SpO2: 97% Weight: 169 lbs 03/29/2017 Blood Pressure 1: 134/68 Code: 8480-6 BMI: 30.0 Code: 09838-8 Heart Rate 1: 89 bpm Height: 5'3" SpO2: 98% Weight: 172 lbs 11/15/2016 Blood Pressure 1: 148/72 Code: 8480-6 BMI: 29.5 Code: 69569-0 Heart Rate 1: 102 bpm Height: 5'3" SpO2: 98% Weight: 169 lbs 11/06/2016 Blood Pressure 1: 140/78 Code: 8480-6 BMI: 29.8 Code: 21867-6 Heart Rate 1: 100 bpm Height: 5'3" SpO2: 97% Weight: 171 lbs 08/01/2016 Blood Pressure 1: 128/56 Code: 8480-6 BMI: 30.3 Code: 35038-5 Heart Rate 1: 88 bpm Height: 5'3" SpO2: 97% Weight: 174 lbs 07/02/2016 Blood Pressure 1: 126/62 Code: 8480-6 BMI: 31.0 Code: 70716-8 Heart Rate 1: 101 bpm Height: 5'3" SpO2: 97% Weight: 178 lbs 06/04/2016 Blood Pressure 1: 136/72 Code: 8480-6 BMI: 31.4 Code: 86771-0 Heart Rate 1: 103 bpm Height: 5'3" SpO2: 98% Weight: 180 lbs 03/26/2016 Blood Pressure 1: 134/74 Code: 8480-6 BMI: 30.7 Code: 02895-6 Heart Rate 1: 93 bpm Height: 5'3" SpO2: 98% Weight: 176 lbs 11/23/2015 Blood Pressure 1: 128/77 Code: 8480-6 BMI: 30.2 Code: 72197-1 Heart Rate 1: 74 bpm Height: 5'3" SpO2: 96% Weight: 173 lbs 10/14/2015 Blood Pressure 1: 122/72 Code: 8480-6 BMI: 30.3 Code: 62363-1 Heart Rate 1: 76 bpm Height: 5'3" SpO2: 97% Weight: 174 lbs 03/31/2015 Blood Pressure 1: 140/68 Code: 8480-6 BMI: 30.0 Code: 37989-1 Heart Rate 1: 93 bpm Height: 5'3" SpO2: 94% Weight: 172 lbs 08/31/2014 Blood Pressure 1: 122/74 Code: 8480-6 BMI: 31.2 Code: 63596-8 Heart Rate 1: 76 bpm Height: 5'3" Weight: 179 lbs 08/10/2014 Blood Pressure 1: 138/62 Code: 8480-6 BMI: 31.0 Code: 63636-0 Heart Rate 1: 80 bpm Height: 5'3" Weight: 178 lbs 05/06/2014 BMI: 31.2 Code: 89208-5 Height: 5'3" Weight: 179 lbs 04/14/2014 Blood Pressure 1: 136/68 Code: 8480-6 BMI: 31.4 Code: 57470-2 Heart Rate 1: 74 bpm Height: 5'3" Weight: 180 lbs 11/10/2013 Blood Pressure 1: 102/50 Code: 8480-6 BMI: 30.7 Code: 42582-6 Heart Rate 1: 76 bpm Height: 5'3" Weight: 176 lbs 07/14/2013 Blood Pressure 1: 136/80 Code: 8480-6 BMI: 30.3 Code: 63623-9 Heart Rate 1: 70 bpm Height: 5'3" Weight: 174 lbs 06/12/2013 Blood Pressure 1: 142/82 Code: 8480-6 BMI: 30.9 Code: 88362-8 Heart Rate 1: 72 bpm Height: 5'3" Weight: 177 lbs 05/20/2013 Blood Pressure 1: 132/70 Code: 8480-6 BMI: 31.2 Code: 81023-4 Heart Rate 1: 88 bpm Height: 5'3" Weight: 179 lbs 04/09/2013 Blood Pressure 1: 136/70 Code: 8480-6 BMI: 31.0 Code: 48802-7 Heart Rate 1: 100 bpm Height: 5'3" Weight: 178 lbs 01/26/2013 Blood Pressure 1: 118/56 Code: 8480-6 BMI: 30.7 Code: 91958-7 Heart Rate 1: 87 bpm Height: 5'3" Weight: 176 lbs 12/23/2012 Blood Pressure 1: 136/76 Code: 8480-6 Heart Rate 1: 104 bpm Respiratory Rate: 20 bpm Weight: 178 lbs 12/15/2012 Blood Pressure 1: 150/82 Code: 8480-6 Heart Rate 1: 100 bpm Temperature: 36.7 (C) / 98.1 (F) Weight: 178 lbs 10/22/2012 Blood Pressure 1: 138/82 Code: 8480-6 BMI: 30.2 Code: 50671-6 Heart Rate 1: 100 bpm Height: 5'3" Weight: 173 lbs 08/21/2012 Blood Pressure 1: 136/70 Code: 8480-6 BMI: 30.6 Code: 77021-2 Heart Rate 1: 98 bpm Height: 5'3" Weight: 175 lbs 8 oz 07/17/2012 Blood Pressure 1: 152/68 Code: 8480-6 BMI: 29.9 Code: 27610-5 Heart Rate 1: 92 bpm Height: 5'3" [...] 1: 122/68 Code: 8480-6 BMI: 29.5 Code: 89110-7 Heart Rate 1: 96 bpm Height: 5'3" [...] 1: 130/72 Code: 8480-6 BMI: 30.4 Code: 68177-3 Heart Rate 1: 92 bpm Height: 5'3" Respiratory Rate: 16 bpm Weight: 174 lbs 8 oz 06/19/2011 Blood Pressure 1: 122/70 Code: 8480-6 BMI: 30.2 Code: 44833-1 Heart Rate 1: 104 bpm Height: 5'3" Weight: 173 lbs 06/05/2011 Blood Pressure 1: 100/50 Code: 8480-6 BMI: 29.6 Code: 77530-6 Heart Rate 1: 96 bpm Height: 5'3" Respiratory Rate: 16 bpm Weight: 170 lbs Functional Status No Functional Status data History of Present Illness Symptom Name Status Resu lt Effective Date Notes cough Location in the ro 06/12/2018 None cough Limitation on Activities does [...] ADA diet 05/02/2017 None hypertension Quality nadia abdi hypertension 05/02/2017 None hypertension Onset and Resolution [...] 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 depression Pertinent Findings anxiety 07/17/2012 None depression [...] Encounters Encounter Performer Loca tion Codes Date ([id number]) [id number] EST. P ATIENT, LEVEL III Diagnosis: Gastro-esophageal reflux disease without esophagitis[ICD10: K21.9] [facility] CPT-4: 15960 06/12/2018 ([id number]) 32761 EST. P ATIENT, LEVEL III Diagnosis: Gastro-esophageal reflux disease without esophagitis[ICD10: K21.9] Diagnosis: Cough[ICD10: R05] [facility] CPT-4: 37918 05/26/2018 ([id number]) 46274 EST. 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 P ATIENT, LEVEL IV Diagnosis: Type 2 diabetes mellitus with hyperglycemia[ICD10: E11.65] Diagnosis: Essential (primary) hypertension[ICD10: I10] Amy Cheung MD, [facility] CPT-4: 17415 11/25/2017 ([id number]) 14162 EST. P ATIENT, LEVEL IV Diagnosis: Type 2 diabetes mell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[ICD10: E11.9] Diagnosis: Mixed hyperlipidemia[ICD10: E78.2] Diagnosis: Candidal stomatitis[ICD10: B37.0] Amy Cheung MD, [facility] CPT-4: 74749 09/18/2017 ([id number]) 43471 EST. P ATIENT, LEVEL IV Diagnosis: Type 2 diabetes mell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[ICD10: E11.9] Diagnosis: Mixed hyperlipidemia[ICD10: E78.2] Diagnosis: Essential (primary) hypertension[ICD10: I10] Diagnosis: Encounter for immunization[ICD10: Z23] Amy Cheung MD, [facility] CPT-4: 60382 05/02/2017 ([id number]) 10066 EST. P ATIENT, LEVEL III Diagnosis: Candidal stomatitis[ICD10: B37.0] Riya Cheung MD, [facility] CPT- 4: 08892 03/29/2017 ([id number]) 56541 EST. P ATIENT, LEVEL IV Diagnosis: Essential (primary) hypertension[ICD10: I10] Diagnosis: Type 2 diabetes mell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[ICD10: E11.9] Amy Cheung MD, [facility] CPT-4: 84779 11/15/2016 80642 EST. PATIENT, LEVEL III Diagnosis: Other malaise[ICD10: R53.81] Diagnosis: Other fatigue[ICD10: R53.83] Diagnosis: Type 2 diabetes mellitus with hyperglycemia[ICD10: E11.65] Diagnosis: Essential (primary) hypertension[ICD10: I10] Diagnosis: Weakness[ICD10: R53.1] Mariana Cheung MD, [facility] CPT-4: 31979 11/06/2016 ([id number]) 19522 EST. P ATIENT, LEVEL III Diagnosis: Type 2 diabetes mellitus with hyperglycemia[ICD10: E11.65] Amy Cheung [facility] CPT-4: 63100 08/01/2016 ([id number]) 96343 EST. P ATIENT, LEVEL III Diagnosis: Type 2 diabetes mellitus with hyperglycemia[ICD10: E11.65] Diagnosis: Gastroparesis[ICD10: K31.84] Amy Cheung MD, [facility] CPT-4: 46954 07/02/2016 ([id number]) 63800 EST. P ATIENT, LEVEL IV Diagnosis: Type 2 diabetes mellitus with hyperglycemia[ICD10: E11.65] Diagnosis: Hypothyroidism, unspecified[ICD10: E03.9] Amy Cheung MD, [facility] CPT-4: 49543 06/04/2016 ([id number]) 15088 EST. P ATIENT, LEVEL IV Diagnosis: Type 2 diabetes mellitus with hyperglycemia[ICD10: E11.65] Diagnosis: Mixed hyperlipidemia[ICD10: E78.2] Diagnosis: Essential (primary) hypertension[ICD10: I10] Amy Cheung MD, [facility] CPT-4: 43206 03/26/2016 ([id number]) 05520 EST. P ATIENT, LEVEL III Diagnosis: Essential (primary) hypertension[ICD10: I10] Diagnosis: Adjustment disorder with mixed anxiety and depressed mood[ICD10: F43.23] Amy Cheung MD, [facility] CPT-4: 51247 11/23/2015 ([id number]) 04449 EST. P ATIENT, LEVEL IV Diagnosis: Type 2 diabetes mellitus with hyperglycemia[ICD10: E11.65] Diagnosis: Panic disorder [episodic paroxysmal anxiety] without agoraphobia[ICD10: F41.0] Diagnosis: Adjustment disorder with mixed anxiety and depressed mood[ICD10: F43.23] Diagnosis: Essential (primary) hypertension[ICD10: I10] Amy Cheung MD, [facility] CPT-4: 59108 10/14/2015 ([id number]) 61073 EST. P ATIENT, LEVEL IV Diagnosis: DIABETES TYPE II[ICD9: 250.00] Diagnosis: GENERALIZED ANXIETY DISEASE[ICD9: 300.02] Diagnosis: ESSENTIAL HYPERTENSION[ICD9: 401.9] Diagnosis: ESOPHAGEAL REFLUX[ICD9: 530.81] Amy Cheung MD, [facility] CPT-4: 94232 03/31/2015 ([id number]) 98717 EST. P ATIENT, LEVEL IV Diagnosis: DM W/O COMPLICATION TYPE II, UNCONTROLLED[ICD9: 250.02] Diagnosis: ESSENTIAL HYPERTENSION[ICD9: 401.9] Diagnosis: DEPRESSIVE DISORDER NEC[ICD9: 311] Diagnosis: GENERALIZED ANXIETY DISEASE[ICD9: 300.02] Amy Cheung MD, [facility] CPT-4: 96716 08/31/2014 ([id number]) 73249 EST. P ATIENT, LEVEL IV Diagnosis: ESSENTIAL HYPERTENSION[ICD9: 401.9] Diagnosis: DIABETES TYPE II[ICD9: 250.00] Diagnosis: Constipation - functional[ICD9: 564.09] Diagnosis: Abdominal pain[ICD9: 789.00] Amy Cheung MD, [facility] CPT-4: 26081 08/10/2014 ([id number]) 37627 EST. P ATIENT, LEVEL III Diagnosis: Flu vaccine need[ICD9: V04.81] Diagnosis: Neck pain[ICD9: 723.1] Diagnosis: Chronic allergic rhinitis[ICD9: 477.9] Amy Cheung MD, [facility] CPT-4: 15965 05/06/2014 ([id number]) 32060 EST. P ATIENT, LEVEL IV Diagnosis: DM W/O COMPLICATION TYPE II, UNCONTROLLED[ICD9: 250.02] Diagnosis: GENERALIZED ANXIETY DISEASE[ICD9: 300.02] Diagnosis: ESSENTIAL HYPERTENSION[ICD9: 401.9] Diagnosis: Neck pain[ICD9: 723.1] Amy Cheung MD, [facility] CPT-4: 27048 04/14/2014 ([id number]) 33454 EST. P ATIENT, LEVEL IV Diagnosis: ESSENTIAL HYPERTENSION[SNOMED: 13569850] Diagnosis: DIABETES TYPE II[SNOMED: 005708717] Diagnosis: Iliotibial band syndrome[ICD9: 728.89] Diagnosis: DEPRESSIVE DISORDER NEC[ICD9: 311] Diagnosis: GENERALIZED ANXIETY DISEASE[ICD9: 300.02] Amy Cheung MD, [facility] CPT-4: 43958 11/10/2013 ([id number]) 58519 EST. P ATIENT, LEVEL III Diagnosis: DIABETES TYPE II[SNOMED: 943359840] Amy Cheung MD, [facility] CPT- 4: 14099 07/14/2013 ([id number]) 07103 EST. P ATIENT, LEVEL IV Diagnosis: ESSENTIAL HYPERTENSION[SNOMED: 26299549] Diagnosis: DM W/O COMPLICATION TYPE II, UNCONTROLLED[SNOMED: 86935518] Amy Cheung MD, [facility] CPT-4: 42618 06/12/2013 ([id number]) 96888 EST. P ATIENT, LEVEL III Diagnosis: DIABETES TYPE II[SNOMED: 079897262] Amy Cheung MD, [facility] CPT- 4: 86397 05/20/2013 ([id number]) 02008 EST. P ATIENT, LEVEL IV Diagnosis: ESSENTIAL HYPERTENSION[SNOMED: 46851780] Diagnosis: HYPERLIPIDEMIA[ICD9: 272.4] Diagnosis: Type II diabetes mellitus, uncontrolled[SNOMED: 86180317] Amy Cheung MD, [facility] CPT-4: 11514 04/09/2013 ([id number]) 82808 EST. P ATIENT, LEVEL III Diagnosis: ESSENTIAL HYPERTENSION[SNOMED: 71748504] Diagnosis: ENCNTR LONG-RX USE NEC[ICD9: V58.69] Diagnosis: IMPACTED CERUMEN[ICD9: 380.4] Amy Cheung MD, [facility] CPT-4: 21779 01/26/2013 ([id number]) 36381 EST. P ATIENT, LEVEL IV Diagnosis: DIABETES TYPE II[SNOMED: 555513851] Diagnosis: ESSENTIAL HYPERTENSION[SNOMED: 41032313] Diagnosis: Polymyalgia[ICD9: 725] Amy Cheung MD, [facility] CPT-4: 56284 12/23/2012 ([id number]) 62216 EST. P ATIENT, LEVEL III Diagnosis: ACUTE MAXILLARY SINUSITIS[ICD9: 461.0] Diagnosis: COUGH[ICD9: 786.2] Amy Cheung MD, [facility] CPT-4: 36395 12/15/2012 ([id number]) 95884 EST. P ATIENT, LEVEL III Diagnosis: ANAL OR RECTAL PAIN[ICD9: 569.42] Diagnosis: Bruising[ICD9: 924.9] Diagnosis: Hip pain[ICD9: 719.45] Amy Cheung MD, [facility] CPT-4: 81820 10/22/2012 ([id number]) 85643 EST. P ATIENT, LEVEL IV Diagnosis: ESSENTIAL HYPERTENSION[SNOMED: 38611730] Diagnosis: DIABETES TYPE II[SNOMED: 086070036] Amy Cheung MD, [facility] CPT- 4: 41100 08/21/2012 ([id number]) 49585 EST. P ATIENT, LEVEL IV Diagnosis: DIABETES TYPE II[SNOMED: 883942228] Diagnosis: DEPRESSIVE DISORDER NEC[ICD9: 311] Amy Cheung MD, [facility] CPT- 4: 43968 07/17/2012 ([id number]) 31215 EST. P ATIENT, LEVEL III Diagnosis: ESSENTIAL HYPERTENSION[SNOMED: 23658313] Diagnosis: DEPRESSIVE DISORDER NEC[ICD9: 311] Amy Cheung MD, [facility] CPT- 4: 33836 07/08/2012 74550 EST. PATIENT, LEVEL IV Diagnosis: ESSENTIAL HYPERTENSION[SNOMED: 38098130] Diagnosis: DIABETES TYPE II[SNOMED: 656988636] Amy Cheung MD, [facility] CPT- 4: 01053 06/09/2012 ([id number]) 69948 EST. P ATIENT, LEVEL III Diagnosis: Acute sinusitis[ICD9: 461.9] Diagnosis: FEVER NOS[ICD9: 780.60] Amy Cheung MD, [facility] CPT-4: 84927 02/12/2012 ([id number]) 76655 EST. P ATIENT, LEVEL III Diagnosis: Otalgia of both ears[ICD9: 388.70] Diagnosis: Hemorrhoids[ICD9: 455.6] Diagnosis: Rectal or anal pain[ICD9: 569.42] Amy Cheung MD [facility] CPT-4: 08829 02/05/2012 ([id number]) 97109 EST. [facility] Diagnosis: Dysuria[ICD9: 788.1] Diagnosis: ACUTE MAXILLARY SINUSITIS[ICD9: 461.0] Diagnosis: Allergic rhinitis[ICD9: 477.9] Amy Cheung MD [facility] CPT-4: 44757 11/14/2011 ([id number]) 38398 EST. P ATIENT, LEVEL IV Diagnosis: DIABETES TYPE II[SNOMED: 477510934] Diagnosis: Cough[ICD9: 786.2] Diagnosis: FEVER NOS[ICD9: 780.60] Amy Cheung MD [facility] CPT-4: 29142 10/08/2011 20546 EST. PATIENT, LEVEL IV Diagnosis: OTHER CONSTIPATION[ICD9: 564.09] Diagnosis: IMPACTED CERUMEN[ICD9: 380.4] Diagnosis: Recurrent sinusitis[ICD9: 473.9] Amy Cheung MD [facility] CPT-4: 99845 08/28/2011 32952 EST. PATIENT, LEVEL IV Diagnosis: Neck pain, acute[ICD9: 723.1] Diagnosis: Cough[ICD9: 786.2] Diagnosis: Cerumen impaction[ICD9: 380.4] Amy Cheung MD [facility] CPT-4: 46766 08/23/2011 12486 EST. PATIENT, LEVEL IV Diagnosis: ESSENTIAL HYPERTENSION[SNOMED: 43381609] Diagnosis: HYPERLIPIDEMIA[ICD9: 272.4] Diagnosis: DIABETES TYPE II[SNOMED: 209845665] Diagnosis: DEPRESSIVE DISORDER NEC[ICD9: 311] Diagnosis: 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[ICD9: 357.7] Amy Cheung MD [facility] CPT-4: 39878 07/24/2011 12257 EST. PATIENT, LEVEL IV Diagnosis: Abdominal pain[ICD9: 789.00] Diagnosis: Hematochezia[ICD9: 578.1] Diagnosis: Back pain[ICD9: 724.5] [facility] CPT-4: 04656 06/19/2011 10056 EST. 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 The patient is to take medications as prescribed and call the office if the symptoms are not improving. Advised pt to use lactaid pills 06/12/2018 Appointment: Amy Cheung WPtel: [facility]7 [facility] (15 min) Moderate 06/12/2018 Appointment: Riya Sheikh WPtel: [facility]6 [phone] [facility] - Annual Wellness Visit 06/12/2018 Patient Education: Patient Medication Summary Completed 06/12/2018 Visit Plan: Esophageal Reflux - the patient has been counseled against excessive intake of caffeine, spicy foods, peppermint, and cinnamon - all of which can exacerbate esophageal reflux. The patient is to take medications as prescribed and call the office if the symptoms are not improving. Kuxws-dvtecjtgm-bbaxxzg injection today in the office -start claritin [...] less controlled. 04/01/2018 Appointment: [facility]el[phone] [place] (15 min) Moderate 04/01/2018 Patient Education: Patient Medication Summary Completed 04/01/2018 Patient Education: Patient Medication Summary Completed 03/31/2018 Appointment: [facility]el[phone] [place] (15 min) Moderate 01/15/2018 Visit Plan: [...] at home. 11/25/2017 Appointment: [facility]Ptel: [phone] [place] (15 min) Moderate 11/25/2017 Patient Education: [...] nystatin 09/18/2017 Appointment: Amy Cheung [facility]el: [phone] [...] shot today 05/02/2017 Appointment: [facility]el[phone] (15 min) Moderate 05/02/2017 Patient Education: Patient Medication Summary Completed 05/02/2017 Appointment: Amy Cheung WPtel: [phone] [facility] (15 min) Moderate 04/15/2017 Visit Plan: Thrush-discussed natura l and expected course of this diagnosis and to alert me if symptoms do not follow expected course, or if any worse. RX sent to patient's pharmacy. Patient verbalized understanding of plan. 03/29/2017 Appointment: [phone] [place] (30 min) Complex 03/29/2017 Patient Education: Patient Medication Summary Completed 03/29/2017 Patient Education: Obesity Completed 03/29/2017 Appointment: [facility]Ptel[phone] (15 min) Moderate 03/14/2017 Visit Plan: Diabetes [...] home. 11/15/2016 Appointment: Amy Cheung WPtel: [phone] [facility] (15 min) Moderate 11/15/2016 Patient Education: Patient Medication Summary Completed 11/15/2016 Appointment: Amy Cheung WPtel: [phone] [facility] (15 min) Moderate 11/07/2016 Visit Plan: [...] control. 11/06/2016 Appointment: Mar[facility] Issa [facility]el[phone] (30 min) Complex 11/06/2016 Patient Education: Patient Medication Summary Completed 11/06/2016 Patient Education: Patient Medication Summary Completed 09/19/2016 Patient Education: Patient Medication Summary Completed 08/22/2016 Care Plan: Comp Metabolic Pending 08/22/2016 Care Plan: %Hba1C she can have drawn anytime after 09/04/16 LOINC : 84168-7 Pending 08/22/2016 Visit Plan: Diabetes Mellitus - [...] clinic. 08/01/2016 Appointment: [facility]Ptel[phone] (15 min) Moderate 08/01/2016 Patient Education: Patient Medication Summary Completed 08/01/2016 Appointment: Amy Cheung [facility]Ptel: [phone] motility 07/02/2016 Appointment: Amy Cheung WPtel: [phone] [facility] (15 min) Moderate 07/02/2016 Patient Education: Patient [...] control. 06/04/2016 Appointment: [facility] Cheung [facility]el: [phone] [...] medications. 03/26/2016 Appointment: Amy Cheung WPtel: [phone] [facility] (15 min) Moderate 03/26/2016 Patient Education: Patient [...] Cheung WPtel: [phone] (15 min) Moderate 10/13/2015 Appointment: Amy Cheugn WPtel: [address] [place] [address] (15 min) Moderate 05/09/2015 Visit Plan: Diabetes [...] esophageal cancer. 03/31/2015 Appointment: Amy Cheung WPtel: [facility]5 [facility]66[facility] (15 min) Moderate 03/31/2015 Patient Education: Patient Medication Summary Completed 03/31/2015 Patient Education: Hypertension Completed 03/31/2015 Appointment: (15 min) Moderate 02/11/2015 Appointment: Amy Cheung WPtel: [facility]5 [facility] Sick 09/29/2014 Visit Plan: Diabetes Mellitus [...] months. 08/31/2014 Appointment: [facility]Ptel: [phone] Follow up 08/31/2014 Patient Education: Patient Medication [...] Patient Education: Hypertension Completed 08/10/2014 Appointment: Amy Chueng WPtel: [facility] Follow up 05/10/2014 Visit Plan: Allergies [...] be ordered. 05/06/2014 Appointment: Amy Cheung WPtel: [facility]5 [facility] Follow up 05/06/2014 Patient Education: Patient Medication Summary Completed 05/06/2014 Patient Education: .Cervicalgia Neck Pain Completed 05/06/2014 Appointment: Amy Cheung WPtel: [phone] [facility] Follow up 05/05/2014 Visit Plan: Hypertension - [...] the neck. 04/14/2014 Appointment: Amy Cheung WPtel: [facility]5 [facility] Follow up 04/14/2014 Patient Education: Patient Medication [...] exercises. 11/10/2013 Appointment: Amy Cheung WPtel: [phone] [facility] Other 11/10/2013 Patient Education: Patient Medication [...] monitor symptoms. 07/14/2013 Appointment: Amy Cheung WPtel: [facility]5 [facility] Other 07/14/2013 Patient Education: Patient Medication Summary Completed 07/14/2013 Appointment: Riya Sheikh WPtel: [phone] [phone] Follow up 07/13/2013 Visit Plan: Hypertension [...] glucose control. 06/12/2013 Appointment: Riya Sheikh WPtel: [facility]5 [phone] Other 06/12/2013 Patient Education: Patient Medication [...] to patient. 05/20/2013 Appointment: Amy Cheung WPtel: [facility]5 [facility] Follow up 05/20/2013 Patient Education: Patient Medication Summary Completed 05/20/2013 Appointment: Amy Cheung WPtel: [address] [place], [place] [phone] Follow up 05/07/2013 Appointment: Amy Cheung WPtel: [address] [place], [place] [phone] Lab Draw 04/27/2013 Patient Education: Patient Medication [...] a copy of this note to her Hyperbaric Tech - Dr. Kraus as he will ultimately [...] Glyburide restarted. 04/09/2013 Appointment: Amy Cheung WPtel: [address] [place], [place] [address] Follow up 04/09/2013 Patient Education: Patient Medication Summary Completed 04/09/2013 Patient Education: Hypertension Completed 04/09/2013 Appointment: Amy Cheung WPtel: [address] [place], [place] [address] Follow up 03/30/2013 Visit Plan: Hypertension - [...] water today 01/26/2013 Appointment: Amy Cheung WPtel: [facility] Other 01/26/2013 Patient Education: Patient Medication [...] home. 12/23/2012 Appointment: Amy Cheung WPtel: [address] [place], [place] [address] Follow up 12/23/2012 Patient Education: Patient Medication Summary Completed 12/23/2012 Patient Education: Hypertension Completed 12/23/2012 Visit Plan: Sinusitis - Pt has acut e infection - pain in face, maxillary region, Pt informed to use decongestant, RX given to patient, sinus rinses also recommended. Call if symptoms do not show improvement. 12/15/2012 Appointment: Amy Cheung WPtel: [address] [place], [place] [phone] Sick 12/15/2012 Patient Education: Patient Medication Summary Completed 12/15/2012 Visit Plan: Bruising and pain post fall- with hip pain - recommended pt to have xray of hips and pelvis and lumbar spine as she is having the pain in her hips post fall. 10/22/2012 Appointment: Amy Cheung WPtel: [address] [place], [place] [phone] Other 10/22/2012 Patient Education: Patient Medication Summary Completed 10/22/2012 Appointment: Amy Cheung WPtel: [address] [place], [place] [phone] Follow up 09/30/2012 Visit Plan: Hypertension - well con galileolled [...] controlled. 08/21/2012 Appointment: [facility]Ptel: [phone] Follow up [...] understanding. 07/17/2012 Appointment: Amy Che[facility] WPtel: [phone] Follow up [...] today. 07/08/2012 Appointment: Amy Cheung WPtel: [phone] [facility]66[facility] Other 07/08/2012 Patient Education: Patient Medication Summary Completed 07/08/2012 Patient Education: Hypertension Completed 07/08/2012 Visit Plan: Diabetes Mellitus - eleuterio myriamgerardo - per recent FSBS reports. I have [...] labs checked. 06/09/2012 Appointment: Amy Cheung WPtel: [phone] [facility]66[facility] Other 06/09/2012 Patient Education: Patient Medication Summary Completed 06/09/2012 Patient Education: High Blood Pressure: Essential Hypertension Completed 06/09/2012 Visit Plan: Sinusitis - Pt has acut e infection - pain in face, maxillary region, Pt informed to use decongestant, RX given to patient, sinus rinses also recommended. Call if symptoms do not show improvement. 02/12/2012 Appointment: Amy Cheung WPtel: [phone] Other 02/12/2012 Patient Education: Patient Medication [...] in place. 02/05/2012 Appointment: Amy Cheung WPtel: [address] [place] [address] Other 02/05/2012 Patient Education: Patient Medication Summary [...] any worse. Check your thyroid labs at [facility]we will call you with the results. Allergies - chronic - recommended pt to use allergy medication as prescribed. Pt has been counseled as the the appropriate use of the medication. Pt to call if allergy symptoms are not controlled with the medication. Dysuria - UA negative 11/14/2011 Appointment: Amy Cheung WPtel: [facility]3 [address] Other 11/14/2011 Appointment: Amy Cheung WPtel: [address] [place] [address] Other 11/14/2011 Patient Education: Patient Medication Summary [...] patient today. 10/08/2011 Appointment: Amy Cheung WPtel: [facility]8 [address] Other 10/08/2011 Patient Education: Patient Medication [...] removal process. 08/28/2011 Appointment: Amy Cheung WPtel: [address] [place] [address] [place] Other 08/28/2011 Patient Education: Patient Medication [...] in readings. 07/24/2011 Appointment: Amy Cheung WPtel: [phone] [facility]66[facility] Other 07/24/2011 Patient Education: Patient Medication Summary [...] lower back. 06/19/2011 Appointment: Amy Cheung WPtel: [phone] [facility] Other 06/19/2011 Patient Education: Patient Medication Summary [...] neuropathic symptoms. 06/05/2011 Appointment: Amy Cheung WPtel: [facility] Other 06/05/2011 [...] a copy of this note to her Hyperbaric Tech - Dr. Kraus as he will ultimately [...] control. Glyburide restarted. . Diabetes Mellitus - controlled - per [...] use lactaid pills I sent prescriptions to [facility] for the following medications: LOSARTAN 25MG DAILY [...] office if the symptoms are not improving. Hiizw-vbeecefce-tppzzqx injection today in the office -start claritin [...] any worse. Check your thyroid labs at [facility]we will call you with the results. [...] any worse. Check your thyroid labs at [facility]we will call you with the results. [...]
--- OUTSIDE RECORDS SUMMARY | 2019-08-12 23:03 | XMS REPORT | CCD ---
Author Author Veronica Cheung Organization Amy Cheung MD, [facility] Address [address] [place] [address] Phone Care Team Providers Care Behavioral Pediatrician Name Role Phone PP Unavailable CCM Unavailable Summary Purpose Interface Exchange Insurance Providers Payer name Policy type / Coverage type Covered constitution party ID Effective Begin Date Effective End Date WPS Medicare Part B Medicare Part B [id number] Unknown GEHA Medicare Part B [id number] Unknown Family history Father Diagnosis Age At [...] Date Stop Date Sta tus Fill Instructions Effexor XR 75 mg cap alma,extended release RxNorm: 224256 1 Capsule(s) PO daily 09/16/2018 09/10/2019 Ac tive levothyroxine 25 mcg tablet RxNorm: 209531 Tablet(s) TAKE 1 TABL ET DAILY 08/26/2018 02/21/2019 Ac tive montelukast 10 mg ta blet RxNorm: 915517 TAKE 1 TABLET DAILY 07/21/2018 07/15/2019 Active Augmentin 500 mg-125 mg tablet RxNorm: 251575 1 Tablet(s) PO TID 05/27/2018 05/26/2018 Inactive Augmentin 500 mg-125 mg tablet RxNorm: 877159 1 Tablet(s) PO TID 05/27/2018 06/02/2018 Inactive Kenalog 40 mg/mL elizabeth pension for injection RxNorm: 2574832 1 Milliliter(s) Inj 05/26/2018 05/26/2018 In active pilocarpine 5 mg tablet RxNorm: 3087584 Tablet(s) TAKE 4 TABLETS DAILY 04/22/2018 07/15/2019 Ac tive Trulicity 1.5 mg/0.5 mL subcutaneous pen injector RxNorm: 2803259 INJECT 0.5ML SUBCUTANEOUSLY EVERY WEEK 02/24/2018 04/29/2019 Active levothyroxine 25 mcg tablet RxNorm: 641738 TAKE 1 TABLET DAILY 02/13/2018 08/11/2018 Inactive mesalamine 800 mg ta blet,delayed release RxNorm: 934776 TAKE 1 TABLET TWICE A DAY 12/10/2017 12/04/2018 Ac tive metformin 500 mg tablet RxNorm: 237520 1.5 Tablet(s) PO BID 11/25/2017 11/19/2018 Active levothyroxine 25 mcg tablet RxNorm: 043522 TAKE 1 TABLET DAILY 11/19/2017 02/12/2018 Inactive Nexium 40 mg capsule ,delayed release RxNorm: 190074 TAKE 1 CAPSULE TWICE DAILY 11/15/2017 11/09/2018 Ac tive Effexor XR 75 mg cap alma,extended release RxNorm: 083708 1 Capsule(s) PO daily 10/14/2017 09/15/2018 In active Bactroban 2 % topica l cream RxNorm: 938027 1 Application TOP TID 09/18/2017 09/27/2017 Inactive nystatin 100,000 uni t/mL oral suspension RxNorm: 550934 5 Milliliter(s) PO TI D 09/18/2017 09/27/2017 In active oxazepam 10 mg capsule RxNorm: 723226 1 Capsule(s) PO TID as needed anxiety 09/02/2017 02/28/2018 In active fluticasone 50 mcg/a ctuation nasal spray,suspension RxNorm: 8711486 Lucien USE ONE SPRAY IN EACH NOSTRIL TWICE A DAY 08/29/2017 12/26/2017 Inactive oxazepam 10 mg capsule RxNorm: 958187 1 Capsule(s) PO TID as needed anxiety 08/29/2017 09/01/2017 In active furosemide 40 mg tablet RxNorm: 809801 TAKE 1 TABLET DAILY 08/26/2017 08/20/2018 Inactive pilocarpine 5 mg tablet RxNorm: 3922924 TAKE 4 TABLETS DAILY 08/26/2017 04/21/2018 Inactive metformin 500 mg tablet RxNorm: 174884 TAKE 1 TABLET TWICE A DAY 08/20/2017 11/24/2017 Inactive Claritin-D 12 Hour 5 mg-120 mg tablet,extended release RxNorm: 9932942 Tablet(s) TAKE ONE (1) TABLET BY MOUTH TWICE DAILY 07/29/2017 09/26/2017 Inactive fluticasone 50 mcg/a ctuation nasal spray,suspension RxNorm: 1930774 Lucien USE ONE SPRAY IN EACH NOSTRIL TWICE A DAY 07/25/2017 07/24/2017 Inactive fluticasone 50 mcg/a ctuation nasal spray,suspension RxNorm: 9473575 Lucien USE ONE SPRAY IN EACH NOSTRIL TWICE A DAY 07/25/2017 08/28/2017 Inactive fluticasone 50 mcg/a ctuation nasal spray,suspension RxNorm: 8466031 Lucien USE ONE SPRAY IN EACH NOSTRIL TWICE A DAY 06/04/2017 07/24/2017 Inactive montelukast 10 mg ta blet RxNorm: 924965 TAKE 1 TABLET DAILY 06/03/2017 05/28/2018 Inactive levothyroxine 25 mcg tablet RxNorm: 177301 TAKE 1 TABLET DAILY 05/13/2017 11/08/2017 Inactive Voltaren 1 % topical gel RxNorm: 315435 2 Gram(s) TOP QID 05/02/2017 2017 Inactive nystatin 100,000 uni t/mL oral suspension RxNorm: 615758 5 Milliliter(s) PO QI D 03/29/2017 04/11/2017 In active Diflucan 150 mg tablet RxNorm: 654134 1 Tablet(s) PO daily 03/29/2017 05/01/2017 Inactive Trulicity 1.5 mg/0.5 mL subcutaneous pen injector RxNorm: 3295598 INJECT 0.5ML SUBCUTANEOUSLY EVERY WEEK 02/28/2017 01/29/2018 Inactive levothyroxine 25 mcg tablet RxNorm: 727931 1 Tablet(s) PO daily 11/19/2016 11/18/2016 Inactive levothyroxine 25 mcg tablet RxNorm: 310111 1 Tablet(s) PO daily 11/19/2016 05/12/2017 Inactive Claritin 10 mg tablet RxNorm: 426332 1 Tablet(s) PO daily 11/07/2016 11/06/2016 Inactive Claritin 10 mg tablet RxNorm: 012106 1 Tablet(s) PO daily 11/07/2016 12/06/2016 Inactive Zithromax Z-Ankit 250 mg tablet RxNorm: 385921 1 Tablet(s) PO UD 11/07/2016 05/01/2017 Inactive oxazepam 10 mg capsule RxNorm: 313420 1 Capsule(s) PO TID as needed anxiety 11/01/2016 12/30/2016 In active Nexium 40 mg capsule ,delayed release RxNorm: 056124 1 Capsule(s) PO BID 10/25/2016 10/19/2017 In active Claritin-D 12 Hour 5 mg-120 mg tablet,extended release RxNorm: 8801406 Tablet(s) TAKE ONE (1) TABLET BY MOUTH TWICE DAILY 10/25/2016 12/23/2016 Inactive mesalamine 800 mg ta blet,delayed release RxNorm: 680520 1 Tablet(s) PO BID 09/18/2016 09/17/2016 In active mesalamine 800 mg ta blet,delayed release RxNorm: 260830 1 Tablet(s) PO BID 09/18/2016 06/14/2017 In active Effexor XR 75 mg cap alma,extended release RxNorm: 992411 1 Capsule(s) PO daily 08/30/2016 08/24/2017 In active metformin 500 mg tablet RxNorm: 954943 1 Tablet(s) PO BID 08/17/2016 08/11/2017 Inactive oxazepam 10 mg capsule RxNorm: 796489 1 Capsule(s) PO TID as needed anxiety 08/17/2016 10/15/2016 In active Claritin-D 12 Hour 5 mg-120 mg tablet,extended release RxNorm: 7686629 TAKE ONE (1) TABLET BY MOUTH TWICE DAILY... 08/16/2016 10/24/2016 Inactive furosemide 40 mg tablet RxNorm: 327826 1 Tablet(s) daily TAKE 1 TABLET DAILY 08/14/2016 08/08/2017 In active Effexor XR 75 mg cap alma,extended release RxNorm: 889676 1 Capsule(s) PO daily 08/14/2016 08/29/2016 In active pilocarpine 5 mg tablet RxNorm: 7719099 4 Tablet(s) PO daily TAKE 4 TABLETS YARI Y 08/14/2016 08/08/2017 In active metoclopramide 5 mg tablet RxNorm: 737821 1/2 to 1 Tablet(s) PO TID for nause and GI dysmotility 07/02/2016 11/14/2016 Inactive Effexor XR 75 mg cap alma,extended release RxNorm: 563750 1 Capsule(s) PO daily 07/02/2016 08/13/2016 In active metformin 500 mg tablet RxNorm: 033859 1/2 TABLET(S) PO BID X2 WEEKS THEN INCRE ASE TO 1 TABLET PO BID THEREAFTER 06/26/2016 08/16/2016 Inactive 30 day supply Claritin-D 12 Hour 5 mg-120 mg tablet,extended release RxNorm: 1107553 1 Tablet(s) PO BID 06/18/2016 08/15/2016 Inactive montelukast 10 mg ta blet RxNorm: 633720 1 Tablet(s) PO daily 06/13/2016 06/02/2017 Inactive metformin 500 mg tablet RxNorm: 769397 1/2 Tablet(s) PO BID x2 weeks then incre ase to 1 Tablet PO BID thereafter 06/07/2016 06/06/2016 Inactive 30 day supply metformin 500 mg tablet RxNorm: 940892 1/2 Tablet(s) PO BID x2 weeks then incre ase to 1 Tablet PO BID thereafter 06/07/2016 06/25/2016 Inactive 30 day supply Diflucan 150 mg tablet RxNorm: 541876 1 Tablet(s) PO daily 03/27/2016 04/02/2016 Inactive nystatin 100,000 uni t/mL oral suspension RxNorm: 209080 5 Milliliter(s) PO QI D 03/27/2016 04/05/2016 In active nystatin 100,000 uni t/mL oral suspension RxNorm: 574051 5 Milliliter(s) PO QI D 03/27/2016 03/26/2016 In active Diflucan 150 mg tablet RxNorm: 358458 1 Tablet(s) PO daily 03/27/2016 03/26/2016 Inactive Effexor XR 75 mg cap alma,extended release RxNorm: 743998 1 Capsule(s) PO daily 03/26/2016 07/01/2016 In active this replaces the 150mg dose - we are we aning down her dose Trulicity 1.5 mg/0.5 mL subcutaneous pen injector RxNorm: 3545190 0.5 Milliliter(s) SQ QW 03/26/2016 02/27/2017 Inactive Trulicity 0.75 mg/0. 5 mL subcutaneous pen injector RxNorm: 6408727 1 injection SQ QW 03/13/2016 06/03/2016 Inactive Trulicity 0.75 mg/0. 5 mL subcutaneous pen injector RxNorm: 6868731 1/2 Milliliter(s) SQ QW 03/13/2016 03/12/2016 Inactive glyburide 2.5 mg tablet RxNorm: 461236 1/2 Tablet(s) PO BID 03/13/2016 03/25/2016 Inactive glyburide 2.5 mg tablet RxNorm: 219520 1/2 Tablet(s) PO BID 03/13/2016 03/12/2016 Inactive Claritin-D 12 Hour 5 mg-120 mg tablet,extended release RxNorm: 2709570 1 Tablet(s) PO BID 02/03/2016 10/24/2016 Inactive Synthroid 25 mcg tablet RxNorm: 089689 1 Tablet(s) PO daily 01/23/2016 11/18/2016 Inactive Synthroid 25 mcg tablet RxNorm: 964545 1 Tablet(s) PO daily 01/23/2016 01/22/2016 Inactive Claritin-D 12 Hour 5 mg-120 mg tablet,extended release RxNorm: 7785409 1 Tablet(s) PO BID 12/05/2015 05/31/2016 Inactive Effexor XR 150 mg ca psule,extended release RxNorm: 441523 TAKE 1 CAPSULE DAILY 12/05/2015 03/25/2016 In active Bydureon 2 mg/0.65 m L subcutaneous pen injector RxNorm: 4977247 2 Milligram(s) SQ QW 10/14/2015 03/12/2016 Inactive oxazepam 10 mg capsule RxNorm: 349434 1 Capsule(s) PO TID PRN as needed anxiet y 10/14/2015 04/10/2016 In active Nexium 40 mg capsule ,delayed release RxNorm: 134553 1 Capsule(s) BID TAKE 1 CAPSULE DAILY 10/14/2015 10/07/2016 Inactive this is a new RX - fill the twice daily dose instead of once daily dose Effexor XR 150 mg ca psule,extended release RxNorm: 198517 1 Capsule(s) PO daily TAKE 1 CAPSULE DAILY 10/03/2015 03/25/2016 Inactive pilocarpine 5 mg tablet RxNorm: 0123632 4 Tablet(s) PO daily TAKE 4 TABLETS YARI Y 08/09/2015 02/04/2016 In active pilocarpine 5 mg tablet RxNorm: 6361502 4 Tablet(s) PO daily TAKE 4 TABLETS YARI Y 07/26/2015 08/08/2015 In active Claritin-D 12 Hour 5 mg-120 mg tablet,extended release RxNorm: 8371621 1 Tablet(s) PO BID 05/02/2015 10/24/2016 Inactive furosemide 40 mg tablet RxNorm: 838810 1 Tablet(s) daily TAKE 1 TABLET DAILY 03/31/2015 03/24/2016 In active Nexium 40 mg capsule ,delayed release RxNorm: 451116 1 Capsule(s) BID TAKE 1 CAPSULE DAILY 03/31/2015 10/13/2015 Inactive this is a new RX - fill the twice daily dose instead of once daily dose Nexium 40 mg capsule ,delayed release RxNorm: 816868 1 Capsule(s) daily TA KE 1 CAPSULE DAILY 03/31/2015 03/30/2015 Inactive montelukast 10 mg ta blet RxNorm: 604745 1 Tablet(s) PO daily 03/31/2015 03/24/2016 Inactive Synthroid 25 mcg tablet RxNorm: 831106 1 Tablet(s) PO daily 01/17/2015 01/11/2016 Inactive Synthroid 25 mcg tablet RxNorm: 359598 1 Tablet(s) PO daily 01/03/2015 01/16/2015 Inactive Claritin-D 12 Hour 5 mg-120 mg tablet,extended release RxNorm: 9694129 1 Tablet(s) PO BID 12/29/2014 05/01/2015 Inactive Synthroid 25 mcg tablet RxNorm: 525036 1 Tablet(s) PO daily 12/20/2014 01/02/2015 Inactive Synthroid 25 mcg tablet RxNorm: 427898 1 Tablet(s) PO daily 12/07/2014 12/19/2014 Inactive Effexor XR 150 mg ca psule,extended release RxNorm: 270107 1 Capsule(s) PO daily TAKE 1 CAPSULE DAILY 11/30/2014 10/02/2015 Inactive Nexium 40 mg capsule ,delayed release RxNorm: 039637 Capsule(s) TAKE 1 CAP ALMA DAILY 11/30/2014 03/30/2015 In active fenofibric acid (cho line) 135 mg capsule,delayed release RxNorm: 201577 1 Capsule(s) PO daily 08/31/2014 08/25/2015 Inactive Bydureon 2 mg subcut aneous extended release suspension RxNorm: 0386652 1 injection SQ QW 07/21/2014 07/15/2015 Inactive fluticasone 50 mcg/a ctuation nasal spray,suspension RxNorm: 9805301 USE ONE SPRAY IN EACH NOSTRIL TWICE A DAY 07/06/2014 06/03/2017 Inactive Lipitor 10 mg tablet RxNorm: 251457 TAKE 1 TABLET AT BEDTIME 06/15/2014 10/13/2015 Inactive furosemide 40 mg tablet RxNorm: 974053 TAKE 1 TABLET DAILY 06/15/2014 03/30/2015 Inactive oxazepam 10 mg capsule RxNorm: 680768 1 Capsule(s) PO TID PRN as needed anxiet y 06/11/2014 12/07/2014 In active montelukast 10 mg ta blet RxNorm: 202192 1 Tablet(s) PO daily 05/25/2014 03/30/2015 Inactive oxazepam 10 mg capsule RxNorm: 922654 1 Capsule(s) PO TID PRN as needed anxiet y 05/06/2014 06/10/2014 In active montelukast 10 mg ta blet RxNorm: 378807 1 Tablet(s) PO daily 05/04/2014 05/24/2014 Inactive Nexium 40 mg capsule ,delayed release RxNorm: 333770 TAKE 1 CAPSULE DAILY 03/25/2014 11/29/2014 In active Nexium 40 mg capsule ,delayed release RxNorm: 300018 1 Capsule(s) PO daily TAKE 1 CAPSULE DAILY 03/02/2014 03/24/2014 Inactive oxazepam 10 mg capsule RxNorm: 217289 1 Capsule(s) PO TID PRN as needed 02/24/2014 04/24/2014 In active pilocarpine 5 mg tablet RxNorm: 4605756 TAKE 4 TABLETS DAILY 02/01/2014 07/25/2015 Inactive Claritin-D 12 Hour 5 mg-120 mg tablet,extended release RxNorm: 0304682 1 Tablet(s) PO BID 12/24/2013 10/24/2016 Inactive Effexor XR 150 mg ca psule,extended release RxNorm: 933610 1 Capsule(s) PO daily TAKE 1 CAPSULE DAILY 12/24/2013 11/29/2014 Inactive Klor-Con 10 mEq tabl et,extended release RxNorm: 086427 1 Tablet(s) PO daily 12/24/2013 10/13/2015 In active Bydureon 2 mg subcut aneous extended release suspension RxNorm: 0736219 1 injection SQ QW 12/07/2013 07/20/2014 Inactive Synthroid 25 mcg tablet RxNorm: 019794 1 Tablet(s) PO daily 12/02/2013 11/26/2014 Inactive Klor-Con 10 mEq tabl et,extended release RxNorm: 903424 1 Tablet(s) PO daily take 2 daily x 1 week then one daily thereafter 12/02/2013 12/23/2013 Inactive oxazepam 10 mg capsule RxNorm: 863347 1 Capsule(s) PO TID PRN 11/10/2013 01/08/2014 Inactive omeprazole 20 mg cap alma,delayed release RxNorm: 044503 1 Capsule(s) PO daily 11/10/2013 04/13/2014 In active Synthroid 50 mcg tablet RxNorm: 899548 Tablet(s) PO TAKE 1 TABLET DAILY 09/21/2013 12/01/2013 In active furosemide 40 mg tablet RxNorm: 156735 Tablet(s) PO TAKE 1 TABLET DAILY 09/21/2013 06/14/2014 In active Bydureon 2 mg subcut aneous extended release suspension RxNorm: 5985252 1 injection SQ QW 07/22/2013 12/06/2013 Inactive Bydureon 2 mg subcut aneous extended release suspension RxNorm: 7169563 1 injection SQ QW 07/14/2013 07/21/2013 Inactive Nexium 40 mg capsule ,delayed release RxNorm: 578580 Capsule(s) PO TAKE 1 CAPSULE DAILY 06/18/2013 11/09/2013 Inactive fluticasone 50 mcg/a ctuation nasal spray,suspension RxNorm: 680287 1 Lucien NASAL BID 06/18/2013 07/05/2014 Inactive Lipitor 10 mg tablet RxNorm: 595104 Tablet(s) PO every other day 1 tablet qo d 06/18/2013 06/12/2014 In active losartan 25 mg tablet RxNorm: 629979 1 Tablet(s) PO daily 1 daily for blood p ressure 06/18/2013 10/15/2013 Inactive Toprol XL 25 mg tabl et,extended release RxNorm: 650005 1 Tablet(s) PO daily 06/18/2013 06/12/2014 In active Toprol XL 25 mg tabl et,extended release RxNorm: 909453 1 Tablet(s) PO daily 06/12/2013 06/17/2013 In active losartan 25 mg tablet RxNorm: 041366 1 Tablet(s) PO daily 1 daily for blood p ressure 06/12/2013 06/17/2013 Inactive Lipitor 10 mg tablet RxNorm: 587072 Tablet(s) PO every other day 1 tablet qo d 06/12/2013 06/17/2013 In active Effexor XR 150 mg ca psule,extended release RxNorm: 118448 1 Capsule(s) PO daily TAKE 1 CAPSULE DAILY 05/27/2013 12/23/2013 Inactive Bydureon 2 mg subcut aneous extended release suspension RxNorm: 0619227 1 injection SQ QW 05/20/2013 07/13/2013 Inactive Lipitor 10 mg tablet RxNorm: 167384 Tablet(s) PO every other day 1 tablet qo d 05/20/2013 06/11/2013 In active Pen Needle 32 x 5/32" RxNorm: Miscellaneous use with byetta pen 05/07/2013 09/03/2013 Inactive Effexor XR 150 mg ca psule,extended release RxNorm: 977171 1 Capsule(s) PO daily TAKE 1 CAPSULE DAILY 05/07/2013 05/26/2013 Inactive Pen Needle 32 x 5/32" RxNorm: Miscellaneous use with byetta pen 05/06/2013 05/06/2013 Inactive Pen Needle 32 x 5/32" RxNorm: Miscellaneous use with byetta pen 05/06/2013 05/05/2013 Inactive Byetta 5 mcg/0.02 mL per dose Sub-Q Pen Injector RxNorm: 197975 1 Unit Dose SQ BID 04/29/2013 05/19/2013 In active metformin ER 500 mg tablet,extended release 24 hr RxNorm: 645576 1 Tablet(s) PO BID 04/28/2013 06/19/2013 In active Byetta 5 mcg/0.02 mL per dose Sub-Q Pen Injector RxNorm: 732679 1 Unit Dose SQ BID 04/28/2013 04/27/2013 In active Byetta 5 mcg/0.02 mL per dose Sub-Q Pen Injector RxNorm: 582435 1 Unit Dose SQ BID 04/28/2013 04/28/2013 In active Influenza Virus Vacc ine 0.5 mL RxNorm: IM 04/27/2013 04/27/2013 Inactive glyburide 2.5 mg tablet RxNorm: 717484 1 Tablet(s) PO BID 04/27/2013 04/27/2013 Inactive glyburide 2.5 mg tablet RxNorm: 188066 1/2 Tablet(s) PO daily 04/13/2013 04/26/2013 Inactive glyburide 2.5 mg tablet RxNorm: 502287 1 Tablet(s) PO daily 04/09/2013 04/12/2013 Inactive metformin ER 500 mg tablet,extended release 24 hr RxNorm: 739054 2 Tablet(s) PO BID 04/09/2013 04/27/2013 In active Lipitor 10 mg tablet RxNorm: 683928 Tablet(s) PO TAKE 1 TABLET AT BEDTIME 03/17/2013 05/19/2013 In active losartan 25 mg tablet RxNorm: 483287 1 Tablet(s) PO daily 02/12/2013 06/11/2013 Inactive montelukast 10 mg ta blet RxNorm: 922313 1 Tablet(s) PO daily 02/09/2013 02/08/2013 Inactive montelukast 10 mg ta blet RxNorm: 678284 1 Tablet(s) PO daily 02/09/2013 02/03/2014 Inactive losartan 25 mg tablet RxNorm: 470273 1 Tablet(s) PO daily 02/09/2013 02/11/2013 Inactive losartan 25 mg tablet RxNorm: 719151 1 Tablet(s) PO daily 01/26/2013 02/08/2013 Inactive Effexor XR 150 mg ca psule,extended release RxNorm: 442332 Capsule(s) PO TAKE 1 CAPSULE DAILY 12/24/2012 05/06/2013 Inactive metformin ER 500 mg tablet,extended release 24 hr RxNorm: 681240 Tablet(s) PO TAKE 2 TABLETS TWICE A DAY 12/24/2012 04/08/2013 Inactive pilocarpine 5 mg tablet RxNorm: 6537100 Tablet(s) PO TAKE 4 TABLETS DAILY 12/24/2012 01/31/2014 In active levofloxacin 500 mg tablet RxNorm: 033761 1 Tablet(s) PO daily 12/15/2012 12/19/2012 Inactive Nexium 40 mg capsule ,delayed release RxNorm: 286375 Capsule(s) PO daily T MILO 1 CAPSULE DAILY 11/03/2012 06/17/2013 Inactive Claritin-D 12 Hour 5 mg-120 mg tablet,extended release RxNorm: 7875097 1 Tablet(s) PO BID 10/29/2012 10/23/2013 Inactive TAKE 1 TABLET BY MOUTH TWICE DAILY fluticasone 50 mcg/a ctuation nasal spray,suspension RxNorm: 8276282 1 Lucien NASAL BID 10/08/2012 06/17/2013 Inactive Claritin-D 12 Hour 5 mg-120 mg tablet,extended release RxNorm: 9917319 1 Tablet(s) PO BID 09/09/2012 2012 Inactive TAKE 1 TABLET BY MOUTH TWICE DAILY montelukast 10 mg ta blet RxNorm: 668469 1 Tablet(s) PO daily 08/20/2012 02/08/2013 Inactive Synthroid 50 mcg tablet RxNorm: 194957 Tablet(s) PO TAKE 1 TABLET DAILY 08/18/2012 09/20/2013 In active Nexium 40 mg capsule ,delayed release RxNorm: 114923 Capsule(s) PO TAKE 1 CAPSULE DAILY 08/18/2012 11/02/2012 Inactive furosemide 40 mg tablet RxNorm: 631832 Tablet(s) PO TAKE 1 TABLET DAILY 08/18/2012 09/20/2013 In active Klor-Con 10 mEq tabl et,extended release RxNorm: 299187 Tablet(s) PO TAKE 1 T ABLET DAILY 08/18/2012 12/01/2013 Inactive Xanax 0.5 mg tablet RxNorm: 616388 1 Tablet(s) PO Q6 PRN 07/17/2012 10/13/2015 Inactive Zithromax 250 mg tablet RxNorm: 926748 Tablet(s) PO 07/14/2012 11/10/2013 Inactive disp one z ankit fluticasone 50 mcg/a ctuation Nasal Lucien, Susp RxNorm: 2479808 1 Lucien NASAL BID 06/27/2012 10/07/2012 In active Anusol-HC 25 mg Supp ository RxNorm: 9677245 1 Suppository RTL QD AY PRN 06/09/2012 01/04/2013 In active daily x 3 days then prnno longer than 10 days in row use Claritin-D 12 Hour 5 mg-120 mg tablet,extended release RxNorm: 2808762 1 Tablet(s) PO BID 05/22/2012 05/22/2012 Inactive TAKE 1 TABLET BY MOUTH TWICE DAILY Claritin-D 12 Hour 5 mg-120 mg tablet,extended release RxNorm: 6957713 Tablet(s) PO 05/12/2012 05/21/2012 In active TAKE 1 TABLET BY MOUTH TWICE DAILY fluticasone 50 mcg/a ctuation Nasal Lucien, Susp RxNorm: 0522759 1 Lucien NASAL BID 05/06/2012 06/26/2012 In active Rocephin 500 mg Solu tion for Injection RxNorm: 439111 Inj 02/1102/12/2012 Inactive metronidazole 500 mg Tab RxNorm: 952365 1 Tablet(s) PO TID 02/12/2012 02/18/2012 Inactive Kenalog 40 mg/mL Elizabeth p for Injection RxNorm: 2966966 Milliliter(s) Inj 02/12/2012 02/12/2012 In active fluticasone 50 mcg/a ctuation Nasal Lucien, Susp RxNorm: 1502314 1 Lucien NASAL BID 02/12/2012 05/05/2012 In active cefdinir 300 mg Cap RxNorm: 114218 1 Capsule(s) PO BID 02/12/2012 02/21/2012 Inactive Effexor XR 150 mg ca psule,extended release RxNorm: 215873 1 Capsule(s) PO daily 12/17/2011 12/10/2012 In active metformin ER 500 mg tablet,extended release 24 hr RxNorm: 878954 2 Tablet(s) PO BID 12/17/2011 05/14/2012 In active pilocarpine 5 mg tablet RxNorm: 1104159 4 Tablet(s) PO daily 12/17/2011 03/15/2012 Inactive Singulair 10 mg Tab RxNorm: 150677 1 Tablet(s) PO daily 11/27/2011 08/19/2012 Inactive Nexium 40 mg capsule ,delayed release RxNorm: 071824 1 Capsule(s) PO daily 11/26/2011 03/24/2012 In active Claritin-D 12 Hour 5 mg-120 mg tablet,extended release RxNorm: 7358913 1 Tablet(s) PO BID 11/14/2011 05/11/2012 Inactive Claritin-D 12 Hour 5 mg-120 mg Tab RxNorm: 1128189 1 Tablet(s) PO BID 10/31/2011 11/13/2011 In active Claritin-D 12 Hour 5 mg-120 mg Tab RxNorm: 9442833 1 Tablet(s) PO BID 10/29/2011 2011 In active Claritin-D 12 Hour 5 mg-120 mg Tab RxNorm: 8272455 1 Tablet(s) PO BID 10/29/2011 10/30/2011 In active Claritin-D 24 Hour 1 0 mg-240 mg Tab RxNorm: 4583509 1 Tablet(s) PO daily 10/23/2011 2011 In active levofloxacin 500 mg Tab RxNorm: 019822 1 Tablet(s) PO daily 08/28/2011 09/03/2011 Inactive Nasonex 50 mcg/actua tion Lucien RxNorm: 239599 1 Lucien NASAL BID 08/28/2011 11/25/2011 Inactive promethazine 25 mg/m L Injection RxNorm: 702085 1 Milliliter(s) Inj 08/23/2011 07/14/2013 Inactive glyburide 2.5 mg tablet RxNorm: 400744 1 Tablet(s) PO daily 08/23/2011 04/08/2013 Inactive Rocephin 500 mg Solu tion for Injection RxNorm: 494722 1 Milliliter(s) Inj 08/23/2011 08/28/2011 In active Klor-Con 10 10 mEq t ablet,extended release RxNorm: 711674 1 Tablet(s) PO daily 08/06/2011 07/30/2012 In active Nexium 40 mg Capsule , delayed release RxNorm: 257297 1 Capsule(s) PO daily 08/06/2011 11/25/2011 In active furosemide 40 mg tablet RxNorm: 896753 1 Tablet(s) PO daily 08/06/2011 07/30/2012 Inactive Cymbalta 30 mg Cap RxNorm: 386963 1 Capsule(s) PO daily 07/26/2011 08/28/2011 Inactive Synthroid 50 mcg tablet RxNorm: 664759 Tablet(s) PO 06/21/2011 08/17/2012 Inactive TAKE 1 TABLET DAILY Neurontin 100 mg Cap RxNorm: 486720 2 Capsule(s) PO TID 06/19/2011 08/28/2011 Inactive ciprofloxacin 500 mg Tab RxNorm: 041472 1 Tablet(s) PO BID 06/19/2011 08/28/2011 Inactive Neurontin 100 mg Cap RxNorm: 121312 1 Capsule(s) PO QID 06/05/2011 06/18/2011 Inactive oxazepam 10 mg Cap RxNorm: 771908 1 Capsule(s) PO Q6 PRN 06/05/2011 10/02/2011 Inactive Influenza Virus Vacc ine 0.5 mL RxNorm: IM 06/05/2011 06/05/2011 Inactive EnteraGam 5 gram ora l powder packet RxNorm: 1 PO daily No S tart Date Active hydrocodone-acetamin ophen 5 mg-500 mg Tab RxNorm: 692782 1 Tablet(s) PO Q6 PRN No Start Date Active Centrum Ultra Women' s 18 mg-400 mcg Tab RxNorm: 1 Tablet(s) PO daily No Start Date Active Fish Oil 1,000 mg Cap RxNorm: 2 Capsule(s) PO BID No Start Date Active Zenpep 40,000-136,00 0-218,000 unit capsule,delayed release RxNorm: 1038305 1 Capsule(s) PO QID No Start Date Active mesalamine 4 gram/60 mL enema RxNorm: 477688 1 Milliliter(s) RTL d aily No Start Date Active Linzess 290 mcg capsule RxNorm: 8880472 1 Capsule(s) PO daily No Start Date Active aspirin 81 mg Cap, D elayed Release RxNorm: 601594 1 Capsule(s) PO daily No Start Date Active Vitamin B-12 1,000 m cg Tab RxNorm: 691919 2 Tablet(s) PO daily No Start Date Active Vitamin C With Darlyn Hips 1,000 mg Tab RxNorm: 542643 1 Tablet(s) PO daily No Start Date Active Lipitor 10 mg Tab RxNorm: 269499 1 Tablet(s) PO HS No Start Date 04/10/2011 Inactive Lipitor 20 mg Tab RxNorm: 387093 1 Tablet(s) PO HS No Start Date 08/28/2011 Inactive Zithromax 250 mg tablet RxNorm: 893006 Tablet(s) PO No Start Date 07/13/2012 Inactive disp one z ankit Effexor XR 150 mg 24 hr Cap RxNorm: 422289 1 Capsule(s) PO daily No Start Date 12/16/2011 Inactive Bydureon 2 mg/0.65 m L subcutaneous pen injector RxNorm: 4543625 Milliliter(s) SQ QW No Start Date 10/13/2015 Inactive furosemide 40 mg Tab RxNorm: 545356 1 Tablet(s) PO daily No Start Date 08/05/2011 Inactive Synthroid 25 mcg tablet RxNorm: 323977 1 Tablet(s) PO daily No Start Date 12/01/2013 Inactive Januvia 50 mg tablet RxNorm: 754875 1 Tablet(s) PO daily samples No Start Date 04/27/2013 Inactive Lipitor 10 mg tablet RxNorm: 950335 1 Tablet(s) PO daily No Start Date 03/16/2013 Inactive Crestor 10 mg tablet RxNorm: 876324 1 Tablet(s) PO QHS No Start Date 03/25/2016 Inactive Asacol HD 800 mg Tab RxNorm: 824672 2 Tablet(s) PO daily No Start Date 10/13/2015 Inactive pilocarpine 5 mg Tab RxNorm: 2803520 4 Tablet(s) PO daily No Start Date 12/16/2011 Inactive glyburide 2.5 mg Tab RxNorm: 423256 1 Tablet(s) PO BID No Start Date 08/22/2011 Inactive Claritin-D 24 Hour 1 0 mg-240 mg Tab RxNorm: 8275792 1 Tablet(s) PO daily No Start Date 10/22/2011 Inactive Vitamin D 1,000 unit Tab RxNorm: 461839 1 Tablet(s) PO daily No Start Date 10/13/2015 Inactive Tricor 145 mg Tab RxNorm: 298155 1 Tablet(s) PO daily No Start Date 10/14/2015 Inactive Zithromax Z-Ankit 250 mg tablet RxNorm: 467460 1 Tablet(s) PO UD No Start Date 11/06/2016 Inactive Synthroid 25 mcg tablet RxNorm: 242913 1 Tablet(s) PO daily No Start Date 05/01/2017 Inactive Claritin-D 12 Hour 5 mg-120 mg tablet,extended release RxNorm: 0743306 1 Tablet(s) PO BID No Start Date 12/23/2013 Inactive Singulair 10 mg Tab RxNorm: 447020 1 Tablet(s) PO daily No Start Date 11/26/2011 Inactive Calcium 600 + D(3) 6 00 mg (1,500)-200 unit Tab RxNorm: 965820 1 Tablet(s) PO daily No Start Date 10/13/2015 Inactive Lialda 1.2 gram tabl et,delayed release RxNorm: 374390 2 Tablet(s) PO daily No Start Date 09/17/2016 Inactive Effexor XR 150 mg 24 hr Cap RxNorm: 179474 1 Capsule(s) PO daily No Start Date 08/28/2011 Inactive aspirin 325 mg Tab RxNorm: 042692 1 Tablet(s) PO daily No Start Date 08/28/2011 Inactive Toprol XL 25 mg tabl et,extended release RxNorm: 327843 1 Tablet(s) PO daily No Start Date 06/11/2013 Inactive lisinopril 10 mg tablet RxNorm: 615177 1 Tablet(s) PO daily No Start Date 01/25/2013 Inactive Cymbalta 60 mg Cap RxNorm: 449007 1 Capsule(s) PO daily No Start Date 08/28/2011 Inactive Nexium 40 mg Cap RxNorm: 170350 1 Capsule(s) PO daily No Start Date 08/05/2011 Inactive dicyclomine 10 mg Cap RxNorm: 472106 1 Capsule(s) PO daily No Start Date 07/13/2013 Inactive Synthroid 50 mcg Tab RxNorm: 095716 1 Tablet(s) PO daily No Start Date 06/20/2011 Inactive metformin ER 500 mg 24 hr Tab RxNorm: 130918 2 Tablet(s) PO BID No Start Date 12/16/2011 Inactive Anusol-HC 25 mg Supp ository RxNorm: 1246516 1 Suppository RTL No Start Date 06/08/2012 Inactive daily x 3 days then prnno longer than 10 days in row use Medication Administered Medication Codes Instruc tions Start Date Status Kenalog 40 mg/mL suspension for injection RxNorm: 8360090 1Milliliter 05/26/2018 N o longer Active Influenza Virus Vaccine 0.5 mL RxNorm: 04/27/2013 No longer Active Rocephin 500 mg Solution for Injection RxNorm: 144296 02/12/2012 No longer A ctive Kenalog 40 mg/mL Susp for Injection RxNorm: 2084884 Milliliter 02/12/2012 No longer Active Influenza Virus [...] Code Item Item Code Result Date %Hba1C Zjs356 % HbA1c 68803-0 6.6 % 04/01/2018 %Hba1C Ypm302 Gluc Ave 143 mg/dL 04/01/2018 Lipid Ord30 CHOL 178 mg/dL 04/01/2018 Lipid Ord30 HDL 50.0 mg/dl 04/01/2018 Lipid Ord30 TRIG 221 mg/dL 04/01/2018 Lipid Ord30 LDL 84 mg/dL 04/01/2018 Lipid Ord30 C/HDL 3.6 Ratio 04/01/2018 %Hba1C Pwa231 % HbA1c 87044-8 6.7 % 11/25/2017 %Hba1C Tsk543 Gluc Ave 146 mg/dL 11/25/2017 Comp Metabolic Xhq927 NA 144 mEq/L 04/30/2017 Comp Metabolic Idg845 K 4.3 mEq/L 04/30/2017 Comp Metabolic Bbs841 CL 105 mEq/L 04/30/2017 Comp Metabolic Yyb139 CO2 29.0 mEq/L 04/30/2017 Comp Metabolic Pex204 AN ION GAP 14 04/30/2017 Comp Metabolic Cft144 GL UCOSE 109 mg/dL 04/30/2017 Comp Metabolic Voz568 Cr eat 1.0 mg/dL 04/30/2017 Comp Metabolic Xyz128 eG FR 58 ml/min/1.73m2 04/30 Comp Metabolic Szq913 BUN 17 mg/dL 04/30/2017 Comp Metabolic Aqz961 B/ C Ratio 17.3 Ratio 04/30/2017 Comp Metabolic Cax927 CA LCIUM 10.1 mg/dL 04/30/2017 Comp Metabolic Jwg482 AL K PHOS 47 U/L 04/30/2017 Comp Metabolic Rvz188 T(SGOT) 16 U/L 04/30/2017 Comp Metabolic Ozr951 AL T(SGPT) 16 U/L 04/30/2017 Comp Metabolic Ygy922 BI LI T 0.4 mg/dL 04/30/2017 Comp Metabolic Cor271 AL BUMIN 4.5 g/dL 04/30/2017 Comp Metabolic Zfm188 TP RO 6.7 g/dL 04/30/2017 Comp Metabolic Fhk463 GL OB 2.2 g/dL 04/30/2017 Comp Metabolic Nyj309 A/ G Ratio 2.0 Ratio 04/30/2017 Comp Metabolic Zbn802 Os mo 289 mOsmo 04/30/2017 Cbc With Differential Ord2 WBC 3.68 K/ul 04/30/2017 Cbc With Differential Ord2 RBC 4.39 M/ul 04/30/2017 Cbc With Differential Ord2 HGB 12.4 g/dl 04/30/2017 Cbc With Differential Ord2 HCT 37.9 % 04/30/2017 Cbc With Differential Ord2 Neut% 60.7 % 04/30/2017 Cbc With Differential Ord2 Lymph% 30.4 % 04/30/2017 Cbc With Differential Ord2 MCV 86.3 fl 04/30/2017 Cbc With Differential Ord2 [place]% 6.5 % 04/30/2017 Cbc With Differential Ord2 MCH 28.2 pg 04/30/2017 Cbc With Differential Ord2 Eos% 1.6 % 04/30/2017 Cbc With Differential Ord2 MCHC 32.7 pg 04/30/2017 Cbc With Differential Ord2 Baso% 0.8 % 04/30/2017 Cbc With Differential Ord2 PLT 289 K/ul 04/30/2017 Cbc With Differential Ord2 Neut ABS# 2.23 K/ul 04/30/2017 Cbc With Differential Ord2 RDW 15.2 % 04/30/2017 Cbc With Differential Ord2 Lymph ABS# 1.12 K/ul 04/30/2017 Cbc With Differential Ord2 [place] ABS# 0.2 K/ul 04/30/2017 Cbc With Differential Ord2 Eos ABS# 0.1 K/ul 04/30/2017 Cbc With Differential Ord2 Baso ABS# 0.0 K/ul 04/30/2017 %Hba1C Ylo778 % HbA1c 36992-3 6.7 % 04/30/2017 %Hba1C Qek110 Gluc Ave 146 mg/dL 04/30/2017 Tsh Ord6 hTSH II 1.36 uIU/mL 04/30/2017 Lipid Ord30 CHOL 160 mg/dL 04/30/2017 Lipid Ord30 HDL 51.0 mg/dl 04/30/2017 Lipid Ord30 TRIG 195 mg/dL 04/30/2017 Lipid Ord30 LDL 70 mg/dL 04/30/2017 Lipid Ord30 C/HDL 3.1 Ratio 04/30/2017 Free T4 Myq383 FREE T4 0.75 ng/dL 04/30/2017 Ferritin Ord22 FERRITIN 89.9 ng/mL 11/09/2016 Parathyroid Hormone Hlh250 PTH 36.20 pg/ml 11/09/2016 Tibc Ord40 Iron 75 ug/dl 11/08/2016 Tibc Ord40 UIBC 325 ug/dL 11/08/2016 Tibc Ord40 TIBC 400 ug/dL 11/08/2016 Tibc Ord40 Fe-%Sat 18.8 % 11/08/2016 Comp Metabolic Vzy784 NA 139 mEq/L 09/25/2016 Comp Metabolic Tul620 K 4.3 mEq/L 09/25/2016 Comp Metabolic Rlw401 CL 101 mEq/L 09/25/2016 Comp Metabolic Fpk821 CO2 31.0 mEq/L 09/25/2016 Comp Metabolic Hcx148 AN ION GAP 11 09/25/2016 Comp Metabolic Jkx685 GL UCOSE 116 mg/dL 09/25/2016 Comp Metabolic Cle324 Cr eat 1.1 mg/dL 09/25/2016 Comp Metabolic Uac237 eG FR 53 ml/min/1.73m2 09/25 Comp Metabolic Fen525 BUN 22 mg/dL 09/25/2016 Comp Metabolic Hsj199 B/ C Ratio 20.8 Ratio 09/25/2016 Comp Metabolic Oww962 CA LCIUM 10.3 mg/dL 09/25/2016 Comp Metabolic Dxd525 AL K PHOS 52 U/L 09/25/2016 Comp Metabolic Ssl279 T(SGOT) 16 U/L 09/25/2016 Comp Metabolic Gyb736 AL T(SGPT) 17 U/L 09/25/2016 Comp Metabolic Esc887 BI LI T 0.3 mg/dL 09/25/2016 Comp Metabolic Oyq955 AL BUMIN 4.7 g/dL 09/25/2016 Comp Metabolic Zma513 TP RO 6.9 g/dL 09/25/2016 Comp Metabolic Ujr119 GL OB 2.2 g/dL 09/25/2016 Comp Metabolic Fvt944 A/ G Ratio 2.1 Ratio 09/25/2016 Comp Metabolic Rxc904 Os mo 282 mOsmo 09/25/2016 Lipid Ord30 CHOL 182 mg/dL 09/25/2016 Lipid Ord30 HDL 55.0 mg/dl 09/25/2016 Lipid Ord30 TRIG 168 mg/dL 09/25/2016 Lipid Ord30 LDL 93 mg/dL 09/25/2016 Lipid Ord30 C/HDL 3.3 Ratio 09/25/2016 %Hba1C Dww542 % HbA1c 39892-3 7.0 % 09/25/2016 %Hba1C Tbi778 Gluc Ave 154 mg/dL 09/25/2016 Free T4 Uad759 FREE T4 0.80 ng/dL 09/25/2016 Cbc With Differential Ord2 WBC 4.16 K/ul 09/25/2016 Cbc With Differential Ord2 RBC 4.63 M/ul 09/25/2016 Cbc With Differential Ord2 HGB 13.1 g/dl 09/25/2016 Cbc With Differential Ord2 HCT 39.5 % 09/25/2016 Cbc With Differential Ord2 Neut% 59.9 % 09/25/2016 Cbc With Differential Ord2 Lymph% 31.0 % 09/25/2016 Cbc With Differential Ord2 MCV 85.3 fl 09/25/2016 Cbc With Differential Ord2 MCH 28.3 pg 09/25/2016 Cbc With Differential Ord2 [place]% 8.2 % 09/25/2016 Cbc With Differential Ord2 Eos% 0.2 % 09/25/2016 Cbc With Differential Ord2 MCHC 33.2 pg 09/25/2016 Cbc With Differential Ord2 PLT 294 K/ul 09/25/2016 Cbc With Differential Ord2 Baso% 0.7 % 09/25/2016 Cbc With Differential Ord2 Neut ABS# 2.49 K/ul 09/25/2016 Cbc With Differential Ord2 RDW 14.9 % 09/25/2016 Cbc With Differential Ord2 Lymph ABS# 1.29 K/ul 09/25/2016 Cbc With Differential Ord2 [place] ABS# 0.3 K/ul 09/25/2016 Cbc With Differential Ord2 Eos ABS# 0.0 K/ul 09/25/2016 Cbc With Differential Ord2 Baso ABS# 0.0 K/ul 09/25/2016 Tsh Ord6 hTSH II 1.01 uIU/mL 09/25/2016 Tsh Ord6 hTSH II 1.35 uIU/mL 06/04/2016 Comp Metabolic Rgs119 NA 135 mEq/L 06/04/2016 Comp Metabolic Nud113 K 3.8 mEq/L 06/04/2016 Comp Metabolic Zmx957 CL 99 mEq/L 06/04/2016 Comp Metabolic Jeb942 CO2 30.0 mEq/L 06/04/2016 Comp Metabolic Cci132 AN ION GAP 10 06/04/2016 Comp Metabolic Xby919 GL UCOSE 171 mg/dL 06/04/2016 Comp Metabolic Jew395 Cr eat 1.0 mg/dL 06/04/2016 Comp Metabolic Vtp030 eG FR 59 ml/min/1.73m2 06/04 Comp Metabolic Spz999 BUN 22 mg/dL 06/04/2016 Comp Metabolic Ptj096 B/ C Ratio 22.4 Ratio 06/04/2016 Comp Metabolic Mna617 CA LCIUM 10.4 mg/dL 06/04/2016 Comp Metabolic Svh395 AL K PHOS 68 U/L 06/04/2016 Comp Metabolic Hlx055 T(SGOT) 22 U/L 06/04/2016 Comp Metabolic Dpp120 AL T(SGPT) 25 U/L 06/04/2016 Comp Metabolic Gnw984 BI LI T 0.4 mg/dL 06/04/2016 Comp Metabolic Fnz934 AL BUMIN 4.5 g/dL 06/04/2016 Comp Metabolic Zia141 TP RO 7.0 g/dL 06/04/2016 Comp Metabolic Lsj552 GL OB 2.5 g/dL 06/04/2016 Comp Metabolic Ydt611 A/ G Ratio 1.8 Ratio 06/04/2016 Comp Metabolic Xld803 Os mo 277 mOsmo 06/04/2016 Cbc With Differential Ord2 WBC 6.57 K/ul 06/04/2016 Cbc With Differential Ord2 RBC 4.47 M/ul 06/04/2016 Cbc With Differential Ord2 HGB 13.0 g/dl 06/04/2016 Cbc With Differential Ord2 Neut% 66.4 % 06/04/2016 Cbc With Differential Ord2 HCT 38.7 % 06/04/2016 Cbc With Differential Ord2 Lymph% 24.0 % 06/04/2016 Cbc With Differential Ord2 MCV 86.6 fl 06/04/2016 Cbc With Differential Ord2 MCH 29.1 pg 06/04/2016 Cbc With Differential Ord2 [place]% 7.9 % 06/04/2016 Cbc With Differential Ord2 [...] 1.58 K/ul 06/04/2016 Cbc With Differential Ord2 [place] ABS# 0.5 K/ul 06/04/2016 Cbc With Differential Ord2 Eos ABS# 0.1 K/ul 06/04/2016 Cbc With Differential Ord2 Baso ABS# 0.1 K/ul 06/04/2016 %Hba1C Lcb596 % HbA1c 56624-0 8.7 % 06/04/2016 %Hba1C Hvf218 Gluc Ave 203 mg/dL 06/04/2016 Free T4 Ynk317 FREE T4 0.84 ng/dL 06/04/2016 Lipid Ord30 CHOL 111 mg/dL 06/04/2016 Lipid Ord30 HDL 51.0 mg/dl 06/04/2016 Lipid Ord30 TRIG 185 mg/dL 06/04/2016 Lipid Ord30 LDL 23 mg/dL 06/04/2016 Lipid Ord30 C/HDL 2.2 Ratio 06/04/2016 Microalbumin Hut222 Micr oAlb <0.7 mg/dL 06/04/2016 Comp Metabolic Jem615 NA 142 mEq/L 03/12/2016 Comp Metabolic Gxl845 K 4.1 mEq/L 03/12/2016 Comp Metabolic Mpq459 CL 103 mEq/L 03/12/2016 Comp Metabolic Nmx049 CO2 30.0 mEq/L 03/12/2016 Comp Metabolic Nli197 AN ION GAP 13 03/12/2016 Comp Metabolic Myn867 GL UCOSE 138 mg/dL 03/12/2016 Comp Metabolic Wqb731 Cr eat 0.8 mg/dL 03/12/2016 Comp Metabolic Hzm843 eG FR 75 ml/min/1.73m2 03/12 Comp Metabolic Jnb842 BUN 18 mg/dL 03/12/2016 Comp Metabolic Eoy465 B/ C Ratio 22.8 Ratio 03/12/2016 Comp Metabolic Xbd984 CA LCIUM 9.8 mg/dL 03/12/2016 Comp Metabolic Pzk656 AL K PHOS 83 U/L 03/12/2016 Comp Metabolic Pcn214 T(SGOT) 15 U/L 03/12/2016 Comp Metabolic Deu631 AL T(SGPT) 20 U/L 03/12/2016 Comp Metabolic Wld563 BI LI T 0.4 mg/dL 03/12/2016 Comp Metabolic Mis039 AL BUMIN 4.2 g/dL 03/12/2016 Comp Metabolic Afr747 TP RO 6.4 g/dL 03/12/2016 Comp Metabolic Qxl187 GL OB 2.2 g/dL 03/12/2016 Comp Metabolic Gaj879 A/ G Ratio 1.9 Ratio 03/12/2016 Comp Metabolic Ztg673 Os mo 287 mOsmo 03/12/2016 %Hba1C Wyy686 % HbA1c 62277-6 7.2 % 03/12/2016 %Hba1C Lia431 Gluc Ave 160 mg/dL 03/12/2016 Comp Metabolic Meg517 NA 138 mEq/L 10/18/2015 Comp Metabolic Kik049 K 4.1 mEq/L 10/18/2015 Comp Metabolic Cus531 CL 97 mEq/L 10/18/2015 Comp Metabolic Azg356 CO2 32.0 mEq/L 10/18/2015 Comp Metabolic Gxb539 AN ION GAP 13 10/18/2015 Comp Metabolic Qxg509 GL UCOSE 145 mg/dL 10/18/2015 Comp Metabolic Quh960 Cr eat 1.1 mg/dL 10/18/2015 Comp Metabolic Siv407 eG FR 50 ml/min/1.73m2 10/17 Comp Metabolic Kbo852 BUN 23 mg/dL 10/18/2015 Comp Metabolic Xwo410 B/ C Ratio 20.4 Ratio 10/18/2015 Comp Metabolic Xub715 CA LCIUM 10.3 mg/dL 10/18/2015 Comp Metabolic Xqo272 AL K PHOS 59 U/L 10/18/2015 Comp Metabolic Gxz722 T(SGOT) 17 U/L 10/18/2015 Comp Metabolic Edw143 AL T(SGPT) 21 U/L 10/18/2015 Comp Metabolic Gyj846 BI LI T 0.4 mg/dL 10/18/2015 Comp Metabolic Wzr581 AL BUMIN 4.6 g/dL 10/18/2015 Comp Metabolic Gst806 TP RO 7.1 g/dL 10/18/2015 Comp Metabolic Ezc318 GL OB 2.5 g/dL 10/18/2015 Comp Metabolic Wlw883 A/ G Ratio 1.9 Ratio 10/18/2015 Comp Metabolic Imh181 Os mo 282 mOsmo 10/18/2015 Tsh Ord6 hTSH II 1.81 uIU/mL 10/18/2015 %Hba1C Spd450 % HbA1c 22393-6 7.3 % 10/18/2015 %Hba1C Nfn666 Gluc Ave 163 mg/dL 10/18/2015 Iron Ord72 Iron 90 ug/dl 10/18/2015 Free T4 Lkd507 FREE T4 0.75 ng/dL 10/18/2015 Cbc With [...] 26.2 % 10/18/2015 Cbc With Differential Ord2 [place]% 6.8 % 10/18/2015 Cbc With Differential Ord2 MCH 29.0 pg 10/18/2015 Cbc With Differential Ord2 Eos% 3.0 % 10/18/2015 Cbc With Differential Ord2 MCHC 32.8 pg 10/18/2015 Cbc With Differential Ord2 PLT 360 K/ul 10/18/2015 Cbc With Differential Ord2 Baso% 0.7 % 10/18/2015 Cbc With Differential Ord2 RDW 14.9 % 10/18/2015 Cbc With Differential Ord2 Neut ABS# 4.67 K/ul 10/18/2015 Cbc With Differential Ord2 Lymph ABS# 1.93 K/ul 10/18/2015 Cbc With Differential Ord2 [place] ABS# 0.5 K/ul 10/18/2015 Cbc With Differential [...] Lipid Ord30 C/HDL 2.3 Ratio 10/18/2015 TSH 3571125 TSH 1.042 uIU/ML 12/24/2012 A1C HPLC 5765794 A1C HPLC 16861-8 7.6 % 12/24/2012 ESR 2051563 ESR 2 MM/HR 12/23/2012 CHEM 14 8118912 AST 20 U/L 12/23/2012 CHEM 14 4496605 ALT 24 IU/L 12/23/2012 CHEM 14 3937685 BUN 16 MG/DL 12/23/2012 CHEM 14 3191445 ALBUMIN 4.7 GM/DL 12/23/2012 CHEM 14 2759920 CHLORIDE 102 MMOL/L 12/23/2012 CHEM 14 8448040 BILI TOT 0.3 MG/DL 12/23/2012 CHEM 14 5547235 ALK PHOS 109 U/L 12/23/2012 CHEM 14 4301129 SODIUM 142 MMOL/L 12/23/2012 CHEM 14 4118187 CREATINI NE 0.93 MG/DL 12/23/2012 CHEM 14 5545617 CALCIUM 10.0 MG/DL 12/23/2012 CHEM 14 7314693 POTASSIUM 3.7 MMOL/L 12/23/2012 CHEM 14 1838833 PROT TOT 7.2 GM/DL 12/23/2012 CHEM 14 7714727 GLUCOSE 116 MG/DL 12/23/2012 CHEM 14 7645312 BICARB 32 MMOL/L 12/23/2012 CHEM 14 4629013 ANION GAP 8 MEQ/L 12/23/2012 GFR CALC 5705602 GFR AA >60 ML/MIN 12/23/2012 GFR CALC 6429126 GFR NON -AA 59.0L ML/MIN 3 CBC 8219618 WBC 5.5 10e9/L 12/23/2012 CBC 8328374 RBC 4.90 10e12/L 12/23/2012 CBC 2185709 HGB 14.1 g/dL 12/23/2012 CBC 1817373 HCT DET 42.4 % 12/23/2012 CBC 4476734 MCV 86.5 fL 12/23/2012 CBC 6679393 MCH 28.8 pg 12/23/2012 CBC 4915059 MCHC 33.3 g/dL 12/23/2012 CBC 7146246 PLT 320 10e9/L 12/23/2012 CBC 7032468 MPV 9.9 fL 12/23/2012 CBC 8658270 BRANDIE % 63.7 % 12/23/2012 CBC 5805354 LY % 24.6 % 12/23/2012 CBC 2712614 MON % 6.3 % 12/23/2012 CBC 2682552 EOS % 4.7 % 12/23/2012 CBC 4372018 BASO % 0.7 % 12/23/2012 CBC 3009099 RDW 15.0 % 12/23/2012 CBC 4932643 ABS BRANDIE 3.50 10e9/L 12/23/2012 CBC 5708994 ABS LYMPH 1.35 10e9/L 12/23/2012 CBC 0814443 ABS MONO 0.35 10e9/L 12/23/2012 CBC 4063530 ABS EOS 0.26 10e9/L 12/23/2012 CBC 8178627 ABS BASO 0.04 10e9/L 12/23/2012 CBC 3925569 RDW-SD 47.1 fL 12/23/2012 CRP 6718313 CRP 0.1 MG/DL 12/23/2012 URINALYSIS NONAUTO W/O SCOPE 84762 Specific [place] 1.005 DateTime(Free Text in Apr) URINALYSIS NONAUTO W/O SCOPE 06729 PH 7.5 DateTime(Free Mina t in Apr) URINALYSIS NONAUTO W/O SCOPE 73097 GLUCOSE NEG DateTime(Free Mina t in Aprima) URINALYSIS NONAUTO W/O SCOPE 21425 Protein NEG DateTime(Free Mina t in Apr) URINALYSIS NONAUTO W/O SCOPE 78599 Blood NEG DateTime(Free Mina t in Apr) URINALYSIS NONAUTO W/O SCOPE 69923 Bilirubin NEG DateTime(Free Mina t in ) URINALYSIS NONAUTO W/O SCOPE 52640 Ketones NEG DateTime(Free Mina t in Apr) URINALYSIS NONAUTO W/O SCOPE 09133 Urobilinogen NEG DateTime(Free Text in ) URINALYSIS NONAUTO W/O SCOPE 35236 Nitrite NEG DateTime(Free Mina t in ) URINALYSIS NONAUTO W/O SCOPE 82756 Leukocytes NEG DateTime(Free Text in ) Review [...] 01/2016 Neurologic No dizziness 11/23/2015 Neurologic headache 0401/2016 Neurologic No pain, facial 11/23/2015 Neurologic neck [...] 12/15/2012 Neurologic paresthesia 0 12/15/2012 Neurologic weakness 04/2 04/2013 Psychiatric No anxiety 0 12/15/2012 Psychiatric depression [...] 02/12/2012 Neurologic paresthesia 0 02/12/2012 Neurologic weakness /2 01/2012 Constitutional No night sweats 02/05/2012 Constitutional No [...] clear 06/12/2018 None Full Exam - General 1995 Ears/Nose/Throat [...] appearance 05/02/2017 None Full Exam - General 1995 Ears/Nose/Throat [...] masses 01/26/2013 None Full Exam - General 1995 [...] Procedure Codes Date THER/PROPH/DIAG INJ SC/IM CPT-4: 43148 05/26/2018 TRIAMCINOLONE ACET I [place] NOS CPT-4: J3301 05/26/2018 FLU VAC NO PRSV 4 VA L 3 YRS+ CPT-4: 53041 05/02/2017 ADMIN INFLUENZA VIRU S VAC CPT-4: G0008 05/02/2017 ADMIN PNEUMOCOCCAL V ACCINE SNOMED CT: 87433597 CPT-4: G0009 05/02/2017 PNEUMOCOCCAL VACC [address]: 43922106 CPT-4: 34117 05/02/2017 FLU VAC NO PRSV 4 VA L 3 YRS+ CPT-4: 44836 05/06/2014 ADMIN PNEUMOCOCCAL V ACCINE SNOMED CT: 83016261 CPT-4: G0009 05/06/2014 PRESCRIP TRANSMIT A ERX SY CPT-4: G8553 06/12/2013 PRESCRIP TRANSMIT A ERX SY CPT-4: G8553 05/20/2013 ADMIN INFLUENZA VIRU S VAC CPT-4: G0008 04/27/2013 FLULAVAL VACC, 3 YRS & >, IM CPT-4: Q2036 04/27/2013 PRESCRIP TRANSMIT A ERX SY CPT-4: G8553 04/09/2013 PRESCRIP TRANSMIT A ERX SY CPT-4: G8553 01/26/2013 ROUTINE VENIPUNCTURE CPT-4: 63331 12/23/2012 PRESCRIP TRANSMIT A ERX SY CPT-4: G8553 06/09/2012 ROCEPHIN, PER 250 MG CPT-4: J0696 02/12/2012 TRIAMCINOLONE ACET I [place] NOS CPT-4: J3301 02/12/2012 PRESCRIP TRANSMIT A ERX SY CPT-4: G8553 02/12/2012 ROCEPHIN, PER 250 MG CPT-4: J0696 02/05/2012 URINALYSIS NONAUTO W /O SCOPE CPT-4: 04753 11/14/2011 REMOVE IMPACTED EAR WAX UNI CPT-4: 97569 08/28/2011 PRESCRIP TRANSMIT A ERX SY CPT-4: G8553 08/28/2011 ROCEPHIN, PER 250 MG CPT-4: J0696 08/23/2011 TRIAMCINOLONE ACET I [place] NOS CPT-4: J3301 08/23/2011 THER/PROPH/DIAG INJ SC/IM CPT-4: 29050 08/23/2011 PRESCRIP TRANSMIT A ERX SY CPT-4: G8553 08/23/2011 OCCULT BLOOD FECES CPT- 4: 47638 06/19/2011 URINALYSIS NONAUTO W /O SCOPE CPT-4: 59580 06/19/2011 PRESCRIP TRANSMIT A ERX SY CPT-4: G8553 06/19/2011 ADMIN INFLUENZA VIRU S VAC CPT-4: G0008 06/05/2011 FLULAVAL VACC, 3 YRS & >, IM CPT-4: Q2036 06/05/2011 Vital Signs Date Vital 06/12/2018 Blood Pressure 1: 142/68 Code: 8480-6 BMI: 30.0 Code: 94969-8 Heart Rate 1: 91 bpm Height: 5'3" SpO2: 96% Weight: 172 lbs 05/26/2018 Blood Pressure 1: 142/72 Code: 8480-6 BMI: 30.0 Code: 04226-4 Heart Rate 1: 92 bpm Height: 5'3" SpO2: 96% Weight: 172 lbs 04/01/2018 Blood Pressure 1: 120/58 Code: 8480-6 BMI: 29.1 Code: 49267-0 Heart Rate 1: 83 bpm Height: 5'3" Respiratory Rate: 18 bpm SpO2: 95% Weight: 167 lbs 11/25/2017 Blood Pressure 1: 128/58 Code: 8480-6 BMI: 29.8 Code: 62050-9 Heart Rate 1: 83 bpm Height: 5'3" SpO2: 99% Weight: 171 lbs 09/18/2017 Blood Pressure 1: 140/72 Code: 8480-6 BMI: 30.3 Code: 50279-7 Heart Rate 1: 99 bpm Height: 5'3" SpO2: 97% Weight: 174 lbs 05/02/2017 Blood Pressure 1: 122/64 Code: 8480-6 BMI: 29.5 Code: 49423-7 Heart Rate 1: 81 bpm Height: 5'3" SpO2: 97% Weight: 169 lbs 03/29/2017 Blood Pressure 1: 134/68 Code: 8480-6 BMI: 30.0 Code: 09574-7 Heart Rate 1: 89 bpm Height: 5'3" SpO2: 98% Weight: 172 lbs 11/15/2016 Blood Pressure 1: 148/72 Code: 8480-6 BMI: 29.5 Code: 18447-4 Heart Rate 1: 102 bpm Height: 5'3" SpO2: 98% Weight: 169 lbs 11/06/2016 Blood Pressure 1: 140/78 Code: 8480-6 BMI: 29.8 Code: 69998-4 Heart Rate 1: 100 bpm Height: 5'3" SpO2: 97% Weight: 171 lbs 08/01/2016 Blood Pressure 1: 128/56 Code: 8480-6 BMI: 30.3 Code: 74684-7 Heart Rate 1: 88 bpm Height: 5'3" SpO2: 97% Weight: 174 lbs 07/02/2016 Blood Pressure 1: 126/62 Code: 8480-6 BMI: 31.0 Code: 12660-9 Heart Rate 1: 101 bpm Height: 5'3" SpO2: 97% Weight: 178 lbs 06/04/2016 Blood Pressure 1: 136/72 Code: 8480-6 BMI: 31.4 Code: 24897-2 Heart Rate 1: 103 bpm Height: 5'3" SpO2: 98% Weight: 180 lbs 03/26/2016 Blood Pressure 1: 134/74 Code: 8480-6 BMI: 30.7 Code: 47478-3 Heart Rate 1: 93 bpm Height: 5'3" SpO2: 98% Weight: 176 lbs 11/23/2015 Blood Pressure 1: 128/77 Code: 8480-6 BMI: 30.2 Code: 69166-3 Heart Rate 1: 74 bpm Height: 5'3" SpO2: 96% Weight: 173 lbs 10/14/2015 Blood Pressure 1: 122/72 Code: 8480-6 BMI: 30.3 Code: 57287-9 Heart Rate 1: 76 bpm Height: 5'3" SpO2: 97% Weight: 174 lbs 03/31/2015 Blood Pressure 1: 140/68 Code: 8480-6 BMI: 30.0 Code: 50340-8 Heart Rate 1: 93 bpm Height: 5'3" SpO2: 94% Weight: 172 lbs 08/31/2014 Blood Pressure 1: 122/74 Code: 8480-6 BMI: 31.2 Code: 74577-7 Heart Rate 1: 76 bpm Height: 5'3" Weight: 179 lbs 08/10/2014 Blood Pressure 1: 138/62 Code: 8480-6 BMI: 31.0 Code: 15199-7 Heart Rate 1: 80 bpm Height: 5'3" Weight: 178 lbs 05/06/2014 BMI: 31.2 Code: 94036-1 Height: 5'3" Weight: 179 lbs 04/14/2014 Blood Pressure 1: 136/68 Code: 8480-6 BMI: 31.4 Code: 42812-9 Heart Rate 1: 74 bpm Height: 5'3" Weight: 180 lbs 11/10/2013 Blood Pressure 1: 102/50 Code: 8480-6 BMI: 30.7 Code: 14922-0 Heart Rate 1: 76 bpm Height: 5'3" Weight: 176 lbs 07/14/2013 Blood Pressure 1: 136/80 Code: 8480-6 BMI: 30.3 Code: 89857-1 Heart Rate 1: 70 bpm Height: 5'3" Weight: 174 lbs 06/12/2013 Blood Pressure 1: 142/82 Code: 8480-6 BMI: 30.9 Code: 01937-6 Heart Rate 1: 72 bpm Height: 5'3" Weight: 177 lbs 05/20/2013 Blood Pressure 1: 132/70 Code: 8480-6 BMI: 31.2 Code: 72117-7 Heart Rate 1: 88 bpm Height: 5'3" Weight: 179 lbs 04/09/2013 Blood Pressure 1: 136/70 Code: 8480-6 BMI: 31.0 Code: 58983-5 Heart Rate 1: 100 bpm Height: 5'3" Weight: 178 lbs 01/26/2013 Blood Pressure 1: 118/56 Code: 8480-6 BMI: 30.7 Code: 82950-9 Heart Rate 1: 87 bpm Height: 5'3" Weight: 176 lbs 12/23/2012 Blood Pressure 1: 136/76 Code: 8480-6 Heart Rate 1: 104 bpm Respiratory Rate: 20 bpm Weight: 178 lbs 12/15/2012 Blood Pressure 1: 150/82 Code: 8480-6 Heart Rate 1: 100 bpm Temperature: 36.7 (C) / 98.1 (F) Weight: 178 lbs 10/22/2012 Blood Pressure 1: 138/82 Code: 8480-6 BMI: 30.2 Code: 90592-7 Heart Rate 1: 100 bpm Height: 5'3" Weight: 173 lbs 08/21/2012 Blood Pressure 1: 136/70 Code: 8480-6 BMI: 30.6 Code: 88766-8 Heart Rate 1: 98 bpm Height: 5'3" Weight: 175 lbs 8 oz 07/17/2012 Blood Pressure 1: 152/68 Code: 8480-6 BMI: 29.9 Code: 75420-0 Heart Rate 1: 92 bpm Height: 5'3" [...] 1: 122/68 Code: 8480-6 BMI: 29.5 Code: 96094-0 Heart Rate 1: 96 bpm Height: 5'3" [...] 1: 130/72 Code: 8480-6 BMI: 30.4 Code: 70223-0 Heart Rate 1: 92 bpm Height: 5'3" Respiratory Rate: 16 bpm Weight: 174 lbs 8 oz 06/19/2011 Blood Pressure 1: 122/70 Code: 8480-6 BMI: 30.2 Code: 92716-5 Heart Rate 1: 104 bpm Height: 5'3" Weight: 173 lbs 06/05/2011 Blood Pressure 1: 100/50 Code: 8480-6 BMI: 29.6 Code: 02402-1 Heart Rate 1: 96 bpm Height: 5'3" Respiratory Rate: 16 bpm Weight: 170 lbs Functional Status No Functional Status data History of Present Illness Symptom Name Status Resu lt Effective Date Notes cough Location in the roat 06/12/2018 None cough Limitation on Activities [...] resolved 06/12/2018 None cough Location in the roat 05/26/2018 None cough Quality productive 05/26/2018 [...] Findings Denies edema 03/31/2015 None ~generic Location [facility] 03/31/2015 reports stiff neck which she is [...] stre ss 08/21/2012 Pt states that her husalan d is the largest cause of her [...] recently started s eeking counseling from her pearl stringer. depression Pertinent Findings anxiety 08/21/2012 None depression [...] recently started s eeking counseling from her pearl stringer. depression Pertinent Findings anxiety 07/17/2012 None depression [...] Encounters Encounter Performer Loca tion Codes Date ([id number]) [id number] EST. P ATIENT, LEVEL III Diagnosis: Gastro-esophageal reflux disease without esophagitis[ICD10: K21.9] [facility] CPT-4: 57038 06/12/2018 ([id number]) [id number] EST. P ATIENT, LEVEL III Diagnosis: Gastro-esophageal reflux disease without esophagitis[ICD10: K21.9] Diagnosis: Cough[ICD10: R05] [facility] CPT-4: 33423 05/26/2018 ([id number]) [id number] EST. 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 P ATIENT, LEVEL IV Diagnosis: Type 2 diabetes mellitus with hyperglycemia[ICD10: E11.65] Diagnosis: Essential (primary) hypertension[ICD10: I10] Amy Cheung MD, [facility] [facility] 90995 11/25/2017 ([id number]) 30029 EST. P ATIENT, LEVEL IV Diagnosis: Type 2 diabetes mell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[ICD10: E11.9] Diagnosis: Mixed hyperlipidemia[ICD10: E78.2] Diagnosis: Candidal stomatitis[ICD10: B37.0] Amy Cheung MD, [facility] CPT-4: 63045 09/18/2017 ([id number]) 33192 EST. P ATIENT, LEVEL IV Diagnosis: Type 2 diabetes mell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[ICD10: E11.9] Diagnosis: Mixed hyperlipidemia[ICD10: E78.2] Diagnosis: Essential (primary) hypertension[ICD10: I10] Diagnosis: Encounter for immunization[ICD10: Z23] Amy Cheung MD, [facility] CPT-4: 25537 05/02/2017 ([id number]) 17562 EST. P ATIENT, LEVEL III Diagnosis: Candidal stomatitis[ICD10: B37.0] Riya Cheung MD, [facility] CPT- 4: 52828 03/29/2017 ([id number]) 43485 EST. P ATIENT, LEVEL IV Diagnosis: Essential (primary) hypertension[ICD10: I10] Diagnosis: Type 2 diabetes mell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[ICD10: E11.9] Amy Cheung MD, [facility] CPT-4: 69349 11/15/2016 40764 EST. PATIENT, LEVEL III Diagnosis: Other malaise[ICD10: R53.81] Diagnosis: Other fatigue[ICD10: R53.83] Diagnosis: Type 2 diabetes mellitus with hyperglycemia[ICD10: E11.65] Diagnosis: Essential (primary) hypertension[ICD10: I10] Diagnosis: Weakness[ICD10: R53.1] Mariana Cheung MD, [facility] CPT-4: 98089 11/06/2016 ([id number]) 68720 EST. P ATIENT, LEVEL III Diagnosis: Type 2 diabetes mellitus with hyperglycemia[ICD10: E11.65] Amy Cheung MD, [facility] CPT-4: 27259 08/01/2016 ([id number]) 26185 EST. P ATIENT, LEVEL III Diagnosis: Type 2 diabetes mellitus with hyperglycemia[ICD10: E11.65] Diagnosis: Gastroparesis[ICD10: K31.84] Amy Cheung MD, [facility] CPT-4: 69857 07/02/2016 ([id number]) 12702 EST. P ATIENT, LEVEL IV Diagnosis: Type 2 diabetes mellitus with hyperglycemia[ICD10: E11.65] Diagnosis: Hypothyroidism, unspecified[ICD10: E03.9] Amy Cheung MD, [facility] CPT-4: 25294 06/04/2016 ([id number]) 56576 EST. P ATIENT, LEVEL IV Diagnosis: Type 2 diabetes mellitus with hyperglycemia[ICD10: E11.65] Diagnosis: Mixed hyperlipidemia[ICD10: E78.2] Diagnosis: Essential (primary) hypertension[ICD10: I10] Amy Cheung MD, [facility] CPT-4: 74832 03/26/2016 ([id number]) 10549 EST. P ATIENT, LEVEL III Diagnosis: Essential (primary) hypertension[ICD10: I10] Diagnosis: Adjustment disorder with mixed anxiety and depressed mood[ICD10: F43.23] Amy Cheung MD, [facility] CPT-4: 22173 11/23/2015 ([id number]) 41392 EST. P ATIENT, LEVEL IV Diagnosis: Type 2 diabetes mellitus with hyperglycemia[ICD10: E11.65] Diagnosis: Panic disorder [episodic paroxysmal anxiety] without agoraphobia[ICD10: F41.0] Diagnosis: Adjustment disorder with mixed anxiety and depressed mood[ICD10: F43.23] Diagnosis: Essential (primary) hypertension[ICD10: I10] Amy Cheung MD, C CPT-4: 44186 10/14/2015 ([id number]) 03399 EST. P ATIENT, LEVEL IV Diagnosis: DIABETES TYPE II[ICD9: 250.00] Diagnosis: GENERALIZED ANXIETY DISEASE[ICD9: 300.02] Diagnosis: ESSENTIAL HYPERTENSION[ICD9: 401.9] Diagnosis: ESOPHAGEAL REFLUX[ICD9: 530.81] Amy Cheung MD, [facility] CPT-4: 04930 03/31/2015 ([id number]) 61674 EST. P ATIENT, LEVEL IV Diagnosis: DM W/O COMPLICATION TYPE II, UNCONTROLLED[ICD9: 250.02] Diagnosis: ESSENTIAL HYPERTENSION[ICD9: 401.9] Diagnosis: DEPRESSIVE DISORDER NEC[ICD9: 311] Diagnosis: GENERALIZED ANXIETY DISEASE[ICD9: 300.02] Amy Cheung MD [facility] CPT-4: 68371 08/31/2014 ([id number]) 02666 EST. P ATIENT, LEVEL IV Diagnosis: ESSENTIAL HYPERTENSION[ICD9: 401.9] Diagnosis: DIABETES TYPE II[ICD9: 250.00] Diagnosis: Constipation - functional[ICD9: 564.09] Diagnosis: Abdominal pain[ICD9: 789.00] Amy Cheung MD, [facility] CPT-4: 05106 08/10/2014 ([id number]) 96761 EST. P ATIENT, LEVEL III Diagnosis: Flu vaccine need[ICD9: V04.81] Diagnosis: Neck pain[ICD9: 723.1] Diagnosis: Chronic allergic rhinitis[ICD9: 477.9] Amy Cheung MD, [facility] CPT-4: 68208 05/06/2014 ([id number]) 45825 EST. P ATIENT, LEVEL IV Diagnosis: DM W/O COMPLICATION TYPE II, UNCONTROLLED[ICD9: 250.02] Diagnosis: GENERALIZED ANXIETY DISEASE[ICD9: 300.02] Diagnosis: ESSENTIAL HYPERTENSION[ICD9: 401.9] Diagnosis: Neck pain[ICD9: 723.1] Amy Cheung MD, [facility] CPT-4: 20888 04/14/2014 ([id number]) 83060 EST. P ATIENT, LEVEL IV Diagnosis: ESSENTIAL HYPERTENSION[SNOMED: 35394437] Diagnosis: DIABETES TYPE II[SNOMED: 972581187] Diagnosis: Iliotibial band syndrome[ICD9: 728.89] Diagnosis: DEPRESSIVE DISORDER NEC[ICD9: 311] Diagnosis: GENERALIZED ANXIETY DISEASE[ICD9: 300.02] Amy Cheung MD, [facility] CPT-4: 00996 11/10/2013 ([id number]) 51149 EST. P ATIENT, LEVEL III Diagnosis: DIABETES TYPE II[SNOMED: 362360321] Amy Cheung MD, [facility] CPT- 4: 29292 07/14/2013 ([id number]) 11099 EST. P ATIENT, LEVEL IV Diagnosis: ESSENTIAL HYPERTENSION[SNOMED: 89787744] Diagnosis: DM W/O COMPLICATION TYPE II, UNCONTROLLED[SNOMED: 15631900] Amy Cheung MD [facility] CPT-4: 98106 06/12/2013 ([id number]) 57874 EST. P ATIENT, LEVEL III Diagnosis: DIABETES TYPE II[SNOMED: 985842176] Amy Cheung MD, [facility] CPT- 4: 33547 05/20/2013 ([id number]) 63382 EST. P ATIENT, LEVEL IV Diagnosis: ESSENTIAL HYPERTENSION[SNOMED: 70562337] Diagnosis: HYPERLIPIDEMIA[ICD9: 272.4] Diagnosis: Type II diabetes mellitus, uncontrolled[SNOMED: 73044850] Amy Cheung MD, [facility] CPT-4: 09646 04/09/2013 ([id number]) 57486 EST. P ATIENT, LEVEL III Diagnosis: ESSENTIAL HYPERTENSION[SNOMED: 92743473] Diagnosis: ENCNTR LONG-RX USE NEC[ICD9: V58.69] Diagnosis: IMPACTED CERUMEN[ICD9: 380.4] Amy Cheung MD, [facility] CPT-4: 21706 01/26/2013 ([id number]) 49541 EST. P ATIENT, LEVEL IV Diagnosis: DIABETES TYPE II[SNOMED: 022980596] Diagnosis: ESSENTIAL HYPERTENSION[SNOMED: 25288197] Diagnosis: Polymyalgia[ICD9: 725] Amy Cheung MD, [facility] CPT-4: 34093 12/23/2012 ([id number]) 66092 EST. P ATIENT, LEVEL III Diagnosis: ACUTE MAXILLARY SINUSITIS[ICD9: 461.0] Diagnosis: COUGH[ICD9: 786.2] [facility] CPT-4: 02528 12/15/2012 ([id number]) 01197 EST. P ATIENT, LEVEL III Diagnosis: ANAL OR RECTAL PAIN[ICD9: 569.42] Diagnosis: Bruising[ICD9: 924.9] Diagnosis: Hip pain[ICD9: 719.45] [facility] CPT-4: 82908 10/22/2012 ([id number]) 31178 EST. P ATIENT, LEVEL IV Diagnosis: ESSENTIAL HYPERTENSION[SNOMED: 74024111] Diagnosis: DIABETES TYPE II[SNOMED: 991147432] [facility] CPT- 4: 78312 08/21/2012 ([id number]) 50086 EST. P ATIENT, LEVEL IV Diagnosis: DIABETES TYPE II[SNOMED: 247132296] Diagnosis: DEPRESSIVE DISORDER NEC[ICD9: 311] Amy Cheung MD [facility] CPT- 4: 87687 07/17/2012 ([id number]) 01616 EST. P ATIENT, LEVEL III Diagnosis: ESSENTIAL HYPERTENSION[SNOMED: 38444411] Diagnosis: DEPRESSIVE DISORDER NEC[ICD9: 311] [facility] CPT- 4: 81104 07/08/2012 40142 EST. PATIENT, LEVEL IV Diagnosis: ESSENTIAL HYPERTENSION[SNOMED: 28664727] Diagnosis: DIABETES TYPE II[SNOMED: 402373003] [facility] CPT- 4: 80676 06/09/2012 ([id number]) 10708 EST. P ATIENT, LEVEL III Diagnosis: Acute sinusitis[ICD9: 461.9] Diagnosis: FEVER NOS[ICD9: 780.60] [facility]Ay [facility] CPT-4: 74150 02/12/2012 ([id number]) 39723 EST. P ATIENT, LEVEL III Diagnosis: Otalgia of both ears[ICD9: 388.70] Diagnosis: Hemorrhoids[ICD9: 455.6] Diagnosis: Rectal or anal pain[ICD9: 569.42] [facility] CPT-4: 85675 02/05/2012 ([id number]) 19691 EST. [facility]: Dysuria[ICD9: 788.1] Diagnosis: ACUTE MAXILLARY SINUSITIS[ICD9: 461.0] Diagnosis: Allergic rhinitis[ICD9: 477.9] Amy Cheung MD [facility] CPT-4: 15393 11/14/2011 ([id number]) 10960 EST. P ATIENT, LEVEL IV Diagnosis: DIABETES TYPE II[SNOMED: 915744070] Diagnosis: Cough[ICD9: 786.2] Diagnosis: FEVER NOS[ICD9: 780.60] Amy Cheung MD [facility] CPT-4: 05273 10/08/2011 21303 EST. PATIENT, LEVEL IV Diagnosis: OTHER CONSTIPATION[ICD9: 564.09] Diagnosis: IMPACTED CERUMEN[ICD9: 380.4] Diagnosis: Recurrent sinusitis[ICD9: 473.9] Amy Cheung MD [facility] CPT-4: 09188 08/28/2011 23044 EST. PATIENT, LEVEL IV Diagnosis: Neck pain, acute[ICD9: 723.1] Diagnosis: Cough[ICD9: 786.2] Diagnosis: Cerumen impaction[ICD9: 380.4] Amy Cheung MD [facility] CPT-4: 24543 08/23/2011 57840 EST. PATIENT, LEVEL IV Diagnosis: ESSENTIAL HYPERTENSION[SNOMED: 42152650] Diagnosis: HYPERLIPIDEMIA[ICD9: 272.4] Diagnosis: DIABETES TYPE II[SNOMED: 485438067] Diagnosis: DEPRESSIVE DISORDER NEC[ICD9: 311] Diagnosis: 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[ICD9: 357.7] Amy Cheung MD, [facility] CPT-4: 79880 07/24/2011 23819 EST. PATIENT, LEVEL IV Diagnosis: Abdominal pain[ICD9: 789.00] Diagnosis: Hematochezia[ICD9: 578.1] Diagnosis: Back pain[ICD9: 724.5] Amy Cheung MD [facility] CPT-4: 88377 06/19/2011 61958 EST. 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] Diagnosis: VACCIN FOR INFLUENZA[ICD9: V04.81] Diagnosis: DEPRESSIVE DISORDER NEC[ICD9: 311] Diagnosis: DIABETES TYPE II[SNOMED: 207888479] Amy Cheung MD, [facility] CPT- 4: 52754 06/05/2011 Plan of Care Planned Activity Notes [...] pills 06/12/2018 Appointment: Amy Cheung WPtel: [phone] [facility] (15 min) Moderate 06/12/2018 Appointment: Riya Sheikh WPtel: [facility]5 [phone] [facility] - Annual Wellness Visit 06/12/2018 Patient Education: Patient Medication Summary Completed 06/12/2018 Visit Plan: Esophageal Reflux - the patient has been counseled against excessive intake of caffeine, spicy foods, peppermint, and cinnamon - all of which can exacerbate esophageal reflux. The patient is to take medications as prescribed and call the office if the symptoms are not improving. Eqtqu-jysshqsuu-hwmlczc injection today in the office -start claritin [...] WPtel: [phone] [facility] [place] (15 min) Moderate 04/01/2018 Patient Education: Patient Medication Summary Completed 04/01/2018 Patient Education: Patient Medication Summary Completed 03/31/2018 Appointment: Amy Cheung WPtel: [phone] [facility] [place] (15 min) Moderate 01/15/2018 Visit Plan: [...] WPtel: [phone] [facility] [place] (15 min) Moderate 11/25/2017 Patient Education: [...] nystatin 09/18/2017 [facility]ment[phone] ([facility] min) Moderate 09/18/2017 Patient Education: [...] today 05/02/2017 Appointment: [phone] [place] (15 min) Moderate 05/02/2017 Patient Education: Patient Medication Summary Completed 05/02/2017 Appointment: Amy Cheung WPtel: [facility] (15 min) Moderate 04/15/2017 Visit Plan: Thrush-discussed natura l and expected course of this diagnosis and to alert me if symptoms do not follow expected course, or if any worse. RX sent to patient's pharmacy. Patient verbalized understanding of plan. 03/29/2017 App[facility]ment[phone] [place] (30 min) Complex 03/29/2017 Patient Education: Patient Medication Summary Completed 03/29/2017 Patient Education: Obesity Completed 03/29/2017 Appointment: Amy Cheung WPtel: [facility] (15 min) Moderate 03/14/2017 Visit Plan: [...] at home. 11/15/2016 Appointment: Amy Cheung WPtel: [facility] [place] (15 min) Moderate 11/15/2016 Patient Education: Patient Medication Summary Completed 11/15/2016 Appointment: Amy Cheung WPtel: [facility] [place] (15 min) Moderate 11/07/2016 Visit Plan: [...] control. 11/06/2016 Appointment: Mar[facility] Iss[phone] (30 min) Complex 11/06/2016 Patient Education: Patient Medication Summary Completed 11/06/2016 Patient Education: Patient Medication Summary Completed 09/19/2016 Patient Education: Patient Medication Summary Completed 08/22/2016 Care Plan: Comp Metabolic Pending 08/22/2016 Care Plan: %Hba1C she can have drawn anytime after 09/04/16 LOINC : 11178-5 Pending 08/22/2016 Visit Plan: Diabetes Mellitus - [...] clinic. 08/01/2016 Appointment: [phone] (15 min) Moderate 08/01/2016 Patient Education: Patient Medication Summary Completed 08/01/2016 Appointment: [phone] (15 min) Moderate 07/09/2016 Visit Plan: [...] GI motility 07/02/2016 Appointment: Amy [facility]ung [facility]Ptel[facility] 101 [facility] (15 min) Moderate 07/02/2016 Patient Education: [...] of control. 06/04/2016 Appointment: [facility]el[phone] (15 min) Moderate 06/04/2016 Patient Education: [...] to medications. 03/26/2016 Appointment: [facility]el[phone] (15 min) Moderate 03/26/2016 Patient Education: [...] Hypertension Completed 10/14/2015 Appointment: [facility]el[phone] [place] (15 min) Moderate 10/13/2015 Appointment: Amy Cheung WPtel: [phone] [facility] (15 min) Moderate 05/09/2015 Visit Plan: Diabetes [...] cancer. 03/31/2015 Appointment: Amy Cheung WPtel: [address] (15 min) Moderate 03/31/2015 Patient Education: Patient Medication Summary Completed 03/31/2015 Patient Education: Hypertension Completed 03/31/2015 Appointment: (15 min) Moderate 02/11/2015 Appointment: Amy Cheung WPtel: [phone] [facility] Sick 09/29/2014 Visit Plan: Diabetes Mellitus - [...] months. 08/31/2014 Appointment: [facility]el[phone] Follow up 08/31/2014 Patient Education: Patient [...] Completed 08/10/2014 Appointment: Amy Cheung WPtel: [phone] [facility] Follow up 05/10/2014 Visit Plan: Allergies - [...] be ordered. 05/06/2014 Appointment: Amy Cheung WPtel: [phone] [facility] Follow up 05/06/2014 Patient Education: Patient Medication Summary Completed 05/06/2014 Patient Education: .Cervicalgia Neck Pain Completed 05/06/2014 Appointment: [facility]el[phone] Follow up 05/05/2014 Visit Plan: Hypertension - [...] neck. 04/14/2014 Appointment: [facility]el[phone] Follow up 04/14/2014 Patient Education: Patient Medication [...] band exercises. 11/10/2013 Appointment: Skye Amy WPtel: [facility]5 [facility] Other 11/10/2013 Patient Education: Patient Medication Summary [...] monitor symptoms. 07/14/2013 Appointment: Amy Cheung WPtel: [facility]5 [facility] Other 07/14/2013 Patient Education: Patient Medication Summary Completed 07/14/2013 Appointment: Riya Sheikh WPtel: [phone] [facility] Follow up 07/13/2013 Visit Plan: Hypertension [...] control. 06/12/2013 Appointment: Riya Sheikh WPtel: [phone] [facility] Other 06/12/2013 Patient Education: Patient Medication [...] to patient. 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 Kraus as he will ultimately [...] Glyburide restarted. 04/09/2013 Appointment: Amy Cheung WPtel: [address] [place] [address] Follow up 04/09/2013 Patient Education: Patient Medication Summary Completed 04/09/2013 Patient Education: Hypertension Completed 04/09/2013 Appointment: Amy Cheung WPtel: [address] [place], [place] [phone] [place] Follow up 03/30/2013 Visit Plan: Hypertension [...] water today 01/26/2013 Appointment: Amy Cheung WPtel: [facility] Other 01/26/2013 Patient Education: Patient Medication Summary [...] at home. 12/23/2012 Appointment: Amy Cheung WPtel: [address] [place], [place] [phone] Follow up 12/23/2012 Patient Education: Patient Medication Summary Completed 12/23/2012 Patient Education: Hypertension Completed 12/23/2012 Visit Plan: Sinusitis - Pt has acut e infection - pain in face, maxillary region, Pt informed to use decongestant, RX given to patient, sinus rinses also recommended. Call if symptoms do not show improvement. 12/15/2012 Appointment: Amy Cheung WPtel: [address] [place], [place] [phone] Sick 12/15/2012 Patient Education: Patient Medication Summary Completed 12/15/2012 Visit Plan: Bruising and pain post fall- with hip pain - recommended pt to have xray of hips and pelvis and lumbar spine as she is having the pain in her hips post fall. 10/22/2012 Appointment: Amy Cheung WPtel: [facility]5 [facility] Other 10/22/2012 Patient Education: Patient Medication Summary Completed 10/22/2012 Appointment: Amy Cheung WPtel: [address] [place], [place] [phone] Follow up 09/30/2012 Visit Plan: Hypertension - [...] controlled. 08/21/2012 Appointment: [facility]el[phone] Follow up 08/21/2012 Patient Education: Patient [...] that she can have an environment [place] [facility] [place] can [place] and change together. No change to Pat's medications today. Time based documentation -I spent over 40 minutes with the patient in discussion of the disease process, expected course, and overall prognosis for the patient's disease state. The patient/family expressed understanding. 07/17/2012 Appointment: Amy [facility]ung [facility]Ptel[phone] Follow up 07/17/2012 Patient Education: Patient [...] issues today. 07/08/2012 Appointment: Amy Cheung WPtel: [address] [place], [place] [id number] Other 07/08/2012 Patient Education: Patient Medication Summary [...] labs checked. 06/09/2012 Appointment: Amy Cheung WPtel: [address] [place] [address] Other 06/09/2012 Patient Education: Patient Medication Summary Completed 06/09/2012 Patient Education: High Blood Pressure: Essential Hypertension Completed 06/09/2012 Visit Plan: Sinusitis - Pt has acut e infection - pain in face, maxillary region, Pt informed to use decongestant, RX given to patient, sinus rinses also recommended. Call if symptoms do not show improvement. 02/12/2012 Appointment: Amy Cheung WPtel: [address] [place] [address] Other 02/12/2012 Patient Education: Patient Medication Summary [...] place. 02/05/2012 Appointment: Amy Cheung WPtel: [phone] [facility]66[facility] Other 02/05/2012 Patient Education: Patient Medication [...] any worse. Check your thyroid labs at [facility]-we will call you with the results. Allergies - chronic - recommended pt to use allergy medication as prescribed. Pt has been counseled as the the appropriate use of the medication. Pt to call if allergy symptoms are not controlled with the medication. Dysuria - UA negative 11/14/2011 Appointment: Amy Cheung WPtel: [facility] Other 11/14/2011 Appointment: Amy Cheung WPtel: [address] [place], [place] [phone] Other 11/14/2011 Patient Education: Patient Medication Summary Completed 11/14/2011 Visit Plan: Diabetes Mellitus - con myriamed [...] patient today. 10/08/2011 Appointment: Amy Cheung WPtel: [facility]4 [facility]66[facility] Other 10/08/2011 Patient Education: Patient Medication [...] removal process. 08/28/2011 Appointment: Amy Cheung WPtel: [address] [place], [place] [address] Other 08/28/2011 Patient Education: Patient Medication Summary [...] in readings. 07/24/2011 Appointment: Amy Cheung WPtel: [address] [place] [address] Other 07/24/2011 Patient Education: Patient Medication Summary [...] lower back. 06/19/2011 Appointment: Amy Cheung WPtel: [address] [place], [place] [phone] Other 06/19/2011 Patient Education: Patient Medication Summary [...] neuropathic symptoms. 06/05/2011 Appointment: Amy Cheung WPtel: [facility] [facility] 06/05/2011 Patient Education: Patient Medication Summary Completed 06/05/2011 Instructions Comment I sent prescriptions to [facility] for the following medications: LOSARTAN 25MG [...] glucose control. you are due for a jorge blanco pneumovax shot - the every 5 year [...] that she can have an environment [place] [facility] [place] can grow and change together. [...] a copy of this note to her Livestock 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 Kraus as he will ultimately [...] allow for greater blood glucose control. . Abdominal pain - d iscussed [...] office if the symptoms are not improving. Hgyfi-nbbwebpml-brznawb injection today in the office -start claritin [...] any worse. Check your thyroid labs at [facility]-we will call you [...] any worse. Check your thyroid labs at [facility]-we will call you [...] assure normal liver response to medications. . Diabetes Mellitus - controlled - [...]
--- OUTSIDE RECORDS SUMMARY | 2019-08-12 23:05 | XMS REPORT | CCD ---
Author Author Veronica Cheung Organization Amy Cheung MD, [facility] Address [address] [place] [address] Phone Care Team Providers Care Director Dermatology Name Role Phone PP Unavailable CCM Unavailable Summary Purpose Interface Exchange Insurance Providers Payer name Policy type / Coverage type Covered democrat ID Effective Begin Date Effective End Date WPS Medicare Part B Medicare Part B [id number] Unknown GEHA Medicare Part B [id number] Unknown Family history Father Diagnosis Age At [...] Fill Instructions levothyroxine 25 mcg tablet RxNorm: 092088 Tablet(s) TAKE 1 TABL ET DAILY 08/26/2018 02/21/2019 Ac tive montelukast 10 mg ta blet RxNorm: 630282 TAKE 1 TABLET DAILY 07/21/2018 07/15/2019 Active Augmentin 500 mg-125 mg tablet RxNorm: 814821 1 Tablet(s) PO TID 05/27/2018 05/26/2018 Inactive Augmentin 500 mg-125 mg tablet RxNorm: 434116 1 Tablet(s) PO TID 05/27/2018 06/02/2018 Inactive Kenalog 40 mg/mL elizabeth pension for injection RxNorm: 1062663 1 Milliliter(s) Inj 05/26/2018 05/26/2018 In active pilocarpine 5 mg tablet RxNorm: 5002971 Tablet(s) TAKE 4 TABLETS DAILY 04/22/2018 07/15/2019 Ac tive Trulicity 1.5 mg/0.5 mL subcutaneous pen injector RxNorm: 3762530 INJECT 0.5ML SUBCUTANEOUSLY EVERY WEEK 02/24/2018 04/29/2019 Active levothyroxine 25 mcg tablet RxNorm: 468956 TAKE 1 TABLET DAILY 02/13/2018 08/11/2018 Inactive mesalamine 800 mg ta blet,delayed release RxNorm: 949996 TAKE 1 TABLET TWICE A DAY 12/10/2017 12/04/2018 Ac tive metformin 500 mg tablet RxNorm: 287417 1.5 Tablet(s) PO BID 11/25/2017 11/19/2018 Active levothyroxine 25 mcg tablet RxNorm: 654009 TAKE 1 TABLET DAILY 11/19/2017 02/12/2018 Inactive Nexium 40 mg capsule ,delayed release RxNorm: 368998 TAKE 1 CAPSULE TWICE DAILY 11/15/2017 11/09/2018 Ac tive Effexor XR 75 mg cap alma,extended release RxNorm: 914700 1 Capsule(s) PO daily 10/14/2017 10/08/2018 Ac tive Bactroban 2 % topica l cream RxNorm: 528425 1 Application TOP TID 09/18/2017 09/27/2017 Inactive nystatin 100,000 uni t/mL oral suspension RxNorm: 188650 5 Milliliter(s) PO TI D 09/18/2017 09/27/2017 In active oxazepam 10 mg capsule RxNorm: 698050 1 Capsule(s) PO TID as needed anxiety 09/02/2017 02/28/2018 In active fluticasone 50 mcg/a ctuation nasal spray,suspension RxNorm: 0828459 Sarah Ann USE ONE SPRAY IN EACH NOSTRIL TWICE A DAY 08/29/2017 12/26/2017 Inactive oxazepam 10 mg capsule RxNorm: 202388 1 Capsule(s) PO TID as needed anxiety 08/29/2017 09/01/2017 In active furosemide 40 mg tablet RxNorm: 754148 TAKE 1 TABLET DAILY 08/26/2017 08/20/2018 Inactive pilocarpine 5 mg tablet RxNorm: 2408698 TAKE 4 TABLETS DAILY 08/26/2017 04/21/2018 Inactive metformin 500 mg tablet RxNorm: 035232 TAKE 1 TABLET TWICE A DAY 08/20/2017 11/24/2017 Inactive Claritin-D 12 Hour 5 mg-120 mg tablet,extended release RxNorm: 7066218 Tablet(s) TAKE ONE (1) TABLET BY MOUTH TWICE DAILY 07/29/2017 09/26/2017 Inactive fluticasone 50 mcg/a ctuation nasal spray,suspension RxNorm: 9805673 Sarah Ann USE ONE SPRAY IN EACH NOSTRIL TWICE A DAY 07/25/2017 07/24/2017 Inactive fluticasone 50 mcg/a ctuation nasal spray,suspension RxNorm: 3634809 Sarah Ann USE ONE SPRAY IN EACH NOSTRIL TWICE A DAY 07/25/2017 08/28/2017 Inactive fluticasone 50 mcg/a ctuation nasal spray,suspension RxNorm: 8526728 Sarah Ann USE ONE SPRAY IN EACH NOSTRIL TWICE A DAY 06/04/2017 07/24/2017 Inactive montelukast 10 mg ta blet RxNorm: 935130 TAKE 1 TABLET DAILY 06/03/2017 05/28/2018 Inactive levothyroxine 25 mcg tablet RxNorm: 353790 TAKE 1 TABLET DAILY 05/13/2017 11/08/2017 Inactive Voltaren 1 % topical gel RxNorm: 054728 2 Gram(s) TOP QID 05/02/2017 2017 Inactive nystatin 100,000 uni t/mL oral suspension RxNorm: 014871 5 Milliliter(s) PO QI D 03/29/2017 04/11/2017 In active Diflucan 150 mg tablet RxNorm: 511245 1 Tablet(s) PO daily 03/29/2017 05/01/2017 Inactive Trulicity 1.5 mg/0.5 mL subcutaneous pen injector RxNorm: 5692030 INJECT 0.5ML SUBCUTANEOUSLY EVERY WEEK 02/28/2017 01/29/2018 Inactive levothyroxine 25 mcg tablet RxNorm: 682913 1 Tablet(s) PO daily 11/19/2016 11/18/2016 Inactive levothyroxine 25 mcg tablet RxNorm: 210468 1 Tablet(s) PO daily 11/19/2016 05/12/2017 Inactive Claritin 10 mg tablet RxNorm: 360971 1 Tablet(s) PO daily 11/07/2016 11/06/2016 Inactive Claritin 10 mg tablet RxNorm: 224574 1 Tablet(s) PO daily 11/07/2016 12/06/2016 Inactive Zithromax Z-Ankit 250 mg tablet RxNorm: 401485 1 Tablet(s) PO UD 11/07/2016 05/01/2017 Inactive oxazepam 10 mg capsule RxNorm: 663383 1 Capsule(s) PO TID as needed anxiety 11/01/2016 12/30/2016 In active Nexium 40 mg capsule ,delayed release RxNorm: 481822 1 Capsule(s) PO BID 10/25/2016 10/19/2017 In active Claritin-D 12 Hour 5 mg-120 mg tablet,extended release RxNorm: 3260378 Tablet(s) TAKE ONE (1) TABLET BY MOUTH TWICE DAILY 10/25/2016 12/23/2016 Inactive mesalamine 800 mg ta blet,delayed release RxNorm: 760806 1 Tablet(s) PO BID 09/18/2016 09/17/2016 In active mesalamine 800 mg ta blet,delayed release RxNorm: 311525 1 Tablet(s) PO BID 09/18/2016 06/14/2017 In active Effexor XR 75 mg cap alma,extended release RxNorm: 424826 1 Capsule(s) PO daily 08/30/2016 08/24/2017 In active metformin 500 mg tablet RxNorm: 946971 1 Tablet(s) PO BID 08/17/2016 08/11/2017 Inactive oxazepam 10 mg capsule RxNorm: 068993 1 Capsule(s) PO TID as needed anxiety 08/17/2016 10/15/2016 In active Claritin-D 12 Hour 5 mg-120 mg tablet,extended release RxNorm: 8100641 TAKE ONE (1) TABLET BY MOUTH TWICE DAILY... 08/16/2016 10/24/2016 Inactive furosemide 40 mg tablet RxNorm: 648138 1 Tablet(s) daily TAKE 1 TABLET DAILY 08/14/2016 08/08/2017 In active Effexor XR 75 mg cap alma,extended release RxNorm: 051010 1 Capsule(s) PO daily 08/14/2016 08/29/2016 In active pilocarpine 5 mg tablet RxNorm: 0001282 4 Tablet(s) PO daily TAKE 4 TABLETS YARI Y 08/14/2016 08/08/2017 In active metoclopramide 5 mg tablet RxNorm: 037914 1/2 to 1 Tablet(s) PO TID for nause and GI dysmotility 07/02/2016 11/14/2016 Inactive Effexor XR 75 mg cap alma,extended release RxNorm: 548554 1 Capsule(s) PO daily 07/02/2016 08/13/2016 In active metformin 500 mg tablet RxNorm: 186349 1/2 TABLET(S) PO BID X2 WEEKS THEN INCRE ASE TO 1 TABLET PO BID THEREAFTER 06/26/2016 08/16/2016 Inactive 30 day supply Claritin-D 12 Hour 5 mg-120 mg tablet,extended release RxNorm: 7464556 1 Tablet(s) PO BID 06/18/2016 08/15/2016 Inactive montelukast 10 mg ta blet RxNorm: 050383 1 Tablet(s) PO daily 06/13/2016 06/02/2017 Inactive metformin 500 mg tablet RxNorm: 231472 1/2 Tablet(s) PO BID x2 weeks then incre ase to 1 Tablet PO BID thereafter 06/07/2016 06/06/2016 Inactive 30 day supply metformin 500 mg tablet RxNorm: 425098 1/2 Tablet(s) PO BID x2 weeks then incre ase to 1 Tablet PO BID thereafter 06/07/2016 06/25/2016 Inactive 30 day supply Diflucan 150 mg tablet RxNorm: 744305 1 Tablet(s) PO daily 03/27/2016 04/02/2016 Inactive nystatin 100,000 uni t/mL oral suspension RxNorm: 061491 5 Milliliter(s) PO QI D 03/27/2016 04/05/2016 In active nystatin 100,000 uni t/mL oral suspension RxNorm: 369301 5 Milliliter(s) PO QI D 03/27/2016 03/26/2016 In active Diflucan 150 mg tablet RxNorm: 235550 1 Tablet(s) PO daily 03/27/2016 03/26/2016 Inactive Effexor XR 75 mg cap alma,extended release RxNorm: 521154 1 Capsule(s) PO daily 03/26/2016 07/01/2016 In active this replaces the 150mg dose - we are we aning down her dose Trulicity 1.5 mg/0.5 mL subcutaneous pen injector RxNorm: 3987996 0.5 Milliliter(s) SQ QW 03/26/2016 02/27/2017 Inactive Trulicity 0.75 mg/0. 5 mL subcutaneous pen injector RxNorm: 8761834 1 injection SQ QW 03/13/2016 06/03/2016 Inactive Trulicity 0.75 mg/0. 5 mL subcutaneous pen injector RxNorm: 3382946 1/2 Milliliter(s) SQ QW 03/13/2016 03/12/2016 Inactive glyburide 2.5 mg tablet RxNorm: 684332 1/2 Tablet(s) PO BID 03/13/2016 03/25/2016 Inactive glyburide 2.5 mg tablet RxNorm: 003353 1/2 Tablet(s) PO BID 03/13/2016 03/12/2016 Inactive Claritin-D 12 Hour 5 mg-120 mg tablet,extended release RxNorm: 9824400 1 Tablet(s) PO BID 02/03/2016 10/24/2016 Inactive Synthroid 25 mcg tablet RxNorm: 889429 1 Tablet(s) PO daily 01/23/2016 11/18/2016 Inactive Synthroid 25 mcg tablet RxNorm: 793544 1 Tablet(s) PO daily 01/23/2016 01/22/2016 Inactive Claritin-D 12 Hour 5 mg-120 mg tablet,extended release RxNorm: 2573477 1 Tablet(s) PO BID 12/05/2015 05/31/2016 Inactive Effexor XR 150 mg ca psule,extended release RxNorm: 275329 TAKE 1 CAPSULE DAILY 12/05/2015 03/25/2016 In active Bydureon 2 mg/0.65 m L subcutaneous pen injector RxNorm: 6949169 2 Milligram(s) SQ QW 10/14/2015 03/12/2016 Inactive oxazepam 10 mg capsule RxNorm: 823996 1 Capsule(s) PO TID PRN as needed anxiet y 10/14/2015 04/10/2016 In active Nexium 40 mg capsule ,delayed release RxNorm: 878198 1 Capsule(s) BID TAKE 1 CAPSULE DAILY 10/14/2015 10/07/2016 Inactive this is a new RX - fill the twice daily dose instead of once daily dose Effexor XR 150 mg ca psule,extended release RxNorm: 221962 1 Capsule(s) PO daily TAKE 1 CAPSULE DAILY 10/03/2015 03/25/2016 Inactive pilocarpine 5 mg tablet RxNorm: 8000661 4 Tablet(s) PO daily TAKE 4 TABLETS YARI Y 08/09/2015 02/04/2016 In active pilocarpine 5 mg tablet RxNorm: 4737516 4 Tablet(s) PO daily TAKE 4 TABLETS YARI Y 07/26/2015 08/08/2015 In active Claritin-D 12 Hour 5 mg-120 mg tablet,extended release RxNorm: 5748565 1 Tablet(s) PO BID 05/02/2015 10/24/2016 Inactive furosemide 40 mg tablet RxNorm: 319530 1 Tablet(s) daily TAKE 1 TABLET DAILY 03/31/2015 03/24/2016 In active Nexium 40 mg capsule ,delayed release RxNorm: 614239 1 Capsule(s) BID TAKE 1 CAPSULE DAILY 03/31/2015 10/13/2015 Inactive this is a new RX - fill the twice daily dose instead of once daily dose Nexium 40 mg capsule ,delayed release RxNorm: 268493 1 Capsule(s) daily TA KE 1 CAPSULE DAILY 03/31/2015 03/30/2015 Inactive montelukast 10 mg ta blet RxNorm: 584486 1 Tablet(s) PO daily 03/31/2015 03/24/2016 Inactive Synthroid 25 mcg tablet RxNorm: 781873 1 Tablet(s) PO daily 01/17/2015 01/11/2016 Inactive Synthroid 25 mcg tablet RxNorm: 153678 1 Tablet(s) PO daily 01/03/2015 01/16/2015 Inactive Claritin-D 12 Hour 5 mg-120 mg tablet,extended release RxNorm: 0811774 1 Tablet(s) PO BID 12/29/2014 05/01/2015 Inactive Synthroid 25 mcg tablet RxNorm: 097732 1 Tablet(s) PO daily 12/20/2014 01/02/2015 Inactive Synthroid 25 mcg tablet RxNorm: 489355 1 Tablet(s) PO daily 12/07/2014 12/19/2014 Inactive Effexor XR 150 mg ca psule,extended release RxNorm: 055219 1 Capsule(s) PO daily TAKE 1 CAPSULE DAILY 11/30/2014 10/02/2015 Inactive Nexium 40 mg capsule ,delayed release RxNorm: 088700 Capsule(s) TAKE 1 CAP ALMA DAILY 11/30/2014 03/30/2015 In active fenofibric acid (cho line) 135 mg capsule,delayed release RxNorm: 522916 1 Capsule(s) PO daily 08/31/2014 08/25/2015 Inactive Bydureon 2 mg subcut aneous extended release suspension RxNorm: 7431201 1 injection SQ QW 07/21/2014 07/15/2015 Inactive fluticasone 50 mcg/a ctuation nasal spray,suspension RxNorm: 6718960 USE ONE SPRAY IN EACH NOSTRIL TWICE A DAY 07/06/2014 06/03/2017 Inactive Lipitor 10 mg tablet RxNorm: 633779 TAKE 1 TABLET AT BEDTIME 06/15/2014 10/13/2015 Inactive furosemide 40 mg tablet RxNorm: 978534 TAKE 1 TABLET DAILY 06/15/2014 03/30/2015 Inactive oxazepam 10 mg capsule RxNorm: 073374 1 Capsule(s) PO TID PRN as needed anxiet y 06/11/2014 12/07/2014 In active montelukast 10 mg ta blet RxNorm: 514514 1 Tablet(s) PO daily 05/25/2014 03/30/2015 Inactive oxazepam 10 mg capsule RxNorm: 888552 1 Capsule(s) PO TID PRN as needed anxiet y 05/06/2014 06/10/2014 In active montelukast 10 mg ta blet RxNorm: 484497 1 Tablet(s) PO daily 05/04/2014 05/24/2014 Inactive Nexium 40 mg capsule ,delayed release RxNorm: 520686 TAKE 1 CAPSULE DAILY 03/25/2014 11/29/2014 In active Nexium 40 mg capsule ,delayed release RxNorm: 603245 1 Capsule(s) PO daily TAKE 1 CAPSULE DAILY 03/02/2014 03/24/2014 Inactive oxazepam 10 mg capsule RxNorm: 861583 1 Capsule(s) PO TID PRN as needed 02/24/2014 04/24/2014 In active pilocarpine 5 mg tablet RxNorm: 0178524 TAKE 4 TABLETS DAILY 02/01/2014 07/25/2015 Inactive Claritin-D 12 Hour 5 mg-120 mg tablet,extended release RxNorm: 4091788 1 Tablet(s) PO BID 12/24/2013 10/24/2016 Inactive Effexor XR 150 mg ca psule,extended release RxNorm: 851619 1 Capsule(s) PO daily TAKE 1 CAPSULE DAILY 12/24/2013 11/29/2014 Inactive Klor-Con 10 mEq tabl et,extended release RxNorm: 934975 1 Tablet(s) PO daily 12/24/2013 10/13/2015 In active Bydureon 2 mg subcut aneous extended release suspension RxNorm: 5364554 1 injection SQ QW 12/07/2013 07/20/2014 Inactive Synthroid 25 mcg tablet RxNorm: 914883 1 Tablet(s) PO daily 12/02/2013 11/26/2014 Inactive Klor-Con 10 mEq tabl et,extended release RxNorm: 216211 1 Tablet(s) PO daily take 2 daily x 1 week then one daily thereafter 12/02/2013 12/23/2013 Inactive oxazepam 10 mg capsule RxNorm: 170608 1 Capsule(s) PO TID PRN 11/10/2013 01/08/2014 Inactive omeprazole 20 mg cap alma,delayed release RxNorm: 145597 1 Capsule(s) PO daily 11/10/2013 04/13/2014 In active Synthroid 50 mcg tablet RxNorm: 218380 Tablet(s) PO TAKE 1 TABLET DAILY 09/21/2013 12/01/2013 In active furosemide 40 mg tablet RxNorm: 025347 Tablet(s) PO TAKE 1 TABLET DAILY 09/21/2013 06/14/2014 In active Bydureon 2 mg subcut aneous extended release suspension RxNorm: 5130163 1 injection SQ QW 07/22/2013 12/06/2013 Inactive Bydureon 2 mg subcut aneous extended release suspension RxNorm: 8441435 1 injection SQ QW 07/14/2013 07/21/2013 Inactive Nexium 40 mg capsule ,delayed release RxNorm: 405371 Capsule(s) PO TAKE 1 CAPSULE DAILY 06/18/2013 11/09/2013 Inactive fluticasone 50 mcg/a ctuation nasal spray,suspension RxNorm: 763362 1 Sarah Ann NASAL BID 06/18/2013 07/05/2014 Inactive Lipitor 10 mg tablet RxNorm: 973143 Tablet(s) PO every other day 1 tablet qo d 06/18/2013 06/12/2014 In active losartan 25 mg tablet RxNorm: 598036 1 Tablet(s) PO daily 1 daily for blood p ressure 06/18/2013 10/15/2013 Inactive Toprol XL 25 mg tabl et,extended release RxNorm: 646280 1 Tablet(s) PO daily 06/18/2013 06/12/2014 In active Toprol XL 25 mg tabl et,extended release RxNorm: 322282 1 Tablet(s) PO daily 06/12/2013 06/17/2013 In active losartan 25 mg tablet RxNorm: 958463 1 Tablet(s) PO daily 1 daily for blood p ressure 06/12/2013 06/17/2013 Inactive Lipitor 10 mg tablet RxNorm: 631725 Tablet(s) PO every other day 1 tablet qo d 06/12/2013 06/17/2013 In active Effexor XR 150 mg ca psule,extended release RxNorm: 632155 1 Capsule(s) PO daily TAKE 1 CAPSULE DAILY 05/27/2013 12/23/2013 Inactive Bydureon 2 mg subcut aneous extended release suspension RxNorm: 3866466 1 injection SQ QW 05/20/2013 07/13/2013 Inactive Lipitor 10 mg tablet RxNorm: 097423 Tablet(s) PO every other day 1 tablet qo d 05/20/2013 06/11/2013 In active Pen Needle 32 x 5/32" RxNorm: Miscellaneous use with byetta pen 05/07/2013 09/03/2013 Inactive Effexor XR 150 mg ca psule,extended release RxNorm: 662130 1 Capsule(s) PO daily TAKE 1 CAPSULE DAILY 05/07/2013 05/26/2013 Inactive Pen Needle 32 x 5/32" RxNorm: Miscellaneous use with byetta pen 05/06/2013 05/06/2013 Inactive Pen Needle 32 x 5/32" RxNorm: Miscellaneous use with byetta pen 05/06/2013 05/05/2013 Inactive Byetta 5 mcg/0.02 mL per dose Sub-Q Pen Injector RxNorm: 763069 1 Unit Dose SQ BID 04/29/2013 05/19/2013 In active metformin ER 500 mg tablet,extended release 24 hr RxNorm: 881005 1 Tablet(s) PO BID 04/28/2013 06/19/2013 In active Byetta 5 mcg/0.02 mL per dose Sub-Q Pen Injector RxNorm: 638574 1 Unit Dose SQ BID 04/28/2013 04/27/2013 In active Byetta 5 mcg/0.02 mL per dose Sub-Q Pen Injector RxNorm: 601319 1 Unit Dose SQ BID 04/28/2013 04/28/2013 In active Influenza Virus Vacc ine 0.5 mL RxNorm: IM 04/27/2013 04/27/2013 Inactive glyburide 2.5 mg tablet RxNorm: 084466 1 Tablet(s) PO BID 04/27/2013 04/27/2013 Inactive glyburide 2.5 mg tablet RxNorm: 681639 1/2 Tablet(s) PO daily 04/13/2013 04/26/2013 Inactive glyburide 2.5 mg tablet RxNorm: 173403 1 Tablet(s) PO daily 04/09/2013 04/12/2013 Inactive metformin ER 500 mg tablet,extended release 24 hr RxNorm: 860611 2 Tablet(s) PO BID 04/09/2013 04/27/2013 In active Lipitor 10 mg tablet RxNorm: 417423 Tablet(s) PO TAKE 1 TABLET AT BEDTIME 03/17/2013 05/19/2013 In active losartan 25 mg tablet RxNorm: 582823 1 Tablet(s) PO daily 02/12/2013 06/11/2013 Inactive montelukast 10 mg ta blet RxNorm: 289639 1 Tablet(s) PO daily 02/09/2013 02/08/2013 Inactive montelukast 10 mg ta blet RxNorm: 414168 1 Tablet(s) PO daily 02/09/2013 02/03/2014 Inactive losartan 25 mg tablet RxNorm: 455643 1 Tablet(s) PO daily 02/09/2013 02/11/2013 Inactive losartan 25 mg tablet RxNorm: 168755 1 Tablet(s) PO daily 01/26/2013 02/08/2013 Inactive Effexor XR 150 mg ca psule,extended release RxNorm: 358793 Capsule(s) PO TAKE 1 CAPSULE DAILY 12/24/2012 05/06/2013 Inactive metformin ER 500 mg tablet,extended release 24 hr RxNorm: 371636 Tablet(s) PO TAKE 2 TABLETS TWICE A DAY 12/24/2012 04/08/2013 Inactive pilocarpine 5 mg tablet RxNorm: 9574104 Tablet(s) PO TAKE 4 TABLETS DAILY 12/24/2012 01/31/2014 In active levofloxacin 500 mg tablet RxNorm: 303005 1 Tablet(s) PO daily 12/15/2012 12/19/2012 Inactive Nexium 40 mg capsule ,delayed release RxNorm: 384986 Capsule(s) PO daily T MILO 1 CAPSULE DAILY 11/03/2012 06/17/2013 Inactive Claritin-D 12 Hour 5 mg-120 mg tablet,extended release RxNorm: 5718089 1 Tablet(s) PO BID 10/29/2012 10/23/2013 Inactive TAKE 1 TABLET BY MOUTH TWICE DAILY fluticasone 50 mcg/a ctuation nasal spray,suspension RxNorm: 0299160 1 Sarah Ann NASAL BID 10/08/2012 06/17/2013 Inactive Claritin-D 12 Hour 5 mg-120 mg tablet,extended release RxNorm: 4317174 1 Tablet(s) PO BID 09/09/2012 2012 Inactive TAKE 1 TABLET BY MOUTH TWICE DAILY montelukast 10 mg ta blet RxNorm: 058526 1 Tablet(s) PO daily 08/20/2012 02/08/2013 Inactive Synthroid 50 mcg tablet RxNorm: 023713 Tablet(s) PO TAKE 1 TABLET DAILY 08/18/2012 09/20/2013 In active Nexium 40 mg capsule ,delayed release RxNorm: 054859 Capsule(s) PO TAKE 1 CAPSULE DAILY 08/18/2012 11/02/2012 Inactive furosemide 40 mg tablet RxNorm: 919149 Tablet(s) PO TAKE 1 TABLET DAILY 08/18/2012 09/20/2013 In active Klor-Con 10 mEq tabl et,extended release RxNorm: 712656 Tablet(s) PO TAKE 1 T ABLET DAILY 08/18/2012 12/01/2013 Inactive Xanax 0.5 mg tablet RxNorm: 894414 1 Tablet(s) PO Q6 PRN 07/17/2012 10/13/2015 Inactive Zithromax 250 mg tablet RxNorm: 043539 Tablet(s) PO 07/14/2012 11/10/2013 Inactive disp one z ankit fluticasone 50 mcg/a ctuation Nasal Sarah Ann, Susp RxNorm: 6159064 1 Sarah Ann NASAL BID 06/27/2012 10/07/2012 In active Anusol-HC 25 mg Supp ository RxNorm: 7685277 1 Suppository RTL QD AY PRN 06/09/2012 01/04/2013 In active daily x 3 days then prnno longer than 10 days in row use Claritin-D 12 Hour 5 mg-120 mg tablet,extended release RxNorm: 9674898 1 Tablet(s) PO BID 05/22/2012 05/22/2012 Inactive TAKE 1 TABLET BY MOUTH TWICE DAILY Claritin-D 12 Hour 5 mg-120 mg tablet,extended release RxNorm: 0263809 Tablet(s) PO 05/12/2012 05/21/2012 In active TAKE 1 TABLET BY MOUTH TWICE DAILY fluticasone 50 mcg/a ctuation Nasal Sarah Ann, Susp RxNorm: 5758379 1 Sarah Ann NASAL BID 05/06/2012 06/26/2012 In active Rocephin 500 mg Solu tion for Injection RxNorm: 557990 Inj 02/1102/12/2012 Inactive metronidazole 500 mg Tab RxNorm: 472415 1 Tablet(s) PO TID 02/12/2012 02/18/2012 Inactive Kenalog 40 mg/mL Elizabeth p for Injection RxNorm: 3321170 Milliliter(s) Inj 02/12/2012 02/12/2012 In active fluticasone 50 mcg/a ctuation Nasal Sarah Ann, Susp RxNorm: 3149974 1 Sarah Ann NASAL BID 02/12/2012 05/05/2012 In active cefdinir 300 mg Cap RxNorm: 959072 1 Capsule(s) PO BID 02/12/2012 02/21/2012 Inactive Effexor XR 150 mg ca psule,extended release RxNorm: 952206 1 Capsule(s) PO daily 12/17/2011 12/10/2012 In active metformin ER 500 mg tablet,extended release 24 hr RxNorm: 849671 2 Tablet(s) PO BID 12/17/2011 05/14/2012 In active pilocarpine 5 mg tablet RxNorm: 1594623 4 Tablet(s) PO daily 12/17/2011 03/15/2012 Inactive Singulair 10 mg Tab RxNorm: 363371 1 Tablet(s) PO daily 11/27/2011 08/19/2012 Inactive Nexium 40 mg capsule ,delayed release RxNorm: 310011 1 Capsule(s) PO daily 11/26/2011 03/24/2012 In active Claritin-D 12 Hour 5 mg-120 mg tablet,extended release RxNorm: 7385204 1 Tablet(s) PO BID 11/14/2011 05/11/2012 Inactive Claritin-D 12 Hour 5 mg-120 mg Tab RxNorm: 4928321 1 Tablet(s) PO BID 10/31/2011 11/13/2011 In active Claritin-D 12 Hour 5 mg-120 mg Tab RxNorm: 1274602 1 Tablet(s) PO BID 10/29/2011 2011 In active Claritin-D 12 Hour 5 mg-120 mg Tab RxNorm: 3928833 1 Tablet(s) PO BID 10/29/2011 10/30/2011 In active Claritin-D 24 Hour 1 0 mg-240 mg Tab RxNorm: 1255019 1 Tablet(s) PO daily 10/23/2011 2011 In active levofloxacin 500 mg Tab RxNorm: 800719 1 Tablet(s) PO daily 08/28/2011 09/03/2011 Inactive Nasonex 50 mcg/actua tion Sarah Ann RxNorm: 291184 1 Sarah Ann NASAL BID 08/28/2011 11/25/2011 Inactive promethazine 25 mg/m L Injection RxNorm: 507898 1 Milliliter(s) Inj 08/23/2011 07/14/2013 Inactive glyburide 2.5 mg tablet RxNorm: 472877 1 Tablet(s) PO daily 08/23/2011 04/08/2013 Inactive Rocephin 500 mg Solu tion for Injection RxNorm: 136949 1 Milliliter(s) Inj 08/23/2011 08/28/2011 In active Klor-Con 10 10 mEq t ablet,extended release RxNorm: 515523 1 Tablet(s) PO daily 08/06/2011 07/30/2012 In active Nexium 40 mg Capsule , delayed release RxNorm: 910372 1 Capsule(s) PO daily 08/06/2011 11/25/2011 In active furosemide 40 mg tablet RxNorm: 310735 1 Tablet(s) PO daily 08/06/2011 07/30/2012 Inactive Cymbalta 30 mg Cap RxNorm: 352349 1 Capsule(s) PO daily 07/26/2011 08/28/2011 Inactive Synthroid 50 mcg tablet RxNorm: 595663 Tablet(s) PO 06/21/2011 08/17/2012 Inactive TAKE 1 TABLET DAILY Neurontin 100 mg Cap RxNorm: 097364 2 Capsule(s) PO TID 06/19/2011 08/28/2011 Inactive ciprofloxacin 500 mg Tab RxNorm: 339595 1 Tablet(s) PO BID 06/19/2011 08/28/2011 Inactive Neurontin 100 mg Cap RxNorm: 696973 1 Capsule(s) PO QID 06/05/2011 06/18/2011 Inactive oxazepam 10 mg Cap RxNorm: 473367 1 Capsule(s) PO Q6 PRN 06/05/2011 10/02/2011 Inactive Influenza Virus Vacc ine 0.5 mL RxNorm: IM 06/05/2011 06/05/2011 Inactive EnteraGam 5 gram ora l powder packet RxNorm: 1 PO daily No S tart Date Active hydrocodone-acetamin ophen 5 mg-500 mg Tab RxNorm: 090986 1 Tablet(s) PO Q6 PRN No Start Date Active Centrum Ultra Women' s 18 mg-400 mcg Tab RxNorm: 1 Tablet(s) PO daily No Start Date Active Fish Oil 1,000 mg Cap RxNorm: 2 Capsule(s) PO BID No Start Date Active Zenpep 40,000-136,00 0-218,000 unit capsule,delayed release RxNorm: 2880390 1 Capsule(s) PO QID No Start Date Active mesalamine 4 gram/60 mL enema RxNorm: 988196 1 Milliliter(s) RTL d aily No Start Date Active Linzess 290 mcg capsule RxNorm: 5173773 1 Capsule(s) PO daily No Start Date Active aspirin 81 mg Cap, D elayed Release RxNorm: 800388 1 Capsule(s) PO daily No Start Date Active Vitamin B-12 1,000 m cg Tab RxNorm: 929838 2 Tablet(s) PO daily No Start Date Active Vitamin C With Darlyn Hips 1,000 mg Tab RxNorm: 022707 1 Tablet(s) PO daily No Start Date Active Lipitor 10 mg Tab RxNorm: 566194 1 Tablet(s) PO HS No Start Date 04/10/2011 Inactive Lipitor 20 mg Tab RxNorm: 250137 1 Tablet(s) PO HS No Start Date 08/28/2011 Inactive Zithromax 250 mg tablet RxNorm: 467078 Tablet(s) PO No Start Date 07/13/2012 Inactive disp one z ankit Effexor XR 150 mg 24 hr Cap RxNorm: 106612 1 Capsule(s) PO daily No Start Date 12/16/2011 Inactive Bydureon 2 mg/0.65 m L subcutaneous pen injector RxNorm: 6839674 Milliliter(s) SQ QW No Start Date 10/13/2015 Inactive furosemide 40 mg Tab RxNorm: 964316 1 Tablet(s) PO daily No Start Date 08/05/2011 Inactive Synthroid 25 mcg tablet RxNorm: 866676 1 Tablet(s) PO daily No Start Date 12/01/2013 Inactive Januvia 50 mg tablet RxNorm: 084383 1 Tablet(s) PO daily samples No Start Date 04/27/2013 Inactive Lipitor 10 mg tablet RxNorm: 670359 1 Tablet(s) PO daily No Start Date 03/16/2013 Inactive Crestor 10 mg tablet RxNorm: 453155 1 Tablet(s) PO QHS No Start Date 03/25/2016 Inactive Asacol HD 800 mg Tab RxNorm: 598246 2 Tablet(s) PO daily No Start Date 10/13/2015 Inactive pilocarpine 5 mg Tab RxNorm: 3056377 4 Tablet(s) PO daily No Start Date 12/16/2011 Inactive glyburide 2.5 mg Tab RxNorm: 377136 1 Tablet(s) PO BID No Start Date 08/22/2011 Inactive Claritin-D 24 Hour 1 0 mg-240 mg Tab RxNorm: 2156380 1 Tablet(s) PO daily No Start Date 10/22/2011 Inactive Vitamin D 1,000 unit Tab RxNorm: 743525 1 Tablet(s) PO daily No Start Date 10/13/2015 Inactive Tricor 145 mg Tab RxNorm: 664729 1 Tablet(s) PO daily No Start Date 10/14/2015 Inactive Zithromax Z-Ankit 250 mg tablet RxNorm: 513496 1 Tablet(s) PO UD No Start Date 11/06/2016 Inactive Synthroid 25 mcg tablet RxNorm: 256557 1 Tablet(s) PO daily No Start Date 05/01/2017 Inactive Claritin-D 12 Hour 5 mg-120 mg tablet,extended release RxNorm: 8463242 1 Tablet(s) PO BID No Start Date 12/23/2013 Inactive Singulair 10 mg Tab RxNorm: 190476 1 Tablet(s) PO daily No Start Date 11/26/2011 Inactive Calcium 600 + D(3) 6 00 mg (1,500)-200 unit Tab RxNorm: 331092 1 Tablet(s) PO daily No Start Date 10/13/2015 Inactive Lialda 1.2 gram tabl et,delayed release RxNorm: 273000 2 Tablet(s) PO daily No Start Date 09/17/2016 Inactive Effexor XR 150 mg 24 hr Cap RxNorm: 832169 1 Capsule(s) PO daily No Start Date 08/28/2011 Inactive aspirin 325 mg Tab RxNorm: 504168 1 Tablet(s) PO daily No Start Date 08/28/2011 Inactive Toprol XL 25 mg tabl et,extended release RxNorm: 106591 1 Tablet(s) PO daily No Start Date 06/11/2013 Inactive lisinopril 10 mg tablet RxNorm: 436288 1 Tablet(s) PO daily No Start Date 01/25/2013 Inactive Cymbalta 60 mg Cap RxNorm: 761058 1 Capsule(s) PO daily No Start Date 08/28/2011 Inactive Nexium 40 mg Cap RxNorm: 923353 1 Capsule(s) PO daily No Start Date 08/05/2011 Inactive dicyclomine 10 mg Cap RxNorm: 313738 1 Capsule(s) PO daily No Start Date 07/13/2013 Inactive Synthroid 50 mcg Tab RxNorm: 365673 1 Tablet(s) PO daily No Start Date 06/20/2011 Inactive metformin ER 500 mg 24 hr Tab RxNorm: 616719 2 Tablet(s) PO BID No Start Date 12/16/2011 Inactive Anusol-HC 25 mg Supp ository RxNorm: 1087522 1 Suppository RTL No Start Date 06/08/2012 Inactive daily x 3 days then prnno longer than 10 days in row use Medication Administered Medication Codes Instruc tions Start Date Status Kenalog 40 mg/mL suspension for injection RxNorm: 5678524 1Milliliter 05/26/2018 N o longer Active Influenza Virus Vaccine 0.5 mL RxNorm: 04/27/2013 No longer Active Rocephin 500 mg Solution for Injection RxNorm: 615571 02/12/2012 No longer A ctive Kenalog 40 mg/mL Susp for Injection RxNorm: 7645354 Milliliter 02/12/2012 No longer Active Influenza Virus [...] Code Item Item Code Result Date %Hba1C Dwz712 % HbA1c 22631-8 6.6 % 04/01/2018 %Hba1C Xlh224 Gluc Ave 143 mg/dL 04/01/2018 Lipid Ord30 CHOL 178 mg/dL 04/01/2018 Lipid Ord30 HDL 50.0 mg/dl 04/01/2018 Lipid Ord30 TRIG 221 mg/dL 04/01/2018 Lipid Ord30 LDL 84 mg/dL 04/01/2018 Lipid Ord30 C/HDL 3.6 Ratio 04/01/2018 %Hba1C Wki324 % HbA1c 50347-3 6.7 % 11/25/2017 %Hba1C Yss633 Gluc Ave 146 mg/dL 11/25/2017 Comp Metabolic Mll814 NA 144 mEq/L 04/30/2017 Comp Metabolic Lam424 K 4.3 mEq/L 04/30/2017 Comp Metabolic Bde243 CL 105 mEq/L 04/30/2017 Comp Metabolic Qxd473 CO2 29.0 mEq/L 04/30/2017 Comp Metabolic Bkq949 AN ION GAP 14 04/30/2017 Comp Metabolic Neq677 GL UCOSE 109 mg/dL 04/30/2017 Comp Metabolic Irt251 Cr eat 1.0 mg/dL 04/30/2017 Comp Metabolic Fqc927 eG FR 58 ml/min/1.73m2 04/30 Comp Metabolic Pgs110 BUN 17 mg/dL 04/30/2017 Comp Metabolic Oon016 B/ C Ratio 17.3 Ratio 04/30/2017 Comp Metabolic Fqz460 CA LCIUM 10.1 mg/dL 04/30/2017 Comp Metabolic Izu355 AL K PHOS 47 U/L 04/30/2017 Comp Metabolic Qvd655 T(SGOT) 16 U/L 04/30/2017 Comp Metabolic Cra381 AL T(SGPT) 16 U/L 04/30/2017 Comp Metabolic Yiv105 BI LI T 0.4 mg/dL 04/30/2017 Comp Metabolic Qvu851 AL BUMIN 4.5 g/dL 04/30/2017 Comp Metabolic Sso853 TP RO 6.7 g/dL 04/30/2017 Comp Metabolic Xfl555 GL OB 2.2 g/dL 04/30/2017 Comp Metabolic Fsz233 A/ G Ratio 2.0 Ratio 04/30/2017 Comp Metabolic Xgp113 Os mo 289 mOsmo 04/30/2017 Cbc With [...] 86.3 fl 04/30/2017 Cbc With Differential Ord2 Sandoval% 6.5 % 04/30/2017 Cbc With Differential Ord2 [...] 1.12 K/ul 04/30/2017 Cbc With Differential Ord2 [place] ABS# 0.2 K/ul 04/30/2017 Cbc With Differential Ord2 Eos ABS# 0.1 K/ul 04/30/2017 Cbc With Differential Ord2 Baso ABS# 0.0 K/ul 04/30/2017 %Hba1C Fyu034 % HbA1c 27869-4 6.7 % 04/30/2017 %Hba1C Lez838 Gluc Ave 146 mg/dL 04/30/2017 Tsh Ord6 hTSH II 1.36 uIU/mL 04/30/2017 Lipid Ord30 CHOL 160 mg/dL 04/30/2017 Lipid Ord30 HDL 51.0 mg/dl 04/30/2017 Lipid Ord30 TRIG 195 mg/dL 04/30/2017 Lipid Ord30 LDL 70 mg/dL 04/30/2017 Lipid Ord30 C/HDL 3.1 Ratio 04/30/2017 Free T4 Hta401 FREE T4 0.75 ng/dL 04/30/2017 Ferritin Ord22 FERRITIN 89.9 ng/mL 11/09/2016 Parathyroid Hormone Ybz668 PTH 36.20 pg/ml 11/09/2016 Tibc Ord40 Iron 75 ug/dl 11/08/2016 Tibc Ord40 UIBC 325 ug/dL 11/08/2016 Tibc Ord40 TIBC 400 ug/dL 11/08/2016 Tibc Ord40 Fe-%Sat 18.8 % 11/08/2016 Comp Metabolic Gwv606 NA 139 mEq/L 09/25/2016 Comp Metabolic Fbm598 K 4.3 mEq/L 09/25/2016 Comp Metabolic Hnx611 CL 101 mEq/L 09/25/2016 Comp Metabolic Zqb315 CO2 31.0 mEq/L 09/25/2016 Comp Metabolic Byk574 AN ION GAP 11 09/25/2016 Comp Metabolic Wud032 GL UCOSE 116 mg/dL 09/25/2016 Comp Metabolic Zwa157 Cr eat 1.1 mg/dL 09/25/2016 Comp Metabolic Yif663 eG FR 53 ml/min/1.73m2 09/25 Comp Metabolic Iuw495 BUN 22 mg/dL 09/25/2016 Comp Metabolic Fjw461 B/ C Ratio 20.8 Ratio 09/25/2016 Comp Metabolic Mkf153 CA LCIUM 10.3 mg/dL 09/25/2016 Comp Metabolic Qku405 AL K PHOS 52 U/L 09/25/2016 Comp Metabolic Ugr587 T(SGOT) 16 U/L 09/25/2016 Comp Metabolic Fwz542 AL T(SGPT) 17 U/L 09/25/2016 Comp Metabolic Euj642 BI LI T 0.3 mg/dL 09/25/2016 Comp Metabolic Qpl391 AL BUMIN 4.7 g/dL 09/25/2016 Comp Metabolic Qkk965 TP RO 6.9 g/dL 09/25/2016 Comp Metabolic Yer959 GL OB 2.2 g/dL 09/25/2016 Comp Metabolic Ywk180 A/ G Ratio 2.1 Ratio 09/25/2016 Comp Metabolic Srt835 Os mo 282 mOsmo 09/25/2016 Lipid Ord30 CHOL 182 mg/dL 09/25/2016 Lipid Ord30 HDL 55.0 mg/dl 09/25/2016 Lipid Ord30 TRIG 168 mg/dL 09/25/2016 Lipid Ord30 LDL 93 mg/dL 09/25/2016 Lipid Ord30 C/HDL 3.3 Ratio 09/25/2016 %Hba1C Rwn543 % HbA1c 25327-9 7.0 % 09/25/2016 %Hba1C Qdc108 Gluc Ave 154 mg/dL 09/25/2016 Free T4 Jmp206 FREE T4 0.80 ng/dL 09/25/2016 Cbc With [...] 28.3 pg 09/25/2016 Cbc With Differential Ord2 Sand[place]% 8.2 % 09/25/2016 Cbc With Differential Ord2 [...] 1.29 K/ul 09/25/2016 Cbc With Differential Ord2 [place] ABS# 0.3 K/ul 09/25/2016 Cbc With Differential Ord2 Eos ABS# 0.0 K/ul 09/25/2016 Cbc With Differential Ord2 Baso ABS# 0.0 K/ul 09/25/2016 Tsh Ord6 hTSH II 1.01 uIU/mL 09/25/2016 Tsh Ord6 hTSH II 1.35 uIU/mL 06/04/2016 Comp Metabolic Fuo893 NA 135 mEq/L 06/04/2016 Comp Metabolic Ygp556 K 3.8 mEq/L 06/04/2016 Comp Metabolic Vqt786 CL 99 mEq/L 06/04/2016 Comp Metabolic Fog694 CO2 30.0 mEq/L 06/04/2016 Comp Metabolic Vae824 AN ION GAP 10 06/04/2016 Comp Metabolic Qqf326 GL UCOSE 171 mg/dL 06/04/2016 Comp Metabolic Uiz138 Cr eat 1.0 mg/dL 06/04/2016 Comp Metabolic Pfj077 eG FR 59 ml/min/1.73m2 06/04 Comp Metabolic Trd841 BUN 22 mg/dL 06/04/2016 Comp Metabolic Mbp392 B/ C Ratio 22.4 Ratio 06/04/2016 Comp Metabolic Fbe888 CA LCIUM 10.4 mg/dL 06/04/2016 Comp Metabolic Uwx976 AL K PHOS 68 U/L 06/04/2016 Comp Metabolic Zbx627 T(SGOT) 22 U/L 06/04/2016 Comp Metabolic Vmv421 AL T(SGPT) 25 U/L 06/04/2016 Comp Metabolic Dtt870 BI LI T 0.4 mg/dL 06/04/2016 Comp Metabolic Jpq337 AL BUMIN 4.5 g/dL 06/04/2016 Comp Metabolic Xwe305 TP RO 7.0 g/dL 06/04/2016 Comp Metabolic Qes702 GL OB 2.5 g/dL 06/04/2016 Comp Metabolic Htd422 A/ G Ratio 1.8 Ratio 06/04/2016 Comp Metabolic Ygl529 Os mo 277 mOsmo 06/04/2016 Cbc With [...] 29.1 pg 06/04/2016 Cbc With Differential Ord2 [place]% 7.9 % 06/04/2016 Cbc With Differential Ord2 [...] 1.58 K/ul 06/04/2016 Cbc With Differential Ord2 [place] ABS# 0.5 K/ul 06/04/2016 Cbc With Differential Ord2 Eos ABS# 0.1 K/ul 06/04/2016 Cbc With Differential Ord2 Baso ABS# 0.1 K/ul 06/04/2016 %Hba1C Ajl817 % HbA1c 05807-0 8.7 % 06/04/2016 %Hba1C Elb540 Gluc Ave 203 mg/dL 06/04/2016 Free T4 Hkb565 FREE T4 0.84 ng/dL 06/04/2016 Lipid Ord30 CHOL 111 mg/dL 06/04/2016 Lipid Ord30 HDL 51.0 mg/dl 06/04/2016 Lipid Ord30 TRIG 185 mg/dL 06/04/2016 Lipid Ord30 LDL 23 mg/dL 06/04/2016 Lipid Ord30 C/HDL 2.2 Ratio 06/04/2016 Microalbumin Rsv784 Micr oAlb <0.7 mg/dL 06/04/2016 Comp Metabolic Bml885 NA 142 mEq/L 03/12/2016 Comp Metabolic Cqr865 K 4.1 mEq/L 03/12/2016 Comp Metabolic Mfn503 CL 103 mEq/L 03/12/2016 Comp Metabolic Ejz711 CO2 30.0 mEq/L 03/12/2016 Comp Metabolic Icy739 AN ION GAP 13 03/12/2016 Comp Metabolic Iyp555 GL UCOSE 138 mg/dL 03/12/2016 Comp Metabolic Uon578 Cr eat 0.8 mg/dL 03/12/2016 Comp Metabolic Ind129 eG FR 75 ml/min/1.73m2 03/12 Comp Metabolic Xqp422 BUN 18 mg/dL 03/12/2016 Comp Metabolic Lau771 B/ C Ratio 22.8 Ratio 03/12/2016 Comp Metabolic Vdd005 CA LCIUM 9.8 mg/dL 03/12/2016 Comp Metabolic Ukv165 AL K PHOS 83 U/L 03/12/2016 Comp Metabolic Suz643 T(SGOT) 15 U/L 03/12/2016 Comp Metabolic Ova766 AL T(SGPT) 20 U/L 03/12/2016 Comp Metabolic Kms911 BI LI T 0.4 mg/dL 03/12/2016 Comp Metabolic Gtq666 AL BUMIN 4.2 g/dL 03/12/2016 Comp Metabolic Ywl426 TP RO 6.4 g/dL 03/12/2016 Comp Metabolic Iku323 GL OB 2.2 g/dL 03/12/2016 Comp Metabolic Qbh917 A/ G Ratio 1.9 Ratio 03/12/2016 Comp Metabolic Aqb784 Os mo 287 mOsmo 03/12/2016 %Hba1C Vxl610 % HbA1c 85552-8 7.2 % 03/12/2016 %Hba1C Ufs038 Gluc Ave 160 mg/dL 03/12/2016 Comp Metabolic Ajq426 NA 138 mEq/L 10/18/2015 Comp Metabolic Axd465 K 4.1 mEq/L 10/18/2015 Comp Metabolic Mnz037 CL 97 mEq/L 10/18/2015 Comp Metabolic Lte650 CO2 32.0 mEq/L 10/18/2015 Comp Metabolic Sps149 AN ION GAP 13 10/18/2015 Comp Metabolic Bjw917 GL UCOSE 145 mg/dL 10/18/2015 Comp Metabolic Qdl612 Cr eat 1.1 mg/dL 10/18/2015 Comp Metabolic Oww600 eG FR 50 ml/min/1.73m2 10/17 Comp Metabolic Rnz844 BUN 23 mg/dL 10/18/2015 Comp Metabolic Wkn083 B/ C Ratio 20.4 Ratio 10/18/2015 Comp Metabolic Elg501 CA LCIUM 10.3 mg/dL 10/18/2015 Comp Metabolic Cex510 AL K PHOS 59 U/L 10/18/2015 Comp Metabolic Qti891 T(SGOT) 17 U/L 10/18/2015 Comp Metabolic Ysk085 AL T(SGPT) 21 U/L 10/18/2015 Comp Metabolic Iho641 BI LI T 0.4 mg/dL 10/18/2015 Comp Metabolic Ukn485 AL BUMIN 4.6 g/dL 10/18/2015 Comp Metabolic Cbx006 TP RO 7.1 g/dL 10/18/2015 Comp Metabolic Azc276 GL OB 2.5 g/dL 10/18/2015 Comp Metabolic Ooq870 A/ G Ratio 1.9 Ratio 10/18/2015 Comp Metabolic Zuf052 Os mo 282 mOsmo 10/18/2015 Tsh Ord6 hTSH II 1.81 uIU/mL 10/18/2015 %Hba1C Bdd998 % HbA1c 44426-0 7.3 % 10/18/2015 %Hba1C Fjy157 Gluc Ave 163 mg/dL 10/18/2015 Iron Ord72 Iron 90 ug/dl 10/18/2015 Free T4 Fmy819 FREE T4 0.75 ng/dL 10/18/2015 Cbc With [...] 26.2 % 10/18/2015 Cbc With Differential Ord2 Sandoval% 6.8 % 10/18/2015 Cbc With Differential Ord2 [...] 1.93 K/ul 10/18/2015 Cbc With Differential Ord2 [place] ABS# 0.5 K/ul 10/18/2015 Cbc With Differential [...] Lipid Ord30 C/HDL 2.3 Ratio 10/18/2015 TSH 8014155 TSH 1.042 uIU/ML 12/24/2012 A1C HPLC 6285459 A1C HPLC 89926-5 7.6 % 12/24/2012 ESR 2439452 ESR 2 MM/HR 12/23/2012 CHEM 14 0491308 AST 20 U/L 12/23/2012 CHEM 14 1917170 ALT 24 IU/L 12/23/2012 CHEM 14 0992973 BUN 16 MG/DL 12/23/2012 CHEM 14 8555384 ALBUMIN 4.7 GM/DL 12/23/2012 CHEM 14 8374703 CHLORIDE 102 MMOL/L 12/23/2012 CHEM 14 9434145 BILI TOT 0.3 MG/DL 12/23/2012 CHEM 14 5801125 ALK PHOS 109 U/L 12/23/2012 CHEM 14 7029429 SODIUM 142 MMOL/L 12/23/2012 CHEM 14 4158582 CREATINI NE 0.93 MG/DL 12/23/2012 CHEM 14 4095709 CALCIUM 10.0 MG/DL 12/23/2012 CHEM 14 8230230 POTASSIUM 3.7 MMOL/L 12/23/2012 CHEM 14 3466089 PROT TOT 7.2 GM/DL 12/23/2012 CHEM 14 5870930 GLUCOSE 116 MG/DL 12/23/2012 CHEM 14 8201297 BICARB 32 MMOL/L 12/23/2012 CHEM 14 8052272 ANION GAP 8 MEQ/L 12/23/2012 GFR CALC GFR AA >60 ML/MIN 12/23/2012 GFR CALC GFR NON -AA 59.0L ML/MIN 3 CBC 2326202 WBC 5.5 10e9/L 12/23/2012 CBC 8713721 RBC 4.90 10e12/L 12/23/2012 CBC 9640911 HGB 14.1 g/dL 12/23/2012 CBC 0277337 HCT DET 42.4 % 12/23/2012 CBC 5187820 MCV 86.5 fL 12/23/2012 CBC 2254920 MCH 28.8 pg 12/23/2012 CBC 1737711 MCHC 33.3 g/dL 12/23/2012 CBC 5303304 PLT 320 10e9/L 12/23/2012 CBC 6637766 MPV 9.9 fL 12/23/2012 CBC 4090410 BRANDIE % 63.7 % 12/23/2012 CBC 9559553 LY % 24.6 % 12/23/2012 CBC 6555135 MON % 6.3 % 12/23/2012 CBC 8587184 EOS % 4.7 % 12/23/2012 CBC 2192040 BASO % 0.7 % 12/23/2012 CBC 7484447 RDW 15.0 % 12/23/2012 CBC 9010006 ABS BRANDIE 3.50 10e9/L 12/23/2012 CBC 3829207 ABS LYMPH 1.35 10e9/L 12/23/2012 CBC 3323581 ABS MONO 0.35 10e9/L 12/23/2012 CBC 8604938 ABS EOS 0.26 10e9/L 12/23/2012 CBC 9706671 ABS BASO 0.04 10e9/L 12/23/2012 CBC 3917447 RDW-SD 47.1 fL 12/23/2012 CRP 4224117 CRP 0.1 MG/DL 12/23/2012 URINALYSIS NONAUTO W/O SCOPE 03840 Specific [place] 1.005 DateTime(Free Text in Aprima) URINALYSIS NONAUTO W/O SCOPE 74436 PH 7.5 DateTime(Free Mina t in Aprima) URINALYSIS NONAUTO W/O SCOPE 28930 GLUCOSE NEG DateTime(Free Mina t in Aprima) URINALYSIS NONAUTO W/O SCOPE 87572 Protein NEG DateTime(Free Mina t in Aprima) URINALYSIS NONAUTO W/O SCOPE 89897 Blood NEG DateTime(Free Mina t in Aprima) URINALYSIS NONAUTO W/O SCOPE 83496 Bilirubin NEG DateTime(Free Mina t in Aprima) URINALYSIS NONAUTO W/O SCOPE 45941 Ketones NEG DateTime(Free Mina t in Aprima) URINALYSIS NONAUTO W/O SCOPE 06055 Urobilinogen NEG DateTime(Free Text in Apr) URINALYSIS NONAUTO W/O SCOPE 78961 Nitrite NEG DateTime(Free Mina t in Aprima) URINALYSIS NONAUTO W/O SCOPE 24676 Leukocytes NEG DateTime(Free Text in Apr) Review of Systems System Result Effective Dates [...] neck pain Neurologic No syncope Psychiatric anxiety 1002/2016 Psychiatric depression 1 Endocrine diabetes mellitus type [...] 02/12/2012 Neurologic paresthesia 0 02/12/2012 Neurologic weakness 06/2 01/2012 Constitutional No night sweats 02/05/2012 Constitutional [...] clear 11/25/2017 None Full Exam - General 1995 Ears/Nose/Throat oral cavity/pharynx/larynx Overall: oropharyngeal mucosa clear 11/25/2017 None Full Exam - General 1995 Ears/Nose/Throat oral cavity/pharynx/larynx Overall: no masses 11/25/2017 [...] clear 05/02/2017 None Full Exam - General 1995 Ears/Nose/Throat oral cavity/pharynx/larynx Overall: oral mucosa clear 05/02/2017 None Full Exam - General 1994 Ears/Nose/Throat oral cavity/pharynx/larynx Overall: oropharyngeal mucosa clear 05/02/2017 None Full Exam - General 1995 Ears/Nose/Throat oral cavity/pharynx/larynx Overall: no masses 05/02/2017 [...] posture 05/20/2013 None Full Exam - General 1995 [...] Procedure Codes Date THER/PROPH/DIAG INJ SC/IM CPT-4: 19855 05/26/2018 TRIAMCINOLONE ACET I [place] NOS CPT-4: J3301 05/26/2018 FLU VAC NO PRSV 4 VA L 3 YRS+ CPT-4: 45425 05/02/2017 ADMIN INFLUENZA VIRU S VAC CPT-4: G0008 05/02/2017 ADMIN PNEUMOCOCCAL V ACCINE SNOMED CT: 23158967 CPT-4: G0009 05/02/2017 PNEUMOCOCCAL VACC [address]: 16694842 CPT-4: 40350 05/02/2017 FLU VAC NO PRSV 4 VA L 3 YRS+ CPT-4: 12306 05/06/2014 ADMIN PNEUMOCOCCAL V ACCINE SNOMED CT: 94612305 CPT-4: G0009 05/06/2014 PRESCRIP TRANSMIT A ERX SY CPT-4: G8553 06/12/2013 PRESCRIP TRANSMIT A ERX SY CPT-4: G8553 05/20/2013 ADMIN INFLUENZA VIRU S VAC CPT-4: G0008 04/27/2013 FLULAVAL VACC, 3 YRS & >, IM CPT-4: Q2036 04/27/2013 PRESCRIP TRANSMIT A ERX SY CPT-4: G8553 04/09/2013 PRESCRIP TRANSMIT A ERX SY CPT-4: G8553 01/26/2013 ROUTINE VENIPUNCTURE CPT-4: 78412 12/23/2012 PRESCRIP TRANSMIT A ERX SY CPT-4: G8553 06/09/2012 ROCEPHIN, PER 250 MG CPT-4: J0696 02/12/2012 TRIAMCINOLONE ACET I [place] NOS CPT-4: J3301 02/12/2012 PRESCRIP TRANSMIT A ERX SY CPT-4: G8553 02/12/2012 ROCEPHIN, PER 250 MG CPT-4: J0696 02/05/2012 URINALYSIS NONAUTO W /O SCOPE CPT-4: 55141 11/14/2011 REMOVE IMPACTED EAR WAX UNI CPT-4: 07070 08/28/2011 PRESCRIP TRANSMIT A ERX SY CPT-4: G8553 08/28/2011 ROCEPHIN, PER 250 MG CPT-4: J0696 08/23/2011 TRIAMCINOLONE ACET I [place] NOS CPT-4: J3301 08/23/2011 THER/PROPH/DIAG INJ SC/IM CPT-4: 66094 08/23/2011 PRESCRIP TRANSMIT A ERX SY CPT-4: G8553 08/23/2011 OCCULT BLOOD FECES CPT- 4: 63903 06/19/2011 URINALYSIS NONAUTO W /O SCOPE CPT-4: 40165 06/19/2011 PRESCRIP TRANSMIT A ERX SY CPT-4: G8553 06/19/2011 ADMIN INFLUENZA VIRU S VAC CPT-4: G0008 06/05/2011 FLULAVAL VACC, 3 YRS & >, IM CPT-4: Q2036 06/05/2011 Vital Signs Date Vital 06/12/2018 Blood Pressure 1: 142/68 Code: 8480-6 BMI: 30.0 Code: 38953-4 Heart Rate 1: 91 bpm Height: 5'3" SpO2: 96% Weight: 172 lbs 05/26/2018 Blood Pressure 1: 142/72 Code: 8480-6 BMI: 30.0 Code: 05801-0 Heart Rate 1: 92 bpm Height: 5'3" SpO2: 96% Weight: 172 lbs 04/01/2018 Blood Pressure 1: 120/58 Code: 8480-6 BMI: 29.1 Code: 35433-9 Heart Rate 1: 83 bpm Height: 5'3" Respiratory Rate: 18 bpm SpO2: 95% Weight: 167 lbs 11/25/2017 Blood Pressure 1: 128/58 Code: 8480-6 BMI: 29.8 Code: 90172-3 Heart Rate 1: 83 bpm Height: 5'3" SpO2: 99% Weight: 171 lbs 09/18/2017 Blood Pressure 1: 140/72 Code: 8480-6 BMI: 30.3 Code: 30863-4 Heart Rate 1: 99 bpm Height: 5'3" SpO2: 97% Weight: 174 lbs 05/02/2017 Blood Pressure 1: 122/64 Code: 8480-6 BMI: 29.5 Code: 76088-6 Heart Rate 1: 81 bpm Height: 5'3" SpO2: 97% Weight: 169 lbs 03/29/2017 Blood Pressure 1: 134/68 Code: 8480-6 BMI: 30.0 Code: 50898-0 Heart Rate 1: 89 bpm Height: 5'3" SpO2: 98% Weight: 172 lbs 11/15/2016 Blood Pressure 1: 148/72 Code: 8480-6 BMI: 29.5 Code: 25835-7 Heart Rate 1: 102 bpm Height: 5'3" SpO2: 98% Weight: 169 lbs 11/06/2016 Blood Pressure 1: 140/78 Code: 8480-6 BMI: 29.8 Code: 02159-4 Heart Rate 1: 100 bpm Height: 5'3" SpO2: 97% Weight: 171 lbs 08/01/2016 Blood Pressure 1: 128/56 Code: 8480-6 BMI: 30.3 Code: 26233-9 Heart Rate 1: 88 bpm Height: 5'3" SpO2: 97% Weight: 174 lbs 07/02/2016 Blood Pressure 1: 126/62 Code: 8480-6 BMI: 31.0 Code: 99587-5 Heart Rate 1: 101 bpm Height: 5'3" SpO2: 97% Weight: 178 lbs 06/04/2016 Blood Pressure 1: 136/72 Code: 8480-6 BMI: 31.4 Code: 31843-8 Heart Rate 1: 103 bpm Height: 5'3" SpO2: 98% Weight: 180 lbs 03/26/2016 Blood Pressure 1: 134/74 Code: 8480-6 BMI: 30.7 Code: 78515-2 Heart Rate 1: 93 bpm Height: 5'3" SpO2: 98% Weight: 176 lbs 11/23/2015 Blood Pressure 1: 128/77 Code: 8480-6 BMI: 30.2 Code: 08906-1 Heart Rate 1: 74 bpm Height: 5'3" SpO2: 96% Weight: 173 lbs 10/14/2015 Blood Pressure 1: 122/72 Code: 8480-6 BMI: 30.3 Code: 95835-6 Heart Rate 1: 76 bpm Height: 5'3" SpO2: 97% Weight: 174 lbs 03/31/2015 Blood Pressure 1: 140/68 Code: 8480-6 BMI: 30.0 Code: 36155-9 Heart Rate 1: 93 bpm Height: 5'3" SpO2: 94% Weight: 172 lbs 08/31/2014 Blood Pressure 1: 122/74 Code: 8480-6 BMI: 31.2 Code: 23283-6 Heart Rate 1: 76 bpm Height: 5'3" Weight: 179 lbs 08/10/2014 Blood Pressure 1: 138/62 Code: 8480-6 BMI: 31.0 Code: 07064-8 Heart Rate 1: 80 bpm Height: 5'3" Weight: 178 lbs 05/06/2014 BMI: 31.2 Code: 94022-7 Height: 5'3" Weight: 179 lbs 04/14/2014 Blood Pressure 1: 136/68 Code: 8480-6 BMI: 31.4 Code: 81591-2 Heart Rate 1: 74 bpm Height: 5'3" Weight: 180 lbs 11/10/2013 Blood Pressure 1: 102/50 Code: 8480-6 BMI: 30.7 Code: 47348-4 Heart Rate 1: 76 bpm Height: 5'3" Weight: 176 lbs 07/14/2013 Blood Pressure 1: 136/80 Code: 8480-6 BMI: 30.3 Code: 20268-0 Heart Rate 1: 70 bpm Height: 5'3" Weight: 174 lbs 06/12/2013 Blood Pressure 1: 142/82 Code: 8480-6 BMI: 30.9 Code: 20788-2 Heart Rate 1: 72 bpm Height: 5'3" Weight: 177 lbs 05/20/2013 Blood Pressure 1: 132/70 Code: 8480-6 BMI: 31.2 Code: 24234-9 Heart Rate 1: 88 bpm Height: 5'3" Weight: 179 lbs 04/09/2013 Blood Pressure 1: 136/70 Code: 8480-6 BMI: 31.0 Code: 97018-0 Heart Rate 1: 100 bpm Height: 5'3" Weight: 178 lbs 01/26/2013 Blood Pressure 1: 118/56 Code: 8480-6 BMI: 30.7 Code: 29182-8 Heart Rate 1: 87 bpm Height: 5'3" Weight: 176 lbs 12/23/2012 Blood Pressure 1: 136/76 Code: 8480-6 Heart Rate 1: 104 bpm Respiratory Rate: 20 bpm Weight: 178 lbs 12/15/2012 Blood Pressure 1: 150/82 Code: 8480-6 Heart Rate 1: 100 bpm Temperature: 36.7 (C) / 98.1 (F) Weight: 178 lbs 10/22/2012 Blood Pressure 1: 138/82 Code: 8480-6 BMI: 30.2 Code: 48287-0 Heart Rate 1: 100 bpm Height: 5'3" Weight: 173 lbs 08/21/2012 Blood Pressure 1: 136/70 Code: 8480-6 BMI: 30.6 Code: 45479-5 Heart Rate 1: 98 bpm Height: 5'3" Weight: 175 lbs 8 oz 07/17/2012 Blood Pressure 1: 152/68 Code: 8480-6 BMI: 29.9 Code: 17863-3 Heart Rate 1: 92 bpm Height: 5'3" [...] 1: 122/68 Code: 8480-6 BMI: 29.5 Code: 11036-7 Heart Rate 1: 96 bpm Height: 5'3" [...] 1: 130/72 Code: 8480-6 BMI: 30.4 Code: 41861-5 Heart Rate 1: 92 bpm Height: 5'3" Respiratory Rate: 16 bpm Weight: 174 lbs 8 oz 06/19/2011 Blood Pressure 1: 122/70 Code: 8480-6 BMI: 30.2 Code: 91656-6 Heart Rate 1: 104 bpm Height: 5'3" Weight: 173 lbs 06/05/2011 Blood Pressure 1: 100/50 Code: 8480-6 BMI: 29.6 Code: 78419-5 Heart Rate 1: 96 bpm Height: 5'3" [...] recently started s eeking counseling from her corn picker. depression Pertinent Findings anxiety 08/21/2012 None depression [...] ss 07/17/2012 Pt states that her sherine vasquez is the largest cause of her stress. [...] recently started s eeking counseling from her corn picker. depression Pertinent Findings anxiety 07/17/2012 None depression [...] Encounters Encounter Performer Loca tion Codes Date ([id number]) [id number] EST. P ATIENT, LEVEL III Diagnosis: Gastro-esophageal reflux disease without esophagitis[ICD10: K21.9] [facility] CPT-4: 12943 06/12/2018 ([id number]) 57100 EST. P ATIENT, LEVEL III Diagnosis: Gastro-esophageal reflux disease without esophagitis[ICD10: K21.9] Diagnosis: Cough[ICD10: R05] [facility] CPT-4: 75761 05/26/2018 ([id number]) 83906 EST. 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 P ATIENT, LEVEL IV Diagnosis: Type 2 diabetes mellitus with hyperglycemia[ICD10: E11.65] Diagnosis: Essential (primary) hypertension[ICD10: I10] Amy Cheung MD, [facility] CPT-4: 66108 11/25/2017 ([id number]) 69882 EST. P ATIENT, LEVEL IV Diagnosis: Type 2 diabetes mell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[ICD10: E11.9] Diagnosis: Mixed hyperlipidemia[ICD10: E78.2] Diagnosis: Candidal stomatitis[ICD10: B37.0] Amy Cheung MD, [facility] CPT-4: 26148 09/18/2017 ([id number]) 27642 EST. P ATIENT, LEVEL IV Diagnosis: Type 2 diabetes mell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[ICD10: E11.9] Diagnosis: Mixed hyperlipidemia[ICD10: E78.2] Diagnosis: Essential (primary) hypertension[ICD10: I10] Diagnosis: Encounter for immunization[ICD10: Z23] Amy Cheung MD, [facility] CPT-4: 37719 05/02/2017 ([id number]) 07782 EST. P ATIENT, LEVEL III Diagnosis: Candidal stomatitis[ICD10: B37.0] Riya Cheung MD, [facility] CPT- 4: 13814 03/29/2017 ([id number]) 80109 EST. P ATIENT, LEVEL IV Diagnosis: Essential (primary) hypertension[ICD10: I10] Diagnosis: Type 2 diabetes mell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[ICD10: E11.9] Amy Cheung MD, [facility] CPT-4: 88488 11/15/2016 61308 EST. PATIENT, LEVEL III Diagnosis: Other malaise[ICD10: R53.81] Diagnosis: Other fatigue[ICD10: R53.83] Diagnosis: Type 2 diabetes mellitus with hyperglycemia[ICD10: E11.65] Diagnosis: Essential (primary) hypertension[ICD10: I10] Diagnosis: Weakness[ICD10: R53.1] Mariana Cheung MD, [facility] CPT-4: 89430 11/06/2016 ([id number]) 15035 EST. P ATIENT, LEVEL III Diagnosis: Type 2 diabetes mellitus with hyperglycemia[ICD10: E11.65] Amy Cheung MD, [facility] CPT-4: 15991 08/01/2016 ([id number]) 51246 EST. P ATIENT, LEVEL III Diagnosis: Type 2 diabetes mellitus with hyperglycemia[ICD10: E11.65] Diagnosis: Gastroparesis[ICD10: K31.84] Amy Cheung MD, [facility] CPT-4: 49739 07/02/2016 ([id number]) 75101 EST. P ATIENT, LEVEL IV Diagnosis: Type 2 diabetes mellitus with hyperglycemia[ICD10: E11.65] Diagnosis: Hypothyroidism, unspecified[ICD10: E03.9] Amy Cheung MD, [facility] CPT-4: 99606 06/04/2016 ([id number]) 26856 EST. P ATIENT, LEVEL IV Diagnosis: Type 2 diabetes mellitus with hyperglycemia[ICD10: E11.65] Diagnosis: Mixed hyperlipidemia[ICD10: E78.2] Diagnosis: Essential (primary) hypertension[ICD10: I10] Amy Cheung MD, [facility] CPT-4: 85876 03/26/2016 ([id number]) 61008 EST. P ATIENT, LEVEL III Diagnosis: Essential (primary) hypertension[ICD10: I10] Diagnosis: Adjustment disorder with mixed anxiety and depressed mood[ICD10: F43.23] Amy Cheung MD, [facility] CPT-4: 41412 11/23/2015 ([id number]) 62197 EST. P ATIENT, LEVEL IV Diagnosis: Type 2 diabetes mellitus with hyperglycemia[ICD10: E11.65] Diagnosis: Panic disorder [episodic paroxysmal anxiety] without agoraphobia[ICD10: F41.0] Diagnosis: Adjustment disorder with mixed anxiety and depressed mood[ICD10: F43.23] Diagnosis: Essential (primary) hypertension[ICD10: I10] Amy Cheung MD, [facility] CPT-4: 46766 10/14/2015 ([id number]) 45562 EST. P ATIENT, LEVEL IV Diagnosis: DIABETES TYPE II[ICD9: 250.00] Diagnosis: GENERALIZED ANXIETY DISEASE[ICD9: 300.02] Diagnosis: ESSENTIAL HYPERTENSION[ICD9: 401.9] Diagnosis: ESOPHAGEAL REFLUX[ICD9: 530.81] Amy Cheung MD, [facility] CPT-4: 37950 03/31/2015 ([id number]) 39873 EST. P ATIENT, LEVEL IV Diagnosis: DM W/O COMPLICATION TYPE II, UNCONTROLLED[ICD9: 250.02] Diagnosis: ESSENTIAL HYPERTENSION[ICD9: 401.9] Diagnosis: DEPRESSIVE DISORDER NEC[ICD9: 311] Diagnosis: GENERALIZED ANXIETY DISEASE[ICD9: 300.02] Amy Cheung MD, [facility] CPT-4: 97831 08/31/2014 ([id number]) 64795 EST. P ATIENT, LEVEL IV Diagnosis: ESSENTIAL HYPERTENSION[ICD9: 401.9] Diagnosis: DIABETES TYPE II[ICD9: 250.00] Diagnosis: Constipation - functional[ICD9: 564.09] Diagnosis: Abdominal pain[ICD9: 789.00] Amy Cheung MD, [facility] CPT-4: 44078 08/10/2014 ([id number]) 33216 EST. P ATIENT, LEVEL III Diagnosis: Flu vaccine need[ICD9: V04.81] Diagnosis: Neck pain[ICD9: 723.1] Diagnosis: Chronic allergic rhinitis[ICD9: 477.9] Amy Cheung MD, [facility] CPT-4: 78812 05/06/2014 ([id number]) 80961 EST. P ATIENT, LEVEL IV Diagnosis: DM W/O COMPLICATION TYPE II, UNCONTROLLED[ICD9: 250.02] Diagnosis: GENERALIZED ANXIETY DISEASE[ICD9: 300.02] Diagnosis: ESSENTIAL HYPERTENSION[ICD9: 401.9] Diagnosis: Neck pain[ICD9: 723.1] Amy Cheung MD, [facility] CPT-4: 39320 04/14/2014 ([id number]) 58383 EST. P ATIENT, LEVEL IV Diagnosis: ESSENTIAL HYPERTENSION[SNOMED: 44698644] Diagnosis: DIABETES TYPE II[SNOMED: 006281345] Diagnosis: Iliotibial band syndrome[ICD9: 728.89] Diagnosis: DEPRESSIVE DISORDER NEC[ICD9: 311] Diagnosis: GENERALIZED ANXIETY DISEASE[ICD9: 300.02] Amy Cheung MD, C CPT-4: 32060 11/10/2013 ([id number]) 99532 EST. P ATIENT, LEVEL III Diagnosis: DIABETES TYPE II[SNOMED: 322064621] Amy Cheung MD, [facility] CPT- 4: 66044 07/14/2013 ([id number]) 27593 EST. P ATIENT, LEVEL IV Diagnosis: ESSENTIAL HYPERTENSION[SNOMED: 75261852] Diagnosis: DM W/O COMPLICATION TYPE II, UNCONTROLLED[SNOMED: 58741351] Amy Cheung MD, [facility] CPT-4: 38172 06/12/2013 ([id number]) 95926 EST. P ATIENT, LEVEL III Diagnosis: DIABETES TYPE II[SNOMED: 603531043] Amy Cheung MD, [facility] CPT- 4: 20506 05/20/2013 ([id number]) 68174 EST. P ATIENT, LEVEL IV Diagnosis: ESSENTIAL HYPERTENSION[SNOMED: 38175350] Diagnosis: HYPERLIPIDEMIA[ICD9: 272.4] Diagnosis: Type II diabetes mellitus, uncontrolled[SNOMED: 14722243] Amy Cheung MD, [facility] CPT-4: 17675 04/09/2013 ([id number]) 63838 EST. P ATIENT, LEVEL III Diagnosis: ESSENTIAL HYPERTENSION[SNOMED: 98188467] Diagnosis: ENCNTR LONG-RX USE NEC[ICD9: V58.69] Diagnosis: IMPACTED CERUMEN[ICD9: 380.4] Amy Cheung MD, [facility] CPT-4: 35632 01/26/2013 ([id number]) 95871 EST. P ATIENT, LEVEL IV Diagnosis: DIABETES TYPE II[SNOMED: 060042491] Diagnosis: ESSENTIAL HYPERTENSION[SNOMED: 76083015] Diagnosis: Polymyalgia[ICD9: 725] Amy Cheung MD, [facility] CPT-4: 82145 12/23/2012 ([id number]) 80613 EST. P ATIENT, LEVEL III Diagnosis: ACUTE MAXILLARY SINUSITIS[ICD9: 461.0] Diagnosis: COUGH[ICD9: 786.2] Amy Cheung MD, [facility] CPT-4: 81251 12/15/2012 ([id number]) 67879 EST. P ATIENT, LEVEL III Diagnosis: ANAL OR RECTAL PAIN[ICD9: 569.42] Diagnosis: Bruising[ICD9: 924.9] Diagnosis: Hip pain[ICD9: 719.45] Amy Cheung MD, [facility] CPT-4: 07135 10/22/2012 ([id number]) 50910 EST. P ATIENT, LEVEL IV Diagnosis: ESSENTIAL HYPERTENSION[SNOMED: 74421634] Diagnosis: DIABETES TYPE II[SNOMED: 276440479] Amy Cheung MD, [facility] CPT- 4: 36006 08/21/2012 ([id number]) 09563 EST. P ATIENT, LEVEL IV Diagnosis: DIABETES TYPE II[SNOMED: 640844515] Diagnosis: DEPRESSIVE DISORDER NEC[ICD9: 311] Amy Cheung MD, [facility] CPT- 4: 60526 07/17/2012 ([id number]) 68620 EST. P ATIENT, LEVEL III Diagnosis: ESSENTIAL HYPERTENSION[SNOMED: 53215407] Diagnosis: DEPRESSIVE DISORDER NEC[ICD9: 311] Amy Cheung MD, [facility] CPT- 4: 42032 07/08/2012 23225 EST. PATIENT, LEVEL IV Diagnosis: ESSENTIAL HYPERTENSION[SNOMED: 24129030] Diagnosis: DIABETES TYPE II[SNOMED: 399880100] Amy Cheung MD, [facility] CPT- 4: 32226 06/09/2012 ([id number]) 99630 EST. P ATIENT, LEVEL III Diagnosis: Acute sinusitis[ICD9: 461.9] Diagnosis: FEVER NOS[ICD9: 780.60] Amy Cheung MD, [facility] CPT-4: 48506 02/12/2012 ([id number]) 52133 EST. P ATIENT, LEVEL III Diagnosis: Otalgia of both ears[ICD9: 388.70] Diagnosis: Hemorrhoids[ICD9: 455.6] Diagnosis: Rectal or anal pain[ICD9: 569.42] [facility] CPT-4: 07110 02/05/2012 ([id number]) 56939 EST. P ATIENT, LEVEL IV Diagnosis: Dysuria[ICD9: 788.1] Diagnosis: ACUTE MAXILLARY SINUSITIS[ICD9: 461.0] Diagnosis: Allergic rhinitis[ICD9: 477.9] Amy Cheung MD, [facility] CPT-4: 07988 11/14/2011 ([id number]) 26627 EST. P ATIENT, LEVEL IV Diagnosis: DIABETES TYPE II[SNOMED: 589442730] Diagnosis: Cough[ICD9: 786.2] Diagnosis: FEVER NOS[ICD9: 780.60] Amy Cheung MD, [facility] CPT-4: 46577 10/08/2011 26450 EST. PATIENT, LEVEL IV Diagnosis: OTHER CONSTIPATION[ICD9: 564.09] Diagnosis: IMPACTED CERUMEN[ICD9: 380.4] Diagnosis: Recurrent sinusitis[ICD9: 473.9] Amy Cheung MD, [facility] CPT-4: 43162 08/28/2011 16523 EST. PATIENT, LEVEL IV Diagnosis: Neck pain, acute[ICD9: 723.1] Diagnosis: Cough[ICD9: 786.2] Diagnosis: Cerumen impaction[ICD9: 380.4] Amy Cheung MD, [facility] CPT-4: 62908 08/23/2011 45391 EST. PATIENT, LEVEL IV Diagnosis: ESSENTIAL HYPERTENSION[SNOMED: 56270196] Diagnosis: HYPERLIPIDEMIA[ICD9: 272.4] Diagnosis: DIABETES TYPE II[SNOMED: 100604715] Diagnosis: DEPRESSIVE DISORDER NEC[ICD9: 311] Diagnosis: 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[ICD9: 357.7] Amy Cheung MD, [facility] CPT-4: 72275 07/24/2011 88718 EST. PATIENT, LEVEL IV Diagnosis: Abdominal pain[ICD9: 789.00] Diagnosis: Hematochezia[ICD9: 578.1] Diagnosis: Back pain[ICD9: 724.5] Amy Cheung MD, [facility] CPT-4: 15311 06/19/2011 08003 EST. 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] Diagnosis: VACCIN FOR INFLUENZA[ICD9: V04.81] Diagnosis: DEPRESSIVE DISORDER NEC[ICD9: 311] Diagnosis: DIABETES TYPE II[SNOMED: 673249012] [facility] CPT- 4: 03581 06/05/2011 Plan of Care Planned Activity Notes [...] lactaid pills 06/12/2018 Appointment: Amy Cheung WPtel: [phone] [facility] (15 min) Moderate 06/12/2018 Appointment: Riya Sheikh WPtel: [phone] [phone] [facility] - Annual Wellness Visit 06/12/2018 Patient Education: Patient Medication Summary Completed 06/12/2018 Visit Plan: Esophageal Reflux - the patient has been counseled against excessive intake of caffeine, spicy foods, peppermint, and cinnamon - all of which can exacerbate esophageal reflux. The patient is to take medications as prescribed and call the office if the symptoms are not improving. Gbgim-rusnbcrcm-utrporl injection today in the office -start claritin [...] less controlled. 04/01/2018 Appointment: Amy Cheung WPtel: [phone] [facility] [place] (15 min) Moderate 04/01/2018 Patient Education: Patient Medication Summary Completed 04/01/2018 Patient Education: Patient Medication Summary Completed 03/31/2018 [facility]ment: [phone] (15 min) Moderate 01/15/2018 Visit Plan: Diabetes [...] home. 11/25/2017 Appointment: [phone] (15 min) Moderate 11/25/2017 Patient Education: Patient [...] nystatin 09/18/2017 Appointment: [phone] (15 min) Moderate 09/18/2017 Patient Education: Patient [...] today 05/02/2017 Appointment: Amy Cheung WPtel: [phone] [facility] (15 min) Moderate 05/02/2017 Patient Education: Patient Medication Summary Completed 05/02/2017 Appointment: [phone] [place] (15 min) Moderate 04/15/2017 Visit Plan: Thrush-discussed natura l and expected course of this diagnosis and to alert me if symptoms do not follow expected course, or if any worse. RX sent to patient's pharmacy. Patient verbalized understanding of plan. 03/29/2017 Appointment: Riya Sheikh WPtel: [phone] [phone] [place] (30 min) Complex 03/29/2017 Patient Education: Patient Medication Summary Completed 03/29/2017 Patient Education: Obesity Completed 03/29/2017 Appointment: [phone] [facility] (15 min) Moderate 03/14/2017 Visit Plan: Diabetes [...] home. 11/15/2016 Appointment: Amy Cheung WPtel: [phone] [facility] [place] (15 min) Moderate 11/15/2016 Patient Education: Patient Medication Summary Completed 11/15/2016 Appointment: [phone] (15 min) Moderate 11/07/2016 Visit Plan: Fatigue, [...] glucose control. 11/06/2016 Appointment: [phone] (30 min) Complex 11/06/2016 Patient Education: Patient Medication Summary Completed 11/06/2016 Patient Education: Patient Medication Summary Completed 09/19/2016 Patient Education: Patient Medication Summary Completed 08/22/2016 Care Plan: Comp Metabolic Pending 08/22/2016 Care Plan: %Hba1C she can have drawn anytime after 09/04/16 LOINC : 73995-6 Pending 08/22/2016 Visit Plan: Diabetes Mellitus - [...] to clinic. 08/01/2016 Appointment: [phone] (15 min) Moderate 08/01/2016 Patient Education: Patient Medication Summary Completed 08/01/2016 Appointment: [phone] (15 min) Moderate 07/09/2016 Visit Plan: Diabetes [...] motility 07/02/2016 Appointment: Amy Che[facility]Ptel: [phone] [facility] [place] (15 min) Moderate 07/02/2016 Patient Education: [...] control. 06/04/2016 Appointment: [facility] Che[facility]Ptel: [phone] (15 min) Moderate 06/04/2016 Patient Education: Patient [...] medications. 03/26/2016 Appointment: [facility]: [phone] [place] (15 min) Moderate 03/26/2016 Patient Education: [...] Completed 10/14/2015 Appointment: Amy Cheung [facility]Ptel: [phone] [facility] [place] (15 min) Moderate 10/13/2015 Appointment: [facility]el: [phone] [place] (15 min) Moderate 05/09/2015 Visit Plan: [...] esophageal cancer. 03/31/2015 Appointment: Amy Cheung WPtel: [address] [place] [address] (15 min) Moderate 03/31/2015 Patient Education: Patient Medication Summary Completed 03/31/2015 Patient Education: Hypertension Completed 03/31/2015 Appointment: (15 min) Moderate 02/11/2015 Appointment: Amy Cheung WPtel: [facility]4 [facility] Sick 09/29/2014 Visit Plan: Diabetes Mellitus - con galileolled [...] 9 months. 08/31/2014 Appointment: Amy Cheung WPtel: [facility]2 [facility] Follow up 08/31/2014 Patient Education: Patient Medication [...] Hypertension Completed 08/10/2014 Appointment: Amy Cheung WPtel: [address] [place] [address] Follow up 05/10/2014 Visit Plan: Allergies - [...] be ordered. 05/06/2014 Appointment: Amy Cheung WPtel: [address] [place], [place] [phone] [place] Follow up 05/06/2014 Patient Education: Patient Medication Summary Completed 05/06/2014 Patient Education: .Cervicalgia Neck Pain Completed 05/06/2014 Appointment: Amy Cheung WPtel: [address] [place], [place] [phone] [place] Follow up 05/05/2014 Visit Plan: Hypertension [...] the neck. 04/14/2014 Appointment: Amy Cheung WPtel: [facility] Follow up 04/14/2014 Patient Education: Patient Medication [...] exercises. 11/10/2013 Appointment: Amy Cheung WPtel: [phone] [facility] [place] Other 11/10/2013 Patient Education: Patient Medication Summary [...] monitor symptoms. 07/14/2013 Appointment: Amy Cheung WPtel: [phone] [facility] Other 07/14/2013 Patient Education: Patient Medication Summary Completed 07/14/2013 Appointment: Riya Sheikh WPtel: [phone] [phone] Follow up 07/13/2013 Visit Plan: Hypertension - [...] control. 06/12/2013 Appointment: Ri[facility] Sheikh [facility]Ptel: [phone] Other 06/12/2013 Patient Education: Patient Medication Summary [...] to patient. 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 Kraus as he will [...] Glyburide restarted. 04/09/2013 Appointment: Amy Cheung WPtel: [facility]8 [facility] Follow up 04/09/2013 Patient Education: Patient Medication Summary Completed 04/09/2013 Patient Education: Hypertension Completed 04/09/2013 Appointment: Amy Cheung WPtel: [facility]4 [facility] Follow up 03/30/2013 Visit Plan: Hypertension - [...] today 01/26/2013 Appointment: [facility]el: [phone] Other 01/26/2013 Patient Education: Patient Medication Summary [...] at home. 12/23/2012 Appointment: Amy Cheung WPtel: [address] [place], [place] [phone] Follow up 12/23/2012 Patient Education: Patient Medication Summary Completed 12/23/2012 Patient Education: Hypertension Completed 12/23/2012 Visit Plan: Sinusitis - Pt has acut e infection - pain in face, maxillary region, Pt informed to use decongestant, RX given to patient, sinus rinses also recommended. Call if symptoms do not show improvement. 12/15/2012 Appointment: Amy Cheung WPtel: [address] [place], [place] [phone] Sick 12/15/2012 Patient Education: Patient Medication Summary Completed 12/15/2012 Visit Plan: Bruising and pain post fall- with hip pain - recommended pt to have xray of hips and pelvis and lumbar spine as she is having the pain in her hips post fall. 10/22/2012 Appointment: Amy Cheung WPtel: [address] [place], [place] [phone] Other 10/22/2012 Patient Education: Patient Medication Summary Completed 10/22/2012 Appointment: Amy Cheung WPtel: [address] [place], [place] [phone] Follow up 09/30/2012 Visit Plan: Hypertension - [...] controlled. 08/21/2012 Appointment: [facility]el[phone] Follow up 08/21/2012 Patient Education: Patient Medication [...] that [facility] can [facility] can [facility] and change together. No change to Pat's medications today. Time based documentation -I spent over 40 minutes with the patient in discussion of the disease process, expected course, and overall prognosis for the patient's disease state. The patient/family expressed understanding. 07/17/2012 Appointment: Amy Che[facility]Ptel[phone] Follow up 07/17/2012 Patient Education: Patient Medication [...] today. 07/08/2012 Appointment: [facility]Ptel: [phone] Other 07/08/2012 Patient Education: Patient Medication Summary [...] labs checked. 06/09/2012 Appointment: Amy Cheung WPtel: [address] [place] [address] Other 06/09/2012 Patient Education: Patient Medication Summary Completed 06/09/2012 Patient Education: High Blood Pressure: Essential Hypertension Completed 06/09/2012 Visit Plan: Sinusitis - Pt has acut e infection - pain in face, maxillary region, Pt informed to use decongestant, RX given to patient, sinus rinses also recommended. Call if symptoms do not show improvement. 02/12/2012 Appointment: Amy Cheung WPtel: [address] [place] [address] Other 02/12/2012 Patient Education: Patient Medication Summary [...] in place. 02/05/2012 Appointment: Amy Cheung WPtel: [address] [place] [address] Other 02/05/2012 Patient Education: Patient Medication Summary [...] any worse. Check your thyroid labs at [facility]-we will call you with the results. Allergies - chronic - recommended pt to use allergy medication as prescribed. Pt has been counseled as the the appropriate use of the medication. Pt to call if allergy symptoms are not controlled with the medication. Dysuria - UA negative 11/14/2011 Appointment: Amy Cheung WPtel: [facility] Other 11/14/2011 Appointment: Amy Cheung WPtel: [address] [place] [address] Other 11/14/2011 Patient Education: Patient Medication Summary [...] patient today. 10/08/2011 Appointment: Amy Cheung WPtel: [facility] Other 10/08/2011 Patient Education: Patient Medication [...] removal process. 08/28/2011 Appointment: Amy Cheung WPtel: [address] [place], [place] [id number] Other 08/28/2011 Patient Education: Patient Medication Summary [...] in readings. 07/24/2011 Appointment: Amy Cheung WPtel: [facility]6 [facility]66[facility] Other 07/24/2011 Patient Education: Patient Medication Summary [...] lower back. 06/19/2011 Appointment: Amy Cheung WPtel: [facility]2 [facility] Other 06/19/2011 Patient Education: Patient Medication [...] symptoms. 06/05/2011 Appointment: [facility]Ptel[phone] [facility] 06/05/2011 Patient Education: Patient Medication Summary Completed [...] become less controlled. I sent prescriptions to [facility] for the following medications: LOSARTAN 25MG DAILY [...] to allow for greater blood glucose control. increase the metform in to 1.5 tablets [...] to patient today. . Diabetes Mellitus - Uncontrolled - [...] every week - samples given to patient. take 1/2 bottle of m agnesium citrate [...] a copy of this note to her Coal Tower Operator - Dr. Kraus as he will [...] cerumen removal with warm water today . Fatigue, malaise, diaphoresis, weakness - will [...] months based on previous levels of control. you are due for a re [...] Advised pt to use lactaid pills . Abdominal pain - d iscussed need [...] 300mg tid if needed for neuropathic symptoms. decrease claritin to 1/2 a tablet twice [...] pharmacy. Patient verbalized understanding of plan. . Sinusitis - Pt has acute infection [...] office if the symptoms are not improving. Swvjl-nxjzbgnvv-qugnlmt injection today in the office -start claritin [...] any worse. Check your thyroid labs at [facility]-we will call you [...] any worse. Check your thyroid labs at [facility]-we will call you [...]
--- OUTSIDE RECORDS SUMMARY | 2019-08-12 23:07 | XMS REPORT | CCD ---
Author Author Veronica Cheung Organization Amy Cheung MD, [facility] Address [address] [place] [address] Phone Care Team Providers Care Fitter'S Assistant Name Role Phone PP Unavailable CCM Unavailable Summary Purpose Interface Exchange Insurance Providers Payer name Policy type / Coverage type Covered alliance party ID Effective Begin Date Effective End Date WPS Medicare Part B Medicare Part B [id number] Unknown GEHA Medicare Part B [id number] Unknown Family history Father Diagnosis Age At [...] ICD-9: 250.00 ICD-10: E11.9 Active 11/15/2016 Unknown Type 2 diabetes quitnen itus with hyperglycemia ICD-9: 250.02 ICD-10: E11.65 Active 04/14/2014 Unknown Candidal stomatitis ICD- 9: 112.0 ICD-10: [...] complications ICD-9: 250.00 ICD-10: E11.9 11/15/2016 Active Type 2 diabetes quinten itus with hyperglycemia ICD-9: 250.02 ICD-10: E11.65 04/14/2014 Active Candidal stomatitis ICD- 9: 112.0 ICD-10: [...] 1.5 mg/0.5 mL subcutaneous pen injector RxNorm: 3754149 INJECT 0.5ML SUBCUTANEOUSLY EVERY WEEK 02/24/2018 04/29/2019 Active levothyroxine 25 mcg tablet RxNorm: 104243 TAKE 1 TABLET DAILY 02/13/2018 08/11/2018 Active mesalamine 800 mg ta blet,delayed release RxNorm: 394983 TAKE 1 TABLET TWICE A DAY 12/10/2017 12/04/2018 Ac tive metformin 500 mg tablet RxNorm: 586819 1.5 Tablet(s) PO BID 11/25/2017 11/19/2018 Active levothyroxine 25 mcg tablet RxNorm: 786756 TAKE 1 TABLET DAILY 11/19/2017 02/12/2018 Inactive Nexium 40 mg capsule ,delayed release RxNorm: 043094 TAKE 1 CAPSULE TWICE DAILY 11/15/2017 11/09/2018 Ac tive Effexor XR 75 mg cap alma,extended release RxNorm: 492759 1 Capsule(s) PO daily 10/14/2017 10/08/2018 Ac tive Bactroban 2 % topica l cream RxNorm: 752627 1 Application TOP TID 09/18/2017 09/27/2017 Inactive nystatin 100,000 uni t/mL oral suspension RxNorm: 559960 5 Milliliter(s) PO TI D 09/18/2017 09/27/2017 In active oxazepam 10 mg capsule RxNorm: 926581 1 Capsule(s) PO TID as needed anxiety 09/02/2017 02/28/2018 In active fluticasone 50 mcg/a ctuation nasal spray,suspension RxNorm: 9785381 [place] USE ONE SPRAY IN EACH NOSTRIL TWICE A DAY 08/29/2017 12/26/2017 Inactive oxazepam 10 mg capsule RxNorm: 722404 1 Capsule(s) PO TID as needed anxiety 08/29/2017 09/01/2017 In active furosemide 40 mg tablet RxNorm: 346033 TAKE 1 TABLET DAILY 08/26/2017 08/20/2018 Active pilocarpine 5 mg tablet RxNorm: 3335273 TAKE 4 TABLETS DAILY 08/26/2017 08/20/2018 Active metformin 500 mg tablet RxNorm: 294568 TAKE 1 TABLET TWICE A DAY 08/20/2017 11/24/2017 Inactive Claritin-D 12 Hour 5 mg-120 mg tablet,extended release RxNorm: 3259142 Tablet(s) TAKE ONE (1) TABLET BY MOUTH TWICE DAILY 07/29/2017 09/26/2017 Inactive fluticasone 50 mcg/a ctuation nasal spray,suspension RxNorm: 5030069 [place] USE ONE SPRAY IN EACH NOSTRIL TWICE A DAY 07/25/2017 07/24/2017 Inactive fluticasone 50 mcg/a ctuation nasal spray,suspension RxNorm: 4435288 [place] USE ONE SPRAY IN EACH NOSTRIL TWICE A DAY 07/25/2017 08/28/2017 Inactive fluticasone 50 mcg/a ctuation nasal spray,suspension RxNorm: 9087362 [place] USE ONE SPRAY IN EACH NOSTRIL TWICE A DAY 06/04/2017 07/24/2017 Inactive montelukast 10 mg ta blet RxNorm: 303912 TAKE 1 TABLET DAILY 06/03/2017 05/28/2018 Active levothyroxine 25 mcg tablet RxNorm: 688183 TAKE 1 TABLET DAILY 05/13/2017 11/08/2017 Inactive Voltaren 1 % topical gel RxNorm: 799739 2 Gram(s) TOP QID 05/02/2017 2017 Inactive nystatin 100,000 uni t/mL oral suspension RxNorm: 383039 5 Milliliter(s) PO QI D 03/29/2017 04/11/2017 In active Diflucan 150 mg tablet RxNorm: 489746 1 Tablet(s) PO daily 03/29/2017 05/01/2017 Inactive Trulicity 1.5 mg/0.5 mL subcutaneous pen injector RxNorm: 0114885 INJECT 0.5ML SUBCUTANEOUSLY EVERY WEEK 02/28/2017 01/29/2018 Inactive levothyroxine 25 mcg tablet RxNorm: 219123 1 Tablet(s) PO daily 11/19/2016 11/18/2016 Inactive levothyroxine 25 mcg tablet RxNorm: 335508 1 Tablet(s) PO daily 11/19/2016 05/12/2017 Inactive Claritin 10 mg tablet RxNorm: 952639 1 Tablet(s) PO daily 11/07/2016 11/06/2016 Inactive Claritin 10 mg tablet RxNorm: 446130 1 Tablet(s) PO daily 11/07/2016 12/06/2016 Inactive Zithromax Z-Ankit 250 mg tablet RxNorm: 272871 1 Tablet(s) PO UD 11/07/2016 05/01/2017 Inactive oxazepam 10 mg capsule RxNorm: 376611 1 Capsule(s) PO TID as needed anxiety 11/01/2016 12/30/2016 In active Nexium 40 mg capsule ,delayed release RxNorm: 636121 1 Capsule(s) PO BID 10/25/2016 10/19/2017 In active Claritin-D 12 Hour 5 mg-120 mg tablet,extended release RxNorm: 8871037 Tablet(s) TAKE ONE (1) TABLET BY MOUTH TWICE DAILY 10/25/2016 12/23/2016 Inactive mesalamine 800 mg ta blet,delayed release RxNorm: 476202 1 Tablet(s) PO BID 09/18/2016 09/17/2016 In active mesalamine 800 mg ta blet,delayed release RxNorm: 309317 1 Tablet(s) PO BID 09/18/2016 06/14/2017 In active Effexor XR 75 mg cap alma,extended release RxNorm: 100567 1 Capsule(s) PO daily 08/30/2016 08/24/2017 In active metformin 500 mg tablet RxNorm: 400031 1 Tablet(s) PO BID 08/17/2016 08/11/2017 Inactive oxazepam 10 mg capsule RxNorm: 268754 1 Capsule(s) PO TID as needed anxiety 08/17/2016 10/15/2016 In active Claritin-D 12 Hour 5 mg-120 mg tablet,extended release RxNorm: 8499809 TAKE ONE (1) TABLET BY MOUTH TWICE DAILY... 08/16/2016 10/24/2016 Inactive furosemide 40 mg tablet RxNorm: 192666 1 Tablet(s) daily TAKE 1 TABLET DAILY 08/14/2016 08/08/2017 In active Effexor XR 75 mg cap alma,extended release RxNorm: 408584 1 Capsule(s) PO daily 08/14/2016 08/29/2016 In active pilocarpine 5 mg tablet RxNorm: 4822186 4 Tablet(s) PO daily TAKE 4 TABLETS YARI Y 08/14/2016 08/08/2017 In active metoclopramide 5 mg tablet RxNorm: 461377 1/2 to 1 Tablet(s) PO TID for nause and GI dysmotility 07/02/2016 11/14/2016 Inactive Effexor XR 75 mg cap alma,extended release RxNorm: 213660 1 Capsule(s) PO daily 07/02/2016 08/13/2016 In active metformin 500 mg tablet RxNorm: 189919 1/2 TABLET(S) PO BID X2 WEEKS THEN INCRE ASE TO 1 TABLET PO BID THEREAFTER 06/26/2016 08/16/2016 Inactive 30 day supply Claritin-D 12 Hour 5 mg-120 mg tablet,extended release RxNorm: 8597294 1 Tablet(s) PO BID 06/18/2016 08/15/2016 Inactive montelukast 10 mg ta blet RxNorm: 993197 1 Tablet(s) PO daily 06/13/2016 06/02/2017 Inactive metformin 500 mg tablet RxNorm: 349265 1/2 Tablet(s) PO BID x2 weeks then incre ase to 1 Tablet PO BID thereafter 06/07/2016 06/06/2016 Inactive 30 day supply metformin 500 mg tablet RxNorm: 790084 1/2 Tablet(s) PO BID x2 weeks then incre ase to 1 Tablet PO BID thereafter 06/07/2016 06/25/2016 Inactive 30 day supply Diflucan 150 mg tablet RxNorm: 098171 1 Tablet(s) PO daily 03/27/2016 04/02/2016 Inactive nystatin 100,000 uni t/mL oral suspension RxNorm: 557435 5 Milliliter(s) PO QI D 03/27/2016 04/05/2016 In active nystatin 100,000 uni t/mL oral suspension RxNorm: 072643 5 Milliliter(s) PO QI D 03/27/2016 03/26/2016 In active Diflucan 150 mg tablet RxNorm: 156571 1 Tablet(s) PO daily 03/27/2016 03/26/2016 Inactive Effexor XR 75 mg cap alma,extended release RxNorm: 583898 1 Capsule(s) PO daily 03/26/2016 07/01/2016 In active this replaces the 150mg dose - we are we aning down her dose Trulicity 1.5 mg/0.5 mL subcutaneous pen injector RxNorm: 3667136 0.5 Milliliter(s) SQ QW 03/26/2016 02/27/2017 Inactive Trulicity 0.75 mg/0. 5 mL subcutaneous pen injector RxNorm: 1642335 1 injection SQ QW 03/13/2016 06/03/2016 Inactive Trulicity 0.75 mg/0. 5 mL subcutaneous pen injector RxNorm: 0370925 1/2 Milliliter(s) SQ QW 03/13/2016 03/12/2016 Inactive glyburide 2.5 mg tablet RxNorm: 362365 1/2 Tablet(s) PO BID 03/13/2016 03/25/2016 Inactive glyburide 2.5 mg tablet RxNorm: 644407 1/2 Tablet(s) PO BID 03/13/2016 03/12/2016 Inactive Claritin-D 12 Hour 5 mg-120 mg tablet,extended release RxNorm: 2592192 1 Tablet(s) PO BID 02/03/2016 10/24/2016 Inactive Synthroid 25 mcg tablet RxNorm: 935322 1 Tablet(s) PO daily 01/23/2016 11/18/2016 Inactive Synthroid 25 mcg tablet RxNorm: 868267 1 Tablet(s) PO daily 01/23/2016 01/22/2016 Inactive Claritin-D 12 Hour 5 mg-120 mg tablet,extended release RxNorm: 8808607 1 Tablet(s) PO BID 12/05/2015 05/31/2016 Inactive Effexor XR 150 mg ca psule,extended release RxNorm: 634454 TAKE 1 CAPSULE DAILY 12/05/2015 03/25/2016 In active Bydureon 2 mg/0.65 m L subcutaneous pen injector RxNorm: 3646093 2 Milligram(s) SQ QW 10/14/2015 03/12/2016 Inactive oxazepam 10 mg capsule RxNorm: 694865 1 Capsule(s) PO TID PRN as needed anxiet y 10/14/2015 04/10/2016 In active Nexium 40 mg capsule ,delayed release RxNorm: 347719 1 Capsule(s) BID TAKE 1 CAPSULE DAILY 10/14/2015 10/07/2016 Inactive this is a new RX - fill the twice daily dose instead of once daily dose Effexor XR 150 mg ca psule,extended release RxNorm: 861228 1 Capsule(s) PO daily TAKE 1 CAPSULE DAILY 10/03/2015 03/25/2016 Inactive pilocarpine 5 mg tablet RxNorm: 2138306 4 Tablet(s) PO daily TAKE 4 TABLETS YARI Y 08/09/2015 02/04/2016 In active pilocarpine 5 mg tablet RxNorm: 0238206 4 Tablet(s) PO daily TAKE 4 TABLETS YARI Y 07/26/2015 08/08/2015 In active Claritin-D 12 Hour 5 mg-120 mg tablet,extended release RxNorm: 6983264 1 Tablet(s) PO BID 05/02/2015 10/24/2016 Inactive furosemide 40 mg tablet RxNorm: 251384 1 Tablet(s) daily TAKE 1 TABLET DAILY 03/31/2015 03/24/2016 In active Nexium 40 mg capsule ,delayed release RxNorm: 685008 1 Capsule(s) BID TAKE 1 CAPSULE DAILY 03/31/2015 10/13/2015 Inactive this is a new RX - fill the twice daily dose instead of once daily dose Nexium 40 mg capsule ,delayed release RxNorm: 436726 1 Capsule(s) daily TA KE 1 CAPSULE DAILY 03/31/2015 03/30/2015 Inactive montelukast 10 mg ta blet RxNorm: 223184 1 Tablet(s) PO daily 03/31/2015 03/24/2016 Inactive Synthroid 25 mcg tablet RxNorm: 067499 1 Tablet(s) PO daily 01/17/2015 01/11/2016 Inactive Synthroid 25 mcg tablet RxNorm: 635046 1 Tablet(s) PO daily 01/03/2015 01/16/2015 Inactive Claritin-D 12 Hour 5 mg-120 mg tablet,extended release RxNorm: 5178790 1 Tablet(s) PO BID 12/29/2014 05/01/2015 Inactive Synthroid 25 mcg tablet RxNorm: 524775 1 Tablet(s) PO daily 12/20/2014 01/02/2015 Inactive Synthroid 25 mcg tablet RxNorm: 728982 1 Tablet(s) PO daily 12/07/2014 12/19/2014 Inactive Effexor XR 150 mg ca psule,extended release RxNorm: 831483 1 Capsule(s) PO daily TAKE 1 CAPSULE DAILY 11/30/2014 10/02/2015 Inactive Nexium 40 mg capsule ,delayed release RxNorm: 224493 Capsule(s) TAKE 1 CAP ALMA DAILY 11/30/2014 03/30/2015 In active fenofibric acid (cho line) 135 mg capsule,delayed release RxNorm: 735570 1 Capsule(s) PO daily 08/31/2014 08/25/2015 Inactive Bydureon 2 mg subcut aneous extended release suspension RxNorm: 9726866 1 injection SQ QW 07/21/2014 07/15/2015 Inactive fluticasone 50 mcg/a ctuation nasal spray,suspension RxNorm: 0082662 USE ONE SPRAY IN EACH NOSTRIL TWICE A DAY 07/06/2014 06/03/2017 Inactive Lipitor 10 mg tablet RxNorm: 744290 TAKE 1 TABLET AT BEDTIME 06/15/2014 10/13/2015 Inactive furosemide 40 mg tablet RxNorm: 581644 TAKE 1 TABLET DAILY 06/15/2014 03/30/2015 Inactive oxazepam 10 mg capsule RxNorm: 563823 1 Capsule(s) PO TID PRN as needed anxiet y 06/11/2014 12/07/2014 In active montelukast 10 mg ta blet RxNorm: 499404 1 Tablet(s) PO daily 05/25/2014 03/30/2015 Inactive oxazepam 10 mg capsule RxNorm: 299098 1 Capsule(s) PO TID PRN as needed anxiet y 05/06/2014 06/10/2014 In active montelukast 10 mg ta blet RxNorm: 404580 1 Tablet(s) PO daily 05/04/2014 05/24/2014 Inactive Nexium 40 mg capsule ,delayed release RxNorm: 953775 TAKE 1 CAPSULE DAILY 03/25/2014 11/29/2014 In active Nexium 40 mg capsule ,delayed release RxNorm: 287621 1 Capsule(s) PO daily TAKE 1 CAPSULE DAILY 03/02/2014 03/24/2014 Inactive oxazepam 10 mg capsule RxNorm: 942647 1 Capsule(s) PO TID PRN as needed 02/24/2014 04/24/2014 In active pilocarpine 5 mg tablet RxNorm: 7498777 TAKE 4 TABLETS DAILY 02/01/2014 07/25/2015 Inactive Claritin-D 12 Hour 5 mg-120 mg tablet,extended release RxNorm: 7860593 1 Tablet(s) PO BID 12/24/2013 10/24/2016 Inactive Effexor XR 150 mg ca psule,extended release RxNorm: 084645 1 Capsule(s) PO daily TAKE 1 CAPSULE DAILY 12/24/2013 11/29/2014 Inactive Klor-Con 10 mEq tabl et,extended release RxNorm: 166307 1 Tablet(s) PO daily 12/24/2013 10/13/2015 In active Bydureon 2 mg subcut aneous extended release suspension RxNorm: 5117639 1 injection SQ QW 12/07/2013 07/20/2014 Inactive Synthroid 25 mcg tablet RxNorm: 247958 1 Tablet(s) PO daily 12/02/2013 11/26/2014 Inactive Klor-Con 10 mEq tabl et,extended release RxNorm: 687447 1 Tablet(s) PO daily take 2 daily x 1 week then one daily thereafter 12/02/2013 12/23/2013 Inactive oxazepam 10 mg capsule RxNorm: 977771 1 Capsule(s) PO TID PRN 11/10/2013 01/08/2014 Inactive omeprazole 20 mg cap alma,delayed release RxNorm: 152600 1 Capsule(s) PO daily 11/10/2013 04/13/2014 In active Synthroid 50 mcg tablet RxNorm: 322727 Tablet(s) PO TAKE 1 TABLET DAILY 09/21/2013 12/01/2013 In active furosemide 40 mg tablet RxNorm: 839463 Tablet(s) PO TAKE 1 TABLET DAILY 09/21/2013 06/14/2014 In active Bydureon 2 mg subcut aneous extended release suspension RxNorm: 4861804 1 injection SQ QW 07/22/2013 12/06/2013 Inactive Bydureon 2 mg subcut aneous extended release suspension RxNorm: 6658962 1 injection SQ QW 07/14/2013 07/21/2013 Inactive Nexium 40 mg capsule ,delayed release RxNorm: 471096 Capsule(s) PO TAKE 1 CAPSULE DAILY 06/18/2013 11/09/2013 Inactive fluticasone 50 mcg/a ctuation nasal spray,suspension RxNorm: 770653 1 [place] NASAL BID 06/18/2013 07/05/2014 Inactive Lipitor 10 mg tablet RxNorm: 100642 Tablet(s) PO every other day 1 tablet qo d 06/18/2013 06/12/2014 In active losartan 25 mg tablet RxNorm: 018167 1 Tablet(s) PO daily 1 daily for blood p ressure 06/18/2013 10/15/2013 Inactive Toprol XL 25 mg tabl et,extended release RxNorm: 970657 1 Tablet(s) PO daily 06/18/2013 06/12/2014 In active Toprol XL 25 mg tabl et,extended release RxNorm: 350767 1 Tablet(s) PO daily 06/12/2013 06/17/2013 In active losartan 25 mg tablet RxNorm: 533618 1 Tablet(s) PO daily 1 daily for blood p ressure 06/12/2013 06/17/2013 Inactive Lipitor 10 mg tablet RxNorm: 403896 Tablet(s) PO every other day 1 tablet qo d 06/12/2013 06/17/2013 In active Effexor XR 150 mg ca psule,extended release RxNorm: 052956 1 Capsule(s) PO daily TAKE 1 CAPSULE DAILY 05/27/2013 12/23/2013 Inactive Bydureon 2 mg subcut aneous extended release suspension RxNorm: 7679475 1 injection SQ QW 05/20/2013 07/13/2013 Inactive Lipitor 10 mg tablet RxNorm: 687083 Tablet(s) PO every other day 1 tablet qo d 05/20/2013 06/11/2013 In active Pen Needle 32 x 5/32" RxNorm: Miscellaneous use with byetta pen 05/07/2013 09/03/2013 Inactive Effexor XR 150 mg ca psule,extended release RxNorm: 333904 1 Capsule(s) PO daily TAKE 1 CAPSULE DAILY 05/07/2013 05/26/2013 Inactive Pen Needle 32 x 5/32" RxNorm: Miscellaneous use with byetta pen 05/06/2013 05/06/2013 Inactive Pen Needle 32 x 5/32" RxNorm: Miscellaneous use with byetta pen 05/06/2013 05/05/2013 Inactive Byetta 5 mcg/0.02 mL per dose Sub-Q Pen Injector RxNorm: 171253 1 Unit Dose SQ BID 04/29/2013 05/19/2013 In active metformin ER 500 mg tablet,extended release 24 hr RxNorm: 509682 1 Tablet(s) PO BID 04/28/2013 06/19/2013 In active Byetta 5 mcg/0.02 mL per dose Sub-Q Pen Injector RxNorm: 948289 1 Unit Dose SQ BID 04/28/2013 04/27/2013 In active Byetta 5 mcg/0.02 mL per dose Sub-Q Pen Injector RxNorm: 947485 1 Unit Dose SQ BID 04/28/2013 04/28/2013 In active Influenza Virus Vacc ine 0.5 mL RxNorm: IM 04/27/2013 04/27/2013 Inactive glyburide 2.5 mg tablet RxNorm: 523744 1 Tablet(s) PO BID 04/27/2013 04/27/2013 Inactive glyburide 2.5 mg tablet RxNorm: 266810 1/2 Tablet(s) PO daily 04/13/2013 04/26/2013 Inactive glyburide 2.5 mg tablet RxNorm: 281979 1 Tablet(s) PO daily 04/09/2013 04/12/2013 Inactive metformin ER 500 mg tablet,extended release 24 hr RxNorm: 265773 2 Tablet(s) PO BID 04/09/2013 04/27/2013 In active Lipitor 10 mg tablet RxNorm: 102567 Tablet(s) PO TAKE 1 TABLET AT BEDTIME 03/17/2013 05/19/2013 In active losartan 25 mg tablet RxNorm: 685173 1 Tablet(s) PO daily 02/12/2013 06/11/2013 Inactive montelukast 10 mg ta blet RxNorm: 993043 1 Tablet(s) PO daily 02/09/2013 02/08/2013 Inactive montelukast 10 mg ta blet RxNorm: 177609 1 Tablet(s) PO daily 02/09/2013 02/03/2014 Inactive losartan 25 mg tablet RxNorm: 044214 1 Tablet(s) PO daily 02/09/2013 02/11/2013 Inactive losartan 25 mg tablet RxNorm: 426548 1 Tablet(s) PO daily 01/26/2013 02/08/2013 Inactive Effexor XR 150 mg ca psule,extended release RxNorm: 980767 Capsule(s) PO TAKE 1 CAPSULE DAILY 12/24/2012 05/06/2013 Inactive metformin ER 500 mg tablet,extended release 24 hr RxNorm: 816382 Tablet(s) PO TAKE 2 TABLETS TWICE A DAY 12/24/2012 04/08/2013 Inactive pilocarpine 5 mg tablet RxNorm: 3775126 Tablet(s) PO TAKE 4 TABLETS DAILY 12/24/2012 01/31/2014 In active levofloxacin 500 mg tablet RxNorm: 789157 1 Tablet(s) PO daily 12/15/2012 12/19/2012 Inactive Nexium 40 mg capsule ,delayed release RxNorm: 213595 Capsule(s) PO daily T [place] 1 CAPSULE DAILY 11/03/2012 06/17/2013 Inactive Claritin-D 12 Hour 5 mg-120 mg tablet,extended release RxNorm: 8498829 1 Tablet(s) PO BID 10/29/2012 10/23/2013 Inactive TAKE 1 TABLET BY MOUTH TWICE DAILY fluticasone 50 mcg/a ctuation nasal spray,suspension RxNorm: 2068142 1 [place] NASAL BID 10/08/2012 06/17/2013 Inactive Claritin-D 12 Hour 5 mg-120 mg tablet,extended release RxNorm: 1896836 1 Tablet(s) PO BID 09/09/2012 2012 Inactive TAKE 1 TABLET BY MOUTH TWICE DAILY montelukast 10 mg ta blet RxNorm: 521101 1 Tablet(s) PO daily 08/20/2012 02/08/2013 Inactive Synthroid 50 mcg tablet RxNorm: 605692 Tablet(s) PO TAKE 1 TABLET DAILY 08/18/2012 09/20/2013 In active Nexium 40 mg capsule ,delayed release RxNorm: 481043 Capsule(s) PO TAKE 1 CAPSULE DAILY 08/18/2012 11/02/2012 Inactive furosemide 40 mg tablet RxNorm: 756337 Tablet(s) PO TAKE 1 TABLET DAILY 08/18/2012 09/20/2013 In active Klor-Con 10 mEq tabl et,extended release RxNorm: 806445 Tablet(s) PO TAKE 1 T ABLET DAILY 08/18/2012 12/01/2013 Inactive Xanax 0.5 mg tablet RxNorm: 277418 1 Tablet(s) PO Q6 PRN 07/17/2012 10/13/2015 Inactive Zithromax 250 mg tablet RxNorm: 026858 Tablet(s) PO 07/14/2012 11/10/2013 Inactive disp one z ankit fluticasone 50 mcg/a ctuation Nasal [place], Susp RxNorm: 4944564 1 [place] NASAL BID 06/27/2012 10/07/2012 In active Anusol-HC 25 mg Supp ository RxNorm: 8393954 1 Suppository RTL QD AY PRN 06/09/2012 01/04/2013 In active daily x 3 days then prnno longer than 10 days in row use Claritin-D 12 Hour 5 mg-120 mg tablet,extended release RxNorm: 8490098 1 Tablet(s) PO BID 05/22/2012 05/22/2012 Inactive TAKE 1 TABLET BY MOUTH TWICE DAILY Claritin-D 12 Hour 5 mg-120 mg tablet,extended release RxNorm: 0169411 Tablet(s) PO 05/12/2012 05/21/2012 In active TAKE 1 TABLET BY MOUTH TWICE DAILY fluticasone 50 mcg/a ctuation Nasal [place], Susp RxNorm: 2625265 1 [place] NASAL BID 05/06/2012 06/26/2012 In active Rocephin 500 mg Solu tion for Injection RxNorm: 837383 Inj 02/1102/12/2012 Inactive metronidazole 500 mg Tab RxNorm: 342032 1 Tablet(s) PO TID 02/12/2012 02/18/2012 Inactive Kenalog 40 mg/mL [place] p for Injection RxNorm: 7061694 Milliliter(s) Inj 02/12/2012 02/12/2012 In active fluticasone 50 mcg/a ctuation Nasal [place], Susp RxNorm: 1002843 1 [place] NASAL BID 02/12/2012 05/05/2012 In active cefdinir 300 mg Cap RxNorm: 831639 1 Capsule(s) PO BID 02/12/2012 02/21/2012 Inactive Effexor XR 150 mg ca psule,extended release RxNorm: 849077 1 Capsule(s) PO daily 12/17/2011 12/10/2012 In active metformin ER 500 mg tablet,extended release 24 hr RxNorm: 262334 2 Tablet(s) PO BID 12/17/2011 05/14/2012 In active pilocarpine 5 mg tablet RxNorm: 8785609 4 Tablet(s) PO daily 12/17/2011 03/15/2012 Inactive Singulair 10 mg Tab RxNorm: 070054 1 Tablet(s) PO daily 11/27/2011 08/19/2012 Inactive Nexium 40 mg capsule ,delayed release RxNorm: 349842 1 Capsule(s) PO daily 11/26/2011 03/24/2012 In active Claritin-D 12 Hour 5 mg-120 mg tablet,extended release RxNorm: 5227119 1 Tablet(s) PO BID 11/14/2011 05/11/2012 Inactive Claritin-D 12 Hour 5 mg-120 mg Tab RxNorm: 8945522 1 Tablet(s) PO BID 10/31/2011 11/13/2011 In active Claritin-D 12 Hour 5 mg-120 mg Tab RxNorm: 1407242 1 Tablet(s) PO BID 10/29/2011 2011 In active Claritin-D 12 Hour 5 mg-120 mg Tab RxNorm: 6506233 1 Tablet(s) PO BID 10/29/2011 10/30/2011 In active Claritin-D 24 Hour 1 0 mg-240 mg Tab RxNorm: 7612961 1 Tablet(s) PO daily 10/23/2011 2011 In active levofloxacin 500 mg Tab RxNorm: 367653 1 Tablet(s) PO daily 08/28/2011 09/03/2011 Inactive Nasonex 50 mcg/actua tion [place] RxNorm: 751786 1 [place] NASAL BID 08/28/2011 11/25/2011 Inactive promethazine 25 mg/m L Injection RxNorm: 817179 1 Milliliter(s) Inj 08/23/2011 07/14/2013 Inactive glyburide 2.5 mg tablet RxNorm: 180968 1 Tablet(s) PO daily 08/23/2011 04/08/2013 Inactive Rocephin 500 mg Solu tion for Injection RxNorm: 283460 1 Milliliter(s) Inj 08/23/2011 08/28/2011 In active Klor-Con 10 10 mEq t ablet,extended release RxNorm: 962826 1 Tablet(s) PO daily 08/06/2011 07/30/2012 In active Nexium 40 mg Capsule , delayed release RxNorm: 796560 1 Capsule(s) PO daily 08/06/2011 11/25/2011 In active furosemide 40 mg tablet RxNorm: 247540 1 Tablet(s) PO daily 08/06/2011 07/30/2012 Inactive Cymbalta 30 mg Cap RxNorm: 839991 1 Capsule(s) PO daily 07/26/2011 08/28/2011 Inactive Synthroid 50 mcg tablet RxNorm: 115201 Tablet(s) PO 06/21/2011 08/17/2012 Inactive TAKE 1 TABLET DAILY Neurontin 100 mg Cap RxNorm: 407594 2 Capsule(s) PO TID 06/19/2011 08/28/2011 Inactive ciprofloxacin 500 mg Tab RxNorm: 667694 1 Tablet(s) PO BID 06/19/2011 08/28/2011 Inactive Neurontin 100 mg Cap RxNorm: 565872 1 Capsule(s) PO QID 06/05/2011 06/18/2011 Inactive oxazepam 10 mg Cap RxNorm: 089495 1 Capsule(s) PO Q6 PRN 06/05/2011 10/02/2011 Inactive Influenza Virus Vacc ine 0.5 mL RxNorm: IM 06/05/2011 06/05/2011 Inactive EnteraGam 5 gram ora l powder packet RxNorm: 1 PO daily No S tart Date Active hydrocodone-acetamin ophen 5 mg-500 mg Tab RxNorm: 358149 1 Tablet(s) PO Q6 PRN No Start Date Active Centrum Ultra Women' s 18 mg-400 mcg Tab RxNorm: 1 Tablet(s) PO daily No Start Date Active Fish Oil 1,000 mg Cap RxNorm: 2 Capsule(s) PO BID No Start Date Active Zenpep 40,000-136,00 0-218,000 unit capsule,delayed release RxNorm: 9656617 1 Capsule(s) PO QID No Start Date Active mesalamine 4 gram/60 mL enema RxNorm: 137210 1 Milliliter(s) RTL d aily No Start Date Active Linzess 290 mcg capsule RxNorm: 1295387 1 Capsule(s) PO daily No Start Date Active aspirin 81 mg Cap, D elayed Release RxNorm: 881591 1 Capsule(s) PO daily No Start Date Active Vitamin B-12 1,000 m cg Tab RxNorm: 449073 2 Tablet(s) PO daily No Start Date Active Vitamin C With Darlyn Hips 1,000 mg Tab RxNorm: 482950 1 Tablet(s) PO daily No Start Date Active Lipitor 10 mg Tab RxNorm: 353616 1 Tablet(s) PO HS No Start Date 04/10/2011 Inactive Lipitor 20 mg Tab RxNorm: 156060 1 Tablet(s) PO HS No Start Date 08/28/2011 Inactive Zithromax 250 mg tablet RxNorm: 472035 Tablet(s) PO No Start Date 07/13/2012 Inactive disp one z ankit Effexor XR 150 mg 24 hr Cap RxNorm: 415192 1 Capsule(s) PO daily No Start Date 12/16/2011 Inactive Bydureon 2 mg/0.65 m L subcutaneous pen injector RxNorm: 5331097 Milliliter(s) SQ QW No Start Date 10/13/2015 Inactive furosemide 40 mg Tab RxNorm: 918453 1 Tablet(s) PO daily No Start Date 08/05/2011 Inactive Synthroid 25 mcg tablet RxNorm: 198084 1 Tablet(s) PO daily No Start Date 12/01/2013 Inactive Januvia 50 mg tablet RxNorm: 400798 1 Tablet(s) PO daily samples No Start Date 04/27/2013 Inactive Lipitor 10 mg tablet RxNorm: 020224 1 Tablet(s) PO daily No Start Date 03/16/2013 Inactive Crestor 10 mg tablet RxNorm: 679664 1 Tablet(s) PO QHS No Start Date 03/25/2016 Inactive Asacol HD 800 mg Tab RxNorm: 090156 2 Tablet(s) PO daily No Start Date 10/13/2015 Inactive pilocarpine 5 mg Tab RxNorm: 2817818 4 Tablet(s) PO daily No Start Date 12/16/2011 Inactive glyburide 2.5 mg Tab RxNorm: 555248 1 Tablet(s) PO BID No Start Date 08/22/2011 Inactive Claritin-D 24 Hour 1 0 mg-240 mg Tab RxNorm: 9690182 1 Tablet(s) PO daily No Start Date 10/22/2011 Inactive Vitamin D 1,000 unit Tab RxNorm: 614620 1 Tablet(s) PO daily No Start Date 10/13/2015 Inactive Tricor 145 mg Tab RxNorm: 255916 1 Tablet(s) PO daily No Start Date 10/14/2015 Inactive Zithromax Z-Ankit 250 mg tablet RxNorm: 180489 1 Tablet(s) PO UD No Start Date 11/06/2016 Inactive Synthroid 25 mcg tablet RxNorm: 779458 1 Tablet(s) PO daily No Start Date 05/01/2017 Inactive Claritin-D 12 Hour 5 mg-120 mg tablet,extended release RxNorm: 1166619 1 Tablet(s) PO BID No Start Date 12/23/2013 Inactive Singulair 10 mg Tab RxNorm: 897334 1 Tablet(s) PO daily No Start Date 11/26/2011 Inactive Calcium 600 + D(3) 6 00 mg (1,500)-200 unit Tab RxNorm: 562711 1 Tablet(s) PO daily No Start Date 10/13/2015 Inactive Lialda 1.2 gram tabl et,delayed release RxNorm: 816850 2 Tablet(s) PO daily No Start Date 09/17/2016 Inactive Effexor XR 150 mg 24 hr Cap RxNorm: 906802 1 Capsule(s) PO daily No Start Date 08/28/2011 Inactive aspirin 325 mg Tab RxNorm: 225919 1 Tablet(s) PO daily No Start Date 08/28/2011 Inactive Toprol XL 25 mg tabl et,extended release RxNorm: 382325 1 Tablet(s) PO daily No Start Date 06/11/2013 Inactive lisinopril 10 mg tablet RxNorm: 358391 1 Tablet(s) PO daily No Start Date 01/25/2013 Inactive Cymbalta 60 mg Cap RxNorm: 975379 1 Capsule(s) PO daily No Start Date 08/28/2011 Inactive Nexium 40 mg Cap RxNorm: 510710 1 Capsule(s) PO daily No Start Date 08/05/2011 Inactive dicyclomine 10 mg Cap RxNorm: 694417 1 Capsule(s) PO daily No Start Date 07/13/2013 Inactive Synthroid 50 mcg Tab RxNorm: 579386 1 Tablet(s) PO daily No Start Date 06/20/2011 Inactive metformin ER 500 mg 24 hr Tab RxNorm: 109846 2 Tablet(s) PO BID No Start Date 12/16/2011 Inactive Anusol-HC 25 mg Supp ository RxNorm: 7934810 1 Suppository RTL No Start Date 06/08/2012 Inactive daily x 3 days then prnno longer than 10 days in row use Medication Administered Medication Codes Instruc tions Start Date Status Influenza Virus Vaccine 0.5 mL RxNorm: 04/27/2013 No longer Active Rocephin 500 mg Solution for Injection RxNorm: 492939 02/12/2012 No longer A ctive Kenalog 40 mg/mL Susp for Injection RxNorm: 5095747 Milliliter 02/12/2012 No longer Active Influenza Virus [...] Visit Reason For Visit Effective Dates Notes diabetes mellitus 04/01/2018 diabetes mellitus 11/25/2017 diabetes mellitus 09/18/2017 diabetes mellitus 05/02/2017 oral pain 03/29/2017 shortness of breath 11/15/2016 shortness of breath 11/06/2016 diabetes mellitus 08/01/2016 diabetes mellitus 07/02/2016 diabetes mellitus 06/04/2016 bleeding from the rectum hypertension 03/26/2016 bleeding from the rectum hypertension 11/23/2015 diabetes mellitus 10/14/2015 diabetes mellitus 03/31/2015 stiff neck diabetes mellitus 08/31/2014 stiff neck diabetes mellitus 08/10/2014 [facility] to get Mag Citrate, [...] Code Item Item Code Result Date %Hba1C Xke193 % HbA1c 91170-8 6.6 % 04/01/2018 %Hba1C Cmn425 Gluc Ave 143 mg/dL 04/01/2018 Lipid Ord30 CHOL 178 mg/dL 04/01/2018 Lipid Ord30 HDL 50.0 mg/dl 04/01/2018 Lipid Ord30 TRIG 221 mg/dL 04/01/2018 Lipid Ord30 LDL 84 mg/dL 04/01/2018 Lipid Ord30 C/HDL 3.6 Ratio 04/01/2018 %Hba1C Otb477 % HbA1c 70253-7 6.7 % 11/25/2017 %Hba1C Mny944 Gluc Ave 146 mg/dL 11/25/2017 Comp Metabolic Eva864 NA 144 mEq/L 04/30/2017 Comp Metabolic Yvt682 K 4.3 mEq/L 04/30/2017 Comp Metabolic Qdl320 CL 105 mEq/L 04/30/2017 Comp Metabolic Ots876 CO2 29.0 mEq/L 04/30/2017 Comp Metabolic Vti179 AN ION GAP 14 04/30/2017 Comp Metabolic Ier085 GL UCOSE 109 mg/dL 04/30/2017 Comp Metabolic Qgz773 Cr eat 1.0 mg/dL 04/30/2017 Comp Metabolic Nvd094 eG FR 58 ml/min/1.73m2 04/30 Comp Metabolic Xzf911 BUN 17 mg/dL 04/30/2017 Comp Metabolic Apq594 B/ C Ratio 17.3 Ratio 04/30/2017 Comp Metabolic Htj474 CA LCIUM 10.1 mg/dL 04/30/2017 Comp Metabolic Icv719 AL K PHOS 47 U/L 04/30/2017 Comp Metabolic Jgc717 T(SGOT) 16 U/L 04/30/2017 Comp Metabolic Tww548 AL T(SGPT) 16 U/L 04/30/2017 Comp Metabolic Vyv529 BI LI T 0.4 mg/dL 04/30/2017 Comp Metabolic Syv889 AL BUMIN 4.5 g/dL 04/30/2017 Comp Metabolic Gkj545 TP RO 6.7 g/dL 04/30/2017 Comp Metabolic Fmh035 GL OB 2.2 g/dL 04/30/2017 Comp Metabolic Yge516 A/ G Ratio 2.0 Ratio 04/30/2017 Comp Metabolic Qdr584 Os mo 289 mOsmo 04/30/2017 Cbc With [...] 86.3 fl 04/30/2017 Cbc With Differential Ord2 Elliott% 6.5 % 04/30/2017 Cbc With Differential Ord2 MCH 28.2 pg 04/30/2017 Cbc With Differential Ord2 MCHC 32.7 pg 04/30/2017 Cbc With Differential Ord2 Eos% 1.6 % 04/30/2017 Cbc With Differential Ord2 PLT 289 K/ul 04/30/2017 Cbc With Differential Ord2 Baso% 0.8 % 04/30/2017 Cbc With Differential Ord2 Neut ABS# 2.23 K/ul 04/30/2017 Cbc With Differential Ord2 RDW 15.2 % 04/30/2017 Cbc With Differential Ord2 Lymph ABS# 1.12 K/ul 04/30/2017 Cbc With Differential Ord2 Elliott ABS# 0.2 K/ul 04/30/2017 Cbc With Differential Ord2 Eos ABS# 0.1 K/ul 04/30/2017 Cbc With Differential Ord2 Baso ABS# 0.0 K/ul 04/30/2017 %Hba1C Oxo331 % HbA1c 90993-8 6.7 % 04/30/2017 %Hba1C Mxb807 Gluc Ave 146 mg/dL 04/30/2017 Tsh Ord6 hTSH II 1.36 uIU/mL 04/30/2017 Lipid Ord30 CHOL 160 mg/dL 04/30/2017 Lipid Ord30 HDL 51.0 mg/dl 04/30/2017 Lipid Ord30 TRIG 195 mg/dL 04/30/2017 Lipid Ord30 LDL 70 mg/dL 04/30/2017 Lipid Ord30 C/HDL 3.1 Ratio 04/30/2017 Free T4 Rzz922 FREE T4 0.75 ng/dL 04/30/2017 Ferritin Ord22 FERRITIN 89.9 ng/mL 11/09/2016 Parathyroid Hormone Vdk634 PTH 36.20 pg/ml 11/09/2016 Tibc Ord40 Iron 75 ug/dl 11/08/2016 Tibc Ord40 UIBC 325 ug/dL 11/08/2016 Tibc Ord40 TIBC 400 ug/dL 11/08/2016 Tibc Ord40 Fe-%Sat 18.8 % 11/08/2016 Comp Metabolic Spn927 NA 139 mEq/L 09/25/2016 Comp Metabolic Wrp082 K 4.3 mEq/L 09/25/2016 Comp Metabolic Tow713 CL 101 mEq/L 09/25/2016 Comp Metabolic Tbi646 CO2 31.0 mEq/L 09/25/2016 Comp Metabolic Qua262 AN ION GAP 11 09/25/2016 Comp Metabolic Dkf012 GL UCOSE 116 mg/dL 09/25/2016 Comp Metabolic Hml498 Cr eat 1.1 mg/dL 09/25/2016 Comp Metabolic Uqg356 eG FR 53 ml/min/1.73m2 09/25 Comp Metabolic Bxf916 BUN 22 mg/dL 09/25/2016 Comp Metabolic Kia888 B/ C Ratio 20.8 Ratio 09/25/2016 Comp Metabolic Rxn162 CA LCIUM 10.3 mg/dL 09/25/2016 Comp Metabolic Jke600 AL K PHOS 52 U/L 09/25/2016 Comp Metabolic Qqq956 T(SGOT) 16 U/L 09/25/2016 Comp Metabolic Rob548 AL T(SGPT) 17 U/L 09/25/2016 Comp Metabolic Wrj576 BI LI T 0.3 mg/dL 09/25/2016 Comp Metabolic Kmz353 AL BUMIN 4.7 g/dL 09/25/2016 Comp Metabolic Wxy663 TP RO 6.9 g/dL 09/25/2016 Comp Metabolic Tuq898 GL OB 2.2 g/dL 09/25/2016 Comp Metabolic Rhd110 A/ G Ratio 2.1 Ratio 09/25/2016 Comp Metabolic Tuw523 Os mo 282 mOsmo 09/25/2016 Lipid Ord30 CHOL 182 mg/dL 09/25/2016 Lipid Ord30 HDL 55.0 mg/dl 09/25/2016 Lipid Ord30 TRIG 168 mg/dL 09/25/2016 Lipid Ord30 LDL 93 mg/dL 09/25/2016 Lipid Ord30 C/HDL 3.3 Ratio 09/25/2016 %Hba1C Rzl378 % HbA1c 22492-1 7.0 % 09/25/2016 %Hba1C Zrh002 Gluc Ave 154 mg/dL 09/25/2016 Free T4 Vfo407 FREE T4 0.80 ng/dL 09/25/2016 Cbc With [...] 85.3 fl 09/25/2016 Cbc With Differential Ord2 Elliott% 8.2 % 09/25/2016 Cbc With Differential Ord2 MCH 28.3 pg 09/25/2016 Cbc With Differential Ord2 Eos% [...] 1.29 K/ul 09/25/2016 Cbc With Differential Ord2 Elliott ABS# 0.3 K/ul 09/25/2016 Cbc With Differential Ord2 Eos ABS# 0.0 K/ul 09/25/2016 Cbc With Differential Ord2 Baso ABS# 0.0 K/ul 09/25/2016 Tsh Ord6 hTSH II 1.01 uIU/mL 09/25/2016 Tsh Ord6 hTSH II 1.35 uIU/mL 06/04/2016 Comp Metabolic Bzf335 NA 135 mEq/L 06/04/2016 Comp Metabolic Bva060 K 3.8 mEq/L 06/04/2016 Comp Metabolic Biq520 CL 99 mEq/L 06/04/2016 Comp Metabolic Kkc299 CO2 30.0 mEq/L 06/04/2016 Comp Metabolic Zxi341 AN ION GAP 10 06/04/2016 Comp Metabolic Jqa703 GL UCOSE 171 mg/dL 06/04/2016 Comp Metabolic Nje605 Cr eat 1.0 mg/dL 06/04/2016 Comp Metabolic Acx255 eG FR 59 ml/min/1.73m2 06/04 Comp Metabolic Gxi945 BUN 22 mg/dL 06/04/2016 Comp Metabolic Tsx185 B/ C Ratio 22.4 Ratio 06/04/2016 Comp Metabolic Ksd552 CA LCIUM 10.4 mg/dL 06/04/2016 Comp Metabolic Fne347 AL K PHOS 68 U/L 06/04/2016 Comp Metabolic Kxz310 T(SGOT) 22 U/L 06/04/2016 Comp Metabolic Pzf319 AL T(SGPT) 25 U/L 06/04/2016 Comp Metabolic Glg998 BI LI T 0.4 mg/dL 06/04/2016 Comp Metabolic Zag920 AL BUMIN 4.5 g/dL 06/04/2016 Comp Metabolic Zup888 TP RO 7.0 g/dL 06/04/2016 Comp Metabolic Uso143 GL OB 2.5 g/dL 06/04/2016 Comp Metabolic Cgu173 A/ G Ratio 1.8 Ratio 06/04/2016 Comp Metabolic Hsx772 Os mo 277 mOsmo 06/04/2016 Cbc With [...] 29.1 pg 06/04/2016 Cbc With Differential Ord2 Elliott% 7.9 % 06/04/2016 Cbc With Differential Ord2 [...] 1.58 K/ul 06/04/2016 Cbc With Differential Ord2 Elliott ABS# 0.5 K/ul 06/04/2016 Cbc With Differential Ord2 Eos ABS# 0.1 K/ul 06/04/2016 Cbc With Differential Ord2 Baso ABS# 0.1 K/ul 06/04/2016 %Hba1C Yjs652 % HbA1c 02464-4 8.7 % 06/04/2016 %Hba1C Rwy026 Gluc Ave 203 mg/dL 06/04/2016 Free T4 Ztx616 FREE T4 0.84 ng/dL 06/04/2016 Lipid Ord30 CHOL 111 mg/dL 06/04/2016 Lipid Ord30 HDL 51.0 mg/dl 06/04/2016 Lipid Ord30 TRIG 185 mg/dL 06/04/2016 Lipid Ord30 LDL 23 mg/dL 06/04/2016 Lipid Ord30 C/HDL 2.2 Ratio 06/04/2016 Microalbumin Iqn299 Micr oAlb <0.7 mg/dL 06/04/2016 Comp Metabolic Rhb651 NA 142 mEq/L 03/12/2016 Comp Metabolic Ary388 K 4.1 mEq/L 03/12/2016 Comp Metabolic Ihb461 CL 103 mEq/L 03/12/2016 Comp Metabolic Xvb561 CO2 30.0 mEq/L 03/12/2016 Comp Metabolic Lwj107 AN ION GAP 13 03/12/2016 Comp Metabolic Wnk378 GL UCOSE 138 mg/dL 03/12/2016 Comp Metabolic Gnn520 Cr eat 0.8 mg/dL 03/12/2016 Comp Metabolic Ufe706 eG FR 75 ml/min/1.73m2 03/12 Comp Metabolic Pef484 BUN 18 mg/dL 03/12/2016 Comp Metabolic Ibq054 B/ C Ratio 22.8 Ratio 03/12/2016 Comp Metabolic Mvn437 CA LCIUM 9.8 mg/dL 03/12/2016 Comp Metabolic Slj964 AL K PHOS 83 U/L 03/12/2016 Comp Metabolic Yya617 T(SGOT) 15 U/L 03/12/2016 Comp Metabolic Qhr401 AL T(SGPT) 20 U/L 03/12/2016 Comp Metabolic Gfm151 BI LI T 0.4 mg/dL 03/12/2016 Comp Metabolic Gza329 AL BUMIN 4.2 g/dL 03/12/2016 Comp Metabolic Mbb892 TP RO 6.4 g/dL 03/12/2016 Comp Metabolic Wbr647 GL OB 2.2 g/dL 03/12/2016 Comp Metabolic Jgv517 A/ G Ratio 1.9 Ratio 03/12/2016 Comp Metabolic Lzu804 Os mo 287 mOsmo 03/12/2016 %Hba1C Cyu576 % HbA1c 98236-7 7.2 % 03/12/2016 %Hba1C Fqm242 Gluc Ave 160 mg/dL 03/12/2016 Comp Metabolic Jon772 NA 138 mEq/L 10/18/2015 Comp Metabolic Kau116 K 4.1 mEq/L 10/18/2015 Comp Metabolic Nay158 CL 97 mEq/L 10/18/2015 Comp Metabolic Vjb354 CO2 32.0 mEq/L 10/18/2015 Comp Metabolic Cnt515 AN ION GAP 13 10/18/2015 Comp Metabolic Xqt491 GL UCOSE 145 mg/dL 10/18/2015 Comp Metabolic Lbj323 Cr eat 1.1 mg/dL 10/18/2015 Comp Metabolic Xdm960 eG FR 50 ml/min/1.73m2 10/17 Comp Metabolic Beg336 BUN 23 mg/dL 10/18/2015 Comp Metabolic Pvv040 B/ C Ratio 20.4 Ratio 10/18/2015 Comp Metabolic Kjd892 CA LCIUM 10.3 mg/dL 10/18/2015 Comp Metabolic Rhc686 AL K PHOS 59 U/L 10/18/2015 Comp Metabolic Uou462 T(SGOT) 17 U/L 10/18/2015 Comp Metabolic Ikt570 AL T(SGPT) 21 U/L 10/18/2015 Comp Metabolic Iun674 BI LI T 0.4 mg/dL 10/18/2015 Comp Metabolic Pak006 AL BUMIN 4.6 g/dL 10/18/2015 Comp Metabolic Aav184 TP RO 7.1 g/dL 10/18/2015 Comp Metabolic Zoj022 GL OB 2.5 g/dL 10/18/2015 Comp Metabolic Dlq345 A/ G Ratio 1.9 Ratio 10/18/2015 Comp Metabolic Nzv951 Os mo 282 mOsmo 10/18/2015 Tsh Ord6 hTSH II 1.81 uIU/mL 10/18/2015 %Hba1C Nti382 % HbA1c 33421-9 7.3 % 10/18/2015 %Hba1C Aux545 Gluc Ave 163 mg/dL 10/18/2015 Iron Ord72 Iron 90 ug/dl 10/18/2015 Free T4 Npt277 FREE T4 0.75 ng/dL 10/18/2015 Cbc With Differential Ord2 WBC 7.37 K/ul 10/18/2015 Cbc With Differential Ord2 RBC 4.59 M/ul 10/18/2015 Cbc With Differential Ord2 HGB 13.3 g/dl 10/18/2015 Cbc With Differential Ord2 HCT 40.6 % 10/18/2015 Cbc With Differential Ord2 Neut% 63.3 % 10/18/2015 Cbc With Differential Ord2 Lymph% 26.2 % 10/18/2015 Cbc With Differential Ord2 MCV 88.5 fl 10/18/2015 Cbc With Differential Ord2 Elliott% 6.8 % 10/18/2015 Cbc With Differential Ord2 [...] 1.93 K/ul 10/18/2015 Cbc With Differential Ord2 Elliott ABS# 0.5 K/ul 10/18/2015 Cbc With Differential [...] Lipid Ord30 C/HDL 2.3 Ratio 10/18/2015 TSH 1349775 TSH 1.042 uIU/ML 12/24/2012 A1C HPLC 2044623 A1C HPLC 91207-3 7.6 % 12/24/2012 ESR 3615366 ESR 2 MM/HR 12/23/2012 CHEM 14 4151206 AST 20 U/L 12/23/2012 CHEM 14 20280221 ALT 24 IU/L 12/23/2012 CHEM 14 20280221 BUN 16 MG/DL 12/23/2012 CHEM 14 8283376 ALBUMIN 4.7 GM/DL 12/23/2012 CHEM 14 7977880 CHLORIDE 102 MMOL/L 12/23/2012 CHEM 14 0604929 BILI TOT 0.3 MG/DL 12/23/2012 CHEM 14 0308304 ALK PHOS 109 U/L 12/23/2012 CHEM 14 1200265 SODIUM 142 MMOL/L 12/23/2012 CHEM 14 2820268 CREATINI NE 0.93 MG/DL 12/23/2012 CHEM 14 3303748 CALCIUM 10.0 MG/DL 12/23/2012 CHEM 14 3487878 POTASSIUM 3.7 MMOL/L 12/23/2012 CHEM 14 8114545 PROT TOT 7.2 GM/DL 12/23/2012 CHEM 14 2770409 GLUCOSE 116 MG/DL 12/23/2012 CHEM 14 7286522 BICARB 32 MMOL/L 12/23/2012 CHEM 14 2181812 ANION GAP 8 MEQ/L 12/23/2012 GFR CALC 5187211 GFR AA >60 ML/MIN 12/23/2012 GFR CALC 3369562 GFR NON -AA 59.0L ML/MIN 3 CBC 3968487 WBC 5.5 10e9/L 12/23/2012 CBC 2073734 RBC 4.90 10e12/L 12/23/2012 CBC 8333345 HGB 14.1 g/dL 12/23/2012 CBC 1496722 HCT DET 42.4 % 12/23/2012 CBC 0795592 MCV 86.5 fL 12/23/2012 CBC 0183771 MCH 28.8 pg 12/23/2012 CBC 6098954 MCHC 33.3 g/dL 12/23/2012 CBC 6078024 PLT 320 10e9/L 12/23/2012 CBC 9592924 MPV 9.9 fL 12/23/2012 CBC 7158567 BRANDIE % 63.7 % 12/23/2012 CBC 2381658 LY % 24.6 % 12/23/2012 CBC 8881024 MON % 6.3 % 12/23/2012 CBC 7684193 EOS % 4.7 % 12/23/2012 CBC 2964163 BASO % 0.7 % 12/23/2012 CBC 4117093 RDW 15.0 % 12/23/2012 CBC 8766067 ABS BRANDIE 3.50 10e9/L 12/23/2012 CBC 3976457 ABS LYMPH 1.35 10e9/L 12/23/2012 CBC 7664198 ABS MONO 0.35 10e9/L 12/23/2012 CBC 8057492 ABS EOS 0.26 10e9/L 12/23/2012 CBC 3020256 ABS BASO 0.04 10e9/L 12/23/2012 CBC 4046327 RDW-SD 47.1 fL 12/23/2012 CRP 20071212 CRP 0.1 MG/DL 12/23/2012 URINALYSIS NONAUTO W/O SCOPE 19139 Specific [place] 1.005 DateTime(Free Text in ) URINALYSIS NONAUTO W/O SCOPE 48927 PH 7.5 DateTime(Free Mina t in ) URINALYSIS NONAUTO W/O SCOPE 20496 GLUCOSE NEG DateTime(Free Mina t in Apr) URINALYSIS NONAUTO W/O SCOPE 39889 Protein NEG DateTime(Free Mina t in ) URINALYSIS NONAUTO W/O SCOPE 59533 Blood NEG DateTime(Free Mina t in ) URINALYSIS NONAUTO W/O SCOPE 72527 Bilirubin NEG DateTime(Free Mina t in ) URINALYSIS NONAUTO W/O SCOPE 44270 Ketones NEG DateTime(Free Mina t in ) URINALYSIS NONAUTO W/O SCOPE 69754 Urobilinogen NEG DateTime(Free Text in Apr) URINALYSIS NONAUTO W/O SCOPE 03465 Nitrite NEG DateTime(Free Mina t in ) URINALYSIS NONAUTO W/O SCOPE 16935 Leukocytes NEG DateTime(Free Text in ) Review of Systems System Result Effective Dates Constitutional No night sweats 04/01/2018 Constitutional No [...] benign 07/14/2013 None Full Exam - General 1996 [...] PRSV 4 VA L 3 YRS+ CPT-4: 64969 05/02/2017 ADMIN INFLUENZA VIRU S VAC CPT-4: G0008 05/02/2017 ADMIN PNEUMOCOCCAL V ACCINE SNOMED CT: 86254531 CPT-4: G0009 05/02/2017 PNEUMOCOCCAL VACC [address]: 97220213 CPT-4: 28245 05/02/2017 FLU VAC NO PRSV 4 VA L 3 YRS+ CPT-4: 33358 05/06/2014 ADMIN PNEUMOCOCCAL V ACCINE SNOMED CT: 76794638 CPT-4: G0009 05/06/2014 PRESCRIP TRANSMIT A ERX SY CPT-4: G8553 06/12/2013 PRESCRIP TRANSMIT A ERX SY CPT-4: G8553 05/20/2013 ADMIN INFLUENZA VIRU S VAC CPT-4: G0008 04/27/2013 FLULAVAL VACC, 3 YRS & >, IM CPT-4: Q2036 04/27/2013 PRESCRIP TRANSMIT A ERX SY CPT-4: G8553 04/09/2013 PRESCRIP TRANSMIT A ERX SY CPT-4: G8553 01/26/2013 ROUTINE VENIPUNCTURE CPT-4: 46965 12/23/2012 PRESCRIP TRANSMIT A ERX SY CPT-4: G8553 06/09/2012 ROCEPHIN, PER 250 MG CPT-4: J0696 02/12/2012 TRIAMCINOLONE ACET I [place] NOS CPT-4: J3301 02/12/2012 PRESCRIP TRANSMIT A ERX SY CPT-4: G8553 02/12/2012 ROCEPHIN, PER 250 MG CPT-4: J0696 02/05/2012 URINALYSIS NONAUTO W /O SCOPE CPT-4: 45718 11/14/2011 REMOVE IMPACTED EAR WAX UNI CPT-4: 13909 08/28/2011 PRESCRIP TRANSMIT A ERX SY CPT-4: G8553 08/28/2011 ROCEPHIN, PER 250 MG CPT-4: J0696 08/23/2011 TRIAMCINOLONE ACET I [place] NOS CPT-4: J3301 08/23/2011 THER/PROPH/DIAG INJ SC/IM CPT-4: 05502 08/23/2011 PRESCRIP TRANSMIT A ERX SY CPT-4: G8553 08/23/2011 OCCULT BLOOD FECES CPT- 4: 51276 06/19/2011 URINALYSIS NONAUTO W /O SCOPE CPT-4: 19152 06/19/2011 PRESCRIP TRANSMIT A ERX SY CPT-4: G8553 06/19/2011 ADMIN INFLUENZA VIRU S VAC CPT-4: G0008 06/05/2011 FLULAVAL VACC, 3 YRS & >, IM CPT-4: Q2036 06/05/2011 Vital Signs Date Vital 04/01/2018 Blood Pressure 1: 120/58 Code: 8480-6 BMI: 29.1 Code: 82172-5 Heart Rate 1: 83 bpm Height: 5'3" Respiratory Rate: 18 bpm SpO2: 95% Weight: 167 lbs 11/25/2017 Blood Pressure 1: 128/58 Code: 8480-6 BMI: 29.8 Code: 99384-4 Heart Rate 1: 83 bpm Height: 5'3" SpO2: 99% Weight: 171 lbs 09/18/2017 Blood Pressure 1: 140/72 Code: 8480-6 BMI: 30.3 Code: 72106-8 Heart Rate 1: 99 bpm Height: 5'3" SpO2: 97% Weight: 174 lbs 05/02/2017 Blood Pressure 1: 122/64 Code: 8480-6 BMI: 29.5 Code: 08355-2 Heart Rate 1: 81 bpm Height: 5'3" SpO2: 97% Weight: 169 lbs 03/29/2017 Blood Pressure 1: 134/68 Code: 8480-6 BMI: 30.0 Code: 29175-3 Heart Rate 1: 89 bpm Height: 5'3" SpO2: 98% Weight: 172 lbs 11/15/2016 Blood Pressure 1: 148/72 Code: 8480-6 BMI: 29.5 Code: 89161-8 Heart Rate 1: 102 bpm Height: 5'3" SpO2: 98% Weight: 169 lbs 11/06/2016 Blood Pressure 1: 140/78 Code: 8480-6 BMI: 29.8 Code: 37025-8 Heart Rate 1: 100 bpm Height: 5'3" SpO2: 97% Weight: 171 lbs 08/01/2016 Blood Pressure 1: 128/56 Code: 8480-6 BMI: 30.3 Code: 98073-1 Heart Rate 1: 88 bpm Height: 5'3" SpO2: 97% Weight: 174 lbs 07/02/2016 Blood Pressure 1: 126/62 Code: 8480-6 BMI: 31.0 Code: 25199-0 Heart Rate 1: 101 bpm Height: 5'3" SpO2: 97% Weight: 178 lbs 06/04/2016 Blood Pressure 1: 136/72 Code: 8480-6 BMI: 31.4 Code: 92668-6 Heart Rate 1: 103 bpm Height: 5'3" SpO2: 98% Weight: 180 lbs 03/26/2016 Blood Pressure 1: 134/74 Code: 8480-6 BMI: 30.7 Code: 44540-0 Heart Rate 1: 93 bpm Height: 5'3" SpO2: 98% Weight: 176 lbs 11/23/2015 Blood Pressure 1: 128/77 Code: 8480-6 BMI: 30.2 Code: 47889-3 Heart Rate 1: 74 bpm Height: 5'3" SpO2: 96% Weight: 173 lbs 10/14/2015 Blood Pressure 1: 122/72 Code: 8480-6 BMI: 30.3 Code: 88242-9 Heart Rate 1: 76 bpm Height: 5'3" SpO2: 97% Weight: 174 lbs 03/31/2015 Blood Pressure 1: 140/68 Code: 8480-6 BMI: 30.0 Code: 69760-0 Heart Rate 1: 93 bpm Height: 5'3" SpO2: 94% Weight: 172 lbs 08/31/2014 Blood Pressure 1: 122/74 Code: 8480-6 BMI: 31.2 Code: 73936-1 Heart Rate 1: 76 bpm Height: 5'3" Weight: 179 lbs 08/10/2014 Blood Pressure 1: 138/62 Code: 8480-6 BMI: 31.0 Code: 87522-0 Heart Rate 1: 80 bpm Height: 5'3" Weight: 178 lbs 05/06/2014 BMI: 31.2 Code: 22159-1 Height: 5'3" Weight: 179 lbs 04/14/2014 Blood Pressure 1: 136/68 Code: 8480-6 BMI: 31.4 Code: 17927-0 Heart Rate 1: 74 bpm Height: 5'3" Weight: 180 lbs 11/10/2013 Blood Pressure 1: 102/50 Code: 8480-6 BMI: 30.7 Code: 08379-6 Heart Rate 1: 76 bpm Height: 5'3" Weight: 176 lbs 07/14/2013 Blood Pressure 1: 136/80 Code: 8480-6 BMI: 30.3 Code: 81745-3 Heart Rate 1: 70 bpm Height: 5'3" Weight: 174 lbs 06/12/2013 Blood Pressure 1: 142/82 Code: 8480-6 BMI: 30.9 Code: 49351-2 Heart Rate 1: 72 bpm Height: 5'3" Weight: 177 lbs 05/20/2013 Blood Pressure 1: 132/70 Code: 8480-6 BMI: 31.2 Code: 31256-8 Heart Rate 1: 88 bpm Height: 5'3" Weight: 179 lbs 04/09/2013 Blood Pressure 1: 136/70 Code: 8480-6 BMI: 31.0 Code: 49059-2 Heart Rate 1: 100 bpm Height: 5'3" Weight: 178 lbs 01/26/2013 Blood Pressure 1: 118/56 Code: 8480-6 BMI: 30.7 Code: 24108-6 Heart Rate 1: 87 bpm Height: 5'3" Weight: 176 lbs 12/23/2012 Blood Pressure 1: 136/76 Code: 8480-6 Heart Rate 1: 104 bpm Respiratory Rate: 20 bpm Weight: 178 lbs 12/15/2012 Blood Pressure 1: 150/82 Code: 8480-6 Heart Rate 1: 100 bpm Temperature: 36.7 (C) / 98.1 (F) Weight: 178 lbs 10/22/2012 Blood Pressure 1: 138/82 Code: 8480-6 BMI: 30.2 Code: 41277-7 Heart Rate 1: 100 bpm Height: 5'3" Weight: 173 lbs 08/21/2012 Blood Pressure 1: 136/70 Code: 8480-6 BMI: 30.6 Code: 48532-5 Heart Rate 1: 98 bpm Height: 5'3" Weight: 175 lbs 8 oz 07/17/2012 Blood Pressure 1: 152/68 Code: 8480-6 BMI: 29.9 Code: 22505-2 Heart Rate 1: 92 bpm Height: 5'3" [...] 1: 122/68 Code: 8480-6 BMI: 29.5 Code: 66314-2 Heart Rate 1: 96 bpm Height: 5'3" [...] 1: 130/72 Code: 8480-6 BMI: 30.4 Code: 58861-3 Heart Rate 1: 92 bpm Height: 5'3" Respiratory Rate: 16 bpm Weight: 174 lbs 8 oz 06/19/2011 Blood Pressure 1: 122/70 Code: 8480-6 BMI: 30.2 Code: 86406-5 Heart Rate 1: 104 bpm Height: 5'3" Weight: 173 lbs 06/05/2011 Blood Pressure 1: 100/50 Code: 8480-6 BMI: 29.6 Code: 79846-1 Heart Rate 1: 96 bpm Height: 5'3" Respiratory Rate: 16 bpm Weight: 170 lbs Functional Status No Functional Status data History of Present Illness Symptom Name Status Resu lt Effective Date Notes diabetes mellitus Onset of Symptom onset as [...] recently started s eeking counseling from her exerciser. depression Pertinent Findings anxiety 08/21/2012 None depression [...] recently started s eeking counseling from her exerciser. depression Pertinent Findings anxiety 07/17/2012 None depression [...] Encounters Encounter Performer Loca tion Codes Date ([id number]) [id number] EST. 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 P ATIENT, LEVEL IV Diagnosis: Type 2 diabetes mellitus with hyperglycemia[ICD10: E11.65] Diagnosis: Essential (primary) hypertension[ICD10: I10] Amy Cheung MD, LL C CPT-4: 97544 11/25/2017 ([id number]) 25539 EST. P ATIENT, LEVEL IV Diagnosis: Type 2 diabetes mell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[ICD10: E11.9] Diagnosis: Mixed hyperlipidemia[ICD10: E78.2] Diagnosis: Candidal stomatitis[ICD10: B37.0] Amy Cheung MD, [facility] CPT-4: 85744 09/18/2017 ([id number]) 16267 EST. P ATIENT, LEVEL IV Diagnosis: Type 2 diabetes mell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[ICD10: E11.9] Diagnosis: Mixed hyperlipidemia[ICD10: E78.2] Diagnosis: Essential (primary) hypertension[ICD10: I10] Diagnosis: Encounter for immunization[ICD10: Z23] Amy Cheung MD, [facility] CPT-4: 10163 05/02/2017 ([id number]) 48660 EST. P ATIENT, LEVEL III Diagnosis: Candidal stomatitis[ICD10: B37.0] Riya Cheung MD, [facility] CPT- 4: 56639 03/29/2017 ([id number]) 20544 EST. P ATIENT, LEVEL IV Diagnosis: Essential (primary) hypertension[ICD10: I10] Diagnosis: Type 2 diabetes mell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[ICD10: E11.9] Amy Cheung MD, [facility] CPT-4: 97430 11/15/2016 [id number] EST. PATIENT, LEVEL III Diagnosis: Other malaise[ICD10: R53.81] Diagnosis: Other fatigue[ICD10: R53.83] Diagnosis: Type 2 diabetes mellitus with hyperglycemia[ICD10: E11.65] Diagnosis: Essential (primary) hypertension[ICD10: I10] Diagnosis: Weakness[ICD10: R53.1] Mariana Cheung MD, [facility] CPT-4: 75721 11/06/2016 ([id number]) 30244 EST. P ATIENT, LEVEL III Diagnosis: Type 2 diabetes mellitus with hyperglycemia[ICD10: E11.65] Amy Cheung MD, [facility] CPT-4: 94683 08/01/2016 ([id number]) 07055 EST. P ATIENT, LEVEL III Diagnosis: Type 2 diabetes mellitus with hyperglycemia[ICD10: E11.65] Diagnosis: Gastroparesis[ICD10: K31.84] Amy Cheung MD, [facility] CPT-4: 63994 07/02/2016 ([id number]) 30726 EST. P ATIENT, LEVEL IV Diagnosis: Type 2 diabetes mellitus with hyperglycemia[ICD10: E11.65] Diagnosis: Hypothyroidism, unspecified[ICD10: E03.9] Amy Cheung MD, C CPT-4: 38993 06/04/2016 ([id number]) 10005 EST. P ATIENT, LEVEL IV Diagnosis: Type 2 diabetes mellitus with hyperglycemia[ICD10: E11.65] Diagnosis: Mixed hyperlipidemia[ICD10: E78.2] Diagnosis: Essential (primary) hypertension[ICD10: I10] Amy Cheung MD, C CPT-4: 95519 03/26/2016 ([id number]) 98886 EST. P ATIENT, LEVEL III Diagnosis: Essential (primary) hypertension[ICD10: I10] Diagnosis: Adjustment disorder with mixed anxiety and depressed mood[ICD10: F43.23] Amy Cheung MD, [facility] CPT-4: 56548 11/23/2015 ([id number]) 69635 EST. P ATIENT, LEVEL IV Diagnosis: Type 2 diabetes mellitus with hyperglycemia[ICD10: E11.65] Diagnosis: Panic disorder [episodic paroxysmal anxiety] without agoraphobia[ICD10: F41.0] Diagnosis: Adjustment disorder with mixed anxiety and depressed mood[ICD10: F43.23] Diagnosis: Essential (primary) hypertension[ICD10: I10] Amy Cheung MD, [facility] CPT-4: 69035 10/14/2015 ([id number]) 38336 EST. P ATIENT, LEVEL IV Diagnosis: DIABETES TYPE II[ICD9: 250.00] Diagnosis: GENERALIZED ANXIETY DISEASE[ICD9: 300.02] Diagnosis: ESSENTIAL HYPERTENSION[ICD9: 401.9] Diagnosis: ESOPHAGEAL REFLUX[ICD9: 530.81] Amy Cheung MD, [facility] CPT-4: 46515 03/31/2015 ([id number]) 75455 EST. 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 P ATIENT, LEVEL IV Diagnosis: ESSENTIAL HYPERTENSION[ICD9: 401.9] Diagnosis: DIABETES TYPE II[ICD9: 250.00] Diagnosis: Constipation - functional[ICD9: 564.09] Diagnosis: Abdominal pain[ICD9: 789.00] Amy Cheung MD, [facility] CPT-4: 83908 08/10/2014 ([id number]) 55779 EST. P ATIENT, LEVEL III Diagnosis: Flu vaccine need[ICD9: V04.81] Diagnosis: Neck pain[ICD9: 723.1] Diagnosis: Chronic allergic rhinitis[ICD9: 477.9] Amy Cheung MD, [facility] CPT-4: 22695 05/06/2014 ([id number]) 61775 EST. 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 P ATIENT, LEVEL IV Diagnosis: ESSENTIAL HYPERTENSION[SNOMED: 34429150] Diagnosis: DIABETES TYPE II[SNOMED: 861805492] Diagnosis: Iliotibial band syndrome[ICD9: 728.89] Diagnosis: DEPRESSIVE DISORDER NEC[ICD9: 311] Diagnosis: GENERALIZED ANXIETY DISEASE[ICD9: 300.02] Amy Cheung MD, [facility] CPT-4: 60990 11/10/2013 ([id number]) 51848 EST. P ATIENT, LEVEL III Diagnosis: DIABETES TYPE II[SNOMED: 225485563] Amy Cheung MD, [facility] CPT- 4: 41023 07/14/2013 ([id number]) 18943 EST. P ATIENT, LEVEL IV Diagnosis: ESSENTIAL HYPERTENSION[SNOMED: 87015172] Diagnosis: DM W/O COMPLICATION TYPE II, UNCONTROLLED[SNOMED: 04429972] Amy Cheung MD, [facility] CPT-4: 92311 06/12/2013 ([id number]) 65819 EST. P ATIENT, LEVEL III Diagnosis: DIABETES TYPE II[SNOMED: 963240092] Amy Cheung MD, [facility] CPT- 4: 10348 05/20/2013 ([id number]) 50325 EST. P ATIENT, LEVEL IV Diagnosis: ESSENTIAL HYPERTENSION[SNOMED: 33691435] Diagnosis: HYPERLIPIDEMIA[ICD9: 272.4] Diagnosis: Type II diabetes mellitus, uncontrolled[SNOMED: 28103753] Amy Cheung MD [facility] CPT-4: 17644 04/09/2013 ([id number]) 59841 EST. P ATIENT, LEVEL III Diagnosis: ESSENTIAL HYPERTENSION[SNOMED: 52805212] Diagnosis: ENCNTR LONG-RX USE NEC[ICD9: V58.69] Diagnosis: IMPACTED CERUMEN[ICD9: 380.4] Amy Cheung MD, [facility] CPT-4: 98636 01/26/2013 ([id number]) 53965 EST. P ATIENT, LEVEL IV Diagnosis: DIABETES TYPE II[SNOMED: 098043030] Diagnosis: ESSENTIAL HYPERTENSION[SNOMED: 80168572] Diagnosis: Polymyalgia[ICD9: 725] Amy Cheung MD, [facility] CPT-4: 93667 12/23/2012 ([id number]) 58587 EST. P ATIENT, LEVEL III Diagnosis: ACUTE MAXILLARY SINUSITIS[ICD9: 461.0] Diagnosis: COUGH[ICD9: 786.2] Amy Cheung MD, [facility] CPT-4: 46101 12/15/2012 ([id number]) 02065 EST. P ATIENT, LEVEL III Diagnosis: ANAL OR RECTAL PAIN[ICD9: 569.42] Diagnosis: Bruising[ICD9: 924.9] Diagnosis: Hip pain[ICD9: 719.45] Amy Cheung MD, [facility] CPT-4: 30096 10/22/2012 ([id number]) 12685 EST. P ATIENT, LEVEL IV Diagnosis: ESSENTIAL HYPERTENSION[SNOMED: 32916036] Diagnosis: DIABETES TYPE II[SNOMED: 475981448] Amy Cheung MD, [facility] CPT- 4: 70032 08/21/2012 ([id number]) 61729 EST. P ATIENT, LEVEL IV Diagnosis: DIABETES TYPE II[SNOMED: 494101030] Diagnosis: DEPRESSIVE DISORDER NEC[ICD9: 311] Amy Cheung MD [facility] CPT- 4: 20074 07/17/2012 ([id number]) 28924 EST. P ATIENT, LEVEL III Diagnosis: ESSENTIAL HYPERTENSION[SNOMED: 69536883] Diagnosis: DEPRESSIVE DISORDER NEC[ICD9: 311] Amy Cheung MD, [facility] CPT- 4: 67583 07/08/2012 90645 EST. PATIENT, LEVEL IV Diagnosis: ESSENTIAL HYPERTENSION[SNOMED: 49910994] Diagnosis: DIABETES TYPE II[SNOMED: 512733525] Amy Cheung MD, [facility] CPT- 4: 14681 06/09/2012 ([id number]) 05863 EST. P ATIENT, LEVEL III Diagnosis: Acute sinusitis[ICD9: 461.9] Diagnosis: FEVER NOS[ICD9: 780.60] Amy Cheung MD, [facility] CPT-4: 75615 02/12/2012 ([id number]) 95042 EST. P ATIENT, LEVEL III Diagnosis: Otalgia of both ears[ICD9: 388.70] Diagnosis: Hemorrhoids[ICD9: 455.6] Diagnosis: Rectal or anal pain[ICD9: 569.42] Amy Cheung MD, [facility] CPT-4: 99694 02/05/2012 ([id number]) 91685 EST. P ATIENT, LEVEL IV Diagnosis: Dysuria[ICD9: 788.1] Diagnosis: ACUTE MAXILLARY SINUSITIS[ICD9: 461.0] Diagnosis: Allergic rhinitis[ICD9: 477.9] Amy Cheung MD, [facility] CPT-4: 20764 11/14/2011 ([id number]) 16511 EST. P ATIENT, LEVEL IV Diagnosis: DIABETES TYPE II[SNOMED: 096349483] Diagnosis: Cough[ICD9: 786.2] Diagnosis: FEVER NOS[ICD9: 780.60] Amy Cheung MD, [facility] CPT-4: 47540 10/08/2011 15090 EST. PATIENT, LEVEL IV Diagnosis: OTHER CONSTIPATION[ICD9: 564.09] Diagnosis: IMPACTED CERUMEN[ICD9: 380.4] Diagnosis: Recurrent sinusitis[ICD9: 473.9] Amy Cheung MD [facility] CPT-4: 73952 08/28/2011 28104 EST. PATIENT, LEVEL IV Diagnosis: Neck pain, acute[ICD9: 723.1] Diagnosis: Cough[ICD9: 786.2] Diagnosis: Cerumen impaction[ICD9: 380.4] Amy Cheung MD [facility] CPT-4: 63618 08/23/2011 77360 EST. 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 PATIENT, LEVEL IV Diagnosis: Abdominal pain[ICD9: 789.00] Diagnosis: Hematochezia[ICD9: 578.1] Diagnosis: Back pain[ICD9: 724.5] Amy Cheung MD [facility] CPT-4: 42292 06/19/2011 79920 EST. 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 04/01/2018 Patient Education: Patient Medication Summary Completed 04/01/2018 Patient Education: Patient Medication Summary Completed 03/31/2018 [facility]ment[phone] (15 min) Moderate 01/15/2018 Visit Plan: Diabetes [...] at home. 11/25/2017 Appointment: [phone] (15 min) Moderate 11/25/2017 Patient Education: Patient [...] 09/18/2017 Appointment: Amy Cheung WPtel: [phone] [facility] (15 min) Moderate 09/18/2017 Patient Education: Patient Medication Summary Completed 09/18/2017 Visit Plan: Diabetes Mellitus - con myriamed [...] shot today 05/02/2017 Appointment: [phone] [place] (15 min) Moderate 05/02/2017 Patient Education: Patient Medication Summary Completed 05/02/2017 Appointment: [phone] (15 min) Moderate 04/15/2017 Visit Plan: Thrush-discussed natura l and expected course of this diagnosis and to alert me if symptoms do not follow expected course, or if any worse. RX sent to patient's pharmacy. Patient verbalized understanding of plan. 03/29/2017 Appointment: Riya Sheikh WPtel: [phone] [phone] (30 min) Complex 03/29/2017 Patient Education: Patient Medication Summary Completed 03/29/2017 Patient Education: Obesity Completed 03/29/2017 Appointment: Amy Cheung WPtel: [facility] (15 min) Moderate 03/14/2017 Visit Plan: Diabetes [...] home. 11/15/2016 Appointment: Amy Cheung WPtel: [phone] [facility] (15 min) Moderate 11/15/2016 Patient Education: Patient Medication Summary Completed 11/15/2016 Appointment: Amy Cheung WPtel: [facility] (15 min) Moderate 11/07/2016 Visit Plan: [...] control. 11/06/2016 [facility]ment[phone] ([facility] min) Complex 11/06/2016 Patient Education: Patient Medication Summary Completed 11/06/2016 Patient Education: Patient Medication Summary Completed 09/19/2016 Patient Education: Patient Medication Summary Completed 08/22/2016 Care Plan: Comp Metabolic Pending 08/22/2016 Care Plan: %Hba1C she can have drawn anytime after 09/04/16 LOINC : 33825-5 Pending 08/22/2016 Visit Plan: Diabetes Mellitus - [...] clinic. 08/01/2016 Appointment: [phone] (15 min) Moderate 08/01/2016 Patient Education: Patient Medication Summary Completed 08/01/2016 Appointment: [phone] (15 min) Moderate 07/09/2016 Visit Plan: Diabetes [...] motility 07/02/2016 Appointment: [phone] (15 min) Moderate 07/02/2016 Patient Education: Patient [...] control. 06/04/2016 Appointment: [facility]el[phone] (15 min) Moderate 06/04/2016 Patient Education: Patient [...] medications. 03/26/2016 Appointment: [facility]el[phone] (15 min) Moderate 03/26/2016 Patient Education: Patient [...] Hypertension Completed 10/14/2015 Appointment: Amy Cheung WPtel: [facility] (15 min) Moderate 10/13/2015 Appointment: Amy Cheung WPtel: [phone] [facility] (15 min) Moderate 05/09/2015 Visit Plan: Diabetes [...] esophageal cancer. 03/31/2015 Appointment: Amy Cheung WPtel: [facility] (15 min) Moderate 03/31/2015 Patient Education: Patient Medication Summary Completed 03/31/2015 Patient Education: Hypertension Completed 03/31/2015 Appointment: (15 min) Moderate 02/11/2015 Appointment: Amy Cheung WPtel: [facility] [place] Sick 09/29/2014 Visit Plan: Diabetes Mellitus [...] months. 08/31/2014 Appointment: [facility]el[phone] Follow up 08/31/2014 Patient Education: Patient Medication [...] Completed 08/10/2014 Appointment: [facility]el[phone] Follow up 05/10/2014 Visit Plan: Allergies - [...] - MRI to be ordered. 05/06/2014 Appointment: Mian Cheungy WPtel: [facility] Follow up 05/06/2014 Patient Education: Patient Medication Summary Completed 05/06/2014 Patient Education: .Cervicalgia Neck Pain Completed 05/06/2014 Appointment: Mina Cheungy WPtel: [facility] Follow up 05/05/2014 Visit Plan: Hypertension [...] for evaluation of the neck. 04/14/2014 Appointment: Skye Amy WPtel: [facility] Follow up 04/14/2014 Patient Education: Patient [...] 11/10/2013 Appointment: Amy Cheung WPtel: [phone] [facility] Other 11/10/2013 Patient Education: Patient Medication [...] symptoms. 07/14/2013 Appointment: [phone] Other 07/14/2013 Patient Education: Patient Medication Summary Completed 07/14/2013 Appointment: Riya Sheikh WPtel: [phone] [phone] Follow up 07/13/2013 Visit Plan: Hypertension [...] glucose control. 06/12/2013 Appointment: Riya Sheikh WPtel: [facility] Other 06/12/2013 Patient Education: Patient Medication Summary [...] to patient. 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 Kraus as he will ultimately [...] Glyburide restarted. 04/09/2013 Appointment: Amy Cheung WPtel: [address] [place], [place] [phone] Follow up 04/09/2013 Patient Education: Patient Medication Summary Completed 04/09/2013 Patient Education: Hypertension Completed 04/09/2013 Appointment: Amy Cheung WPtel: [address] [place], [place] [phone] Follow up 03/30/2013 Visit Plan: Hypertension - [...] water today 01/26/2013 Appointment: Amy Cheung WPtel: [facility] Other 01/26/2013 Patient Education: Patient Medication [...] at home. 12/23/2012 Appointment: Amy Cheung WPtel: [address] [place] [phone] Follow up 12/23/2012 Patient Education: Patient Medication Summary Completed 12/23/2012 Patient Education: Hypertension Completed 12/23/2012 Visit Plan: Sinusitis - Pt has acut e infection - pain in face, maxillary region, Pt informed to use decongestant, RX given to patient, sinus rinses also recommended. Call if symptoms do not show improvement. 12/15/2012 Appointment: Amy Cheung WPtel: [address] [place], [place] [phone] Sick 12/15/2012 Patient Education: Patient Medication Summary Completed 12/15/2012 Visit Plan: Bruising and pain post fall- with hip pain - recommended pt to have xray of hips and pelvis and lumbar spine as she is having the pain in her hips post fall. 10/22/2012 Appointment: Amy Cheung WPtel: [facility] Other 10/22/2012 Patient Education: Patient Medication Summary Completed 10/22/2012 Appointment: Amy Cheung WPtel: [address] [place], [place] [phone] [place] Follow up 09/30/2012 Visit Plan: Hypertension - [...] less controlled. 08/21/2012 Appointment: [phone] Follow up 08/21/2012 Patient Education: Patient Medication [...] [place] they can grow and change together. No change to Pat's medications today. Time based documentation -I spent over 40 minutes with the patient in discussion of the disease process, expected course, and overall prognosis for the patient's disease state. The patient/family expressed understanding. 07/17/2012 Appointment: [facility]el[phone] Follow up 07/17/2012 Patient Education: Patient Medication [...] issues today. 07/08/2012 Appointment: Amy Cheung WPtel: [address] [place] [address] Other 07/08/2012 Patient Education: Patient Medication Summary [...] checked. 06/09/2012 Appointment: Amy Cheung WPtel: [address] [place] [address] Other 06/09/2012 Patient Education: Patient Medication Summary Completed 06/09/2012 Patient Education: High Blood Pressure: Essential Hypertension Completed 06/09/2012 Visit Plan: Sinusitis - Pt has acut e infection - pain in face, maxillary region, Pt informed to use decongestant, RX given to patient, sinus rinses also recommended. Call if symptoms do not show improvement. 02/12/2012 Appointment: Amy Cheung WPtel: [address] [place] [address] Other 02/12/2012 Patient Education: Patient Medication Summary [...] place. 02/05/2012 Appointment: Amy Cheung WPtel: [address] [place] [address] Other 02/05/2012 Patient Education: Patient Medication Summary [...] any worse. Check your thyroid labs at [facility]-we will call you with the results. Allergies - chronic - recommended pt to use allergy medication as prescribed. Pt has been counseled as the the appropriate use of the medication. Pt to call if allergy symptoms are not controlled with the medication. Dysuria - UA negative 11/14/2011 Appointment: Amy Cheung WPtel: [address] [place] [address] Other 11/14/2011 Appointment: Amy Cheung WPtel: [address] [place] [address] Other 11/14/2011 Patient Education: Patient Medication Summary [...] today. 10/08/2011 Appointment: [facility]el: [phone] Other 10/08/2011 Patient Education: Patient Medication Summary [...] process. 08/28/2011 Appointment: [facility]Ptel: [phone] [place] Other 08/28/2011 Patient Education: Patient Medication [...] in readings. 07/24/2011 Appointment: Amy Cheung WPtel: [phone] [facility] Other 07/24/2011 Patient Education: Patient Medication Summary [...] lower back. 06/19/2011 Appointment: Amy Cheung WPtel: [phone] [facility] Other 06/19/2011 Patient Education: Patient Medication [...] neuropathic symptoms. 06/05/2011 Appointment: Amy Cheung WPtel: [address] [place], [place] [address] Other 06/05/2011 Patient Education: Patient Medication Summary [...] a copy of this note to her Driver/Sales Workers - Dr. Kraus as he will ultimately [...] she can have [place] environment [place] they can grow and change together. No [...] if symptoms do not show improvement. . Bruising and pain post fall- with [...] readings at home. [facility] [...] based on previous levels of control. . Diabetes Mellitus - controlled - [...] any worse. Check your thyroid labs at [facility]-we will call you with the results. [...] assure normal liver response to medications. . Constipation - unc ontrolled - I [...] Cough - use prn cough medication. . Abdominal pain - d iscussed need [...] with codeine given to patient today. . Hypertension - wel l controlled [...]
--- OUTSIDE RECORDS SUMMARY | 2019-08-12 23:09 | XMS REPORT | CCD ---
Author Author Veronica Cheung Organization Amy Cheung MD, [facility] Address [address] [place] [address] Phone Care Team Providers Care Manager Architectural Name Role Phone PP Unavailable CCM Unavailable Summary Purpose Interface Exchange Insurance Providers Payer name Policy type / Coverage type Covered republican ID Effective Begin Date Effective End Date WPS Medicare Part B Medicare Part B [id number] Unknown GEHA Medicare Part B [id number] Unknown Family history Father Diagnosis Age At [...] Codes Condition Status Onset Date Resolved Date Encounter for immuni zation ICD-9: V06.6 ICD-10: Z23 Active 05/02/2017 Unknown Essential (primary) hypertension ICD-9: 401.1 ICD-10: I10 Active 11/15/2016 Unknown Mixed hyperlipidemia ICD-9: 272.4 ICD-10: E78.2 Active 05/02/2017 Unknown 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 ICD-9: 250.00 ICD-10: E11.9 Active 11/15/2016 Unknown Candidal stomatitis ICD- 9: 112.0 ICD-10: B37.0 Active 03/29/2017 Unknown Hypothyroidism, unsp ecified ICD-9: 244.9 ICD-10: [...] Condition Codes Effectiv e Dates Condition Status Encounter for immuni zation ICD-9: V06.6 ICD-10: Z23 05/02/2017 Active Essential (primary) hypertension ICD-9: 401.1 ICD-10: I10 11/15/2016 Active Mixed hyperlipidemia ICD-9: 272.4 ICD-10: E78.2 05/02/2017 Active 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 ICD-9: 250.00 ICD-10: E11.9 11/15/2016 Active Candidal stomatitis ICD- 9: 112.0 ICD-10: B37.0 03/29/2017 Active Hypothyroidism, unsp ecified ICD-9: 244.9 ICD-10: [...] Date Stop Date Sta tus Fill Instructions oxazepam 10 mg capsule RxNorm: 704052 1 Capsule(s) PO TID as needed anxiety 09/02/2017 02/28/2018 Ac tive fluticasone 50 mcg/a ctuation nasal spray,suspension RxNorm: 7134477 [place] USE ONE SPRAY IN EACH NOSTRIL TWICE A DAY 08/29/2017 12/26/2017 Active oxazepam 10 mg capsule RxNorm: 732526 1 Capsule(s) PO TID as needed anxiety 08/29/2017 09/01/2017 In active furosemide 40 mg tablet RxNorm: 468505 TAKE 1 TABLET DAILY 08/26/2017 08/20/2018 Active pilocarpine 5 mg tablet RxNorm: 4195464 TAKE 4 TABLETS DAILY 08/26/2017 08/20/2018 Active metformin 500 mg tablet RxNorm: 584568 TAKE 1 TABLET TWICE A DAY 08/20/2017 08/14/2018 Active Claritin-D 12 Hour 5 mg-120 mg tablet,extended release RxNorm: 3053923 Tablet(s) TAKE ONE (1) TABLET BY MOUTH TWICE DAILY 07/29/2017 09/26/2017 Active fluticasone 50 mcg/a ctuation nasal spray,suspension RxNorm: 2934621 [place] USE ONE SPRAY IN EACH NOSTRIL TWICE A DAY 07/25/2017 07/24/2017 Inactive fluticasone 50 mcg/a ctuation nasal spray,suspension RxNorm: 4615356 [place] USE ONE SPRAY IN EACH NOSTRIL TWICE A DAY 07/25/2017 08/28/2017 Inactive fluticasone 50 mcg/a ctuation nasal spray,suspension RxNorm: 3645678 [place] USE ONE SPRAY IN EACH NOSTRIL TWICE A DAY 06/04/2017 07/24/2017 Inactive montelukast 10 mg ta blet RxNorm: 216627 TAKE 1 TABLET DAILY 06/03/2017 05/28/2018 Active levothyroxine 25 mcg tablet RxNorm: 061208 TAKE 1 TABLET DAILY 05/13/2017 11/08/2017 Active Voltaren 1 % topical gel RxNorm: 534346 2 Gram(s) TOP QID 05/02/2017 2017 Active nystatin 100,000 uni t/mL oral suspension RxNorm: 516379 5 Milliliter(s) PO QI D 03/29/2017 04/11/2017 In active Diflucan 150 mg tablet RxNorm: 930288 1 Tablet(s) PO daily 03/29/2017 05/01/2017 Inactive Trulicity 1.5 mg/0.5 mL subcutaneous pen injector RxNorm: 0824440 INJECT 0.5ML SUBCUTANEOUSLY EVERY WEEK 02/28/2017 01/29/2018 Active levothyroxine 25 mcg tablet RxNorm: 224705 1 Tablet(s) PO daily 11/19/2016 11/18/2016 Inactive levothyroxine 25 mcg tablet RxNorm: 023250 1 Tablet(s) PO daily 11/19/2016 05/12/2017 Inactive Claritin 10 mg tablet RxNorm: 925140 1 Tablet(s) PO daily 11/07/2016 11/06/2016 Inactive Claritin 10 mg tablet RxNorm: 856492 1 Tablet(s) PO daily 11/07/2016 12/06/2016 Inactive Zithromax Z-Ankit 250 mg tablet RxNorm: 215639 1 Tablet(s) PO UD 11/07/2016 05/01/2017 Inactive oxazepam 10 mg capsule RxNorm: 011518 1 Capsule(s) PO TID as needed anxiety 11/01/2016 12/30/2016 In active Nexium 40 mg capsule ,delayed release RxNorm: 180801 1 Capsule(s) PO BID 10/25/2016 10/19/2017 Ac tive Claritin-D 12 Hour 5 mg-120 mg tablet,extended release RxNorm: 7929396 Tablet(s) TAKE ONE (1) TABLET BY MOUTH TWICE DAILY 10/25/2016 12/23/2016 Inactive mesalamine 800 mg ta blet,delayed release RxNorm: 134474 1 Tablet(s) PO BID 09/18/2016 06/14/2017 In active mesalamine 800 mg ta blet,delayed release RxNorm: 564518 1 Tablet(s) PO BID 09/18/2016 09/17/2016 In active Effexor XR 75 mg cap alma,extended release RxNorm: 911567 1 Capsule(s) PO daily 08/30/2016 08/24/2017 In active metformin 500 mg tablet RxNorm: 019652 1 Tablet(s) PO BID 08/17/2016 08/11/2017 Inactive oxazepam 10 mg capsule RxNorm: 488913 1 Capsule(s) PO TID as needed anxiety 08/17/2016 10/15/2016 In active Claritin-D 12 Hour 5 mg-120 mg tablet,extended release RxNorm: 1145900 TAKE ONE (1) TABLET BY MOUTH TWICE DAILY... 08/16/2016 10/24/2016 Inactive furosemide 40 mg tablet RxNorm: 543244 1 Tablet(s) daily TAKE 1 TABLET DAILY 08/14/2016 08/08/2017 In active Effexor XR 75 mg cap alma,extended release RxNorm: 415574 1 Capsule(s) PO daily 08/14/2016 08/29/2016 In active pilocarpine 5 mg tablet RxNorm: 4844776 4 Tablet(s) PO daily TAKE 4 TABLETS YARI Y 08/14/2016 08/08/2017 In active metoclopramide 5 mg tablet RxNorm: 817602 1/2 to 1 Tablet(s) PO TID for nause and GI dysmotility 07/02/2016 11/14/2016 Inactive Effexor XR 75 mg cap alma,extended release RxNorm: 300871 1 Capsule(s) PO daily 07/02/2016 08/13/2016 In active metformin 500 mg tablet RxNorm: 393029 1/2 TABLET(S) PO BID X2 WEEKS THEN INCRE ASE TO 1 TABLET PO BID THEREAFTER 06/26/2016 08/16/2016 Inactive 30 day supply Claritin-D 12 Hour 5 mg-120 mg tablet,extended release RxNorm: 8142180 1 Tablet(s) PO BID 06/18/2016 08/15/2016 Inactive montelukast 10 mg ta blet RxNorm: 040663 1 Tablet(s) PO daily 06/13/2016 06/02/2017 Inactive metformin 500 mg tablet RxNorm: 427216 1/2 Tablet(s) PO BID x2 weeks then incre ase to 1 Tablet PO BID thereafter 06/07/2016 06/06/2016 Inactive 30 day supply metformin 500 mg tablet RxNorm: 472814 1/2 Tablet(s) PO BID x2 weeks then incre ase to 1 Tablet PO BID thereafter 06/07/2016 06/25/2016 Inactive 30 day supply Diflucan 150 mg tablet RxNorm: 802714 1 Tablet(s) PO daily 03/27/2016 04/02/2016 Inactive nystatin 100,000 uni t/mL oral suspension RxNorm: 839558 5 Milliliter(s) PO QI D 03/27/2016 04/05/2016 In active nystatin 100,000 uni t/mL oral suspension RxNorm: 665497 5 Milliliter(s) PO QI D 03/27/2016 03/26/2016 In active Diflucan 150 mg tablet RxNorm: 750647 1 Tablet(s) PO daily 03/27/2016 03/26/2016 Inactive Effexor XR 75 mg cap alma,extended release RxNorm: 787333 1 Capsule(s) PO daily 03/26/2016 07/01/2016 In active this replaces the 150mg dose - we are we aning down her dose Trulicity 1.5 mg/0.5 mL subcutaneous pen injector RxNorm: 3113905 0.5 Milliliter(s) SQ QW 03/26/2016 02/27/2017 Inactive Trulicity 0.75 mg/0. 5 mL subcutaneous pen injector RxNorm: 7597794 1 injection SQ QW 03/13/2016 06/03/2016 Inactive Trulicity 0.75 mg/0. 5 mL subcutaneous pen injector RxNorm: 4462988 1/2 Milliliter(s) SQ QW 03/13/2016 03/12/2016 Inactive glyburide 2.5 mg tablet RxNorm: 451032 1/2 Tablet(s) PO BID 03/13/2016 03/25/2016 Inactive glyburide 2.5 mg tablet RxNorm: 395538 1/2 Tablet(s) PO BID 03/13/2016 03/12/2016 Inactive Claritin-D 12 Hour 5 mg-120 mg tablet,extended release RxNorm: 2611818 1 Tablet(s) PO BID 02/03/2016 10/24/2016 Inactive Synthroid 25 mcg tablet RxNorm: 832554 1 Tablet(s) PO daily 01/23/2016 11/18/2016 Inactive Synthroid 25 mcg tablet RxNorm: 694357 1 Tablet(s) PO daily 01/23/2016 01/22/2016 Inactive Claritin-D 12 Hour 5 mg-120 mg tablet,extended release RxNorm: 8439599 1 Tablet(s) PO BID 12/05/2015 05/31/2016 Inactive Effexor XR 150 mg ca psule,extended release RxNorm: 643033 TAKE 1 CAPSULE DAILY 12/05/2015 03/25/2016 In active Bydureon 2 mg/0.65 m L subcutaneous pen injector RxNorm: 5956253 2 Milligram(s) SQ QW 10/14/2015 03/12/2016 Inactive oxazepam 10 mg capsule RxNorm: 607938 1 Capsule(s) PO TID PRN as needed anxiet y 10/14/2015 04/10/2016 In active Nexium 40 mg capsule ,delayed release RxNorm: 133197 1 Capsule(s) BID TAKE 1 CAPSULE DAILY 10/14/2015 10/07/2016 Inactive this is a new RX - fill the twice daily dose instead of once daily dose Effexor XR 150 mg ca psule,extended release RxNorm: 254931 1 Capsule(s) PO daily TAKE 1 CAPSULE DAILY 10/03/2015 03/25/2016 Inactive pilocarpine 5 mg tablet RxNorm: 3363986 4 Tablet(s) PO daily TAKE 4 TABLETS YARI Y 08/09/2015 02/04/2016 In active pilocarpine 5 mg tablet RxNorm: 6968799 4 Tablet(s) PO daily TAKE 4 TABLETS YARI Y 07/26/2015 08/08/2015 In active Claritin-D 12 Hour 5 mg-120 mg tablet,extended release RxNorm: 9702431 1 Tablet(s) PO BID 05/02/2015 10/24/2016 Inactive furosemide 40 mg tablet RxNorm: 876511 1 Tablet(s) daily TAKE 1 TABLET DAILY 03/31/2015 03/24/2016 In active Nexium 40 mg capsule ,delayed release RxNorm: 273554 1 Capsule(s) BID TAKE 1 CAPSULE DAILY 03/31/2015 10/13/2015 Inactive this is a new RX - fill the twice daily dose instead of once daily dose Nexium 40 mg capsule ,delayed release RxNorm: 058492 1 Capsule(s) daily TA KE 1 CAPSULE DAILY 03/31/2015 03/30/2015 Inactive montelukast 10 mg ta blet RxNorm: 589867 1 Tablet(s) PO daily 03/31/2015 03/24/2016 Inactive Synthroid 25 mcg tablet RxNorm: 171692 1 Tablet(s) PO daily 01/17/2015 01/11/2016 Inactive Synthroid 25 mcg tablet RxNorm: 236198 1 Tablet(s) PO daily 01/03/2015 01/16/2015 Inactive Claritin-D 12 Hour 5 mg-120 mg tablet,extended release RxNorm: 2638562 1 Tablet(s) PO BID 12/29/2014 05/01/2015 Inactive Synthroid 25 mcg tablet RxNorm: 378186 1 Tablet(s) PO daily 12/20/2014 01/02/2015 Inactive Synthroid 25 mcg tablet RxNorm: 123816 1 Tablet(s) PO daily 12/07/2014 12/19/2014 Inactive Effexor XR 150 mg ca psule,extended release RxNorm: 118251 1 Capsule(s) PO daily TAKE 1 CAPSULE DAILY 11/30/2014 10/02/2015 Inactive Nexium 40 mg capsule ,delayed release RxNorm: 002831 Capsule(s) TAKE 1 CAP ALMA DAILY 11/30/2014 03/30/2015 In active fenofibric acid (cho line) 135 mg capsule,delayed release RxNorm: 008928 1 Capsule(s) PO daily 08/31/2014 08/25/2015 Inactive Bydureon 2 mg subcut aneous extended release suspension RxNorm: 6514051 1 injection SQ QW 07/21/2014 07/15/2015 Inactive fluticasone 50 mcg/a ctuation nasal spray,suspension RxNorm: 9038793 USE ONE SPRAY IN EACH NOSTRIL TWICE A DAY 07/06/2014 06/03/2017 Inactive Lipitor 10 mg tablet RxNorm: 619561 TAKE 1 TABLET AT BEDTIME 06/15/2014 10/13/2015 Inactive furosemide 40 mg tablet RxNorm: 643253 TAKE 1 TABLET DAILY 06/15/2014 03/30/2015 Inactive oxazepam 10 mg capsule RxNorm: 588261 1 Capsule(s) PO TID PRN as needed anxiet y 06/11/2014 12/07/2014 In active montelukast 10 mg ta blet RxNorm: 579208 1 Tablet(s) PO daily 05/25/2014 03/30/2015 Inactive oxazepam 10 mg capsule RxNorm: 333168 1 Capsule(s) PO TID PRN as needed anxiet y 05/06/2014 06/10/2014 In active montelukast 10 mg ta blet RxNorm: 926193 1 Tablet(s) PO daily 05/04/2014 05/24/2014 Inactive Nexium 40 mg capsule ,delayed release RxNorm: 679216 TAKE 1 CAPSULE DAILY 03/25/2014 11/29/2014 In active Nexium 40 mg capsule ,delayed release RxNorm: 160864 1 Capsule(s) PO daily TAKE 1 CAPSULE DAILY 03/02/2014 03/24/2014 Inactive oxazepam 10 mg capsule RxNorm: 313700 1 Capsule(s) PO TID PRN as needed 02/24/2014 04/24/2014 In active pilocarpine 5 mg tablet RxNorm: 4657338 TAKE 4 TABLETS DAILY 02/01/2014 07/25/2015 Inactive Claritin-D 12 Hour 5 mg-120 mg tablet,extended release RxNorm: 0748167 1 Tablet(s) PO BID 12/24/2013 10/24/2016 Inactive Effexor XR 150 mg ca psule,extended release RxNorm: 126095 1 Capsule(s) PO daily TAKE 1 CAPSULE DAILY 12/24/2013 11/29/2014 Inactive Klor-Con 10 mEq tabl et,extended release RxNorm: 685093 1 Tablet(s) PO daily 12/24/2013 10/13/2015 In active Bydureon 2 mg subcut aneous extended release suspension RxNorm: 1461556 1 injection SQ QW 12/07/2013 07/20/2014 Inactive Synthroid 25 mcg tablet RxNorm: 782902 1 Tablet(s) PO daily 12/02/2013 11/26/2014 Inactive Klor-Con 10 mEq tabl et,extended release RxNorm: 198382 1 Tablet(s) PO daily take 2 daily x 1 week then one daily thereafter 12/02/2013 12/23/2013 Inactive oxazepam 10 mg capsule RxNorm: 501921 1 Capsule(s) PO TID PRN 11/10/2013 01/08/2014 Inactive omeprazole 20 mg cap alma,delayed release RxNorm: 314457 1 Capsule(s) PO daily 11/10/2013 04/13/2014 In active Synthroid 50 mcg tablet RxNorm: 191719 Tablet(s) PO TAKE 1 TABLET DAILY 09/21/2013 12/01/2013 In active furosemide 40 mg tablet RxNorm: 648243 Tablet(s) PO TAKE 1 TABLET DAILY 09/21/2013 06/14/2014 In active Bydureon 2 mg subcut aneous extended release suspension RxNorm: 1887076 1 injection SQ QW 07/22/2013 12/06/2013 Inactive Bydureon 2 mg subcut aneous extended release suspension RxNorm: 6339127 1 injection SQ QW 07/14/2013 07/21/2013 Inactive Nexium 40 mg capsule ,delayed release RxNorm: 185412 Capsule(s) PO TAKE 1 CAPSULE DAILY 06/18/2013 11/09/2013 Inactive fluticasone 50 mcg/a ctuation nasal spray,suspension RxNorm: 312777 1 [place] NASAL BID 06/18/2013 07/05/2014 Inactive Lipitor 10 mg tablet RxNorm: 009715 Tablet(s) PO every other day 1 tablet qo d 06/18/2013 06/12/2014 In active losartan 25 mg tablet RxNorm: 486753 1 Tablet(s) PO daily 1 daily for blood p ressure 06/18/2013 10/15/2013 Inactive Toprol XL 25 mg tabl et,extended release RxNorm: 055401 1 Tablet(s) PO daily 06/18/2013 06/12/2014 In active Toprol XL 25 mg tabl et,extended release RxNorm: 505559 1 Tablet(s) PO daily 06/12/2013 06/17/2013 In active losartan 25 mg tablet RxNorm: 986755 1 Tablet(s) PO daily 1 daily for blood p ressure 06/12/2013 06/17/2013 Inactive Lipitor 10 mg tablet RxNorm: 019779 Tablet(s) PO every other day 1 tablet qo d 06/12/2013 06/17/2013 In active Effexor XR 150 mg ca psule,extended release RxNorm: 975572 1 Capsule(s) PO daily TAKE 1 CAPSULE DAILY 05/27/2013 12/23/2013 Inactive Bydureon 2 mg subcut aneous extended release suspension RxNorm: 9575228 1 injection SQ QW 05/20/2013 07/13/2013 Inactive Lipitor 10 mg tablet RxNorm: 262884 Tablet(s) PO every other day 1 tablet qo d 05/20/2013 06/11/2013 In active Pen Needle 32 x 5/32" RxNorm: Miscellaneous use with byetta pen 05/07/2013 09/03/2013 Inactive Effexor XR 150 mg ca psule,extended release RxNorm: 049047 1 Capsule(s) PO daily TAKE 1 CAPSULE DAILY 05/07/2013 05/26/2013 Inactive Pen Needle 32 x 5/32" RxNorm: Miscellaneous use with byetta pen 05/06/2013 05/06/2013 Inactive Pen Needle 32 x 5/32" RxNorm: Miscellaneous use with byetta pen 05/06/2013 05/05/2013 Inactive Byetta 5 mcg/0.02 mL per dose Sub-Q Pen Injector RxNorm: 557634 1 Unit Dose SQ BID 04/29/2013 05/19/2013 In active metformin ER 500 mg tablet,extended release 24 hr RxNorm: 469457 1 Tablet(s) PO BID 04/28/2013 06/19/2013 In active Byetta 5 mcg/0.02 mL per dose Sub-Q Pen Injector RxNorm: 239587 1 Unit Dose SQ BID 04/28/2013 04/27/2013 In active Byetta 5 mcg/0.02 mL per dose Sub-Q Pen Injector RxNorm: 355770 1 Unit Dose SQ BID 04/28/2013 04/28/2013 In active Influenza Virus Vacc ine 0.5 mL RxNorm: IM 04/27/2013 04/27/2013 Inactive glyburide 2.5 mg tablet RxNorm: 946256 1 Tablet(s) PO BID 04/27/2013 04/27/2013 Inactive glyburide 2.5 mg tablet RxNorm: 592197 1/2 Tablet(s) PO daily 04/13/2013 04/26/2013 Inactive glyburide 2.5 mg tablet RxNorm: 012918 1 Tablet(s) PO daily 04/09/2013 04/12/2013 Inactive metformin ER 500 mg tablet,extended release 24 hr RxNorm: 838511 2 Tablet(s) PO BID 04/09/2013 04/27/2013 In active Lipitor 10 mg tablet RxNorm: 035471 Tablet(s) PO TAKE 1 TABLET AT BEDTIME 03/17/2013 05/19/2013 In active losartan 25 mg tablet RxNorm: 403829 1 Tablet(s) PO daily 02/12/2013 06/11/2013 Inactive montelukast 10 mg ta blet RxNorm: 240980 1 Tablet(s) PO daily 02/09/2013 02/08/2013 Inactive montelukast 10 mg ta blet RxNorm: 991142 1 Tablet(s) PO daily 02/09/2013 02/03/2014 Inactive losartan 25 mg tablet RxNorm: 695230 1 Tablet(s) PO daily 02/09/2013 02/11/2013 Inactive losartan 25 mg tablet RxNorm: 584998 1 Tablet(s) PO daily 01/26/2013 02/08/2013 Inactive Effexor XR 150 mg ca psule,extended release RxNorm: 892185 Capsule(s) PO TAKE 1 CAPSULE DAILY 12/24/2012 05/06/2013 Inactive metformin ER 500 mg tablet,extended release 24 hr RxNorm: 764973 Tablet(s) PO TAKE 2 TABLETS TWICE A DAY 12/24/2012 04/08/2013 Inactive pilocarpine 5 mg tablet RxNorm: 0782294 Tablet(s) PO TAKE 4 TABLETS DAILY 12/24/2012 01/31/2014 In active levofloxacin 500 mg tablet RxNorm: 781323 1 Tablet(s) PO daily 12/15/2012 12/19/2012 Inactive Nexium 40 mg capsule ,delayed release RxNorm: 973818 Capsule(s) PO daily T MILO 1 CAPSULE DAILY 11/03/2012 06/17/2013 Inactive Claritin-D 12 Hour 5 mg-120 mg tablet,extended release RxNorm: 8663354 1 Tablet(s) PO BID 10/29/2012 10/23/2013 Inactive TAKE 1 TABLET BY MOUTH TWICE DAILY fluticasone 50 mcg/a ctuation nasal spray,suspension RxNorm: 0231724 1 [place] NASAL BID 10/08/2012 06/17/2013 Inactive Claritin-D 12 Hour 5 mg-120 mg tablet,extended release RxNorm: 3289144 1 Tablet(s) PO BID 09/09/2012 2012 Inactive TAKE 1 TABLET BY MOUTH TWICE DAILY montelukast 10 mg ta blet RxNorm: 227227 1 Tablet(s) PO daily 08/20/2012 02/08/2013 Inactive Synthroid 50 mcg tablet RxNorm: 121690 Tablet(s) PO TAKE 1 TABLET DAILY 08/18/2012 09/20/2013 In active Nexium 40 mg capsule ,delayed release RxNorm: 301738 Capsule(s) PO TAKE 1 CAPSULE DAILY 08/18/2012 11/02/2012 Inactive furosemide 40 mg tablet RxNorm: 844719 Tablet(s) PO TAKE 1 TABLET DAILY 08/18/2012 09/20/2013 In active Klor-Con 10 mEq tabl et,extended release RxNorm: 203948 Tablet(s) PO TAKE 1 T ABLET DAILY 08/18/2012 12/01/2013 Inactive Xanax 0.5 mg tablet RxNorm: 645590 1 Tablet(s) PO Q6 PRN 07/17/2012 10/13/2015 Inactive Zithromax 250 mg tablet RxNorm: 562724 Tablet(s) PO 07/14/2012 11/10/2013 Inactive disp one z ankit fluticasone 50 mcg/a ctuation Nasal [place], Susp RxNorm: 8767365 1 [place] NASAL BID 06/27/2012 10/07/2012 In active Anusol-HC 25 mg Supp ository RxNorm: 6361716 1 Suppository RTL QD AY PRN 06/09/2012 01/04/2013 In active daily x 3 days then prnno longer than 10 days in row use Claritin-D 12 Hour 5 mg-120 mg tablet,extended release RxNorm: 8155344 1 Tablet(s) PO BID 05/22/2012 05/22/2012 Inactive TAKE 1 TABLET BY MOUTH TWICE DAILY Claritin-D 12 Hour 5 mg-120 mg tablet,extended release RxNorm: 0943283 Tablet(s) PO 05/12/2012 05/21/2012 In active TAKE 1 TABLET BY MOUTH TWICE DAILY fluticasone 50 mcg/a ctuation Nasal [place], Susp RxNorm: 7057967 1 [place] NASAL BID 05/06/2012 06/26/2012 In active Rocephin 500 mg Solu tion for Injection RxNorm: 343751 Inj 02/1102/12/2012 Inactive metronidazole 500 mg Tab RxNorm: 546958 1 Tablet(s) PO TID 02/12/2012 02/18/2012 Inactive Kenalog 40 mg/mL [place] p for Injection RxNorm: 9633260 Milliliter(s) Inj 02/12/2012 02/12/2012 In active fluticasone 50 mcg/a ctuation Nasal [place], Susp RxNorm: 9800680 1 [place] NASAL BID 02/12/2012 05/05/2012 In active cefdinir 300 mg Cap RxNorm: 411253 1 Capsule(s) PO BID 02/12/2012 02/21/2012 Inactive Effexor XR 150 mg ca psule,extended release RxNorm: 948325 1 Capsule(s) PO daily 12/17/2011 12/10/2012 In active metformin ER 500 mg tablet,extended release 24 hr RxNorm: 500232 2 Tablet(s) PO BID 12/17/2011 05/14/2012 In active pilocarpine 5 mg tablet RxNorm: 9974577 4 Tablet(s) PO daily 12/17/2011 03/15/2012 Inactive Singulair 10 mg Tab RxNorm: 341146 1 Tablet(s) PO daily 11/27/2011 08/19/2012 Inactive Nexium 40 mg capsule ,delayed release RxNorm: 385470 1 Capsule(s) PO daily 11/26/2011 03/24/2012 In active Claritin-D 12 Hour 5 mg-120 mg tablet,extended release RxNorm: 2656945 1 Tablet(s) PO BID 11/14/2011 05/11/2012 Inactive Claritin-D 12 Hour 5 mg-120 mg Tab RxNorm: 8398982 1 Tablet(s) PO BID 10/31/2011 11/13/2011 In active Claritin-D 12 Hour 5 mg-120 mg Tab RxNorm: 8428656 1 Tablet(s) PO BID 10/29/2011 2011 In active Claritin-D 12 Hour 5 mg-120 mg Tab RxNorm: 5053190 1 Tablet(s) PO BID 10/29/2011 10/30/2011 In active Claritin-D 24 Hour 1 0 mg-240 mg Tab RxNorm: 9512830 1 Tablet(s) PO daily 10/23/2011 2011 In active levofloxacin 500 mg Tab RxNorm: 195573 1 Tablet(s) PO daily 08/28/2011 09/03/2011 Inactive Nasonex 50 mcg/actua tion [place] RxNorm: 398158 1 [place] NASAL BID 08/28/2011 11/25/2011 Inactive promethazine 25 mg/m L Injection RxNorm: 449585 1 Milliliter(s) Inj 08/23/2011 07/14/2013 Inactive glyburide 2.5 mg tablet RxNorm: 837202 1 Tablet(s) PO daily 08/23/2011 04/08/2013 Inactive Rocephin 500 mg Solu tion for Injection RxNorm: 533109 1 Milliliter(s) Inj 08/23/2011 08/28/2011 In active Klor-Con 10 10 mEq t ablet,extended release RxNorm: 831681 1 Tablet(s) PO daily 08/06/2011 07/30/2012 In active Nexium 40 mg Capsule , delayed release RxNorm: 015889 1 Capsule(s) PO daily 08/06/2011 11/25/2011 In active furosemide 40 mg tablet RxNorm: 041361 1 Tablet(s) PO daily 08/06/2011 07/30/2012 Inactive Cymbalta 30 mg Cap RxNorm: 482436 1 Capsule(s) PO daily 07/26/2011 08/28/2011 Inactive Synthroid 50 mcg tablet RxNorm: 490048 Tablet(s) PO 06/21/2011 08/17/2012 Inactive TAKE 1 TABLET DAILY Neurontin 100 mg Cap RxNorm: 958846 2 Capsule(s) PO TID 06/19/2011 08/28/2011 Inactive ciprofloxacin 500 mg Tab RxNorm: 533538 1 Tablet(s) PO BID 06/19/2011 08/28/2011 Inactive Neurontin 100 mg Cap RxNorm: 499762 1 Capsule(s) PO QID 06/05/2011 06/18/2011 Inactive oxazepam 10 mg Cap RxNorm: 240312 1 Capsule(s) PO Q6 PRN 06/05/2011 10/02/2011 Inactive Influenza Virus Vacc ine 0.5 mL RxNorm: IM 06/05/2011 06/05/2011 Inactive EnteraGam 5 gram ora l powder packet RxNorm: 1 PO daily No S tart Date Active hydrocodone-acetamin ophen 5 mg-500 mg Tab RxNorm: 992051 1 Tablet(s) PO Q6 PRN No Start Date Active Centrum Ultra Women' s 18 mg-400 mcg Tab RxNorm: 1 Tablet(s) PO daily No Start Date Active Fish Oil 1,000 mg Cap RxNorm: 2 Capsule(s) PO BID No Start Date Active Zenpep 40,000-136,00 0-218,000 unit capsule,delayed release RxNorm: 2333540 1 Capsule(s) PO QID No Start Date Active mesalamine 4 gram/60 mL enema RxNorm: 838301 1 Milliliter(s) RTL d aily No Start Date Active Linzess 290 mcg capsule RxNorm: 3590559 1 Capsule(s) PO daily No Start Date Active aspirin 81 mg Cap, D elayed Release RxNorm: 749952 1 Capsule(s) PO daily No Start Date Active Vitamin B-12 1,000 m cg Tab RxNorm: 050618 2 Tablet(s) PO daily No Start Date Active Vitamin C With Darlyn Hips 1,000 mg Tab RxNorm: 711075 1 Tablet(s) PO daily No Start Date Active Lipitor 10 mg Tab RxNorm: 118210 1 Tablet(s) PO HS No Start Date 04/10/2011 Inactive Lipitor 20 mg Tab RxNorm: 849742 1 Tablet(s) PO HS No Start Date 08/28/2011 Inactive Zithromax 250 mg tablet RxNorm: 897477 Tablet(s) PO No Start Date 07/13/2012 Inactive disp one z ankit Effexor XR 150 mg 24 hr Cap RxNorm: 572138 1 Capsule(s) PO daily No Start Date 12/16/2011 Inactive Bydureon 2 mg/0.65 m L subcutaneous pen injector RxNorm: 8350429 Milliliter(s) SQ QW No Start Date 10/13/2015 Inactive furosemide 40 mg Tab RxNorm: 281749 1 Tablet(s) PO daily No Start Date 08/05/2011 Inactive Synthroid 25 mcg tablet RxNorm: 496789 1 Tablet(s) PO daily No Start Date 12/01/2013 Inactive Januvia 50 mg tablet RxNorm: 956991 1 Tablet(s) PO daily samples No Start Date 04/27/2013 Inactive Lipitor 10 mg tablet RxNorm: 839249 1 Tablet(s) PO daily No Start Date 03/16/2013 Inactive Crestor 10 mg tablet RxNorm: 706144 1 Tablet(s) PO QHS No Start Date 03/25/2016 Inactive Asacol HD 800 mg Tab RxNorm: 133090 2 Tablet(s) PO daily No Start Date 10/13/2015 Inactive pilocarpine 5 mg Tab RxNorm: 6938540 4 Tablet(s) PO daily No Start Date 12/16/2011 Inactive glyburide 2.5 mg Tab RxNorm: 267388 1 Tablet(s) PO BID No Start Date 08/22/2011 Inactive Claritin-D 24 Hour 1 0 mg-240 mg Tab RxNorm: 8198782 1 Tablet(s) PO daily No Start Date 10/22/2011 Inactive Vitamin D 1,000 unit Tab RxNorm: 419376 1 Tablet(s) PO daily No Start Date 10/13/2015 Inactive Tricor 145 mg Tab RxNorm: 621666 1 Tablet(s) PO daily No Start Date 10/14/2015 Inactive Zithromax Z-Ankit 250 mg tablet RxNorm: 107265 1 Tablet(s) PO UD No Start Date 11/06/2016 Inactive Synthroid 25 mcg tablet RxNorm: 082396 1 Tablet(s) PO daily No Start Date 05/01/2017 Inactive Claritin-D 12 Hour 5 mg-120 mg tablet,extended release RxNorm: 8511874 1 Tablet(s) PO BID No Start Date 12/23/2013 Inactive Singulair 10 mg Tab RxNorm: 179085 1 Tablet(s) PO daily No Start Date 11/26/2011 Inactive Calcium 600 + D(3) 6 00 mg (1,500)-200 unit Tab RxNorm: 364224 1 Tablet(s) PO daily No Start Date 10/13/2015 Inactive Lialda 1.2 gram tabl et,delayed release RxNorm: 914265 2 Tablet(s) PO daily No Start Date 09/17/2016 Inactive Effexor XR 150 mg 24 hr Cap RxNorm: 000350 1 Capsule(s) PO daily No Start Date 08/28/2011 Inactive aspirin 325 mg Tab RxNorm: 962914 1 Tablet(s) PO daily No Start Date 08/28/2011 Inactive Toprol XL 25 mg tabl et,extended release RxNorm: 059170 1 Tablet(s) PO daily No Start Date 06/11/2013 Inactive lisinopril 10 mg tablet RxNorm: 691839 1 Tablet(s) PO daily No Start Date 01/25/2013 Inactive Cymbalta 60 mg Cap RxNorm: 980783 1 Capsule(s) PO daily No Start Date 08/28/2011 Inactive Nexium 40 mg Cap RxNorm: 160523 1 Capsule(s) PO daily No Start Date 08/05/2011 Inactive dicyclomine 10 mg Cap RxNorm: 865553 1 Capsule(s) PO daily No Start Date 07/13/2013 Inactive Synthroid 50 mcg Tab RxNorm: 048639 1 Tablet(s) PO daily No Start Date 06/20/2011 Inactive metformin ER 500 mg 24 hr Tab RxNorm: 124087 2 Tablet(s) PO BID No Start Date 12/16/2011 Inactive Anusol-HC 25 mg Supp ository RxNorm: 0695970 1 Suppository RTL No Start Date 06/08/2012 Inactive daily x 3 days then prnno longer than 10 days in row use Medication Administered Medication Codes Instruc tions Start Date Status Influenza Virus Vaccine 0.5 mL RxNorm: 04/27/2013 No longer Active Rocephin 500 mg Solution for Injection RxNorm: 148438 02/12/2012 No longer A ctive Kenalog 40 mg/mL Susp for Injection RxNorm: 4898883 Milliliter 02/12/2012 No longer Active Influenza Virus [...] (primary) hypertension ICD -10: I10 ICD-9: 401.1 05/02/2017 Encounter for immunization ICD-10: Z 23 ICD-9: V06.6 05/02/2017 Mixed hyperlipidemia ICD-10: E78.2 ICD-9: 272.4 05/02/2017 Type 2 diabetes mell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 ICD-10: E11.9 ICD-9: 250.00 05/02/2017 Candidal stomatitis ICD-10: B37.0 ICD-9: 112.0 03/29/2017 Other malaise ICD-10: R53.81 ICD-9: 780.79 11/06/2016 Type 2 diabetes mellitus with hyperglycemia ICD-10: E11.65 ICD-9: 250.02 11/06/2016 Other fatigue ICD-10: R53.83 ICD-9: 780.79 [...] For Visit Effective Dates Notes diabetes mellitus 05/02/2017 oral pain 03/29/2017 shortness [...] Observation Code Item Item Code Result Date Comp Metabolic Hax181 NA 144 mEq/L 04/30/2017 Comp Metabolic Ivb376 K 4.3 mEq/L 04/30/2017 Comp Metabolic Qvj663 CL 105 mEq/L 04/30/2017 Comp Metabolic Jlx282 CO2 29.0 mEq/L 04/30/2017 Comp Metabolic Mnp035 AN ION GAP 14 04/30/2017 Comp Metabolic Sub483 GL UCOSE 109 mg/dL 04/30/2017 Comp Metabolic Ibv377 Cr eat 1.0 mg/dL 04/30/2017 Comp Metabolic Khv648 eG FR 58 ml/min/1.73m2 04/30 Comp Metabolic Usf221 BUN 17 mg/dL 04/30/2017 Comp Metabolic Wwp900 B/ C Ratio 17.3 Ratio 04/30/2017 Comp Metabolic Fuf078 CA LCIUM 10.1 mg/dL 04/30/2017 Comp Metabolic Idi339 AL K PHOS 47 U/L 04/30/2017 Comp Metabolic Ero409 T(SGOT) 16 U/L 04/30/2017 Comp Metabolic Fwn643 AL T(SGPT) 16 U/L 04/30/2017 Comp Metabolic Ndn531 BI LI T 0.4 mg/dL 04/30/2017 Comp Metabolic Uyl761 AL BUMIN 4.5 g/dL 04/30/2017 Comp Metabolic Yyg574 TP RO 6.7 g/dL 04/30/2017 Comp Metabolic Bzf317 GL OB 2.2 g/dL 04/30/2017 Comp Metabolic Lhf810 A/ G Ratio 2.0 Ratio 04/30/2017 Comp Metabolic Dfr644 Os mo 289 mOsmo 04/30/2017 Cbc With [...] 86.3 fl 04/30/2017 Cbc With Differential Ord2 MCH 28.2 pg 04/30/2017 Cbc With Differential Ord2 Dickson% 6.5 % 04/30/2017 Cbc With Differential Ord2 [...] 1.12 K/ul 04/30/2017 Cbc With Differential Ord2 Dickson ABS# 0.2 K/ul 04/30/2017 Cbc With Differential Ord2 Eos ABS# 0.1 K/ul 04/30/2017 Cbc With Differential Ord2 Baso ABS# 0.0 K/ul 04/30/2017 %Hba1C Muv580 % HbA1c 08353-6 6.7 % 04/30/2017 %Hba1C Abn619 Gluc Ave 146 mg/dL 04/30/2017 Tsh Ord6 hTSH II 1.36 uIU/mL 04/30/2017 Lipid Ord30 CHOL 160 mg/dL 04/30/2017 Lipid Ord30 HDL 51.0 mg/dl 04/30/2017 Lipid Ord30 TRIG 195 mg/dL 04/30/2017 Lipid Ord30 LDL 70 mg/dL 04/30/2017 Lipid Ord30 C/HDL 3.1 Ratio 04/30/2017 Free T4 Rtn240 FREE T4 0.75 ng/dL 04/30/2017 Ferritin Ord22 FERRITIN 89.9 ng/mL 11/09/2016 Parathyroid Hormone Bui530 PTH 36.20 pg/ml 11/09/2016 Tibc Ord40 Iron 75 ug/dl 11/08/2016 Tibc Ord40 UIBC 325 ug/dL 11/08/2016 Tibc Ord40 TIBC 400 ug/dL 11/08/2016 Tibc Ord40 Fe-%Sat 18.8 % 11/08/2016 Comp Metabolic Ppi712 NA 139 mEq/L 09/25/2016 Comp Metabolic Nqf333 K 4.3 mEq/L 09/25/2016 Comp Metabolic Ury229 CL 101 mEq/L 09/25/2016 Comp Metabolic Rfn857 CO2 31.0 mEq/L 09/25/2016 Comp Metabolic Hoq093 AN ION GAP 11 09/25/2016 Comp Metabolic Ast107 GL UCOSE 116 mg/dL 09/25/2016 Comp Metabolic Pmb966 Cr eat 1.1 mg/dL 09/25/2016 Comp Metabolic Mfe922 eG FR 53 ml/min/1.73m2 09/25 Comp Metabolic Kmf097 BUN 22 mg/dL 09/25/2016 Comp Metabolic Qlz212 B/ C Ratio 20.8 Ratio 09/25/2016 Comp Metabolic Axc933 CA LCIUM 10.3 mg/dL 09/25/2016 Comp Metabolic Duw635 AL K PHOS 52 U/L 09/25/2016 Comp Metabolic Mze322 T(SGOT) 16 U/L 09/25/2016 Comp Metabolic Dxj040 AL T(SGPT) 17 U/L 09/25/2016 Comp Metabolic Ptz999 BI LI T 0.3 mg/dL 09/25/2016 Comp Metabolic Gaq366 AL BUMIN 4.7 g/dL 09/25/2016 Comp Metabolic Wxp663 TP RO 6.9 g/dL 09/25/2016 Comp Metabolic Oyd050 GL OB 2.2 g/dL 09/25/2016 Comp Metabolic Zaa740 A/ G Ratio 2.1 Ratio 09/25/2016 Comp Metabolic Zuk172 Os mo 282 mOsmo 09/25/2016 Lipid Ord30 CHOL 182 mg/dL 09/25/2016 Lipid Ord30 HDL 55.0 mg/dl 09/25/2016 Lipid Ord30 TRIG 168 mg/dL 09/25/2016 Lipid Ord30 LDL 93 mg/dL 09/25/2016 Lipid Ord30 C/HDL 3.3 Ratio 09/25/2016 %Hba1C Dmr424 % HbA1c 89646-1 7.0 % 09/25/2016 %Hba1C Ety377 Gluc Ave 154 mg/dL 09/25/2016 Free T4 Cat307 FREE T4 0.80 ng/dL 09/25/2016 Cbc With Differential Ord2 WBC 4.16 K/ul 09/25/2016 Cbc With Differential Ord2 RBC 4.63 M/ul 09/25/2016 Cbc With Differential Ord2 HGB 13.1 g/dl 09/25/2016 Cbc With Differential Ord2 Neut% 59.9 % 09/25/2016 Cbc With Differential Ord2 HCT 39.5 % 09/25/2016 Cbc With Differential Ord2 Lymph% 31.0 % 09/25/2016 Cbc With Differential Ord2 MCV 85.3 fl 09/25/2016 Cbc With Differential Ord2 MCH 28.3 pg 09/25/2016 Cbc With Differential Ord2 Dickson% 8.2 % 09/25/2016 Cbc With Differential Ord2 [...] 1.29 K/ul 09/25/2016 Cbc With Differential Ord2 Dickson ABS# 0.3 K/ul 09/25/2016 Cbc With Differential Ord2 Eos ABS# 0.0 K/ul 09/25/2016 Cbc With Differential Ord2 Baso ABS# 0.0 K/ul 09/25/2016 Tsh Ord6 hTSH II 1.01 uIU/mL 09/25/2016 Tsh Ord6 hTSH II 1.35 uIU/mL 06/04/2016 Comp Metabolic Sxv080 NA 135 mEq/L 06/04/2016 Comp Metabolic Gtz156 K 3.8 mEq/L 06/04/2016 Comp Metabolic Med817 CL 99 mEq/L 06/04/2016 Comp Metabolic Tkb571 CO2 30.0 mEq/L 06/04/2016 Comp Metabolic Kxn903 AN ION GAP 10 06/04/2016 Comp Metabolic Rxv323 GL UCOSE 171 mg/dL 06/04/2016 Comp Metabolic Tdz721 Cr eat 1.0 mg/dL 06/04/2016 Comp Metabolic Qnz893 eG FR 59 ml/min/1.73m2 06/04 Comp Metabolic Cgp321 BUN 22 mg/dL 06/04/2016 Comp Metabolic Gya740 B/ C Ratio 22.4 Ratio 06/04/2016 Comp Metabolic Kbm739 CA LCIUM 10.4 mg/dL 06/04/2016 Comp Metabolic Yhx536 AL K PHOS 68 U/L 06/04/2016 Comp Metabolic Szc517 T(SGOT) 22 U/L 06/04/2016 Comp Metabolic Npb918 AL T(SGPT) 25 U/L 06/04/2016 Comp Metabolic Tub903 BI LI T 0.4 mg/dL 06/04/2016 Comp Metabolic Oig070 AL BUMIN 4.5 g/dL 06/04/2016 Comp Metabolic Bru329 TP RO 7.0 g/dL 06/04/2016 Comp Metabolic Gzb404 GL OB 2.5 g/dL 06/04/2016 Comp Metabolic Vnz989 A/ G Ratio 1.8 Ratio 06/04/2016 Comp Metabolic Fsc000 Os mo 277 mOsmo 06/04/2016 Cbc With [...] 24.0 % 06/04/2016 Cbc With Differential Ord2 Dickson% 7.9 % 06/04/2016 Cbc With Differential Ord2 [...] 1.58 K/ul 06/04/2016 Cbc With Differential Ord2 Dickson ABS# 0.5 K/ul 06/04/2016 Cbc With Differential Ord2 Eos ABS# 0.1 K/ul 06/04/2016 Cbc With Differential Ord2 Baso ABS# 0.1 K/ul 06/04/2016 %Hba1C Iwm435 % HbA1c 16826-0 8.7 % 06/04/2016 %Hba1C Vnb427 Gluc Ave 203 mg/dL 06/04/2016 Free T4 Wzs323 FREE T4 0.84 ng/dL 06/04/2016 Lipid Ord30 CHOL 111 mg/dL 06/04/2016 Lipid Ord30 HDL 51.0 mg/dl 06/04/2016 Lipid Ord30 TRIG 185 mg/dL 06/04/2016 Lipid Ord30 LDL 23 mg/dL 06/04/2016 Lipid Ord30 C/HDL 2.2 Ratio 06/04/2016 Microalbumin Siz937 Micr oAlb <0.7 mg/dL 06/04/2016 Comp Metabolic Iyj115 NA 142 mEq/L 03/12/2016 Comp Metabolic Orc429 K 4.1 mEq/L 03/12/2016 Comp Metabolic Cwz786 CL 103 mEq/L 03/12/2016 Comp Metabolic Ccs058 CO2 30.0 mEq/L 03/12/2016 Comp Metabolic Dzv071 AN ION GAP 13 03/12/2016 Comp Metabolic Zwq438 GL UCOSE 138 mg/dL 03/12/2016 Comp Metabolic Fon804 Cr eat 0.8 mg/dL 03/12/2016 Comp Metabolic Lun669 eG FR 75 ml/min/1.73m2 03/12 Comp Metabolic Nkg405 BUN 18 mg/dL 03/12/2016 Comp Metabolic Tnl459 B/ C Ratio 22.8 Ratio 03/12/2016 Comp Metabolic Knm317 CA LCIUM 9.8 mg/dL 03/12/2016 Comp Metabolic Ozb823 AL K PHOS 83 U/L 03/12/2016 Comp Metabolic Rlp600 T(SGOT) 15 U/L 03/12/2016 Comp Metabolic Oip031 AL T(SGPT) 20 U/L 03/12/2016 Comp Metabolic Zwq736 BI LI T 0.4 mg/dL 03/12/2016 Comp Metabolic Pek369 AL BUMIN 4.2 g/dL 03/12/2016 Comp Metabolic Whw675 TP RO 6.4 g/dL 03/12/2016 Comp Metabolic Igk428 GL OB 2.2 g/dL 03/12/2016 Comp Metabolic Uck311 A/ G Ratio 1.9 Ratio 03/12/2016 Comp Metabolic Bhp587 Os mo 287 mOsmo 03/12/2016 %Hba1C Guy144 % HbA1c 98623-0 7.2 % 03/12/2016 %Hba1C Wov702 Gluc Ave 160 mg/dL 03/12/2016 Comp Metabolic Pes568 NA 138 mEq/L 10/18/2015 Comp Metabolic Dga522 K 4.1 mEq/L 10/18/2015 Comp Metabolic Khz133 CL 97 mEq/L 10/18/2015 Comp Metabolic Jeu793 CO2 32.0 mEq/L 10/18/2015 Comp Metabolic Twf664 AN ION GAP 13 10/18/2015 Comp Metabolic Oox095 GL UCOSE 145 mg/dL 10/18/2015 Comp Metabolic Bbi026 Cr eat 1.1 mg/dL 10/18/2015 Comp Metabolic Biy111 eG FR 50 ml/min/1.73m2 10/17 Comp Metabolic Nfq779 BUN 23 mg/dL 10/18/2015 Comp Metabolic Fzk879 B/ C Ratio 20.4 Ratio 10/18/2015 Comp Metabolic Ykb067 CA LCIUM 10.3 mg/dL 10/18/2015 Comp Metabolic Erh677 AL K PHOS 59 U/L 10/18/2015 Comp Metabolic Oxm564 T(SGOT) 17 U/L 10/18/2015 Comp Metabolic Fwy645 AL T(SGPT) 21 U/L 10/18/2015 Comp Metabolic Xle139 BI LI T 0.4 mg/dL 10/18/2015 Comp Metabolic Eki347 AL BUMIN 4.6 g/dL 10/18/2015 Comp Metabolic Ksw154 TP RO 7.1 g/dL 10/18/2015 Comp Metabolic Rgr296 GL OB 2.5 g/dL 10/18/2015 Comp Metabolic Unb883 A/ G Ratio 1.9 Ratio 10/18/2015 Comp Metabolic Gqo496 Os mo 282 mOsmo 10/18/2015 Tsh Ord6 hTSH II 1.81 uIU/mL 10/18/2015 %Hba1C Lpf177 % HbA1c 78237-5 7.3 % 10/18/2015 %Hba1C Etw353 Gluc Ave 163 mg/dL 10/18/2015 Iron Ord72 Iron 90 ug/dl 10/18/2015 Free T4 Sdw260 FREE T4 0.75 ng/dL 10/18/2015 Cbc With [...] 26.2 % 10/18/2015 Cbc With Differential Ord2 Dickson% 6.8 % 10/18/2015 Cbc With Differential Ord2 MCH 29.0 pg 10/18/2015 Cbc With Differential Ord2 MCHC 32.8 pg 10/18/2015 Cbc With Differential Ord2 Eos% 3.0 % 10/18/2015 Cbc With Differential Ord2 Baso% 0.7 % 10/18/2015 Cbc With Differential Ord2 PLT 360 K/ul 10/18/2015 Cbc With Differential Ord2 RDW 14.9 % 10/18/2015 Cbc With Differential Ord2 Neut ABS# 4.67 K/ul 10/18/2015 Cbc With Differential Ord2 Lymph ABS# 1.93 K/ul 10/18/2015 Cbc With Differential Ord2 Dickson ABS# 0.5 K/ul 10/18/2015 Cbc With Differential [...] Lipid Ord30 C/HDL 2.3 Ratio 10/18/2015 TSH 8105895 TSH 1.042 uIU/ML 12/24/2012 A1C HPLC 5424130 A1C HPLC 92000-9 7.6 % 12/24/2012 ESR 4025929 ESR 2 MM/HR 12/23/2012 CHEM 14 4245523 AST 20 U/L 12/23/2012 CHEM 14 3693812 ALT 24 IU/L 12/23/2012 CHEM 14 1444058 BUN 16 MG/DL 12/23/2012 CHEM 14 3477029 ALBUMIN 4.7 GM/DL 12/23/2012 CHEM 14 3072544 CHLORIDE 102 MMOL/L 12/23/2012 CHEM 14 0470450 BILI TOT 0.3 MG/DL 12/23/2012 CHEM 14 5638040 ALK PHOS 109 U/L 12/23/2012 CHEM 14 5009288 SODIUM 142 MMOL/L 12/23/2012 CHEM 14 1238489 CREATINI NE 0.93 MG/DL 12/23/2012 CHEM 14 7559946 CALCIUM 10.0 MG/DL 12/23/2012 CHEM 14 8147305 POTASSIUM 3.7 MMOL/L 12/23/2012 CHEM 14 7151738 PROT TOT 7.2 GM/DL 12/23/2012 CHEM 14 7460034 GLUCOSE 116 MG/DL 12/23/2012 CHEM 14 3595395 BICARB 32 MMOL/L 12/23/2012 CHEM 14 1834021 ANION GAP 8 MEQ/L 12/23/2012 GFR CALC 1717729 GFR AA >60 ML/MIN 12/23/2012 GFR CALC 5011168 GFR NON -AA 59.0L ML/MIN 3 CBC 9890564 WBC 5.5 10e9/L 12/23/2012 CBC 4343515 RBC 4.90 10e12/L 12/23/2012 CBC 0351033 HGB 14.1 g/dL 12/23/2012 CBC 1968549 HCT DET 42.4 % 12/23/2012 CBC 8593675 MCV 86.5 fL 12/23/2012 CBC 1677827 MCH 28.8 pg 12/23/2012 CBC 0308782 MCHC 33.3 g/dL 12/23/2012 CBC 9837469 PLT 320 10e9/L 12/23/2012 CBC 6236525 MPV 9.9 fL 12/23/2012 CBC 5389422 BRANDIE % 63.7 % 12/23/2012 CBC 7576729 LY % 24.6 % 12/23/2012 CBC 7911089 MON % 6.3 % 12/23/2012 CBC 2721529 EOS % 4.7 % 12/23/2012 CBC 5079839 BASO % 0.7 % 12/23/2012 CBC 1767865 RDW 15.0 % 12/23/2012 CBC 5655745 ABS BRANDIE 3.50 10e9/L 12/23/2012 CBC 3533099 ABS LYMPH 1.35 10e9/L 12/23/2012 CBC 7825923 ABS MONO 0.35 10e9/L 12/23/2012 CBC 6702765 ABS EOS 0.26 10e9/L 12/23/2012 CBC 5133352 ABS BASO 0.04 10e9/L 12/23/2012 CBC 5956297 RDW-SD 47.1 fL 12/23/2012 CRP 0216592 CRP 0.1 MG/DL 12/23/2012 URINALYSIS NONAUTO W/O SCOPE 73925 Specific [place] 1.005 DateTime(Free Text in Apr) URINALYSIS NONAUTO W/O SCOPE 16690 PH 7.5 DateTime(Free Mina t in Apr) URINALYSIS NONAUTO W/O SCOPE 31445 GLUCOSE NEG DateTime(Free Mina t in Aprima) URINALYSIS NONAUTO W/O SCOPE 66287 Protein NEG DateTime(Free Mina t in Aprima) URINALYSIS NONAUTO W/O SCOPE 17794 Blood NEG DateTime(Free Mina t in Aprima) URINALYSIS NONAUTO W/O SCOPE 59710 Bilirubin NEG DateTime(Free Mina t in Aprima) URINALYSIS NONAUTO W/O SCOPE 12468 Ketones NEG DateTime(Free Mina t in Aprima) URINALYSIS NONAUTO W/O SCOPE 38704 Urobilinogen NEG DateTime(Free Text in Aprima) URINALYSIS NONAUTO W/O SCOPE 04655 Nitrite NEG DateTime(Free Mina t in Aprima) URINALYSIS NONAUTO W/O SCOPE 10806 Leukocytes NEG DateTime(Free Text in Aprima) Review of Systems System Result Effective Dates Constitutional No night sweats 05/02/2017 Constitutional No [...] masses 04/09/2013 None Full Exam - General 1995 Respiratory [...] developed 02/12/2012 None Full Exam - General 1995 [...] PRSV 4 VA L 3 YRS+ CPT-4: 29947 05/02/2017 ADMIN INFLUENZA VIRU S VAC CPT-4: G0008 05/02/2017 ADMIN PNEUMOCOCCAL V ACCINE SNOMED CT: 18948846 CPT-4: G0009 05/02/2017 PNEUMOCOCCAL VACC [address]: 84774794 CPT-4: 39576 05/02/2017 FLU VAC NO PRSV 4 VA L 3 YRS+ CPT-4: 45867 05/06/2014 ADMIN PNEUMOCOCCAL V ACCINE SNOMED CT: 76289008 CPT-4: G0009 05/06/2014 PRESCRIP TRANSMIT A ERX SY CPT-4: G8553 06/12/2013 PRESCRIP TRANSMIT A ERX SY CPT-4: G8553 05/20/2013 ADMIN INFLUENZA VIRU S VAC CPT-4: G0008 04/27/2013 FLULAVAL VACC, 3 YRS & >, IM CPT-4: Q2036 04/27/2013 PRESCRIP TRANSMIT A ERX SY CPT-4: G8553 04/09/2013 PRESCRIP TRANSMIT A ERX SY CPT-4: G8553 01/26/2013 ROUTINE VENIPUNCTURE CPT-4: 43498 12/23/2012 PRESCRIP TRANSMIT A ERX SY CPT-4: G8553 06/09/2012 ROCEPHIN, PER 250 MG CPT-4: J0696 02/12/2012 TRIAMCINOLONE ACET I [place] NOS CPT-4: J3301 02/12/2012 PRESCRIP TRANSMIT A ERX SY CPT-4: G8553 02/12/2012 ROCEPHIN, PER 250 MG CPT-4: J0696 02/05/2012 URINALYSIS NONAUTO W /O SCOPE CPT-4: 95012 11/14/2011 REMOVE IMPACTED EAR WAX UNI CPT-4: 33295 08/28/2011 PRESCRIP TRANSMIT A ERX SY CPT-4: G8553 08/28/2011 ROCEPHIN, PER 250 MG CPT-4: J0696 08/23/2011 TRIAMCINOLONE ACET I [place] NOS CPT-4: J3301 08/23/2011 THER/PROPH/DIAG INJ SC/IM CPT-4: 31252 08/23/2011 PRESCRIP TRANSMIT A ERX SY CPT-4: G8553 08/23/2011 OCCULT BLOOD FECES CPT- 4: 59990 06/19/2011 URINALYSIS NONAUTO W /O SCOPE CPT-4: 77913 06/19/2011 PRESCRIP TRANSMIT A ERX SY CPT-4: G8553 06/19/2011 ADMIN INFLUENZA VIRU S VAC CPT-4: G0008 06/05/2011 FLULAVAL VACC, 3 YRS & >, IM CPT-4: Q2036 06/05/2011 Vital Signs Date Vital 05/02/2017 Blood Pressure 1: 122/64 Code: 8480-6 BMI: 29.5 Code: 77399-4 Heart Rate 1: 81 bpm Height: 5'3" SpO2: 97% Weight: 169 lbs 03/29/2017 Blood Pressure 1: 134/68 Code: 8480-6 BMI: 30.0 Code: 44725-8 Heart Rate 1: 89 bpm Height: 5'3" SpO2: 98% Weight: 172 lbs 11/15/2016 Blood Pressure 1: 148/72 Code: 8480-6 BMI: 29.5 Code: 40537-8 Heart Rate 1: 102 bpm Height: 5'3" SpO2: 98% Weight: 169 lbs 11/06/2016 Blood Pressure 1: 140/78 Code: 8480-6 BMI: 29.8 Code: 09279-7 Heart Rate 1: 100 bpm Height: 5'3" SpO2: 97% Weight: 171 lbs 08/01/2016 Blood Pressure 1: 128/56 Code: 8480-6 BMI: 30.3 Code: 50085-3 Heart Rate 1: 88 bpm Height: 5'3" SpO2: 97% Weight: 174 lbs 07/02/2016 Blood Pressure 1: 126/62 Code: 8480-6 BMI: 31.0 Code: 92326-6 Heart Rate 1: 101 bpm Height: 5'3" SpO2: 97% Weight: 178 lbs 06/04/2016 Blood Pressure 1: 136/72 Code: 8480-6 BMI: 31.4 Code: 66190-1 Heart Rate 1: 103 bpm Height: 5'3" SpO2: 98% Weight: 180 lbs 03/26/2016 Blood Pressure 1: 134/74 Code: 8480-6 BMI: 30.7 Code: 86859-0 Heart Rate 1: 93 bpm Height: 5'3" SpO2: 98% Weight: 176 lbs 11/23/2015 Blood Pressure 1: 128/77 Code: 8480-6 BMI: 30.2 Code: 06835-8 Heart Rate 1: 74 bpm Height: 5'3" SpO2: 96% Weight: 173 lbs 10/14/2015 Blood Pressure 1: 122/72 Code: 8480-6 BMI: 30.3 Code: 49165-8 Heart Rate 1: 76 bpm Height: 5'3" SpO2: 97% Weight: 174 lbs 03/31/2015 Blood Pressure 1: 140/68 Code: 8480-6 BMI: 30.0 Code: 88764-9 Heart Rate 1: 93 bpm Height: 5'3" SpO2: 94% Weight: 172 lbs 08/31/2014 Blood Pressure 1: 122/74 Code: 8480-6 BMI: 31.2 Code: 53874-0 Heart Rate 1: 76 bpm Height: 5'3" Weight: 179 lbs 08/10/2014 Blood Pressure 1: 138/62 Code: 8480-6 BMI: 31.0 Code: 66111-6 Heart Rate 1: 80 bpm Height: 5'3" Weight: 178 lbs 05/06/2014 BMI: 31.2 Code: 58681-7 Height: 5'3" Weight: 179 lbs 04/14/2014 Blood Pressure 1: 136/68 Code: 8480-6 BMI: 31.4 Code: 06725-1 Heart Rate 1: 74 bpm Height: 5'3" Weight: 180 lbs 11/10/2013 Blood Pressure 1: 102/50 Code: 8480-6 BMI: 30.7 Code: 16296-7 Heart Rate 1: 76 bpm Height: 5'3" Weight: 176 lbs 07/14/2013 Blood Pressure 1: 136/80 Code: 8480-6 BMI: 30.3 Code: 49413-8 Heart Rate 1: 70 bpm Height: 5'3" Weight: 174 lbs 06/12/2013 Blood Pressure 1: 142/82 Code: 8480-6 BMI: 30.9 Code: 05086-5 Heart Rate 1: 72 bpm Height: 5'3" Weight: 177 lbs 05/20/2013 Blood Pressure 1: 132/70 Code: 8480-6 BMI: 31.2 Code: 53634-7 Heart Rate 1: 88 bpm Height: 5'3" Weight: 179 lbs 04/09/2013 Blood Pressure 1: 136/70 Code: 8480-6 BMI: 31.0 Code: 02936-7 Heart Rate 1: 100 bpm Height: 5'3" Weight: 178 lbs 01/26/2013 Blood Pressure 1: 118/56 Code: 8480-6 BMI: 30.7 Code: 34087-1 Heart Rate 1: 87 bpm Height: 5'3" Weight: 176 lbs 12/23/2012 Blood Pressure 1: 136/76 Code: 8480-6 Heart Rate 1: 104 bpm Respiratory Rate: 20 bpm Weight: 178 lbs 12/15/2012 Blood Pressure 1: 150/82 Code: 8480-6 Heart Rate 1: 100 bpm Temperature: 36.7 (C) / 98.1 (F) Weight: 178 lbs 10/22/2012 Blood Pressure 1: 138/82 Code: 8480-6 BMI: 30.2 Code: 65488-5 Heart Rate 1: 100 bpm Height: 5'3" Weight: 173 lbs 08/21/2012 Blood Pressure 1: 136/70 Code: 8480-6 BMI: 30.6 Code: 70333-1 Heart Rate 1: 98 bpm Height: 5'3" Weight: 175 lbs 8 oz 07/17/2012 Blood Pressure 1: 152/68 Code: 8480-6 BMI: 29.9 Code: 68025-1 Heart Rate 1: 92 bpm Height: 5'3" [...] 1: 122/68 Code: 8480-6 BMI: 29.5 Code: 85056-8 Heart Rate 1: 96 bpm Height: 5'3" [...] 1: 130/72 Code: 8480-6 BMI: 30.4 Code: 87393-6 Heart Rate 1: 92 bpm Height: 5'3" Respiratory Rate: 16 bpm Weight: 174 lbs 8 oz 06/19/2011 Blood Pressure 1: 122/70 Code: 8480-6 BMI: 30.2 Code: 87774-5 Heart Rate 1: 104 bpm Height: 5'3" Weight: 173 lbs 06/05/2011 Blood Pressure 1: 100/50 Code: 8480-6 BMI: 29.6 Code: 32974-9 Heart Rate 1: 96 bpm Height: 5'3" [...] recently started s eeking counseling from her scalemaker. depression Pertinent Findings anxiety 08/21/2012 None depression [...] stre ss 07/17/2012 Pt states that her husalan d is [...] recently started s eeking counseling from her scalemaker. depression Pertinent Findings anxiety 07/17/2012 None depression [...] Encounters Encounter Performer Loca tion Codes Date ([id number]) [id number] EST. P ATIENT, LEVEL IV Diagnosis: Type 2 diabetes mell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[ICD10: E11.9] Diagnosis: Mixed hyperlipidemia[ICD10: E78.2] Diagnosis: Essential (primary) hypertension[ICD10: I10] Diagnosis: Encounter for immunization[ICD10: Z23] [facility] CPT-4: 40644 05/02/2017 ([id number]) [id number] EST. P ATIENT, LEVEL III Diagnosis: Candidal stomatitis[ICD10: B37.0] Riya Cheung MD, [facility] CPT- 4: 64167 03/29/2017 ([id number]) 22135 EST. P ATIENT, LEVEL IV Diagnosis: Essential (primary) hypertension[ICD10: I10] Diagnosis: Type 2 diabetes mell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[ICD10: E11.9] Amy Cheung MD, [facility] CPT-4: 01966 11/15/2016 [id number] EST. PATIENT, LEVEL III Diagnosis: Other malaise[ICD10: R53.81] Diagnosis: Other fatigue[ICD10: R53.83] Diagnosis: Type 2 diabetes mellitus with hyperglycemia[ICD10: E11.65] Diagnosis: Essential (primary) hypertension[ICD10: I10] Diagnosis: Weakness[ICD10: R53.1] Mariana Cheung MD, [facility] CPT-4: 67872 11/06/2016 ([id number]) 51417 EST. P ATIENT, LEVEL III Diagnosis: Type 2 diabetes mellitus with hyperglycemia[ICD10: E11.65] Amy Cheung MD[facility] CPT-4: 53325 08/01/2016 ([id number]) 73642 EST. P ATIENT, LEVEL III Diagnosis: Type 2 diabetes mellitus with hyperglycemia[ICD10: E11.65] Diagnosis: Gastroparesis[ICD10: K31.84] Amy Cheung MD, [facility] CPT-4: 67092 07/02/2016 ([id number]) 86981 EST. P ATIENT, LEVEL IV Diagnosis: Type 2 diabetes mellitus with hyperglycemia[ICD10: E11.65] Diagnosis: Hypothyroidism, unspecified[ICD10: E03.9] Amy Cheung MD, [facility] CPT-4: 89690 06/04/2016 ([id number]) 22518 EST. P ATIENT, LEVEL IV Diagnosis: Type 2 diabetes mellitus with hyperglycemia[ICD10: E11.65] Diagnosis: Mixed hyperlipidemia[ICD10: E78.2] Diagnosis: Essential (primary) hypertension[ICD10: I10] Amy Cheung MD, C CPT-4: 57332 03/26/2016 ([id number]) 36760 EST. P ATIENT, LEVEL III Diagnosis: Essential (primary) hypertension[ICD10: I10] Diagnosis: Adjustment disorder with mixed anxiety and depressed mood[ICD10: F43.23] Amy Cheung MD, [facility] CPT-4: 12086 11/23/2015 ([id number]) 37723 EST. P ATIENT, LEVEL IV Diagnosis: Type 2 diabetes mellitus with hyperglycemia[ICD10: E11.65] Diagnosis: Panic disorder [episodic paroxysmal anxiety] without agoraphobia[ICD10: F41.0] Diagnosis: Adjustment disorder with mixed anxiety and depressed mood[ICD10: F43.23] Diagnosis: Essential (primary) hypertension[ICD10: I10] Amy Cheung MD, C CPT-4: 99567 10/14/2015 ([id number]) 47290 EST. P ATIENT, LEVEL IV Diagnosis: DIABETES TYPE II[ICD9: 250.00] Diagnosis: GENERALIZED ANXIETY DISEASE[ICD9: 300.02] Diagnosis: ESSENTIAL HYPERTENSION[ICD9: 401.9] Diagnosis: ESOPHAGEAL REFLUX[ICD9: 530.81] Amy Cheung MD, [facility] CPT-4: 43323 03/31/2015 ([id number]) 67805 EST. P ATIENT, LEVEL IV Diagnosis: DM W/O COMPLICATION TYPE II, UNCONTROLLED[ICD9: 250.02] Diagnosis: ESSENTIAL HYPERTENSION[ICD9: 401.9] Diagnosis: DEPRESSIVE DISORDER NEC[ICD9: 311] Diagnosis: GENERALIZED ANXIETY DISEASE[ICD9: 300.02] Amy Cheung MD, C CPT-4: 90742 08/31/2014 ([id number]) 99113 EST. P ATIENT, LEVEL IV Diagnosis: ESSENTIAL HYPERTENSION[ICD9: 401.9] Diagnosis: DIABETES TYPE II[ICD9: 250.00] Diagnosis: Constipation - functional[ICD9: 564.09] Diagnosis: Abdominal pain[ICD9: 789.00] Amy Cheung MD, [facility] CPT-4: 82992 08/10/2014 ([id number]) 94650 EST. P ATIENT, LEVEL III Diagnosis: Flu vaccine need[ICD9: V04.81] Diagnosis: Neck pain[ICD9: 723.1] Diagnosis: Chronic allergic rhinitis[ICD9: 477.9] Amy Cheung MD, [facility] CPT-4: 68737 05/06/2014 ([id number]) 48362 EST. P ATIENT, LEVEL IV Diagnosis: DM W/O COMPLICATION TYPE II, UNCONTROLLED[ICD9: 250.02] Diagnosis: GENERALIZED ANXIETY DISEASE[ICD9: 300.02] Diagnosis: ESSENTIAL HYPERTENSION[ICD9: 401.9] Diagnosis: Neck pain[ICD9: 723.1] Amy Cheung MD, [facility] CPT-4: 42238 04/14/2014 ([id number]) 90828 EST. P ATIENT, LEVEL IV Diagnosis: ESSENTIAL HYPERTENSION[SNOMED: 86669091] Diagnosis: DIABETES TYPE II[SNOMED: 479133527] Diagnosis: Iliotibial band syndrome[ICD9: 728.89] Diagnosis: DEPRESSIVE DISORDER NEC[ICD9: 311] Diagnosis: GENERALIZED ANXIETY DISEASE[ICD9: 300.02] Amy Cheung MD, [facility] CPT-4: 11503 11/10/2013 ([id number]) 32618 EST. P ATIENT, LEVEL III Diagnosis: DIABETES TYPE II[SNOMED: 559694123] Amy Cheung MD, [facility] CPT- 4: 28654 07/14/2013 ([id number]) 06466 EST. P ATIENT, LEVEL IV Diagnosis: ESSENTIAL HYPERTENSION[SNOMED: 26386521] Diagnosis: DM W/O COMPLICATION TYPE II, UNCONTROLLED[SNOMED: 38072000] Amy Cheung MD, [facility] CPT-4: 58951 06/12/2013 ([id number]) 23061 EST. P ATIENT, LEVEL III Diagnosis: DIABETES TYPE II[SNOMED: 919725044] Amy Cheung MD, [facility] CPT- 4: 71303 05/20/2013 ([id number]) 96581 EST. P ATIENT, LEVEL IV Diagnosis: ESSENTIAL HYPERTENSION[SNOMED: 64684049] Diagnosis: HYPERLIPIDEMIA[ICD9: 272.4] Diagnosis: Type II diabetes mellitus, uncontrolled[SNOMED: 42453821] Amy Cheung MD, C CPT-4: 65676 04/09/2013 ([id number]) 89917 EST. P ATIENT, LEVEL III Diagnosis: ESSENTIAL HYPERTENSION[SNOMED: 06584140] Diagnosis: ENCNTR LONG-RX USE NEC[ICD9: V58.69] Diagnosis: IMPACTED CERUMEN[ICD9: 380.4] [facility] CPT-4: 59094 01/26/2013 ([id number]) 76385 EST. P ATIENT, LEVEL IV Diagnosis: DIABETES TYPE II[SNOMED: 772229284] Diagnosis: ESSENTIAL HYPERTENSION[SNOMED: 70744639] Diagnosis: Polymyalgia[ICD9: 725] [facility] CPT-4: 59917 12/23/2012 ([id number]) 85589 EST. P ATIENT, LEVEL III Diagnosis: ACUTE MAXILLARY SINUSITIS[ICD9: 461.0] Diagnosis: COUGH[ICD9: 786.2] [facility] CPT-4: 30559 12/15/2012 ([id number]) 68897 EST. P ATIENT, LEVEL III Diagnosis: ANAL OR RECTAL PAIN[ICD9: 569.42] Diagnosis: Bruising[ICD9: 924.9] Diagnosis: Hip pain[ICD9: 719.45] [facility] CPT-4: 23798 10/22/2012 ([id number]) 46895 EST. P ATIENT, LEVEL IV Diagnosis: ESSENTIAL HYPERTENSION[SNOMED: 24080697] Diagnosis: DIABETES TYPE II[SNOMED: 392266336] [facility] CPT- 4: 41083 08/21/2012 ([id number]) 70422 EST. P ATIENT, LEVEL IV Diagnosis: DIABETES TYPE II[SNOMED: 712582117] Diagnosis: DEPRESSIVE DISORDER NEC[ICD9: 311] [facility] CPT- 4: 33331 07/17/2012 ([id number]) 89356 EST. P ATIENT, LEVEL III Diagnosis: ESSENTIAL HYPERTENSION[SNOMED: 97290489] Diagnosis: DEPRESSIVE DISORDER NEC[ICD9: 311] [facility] CPT- 4: 68684 07/08/2012 36083 EST. PATIENT, LEVEL IV Diagnosis: ESSENTIAL HYPERTENSION[SNOMED: 27905351] Diagnosis: DIABETES TYPE II[SNOMED: 168462529] Amy Cheung MD, [facility] CPT- 4: 93256 06/09/2012 ([id number]) 58621 EST. P ATIENT, LEVEL III Diagnosis: Acute sinusitis[ICD9: 461.9] Diagnosis: FEVER NOS[ICD9: 780.60] Amy Cheung MD, [facility] CPT-4: 50250 02/12/2012 ([id number]) 96679 EST. P ATIENT, LEVEL III Diagnosis: Otalgia of both ears[ICD9: 388.70] Diagnosis: Hemorrhoids[ICD9: 455.6] Diagnosis: Rectal or anal pain[ICD9: 569.42] Amy Cheung MD [facility] CPT-4: 28358 02/05/2012 ([id number]) 09169 EST. [facility] Diagnosis: Dysuria[ICD9: 788.1] Diagnosis: ACUTE MAXILLARY SINUSITIS[ICD9: 461.0] Diagnosis: Allergic rhinitis[ICD9: 477.9] Amy Cheung MD [facility] CPT-4: 66750 11/14/2011 ([id number]) 13515 EST. P ATIENT, LEVEL IV Diagnosis: DIABETES TYPE II[SNOMED: 702930702] Diagnosis: Cough[ICD9: 786.2] Diagnosis: FEVER NOS[ICD9: 780.60] Amy Cheung MD [facility] CPT-4: 10165 10/08/2011 38744 EST. PATIENT, LEVEL IV Diagnosis: OTHER CONSTIPATION[ICD9: 564.09] Diagnosis: IMPACTED CERUMEN[ICD9: 380.4] Diagnosis: Recurrent sinusitis[ICD9: 473.9] Amy Cheung MD, [facility] CPT-4: 76037 08/28/2011 49839 EST. PATIENT, LEVEL IV Diagnosis: Neck pain, acute[ICD9: 723.1] Diagnosis: Cough[ICD9: 786.2] Diagnosis: Cerumen impaction[ICD9: 380.4] Amy Cheung MD, [facility] CPT-4: 94199 08/23/2011 14300 EST. PATIENT, LEVEL IV Diagnosis: ESSENTIAL HYPERTENSION[SNOMED: 57135284] Diagnosis: HYPERLIPIDEMIA[ICD9: 272.4] Diagnosis: DIABETES TYPE II[SNOMED: 710194047] Diagnosis: DEPRESSIVE DISORDER NEC[ICD9: 311] Diagnosis: 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[ICD9: 357.7] Amy Cheung MD, [facility] CPT-4: 27965 07/24/2011 46826 EST. PATIENT, LEVEL IV Diagnosis: Abdominal pain[ICD9: 789.00] Diagnosis: Hematochezia[ICD9: 578.1] Diagnosis: Back pain[ICD9: 724.5] Amy Cheung MD, [facility] CPT-4: 70808 06/19/2011 59722 EST. 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] Diagnosis: VACCIN FOR INFLUENZA[ICD9: V04.81] Diagnosis: DEPRESSIVE DISORDER NEC[ICD9: 311] Diagnosis: DIABETES TYPE II[SNOMED: 005308082] Amy Cheung MD, [facility] CPT- 4: 98105 06/05/2011 Plan of Care Planned Activity Notes C odes Status Date Visit Plan: Diabetes Mellitus - eleuterio harper [...] today 05/02/2017 Appointment: Amy Cheung WPtel: [phone] [facility] [place] (15 min) Moderate 05/02/2017 Patient Education: Patient Medication Summary Completed 05/02/2017 Appointment: Amy Cheung WPtel: [phone] [facility] [place] (15 min) Moderate 04/15/2017 Visit Plan: Thrush-discussed natura l and expected course of this diagnosis and to alert me if symptoms do not follow expected course, or if any worse. RX sent to patient's pharmacy. Patient verbalized understanding of plan. 03/29/2017 Appointment: Riya Sheikh WPtel: [phone] [phone] [place] (30 min) Complex 03/29/2017 Patient Education: Patient Medication Summary Completed 03/29/2017 Patient Education: Obesity Completed 03/29/2017 [phone] [place] ([facility] Moderate 03/14/2017 Visit [...] home. 11/15/2016 Appointment: Amy Cheung WPtel: [phone] [facility] [place] (15 min) Moderate 11/15/2016 Patient Education: Patient Medication Summary Completed 11/15/2016 [facility]ment: [phone] ([facility] min) Moderate 11/07/2016 Visit Plan: Fatigue, [...] control. 11/06/2016 [phone] [facility] Complex 11/06/2016 Patient Education: Patient Medication Summary Completed 11/06/2016 Patient Education: Patient Medication Summary Completed 09/19/2016 Patient Education: Patient Medication Summary Completed 08/22/2016 Care Plan: Comp Metabolic Pending 08/22/2016 Care Plan: %Hba1C she can have drawn anytime after 09/04/16 LOINC : 51446-7 Pending 08/22/2016 Visit Plan: Diabetes Mellitus - [...] clinic. 08/01/2016 Appointment: Amy Cheung WPtel: [phone] [facility] [place] (15 min) Moderate 08/01/2016 Patient Education: Patient Medication Summary Completed 08/01/2016 Appointment: Amy Cheung WPtel: [phone] [facility] [place] (15 min) Moderate 07/09/2016 Visit Plan: [...] motility 07/02/2016 Appointment: Amy Cheung WPtel: [phone] [facility] (15 min) Moderate 07/02/2016 Patient Education: Patient [...] control. 06/04/2016 Appointment: Amy Cheung WPtel: [phone] [facility] [place] (15 min) Moderate 06/04/2016 Patient Education: [...] to medications. 03/26/2016 Appointment: [facility] ([facility] min) Moderate 03/26/2016 Patient Education: [...] Completed 10/14/2015 Appointment: Amy Cheung WPtel: [phone] [facility] [place] (15 min) Moderate 10/13/2015 Appointment: Amy Cheung WPtel: [phone] [facility] (15 min) Moderate 05/09/2015 Visit Plan: Diabetes [...] WPtel: [phone] [facility] [place] (15 min) Moderate 03/31/2015 Patient Education: Patient Medication Summary Completed 03/31/2015 Patient Education: Hypertension Completed 03/31/2015 Appointment: (15 min) Moderate 02/11/2015 Appointment: Amy Cheung WPtel: [phone] [facility] [facility] 09/29/2014 Visit Plan: Diabetes Mellitus - con [...] months. 08/31/2014 Appointment: Amy Cheung WPtel: [phone] [facility] Follow up 08/31/2014 [...] Hypertension Completed 08/10/2014 Appointment: Amy Cheung WPtel: [facility]2 [facility] Follow up 05/10/2014 Visit Plan: Allergies - [...] be ordered. 05/06/2014 Appointment: Amy Cheung WPtel: [facility] [place] [phone] Follow up 05/06/2014 Patient Education: Patient Medication Summary Completed 05/06/2014 Patient Education: .Cervicalgia Neck Pain Completed 05/06/2014 Appointment: Amy Cheung WPtel: [address] [place], [place] [phone] Follow up 05/05/2014 Visit Plan: Hypertension - [...] the neck. 04/14/2014 Appointment: Amy Cheung WPtel: [facility]0 [facility] Follow up 04/14/2014 [...] band exercises. 11/10/2013 Appointment: Amy Cheung WPtel: [address] [place] [address] Other 11/10/2013 Patient Education: Patient Medication Summary [...] monitor symptoms. 07/14/2013 Appointment: Amy Cheung WPtel: [facility]5 [facility] [place] Other 07/14/2013 Patient Education: Patient Medication Summary Completed 07/14/2013 Appointment: Riya Sheikh WPtel: [facility]7 [phone] Follow up 07/13/2013 Visit Plan: Hypertension - [...] control. 06/12/2013 Appointment: Riya Sheikh WPtel: [phone] [phone] Other 06/12/2013 Patient Education: Patient [...] to patient. 05/20/2013 Appointment: Amy Cheung WPtel: [phone] [facility] [place] Follow up 05/20/2013 Patient Education: Patient Medication Summary Completed 05/20/2013 Appointment: Amy Cheung WPtel: [phone] [facility] [place] Follow up 05/07/2013 Appointment: [phone] [place] [facility] Draw 04/27/2013 Patient Education: [...] a copy of this note to her [employer] Supervisor - Dr. Kraus as he will ultimately [...] restarted. 04/09/2013 Appointment: [phone] [place] Follow up 04/09/2013 Patient Education: Patient Medication Summary Completed 04/09/2013 Patient Education: Hypertension Completed 04/09/2013 Appointment: [phone] [place] Follow up 03/30/2013 Visit Plan: [...] today 01/26/2013 Appointment: Amy Cheung WPtel: [phone] [facility] Other 01/26/2013 Patient Education: Patient Medication Summary [...] home. 12/23/2012 Appointment: Amy Cheung WPtel: [phone] [facility] Follow up 12/23/2012 Patient Education: Patient Medication Summary Completed 12/23/2012 Patient Education: Hypertension Completed 12/23/2012 Visit Plan: Sinusitis - Pt has acut e infection - pain in face, maxillary region, Pt informed to use decongestant, RX given to patient, sinus rinses also recommended. Call if symptoms do not show improvement. 12/15/2012 Appointment: Amy Cheung WPtel: [phone] [phone] [place] Sick 12/15/2012 Patient Education: Patient Medication Summary Completed 12/15/2012 Visit Plan: Bruising and pain post fall- with hip pain - recommended pt to have xray of hips and pelvis and lumbar spine as she is having the pain in her hips post fall. 10/22/2012 Appointment: Amy Cheung WPtel: [facility]5 [facility] [place] Other 10/22/2012 Patient Education: Patient Medication Summary Completed 10/22/2012 Appointment: Amy Cheung WPtel: [facility]1 [facility] Follow up 09/30/2012 Visit Plan: Hypertension - [...] less controlled. 08/21/2012 Appointment: Amy Cheung WPtel: [facility]5 [facility] Follow up 08/21/2012 [...] expressed understanding. 07/17/2012 Appointment: Amy Cheung WPtel: [facility] [place] [phone] Follow up 07/17/2012 Patient Education: Patient Medication [...] issues today. 07/08/2012 Appointment: Amy Cheung WPtel: [facility] [address] Other 07/08/2012 Patient Education: Patient Medication [...] labs checked. 06/09/2012 Appointment: Amy Cheung WPtel: [facility]6 [facility] [place] Other 06/09/2012 Patient Education: Patient Medication Summary Completed 06/09/2012 Patient Education: High Blood Pressure: Essential Hypertension Completed 06/09/2012 Visit Plan: Sinusitis - Pt has acut e infection - pain in face, maxillary region, Pt informed to use decongestant, RX given to patient, sinus rinses also recommended. Call if symptoms do not show improvement. 02/12/2012 Appointment: Amy Cheung WPtel: [address] [place], [place] [phone] [place] Other 02/12/2012 Patient Education: Patient Medication [...] in place. 02/05/2012 Appointment: Amy Cheung WPtel: [address] [place], [place] [phone] Other 02/05/2012 Patient Education: Patient [...] any worse. Check your [facility] labs at [facility]we will call you with the results. Allergies - chronic - recommended pt to use allergy medication as prescribed. Pt has been counseled as the the appropriate use of the medication. Pt to call if allergy symptoms are not controlled with the medication. Dysuria - UA negative 11/14/2011 Appointment: Amy Cheung WPtel: [facility]0 [facility] [place] Other 11/14/2011 Appointment: Amy Cheung WPtel: [address] [place], [place] [phone] Other 11/14/2011 Patient Education: Patient Medication Summary [...] today. 10/08/2011 Appointment: Amy Cheung WPtel: [phone] [facility]66[facility] Other 10/08/2011 Patient Education: Patient [...] 08/28/2011 Appointment: Amy Cheung WPtel: [phone] [facility] Other 08/28/2011 Patient Education: Patient Medication Summary [...] in readings. 07/24/2011 Appointment: [facility] Che[facility]Ptel: [facility] [facility] 07/24/2011 Patient Education: Patient Medication Summary [...] lower back. 06/19/2011 Appointment: Amy Cheung WPtel: [address] [place] [address] Other 06/19/2011 Patient Education: Patient Medication Summary [...] neuropathic symptoms. 06/05/2011 Appointment: Amy Cheung WPtel: [address] [place] [address] Other 06/05/2011 Patient Education: Patient Medication Summary [...] a copy of this note to her [employer] Supervisor - Dr. Kraus as he will ultimately [...] the pain in her hips post fall. I sent prescriptions to [facility] for the following medications: LOSARTAN 25MG DAILY [...] allow for greater blood glucose control. . Fatigue, malaise, diaphoresis, weakness - [...] she reports that she feels stable. . Constipation - unc ontrolled - I [...] any worse. [facility] your [facility] labs [facility]we will call you with the results. [...] any worse. Check your [facility] labs at [facility]we will call you with the results. [...]
--- OUTSIDE RECORDS SUMMARY | 2019-08-12 23:10 | XMS REPORT | Continuity of Care Document ---
Author Organization Unknown Address Unknown Phone Unavailable Allergies Active Description Code Type Severity Reaction Onset Reported/Identified Relationship to Patient Clinical Status Yes No Known Drug Allergies [id number] Drug Allergy Unknown N/A 02/26/2008 Yes ramipril [id number] Drug Allergy Mild N/A 01/22/2009 Medications There is no data. Problems Date Dx Coded Attending Type Code Diagnosis Diagnosed By 09/17/2011 Ot 724.5 BACK ACHE NOS 09/17/2011 Ot 787.91 HUSEYIN RRHEA 09/17/2011 Ot 789.00 ABD OMINAL PAIN, UNSPECIFIED SITE 01/07/2013 FRANCISCO TRUJILLO MD Ot 250. 00 DIAB SRI WO COMPL, TYPE II OR UNSPEC TY 01/07/2013 FRANCISCO TRUJILLO MD Ot 272. 4 HYPERLIPIDEMIA NEC/NOS 01/07/2013 FRANCISCO TRUJILLO MD Ot 300. 00 ANXIETY STATE NOS 01/07/2013 FRANCISCO TRUJILLO MD Ot 401. 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 09 RESPIRATORY ABNORM NEC 01/07/2013 FRANCISCO TRUJILLO MD Ot 786. 50 CHEST PAIN NOS 01/07/2013 FRANCISCO TRUJILLO MD Ot V58. 66 LONG-TERM (CURRENT) USE OF ASPIRIN 01/07/2013 FRANCISCO TRUJILLO MD Ot V58. 69 OT MED,LT,CURRENT USE 03/10/2015 MELLY WESTBROOK Ot 244.9 03/10/2015 MELLY WESTBROOK Ot 272.4 03/10/2015 MELLY WESTBROOK Ot 401.9 03/10/2015 MELLY WESTBROOK Ot 785.1 03/18/2015 MELLY WESTBROOK Ot 244.9 03/18/2015 MELLY WESTBROOK Ot 272.4 03/18/2015 MELLY WESTBROOK Ot 401.9 03/18/2015 MELLY WESTBROKO Ot 785.1 05/15/2015 MELLY WESTBROOK Ot 244.9 HYPOTHYROIDISM NOS 05/15/2015 MELLY WESTBROOK Ot 272.4 HYPERLIPIDEMIA NEC/NOS 05/15/2015 MELLY WESTBROOK Ot 401.9 HYPERTENSION NOS 05/15/2015 MANASA LEBLANC, MELLY Mike Ot 785.1 PALPITATIONS 05/15/2015 MELLY WESTBROOK Ot E03.9 HYPOTHYROIDISM, UNSPECIFIED 05/15/2015 MELLY WESTBROOK Ot E78.5 HYPERLIPIDEMIA, UNSPECIFIED 05/15/2015 MELLY WESTBROOK Ot I10 ESSENTIAL (PRIMARY) HYPERTENSION 05/15/2015 MELLY WESTBROOK Ot R00.2 PALPITATIONS 12/21/2015 Ot 272.4 HYPE RLIPIDEMIA NEC/NOS 12/21/2015 Ot 285.9 ANEM IA NOS 12/21/2015 Ot 786.09 RES PIRATORY ABNORM NEC 12/21/2015 Ot V45.89 POS TSURGICAL STATES NEC 12/21/2015 Ot 174.9 JOSÉ MANUEL GN NEOPL BREAST NOS 12/21/2015 Ot 535.40 OTH SPECIFIED GASTRITIS,W/O MENTION OF H 12/21/2015 Ot 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 12/21/2015 Ot V76.51 SCR EEN MAL NEOP- COLON 12/21/2015 Ot 592.0 CALC ULUS OF KIDNEY 12/21/2015 Ot 724.5 BACK ACHE NOS 12/21/2015 Ot 787.91 HUSEYIN RRHEA 12/21/2015 Ot 789.00 ABD OMINAL PAIN, UNSPECIFIED SITE 12/21/2015 Ot 724.5 BACK ACHE NOS 12/21/2015 Ot 787.91 HUSEYIN RRHEA 12/21/2015 Ot 789.00 ABD OMINAL PAIN, UNSPECIFIED SITE 12/21/2015 Ot 465.9 ACUT E URI NOS 12/21/2015 Ot 780.60 FEV ER, UNSPECIFIED 12/21/2015 Ot 786.2 COUGH 12/21/2015 Ot 715.95 OST EOARTHROS NOS- PELVIS 12/21/2015 Ot 722.4 CERV ICAL DISC DEGEN 12/21/2015 Ot 959.9 INJU RY-SITE NOS 12/21/2015 Ot E000.8 OTH ER EXTERNAL CAUSE STATUS 12/21/2015 Ot E888.9 FAL L NOS 12/21/2015 FRANCISCO TRUJILLO MD Ot 786. 50 CHEST PAIN NOS 12/21/2015 Ot 424.0 MITR AL VALVE DISORDER 12/21/2015 Ot 786.09 RES PIRATORY ABNORM NEC 12/21/[address] PAIN NOS 12/21/2015 VINOD SERNA MD Ot 723.1 CERVICALGIA 12/21/2015 VINOD SERNA MD Ot 721.0 CERVICAL SPONDYLOSIS 12/21/2015 MELLY WESTBROOK Ot 244.9 12/21/2015 MELLY WESTBROOK Ot 272.4 12/21/2015 MELLY WESTBROOK Ot 401.9 12/21/2015 MELLY WESTBROOK Ot 785.1 12/21/2015 FRANCISCO TRUJILLO MD Ot E78. 2 MIXED HYPERLIPIDEMIA 12/21/2015 FRANCISCO TRUJILLO MD Ot E78. 2 MIXED HYPERLIPIDEMIA 12/21/2015 FRANCISCO TRUJILLO MD Ot E78. 2 MIXED HYPERLIPIDEMIA 12/21/2015 FRANCISCO TRUJILLO MD Ot E78. 2 MIXED HYPERLIPIDEMIA 12/22/2015 FRANCISCO TRUJILLO MD Ot E78. 2 MIXED HYPERLIPIDEMIA 12/22/2015 FRANCISCO TRUJILLO MD Ot I10 ESSENTIAL (PRIMARY) HYPERTENSION 12/22/2015 FRANCISCO TRUJILLO MD Ot I44. 1 ATRIOVENTRICULAR BLOCK, SECOND DEGREE 12/22/2015 FRANCISCO TRUJILLO MD Ot R07. 89 OTHER CHEST PAIN 12/22/2015 FRANCISCO TRUJILLO MD Ot E78. 2 MIXED HYPERLIPIDEMIA 12/22/2015 FRANCISCO TRUJILLO MD Ot I10 ESSENTIAL (PRIMARY) HYPERTENSION 12/22/2015 FRANCISCO TRUJILLO MD Ot I44. 1 ATRIOVENTRICULAR BLOCK, SECOND DEGREE 12/22/2015 FRANCISCO TRUJILLO MD Ot R07. 89 OTHER CHEST PAIN 01/10/2016 FRANCISCO TRUJILLO MD Ot E78. 2 MIXED HYPERLIPIDEMIA 01/10/2016 FRANCISCO TRUJILLO MD Ot I10 ESSENTIAL (PRIMARY) HYPERTENSION 01/10/2016 FRANCISCO TRUJILLO MD Ot I44. 1 ATRIOVENTRICULAR BLOCK, SECOND DEGREE 01/10/2016 FRANCISCO TRUJILLO MD Ot R07. 89 OTHER CHEST PAIN 01/19/2016 FRANCISCO TRUJILLO MD Ot E78. 2 MIXED HYPERLIPIDEMIA 01/19/2016 FRANCISCO TRUJILLO MD Ot I10 ESSENTIAL (PRIMARY) HYPERTENSION 01/19/2016 FRANCISCO TRUJILLO MD Ot I44. 1 ATRIOVENTRICULAR BLOCK, SECOND DEGREE 01/19/2016 FRANCISCO TRUJILLO MD Ot R07. 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 04/11/2016 Ot V76.51 SCR EEN MAL NEOP- COLON 04/11/2016 Ot 592.0 CALC ULUS OF KIDNEY 04/11/2016 Ot 724.5 BACK ACHE NOS 04/11/2016 Ot 787.91 HUSEYIN RRHEA 04/11/2016 Ot 789.00 ABD OMINAL PAIN, UNSPECIFIED SITE 04/11/2016 Ot 724.5 BACK ACHE NOS 04/11/2016 Ot 787.91 HUSEYIN RRHEA 04/11/2016 Ot 789.00 ABD OMINAL PAIN, UNSPECIFIED SITE 04/11/2016 Ot 465.9 ACUT E URI NOS 04/11/2016 Ot 780.60 FEV ER, UNSPECIFIED 04/11/2016 Ot 786.2 COUGH 04/11/2016 Ot 715.95 OST EOARTHROS NOS- PELVIS 04/11/2016 Ot 722.4 CERV ICAL DISC DEGEN 04/11/2016 Ot 959.9 INJU RY-SITE NOS 04/11/2016 Ot E000.8 OTH ER EXTERNAL CAUSE STATUS 04/11/2016 Ot E888.9 FAL L NOS 04/11/2016 FRANCISCO TRUJILLO MD Ot 786. 50 CHEST PAIN NOS 04/11/2016 Ot 424.0 MITR AL VALVE DISORDER 04/11/2016 Ot 786.09 RES PIRATORY ABNORM NEC 04/11/[address] PAIN NOS 04/11/2016 VINOD SERNA MD Ot 723.1 CERVICALGIA 04/11/2016 VINOD SERNA MD Ot 721.0 CERVICAL SPONDYLOSIS 04/11/2016 MELLY WESTBROOK Ot 244.9 04/11/2016 MELLY WESTBROOK Ot 272.4 04/11/2016 MELLY WESTBROOK Ot 401.9 04/11/2016 MELLY WESTBROOK Ot 785.1 04/11/2016 FRANCISCO TRUJILLO MD, Ot E78. 2 MIXED HYPERLIPIDEMIA 04/11/2016 FRANCISCO TRUJILLO MD Ot I10 ESSENTIAL (PRIMARY) HYPERTENSION 04/11/2016 FRANCISCO TRUJILLO MD Ot I44. 1 ATRIOVENTRICULAR BLOCK, SECOND DEGREE 04/11/2016 FRANCISCO TRUJILLO MD Ot R07. 89 OTHER CHEST PAIN 04/11/2016 FRANCISCO TRUJILLO MD Ot E11. 9 TYPE 2 DIABETES MELLITUS WITHOUT COMPLIC 04/11/2016 FRANCISCO TRUJILLO MD Ot E78. 5 HYPERLIPIDEMIA, UNSPECIFIED 04/11/2016 FRANCISCO TRUJILLO MD Ot I10 ESSENTIAL (PRIMARY) HYPERTENSION 04/11/2016 FRANCISCO TRUJILLO MD Ot I25. 10 ATHSCL HEART DISEASE OF [place] CORONARY 04/11/2016 FRANCISCO TRUJILLO MD Ot R00. 2 PALPITATIONS 04/11/2016 FRANCISCO TRUJILLO MD Ot R07. 9 CHEST PAIN, UNSPECIFIED 04/11/2016 FRANCISCO TRUJILLO MD Ot R94. 39 ABNORMAL RESULT OF OTHER CARDIOVASCULAR 04/11/2016 FRANCISCO TRUJILLO MD Ot Z79.899 OTHER CUSTODIAL (CURRENT) DRUG THERAPY 04/20/2016 FRANCISCO TRUJILLO MD Ot E11. 9 TYPE 2 DIABETES MELLITUS WITHOUT COMPLIC 04/20/2016 FRANCISCO TRUJILLO MD Ot E78. 5 HYPERLIPIDEMIA, UNSPECIFIED 04/20/2016 FRANCISCO TRUJILLO MD Ot I10 ESSENTIAL (PRIMARY) HYPERTENSION 04/20/2016 FRANCISCO TRUJILLO MD Ot I25. 10 ATHSCL HEART DISEASE OF [place] CORONARY 04/20/2016 FRANCISCO TRUJILLO MD Ot R00. 2 PALPITATIONS 04/20/2016 FRANCISCO TRUJILLO MD Ot R07. 9 CHEST PAIN, UNSPECIFIED 04/20/2016 FRANCISCO TRUJILLO MD Ot R94. 39 ABNORMAL RESULT OF OTHER CARDIOVASCULAR 04/20/2016 FRANCISCO TRUJILLO MD Ot Z79.899 OTHER BIG DATA DEVELOPER (CURRENT) DRUG THERAPY 04/20/2016 Ot 285.9 ANEM IA NOS 04/20/2016 Ot 786.09 RES PIRATORY ABNORM NEC 04/20/2016 Ot V45.89 POS TSURGICAL STATES NEC 04/20/2016 Ot 174.9 JOSÉ MANUEL GN NEOPL BREAST NOS 04/20/2016 Ot 535.40 OTH SPECIFIED GASTRITIS,W/O MENTION OF H 04/20/2016 Ot 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 04/20/2016 Ot V76.51 SCR EEN MAL NEOP- COLON 04/20/2016 Ot 592.0 CALC ULUS OF KIDNEY 04/20/2016 Ot 724.5 BACK ACHE NOS 04/20/2016 Ot 787.91 HUSEYIN RRHEA 04/20/2016 Ot 789.00 ABD OMINAL PAIN, UNSPECIFIED SITE 04/20/2016 Ot 724.5 BACK ACHE NOS 04/20/2016 Ot 787.91 HUSEYIN RRHEA 04/20/2016 Ot 789.00 ABD OMINAL PAIN, UNSPECIFIED SITE 04/20/2016 Ot 465.9 ACUT E URI NOS 04/20/2016 Ot 780.60 FEV ER, UNSPECIFIED 04/20/2016 Ot 786.2 COUGH 04/20/2016 Ot 715.95 OST EOARTHROS NOS- PELVIS 04/20/2016 Ot 722.4 CERV ICAL DISC DEGEN 04/20/2016 Ot 959.9 INJU RY-SITE NOS 04/20/2016 Ot E000.8 OTH ER EXTERNAL CAUSE STATUS 04/20/2016 Ot E888.9 FAL L NOS 04/20/2016 FRANCISCO TRUJILLO MD Ot 786. 50 CHEST PAIN NOS 04/20/2016 Ot 424.0 MITR AL VALVE DISORDER 04/20/2016 Ot 786.09 RES PIRATORY ABNORM NEC 04/20/[address] PAIN NOS 04/20/2016 KAREEM ETIENNE, VINOD Barcenas Ot 723.1 CERVICALGIA 04/20/2016 KAREEM ETIENNE, VINOD Barcenas Ot 721.0 CERVICAL SPONDYLOSIS 04/20/2016 MANASA LEBLANC, MELLY Mike Ot 244.9 04/20/2016 MELLY WESTBROOK Ot 272.4 04/20/2016 MELLY WESTBROOK Ot 401.9 04/20/2016 MELLY WESTBROOK Ot 785.1 04/20/2016 CASSANDRA ETIENNE, FRANCISCO Velez Ot E78. 2 MIXED HYPERLIPIDEMIA 04/20/2016 CASSANDRA ETIENNE, FRANCISCO Velez Ot I10 ESSENTIAL (PRIMARY) HYPERTENSION 04/20/2016 CASSANDRA ETIENNE, FRANCISCO Velez Ot I44. 1 ATRIOVENTRICULAR BLOCK, SECOND DEGREE 04/20/2016 CASSANDRA ETIENNE, FRANCISCO Velez Ot R07. 89 OTHER CHEST PAIN 08/17/2016 SAMUEL HERR PLASTIC WELDER Ot E11.65 TYPE 2 DIABETES MELLITUS WITH HYPERGLYCE 08/17/2016 SAMUEL HERR PLASTIC WELDER Ot I10 ESSENTIAL (PRIMARY) HYPERTENSION 08/28/2016 SAMUEL HERR PLASTIC WELDER Ot E11.65 TYPE 2 DIABETES MELLITUS WITH HYPERGLYCE 08/28/2016 SAMUEL HERR PLASTIC WELDER Ot I10 ESSENTIAL (PRIMARY) HYPERTENSION 10/10/2016 SAMUEL HERR PLASTIC WELDER Ot E11.65 TYPE 2 DIABETES MELLITUS WITH HYPERGLYCE 10/10/2016 SAMUEL HERR PLASTIC WELDER Ot I10 ESSENTIAL (PRIMARY) HYPERTENSION 10/17/2016 SAMUEL HERR PLASTIC WELDER Ot E11.65 TYPE 2 DIABETES MELLITUS WITH HYPERGLYCE 10/17/2016 SAMUEL HERR PLASTIC WELDER Ot I10 ESSENTIAL (PRIMARY) HYPERTENSION 11/12/[address] APPRENTICE COSMETOLOGIST Ot E86.0 DEHYDRATION 11/12/[address] APPRENTICE COSMETOLOGIST Ot R53.81 OTHER [place]ISE 11/12/[address] APPRENTICE COSMETOLOGIST Ot R53.83 OTHER FATIGUE 11/14/2016 SAMUEL HERR PLASTIC WELDER Ot E11.65 TYPE 2 DIABETES MELLITUS WITH HYPERGLYCE 11/14/2016 SAMUEL HERR PLASTIC WELDER Ot I10 ESSENTIAL (PRIMARY) HYPERTENSION 11/30/[address] APPRENTICE COSMETOLOGIST Ot E86.0 DEHYDRATION 11/30/[address] APPRENTICE COSMETOLOGIST Ot R53.81 OTHER MALAISE 11/30/2016 DOMINGOADDISON APPRENTICE COSMETOLOGIST Ot R53.83 OTHER FATIGUE 01/15/2018 CASSANDRA ETIENNE, FRANCISCO Velez Ot R00. 2 PALPITATIONS 01/15/2018 CASSANDRA ETIENNE, FRANCISCO Velez Ot R06. 02 SHORTNESS OF BREATH 02/04/2018 CASSANDRA ETIENNE, FRANCISCO Velez Ot R00. 2 PALPITATIONS 02/04/2018 CASSANDRA ETIENNE, FRANCISCO Velez Ot R06. 02 SHORTNESS OF BREATH 02/14/2018 CASSANDRA ETIENNE, FRANCISCO Velez Ot R00. 2 PALPITATIONS 02/14/2018 CASSANDRA ETIENNE, FRANCISCO Velez Ot R06. 02 SHORTNESS OF BREATH 04/11/2018 VINOD SERNA MD Ot G47.33 OBSTRUCTIVE SLEEP APNEA (ADULT) (PEDIATR 04/16/2018 VINOD SERNA MD Ot G47.33 OBSTRUCTIVE SLEEP APNEA (ADULT) (PEDIATR 04/17/2018 VINOD SERNA MD Ot G47.10 HYPERSOMNIA, UNSPECIFIED 04/17/2018 VINOD SERNA MD Ot G47.33 OBSTRUCTIVE SLEEP APNEA (ADULT) (PEDIATR 04/17/2018 VINOD SERNA MD Ot G47.36 SLEEP RELATED HYPOVENTILATION IN CONDITI 04/17/2018 VINOD SERNA MD Ot I1 0 ESSENTIAL (PRIMARY) HYPERTENSION 04/17/2018 VINOD SERNA MD Ot R06.83 SNORING 04/22/2018 VINOD SERNA MD Ot G47.10 HYPERSOMNIA, UNSPECIFIED 04/22/2018 VINOD SERNA MD Ot G47.33 OBSTRUCTIVE SLEEP APNEA (ADULT) (PEDIATR 04/22/2018 VINOD SERNA MD Ot G47.36 SLEEP RELATED HYPOVENTILATION IN CONDITI 04/22/2018 VINOD SERNA MD Ot I1 0 ESSENTIAL (PRIMARY) HYPERTENSION 04/22/2018 VINOD SERNA MD Ot R06.83 SNORING 04/22/2018 VINOD SERNA MD Ot G47.10 HYPERSOMNIA, UNSPECIFIED 04/22/2018 VINOD SERNA MD Ot G47.33 OBSTRUCTIVE SLEEP APNEA (ADULT) (PEDIATR 04/22/2018 VINOD SERNA MD Ot G47.36 SLEEP RELATED HYPOVENTILATION IN CONDITI 04/22/2018 VINOD SERNA MD Ot I1 0 ESSENTIAL (PRIMARY) HYPERTENSION 04/22/2018 VINOD SERNA MD Ot R06.83 SNORING 04/24/2018 VINOD SERNA MD Ot G47.10 HYPERSOMNIA, UNSPECIFIED 04/24/2018 VINOD SERNA MD Ot G47.33 OBSTRUCTIVE SLEEP APNEA (ADULT) (PEDIATR 04/24/2018 VINOD SERNA MD Ot G47.36 SLEEP RELATED HYPOVENTILATION IN CONDITI 04/24/2018 VINOD SERNA MD Ot I1 0 ESSENTIAL (PRIMARY) HYPERTENSION 04/24/2018 VINOD SERNA MD Ot R06.83 SNORING 05/27/2018 FRANCISCO TRUJILLO MD Ot 786. 50 CHEST PAIN NOS 05/27/2018 VINOD SERNA MD Ot 723.1 CERVICALGIA 05/27/2018 VINOD SERNA MD Ot 721.0 CERVICAL SPONDYLOSIS 05/27/2018 MANASA LEBLANC, MELLY K Ot 244.9 05/27/2018 MANASA PA, MELLY K Ot 272.4 05/27/2018 MANASA LEBLANC, MELLY K Ot 401.9 05/27/2018 MANASA LEBLANC, MELLY K Ot 785.1 05/27/2018 FRANCISCO TRUJILLO MD Ot E78. 2 MIXED HYPERLIPIDEMIA 05/27/2018 FRANCISCO TRUJILLO MD Ot I10 ESSENTIAL (PRIMARY) HYPERTENSION 05/27/2018 FRANCISCO TRUJILLO MD Ot I44. 1 ATRIOVENTRICULAR BLOCK, SECOND DEGREE 05/27/2018 FRANCISCO TRUJILLO MD Ot R07. 89 OTHER CHEST PAIN 05/27/[address] APPRENTICE COSMETOLOGIST Ot E86.0 DEHYDRATION 05/27/[address] APPRENTICE COSMETOLOGIST Ot R53.81 OTHER [place] 05/27/[address] APPRENTICE COSMETOLOGIST Ot R53.83 OTHER FATIGUE 05/27/2018 FRANCISCO TRUJILLO MD Ot R00. 2 PALPITATIONS 05/27/2018 FRANCISCO TRUJILLO MD Ot R06. 02 SHORTNESS OF BREATH 05/28/2018 SAMUEL HERR PLASTIC WELDER Ot I51.7 CARDIOMEGALY 05/28/2018 SAMUEL HERR PLASTIC WELDER Ot R05 COUGH 06/17/2018 SAMUEL HERR PLASTIC WELDER Ot I51.7 CARDIOMEGALY 06/17/2018 SAMUEL HERR PLASTIC WELDER Ot R05 COUGH 07/02/2018 SAMUEL HERR PLASTIC WELDER Ot I51.7 CARDIOMEGALY 07/02/2018 SAMUEL HERR PLASTIC WELDER Ot R05 COUGH 01/14/2019 KAREEM ETIENNE, VINOD Barcenas Ot M47.814 SPONDYLOSIS W/O MYELOPATHY OR RADICULOPA 01/14/2019 KAREEM ETIENNE, VINOD Barcenas Ot R07.81 PLEURODYNIA 01/14/2019 KAREEM ETIENNE, VINOD Barcenas Ot W19.XXXA UNSPECIFIED FALL, INITIAL ENCOUNTER 01/23/2019 KAREEM ETIENNE, VINOD Barcenas Ot M47.814 SPONDYLOSIS W/O MYELOPATHY OR RADICULOPA 01/23/2019 KAREEM ETIENNE, VINOD Barcenas Ot R07.81 PLEURODYNIA 01/23/2019 KAREEM ETIENNE, VINOD Barcenas Ot W19.XXXA UNSPECIFIED FALL, INITIAL ENCOUNTER 05/28/2019 MELLY WESTBROOK Ot E78.2 MIXED HYPERLIPIDEMIA 05/28/2019 MELLY WESTBROOK Ot I07.1 RHEUMATIC TRICUSPID INSUFFICIENCY 05/28/2019 MELLY WESTBROOK Ot I10 ESSENTIAL (PRIMARY) HYPERTENSION 05/28/2019 MELLY WESTBROOK Ot R00.2 PALPITATIONS 06/15/2019 MELLY WESTBROOK Ot E78.2 MIXED HYPERLIPIDEMIA 06/15/2019 MELLY WESTBROOK Ot I07.1 RHEUMATIC TRICUSPID INSUFFICIENCY 06/15/2019 MELLY WESTBROOK Ot I10 ESSENTIAL (PRIMARY) HYPERTENSION 06/15/2019 MELLY WESTBROOK Ot R00.2 PALPITATIONS 07/28/2019 KAREEM ETIENNE, VINOD Barcenas Ot S06.5X9A TRAUM SUBDR HEM W LOC OF UNSP DURATION, 08/05/2019 MELLY WESTBROOK Ot E78.2 MIXED HYPERLIPIDEMIA 08/05/2019 MELLY WESTBROOK Ot I07.1 RHEUMATIC TRICUSPID INSUFFICIENCY 08/05/2019 MELLY WESTBROOK Ot I10 ESSENTIAL (PRIMARY) HYPERTENSION 08/05/2019 MELLY WESTBROOK Ot R00.2 PALPITATIONS Procedures There is no data. Results Test Result Range Automated blood complete blood count (he mogram) panel - 04/11/16 10:14 Blood leukocytes automated count (number/volume) 7.3 10*3/uL 4.3-11.0 Blood erythrocytes automated count (number/volume) 4.73 10*6/uL 4.35-5.85 Venous blood hemoglobin measurement (mass/volume) 13.6 g/dL 11.5-16.0 Blood hematocrit (volume fraction) 41 % 35-52 Automated erythrocyte mean corpuscular volume 87 [ foz_us] 80-99 Automated erythrocyte mean corpuscular h emoglobin (mass per erythrocyte) 29 pg 25-34 Automated erythrocyte mean corpuscular h emoglobin concentration measurement (mass/volume) 33 g/dL 32-36 Automated erythrocyte distribution width ratio 15. 2 % 10.0- 14.5 Automated blood platelet count (count/volume) 295 10*3/uL 130-400 Automated blood platelet mean volume measurement 9.7 [foz_us] 7.4-10.4 PT panel in platelet poor plasma by coag ulation assay - 04/11/16 10:14 Prothrombin time (PT) in platelet poor plasma by coagu lation assay 11.9 s 12.2-14.7 INR in platelet poor plasma or blood by coagulation as say 0.9 0.8-1.4 Activated partial thromboplastin time (a PTT) in platelet poor plasma bycoagulation assay - 04/11/16 10:14 Activated partial thromboplastin time (a PTT) in platelet poor plasma bycoagulation assay 24 s 24-35 Complete urinalysis with reflex to cultu re - 04/11/16 10:14 Urine color determination YELLOW NRG Urine clarity determination CLEAR NR G Urine pH measurement by test strip 6 5-9 Specific gravity of urine by test strip 1.020 1.016-1.022 Urine protein assay by test strip, semi-quantitative 1+ NEGATIVE Urine glucose detection by automated test strip NE GATIVE NEGATIVE Erythrocytes detection in urine sediment by light micr oscopy NEGATIVE NEGATIVE Urine ketones detection by automated test strip NE GATIVE NEGATIVE Urine nitrite detection by test strip NEGATIVE NEGATIVE Urine total bilirubin detection by test strip NEGA TIVE NEGATIVE Urine urobilinogen measurement by automated test strip (mass/volume) NORMAL NORMAL Urine leukocyte esterase detection by dipstick 1+ NEGATIVE Automated urine sediment erythrocyte cou nt by microscopy (number/high power field) NONE NRG Automated urine sediment leukocyte count by microscopy (number/high power field) [HPF] NRG Bacteria detection in urine sediment by light microsco py TRACE NRG Squamous epithelial cells detection in u rine sediment by light microscopy 2-5 NRG Crystals detection in urine sediment by light microsco py NONE NRG Casts detection in urine sediment by light microscopy NONE NRG Mucus detection in urine sediment by light microscopy SMALL NRG Complete urinalysis with reflex to culture NO NRG Comprehensive metabolic panel - 04/11/16 10:14 Serum or plasma sodium measurement (moles/volume) 141 mmol/L 135-145 Serum or plasma potassium measurement (moles/volume) 3.9 mmol/L 3.6-5.0 Serum or plasma chloride measurement (moles/volume) 103 mmol/L 98-107 Carbon dioxide 27 mmol/L 21-32 Serum or plasma anion gap determination (moles/volume) 11 mmol/L 5-14 Serum or plasma urea nitrogen measurement (mass/volume ) 20 mg/dL 7-18 Serum or plasma creatinine measurement (mass/volume) 0.88 mg/dL 0.60-1.30 Serum or plasma urea nitrogen/creatinine mass ratio 23 NRG Serum or plasma creatinine measurement w ith calculation of estimated glomerular filtration rate > NRG Serum or plasma glucose measurement (mass/volume) 149 mg/dL 70-105 Serum or plasma calcium measurement (mass/volume) 10.2 mg/dL 8.5-10.1 Serum or plasma total bilirubin measurement (mass/volu me) 0.5 mg/dL 0.1-1.0 Serum or plasma alkaline phosphatase ulises surement (enzymatic activity/volume) 87 U/L 40-136 Serum or plasma aspartate aminotransfera se measurement (enzymatic activity/volume) 19 U/L 5-34 Serum or plasma alanine aminotransferase measurement (enzymatic activity/volume) 26 U/L 0-55 Serum or plasma protein measurement (mass/volume) 7.0 g/dL 6.4-8.2 Serum or plasma albumin measurement (mass/volume) 4.4 g/dL 3.2-4.5 Lipid 1996 panel - 04/11/16 10:14 Serum or plasma triglyceride measurement (mass/volume) 338 mg/dL <150 Serum or plasma cholesterol measurement (mass/volume) 228 mg/dL < 200 Serum or plasma cholesterol in HDL measurement (mass/v olume) 49 mg/dL 40-60 Cholesterol in LDL [mass/volume] in serum or plasma by direct assay 121 mg/dL 1-129 Serum or plasma cholesterol in VLDL measurement (mass/ volume) 68 mg/dL 5-40 Methicillin resistant Staphylococcus aur eus (MRSA) screening culture - 04/11/16 10:14 Methicillin resistant Staphylococcus aureus (MRSA) scr eening culture NEG NRG Automated blood complete blood count (he mogram) panel - 11/06/16 17:15 Blood leukocytes automated count (number/volume) 7.2 10*3/uL 4.3-11.0 Blood erythrocytes automated count (number/volume) 4.95 10*6/uL 4.35-5.85 Venous blood hemoglobin measurement (mass/volume) 13.8 g/dL 11.5-16.0 Blood hematocrit (volume fraction) 41 % 35-52 Automated erythrocyte mean corpuscular volume 83 [ foz_us] 80-99 Automated erythrocyte mean corpuscular h emoglobin (mass per erythrocyte) 28 pg 25-34 Automated erythrocyte mean corpuscular h emoglobin concentration measurement (mass/volume) 33 g/dL 32-36 Automated erythrocyte distribution width ratio 15. 1 % 10.0- 14.5 Automated blood platelet count (count/volume) 337 10*3/uL 130-400 Automated blood platelet mean volume measurement 9.6 [foz_us] 7.4-10.4 Comprehensive metabolic panel - 11/06/16 17:15 Serum or plasma sodium measurement (moles/volume) 139 mmol/L 135-145 Serum or plasma potassium measurement (moles/volume) 3.9 mmol/L 3.6-5.0 Serum or plasma chloride measurement (moles/volume) 101 mmol/L 98-107 Carbon dioxide 27 mmol/L 21-32 Serum or plasma anion gap determination (moles/volume) 11 mmol/L 5-14 Serum or plasma urea nitrogen measurement (mass/volume ) 19 mg/dL 7-18 Serum or plasma creatinine measurement (mass/volume) 1.18 mg/dL 0.60-1.30 Serum or plasma urea nitrogen/creatinine mass ratio 16 NRG Serum or plasma creatinine measurement w ith calculation of estimated glomerular filtration rate 44 NRG Serum or plasma glucose measurement (mass/volume) 105 mg/dL 70-105 Serum or plasma calcium measurement (mass/volume) 10.4 mg/dL 8.5-10.1 Serum or plasma total bilirubin measurement (mass/volu me) 0.4 mg/dL 0.1-1.0 Serum or plasma alkaline phosphatase ulises surement (enzymatic activity/volume) 69 U/L 40-136 Serum or plasma aspartate aminotransfera se measurement (enzymatic activity/volume) 20 U/L 5-34 Serum or plasma alanine aminotransferase measurement (enzymatic activity/volume) 27 U/L 0-55 Serum or plasma protein measurement (mass/volume) 7.3 g/dL 6.4-8.2 Serum or plasma albumin measurement (mass/volume) 4.5 g/dL 3.2-4.5 Magnesium - 11/06/16 17:15 Magnesium 2.0 mg/dL 1.8-2.4 Complete urinalysis with reflex to cultu re - 11/06/16 17:15 Urine color determination YELLOW NRG Urine clarity determination CLEAR NR G Urine pH measurement by test strip 6.5 5-9 Specific gravity of urine by test strip 1.015 1.016-1.022 Urine protein assay by test strip, semi-quantitative NEGATIVE NEGATIVE Urine glucose detection by automated test strip NE GATIVE NEGATIVE Erythrocytes detection in urine sediment by light micr oscopy NEGATIVE NEGATIVE Urine ketones detection by automated test strip NE GATIVE NEGATIVE Urine nitrite detection by test strip NEGATIVE NEGATIVE Urine total bilirubin detection by test strip NEGA TIVE NEGATIVE Urine urobilinogen measurement by automated test strip (mass/volume) NORMAL NORMAL Urine leukocyte esterase detection by dipstick NEG ATIVE NEGATIVE Automated urine sediment erythrocyte cou nt by microscopy (number/high power field) NONE NRG Automated urine sediment leukocyte count by microscopy (number/high power field) NONE NRG Bacteria detection in urine sediment by light microsco py NONE NRG Squamous epithelial cells detection in u rine sediment by light microscopy RARE NRG Crystals detection in urine sediment by light microsco py NONE NRG Casts detection in urine sediment by light microscopy NONE NRG Mucus detection in urine sediment by light microscopy NEGATIVE NRG Complete urinalysis with reflex to culture NO NRG Cyanocobalamin measurement - 11/06/16 17 :15 Vitamin B12 > pg/mL 200-1000 Complete blood count (CBC) with automate d white blood cell (WBC) differential - 07/18/19 13:50 Blood leukocytes automated count (number/volume) 5.4 10*3/uL 4.3-11.0 Blood erythrocytes automated count (number/volume) 4.04 10*6/uL 4.35-5.85 Venous blood hemoglobin measurement (mass/volume) 11.1 g/dL 11.5-16.0 Blood hematocrit (volume fraction) 33 % 35-52 Automated erythrocyte mean corpuscular volume 83 [ foz_us] 80-99 Automated erythrocyte mean corpuscular h emoglobin (mass per erythrocyte) 27 pg 25-34 Automated erythrocyte mean corpuscular h emoglobin concentration measurement (mass/volume) 33 g/dL 32-36 Automated erythrocyte distribution width ratio 15. 1 % 10.0- 14.5 Automated blood platelet count (count/volume) 291 10*3/uL 130-400 Automated blood platelet mean volume measurement 8.8 [foz_us] 7.4-10.4 Automated blood neutrophils/100 leukocytes 74 % 42-75 Automated blood lymphocytes/100 leukocytes 18 % 12-44 Blood monocytes/100 leukocytes 7 % 0-12 Automated blood eosinophils/100 leukocytes 1 % 0-10 Automated blood basophils/100 leukocytes 1 % 0-10 Blood neutrophils automated count (number/volume) 4.0 10*3 1.8-7.8 Blood lymphocytes automated count (number/volume) 1.0 10*3 1.0-4.0 Blood monocytes automated count (number/volume) 0. 4 10*3 0.0-1.0 Automated eosinophil count 0.1 10*3/uL 0 .0-0.3 Automated blood basophil count (count/volume) 0.0 10*3/uL 0.0-0.1 Comprehensive metabolic panel - 07/18/19 13:50 Serum or plasma sodium measurement (moles/volume) 141 mmol/L 135-145 Serum or plasma potassium measurement (moles/volume) 4.1 mmol/L 3.6-5.0 Serum or plasma chloride measurement (moles/volume) 105 mmol/L 98-107 Carbon dioxide 27 mmol/L 21-32 Serum or plasma anion gap determination (moles/volume) 9 mmol/L 5-14 Serum or plasma urea nitrogen measurement (mass/volume ) 15 mg/dL 7-18 Serum or plasma creatinine measurement (mass/volume) 1.06 mg/dL 0.60-1.30 Serum or plasma urea nitrogen/creatinine mass ratio 14 NRG Serum or plasma creatinine measurement w ith calculation of estimated glomerular filtration rate 50 NRG Serum or plasma glucose measurement (mass/volume) 100 mg/dL 70-105 Serum or plasma calcium measurement (mass/volume) 10.0 mg/dL 8.5-10.1 Serum or plasma total bilirubin measurement (mass/volu me) 0.3 mg/dL 0.1-1.0 Serum or plasma alkaline phosphatase ulises surement (enzymatic activity/volume) 45 U/L 40-136 Serum or plasma aspartate aminotransfera se measurement (enzymatic activity/volume) 18 U/L 5-34 Serum or plasma alanine aminotransferase measurement (enzymatic activity/volume) 15 U/L 0-55 Serum or plasma protein measurement (mass/volume) 6.8 g/dL 6.4-8.2 Serum or plasma albumin measurement (mass/volume) 4.4 g/dL 3.2-4.5 CALCIUM CORRECTED 9.7 mg/dL 8.5-10.1 Serum or plasma troponin i.cardiac measu rement (mass/volume) - 07/18/19 13:50 Serum or plasma troponin i.cardiac measurement (mass/v olume) < ng/mL <0.028 Serum or plasma C reactive protein measu rement (mass/volume) - 07/18/19 13:50 Serum or plasma C reactive protein measurement (mass/v olume) 0.11 mg/dL 0.00-0.50 Serum or plasma ethanol measurement (mas s/volume) - 07/18/19 13:50 Serum or plasma ethanol measurement (mass/volume) < mg/dL <10 Serum or plasma lithium measurement (mol es/volume) - 07/18/19 13:50 BNP PT 38.0 pg/mL <100.0 Capillary blood glucose measurement by g lucometer (mass/volume) - 07/18/19 13:52 Capillary blood glucose measurement by glucometer (mas s/volume) 104 mg/dL 70-110 Encounters ACCT No. Visit Date/Time Discharge Status Pt. Type Provider Facility Loc./Unit Complaint [id number] 05/07/2019 12:48:00 00:01:00 DIS Outpatient MANASA LEBLANC, ADONAY Mike [facility] CARD CHEST PAIN [id number] 07/23/2019 13:54:00 23:59:59 CLS Outpatient VINOD SERNA MD [facility] RAD SUBDURAL HEMATOMA [id number] 07/18/2019 13:28:00 16:08:00 DIS Emergency BARAK ETIENNE, DANA Velez [facility] ER FALL [id number] 12/23/2018 14:12:00 23:59:59 CLS Outpatient VINOD SERNA MD [facility] RAD THORACIC BACK PAIN [id number] 05/27/2018 10:49:00 23:59:59 CLS Outpatient SAMUEL HERR [facility] RAD COUGH R05 [id number] 04/16/2018 19:48:00 018 06:15:00 DIS Outpatient VINOD SERNA MD [facility] SLEEP SLEEP RELATED HYPOVENT ILATION, SLEEP DISTURBANCE [id number] 01/14/2018 14:38:00 018 23:59:59 CLS Outpatient FRANCISCO TRUJILLO MD [facility] CARD PALPITATION [id number] 11/15/2016 10:00:00 017 23:59:59 CLS [facility]read[facility]AB[facility] [id number] 08/16/2016 11:20:00 017 00:01:00 DIS Out[facility] [id number] 11/06/2016 16:51:00 017 23:59:[address] APRN [facility] SDC MALAISE,FATIGUE,DEHYDR ATION [id number] 04/11/2016 08:38:00 016 16:40:00 DIS Outpatient FRANCISCO TRUJILLO MD [facility] ABN STRESS,CP,HTN,HLP [id number] 12/21/2015 09:17:00 016 23:59:59 CLS Outpatient FRANCISCO TRUJILLO MD [facility] CARD HTN,HLP, BLOCK [id number] 05/16/2015 10:30:00 015 23:59:59 CLS Preadmit MELLY WESTBROOK [facility] CARD HTN,HYPERLIPIDEMIA,PALPITATIONS [id number] 02/14/2015 10:59:00 00:01:00 DIS Outpatient ADONAY WESTBROOK [facility] CARD HTN,HYPERLIPIDEMIA,PALPITATIONS [id number] 05/28/2014 08:57:00 014 23:59:59 CLS Outpatient VINOD SERNA MD [facility] RAD PAIN, [id number] 01/07/2013 06:53:00 013 17:45:00 DIS Outpatient FRANCISCO TRUJILLO MD [facility] CATH ABN STRESS,CAD,HTN,HYPERLIPIDEMIA,DIABETES [id number] 12/22/2012 07:49:00 013 23:59:59 CLS Outpatient FRANCISCO TRUJILLO MD [facility] RAD CP,DYSPNEA [id number] 12/15/2012 12:53:00 013 23:59:59 CLS Outpatient VINOD SERNA MD [facility] RAD NECK PAIN 1 MONTH FOLL OWUP [id number] 12/04/2012 09:28:00 Document Registration [id number] 10/22/2012 15:27:00 Document Registration [id number] 10/08/2011 11:27:00 Document Registration [id number] 09/18/2011 00:00:00 Document Registration [id number] 06/20/2011 08:04:00 Document Registration [id number] 06/20/2011 07:53:00 Document Registration [id number] 11/28/2010 12:59:00 Document Registration [id number] 11/07/2010 13:57:00 Document Registration [id number] 08/22/2010 10:05:00 Document Registration
== END 2019-07-18 16:08 | disposition short-term general hospital (02) ==
LOC: EDUNIT# 13:27 → ER 13:28
DX: S00.83XA Contusion of other part of head, initial encounter (principal); R41.2 Retrograde amnesia; R55 Syncope and collapse; Z88.8 Allergy status to other drugs, medicaments and biological substances; Z79.82 Long term (current) use of aspirin; Z87.891 Personal history of nicotine dependence; Z90.710 Acquired absence of both cervix and uterus; Z85.3 Personal history of malignant neoplasm of breast; W19.XXXA Unspecified fall, initial encounter; W22.8XXA Striking against or struck by other objects, initial encounter
CPT/HCPCS: 36415; 70450; 70486; 71045; 72125; 72128; 72131; 80053; 80320; 82962; 83880; 84484; 85025; 86141; 90471; 90715; 93005; 96374; 96375

== ENCOUNTER → 2019-07-23 | Outpatient (CLI) | payer MEDICARE, OTHER ==
[~2019-07-23] MED LIST changes: +EZET10TA17 PO; -EZET10TA5 PO
--- NOTE | 2019-07-23 14:27 | Diagnostic Imaging Report ---
PROCEDURE: CT head without contrast. TECHNIQUE: Multiple contiguous axial images were obtained through the brain without the use of intravenous contrast. Auto Exposure Controls were utilized during the CT exam to meet ALARA standards for radiation dose reduction. INDICATION: Dizziness. COMPARISON: Correlation is made with prior head CT from 07/18/2019. FINDINGS: Previously noted left frontal scalp hematoma has significantly decreased in size. Ventricular size is stable. Periventricular hypodensities noted consistent with senescent change. The previously noted areas of acute subarachnoid hemorrhage have nearly completely resolved. There may be a tiny residual subarachnoid hemorrhage in the right frontal lobe. No new area of hemorrhage is detected. There is no midline shift or sulcal effacement. Cisterns are patent. Visualized paranasal sinuses are clear. IMPRESSION: Improved appearance since a head CT from 07/18/2019. Left frontal scalp hematoma is significantly smaller. Areas of acute subarachnoid hemorrhage have nearly completely resolved with only minimal residual subarachnoid blood noted in the right frontal lobe. Dictated by: Dictated on workstation # [id number]
== END ==
LOC: RAD 13:54
PROVIDERS: ATTEND Family Medicine
DX: S06.5X9A Traumatic subdural hemorrhage with loss of consciousness of unspecified duration, initial encounter (principal)
CPT/HCPCS: 70450

== ENCOUNTER → 2019-08-26 | Outpatient (CLI) | payer MEDICARE, OTHER ==
[~2019-08-26] MED LIST changes: -EZET10TA17 PO; +EZET10TA5 PO
--- NOTE | 2019-08-26 14:56 | Diagnostic Imaging Report ---
INDICATION: Fall six weeks ago with laceration to the left hand. TIME OF EXAM: 02:21 p.m. FINDINGS: Multiple views of left hand were obtained. There are degenerative changes at the first CMC joint. Metacarpals are intact. There are tiny opacities identified in the soft tissues at the level of the distal fifth metacarpal. These are suggestive of soft tissue foreign bodies. No other foreign bodies are seen. Phalanges are intact. No fractures are seen. IMPRESSION: Punctate soft tissue opacities adjacent to the distal fifth metacarpal suggestive of foreign bodies. No acute bony abnormality is detected. Dictated by: Dictated on workstation # [id number]
== END ==
LOC: RAD 13:53
PROVIDERS: ATTEND Nurse Practitioner Family
DX: M79.642 Pain in left hand (principal)
CPT/HCPCS: 73130

== ENCOUNTER → 2020-05-11 | Outpatient (CLI) | payer MEDICARE, OTHER ==
[~2020-05-11] VITALS: Ht 162 cm; Wt 71.0 kg
[~2020-05-11] MED LIST changes: +CATHETER FLUSH 10 ML SYR IV PRN; +EZET10TA17 PO; -EZET10TA5 PO; +REGADENOSON 0.4 MG/5 ML SYR (LEXISCAN) IV ONE
[2020-05-11 09:19] VITALS: BP 126/68
[2020-05-11 09:29] VITALS: BP 119/53
--- NOTE | 2020-05-11 11:26 | Cardiology Stress Test Report ---
Stress Test Report Date of Procedure/Referring: Date of Procedure: May 11, 2020 PCP Francisco Kraus MD Admitting Physician Amy Cheung MD Indications: Hypertension, coronary artery disease Baseline Heart Rate: 72 Baseline Blood Pressure: Blood Pressure Systolic: 119 Blood Pressure Diastolic: 53 Baseline Vitals Vital Signs Date Time Temp Pulse Resp B/P (MAP) Pulse Ox O2 Delivery O2 Flow Rate FiO2 05/11/20 09:19 76 126/68 (87) 05/11/20 09:29 18 97 Room Air Baseline EKG: Baseline EKG: normal sinus rhythm Summary After explaining the procedure to the patient, she signed a consent and then brought to the stress nuclear laboratory. Patient received 0.4 mg Lexiscan for stress test, ECG, heart rate and blood pre ssure were monitored continuously. Resting and stress dose of radio tracer were injected, imaging was acquired and reviewed in short axis, horizontal long axis and vertical long axis views. TID: 1.15 SSS: 2 SDS: 0 EF: 82 1. Patient tolerated Lexiscan well 2. No significant ischemia or infarction on SPECT images 3. Normal left ventricular size, EF 82 percent FRANCISCO KRAUS MD May 11, 2020 11:26
== END ==
LOC: CARD 08:15
PROVIDERS: ATTEND Internal Medicine Cardiovascular Disease
DX: I25.10 Atherosclerotic heart disease of native coronary artery without angina pectoris (principal); I10 Essential (primary) hypertension; E11.9 Type 2 diabetes mellitus without complications; E78.2 Mixed hyperlipidemia
CPT/HCPCS: 78452; 93017; A9502

== ENCOUNTER → 2021-07-05 | Outpatient (CLI) | payer MEDICARE, OTHER ==
[~2021-07-05] MED LIST changes: -CATHETER FLUSH 10 ML SYR IV PRN; -REGADENOSON 0.4 MG/5 ML SYR (LEXISCAN) IV ONE
== END ==
LOC: CARD 12:30
PROVIDERS: ATTEND Internal Medicine Cardiovascular Disease
DX: I11.9 Hypertensive heart disease without heart failure (principal)
CPT/HCPCS: 93306

== ENCOUNTER → 2021-12-11 | Outpatient (CLI) | payer MEDICARE, OTHER | LOC: CARD 13:00 | PROVIDERS: ATTEND Internal Medicine Cardiovascular Disease | DX: I11.9 Hypertensive heart disease without heart failure (principal) | CPT/HCPCS: 93306 ==